=== PATIENT | male | born 1965 | race African-American/Black ===

== ENCOUNTER 2016-10-28 11:44 | Emergency (ER) | payer OTHER ==
[2016-10-28] MEDS ORDERED: IPRATROPIUM-ALBUTEROL 3 ML NEB INHALATION STA (12:18)
--- NOTE | 2016-10-28 12:18 | ED ---
General Adult HPI - General Chief complaint: Upper Respiratory Infection Stated complaint: Dizzy/sweats Time Seen by Provider: 10/28/16 11:50 Source: patient, RN notes reviewed Mode of arrival: ambulatory Limitations: no limitations - History of Present Illness Initial comments: This is a 51-year-old male with past medical history significant for diabetes hypertension and a previous heart attack. Patient comes in today because he has been having cold and hot sweats and been coughing a lot. Patient states the cough is a dry cough he's had no sputum production. Patient states he doesn 't know she's had a temperature as he doesn't own a thermometer. Patient denies any chest pain or palpitations. Patient denies being short of breath. Patient does admit that he is much more fatigued than normal. Patient denies any abdominal pain. Patient denies any nausea vomiting or diarrhea. Patient denies any back pain. Patient denies any dysuria hematuria urinary frequency. Patient denies being lightheaded dizzy or having any near syncopal episodes. - Related Data Home Medications Medication Instructions Recorded Confirmed Aspirin 81 mg PO DAILY 09/11/15 10/28/16 Atenolol 25 mg PO BID 09/11/15 10/28/16 Insulin Glargine [Lantus] 50 unit SQ DAILY 09/11/15 10/28/16 Insulin Glulisine [Apidra] 5 unit SQ AC-TID 09/11/15 10/28/16 Latanoprost Ophth [Xalatan 0.005%] 1 drops RIGHT EYE HS 09/11/15 10/28/16 Lisinopril [Zestril] 20 mg PO DAILY 09/11/15 10/28/16 amLODIPine [Norvasc] 10 mg PO DAILY 09/11/15 10/28/16 metFORMIN HCL [Glucophage] 500 mg PO BID 09/11/15 10/28/16 Brimonidine Tartrate [Alphagan P 1 drops RIGHT EYE TID 10/28/16 10/28/16 0.2% Ophth Soln] Glimepiride [Amaryl] 1 mg PO AC-BRKFST 10/28/16 10/28/16 Insulin Glulisine [Apidra] See Protocol SQ AC-TID 02/07/17 02/07/17 Previous Rx's Medication Instructions Recorded Albuterol Inhaler [Ventolin Hfa 1 - 2 puff INHALATION Q6HR PRN #2 10/28/16 Inhaler] puff Azithromycin [Zithromax Tri-Roderick] 500 mg PO DAILY #3 tab 10/28/16 Allergies Allergy/AdvReac Type Severity Reaction Status Date / Time ibuprofen Allergy Swelling Verified 10/28/16 12:19 pregabalin [From Lyrica] Allergy Swelling Verified 10/28/16 12:19 Review of Systems ROS Statement: Those systems with pertinent positive or pertinent negative responses have been documented in the HPI. ROS Other: All systems not noted in ROS Statement are negative. Past Medical History Past Medical History: Diabetes Mellitus, Hypertension Additional Past Medical History / Comment(s): uvitis glaucoma History of Any Multi-Drug Resistant Organisms: None Reported Past Surgical History: Hernia Repair Additional Past Surgical History / Comment(s): eye surg implant Past Psychological History: No Psychological Hx Reported Smoking Status: Former smoker Past Alcohol Use History: Rare Past Drug Use History: Marijuana General Exam - General Exam Comments Initial Comments: GENERAL: Patient is well-developed and well-nourished. Patient is nontoxic and well- hydrated and is in mild distress. ENT: Neck is soft and supple. No significant lymphadenopathy is noted. Oropharynx is clear. Moist mucous membranes. Neck has full range of motion without eliciting any pain. EYES: The sclera were anicteric and conjunctiva were pink and moist. Extraocular movements were intact and pupils were equal round and reactive to light. Eyelids were unremarkable. PULMONARY: Patient has a history wheezing CARDIOVASCULAR: There is a regular rate and rhythm without any murmurs gallops or rubs. ABDOMEN: Soft and nontender with normal bowel sounds. No palpable organomegaly was noted. There is no palpable pulsatile mass. SKIN: Skin is clear with no lesions or rashes and otherwise unremarkable. NEUROLOGIC: Patient is alert and oriented x3. Cranial nerves II through XII are grossly intact. Motor and sensory are also intact. Normal speech, volume and content. Symmetrical smile. MUSCULOSKELETAL: Normal extremities with adequate strength and full range of motion. LYMPHATICS: No significant lymphadenopathy is noted PSYCHIATRIC: Normal psychiatric evaluation. Limitations: no limitations Course Vital Signs 10/28/16 10/28/16 10/28/16 11:48 12:56 13:01 Temperature 97.4 F L Pulse Rate 63 64 68 Respiratory 17 Rate Blood Pressure 165/85 O2 Sat by Pulse 97 Oximetry 10/28/16 13:35 Temperature 98.3 F Pulse Rate 63 Respiratory 20 Rate Blood Pressure 147/83 O2 Sat by Pulse 96 Oximetry Medical Decision Making - Medical Decision Making EKG shows sinus bradycardia 57 bpm UT interval is 154 QRS is 82 QT interval 418 QTC is 406. Patient has T-wave inversions in leads II, III, and F aVF and leads V4 V5 and V6. After the patient received an albuterol treatment the wheezing was completely resolved. She stated he felt back to his baseline - Lab Data Result diagrams: 10/28/16 12:41 10/28/16 12:41 Lab Results 10/28/16 10/28/16 10/28/16 Range/Units 12:41 12:41 12:41 WBC 5.8 (3.8-10.6) k/uL RBC 4.66 (4.30-5.90) m/uL Hgb 14.2 (13.0-17.5) gm/dL Hct 42.1 (39.0-53.0) % MCV 90.3 (80.0-100.0) fL MCH 30.5 (25.0-35.0) pg MCHC 33.8 (31.0-37.0) g/dL RDW 12.4 (11.5-15.5) % Plt Count 256 (150-450) k/uL Neutrophils % 51 % Lymphocytes % 36 % Monocytes % 7 % Eosinophils % 3 % Basophils % 1 % Neutrophils # 3.0 (1.3-7.7) k/uL Lymphocytes # 2.1 (1.0-4.8) k/uL Monocytes # 0.4 (0-1.0) k/uL Eosinophils # 0.2 (0-0.7) k/uL Basophils # 0.0 (0-0.2) k/uL Sodium 137 (137-145) mmol/L Potassium 4.4 (3.5-5.1) mmol/L Chloride 100 (98-107) mmol/L Carbon Dioxide 26 (22-30) mmol/L Anion Gap 11 mmol/L BUN 14 (9-20) mg/dL Creatinine 0.97 (0.66-1.25) mg/dL Est GFR (MDRD) Af Amer >60 (>60 ml/min/1.73 sqM) Est GFR (MDRD) Non-Af >60 (>60 ml/min/1.73 sqM) Glucose 276 H (74-99) mg/dL Calcium 9.4 (8.4-10.2) mg/dL Magnesium 1.8 (1.6-2.3) mg/dL Total Bilirubin 0.9 (0.2-1.3) mg/dL AST 26 (17-59) U/L ALT 43 (21-72) U/L Alkaline Phosphatase 74 (38-126) U/L Total Creatine Kinase 266 H (55-170) U/L CK-MB (CK-2) 1.9 (0.0-2.4) ng/mL CK-MB (CK-2) Rel Index 0.7 Troponin I <0.012 (0.000-0.034) ng/mL NT-Pro-B Natriuret Pep pg/mL Total Protein 7.3 (6.3-8.2) g/dL Albumin 4.2 (3.5-5.0) g/dL 10/28/16 Range/Units 12:41 WBC (3.8-10.6) k/uL RBC (4.30-5.90) m/uL Hgb (13.0-17.5) gm/dL Hct (39.0-53.0) % MCV (80.0-100.0) fL MCH (25.0-35.0) pg MCHC (31.0-37.0) g/dL RDW (11.5-15.5) % Plt Count (150-450) k/uL Neutrophils % % Lymphocytes % % Monocytes % % Eosinophils % % Basophils % % Neutrophils # (1.3-7.7) k/uL Lymphocytes # (1.0-4.8) k/uL Monocytes # (0-1.0) k/uL Eosinophils # (0-0.7) k/uL Basophils # (0-0.2) k/uL Sodium (137-145) mmol/L Potassium (3.5-5.1) mmol/L Chloride (98-107) mmol/L Carbon Dioxide (22-30) mmol/L Anion Gap mmol/L BUN (9-20) mg/dL Creatinine (0.66-1.25) mg/dL Est GFR (MDRD) Af Amer (>60 ml/min/1.73 sqM) Est GFR (MDRD) Non-Af (>60 ml/min/1.73 sqM) Glucose (74-99) mg/dL Calcium (8.4-10.2) mg/dL Magnesium (1.6-2.3) mg/dL Total Bilirubin (0.2-1.3) mg/dL AST (17-59) U/L ALT (21-72) U/L Alkaline Phosphatase (38-126) U/L Total Creatine Kinase (55-170) U/L CK-MB (CK-2) (0.0-2.4) ng/mL CK-MB (CK-2) Rel Index Troponin I (0.000-0.034) ng/mL NT-Pro-B Natriuret Pep 61 pg/mL Total Protein (6.3-8.2) g/dL Albumin (3.5-5.0) g/dL Disposition Clinical Impression: Bronchitis Disposition: HOME SELF-CARE Prescriptions: Albuterol Inhaler [Ventolin Hfa Inhaler] 1 - 2 puff INHALATION Q6HR PRN #2 puff PRN Reason: Difficulty breathing Azithromycin [Zithromax Tri-Roderick] 500 mg PO DAILY #3 tab Referrals: Betito Romo MD [Primary Care Provider] - 1-2 days Time of Disposition: 14:26
[2016-10-28 12:51] LABS: Basophils % (A) 1 %; CH 31.3; CHCM 34.8; Eosinophils # (A) 0.2 k/uL (0-0.7); Eosinophils % (A) 3 %; HCT 42.1 % (39.0-53.0); HDW 2.57; HGB 14.2 gm/dL (13.0-17.5); Luc # (Auto) 0.18; Luc % (Auto) 3; Lymphocytes # (A) 2.1 k/uL (1.0-4.8); Lymphocytes % (A) 36 %; MCH 30.5 pg (25.0-35.0); MCHC 33.8 g/dL (31.0-37.0); MCV 90.3 fL (80.0-100.0); Monocytes # (A) 0.4 k/uL (0-1.0); Monocytes % (A) 7 %; Neutrophils % (A) 51 %; RBC 4.66 m/uL (4.30-5.90); RDW 12.4 % (11.5-15.5); WBC 5.8 k/uL (3.8-10.6); WBC (Perox) 6.05
[2016-10-28 13:06] LABS: ALT 43 U/L (21-72); AST 26 U/L (17-59); Alkaline Phosphatase 74 U/L (38-126); Anion Gap 11 mmol/L; Blood Urea Nitrogen 14 mg/dL (9-20); Calcium 9.4 mg/dL (8.4-10.2); Carbon Dioxide 26 mmol/L (22-30); Chloride 100 mmol/L (98-107); Glucose 276 mg/dL (74-99); Magnesium 1.8 mg/dL (1.6-2.3); Non-African American GFR(MDRD) >60 (>60 ml/min/1.73 sqM); Potassium 4.4 mmol/L (3.5-5.1); Sodium 137 mmol/L (137-145); Total Bilirubin 0.9 mg/dL (0.2-1.3); Total Protein 7.3 g/dL (6.3-8.2)
[2016-10-28 13:15] LABS: Creatine Kinase 266 U/L (55-170)
[2016-10-28 13:28] LABS: Creatine Kinase MB 1.9 ng/mL (0.0-2.4); Troponin I <0.012 ng/mL (0.000-0.034)
--- NOTE | 2016-10-28 13:39 | XR ---
EXAMINATION TYPE: XR chest 2V DATE OF EXAM: 10/28/2016 1:32 PM COMPARISON: 06/13/2015 HISTORY: Chest pain and cough FINDINGS: The lungs are clear and there is no pneumothorax, pleural effusion, or focal pneumonia. IMPRESSION: 1. No acute process.
[2016-10-28 14:50] VITALS: BP 134/84; RESP 18; TEMP 98
[2016-10-28 14:51] VITALS: PULSE 70
[2016-10-29 18:18] LABS: Hemoglobin A1C 10.2 % (4.2-6.1)
== END 2016-10-28 14:55 | disposition home or self-care (01) ==
LOC: EC 11:44
DX: J40 Bronchitis, not specified as acute or chronic (principal); R00.1 Bradycardia, unspecified; E11.9 Type 2 diabetes mellitus without complications; I10 Essential (primary) hypertension; Z87.891 Personal history of nicotine dependence; Z79.4 Long term (current) use of insulin; Z79.899 Other long term (current) drug therapy; Z88.6 Allergy status to analgesic agent; Z88.8 Allergy status to other drugs, medicaments and biological substances; Z79.82 Long term (current) use of aspirin
CPT/HCPCS: 36415; 71020; 80053; 82550; 82553; 83036; 83735; 83880; 84484; 85025; 87040; 93005; 94640; 99284

== ENCOUNTER 2017-04-13 13:32 | Emergency (ER) | payer OTHER ==
[2017-04-13 13:43] VITALS: RESP 18
[2017-04-13] MEDS ORDERED: ORPHENADRINE 30 MG/ML 2 ML VIAL IM STA (13:50)
--- NOTE | 2017-04-13 14:16 | ED ---
Back Pain HPI - General Chief Complaint: Back Pain/Injury Stated Complaint: back & knee pain Time Seen by Provider: 04/13/17 13:45 Source: patient, RN notes reviewed, old records reviewed Limitations: no limitations - History of Present Illness Initial Comments: This is a 51-year-old male presents emergency Department chief complaint of lower back pain and left knee pain after a fall last week. Patient reports that he tripped and twisted and fell on his left knee and back. Patient reports that he has a history of patella repair 10 years ago. He reports that he may have caused an injury to his knee. He reports there is been some swelling over the lateral aspect of the knee. He states that he was in the pharmacy picking up his medications when he could not take the pain anymore and felt that he needed basis seen. Patient reports that he has no saddle anesthesias, urinary or bowel incontinence, or blood in his urinary abdominal pain. Reports normal bowel movements. He states that he has no chest pain, shortness of breath, nausea or vomiting or any other symptoms. - Related Data Home Medications Medication Instructions Recorded Confirmed Aspirin 81 mg PO DAILY 09/11/15 10/28/16 Atenolol 25 mg PO BID 09/11/15 10/28/16 Insulin Glargine [Lantus] 50 unit SQ DAILY 09/11/15 10/28/16 Insulin Glulisine [Apidra] 5 unit SQ AC-TID 09/11/15 10/28/16 Latanoprost Ophth [Xalatan 0.005%] 1 drops RIGHT EYE HS 09/11/15 10/28/16 Lisinopril [Zestril] 20 mg PO DAILY 09/11/15 10/28/16 amLODIPine [Norvasc] 10 mg PO DAILY 09/11/15 10/28/16 metFORMIN HCL [Glucophage] 500 mg PO BID 09/11/15 10/28/16 Brimonidine Tartrate [Alphagan P 1 drops RIGHT EYE TID 10/28/16 10/28/16 0.2% Ophth Soln] Glimepiride [Amaryl] 1 mg PO AC-BRKFST 10/28/16 10/28/16 Insulin Glulisine [Apidra] See Protocol SQ AC-TID 10/28/16 10/28/16 Previous Rx's Medication Instructions Recorded Albuterol Inhaler [Ventolin Hfa 1 - 2 puff INHALATION Q6HR PRN #2 10/28/16 Inhaler] puff Azithromycin [Zithromax Tri-Roderick] 500 mg PO DAILY #3 tab 10/28/16 Cyclobenzaprine [Flexeril] 10 mg PO TID #20 tab 04/13/17 HYDROcodone/APAP 5-325MG [[place] 1 tab PO Q6HR PRN #15 tab 04/13/17 5-325] Naproxen 500 mg PO BID #20 tablet 04/13/17 Allergies Allergy/AdvReac Type Severity Reaction Status Date / Time ibuprofen Allergy Swelling Verified 04/13/17 13:43 pregabalin [From Lyrica] Allergy Swelling Verified 04/13/17 13:43 Review of Systems ROS Statement: Those systems with pertinent positive or pertinent negative responses have been documented in the HPI. ROS Other: All systems not noted in ROS Statement are negative. Past Medical History Past Medical History: Diabetes Mellitus, Hyperlipidemia, Hypertension Additional Past Medical History / Comment(s): uvitis glaucoma History of Any Multi-Drug Resistant Organisms: None Reported Past Surgical History: Hernia Repair Additional Past Surgical History / Comment(s): eye surg implant Past Psychological History: No Psychological Hx Reported Smoking Status: Former smoker Past Alcohol Use History: Rare Past Drug Use History: Marijuana General Exam - General Exam Comments Initial Comments: Well-appearing 51-year-old male. No acute distress. Limitations: no limitations General appearance: alert, in no apparent distress Head exam: Present: atraumatic, normocephalic, normal inspection Eye exam: Present: normal appearance, PERRL, EOMI. Absent: scleral icterus, conjunctival injection, periorbital swelling ENT exam: Present: normal exam, mucous membranes moist Neck exam: Present: normal inspection. Absent: tenderness, meningismus, lymphadenopathy Respiratory exam: Present: normal lung sounds bilaterally. Absent: respiratory distress, wheezes, rales, rhonchi, stridor Cardiovascular Exam: Present: regular rate, normal rhythm, normal heart sounds. Absent: systolic murmur, diastolic murmur, rubs, gallop, clicks GI/Abdominal exam: Present: soft, normal bowel sounds. Absent: distended, tenderness, guarding, rebound, rigid Extremities exam: Present: normal inspection, full ROM, normal capillary refill , other (Evidence of well-healed scars from bilateral knees. Patient has some swelling over the lateral aspect of the left knee. Patient is able to bear weight.). Absent: tenderness, pedal edema, joint swelling, calf tenderness Back exam: Present: normal inspection, tenderness, paraspinal tenderness, vertebral tenderness (Lumbar vertebral tenderness and paraspinal muscle spasm.) Neurological exam: Present: alert, oriented X3, CN II-XII intact Psychiatric exam: Present: normal affect, normal mood Skin exam: Present: warm, dry, intact, normal color. Absent: rash Course Vital Signs 04/13/17 13:40 Temperature 99 F Pulse Rate 53 L Respiratory 18 Rate Blood Pressure 186/82 O2 Sat by Pulse 100 Oximetry Medical Decision Making - Medical Decision Making This is a 51-year-old male presents emergency Department chief complaint of lower back pain and left knee pain after a fall last week. Patient reports that he tripped and twisted and fell on his left knee and back. Patient reports that he has a history of patella repair 10 years ago. He reports that he may have caused an injury to his knee. He reports there is been some swelling over the lateral aspect of the knee. He states that he was in the pharmacy picking up his medications when he could not take the pain anymore and felt that he needed basis seen. Patient has full range of motion of the knee and lumbar spine. There is some evidence of paraspinal muscle spasm. Patient was given IM Norflex. Patient will be discharged with a prescription for pain medication and anti-inflammatory medicine as well as muscle relaxers. Patient agrees to treatment plan will comply. Return parameters were discussed. Discussed also following up with orthopedic physician. - Radiology Data Radiology results: report reviewed Degenerative disc disease and additional findings show no acute fracture or subluxation. Vascular calcification within the aorta and iliac region. Slight spinal curvature. The x-ray was reviewed and shows negative for any acute processes has osteoarthritis. Disposition Clinical Impression: Osteoarthritis of left knee, Lower back pain Disposition: HOME SELF-CARE Condition: Good Instructions: Acute Low Back Pain (ED), Osteoarthritis (ED) Additional Instructions: Patient advised to rest, ice, and elevate extremity. Also apply a warm heating pad over her back. Take some pain medication and muscle relaxers as prescribed. Return to the emergency department if any alarming signs or symptoms occur. Also recommending following up with orthopedic physician. Prescriptions: Cyclobenzaprine [Flexeril] 10 mg PO TID #20 tab HYDROcodone/APAP 5-325MG [[place] 5-325] 1 tab PO Q6HR PRN #15 tab PRN Reason: Pain Naproxen 500 mg PO BID #20 tablet Referrals: Betito Romo MD [Primary Care Provider] - 1-2 days Hansel Treadwell MD [STAFF PHYSICIAN] - 1-2 days Time of Disposition: 14:38
--- NOTE | 2017-04-13 14:32 | XR ---
EXAMINATION TYPE: XR knee complete LT , 3 VIEWS DATE OF EXAM ORDERED: 04/13/2017 HISTORY: Pain. COMPARISON: None. FINDINGS: There is peaking of intercondylar spines. There is mild medial joint space loss. There is no chondrocalcinosis. There is no joint effusion. Note is made of vascular calcification. IMPRESSION: OSTEOARTHRITIS.
--- NOTE | 2017-04-13 14:34 | XR ---
Lumbar spine HISTORY: Trauma and pain 3 views of the lumbar spine No comparisons There is spondylosis present. Lumbar vertebral bodies show preserved height and alignment. Mild loss of disc height and intervertebral levels. There is vascular calcification within the aortoiliac regio ns. There may be a slight spinal curvature. The patient may be rotated. IMPRESSION: Degenerative disc disease and additional findings above. No acute fracture or subluxation is evident. Consider bone scan or MRI for increased sensitivity as indicated.
[2017-04-13] MEDS ORDERED: ACET/COD 300 MG/30 MG STARTER PACK 6 TAB BTL PO STA (14:41)
[2017-04-13 14:49] VITALS: BP 177/84; PULSE 51; TEMP 98.1
== END 2017-04-13 14:50 | disposition home or self-care (01) ==
LOC: EC 13:32
DX: M17.12 Unilateral primary osteoarthritis, left knee (principal); M54.5 Low back pain; E11.9 Type 2 diabetes mellitus without complications; I10 Essential (primary) hypertension; Z87.891 Personal history of nicotine dependence; Z88.6 Allergy status to analgesic agent; Z88.8 Allergy status to other drugs, medicaments and biological substances; Z79.82 Long term (current) use of aspirin; Z79.4 Long term (current) use of insulin; Z79.84 Long term (current) use of oral hypoglycemic drugs; Z79.899 Other long term (current) drug therapy
CPT/HCPCS: 72100; 73562; 99284; 96372; J2360

== ENCOUNTER 2017-11-20 14:44 | Emergency (ER) | payer MEDICARE, OTHER ==
[2017-11-20] MEDS ORDERED: DICYCLOMINE 10 MG/ML 2 ML AMP IM STA (17:01)
[2017-11-20] MEDS ORDERED: ONDANSETRON 4 MG/2 ML VIAL IVP STA (17:01)
[2017-11-20] MEDS ORDERED: RX INFO: IV CONTRAST WAS GIVEN 1 EACH MISC MISCELLANE PRN (17:01)
[2017-11-20] MEDS ORDERED: SODIUM CHLORIDE 0.9% 500 ML IV STA (17:01)
[2017-11-20] MEDS ORDERED: FAMOTIDINE 20 MG/2 ML VIAL IV STA (17:02)
--- NOTE | 2017-11-20 17:04 | ED ---
General Adult HPI - General Chief complaint: Abdominal Pain Stated complaint: Abd pain Time Seen by Provider: 11/20/17 16:56 Source: patient, RN notes reviewed Mode of arrival: ambulatory Limitations: no limitations - History of Present Illness Initial comments: Patient is a pleasant 52-year-old diabetic male presenting to the emergency Department with abdominal discomfort. Patient has had some symptoms for the past few weeks, usually at nighttime. Symptoms have been worse today and more steady. This morning patient did have 3 cups of coffee all over by a Barbara cheese steak, and fried potatoes and bread. Burning has been more diffuse today. Previously discomfort was more in the upper left abdomen. No history of similar symptoms prior to the past few weeks. No fevers. Patient has nausea without vomiting. No constipation or diarrhea. - Related Data Home Medications Medication Instructions Recorded Confirmed Aspirin 81 mg PO DAILY 09/11/15 11/20/17 Atenolol 25 mg PO BID 09/11/15 11/20/17 Insulin Glargine [Lantus] 50 unit SQ HS 09/11/15 11/20/17 Insulin Glulisine [Apidra] 5 unit SQ AC-TID 09/11/15 11/20/17 Latanoprost Ophth [Xalatan 0.005%] 1 drops RIGHT EYE HS 09/11/15 11/20/17 Lisinopril [Zestril] 20 mg PO DAILY 09/11/15 11/20/17 amLODIPine [Norvasc] 10 mg PO DAILY 09/11/15 11/20/17 metFORMIN HCL [Glucophage] 500 mg PO BID 09/11/15 11/20/17 Brimonidine Tartrate [Alphagan P 1 drops RIGHT EYE TID 10/28/16 11/20/17 0.2% Ophth Soln] Glimepiride [Amaryl] 1 mg PO AC-BRKFST 10/28/16 11/20/17 Insulin Glulisine [Apidra] See Protocol SQ AC-TID 10/28/16 11/20/17 Naproxen 500 mg PO BID PRN 11/20/17 11/20/17 Previous Rx's Medication Instructions Recorded Albuterol Inhaler [Ventolin Hfa 1 - 2 puff INHALATION Q6HR PRN #2 10/28/16 Inhaler] puff Cyclobenzaprine [Flexeril] 10 mg PO TID #20 tab 04/13/17 HYDROcodone/APAP 5-325MG [Martin 1 tab PO Q6HR PRN #15 tab 04/13/17 5-325] Famotidine [Pepcid] 20 mg PO BID #30 tablet 11/20/17 Metoclopramide HCl [Reglan] 10 mg PO Q6HR PRN #15 tablet 11/20/17 Allergies Allergy/AdvReac Type Severity Reaction Status Date / Time atorvastatin [From Lipitor] Allergy Swelling Verified 11/20/17 17:04 ibuprofen Allergy Swelling Verified 11/20/17 17:04 pregabalin [From Lyrica] Allergy Swelling Verified 11/20/17 17:04 Review of Systems ROS Statement: Those systems with pertinent positive or pertinent negative responses have been documented in the HPI. ROS Other: All systems not noted in ROS Statement are negative. Constitutional: Denies: fever Eyes: Denies: eye pain ENT: Denies: ear pain Respiratory: Denies: cough Cardiovascular: Denies: chest pain Endocrine: Denies: fatigue Gastrointestinal: Reports: abdominal pain, nausea. Denies: vomiting, diarrhea, constipation Genitourinary: Denies: dysuria Musculoskeletal: Denies: back pain Skin: Denies: rash Neurological: Denies: weakness Past Medical History Past Medical History: Diabetes Mellitus, Hyperlipidemia, Hypertension Additional Past Medical History / Comment(s): uvitis glaucoma History of Any Multi-Drug Resistant Organisms: None Reported Past Surgical History: Hernia Repair, Orthopedic Surgery Additional Past Surgical History / Comment(s): eye surg implant , bilateral knee Past Psychological History: No Psychological Hx Reported Smoking Status: Former smoker Past Alcohol Use History: Rare Past Drug Use History: Marijuana General Exam Limitations: no limitations General appearance: alert, in no apparent distress Head exam: Present: atraumatic Eye exam: Present: normal appearance, PERRL ENT exam: Present: normal oropharynx Neck exam: Present: normal inspection Respiratory exam: Present: normal lung sounds bilaterally Cardiovascular Exam: Present: regular rate, normal rhythm Expanded Peripheral pulses: 2+: Posterior Tibialis (R), Posterior Tibialis (L) GI/Abdominal exam: Present: soft, tenderness (Mild diffuse tenderness, more moderate towards the epigastrium.), normal bowel sounds. Absent: distended, guarding, rebound, rigid, pulsatile mass Extremities exam: Present: normal inspection. Absent: pedal edema, calf tenderness Neurological exam: Present: alert Psychiatric exam: Present: normal affect, normal mood Skin exam: Present: normal color Course Vital Signs 11/20/17 11/20/17 11/20/17 14:59 17:21 18:29 Temperature 98 F Pulse Rate 60 54 L 54 L Respiratory 16 18 18 Rate Blood Pressure 151/69 170/75 186/86 O2 Sat by Pulse 100 98 98 Oximetry 11/20/17 19:06 Temperature Pulse Rate 51 L Respiratory 18 Rate Blood Pressure 177/81 O2 Sat by Pulse 97 Oximetry Medical Decision Making - Medical Decision Making Patient reevaluated and resting comfortably in bed. Abdomen soft and nontender. Patient states symptoms have improved however not resolved with medication. Patient does request something to coat her stomach prior to discharge. Patient is updated on results and need for follow-up. Patient adds he will follow-up with his doctor on Thursday. - Lab Data Result diagrams: 11/20/17 17:19 11/20/17 17:19 Lab Results 11/20/17 11/20/17 11/20/17 Range/Units 17:19 17:19 17:19 WBC 7.0 (3.8-10.6) k/uL RBC 4.20 L (4.30-5.90) m/uL Hgb 12.5 L (13.0-17.5) gm/dL Hct 37.7 L (39.0-53.0) % MCV 89.7 (80.0-100.0) fL MCH 29.8 (25.0-35.0) pg MCHC 33.2 (31.0-37.0) g/dL RDW 12.6 (11.5-15.5) % Plt Count 259 (150-450) k/uL Neutrophils % 40 % Lymphocytes % 45 % Monocytes % 6 % Eosinophils % 5 % Basophils % 1 % Neutrophils # 2.8 (1.3-7.7) k/uL Lymphocytes # 3.2 (1.0-4.8) k/uL Monocytes # 0.4 (0-1.0) k/uL Eosinophils # 0.3 (0-0.7) k/uL Basophils # 0.1 (0-0.2) k/uL PT 9.9 (9.0-12.0) sec INR 1.0 (<1.2) APTT 22.2 (22.0-30.0) sec Sodium 139 (137-145) mmol/L Potassium 4.7 (3.5-5.1) mmol/L Chloride 103 (98-107) mmol/L Carbon Dioxide 28 (22-30) mmol/L Anion Gap 8 mmol/L BUN 16 (9-20) mg/dL Creatinine 1.10 (0.66-1.25) mg/dL Est GFR (MDRD) Af Amer >60 (>60 ml/min/1.73 sqM) Est GFR (MDRD) Non-Af >60 (>60 ml/min/1.73 sqM) Glucose 157 H (74-99) mg/dL Calcium 10.3 H (8.4-10.2) mg/dL Total Bilirubin 0.6 (0.2-1.3) mg/dL AST 27 (17-59) U/L ALT 40 (21-72) U/L Alkaline Phosphatase 64 (38-126) U/L Total Protein 7.1 (6.3-8.2) g/dL Albumin 4.2 (3.5-5.0) g/dL Amylase 122 H (30-110) U/L Lipase 152 (23-300) U/L Urine Color Urine Appearance (Clear) Urine pH (5.0-8.0) Ur Specific [place] (1.001-1.035) Urine Protein (Negative) Urine Glucose (UA) (Negative) Urine Ketones (Negative) Urine Blood (Negative) Urine Nitrite (Negative) Urine Bilirubin (Negative) Urine Urobilinogen (<2.0) mg/dL Ur Leukocyte Esterase (Negative) Urine RBC (0-5) /hpf Urine WBC (0-5) /hpf Ur Squamous Epith Cells (0-4) /hpf Urine Bacteria (None) /hpf Hyaline Casts (0-2) /lpf Urine Mucus (None) /hpf 11/20/17 Range/Units 17:19 WBC (3.8-10.6) k/uL RBC (4.30-5.90) m/uL Hgb (13.0-17.5) gm/dL Hct (39.0-53.0) % MCV (80.0-100.0) fL MCH (25.0-35.0) pg MCHC (31.0-37.0) g/dL RDW (11.5-15.5) % Plt Count (150-450) k/uL Neutrophils % % Lymphocytes % % Monocytes % % Eosinophils % % Basophils % % Neutrophils # (1.3-7.7) k/uL Lymphocytes # (1.0-4.8) k/uL Monocytes # (0-1.0) k/uL Eosinophils # (0-0.7) k/uL Basophils # (0-0.2) k/uL PT (9.0-12.0) sec INR (<1.2) APTT (22.0-30.0) sec Sodium (137-145) mmol/L Potassium (3.5-5.1) mmol/L Chloride (98-107) mmol/L Carbon Dioxide (22-30) mmol/L Anion Gap mmol/L BUN (9-20) mg/dL Creatinine (0.66-1.25) mg/dL Est GFR (MDRD) Af Amer (>60 ml/min/1.73 sqM) Est GFR (MDRD) Non-Af (>60 ml/min/1.73 sqM) Glucose (74-99) mg/dL Calcium (8.4-10.2) mg/dL Total Bilirubin (0.2-1.3) mg/dL AST (17-59) U/L ALT (21-72) U/L Alkaline Phosphatase (38-126) U/L Total Protein (6.3-8.2) g/dL Albumin (3.5-5.0) g/dL Amylase (30-110) U/L Lipase (23-300) U/L Urine Color Yellow Urine Appearance Clear (Clear) Urine pH 6.0 (5.0-8.0) Ur Specific [place] 1.025 (1.001-1.035) Urine Protein 1+ H (Negative) Urine Glucose (UA) 3+ H (Negative) Urine Ketones Trace H (Negative) Urine Blood Negative (Negative) Urine Nitrite Negative (Negative) Urine Bilirubin Negative (Negative) Urine Urobilinogen 3.0 (<2.0) mg/dL Ur Leukocyte Esterase Moderate H (Negative) Urine RBC 4 (0-5) /hpf Urine WBC 16 H (0-5) /hpf Ur Squamous Epith Cells 2 (0-4) /hpf Urine Bacteria Rare H (None) /hpf Hyaline Casts 5 H (0-2) /lpf Urine Mucus Moderate H (None) /hpf - Radiology Data Radiology results: report reviewed (Computed tomography scan of the abdomen pelvis shows no acute process) Disposition Clinical Impression: Abdominal pain Disposition: HOME SELF-CARE Condition: Stable Instructions: Abdominal Pain (ED) Additional Instructions: Please follow-up with your primary care physician in the next day or 2 for recheck. Return for increased pain, fevers, worsening or changing symptoms or other concerns. Prescriptions: Famotidine [Pepcid] 20 mg PO BID #30 tablet Metoclopramide HCl [Reglan] 10 mg PO Q6HR PRN #15 tablet PRN Reason: Nausea Referrals: Betito Romo MD [Primary Care Provider] - 1-2 days Time of Disposition: 19:33
[2017-11-20 17:22] VITALS: RESP 18
[2017-11-20 17:36] LABS: Basophils # (A) 0.1 k/uL (0-0.2); Basophils % (A) 1 %; Eosinophils # (A) 0.3 k/uL (0-0.7); Eosinophils % (A) 5 %; HCT 37.7 % (39.0-53.0); HGB 12.5 gm/dL (13.0-17.5); Lymphocytes # (A) 3.2 k/uL (1.0-4.8); Lymphocytes % (A) 45 %; MCH 29.8 pg (25.0-35.0); MCHC 33.2 g/dL (31.0-37.0); MCV 89.7 fL (80.0-100.0); Mean Platelet Volume 7.5; Monocytes # (A) 0.4 k/uL (0-1.0); Monocytes % (A) 6 %; Neutrophils # (A) 2.8 k/uL (1.3-7.7); Neutrophils % (A) 40 %; Platelet Count 259 k/uL (150-450); RDW 12.6 % (11.5-15.5)
[2017-11-20 17:38] LABS: Appearance,Urine Clear (Clear); Bacteria,Urine Rare /hpf; Bilirubin,Urine Negative (Negative); Blood,Urine Negative (Negative); Color,Urine Yellow; Glucose,Urine (UA) 3+ (Negative); Hyaline Casts,Urine 5 /lpf (0-2); Ketones,Urine Trace (Negative); Leukocyte Esterase,Urine Moderate (Negative); Mucus,Urine Moderate /hpf; Protein,Urine 1+ (Negative); RBC,Urine 4 /hpf (0-5); Specific Gravity,Urine 1.025 (1.001-1.035); Squamous Epithelial Cell,Urine 2 /hpf (0-4); WBC,Urine 16 /hpf (0-5)
[2017-11-20 17:53] LABS: ALT 40 U/L (21-72); AST 27 U/L (17-59); Albumin 4.2 g/dL (3.5-5.0); Alkaline Phosphatase 64 U/L (38-126); Amylase 122 U/L (30-110); Anion Gap 8 mmol/L; Blood Urea Nitrogen 16 mg/dL (9-20); Calcium 10.3 mg/dL (8.4-10.2); Carbon Dioxide 28 mmol/L (22-30); Chloride 103 mmol/L (98-107); Glucose 157 mg/dL (74-99); Lipase 152 U/L (23-300); Partial Thromboplastin Time 22.2 sec (22.0-30.0); Potassium 4.7 mmol/L (3.5-5.1); Prothrombin Time 9.9 sec (9.0-12.0); Sodium 139 mmol/L (137-145); Total Bilirubin 0.6 mg/dL (0.2-1.3); Total Protein 7.1 g/dL (6.3-8.2)
[2017-11-20] MEDS ORDERED: MORPHINE SULFATE 4 MG/ML SYRINGE IVP STA (18:28)
--- NOTE | 2017-11-20 18:47 | CT ---
EXAMINATION TYPE: CT abdomen pelvis w con DATE OF EXAM: 11/20/2017 COMPARISON: NONE HISTORY: Generalized abdominal burning x 1 month. Nausea and dark urine and dark stools. CT DLP: 1575 mGycm Automated exposure control for dose reduction was used. TECHNIQUE: Helical acquisition of images was performed from the lung bases through the pelvis. CONTRAST: Performed without Oral Contrast and with IV Contrast, patient injected with 100 mL of Omnipaque 300. FINDINGS: Lung bases are clear of infiltrate. There is no pleural effusion. Liver spleen pancreas gallbladder appear normal. Bile ducts are not dilated. There is no adrenal mass. Kidneys show satisfactory contrast opacification. There is no hydronephrosi s. There is no retroperitoneal adenopathy. There is no ascites. Appendix appears normal. Bladder dist ends smoothly. There is no evidence of a pelvic mass. There is no free fluid in the pelvis. I see no intestinal wall thickening. There are no dilated loops. The bony structures appear intact. There is n o sign of free air. There is no sign of a hernia. IMPRESSION: NORMAL APPENDIX. NO SIGN OF ACUTE ABDOMEN AND PELVIS. I DO NOT SEE A CAUSE FOR THE PATIENT'S SYMPTOMS .
[2017-11-20] MEDS ORDERED: MAG HYDROX/AL HYDROX/SIMETH 30 ML, HYOSCYAMINE ELIXIR 10 ML, CIMETIDINE HCL 300 MG, LID... PO STA ×4 (19:31)
[2017-11-20] MEDS ORDERED: ATENOLOL 25 MG TAB PO STA (20:01)
[2017-11-20] MEDS ORDERED: LISINOPRIL 10 MG TAB PO STA (20:01)
[2017-11-20 20:15] VITALS: BP 185/96; PULSE 54; TEMP 98.1
== END 2017-11-20 20:14 | disposition home or self-care (01) ==
LOC: EC 14:44
DX: R10.12 Left upper quadrant pain (principal); R11.0 Nausea; E11.9 Type 2 diabetes mellitus without complications; I10 Essential (primary) hypertension; Z87.891 Personal history of nicotine dependence; Z86.69 Personal history of other diseases of the nervous system and sense organs; Z79.82 Long term (current) use of aspirin; Z79.4 Long term (current) use of insulin; Z79.899 Other long term (current) drug therapy; Z88.8 Allergy status to other drugs, medicaments and biological substances; Z88.6 Allergy status to analgesic agent
CPT/HCPCS: 36415; 80053; 82150; 83690; 85025; 85610; 85730; 81001; 74177; 99284; 96374; 96375 ×2; 96361; 96372; J2270; J0500; J2405; Q9967

== ENCOUNTER 2017-12-08 11:33 | Day surgery (SDC) | payer MEDICARE, OTHER ==
[2017-12-08 13:23] VITALS: TEMP 97.5
[2017-12-08] MEDS ORDERED: INSULIN ASPART 100 UNIT/ML 1 ML 10 ML VIAL SQ ONE (13:28)
[2017-12-08 13:29] LABS: Glucose,Whole Blood 339 mg/dL (75-99)
[2017-12-08] MEDS ORDERED: LACTATED RINGERS 1,000 ML IV ONE (13:31)
[2017-12-08] MEDS ORDERED: GLYCOPYRROLATE 0.2 MG/ML 2 ML VIAL ONE (13:50)
[2017-12-08] MEDS ORDERED: LIDOCAINE 1% INJ 10MG/ML (20 ML MDV) ONE (13:50)
[2017-12-08] MEDS ORDERED: PROPOFOL 10 MG/ML 20 ML VIAL IV ONE (13:50)
[2017-12-08] MEDS ORDERED: fentaNYL (PF) 50 MCG/ML 2 ML AMP ONE (13:50)
[2017-12-08 14:29] LABS: Glucose,Whole Blood 275 mg/dL (75-99)
--- NOTE | 2017-12-08 14:31 | P.PCN ---
Date of Procedure: 12/08/17 Procedure(s) Performed: Procedures: 1. Esophagogastroduodenoscopy and biopsy. 2. Colonoscopy. Preoperative diagnosis: Burning abdominal pain and drop in hemoglobin. Postoperative diagnosis: 1. Small sliding hiatal hernia with no obvious esophagitis or complicated reflux disease. 2. Mild antral gastritis and duodenitis. 3. Normal colonoscopy. 4. Biopsies obtained from the duodenum, antrum and esophagus. Preparation: HalfLytely prep. Sedation: Was provided by anesthesia. Brief clinical history: The patient is a 52-year-old male who is scheduled for this evaluation because of burning abdominal pain and 2 g drop in his hemoglobin. The patient was in the emergency room earlier this month. CT of the abdomen did not show any obvious abnormalities. He was reported to have dark urine and stools at that time but the patient is saying that this was not a problem. No alarm symptoms Procedure: With the patient on his left lateral decubitus position and after informed consent and adequate sedation, I passed the Olympus-GIF 160 video upper endoscope through the cricopharyngeus down the esophagus GE junction was around 41 cm from the incisors and there was a small sliding hiatal hernia but no obvious esophagitis or complicated reflux disease. The endoscope was then passed into the stomach which was insufflated with air and inspected in detail including the retroflex view in the cardia. There was some mottling and erythema in the antrum but no ulcers or erosions. No pyloric channel ulcers. Duodenal bulb, post bulbar area and descending duodenum showed mottling, erythema and friability but no ulcers, erosions or bleeding. I obtained multiple biopsies from the duodenum, antrum and esophagus then the endoscope was withdrawn and I proceeded with the colonoscopy. Perianal area did not show any fissures or fistulas. There were no masses felt on digital rectal examination. The Olympus CFQ 160L video colonoscope was then inserted in the rectum in the usual fashion and advanced to the cecum. The colon showed healthy mucosa with no edema, erythema, friability, ulceration, exudation or spontaneous bleeding. No polyps or tumors were seen. No obvious diverticular disease or other pathology. I retroflexed the endoscope in the rectum before the endoscope was withdrawn. The patient tolerated the procedure well. Plan: The patient was reassured. Will await pathology results. Further plans can be made based on his course and biopsy results. He will follow-up with you as planned and I will keep you updated on his progress.
[2017-12-08 14:42] VITALS: BP 154/86; PULSE 94; RESP 16
== END 2017-12-08 14:53 | disposition home or self-care (01) ==
LOC: ORWHC2ENDO 11:33
DX: K29.50 Unspecified chronic gastritis without bleeding (principal); K21.0 Gastro-esophageal reflux disease with esophagitis; K44.9 Diaphragmatic hernia without obstruction or gangrene; K29.80 Duodenitis without bleeding; I10 Essential (primary) hypertension; I25.10 Atherosclerotic heart disease of native coronary artery without angina pectoris; Z95.5 Presence of coronary angioplasty implant and graft; G47.33 Obstructive sleep apnea (adult) (pediatric); E11.9 Type 2 diabetes mellitus without complications; I25.2 Old myocardial infarction; Z88.6 Allergy status to analgesic agent; Z88.8 Allergy status to other drugs, medicaments and biological substances; Z79.84 Long term (current) use of oral hypoglycemic drugs; Z79.1 Long term (current) use of non-steroidal anti-inflammatories (NSAID); Z79.82 Long term (current) use of aspirin; Z79.4 Long term (current) use of insulin; Z79.899 Other long term (current) drug therapy
CPT/HCPCS: 88305; 45378; 43239; J2001; J3010; J2704

== ENCOUNTER 2018-09-18 10:54 | Emergency (ER) | payer MEDICARE, OTHER ==
[2018-09-18 11:01] VITALS: BP 144/81; PULSE 54; RESP 20; TEMP 98.1
--- NOTE | 2018-09-18 11:40 | XR ---
EXAMINATION TYPE: XR foot complete LT DATE OF EXAM: 09/18/2018 COMPARISON: None HISTORY: Pain, diabetic neuropathy TECHNIQUE: Three-view left foot FINDINGS: Mild hallux valgus deformity is present. Joint spaces appear preserved. No acute fractures are evident. There may be some mild flattening of the plantar arch. No suspicious soft tissue abnormality or cortical erosion is evident. IMPRESSION: 1. No suspicious acute osseous abnormality.
--- NOTE | 2018-09-18 12:59 | ED ---
General Adult HPI - General Chief complaint: Extremity Problem,Nontraumatic Stated complaint: Foot pain Source: patient, RN notes reviewed, old records reviewed Mode of arrival: ambulatory Limitations: no limitations - History of Present Illness Initial comments: 52-year-old male patient with past medical history of diabetes presents to ED with 2 weeks of left foot pain. Patient reports that the pain is worse in his left great toe but he does have pain in all his toes. Patient denies any recent trauma to his foot or any recent lacerations or puncture wounds. Patient is ambulatory but does have pain in his left foot with ambulation. Patient denies any other symptoms. Patient denies fever chills, nausea vomiting diarrhea, chest pain, shortness of breath, abdominal pain. Systemic: Pt denies fatigue, myalgia, fever/chills, rash. Pt denies weakness, night sweats, weight loss. Neuro: Pt denies headache, visual disturbances, syncope or pre-syncope. HEENT: Pt denies ocular discharge or irritation, otalgia, rhinorrhea, pharyngitis or notable lymphadenopathy. Cardiopulmonary: Pt denies chest pain, SOB, heart palpitations, dyspnea on exertion. Abdominal/GI: Pt denies abdominal pain, n/v/d. : Pt denies dysuria, burning w/ urination, frequency/urgency. Denies new onset urinary or bowel incontinence. MSK: Pt denies loss of strength or function in extremities. Neuro: Pt denies new onset weakness, paresthesias. - Related Data Home Medications Medication Instructions Recorded Confirmed Atenolol 25 mg PO BID 09/11/15 09/18/18 Insulin Glargine [Lantus] 50 unit SQ HS 09/11/15 09/18/18 Latanoprost Ophth [Xalatan 0.005%] 1 drops RIGHT EYE HS 09/11/15 09/18/18 Lisinopril [Zestril] 20 mg PO DAILY 09/11/15 09/18/18 amLODIPine [Norvasc] 10 mg PO DAILY 09/11/15 09/18/18 metFORMIN HCL [Glucophage] 500 mg PO BID 09/11/15 09/18/18 Brimonidine Tartrate [Alphagan P 1 drops RIGHT EYE TID 10/28/16 09/18/18 0.2% Ophth Soln] Glimepiride [Amaryl] 1 mg PO AC-BRKFST 10/28/16 09/18/18 Cholecalciferol [Vitamin D3] 1,000 unit PO DAILY 09/18/18 09/18/18 Dorzolamide HCl/Pf [Dorzolamide 2% 1 drop BOTH EYES BID 09/18/18 09/18/18 Eye Drop] Insulin Aspart [NovoLOG 5 unit SQ TID-W/MEALS 09/18/18 09/18/18 (formulary)] [place]-3 Fatty Acids/Fish Oil [Fish 1 tab PO DAILY 09/18/18 09/18/18 Oil 1,000 mg Softgel] Prednisolone Acetate/Pf 1 drop LEFT EYE BID 09/18/18 09/18/18 [Prednisolone Acet 1% Eye Drop] Previous Rx's Medication Instructions Recorded Acetaminophen [Tylenol] 500 mg PO Q6HR PRN 5 Days #20 tab 09/18/18 Allergies Allergy/AdvReac Type Severity Reaction Status Date / Time atorvastatin [From Lipitor] Allergy Swelling Verified 09/18/18 12:33 ibuprofen Allergy Swelling Verified 09/18/18 12:33 pregabalin [From Lyrica] Allergy Swelling Verified 09/18/18 12:33 Review of Systems ROS Statement: Those systems with pertinent positive or pertinent negative responses have been documented in the HPI. ROS Other: All systems not noted in ROS Statement are negative. Past Medical History Past Medical History: Diabetes Mellitus, Hyperlipidemia, Hypertension Additional Past Medical History / Comment(s): uvitis glaucoma History of Any Multi-Drug Resistant Organisms: None Reported Past Surgical History: Hernia Repair, Orthopedic Surgery Additional Past Surgical History / Comment(s): eye surg implant , bilateral knee Past Psychological History: No Psychological Hx Reported Smoking Status: Former smoker Past Alcohol Use History: Rare Past Drug Use History: Marijuana General Exam - General Exam Comments Initial Comments: Constitutional: NAD, AOX3, Pt has pleasant affect. HEENT: NC/AT, trachea midline, neck supple, no lymphadenopathy. Posterior pharynx non erythematous, without exudates. External ears appear normal, without discharge. Mucous membranes moist. Eyes PERRLA, EOM intact. There is no scleral icterus. No pallor noted. Cardiopulmonary: RRR, no murmurs, rubs or gallops, no JVD noted. Lungs CTAB in anterior and posterior zapien. No peripheral edema. Abdominal exam: Abdomen soft and non-distended. Abdomen non-tender to palpation in all 4 quadrants. Bowel sounds active in LLQ. No hepatosplenomegaly. No ecchymosis Neuro: CN II-XII grossly intact. No nuchal rigidity. MSK: L great toe mildly erythematous, non cellulitic. toes 1-5 mildly tender to palpation. Sensation intact. Pt able to wiggle toes. plantar flexion and dorsiflexion of foot intact. Dorsalis pedis and posterior tibialis pulse +2 bilaterally. No posterior calf tenderness bilaterally, homans sign negative bilaterally. radial pulse +2 bilaterally. Sensation intact in upper and lower extremities. Full active ROM in upper and lower extremities, 5/5 stregnth. Limitations: no limitations Course Vital Signs 09/18/18 10:58 Temperature 98.1 F Pulse Rate 54 L Respiratory 20 Rate Blood Pressure 144/81 O2 Sat by Pulse 100 Oximetry Medical Decision Making - Medical Decision Making 52-year-old male patient with past medical history of diabetes presents to ED with 2 weeks of left foot pain. Patient reports that the pain is worse in his left great toe but he does have pain in all his toes. Patient denies any recent trauma to his foot or any recent lacerations or puncture wounds. Patient is ambulatory but does have pain in his left foot with ambulation. Patient denies any other symptoms. Patient denies fever chills, nausea vomiting diarrhea, chest pain, shortness of breath, abdominal pain. Physical exam displayed L great toe mildly erythematous, toes 1-5 mildly tender to palpation. Sensation intact. Pt able to wiggle toes. plantar flexion and dorsiflexion of foot intact. Dorsalis pedis and posterior tibialis pulse +2 bilaterally. Plain film of foot did not display any acute process. Patient diagnosed with gout. Patient to be prescribed tylenol because of ibuprofen allergy. Patient to follow-up with his primary care provider in 1-2 days. Patient to return to ED if new signs symptoms develop or symptoms worsen in anyway. Pt discussed and seen by Dr. Amador. Disposition Clinical Impression: Gout Disposition: HOME SELF-CARE Condition: Good Instructions: Gout (ED), Low Purine Diet (ED) Additional Instructions: Patient to adhere to previously discussed treatment plan and will take medication(s) as directed. Patient to follow up with PCP in 1-2 days. Patient to return to ED if symptoms do not improve. Prescriptions: Acetaminophen [Tylenol] 500 mg PO Q6HR PRN 5 Days #20 tab PRN Reason: Pain Is patient prescribed a controlled substance at d/c from ED?: No Referrals: Betito Romo MD [Primary Care Provider] - 1-2 days Time of Disposition: 13:19
== END 2018-09-18 13:30 | disposition home or self-care (01) ==
LOC: EC 10:54
DX: M10.9 Gout, unspecified (principal); I10 Essential (primary) hypertension; E11.9 Type 2 diabetes mellitus without complications; H40.40X0 Glaucoma secondary to eye inflammation, unspecified eye, stage unspecified; Z87.891 Personal history of nicotine dependence; Z88.6 Allergy status to analgesic agent; Z88.8 Allergy status to other drugs, medicaments and biological substances; Z79.4 Long term (current) use of insulin; Z79.52 Long term (current) use of systemic steroids; Z79.899 Other long term (current) drug therapy
CPT/HCPCS: 99284

== ENCOUNTER 2018-09-19 14:21 | Emergency (ER) | payer MEDICARE, OTHER ==
[2018-09-19 14:48] VITALS: TEMP 98.1
[2018-09-19] MEDS ORDERED: SODIUM CHLORIDE 0.9% 1,000 ML IV ONE (15:57)
[2018-09-19] MEDS ORDERED: HEPARIN SODIUM,PORCINE 10,000 UNIT/ML 1 ML VIAL IV ONE (15:58)
[2018-09-19] MEDS ORDERED: HEPARIN SODIUM,PORCINE 5,000 UNIT/ML 1 ML VIAL IV PRN (15:58)
[2018-09-19] MEDS ORDERED: SODIUM CHLORIDE 0.9% 1,000 ML IV SCH (16:00)
[2018-09-19] MEDS ORDERED: HEPARIN SOD,PORK IN 0.45% NACL 25,000 UNIT in 0.45% NACL 1 250ML.BAG IV SCH (16:00)
--- NOTE | 2018-09-19 16:47 | ED ---
Lower Extremity Injury HPI - General Source: patient, RN notes reviewed, old records reviewed Mode of arrival: ambulatory Limitations: no limitations <Lilian Queen - Last Filed: 09/19/18 16:42> <Sandeep Dempsey - Last Filed: 09/19/18 19:18> - General Chief Complaint: Extremity Injury, Lower Stated Complaint: Foot pain Time Seen by Provider: 09/19/18 15:08 - History of Present Illness Initial Comments: Patient is a 52-year-old male, with history of diabetes, hypertension and hyperlipidemia. He presents emergency Department chief complaint of left foot pain. He reports these been having severe pain for the past 2 days. He states that yesterday he was diagnosed with gout. He states that he has pain in each of his toes. Pain seems worse over the fourth and fifth digit. He also reports she's noticed bluish discoloration over the fourth fifth and first toe. Patient reports that he has had no fevers or chills. He reports that he has some pain with ambulation. Patient states that he is a nonsmoker. (Lilian Queen) - Related Data Home Medications Medication Instructions Recorded Confirmed Atenolol 25 mg PO BID 09/11/15 09/19/18 Insulin Glargine [Lantus] 50 unit SQ HS 09/11/15 09/19/18 Latanoprost Ophth [Xalatan 0.005%] 1 drops RIGHT EYE HS 09/11/15 09/19/18 Lisinopril [Zestril] 20 mg PO DAILY 09/11/15 09/19/18 amLODIPine [Norvasc] 10 mg PO DAILY 09/11/15 09/19/18 metFORMIN HCL [Glucophage] 500 mg PO BID 09/11/15 09/19/18 Brimonidine Tartrate [Alphagan P 1 drops RIGHT EYE TID 10/28/16 09/19/18 0.2% Ophth Soln] Glimepiride [Amaryl] 1 mg PO AC-BRKFST 10/28/16 09/19/18 Cholecalciferol [Vitamin D3] 1,000 unit PO DAILY 09/18/18 09/19/18 Dorzolamide HCl/Pf [Dorzolamide 2% 1 drop BOTH EYES BID 09/18/18 09/19/18 Eye Drop] Insulin Aspart [NovoLOG 5 unit SQ TID-W/MEALS 09/18/18 09/19/18 (formulary)] [place]-3 Fatty Acids/Fish Oil [Fish 1 tab PO DAILY 09/18/18 09/19/18 Oil 1,000 mg Softgel] Prednisolone Acetate/Pf 1 drop LEFT EYE BID 09/18/18 09/19/18 [Prednisolone Acet 1% Eye Drop] Previous Rx's Medication Instructions Recorded Acetaminophen [Tylenol] 500 mg PO Q6HR PRN 5 Days #20 tab 09/18/18 Allergies Allergy/AdvReac Type Severity Reaction Status Date / Time atorvastatin [From Lipitor] Allergy Swelling Verified 09/19/18 15:11 ibuprofen Allergy Swelling Verified 09/19/18 15:11 pregabalin [From Lyrica] Allergy Swelling Verified 09/19/18 15:11 Review of Systems ROS Other: All systems not noted in ROS Statement are negative. <Lilian Queen - Last Filed: 09/19/18 16:42> ROS Other: All systems not noted in ROS Statement are negative. <Sandeep Dempsey - Last Filed: 09/19/18 19:18> ROS Statement: Those systems with pertinent positive or pertinent negative responses have been documented in the HPI. Past Medical History Past Medical History: Diabetes Mellitus, Hyperlipidemia, Hypertension Additional Past Medical History / Comment(s): uvitis glaucoma History of Any Multi-Drug Resistant Organisms: None Reported Past Surgical History: Hernia Repair, Orthopedic Surgery Additional Past Surgical History / Comment(s): eye surg implant , bilateral knee Past Psychological History: No Psychological Hx Reported Smoking Status: Former smoker Past Alcohol Use History: Rare Past Drug Use History: Marijuana <Lilian Queen - Last Filed: 09/19/18 16:42> General Exam Limitations: no limitations General appearance: alert Head exam: Present: atraumatic, normocephalic, normal inspection Eye exam: Present: normal appearance, PERRL, EOMI. Absent: scleral icterus, conjunctival injection, periorbital swelling ENT exam: Present: normal exam, normal oropharynx, mucous membranes moist Neck exam: Present: normal inspection. Absent: tenderness, meningismus, lymphadenopathy Respiratory exam: Present: normal lung sounds bilaterally. Absent: respiratory distress, wheezes, rales, rhonchi, stridor Cardiovascular Exam: Present: regular rate, normal rhythm, normal heart sounds. Absent: systolic murmur, diastolic murmur, rubs, gallop, clicks GI/Abdominal exam: Present: soft, normal bowel sounds. Absent: distended, tenderness, guarding, rebound, rigid Extremities exam: Present: full ROM, normal capillary refill, other (Patient has heard Doppler pulse over the left foot. Patient has bluish discoloration over the fourth fifth and first toe. This includes discoloration over the first metatarsal area as well. Patient has severe pain with palpation over any of these toes.). Absent: normal inspection, tenderness, pedal edema, joint swelling, calf tenderness Back exam: Present: normal inspection Neurological exam: Present: alert, oriented X3, CN II-XII intact Psychiatric exam: Present: normal affect, normal mood Skin exam: Present: warm, dry, intact, normal color. Absent: rash <Lilian Queen - Last Filed: 09/19/18 16:42> <Sandeep Dempsey - Last Filed: 09/19/18 19:18> - General Exam Comments Initial Comments: 52-year-old male. Alert and oriented. Patient appears in no significant distress. (Lilian Queen) Course <Lilian Queen - Last Filed: 09/19/18 16:42> <Sandeep Dempsey - Last Filed: 09/19/18 19:18> Vital Signs 09/19/18 09/19/18 14:45 18:00 Temperature 98.1 F Pulse Rate 54 L Respiratory 16 18 Rate Blood Pressure 192/69 170/81 O2 Sat by Pulse 100 98 Oximetry - Reevaluation(s) Reevaluation #1: 09/19/18 19:17 spoke w Cat Lee re transfer and they are agreeable (Sandeep Dempsey) Medical Decision Making - Radiology Data Radiology results: report reviewed <Lilian Queen - Last Filed: 09/19/18 16:42> - Lab Data Result diagrams: 09/19/18 16:54 09/19/18 16:54 <Sandeep Dempsey - Last Filed: 09/19/18 19:18> - Medical Decision Making 32-year-old male presents today with concerns for ischemic foot disease, Patient has bluish discoloration and severe pain to palpation over the first fourth and fifth toe. Patient has a heard a Doppler pulse. Patient started on IV fluids labwork obtained. Patient is a known diabetic, hypertensive and hyperlipidemia. Patient has range of motion of the toe. We did start the Patient on heparin (Lilian Queen) 82 male the ER for evaluation of lower extremity pain. Patient does have femoral artery occlusion of lower extremity. He does have collateral flow, patient started on heparin and will be transferred to [facility] for evaluation and treatment (Sandeep Dempsey) - Lab Data Lab Results 09/19/18 09/19/18 09/19/18 Range/Units 16:54 16:54 16:54 WBC 8.2 (3.8-10.6) k/uL RBC 4.91 (4.30-5.90) m/uL Hgb 14.4 (13.0-17.5) gm/dL Hct 43.4 (39.0-53.0) % MCV 88.5 (80.0-100.0) fL MCH 29.4 (25.0-35.0) pg MCHC 33.2 (31.0-37.0) g/dL RDW 12.7 (11.5-15.5) % Plt Count 237 (150-450) k/uL Neutrophils % 42 % Lymphocytes % 43 % Monocytes % 4 % Eosinophils % 8 % Basophils % 1 % Neutrophils # 3.5 (1.3-7.7) k/uL Lymphocytes # 3.5 (1.0-4.8) k/uL Monocytes # 0.3 (0-1.0) k/uL Eosinophils # 0.7 (0-0.7) k/uL Basophils # 0.1 (0-0.2) k/uL PT 9.8 (9.0-12.0) sec INR 0.9 (<1.2) APTT 22.2 (22.0-30.0) sec Sodium 140 (137-145) mmol/L Potassium 4.5 (3.5-5.1) mmol/L Chloride 106 (98-107) mmol/L Carbon Dioxide 26 (22-30) mmol/L Anion Gap 8 mmol/L BUN 12 (9-20) mg/dL Creatinine 1.02 (0.66-1.25) mg/dL Est GFR (CKD-EPI)AfAm >90 (>60 ml/min/1.73 sqM) Est GFR (CKD-EPI)NonAf 83 (>60 ml/min/1.73 sqM) Glucose 126 H (74-99) mg/dL Plasma Lactic Acid Todd (0.7-2.0) mmol/L Calcium 10.0 (8.4-10.2) mg/dL Total Bilirubin 0.6 (0.2-1.3) mg/dL AST 25 (17-59) U/L ALT 32 (21-72) U/L Alkaline Phosphatase 65 (38-126) U/L C-Reactive Protein <5.0 (<10.0) mg/L Total Protein 8.1 (6.3-8.2) g/dL Albumin 4.6 (3.5-5.0) g/dL 09/19/18 Range/Units 16:54 WBC (3.8-10.6) k/uL RBC (4.30-5.90) m/uL Hgb (13.0-17.5) gm/dL Hct (39.0-53.0) % MCV (80.0-100.0) fL MCH (25.0-35.0) pg MCHC (31.0-37.0) g/dL RDW (11.5-15.5) % Plt Count (150-450) k/uL Neutrophils % % Lymphocytes % % Monocytes % % Eosinophils % % Basophils % % Neutrophils # (1.3-7.7) k/uL Lymphocytes # (1.0-4.8) k/uL Monocytes # (0-1.0) k/uL Eosinophils # (0-0.7) k/uL Basophils # (0-0.2) k/uL PT (9.0-12.0) sec INR (<1.2) APTT (22.0-30.0) sec Sodium (137-145) mmol/L Potassium (3.5-5.1) mmol/L Chloride (98-107) mmol/L Carbon Dioxide (22-30) mmol/L Anion Gap mmol/L BUN (9-20) mg/dL Creatinine (0.66-1.25) mg/dL Est GFR (CKD-EPI)AfAm (>60 ml/min/1.73 sqM) Est GFR (CKD-EPI)NonAf (>60 ml/min/1.73 sqM) Glucose (74-99) mg/dL Plasma Lactic Acid Todd 1.5 (0.7-2.0) mmol/L Calcium (8.4-10.2) mg/dL Total Bilirubin (0.2-1.3) mg/dL AST (17-59) U/L ALT (21-72) U/L Alkaline Phosphatase (38-126) U/L C-Reactive Protein (<10.0) mg/L Total Protein (6.3-8.2) g/dL Albumin (3.5-5.0) g/dL Disposition <Lilian Queen - Last Filed: 09/19/18 16:42> Is patient prescribed a controlled substance at d/c from ED?: No - Out of Hospital Transfer - Req. Specs Out of Hospital Transfer - Requested Specifics: Other Emergency Center ([facility]) <Sandeep Dempsey - Last Filed: 09/19/18 19:18> Clinical Impression: Acute occlusion of artery of lower extremity Narrative: Left Femoral Artery Occlusion (Sandeep Dempsey) Disposition: OTHER INSTITUTION NOT DEFINED Condition: Serious Referrals: Betito Romo MD [Primary Care Provider] - 1-2 days
[2018-09-19 17:20] LABS: ALT 32 U/L (21-72); AST 25 U/L (17-59); Albumin 4.6 g/dL (3.5-5.0); Alkaline Phosphatase 65 U/L (38-126); Anion Gap 8 mmol/L; Basophils # (A) 0.1 k/uL (0-0.2); Basophils % (A) 1 %; Blood Urea Nitrogen 12 mg/dL (9-20); C Reactive Protein <5.0 mg/L (<10.0); Carbon Dioxide 26 mmol/L (22-30); Chloride 106 mmol/L (98-107); Eosinophils # (A) 0.7 k/uL (0-0.7); Eosinophils % (A) 8 %; Glucose 126 mg/dL (74-99); HCT 43.4 % (39.0-53.0); HGB 14.4 gm/dL (13.0-17.5); Lymphocytes # (A) 3.5 k/uL (1.0-4.8); Lymphocytes % (A) 43 %; MCH 29.4 pg (25.0-35.0); MCHC 33.2 g/dL (31.0-37.0); MCV 88.5 fL (80.0-100.0); Mean Platelet Volume 7.1; Monocytes # (A) 0.3 k/uL (0-1.0); Monocytes % (A) 4 %; Neutrophils # (A) 3.5 k/uL (1.3-7.7); Neutrophils % (A) 42 %; Platelet Count 237 k/uL (150-450); Potassium 4.5 mmol/L (3.5-5.1); RBC 4.91 m/uL (4.30-5.90); RDW 12.7 % (11.5-15.5); Sodium 140 mmol/L (137-145); Total Bilirubin 0.6 mg/dL (0.2-1.3); Total Protein 8.1 g/dL (6.3-8.2); WBC 8.2 k/uL (3.8-10.6)
[2018-09-19 17:26] LABS: INR 0.9 (<1.2); Partial Thromboplastin Time 22.2 sec (22.0-30.0); Prothrombin Time 9.8 sec (9.0-12.0)
[2018-09-19 18:30] VITALS: RESP 18
--- NOTE | 2018-09-19 18:55 | CT ---
EXAMINATION TYPE: CT angio abd aorta w/Runoff DATE OF EXAM: 09/19/2018 COMPARISON: None HISTORY: LT foot ischemia, pain, swelling CT DLP: 1355 mGycm, Automated Exposure Control for Dose Reduction was Utilized. CONTRAST: CT scan of the abdomen and pelvis is performed with oral and with IV Contrast, patient injected with 125 mL of Isovue 370. FINDINGS: There are 3-D post processed images. There is some minimal subsegmental atelectasis at the lung bases. There is no pleural effusion. Heart appears enlarged. Abdominal aorta has normal size and contour. There is arterial flow in the celiac artery and superior mesenteric artery. There is bilateral arterial flow in the renal arteries. There is bilateral arteri al flow in the common internal and external iliac arteries. There is bilateral arterial flow in the f emoral arteries. There is some diffuse calcified plaque in the distal right femoral artery. There is subtotal occlusion of the right popliteal artery. There is complete occlusion of the proximal left fe moral artery. There are collateral vessels and reconstitution of the left popliteal artery. There is arterial flow in the anterior and posterior tibial arteries and peroneal artery on the left side in t he proximal calf. There is diminished size of the vessels and contrast is seen in the dorsalis pedis and posterior tibial artery at the left ankle. There is similar contrast appearance of the dorsalis p rasta and posterior tibial artery at the right ankle. Liver spleen pancreas adrenal glands and kidneys appear normal. Gallbladder appears normal. There is no mesenteric edema. Appendix appears normal. Bladder distends smoothly. There is no inguinal hernia. There is no free fluid in the abdomen. IMPRESSION: There is complete occlusion of the left femoral artery in the proximal thigh with some collateral francisco w and reconstitution of the tibial artery. There is atherosclerotic plaque and significant stenosis in the distal right femoral artery and popli teal artery.
[2018-09-19 19:23] VITALS: PULSE 85
[2018-09-19] MEDS ORDERED: LABETALOL SYRINGE 5 MG/ML IVP STA (20:52)
[2018-09-19 21:01] VITALS: BP 164/97
== END 2018-09-19 21:10 | disposition other institution (70) ==
LOC: EC 14:21
DX: I70.203 Unspecified atherosclerosis of native arteries of extremities, bilateral legs (principal); E11.9 Type 2 diabetes mellitus without complications; E78.5 Hyperlipidemia, unspecified; I10 Essential (primary) hypertension; H40.9 Unspecified glaucoma; Z87.891 Personal history of nicotine dependence; Z79.4 Long term (current) use of insulin; Z79.899 Other long term (current) drug therapy; Z88.6 Allergy status to analgesic agent; Z88.8 Allergy status to other drugs, medicaments and biological substances
CPT/HCPCS: 36415; 80053; 83605; 85025; 85610; 85730; 86140; 75635; 99285; 96365; 96366 ×3; 96375; 96376; J1644 ×2; Q9967

== ENCOUNTER 2018-09-28 15:23 | Emergency (ER) | payer MEDICARE, OTHER ==
[2018-09-28 15:31] VITALS: TEMP 98.2
--- NOTE | 2018-09-28 17:01 | US ---
EXAMINATION TYPE: US venous doppler duplex LE LT DATE OF EXAM: 09/28/2018 4:35 PM COMPARISON: NONE CLINICAL HISTORY: swelling/recent surgery. Left knee replacement x 2005. Left foot swelling since . Vein reroute from thigh to foot x 2 weeks due to arterial disease. No hx of blood clots. P atient states being on blood thinners since the surgery. SIDE PERFORMED: Left TECHNIQUE: The lower extremity deep venous system is examined utilizing real time linear array sonog dago with graded compression, doppler sonography and color-flow sonography. VESSELS IMAGED: External Iliac Vein (EIV) Common Femoral Vein Deep Femoral Vein Greater Saphenous Vein * Femoral Vein Popliteal Vein Small Saphenous Vein * Proximal Calf Veins (* superficial vessels) FINDINGS: Grayscale, color doppler, spectral doppler imaging performed of the deep veins of the lower extremities. There is normal flow, compressibility, vascular waveforms. Limited visualization due to inflammation IMPRESSION: 1) Negative for DVT, left lower extremity. 2) Graft visualized; related to the graft in the distal thigh is a prominent anechoic fluid collecti on, with posterior wall enhancement and through sound transmission. This measures 4.9 x 2.4 x 1.9 cm, and has sonographic characteristics of seroma.
[2018-09-28 17:16] LABS: Basophils # (A) 0.1 k/uL (0-0.2); Basophils % (A) 1 %; Eosinophils # (A) 0.4 k/uL (0-0.7); Eosinophils % (A) 5 %; HCT 32.1 % (39.0-53.0); Lymphocytes # (A) 2.4 k/uL (1.0-4.8); Lymphocytes % (A) 29 %; MCH 29.7 pg (25.0-35.0); MCHC 33.3 g/dL (31.0-37.0); MCV 89.1 fL (80.0-100.0); Mean Platelet Volume 7.2; Monocytes # (A) 0.5 k/uL (0-1.0); Monocytes % (A) 6 %; Neutrophils # (A) 4.9 k/uL (1.3-7.7); Neutrophils % (A) 57 %; Platelet Count 379 k/uL (150-450); RBC 3.61 m/uL (4.30-5.90); RDW 12.7 % (11.5-15.5); WBC 8.5 k/uL (3.8-10.6)
--- NOTE | 2018-09-28 17:17 | ED ---
Extremity Problem HPI - General Chief complaint: Extremity Problem,Nontraumatic Stated complaint: Lt foot is swollen Time Seen by Provider: 09/28/18 15:55 Source: patient Mode of arrival: wheelchair Limitations: no limitations - History of Present Illness Initial comments: 53-year-old male with past nuchal history of previous stent placement in 2005, recent vascular bypass performed at [facility] 9 days ago per patient. Pt states he is unsure if he is on anticoagulant therapy. (Upon further review of RX hx pt on plavix) Patient states that he had a bypass performed 9 days ago at [facility], he is unsure of the surgeon's name. Records will be obtained. Patient states that yesterday he began noticing mild left foot swelling yesterday. He states he didn't think much of it however today the swelling increased and he began experiencing left foot pain. Patient denies any pallor or coolness of the extremity. Patient denies any calf pain. Patient does admit to pain in the foot that increased with bending of the toe- he feels this is due to the swelling. Upon review of system patient does state he had occasional dyspnea with exertion denies noticing pattern that have occurred randomly last few weeks, he denies any chest pain, dyspnea rest, orthopnea, epigastric pain, jaw pain, upper extremity paresthesias, hemoptysis, palpatations, increased HR, cold intolerance, dizzines, syncope or pre-syncope. Remainder of ROS (-). Upon arrival pt is well appearing. No signs of distress. VS within acceptable limits. Pt HR upon chart review is baseline around 58bpm. - Related Data Home Medications Medication Instructions Recorded Confirmed Atenolol 25 mg PO BID 09/11/15 09/28/18 Insulin Glargine [Lantus] 50 unit SQ HS 09/11/15 09/28/18 Latanoprost Ophth [Xalatan 0.005%] 1 drops RIGHT EYE HS 09/11/15 09/28/18 Lisinopril [Zestril] 20 mg PO DAILY 09/11/15 09/28/18 amLODIPine [Norvasc] 10 mg PO DAILY 09/11/15 09/28/18 metFORMIN HCL [Glucophage] 500 mg PO BID 09/11/15 09/28/18 Brimonidine Tartrate [Alphagan P 1 drops RIGHT EYE TID 10/28/16 09/28/18 0.2% Ophth Soln] Glimepiride [Amaryl] 1 mg PO AC-BRKFST 10/28/16 09/28/18 Cholecalciferol [Vitamin D3] 1,000 unit PO DAILY 09/18/18 09/28/18 Dorzolamide HCl/Pf [Dorzolamide 2% 1 drop BOTH EYES BID 09/18/18 09/28/18 Eye Drop] Insulin Aspart [NovoLOG 5 unit SQ TID-W/MEALS 09/18/18 09/28/18 (formulary)] [place]-3 Fatty Acids/Fish Oil [Fish 1 tab PO DAILY 09/18/18 09/28/18 Oil 1,000 mg Softgel] Prednisolone Acetate/Pf 1 drop LEFT EYE BID 09/18/18 09/28/18 [Prednisolone Acet 1% Eye Drop] Clopidogrel [Plavix] 75 mg PO DAILY 09/28/18 09/28/18 Previous Rx's Medication Instructions Recorded Acetaminophen [Tylenol] 500 mg PO Q6HR PRN 5 Days #20 tab 09/18/18 Allergies Allergy/AdvReac Type Severity Reaction Status Date / Time atorvastatin [From Lipitor] Allergy Swelling Verified 09/28/18 15:31 ibuprofen Allergy Swelling Verified 09/28/18 15:31 pregabalin [From Lyrica] Allergy Swelling Verified 09/28/18 15:31 Review of Systems ROS Statement: Those systems with pertinent positive or pertinent negative responses have been documented in the HPI. ROS Other: All systems not noted in ROS Statement are negative. Past Medical History Past Medical History: Diabetes Mellitus, Hyperlipidemia, Hypertension Additional Past Medical History / Comment(s): uvitis glaucoma History of Any Multi-Drug Resistant Organisms: None Reported Past Surgical History: Hernia Repair, Orthopedic Surgery Additional Past Surgical History / Comment(s): eye surg implant , bilateral knee Past Psychological History: No Psychological Hx Reported Smoking Status: Former smoker Past Alcohol Use History: Rare Past Drug Use History: Marijuana General Exam - General Exam Comments Initial Comments: General: The patient is awake and alert, in no distress, and does not appear acutely ill. Eye: +3 mm pupils are equal, round and reactive to light, extra-ocular movements are intact. No nystagmus. There is normal conjunctiva bilaterally. No signs of icterus. Ears, nose, mouth and throat: There are moist mucous membranes and no oral lesions. No pallor noted of the internal aspect of lower eye lids. Neck: The neck is supple, there is no tenderness or JVD. Cardiovascular: There is a regular rate and rhythm. No murmur, rub or gallop is appreciated. Respiratory: Lungs are clear to auscultation, respirations are non-labored, breath sounds are equal. No wheezes, stridor, rales, or rhonchi. Gastrointestinal: Soft, non-distended, non-tender abdomen without masses or organomegaly noted. There is no rebound or guarding present. No CVA tenderness. Bowel sounds are unremarkable. Musculoskeletal: Normal ROM at the knees, ankles b/l. Strength 5/5. Sensation intact of the LE equal b/l including feet. DP pulses equal bilaterally 2+. (-) Homans. Left foot discomfort to palpation. pt able to ambulate without difficulty. Neurological: A&O x 3. CN II-XII intact, There are no obvious motor or sensory deficits. Coordination appears grossly intact. Speech is normal. Skin: Skin is warm and dry and no rashes or lesions are noted. Lower extremity edema of the left foot in comparison with left. Warm to palpation with < 2 sec capillary refill. No noted pallor or coolness/color change, Psychiatric: Cooperative, appropriate mood & affect, normal judgment. Limitations: no limitations Course Vital Signs 09/28/18 09/28/18 09/28/18 15:28 17:00 18:00 Temperature 98.2 F Pulse Rate 56 L Respiratory 18 18 20 Rate Blood Pressure 132/74 O2 Sat by Pulse 100 Oximetry 09/28/18 19:00 Temperature 98.2 F Pulse Rate 59 L Respiratory 18 Rate Blood Pressure 127/58 O2 Sat by Pulse 98 Oximetry Medical Decision Making - Medical Decision Making 53yo with recent surgical procedure and left foot swelling concerning for DVT. US revealed seroma, no evidence of DVT. D-dimer elevated, most likely due to recent vascular bypass, however CTA obtained once Cr cleared. HgB did have drop from previous value. Pt states that he was told he lost blood during surgery, most liekly post operative finding. I recommended primary care f/u in next 1-2 days for repeat CBC to trend HgB. CTA revealed no evidence of PE. Panchamber enlargement noted. Findings discussed with patient. Given hx of occasional SOB Trop obtained (-). EKG no acute findings. Pt appears well. Exam of foot revealed +2 DP pulses, warm no pallor. No concern for occlusion. I feel swelling is due to recent surgery as well as the seroma. Pt is requesting discharge. At this time I do feel pt is stable for discharge with f/u with surgeon in next 2-3 days for further evaluation and treatment of seroma. Pt is aware of findings, states he will call surgeon. Appears compliant. Discussed case in detail with Dr. Singh who reviewed previous documentation, we discussed HPI and PE findings as well as laboratory studies prior to pt discharge who agreed with impression and plan. Return parameters were discussed at length with patient who verbalized understanding. - Lab Data Result diagrams: 09/28/18 17:00 09/28/18 17:00 Lab Results 09/28/18 09/28/18 09/28/18 Range/Units 17:00 17:00 17:00 WBC 8.5 (3.8-10.6) k/uL RBC 3.61 L (4.30-5.90) m/uL Hgb 10.7 L D (13.0-17.5) gm/dL Hct 32.1 L (39.0-53.0) % MCV 89.1 (80.0-100.0) fL MCH 29.7 (25.0-35.0) pg MCHC 33.3 (31.0-37.0) g/dL RDW 12.7 (11.5-15.5) % Plt Count 379 (150-450) k/uL Neutrophils % 57 % Lymphocytes % 29 % Monocytes % 6 % Eosinophils % 5 % Basophils % 1 % Neutrophils # 4.9 (1.3-7.7) k/uL Lymphocytes # 2.4 (1.0-4.8) k/uL Monocytes # 0.5 (0-1.0) k/uL Eosinophils # 0.4 (0-0.7) k/uL Basophils # 0.1 (0-0.2) k/uL PT 9.6 (9.0-12.0) sec INR 0.9 (<1.2) APTT 23.9 (22.0-30.0) sec D-Dimer 10.35 H (<0.60) mg/L FEU Sodium 140 (137-145) mmol/L Potassium 4.9 (3.5-5.1) mmol/L Chloride 104 (98-107) mmol/L Carbon Dioxide 29 (22-30) mmol/L Anion Gap 7 mmol/L BUN 19 (9-20) mg/dL Creatinine 1.09 (0.66-1.25) mg/dL Est GFR (CKD-EPI)AfAm 88 (>60 ml/min/1.73 sqM) Est GFR (CKD-EPI)NonAf 76 (>60 ml/min/1.73 sqM) Glucose 152 H (74-99) mg/dL Calcium 9.7 (8.4-10.2) mg/dL Total Bilirubin 0.4 (0.2-1.3) mg/dL AST 24 (17-59) U/L ALT 35 (21-72) U/L Alkaline Phosphatase 62 (38-126) U/L Total Creatine Kinase (55-170) U/L CK-MB (CK-2) (0.0-2.4) ng/mL CK-MB (CK-2) Rel Index Troponin I (0.000-0.034) ng/mL Total Protein 7.0 (6.3-8.2) g/dL Albumin 3.9 (3.5-5.0) g/dL 09/28/18 Range/Units 17:00 WBC (3.8-10.6) k/uL RBC (4.30-5.90) m/uL Hgb (13.0-17.5) gm/dL Hct (39.0-53.0) % MCV (80.0-100.0) fL MCH (25.0-35.0) pg MCHC (31.0-37.0) g/dL RDW (11.5-15.5) % Plt Count (150-450) k/uL Neutrophils % % Lymphocytes % % Monocytes % % Eosinophils % % Basophils % % Neutrophils # (1.3-7.7) k/uL Lymphocytes # (1.0-4.8) k/uL Monocytes # (0-1.0) k/uL Eosinophils # (0-0.7) k/uL Basophils # (0-0.2) k/uL PT (9.0-12.0) sec INR (<1.2) APTT (22.0-30.0) sec D-Dimer (<0.60) mg/L FEU Sodium (137-145) mmol/L Potassium (3.5-5.1) mmol/L Chloride (98-107) mmol/L Carbon Dioxide (22-30) mmol/L Anion Gap mmol/L BUN (9-20) mg/dL Creatinine (0.66-1.25) mg/dL Est GFR (CKD-EPI)AfAm (>60 ml/min/1.73 sqM) Est GFR (CKD-EPI)NonAf (>60 ml/min/1.73 sqM) Glucose (74-99) mg/dL Calcium (8.4-10.2) mg/dL Total Bilirubin (0.2-1.3) mg/dL AST (17-59) U/L ALT (21-72) U/L Alkaline Phosphatase (38-126) U/L Total Creatine Kinase 184 H (55-170) U/L CK-MB (CK-2) 1.0 (0.0-2.4) ng/mL CK-MB (CK-2) Rel Index 0.5 Troponin I <0.012 (0.000-0.034) ng/mL Total Protein (6.3-8.2) g/dL Albumin (3.5-5.0) g/dL - EKG Data EKG Comments: Ventricular rate 58/m, PA interval 182 ms, QRS duration 86 ms, QT/QTC 44/396 ms. This is sinus bradycardia there is noted left axis deviation. There are nonspecific T-wave abnormalities. There is no ST elevation or depression noted. This compared to most recent EKG, no acute findings. Vry similar in characteristic. Disposition Clinical Impression: Seroma after procedure, Left leg swelling, Hemoglobin decreased Disposition: HOME SELF-CARE Condition: Good Instructions: Seroma (DC) Additional Instructions: Please use previously prescribed medications as discussed. Please follow-up with family doctor in the next 2 days. Please follow up with surgeon in the next 1-2 days. Please return to emergency room if the symptoms increase or worsen or for any other concerns. Is patient prescribed a controlled substance at d/c from ED?: No Referrals: Betito Romo MD [Primary Care Provider] - 1-2 days Time of Disposition: 18:57
[2018-09-28 17:27] LABS: Albumin 3.9 g/dL (3.5-5.0); Calcium 9.7 mg/dL (8.4-10.2); Potassium 4.9 mmol/L (3.5-5.1); Total Bilirubin 0.4 mg/dL (0.2-1.3)
[2018-09-28 17:30] LABS: HGB 10.7 gm/dL (13.0-17.5)
[2018-09-28 17:35] LABS: Creatine Kinase 184 U/L (55-170)
[2018-09-28 17:38] LABS: INR 0.9 (<1.2); Partial Thromboplastin Time 23.9 sec (22.0-30.0); Prothrombin Time 9.6 sec (9.0-12.0)
[2018-09-28 17:42] LABS: D-Dimer 10.35 mg/L FEU (<0.60)
[2018-09-28 17:48] LABS: Troponin I <0.012 ng/mL (0.000-0.034)
--- NOTE | 2018-09-28 18:43 | CT ---
EXAMINATION TYPE: CT angio chest with contrast and with 3-D reconstruction renderings. DATE OF EXAM: 09/28/2018 6:16 PM COMPARISON: None. HISTORY: Left leg swelling. CT DLP: 437.3 mGycm Automated exposure control for dose reduction was used. CONTRAST: CTA scan of the thorax is performed with IV Contrast, patient injected with 100 mL of Isovue 370, pul monary embolism protocol. 3-D reconstructions. FINDINGS: AIRWAYS: Unremarkable. LUNGS: The lungs are clear and well-expanded bilaterally. PLEURAL SPACES: Negative. MEDIASTINUM: There is satisfactory enhancement of the pulmonary artery and its branches, and there is no CT evidence for pulmonary embolism. The aorta is unremarkable. There is moderate cardiomegaly wit h panchamber enlargement and coronary calcifications are noted. No pericardial effusion. There is no mediastinal or hilar adenopathy. SKELETAL STRUCTURES: Unremarkable. OTHER: No additional significant abnormality is seen. IMPRESSION: 1. NO DEFINITE ACUTE PROCESS. 2. MODERATE CARDIOMEGALY WITH PANCHAMBER ENLARGEMENT, AND CORONARY CALCIFICATIONS.
[2018-09-28 19:06] VITALS: BP 127/58; PULSE 59; RESP 18
== END 2018-09-28 19:00 | disposition home or self-care (01) ==
LOC: EC 15:23
DX: I97.648 Postprocedural seroma of a circulatory system organ or structure following other circulatory system procedure (principal); R71.0 Precipitous drop in hematocrit; E11.9 Type 2 diabetes mellitus without complications; I10 Essential (primary) hypertension; Z79.02 Long term (current) use of antithrombotics/antiplatelets; Z79.4 Long term (current) use of insulin; Z79.899 Other long term (current) drug therapy; Z88.8 Allergy status to other drugs, medicaments and biological substances; Z88.6 Allergy status to analgesic agent; Z87.891 Personal history of nicotine dependence; Z95.820 Peripheral vascular angioplasty status with implants and grafts; Z95.5 Presence of coronary angioplasty implant and graft
CPT/HCPCS: 36415; 93005; 85379; 80053; 82550; 82553; 84484; 85025; 85610; 85730; 93971; 71275; 99284; Q9967

== ENCOUNTER → 2018-11-19 | Outpatient (CLI) | payer MEDICARE, OTHER ==
[2018-11-19 14:33] LABS: Basophils # (A) 0.1 k/uL (0-0.2); Basophils % (A) 1 %; Eosinophils # (A) 0.2 k/uL (0-0.7); Eosinophils % (A) 3 %; HCT 38.1 % (39.0-53.0); Lymphocytes # (A) 1.8 k/uL (1.0-4.8); Lymphocytes % (A) 20 %; MCHC 31.5 g/dL (31.0-37.0); MCV 91.8 fL (80.0-100.0); Mean Platelet Volume 7.5; Monocytes # (A) 0.4 k/uL (0-1.0); Monocytes % (A) 5 %; Neutrophils # (A) 6.3 k/uL (1.3-7.7); Neutrophils % (A) 71 %; Platelet Count 283 k/uL (150-450); RBC 4.15 m/uL (4.30-5.90); RDW 13.4 % (11.5-15.5)
[2018-11-19 14:50] LABS: Anion Gap 7 mmol/L; Blood Urea Nitrogen 15 mg/dL (9-20); Carbon Dioxide 29 mmol/L (22-30); Chloride 102 mmol/L (98-107); Sodium 138 mmol/L (137-145)
== END | disposition home or self-care (01) ==
LOC: LABPAT 14:11
PROVIDERS: ATTEND Surgery
DX: Z01.812 Encounter for preprocedural laboratory examination (principal); I74.3 Embolism and thrombosis of arteries of the lower extremities
CPT/HCPCS: 36415; 80051; 82565; 84520; 85025

== ENCOUNTER → 2018-12-01 | Day surgery (SDC) | payer MEDICARE, OTHER ==
[2018-11-25 12:08] VITALS: BMI 35.5
[~2018-12-01] MED LIST: ALPRAZolam 0.25 MG TAB PO PRN; ASPIRIN 325 MG TAB PO STA; HYDROcodone/APAP 5-325MG 1 EACH TAB PO PRN; IOPAMIDOL-250 100ML BTL INTRAARTER ONE; LIDOCAINE 2% INJ 20 MG/ML SQ ONE; MAG HYDROX/AL HYDROX/SIMETH 30 ML CUP PO PRN; MIDAZOLAM 2 MG/2 ML VIAL IVP ONE; SODIUM CHLORIDE 0.9% 1,000 ML in EMPTY BAG 1 BAG IV ONE; fentaNYL (PF) 50 MCG/ML 2 ML AMP IVP ONE
[2018-12-01 07:06] LABS: Glucose,Whole Blood 105 mg/dL (75-99)
[2018-12-01 07:07] VITALS: RESP 18
--- NOTE | 2018-12-01 09:22 | P.OP ---
Date of Procedure: 12/01/18 Preoperative Diagnosis: Right superficial femoral artery occlusion with secondary severe lifestyle limiting right calf claudication Postoperative Diagnosis: Same. Procedure(s) Performed: #1 ultrasound-guided cannulation right femoral artery. #2 right femoral angiogram. #3 inability to cross right superficial femoral artery occlusion. Implants: None. Anesthesia: local Surgeon: Stephen Dennison Estimated Blood Loss (ml): 10 IV fluids (ml): 150 Pathology: none sent Condition: stable Disposition: same day Indications for Procedure: Right calf claudication Operative Findings: Patient is a 53-year-old male who presented to the approximately 3 months ago with an ischemic left foot. Angiogram at that time it demonstrated bilateral SFA occlusions. Attempt at crossing the left SFA occlusion was unsuccessful and the patient underwent a left femoral-popliteal bypass graft with good clinical result. He is now complaining of right calf claudication which severely interferes with his ability to perform activities daily living. Based on an angiogram results was felt that an attempt at percutaneous revascularization would be reasonable and patient is thus offered attempt at atherectomy. Patient understands that should this fail surgical bypass would eventually be recommended. Description of Procedure: Patient was brought to the special procedure suite. The right femoral area was sterilely prepped and draped in usual manner. Patient did receive 50 g of fentanyl and 2 mg of Versed intravenously for moderate conscious sedation purposes. Utilizing ultrasound the right femoral artery was identified. 1% Xylocaine was utilized for local anesthesia tissues overlying the femoral artery. Through this anesthetized area and with the aid of ultrasound a multipurpose needle was utilized to cannulate the artery. Once cannulated soft-tip guidewire was advanced into the superficial femoral artery and its position was confirmed with fluoroscopy. A 6-Maori sheath was then exchanged for the needle. Right femoral angiogram was performed. This demonstrated a SFA occlusion at the distal thigh/adductor canal level. The plaque was heavily calcified in morphology. Utilizing multiple catheter and guidewire combinations attempt at crossing the lesion was unsuccessful. Because of the inability to cross lesion attempted atherectomy was not possible and the procedure was then abandoned. The guidewire and catheter were removed as was the sheath and pressure was held at the puncture site until all evidence of bleeding ceased. Patient tolerated the procedure well and was returned to the outpatient recovery area in satisfactory and stable condition. Patient understands the seizure was unsuccessful and will require formal surgical revascularization and this is to be planned to be performed in the near future. Patient will follow-up in the office in approximately one week.
[2018-12-01 10:34] VITALS: TEMP 97.6
[2018-12-01 11:13] VITALS: PULSE 60
[2018-12-01 13:55] VITALS: BP 158/73
--- NOTE | 2018-12-01 15:31 | IR ---
EXAMINATION TYPE: IR angio lower extremity RT DATE OF EXAM: 12/01/2018 CLINICAL HISTORY: Peripheral vascular disease. TECHNIQUE: Fluoroscopy. COMPARISON: None. FINDINGS: Fluoroscopic guidance was provided during right lower extremity angiogram procedure perfor [facility] by Dr. Weber. A total of 10.4 minutes of fluoroscopic time was utilized during the procedure and 0 spot images are saved to PACS. IMPRESSION: As Above.
== END ==
LOC: CATHCVL 06:09
PROVIDERS: ATTEND Surgery
DX: E11.51 Type 2 diabetes mellitus with diabetic peripheral angiopathy without gangrene (principal); Z79.4 Long term (current) use of insulin; Z98.890 Other specified postprocedural states; I10 Essential (primary) hypertension; Z87.891 Personal history of nicotine dependence; I25.2 Old myocardial infarction; Z82.49 Family history of ischemic heart disease and other diseases of the circulatory system; Z87.01 Personal history of pneumonia (recurrent); Z79.02 Long term (current) use of antithrombotics/antiplatelets; Z79.891 Long term (current) use of opiate analgesic; Z79.899 Other long term (current) drug therapy; Z88.6 Allergy status to analgesic agent
CPT/HCPCS: 36200; 75710; 76937; C1894; C1769 ×5; C1887; J2001; J2250; J3010; Q9966

== ENCOUNTER → 2018-12-17 | Outpatient (CLI) | payer MEDICARE, OTHER ==
[2018-12-17 11:22] LABS: Basophils % (A) 1 %; Eosinophils # (A) 0.4 k/uL (0-0.7); Eosinophils % (A) 7 %; HCT 41.6 % (39.0-53.0); HGB 13.4 gm/dL (13.0-17.5); Lymphocytes # (A) 2.7 k/uL (1.0-4.8); Lymphocytes % (A) 48 %; MCH 28.1 pg (25.0-35.0); MCHC 32.1 g/dL (31.0-37.0); MCV 87.6 fL (80.0-100.0); Mean Platelet Volume 6.8; Monocytes # (A) 0.4 k/uL (0-1.0); Monocytes % (A) 7 %; Neutrophils # (A) 1.9 k/uL (1.3-7.7); Neutrophils % (A) 35 %; Platelet Count 351 k/uL (150-450); RBC 4.75 m/uL (4.30-5.90); RDW 12.8 % (11.5-15.5); WBC 5.6 k/uL (3.8-10.6)
[2018-12-17 11:43] LABS: Potassium 4.9 mmol/L (3.5-5.1)
== END ==
LOC: LABPAT 10:13
PROVIDERS: ATTEND Surgery
DX: Z01.812 Encounter for preprocedural laboratory examination (principal); I74.3 Embolism and thrombosis of arteries of the lower extremities
CPT/HCPCS: 36415; 80051; 82565; 84520; 85025

== ENCOUNTER → 2018-12-21 | Outpatient (CLI) | payer MEDICARE, OTHER ==
[2018-12-21 11:54] LABS: INR 0.9 (<1.2); Partial Thromboplastin Time 22.5 sec (22.0-30.0); Prothrombin Time 10.2 sec (9.0-12.0)
== END ==
LOC: LABPAT 10:00
PROVIDERS: ATTEND Surgery
DX: Z01.812 Encounter for preprocedural laboratory examination (principal); I70.8 Atherosclerosis of other arteries; Z79.4 Long term (current) use of insulin; Z79.899 Other long term (current) drug therapy; Z79.01 Long term (current) use of anticoagulants
CPT/HCPCS: 36415; 85610; 85730; 86850; 86900; 86901

== ENCOUNTER → 2019-01-21 | Outpatient (CLI) | payer MEDICARE, OTHER ==
[2019-01-21 09:20] LABS: Anion Gap 7 mmol/L; Basophils % (A) 1 %; Blood Urea Nitrogen 14 mg/dL (9-20); Carbon Dioxide 27 mmol/L (22-30); Chloride 105 mmol/L (98-107); Eosinophils # (A) 0.2 k/uL (0-0.7); Eosinophils % (A) 3 %; HCT 43.1 % (39.0-53.0); HGB 13.7 gm/dL (13.0-17.5); Lymphocytes # (A) 2.6 k/uL (1.0-4.8); Lymphocytes % (A) 36 %; MCH 28.2 pg (25.0-35.0); MCHC 31.9 g/dL (31.0-37.0); MCV 88.5 fL (80.0-100.0); Mean Platelet Volume 7.4; Monocytes # (A) 0.4 k/uL (0-1.0); Monocytes % (A) 6 %; Neutrophils # (A) 3.7 k/uL (1.3-7.7); Neutrophils % (A) 52 %; Platelet Count 329 k/uL (150-450); Potassium 4.6 mmol/L (3.5-5.1); RBC 4.87 m/uL (4.30-5.90); RDW 13.9 % (11.5-15.5); Sodium 139 mmol/L (137-145); WBC 7.2 k/uL (3.8-10.6)
== END | disposition home or self-care (01) ==
LOC: LABPAT 08:23
PROVIDERS: ATTEND Surgery
DX: Z01.812 Encounter for preprocedural laboratory examination (principal); I70.201 Unspecified atherosclerosis of native arteries of extremities, right leg
CPT/HCPCS: 36415; 80051; 82565; 84520; 85025

== ENCOUNTER 2019-01-26 10:01 | Inpatient (IN) | payer MEDICARE, OTHER ==
[2019-01-21 14:46] VITALS: BMI 33.1
[~2019-01-26 10:01] MED LIST changes: -ALPRAZolam 0.25 MG TAB PO PRN; -ASPIRIN 325 MG TAB PO STA; -HYDROcodone/APAP 5-325MG 1 EACH TAB PO PRN; +HYDROmorphone 0.5 MG/0.5 ML SYRINGE IVP PRN; -IOPAMIDOL-250 100ML BTL INTRAARTER ONE; +LIDOCAINE 1% 20 ML VIAL (10MG/ML) FOR IV START INTRADERMA PRN; -LIDOCAINE 2% INJ 20 MG/ML SQ ONE; -MAG HYDROX/AL HYDROX/SIMETH 30 ML CUP PO PRN; -MIDAZOLAM 2 MG/2 ML VIAL IVP ONE; +ONDANSETRON 4 MG/2 ML VIAL IVP PRN; -SODIUM CHLORIDE 0.9% 1,000 ML in EMPTY BAG 1 BAG IV ONE; +ceFAZolin IN SWFI 2 GM/20 ML SYRINGE IVP ONE; -fentaNYL (PF) 50 MCG/ML 2 ML AMP IVP ONE
[2019-01-26] MEDS: LACTATED RINGERS 1,000 ML IV SCH ×2 (10:45→22:08)
[2019-01-26 10:48] LABS: Glucose,Whole Blood 62 mg/dL (75-99)
[2019-01-26] MEDS ORDERED: DEXTROSE 50% SYRINGE 50 ML IVP ONE (10:53)
[2019-01-26] MEDS ORDERED: MIDAZOLAM (PF) 2 MG/2 ML VIAL IVP ONE (11:01)
[2019-01-26] MEDS ORDERED: fentaNYL (PF) 50 MCG/ML 2 ML AMP IVP ONE (11:01)
[2019-01-26 11:05] LABS: Glucose,Whole Blood 118 mg/dL (75-99)
[2019-01-26 12:06] LABS: Glucose,Whole Blood 100 mg/dL (75-99)
[2019-01-26] MEDS ORDERED: PROPOFOL 10 MG/ML 20 ML VIAL IV ONE (13:14)
[2019-01-26] MEDS ORDERED: LIDOCAINE 1% INJ 10MG/ML (20 ML MDV) ONE (13:14)
[2019-01-26] MEDS ORDERED: NEOSTIGMINE 1 MG/ML 10 ML VIAL ONE (13:14)
[2019-01-26] MEDS ORDERED: HEPARIN SODIUM,PORCINE 10,000 UNIT/ML 1 ML VIAL ONE (13:14)
[2019-01-26] MEDS ORDERED: ROCURONIUM BROMIDE 10 MG/ML 10 ML VIAL IV ONE (13:14)
[2019-01-26] MEDS ORDERED: ePHEDrine SULFATE/0.9% NACL/PF 50 MG/5 ML SYRINGE IV ONE (13:14)
[2019-01-26] MEDS ORDERED: MIDAZOLAM 2 MG/2 ML VIAL ONE (13:14)
[2019-01-26] MEDS ORDERED: fentaNYL (PF) 50 MCG/ML 2 ML AMP ONE (13:14)
[2019-01-26] MEDS ORDERED: LABETALOL 5 MG/ML VIAL MDV ONE (13:14)
[2019-01-26] MEDS ORDERED: GLYCOPYRROLATE 0.2 MG/ML 2 ML VIAL ONE (13:14)
[2019-01-26] MEDS ORDERED: SUCCINYLCHOLINE CHLORIDE 100 MG/5 ML SYR IV ONE (13:14)
[2019-01-26] MEDS ORDERED: PROTAMINE SULFATE 10 MG/ML 5 ML VIAL IV ONE (13:14)
[2019-01-26 13:16] LABS: Glucose,Whole Blood 70 mg/dL (75-99)
[2019-01-26] MEDS ORDERED: GELATIN SPONGE,ABSORB (LARGE) 1 EACH SPONGE TOPICAL ONE (13:30)
[2019-01-26] MEDS ORDERED: THROMBIN (BOVINE) 5,000 UNIT VIAL TOPICAL ONE (13:30)
[2019-01-26] MEDS ORDERED: HEPARIN SODIUM,PORCINE 10,000 UNIT in SODIUM CHLORIDE 0.9% 1,000 ML IRRIGATION ONE (14:02)
[2019-01-26] MEDS ORDERED: ceFAZolin 4 GM, BACITRACIN 200,000 UNIT in SODIUM CHLORIDE 0.9% 1,000 ML IRRIGATION ONE (14:03)
[2019-01-26 14:18] LABS: Glucose,Whole Blood 60 mg/dL (75-99)
[2019-01-26 15:02] LABS: Glucose,Whole Blood 108 mg/dL (75-99)
[2019-01-26] MEDS ORDERED: LACTATED RINGERS 1,000 ML IV ONE ×2 (15:22→15:59)
[2019-01-26 16:19] LABS: Glucose,Whole Blood 81 mg/dL (75-99)
[2019-01-26] MEDS ORDERED: HYDROcodone/APAP 5-325MG 1 EACH TAB PO PRN (16:21)
[2019-01-26] MEDS ORDERED: MORPHINE SULFATE 2 MG/ML SYRINGE IVP PRN (16:21)
--- NOTE | 2019-01-26 16:45 | P.OP ---
Date of Procedure: 01/26/19 Preoperative Diagnosis: Right femoral occlusion. Postoperative Diagnosis: Same. Procedure(s) Performed: Right femoral popliteal bypass graft utilizing 8 mm PTFE. Anesthesia: MERLEA Surgeon: Stephen Dennison Estimated Blood Loss (ml): 100 IV fluids (ml): 750 Urine output (ml): 180 Pathology: none sent Condition: stable Disposition: floor Indications for Procedure: David is a 53-year-old male who presented earlier this year with limb threatening ischemia of the left lower extremity requiring surgical revascularization. The patient went a revascularization procedure was left leg which resulted in marked improvement in his ability to ambulate with the left leg however now his right leg is lifestyle limiting secondary to claudication type symptoms. Previous attempt at endovascular repair of met with failure and patient is now offered surgical bypass. Operative Findings: Right SFA occlusion Description of Procedure: Patient was brought the upper and placed in the supine position and administered general endotracheal anesthesia delivered by the department anesthesiology. The patient did receive intravenously administered antibiotics in the perioperative phase for prophylactic purposes. The patient's right lower extremity pelvic and abdominal wall area were sterilely prepped and draped in usual manner. Skin incision overlying the right femoral artery was made carried down through the subcutaneous tissues. Hemostasis was achieved using electrocautery. The lymphatic layer was divided laterally swept medially exposing the femoral sheath. This was incised. The common femoral artery was identified and dissected free of investing tissues. The origin of the SFA and profundus femoris vessels were identified and encircled Vesseloops. The SFA was heavily involved with aphthous chronic disease while the common femoral artery was soft and pliable. The origin of the common femoral artery was encircled Vesseloops. Antibiotic soaked gauze was then placed in the wound. Attention was turned to the medial knee area. A skin incision was made along the medial aspect of the leg just proximal to the knee carried down through the subcutaneous tissues. Hemostasis was achieved using electrocautery. The long saphenous vein was identified and left undisturbed. Incision was deepened through the subcutaneous tissues and entrance was gained into the popliteal space. The popliteal vein was identified as was the popliteal artery. The artery was dissected free of investing tissues. Crossing vessels were controlled. The popliteal artery was then encircled Vesseloops both proximally and distally. The artery was relatively soft and felt adequate for outflow purposes. An 8 mm PTFE graft was selected and tunneled between the 2 incisions. The patient was then administered 7500 units of heparin. ACT was drawn and this was found to be 313. The Vesseloops surrounding the profundus and superficial femoral arteries as well as the common femoral artery were drawn closed and arteriotomy was made with an 11 blade and extended with Pott Garcia scissors in the common femoral artery. Excellent inflow was identified. The graft was spatulated match arteriotomy and an end-to-side anastomosis between the artery and the graft was completed with 6-0 Prolene suture. Just prior to completion of the anastomotic line backbleeding was allowed to occur through the profundus and the common femoral artery was flushed and no thrombus was retrieved in either situation. The anastomotic line was then completed and flow restored into the common and profundus femoris arteries with an excellent pulse within the graft being identified. The wound was then repacked with antibiotic-soaked gauze. The Vesseloops surrounding the popliteal artery were drawn closed and arteriotomy in the popliteal artery was made and extended with Pott Garcia scissors. Good backbleeding through the distal popliteal artery was identified and the artery was then flushed with heparinized saline solution. The graft was cut the appropriate length and spatulated to match arteriotomy and an end-to-side anastomosis between the graft and the artery was completed with 5-0 Prolene suture. Just prior to completion of the anastomotic line the graft was flushed and the artery backbled and no thrombus was retrieved in either situation. The anastomotic line was completed and flow restored through the graft into the artery. Excellent pulse in the optical artery distal to the anastomotic line was identified. The patient received 25 units of protamine to reverse the effect of heparin. Both wounds were irrigated with antibiotic taking solution. Hemostasis was achieved. Deep tissues were closed with 203 0 Vicryl suture in both wounds and dermis was reapproximated with 4-0 Vicryl placing in a running fashion. Skin glue and appropriate dressings were applied. Patient tolerated the procedure well. Palpable dorsalis pedis pulse is noted at the completion of the case.
[2019-01-26] MEDS: hydrALAZINE HCL 20 MG/ML 1 ML VIAL IV ONE ×3 (16:53→17:16)
[2019-01-26 17:03] LABS: Glucose,Whole Blood 73 mg/dL (75-99)
[2019-01-26 17:51] LABS: Glucose,Whole Blood 150 mg/dL (75-99)
[2019-01-26] MEDS: SODIUM CHLORIDE 0.9% 1,000 ML IV SCH ×2 (19:14→21:19)
[2019-01-26] MEDS: metFORMIN 500 MG TAB PO SCH (19:15)
--- NOTE | 2019-01-26 20:04 | CONS ---
CONSULTATION DATE OF SERVICE: 01/26/2019 REASON FOR CONSULTATION: Advice regarding diabetes, multiple medical issues requested by Dr. Garnett. HISTORY OF PRESENT ILLNESS: This 53-year-old gentleman with a past medical history of diabetes, hypertension, hyperlipidemia, myocardial infarction, vascular disorder, glaucoma, peripheral vascular disease, being followed by Dr. Romo in the outpatient setting, underwent right femoral-popliteal bypass graft for right femoral occlusion by Dr. Garnett. The patient is sedated after surgery. Patient closely monitored. There is no history of fever, rigors. No history of headache, chest pains or palpitation at this time. PAST MEDICAL HISTORY: Diabetes, hypertension, hyperlipidemia, myocardial infarction, history of peripheral vascular disease. MEDICATIONS ARE: 1. Metformin 500 mg p.o. b.i.d. 2. Norvasc 10 mg q.a.m. 3. Prednisone eyedrops 1 drop b.i.d. 4. Fish oil 1 g daily. 5. Zestril 20 mg q.a.m. 6. Xalatan 0.05% 1 drop right eye q.h.s. 7. Lantus 55 units subcu q.h.s. 8. NovoLog 5 units b.i.d. 9. Amaryl 1 mg before breakfast. 10.Dorzolamide 1 drop both eyes b.i.d. 11.Vitamin D3 1000 daily. 12.Alphagan 0.2% 1 drop right eye t.i.d. 14.Aspirin 81 mg p.o. daily. ALLERGIES: LIPITOR, IBUPROFEN, LYRICA. FAMILY HISTORY: No history of heart disease or strokes in the family. SOCIAL HISTORY: Previous history of smoking, no history of alcohol intake. History of THC. REVIEW OF SYSTEMS: Review of systems could not be taken, the patient is slightly drowsy after surgery. PHYSICAL EXAMINATION: Alert and oriented x3, pulse 81, blood pressure 151/74, respiration 18, temperature normal, pulse ox 94% on 6 L. HEENT: Conjunctivae normal. Oral mucosa moist. NECK is no jugular venous distention. No carotid bruit. No lymph node enlargement. CARDIOVASCULAR SYSTEM: S1, S2. RESPIRATORY: Breath sounds diminished in the bases. Bilateral scattered rhonchi and crackles. ABDOMEN: Soft, nontender. No mass palpable. LEGS: No edema. No swelling. NERVOUS SYSTEM: Higher functions as mentioned earlier. Moves all 4 limbs. No focal motor or sensory deficits. SKIN: No ulcer. No rash. No bleeding. JOINTS: No active arthropathy. LEGS: Status post surgery. LAB INVESTIGATIONS: Lab investigations at this time shows glucose 73 and 150. ASSESSMENT: 1. Status post right femoral-popliteal bypass graft for right femoral occlusion. 2. Diabetes type 2 with some hypoglycemia. 3. Hyperlipidemia. 4. Hypertension. 5. History of myocardial infarction. 6. History of and glaucoma. 7. History of peripheral vascular disease. 8. Remote history of nicotine dependence. RECOMMENDATION: This 53-year-old gentleman who presented with multiple complex medical issues, at this time, we will monitor the patient closely. Continue the current medications, management and symptomatic treatment. Otherwise at this time I recommend to monitor the blood sugars closely and the home medication may be restarted. Accu-Cheks AC and q.h.s. scale also may be recommended. Otherwise, the patient's hypoglycemic 50% dextrose and the p.o. may be used and insulin also may be held. We will follow the patient closely. Thank you, Dr. Alanis for letting us participate in the care of this patient. MMODL / IJN: [id number] / MTDShira
[2019-01-26] MEDS ORDERED: LATANOPROST 0.005% OPHTH DROPS 2.5 ML BTL RIGHT EYE SCH (21:00)
[2019-01-26] MEDS ORDERED: INSULIN DETEMIR (LEVEMIR) 100 UNIT/ML SYR SQ SCH (21:00)
[2019-01-26 21:08] LABS: Glucose,Whole Blood 145 mg/dL (75-99)
[2019-01-26] MEDS: INSULIN ASPART (NovoLOG) 100 UNIT/ML VIAL SQ SCH ×2 (21:08)
[2019-01-26] MEDS: ATENOLOL 25 MG TAB PO SCH (21:08)
[2019-01-26 21:37] VITALS: RESP 18
[2019-01-26] MEDS: BRIMONIDINE TARTRATE 0.2% DROPS 5 ML BTL RIGHT EYE SCH (22:07)
[2019-01-26] MEDS: prednisoLONE ACETATE 1% OPHTH DROPS 5 ML BTL LEFT EYE SCH (22:07)
[2019-01-26] MEDS: DORZOLAMIDE HCL 2% DROPS 10 ML BTL BOTH EYES SCH (22:07)
[2019-01-27 02:21] LABS: Glucose,Whole Blood 137 mg/dL (75-99)
[2019-01-27] MEDS: INSULIN ASPART (NovoLOG) 100 UNIT/ML VIAL SQ SCH ×3 (05:34→13:01)
[2019-01-27] MEDS: metFORMIN 500 MG TAB PO SCH (05:34)
[2019-01-27 05:51] LABS: Anion Gap 5 mmol/L; Blood Urea Nitrogen 9 mg/dL (9-20); Calcium 9.3 mg/dL (8.4-10.2); Carbon Dioxide 27 mmol/L (22-30); Chloride 104 mmol/L (98-107); Glucose 95 mg/dL (74-99); Potassium 4.2 mmol/L (3.5-5.1); Sodium 136 mmol/L (137-145)
[2019-01-27 05:52] LABS: Glucose,Whole Blood 97 mg/dL (75-99)
[2019-01-27 05:52] LABS: Basophils % (A) 1 %; Eosinophils # (A) 0.2 k/uL (0-0.7); Eosinophils % (A) 2 %; HCT 38.5 % (39.0-53.0); HGB 12.8 gm/dL (13.0-17.5); Lymphocytes # (A) 1.7 k/uL (1.0-4.8); Lymphocytes % (A) 18 %; MCH 29.3 pg (25.0-35.0); MCHC 33.2 g/dL (31.0-37.0); MCV 88.1 fL (80.0-100.0); Mean Platelet Volume 7.4; Monocytes # (A) 0.6 k/uL (0-1.0); Monocytes % (A) 7 %; Neutrophils # (A) 6.3 k/uL (1.3-7.7); Neutrophils % (A) 71 %; Platelet Count 226 k/uL (150-450); RBC 4.37 m/uL (4.30-5.90); RDW 13.5 % (11.5-15.5)
[2019-01-27] MEDS ORDERED: GLIMEPIRIDE 1 MG TAB PO SCH (07:30)
[2019-01-27] MEDS: ATENOLOL 25 MG TAB PO SCH (08:05)
[2019-01-27] MEDS: BRIMONIDINE TARTRATE 0.2% DROPS 5 ML BTL RIGHT EYE SCH (08:18)
[2019-01-27] MEDS: DORZOLAMIDE HCL 2% DROPS 10 ML BTL BOTH EYES SCH (08:19)
[2019-01-27] MEDS: prednisoLONE ACETATE 1% OPHTH DROPS 5 ML BTL LEFT EYE SCH (08:19)
[2019-01-27] MEDS ORDERED: CLOPIDOGREL 75 MG TAB PO SCH (09:00)
[2019-01-27] MEDS ORDERED: amLODIPine 10 MG TAB PO SCH (09:00)
[2019-01-27] MEDS ORDERED: NON-FORMULARY DRUG (Omega-3 Fatty Acids/Fish Oil [Fish Oil 1,000 Mg Softgel] 1 CAP) PO SCH (09:00)
[2019-01-27] MEDS ORDERED: CHOLECALCIFEROL 1,000 UNIT TAB PO SCH (09:00)
[2019-01-27] MEDS ORDERED: DOCUSATE 100 MG CAP PO SCH (09:00)
[2019-01-27] MEDS ORDERED: LISINOPRIL 20 MG TAB PO SCH (09:00)
[2019-01-27] MEDS ORDERED: ASPIRIN 81 MG PO SCH (09:00)
[2019-01-27 11:59] LABS: Glucose,Whole Blood 176 mg/dL (75-99)
[2019-01-27] MEDS: SODIUM CHLORIDE 0.9% 1,000 ML IV SCH (13:02)
--- NOTE | 2019-01-27 13:28 | P.PN ---
Subjective 53-year-old gentleman with a history of PVD underwent right fem-pop bypass yesterday. Status post procedure is doing fine he has no issues he says that he is walking. He does not have any chest pain, racing heart, no cough, shortness of breath, he doesn't complain of any abdominal pain. Objective - Vital Signs Vital signs: Vital Signs Temp 98.2 F 01/27/19 03:00 Pulse 85 01/27/19 03:00 Resp 18 01/27/19 03:00 BP 132/77 01/27/19 03:00 Pulse Ox 96 01/27/19 03:00 Intake & Output 01/26/19 01/27/19 01/27/19 18:59 06:59 18:59 Intake Total 2402 480 120 Output Total 650 6200 Balance 1752 -5720 120 Weight 88.9 kg Intake: IV 2402 Oral 480 120 Output: Urine 550 6200 Uretheral (Hess) 1900 Estimated Blood Loss 100 - Exam On exam, alert and oriented x3. HEENT: Conjunctivae normal. eyes normal. NECK: No JVD. No thyroid enlargement. No LNs CARDIOVASCULAR: S1, S2 muffled. No murmur RESPIRATION: Breath sounds diminished in the bases. No rhonchi or crackles. No bronchial breathing. ABDOMEN: Soft, nontender . No guarding. no masses palpable. No ascites, No hepatosplenomegaly.Bowel sounds heard. LEGS: No edema. no swelling . He has dressing applied his right thigh medially status post procedure. NERVOUS SYSTEM: Cranial N 2-12 grossly normal. Moves all 4 limbs. No focal deficits. No sensory deficit. No signs of cerebellar dysfucntion. Skin: no ulcer no rash Joints: No active swelling. No inflammation. Lymphatic system. No LN neck axilla or groin. - Labs CBC & Chem 7: 01/27/19 04:58 01/27/19 04:58 Labs: Abnormal Lab Results - Last 24 Hours (Table) 01/26/19 01/26/19 01/26/19 Range/Units 14:08 14:50 16:48 Hgb (13.0-17.5) gm/dL Hct (39.0-53.0) % Sodium (137-145) mmol/L POC Glucose (mg/dL) 60 L 108 H 73 L (75-99) mg/dL 05/08/19 05/08/19 05/09/19 Range/Units 17:15 21:07 02:01 Hgb (13.0-17.5) gm/dL Hct (39.0-53.0) % Sodium (137-145) mmol/L POC Glucose (mg/dL) 150 H 145 H 137 H (75-99) mg/dL 01/27/19 01/27/19 01/27/19 Range/Units 04:58 04:58 11:55 Hgb 12.8 L (13.0-17.5) gm/dL Hct 38.5 L (39.0-53.0) % Sodium 136 L (137-145) mmol/L POC Glucose (mg/dL) 176 H (75-99) mg/dL Assessment and Plan Assessment: - Status post fem-pop bypass surgery in the right lower extremity - History of PVD - History of diabetes - History of hypertension - History of hyperlipidemia - History of tobacco use Plan - Continue current medications - Patient is doing oked by cardiology patient is okay to be discharged medically - Follow up with vascular surgery as and when needed Time with Patient: Less than 30
[2019-01-27 13:43] LABS: Hemoglobin A1C 7.3 % (4.0-6.0)
[2019-01-27 16:43] VITALS: TEMP 97.1
[2019-01-27 16:45] VITALS: BP 162/79; PULSE 73
== END 2019-01-27 14:00 | disposition home or self-care (01) | DRG 254 ==
LOC: 2ORMAIN 10:01 → 3SCARD 16:43
PROVIDERS: ADMIT Surgery; ATTEND Surgery
PROC: 041K0JL Bypass Right Femoral Artery to Popliteal Artery with Synthetic Substitute, Open Approach (ICD-10-PCS; principal; 2019-01-26 12:30)
DX: E11.51 Type 2 diabetes mellitus with diabetic peripheral angiopathy without gangrene (principal); E11.649 Type 2 diabetes mellitus with hypoglycemia without coma; I70.201 Unspecified atherosclerosis of native arteries of extremities, right leg; I10 Essential (primary) hypertension; H40.9 Unspecified glaucoma; E78.5 Hyperlipidemia, unspecified; I25.2 Old myocardial infarction; Z79.84 Long term (current) use of oral hypoglycemic drugs; Z79.4 Long term (current) use of insulin; Z79.82 Long term (current) use of aspirin; Z87.891 Personal history of nicotine dependence; Z79.899 Other long term (current) drug therapy
CPT/HCPCS: 80048; 83036; 85025

== ENCOUNTER → 2019-02-02 | Outpatient (CLI) | payer MEDICARE ==
--- NOTE | 2019-02-02 12:24 | US ---
EXAMINATION TYPE: US venous doppler duplex LE RT DATE OF EXAM: 02/02/2019 11:57 AM COMPARISON: NONE CLINICAL HISTORY: M79.661 pain rt leg, R22.41 swelling rt leg. Pain and swelling in right leg x 8 day s. Pt had right femoral popliteal bypass graft for right femoral occlusion 01-26-19. No hx of DVT per p atient. SIDE PERFORMED: Right TECHNIQUE: The lower extremity deep venous system is examined utilizing real time linear array sonog dago with graded compression, doppler sonography and color-flow sonography. VESSELS IMAGED: External Iliac Vein (EIV) Common Femoral Vein Deep Femoral Vein Greater Saphenous Vein * Femoral Vein Popliteal Vein Small Saphenous Vein * Proximal Calf Veins (* superficial vessels) Grayscale, color doppler, spectral doppler imaging performed of the deep veins of the right lower ext remity. There is normal flow, compressibility, vascular waveforms. Right Leg: No evidence of DVT in the right lower extremity. IMPRESSION: No sonographic evidence of deep venous thrombosis within the right lower extremity.
== END | disposition home or self-care (01) ==
LOC: RADUSWWP 11:08
PROVIDERS: ATTEND Internal Medicine
DX: M79.661 Pain in right lower leg (principal); R22.41 Localized swelling, mass and lump, right lower limb; Z88.6 Allergy status to analgesic agent; Z88.8 Allergy status to other drugs, medicaments and biological substances

== ENCOUNTER 2019-11-17 12:34 | Emergency (ER) | payer MEDICARE, OTHER ==
[2019-11-17 12:49] VITALS: BP 161/83; PULSE 65; RESP 16; TEMP 98
[2019-11-17] MEDS ORDERED: ACET/COD 300 MG/30 MG STARTER PACK 6 TAB BTL PO STA (13:13)
[2019-11-17] MEDS ORDERED: LIDOCAINE 1%-EPI 1:100,000 20 ML VIAL SQ STA (13:13)
[2019-11-17] MEDS ORDERED: AMOXIC-POT CLAV 875-125MG 1 EACH TAB PO STA (13:13)
--- NOTE | 2019-11-17 13:13 | ED ---
ENT HPI - General Chief complaint: Dental/Oral Stated complaint: facial pain Time Seen by Provider: 11/17/19 12:51 Source: patient Mode of arrival: ambulatory Limitations: no limitations - History of Present Illness Initial comments: Patient is a 54-year-old male presenting to emergency with a chief complaint abdominal pain. Patient does have history of poor dentition. Does not see a dentist. He states the pain is located on tooth #6. States the pain started about 2 days ago and the pain is increasing severity. Does report mild right facial tenderness in the region. Denies any night sweats fevers or chills. Denies any discharge from the mouth. Denies any other oral lesions. Denies trauma to the region. - Related Data Home Medications Medication Instructions Recorded Confirmed Atenolol 25 mg PO BID 09/11/15 01/26/19 Insulin Glargine [Lantus] 55 unit SQ HS 09/11/15 01/26/19 Latanoprost Ophth [Xalatan 0.005%] 1 drops RIGHT EYE HS 09/11/15 01/26/19 Lisinopril [Zestril] 20 mg PO QAM 09/11/15 01/26/19 amLODIPine [Norvasc] 10 mg PO QAM 09/11/15 01/26/19 metFORMIN HCL [Glucophage] 500 mg PO BID 09/11/15 01/26/19 Brimonidine Tartrate [Alphagan P 1 drops RIGHT EYE TID 10/28/16 01/26/19 0.2% Ophth Soln] Glimepiride [Amaryl] 1 mg PO [id number] 10/28/16 01/26/19 Cholecalciferol [Vitamin D3] 1,000 unit PO DAILY 09/18/18 01/26/19 Dorzolamide HCl/Pf [Dorzolamide 2% 1 drop BOTH EYES BID 09/18/18 01/26/19 Eye Drop] Chapman-3 Fatty Acids/Fish Oil [Fish 1 cap PO DAILY 09/18/18 01/26/19 Oil 1,000 mg Softgel] Prednisolone Acetate/Pf 1 drop LEFT EYE BID 09/18/18 01/26/19 [Prednisolone Acet 1% Eye Drop] Insulin Aspart [Novolog] 5 unit SQ BID 11/25/18 01/26/19 Aspirin [Adult Low Dose Aspirin EC] 81 mg PO DAILY 01/21/19 01/26/19 Previous Rx's Medication Instructions Recorded Clopidogrel [Plavix] 75 mg PO DAILY #30 tablet 01/27/19 Amoxicillin/Potassium Clav 1 tab PO Q12HR #20 tab 11/17/19 [Augmentin 875-125 Tablet] Allergies Allergy/AdvReac Type Severity Reaction Status Date / Time atorvastatin [From Lipitor] Allergy Swelling Verified 11/17/19 12:49 ibuprofen Allergy Swelling Verified 11/17/19 12:49 pregabalin [From Lyrica] Allergy Swelling Verified 11/17/19 12:49 Review of Systems ROS Statement: Those systems with pertinent positive or pertinent negative responses have been documented in the HPI. ROS Other: All systems not noted in ROS Statement are negative. Past Medical History Past Medical History: Diabetes Mellitus, Hyperlipidemia, Hypertension, Vascular Disorder Additional Past Medical History / Comment(s): uvitis glaucoma,PVD Last Myocardial Infarction Date:: 2005 History of Any Multi-Drug Resistant Organisms: None Reported Past Surgical History: Hernia Repair, Orthopedic Surgery Additional Past Surgical History / Comment(s): aortgram w/ runnoff,eye surg implant , bilateral knee Past Anesthesia/Blood Transfusion Reactions: No Reported Reaction Additional Past Anesthesia/Blood Transfusion Reaction / Comment(s): no hx blood transfusion Past Psychological History: No Psychological Hx Reported Smoking Status: Former smoker Past Alcohol Use History: Rare Past Drug Use History: None Reported - Past Family History Mother History Unknown: Yes General Exam Limitations: no limitations General appearance: alert, in no apparent distress Head exam: Present: atraumatic, normocephalic, normal inspection Eye exam: Present: normal appearance Pupils: Present: normal accommodation ENT exam: Present: normal exam, normal oropharynx (Tenderness at tooth #6. No signs of periapical abscess. No other oral lesions noted. Poor dentition.), mucous membranes moist, TM's normal bilaterally, normal external ear exam, other (Mild right-sided facial swelling noted.) Neck exam: Present: normal inspection, full ROM Respiratory exam: Present: normal lung sounds bilaterally Cardiovascular Exam: Present: regular rate, normal rhythm, normal heart sounds Extremities exam: Present: normal inspection, full ROM Back exam: Present: normal inspection, full ROM Neurological exam: Present: alert, oriented X3 Psychiatric exam: Present: normal affect, normal mood Skin exam: Present: warm, dry, intact, normal color Course Vital Signs 11/17/19 12:46 Temperature 98 F Pulse Rate 65 Respiratory 16 Rate Blood Pressure 161/83 O2 Sat by Pulse 100 Oximetry Procedures - Nerve Block Consent Obtained: verbal consent Local Anesthetic Used: LIDOCAINE 1% with EPI Amount of anesthesia used: 1 Side: right Intraoral Nerve Block: infraorbital Procedure Successful: Yes Complications: none Patient Tolerated Procedure: well, no complications Medical Decision Making - Medical Decision Making Patient is a 54-year-old male presenting to emergency Department with chief complaint of dental pain. Patient has history of poor dentition and has pain is started about 2 days ago. Patient is scheduled see his dentist tomorrow. No periapical abscesses noted. Patient does have some mild right-sided facial swelling. No signs of other oral lesions. Right inferior orbital block applied. Patient reports immediate improvement symptoms. Patient was given a Tylenol 3 starter pack and Augmentin starter pack. Patient will be discharged with a 10 day course of Augmentin. Patient advised about possible side effects of medication. Return parameters were thoroughly discussed with patient was understanding and agreeable. Case discussed with physician. Disposition Clinical Impression: Pain, dental Disposition: HOME SELF-CARE Condition: Stable Instructions (If sedation given, give patient instructions): Toothache (ED) Additional Instructions: Take prescribed medication as directed. Follow-up with primary care. Return to emergency department if symptoms worsen. Prescriptions: Amoxicillin/Potassium Clav [Augmentin 875-125 Tablet] 1 tab PO Q12HR #20 tab Is patient prescribed a controlled substance at d/c from ED?: No Referrals: Betito Romo MD [Primary Care Provider] - 1-2 days Time of Disposition: 13:51
== END 2019-11-17 13:56 | disposition home or self-care (01) ==
LOC: EC 12:34
DX: K08.89 Other specified disorders of teeth and supporting structures (principal); R22.0 Localized swelling, mass and lump, head; E11.51 Type 2 diabetes mellitus with diabetic peripheral angiopathy without gangrene; I10 Essential (primary) hypertension; H40.89 Other specified glaucoma; Z87.891 Personal history of nicotine dependence; Z88.6 Allergy status to analgesic agent; Z88.8 Allergy status to other drugs, medicaments and biological substances; Z79.4 Long term (current) use of insulin; Z79.52 Long term (current) use of systemic steroids; Z79.82 Long term (current) use of aspirin; Z79.899 Other long term (current) drug therapy
CPT/HCPCS: 64400; 99283

== ENCOUNTER 2019-12-05 11:42 | Emergency (ER) | payer MEDICARE, OTHER ==
[2019-12-05] MEDS ORDERED: ACET/COD 300 MG/30 MG STARTER PACK 6 TAB BTL PO STA (12:26)
--- NOTE | 2019-12-05 12:27 | ED ---
ENT HPI - General Chief complaint: Dental/Oral Stated complaint: tooth ache Time Seen by Provider: 12/05/19 11:57 Source: patient, RN notes reviewed Mode of arrival: ambulatory Limitations: no limitations - History of Present Illness Initial comments: This a 54-year-old male presents emergency emergency Department chief complaint of right-sided dental pain. Patient has been doing was last couple weeks. Patient did not follow-up with dentist as directed. Patient states that swelling has not worsened but she has not gone away. Patient states that he is on some sort of antibiotic week or so ago. Patient denies any fevers or chills no headache no dizziness no ocular pain or pressure. - Related Data Home Medications Medication Instructions Recorded Confirmed Atenolol 25 mg PO BID 09/11/15 01/26/19 Insulin Glargine [Lantus] 55 unit SQ HS 09/11/15 01/26/19 Latanoprost Ophth [Xalatan 0.005%] 1 drops RIGHT EYE HS 09/11/15 01/26/19 Lisinopril [Zestril] 20 mg PO QAM 09/11/15 01/26/19 amLODIPine [Norvasc] 10 mg PO QAM 09/11/15 01/26/19 metFORMIN HCL [Glucophage] 500 mg PO BID 09/11/15 01/26/19 Brimonidine Tartrate [Alphagan P 1 drops RIGHT EYE TID 10/28/16 01/26/19 0.2% Ophth Soln] Glimepiride [Amaryl] 1 mg PO AC-BRKFST 10/28/16 01/26/19 Cholecalciferol [Vitamin D3] 1,000 unit PO DAILY 09/18/18 01/26/19 Dorzolamide HCl/Pf [Dorzolamide 2% 1 drop BOTH EYES BID 09/18/18 01/26/19 Eye Drop] [place]-3 Fatty Acids/Fish Oil [Fish 1 cap PO DAILY 09/18/18 01/26/19 Oil 1,000 mg Softgel] Prednisolone Acetate/Pf 1 drop LEFT EYE BID 09/18/18 01/26/19 [Prednisolone Acet 1% Eye Drop] Insulin Aspart [Novolog] 5 unit SQ BID 11/25/18 01/26/19 Aspirin [Adult Low Dose Aspirin EC] 81 mg PO DAILY 01/21/19 01/26/19 Previous Rx's Medication Instructions Recorded Clopidogrel [Plavix] 75 mg PO DAILY #30 tablet 01/27/19 Amoxicillin/Potassium Clav 1 tab PO Q12HR #20 tab 11/17/19 [Augmentin 875-125 Tablet] Clindamycin HCl 300 mg PO Q6HR #40 cap 12/05/19 Allergies Allergy/AdvReac Type Severity Reaction Status Date / Time atorvastatin [From Lipitor] Allergy Swelling Verified 12/05/19 11:47 ibuprofen Allergy Swelling Verified 12/05/19 11:47 pregabalin [From Lyrica] Allergy Swelling Verified 12/05/19 11:47 Review of Systems ROS Statement: Those systems with pertinent positive or pertinent negative responses have been documented in the HPI. ROS Other: All systems not noted in ROS Statement are negative. Past Medical History Past Medical History: Diabetes Mellitus, Hyperlipidemia, Hypertension, Vascular Disorder Additional Past Medical History / Comment(s): uvitis glaucoma,PVD Last Myocardial Infarction Date:: 2005 History of Any Multi-Drug Resistant Organisms: None Reported Past Surgical History: Hernia Repair, Orthopedic Surgery Additional Past Surgical History / Comment(s): aortgram w/ runnoff,eye surg implant , bilateral knee Past Anesthesia/Blood Transfusion Reactions: No Reported Reaction Additional Past Anesthesia/Blood Transfusion Reaction / Comment(s): no hx blood transfusion Past Psychological History: No Psychological Hx Reported Smoking Status: Former smoker Past Alcohol Use History: Rare Past Drug Use History: None Reported - Past Family History Mother History Unknown: Yes General Exam Limitations: no limitations General appearance: alert, in no apparent distress Head exam: Present: atraumatic, normocephalic, normal inspection Eye exam: Present: normal appearance, PERRL, EOMI. Absent: scleral icterus, con junctival injection, periorbital swelling ENT exam: Present: mucous membranes moist. Absent: normal exam, normal oropharynx (Right upper dental tenderness, to tenderness noted, right-sided facial swelling no abscess noted) Neck exam: Present: normal inspection, full ROM. Absent: tenderness, meningismus, lymphadenopathy Respiratory exam: Present: normal lung sounds bilaterally. Absent: respiratory distress, wheezes, rales, rhonchi, stridor Cardiovascular Exam: Present: regular rate, normal rhythm, normal heart sounds. Absent: systolic murmur, diastolic murmur, rubs, gallop, clicks Course Vital Signs 12/05/19 11:47 Temperature 98.3 F Pulse Rate 63 Respiratory 18 Rate Blood Pressure 157/80 O2 Sat by Pulse 99 Oximetry Medical Decision Making - Medical Decision Making Patient was sent clindamycin he is advised that he needs a follow-up with dentist within the next 40 hours for further evaluation. Return parameters discussed. Disposition Clinical Impression: Dental abscess, Pain, dental Disposition: HOME SELF-CARE Condition: Stable Instructions (If sedation given, give patient instructions): Dental Abscess (ED) Additional Instructions: Please return to the Emergency Department if symptoms worsen or any other concerns. Follow-up with your dentist or Please follow up with the [facility] dental clinic. [facility] [place] [address]. Phone number for new patients or [phone] for existing patients. Prescriptions: Clindamycin HCl 300 mg PO Q6HR #40 cap Is patient prescribed a controlled substance at d/c from ED?: No Referrals: Betito Romo MD [Primary Care Provider] - 1-2 days Time of Disposition: 12:26
[2019-12-05 12:52] VITALS: BP 155/78; PULSE 64; RESP 20; TEMP 97.8
== END 2019-12-05 12:45 | disposition home or self-care (01) ==
LOC: EC 11:42
DX: K04.7 Periapical abscess without sinus (principal); E11.51 Type 2 diabetes mellitus with diabetic peripheral angiopathy without gangrene; I10 Essential (primary) hypertension; H40.89 Other specified glaucoma; H20.9 Unspecified iridocyclitis; Z87.891 Personal history of nicotine dependence; Z88.6 Allergy status to analgesic agent; Z88.8 Allergy status to other drugs, medicaments and biological substances; Z79.4 Long term (current) use of insulin; Z79.52 Long term (current) use of systemic steroids; Z79.82 Long term (current) use of aspirin; Z79.899 Other long term (current) drug therapy
CPT/HCPCS: 99282

== ENCOUNTER 2020-01-10 14:46 | Emergency (ER) | payer MEDICARE, OTHER ==
[2020-01-10 14:54] VITALS: PULSE 78; TEMP 98.5
--- NOTE | 2020-01-10 16:01 | US ---
EXAMINATION TYPE: US venous doppler duplex LE LT DATE OF EXAM: 01/10/2020 3:55 PM COMPARISON: US 09/28/2018 CLINICAL HISTORY: cramp/swelling some calf pain. Left leg pain SIDE PERFORMED: Left TECHNIQUE: The lower extremity deep venous system is examined utilizing real time linear array sonog dago with graded compression, doppler sonography and color-flow sonography. VESSELS IMAGED: External Iliac Vein (EIV) Common Femoral Vein Deep Femoral Vein Greater Saphenous Vein * Femoral Vein Popliteal Vein Small Saphenous Vein * Proximal Calf Veins (* superficial vessels) Left Leg: Positive for DVT left popliteal vein as there are is an echogenic thrombus and noncompress ibility with lack of flow. Echogenic material extends into the left calf veins with no vascular flow. IMPRESSION: Exam is positive for deep venous thrombosis within the left popliteal vein extending into the left calf veins.
--- NOTE | 2020-01-10 16:08 | ED ---
Lower Extremity Injury HPI - General Chief Complaint: Extremity Injury, Lower Stated Complaint: Cramp in L leg Time Seen by Provider: 01/10/20 15:07 Source: patient Mode of arrival: ambulatory Limitations: no limitations - History of Present Illness Initial Comments: 54yo male presents today for chief complaint of cramping sensation along the left lateral aspect of his left ankle he states extends up towards the left calf. Patient states has been ongoing for the past few days. Patient states he now notices some mild swelling. Patient states he is prescribed Plavix as well as aspirin. Patient seems hesitant when he answers that he has been taking his medications appropriately. Patient denies chest pain, denies SOB. Denies history of DVT/PE. Patient denies hemoptysis. Patient has no addition complaints. Upon arrival he appears well there is no signs of acute distress. 100% RA, no tachycardia - Related Data Home Medications Medication Instructions Recorded Confirmed Atenolol 25 mg PO BID 09/11/15 01/26/19 Insulin Glargine [Lantus] 55 unit SQ HS 09/11/15 01/26/19 Latanoprost Ophth [Xalatan 0.005%] 1 drops RIGHT EYE HS 09/11/15 01/26/19 Lisinopril [Zestril] 20 mg PO QAM 09/11/15 01/26/19 amLODIPine [Norvasc] 10 mg PO QAM 09/11/15 01/26/19 metFORMIN HCL [Glucophage] 500 mg PO BID 09/11/15 01/26/19 Brimonidine Tartrate [Alphagan P 1 drops RIGHT EYE TID 10/28/16 01/26/19 0.2% Ophth Soln] Glimepiride [Amaryl] 1 mg PO AC-BRKFST 10/28/16 01/26/19 Cholecalciferol [Vitamin D3] 1,000 unit PO DAILY 09/18/18 01/26/19 Dorzolamide HCl/Pf [Dorzolamide 2% 1 drop BOTH EYES BID 09/18/18 01/26/19 Eye Drop] [place]-3 Fatty Acids/Fish Oil [Fish 1 cap PO DAILY 09/18/18 01/26/19 Oil 1,000 mg Softgel] Prednisolone Acetate/Pf 1 drop LEFT EYE BID 09/18/18 01/26/19 [Prednisolone Acet 1% Eye Drop] Insulin Aspart [Novolog] 5 unit SQ BID 11/25/18 01/26/19 Aspirin [Adult Low Dose Aspirin EC] 81 mg PO DAILY 01/21/19 01/26/19 Previous Rx's Medication Instructions Recorded Clopidogrel [Plavix] 75 mg PO DAILY #30 tablet 01/27/19 Amoxicillin/Potassium Clav 1 tab PO Q12HR #20 tab 11/17/19 [Augmentin 875-125 Tablet] Clindamycin HCl 300 mg PO Q6HR #40 cap 12/05/19 Apixaban [Eliquis Starter Pack 0 mg PO DIRECTED 30 Days #1 pack 01/10/20 (for VTE)] Allergies Allergy/AdvReac Type Severity Reaction Status Date / Time atorvastatin [From Lipitor] Allergy Swelling Verified 01/10/20 14:54 ibuprofen Allergy Swelling Verified 01/10/20 14:54 pregabalin [From Lyrica] Allergy Swelling Verified 01/10/20 14:54 Review of Systems ROS Statement: Those systems with pertinent positive or pertinent negative responses have been documented in the HPI. ROS Other: All systems not noted in ROS Statement are negative. Past Medical History Past Medical History: Diabetes Mellitus, Hyperlipidemia, Hypertension, Vascular Disorder Additional Past Medical History / Comment(s): uvitis glaucoma,PVD Last Myocardial Infarction Date:: 2005 History of Any Multi-Drug Resistant Organisms: None Reported Past Surgical History: Hernia Repair, Orthopedic Surgery Additional Past Surgical History / Comment(s): aortgram w/ runnoff,eye surg implant , bilateral knee Past Anesthesia/Blood Transfusion Reactions: No Reported Reaction Additional Past Anesthesia/Blood Transfusion Reaction / Comment(s): no hx blood transfusion Past Psychological History: No Psychological Hx Reported Smoking Status: Former smoker Past Alcohol Use History: Rare Past Drug Use History: None Reported - Past Family History Mother History Unknown: Yes General Exam - General Exam Comments Initial Comments: General: The patient is awake and alert, in no distress Eye: +3 mm pupils are equal, round and reactive to light, extra-ocular movements are intact. No nystagmus. There is normal conjunctiva bilaterally. No signs of icterus. Ears, nose, mouth and throat: There are moist mucous membranes and no oral lesions. Neck: The neck is supple, there is no tenderness or JVD. Cardiovascular: There is a regular rate and rhythm. No murmur, rub or gallop is appreciated. Respiratory: Lungs are clear to auscultation, respirations are non-labored, breath sounds are equal. No wheezes, stridor, rales, or rhonchi. Gastrointestinal: Soft, non-distended, non-tender abdomen without masses or organomegaly noted. There is no rebound or guarding present. Musculoskeletal: Normal ROM, no tenderness. Strength 5/5. Sensation intact. Radial and DP pulses equal bilaterally 2+. Neurological: A&O x 3. CN II-XII intact grossly, There are no obvious motor or sensory deficits. Coordination appears grossly intact. Speech is normal. Skin: Skin is warm and dry and no rashes. There is some mild ankle swelling (L)--some mild left calf tenderness. Psychiatric: Cooperative, appropriate mood & affect, normal judgment. Limitations: no limitations Course Vital Signs 01/10/20 01/10/20 01/10/20 14:51 14:54 15:54 Temperature 98.5 F Pulse Rate 78 Respiratory 20 18 Rate Blood Pressure 174/82 O2 Sat by Pulse 100 99 Oximetry 01/10/20 01/10/20 01/10/20 16:13 16:30 16:54 Temperature Pulse Rate Respiratory 18 Rate Blood Pressure 161/90 164/91 O2 Sat by Pulse 99 98 99 Oximetry 01/10/20 01/10/20 01/10/20 17:00 17:30 17:47 Temperature Pulse Rate 78 Respiratory 18 Rate Blood Pressure 160/91 164/91 164/91 O2 Sat by Pulse 96 99 99 Oximetry Medical Decision Making - Medical Decision Making 54yo male presenting today for chief complaint of left ankle cramping and left calf pain. Positive for DVT on ultrasound this does not appear extensive. Patient will be started on eliquis he denies any complaints of chest pain shortness of breath he is not tachycardic or hypoxic. Patient does not appear in distress patient has good color and warmth and DP pulses. Patient case discussed including patient current medications, Dr. Singh is agreeable to discharge with eliquis. Patient instructed to discontinue plavix while on the eliquis until further recommendation from prescriber of the plavix. - Lab Data Result diagrams: 01/10/20 16:14 01/10/20 16:14 Lab Results 04/21/20 04/21/20 04/21/20 Range/Units 16:14 16:14 16:14 WBC 9.5 (3.8-10.6) k/uL RBC 5.13 (4.30-5.90) m/uL Hgb 15.0 (13.0-17.5) gm/dL Hct 44.9 (39.0-53.0) % MCV 87.4 (80.0-100.0) fL MCH 29.2 (25.0-35.0) pg MCHC 33.4 (31.0-37.0) g/dL RDW 12.4 (11.5-15.5) % Plt Count 277 (150-450) k/uL Neutrophils % 71 % Lymphocytes % 21 % Monocytes % 4 % Eosinophils % 2 % Basophils % 0 % Neutrophils # 6.7 (1.3-7.7) k/uL Lymphocytes # 2.0 (1.0-4.8) k/uL Monocytes # 0.4 (0-1.0) k/uL Eosinophils # 0.2 (0-0.7) k/uL Basophils # 0.0 (0-0.2) k/uL PT 9.5 (9.0-12.0) sec INR 0.9 (<1.2) APTT 19.5 L (22.0-30.0) sec Sodium 129 L (137-145) mmol/L Potassium 5.0 (3.5-5.1) mmol/L Chloride 93 L (98-107) mmol/L Carbon Dioxide 26 (22-30) mmol/L Anion Gap 10 mmol/L BUN 22 H (9-20) mg/dL Creatinine 1.08 (0.66-1.25) mg/dL Est GFR (CKD-EPI)AfAm 88 (>60 ml/min/1.73 sqM) Est GFR (CKD-EPI)NonAf 76 (>60 ml/min/1.73 sqM) Glucose 412 H (74-99) mg/dL Calcium 9.8 (8.4-10.2) mg/dL Total Bilirubin 0.7 (0.2-1.3) mg/dL AST 28 (17-59) U/L ALT 37 (4-49) U/L Alkaline Phosphatase 121 (38-126) U/L Total Protein 7.5 (6.3-8.2) g/dL Albumin 4.4 (3.5-5.0) g/dL Disposition Clinical Impression: DVT (deep venous thrombosis), Calf cramp, Low sodium levels, Elevated glucose Disposition: HOME SELF-CARE Condition: Good Instructions (If sedation given, give patient instructions): Deep Vein Thrombosis (ED) Additional Instructions: Please use medication as discussed. Please follow-up with family doctor in the next 2 days. IMMEDIATE RETURN FOR CHEST PAIN, SHORTNESS OF BREATH, INCREASING LEG SWELLING. Please return to emergency room if the symptoms increase or worsen or for any other concerns. Prescriptions: Apixaban [Eliquis Starter Pack (for VTE)] 0 mg PO DIRECTED 30 Days #1 pack Is patient prescribed a controlled substance at d/c from ED?: No Referrals: Betito Romo MD [Primary Care Provider] - 1-2 days Time of Disposition: 16:12
[2020-01-10 16:41] LABS: Basophils % (A) 0 %; Eosinophils # (A) 0.2 k/uL (0-0.7); Eosinophils % (A) 2 %; HCT 44.9 % (39.0-53.0); Lymphocytes % (A) 21 %; MCH 29.2 pg (25.0-35.0); MCHC 33.4 g/dL (31.0-37.0); MCV 87.4 fL (80.0-100.0); Mean Platelet Volume 8.2; Monocytes # (A) 0.4 k/uL (0-1.0); Monocytes % (A) 4 %; Neutrophils # (A) 6.7 k/uL (1.3-7.7); Neutrophils % (A) 71 %; Platelet Count 277 k/uL (150-450); RBC 5.13 m/uL (4.30-5.90); RDW 12.4 % (11.5-15.5); WBC 9.5 k/uL (3.8-10.6)
[2020-01-10 16:52] LABS: Albumin 4.4 g/dL (3.5-5.0); Calcium 9.8 mg/dL (8.4-10.2); Total Bilirubin 0.7 mg/dL (0.2-1.3); Total Protein 7.5 g/dL (6.3-8.2)
[2020-01-10] MEDS ORDERED: SODIUM CHLORIDE 0.9% 500 ML 500 ML IV ONE (16:52)
[2020-01-10 17:04] LABS: INR 0.9 (<1.2); Prothrombin Time 9.5 sec (9.0-12.0)
[2020-01-10] MEDS ORDERED: INSULIN REGULAR 100 UNIT/ML VIAL SQ ONE (17:22)
[2020-01-10 17:24] LABS: Partial Thromboplastin Time 19.5 sec (22.0-30.0)
[2020-01-10] MEDS ORDERED: APIXABAN 5 MG TAB PO STA (17:25)
[2020-01-10 17:35] VITALS: RESP 18
[2020-01-10 17:37] VITALS: BP 164/91
== END 2020-01-10 17:48 | disposition home or self-care (01) ==
LOC: EC 14:46
DX: I82.432 Acute embolism and thrombosis of left popliteal vein (principal); E11.9 Type 2 diabetes mellitus without complications; E87.1 Hypo-osmolality and hyponatremia; E78.5 Hyperlipidemia, unspecified; I10 Essential (primary) hypertension; H40.89 Other specified glaucoma; Z79.4 Long term (current) use of insulin; Z79.82 Long term (current) use of aspirin; Z79.899 Other long term (current) drug therapy; Z87.891 Personal history of nicotine dependence; Z88.8 Allergy status to other drugs, medicaments and biological substances; Z88.6 Allergy status to analgesic agent; Z96.1 Presence of intraocular lens
CPT/HCPCS: 36415; 80053; 85025; 85610; 85730; 99284

== ENCOUNTER 2020-01-11 08:55 | Emergency (ER) | payer MEDICARE, OTHER ==
[2020-01-11 09:01] VITALS: BP 157/90; PULSE 93; RESP 18; TEMP 98.3
[2020-01-11] MEDS ORDERED: ACET/COD 300 MG/30 MG STARTER PACK 6 TAB BTL PO STA (09:07)
[2020-01-11] MEDS ORDERED: HYDROcodone/APAP 5-325MG 1 EACH TAB PO STA (09:07)
[2020-01-11] MEDS ORDERED: APIXABAN 5 MG TAB PO STA (09:07)
--- NOTE | 2020-01-11 09:08 | ED ---
Extremity Problem HPI - General Chief complaint: Extremity Problem,Nontraumatic Stated complaint: LT leg swollen Time Seen by Provider: 01/11/20 09:04 Source: patient, RN notes reviewed Mode of arrival: wheelchair Limitations: physical limitation - History of Present Illness Initial comments: 54-year-old male present emergency from chief complaint left leg pain. Patient was seen in emergency from yesterday was diagnosed with a left leg DVT. Patient was given a dose of Eliquis in the emergency department. Patient states that his prescription is not ready to be picked up yet he does not have his next dose. Patient states he also felt that there was slightly more swollen than yesterday. He can denies any chest pain, shortness breath, dizziness, headache, abdominal pain. He states he just has some mild left calf pain. He has no paresthesias no difficulty ambulating. - Related Data Home Medications Medication Instructions Recorded Confirmed Atenolol 25 mg PO BID 09/11/15 01/26/19 Insulin Glargine [Lantus] 55 unit SQ HS 09/11/15 01/26/19 Latanoprost Ophth [Xalatan 0.005%] 1 drops RIGHT EYE HS 09/11/15 01/26/19 Lisinopril [Zestril] 20 mg PO QAM 09/11/15 01/26/19 amLODIPine [Norvasc] 10 mg PO QAM 09/11/15 01/26/19 metFORMIN HCL [Glucophage] 500 mg PO BID 09/11/15 01/26/19 Brimonidine Tartrate [Alphagan P 1 drops RIGHT EYE TID 10/28/16 01/26/19 0.2% Ophth Soln] Glimepiride [Amaryl] 1 mg PO AC-BRKFST 10/28/16 01/26/19 Cholecalciferol [Vitamin D3] 1,000 unit PO DAILY 09/18/18 01/26/19 Dorzolamide HCl/Pf [Dorzolamide 2% 1 drop BOTH EYES BID 09/18/18 01/26/19 Eye Drop] [place]-3 Fatty Acids/Fish Oil [Fish 1 cap PO DAILY 09/18/18 01/26/19 Oil 1,000 mg Softgel] Prednisolone Acetate/Pf 1 drop LEFT EYE BID 09/18/18 01/26/19 [Prednisolone Acet 1% Eye Drop] Insulin Aspart [Novolog] 5 unit SQ BID 11/25/18 01/26/19 Aspirin [Adult Low Dose Aspirin EC] 81 mg PO DAILY 01/21/19 01/26/19 Previous Rx's Medication Instructions Recorded Clopidogrel [Plavix] 75 mg PO DAILY #30 tablet 01/27/19 Amoxicillin/Potassium Clav 1 tab PO Q12HR #20 tab 11/17/19 [Augmentin 875-125 Tablet] Clindamycin HCl 300 mg PO Q6HR #40 cap 12/05/19 Apixaban [Eliquis Starter Pack 0 mg PO DIRECTED 30 Days #1 pack 01/10/20 (for VTE)] Allergies Allergy/AdvReac Type Severity Reaction Status Date / Time atorvastatin [From Lipitor] Allergy Swelling Verified 01/11/20 09:01 ibuprofen Allergy Swelling Verified 01/11/20 09:01 pregabalin [From Lyrica] Allergy Swelling Verified 01/11/20 09:01 Review of Systems ROS Statement: Those systems with pertinent positive or pertinent negative responses have been documented in the HPI. ROS Other: All systems not noted in ROS Statement are negative. Past Medical History Past Medical History: Diabetes Mellitus, Hyperlipidemia, Hypertension, Vascular Disorder Additional Past Medical History / Comment(s): uvitis glaucoma,PVD, dvt to lower left leg Last Myocardial Infarction Date:: 2005 History of Any Multi-Drug Resistant Organisms: None Reported Past Surgical History: Hernia Repair, Orthopedic Surgery Additional Past Surgical History / Comment(s): aortgram w/ runnoff,eye surg implant , bilateral knee Past Anesthesia/Blood Transfusion Reactions: No Reported Reaction Additional Past Anesthesia/Blood Transfusion Reaction / Comment(s): no hx blood transfusion Past Psychological History: No Psychological Hx Reported Smoking Status: Former smoker Past Alcohol Use History: Rare Past Drug Use History: Marijuana - Past Family History Mother History Unknown: Yes General Exam Limitations: no limitations General appearance: alert, in no apparent distress Head exam: Present: atraumatic, normocephalic, normal inspection Eye exam: Present: normal appearance, PERRL, EOMI. Absent: scleral icterus, conjunctival injection, periorbital swelling ENT exam: Present: normal exam, mucous membranes moist Neck exam: Present: normal inspection, full ROM. Absent: tenderness, meningismus, lymphadenopathy Respiratory exam: Present: normal lung sounds bilaterally. Absent: respiratory distress, wheezes, rales, rhonchi, stridor Cardiovascular Exam: Present: regular rate, normal rhythm, normal heart sounds. Absent: systolic murmur, diastolic murmur, rubs, gallop, clicks Extremities exam: Present: other (There is very minimal left lower leg swelling there is minimal calf tenderness, pedal pulses are equal bilaterally, neurovascular intact full range of motion bilateral lower extremities.) Neurological exam: Present: alert, oriented X3, reflexes normal. Absent: motor sensory deficit Skin exam: Present: warm, dry, intact, normal color. Absent: rash Course Vital Signs 01/11/20 08:58 Temperature 98.3 F Pulse Rate 93 Respiratory 18 Rate Blood Pressure 157/90 O2 Sat by Pulse 98 Oximetry Medical Decision Making - Medical Decision Making Patient was evaluated yesterday and records were reviewed patient was given his dose of Eliquis now patient provided pain control. Patient we discharge patient has no complaints of chest pain or shortness of breath. We did give very strict return parameters patient agrees to plan. Patient agrees to follow-up with PCP. Disposition Clinical Impression: Left leg DVT Disposition: HOME SELF-CARE Condition: Stable Instructions (If sedation given, give patient instructions): Deep Vein Thrombosis (ED) Additional Instructions: Please pickling solution maker your prescription today as directed. Please return to the Emergency Department if symptoms worsen or any other concerns. Is patient prescribed a controlled substance at d/c from ED?: No Referrals: Betito Romo MD [Primary Care Provider] - 1-2 days Time of Disposition: 09:08
== END 2020-01-11 09:17 | disposition home or self-care (01) ==
LOC: EC 08:55
DX: I82.4Z2 Acute embolism and thrombosis of unspecified deep veins of left distal lower extremity (principal); E78.5 Hyperlipidemia, unspecified; I10 Essential (primary) hypertension; E11.39 Type 2 diabetes mellitus with other diabetic ophthalmic complication; E11.51 Type 2 diabetes mellitus with diabetic peripheral angiopathy without gangrene; H42 Glaucoma in diseases classified elsewhere; I25.2 Old myocardial infarction; Z79.4 Long term (current) use of insulin; Z79.899 Other long term (current) drug therapy; Z79.82 Long term (current) use of aspirin; Z88.6 Allergy status to analgesic agent; Z88.8 Allergy status to other drugs, medicaments and biological substances; Z87.891 Personal history of nicotine dependence; Z86.718 Personal history of other venous thrombosis and embolism
CPT/HCPCS: 99283

== ENCOUNTER 2020-02-01 15:24 | Inpatient (IN) | payer MEDICARE, OTHER ==
[2020-02-01] MEDS ORDERED: HEPARIN SODIUM,PORCINE 5,000 UNIT/ML 1 ML VIAL IV PRN (16:19)
[2020-02-01] MEDS ORDERED: HEPARIN SODIUM,PORCINE 5,000 UNIT/ML 1 ML VIAL IV ONE (16:19)
[2020-02-01 16:28] LABS: Basophils % (A) 1 %; Eosinophils # (A) 0.2 k/uL (0-0.7); Eosinophils % (A) 3 %; HCT 44.4 % (39.0-53.0); HGB 14.4 gm/dL (13.0-17.5); Lymphocytes # (A) 1.8 k/uL (1.0-4.8); Lymphocytes % (A) 28 %; MCH 29.3 pg (25.0-35.0); MCHC 32.4 g/dL (31.0-37.0); MCV 90.6 fL (80.0-100.0); Monocytes # (A) 0.5 k/uL (0-1.0); Monocytes % (A) 7 %; Neutrophils # (A) 3.7 k/uL (1.3-7.7); Neutrophils % (A) 58 %; Platelet Count 250 k/uL (150-450); WBC 6.3 k/uL (3.8-10.6)
[2020-02-01] MEDS ORDERED: HEPARIN SOD,PORK IN 0.45% NACL 25,000 UNIT in 0.45% NACL 1 250ML.BAG IV SCH (16:30)
[2020-02-01 16:37] LABS: Albumin 4.4 g/dL (3.5-5.0); Calcium 9.6 mg/dL (8.4-10.2); Potassium 4.7 mmol/L (3.5-5.1); Total Protein 7.9 g/dL (6.3-8.2)
[2020-02-01] MEDS ORDERED: MORPHINE SULFATE 4 MG/ML SYRINGE IM STA (16:44)
[2020-02-01] MEDS ORDERED: MORPHINE SULFATE 4 MG/ML SYRINGE IVP STA (16:49)
[2020-02-01 17:09] LABS: INR 0.9 (<1.2); Prothrombin Time 9.7 sec (9.0-12.0)
[2020-02-01 17:10] LABS: Partial Thromboplastin Time 19.1 sec (22.0-30.0)
[2020-02-01] MEDS ORDERED: SODIUM CHLORIDE 0.9% 500 ML 500 ML IV ONE (18:00)
--- NOTE | 2020-02-01 18:04 | ED ---
General Adult HPI - General Chief complaint: Extremity Problem,Nontraumatic Stated complaint: toe pain Time Seen by Provider: 02/01/20 15:33 Source: patient, RN notes reviewed, old records reviewed Mode of arrival: wheelchair Limitations: no limitations - History of Present Illness Initial comments: 54-year-old male patient past medical history significant for bilateral more artery stent performed in 2019 presents to ED for evaluation of left great toe p ain for the last 4 days. He does report that he has been having cramps in his left leg for approximately last 2 weeks. The chest pain shortness of breath. Denies any other complaints at this time. Systemic: Pt denies fatigue, fever/chills, rash. Pt denies weakness, night sweats, weight loss. Neuro: Pt denies headache, visual disturbances, syncope or pre-syncope. HEENT: Pt denies ocular discharge or irritation, otalgia, rhinorrhea, pharyngitis or notable lymphadenopathy. Cardiopulmonary: Pt denies chest pain, SOB, heart palpitations, dyspnea on exertion. Abdominal/GI: Pt denies abdominal pain, n/v/d. : Pt denies dysuria, burning w/ urination, frequency/urgency. Denies new onset urinary or bowel incontinence. MSK: Pt denies myalgia, loss of strength or function in extremities. Neuro: Pt denies new onset weakness, paresthesias. - Related Data Home Medications Medication Instructions Recorded Confirmed Lisinopril [Zestril] 20 mg PO DAILY 09/11/15 02/01/20 RX: Atenolol 25 mg PO BID 09/11/15 02/01/20 amLODIPine [Norvasc] 10 mg PO DAILY 09/11/15 02/01/20 metFORMIN HCL [Glucophage] 500 mg PO BID 09/11/15 02/01/20 Insulin Aspart [Novolog] 5 unit SQ TID-W/MEALS 11/25/18 02/01/20 Aspirin [Adult Low Dose Aspirin EC] 81 mg PO DAILY 01/21/19 02/01/20 Glimepiride [Amaryl] 2 mg PO DAILY 02/01/20 02/01/20 Simvastatin [Zocor] 20 mg PO HS 02/01/20 02/01/20 Previous Rx's Medication Instructions Recorded Clopidogrel [Plavix] 75 mg PO DAILY #30 tablet 01/27/19 Apixaban [Eliquis Starter Pack 0 mg PO DIRECTED 30 Days #1 pack 01/10/20 (for VTE)] Allergies Allergy/AdvReac Type Severity Reaction Status Date / Time atorvastatin [From Lipitor] Allergy Swelling Verified 02/01/20 18:31 ibuprofen Allergy Swelling Verified 02/01/20 18:31 pregabalin [From Lyrica] Allergy Swelling Verified 02/01/20 18:31 Review of Systems ROS Statement: Those systems with pertinent positive or pertinent negative responses have been documented in the HPI. ROS Other: All systems not noted in ROS Statement are negative. Past Medical History Past Medical History: Diabetes Mellitus, Hyperlipidemia, Hypertension, Vascular Disorder Additional Past Medical History / Comment(s): uvitis glaucoma,PVD, dvt to lower left leg Last Myocardial Infarction Date:: 2005 History of Any Multi-Drug Resistant Organisms: None Reported Past Surgical History: Hernia Repair, Orthopedic Surgery Additional Past Surgical History / Comment(s): aortgram w/ runnoff,eye surg implant , bilateral knee Past Anesthesia/Blood Transfusion Reactions: No Reported Reaction Additional Past Anesthesia/Blood Transfusion Reaction / Comment(s): no hx blood transfusion Past Psychological History: No Psychological Hx Reported Smoking Status: Former smoker Past Alcohol Use History: Rare Past Drug Use History: Marijuana - Past Family History Mother History Unknown: Yes General Exam - General Exam Comments Initial Comments: Constitutional: NAD, AOX3, Pt has pleasant affect. HEENT: NC/AT, trachea midline, neck supple, no lymphadenopathy. Posterior pharynx non erythematous, without exudates. External ears appear normal, without discharge. Mucous membranes moist. Eyes PERRLA, EOM intact. There is no scleral icterus. No pallor noted. Cardiopulmonary: RRR, no murmurs, rubs or gallops, no JVD noted. Lungs CTAB in anterior and posterior zapien. No peripheral edema. Abdominal exam: Abdomen soft and non-distended. Abdomen non-tender to palpation in all 4 quadrants. Bowel sounds active in LLQ. No hepatosplenomegaly. No ecchymosis Neuro: CN II-XII grossly intact. No nuchal rigidity. No raccon eyes, no matias sign, no hemotympanum. No cervical spinal tenderness. MSK: No posterior calf tenderness bilaterally, homans sign negative bilaterally. Left great toe is dusky appearing. Rest the foot is warm with normal color. Left great toe is cold. Unable to palpate pulses and left lower extremity. +1 pulses right lower extremity. Rest of left lower extremity is warm. Left great toe is mildly tender. Range of motion is intact. Limitations: no limitations Course Vital Signs 02/01/20 02/01/20 02/01/20 15:26 16:20 16:30 Temperature 97.9 F Pulse Rate 71 62 65 Respiratory 18 20 18 Rate Blood Pressure 124/84 148/83 148/83 O2 Sat by Pulse 100 100 99 Oximetry 02/01/20 02/01/20 02/01/20 17:00 17:30 18:00 Temperature Pulse Rate 61 66 70 Respiratory 18 18 18 Rate Blood Pressure 152/88 161/90 169/88 O2 Sat by Pulse 99 100 Oximetry 02/01/20 18:30 Temperature 98.2 F Pulse Rate 60 Respiratory 18 Rate Blood Pressure 164/89 O2 Sat by Pulse 100 Oximetry Medical Decision Making - Medical Decision Making 54-year-old male patient past medical history significant for bilateral more artery stent performed in 2019 presents to ED for evaluation of left great toe pain for the last 4 days. He does report that he has been having cramps in his left leg for approximately last 2 weeks. The chest pain shortness of breath. Denies any other complaints at this time. Patient will signs are stable, afebrile. Physical exam displayed: No posterior calf tenderness bilaterally, homans sign negative bilaterally. Left great toe is dusky appearing. Rest the foot is warm with normal color. Left great toe is cold. Unable to palpate pulses and left lower extremity. +1 pulses right lower extremity. Rest of left lower extremity is warm. Left great toe is mildly tender. Vascular surgery was consulted immediately, Dr. Hess reccomended initiating heparin. Patient is anticoagulated on eliquis, she is aware of that. Labs investigations revealed mild increased creatinine, hyperglycemia. Patient was evaluated by Dr. Hess and reccomended admission and continuation of heparin. Patient denies contraindications to anticoagulation. Case discussed with Dr. Amador. - Lab Data Result diagrams: 02/01/20 16:00 02/01/20 16:00 Lab Results 02/01/20 02/01/20 02/01/20 Range/Units 16:00 16:00 16:00 WBC 6.3 (3.8-10.6) k/uL RBC 4.90 (4.30-5.90) m/uL Hgb 14.4 (13.0-17.5) gm/dL Hct 44.4 (39.0-53.0) % MCV 90.6 (80.0-100.0) fL MCH 29.3 (25.0-35.0) pg MCHC 32.4 (31.0-37.0) g/dL RDW 13.0 (11.5-15.5) % Plt Count 250 (150-450) k/uL Neutrophils % 58 % Lymphocytes % 28 % Monocytes % 7 % Eosinophils % 3 % Basophils % 1 % Neutrophils # 3.7 (1.3-7.7) k/uL Lymphocytes # 1.8 (1.0-4.8) k/uL Monocytes # 0.5 (0-1.0) k/uL Eosinophils # 0.2 (0-0.7) k/uL Basophils # 0.0 (0-0.2) k/uL PT 9.7 (9.0-12.0) sec INR 0.9 (<1.2) APTT 19.1 L (22.0-30.0) sec Sodium 131 L (137-145) mmol/L Potassium 4.7 (3.5-5.1) mmol/L Chloride 95 L (98-107) mmol/L Carbon Dioxide 27 (22-30) mmol/L Anion Gap 9 mmol/L BUN 16 (9-20) mg/dL Creatinine 1.53 H (0.66-1.25) mg/dL Est GFR (CKD-EPI)AfAm 58 (>60 ml/min/1.73 sqM) Est GFR (CKD-EPI)NonAf 50 (>60 ml/min/1.73 sqM) Glucose 386 H (74-99) mg/dL Plasma Lactic Acid Todd (0.7-2.0) mmol/L Calcium 9.6 (8.4-10.2) mg/dL Total Bilirubin 1.0 (0.2-1.3) mg/dL AST 49 (17-59) U/L ALT 39 (4-49) U/L Alkaline Phosphatase 82 (38-126) U/L Total Protein 7.9 (6.3-8.2) g/dL Albumin 4.4 (3.5-5.0) g/dL 02/01/20 Range/Units 16:00 WBC (3.8-10.6) k/uL RBC (4.30-5.90) m/uL Hgb (13.0-17.5) gm/dL Hct (39.0-53.0) % MCV (80.0-100.0) fL MCH (25.0-35.0) pg MCHC (31.0-37.0) g/dL RDW (11.5-15.5) % Plt Count (150-450) k/uL Neutrophils % % Lymphocytes % % Monocytes % % Eosinophils % % Basophils % % Neutrophils # (1.3-7.7) k/uL Lymphocytes # (1.0-4.8) k/uL Monocytes # (0-1.0) k/uL Eosinophils # (0-0.7) k/uL Basophils # (0-0.2) k/uL PT (9.0-12.0) sec INR (<1.2) APTT (22.0-30.0) sec Sodium (137-145) mmol/L Potassium (3.5-5.1) mmol/L Chloride (98-107) mmol/L Carbon Dioxide (22-30) mmol/L Anion Gap mmol/L BUN (9-20) mg/dL Creatinine (0.66-1.25) mg/dL Est GFR (CKD-EPI)AfAm (>60 ml/min/1.73 sqM) Est GFR (CKD-EPI)NonAf (>60 ml/min/1.73 sqM) Glucose (74-99) mg/dL Plasma Lactic Acid Todd 1.9 (0.7-2.0) mmol/L Calcium (8.4-10.2) mg/dL Total Bilirubin (0.2-1.3) mg/dL AST (17-59) U/L ALT (4-49) U/L Alkaline Phosphatase (38-126) U/L Total Protein (6.3-8.2) g/dL Albumin (3.5-5.0) g/dL - EKG Data -: EKG Interpreted by Me (and Dr. Amador ) EKG Comments: Ventricular rate 65,. Vital 154, QRS 80, QT/QTc 424/440. Sinus rhythm with occasional premaature ventricular complexes, left axis deviation, voltage criteria for LVH, possible inferior/lateral infarct age interment. No concern for acute ischemia at this time. Disposition Clinical Impression: Ischemic toe Disposition: ADMITTED IP TO THIS HOSP Condition: Serious Is patient prescribed a controlled substance at d/c from ED?: No
--- NOTE | 2020-02-01 18:12 | P.GSCN ---
History of Present Illness Consult date: 02/01/20 History of present illness: Patient is 54-year-old male with past surgical history including bilateral femoral to popliteal bypasses. The left was done in August 2018, the right was done in January 2019. He presents to the ER today with pain in his left great toe. He states is going on for the past 3-4 days. He states approximately 3-4 weeks ago he was having pain in his left leg and down into his calf, it did not occur at any certain times. He thinks that approximately a few months ago he was having no significant noticeable issues with ambulation. He has not seen Dr. Dennison in follow-up since missing his last appointment. He was diagnosed about a month ago with a DVT in his left popliteal vein and was initiated on Eliquis. He has been taking this as prescribed. He denies any fevers, chills, nausea or vomiting. He denies any pain up into his foot or calf. He denies any chest pains or problems breathing. He denies any irregular heart rate Past Medical History Past Medical History: Diabetes Mellitus, Hyperlipidemia, Hypertension, Vascular Disorder Additional Past Medical History / Comment(s): uvitis glaucoma,PVD, dvt to lower left leg Last Myocardial Infarction Date:: 2005 History of Any Multi-Drug Resistant Organisms: None Reported Past Surgical History: Hernia Repair, Orthopedic Surgery Additional Past Surgical History / Comment(s): aortgram w/ runnoff,eye surg implant , bilateral knee Past Anesthesia/Blood Transfusion Reactions: No Reported Reaction Additional Past Anesthesia/Blood Transfusion Reaction / Comm: no hx blood transfusion Past Psychological History: No Psychological Hx Reported Smoking Status: Former smoker Past Alcohol Use History: Rare Past Drug Use History: Marijuana - Past Family History Mother History Unknown: Yes Medications and Allergies Home Medications Medication Instructions Recorded Confirmed Type Atenolol 25 mg PO BID 09/11/15 01/26/19 History Insulin Glargine [Lantus] 55 unit SQ HS 09/11/15 01/26/19 History Latanoprost Ophth [Xalatan 0.005%] 1 drops RIGHT EYE HS 09/11/15 01/26/19 History Lisinopril [Zestril] 20 mg PO QAM 09/11/15 01/26/19 History amLODIPine [Norvasc] 10 mg PO QAM 09/11/15 01/26/19 History metFORMIN HCL [Glucophage] 500 mg PO BID 09/11/15 01/26/19 History Brimonidine Tartrate [Alphagan P 1 drops RIGHT EYE TID 10/28/16 01/26/19 History 0.2% Ophth Soln] Glimepiride [Amaryl] 1 mg PO [id number] 10/28/16 01/26/19 History Cholecalciferol [Vitamin D3] 1,000 unit PO DAILY 09/18/18 01/26/19 History Dorzolamide HCl/Pf [Dorzolamide 2% 1 drop BOTH EYES BID 09/18/18 01/26/19 History Eye Drop] Pocola-3 Fatty Acids/Fish Oil [Fish 1 cap PO DAILY 09/18/18 01/26/19 History Oil 1,000 mg Softgel] Prednisolone Acetate/Pf 1 drop LEFT EYE BID 09/18/18 01/26/19 History [Prednisolone Acet 1% Eye Drop] Insulin Aspart [Novolog] 5 unit SQ BID 11/25/18 01/26/19 History Aspirin [Adult Low Dose Aspirin EC] 81 mg PO DAILY 01/21/19 01/26/19 History Clopidogrel [Plavix] 75 mg PO DAILY #30 tablet 01/27/19 Rx Amoxicillin/Potassium Clav 1 tab PO Q12HR #20 tab 11/17/19 Rx [Augmentin 875-125 Tablet] Clindamycin HCl 300 mg PO Q6HR #40 cap 12/05/19 Rx Apixaban [Eliquis Starter Pack 0 mg PO DIRECTED 30 Days #1 pack 01/10/20 Rx (for VTE)] Allergies Allergy/AdvReac Type Severity Reaction Status Date / Time atorvastatin [From Lipitor] Allergy Swelling Verified 02/01/20 15:28 ibuprofen Allergy Swelling Verified 02/01/20 15:28 pregabalin [From Lyrica] Allergy Swelling Verified 02/01/20 15:28 Surgical - Exam Vital Signs Temp Pulse Resp BP Pulse Ox 97.9 F 71 18 124/84 100 02/01/20 15:26 02/01/20 15:26 02/01/20 15:26 02/01/20 15:26 02/01/20 15:26 Genitals a pleasant cooperative -[place] Citizen male in no acute distress. HEENT is normocephalic, atraumatic, excellent motion intact. Heart is regular in rate and rhythm at this time. Lungs are clear bilaterally. Abdomen is soft, nontender nondistended. Bilateral groins show well-healed surgical scars. Palpable femoral pulses bilaterally. On the right leg there is a palpable pulse in the graft. Right lower extremity is warm and dry. Motor sensory intact. On the left, there is a weakly palpable popliteal pulse. There is a weak mult iphasic signal. The left foot is motor sensory intact with decreased motion of the great toe due to pain. Delayed capillary refill of left great toe. Able to move toes 2 through 5. Able to move ankle. No calf pain. Normal mood and affect. Cranial nerves II through XII grossly intact. Results - Labs 02/01/20 16:00 02/01/20 16:00 Abnormal Lab Results - Last 24 Hours (Table) 02/01/20 02/01/20 Range/Units 16:00 16:00 APTT 19.1 L (22.0-30.0) sec Sodium 131 L (137-145) mmol/L Chloride 95 L (98-107) mmol/L Creatinine 1.53 H (0.66-1.25) mg/dL Glucose 386 H (74-99) mg/dL Diabetes panel 02/01/20 Range/Units 16:00 Sodium 131 L (137-145) mmol/L Potassium 4.7 (3.5-5.1) mmol/L Chloride 95 L (98-107) mmol/L Carbon Dioxide 27 (22-30) mmol/L BUN 16 (9-20) mg/dL Creatinine 1.53 H (0.66-1.25) mg/dL Glucose 386 H (74-99) mg/dL Calcium 9.6 (8.4-10.2) mg/dL AST 49 (17-59) U/L ALT 39 (4-49) U/L Alkaline Phosphatase 82 (38-126) U/L Total Protein 7.9 (6.3-8.2) g/dL Albumin 4.4 (3.5-5.0) g/dL Calcium panel 02/01/20 Range/Units 16:00 Calcium 9.6 (8.4-10.2) mg/dL Albumin 4.4 (3.5-5.0) g/dL Pituitary panel 02/01/20 Range/Units 16:00 Sodium 131 L (137-145) mmol/L Potassium 4.7 (3.5-5.1) mmol/L Chloride 95 L (98-107) mmol/L Carbon Dioxide 27 (22-30) mmol/L BUN 16 (9-20) mg/dL Creatinine 1.53 H (0.66-1.25) mg/dL Glucose 386 H (74-99) mg/dL Calcium 9.6 (8.4-10.2) mg/dL Adrenal panel 02/01/20 Range/Units 16:00 Sodium 131 L (137-145) mmol/L Potassium 4.7 (3.5-5.1) mmol/L Chloride 95 L (98-107) mmol/L Carbon Dioxide 27 (22-30) mmol/L BUN 16 (9-20) mg/dL Creatinine 1.53 H (0.66-1.25) mg/dL Glucose 386 H (74-99) mg/dL Calcium 9.6 (8.4-10.2) mg/dL Total Bilirubin 1.0 (0.2-1.3) mg/dL AST 49 (17-59) U/L ALT 39 (4-49) U/L Alkaline Phosphatase 82 (38-126) U/L Total Protein 7.9 (6.3-8.2) g/dL Albumin 4.4 (3.5-5.0) g/dL Assessment and Plan Assessment: Ischemic changes to left great toe, question acute on chronic Peripheral arterial disease with bilateral superficial femoral artery occlusions status post bilateral femoral to popliteal artery bypass with PTFE Recent DVT, now on oral anticoagulation Plan: At this time the patient remains motor sensory intact although slightly decreased in the left great toe. There is some cyanotic nature to it. At this point we will heparinize the patient fully and obtain imaging the ultrasound with graft surveillance. There is a likelihood the patient will need to go to the [facility] for angiogram with possible intervention possible thrombolytics. Risks and benefits were discussed with him. He seemingly understands and is willing to proceed as such.
[2020-02-01] MEDS ORDERED: HYDROmorphone 0.5 MG/0.5 ML SYRINGE IVP STA (18:30)
[2020-02-01] MEDS ORDERED: NALOXONE 0.4 MG/ML 1 ML VIAL IV PRN (18:41)
[2020-02-01 21:02] LABS: Glucose,Whole Blood 453 mg/dL (75-99)
[2020-02-01] MEDS: INSULIN ASPART (NovoLOG) 100 UNIT/ML VIAL SQ SCH (21:05)
[2020-02-01] MEDS: MORPHINE SULFATE 4 MG/ML SYRINGE IV PRN (21:08)
[2020-02-02] MEDS: MORPHINE SULFATE 4 MG/ML SYRINGE IV PRN ×2 (03:05→11:46)
[2020-02-02] MEDS ORDERED: HYDROmorphone 0.5 MG/0.5 ML SYRINGE IVP STA ×2 (03:51→06:11)
[2020-02-02 06:29] LABS: Glucose,Whole Blood 283 mg/dL (75-99)
[2020-02-02 06:31] LABS: Basophils % (A) 1 %; Eosinophils # (A) 0.2 k/uL (0-0.7); Eosinophils % (A) 3 %; HCT 40.1 % (39.0-53.0); HGB 13.2 gm/dL (13.0-17.5); Lymphocytes # (A) 3.5 k/uL (1.0-4.8); Lymphocytes % (A) 55 %; MCH 29.8 pg (25.0-35.0); MCHC 32.8 g/dL (31.0-37.0); MCV 90.8 fL (80.0-100.0); Mean Platelet Volume 7.8; Monocytes # (A) 0.4 k/uL (0-1.0); Monocytes % (A) 5 %; Neutrophils # (A) 2.2 k/uL (1.3-7.7); Neutrophils % (A) 34 %; Platelet Count 204 k/uL (150-450); RBC 4.42 m/uL (4.30-5.90); RDW 12.9 % (11.5-15.5); WBC 6.5 k/uL (3.8-10.6)
[2020-02-02] MEDS: INSULIN ASPART (NovoLOG) 100 UNIT/ML VIAL SQ SCH ×7 (06:38→21:36)
[2020-02-02 07:36] LABS: African American GFR (CKD) >90 (>60 ml/min/1.73 sqM); Anion Gap 6 mmol/L; Blood Urea Nitrogen 10 mg/dL (9-20); Calcium 8.9 mg/dL (8.4-10.2); Carbon Dioxide 26 mmol/L (22-30); Chloride 101 mmol/L (98-107); Glucose 262 mg/dL (74-99); Non-African American GFR(CKD) 89 (>60 ml/min/1.73 sqM); Potassium 4.4 mmol/L (3.5-5.1); Sodium 133 mmol/L (137-145)
[2020-02-02] MEDS: GLIMEPIRIDE 2 MG TAB PO SCH (08:28)
[2020-02-02] MEDS: amLODIPine 10 MG TAB PO SCH (08:30)
[2020-02-02] MEDS: ATENOLOL 25 MG TAB PO SCH ×2 (08:30→21:36)
[2020-02-02] MEDS: LISINOPRIL 20 MG TAB PO SCH (08:30)
[2020-02-02] MEDS ORDERED: CLOPIDOGREL 75 MG TAB PO SCH (09:00)
[2020-02-02] MEDS ORDERED: ASPIRIN 81 MG PO SCH (09:00)
[2020-02-02] MEDS ORDERED: LIDOCAINE 1% INJ 10MG/ML (20 ML MDV) SQ ONE (10:03)
[2020-02-02] MEDS ORDERED: MIDAZOLAM 2 MG/2 ML VIAL IV ONE (10:07)
[2020-02-02] MEDS: fentaNYL (PF) 50 MCG/ML 2 ML AMP IV ONE ×2 (10:08→10:29)
[2020-02-02] MEDS ORDERED: IV FLUID CONTINUATION 500 ML IV ONE (10:09)
[2020-02-02] MEDS ORDERED: ALTEPLASE 10 MG in SODIUM CHLORIDE 0.9% 100 ML IA ONE ×2 (10:22→10:59)
[2020-02-02] MEDS ORDERED: ALTEPLASE 2 MG VIAL (CATHFLO) IA STA (10:22)
[2020-02-02] MEDS ORDERED: HYDROmorphone 1 MG/ML 1 ML SYRINGE IVP ONE (10:55)
[2020-02-02] MEDS ORDERED: HEPARIN SOD,PORK IN 0.45% NACL 25,000 UNIT in 0.45% NACL 1 250ML.BAG IV ONE (11:00)
[2020-02-02] MEDS ORDERED: IOPAMIDOL-250 100ML BTL IV ONE (11:05)
[2020-02-02 11:17] LABS: Glucose,Whole Blood 239 mg/dL (75-99)
--- NOTE | 2020-02-02 11:36 | P.OP ---
Date of Procedure: 02/02/20 Preoperative Diagnosis: Thrombosed left femoral-popliteal bypass graft with secondary ischemic rest pain of the left foot. Postoperative Diagnosis: Same. Procedure(s) Performed: #1: Ultrasound-guided cannulation of the right femoral artery. #2: Selective catheterization of the left femoral artery from the contralateral approach. #3: Left femoral angiogram. #4: Initiation of TPA thrombo-lysis of the thrombosed left femoral-popliteal bypass graft. Implants: None. Anesthesia: local (With conscious IV sedation.(Fentanyl and Versed)) Surgeon: Stephen Dennison Estimated Blood Loss (ml): 5 Urine output (ml): 0 Pathology: none sent Condition: stable Disposition: ICU Indications for Procedure: Patient is a 54-year-old male who is status post left femoropopliteal bypass graft who presented complaining of discoloration of the left great toe as well as ischemic rest pain left foot. Physical examination revealed femoral pulses to be intact or popliteal and pedal pulses are absent which represents a significant change from his most recent examination or pedal pulses were present. Patient is now offered angiography with hopeful initiation of thrombolytic/possible percutaneous/endovascular repair. Operative Findings: Thrombosed left femoral-popliteal bypass graft. Description of Procedure: Patient was brought to the special procedure suite. Both groins were sterilely prepped and draped in usual manner. Initially the patient received 50 g of fentanyl and 2 mg of Versed intravenously for moderate conscious sedation. Utilizing ultrasound the right femoral artery was identified. 1% Xylocaine was utilized for local anesthesia tissues overlying the femoral artery. Through this anesthetized area a multipurpose needle was utilized candidate the artery. Once cannulated Softip guidewire is advanced into the artery. The needle was withdrawn and a 5-[place] sheath was advanced over the guidewire. Dilator and guidewire withdrawn. After and guidewire combinations were utilized to cross the aortic bifurcation. The catheter and guidewire combination were advanced down the level common femoral artery where angiogram was performed. This demonstrated the bergman of the graft. Utilizing fluoroscopy guidewire and catheter combination were utilized to cross the proximal portion of the thrombosed graft. The guidewire was advanced into the bypass graft as well as the catheter. The guidewire was withdrawn and a angiogram was performed which demonstrated the catheter to be within the bypass graft. The a stiff Glidewire was advanced through the catheter. The catheter was withdrawn. The 5-[place] sheath was exchanged for 6-[place] up and over catheter. A [id number] infusion catheter was selected and advanced over the guidewire and utilizing the infusion catheter and guidewire combinations the guidewire was advanced into the [place] popliteal artery. Its position was confirmed with angiogram. The most proximal portion of the catheter was placed in the common femoral artery with the remaining portion of the catheter, approximately 28 mm in length was advanced into the graft. It was then flushed with a bolus of 2 mg of TPA followed by an infusion of 1 mg of TPA per hour. Heparin to be infused at 500 units an hour was initiated through the side port. The catheter was secured to the skin with nylon suture. A palpable dorsalis pedis pulse is noted on the right at the completion of the procedure which was the same finding prior to initiation of angiography. Patient tolerated procedure well. Plan is to administer TPA the constant infu leandro as well as heparin over the next 18 or so hours with reimaging scheduled for tomorrow February 02. Total fluoroscopy time was 12.3 minutes. Total contrast volume was Isovue 33645 mL's Total conscious sedation time is 40 minutes.
[2020-02-02] MEDS: HEPARIN SOD,PORK IN 0.45% NACL 25,000 UNIT in 0.45% NACL 1 250ML.BAG IV SCH ×2 (11:50→18:48)
[2020-02-02] MEDS ORDERED: SODIUM CHLORIDE 0.9% 1,000 ML IV SCH (12:00)
[2020-02-02 12:03] LABS: Glucose,Whole Blood 202 mg/dL (75-99)
--- NOTE | 2020-02-02 12:07 | IR ---
EXAMINATION TYPE: IR angio abdominal w runoff DATE OF EXAM: 02/02/2020 CLINICAL HISTORY: Left foot discoloration. TECHNIQUE: Fluoroscopy. COMPARISON: None. FINDINGS: Fluoroscopic guidance was provided during procedure performed by Dr. Garnett. A total of 12.4 minutes of fluoroscopic time was utilized during the procedure and [address] ease refer to procedure note for further details. IMPRESSION: As Above.
--- NOTE | 2020-02-02 12:20 | P.NPCON ---
History of Present Illness - Reason for Consult acute renal failure - History of Present Illness Reason for visitation: Acute kidney injury History of present illness: Patient is a 54-year-old male seen in renal consultation for acute kidney injury. Patient's creatinine on admission was 1.53 and is down to 0.96 today. Patient presented to the hospital with pain in his left great toe going on for about 4 days. Patient states his lower extremity has been cramping for the last 2 weeks or so. He denies chest pain or shortness of breath. No vomiting or diarrhea. Denies use of nonsteroidals. He does have history of diabetes as well as hypertension. Patient states his mother has chronic kidney disease but is not on renal replacement therapy at this time. Patient is unsure of the etiology of the kidney disease. He has been voiding. He denies any hematuria or dysuria. he underwent left femoral angiogram and was given TPA for the thrombosed left femoral-popliteal bypass graft. He is currently in the intensive care unit. He complains of pain in the left lower extremity. Hemodynamically stable. Vital signs are stable. General: The patient appeared well nourished and normally developed. HEENT: Head exam is unremarkable. Neck is without jugular venous distension. LUNGS: Lungs are clear to auscultation and percussion. Breath sounds decreased. HEART: Rate and Rhythm are regular. ABDOMEN: Abdominal exam reveals normal bowel sounds. Non-tender and non- distended. EXTREMITITES: No clubbing, cyanosis, or edema. Past Medical History Past Medical History: Diabetes Mellitus, Hyperlipidemia, Hypertension, Vascular Disorder Additional Past Medical History / Comment(s): uvitis glaucoma,PVD, dvt to lower left leg Last Myocardial Infarction Date:: 2005 History of Any Multi-Drug Resistant Organisms: None Reported Past Surgical History: Hernia Repair, Orthopedic Surgery Additional Past Surgical History / Comment(s): aortgram w/ runnoff,eye surg implant , bilateral knee Past Anesthesia/Blood Transfusion Reactions: No Reported Reaction Additional Past Anesthesia/Blood Transfusion Reaction / Comment(s): no hx blood transfusion Past Psychological History: No Psychological Hx Reported Smoking Status: Former smoker Past Alcohol Use History: Rare Additional Past Alcohol Use History / Comment(s): quit smoking at 26,started at age 17,<1ppd Past Drug Use History: Marijuana Additional Drug Use History / Comment(s): uses marijuana daily - Past Family History Mother History Unknown: Yes Medications and Allergies Home Medications Medication Instructions Recorded Confirmed Type Atenolol 25 mg PO BID 09/11/15 02/01/20 History Lisinopril [Zestril] 20 mg PO DAILY 09/11/15 02/01/20 History amLODIPine [Norvasc] 10 mg PO DAILY 09/11/15 02/01/20 History metFORMIN HCL [Glucophage] 500 mg PO BID 09/11/15 02/01/20 History Insulin Aspart [Novolog] 5 unit SQ TID-W/MEALS 11/25/18 02/01/20 History Aspirin [Adult Low Dose Aspirin EC] 81 mg PO DAILY 01/21/19 02/01/20 History Clopidogrel [Plavix] 75 mg PO DAILY #30 tablet 01/27/19 02/01/20 Rx Apixaban [Eliquis Starter Pack 0 mg PO DIRECTED 30 Days #1 pack 01/10/20 Rx (for VTE)] Glimepiride [Amaryl] 2 mg PO DAILY 02/01/20 02/01/20 History Simvastatin [Zocor] 20 mg PO HS 02/01/20 02/01/20 History Allergies Allergy/AdvReac Type Severity Reaction Status Date / Time atorvastatin [From Lipitor] Allergy Swelling Verified 02/01/20 18:31 ibuprofen Allergy Swelling Verified 02/01/20 18:31 pregabalin [From Lyrica] Allergy Swelling Verified 02/01/20 18:31 Physical Exam Vitals: Vital Signs Temp Pulse Pulse Resp BP BP Pulse Ox 02/02/20 12:00 59 L 19 162/86 97 02/02/20 11:30 51 L 14 151/86 97 02/02/20 11:20 98.4 F 53 L 13 162/86 98 02/02/20 08:00 98.2 F 70 16 148/68 99 02/02/20 03:30 97.8 F 74 18 149/72 99 02/01/20 23:50 61 18 148/81 99 02/01/20 19:22 97.8 F 53 L 18 177/89 98 02/01/20 18:30 98.2 F 60 18 164/89 100 02/01/20 18:00 98.2 F 70 70 14 169/88 148/68 99 02/01/20 17:30 66 18 161/90 100 02/01/20 17:00 61 18 152/88 99 02/01/20 16:30 65 18 148/83 99 02/01/20 16:20 62 20 148/83 100 02/01/20 15:26 97.9 F 71 18 124/84 100 Intake and Output 02/01/20 02/02/20 02/02/20 22:59 06:59 14:59 Intake Total 63.35 103 Balance 63.35 103 Intake: IV 103 Intake, IV Titration 63.35 Amount Heparin Sod,Pork in 0.45% 63.35 NaCl 25,000 unit In 0.45 % NaCl 1 250ml.bag @ 12 UNITS/KG/HR 9.362 mls/hr IV .Q24H [facility] Rx#: [id number] Other: Voiding Method Toilet Toilet # Voids 2 Weight 78.018 kg 76.7 kg Results - Lab Results Most recent lab results Calcium 8.9 mg/dL (8.4-10.2) 02/02/20 05:58 02/02/20 05:58 02/02/20 05:58 Assessment and Plan Plan: Assessment: 1. Acute kidney injury mostly prerenal improved with IV hydration.creatinine 0.96 today. 2. Hypertonic hyponatremia due to hyperglycemia. 3. Diabetes mellitus. 4. Benign hypertension. Partially due to pain. 5. PAD with thrombosed left lower extremity femoral-popliteal graft status post angiogram and TPA this morning. Plan: Start normal saline at 75 mL an hour. Check urinalysis. Continue to monitor renal function and urine output. Monitor for contrast- induced acute kidney injury. Thank you for the consultation. I will continue to follow the patient with you during his hospital stay.
[2020-02-02] MEDS ORDERED: HYDROmorphone 0.5 MG/0.5 ML SYRINGE IM PRN (12:49)
[2020-02-02] MEDS ORDERED: HYDROmorphone 0.5 MG/0.5 ML SYRINGE IVP PRN (12:56)
[2020-02-02] MEDS ORDERED: HYDROmorphone PCA 10 MG/50 ML BAG IV PRN (13:43)
[2020-02-02] MEDS ORDERED: NALOXONE 0.4 MG/ML 1 ML VIAL IV PRN (13:43)
--- NOTE | 2020-02-02 16:04 | P.HPIM ---
History of Present Illness H&P Date: 02/02/20 Chief Complaint: Left foot pain Patient is a 54-year-old male with a known history of hypertension, diabetes type 2 uncontrolled insulin-dependent, peripheral vascular disease with history of fem-pop bypass graft and stent in 2019 came to ER with the complaints of left great toe pain worsening for the past 4 days. Patient also having cramps in his left leg for approximately last 2 weeks. Otherwise denied any complaints of chest pain or shortness of breath. No fever no chills. No cough or sputum production. No nausea vomiting or abdominal pain or diarrhea. Denied any recent illnesses. patient was seen by vascular surgery and was taken to operating room today due to thrombosed left femoral-popliteal bypass graft. Patient underwent catheterization of the left femoral artery from the contralateral approach and TPA lysis of thrombosed left femoral-popliteal bypass graft. Patient is currently being monitored in the MICU. Continued on TPA and heparin drip. Patient is still complaining of left foot pain and requesting pain medications. No skin changes otherwise noted. Review of Systems Constitutional: Patient denies any fever or chills . No generalized weakness or weight loss. Abdomen: Patient denied nausea vomiting and diarrhea and abdominal pain. Cardiovascular: Patient denies any chest pain or short of breath no palpitations. Respiratory: patient denied any cough is from production. No shortness of breath Neurologic: Patient denied any numbness or tingling headache. Musculoskeletal: Patient denies any complaints of joint swelling or deformity. Left leg cramping and great toe pain Skin: Negative Psychiatric: Negative Endocrine: No heat or cold intolerance. No recent weight gain. Genitourinary: No dysuria or hematuria. All other 14 point ROS negative except the above Past Medical History Past Medical History: Diabetes Mellitus, Hyperlipidemia, Hypertension, Vascular Disorder Additional Past Medical History / Comment(s): uvitis glaucoma,PVD, dvt to lower left leg Last Myocardial Infarction Date:: 2005 History of Any Multi-Drug Resistant Organisms: None Reported Past Surgical History: Hernia Repair, Orthopedic Surgery Additional Past Surgical History / Comment(s): aortgram w/ runnoff,eye surg implant , bilateral knee Past Anesthesia/Blood Transfusion Reactions: No Reported Reaction Additional Past Anesthesia/Blood Transfusion Reaction / Comment(s): no hx blood transfusion Past Psychological History: No Psychological Hx Reported Smoking Status: Former smoker Past Alcohol Use History: Rare Additional Past Alcohol Use History / Comment(s): quit smoking at 26,started at age 17,<1ppd Past Drug Use History: Marijuana Additional Drug Use History / Comment(s): uses marijuana daily - Past Family History Mother History Unknown: Yes Medications and Allergies Home Medications Medication Instructions Recorded Confirmed Type Atenolol 25 mg PO BID 09/11/15 02/01/20 History Lisinopril [Zestril] 20 mg PO DAILY 09/11/15 02/01/20 History amLODIPine [Norvasc] 10 mg PO DAILY 09/11/15 02/01/20 History metFORMIN HCL [Glucophage] 500 mg PO BID 09/11/15 02/01/20 History Insulin Aspart [Novolog] 5 unit SQ TID-W/MEALS 11/25/18 02/01/20 History Aspirin [Adult Low Dose Aspirin EC] 81 mg PO DAILY 01/21/19 02/01/20 History Clopidogrel [Plavix] 75 mg PO DAILY #30 tablet 01/27/19 02/01/20 Rx Apixaban [Eliquis Starter Pack 0 mg PO DIRECTED 30 Days #1 pack 01/10/20 Rx (for VTE)] Glimepiride [Amaryl] 2 mg PO DAILY 02/01/20 02/01/20 History Simvastatin [Zocor] 20 mg PO HS 02/01/20 02/01/20 History Allergies Allergy/AdvReac Type Severity Reaction Status Date / Time atorvastatin [From Lipitor] Allergy Swelling Verified 02/01/20 18:31 ibuprofen Allergy Swelling Verified 02/01/20 18:31 pregabalin [From Lyrica] Allergy Swelling Verified 02/01/20 18:31 Physical Exam Vitals: Vital Signs Temp Pulse Pulse Resp BP BP Pulse Ox 02/02/20 03:30 97.8 F 74 18 149/72 99 02/01/20 23:50 61 18 148/81 99 02/01/20 19:22 97.8 F 53 L 18 177/89 98 02/01/20 18:30 98.2 F 60 18 164/89 100 02/01/20 18:00 98.2 F 70 70 14 169/88 148/68 99 02/01/20 17:30 66 18 161/90 100 02/01/20 17:00 61 18 152/88 99 05/13/20 16:30 65 18 148/83 99 02/01/20 16:20 62 20 148/83 100 02/01/20 15:26 97.9 F 71 18 124/84 100 Intake and Output 02/01/20 02/02/20 02/02/20 22:59 06:59 14:59 Intake Total 63.35 Balance 63.35 Intake: Intake, IV Titration 63.35 Amount Heparin Sod,Pork in 0.45% 63.35 NaCl 25,000 unit In 0.45 % NaCl 1 250ml.bag @ 12 UNITS/KG/HR 9.362 mls/hr IV .Q24H [facility] Rx#: [id number] Other: Voiding Method Toilet # Voids 2 Weight 78.018 kg 76.7 kg PHYSICAL EXAMINATION: Patient is lying in the bed comfortably, mild distress due to pain, awake alert and oriented.. HEENT: Normocephalic. Neck is supple. Pupils reactive. Nostrils clear. Oral cavity is moist. Ears reveal no drainage. Neck reveals no JVD, carotid bruits, or thyromegaly. CHEST EXAMINATION: Trachea is central. Symmetrical expansion. Bibasilar diminished air entry. Lung zapien clear to auscultation and percussion. CARDIAC: Normal S1, S2 with no gallops. No murmurs ABDOMEN: Soft. Bowel sounds normal. No organomegaly. No abdominal bruits. Extremities: reveal no edema. No clubbing or cyanosis Neurologically awake, alert, oriented x3 with well-coordinated movements. No focal deficits noted Skin: No rash or skin lesions. Psychiatric: Coperative. Nonsuicidal Musculoskeletal: No joint swelling or deformity. Normal range of motion. Results CBC & Chem 7: 02/02/20 05:58 02/02/20 05:58 Labs: Abnormal Lab Results - Last 24 Hours (Table) 02/01/20 02/01/20 02/01/20 Range/Units 16:00 16:00 21:00 APTT 19.1 L (22.0-30.0) sec Sodium 131 L (137-145) mmol/L Chloride 95 L (98-107) mmol/L Creatinine 1.53 H (0.66-1.25) mg/dL Glucose 386 H (74-99) mg/dL POC Glucose (mg/dL) 453 H (75-99) mg/dL 02/02/20 02/02/20 02/02/20 Range/Units 05:58 06:03 06:28 APTT 46.8 H (22.0-30.0) sec Sodium 133 L (137-145) mmol/L Chloride (98-107) mmol/L Creatinine (0.66-1.25) mg/dL Glucose 262 H (74-99) mg/dL POC Glucose (mg/dL) 283 H (75-99) mg/dL Thrombosis Risk Factor Assmnt - DVT/VTE Prophylaxis DVT/VTE Prophylaxis: Pharmacologic Prophylaxis ordered - Choose All That Apply Any of the Below Risk Factors Present?: Yes Each Factor Represents 1 point: Age 41-60 years, Obesity (BMI >25) Other Risk Factors: Yes Each Risk Factor Represents 3 Points: History of DVT/PE Thrombosis Risk Factor Assessment Total Risk Factor Score: 5 Thrombosis Risk Factor Assessment Level: High Risk Assessment and Plan Assessment: Left foot pain secondary to ischemia due to thrombosed left femoral-popliteal bypass graft. Status post catheterization from contralateral approach and TPA thrombolysis of thrombosis fem-pop bypass graft. Peripheral vascular disease Acute kidney injury most likely prerenal improved now. Hypertension Hyperglycemia with uncontrolled diabetes type 2 insulin-dependent Hyperlipidemia History of DVT of the left lower extremity History of uvitis and glaucoma Previous history of smoking History of marijuana use Plan: Patient is status post TPA thrombolysis today by vascular surgery. Continued with pain management. Patient is being continued on alteplase and heparin drip. Continue with insulin dose and sliding scale. Titrate dose as needed. Continue with home blood pressure medications and follow up closely. Vascular surgery and nephrology is on board. Further recommendations based on the clinical course. Time with Patient: Greater than 30
[2020-02-02 16:51] LABS: Glucose,Whole Blood 262 mg/dL (75-99)
[2020-02-02] MEDS: ALTEPLASE 10 MG in SODIUM CHLORIDE 0.9% 100 ML IV SCH (19:19)
[2020-02-02 19:39] LABS: Basophils % (A) 0 %; Eosinophils # (A) 0.1 k/uL (0-0.7); Eosinophils % (A) 2 %; HGB 15.4 gm/dL (13.0-17.5); Lymphocytes # (A) 1.5 k/uL (1.0-4.8); Lymphocytes % (A) 16 %; MCHC 32.8 g/dL (31.0-37.0); MCV 91.4 fL (80.0-100.0); Mean Platelet Volume 7.6; Monocytes # (A) 0.4 k/uL (0-1.0); Monocytes % (A) 4 %; Neutrophils # (A) 7.2 k/uL (1.3-7.7); Neutrophils % (A) 77 %; Platelet Count 171 k/uL (150-450); RBC 5.14 m/uL (4.30-5.90); RDW 13.3 % (11.5-15.5); WBC 9.3 k/uL (3.8-10.6)
[2020-02-02 21:05] LABS: Glucose,Whole Blood 287 mg/dL (75-99)
[2020-02-02 21:30] LABS: Appearance,Urine Clear (Clear); Bilirubin,Urine Negative (Negative); Blood,Urine Small (Negative); Color,Urine Yellow; Glucose,Urine (UA) 4+ (Negative); Ketones,Urine 1+ (Negative); Leukocyte Esterase,Urine Negative (Negative); Mucus,Urine Rare /hpf; Nitrite,Urine Negative (Negative); Protein,Urine 2+ (Negative); RBC,Urine <1 /hpf (0-5); Specific Gravity,Urine 1.029 (1.001-1.035); Squamous Epithelial Cell,Urine 1 /hpf (0-4); Urobilinogen,Urine <2.0 mg/dL (<2.0); WBC,Urine 1 /hpf (0-5)
[2020-02-02] MEDS: INSULIN DETEMIR (LEVEMIR) 100 UNIT/ML SYR SQ SCH (21:37)
[2020-02-03 00:54] LABS: Basophils % (A) 0 %; Eosinophils # (A) 0.1 k/uL (0-0.7); Eosinophils % (A) 1 %; HCT 44.8 % (39.0-53.0); HGB 14.5 gm/dL (13.0-17.5); Lymphocytes # (A) 2.9 k/uL (1.0-4.8); Lymphocytes % (A) 33 %; MCH 29.1 pg (25.0-35.0); MCHC 32.2 g/dL (31.0-37.0); MCV 90.3 fL (80.0-100.0); Mean Platelet Volume 7.9; Monocytes # (A) 0.5 k/uL (0-1.0); Monocytes % (A) 5 %; Neutrophils # (A) 5.3 k/uL (1.3-7.7); Neutrophils % (A) 59 %; Platelet Count 136 k/uL (150-450); RBC 4.96 m/uL (4.30-5.90); RDW 13.4 % (11.5-15.5); WBC 8.9 k/uL (3.8-10.6)
[2020-02-03] MEDS: ALTEPLASE 10 MG in SODIUM CHLORIDE 0.9% 100 ML IV SCH ×2 (04:36→16:49)
[2020-02-03 04:50] LABS: Basophils % (A) 1 %; Eosinophils # (A) 0.1 k/uL (0-0.7); Eosinophils % (A) 2 %; HCT 43.4 % (39.0-53.0); HGB 14.7 gm/dL (13.0-17.5); Lymphocytes # (A) 2.6 k/uL (1.0-4.8); Lymphocytes % (A) 32 %; MCH 30.1 pg (25.0-35.0); MCV 88.7 fL (80.0-100.0); Mean Platelet Volume 8.1; Monocytes # (A) 0.5 k/uL (0-1.0); Monocytes % (A) 6 %; Neutrophils # (A) 4.6 k/uL (1.3-7.7); Neutrophils % (A) 57 %; Platelet Count 118 k/uL (150-450); RDW 12.7 % (11.5-15.5); WBC 7.9 k/uL (3.8-10.6)
[2020-02-03 05:04] LABS: African American GFR (CKD) >90 (>60 ml/min/1.73 sqM); Anion Gap 5 mmol/L; Blood Urea Nitrogen 9 mg/dL (9-20); Calcium 9.1 mg/dL (8.4-10.2); Carbon Dioxide 26 mmol/L (22-30); Chloride 101 mmol/L (98-107); Glucose 160 mg/dL (74-99); Non-African American GFR(CKD) >90 (>60 ml/min/1.73 sqM); Potassium 3.7 mmol/L (3.5-5.1); Sodium 132 mmol/L (137-145)
[2020-02-03] MEDS ORDERED: Potassium Replacement Protocol 1 EACH MISC MISCELLANE PRN (05:34)
[2020-02-03 05:54] LABS: Glucose,Whole Blood 171 mg/dL (75-99)
[2020-02-03] MEDS: INSULIN ASPART (NovoLOG) 100 UNIT/ML VIAL SQ SCH ×7 (05:57→20:09)
[2020-02-03] MEDS ORDERED: POTASSIUM CHLORIDE ER 20 MEQ TAB.ER PO SCH (06:00)
[2020-02-03] MEDS: LISINOPRIL 20 MG TAB PO SCH (06:02)
[2020-02-03 08:28] LABS: Basophils % (A) 1 %; Eosinophils # (A) 0.2 k/uL (0-0.7); Eosinophils % (A) 3 %; HCT 46.3 % (39.0-53.0); HGB 14.7 gm/dL (13.0-17.5); Lymphocytes # (A) 2.3 k/uL (1.0-4.8); Lymphocytes % (A) 35 %; MCH 28.7 pg (25.0-35.0); MCHC 31.8 g/dL (31.0-37.0); MCV 90.3 fL (80.0-100.0); Mean Platelet Volume 7.9; Monocytes # (A) 0.3 k/uL (0-1.0); Monocytes % (A) 4 %; Neutrophils # (A) 3.5 k/uL (1.3-7.7); Neutrophils % (A) 55 %; Platelet Count 143 k/uL (150-450); RBC 5.13 m/uL (4.30-5.90); RDW 12.9 % (11.5-15.5); WBC 6.5 k/uL (3.8-10.6)
[2020-02-03] MEDS: ATENOLOL 25 MG TAB PO SCH ×2 (09:03→20:09)
[2020-02-03] MEDS: amLODIPine 10 MG TAB PO SCH (09:27)
[2020-02-03] MEDS ORDERED: IV FLUID CONTINUATION 1,000 ML IV ONE (10:30)
[2020-02-03] MEDS: MIDAZOLAM 2 MG/2 ML VIAL IV ONE ×2 (10:45→11:37)
[2020-02-03] MEDS ORDERED: LIDOCAINE 1% INJ 10MG/ML (20 ML MDV) SQ ONE (10:47)
[2020-02-03] MEDS: NITROGLYCERIN 1000MCG/10ML SYRINGE INTRAARTER ONE ×2 (11:37→12:25)
[2020-02-03] MEDS ORDERED: HYDROmorphone 1 MG/ML 1 ML SYRINGE IVP ONE (11:43)
[2020-02-03] MEDS: HEPARIN SODIUM 1,000 UN/ML (10ML VL) IV ONE ×2 (12:00→13:29)
[2020-02-03] MEDS ORDERED: ALTEPLASE BOLUS 1 MG/1 ML SYRINGE IVP ONE (12:16)
[2020-02-03] MEDS ORDERED: ONDANSETRON 4 MG/2 ML VIAL IVP ONE (12:41)
[2020-02-03] MEDS ORDERED: IOPAMIDOL-250 100ML BTL INTRAARTER ONE (13:06)
[2020-02-03] MEDS ORDERED: SODIUM CHLORIDE 0.9% 1,000 ML IV ONE (13:10)
[2020-02-03] MEDS ORDERED: IOPAMIDOL-250 50ML BTL INTRAARTER ONE (13:59)
--- NOTE | 2020-02-03 14:34 | P.OP ---
Date of Procedure: 02/03/20 Description of Procedure: Preoperative diagnosis: Previously initiated thrombolysis, left lower extremity acute limb ischemia, thrombosed left femoral to popliteal bypass graft Postoperative diagnosis: Same Procedure: [Left lower extremity angiogram, third order Pharmacal mechanical thrombectomy with penumbra CAT 6 Percutaneous transluminal balloon angioplasty peroneal artery Percutaneous transluminal balloon angioplasty anterior tibial artery Replacement of thrombolysis catheter Moderate conscious sedation 177 minutes] Surgeon: Estela Hess D.O. EBL: [500 mL] IV fluids: [See records] Urine output: [Not measured] Drains: [None] Complications: [None] Condition: [Stable] Operative indication and findings: [The patient is a 54 old male with a previous left femoral to popliteal bypass that was occluded, thrombolysis was initiated yesterday. He presents today for repeat imaging. Initial picture revealed patency of the femoral popliteal graft but no patent profunda noted as previous initial picture prior to placement of the thrombolysis catheter. The left posterior tibial artery was widely patent to the ankle. There was occlusion of the peroneal and anterior tibial with reconstitution at the level of the ankle. Conclusion of the procedure there was a patent profunda, the majority of thrombus was removed from the bypass graft. There was noted thrombus at the distal anastomosis and proximal anastomosis which was unable to be removed via suction thrombectomy therefore replacement TPA catheter was placed and further attempts for the revascularization will be performed tomorrow. He remains motor sensory intact with a cold toe but otherwise able to move his toes and ankle. Calf compartments are soft..] Procedure in detail: [The patient was taken to the special suite and placed in supine position. The right groin was prepped and draped in usual sterile fashion. A procedure timeout was performed, all parties are in agreement. A guidewire was placed and the previously placed catheter. The catheter was removed. An 80 g was performed revealing flow through the graft itself with evidence of thrombus at the profunda. The posterior tibial artery is patent to the ankle. There was thrombus in the peroneal and anterior tibial arteries. Guidewire and catheters were placed down into the tibials. A 6 CAT penumbra device was utilized in the peroneal which improved flow. The proximal portion had a narrowing which was ballooned with a 2.5 x 60 balloon. Nitro and TPA were placed. Repeat imaging revealed good flow through the posterior tibial and peroneal. Attention was then turned towards the anterior tibial artery. It was occluded at its takeoff, but was able to be recannulated and multiple attempts were made to pass the thrombectomy device which were unsuccessful to the level of the ankle, a 1.5 and 2.5 balloon were utilized. Final imaging revealed improvement of infrapopliteal flow with 3 vessels and some evidence of spasm. Attention was then brought back up to the level of the proximal anastomosis and profunda. A guidewire was placed into the profunda, suction thrombectomy was utilized and the resultant picture revealed the thrombus into the bypass graft to the proximal portion. There was a episode of hypotension and nausea which was corrected with Zofran and a fluid bolus. An angiogram of the aorta and bilateral iliacs performed revealing no evidence of perforation. After appropriate resuscitation and blood pressures, Multiple attempts were made to suction out thrombus at the anastomosis which were unsuccessful. There was still three-vessel runoff with catheter directed angiogram from the popliteal artery At that point, a guidewire was placed and a thrombolytics catheter was placed across the levels of the anastomoses. The sheath was sutured in place. Since the patient was motor sensory intact, the decision was made to repeat thrombolytics at this time. It was discussed with him that if I am unable to remove the clot he may require an open surgery for open thrombectomy and possible repeat bypass or revision of the anastomoses.]
[2020-02-03 14:56] LABS: HCT 40.8 % (39.0-53.0); HGB 12.9 gm/dL (13.0-17.5); MCH 29.2 pg (25.0-35.0); MCHC 31.5 g/dL (31.0-37.0); MCV 92.7 fL (80.0-100.0); Mean Platelet Volume 7.6; Platelet Count 132 k/uL (150-450); RBC 4.41 m/uL (4.30-5.90); RDW 13.1 % (11.5-15.5); WBC 9.7 k/uL (3.8-10.6)
--- NOTE | 2020-02-03 16:15 | P.PN ---
Subjective Progress Note Date: 02/03/20 54-year-old male with a known history of hypertension, diabetes type 2 uncontrolled insulin-dependent, peripheral vascular disease with history of fem- pop bypass graft and stent in 2019 came to ER with the complaints of left great toe pain worsening for the past 4 days. Patient also having cramps in his left leg for approximately last 2 weeks. Otherwise denied any complaints of chest pain or shortness of breath. No fever no chills. No cough or sputum production. No nausea vomiting or abdominal pain or diarrhea. Denied any recent illnesses. patient was seen by vascular surgery and was taken to operating room today due to thrombosed left femoral-popliteal bypass graft. Patient underwent catheterization of the left femoral artery from the contralateral approach and TPA lysis of thrombosed left femoral-popliteal bypass graft. Patient is currently being monitored in the MICU. Continued on TPA and heparin drip. Patient is still complaining of left foot pain and requesting pain medications. Objective - Vital Signs Vital signs: Vital Signs Temp 98.5 F 02/03/20 08:00 Pulse 69 02/03/20 10:00 Resp 9 L 02/03/20 10:00 BP 141/74 02/03/20 10:00 Pulse Ox 97 02/03/20 10:00 Intake & Output 02/02/20 02/03/20 02/03/20 18:59 06:59 18:59 Intake Total 711.833 809.833 160 Output Total 700 590 340 Balance 11.833 219.833 -180 Weight 79.6 kg Intake: IV 677 717 160 .9 175 100 Alteplase 10 mg In Sodium 100 40 Chloride 0.9% 100 ml @ 1 MG/HR 10 mls/hr IA .Q10H [facility] Rx#:[id number] Heparin Sod,Pork in 0.45% 35 65 20 NaCl 25,000 unit In 0.45 % NaCl 1 250ml.bag @ 5 mls/hr IV .Q24H [facility] Rx#: [id number] Sodium Chloride 0.9% 1, 525 375 000 ml @ 75 mls/hr IV . [id number] [facility] Rx#:[id number] tPA 14 2 Intake, IV Titration 34.833 92.833 Amount Alteplase 10 mg In Sodium 92.833 Chloride 0.9% 100 ml @ 1 MG/HR 10 mls/hr IV .Q10H [facility] Rx#:[id number] Heparin Sod,Pork in 0.45% 34.833 NaCl 25,000 unit In 0.45 % NaCl 1 250ml.bag @ 5 mls/hr IV .Q24H [facility] Rx#: [id number] Output: Urine 700 590 340 Other: Voiding Method Toilet Urinal Urinal - Exam PHYSICAL EXAMINATION: GENERAL: The patient is alert and oriented x3, not in any acute distress. Well developed, well nourished. HEENT: Pupils are round and equally reacting to light. EOMI. No scleral icterus. No conjunctival pallor. Normocephalic, atraumatic. No pharyngeal erythema. No thyromegaly. CARDIOVASCULAR: S1 and S2 present. No murmurs, rubs, or gallops. PULMONARY: Chest is clear to auscultation, no wheezing or crackles. ABDOMEN: Soft, nontender, nondistended, normoactive bowel sounds. No palpable organomegaly. MUSCULOSKELETAL: No joint swelling or deformity. EXTREMITIES: No cyanosis, clubbing, or pedal edema. NEUROLOGICAL: Gross neurological examination did not reveal any focal deficits. SKIN: No rashes. - Labs CBC & Chem 7: 02/03/20 14:47 02/03/20 04:15 Labs: Abnormal Lab Results - Last 24 Hours (Table) 02/02/20 02/02/20 02/02/20 Range/Units 16:49 21:03 Unknown Plt Count (150-450) k/uL Sodium (137-145) mmol/L Glucose (74-99) mg/dL POC Glucose (mg/dL) 262 H 287 H (75-99) mg/dL Urine Protein 2+ H (Negative) Urine Glucose (UA) 4+ H (Negative) Urine Ketones 1+ H (Negative) Urine Blood Small H (Negative) Urine Mucus Rare H (None) /hpf 02/03/20 02/03/20 02/03/20 Range/Units 00:33 04:15 04:28 Plt Count 136 L 118 L (150-450) k/uL Sodium 132 L (137-145) mmol/L Glucose 160 H (74-99) mg/dL POC Glucose (mg/dL) (75-99) mg/dL Urine Protein (Negative) Urine Glucose (UA) (Negative) Urine Ketones (Negative) Urine Blood (Negative) Urine Mucus (None) /hpf 02/03/20 02/03/20 Range/Units 05:52 08:06 Plt Count 143 L (150-450) k/uL Sodium (137-145) mmol/L Glucose (74-99) mg/dL POC Glucose (mg/dL) 171 H (75-99) mg/dL Urine Protein (Negative) Urine Glucose (UA) (Negative) Urine Ketones (Negative) Urine Blood (Negative) Urine Mucus (None) /hpf Assessment and Plan Assessment: Left foot pain secondary to ischemia due to thrombosed left femoral-popliteal bypass graft. Status post catheterization from contralateral approach and TPA thrombolysis of thrombosis fem-pop bypass graft. Peripheral vascular disease Acute kidney injury most likely prerenal improved now. Hypertension Hyperglycemia with uncontrolled diabetes type 2 insulin-dependent Hyperlipidemia History of DVT of the left lower extremity History of uvitis and glaucoma Previous history of smoking History of marijuana use Plan: Patient is status post TPA thrombolysis today by vascular surgery. Continued with pain management. Patient is being continued on alteplase and heparin drip. Continue with insulin dose and sliding scale. Titrate dose as needed. Continue with home blood pressure medications and follow up closely. Vascular surgery and nephrology is on board. Further recommendations based on the clinical course.
[2020-02-03] MEDS: GLIMEPIRIDE 2 MG TAB PO SCH (16:23)
[2020-02-03 17:05] LABS: Glucose,Whole Blood 295 mg/dL (75-99)
[2020-02-03 20:09] LABS: Glucose,Whole Blood 260 mg/dL (75-99)
[2020-02-03] MEDS: INSULIN DETEMIR (LEVEMIR) 100 UNIT/ML SYR SQ SCH (20:09)
[2020-02-03] MEDS: MORPHINE SULFATE 4 MG/ML SYRINGE IV PRN (20:17)
[2020-02-03] MEDS ORDERED: diphenhydrAMINE 25 MG CAP PO STA (22:56)
[2020-02-03] MEDS: HYDROmorphone 1 MG/ML 1 ML SYRINGE IVP PRN (23:28)
[2020-02-04 01:12] LABS: Basophils % (A) 0 %; Eosinophils # (A) 0.1 k/uL (0-0.7); Eosinophils % (A) 1 %; HCT 31.8 % (39.0-53.0); HGB 10.5 gm/dL (13.0-17.5); Lymphocytes # (A) 2.1 k/uL (1.0-4.8); Lymphocytes % (A) 23 %; MCH 29.7 pg (25.0-35.0); MCHC 32.9 g/dL (31.0-37.0); MCV 90.2 fL (80.0-100.0); Mean Platelet Volume 8.5; Monocytes # (A) 0.5 k/uL (0-1.0); Monocytes % (A) 6 %; Neutrophils # (A) 6.2 k/uL (1.3-7.7); Neutrophils % (A) 69 %; Platelet Count 124 k/uL (150-450); RBC 3.52 m/uL (4.30-5.90); RDW 13.4 % (11.5-15.5)
[2020-02-04] MEDS: ALTEPLASE 10 MG in SODIUM CHLORIDE 0.9% 100 ML IV SCH (04:08)
[2020-02-04] MEDS: HYDROmorphone 1 MG/ML 1 ML SYRINGE IVP PRN ×6 (04:09→22:31)
[2020-02-04 06:27] LABS: Glucose,Whole Blood 155 mg/dL (75-99)
[2020-02-04] MEDS: INSULIN ASPART (NovoLOG) 100 UNIT/ML VIAL SQ SCH ×7 (06:29→20:27)
[2020-02-04 07:54] LABS: Basophils % (A) 0 %; Eosinophils # (A) 0.1 k/uL (0-0.7); Eosinophils % (A) 1 %; HCT 27.1 % (39.0-53.0); HGB 9.2 gm/dL (13.0-17.5); Lymphocytes # (A) 3.1 k/uL (1.0-4.8); Lymphocytes % (A) 35 %; MCHC 33.7 g/dL (31.0-37.0); Mean Platelet Volume 8.8; Monocytes # (A) 0.6 k/uL (0-1.0); Monocytes % (A) 6 %; Neutrophils # (A) 4.9 k/uL (1.3-7.7); Neutrophils % (A) 56 %; Platelet Count 102 k/uL (150-450); RBC 3.05 m/uL (4.30-5.90); WBC 8.8 k/uL (3.8-10.6)
--- NOTE | 2020-02-04 07:58 | P.PN ---
Progress Note - Text Progress Note Date: 02/04/20 Patient seen and examined this morning. Foot feels a little warmer but decreased movement to the toes. Some tenderness to the calf. Compartments remain soft. Some continued oozing from the right groin sheath site. No obvious hematoma. Labs reviewed. Plan to go to the [facility] today for TPA rechecked and possible balloon versus stent. It was discussed with the patient that if I'm unable to revascularize this way he would need surgical intervention with open thrombectomy and that going forward he may need a possible fasciotomy. He seemingly understands these things and is willing to proceed with necessary interventions.
[2020-02-04 08:03] LABS: Calcium 8.3 mg/dL (8.4-10.2); Potassium 4.6 mmol/L (3.5-5.1)
[2020-02-04] MEDS ORDERED: HYDROmorphone 1 MG/ML 1 ML SYRINGE IVP ONE (08:07)
[2020-02-04] MEDS ORDERED: MIDAZOLAM 2 MG/2 ML VIAL IV ONE (08:08)
[2020-02-04] MEDS ORDERED: LIDOCAINE 1% INJ 10MG/ML (20 ML MDV) SQ ONE (08:09)
[2020-02-04] MEDS ORDERED: IV FLUID CONTINUATION 1,000 ML IV ONE ×3 (08:14→16:02)
[2020-02-04] MEDS ORDERED: IOPAMIDOL-300 100ML BTL INJ ONE (08:47)
--- NOTE | 2020-02-04 09:07 | P.OP ---
Date of Procedure: 02/04/20 Description of Procedure: Preoperative diagnosis: [Acute limb ischemia left lower extremity, thrombosed femoral to popliteal bypass graft, previous initiation of thrombolytic therapy] Postoperative diagnosis: Same Procedure: [#1 left extremity angiogram, second order #2 per continue transluminal balloon angioplasty the popliteal anastomosis 6 x 80 balloon 3 6x100 Viabahn stent placement 4. Right iliofemoral angiogram 5. moderate conscious sedation 30 minutes] Surgeon: Estela Hess D.O. EBL: [Less than 20 mL] IV fluids: [See operative record] Urine output: [Not measured] Drains: [None] Complications: [None immediately apparent] Condition: [Stable return to room] Operative indication and findings: [The patient is a 54 old male with a previous left femoral to popliteal bypass graft that was thrombosed. He was initiated on thrombolytics, yesterday attempts were made at revascularization which were partially successful in revascularizing the profundus, a repeat thrombolytics catheter was placed. He is brought back today for further imaging and evaluation. Risks and benefits were discussed. He seemingly understood and was willing to proceed.] Procedure in detail: [The patient was taken to the special suite and placed in supine position. The right groin and catheters were prepped and draped in usual sterile fashion. A preprocedure timeout was performed, all parties were in agreement. The sheath site was anesthetized with lidocaine plain. A guidewire was placed in the existing catheter and catheter was removed and an angiogram was performed. There was a widely patent proximal anastomosis. The profunda remained widely patent. There was sluggish flow through the graft. There was flow through the popliteal anastomosis with some evidence of thrombus. There was three-vessel runoff below the knee with a posterior tibial artery to the ankle and reconstituted anterior tibial artery at the ankle. Given the amount of thrombus and suspected narrowing at the distal anastomosis, a 6 x 100 Viabahn was placed and balloon angioplastied with a 6 x 80 balloon. Repeat angiogram from the catheter revealed brisk flow through the graft with the same runoff as previous. Wires and catheters were removed. The sheath was pulled back to the right iliac system. An iliofemoral angiogram was performed revealing access into the common femoral artery and a patent profunda as well as bypass graft. An Angio-Seal closure device was utilized and a pressure dressing was placed. T he patient transferred back to his room in stable condition and tolerated the procedure well. He'll be monitored closely]
[2020-02-04] MEDS: amLODIPine 10 MG TAB PO SCH (09:16)
[2020-02-04] MEDS: LISINOPRIL 20 MG TAB PO SCH (09:16)
[2020-02-04] MEDS: ATENOLOL 25 MG TAB PO SCH ×2 (09:17→20:27)
[2020-02-04] MEDS: GLIMEPIRIDE 2 MG TAB PO SCH (09:21)
[2020-02-04] MEDS ORDERED: HEPARIN SODIUM,PORCINE 5,000 UNIT/ML 1 ML VIAL IV PRN (11:09)
[2020-02-04] MEDS: HEPARIN SOD,PORK IN 0.45% NACL 25,000 UNIT in 0.45% NACL 1 250ML.BAG IV SCH (11:38)
[2020-02-04] MEDS: SODIUM CHLORIDE 0.9% 1,000 ML IV SCH ×2 (11:39→20:27)
[2020-02-04 13:10] LABS: Glucose,Whole Blood 188 mg/dL (75-99)
--- NOTE | 2020-02-04 14:05 | P.PN ---
Progress Note - Text Progress Note Date: 02/04/20 Pt s/e, re evaluated in ICU. Swelling the the LLE, TTP although soft compartments. Increased pain with passive ROM, decreased ROM but still motorsensory intact. At this time, will go to OR for fasciotomy given worsened findings. Still with DP/PT signals as previous. Risks and benefits discussed with patient who seemingly understands and is willing to proceed.
[2020-02-04] MEDS ORDERED: NEOSTIGMINE 1 MG/ML 10 ML VIAL ONE (14:36)
[2020-02-04] MEDS ORDERED: SUCCINYLCHOLINE CHLORIDE 100 MG/5 ML SYR IV ONE (14:36)
[2020-02-04] MEDS ORDERED: ePHEDrine SULFATE/0.9% NACL/PF 50 MG/5 ML SYRINGE IV ONE (14:36)
[2020-02-04] MEDS ORDERED: PHENYLEPHRINE-0.9% NACL SYG 1 MG/10 ML SYRINGE ONE (14:36)
[2020-02-04] MEDS ORDERED: GLYCOPYRROLATE 0.2 MG/ML 2 ML VIAL ONE (14:36)
[2020-02-04] MEDS ORDERED: MIDAZOLAM 2 MG/2 ML VIAL ONE (14:36)
[2020-02-04] MEDS ORDERED: LIDOCAINE 1% INJ 10MG/ML (20 ML MDV) ONE (14:36)
[2020-02-04] MEDS ORDERED: PROPOFOL 10 MG/ML 20 ML VIAL IV ONE (14:36)
[2020-02-04] MEDS ORDERED: ROCURONIUM BROMIDE 10 MG/ML 5 ML VIAL IV ONE (14:36)
[2020-02-04] MEDS ORDERED: fentaNYL (PF) 50 MCG/ML 2 ML AMP ONE (14:36)
[2020-02-04] MEDS ORDERED: SODIUM CHLORIDE 0.9% 1,000 ML IV ONE (14:36)
[2020-02-04] MEDS ORDERED: LACTATED RINGERS 1,000 ML IV ONE (15:01)
--- NOTE | 2020-02-04 15:45 | P.OP ---
Date of Procedure: 02/04/20 Description of Procedure: Preoperative diagnosis: Left lower extremity critical limb ischemia, previous revascularization, presumed compartment syndrome Postoperative diagnosis: Same Procedure: [Left lower extremity 4 compartment fasciotomy] Surgeon: Estela Hess D.O. EBL: [10 mL] IV fluids: [See anesthesia records] Urine output: [None] Drains: [None] Complications: [None immediately apparent] Condition: [Stable to ICU] Operative indication and findings: [The patient is a 54-year-old male who previ ously presented with acute lower extremity ischemia to the left leg. He underwent endovascular revascularization. In the few hours following the procedure he was beginning to have increasing pain with passive movements and tender to palpation of his compartments although they remained soft. At that point it was decided he would benefit from a fasciotomy therefore he was taken to the operative suite after discussing risks and benefits of surgical versus no surgical interventions. He seemingly understood and was willing to proceed] Procedure in detail: [The patient was taken operative suite and placed in supine position. The left lower extremity is prepped and draped in usual sterile fashion. A preprocedure timeout was performed, all parties in agreement. The anterior lateral compartment was started first, an incision was made in the intraosseous space a few centimeters lateral to the tibial ridge. The subcutaneous tissues were divided to the level of the fascia. A transverse in cision was made over the intramuscular septum. The intramuscular septum was probed. Vertical incisions were made in the caudad and cephalad directions in both the anterior and lateral compartments. Attention was then turned towards the superficial and deep posterior compartments. An incision was made this medially to the posterior wall of the tibia and carried down through the subcutaneous tissues to the level of the fascia. The fascia was incised exposing superficial compartment. The psoas muscle was then bluntly dissected free off of the tibia allowing for release of the deep compartment. Hemostasis was easily controlled with electrocautery. At that point a wound VAC was placed and found to be in good suction without any evidence of leak. The patient was extubated and transferred to PACU in stable condition having tolerated the procedure well.]
[2020-02-04 16:37] LABS: Basophils % (A) 0 %; Eosinophils # (A) 0.1 k/uL (0-0.7); Eosinophils % (A) 2 %; HCT 24.7 % (39.0-53.0); HGB 8.2 gm/dL (13.0-17.5); Lymphocytes # (A) 2.4 k/uL (1.0-4.8); Lymphocytes % (A) 41 %; MCH 30.1 pg (25.0-35.0); MCHC 33.1 g/dL (31.0-37.0); MCV 90.8 fL (80.0-100.0); Mean Platelet Volume 8.2; Monocytes # (A) 0.4 k/uL (0-1.0); Monocytes % (A) 6 %; Neutrophils # (A) 2.8 k/uL (1.3-7.7); Neutrophils % (A) 48 %; RBC 2.71 m/uL (4.30-5.90); RDW 12.9 % (11.5-15.5); WBC 5.9 k/uL (3.8-10.6)
[2020-02-04 16:39] LABS: Platelet Count 99 k/uL (150-450)
[2020-02-04 16:45] LABS: Potassium 4.4 mmol/L (3.5-5.1)
[2020-02-04 16:46] LABS: Albumin 2.4 g/dL (3.5-5.0); Calcium 8.1 mg/dL (8.4-10.2); Total Bilirubin 0.7 mg/dL (0.2-1.3); Total Protein 4.7 g/dL (6.3-8.2)
--- NOTE | 2020-02-04 16:52 | PN ---
PROGRESS NOTE Patient is seen for followup for acute kidney injury which was initially prerenal with improvement in serum creatinine down to 0.8 from 1.53 on 02/01/2020. The patient has left lower extremity ischemia and is status post left lower extremity angiogram x2. He had another procedure done this morning. He is currently comfortable. He is maintained on IV fluids. Creatinine this morning was 1.37. The patient has been voiding well, 24 hour urine output of about 1.2 L. EXAMINATION: Today patient is comfortable. Blood pressure was 120/76, heart rate 68 per minute. He is afebrile. Examination of the heart S1, S2. Examination of the lungs, decreased breath sounds at bases. Abdomen is soft, nontender. Examination of lower extremities shows pain and mild swelling in the left lower extremity. No edema noted in the right lower extremity. [employer] exam grossly intact. LAB: Show sodium of 132, potassium 4.6, chloride 103, BUN 18, serum creatinine 1.37. ASSESSMENT: 1. Acute kidney injury, initially prerenal, improved with IV hydration. Serum creatinine is again elevated today, possibly related to contrast nephropathy. Patient had CT angiogram on 02/02/2020 followed by another procedure this morning. I will continue to maintain him on IV fluids. Hopefully renal function will improve over the next few days. The patient is maintained on BETITO inhibitors which I will continue for now. His blood pressure is on the higher side. However, if his renal function is worse tomorrow, I will hold off on the Zestril. 2. Acute left lower extremity ischemia, being followed by vascular surgery, status post left lower extremity angiogram and transluminal balloon angioplasty and stent placement. 3. Hypertension, currently controlled. PLAN: Continue with IV fluids, repeat labs in a.m., avoid any nephrotoxic agents. If the serum creatinine is higher tomorrow, hold off on BETITO inhibitors. MMODL / IJN: [id number] /
[2020-02-04 16:58] LABS: Glucose,Whole Blood 185 mg/dL (75-99)
--- NOTE | 2020-02-04 17:38 | P.PN ---
Subjective Progress Note Date: 02/04/20 Principal diagnosis: Critical limb ischemia left lower extremity Status post previous revascularization Presumed compartment syndrome 54-year-old male with a known history of hypertension, diabetes type 2 uncontrolled insulin-dependent, peripheral vascular disease with history of fem- pop bypass graft and stent in 2018 came to ER with the complaints of left great toe pain worsening for the past 4 days. Patient also having cramps in his left leg for approximately last 2 weeks. Otherwise denied any complaints of chest pain or shortness of breath. No fever no chills. No cough or sputum production. No nausea vomiting or abdominal pain or diarrhea. Denied any recent illnesses. patient was seen by vascular surgery and was taken to operating room today due to thrombosed left femoral-popliteal bypass graft. Patient underwent catheterization of the left femoral artery from the contralateral approach and TPA lysis of thrombosed left femoral-popliteal bypass graft. Patient is currently being monitored in the MICU. Continued on TPA and heparin drip. Patient is still complaining of left foot pain and requesting pain medications. 02/04/2020 Patient is seen and evaluated in ICU; patient is status post left lower extremity 4 compartment fasciotomy for presumed compartment syndrome; patient underwent endovascular revascularization for acute lower extremity ischemia to left leg which was followed by increasing pain with passive movements and patient was decided to do benefit from fasciotomy Patient's vital signs are stable postoperatively; lab review shows slight drop in hemoglobin from 8.2 down from 9.2 yesterday Objective - Vital Signs Vital signs: Vital Signs Temp 98.4 F 02/04/20 09:00 Pulse 69 02/04/20 12:00 Resp 12 02/04/20 12:00 BP 141/92 02/04/20 12:00 Pulse Ox 98 02/04/20 12:00 Intake & Output 02/03/20 02/04/20 02/04/20 18:59 06:59 18:59 Intake Total 1110 1205 418.999 Output Total 340 705 0 Balance 770 500 418.999 Weight 78.2 kg Intake: IV 1110 805 275 .9 475 790 175 Alteplase 10 mg In Sodium 90 10 Chloride 0.9% 100 ml @ 1 MG/HR 10 mls/hr IA .Q10H ONE Rx#:[id number] Heparin Sod,Pork in 0.45% 45 5 NaCl 25,000 unit In 0.45 % NaCl 1 250ml.bag @ 5 mls/hr IV .Q24H DENNISE Rx#: [id number] Intake, IV Titration 100 143.999 Amount Alteplase 10 mg In Sodium 100 48.667 Chloride 0.9% 100 ml @ 1 MG/HR 10 mls/hr IV .Q10H DENNISE Rx#:[id number] Heparin Sod,Pork in 0.45% 20.332 NaCl 25,000 unit In 0.45 % NaCl 1 250ml.bag @ 12 UNITS/KG/HR 9.384 mls/hr IV .Q24H DENNISE Rx#: [id number] Sodium Chloride 0.9% 1, 75 000 ml @ 75 mls/hr IV . [id number] DENNISE Rx#:[id number] Oral 300 Output: Urine 340 705 0 Other: Voiding Method Urinal Urinal Urinal - Exam PHYSICAL EXAMINATION: GENERAL: The patient is alert and oriented x3, not in any acute distress. Well developed, well nourished. HEENT: Pupils are round and equally reacting to light. EOMI. No scleral icterus. No conjunctival pallor. Normocephalic, atraumatic. No pharyngeal erythema. No thyromegaly. CARDIOVASCULAR: S1 and S2 present. No murmurs, rubs, or gallops. PULMONARY: Chest is clear to auscultation, no wheezing or crackles. ABDOMEN: Soft, nontender, nondistended, normoactive bowel sounds. No palpable organomegaly. MUSCULOSKELETAL: No joint swelling or deformity. EXTREMITIES: No cyanosis, clubbing, or pedal edema. NEUROLOGICAL: Gross neurological examination did not reveal any focal deficits. SKIN: No rashes. - Labs CBC & Chem 7: 02/04/20 15:40 02/04/20 15:40 Labs: Abnormal Lab Results - Last 24 Hours (Table) 02/03/20 02/03/20 02/03/20 Range/Units 14:47 17:04 20:01 RBC (4.30-5.90) m/uL Hgb 12.9 L (13.0-17.5) gm/dL Hct (39.0-53.0) % Plt Count 132 L (150-450) k/uL Sodium (137-145) mmol/L Creatinine (0.66-1.25) mg/dL Glucose (74-99) mg/dL POC Glucose (mg/dL) 295 H 260 H (75-99) mg/dL Calcium (8.4-10.2) mg/dL 02/04/20 02/04/20 02/04/20 Range/Units 00:08 06:26 06:54 RBC 3.52 L 3.05 L (4.30-5.90) m/uL Hgb 10.5 L 9.2 L (13.0-17.5) gm/dL Hct 31.8 L 27.1 L (39.0-53.0) % Plt Count 124 L 102 L (150-450) k/uL Sodium (137-145) mmol/L Creatinine (0.66-1.25) mg/dL Glucose (74-99) mg/dL POC Glucose (mg/dL) 155 H (75-99) mg/dL Calcium (8.4-10.2) mg/dL 02/04/20 02/04/20 Range/Units 06:54 13:08 RBC (4.30-5.90) m/uL Hgb (13.0-17.5) gm/dL Hct (39.0-53.0) % Plt Count (150-450) k/uL Sodium 132 L (137-145) mmol/L Creatinine 1.37 H (0.66-1.25) mg/dL Glucose 150 H (74-99) mg/dL POC Glucose (mg/dL) 188 H (75-99) mg/dL Calcium 8.3 L (8.4-10.2) mg/dL Assessment and Plan Assessment: Left foot pain secondary to ischemia due to thrombosed left femoral-popliteal bypass graft. Status post catheterization from contralateral approach and TPA thrombolysis of thrombosis fem-pop bypass graft. Peripheral vascular disease Acute kidney injury most likely prerenal improved now. Hypertension Hyperglycemia with uncontrolled diabetes type 2 insulin-dependent Hyperlipidemia History of DVT of the left lower extremity History of uvitis and glaucoma Previous history of smoking History of marijuana use Plan: Patient is status post TPA thrombolysis today by vascular surgery. Continued with pain management. Patient is being continued on alteplase and heparin drip. Continue with insulin dose and sliding scale. Titrate dose as needed. Continue with home blood pressure medications and follow up closely. Vascular surgery and nephrology is on board. Further recommendations based on the clinical course.
[2020-02-04 20:20] LABS: Glucose,Whole Blood 278 mg/dL (75-99)
[2020-02-04] MEDS: INSULIN DETEMIR (LEVEMIR) 100 UNIT/ML SYR SQ SCH (20:27)
[2020-02-05] MEDS: HYDROmorphone 1 MG/ML 1 ML SYRINGE IVP PRN ×8 (00:54→22:53)
[2020-02-05 06:24] LABS: Glucose,Whole Blood 281 mg/dL (75-99)
[2020-02-05 06:47] LABS: Basophils % (A) 1 %; Eosinophils # (A) 0.2 k/uL (0-0.7); Eosinophils % (A) 2 %; HCT 25.9 % (39.0-53.0); HGB 8.6 gm/dL (13.0-17.5); Lymphocytes # (A) 2.1 k/uL (1.0-4.8); Lymphocytes % (A) 24 %; MCH 30.3 pg (25.0-35.0); MCHC 33.3 g/dL (31.0-37.0); Mean Platelet Volume 9.1; Monocytes # (A) 0.6 k/uL (0-1.0); Monocytes % (A) 6 %; Neutrophils # (A) 5.7 k/uL (1.3-7.7); Neutrophils % (A) 65 %; Platelet Count 85 k/uL (150-450); RBC 2.85 m/uL (4.30-5.90); RDW 13.3 % (11.5-15.5); WBC 8.7 k/uL (3.8-10.6)
[2020-02-05] MEDS: INSULIN ASPART (NovoLOG) 100 UNIT/ML VIAL SQ SCH ×7 (06:50→20:16)
[2020-02-05 06:58] LABS: Potassium 4.3 mmol/L (3.5-5.1)
[2020-02-05 07:00] LABS: ALT 20 U/L (4-49); AST 40 U/L (17-59); African American GFR (CKD) >90 (>60 ml/min/1.73 sqM); Albumin 2.5 g/dL (3.5-5.0); Alkaline Phosphatase 45 U/L (38-126); Anion Gap 5 mmol/L; Blood Urea Nitrogen 11 mg/dL (9-20); Calcium 8.5 mg/dL (8.4-10.2); Carbon Dioxide 25 mmol/L (22-30); Chloride 103 mmol/L (98-107); Glucose 240 mg/dL (74-99); Non-African American GFR(CKD) >90 (>60 ml/min/1.73 sqM); Sodium 133 mmol/L (137-145); Total Bilirubin 0.9 mg/dL (0.2-1.3); Total Protein 4.8 g/dL (6.3-8.2)
[2020-02-05] MEDS: ATENOLOL 25 MG TAB PO SCH ×2 (08:13→20:16)
[2020-02-05] MEDS: GLIMEPIRIDE 2 MG TAB PO SCH (08:13)
[2020-02-05] MEDS: LISINOPRIL 20 MG TAB PO SCH (08:13)
[2020-02-05] MEDS: amLODIPine 10 MG TAB PO SCH (08:13)
--- NOTE | 2020-02-05 10:59 | P.PN ---
Subjective Progress Note Date: 02/05/20 Patient seen and examined. Overall improved. Still with pain left lower extremity. No chest pains or shortness of breath. Did receive 1 unit of blood yesterday for him alone 8.2. A 0.6 this morning. Hemodynamically stable overnight. No acute distress. HEENT is normocephalic. Abdomen soft. Bilateral groins are clean, dry and intact. No evidence of hematoma. There is a dressing in place in the right groin still. Right lower extremity warm and dry. Palpable pedal pulse. Left lower extremity wound VAC at fasciotomy sites clean and dry. Decreased tenderness to palpation of the compartments. Decreased pain with passive motion. Biphasic PT,And AT,monophasic DP. Improved motor function. Objective - Vital Signs Vital signs: Vital Signs Temp 97.4 F L 02/05/20 08:00 Pulse 75 02/05/20 10:00 Resp 10 L 02/05/20 10:00 BP 136/69 02/05/20 10:00 Pulse Ox 95 02/05/20 09:00 Intake & Output 02/04/20 02/05/20 02/05/20 18:59 06:59 18:59 Intake Total 2388.999 1589.442 615.176 Output Total 452 1301 950 Balance 1936.999 288.442 -334.824 Weight 80 kg Intake: IV 1450 900 300 .9 550 900 300 Intake, IV Titration 218.999 69.442 75.176 Amount Alteplase 10 mg In Sodium 48.667 Chloride 0.9% 100 ml @ 1 MG/HR 10 mls/hr IV .Q10H DENNISE Rx#:[id number] Heparin Sod,Pork in 0.45% 20.332 69.442 75.176 NaCl 25,000 unit In 0.45 % NaCl 1 250ml.bag @ 12 UNITS/KG/HR 9.384 mls/hr IV .Q24H DENNISE Rx#: [id number] Sodium Chloride 0.9% 1, 150 000 ml @ 75 mls/hr IV . [id number] DENNISE Rx#:[id number] Oral 720 240 Blood Product 620 Rc Pheresis As-3 Unit 310 [id number] Output: Drainage 100 Left Calf 100 Urine 450 1201 950 Estimated Blood Loss 2 Other: Voiding Method Urinal Urinal Urinal - Labs CBC & Chem 7: 02/05/20 05:58 02/05/20 05:58 Labs: Abnormal Lab Results - Last 24 Hours (Table) 02/02/20 02/04/20 02/04/20 Range/Units 08:53 13:08 15:40 RBC (4.30-5.90) m/uL Hgb (13.0-17.5) gm/dL Hct (39.0-53.0) % Plt Count (150-450) k/uL APTT (22.0-30.0) sec Sodium 132 L (137-145) mmol/L Glucose 152 H (74-99) mg/dL POC Glucose (mg/dL) 188 H (75-99) mg/dL Calcium 8.1 L (8.4-10.2) mg/dL Total Protein 4.7 L (6.3-8.2) g/dL Albumin 2.4 L (3.5-5.0) g/dL Crossmatch See Detail 02/04/20 02/04/20 02/04/20 Range/Units 15:40 16:57 20:19 RBC 2.71 L (4.30-5.90) m/uL Hgb 8.2 L (13.0-17.5) gm/dL Hct 24.7 L (39.0-53.0) % Plt Count 99 L (150-450) k/uL APTT (22.0-30.0) sec Sodium (137-145) mmol/L Glucose (74-99) mg/dL POC Glucose (mg/dL) 185 H 278 H (75-99) mg/dL Calcium (8.4-10.2) mg/dL Total Protein (6.3-8.2) g/dL Albumin (3.5-5.0) g/dL Crossmatch 02/04/20 02/05/20 02/05/20 Range/Units 23:14 05:58 05:58 RBC 2.85 L (4.30-5.90) m/uL Hgb 8.6 L (13.0-17.5) gm/dL Hct 25.9 L (39.0-53.0) % Plt Count 85 L (150-450) k/uL APTT 42.1 H 84.2 H (22.0-30.0) sec Sodium (137-145) mmol/L Glucose (74-99) mg/dL POC Glucose (mg/dL) (75-99) mg/dL Calcium (8.4-10.2) mg/dL Total Protein (6.3-8.2) g/dL Albumin (3.5-5.0) g/dL Crossmatch 02/05/20 02/05/20 Range/Units 05:58 06:23 RBC (4.30-5.90) m/uL Hgb (13.0-17.5) gm/dL Hct (39.0-53.0) % Plt Count (150-450) k/uL APTT (22.0-30.0) sec Sodium 133 L (137-145) mmol/L Glucose 240 H (74-99) mg/dL POC Glucose (mg/dL) 281 H (75-99) mg/dL Calcium (8.4-10.2) mg/dL Total Protein 4.8 L (6.3-8.2) g/dL Albumin 2.5 L (3.5-5.0) g/dL Crossmatch Assessment and Plan Assessment: Acute limb ischemia left lower extremity, Status post revascularization Left lower extremity compartment syndrome, status post 4 compartment fasciotomy Anemia, acute blood loss anemia, Expected and secondary toThrombectomy procedure. No evidence of bleeding at this point. Peripheral arterial disease with bilateral superficial femoral artery occlusions status post bilateral femoral to popliteal artery bypass with PTFE Recent DVT Plan: Doing well overall. No further evidence of ischemia, compartment syndrome resolved. Transfuse blood at this point, he does have a remote history of a heart attack therefore will be more liberal with blood transfusion. He does remain hemodynamically stable at this point. Would like him above 9 at least. Increase activity as tolerated. Physical therapy. Hopeful for return to OR for wound closure in the next 3-4 days after decreased edema
[2020-02-05 11:43] LABS: Glucose,Whole Blood 329 mg/dL (75-99)
[2020-02-05] MEDS: HEPARIN SOD,PORK IN 0.45% NACL 25,000 UNIT in 0.45% NACL 1 250ML.BAG IV SCH (11:48)
[2020-02-05] MEDS: GABAPENTIN 300 MG CAP PO SCH ×2 (11:49→20:16)
--- NOTE | 2020-02-05 15:35 | PN ---
PROGRESS NOTE Patient is seen for followup for acute kidney injury. Renal function has improved. Serum creatinine is down to 0.8 mg/dL. Patient has good urine output. He has had multiple IV contrast for lower extremity angiograms. This morning he states his left leg is feeling better. He is able to move his foot. EXAMINATION: Blood pressure was 149/72, heart rate 69 per minute, patient is afebrile. Examination shows patient is euvolemic. No significant edema noted in his right lower extremity. LABS: Show sodium 133, potassium 4.3, chloride 103, BUN 11, serum creatinine 0.8. ASSESSMENT: 1. Acute kidney injury, acute tubular necrosis, currently improved, mainly associated with hypotension. Continue to monitor urine output and renal function and avoid other nephrotoxic agents. May continue with IV fluids. Repeat labs in a.m. 2. Left lower extremity ischemia, status post left lower extremity angiograms and angioplasty and stent placement. 3. Hypertension, currently controlled. PLAN: Continue IV fluids. Repeat labs in a.m. MMODL / IJN: [id number] /
[2020-02-05] MEDS: SODIUM CHLORIDE 0.9% 1,000 ML IV SCH (16:55)
[2020-02-05 17:00] LABS: Glucose,Whole Blood 185 mg/dL (75-99)
--- NOTE | 2020-02-05 17:07 | P.PN ---
Subjective Progress Note Date: 02/05/20 Principal diagnosis: Critical limb ischemia left lower extremity Status post previous revascularization Presumed compartment syndrome 54-year-old male with a known history of hypertension, diabetes type 2 uncontrolled insulin-dependent, peripheral vascular disease with history of fem- pop bypass graft and stent in 2019 came to ER with the complaints of left great toe pain worsening for the past 4 days. Patient also having cramps in his left leg for approximately last 2 weeks. Otherwise denied any complaints of chest pain or shortness of breath. No fever no chills. No cough or sputum production. No nausea vomiting or abdominal pain or diarrhea. Denied any recent illnesses. patient was seen by vascular surgery and was taken to operating room today due to thrombosed left femoral-popliteal bypass graft. Patient underwent catheterization of the left femoral artery from the contralateral approach and TPA lysis of thrombosed left femoral-popliteal bypass graft. Patient is currently being monitored in the MICU. Continued on TPA and heparin drip. Patient is still complaining of left foot pain and requesting pain medications. 02/04/2020 Patient is seen and evaluated in ICU; patient is status post left lower extremity 4 compartment fasciotomy for presumed compartment syndrome; patient underwent endovascular revascularization for acute lower extremity ischemia to left leg which was followed by increasing pain with passive movements and patient was decided to do benefit from fasciotomy Patient's vital signs are stable postoperatively; lab review shows slight drop in hemoglobin from 8.2 down from 9.2 yesterday 02/05/2020 Patient remains in ICU; reports some improvement in pain in left lower extremity; vital signs remained stable with a temp of 97.4, pulse 75, respiration 18 and blood pressure 136/69 with SpO2 of 95% Patient continues to have wound VAC at fasciotomy site Hemoglobin is 8.2 this morning after transfusion of 1 unit of packed RBCs yesterday; recommendations are to keep hemoglobin above 9 due to remote history of coronary artery disease Patient is status post fasciotomy for left lower extremity compartment syndrome; PT is on board to increase activity; tentative plan for OR for wound closure in next 3-4 days Objective - Vital Signs Vital signs: Vital Signs Temp 97.8 F 02/05/20 12:00 Pulse 70 02/05/20 13:00 Resp 11 L 02/05/20 13:00 BP 152/68 02/05/20 13:00 Pulse Ox 95 02/05/20 12:00 Intake & Output 02/04/20 02/05/20 02/05/20 18:59 06:59 18:59 Intake Total 2388.999 0536.842 6465.717 Output Total 452 1301 1050 Balance 1936.999 288.442 192.717 Weight 80 kg Intake: IV 1450 900 525 .9 550 900 525 Intake, IV Titration 218.999 69.442 117.717 Amount Alteplase 10 mg In Sodium 48.667 Chloride 0.9% 100 ml @ 1 MG/HR 10 mls/hr IV .Q10H [facility] Rx#:[id number] Heparin Sod,Pork in 0.45% 20.332 69.442 117.717 NaCl 25,000 unit In 0.45 % NaCl 1 250ml.bag @ 12 UNITS/KG/HR 9.384 mls/hr IV .Q24H [facility] Rx#: [id number] Sodium Chloride 0.9% 1, 150 000 ml @ 75 mls/hr IV . [id number] [facility] Rx#:[id number] Oral 720 600 Blood Product 620 Rc Pheresis As-3 Unit 310 [id number] Output: Drainage 100 100 Left Calf 100 100 Urine 450 1201 950 Estimated Blood Loss 2 Other: Voiding Method Urinal Urinal Urinal - Exam PHYSICAL EXAMINATION: GENERAL: The patient is alert and oriented x3, not in any acute distress. Well developed, well nourished. HEENT: Pupils are round and equally reacting to light. EOMI. No scleral icterus. No conjunctival pallor. Normocephalic, atraumatic. No pharyngeal erythema. No thyromegaly. CARDIOVASCULAR: S1 and S2 present. No murmurs, rubs, or gallops. PULMONARY: Chest is clear to auscultation, no wheezing or crackles. ABDOMEN: Soft, nontender, nondistended, normoactive bowel sounds. No palpable organomegaly. MUSCULOSKELETAL: No joint swelling or deformity. EXTREMITIES: No cyanosis, clubbing, or pedal edema. NEUROLOGICAL: Gross neurological examination did not reveal any focal deficits. SKIN: No rashes. - Labs CBC & Chem 7: 02/05/20 05:58 02/05/20 05:58 Labs: Abnormal Lab Results - Last 24 Hours (Table) 02/02/20 02/04/2020 Range/Units 08:53 15:40 15:40 RBC 2.71 L (4.30-5.90) m/uL Hgb 8.2 L (13.0-17.5) gm/dL Hct 24.7 L (39.0-53.0) % Plt Count 99 L (150-450) k/uL APTT (22.0-30.0) sec Sodium 132 L (137-145) mmol/L Glucose 152 H (74-99) mg/dL POC Glucose (mg/dL) (75-99) mg/dL Calcium 8.1 L (8.4-10.2) mg/dL Total Protein 4.7 L (6.3-8.2) g/dL Albumin 2.4 L (3.5-5.0) g/dL Crossmatch See Detail 02/04/20 02/04/20 02/04/20 Range/Units 16:57 20:19 23:14 RBC (4.30-5.90) m/uL Hgb (13.0-17.5) gm/dL Hct (39.0-53.0) % Plt Count (150-450) k/uL APTT 42.1 H (22.0-30.0) sec Sodium (137-145) mmol/L Glucose (74-99) mg/dL POC Glucose (mg/dL) 185 H 278 H (75-99) mg/dL Calcium (8.4-10.2) mg/dL Total Protein (6.3-8.2) g/dL Albumin (3.5-5.0) g/dL Crossmatch 02/05/20 02/05/20 02/05/20 Range/Units 05:58 05:58 05:58 RBC 2.85 L (4.30-5.90) m/uL Hgb 8.6 L (13.0-17.5) gm/dL Hct 25.9 L (39.0-53.0) % Plt Count 85 L (150-450) k/uL APTT 84.2 H (22.0-30.0) sec Sodium 133 L (137-145) mmol/L Glucose 240 H (74-99) mg/dL POC Glucose (mg/dL) (75-99) mg/dL Calcium (8.4-10.2) mg/dL Total Protein 4.8 L (6.3-8.2) g/dL Albumin 2.5 L (3.5-5.0) g/dL Crossmatch 02/05/20 02/05/20 02/05/20 Range/Units 06:23 11:42 13:04 RBC (4.30-5.90) m/uL Hgb (13.0-17.5) gm/dL Hct (39.0-53.0) % Plt Count (150-450) k/uL APTT 37.5 H (22.0-30.0) sec Sodium (137-145) mmol/L Glucose (74-99) mg/dL POC Glucose (mg/dL) 281 H 329 H (75-99) mg/dL Calcium (8.4-10.2) mg/dL Total Protein (6.3-8.2) g/dL Albumin (3.5-5.0) g/dL Crossmatch Assessment and Plan Assessment: Left foot pain secondary to ischemia due to thrombosed left femoral-popliteal bypass graft. Status post catheterization from contralateral approach and TPA thrombolysis of thrombosis fem-pop bypass graft. Peripheral vascular disease Acute kidney injury most likely prerenal improved now. Hypertension Hyperglycemia with uncontrolled diabetes type 2 insulin-dependent Hyperlipidemia History of DVT of the left lower extremity History of uvitis and glaucoma Previous history of smoking History of marijuana use Plan: Patient is status post TPA thrombolysis today by vascular surgery. Continued with pain management. Patient is being continued on alteplase and heparin drip. Continue with insulin dose and sliding scale. Titrate dose as needed. Continue with home blood pressure medications and follow up closely. Vascular surgery and nephrology is on board. Further recommendations based on the clinical course.
[2020-02-05 20:09] LABS: Glucose,Whole Blood 140 mg/dL (75-99)
[2020-02-05] MEDS: HYDROcodone/APAP 5-325MG 1 EACH TAB PO PRN (20:15)
[2020-02-05] MEDS: INSULIN DETEMIR (LEVEMIR) 100 UNIT/ML SYR SQ SCH (20:16)
[2020-02-05 21:14] LABS: Basophils % (A) 0 %; Eosinophils # (A) 0.2 k/uL (0-0.7); Eosinophils % (A) 2 %; HCT 31.8 % (39.0-53.0); HGB 10.4 gm/dL (13.0-17.5); Lymphocytes # (A) 2.2 k/uL (1.0-4.8); Lymphocytes % (A) 25 %; MCH 29.7 pg (25.0-35.0); MCHC 32.6 g/dL (31.0-37.0); Mean Platelet Volume 8.4; Monocytes # (A) 0.6 k/uL (0-1.0); Monocytes % (A) 7 %; Neutrophils # (A) 5.4 k/uL (1.3-7.7); Neutrophils % (A) 64 %; Platelet Count 107 k/uL (150-450); RBC 3.49 m/uL (4.30-5.90); RDW 13.6 % (11.5-15.5); WBC 8.5 k/uL (3.8-10.6)
[2020-02-06] MEDS: HYDROcodone/APAP 5-325MG 1 EACH TAB PO PRN ×5 (01:16→16:28)
[2020-02-06] MEDS: SODIUM CHLORIDE 0.9% 1,000 ML IV SCH ×2 (01:18→16:54)
[2020-02-06 04:54] LABS: Basophils % (A) 1 %; Eosinophils # (A) 0.2 k/uL (0-0.7); Eosinophils % (A) 3 %; HCT 29.7 % (39.0-53.0); HGB 10.1 gm/dL (13.0-17.5); Lymphocytes # (A) 2.6 k/uL (1.0-4.8); Lymphocytes % (A) 31 %; MCH 31.3 pg (25.0-35.0); MCV 91.9 fL (80.0-100.0); Mean Platelet Volume 8.4; Monocytes # (A) 0.6 k/uL (0-1.0); Monocytes % (A) 8 %; Neutrophils # (A) 4.6 k/uL (1.3-7.7); Neutrophils % (A) 55 %; Platelet Count 119 k/uL (150-450); RBC 3.23 m/uL (4.30-5.90); RDW 13.1 % (11.5-15.5); WBC 8.3 k/uL (3.8-10.6)
[2020-02-06 05:59] LABS: ALT 46 U/L (4-49); AST 55 U/L (17-59); African American GFR (CKD) >90 (>60 ml/min/1.73 sqM); Albumin 2.9 g/dL (3.5-5.0); Alkaline Phosphatase 54 U/L (38-126); Anion Gap 3 mmol/L; Blood Urea Nitrogen 5 mg/dL (9-20); Calcium 8.5 mg/dL (8.4-10.2); Carbon Dioxide 29 mmol/L (22-30); Chloride 102 mmol/L (98-107); Glucose 159 mg/dL (74-99); Non-African American GFR(CKD) >90 (>60 ml/min/1.73 sqM); Sodium 134 mmol/L (137-145); Total Bilirubin 1.1 mg/dL (0.2-1.3); Total Protein 5.3 g/dL (6.3-8.2)
[2020-02-06 06:43] LABS: Glucose,Whole Blood 246 mg/dL (75-99)
[2020-02-06] MEDS: INSULIN ASPART (NovoLOG) 100 UNIT/ML VIAL SQ SCH ×7 (06:49→21:18)
--- NOTE | 2020-02-06 08:19 | IR ---
EXAMINATION TYPE: IR angio lower extremity LT DATE OF EXAM: 02/03/2020 CLINICAL HISTORY: Left foot pain. TECHNIQUE: Fluoroscopy. COMPARISON: None. FINDINGS: Fluoroscopic guidance was provided during angiogram with intravenous TPA procedure perform ed by Dr. Hess. A total of 48.7 minutes of fluoroscopic time was utilized during the procedure and multiple cine runs are acquired. Images acquired show access via left groin. Please refer to procedur e note for further details as I was not present nor performed procedure. IMPRESSION: As Above.
[2020-02-06] MEDS: ATENOLOL 25 MG TAB PO SCH ×2 (08:46→20:07)
[2020-02-06] MEDS: amLODIPine 10 MG TAB PO SCH (08:47)
[2020-02-06] MEDS: LISINOPRIL 20 MG TAB PO SCH (08:47)
[2020-02-06] MEDS: GABAPENTIN 300 MG CAP PO SCH ×3 (08:47→22:22)
[2020-02-06] MEDS: GLIMEPIRIDE 2 MG TAB PO SCH (08:47)
--- NOTE | 2020-02-06 11:28 | P.PN ---
Subjective Patient seen and examined laying down in bed in no acute distress. He has his left leg elevated on a pillow with wound VAC in place at the fasciotomy sites. He is comfortable currently however states when he sits up in a chair and his leg is dependent he has significant pain and notices an increase in drainage in the wound VAC. Blood pressure 153/80 476 afebrile maintaining oxygen saturation on room air. Laboratory data reviewed, WBC 8.3, hemoglobin 10.1, platelets 119, sodium 134, potassium 4, creatinine 0.73 and albumin 2.9. Currently maintained on heparin infusion. Drainage from wound vac 200 ml in the previous 24 hours. GENERAL: Well-appearing, well-nourished and in no acute distress. EXTREMITIES: No edema, motor function to left lower extremity improving. Full range of motion on the right. Positive pedal pulses. Dressing in place left anterior tibial region with wound vac at fasciotomy sites. Dressing is clean and dry. No erythema noted at the sites. Right groin access site with dressing in place, no swelling, bleeding or pain at the site. ASSESSMENT Acute limb ischemia, left lower extremity status post revascularization Left lower extremity compartment syndrome status post 4 compartment fasciotomy Acute blood loss anemia secondary to thrombectomy procedure Peripheral arterial disease with bilateral superficial femoral artery occlusions status post bilateral thumb pop bypass History of DVT PLAN Increase activity and out of bed as tolerated. Consult to physical therapy. Hemodynamically stable. Transfer to med-surg unit. Continue to monitor CBC daily. Plan to return to OR for wound closure with Dr. Hess in the next 2-3 days. Nurse Practitioner note has been reviewed, I agree with a documented findings and plan of care. Patient was seen and examined. Objective - Vital Signs Vital signs: Vital Signs Temp 98.4 F 02/06/20 08:00 Pulse 67 02/06/20 11:00 Resp 11 L 02/06/20 11:00 BP 164/88 02/06/20 11:00 Pulse Ox 98 02/06/20 11:00 Intake & Output 02/05/20 02/06/20 02/06/20 18:59 06:59 18:59 Intake Total 2269.623 1488.673 375 Output Total 1925 3325 700 Balance 344.623 -1836.327 -325 Weight 78.4 kg Intake: IV 900 845 375 .9 900 845 375 Intake, IV Titration 149.623 163.673 Amount Heparin Sod,Pork in 0.45% 149.623 163.673 NaCl 25,000 unit In 0.45 % NaCl 1 250ml.bag @ 12 UNITS/KG/HR 9.384 mls/hr IV .Q24H [facility] Rx#: [id number] Oral 600 480 Blood Product 620 Rc As-1 Unit 310 [id number] Output: Drainage 200 Left Calf 200 Urine 1725 3325 700 Other: Voiding Method Urinal Urinal Urinal - Labs CBC & Chem 7: 02/06/20 04:15 02/06/20 04:15 Labs: Abnormal Lab Results - Last 24 Hours (Table) 02/02/20 02/05/20 02/05/20 Range/Units 08:53 11:42 13:04 RBC (4.30-5.90) m/uL Hgb (13.0-17.5) gm/dL Hct (39.0-53.0) % Plt Count (150-450) k/uL APTT 37.5 H (22.0-30.0) sec Sodium (137-145) mmol/L BUN (9-20) mg/dL Glucose (74-99) mg/dL POC Glucose (mg/dL) 329 H (75-99) mg/dL Total Protein (6.3-8.2) g/dL Albumin (3.5-5.0) g/dL Crossmatch See Detail 02/05/20 02/05/20 02/05/20 Range/Units 13:04 16:58 20:08 RBC (4.30-5.90) m/uL Hgb (13.0-17.5) gm/dL Hct (39.0-53.0) % Plt Count (150-450) k/uL APTT (22.0-30.0) sec Sodium (137-145) mmol/L BUN (9-20) mg/dL Glucose (74-99) mg/dL POC Glucose (mg/dL) 185 H 140 H (75-99) mg/dL Total Protein (6.3-8.2) g/dL Albumin (3.5-5.0) g/dL Crossmatch See Detail 02/05/20 02/05/20 02/06/20 Range/Units 20:50 20:50 04:15 RBC 3.49 L 3.23 L (4.30-5.90) m/uL Hgb 10.4 L 10.1 L (13.0-17.5) gm/dL Hct 31.8 L 29.7 L (39.0-53.0) % Plt Count 107 L 119 L (150-450) k/uL APTT 38.6 H (22.0-30.0) sec Sodium (137-145) mmol/L BUN (9-20) mg/dL Glucose (74-99) mg/dL POC Glucose (mg/dL) (75-99) mg/dL Total Protein (6.3-8.2) g/dL Albumin (3.5-5.0) g/dL Crossmatch 02/06/20 02/06/20 02/06/20 Range/Units 04:15 04:15 06:42 RBC (4.30-5.90) m/uL Hgb (13.0-17.5) gm/dL Hct (39.0-53.0) % Plt Count (150-450) k/uL APTT 67.2 H (22.0-30.0) sec Sodium 134 L (137-145) mmol/L BUN 5 L (9-20) mg/dL Glucose 159 H (74-99) mg/dL POC Glucose (mg/dL) 246 H (75-99) mg/dL Total Protein 5.3 L (6.3-8.2) g/dL Albumin 2.9 L (3.5-5.0) g/dL Crossmatch
[2020-02-06 12:14] LABS: Glucose,Whole Blood 207 mg/dL (75-99)
[2020-02-06] MEDS: HEPARIN SOD,PORK IN 0.45% NACL 25,000 UNIT in 0.45% NACL 1 250ML.BAG IV SCH (12:48)
--- NOTE | 2020-02-06 15:47 | IR ---
Fluoroscopy HISTORY: Peripheral vascular occlusive disease, TPA infusion 5.1 minutes fluoroscopy time supplied to the referring clinician. 280 intraoperative C-arm images do cument the procedure. See dictated report from vascular surgery.
[2020-02-06 17:33] LABS: Glucose,Whole Blood 279 mg/dL (75-99)
[2020-02-06 19:24] LABS: Glucose,Whole Blood 453 mg/dL (75-99)
[2020-02-06] MEDS: INSULIN DETEMIR (LEVEMIR) 100 UNIT/ML SYR SQ SCH (20:07)
[2020-02-06 21:01] LABS: Glucose,Whole Blood 387 mg/dL (75-99)
--- NOTE | 2020-02-06 23:58 | P.PN ---
Subjective Progress Note Date: 02/06/20 Principal diagnosis: Critical limb ischemia left lower extremity Status post previous revascularization Presumed compartment syndrome 54-year-old male with a known history of hypertension, diabetes type 2 uncontrolled insulin-dependent, peripheral vascular disease with history of fem- pop bypass graft and stent in 2019 came to ER with the complaints of left great toe pain worsening for the past 4 days. Patient also having cramps in his left leg for approximately last 2 weeks. Otherwise denied any complaints of chest pain or shortness of breath. No fever no chills. No cough or sputum production. No nausea vomiting or abdominal pain or diarrhea. Denied any recent illnesses. patient was seen by vascular surgery and was taken to operating room today due to thrombosed left femoral-popliteal bypass graft. Patient underwent catheterization of the left femoral artery from the contralateral approach and TPA lysis of thrombosed left femoral-popliteal bypass graft. Patient is currently being monitored in the MICU. Continued on TPA and heparin drip. Patient is still complaining of left foot pain and requesting pain medications. 02/04/2020 Patient is seen and evaluated in ICU; patient is status post left lower extremity 4 compartment fasciotomy for presumed compartment syndrome; patient underwent endovascular revascularization for acute lower extremity ischemia to left leg which was followed by increasing pain with passive movements and patient was decided to do benefit from fasciotomy Patient's vital signs are stable postoperatively; lab review shows slight drop in hemoglobin from 8.2 down from 9.2 yesterday 02/05/2020 Patient remains in ICU; reports some improvement in pain in left lower extremity; vital signs remained stable with a temp of 97.4, pulse 75, respiration 18 and blood pressure 136/69 with SpO2 of 95% Patient continues to have wound VAC at fasciotomy site Hemoglobin is 8.2 this morning after transfusion of 1 unit of packed RBCs yesterday; recommendations are to keep hemoglobin above 9 due to remote history of coronary artery disease Patient is status post fasciotomy for left lower extremity compartment syndrome; PT is on board to increase activity; tentative plan for OR for wound closure in next 3-4 days 02/06/2020 Patient is currently lying in the bed comfortably. Wound VAC is in place at the fasciotomy site, due to compartment syndrome. Otherwise patient is able to sit in the chair. Currently on oxygen on room air. Continued heparin drip. Laboratory data showed hemoglobin 10.1, sodium 134, BUN 5, creatinine 0.73, WBC 8.3 Blood sugar is elevated to 46 Cardiology is following. Vascular surgery is planning for OR for wound closure in the next 2-3 days. Active Medications Hydrocodone Bitart/Acetaminophen ([place] 5-325) 1 each PO Q4HR PRN PRN Reason: Pain Last Admin: 02/06/20 16:28 Dose: 1 each Documented by: Amlodipine Besylate (Norvasc) 10 mg PO DAILY [facility] Last Admin: 02/06/20 08:47 Dose: 10 mg Documented by: Atenolol (Tenormin) 25 mg PO BID [facility] Last Admin: 02/06/20 20:07 Dose: 25 mg Documented by: Gabapentin (Neurontin) 300 mg PO TID [facility] Last Admin: 02/06/20 22:22 Dose: 300 mg Documented by: Glimepiride (Amaryl) 2 mg PO DAILY [facility] Last Admin: 02/06/20 08:47 Dose: 2 mg Documented by: Heparin Sodium (Porcine) (Heparin) 0 unit IV PER PROTOCOL PRN; Protocol PRN Reason: Low PTT Last Admin: 02/05/20 00:23 Dose: 1,950 unit Documented by: Hydromorphone HCl (Dilaudid) 1 mg IVP Q2H PRN PRN Reason: Pain Last Admin: 02/05/20 22:53 Dose: 1 mg Documented by: Heparin Sodium/Sodium Chloride (25,000 unit/ Sodium Chloride) 250 mls @ 9.384 mls/hr IV .Q24H [facility]; Protocol Last Admin: 02/06/20 12:48 Dose: 14 units/kg/hr, 10.948 mls/hr Documented by: Sodium Chloride (Saline 0.9%) 1,000 mls @ 75 mls/hr IV .[id number] [facility] Last Admin: 02/06/20 16:54 Dose: 75 mls/hr Documented by: Insulin Aspart (Novolog) 0 unit SQ ACHS [facility]; Protocol Last Admin: 02/06/20 21:18 Dose: 7 unit Documented by: Insulin Aspart (Novolog) 5 unit SQ TID-W/MEALS [facility] Last Admin: 02/06/20 17:42 Dose: 5 unit Documented by: Insulin Detemir (Levemir) 15 unit SQ HS [facility] Last Admin: 02/06/20 20:07 Dose: 15 unit Documented by: Lisinopril (Zestril) 20 mg PO DAILY [facility] Last Admin: 02/06/20 08:47 Dose: 20 mg Documented by: Miscellaneous Information (Potassium Per Protocol) 1 each MISCELLANE DAILY PRN; Protocol PRN Reason: Per Protocol Naloxone HCl (Narcan) 0.2 mg IV Q2M PRN PRN Reason: Opioid Reversal Objective - Vital Signs Vital signs: Vital Signs Temp 97.3 F L 02/06/20 14:57 Pulse 69 02/06/20 14:57 Resp 16 02/06/20 14:57 BP 134/68 02/06/20 14:57 Pulse Ox 99 02/06/20 14:57 Intake & Output 02/06/20 02/06/20 02/07/20 06:59 18:59 06:59 Intake Total 5706.016 9801.421 Output Total 3325 1700 Balance -1836.327 -480.579 Weight 78.4 kg Intake: IV 845 525 .9 845 525 Intake, IV Titration 163.673 54.421 Amount Heparin Sod,Pork in 0.45% 163.673 54.421 NaCl 25,000 unit In 0.45 % NaCl 1 250ml.bag @ 12 UNITS/KG/HR 9.384 mls/hr IV .Q24H [facility] Rx#: [id number] Oral 480 640 Output: Urine 3325 1700 Other: Voiding Method Urinal Urinal # Voids 1 - Exam PHYSICAL EXAMINATION: GENERAL: The patient is alert and oriented x3, not in any acute distress. Well developed, well nourished. HEENT: Pupils are round and equally reacting to light. EOMI. No scleral icterus. No conjunctival pallor. Normocephalic, atraumatic. No pharyngeal erythema. No thyromegaly. CARDIOVASCULAR: S1 and S2 present. No murmurs, rubs, or gallops. PULMONARY: Chest is clear to auscultation, no wheezing or crackles. ABDOMEN: Soft, nontender, nondistended, normoactive bowel sounds. No palpable organomegaly. MUSCULOSKELETAL: No joint swelling or deformity. EXTREMITIES: Dressing in place left anterior tibial region with wound vac at fas ciotomy sites. Dressing is clean and dry. No erythema noted at the sites. Right groin access site with dressing in place, no swelling, bleeding or pain at the site.a. NEUROLOGICAL: Gross neurological examination did not reveal any focal deficits. SKIN: No rashes. - Labs CBC & Chem 7: 02/06/20 04:15 02/06/20 04:15 Labs: Abnormal Lab Results - Last 24 Hours (Table) 02/05/20 02/05/20 02/05/20 Range/Units 20:08 20:50 20:50 RBC 3.49 L (4.30-5.90) m/uL Hgb 10.4 L (13.0-17.5) gm/dL Hct 31.8 L (39.0-53.0) % Plt Count 107 L (150-450) k/uL APTT 38.6 H (22.0-30.0) sec Sodium (137-145) mmol/L BUN (9-20) mg/dL Glucose (74-99) mg/dL POC Glucose (mg/dL) 140 H (75-99) mg/dL Total Protein (6.3-8.2) g/dL Albumin (3.5-5.0) g/dL 02/06/20 02/06/20 02/06/20 Range/Units 04:15 04:15 04:15 RBC 3.23 L (4.30-5.90) m/uL Hgb 10.1 L (13.0-17.5) gm/dL Hct 29.7 L (39.0-53.0) % Plt Count 119 L (150-450) k/uL APTT 67.2 H (22.0-30.0) sec Sodium 134 L (137-145) mmol/L BUN 5 L (9-20) mg/dL Glucose 159 H (74-99) mg/dL POC Glucose (mg/dL) (75-99) mg/dL Total Protein 5.3 L (6.3-8.2) g/dL Albumin 2.9 L (3.5-5.0) g/dL 02/06/20 02/06/20 02/06/20 Range/Units 06:42 10:54 12:01 RBC (4.30-5.90) m/uL Hgb (13.0-17.5) gm/dL Hct (39.0-53.0) % Plt Count (150-450) k/uL APTT 49.2 H (22.0-30.0) sec Sodium (137-145) mmol/L BUN (9-20) mg/dL Glucose (74-99) mg/dL POC Glucose (mg/dL) 246 H 207 H (75-99) mg/dL Total Protein (6.3-8.2) g/dL Albumin (3.5-5.0) g/dL 02/06/20 02/06/20 Range/Units 17:30 19:22 RBC (4.30-5.90) m/uL Hgb (13.0-17.5) gm/dL Hct (39.0-53.0) % Plt Count (150-450) k/uL APTT (22.0-30.0) sec Sodium (137-145) mmol/L BUN (9-20) mg/dL Glucose (74-99) mg/dL POC Glucose (mg/dL) 279 H 453 H (75-99) mg/dL Total Protein (6.3-8.2) g/dL Albumin (3.5-5.0) g/dL Assessment and Plan Assessment: Left foot pain secondary to ischemia due to thrombosed left femoral-popliteal bypass graft. Status post catheterization from contralateral approach and TPA thrombolysis of thrombosis fem-pop bypass graft. Left lower extremity compartment syndrome status post 4 compartment fasciotomy Acute blood loss anemia secondary to thrombectomy procedure Peripheral vascular disease Acute kidney injury most likely prerenal improved now. Hypertension Hyperglycemia with uncontrolled diabetes type 2 insulin-dependent Hyperlipidemia History of DVT of the left lower extremity History of uvitis and glaucoma Previous history of smoking History of marijuana use Plan: Patient is status post TPA thrombolysis by vascular surgery. Continued with pain management. Patient is being continued on heparin drip. Continue with insulin dose and sliding scale. Titrate dose as needed. Continue with home blood pressure medications and follow up closely. Vascular surgery and nephrology is on board. Further recommendations based on the clinical course. PT/OT Time with Patient: Greater than 30
[2020-02-07] MEDS: HYDROcodone/APAP 5-325MG 1 EACH TAB PO PRN ×2 (01:19→19:40)
[2020-02-07] MEDS: HYDROmorphone 1 MG/ML 1 ML SYRINGE IVP PRN ×5 (03:51→23:56)
[2020-02-07] MEDS: SODIUM CHLORIDE 0.9% 1,000 ML IV SCH (06:57)
[2020-02-07 06:58] LABS: Glucose,Whole Blood 215 mg/dL (75-99)
[2020-02-07 07:23] LABS: Basophils % (A) 0 %; Eosinophils # (A) 0.2 k/uL (0-0.7); Eosinophils % (A) 3 %; HGB 9.7 gm/dL (13.0-17.5); Lymphocytes # (A) 2.7 k/uL (1.0-4.8); Lymphocytes % (A) 31 %; MCHC 33.6 g/dL (31.0-37.0); MCV 92.3 fL (80.0-100.0); Mean Platelet Volume 8.5; Monocytes # (A) 0.6 k/uL (0-1.0); Monocytes % (A) 7 %; Neutrophils # (A) 4.9 k/uL (1.3-7.7); Neutrophils % (A) 56 %; RBC 3.14 m/uL (4.30-5.90); RDW 13.5 % (11.5-15.5); WBC 8.7 k/uL (3.8-10.6)
[2020-02-07 07:26] LABS: African American GFR (CKD) >90 (>60 ml/min/1.73 sqM); Anion Gap 6 mmol/L; Blood Urea Nitrogen 8 mg/dL (9-20); Calcium 8.5 mg/dL (8.4-10.2); Carbon Dioxide 24 mmol/L (22-30); Chloride 102 mmol/L (98-107); Glucose 193 mg/dL (74-99); Non-African American GFR(CKD) >90 (>60 ml/min/1.73 sqM); Potassium 4.4 mmol/L (3.5-5.1); Sodium 132 mmol/L (137-145)
[2020-02-07 07:30] LABS: Platelet Count 184 k/uL (150-450)
[2020-02-07] MEDS: LISINOPRIL 20 MG TAB PO SCH ×2 (08:15→21:11)
[2020-02-07] MEDS: amLODIPine 10 MG TAB PO SCH (08:15)
[2020-02-07] MEDS: INSULIN ASPART (NovoLOG) 100 UNIT/ML VIAL SQ SCH ×7 (08:16→21:10)
[2020-02-07] MEDS: ATENOLOL 25 MG TAB PO SCH ×2 (08:16→21:11)
[2020-02-07] MEDS: GABAPENTIN 300 MG CAP PO SCH ×3 (08:16→21:11)
[2020-02-07] MEDS: GLIMEPIRIDE 2 MG TAB PO SCH (08:17)
--- NOTE | 2020-02-07 09:44 | P.PN ---
Subjective Progress Note Date: 02/07/20 Principal diagnosis: Left lower extremity critical limb ischemia Patient seen and examined in bed eating breakfast in no acute distress. He has his left leg elevated on a pillow with wound VAC in place at the fasciotomy sites. He is comfortable currently but states having numbness, weakness and pain in his foot and calf which he states hasn't really changed a whole lot since the surgery. He states having this discomfort and weakness prior to the original bypass surgery. GENERAL: Well-appearing, well-nourished and in no acute distress. EXTREMITIES: No edema, motor function to left lower extremity diminished but improving. He has decreased range of motion and pain with active and passive range of motion. Palpable DP pulse on left is diminished compared to right. Full range of motion on the right. Positive pedal pulses. Dressing in place left anterior tibial region with wound vac at fasciotomy sites. Dressing is clean and dry. No erythema noted at the sites. Right groin access site with dressing in place, no swelling, bleeding or pain at the site. ASSESSMENT Acute limb ischemia, left lower extremity status post revascularization Left lower extremity compartment syndrome status post 4 compartment fasciotomy Acute blood loss anemia secondary to thrombectomy procedure Peripheral arterial disease with bilateral superficial femoral artery occlusions status post bilateral thumb pop bypass History of DVT PLAN Increase activity and out of bed as tolerated. Consult to physical therapy. Return to OR for closure of fasciotomy tomorrow with Dr. Hess. Objective - Vital Signs Vital signs: Vital Signs Temp 98.1 F 02/07/20 04:52 Pulse 61 02/07/20 04:52 Resp 18 02/07/20 04:52 BP 151/73 02/07/20 04:52 Pulse Ox 99 02/07/20 04:52 Intake & Output 02/06/20 02/07/20 02/07/20 18:59 06:59 18:59 Intake Total 1219.421 150 203.45 Output Total 1700 800 500 Balance -480.579 -650 -296.55 Intake: IV 525 150 .9 525 150 Intake, IV Titration 54.421 203.45 Amount Heparin Sod,Pork in 0.45% 54.421 203.45 NaCl 25,000 unit In 0.45 % NaCl 1 250ml.bag @ 12 UNITS/KG/HR 9.384 mls/hr IV .Q24H [facility] Rx#: [id number] Oral 640 Output: Urine 1700 800 500 Other: Voiding Method Urinal Urinal Urinal # Voids 1 1 - Labs CBC & Chem 7: 02/07/20 06:14 02/07/20 06:14 Labs: Abnormal Lab Results - Last 24 Hours (Table) 02/06/20 02/06/20 02/06/20 Range/Units 10:54 12:01 17:30 RBC (4.30-5.90) m/uL Hgb (13.0-17.5) gm/dL Hct (39.0-53.0) % APTT 49.2 H (22.0-30.0) sec Sodium (137-145) mmol/L BUN (9-20) mg/dL Glucose (74-99) mg/dL POC Glucose (mg/dL) 207 H 279 H (75-99) mg/dL 02/06/20 02/06/20 02/07/20 Range/Units 19:22 20:59 06:14 RBC 3.14 L (4.30-5.90) m/uL Hgb 9.7 L (13.0-17.5) gm/dL Hct 29.0 L (39.0-53.0) % APTT (22.0-30.0) sec Sodium (137-145) mmol/L BUN (9-20) mg/dL Glucose (74-99) mg/dL POC Glucose (mg/dL) 453 H 387 H (75-99) mg/dL 02/07/20 02/07/20 02/07/20 Range/Units 06:14 06:14 06:55 RBC (4.30-5.90) m/uL Hgb (13.0-17.5) gm/dL Hct (39.0-53.0) % APTT 45.6 H (22.0-30.0) sec Sodium 132 L (137-145) mmol/L BUN 8 L (9-20) mg/dL Glucose 193 H (74-99) mg/dL POC Glucose (mg/dL) 215 H (75-99) mg/dL
[2020-02-07] MEDS: HEPARIN SOD,PORK IN 0.45% NACL 25,000 UNIT in 0.45% NACL 1 250ML.BAG IV SCH (10:34)
[2020-02-07 11:24] LABS: Glucose,Whole Blood 251 mg/dL (75-99)
[2020-02-07 13:14] VITALS: BMI 30.6
--- NOTE | 2020-02-07 15:48 | PN ---
PROGRESS NOTE Patient is seen for followup for acute kidney injury associated with hypotension, hypoperfusion as well as multiple IV contrast administrations. Serum creatinine is improved. It is currently at 0.82 mg/dL. Patient is status post fasciotomy and left lower extremity angioplasty and stent placement, currently improving. He has a wound V.A.C. Patient is complaining of pain in his left big toe. PHYSICAL EXAMINATION: On examination today, blood pressure was 170/82, heart rate 71 per minute. He is afebrile. Exam shows patient is euvolemic, with no evidence of edema in his right lower extremity. Abdomen is soft, nontender. 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 Patient's left leg is weak currently; to undergo physical therapy. LABS: Labs show sodium 132, potassium 4.4, chloride 102, CO2 is 24, BUN 8, serum creatinine 0.82, hemoglobin 9.7 g/dL. ASSESSMENT: 1. Acute kidney injury associated with hypotension, currently resolved. 2. Hypertension. Blood pressure is uncontrolled, maintained on lisinopril, Norvasc and Tenormin. I will increase the lisinopril to twice a day. 3. Pain in the left big toe. Rule out gout. Uric acid will be ordered. PLAN: Increase lisinopril. Check uric acid levels. Continue to monitor labs. I will also discontinue the IV fluids. MMODL / IJN: [id number] /
[2020-02-07 17:19] LABS: Glucose,Whole Blood 299 mg/dL (75-99)
[2020-02-07 20:11] LABS: Glucose,Whole Blood 274 mg/dL (75-99)
[2020-02-07] MEDS: INSULIN DETEMIR (LEVEMIR) 100 UNIT/ML SYR SQ SCH (21:10)
[2020-02-07] MEDS: LACTATED RINGERS 1,000 ML IV SCH (23:57)
[2020-02-08] MEDS ORDERED: HYDROmorphone 0.5 MG/0.5 ML SYRINGE IVP PRN (05:00)
[2020-02-08 06:18] LABS: Basophils % (A) 1 %; Eosinophils # (A) 0.3 k/uL (0-0.7); Eosinophils % (A) 3 %; HCT 30.8 % (39.0-53.0); HGB 10.1 gm/dL (13.0-17.5); Lymphocytes # (A) 2.8 k/uL (1.0-4.8); Lymphocytes % (A) 31 %; MCH 30.7 pg (25.0-35.0); MCHC 32.9 g/dL (31.0-37.0); MCV 93.3 fL (80.0-100.0); Mean Platelet Volume 8.4; Monocytes # (A) 0.6 k/uL (0-1.0); Monocytes % (A) 6 %; Neutrophils # (A) 5.1 k/uL (1.3-7.7); Neutrophils % (A) 57 %; Platelet Count 247 k/uL (150-450); RDW 13.9 % (11.5-15.5)
[2020-02-08 06:56] LABS: African American GFR (CKD) >90 (>60 ml/min/1.73 sqM); Anion Gap 7 mmol/L; Blood Urea Nitrogen 7 mg/dL (9-20); Carbon Dioxide 24 mmol/L (22-30); Chloride 101 mmol/L (98-107); Glucose 269 mg/dL (74-99); Non-African American GFR(CKD) >90 (>60 ml/min/1.73 sqM); Potassium 4.6 mmol/L (3.5-5.1); Sodium 132 mmol/L (137-145)
[2020-02-08 07:12] LABS: Glucose,Whole Blood 301 mg/dL (75-99)
[2020-02-08] MEDS: HYDROmorphone 1 MG/ML 1 ML SYRINGE IVP PRN ×2 (08:09→21:12)
[2020-02-08] MEDS: LISINOPRIL 20 MG TAB PO SCH ×2 (08:11→21:12)
[2020-02-08] MEDS: INSULIN ASPART (NovoLOG) 100 UNIT/ML VIAL SQ SCH ×7 (08:11→21:12)
[2020-02-08] MEDS: ATENOLOL 25 MG TAB PO SCH ×2 (08:11→21:11)
[2020-02-08] MEDS: GABAPENTIN 300 MG CAP PO SCH ×3 (08:11→21:12)
[2020-02-08] MEDS: GLIMEPIRIDE 2 MG TAB PO SCH (08:11)
[2020-02-08] MEDS: amLODIPine 10 MG TAB PO SCH (08:11)
[2020-02-08] MEDS: HEPARIN SOD,PORK IN 0.45% NACL 25,000 UNIT in 0.45% NACL 1 250ML.BAG IV SCH ×2 (08:50→11:43)
[2020-02-08 10:58] LABS: Glucose,Whole Blood 276 mg/dL (75-99)
[2020-02-08] MEDS ORDERED: IV FLUID CONTINUATION 1,000 ML IV ONE (11:17)
[2020-02-08] MEDS ORDERED: ONDANSETRON 4 MG/2 ML VIAL IVP ONE (11:25)
[2020-02-08] MEDS ORDERED: SUCCINYLCHOLINE CHLORIDE 100 MG/5 ML SYR IV ONE (12:10)
[2020-02-08] MEDS ORDERED: fentaNYL (PF) 50 MCG/ML 2 ML AMP ONE (12:10)
[2020-02-08] MEDS ORDERED: ePHEDrine SULFATE/0.9% NACL/PF 50 MG/5 ML SYRINGE IV ONE (12:10)
[2020-02-08] MEDS ORDERED: WATER FOR INJECTION, STERILE 10 ML VIAL IV ONE (12:10)
[2020-02-08] MEDS ORDERED: PROPOFOL 10 MG/ML 20 ML VIAL IV ONE (12:10)
[2020-02-08] MEDS ORDERED: LIDOCAINE 1% INJ 10MG/ML (20 ML MDV) ONE (12:10)
[2020-02-08] MEDS ORDERED: MIDAZOLAM 2 MG/2 ML VIAL ONE (12:10)
[2020-02-08] MEDS ORDERED: PHENYLEPHRINE-0.9% NACL SYG 1 MG/10 ML SYRINGE ONE (12:10)
--- NOTE | 2020-02-08 13:00 | P.OP ---
Date of Procedure: 02/08/20 Description of Procedure: Preoperative diagnosis: [Left lower extremity fasciotomy, acute limb ischemia status post revascularization] Postoperative diagnosis: Same Procedure: [Closure of left lower cavity fasciotomy wound] Surgeon: Estela Hess D.O. EBL: [Less than 10 mL] IV fluids: [See anesthesia records] Urine output: [None] Drains: [None] Complications: [None immediately apparent] Condition: [Stable to PACU] Operative indication and findings: [The patient is a 54-year-old male with previous femoral-popliteal bypasses bilaterally, he came in with thrombosis of his left lower cavity graft and underwent thrombolytic interventions with a stent placement. After which time he was having increasing pain and swelling in the left lower extremity therefore fasciotomy was performed. He has been utilizing a wound VAC and the edema has decreased. This time he presents for closure of the wound] Procedure in detail: [The patient was taken to the operative suite and placed in supine position. The left lower extremity was prepped, and draped in usual sterile fashion. A preprocedure timeout was performed, all parties were in agreement. After anesthesia was adequate, 3-0 nylon were utilized and interrupted mattress sutures were placed starting with the lateral wound. The skin edges came together easily without any evidence of undue tension. This is then performed on the medial incision and similarly a came together without any undue tension the area was then cleansed and a dressing was placed. Patient was allowed awaken from anesthesia and transferred to PACU in stable condition having tolerated the procedure well. He continued to have a posterior tibial signal as previously. At this time he does have some patchy areas of ischemic tissues to the great toe, we will allow this to delineate and demarcate further prior to any intervention. He is to continue his anticoagulation.]
[2020-02-08 13:04] LABS: Glucose,Whole Blood 241 mg/dL (75-99)
--- NOTE | 2020-02-08 13:21 | P.ARTDOP ---
Arterial Doppler LOWER EXTREMITY ARTERIAL DOPPLER: DATE OF SERVICE: 02/02/2020 Reason for study: Left great toe pain. Doppler waveforms: Multiphasic throughout on the right. Multiphasic at the left femoral but atypical at the popliteal.. Pulse volume recording: []. Pressure gradients: Unable to do pressures on the left. Gradient only at the foot on the right. Ankle-brachial indices: Greater than 1 on the right. Not recorded normal left. Toe brachial indices: 0.45 on the right, [] on the left Impression: Suspect mild distal disease on the right. Could be vasospastic phenomenon. Suspect moderate to severe left femoral popliteal disease. Clinical correlation per vascular surgery..
[2020-02-08] MEDS: SENNOSIDES-DOCUSATE SODIUM 1 EACH TAB PO PRN (16:04)
[2020-02-08 17:13] LABS: Glucose,Whole Blood 445 mg/dL (75-99)
[2020-02-08 20:04] LABS: Glucose,Whole Blood 385 mg/dL (75-99)
[2020-02-08] MEDS: APIXABAN 5 MG TAB PO SCH ×2 (21:11→21:30)
[2020-02-08] MEDS: INSULIN DETEMIR (LEVEMIR) 100 UNIT/ML SYR SQ SCH (21:12)
[2020-02-08] MEDS: POLYETHYLENE GLYCOL 3350 17 GM POWD.PACK PO PRN (21:12)
--- NOTE | 2020-02-09 01:04 | P.PN ---
Subjective Progress Note Date: 02/07/20 Principal diagnosis: Critical limb ischemia left lower extremity Status post previous revascularization Presumed compartment syndrome 54-year-old male with a known history of hypertension, diabetes type 2 uncontrolled insulin-dependent, peripheral vascular disease with history of fem- pop bypass graft and stent in 2019 came to ER with the complaints of left great toe pain worsening for the past 4 days. Patient also having cramps in his left leg for approximately last 2 weeks. Otherwise denied any complaints of chest pain or shortness of breath. No fever no chills. No cough or sputum production. No nausea vomiting or abdominal pain or diarrhea. Denied any recent illnesses. patient was seen by vascular surgery and was taken to operating room today due to thrombosed left femoral-popliteal bypass graft. Patient underwent catheterization of the left femoral artery from the contralateral approach and TPA lysis of thrombosed left femoral-popliteal bypass graft. Patient is currently being monitored in the MICU. Continued on TPA and heparin drip. Patient is still complaining of left foot pain and requesting pain medications. 02/04/2020 Patient is seen and evaluated in ICU; patient is status post left lower extremity 4 compartment fasciotomy for presumed compartment syndrome; patient underwent endovascular revascularization for acute lower extremity ischemia to left leg which was followed by increasing pain with passive movements and patient was decided to do benefit from fasciotomy Patient's vital signs are stable postoperatively; lab review shows slight drop in hemoglobin from 8.2 down from 9.2 yesterday 02/05/2020 Patient remains in ICU; reports some improvement in pain in left lower extremity; vital signs remained stable with a temp of 97.4, pulse 75, respiration 18 and blood pressure 136/69 with SpO2 of 95% Patient continues to have wound VAC at fasciotomy site Hemoglobin is 8.2 this morning after transfusion of 1 unit of packed RBCs yesterday; recommendations are to keep hemoglobin above 9 due to remote history of coronary artery disease Patient is status post fasciotomy for left lower extremity compartment syndrome; PT is on board to increase activity; tentative plan for OR for wound closure in next 3-4 days 02/06/2020 Patient is currently lying in the bed comfortably. Wound VAC is in place at the fasciotomy site, due to compartment syndrome. Otherwise patient is able to sit in the chair. Currently on oxygen on room air. Continued heparin drip. Laboratory data showed hemoglobin 10.1, sodium 134, BUN 5, creatinine 0.73, WBC 8.3 Blood sugar is elevated to 46 Cardiology is following. Vascular surgery is planning for OR for wound closure in the next 2-3 days. 02/07/2020 Patient is currently lying in the bed comfortably. No acute distress. Wound VAC in place at the fasciotomy sites. Left foot pain and calf pain is controlled with medications. Patient has been afebrile. No leukocytosis. Vascular surgery is planning for wound closure in the next 1 to 2 days. No chest pain or shortness of breath. No nausea vomiting or abdominal pain or diarrhea. Active Medications Hydrocodone Bitart/Acetaminophen ([place] 5-325) 1 each PO Q4HR PRN PRN Reason: Pain Last Admin: 02/06/20 16:28 Dose: 1 each Documented by: Amlodipine Besylate (Norvasc) 10 mg PO DAILY [facility] Last Admin: 02/06/20 08:47 Dose: 10 mg Documented by: Atenolol (Tenormin) 25 mg PO BID [facility] Last Admin: 02/06/20 20:07 Dose: 25 mg Documented by: Gabapentin (Neurontin) 300 mg PO TID [facility] Last Admin: 02/06/20 22:22 Dose: 300 mg Documented by: Glimepiride (Amaryl) 2 mg PO DAILY [facility] Last Admin: 02/06/20 08:47 Dose: 2 mg Documented by: Heparin Sodium (Porcine) (Heparin) 0 unit IV PER PROTOCOL PRN; Protocol PRN Reason: Low PTT Last Admin: 02/05/20 00:23 Dose: 1,950 unit Documented by: Hydromorphone HCl (Dilaudid) 1 mg IVP Q2H PRN PRN Reason: Pain Last Admin: 02/05/20 22:53 Dose: 1 mg Documented by: Heparin Sodium/Sodium Chloride (25,000 unit/ Sodium Chloride) 250 mls @ 9.384 mls/hr IV .Q24H [facility]; Protocol Last Admin: 02/06/20 12:48 Dose: 14 units/kg/hr, 10.948 mls/hr Documented by: Sodium Chloride (Saline 0.9%) 1,000 mls @ 75 mls/hr IV .[id number] [facility] Last Admin: 02/06/20 16:54 Dose: 75 mls/hr Documented by: Insulin Aspart (Novolog) 0 unit SQ ACHS [facility]; Protocol Last Admin: 02/06/20 21:18 Dose: 7 unit Documented by: Insulin Aspart (Novolog) 5 unit SQ TID-W/MEALS [facility] Last Admin: 02/06/20 17:42 Dose: 5 unit Documented by: Insulin Detemir (Levemir) 15 unit SQ HS [facility] Last Admin: 02/06/20 20:07 Dose: 15 unit Documented by: Lisinopril (Zestril) 20 mg PO DAILY [facility] Last Admin: 02/06/20 08:47 Dose: 20 mg Documented by: Miscellaneous Information (Potassium Per Protocol) 1 each MISCELLANE DAILY PRN; Protocol PRN Reason: Per Protocol Naloxone HCl (Narcan) 0.2 mg IV Q2M PRN PRN Reason: Opioid Reversal Objective - Vital Signs Vital signs: Vital Signs Temp 96.4 F L 02/07/20 20:56 Pulse 64 02/07/20 20:56 Resp 16 02/07/20 20:56 BP 137/70 02/07/20 20:56 Pulse Ox 100 02/07/20 20:56 Intake & Output 02/07/20 02/07/20 02/08/20 06:59 18:59 06:59 Intake Total 150 238.301 8 Output Total 800 2400 450 Balance -650 -2161.699 -442 Weight 78.4 kg Intake: IV 150 .9 150 Intake, IV Titration 238.301 Amount Heparin Sod,Pork in 0.45% 238.301 NaCl 25,000 unit In 0.45 % NaCl 1 250ml.bag @ 12 UNITS/KG/HR 9.384 mls/hr IV .Q24H [facility] Rx#: [id number] Oral 8 Output: Urine 800 2400 450 Other: Voiding Method Urinal Urinal # Voids 1 - Exam PHYSICAL EXAMINATION: GENERAL: The patient is alert and oriented x3, not in any acute distress. Well developed, well nourished. HEENT: Pupils are round and equally reacting to light. EOMI. No scleral icterus. No conjunctival pallor. Normocephalic, atraumatic. No pharyngeal erythema. No thyromegaly. CARDIOVASCULAR: S1 and S2 present. No murmurs, rubs, or gallops. PULMONARY: Chest is clear to auscultation, no wheezing or crackles. ABDOMEN: Soft, nontender, nondistended, normoactive bowel sounds. No palpable organomegaly. MUSCULOSKELETAL: No joint swelling or deformity. EXTREMITIES: Dressing in place left anterior tibial region with wound vac at fasciotomy sites. Dressing is clean and dry. No erythema noted at the sites. Right groin access site with dressing in place, no swelling, bleeding or pain at the site.a. NEUROLOGICAL: Gross neurological examination did not reveal any focal deficits. SKIN: No rashes. - Labs CBC & Chem 7: 02/08/20 05:36 02/08/20 05:36 Labs: Abnormal Lab Results - Last 24 Hours (Table) 02/07/20 02/07/20 02/07/20 Range/Units 06:14 06:14 06:14 RBC 3.14 L (4.30-5.90) m/uL Hgb 9.7 L (13.0-17.5) gm/dL Hct 29.0 L (39.0-53.0) % APTT 45.6 H (22.0-30.0) sec Sodium 132 L (137-145) mmol/L BUN 8 L (9-20) mg/dL Glucose 193 H (74-99) mg/dL POC Glucose (mg/dL) (75-99) mg/dL Uric Acid (3.5-8.5) mg/dL 02/07/20 02/07/20 02/07/20 Range/Units 06:14 06:55 11:06 RBC (4.30-5.90) m/uL Hgb (13.0-17.5) gm/dL Hct (39.0-53.0) % APTT (22.0-30.0) sec Sodium (137-145) mmol/L BUN (9-20) mg/dL Glucose (74-99) mg/dL POC Glucose (mg/dL) 215 H 251 H (75-99) mg/dL Uric Acid 3.1 L (3.5-8.5) mg/dL 02/07/20 02/07/20 Range/Units 17:17 20:10 RBC (4.30-5.90) m/uL Hgb (13.0-17.5) gm/dL Hct (39.0-53.0) % APTT (22.0-30.0) sec Sodium (137-145) mmol/L BUN (9-20) mg/dL Glucose (74-99) mg/dL POC Glucose (mg/dL) 299 H 274 H (75-99) mg/dL Uric Acid (3.5-8.5) mg/dL Assessment and Plan Assessment: Left foot pain secondary to ischemia due to thrombosed left femoral-popliteal bypass graft. Status post catheterization from contralateral approach and TPA thrombolysis of thrombosis fem-pop bypass graft. Left lower extremity compartment syndrome status post 4 compartment fasciotomy Acute blood loss anemia secondary to thrombectomy procedure Peripheral vascular disease Acute kidney injury most likely prerenal improved now. Hypertension Hyperglycemia with uncontrolled diabetes type 2 insulin-dependent Hyperlipidemia History of DVT of the left lower extremity History of uvitis and glaucoma Previous history of smoking History of marijuana use Plan: Patient is status post TPA thrombolysis by vascular surgery. Continued with pain management. Patient is being continued on heparin drip. Continue with insulin dose and sliding scale. Titrate dose as needed. Continue with home blood pressure medications and follow up closely. Vascular surgery and nephrology is on board. Further recommendations based on the clinical course. PT/OT Time with Patient: Greater than 30
--- NOTE | 2020-02-09 01:10 | P.PN ---
Subjective Progress Note Date: 02/08/20 Principal diagnosis: Critical limb ischemia left lower extremity Status post previous revascularization Presumed compartment syndrome 54-year-old male with a known history of hypertension, diabetes type 2 uncontrolled insulin-dependent, peripheral vascular disease with history of fem- pop bypass graft and stent in 2019 came to ER with the complaints of left great toe pain worsening for the past 4 days. Patient also having cramps in his left leg for approximately last 2 weeks. Otherwise denied any complaints of chest pain or shortness of breath. No fever no chills. No cough or sputum production. No nausea vomiting or abdominal pain or diarrhea. Denied any recent illnesses. patient was seen by vascular surgery and was taken to operating room today due to thrombosed left femoral-popliteal bypass graft. Patient underwent catheterization of the left femoral artery from the contralateral approach and TPA lysis of thrombosed left femoral-popliteal bypass graft. Patient is currently being monitored in the MICU. Continued on TPA and heparin drip. Patient is still complaining of left foot pain and requesting pain medications. 02/04/2020 Patient is seen and evaluated in ICU; patient is status post left lower extremity 4 compartment fasciotomy for presumed compartment syndrome; patient underwent endovascular revascularization for acute lower extremity ischemia to left leg which was followed by increasing pain with passive movements and patient was decided to do benefit from fasciotomy Patient's vital signs are stable postoperatively; lab review shows slight drop in hemoglobin from 8.2 down from 9.2 yesterday 02/05/2020 Patient remains in ICU; reports some improvement in pain in left lower extremity; vital signs remained stable with a temp of 97.4, pulse 75, respiration 18 and blood pressure 136/69 with SpO2 of 95% Patient continues to have wound VAC at fasciotomy site Hemoglobin is 8.2 this morning after transfusion of 1 unit of packed RBCs yesterday; recommendations are to keep hemoglobin above 9 due to remote history of coronary artery disease Patient is status post fasciotomy for left lower extremity compartment syndrome; PT is on board to increase activity; tentative plan for OR for wound closure in next 3-4 days 02/06/2020 Patient is currently lying in the bed comfortably. Wound VAC is in place at the fasciotomy site, due to compartment syndrome. Otherwise patient is able to sit in the chair. Currently on oxygen on room air. Continued heparin drip. Laboratory data showed hemoglobin 10.1, sodium 134, BUN 5, creatinine 0.73, WBC 8.3 Blood sugar is elevated to 46 Cardiology is following. Vascular surgery is planning for OR for wound closure in the next 2-3 days. 02/07/2020 Patient is currently lying in the bed comfortably. No acute distress. Wound VAC in place at the fasciotomy sites. Left foot pain and calf pain is controlled with medications. Patient has been afebrile. No leukocytosis. Vascular surgery is planning for wound closure in the next 1 to 2 days. No chest pain or shortness of breath. No nausea vomiting or abdominal pain or diarrhea. 02/08/2020 Patient is currently lying in the bed comfortably. Left lower extremity fasciotomy wound is closed today. Left calf pain and foot pain is better. Patient denies any complaints of chest pain or shortness of breath. Vascular surgery is following. Arterial duplex showed. Impression: Suspect mild distal disease on the right. Could be vasospastic phenomenon. Suspect moderate to severe left femoral popliteal disease. Clinical correlation per vascular surgery.. Active Medications Hydrocodone Bitart/Acetaminophen ([place] 5-325) 1 each PO Q4HR PRN PRN Reason: Pain Last Admin: 02/06/20 16:28 Dose: 1 each Documented by: Amlodipine Besylate (Norvasc) 10 mg PO DAILY [facility] Last Admin: 02/06/20 08:47 Dose: 10 mg Documented by: Atenolol (Tenormin) 25 mg PO BID [facility] Last Admin: 02/06/20 20:07 Dose: 25 mg Documented by: Gabapentin (Neurontin) 300 mg PO TID [facility] Last Admin: 02/06/20 22:22 Dose: 300 mg Documented by: Glimepiride (Amaryl) 2 mg PO DAILY [facility] Last Admin: 02/06/20 08:47 Dose: 2 mg Documented by: Heparin Sodium (Porcine) (Heparin) 0 unit IV PER PROTOCOL PRN; Protocol PRN Reason: Low PTT Last Admin: 02/05/20 00:23 Dose: 1,950 unit Documented by: Hydromorphone HCl (Dilaudid) 1 mg IVP Q2H PRN PRN Reason: Pain Last Admin: 02/05/20 22:53 Dose: 1 mg Documented by: Heparin Sodium/Sodium Chloride (25,000 unit/ Sodium Chloride) 250 mls @ 9.384 mls/hr IV .Q24H [facility]; Protocol Last Admin: 02/06/20 12:48 Dose: 14 units/kg/hr, 10.948 mls/hr Documented by: Sodium Chloride (Saline 0.9%) 1,000 mls @ 75 mls/hr IV .[id number] [facility] Last Admin: 02/06/20 16:54 Dose: 75 mls/hr Documented by: Insulin Aspart (Novolog) 0 unit SQ ACHS [facility]; Protocol Last Admin: 02/06/20 21:18 Dose: 7 unit Documented by: Insulin Aspart (Novolog) 5 unit SQ TID-W/MEALS [facility] Last Admin: 02/06/20 17:42 Dose: 5 unit Documented by: Insulin Detemir (Levemir) 15 unit SQ HS [facility] Last Admin: 02/06/20 20:07 Dose: 15 unit Documented by: Lisinopril (Zestril) 20 mg PO DAILY [facility] Last Admin: 02/06/20 08:47 Dose: 20 mg Documented by: Miscellaneous Information (Potassium Per Protocol) 1 each MISCELLANE DAILY PRN; Protocol PRN Reason: Per Protocol Naloxone HCl (Narcan) 0.2 mg IV Q2M PRN PRN Reason: Opioid Reversal Objective - Vital Signs Vital signs: Vital Signs Temp 99.3 F 02/08/20 21:00 Pulse 66 02/08/20 21:00 Resp 16 02/08/20 21:00 BP 133/69 02/08/20 21:00 Pulse Ox 99 02/08/20 21:00 Intake & Output 02/08/20 02/08/20 02/09/20 06:59 18:59 06:59 Intake Total 718 440 Output Total 1450 255 Balance -732 185 Weight 78.4 kg Intake: IV 420 Intake, IV Titration 120 20 Amount Lactated Ringers 1,000 ml 120 20 @ 20 mls/hr IV .Q24H [facility] Rx#:[id number] Oral 598 Output: Urine 1450 250 Estimated Blood Loss 5 Other: Voiding Method Urinal Urinal - Exam PHYSICAL EXAMINATION: GENERAL: The patient is alert and oriented x3, not in any acute distress. Well developed, well nourished. HEENT: Pupils are round and equally reacting to light. EOMI. No scleral icterus. No conjunctival pallor. Normocephalic, atraumatic. No pharyngeal erythema. No thyromegaly. CARDIOVASCULAR: S1 and S2 present. No murmurs, rubs, or gallops. PULMONARY: Chest is clear to auscultation, no wheezing or crackles. ABDOMEN: Soft, nontender, nondistended, normoactive bowel sounds. No palpable organomegaly. MUSCULOSKELETAL: No joint swelling or deformity. EXTREMITIES: Dressing in place left anterior tibial Fasciotomy incisions sutured. Intact. . Right groin access site with dressing in place, no swelling, bleeding or pain at the site.a. NEUROLOGICAL: Gross neurological examination did not reveal any focal deficits. SKIN: No rashes. - Labs CBC & Chem 7: 02/08/20 05:36 02/08/20 05:36 Labs: Abnormal Lab Results - Last 24 Hours (Table) 02/08/20 02/08/20 02/08/20 Range/Units 05:36 05:36 05:36 RBC 3.30 L (4.30-5.90) m/uL Hgb 10.1 L (13.0-17.5) gm/dL Hct 30.8 L (39.0-53.0) % APTT 36.1 H (22.0-30.0) sec Sodium 132 L (137-145) mmol/L BUN 7 L (9-20) mg/dL Glucose 269 H (74-99) mg/dL POC Glucose (mg/dL) (75-99) mg/dL 02/08/20 02/08/20 02/08/20 Range/Units 07:05 10:57 13:02 RBC (4.30-5.90) m/uL Hgb (13.0-17.5) gm/dL Hct (39.0-53.0) % APTT (22.0-30.0) sec Sodium (137-145) mmol/L BUN (9-20) mg/dL Glucose (74-99) mg/dL POC Glucose (mg/dL) 301 H 276 H 241 H (75-99) mg/dL 02/08/20 02/08/20 Range/Units 17:11 20:03 RBC (4.30-5.90) m/uL Hgb (13.0-17.5) gm/dL Hct (39.0-53.0) % APTT (22.0-30.0) sec Sodium (137-145) mmol/L BUN (9-20) mg/dL Glucose (74-99) mg/dL POC Glucose (mg/dL) 445 H 385 H (75-99) mg/dL Assessment and Plan Assessment: Left foot pain secondary to ischemia due to thrombosed left femoral-popliteal bypass graft. Status post catheterization from contralateral approach and TPA thrombolysis of thrombosis fem-pop bypass graft. Left lower extremity compartment syndrome status post 4 compartment fasciotomy. Wound closure on 02/08/2020 Acute blood loss anemia secondary to thrombectomy procedure Peripheral vascular disease Acute kidney injury most likely prerenal improved now. Hypertension Hyperglycemia with uncontrolled diabetes type 2 insulin-dependent Hyperlipidemia History of DVT of the left lower extremity History of uvitis and glaucoma Previous history of smoking History of marijuana use Plan: Patient is status post TPA thrombolysis by vascular surgery. Fasciotomy wound is closed today. Continued with pain management. Patient was continued on heparin drip. started on Eliquis 5mg BID Continue with insulin dose and sliding scale. Titrate dose as needed. Continue with home blood pressure medications and follow up closely. Vascular surgery and nephrology is on board. Further recommendations based on the clinical course. PT/OT Time with Patient: Greater than 30
[2020-02-09] MEDS: HYDROmorphone 1 MG/ML 1 ML SYRINGE IVP PRN ×4 (06:22→23:19)
[2020-02-09 06:31] LABS: Basophils % (A) 0 %; Eosinophils # (A) 0.2 k/uL (0-0.7); Eosinophils % (A) 3 %; HCT 28.8 % (39.0-53.0); HGB 9.7 gm/dL (13.0-17.5); Lymphocytes # (A) 1.7 k/uL (1.0-4.8); Lymphocytes % (A) 20 %; MCH 31.1 pg (25.0-35.0); MCHC 33.8 g/dL (31.0-37.0); MCV 91.9 fL (80.0-100.0); Mean Platelet Volume 9.3; Monocytes # (A) 0.6 k/uL (0-1.0); Monocytes % (A) 8 %; Neutrophils # (A) 5.5 k/uL (1.3-7.7); Neutrophils % (A) 67 %; Platelet Count 240 k/uL (150-450); RBC 3.13 m/uL (4.30-5.90); RDW 13.9 % (11.5-15.5); WBC 8.3 k/uL (3.8-10.6)
[2020-02-09 06:44] LABS: African American GFR (CKD) >90 (>60 ml/min/1.73 sqM); Anion Gap 6 mmol/L; Blood Urea Nitrogen 10 mg/dL (9-20); Carbon Dioxide 26 mmol/L (22-30); Chloride 101 mmol/L (98-107); Glucose 241 mg/dL (74-99); Non-African American GFR(CKD) 88 (>60 ml/min/1.73 sqM); Sodium 133 mmol/L (137-145)
[2020-02-09 06:52] LABS: Glucose,Whole Blood 285 mg/dL (75-99)
[2020-02-09] MEDS: INSULIN ASPART (NovoLOG) 100 UNIT/ML VIAL SQ SCH ×7 (07:40→20:56)
[2020-02-09] MEDS: amLODIPine 10 MG TAB PO SCH (07:41)
[2020-02-09] MEDS: GLIMEPIRIDE 2 MG TAB PO SCH (07:41)
[2020-02-09] MEDS: ATENOLOL 25 MG TAB PO SCH ×2 (07:41→20:56)
[2020-02-09] MEDS: APIXABAN 5 MG TAB PO SCH ×2 (07:41→20:56)
[2020-02-09] MEDS: LISINOPRIL 20 MG TAB PO SCH ×2 (07:41→20:57)
[2020-02-09] MEDS: GABAPENTIN 300 MG CAP PO SCH ×3 (07:41→20:57)
[2020-02-09] MEDS: POLYETHYLENE GLYCOL 3350 17 GM POWD.PACK PO PRN (09:02)
[2020-02-09] MEDS: SENNOSIDES-DOCUSATE SODIUM 1 EACH TAB PO PRN (09:02)
[2020-02-09 11:10] LABS: Glucose,Whole Blood 259 mg/dL (75-99)
--- NOTE | 2020-02-09 13:09 | P.PN ---
Subjective Progress Note Date: 02/09/20 Patient is evaluated today status post closure of left lower extremity fasciotomy wounds. Patient's only complaint is that of foot pain on the left. He was evaluated by physical therapy to a limited degree earlier today. He will be further evaluated by physical therapy later this afternoon. Physical examination revealed toes of the left foot to be movable with slight mottling of the toes identified. There is no open wound of the left foot. The foot itself is otherwise normal in temperature to touch. His mid foot and heel areas are normal in sensation and it appears the patient would be able to weight-bear on the left heel. I discussed with the patient that his foot pain is due to a combination of diabetic and ischemic neuropathy and that his current medical regimen is appropriate. We will try to control his pain a bit better and I will increase his Neurontin dose. I also discussed with the patient the need for final physical therapy recommendations. Once issues of outpatient needs are met discharge arrangements will be made. Objective - Vital Signs Vital signs: Vital Signs Temp 99.4 F 02/09/20 11:52 Pulse 62 02/09/20 11:52 Resp 17 02/09/20 11:52 BP 136/78 02/09/20 11:52 Pulse Ox 99 02/09/20 11:52 Intake & Output 02/08/20 02/09/20 02/09/20 18:59 06:59 18:59 Intake Total 440 240 Output Total 255 2000 Balance 185 -1760 Weight 78.4 kg Intake: IV 420 Intake, IV Titration 20 240 Amount Lactated Ringers 1,000 ml 20 240 @ 20 mls/hr IV .Q24H [facility] Rx#:[id number] Output: Urine 250 2000 Estimated Blood Loss 5 Other: Voiding Method Urinal Urinal Urinal - Labs CBC & Chem 7: 02/09/20 06:15 02/09/20 06:15 Labs: Abnormal Lab Results - Last 24 Hours (Table) 02/08/20 02/08/20 02/09/20 Range/Units 17:11 20:03 06:15 RBC 3.13 L (4.30-5.90) m/uL Hgb 9.7 L (13.0-17.5) gm/dL Hct 28.8 L (39.0-53.0) % Sodium (137-145) mmol/L Glucose (74-99) mg/dL POC Glucose (mg/dL) 445 H 385 H (75-99) mg/dL 02/09/20 02/09/20 02/09/20 Range/Units 06:15 06:51 11:09 RBC (4.30-5.90) m/uL Hgb (13.0-17.5) gm/dL Hct (39.0-53.0) % Sodium 133 L (137-145) mmol/L Glucose 241 H (74-99) mg/dL POC Glucose (mg/dL) 285 H 259 H (75-99) mg/dL
[2020-02-09 16:56] LABS: Glucose,Whole Blood 279 mg/dL (75-99)
[2020-02-09] MEDS: HYDROcodone/APAP 5-325MG 1 EACH TAB PO PRN (19:38)
[2020-02-09 19:56] LABS: Glucose,Whole Blood 188 mg/dL (75-99)
[2020-02-09] MEDS ORDERED: INSULIN DETEMIR (LEVEMIR) 100 UNIT/ML SYR SQ SCH (21:00)
[2020-02-09] MEDS: LACTATED RINGERS 1,000 ML IV SCH ×2 (21:46)
--- NOTE | 2020-02-10 01:12 | P.PN ---
Subjective Progress Note Date: 02/09/20 Principal diagnosis: Critical limb ischemia left lower extremity Status post previous revascularization Presumed compartment syndrome 54-year-old male with a known history of hypertension, diabetes type 2 uncontrolled insulin-dependent, peripheral vascular disease with history of fem- pop bypass graft and stent in 2019 came to ER with the complaints of left great toe pain worsening for the past 4 days. Patient also having cramps in his left leg for approximately last 2 weeks. Otherwise denied any complaints of chest pain or shortness of breath. No fever no chills. No cough or sputum production. No nausea vomiting or abdominal pain or diarrhea. Denied any recent illnesses. patient was seen by vascular surgery and was taken to operating room today due to thrombosed left femoral-popliteal bypass graft. Patient underwent catheterization of the left femoral artery from the contralateral approach and TPA lysis of thrombosed left femoral-popliteal bypass graft. Patient is currently being monitored in the MICU. Continued on TPA and heparin drip. Patient is still complaining of left foot pain and requesting pain medications. 02/04/2020 Patient is seen and evaluated in ICU; patient is status post left lower extremity 4 compartment fasciotomy for presumed compartment syndrome; patient underwent endovascular revascularization for acute lower extremity ischemia to left leg which was followed by increasing pain with passive movements and patient was decided to do benefit from fasciotomy Patient's vital signs are stable postoperatively; lab review shows slight drop in hemoglobin from 8.2 down from 9.2 yesterday 02/05/2020 Patient remains in ICU; reports some improvement in pain in left lower extremity; vital signs remained stable with a temp of 97.4, pulse 75, respiration 18 and blood pressure 136/69 with SpO2 of 95% Patient continues to have wound VAC at fasciotomy site Hemoglobin is 8.2 this morning after transfusion of 1 unit of packed RBCs yesterday; recommendations are to keep hemoglobin above 9 due to remote history of coronary artery disease Patient is status post fasciotomy for left lower extremity compartment syndrome; PT is on board to increase activity; tentative plan for OR for wound closure in next 3-4 days 02/06/2020 Patient is currently lying in the bed comfortably. Wound VAC is in place at the fasciotomy site, due to compartment syndrome. Otherwise patient is able to sit in the chair. Currently on oxygen on room air. Continued heparin drip. Laboratory data showed hemoglobin 10.1, sodium 134, BUN 5, creatinine 0.73, WBC 8.3 Blood sugar is elevated to 46 Cardiology is following. Vascular surgery is planning for OR for wound closure in the next 2-3 days. 02/07/2020 Patient is currently lying in the bed comfortably. No acute distress. Wound VAC in place at the fasciotomy sites. Left foot pain and calf pain is controlled with medications. Patient has been afebrile. No leukocytosis. Vascular surgery is planning for wound closure in the next 1 to 2 days. No chest pain or shortness of breath. No nausea vomiting or abdominal pain or diarrhea. 02/08/2020 Patient is currently lying in the bed comfortably. Left lower extremity fasciotomy wound is closed today. Left calf pain and foot pain is better. Patient denies any complaints of chest pain or shortness of breath. Vascular surgery is following. Arterial duplex showed. Impression: Suspect mild distal disease on the right. Could be vasospastic phenomenon. Suspect moderate to severe left femoral popliteal disease. Clinical correlation per vascular surgery.. 02/09/2020 Patient is currently ambulate in the room with minimal weightbearing on the left leg. Fasciotomy wound is intact and healing well. Denied any complaints of paresthesias. Still complains of pain but is controlled with medications. Encourage with ambulation and PT OT was consulted. Vascular surgery is on board. Anticipate discharge once cleared by surgery. Patient has been afebrile. No leukocytosis. Hemoglobin 9.7. Blood sugar is still elevated. will increase the dose of Lantus to 24 units and aspart 8 units 3 times daily AC. Continue with insulin sliding scale. Active Medications Hydrocodone Bitart/Acetaminophen ([place] 5-325) 1 each PO Q4HR PRN PRN Reason: Pain Last Admin: 02/06/20 16:28 Dose: 1 each Documented by: Amlodipine Besylate (Norvasc) 10 mg PO DAILY [facility] Last Admin: 02/06/20 08:47 Dose: 10 mg Documented by: Atenolol (Tenormin) 25 mg PO BID [facility] Last Admin: 02/06/20 20:07 Dose: 25 mg Documented by: Gabapentin (Neurontin) 300 mg PO TID [facility] Last Admin: 02/06/20 22:22 Dose: 300 mg Documented by: Glimepiride (Amaryl) 2 mg PO DAILY [facility] Last Admin: 02/06/20 08:47 Dose: 2 mg Documented by: Heparin Sodium (Porcine) (Heparin) 0 unit IV PER PROTOCOL PRN; Protocol PRN Reason: Low PTT Last Admin: 02/05/20 00:23 Dose: 1,950 unit Documented by: Hydromorphone HCl (Dilaudid) 1 mg IVP Q2H PRN PRN Reason: Pain Last Admin: 02/05/20 22:53 Dose: 1 mg Documented by: Heparin Sodium/Sodium Chloride (25,000 unit/ Sodium Chloride) 250 mls @ 9.384 mls/hr IV .Q24H [facility]; Protocol Last Admin: 02/06/20 12:48 Dose: 14 units/kg/hr, 10.948 mls/hr Documented by: Sodium Chloride (Saline 0.9%) 1,000 mls @ 75 mls/hr IV .[id number] [facility] Last Admin: 02/06/20 16:54 Dose: 75 mls/hr Documented by: Insulin Aspart (Novolog) 0 unit SQ ACHS [facility]; Protocol Last Admin: 02/06/20 21:18 Dose: 7 unit Documented by: Insulin Aspart (Novolog) 5 unit SQ TID-W/MEALS [facility] Last Admin: 02/06/20 17:42 Dose: 5 unit Documented by: Insulin Detemir (Levemir) 15 unit SQ HS [facility] Last Admin: 02/06/20 20:07 Dose: 15 unit Documented by: Lisinopril (Zestril) 20 mg PO DAILY [facility] Last Admin: 02/06/20 08:47 Dose: 20 mg Documented by: Miscellaneous Information (Potassium Per Protocol) 1 each MISCELLANE DAILY PRN; Protocol PRN Reason: Per Protocol Naloxone HCl (Narcan) 0.2 mg IV Q2M PRN PRN Reason: Opioid Reversal Objective - Vital Signs Vital signs: Vital Signs Temp 98.3 F 02/09/20 21:00 Pulse 69 02/09/20 21:00 Resp 18 02/09/20 21:00 BP 146/78 02/09/20 21:00 Pulse Ox 99 02/09/20 21:00 Intake & Output 02/09/20 02/09/20 02/10/20 06:59 18:59 06:59 Intake Total 240 120 Output Total 2000 Balance -1760 120 Intake: Intake, IV Titration 240 120 Amount Lactated Ringers 1,000 ml 240 120 @ 20 mls/hr IV .Q24H [facility] Rx#:[id number] Output: Urine 2000 Other: Voiding Method Urinal Urinal - Exam PHYSICAL EXAMINATION: GENERAL: The patient is alert and oriented x3, not in any acute distress. Well developed, well nourished. HEENT: Pupils are round and equally reacting to light. EOMI. No scleral icterus. No conjunctival pallor. Normocephalic, atraumatic. No pharyngeal erythema. No thyromegaly. CARDIOVASCULAR: S1 and S2 present. No murmurs, rubs, or gallops. PULMONARY: Chest is clear to auscultation, no wheezing or crackles. ABDOMEN: Soft, nontender, nondistended, normoactive bowel sounds. No palpable organomegaly. MUSCULOSKELETAL: No joint swelling or deformity. EXTREMITIES: Dressing in place left anterior tibial Fasciotomy incisions sutured. Intact. . Right groin access site with dressing in place, no swelling, bleeding or pain at the site.a. NEUROLOGICAL: Gross neurological examination did not reveal any focal deficits. SKIN: No rashes. - Labs CBC & Chem 7: 02/09/20 06:15 02/09/20 06:15 Labs: Abnormal Lab Results - Last 24 Hours (Table) 02/09/20 02/09/20 02/09/20 Range/Units 06:15 06:15 06:51 RBC 3.13 L (4.30-5.90) m/uL Hgb 9.7 L (13.0-17.5) gm/dL Hct 28.8 L (39.0-53.0) % Sodium 133 L (137-145) mmol/L Glucose 241 H (74-99) mg/dL POC Glucose (mg/dL) 285 H (75-99) mg/dL 02/09/20 02/09/20 02/09/20 Range/Units 11:09 16:55 19:37 RBC (4.30-5.90) m/uL Hgb (13.0-17.5) gm/dL Hct (39.0-53.0) % Sodium (137-145) mmol/L Glucose (74-99) mg/dL POC Glucose (mg/dL) 259 H 279 H 188 H (75-99) mg/dL Assessment and Plan Assessment: Left foot pain secondary to ischemia due to thrombosed left femoral-popliteal bypass graft. Status post catheterization from contralateral approach and TPA thrombolysis of thrombosis fem-pop bypass graft. Left lower extremity compartment syndrome status post 4 compartment fasciotomy. Wound closure on 02/08/2020 Acute blood loss anemia secondary to thrombectomy procedure Peripheral vascular disease Acute kidney injury most likely prerenal improved now. Hypertension Hyperglycemia with uncontrolled diabetes type 2 insulin-dependent Hyperlipidemia History of DVT of the left lower extremity History of uvitis and glaucoma Previous history of smoking History of marijuana use Plan: Patient is status post TPA thrombolysis by vascular surgery. Fasciotomy wound is closed ... Continued with pain management. Patient was continued on heparin drip. started on Eliquis 5mg BID Continue with insulin dose and sliding scale. Titrate dose as needed. Continue with home blood pressure medications and follow up closely. Vascular surgery and nephrology is on board. Further recommendations based on the clinical course. PT/OT Time with Patient: Greater than 30
[2020-02-10 07:02] LABS: Glucose,Whole Blood 300 mg/dL (75-99)
[2020-02-10] MEDS: GABAPENTIN 300 MG CAP PO SCH (08:05)
[2020-02-10] MEDS: LISINOPRIL 20 MG TAB PO SCH (08:05)
[2020-02-10] MEDS: APIXABAN 5 MG TAB PO SCH (08:05)
[2020-02-10] MEDS: GLIMEPIRIDE 2 MG TAB PO SCH (08:05)
[2020-02-10] MEDS: amLODIPine 10 MG TAB PO SCH (08:05)
[2020-02-10] MEDS: ATENOLOL 25 MG TAB PO SCH (08:05)
[2020-02-10] MEDS: INSULIN ASPART (NovoLOG) 100 UNIT/ML VIAL SQ SCH ×3 (08:06→12:25)
[2020-02-10 11:46] LABS: Glucose,Whole Blood 266 mg/dL (75-99)
[2020-02-10 11:51] VITALS: BP 119/70; PULSE 67; RESP 17; TEMP 98.5
[2020-02-10] MEDS: HYDROcodone/APAP 5-325MG 1 EACH TAB PO PRN (12:23)
[2020-02-10] MEDS ORDERED: INSULIN ASPART (NovoLOG) 100 UNIT/ML VIAL SQ SCH (12:30)
[2020-02-10] MEDS ORDERED: NA PHOS,M-B/NA PHOS,DI-BA 133 ML ENEMA RECTAL ONE (12:31)
[2020-02-10] MEDS ORDERED: INSULIN DETEMIR (LEVEMIR) 100 UNIT/ML SYR SQ SCH (21:00)
--- NOTE | 2020-02-14 09:25 | CDI ---
Documentation Clarification Form Date: 02/14/20 From: Tanna Gutierrez CCS Phone: If you have a question about this query, please contact Melinda Nicholas, Unit Coordinator at [phone] between 8am and 5pm. Admit Date: 02/01/20 Discharge Date:02/10/20 Patient Name: Benny Ladd Visit Number: [id number] ATTENTION: The Clinical Documentation Specialists (CDI) and [facility] Coding Staff appreciate your assistance in clarifying documentation. Please respond to the clarification below the line at the bottom and electronically sign. The CDI & [facility] Coding staff will review the response and follow-up if needed. Please note: Queries are made part of the Legal Health Record. If you have any questions, please contact the author of this message via ITS. Dear Dr. Hess, Hypotension is documented in the Procedure notes and PNs. 02/03 Procedure documents: There was a episode of hypotension and nausea which was corrected with Zofran and a fluid bolus. PNs 02/04 and 02/06 document: Acute kidney injury, acute tubular necrosis, currently improved, mainly associated with hypotension. History/Risk Factors: DM w/ hyperglycemia, PAD, HTN, ALBERT, TPA administration Clinical Indicators: Acute kidney injury, acute tubular necrosis, currently improved, mainly associated with hypotension. Treatment: Zofran and a fluid bolus. In your professional opinion, can you please specify the etiology of the hypotension if known? Iatrogenic Hypotension Idiopathic Hypotension Drug Induced Hypotension Postoperative Hypotension expected outcome Postoperative Hypotension unexpected outcome Other Condition, please specify Unable to determine vasovagal reaction during procedure MTDD
== END 2020-02-10 16:06 | disposition home health service (06) | DRG 270 ==
LOC: EC 15:24 → 3SCARD 18:04 → 2SICU 02-02 10:45 → 5NMEDONC 02-06 14:37
PROVIDERS: ADMIT Hospitalist; ATTEND Hospitalist
PROC: 3E05317 Introduction of Other Thrombolytic into Peripheral Artery, Percutaneous Approach (ICD-10-PCS; 2020-02-01)
PROC: B41G1ZZ Fluoroscopy of Left Lower Extremity Arteries using Low Osmolar Contrast (ICD-10-PCS; 2020-02-01)
PROC: 04CN3ZZ Extirpation of Matter from Left Popliteal Artery, Percutaneous Approach (ICD-10-PCS; 2020-02-03 10:30)
PROC: 3E05317 Introduction of Other Thrombolytic into Peripheral Artery, Percutaneous Approach (ICD-10-PCS; 2020-02-03 10:30)
PROC: 04CQ3ZZ Extirpation of Matter from Left Anterior Tibial Artery, Percutaneous Approach (ICD-10-PCS; 2020-02-03 10:30)
PROC: 0KNT0ZZ Release Left Lower Leg Muscle, Open Approach (ICD-10-PCS; 2020-02-04)
PROC: B41G1ZZ Fluoroscopy of Left Lower Extremity Arteries using Low Osmolar Contrast (ICD-10-PCS; 2020-02-04)
PROC: 30233N1 Transfusion of Nonautologous Red Blood Cells into Peripheral Vein, Percutaneous Approach (ICD-10-PCS; 2020-02-04)
PROC: B41F1ZZ Fluoroscopy of Right Lower Extremity Arteries using Low Osmolar Contrast (ICD-10-PCS; 2020-02-04)
PROC: 047N3DZ Dilation of Left Popliteal Artery with Intraluminal Device, Percutaneous Approach (ICD-10-PCS; principal; 2020-02-04 08:00)
PROC: 0JQP3ZZ Repair Left Lower Leg Subcutaneous Tissue and Fascia, Percutaneous Approach (ICD-10-PCS; 2020-02-08)
DX: T82.868A Thrombosis due to vascular prosthetic devices, implants and grafts, initial encounter (principal); N17.0 Acute kidney failure with tubular necrosis; M79.A22 Nontraumatic compartment syndrome of left lower extremity; E87.1 Hypo-osmolality and hyponatremia; D62 Acute posthemorrhagic anemia; Z11.59 Encounter for screening for other viral diseases; I95.89 Other hypotension; E11.51 Type 2 diabetes mellitus with diabetic peripheral angiopathy without gangrene; E11.42 Type 2 diabetes mellitus with diabetic polyneuropathy; E11.40 Type 2 diabetes mellitus with diabetic neuropathy, unspecified; I70.202 Unspecified atherosclerosis of native arteries of extremities, left leg; Z79.4 Long term (current) use of insulin; E11.65 Type 2 diabetes mellitus with hyperglycemia; I10 Essential (primary) hypertension; E78.5 Hyperlipidemia, unspecified; H40.9 Unspecified glaucoma; I25.10 Atherosclerotic heart disease of native coronary artery without angina pectoris; Y83.2 Surgical operation with anastomosis, bypass or graft as the cause of abnormal reaction of the patient, or of later complication, without mention of misadventure at the time of the procedure; I25.2 Old myocardial infarction; Z71.3 Dietary counseling and surveillance; Z79.899 Other long term (current) drug therapy; Z79.82 Long term (current) use of aspirin; Z79.01 Long term (current) use of anticoagulants; Z79.02 Long term (current) use of antithrombotics/antiplatelets; Z86.718 Personal history of other venous thrombosis and embolism; Z98.890 Other specified postprocedural states; Z87.891 Personal history of nicotine dependence; Z95.820 Peripheral vascular angioplasty status with implants and grafts; Z88.6 Allergy status to analgesic agent; Z88.8 Allergy status to other drugs, medicaments and biological substances; Z84.1 Family history of disorders of kidney and ureter
CPT/HCPCS: 36247; 36415; 37184; 37211; 37213; 37214; 37226; 37228; 75710; 76937; 80048; 80053; 81001; 83605; 84550; 85025; 85027; 85384; 85610; 85730; 86850; 86900; 86901; 86920; 87635; 93005; 93922; 93923; 96365; 96375; 96376; 99285

== ENCOUNTER 2020-02-19 19:03 | Inpatient (IN) | payer MEDICARE, OTHER ==
[2020-02-19] MEDS ORDERED: SODIUM CHLORIDE 0.9% 1,000 ML IV ONE (19:47)
[2020-02-19] MEDS ORDERED: SODIUM CHLORIDE 0.9% 500 ML 500 ML IV ONE ×2 (19:47→21:28)
[2020-02-19] MEDS ORDERED: HYDROmorphone 1 MG/ML 1 ML SYRINGE IVP STA (19:54)
[2020-02-19] MEDS ORDERED: ACETAMINOPHEN TAB 325 MG TAB PO PRN (20:00)
[2020-02-19] MEDS ORDERED: NALOXONE 0.4 MG/ML 1 ML VIAL IV PRN (20:00)
[2020-02-19] MEDS ORDERED: VANCOMYCIN IV PER PHARMACY 1 EACH MISC MISCELLANE PRN (20:01)
[2020-02-19] MEDS ORDERED: PIPERACILLIN-TAZOBACTAM 3.375 GM in SODIUM CHLORIDE 0.9% 100 ML IVPB STA (20:01)
--- NOTE | 2020-02-19 20:02 | ED ---
Extremity Problem HPI - General Source: patient Mode of arrival: wheelchair Limitations: physical limitation <Whitley Boggs - Last Filed: 02/19/20 21:28> <SamyElif Martín - Last Filed: 02/21/20 23:50> - General Chief complaint: Extremity Problem,Nontraumatic Stated complaint: L Leg Pain Revisit Time Seen by Provider: 02/19/20 19:15 - History of Present Illness Initial comments: 54-year-old male presenting today for chief complaint of left leg pain. Patient states he has had left leg redness and swelling for the past 2 days he states he had a surgery to "clean out the arteries" last thursday, document fem-pop revascularization with stent and post operative complication of suspected compartment syndrome with subseqent fasciotomy. Patient states that his pain improved after the fasciotomy however for the past two days noticed increasing pain, redness and drainage from the medial lower leg sutures. Patietn states area is warm, Denies noticing fevers. Patient denies additional complaints. Doppler obtained revealing strong posterior tibial and dorsalis pedis pulses. (Whitley Boggs) - Related Data Home Medications Medication Instructions Recorded Confirmed Atenolol 25 mg PO BID 09/11/15 02/19/20 Lisinopril [Zestril] 20 mg PO DAILY 09/11/15 02/19/20 amLODIPine [Norvasc] 10 mg PO DAILY 09/11/15 02/19/20 Aspirin [Adult Low Dose Aspirin [facility]] 81 mg PO DAILY 01/21/19 02/19/20 Glimepiride [Amaryl] 2 mg PO DAILY 02/01/20 02/19/20 Simvastatin [Zocor] 20 mg PO HS 02/01/20 02/19/20 HYDROcodone/APAP 5-325MG [[place] 1 tab PO Q6HR PRN 02/19/20 02/19/20 5-325] Sennosides-Docusate Sodium 1 tab PO BID PRN 02/19/20 02/19/20 [Senokot-S] Previous Rx's Medication Instructions Recorded Apixaban [Eliquis] 5 mg PO BID #60 tab 02/10/20 Gabapentin [Neurontin] 300 mg PO TID #90 cap 02/10/20 INSULIN ASPART (NovoLOG) [NovoLOG 8 unit SQ TID-W/MEALS #1 vial 02/10/20 (formulary)] Insulin Detemir (Levemir) [Levemir] 24 unit SQ HS #1 syr 02/10/20 Allergies Allergy/AdvReac Type Severity Reaction Status Date / Time atorvastatin [From Lipitor] Allergy Swelling Verified 02/19/20 21:22 ibuprofen Allergy Swelling Verified 02/19/20 21:22 pregabalin [From Lyrica] Allergy Swelling Verified 02/19/20 21:22 Review of Systems ROS Other: All systems not noted in ROS Statement are negative. <Whitley Boggs - Last Filed: 02/19/20 21:28> ROS Other: All systems not noted in ROS Statement are negative. <Elif Pablo - Last Filed: 02/21/20 23:50> ROS Statement: Those systems with pertinent positive or pertinent negative responses have been documented in the HPI. Past Medical History Past Medical History: Diabetes Mellitus, Hyperlipidemia, Hypertension, Vascular Disorder Additional Past Medical History / Comment(s): uvitis glaucoma,PVD, dvt to lower left leg Last Myocardial Infarction Date:: 2005 History of Any Multi-Drug Resistant Organisms: None Reported Past Surgical History: Hernia Repair, Orthopedic Surgery Additional Past Surgical History / Comment(s): aortgram w/ runnoff,eye surg implant , bilateral knee, vein Past Anesthesia/Blood Transfusion Reactions: No Reported Reaction Additional Past Anesthesia/Blood Transfusion Reaction / Comment(s): no hx blood transfusion Past Psychological History: No Psychological Hx Reported Smoking Status: Former smoker Past Alcohol Use History: Rare Past Drug Use History: Marijuana - Past Family History Mother History Unknown: Yes <Whitley Boggs - Last Filed: 02/19/20 21:28> General Exam Limitations: physical limitation <Whitley Boggs - Last Filed: 02/19/20 21:28> - General Exam Comments Initial Comments: General: The patient is awake and alert, in no distress Eye: +3mm pupils are equal, round and reactive to light, extra-ocular movements are intact. No nystagmus. There is normal conjunctiva bilaterally. No signs of icterus. Ears, nose, mouth and throat: There are moist mucous membranes and no oral lesions. Neck: The neck is supple, there is no tenderness or JVD. Cardiovascular: There is a regular rate and rhythm. No murmur, rub or gallop is appreciated. Respiratory: Lungs are clear to auscultation, respirations are non-labored, breath sounds are equal. No wheezes, stridor, rales, or rhonchi. Musculoskeletal: Normal ROM, no tenderness. Strength 5/5. Sensation intact. DP/PT pulses obtained by doppler secondary to swelling/pain strong pulses audible Neurological: A&O x 3. CN II-XII intact grossly, There are no obvious motor or sensory deficits. Coordination appears grossly intact. Speech is normal. Skin: Skin is warm and dry and no rashes. Two large linear incision with sutures 10 inches in length distal 2 sutures appear to have broken there is serosanguineous fluid draining there is diffuse circumferential erythema of the left lower extremity no drainage from the lateral incision. Compartments are soft and compressible. Psychiatric: Cooperative, appropriate mood & affect, normal judgment. (Whitley Boggs) Course Vital Signs 02/19/20 02/19/20 02/19/20 19:07 20:10 21:07 Temperature 99.3 F 99.1 F 98.6 F Pulse Rate 86 74 Respiratory 18 18 Rate Blood Pressure 154/81 156/78 O2 Sat by Pulse 100 100 Oximetry Medical Decision Making - Lab Data Result diagrams: 02/19/20 21:00 02/19/20 21:00 <Whitley Boggs - Last Filed: 02/19/20 21:28> - Lab Data Result diagrams: 02/19/20 21:00 02/21/20 07:10 <Elif Pablo - Last Filed: 02/21/20 23:50> - Medical Decision Making Emergency room PRESENTED for chief complaint of left leg pain and redness drainage. Patient had a recent femoral popliteal revascularization procedure with a competition of suspect a compartment syndrome with subsequent fasciotomy. Patient has to 10 inch linear incisions on the medial and lateral aspect of the left lower leg. The medial incision is draining serosanguineous fluid there is diffuse from central swelling consistent with a cellulitis. The parents are soft and compressible there is no crepitus appreciated the skin there is no bullae or vesicular lesions noted. Dr. Garnett is aware of the complication. Patient will be admitted for IV antibiotics given extend of cellulitis. Agreeable to admission. (Whitley Boggs) I was available for consultation in the emergency department. The history and physical exam were done by the midlevel provider. I was consulted for this patients care. I reviewed the case with the midlevel provider and based on their presentation of the patient, I agree with the assessment, medical decision making and plan of care as documented. Case was discussed with Dr. Myers who accepted admission. Chart was dictated using [employer] dictation software. Attempts were made to correct any dictation errors however some typographical errors may persist. Patient was seen during a national state of emergency due to the Covid-19 pandemic. (Elif Pablo) Disposition Is patient prescribed a controlled substance at d/c from ED?: No Time of Disposition: 20:02 Decision to Admit Reason: Admit from EC Decision Date: 02/19/20 Decision Time: 20:02 <Whitley Boggs - Last Filed: 02/19/20 21:28> <Elif Pablo - Last Filed: 02/21/20 23:50> Clinical Impression: Post-operative infection, Cellulitis Disposition: ADMITTED IP TO THIS HOSP Condition: Stable
[2020-02-19] MEDS ORDERED: VANCOMYCIN 1,500 MG in SODIUM CHLORIDE 0.9% 250 ML IVPB STA (20:05)
--- NOTE | 2020-02-19 20:44 | XR ---
EXAMINATION TYPE: XR tibia fibula LT DATE OF EXAM: 02/19/2020 COMPARISON: NONE HISTORY: Postop pain redness and swelling TECHNIQUE: 2 views FINDINGS: There is some spurring at the tibial tubercle. I see no fracture nor dislocation. There is no evidence of focal bone destruction. Ankle joint and knee joint appear intact. IMPRESSION: No acute abnormality of the left tibia and fibula.
[2020-02-19] MEDS: SODIUM CHLORIDE 0.9% 1,000 ML IV SCH ×2 (21:06→21:36)
[2020-02-19 21:12] LABS: Basophils % (A) 1 %; Eosinophils # (A) 0.2 k/uL (0-0.7); Eosinophils % (A) 3 %; HCT 32.6 % (39.0-53.0); HGB 10.6 gm/dL (13.0-17.5); Hypochromasia Slight; Lymphocytes # (A) 2.2 k/uL (1.0-4.8); Lymphocytes % (A) 25 %; MCH 30.1 pg (25.0-35.0); MCHC 32.4 g/dL (31.0-37.0); MCV 93.1 fL (80.0-100.0); Mean Platelet Volume 7.3; Monocytes # (A) 0.5 k/uL (0-1.0); Monocytes % (A) 5 %; Neutrophils # (A) 5.7 k/uL (1.3-7.7); Neutrophils % (A) 65 %; Platelet Count 444 k/uL (150-450); RBC 3.51 m/uL (4.30-5.90); RDW 12.9 % (11.5-15.5); WBC 8.7 k/uL (3.8-10.6)
[2020-02-19 21:21] LABS: Albumin 3.9 g/dL (3.5-5.0); Calcium 9.8 mg/dL (8.4-10.2); Potassium 4.8 mmol/L (3.5-5.1); Total Bilirubin 0.4 mg/dL (0.2-1.3); Total Protein 7.1 g/dL (6.3-8.2)
[2020-02-19] MEDS ORDERED: INSULIN REGULAR 100 UNIT/ML VIAL SQ ONE (21:28)
[2020-02-19 21:29] LABS: INR 0.9 (<1.2); Prothrombin Time 9.5 sec (9.0-12.0)
[2020-02-19 21:34] LABS: Partial Thromboplastin Time 21.1 sec (22.0-30.0)
[2020-02-19] MEDS: HYDROmorphone 1 MG/ML 1 ML SYRINGE IVP PRN (23:21)
[2020-02-20] MEDS: ATENOLOL 25 MG TAB PO SCH ×3 (01:22→21:03)
[2020-02-20] MEDS: INSULIN DETEMIR (LEVEMIR) 100 UNIT/ML SYR SQ SCH ×2 (01:22→21:04)
[2020-02-20] MEDS: GABAPENTIN 300 MG CAP PO SCH ×4 (01:22→21:03)
[2020-02-20] MEDS: SIMVASTATIN 20 MG PO SCH ×2 (01:30→21:07)
[2020-02-20] MEDS: HYDROmorphone 1 MG/ML 1 ML SYRINGE IVP PRN ×3 (02:03→14:06)
[2020-02-20] MEDS: SODIUM CHLORIDE 0.9% 1,000 ML IV SCH ×3 (04:10→23:13)
[2020-02-20 07:16] LABS: Glucose,Whole Blood 416 mg/dL (75-99)
[2020-02-20] MEDS: INSULIN ASPART (NovoLOG) 100 UNIT/ML VIAL SQ SCH ×6 (07:22→21:04)
[2020-02-20] MEDS: VANCOMYCIN 1,250 MG in SODIUM CHLORIDE 0.9% 250 ML IVPB SCH ×2 (08:57→22:48)
[2020-02-20] MEDS ORDERED: SENNOSIDES-DOCUSATE SODIUM 1 EACH TAB PO PRN (11:11)
[2020-02-20] MEDS ORDERED: PIPERACILLIN-TAZOBACTAM 3.375 GM in SODIUM CHLORIDE 0.9% 100 ML IVPB SCH (11:15)
--- NOTE | 2020-02-20 11:23 | US ---
EXAMINATION TYPE: US venous doppler duplex LE LT DATE OF EXAM: 02/20/2020 11:06 AM COMPARISON: NONE CLINICAL HISTORY: 54-year-old male LLE pain and edema. Left leg pain, history of DVT SIDE PERFORMED: left TECHNIQUE: The lower extremity deep venous system is examined utilizing real time linear array sonog dago with graded compression, doppler sonography and color-flow sonography. FINDINGS: VESSELS IMAGED: External Iliac Vein (EIV) Common Femoral Vein Deep Femoral Vein Greater Saphenous Vein * Femoral Vein Popliteal Vein Small Saphenous Vein * Proximal Calf Veins (* superficial vessels) Left Leg: *Positive for DVT, thready flow with incomplete compression left upper and mid popliteal v ein IMPRESSION: Exam positive for some nonocclusive DVT involving the upper and mid popliteal vein.
--- NOTE | 2020-02-20 12:29 | P.HPIM ---
History of Present Illness This is a 54-year-old male came in with comments of severe leg pain swelling no fever, patient had a recent femoral-popliteal bypass which was complicated by compartment syndrome subsequently Underwent fasciotomy was subsequently sent home and patient started having increased pain for last 2-3 days along with the redness of the left leg lung the suture line. Patient had a carotid Doppler of the left lower extremities which showed DVT in the popliteal veins appears to be chronic and has been present in the previous Dopplers as well patient is on Eliquis for that which is being temporally held until patient is evaluated by vascular surgery. Patient was given Zosyn and was started and continued on vancomycin ration is hyponatremic with highly elevated blood sugars uncontrolled blood sugars. Patient was comparing of severe pain in the left foot area and whole left leg. Which is sharp in nature throbbing sensation Review of Systems REVIEW OF SYSTEMS: CONSTITUTIONAL: No fever, no malaise, no fatigue. HEENT: No recent visual problems or hearing problems. Denied any sore throat. CARDIOVASCULAR: No chest pain, orthopnea, PND, no palpitations, no syncope. PULMONARY: No shortness of breath, no cough, no hemoptysis. GASTROINTESTINAL: No diarrhea, no nausea, no vomiting, no abdominal pain. NEUROLOGICAL: No headaches, no weakness, no numbness. HEMATOLOGICAL: Denies any bleeding or petechiae. GENITOURINARY: Denies any burning micturition, frequency, or urgency. MUSCULOSKELETAL/RHEUMATOLOGICAL: As mentioned in HPI ENDOCRINE: Denies any polyuria or polydipsia. The rest of the 14-point review of systems is negative. Past Medical History Past Medical History: Diabetes Mellitus, Hyperlipidemia, Hypertension, Vascular Disorder Additional Past Medical History / Comment(s): uvitis glaucoma, PVD, dvt to lower left leg Last Myocardial Infarction Date:: 2005 History of Any Multi-Drug Resistant Organisms: None Reported Past Surgical History: Hernia Repair, Orthopedic Surgery Additional Past Surgical History / Comment(s): aortgram w/ runnoff, eye surg implant, bilateral knee SX, vein stripping Past Anesthesia/Blood Transfusion Reactions: No Reported Reaction Additional Past Anesthesia/Blood Transfusion Reaction / Comment(s): no hx blood transfusion Past Psychological History: No Psychological Hx Reported Smoking Status: Former smoker Past Alcohol Use History: Rare Additional Past Alcohol Use History / Comment(s): quit smoking at 26,started at age 17,<1ppd Past Drug Use History: Marijuana Additional Drug Use History / Comment(s): uses marijuana daily - Past Family History Mother History Unknown: Yes Medications and Allergies Home Medications Medication Instructions Recorded Confirmed Type Atenolol 25 mg PO BID 09/11/15 02/19/20 History Lisinopril [Zestril] 20 mg PO DAILY 09/11/15 02/19/20 History amLODIPine [Norvasc] 10 mg PO DAILY 09/11/15 02/19/20 History Aspirin [Adult Low Dose Aspirin EC] 81 mg PO DAILY 01/21/19 02/19/20 History Glimepiride [Amaryl] 2 mg PO DAILY 02/01/20 02/19/20 History Simvastatin [Zocor] 20 mg PO HS 02/01/20 02/19/20 History Apixaban [Eliquis] 5 mg PO BID #60 tab 02/10/20 02/19/20 Rx Gabapentin [Neurontin] 300 mg PO TID #90 cap 02/10/20 02/19/20 Rx INSULIN ASPART (NovoLOG) [NovoLOG 8 unit SQ TID-W/MEALS #1 vial 02/10/20 02/19/20 Rx (formulary)] Insulin Detemir (Levemir) [Levemir] 24 unit SQ HS #1 syr 02/10/20 02/19/20 Rx HYDROcodone/APAP 5-325MG [[place] 1 tab PO Q6HR PRN 02/19/20 02/19/20 History 5-325] Sennosides-Docusate Sodium 1 tab PO BID PRN 02/19/20 02/19/20 History [Senokot-S] Allergies Allergy/AdvReac Type Severity Reaction Status Date / Time atorvastatin [From Lipitor] Allergy Swelling Verified 02/19/20 21:22 ibuprofen Allergy Swelling Verified 02/19/20 21:22 pregabalin [From Lyrica] Allergy Swelling Verified 02/19/20 21:22 Physical Exam Vitals: Vital Signs Temp Pulse Pulse Pulse Resp BP BP 02/20/20 07:31 18 02/20/20 07:00 98.4 F 77 16 154/68 02/20/20 02:50 97.4 F L 71 18 160/71 02/19/20 23:30 80 18 02/19/20 23:06 98.3 F 81 18 171/82 02/19/20 21:07 98.6 F 74 18 156/78 02/19/20 20:10 99.1 F 02/19/20 19:07 99.3 F 86 18 154/81 Pulse Ox 02/20/20 07:31 02/20/20 07:00 02/20/20 02:50 99 02/19/20 23:30 02/19/20 23:06 97 02/19/20 21:07 100 02/19/20 20:10 02/19/20 19:07 100 Intake and Output 02/19/20 02/20/20 02/20/20 22:59 06:59 14:59 Output Total 1175 600 Balance -1175 -600 Output: Urine 1175 600 Other: Voiding Method Toilet Toilet Weight 74.843 kg 69 kg PHYSICAL EXAMINATION: GENERAL: The patient is alert and oriented x3, not in any acute distress. Well developed, well nourished. HEENT: Pupils are round and equally reacting to light. EOMI. No scleral icterus. No conjunctival pallor. Normocephalic, atraumatic. No pharyngeal erythema. No thyromegaly. CARDIOVASCULAR: S1 and S2 present. No murmurs, rubs, or gallops. PULMONARY: Chest is clear to auscultation, no wheezing or crackles. ABDOMEN: Soft, nontender, nondistended, normoactive bowel sounds. No palpable organomegaly. MUSCULOSKELETAL: No joint swelling or deformity. EXTREMITIES: No cyanosis, clubbing, or pedal edema. NEUROLOGICAL: Gross neurological examination did not reveal any focal deficits. SKIN: Patient left leg is swollen and does have some local is of temperature and didn't see any obvious increasing redness there is some redness along the suture line which appears to be normal inflammation post surgery there is mild serosanguineous drainage which is being cultured at this time. Patient left leg is definitely more swollen than the right leg and the temperature in the left leg is higher than the right leg Results CBC & Chem 7: 02/19/20 21:00 02/19/20 21:00 Labs: Abnormal Lab Results - Last 24 Hours (Table) 02/19/20 02/19/20 02/19/20 Range/Units 21:00 21:00 21:00 RBC 3.51 L (4.30-5.90) m/uL Hgb 10.6 L (13.0-17.5) gm/dL Hct 32.6 L (39.0-53.0) % APTT 21.1 L (22.0-30.0) sec Sodium 132 L (137-145) mmol/L Chloride 95 L (98-107) mmol/L Glucose 435 H (74-99) mg/dL POC Glucose (mg/dL) (75-99) mg/dL 02/20/20 Range/Units 07:09 RBC (4.30-5.90) m/uL Hgb (13.0-17.5) gm/dL Hct (39.0-53.0) % APTT (22.0-30.0) sec Sodium (137-145) mmol/L Chloride (98-107) mmol/L Glucose (74-99) mg/dL POC Glucose (mg/dL) 416 H (75-99) mg/dL Assessment and Plan Plan: -Possible infection of the left leg encephalitis of the left leg: Wound cultures will be obtain blood cultures were sent in here, patient had a recent surgery and vascular surgery will evaluate for possible surgical site area infection patient doesn't have any leukocytosis or fever. Patient will be a valid by infectious disease continue with vancomycin. -Possible severe peripheral neuropathy: Will add Cymbalta for his pain -Hyponatremia possibly pseudohyponatremia from highly elevated blood sugars. Patient was started on IV fluids will start him on his home regimen along with sliding scale depending on his sliding scale requirements will titrate the insulin -Type 2 diabetes mellitus uncontrolled blood sugars management as mentioned above -Hypertension -Peripheral neuropathy diabetic peripheral neuropathy -Professor disease status post renal popliteal bypass and patient is on antiplatelet therapy -History of DVT in the past for which patient is on Eliquis which will be resumed after evaluation by vascular surgery -Hyperlipidemia - mild acute renal failure secondary to diuresis from hyperglycemia For above-mentioned chronic medical problems patient will resumed on appropriate home medications
[2020-02-20 12:36] LABS: Glucose,Whole Blood 292 mg/dL (75-99)
[2020-02-20] MEDS: HYDROcodone/APAP 5-325MG 1 EACH TAB PO PRN ×2 (12:46→17:56)
[2020-02-20] MEDS: DULoxetine HCL 20 MG CAPSULE.DR PO SCH (15:37)
--- NOTE | 2020-02-20 16:05 | P.GSCN ---
History of Present Illness Consult date: 02/20/20 Reason for Consult: Lower extremity pain and swelling Patient known to service History of present illness: Patient is a 54-year-old -[place] male who presented to the emergency room after having increased pain to the left lower extremity for the past 2-3 days. He recently underwent a left femoral-popliteal revascularization followed up by a left lower extremity fasciotomy on 02/08/2020 for compartment syndrome. The patient states after the fasciotomy he had improvement in the pain to the lower extremity, however the past 2-3 days he experienced increased pain and swelling to left lower extremity with some redness. The patient has a history of poorly controlled diabetes with diabetic neuropathy, acute limb ischemia status post revascularization and fasciotomy, history of left lower extremity deep vein thrombosis. The patient denies any fever or chills, any drainage or redness surrounding the fasciotomy site. Patient's sutures remain intact. The patient is currently on Neurontin for his pain however states that is not helping. The patient states he has not been very mobile, has been sitting with his legs dependent. He denies any shortness of breath, chest pain, or difficulty breathing. Review of Systems View of systems completed and all pertinent positives and negatives as stated in the HPI. Past Medical History Past Medical History: Diabetes Mellitus, Hyperlipidemia, Hypertension, Vascular Disorder Additional Past Medical History / Comment(s): uvitis glaucoma, PVD, dvt to lower left leg Last Myocardial Infarction Date:: 2005 History of Any Multi-Drug Resistant Organisms: None Reported Past Surgical History: Hernia Repair, Orthopedic Surgery Additional Past Surgical History / Comment(s): aortgram w/ runnoff, eye surg implant, bilateral knee SX, vein stripping Past Anesthesia/Blood Transfusion Reactions: No Reported Reaction Additional Past Anesthesia/Blood Transfusion Reaction / Comm: no hx blood transfusion Past Psychological History: No Psychological Hx Reported Smoking Status: Former smoker Past Alcohol Use History: Rare Additional Past Alcohol Use History / Comment(s): quit smoking at 26,started at age 17,<1ppd Past Drug Use History: Marijuana Additional Drug Use History / Comment(s): uses marijuana daily - Past Family History Mother History Unknown: Yes Medications and Allergies Home Medications Medication Instructions Recorded Confirmed Type Atenolol 25 mg PO BID 09/11/15 02/19/20 History Lisinopril [Zestril] 20 mg PO DAILY 09/11/15 02/19/20 History amLODIPine [Norvasc] 10 mg PO DAILY 09/11/15 02/19/20 History Aspirin [Adult Low Dose Aspirin EC] 81 mg PO DAILY 01/21/19 02/19/20 History Glimepiride [Amaryl] 2 mg PO DAILY 02/01/20 02/19/20 History Simvastatin [Zocor] 20 mg PO HS 02/01/20 02/19/20 History Apixaban [Eliquis] 5 mg PO BID #60 tab 02/10/20 02/19/20 Rx Gabapentin [Neurontin] 300 mg PO TID #90 cap 02/10/20 02/19/20 Rx INSULIN ASPART (NovoLOG) [NovoLOG 8 unit SQ TID-W/MEALS #1 vial 02/10/20 02/19/20 Rx (formulary)] Insulin Detemir (Levemir) [Levemir] 24 unit SQ HS #1 syr 02/10/20 02/19/20 Rx HYDROcodone/APAP 5-325MG [[place] 1 tab PO Q6HR PRN 02/19/20 02/19/20 History 5-325] Sennosides-Docusate Sodium 1 tab PO BID PRN 02/19/20 02/19/20 History [Senokot-S] Allergies Allergy/AdvReac Type Severity Reaction Status Date / Time atorvastatin [From Lipitor] Allergy Swelling Verified 02/19/20 21:22 ibuprofen Allergy Swelling Verified 02/19/20 21:22 pregabalin [From Lyrica] Allergy Swelling Verified 02/19/20 21:22 Surgical - Exam Vital Signs Temp Pulse Resp BP Pulse Ox 99.3 F 86 18 154/81 100 02/19/20 19:07 02/19/20 19:07 02/19/20 19:07 02/19/20 19:07 02/19/20 19:07 General appearance: The patient is alert, oriented, in no acute distress. HET: Head is normocephalic and atraumatic. Pupils are equal and reactive. Oropharynx is clear without lesions. Neck: Supple without lymphadenopathy. Trachea midline. Heart: S1 S2. Regular rate and rhythm. Lungs: No crackles or wheezes are heard. Abdomen: Soft, nontender, nondistended with bowel sounds. No peritoneal signs. No palpable organomegaly or masses. Extremities: Normal skin color and turgor. Left lower extremity with medial and lateral incisions clean and dry with intact sutures. +2 pitting edema to left lower extremity and foot. Palpable bilateral femoral and popliteal pulses, audible left dorsalis and posterior tibialis Doppler signals. Warm to the touch, painful to stimuli. Patient is able to freely move left foot and toes. Neurological: No focal deficits. Strength and sensation are grossly intact. Results Ultrasound venous Doppler duplex of left lower extremity showed ready flow with incomplete compression the left upper and mid popliteal vein, exam positive for nonocclusive DVT involving the upper and mid popliteal vein. - Labs 02/19/20 21:00 02/19/20 21:00 Abnormal Lab Results - Last 24 Hours (Table) 02/19/20 02/19/20 02/19/20 Range/Units 21:00 21:00 21:00 RBC 3.51 L (4.30-5.90) m/uL Hgb 10.6 L (13.0-17.5) gm/dL Hct 32.6 L (39.0-53.0) % APTT 21.1 L (22.0-30.0) sec Sodium 132 L (137-145) mmol/L Chloride 95 L (98-107) mmol/L Glucose 435 H (74-99) mg/dL POC Glucose (mg/dL) (75-99) mg/dL 02/20/20 Range/Units 07:09 RBC (4.30-5.90) m/uL Hgb (13.0-17.5) gm/dL Hct (39.0-53.0) % APTT (22.0-30.0) sec Sodium (137-145) mmol/L Chloride (98-107) mmol/L Glucose (74-99) mg/dL POC Glucose (mg/dL) 416 H (75-99) mg/dL Diabetes panel 02/19/20 Range/Units 21:00 Sodium 132 L (137-145) mmol/L Potassium 4.8 (3.5-5.1) mmol/L Chloride 95 L (98-107) mmol/L Carbon Dioxide 29 (22-30) mmol/L BUN 18 (9-20) mg/dL Creatinine 1.14 (0.66-1.25) mg/dL Glucose 435 H (74-99) mg/dL Calcium 9.8 (8.4-10.2) mg/dL AST 17 (17-59) U/L ALT 19 (4-49) U/L Alkaline Phosphatase 113 (38-126) U/L Total Protein 7.1 (6.3-8.2) g/dL Albumin 3.9 (3.5-5.0) g/dL Calcium panel 02/19/20 Range/Units 21:00 Calcium 9.8 (8.4-10.2) mg/dL Albumin 3.9 (3.5-5.0) g/dL Pituitary panel 02/19/20 Range/Units 21:00 Sodium 132 L (137-145) mmol/L Potassium 4.8 (3.5-5.1) mmol/L Chloride 95 L (98-107) mmol/L Carbon Dioxide 29 (22-30) mmol/L BUN 18 (9-20) mg/dL Creatinine 1.14 (0.66-1.25) mg/dL Glucose 435 H (74-99) mg/dL Calcium 9.8 (8.4-10.2) mg/dL Adrenal panel 02/19/20 Range/Units 21:00 Sodium 132 L (137-145) mmol/L Potassium 4.8 (3.5-5.1) mmol/L Chloride 95 L (98-107) mmol/L Carbon Dioxide 29 (22-30) mmol/L BUN 18 (9-20) mg/dL Creatinine 1.14 (0.66-1.25) mg/dL Glucose 435 H (74-99) mg/dL Calcium 9.8 (8.4-10.2) mg/dL Total Bilirubin 0.4 (0.2-1.3) mg/dL AST 17 (17-59) U/L ALT 19 (4-49) U/L Alkaline Phosphatase 113 (38-126) U/L Total Protein 7.1 (6.3-8.2) g/dL Albumin 3.9 (3.5-5.0) g/dL Assessment and Plan Assessment: 1. Left lower extremity pain and edema 2. Left lower extremity nonocclusive DVT, likely acute on chronic 3. Status post fasciotomy for compartment syndrome 4. Acute limb ischemia status post revascularization 5. Diabetes mellitus with diabetic peripheral neuropathy 6. Tobacco abuse 7. Hyperlipidemia Plan: Patient to continue on Eliquis 5 mg twice a day as previously ordered for peripheral arterial disease and left lower extremity DVT. We'll remove every other suture, patient to follow-up with Dr. Garnett next week for removal of remaining sutures. Elevate left lower extremity and apply compression stocking. Patient may be discharged home from a vascular surgery standpoint. Discussed with patient importance of smoking cessation and well-controlled diabetes. Will increase Neurontin from 300 mg to 600 mg TID. Patient to follow-up with Dr. Garnett next week as scheduled. Thank you for this consultation and allowing us to take part in the plan of care of this patient during his hospitalization. The above dictated assessment and findings were discussed with Dr. Dennison. The impression and plan of care have been directed as dictated.
[2020-02-20 16:29] LABS: Glucose,Whole Blood 224 mg/dL (75-99)
[2020-02-20 20:39] LABS: Glucose,Whole Blood 303 mg/dL (75-99)
[2020-02-20] MEDS: APIXABAN 5 MG TAB PO SCH (21:03)
[2020-02-20] MEDS: CEFEPIME 2 GM in SODIUM CHLORIDE 0.9% 100 ML IVPB SCH (22:44)
--- NOTE | 2020-02-20 23:28 | P.CONS ---
History of Present Illness - Reason for Consult Consult date: 02/20/20 left leg cellulitis Requesting physician: Evelina Myers - Chief Complaint left leg pain x 3 days - History of Present Illness Patient is a 54-year-old -[place] male in this patient who is status post left femoral-popliteal revascularization complicated by compartment syndrome and did have left leg fasciotomy on 02/08/2020 patient subsequently has been discharged home and the patient was doing well however the last 2 to 3 days the patient started having more pain to the left leg patient describes the pain to be more of a sharp and throbbing in nature and almost 10 out of 10 in severity with no significant radiation of this pain patient did have slight ser ous drainage from 1 of the incision site with the stitches are still intact and still having more swelling and redness to the leg with the symptom had the patient presented to the hospital patient has been evaluated by the ER physician on arrival to the ER patient did have low-grade fever of 99.3 F patient did have a normal white count with no left shift creatinine has been normal as well as liver enzymes whitt PCR was negative blood culture previously were pending patient was started on vancomycin pharmacy to dose infectious disease was consulted for further management of labile therapy x-rays of the left leg did shows no acute abnormality of the tibia and fibula patient did have a Doppler study suggestive of DVT left upper and mid popliteal vein vascular surgery is already on the case Review of Systems positive point has been mentioned in HPI rest of the systems are negative. Past Medical History Past Medical History: Diabetes Mellitus, Hyperlipidemia, Hypertension, Vascular Disorder Additional Past Medical History / Comment(s): uvitis glaucoma, PVD, dvt to lower left leg Last Myocardial Infarction Date:: 2005 History of Any Multi-Drug Resistant Organisms: None Reported Past Surgical History: Hernia Repair, Orthopedic Surgery Additional Past Surgical History / Comment(s): aortgram w/ runnoff, eye surg implant, bilateral knee SX, vein stripping Past Anesthesia/Blood Transfusion Reactions: No Reported Reaction Additional Past Anesthesia/Blood Transfusion Reaction / Comm: no hx blood transfusion Past Psychological History: No Psychological Hx Reported Smoking Status: Former smoker Past Alcohol Use History: Rare Additional Past Alcohol Use History / Comment(s): quit smoking at 26,started at age 17,<1ppd Past Drug Use History: Marijuana Additional Drug Use History / Comment(s): uses marijuana daily - Past Family History Mother History Unknown: Yes Medications and Allergies Home Medications Medication Instructions Recorded Confirmed Type Atenolol 25 mg PO BID 09/11/15 02/19/20 History Lisinopril [Zestril] 20 mg PO DAILY 09/11/15 02/19/20 History amLODIPine [Norvasc] 10 mg PO DAILY 09/11/15 02/19/20 History Aspirin [Adult Low Dose Aspirin EC] 81 mg PO DAILY 01/21/19 02/19/20 History Glimepiride [Amaryl] 2 mg PO DAILY 02/01/20 02/19/20 History Simvastatin [Zocor] 20 mg PO HS 02/01/20 02/19/20 History Apixaban [Eliquis] 5 mg PO BID #60 tab 02/10/20 02/19/20 Rx Gabapentin [Neurontin] 300 mg PO TID #90 cap 02/10/20 02/19/20 Rx INSULIN ASPART (NovoLOG) [NovoLOG 8 unit SQ TID-W/MEALS #1 vial 02/10/20 02/19/20 Rx (formulary)] Insulin Detemir (Levemir) [Levemir] 24 unit SQ HS #1 syr 02/10/20 02/19/20 Rx HYDROcodone/APAP 5-325MG [[place] 1 tab PO Q6HR PRN 02/19/20 02/19/20 History 5-325] Sennosides-Docusate Sodium 1 tab PO BID PRN 02/19/20 02/19/20 History [Senokot-S] Allergies Allergy/AdvReac Type Severity Reaction Status Date / Time atorvastatin [From Lipitor] Allergy Swelling Verified 02/19/20 21:22 ibuprofen Allergy Swelling Verified 02/19/20 21:22 pregabalin [From Lyrica] Allergy Swelling Verified 02/19/20 21:22 Physical Exam Vitals: Vital Signs Temp Pulse Pulse Pulse Resp BP BP 02/20/20 07:31 18 02/20/20 07:00 98.4 F 77 16 154/68 02/20/20 02:50 97.4 F L 71 18 160/71 02/19/20 23:30 80 18 02/19/20 23:06 98.3 F 81 18 171/82 02/19/20 21:07 98.6 F 74 18 156/78 02/19/20 20:10 99.1 F 02/19/20 19:07 99.3 F 86 18 154/81 Pulse Ox 02/20/20 07:31 02/20/20 07:00 02/20/20 02:50 99 02/19/20 23:30 02/19/20 23:06 97 02/19/20 21:07 100 02/19/20 20:10 02/19/20 19:07 100 Intake and Output 02/19/20 02/20/20 02/20/20 22:59 06:59 14:59 Output Total 1175 600 Balance -1175 -600 Output: Urine 1175 600 Other: Voiding Method Toilet Toilet Weight 74.843 kg 69 kg GENERAL DESCRIPTION: Middle-aged male lying in bed, no distress. No tachypnea or accessory muscle of respiration use. HEENT: Shows Pallor , no scleral icterus. Oral mucous membrane is dry. NECK: Trachea central, no thyromegaly. LUNGS: Unlabored breathing. Clear to auscultation anteriorly. No wheeze or crackle. HEART: S1, S2, regular rate and rhythm. ABDOMEN: Soft, no tenderness , guarding or rigidity EXTREMITIES: Left leg patient did have a medial and lateral incision on the medial side there is more swelling and redness and warmth and tender to touch some serous drainage sKIN: No rash, no masses palpable. NEUROLOGICAL: The patient is awake, alert, oriented x3, mood and affect normal. Results CBC & Chem 7: 02/19/20 21:00 02/19/20 21:00 Labs: Abnormal Lab Results - Last 24 Hours (Table) 02/19/20 02/19/20 02/19/20 Range/Units 21:00 21:00 21:00 RBC 3.51 L (4.30-5.90) m/uL Hgb 10.6 L (13.0-17.5) gm/dL Hct 32.6 L (39.0-53.0) % APTT 21.1 L (22.0-30.0) sec Sodium 132 L (137-145) mmol/L Chloride 95 L (98-107) mmol/L Glucose 435 H (74-99) mg/dL POC Glucose (mg/dL) (75-99) mg/dL 02/20/20 02/20/20 Range/Units 07:09 11:15 RBC (4.30-5.90) m/uL Hgb (13.0-17.5) gm/dL Hct (39.0-53.0) % APTT (22.0-30.0) sec Sodium (137-145) mmol/L Chloride (98-107) mmol/L Glucose (74-99) mg/dL POC Glucose (mg/dL) 416 H 292 H (75-99) mg/dL Assessment and Plan Assessment: 1-patient presented hospital with acute left leg pain in this patient with recent fasciotomy for compartment syndrome after vascular surgery and recent hospitalization will need to call for resistant gram-positive as well as gram- negative pathogen to the likely bacteria responsible for this infection 2-left popliteal vein DVT being managed by vascular surgery (1) Left leg cellulitis Current Visit: Yes Status: Acute Code(s): L03.116 - CELLULITIS OF LEFT LOWER LIMB SNOMED Code(s): 965033312 Plan: 1-vancomycin pharmacy to dose her with a target trough of 15 while watching her kidney function and Vanco trough closely. 2-we will add cefepime 2 g every 12hr while waiting for the culture to finalize We will follow on clinical condition and cultures to further adjust medication if needed Thank you for this consultation we will follow the patient along with you Time with Patient: Greater than 30
[2020-02-21 07:28] LABS: Glucose,Whole Blood 153 mg/dL (75-99)
[2020-02-21] MEDS: INSULIN ASPART (NovoLOG) 100 UNIT/ML VIAL SQ SCH ×7 (07:53→21:22)
[2020-02-21] MEDS: amLODIPine 10 MG TAB PO SCH (07:57)
[2020-02-21] MEDS: ATENOLOL 25 MG TAB PO SCH ×2 (07:58→21:23)
[2020-02-21] MEDS: GABAPENTIN 300 MG CAP PO SCH ×3 (07:58→21:24)
[2020-02-21] MEDS: CEFEPIME 2 GM in SODIUM CHLORIDE 0.9% 100 ML IVPB SCH (07:58)
[2020-02-21] MEDS: LISINOPRIL 20 MG TAB PO SCH (07:58)
[2020-02-21] MEDS: APIXABAN 5 MG TAB PO SCH ×2 (07:58→21:23)
[2020-02-21] MEDS: DULoxetine HCL 20 MG CAPSULE.DR PO SCH (08:00)
[2020-02-21 08:19] LABS: African American GFR (CKD) >90 (>60 ml/min/1.73 sqM); Non-African American GFR(CKD) >90 (>60 ml/min/1.73 sqM)
[2020-02-21] MEDS: VANCOMYCIN 1,250 MG in SODIUM CHLORIDE 0.9% 250 ML IVPB SCH (09:24)
[2020-02-21] MEDS: SODIUM CHLORIDE 0.9% 1,000 ML IV SCH ×2 (09:24→21:31)
[2020-02-21] MEDS: HYDROcodone/APAP 5-325MG 1 EACH TAB PO PRN ×2 (09:36→16:41)
[2020-02-21] MEDS: GLIMEPIRIDE 2 MG TAB PO SCH (10:34)
[2020-02-21 11:35] LABS: Glucose,Whole Blood 319 mg/dL (75-99)
[2020-02-21] MEDS ORDERED: KETOROLAC 30 MG/ML 1 ML VIAL IVP PRN (12:43)
--- NOTE | 2020-02-21 14:20 | PN ---
PROGRESS NOTE DATE OF SERVICE: 02/21/2020 REASON FOR FOLLOWUP: Left leg cellulitis. INTERVAL HISTORY: The patient is currently afebrile. The patient is breathing comfortably. Pain to the left leg is currently controlled, no worsening compared to yesterday. No chest pain. No shortness of breath or cough. No abdominal pain, no diarrhea. PHYSICAL EXAMINATION: Blood pressure 164/82 with a pulse of 55, temperature 99.2. He is 98% on room air. General description is a middle-aged male, lying in bed in no distress. RESPIRATORY SYSTEM: Unlabored breathing, clear to auscultation anteriorly. HEART: S1, S2. Regular rate and rhythm. ABDOMEN: Soft, no tenderness. LABS: Culture showing presumptive MRSA. Creatinine 0.84. DIAGNOSTIC IMPRESSION AND PLAN: Patient with left leg cellulitis. Culture with presumptive MRSA. Vancomycin pharmacy to dose target of 15. Discontinue cefepime. Monitor clinical course closely. MMODL / IJN: [id number] /
--- NOTE | 2020-02-21 16:26 | P.PN ---
Subjective Patient with recent. If a short of my of the left leg is admitted for possible cellulitis patient has MRSA from the cultures that was done from the purulent drainage of the left leg. Infectious disease evaluated the patient patient on vancomycin and patient is also being continued on cefepime at this time. Patient blood sugars are still elevated I'm increasing the dose of long-acting insulin continue with female insulin patient is on IV fluids was hyponatremic and do not have any symptoms sodium from today. She is still having pain in the left leg but much better compared to yesterday. Constitutional: Denied any fatigue denied any fever. Cardio vascular: denied any chest pain, palpitations Gastrointestinal denied any nausea vomiting Pulmonary: Denied any shortness of breath cough Neurologic denied any new focal deficits All inpatient medications were reviewed and appropriate changes in these medications as dictated in the interval history and assessment and plan. Objective - Vital Signs Vital signs: Vital Signs Temp 98.9 F 02/21/20 15:00 Pulse 59 L 02/21/20 15:00 Resp 16 02/21/20 15:00 BP 145/75 02/21/20 15:00 Pulse Ox 100 02/21/20 15:00 Intake & Output 02/20/20 02/21/20 02/21/20 18:59 06:59 18:59 Intake Total 1240 600 Output Total 800 2075 Balance 440 600 -2075 Intake: Intake, IV Titration 700 600 Amount Sodium Chloride 0.9% 1, 450 600 000 ml @ 75 mls/hr IV . [id number] DENNISE Rx#:[id number] Vancomycin 1,250 mg In 250 Sodium Chloride 0.9% 250 ml @ 125 mls/hr IVPB Q12HR DENNISE Rx#:[id number] Oral 540 Output: Urine 800 2075 Other: Voiding Method Toilet Toilet Toilet Urinal Urinal # Voids 1 1 2 - Exam PHYSICAL EXAMINATION: GENERAL: The patient is alert and oriented x3, not in any acute distress. Well developed, well nourished. HEENT: Pupils are round and equally reacting to light. EOMI. No scleral icterus. No conjunctival pallor. Normocephalic, atraumatic. No pharyngeal erythema. No thyromegaly. CARDIOVASCULAR: S1 and S2 present. No murmurs, rubs, or gallops. PULMONARY: Chest is clear to auscultation, no wheezing or crackles. ABDOMEN: Soft, nontender, nondistended, normoactive bowel sounds. No palpable organomegaly. MUSCULOSKELETAL: No joint swelling or deformity. EXTREMITIES: No cyanosis, clubbing, or pedal edema. NEUROLOGICAL: Gross neurological examination did not reveal any focal deficits. SKIN: Patient left leg is swollen and does have some local is of temperature , swelling and redness is a improved and patient has the compression socks on this leg - Labs CBC & Chem 7: 02/19/20 21:00 02/21/20 07:10 Labs: Abnormal Lab Results - Last 24 Hours (Table) 02/20/20 02/20/20 02/21/20 Range/Units 16:28 20:36 07:26 POC Glucose (mg/dL) 224 H 303 H 153 H (75-99) mg/dL 02/21/20 Range/Units 11:34 POC Glucose (mg/dL) 319 H (75-99) mg/dL Microbiology - Last 24 Hours (Table) 02/20/20 12:40 Gram Stain - Preliminary Incision Wound Culture - Preliminary Presumptive MRSA 02/19/20 21:00 Blood Culture - Preliminary Blood No Growth after 24 hours 02/20/20 12:40 Anaerobic Culture - Preliminary Leg - Left Assessment and Plan Plan: -Possible cellulitis of left leg: Wound cultures showing MRSA and patient is on vancomycin and cefepime was started by infectious disease, patient infection is in the surgical site area -Possible severe peripheral neuropathy: Patient on Cymbalta and Neurontin -Hyponatremia possibly pseudohyponatremia from highly elevated blood sugars. 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
[2020-02-21 16:58] LABS: Glucose,Whole Blood 254 mg/dL (75-99)
[2020-02-21] MEDS: HYDROmorphone 1 MG/ML 1 ML SYRINGE IVP PRN ×3 (18:34→23:54)
[2020-02-21] MEDS ORDERED: VANCOMYCIN TROUGH DUE 1 EACH MISC MISCELLANE ONE (20:00)
[2020-02-21] MEDS ORDERED: INSULIN DETEMIR (LEVEMIR) 100 UNIT/ML SYR SQ SCH (21:00)
[2020-02-21 21:09] LABS: Glucose,Whole Blood 167 mg/dL (75-99)
[2020-02-21] MEDS: VANCOMYCIN 1,500 MG in SODIUM CHLORIDE 0.9% 250 ML IVPB SCH (21:22)
[2020-02-21] MEDS: FAMOTIDINE 20 MG TAB PO SCH (21:23)
[2020-02-21] MEDS: SIMVASTATIN 20 MG PO SCH (21:32)
[2020-02-22] MEDS: amLODIPine 10 MG TAB PO SCH (07:31)
[2020-02-22] MEDS: GLIMEPIRIDE 2 MG TAB PO SCH (07:31)
[2020-02-22] MEDS: LISINOPRIL 20 MG TAB PO SCH (07:32)
[2020-02-22] MEDS: ATENOLOL 25 MG TAB PO SCH ×2 (07:32→21:54)
[2020-02-22] MEDS: DULoxetine HCL 20 MG CAPSULE.DR PO SCH (07:32)
[2020-02-22] MEDS: APIXABAN 5 MG TAB PO SCH ×2 (07:32→21:54)
[2020-02-22] MEDS: GABAPENTIN 300 MG CAP PO SCH ×3 (07:32→22:43)
[2020-02-22] MEDS: FAMOTIDINE 20 MG TAB PO SCH ×2 (07:32→21:54)
[2020-02-22] MEDS: VANCOMYCIN 1,500 MG in SODIUM CHLORIDE 0.9% 250 ML IVPB SCH ×2 (07:33→21:57)
[2020-02-22] MEDS: INSULIN ASPART (NovoLOG) 100 UNIT/ML VIAL SQ SCH ×7 (07:36→21:54)
[2020-02-22 07:37] LABS: Glucose,Whole Blood 211 mg/dL (75-99)
[2020-02-22] MEDS: HYDROmorphone 1 MG/ML 1 ML SYRINGE IVP PRN ×4 (08:31→19:07)
[2020-02-22 08:52] LABS: HCT 31.7 % (39.0-53.0); HGB 10.4 gm/dL (13.0-17.5); Hypochromasia Slight; MCH 30.8 pg (25.0-35.0); MCHC 32.9 g/dL (31.0-37.0); MCV 93.6 fL (80.0-100.0); Mean Platelet Volume 7.4; Platelet Count 396 k/uL (150-450); Poikilocytosis Slight; RBC 3.38 m/uL (4.30-5.90); RDW 13.4 % (11.5-15.5); WBC 9.3 k/uL (3.8-10.6)
[2020-02-22 09:01] LABS: African American GFR (CKD) >90 (>60 ml/min/1.73 sqM); Anion Gap 9 mmol/L; Blood Urea Nitrogen 9 mg/dL (9-20); Calcium 8.9 mg/dL (8.4-10.2); Carbon Dioxide 26 mmol/L (22-30); Chloride 97 mmol/L (98-107); Glucose 273 mg/dL (74-99); Non-African American GFR(CKD) >90 (>60 ml/min/1.73 sqM); Potassium 4.6 mmol/L (3.5-5.1); Sodium 132 mmol/L (137-145)
[2020-02-22 11:39] LABS: Glucose,Whole Blood 245 mg/dL (75-99)
--- NOTE | 2020-02-22 13:41 | P.PN ---
<JaspalRadha - Last Filed: 02/22/20 13:26> Subjective Progress Note Date: 02/22/20 Patient was seen and examined at bedside. Patient is sitting up in bed, alert and oriented. Patient has compression stocking on left lower extremity. Patient states he still has pain in his left great and second toe, rates 10 out of 10. Patient denies any fever or chills. His left lower extremity swelling has improved. He denies any shortness of breath, chest pain, or difficulty breathing. Objective - Vital Signs Vital signs: Vital Signs Temp 98.1 F 02/22/20 07:00 Pulse 54 L 02/22/20 07:00 Resp 16 02/22/20 07:00 BP 160/78 02/22/20 07:00 Pulse Ox 95 02/22/20 07:00 Intake & Output 02/21/20 02/22/20 02/22/20 18:59 06:59 18:59 Output Total 2074 1099 Balance -2074 Weight 72.5 kg Output: Urine 2074 1099 Other: Voiding Method Toilet Toilet Urinal Urinal # Voids 2 - Exam General appearance: The patient is alert, oriented, in no acute distress. HET: Head is normocephalic and atraumatic. Neck: Supple without lymphadenopathy. Heart: S1 S2. Regular rate and rhythm. Lungs: No crackles or wheezes are heard. Extremities: Left lower extremity warm to touch, however painful to stimuli. Patient is able to freely left foot and toes. Edema is improved. Medial incision with dressing, which was removed which showed purulent drainage from the lower segment of incision, sutures were removed and wound was cleaned and packed with wet to dry dressing. Neurological: No focal deficits. Strength and sensation are grossly intact. - Labs CBC & Chem 7: 02/22/20 08:08 02/22/20 08:08 Labs: Abnormal Lab Results - Last 24 Hours (Table) 02/21/20 02/21/20 02/22/20 Range/Units 16:57 21:08 07:33 RBC (4.30-5.90) m/uL Hgb (13.0-17.5) gm/dL Hct (39.0-53.0) % Sodium (137-145) mmol/L Chloride (98-107) mmol/L Glucose (74-99) mg/dL POC Glucose (mg/dL) 254 H 167 H 211 H (75-99) mg/dL 02/22/20 02/22/20 02/22/20 Range/Units 08:08 08:08 11:33 RBC 3.38 L (4.30-5.90) m/uL Hgb 10.4 L (13.0-17.5) gm/dL Hct 31.7 L (39.0-53.0) % Sodium 132 L (137-145) mmol/L Chloride 97 L (98-107) mmol/L Glucose 273 H (74-99) mg/dL POC Glucose (mg/dL) 245 H (75-99) mg/dL Microbiology - Last 24 Hours (Table) 02/20/20 12:40 Gram Stain - Final Incision Wound Culture - Final Methicillin resist S. aureus Strep agalactiae - (group b) 02/19/20 21:00 Blood Culture - Preliminary Blood No Growth after 48 hours Assessment and Plan Assessment: 1. Left lower extremity pain and edema 2. Left lower extremity nonocclusive DVT, likely acute on chronic 3. Status post fasciotomy for compartment syndrome 4. Acute limb ischemia status post revascularization 5. Diabetes mellitus with diabetic peripheral neuropathy 6. Tobacco abuse 7. Hyperlipidemia Plan: Continue IV antibiotics per infectious disease. Incision was cleaned and packed with wet to dry dressing. Daily dressing changes. Keep left lower extremity elevated. Continue gabapentin for neuropathic pain. Patient is to follow up next week with Dr. Dennison, appointment is already scheduled. The above dictated assessment and findings were discussed with her Jimena. The impression and plan of care have been directed as dictated. <Estela Hess - Last Filed: 02/22/20 17:44> Objective - Vital Signs Vital signs: Vital Signs Temp 97.7 F 02/22/20 15:00 Pulse 61 02/22/20 15:00 Resp 18 02/22/20 15:00 BP 160/74 02/22/20 15:00 Pulse Ox 98 02/22/20 15:00 Intake & Output 02/21/20 02/22/20 02/22/20 18:59 06:59 18:59 Output Total 2074 1099 Balance -2074 Weight 72.5 kg Output: Urine 2074 1099 Other: Voiding Method Toilet Toilet Urinal Urinal # Voids 2 2 - Exam dressing removed adn slough tissue apparent. no ranjit purulent drainge. No expressible drainage. No fluctuance. - Labs CBC & Chem 7: 02/22/20 08:08 02/22/20 08:08 Labs: Abnormal Lab Results - Last 24 Hours (Table) 02/21/20 02/22/20 02/22/20 Range/Units 21:08 07:33 08:08 RBC (4.30-5.90) m/uL Hgb (13.0-17.5) gm/dL Hct (39.0-53.0) % Sodium 132 L (137-145) mmol/L Chloride 97 L (98-107) mmol/L Glucose 273 H (74-99) mg/dL POC Glucose (mg/dL) 167 H 211 H (75-99) mg/dL 02/22/20 02/22/20 02/22/20 Range/Units 08:08 11:33 17:01 RBC 3.38 L (4.30-5.90) m/uL Hgb 10.4 L (13.0-17.5) gm/dL Hct 31.7 L (39.0-53.0) % Sodium (137-145) mmol/L Chloride (98-107) mmol/L Glucose (74-99) mg/dL POC Glucose (mg/dL) 245 H 282 H (75-99) mg/dL Microbiology - Last 24 Hours (Table) 02/20/20 12:40 Anaerobic Culture - Preliminary Leg - Left 02/20/20 12:40 Gram Stain - Final Incision Wound Culture - Final Methicillin resist S. aureus Strep agalactiae - (group b) 02/19/20 21:00 Blood Culture - Preliminary Blood No Growth after 48 hours
--- NOTE | 2020-02-22 14:10 | P.PN ---
Subjective Progress Note Date: 02/22/20 Principal diagnosis: Patient admitted with recent left leg possible cellulitis. patient has MRSA from the cultures that was done from the purulent drainage of the left leg. Infectious disease evaluated the patient patient on vancomycin and patient is also being continued on cefepime at this time. Patient blood sugars are still elevated I'm increasing the dose of long-acting insulin continue with insulin. patient is on IV fluids was hyponatremic.. Patient is still having pain in the left leg but much better compared to yesterday. Constitutional: Denied any fatigue denied any fever. Cardio vascular: denied any chest pain, palpitations Gastrointestinal denied any nausea vomiting Pulmonary: Denied any shortness of breath cough Neurologic denied any new focal deficits All inpatient medications were reviewed and appropriate changes in these medications as dictated in the interval history and assessment and plan. 02/22/2020 Patient is seen and evaluated and follow-up and was evaluated by vascular surgery with removal of a few stitches from the surgical site. Patient continues to have lower left extremity pain along with the first 2 digits of his left foot experiencing pain which may be related to neuropathy or recent fem- pop. Patient is continued on Neurontin along with Cymbalta and does have IV pain medications as needed. No reports of chest pain, shortness of breath, or palpitations. Patient is afebrile. No reports of nausea or vomiting and patie nt is tolerating diet. Infectious disease following. Patient remains on vancomycin. Wound culture showing MRSA and group B strep agalactiae. Case management following and arranging for possible IV antibiotic therapy in the outpatient setting. Objective - Vital Signs Vital signs: Vital Signs Temp 98.1 F 02/22/20 07:00 Pulse 54 L 02/22/20 07:00 Resp 16 02/22/20 07:00 BP 160/78 02/22/20 07:00 Pulse Ox 95 02/22/20 07:00 Intake & Output 02/21/20 02/22/20 02/22/20 18:59 06:59 18:59 Output Total 2074 1099 Balance -2074 Weight 72.5 kg Output: Urine 2074 1099 Other: Voiding Method Toilet Toilet Urinal Urinal # Voids 2 - Exam GENERAL: The patient is alert and oriented x3, not in any acute distress. Well developed, well nourished. HEENT: Pupils are round and equally reacting to light. EOMI. No scleral icterus. No conjunctival pallor. Normocephalic, atraumatic. No pharyngeal erythema. No thyromegaly. CARDIOVASCULAR: S1 and S2 present. No murmurs, rubs, or gallops. PULMONARY: Chest is clear to auscultation, no wheezing or crackles. ABDOMEN: Soft, nontender, nondistended, normoactive bowel sounds. No palpable o rganomegaly. MUSCULOSKELETAL: No joint swelling or deformity. EXTREMITIES: No cyanosis, clubbing, or pedal edema. NEUROLOGICAL: Gross neurological examination did not reveal any focal deficits. SKIN: Patient left leg is swollen and does have some localization of temperature , swelling and redness is a improved. A few more stitches from surgical site removed by vascular surgery with the bedside irrigation performed today. Dressing is dry and intact. - Labs CBC & Chem 7: 02/22/20 08:08 02/22/20 08:08 Labs: Abnormal Lab Results - Last 24 Hours (Table) 02/21/20 02/21/20 02/22/20 Range/Units 16:57 21:08 07:33 RBC (4.30-5.90) m/uL Hgb (13.0-17.5) gm/dL Hct (39.0-53.0) % Sodium (137-145) mmol/L Chloride (98-107) mmol/L Glucose (74-99) mg/dL POC Glucose (mg/dL) 254 H 167 H 211 H (75-99) mg/dL 02/22/20 02/22/20 02/22/20 Range/Units 08:08 08:08 11:33 RBC 3.38 L (4.30-5.90) m/uL Hgb 10.4 L (13.0-17.5) gm/dL Hct 31.7 L (39.0-53.0) % Sodium 132 L (137-145) mmol/L Chloride 97 L (98-107) mmol/L Glucose 273 H (74-99) mg/dL POC Glucose (mg/dL) 245 H (75-99) mg/dL Microbiology - Last 24 Hours (Table) 02/20/20 12:40 Gram Stain - Final Incision Wound Culture - Final Methicillin resist S. aureus Strep agalactiae - (group b) 02/19/20 21:00 Blood Culture - Preliminary Blood No Growth after 48 hours Assessment and Plan Assessment: -Possible cellulitis of left leg: Wound cultures showing MRSA along with strep agalactiae group b and patient is on vancomycin. Factious disease following. patient infection is in the surgical site area of recent fem-pop of the left lower extremity -Possible severe peripheral neuropathy: Patient on Cymbalta and Neurontin -Hyponatremia possibly pseudohyponatremia from highly elevated blood sugars. Patient blood sugars are still not controlled. Lantus increased to 35 units at bed along with 10 units 3 times a day with meals and sliding scale, will continue to monitor closely. -Type 2 diabetes mellitus uncontrolled blood sugars management as mentioned above -Hypertension -Peripheral neuropathy diabetic peripheral neuropathy -Peripheral vascular disease status post fem-popliteal bypass and patient is on antiplatelet therapy -History of DVT in the past for which patient is on Eliquis -Hyperlipidemia - mild acute renal failure secondary to diuresis from hyperglycemia
[2020-02-22] MEDS: SODIUM CHLORIDE 0.9% 1,000 ML IV SCH (14:25)
--- NOTE | 2020-02-22 16:40 | PN ---
PROGRESS NOTE DATE OF SERVICE: 02/22/2020 REASON FOR FOLLOWUP: Left lower extremity cellulitis, MRSA. INTERVAL HISTORY: The patient is currently afebrile. The patient is breathing comfortably. The patient denies having any chest pain. No shortness of breath. No cough. No abdominal pain or worsening pain in the left leg area. PHYSICAL EXAMINATION: Blood pressure 160/78 with a pulse of 74, temperature of 98.1, he is 95% on room air. General description is a middle-aged male, lying in bed in no distress. RESPIRATORY SYSTEM: Unlabored breathing, clear to auscultation anteriorly. HEART: S1, S2. Regular rate and rhythm. ABDOMEN: Soft, no tenderness. Left leg swelling and redness has slightly decreased. LABS: Hemoglobin is 10.4, white count 10.3, creatinine 0.87. Wound culture with MRSA, B strep blood culture negative. DIAGNOSTIC IMPRESSION AND PLAN: Patient with acute right lower extremity cellulitis with recent surgical intervention including fasciotomy. Will keep the patient on vancomycin. However, in view of extensive infection he will benefit from outpatient IV antibiotics. Will discuss further with the home health care case manager. Continue supportive care. MMODL / IJN: [id number] /
[2020-02-22 17:03] LABS: Glucose,Whole Blood 282 mg/dL (75-99)
[2020-02-22] MEDS: HYDROcodone/APAP 5-325MG 1 EACH TAB PO PRN (18:06)
[2020-02-22 21:02] LABS: Glucose,Whole Blood 288 mg/dL (75-99)
[2020-02-22] MEDS: INSULIN DETEMIR (LEVEMIR) 100 UNIT/ML SYR SQ SCH (21:56)
[2020-02-22] MEDS: SIMVASTATIN 20 MG PO SCH (22:41)
[2020-02-23] MEDS: HYDROmorphone 1 MG/ML 1 ML SYRINGE IVP PRN ×5 (00:54→21:36)
[2020-02-23] MEDS: SODIUM CHLORIDE 0.9% 1,000 ML IV SCH ×2 (00:58→15:34)
[2020-02-23 06:52] LABS: Glucose,Whole Blood 165 mg/dL (75-99)
[2020-02-23] MEDS: INSULIN ASPART (NovoLOG) 100 UNIT/ML VIAL SQ SCH ×7 (07:41→21:35)
[2020-02-23] MEDS: GABAPENTIN 300 MG CAP PO SCH ×3 (07:41→21:37)
[2020-02-23] MEDS: LISINOPRIL 20 MG TAB PO SCH (07:42)
[2020-02-23] MEDS: FAMOTIDINE 20 MG TAB PO SCH ×2 (07:42→21:37)
[2020-02-23] MEDS: DULoxetine HCL 20 MG CAPSULE.DR PO SCH (07:42)
[2020-02-23] MEDS: ATENOLOL 25 MG TAB PO SCH ×2 (07:42→21:37)
[2020-02-23] MEDS: amLODIPine 10 MG TAB PO SCH (07:42)
[2020-02-23] MEDS: APIXABAN 5 MG TAB PO SCH ×2 (07:42→21:37)
[2020-02-23] MEDS: GLIMEPIRIDE 2 MG TAB PO SCH (07:42)
[2020-02-23] MEDS ORDERED: VANCOMYCIN TROUGH DUE 1 EACH MISC MISCELLANE ONE (08:00)
[2020-02-23] MEDS: VANCOMYCIN 1,500 MG in SODIUM CHLORIDE 0.9% 250 ML IVPB SCH (09:09)
[2020-02-23 09:12] LABS: African American GFR (CKD) >90 (>60 ml/min/1.73 sqM); Non-African American GFR(CKD) >90 (>60 ml/min/1.73 sqM)
[2020-02-23 11:53] LABS: Glucose,Whole Blood 92 mg/dL (75-99)
--- NOTE | 2020-02-23 12:30 | P.PN ---
Subjective Progress Note Date: 02/23/20 Patient seen and examined lying in bed. No acute changes through the night. Patient's gabapentin had been increased, patient still complaints of neuropathic pain. Patient denies any fever or chills, shortness of breath or chest pain. Objective - Vital Signs Vital signs: Vital Signs Temp 98.1 F 02/23/20 07:00 Pulse 55 L 02/23/20 07:00 Resp 17 02/23/20 07:00 BP 147/81 02/23/20 07:00 Pulse Ox 100 02/23/20 07:00 Intake & Output 02/22/20 02/23/20 02/23/20 18:59 06:59 18:59 Output Total 925 2450 700 Balance -925 -2450 -700 Output: Urine 925 2450 700 Other: Voiding Method Toilet Urinal # Voids 2 1 - Exam General appearance: The patient is alert, oriented, in no acute distress. HET: Head is normocephalic and atraumatic. Neck: Supple without lymphadenopathy. Heart: S1 S2. Regular rate and rhythm. Lungs: No crackles or wheezes are heard. Extremities: Left lower extremity warm to touch, however painful to stimuli. Patient is able to freely move left foot and toes. Edema is improved. Medial incision with dressing, which was removed and showed improvement in surrounding skin tissue with minimal drainage. No fluctuance. Neurological: No focal deficits. Strength and sensation are grossly intact. - Labs CBC & Chem 7: 02/22/20 08:08 02/23/20 08:24 Labs: Abnormal Lab Results - Last 24 Hours (Table) 02/22/20 02/22/20 02/23/20 Range/Units 17:01 21:00 06:50 POC Glucose (mg/dL) 282 H 288 H 165 H (75-99) mg/dL Microbiology - Last 24 Hours (Table) 02/19/20 21:00 Blood Culture - Preliminary Blood No Growth after 72 hours 02/20/20 12:40 Anaerobic Culture - Preliminary Leg - Left 02/20/20 12:40 Gram Stain - Final Incision Wound Culture - Final Methicillin resist S. aureus Strep agalactiae - (group b) Assessment and Plan Assessment: 1. Left lower extremity pain and edema 2. Left lower extremity nonocclusive DVT, likely acute on chronic 3. Status post fasciotomy for compartment syndrome 4. Acute limb ischemia status post revascularization 5. Diabetes mellitus with diabetic peripheral neuropathy 6. Tobacco abuse 7. Hyperlipidemia Plan: Continue IV antibiotic therapy per infectious disease. Continue gabapentin. Patient to follow-up with Dr. Garnett next week. Continue daily dressing changes as ordered. The above dictated assessment and findings were discussed with Dr. Hess. The impression and plan of care have been directed as dictated.
--- NOTE | 2020-02-23 13:46 | P.PN ---
Subjective Progress Note Date: 02/23/20 Principal diagnosis: Patient admitted with recent left leg possible cellulitis. patient has MRSA from the cultures that was done from the purulent drainage of the left leg. Infectious disease evaluated the patient patient on vancomycin and patient is also being continued on cefepime at this time. Patient blood sugars are still elevated I'm increasing the dose of long-acting insulin continue with insulin. patient is on IV fluids was hyponatremic.. Patient is still having pain in the left leg but much better compared to yesterday. Constitutional: Denied any fatigue denied any fever. Cardio vascular: denied any chest pain, palpitations Gastrointestinal denied any nausea vomiting Pulmonary: Denied any shortness of breath cough Neurologic denied any new focal deficits All inpatient medications were reviewed and appropriate changes in these medications as dictated in the interval history and assessment and plan. 02/22/2020 Patient is seen and evaluated and follow-up and was evaluated by vascular surgery with removal of a few stitches from the surgical site. Patient continues to have lower left extremity pain along with the first 2 digits of his left foot experiencing pain which may be related to neuropathy or recent fem- pop. Patient is continued on Neurontin along with Cymbalta and does have IV pain medications as needed. No reports of chest pain, shortness of breath, or palpitations. Patient is afebrile. No reports of nausea or vomiting and patie nt is tolerating diet. Infectious disease following. Patient remains on vancomycin. Wound culture showing MRSA and group B strep agalactiae. Case management following and arranging for possible IV antibiotic therapy in the outpatient setting. 02/23/2020 Patient is seen and evaluated in follow-up today states his pain of the left lower extremity has slightly improved although continues to have discomfort in the toes. Patient being seen and followed by vascular surgery along with infectious disease and currently remains on IV vancomycin and will continue at this time. Case management and social work following for IV antibiotic therapy in the outpatient setting. Patient is being scheduled for a PICC line. Currently no reports of chest pain, shortness of breath, or palpitations. Chelle ent is afebrile. No reports of nausea or vomiting and patient is tolerating diet. Objective - Vital Signs Vital signs: Vital Signs Temp 98.1 F 02/23/20 07:00 Pulse 55 L 02/23/20 07:00 Resp 17 02/23/20 07:00 BP 147/81 02/23/20 07:00 Pulse Ox 100 02/23/20 07:00 Intake & Output 02/22/20 02/23/20 02/23/20 18:59 06:59 18:59 Output Total 925 2450 1500 Balance -925 -2450 -1500 Output: Urine 925 2450 1500 Other: Voiding Method Toilet Urinal # Voids 2 1 - Exam GENERAL: The patient is alert and oriented x3, not in any acute distress. Well developed, well nourished. HEENT: Pupils are round and equally reacting to light. EOMI. No scleral icterus. No conjunctival pallor. Normocephalic, atraumatic. No pharyngeal erythema. No thyromegaly. CARDIOVASCULAR: S1 and S2 present. No murmurs, rubs, or gallops. PULMONARY: Chest is clear to auscultation, no wheezing or crackles. ABDOMEN: Soft, nontender, nondistended, normoactive bowel sounds. No palpable organomegaly. MUSCULOSKELETAL: No joint swelling or deformity. EXTREMITIES: No cyanosis, clubbing, or pedal edema. NEUROLOGICAL: Gross neurological examination did not reveal any focal deficits. SKIN: Patient left leg swelling and redness is a improved. Dressing was removed and incision site is dry and intact with previous crusting from yesterday noted on old dressing. No drainage or swelling noted today - Labs CBC & Chem 7: 02/22/20 08:08 02/23/20 08:24 Labs: Abnormal Lab Results - Last 24 Hours (Table) 02/22/20 02/22/20 02/23/20 Range/Units 17:01 21:00 06:50 POC Glucose (mg/dL) 282 H 288 H 165 H (75-99) mg/dL Microbiology - Last 24 Hours (Table) 02/19/20 21:00 Blood Culture - Preliminary Blood No Growth after 72 hours 02/20/20 12:40 Anaerobic Culture - Preliminary Leg - Left 02/20/20 12:40 Gram Stain - Final Incision Wound Culture - Final Methicillin resist S. aureus Strep agalactiae - (group b) Assessment and Plan Assessment: -Possible cellulitis of left leg: Wound cultures showing MRSA along with strep agalactiae group b and patient is on vancomycin. Infectious disease following. patient infection is in the surgical site area of recent fem-pop of the left lower extremity. Infectious disease planning for PICC line placement and arranging outpatient IV antibiotic therapy -Possible severe peripheral neuropathy: Patient on Cymbalta and Neurontin -Hyponatremia possibly pseudohyponatremia from highly elevated blood sugars. Patient blood sugars slightly improved. -Type 2 diabetes mellitus uncontrolled blood sugars -Hypertension -Peripheral neuropathy diabetic peripheral neuropathy -Peripheral vascular disease status post fem-popliteal bypass and patient is on antiplatelet therapy -History of DVT in the past for which patient is on Eliquis -Hyperlipidemia -mild acute renal failure secondary to diuresis from hyperglycemia, improved. Current creatinine is 0.82.
[2020-02-23] MEDS: HYDROcodone/APAP 5-325MG 1 EACH TAB PO PRN ×2 (15:36→21:55)
[2020-02-23 16:46] LABS: Glucose,Whole Blood 255 mg/dL (75-99)
[2020-02-23] MEDS: VANCOMYCIN 1,250 MG in SODIUM CHLORIDE 0.9% 250 ML IVPB SCH (17:43)
[2020-02-23 21:22] LABS: Glucose,Whole Blood 182 mg/dL (75-99)
[2020-02-23] MEDS: INSULIN DETEMIR (LEVEMIR) 100 UNIT/ML SYR SQ SCH (21:37)
[2020-02-23] MEDS: SIMVASTATIN 20 MG PO SCH (21:45)
--- NOTE | 2020-02-23 23:30 | PN ---
PROGRESS NOTE DATE OF SERVICE: 02/23/2020 REASON FOR FOLLOWUP: Left lateral leg wound and cellulitis. INTERVAL HISTORY: The patient is currently afebrile, has been breathing comfortably. Pain and discomfort to the leg area has improved. Mostly complaining of pain to the big toe. Denies having any chest pain. No shortness of breath or cough. No abdominal pain or diarrhea. PHYSICAL EXAMINATION: Blood pressure is 154/81 with a pulse of 63, temperature of 98.3. He is 99% on room air. General description is a middle-aged male lying in bed in no distress. RESPIRATORY SYSTEM: Unlabored breathing, clear to auscultation anteriorly. HEART: S1, S2. Regular rate and rhythm. ABDOMEN: Soft, no tenderness. Left lateral leg incision with wound, surrounding redness has improved. No drainage. DIAGNOSTIC IMPRESSION AND PLAN: Patient with a left lateral leg wound in this patient who did have recent fasciotomy. Culture positive for strep and methicillin-resistant Staphylococcus aureus. The patient is covered with vancomycin dose needs to be adjusted to keep the trough around 15. In view of extensive infection, we will get a PICC line for outpatient IV vancomycin for 2 weeks. Continue with supportive care. MMODL / IJN: [id number] /
[2020-02-24] MEDS: VANCOMYCIN 1,250 MG in SODIUM CHLORIDE 0.9% 250 ML IVPB SCH ×4 (01:06→23:28)
[2020-02-24] MEDS: HYDROmorphone 1 MG/ML 1 ML SYRINGE IVP PRN ×3 (01:07→23:27)
[2020-02-24] MEDS: SODIUM CHLORIDE 0.9% 1,000 ML IV SCH ×2 (03:55→16:44)
[2020-02-24] MEDS: HYDROcodone/APAP 5-325MG 1 EACH TAB PO PRN ×2 (05:25→20:07)
[2020-02-24 07:36] LABS: Glucose,Whole Blood 83 mg/dL (75-99)
[2020-02-24] MEDS: INSULIN ASPART (NovoLOG) 100 UNIT/ML VIAL SQ SCH ×7 (07:36→20:08)
[2020-02-24] MEDS: GLIMEPIRIDE 2 MG TAB PO SCH (07:42)
[2020-02-24] MEDS: APIXABAN 5 MG TAB PO SCH (07:42)
[2020-02-24] MEDS: FAMOTIDINE 20 MG TAB PO SCH ×2 (07:42→20:07)
[2020-02-24] MEDS: ATENOLOL 25 MG TAB PO SCH ×2 (07:42→20:07)
[2020-02-24] MEDS: GABAPENTIN 300 MG CAP PO SCH ×3 (07:42→20:07)
[2020-02-24] MEDS: LISINOPRIL 20 MG TAB PO SCH (07:43)
[2020-02-24] MEDS: DULoxetine HCL 20 MG CAPSULE.DR PO SCH (07:43)
[2020-02-24] MEDS: amLODIPine 10 MG TAB PO SCH (07:43)
[2020-02-24 09:25] LABS: Prothrombin Time 10.3 sec (9.0-12.0)
[2020-02-24 11:37] LABS: Glucose,Whole Blood 225 mg/dL (75-99)
--- NOTE | 2020-02-24 11:58 | P.PN ---
Subjective Progress Note Date: 02/24/20 Patient seen and examined lying in bed. No acute changes through the night. Patient's gabapentin had been increased, patient still complaints of neuropathic pain greatest in left foot and first two toes. Patient denies any fever or chills, shortness of breath or chest pain. Objective - Vital Signs Vital signs: Vital Signs Temp 98.0 F 02/24/20 07:00 Pulse 59 L 02/24/20 07:00 Resp 16 02/24/20 07:00 BP 154/74 02/24/20 07:00 Pulse Ox 99 02/24/20 07:00 Intake & Output 02/23/20 02/24/20 02/24/20 18:59 06:59 18:59 Intake Total 910 Output Total 1500 700 Balance -1500 210 Weight 74.2 kg Intake: Oral 910 Output: Urine 1500 700 Other: Voiding Method Toilet Toilet Urinal Urinal # Voids 2 1 - Exam General appearance: The patient is alert, oriented, in no acute distress. HET: Head is normocephalic and atraumatic. Neck: Supple without lymphadenopathy. Heart: S1 S2. Regular rate and rhythm. Lungs: No crackles or wheezes are heard. Extremities: Left lower extremity warm to touch, however painful to stimuli. Patient is able to freely move left foot and toes. Edema is improved. Medial incision with dressing, Clean dry and intact. Neurological: No focal deficits. Strength and sensation are grossly intact. - Labs CBC & Chem 7: 02/22/20 08:08 02/23/20 08:24 Labs: Abnormal Lab Results - Last 24 Hours (Table) 02/23/20 02/23/20 02/24/20 Range/Units 16:43 21:19 11:34 POC Glucose (mg/dL) 255 H 182 H 225 H (75-99) mg/dL Microbiology - Last 24 Hours (Table) 02/20/20 12:40 Anaerobic Culture - Final Leg - Left 02/19/20 21:00 Blood Culture - Preliminary Blood No Growth after 96 hours Assessment and Plan Assessment: 1. Left lower extremity pain and edema 2. Left lower extremity nonocclusive DVT, likely acute on chronic 3. Status post fasciotomy for compartment syndrome 4. Acute limb ischemia status post revascularization 5. Diabetes mellitus with diabetic peripheral neuropathy 6. Tobacco abuse 7. Hyperlipidemia Plan: Continue IV antibiotic therapy per infectious disease. Continue gabapentin. Patient to follow-up with Dr. Garnett next week. Continue daily dressing changes as ordered. The above dictated assessment and findings were discussed with Dr. Hess. The impression and plan of care have been directed as dictated.
[2020-02-24 12:01] VITALS: BMI 29.0
[2020-02-24] MEDS ORDERED: VANCOMYCIN TROUGH DUE 1 EACH MISC MISCELLANE ONE (16:00)
--- NOTE | 2020-02-24 16:34 | PN ---
PROGRESS NOTE DATE OF SERVICE: 02/24/2020 REASON FOR FOLLOWUP: Left leg wound and cellulitis, MRSA. INTERVAL HISTORY: The patient is currently afebrile, has been breathing comfortably. The patient denies having any chest pain or shortness of breath or cough. No abdominal pain. Pain to the left leg is currently controlled. PHYSICAL EXAMINATION: Blood pressure 137/60 with a pulse of 54, temperature 98.1, he is 99% on room air. General description is a middle-aged male, lying in bed in no distress. RESPIRATORY SYSTEM: Unlabored breathing, clear to auscultation anteriorly. HEART: S1, S2. Regular rate and rhythm. ABDOMEN: Soft, nontender. LABS: No new labs have been obtained today. DIAGNOSTIC IMPRESSION AND PLAN: Patient with left leg wound with secondary cellulitis, culture with MRSA and group B strep. Patient is covered with vancomycin to continue waiting for outpatient antibiotic treatment on discharge. Duration about 2 weeks. Local care with Aquacel packing of the wound. Continue supportive care. MMODL / IJN: [id number] /
[2020-02-24 17:13] LABS: African American GFR (CKD) >90 (>60 ml/min/1.73 sqM); Non-African American GFR(CKD) >90 (>60 ml/min/1.73 sqM)
[2020-02-24 17:22] LABS: Glucose,Whole Blood 216 mg/dL (75-99)
--- NOTE | 2020-02-24 18:10 | P.PN ---
Subjective Progress Note Date: 02/24/20 Principal diagnosis: Patient admitted with recent left leg possible cellulitis. patient has MRSA from the cultures that was done from the purulent drainage of the left leg. Infectious disease evaluated the patient patient on vancomycin and patient is also being continued on cefepime at this time. Patient blood sugars are still elevated I'm increasing the dose of long-acting insulin continue with insulin. patient is on IV fluids was hyponatremic.. Patient is still having pain in the left leg but much better compared to yesterday. Constitutional: Denied any fatigue denied any fever. Cardio vascular: denied any chest pain, palpitations Gastrointestinal denied any nausea vomiting Pulmonary: Denied any shortness of breath cough Neurologic denied any new focal deficits All inpatient medications were reviewed and appropriate changes in these medications as dictated in the interval history and assessment and plan. 02/22/2020 Patient is seen and evaluated and follow-up and was evaluated by vascular surgery with removal of a few stitches from the surgical site. Patient continues to have lower left extremity pain along with the first 2 digits of his left foot experiencing pain which may be related to neuropathy or recent fem- pop. Patient is continued on Neurontin along with Cymbalta and does have IV pain medications as needed. No reports of chest pain, shortness of breath, or palpitations. Patient is afebrile. No reports of nausea or vomiting and patie nt is tolerating diet. Infectious disease following. Patient remains on vancomycin. Wound culture showing MRSA and group B strep agalactiae. Case management following and arranging for possible IV antibiotic therapy in the outpatient setting. 02/23/2020 Patient is seen and evaluated in follow-up today states his pain of the left lower extremity has slightly improved although continues to have discomfort in the toes. Patient being seen and followed by vascular surgery along with infectious disease and currently remains on IV vancomycin and will continue at this time. Case management and social work following for IV antibiotic therapy in the outpatient setting. Patient is being scheduled for a PICC line. Currently no reports of chest pain, shortness of breath, or palpitations. Chelle ent is afebrile. No reports of nausea or vomiting and patient is tolerating diet. 02/24/2020 Patient is seen in follow up today and is scheduled to receive a PICC line for outpatient IV antibiotic therapy. Patient received his dose of Eliquis this morning and anticoagulation needs to be held for the PICC line placement. Patient has no reports of chest pain, shortness of breath, or palpitations. Patient is afebrile. Patient denies any nausea or vomiting. Patient continues to have left foot pain but states it has slightly improved. Objective - Vital Signs Vital signs: Vital Signs Temp 98.1 F 02/24/20 14:38 Pulse 54 L 02/24/20 14:38 Resp 18 02/24/20 14:38 BP 137/60 02/24/20 14:38 Pulse Ox 99 02/24/20 14:38 Intake & Output 02/23/20 02/24/20 02/24/20 18:59 06:59 18:59 Intake Total 910 Output Total 9172 609 4108 Balance -1500 210 -1300 Weight 74.2 kg 74.2 kg Intake: Oral 910 Output: Urine 1793 291 8254 Other: Voiding Method Toilet Toilet Urinal Urinal # Voids 2 1 - Exam GENERAL: The patient is alert and oriented x3, not in any acute distress. Well developed, well nourished. HEENT: Pupils are round and equally reacting to light. EOMI. No scleral icterus. No conjunctival pallor. Normocephalic, atraumatic. No pharyngeal erythema. No thyromegaly. CARDIOVASCULAR: S1 and S2 present. No murmurs, rubs, or gallops. PULMONARY: Chest is clear to auscultation, no wheezing or crackles. ABDOMEN: Soft, nontender, nondistended, normoactive bowel sounds. No palpable organomegaly. MUSCULOSKELETAL: No joint swelling or deformity. EXTREMITIES: No cyanosis, clubbing, or pedal edema. NEUROLOGICAL: Gross neurological examination did not reveal any focal deficits. SKIN: Patient left leg swelling and redness has improved. Dressing of the left recent fem pop is dry and intact. No drainage or swelling noted today - Labs CBC & Chem 7: 02/22/20 08:08 02/24/20 16:10 Labs: Abnormal Lab Results - Last 24 Hours (Table) 02/23/20 02/24/20 02/24/20 Range/Units 21:19 11:34 17:20 POC Glucose (mg/dL) 182 H 225 H 216 H (75-99) mg/dL Microbiology - Last 24 Hours (Table) 02/20/20 12:40 Anaerobic Culture - Final Leg - Left 02/19/20 21:00 Blood Culture - Preliminary Blood No Growth after 96 hours Assessment and Plan Assessment: -Possible cellulitis of left leg: Wound cultures showing MRSA along with strep agalactiae group b and patient is on vancomycin. Infectious disease following. patient infection is in the surgical site area of recent fem-pop of the left lower extremity. Infectious disease planning for PICC line placement and arr anging outpatient IV antibiotic therapy. Eliquis being held now for PICC placement -Possible severe peripheral neuropathy: Patient on Cymbalta and Neurontin -Hyponatremia possibly pseudohyponatremia from highly elevated blood sugars. Patient blood sugars slightly improved. -Type 2 diabetes mellitus uncontrolled blood sugars -Hypertension -Peripheral neuropathy diabetic peripheral neuropathy -Peripheral vascular disease status post fem-popliteal bypass and patient is on antiplatelet therapy -History of DVT in the past for which patient is on Eliquis, holding for PICC placement -Hyperlipidemia -mild acute renal failure secondary to diuresis from hyperglycemia, improved.
[2020-02-24] MEDS: INSULIN DETEMIR (LEVEMIR) 100 UNIT/ML SYR SQ SCH ×2 (20:07→20:37)
[2020-02-24 20:13] LABS: Glucose,Whole Blood 251 mg/dL (75-99)
[2020-02-24] MEDS: SIMVASTATIN 20 MG PO SCH (20:15)
[2020-02-25] MEDS: HYDROcodone/APAP 5-325MG 1 EACH TAB PO PRN ×2 (03:04→19:48)
[2020-02-25] MEDS: VANCOMYCIN 1,250 MG in SODIUM CHLORIDE 0.9% 250 ML IVPB SCH ×3 (03:13→19:48)
[2020-02-25] MEDS: SODIUM CHLORIDE 0.9% 1,000 ML IV SCH ×2 (06:25→21:33)
[2020-02-25 07:37] LABS: Glucose,Whole Blood 159 mg/dL (75-99)
[2020-02-25] MEDS: HYDROmorphone 1 MG/ML 1 ML SYRINGE IVP PRN ×2 (07:41→17:59)
[2020-02-25] MEDS: INSULIN ASPART (NovoLOG) 100 UNIT/ML VIAL SQ SCH ×7 (07:49→21:27)
[2020-02-25] MEDS: ATENOLOL 25 MG TAB PO SCH ×2 (07:50→21:38)
[2020-02-25] MEDS: amLODIPine 10 MG TAB PO SCH (07:50)
[2020-02-25] MEDS: GABAPENTIN 300 MG CAP PO SCH ×3 (07:50→21:38)
[2020-02-25] MEDS: LISINOPRIL 20 MG TAB PO SCH (07:50)
[2020-02-25] MEDS: FAMOTIDINE 20 MG TAB PO SCH ×2 (07:50→21:38)
[2020-02-25] MEDS: DULoxetine HCL 20 MG CAPSULE.DR PO SCH (07:50)
[2020-02-25] MEDS: GLIMEPIRIDE 2 MG TAB PO SCH (07:53)
[2020-02-25 09:15] LABS: Basophils # (A) 0.1 k/uL (0-0.2); Basophils % (A) 1 %; Eosinophils # (A) 0.3 k/uL (0-0.7); Eosinophils % (A) 4 %; HCT 31.4 % (39.0-53.0); HGB 9.9 gm/dL (13.0-17.5); Hypochromasia Slight; Lymphocytes % (A) 26 %; MCH 28.7 pg (25.0-35.0); MCHC 31.5 g/dL (31.0-37.0); Mean Platelet Volume 7.4; Monocytes # (A) 0.6 k/uL (0-1.0); Monocytes % (A) 7 %; Neutrophils # (A) 4.7 k/uL (1.3-7.7); Neutrophils % (A) 61 %; Platelet Count 363 k/uL (150-450); RBC 3.45 m/uL (4.30-5.90); RDW 13.2 % (11.5-15.5); WBC 7.7 k/uL (3.8-10.6)
[2020-02-25 09:43] LABS: African American GFR (CKD) >90 (>60 ml/min/1.73 sqM); Anion Gap 7 mmol/L; Blood Urea Nitrogen 9 mg/dL (9-20); Calcium 9.3 mg/dL (8.4-10.2); Carbon Dioxide 27 mmol/L (22-30); Chloride 103 mmol/L (98-107); Glucose 115 mg/dL (74-99); Non-African American GFR(CKD) >90 (>60 ml/min/1.73 sqM); Potassium 4.3 mmol/L (3.5-5.1); Sodium 137 mmol/L (137-145)
[2020-02-25 11:36] LABS: Glucose,Whole Blood 232 mg/dL (75-99)
[2020-02-25 16:31] LABS: Glucose,Whole Blood 170 mg/dL (75-99)
--- NOTE | 2020-02-25 16:32 | P.PN ---
Subjective Patient with recent. If a short of my of the left leg is admitted for possible cellulitis patient has MRSA from the cultures that was done from the purulent drainage of the left leg. Infectious disease evaluated the patient patient on vancomycin and patient is also being continued on cefepime at this time. Patient blood sugars are still elevated I'm increasing the dose of long-acting insulin continue with female insulin patient is on IV fluids was hyponatremic and do not have any symptoms sodium from today. She is still having pain in the left leg but much better compared to yesterday. 02/22/2020 Patient is seen and evaluated and follow-up and was evaluated by vascular surgery with removal of a few stitches from the surgical site. Patient continues to have lower left extremity pain along with the first 2 digits of his left foot experiencing pain which may be related to neuropathy or recent fem- pop. Patient is continued on Neurontin along with Cymbalta and does have IV pain medications as needed. No reports of chest pain, shortness of breath, or palpitations. Patient is afebrile. No reports of nausea or vomiting and venkatesh t is tolerating diet. Infectious disease following. Patient remains on vancomycin. Wound culture showing MRSA and group B strep agalactiae. Case management following and arranging for possible IV antibiotic therapy in the outpatient setting. 02/23/2020 Patient is seen and evaluated in follow-up today states his pain of the left lower extremity has slightly improved although continues to have discomfort in the toes. Patient being seen and followed by vascular surgery along with infectious disease and currently remains on IV vancomycin and will continue at this time. Case management and social work following for IV antibiotic therapy in the outpatient setting. Patient is being scheduled for a PICC line. Currently no reports of chest pain, shortness of breath, or palpitations. Patie nt is afebrile. No reports of nausea or vomiting and patient is tolerating diet. 02/24/2020 Patient is seen in follow up today and is scheduled to receive a PICC line for outpatient IV antibiotic therapy. Patient received his dose of Eliquis this morning and anticoagulation needs to be held for the PICC line placement. Patient has no reports of chest pain, shortness of breath, or palpitations. P atient is afebrile. Patient denies any nausea or vomiting. Patient continues to have left foot pain but states it has slightly improved. Constitutional: Denied any fatigue denied any fever. Cardio vascular: denied any chest pain, palpitations Gastrointestinal denied any nausea vomiting Pulmonary: Denied any shortness of breath cough Neurologic denied any new focal deficits All inpatient medications were reviewed and appropriate changes in these medications as dictated in the interval history and assessment and plan. Objective - Vital Signs Vital signs: Vital Signs Temp 98.5 F 02/25/20 14:34 Pulse 58 L 02/25/20 14:34 Resp 18 02/25/20 14:34 BP 136/49 02/25/20 14:34 Pulse Ox 99 02/25/20 14:34 Intake & Output 02/24/20 02/25/20 02/25/20 18:59 06:59 18:59 Output Total 1300 1425 800 Balance -1300 -1425 -800 Weight 74.2 kg Output: Urine 1300 1425 800 Other: Voiding Method Toilet Toilet Urinal Urinal Urinal # Voids 1 # Bowel Movements 1 - Exam GENERAL: The patient is alert and oriented x3, not in any acute distress. Well developed, well nourished. HEENT: Pupils are round and equally reacting to light. EOMI. No scleral icterus. No conjunctival pallor. Normocephalic, atraumatic. No pharyngeal erythema. No thyromegaly. CARDIOVASCULAR: S1 and S2 present. No murmurs, rubs, or gallops. PULMONARY: Chest is clear to auscultation, no wheezing or crackles. ABDOMEN: Soft, nontender, nondistended, normoactive bowel sounds. No palpable organomegaly. MUSCULOSKELETAL: No joint swelling or deformity. EXTREMITIES: No cyanosis, clubbing, or pedal edema. NEUROLOGICAL: Gross neurological examination did not reveal any focal deficits. SKIN: Patient left leg swelling and redness has improved. Dressing of the left recent fem pop is dry and intact. No drainage or swelling noted today patient that I and D site looks good patient has an incision and drainage chest next to the surgical site area - Labs CBC & Chem 7: 02/25/20 08:22 02/25/20 08:22 Labs: Abnormal Lab Results - Last 24 Hours (Table) 02/24/20 02/24/20 02/25/20 Range/Units 17:20 20:02 07:22 RBC (4.30-5.90) m/uL Hgb (13.0-17.5) gm/dL Hct (39.0-53.0) % Glucose (74-99) mg/dL POC Glucose (mg/dL) 216 H 251 H 159 H (75-99) mg/dL 02/25/20 02/25/20 02/25/20 Range/Units 08:22 08:22 11:34 RBC 3.45 L (4.30-5.90) m/uL Hgb 9.9 L (13.0-17.5) gm/dL Hct 31.4 L (39.0-53.0) % Glucose 115 H (74-99) mg/dL POC Glucose (mg/dL) 232 H (75-99) mg/dL Microbiology - Last 24 Hours (Table) 02/19/20 21:00 Blood Culture - Preliminary Blood No Growth after 120 hours Assessment and Plan Plan: Abscess and cellulitis of the surgical site area.: Wound cultures showing MRSA along with strep agalactiae group b and patient is on vancomycin. Infectious disease following. patient infection is in the surgical site area of recent fem-pop of the left lower extremity. Infectious disease planning for PICC line placement and arranging outpatient IV antibiotic therapy. Eliquis being held now for PICC placement -Possible severe peripheral neuropathy: Patient on Cymbalta and Neurontin -Hyponatremia possibly pseudohyponatremia from highly elevated blood sugars. Her sugars significant improved hyponatremia resolved -Type 2 diabetes mellitus uncontrolled blood sugars -Hypertension -Peripheral neuropathy diabetic peripheral neuropathy -Peripheral vascular disease status post fem-popliteal bypass and patient is on antiplatelet therapy -History of DVT in the past for which patient is on Eliquis, holding for PICC placement -Hyperlipidemia -mild acute renal failure secondary to diuresis from hyperglycemia, improved.
[2020-02-25 21:14] LABS: Glucose,Whole Blood 170 mg/dL (75-99)
[2020-02-25] MEDS: SIMVASTATIN 20 MG PO SCH (21:37)
[2020-02-25] MEDS: INSULIN DETEMIR (LEVEMIR) 100 UNIT/ML SYR SQ SCH (21:38)
--- NOTE | 2020-02-26 00:20 | PN ---
PROGRESS NOTE DATE OF SERVICE: 02/25/2020 REASON FOR FOLLOWUP: Left lateral leg wound and cellulitis, MRSA. INTERVAL HISTORY: The patient is currently afebrile, has been breathing comfortably. Pain to the left leg is currently controlled. No chest pain, shortness of breath or cough. No nausea, vomiting, abdominal pain or diarrhea. PHYSICAL EXAMINATION: Blood pressure 136/49, pulse of 58, temperature 98.5. He is 99% on room air. General description: The patient is a middle-aged male lying in bed in no distress. Respiratory system: Unlabored breathing, clear to auscultation anteriorly. Heart S1, S2. Regular rate and rhythm. Abdomen soft, no tenderness. The left lateral leg wound is currently dressed. No obvious drainage on the dressing. LABS: Hemoglobin 9.8, white count 9.7. creatinine 0.80. DIAGNOSTIC IMPRESSION AND PLAN: Patient with MRSA and group B strep left leg wound infection with cellulitis. The patient is covered with vancomycin to continue. Did get a PICC line. Waiting for outpatient IV antibiotic arrangement and continue supportive care. MMODL / IJN: [id number] /
[2020-02-26] MEDS: VANCOMYCIN 1,250 MG in SODIUM CHLORIDE 0.9% 250 ML IVPB SCH ×3 (02:07→20:54)
[2020-02-26] MEDS: SODIUM CHLORIDE 0.9% 1,000 ML IV SCH ×2 (02:07→20:56)
[2020-02-26] MEDS: HYDROmorphone 1 MG/ML 1 ML SYRINGE IVP PRN ×4 (02:10→20:53)
[2020-02-26 07:07] LABS: Glucose,Whole Blood 136 mg/dL (75-99)
[2020-02-26] MEDS: INSULIN ASPART (NovoLOG) 100 UNIT/ML VIAL SQ SCH ×7 (07:33→20:56)
[2020-02-26] MEDS: GABAPENTIN 300 MG CAP PO SCH ×3 (07:34→20:56)
[2020-02-26] MEDS: ATENOLOL 25 MG TAB PO SCH ×2 (07:34→20:56)
[2020-02-26] MEDS: DULoxetine HCL 20 MG CAPSULE.DR PO SCH (07:34)
[2020-02-26] MEDS: amLODIPine 10 MG TAB PO SCH (07:35)
[2020-02-26] MEDS: GLIMEPIRIDE 2 MG TAB PO SCH (07:35)
[2020-02-26] MEDS: LISINOPRIL 20 MG TAB PO SCH (07:35)
[2020-02-26] MEDS: FAMOTIDINE 20 MG TAB PO SCH ×2 (07:35→20:56)
[2020-02-26] MEDS ORDERED: VANCOMYCIN TROUGH DUE 1 EACH MISC MISCELLANE ONE (10:00)
[2020-02-26 11:02] LABS: African American GFR (CKD) >90 (>60 ml/min/1.73 sqM); Non-African American GFR(CKD) >90 (>60 ml/min/1.73 sqM)
[2020-02-26 11:39] LABS: Glucose,Whole Blood 100 mg/dL (75-99)
--- NOTE | 2020-02-26 13:14 | P.PN ---
Subjective Patient with recent. If a short of my of the left leg is admitted for possible cellulitis patient has MRSA from the cultures that was done from the purulent drainage of the left leg. Infectious disease evaluated the patient patient on vancomycin and patient is also being continued on cefepime at this time. Patient blood sugars are still elevated I'm increasing the dose of long-acting insulin continue with female insulin patient is on IV fluids was hyponatremic and do not have any symptoms sodium from today. She is still having pain in the left leg but much better compared to yesterday. 02/22/2020 Patient is seen and evaluated and follow-up and was evaluated by vascular surgery with removal of a few stitches from the surgical site. Patient continues to have lower left extremity pain along with the first 2 digits of his left foot experiencing pain which may be related to neuropathy or recent fem- pop. Patient is continued on Neurontin along with Cymbalta and does have IV pain medications as needed. No reports of chest pain, shortness of breath, or palpitations. Patient is afebrile. No reports of nausea or vomiting and venkatesh t is tolerating diet. Infectious disease following. Patient remains on vancomycin. Wound culture showing MRSA and group B strep agalactiae. Case management following and arranging for possible IV antibiotic therapy in the outpatient setting. 02/23/2020 Patient is seen and evaluated in follow-up today states his pain of the left lower extremity has slightly improved although continues to have discomfort in the toes. Patient being seen and followed by vascular surgery along with infectious disease and currently remains on IV vancomycin and will continue at this time. Case management and social work following for IV antibiotic therapy in the outpatient setting. Patient is being scheduled for a PICC line. Currently no reports of chest pain, shortness of breath, or palpitations. Patie nt is afebrile. No reports of nausea or vomiting and patient is tolerating diet. 02/24/2020 Patient is seen in follow up today and is scheduled to receive a PICC line for outpatient IV antibiotic therapy. Patient received his dose of Eliquis this morning and anticoagulation needs to be held for the PICC line placement. Patient has no reports of chest pain, shortness of breath, or palpitations. P atient is afebrile. Patient denies any nausea or vomiting. Patient continues to have left foot pain but states it has slightly improved. 02/25/2020 . Patient is awaiting PICC line placement will be discharged Thursday02/26/2020 Patient is still has some pain in the left foot. Surgical site area appears to be clean. Possibly of discharge tomorrow after PICC line placement on IV antibiotics Constitutional: Denied any fatigue denied any fever. Cardio vascular: denied any chest pain, palpitations Gastrointestinal denied any nausea vomiting Pulmonary: Denied any shortness of breath cough Neurologic denied any new focal deficits All inpatient medications were reviewed and appropriate changes in these medications as dictated in the interval history and assessment and plan. Objective - Vital Signs Vital signs: Vital Signs Temp 98.2 F 02/26/20 07:00 Pulse 65 02/26/20 07:00 Resp 16 02/26/20 07:00 BP 176/74 02/26/20 07:00 Pulse Ox 100 02/26/20 07:00 Intake & Output 02/25/20 02/26/20 02/26/20 18:59 06:59 18:59 Intake Total 225 Output Total 800 Balance -800 225 Intake: Intake, IV Titration 225 Amount Sodium Chloride 0.9% 1, 225 000 ml @ 75 mls/hr IV . [id number] [facility] Rx#:[id number] Output: Urine 800 Other: Voiding Method Urinal Urinal Urinal # Voids 5 - Exam GENERAL: The patient is alert and oriented x3, not in any acute distress. Well developed, well nourished. HEENT: Pupils are round and equally reacting to light. EOMI. No scleral icterus. No conjunctival pallor. Normocephalic, atraumatic. No pharyngeal erythema. No thyromegaly. CARDIOVASCULAR: S1 and S2 present. No murmurs, rubs, or gallops. PULMONARY: Chest is clear to auscultation, no wheezing or crackles. ABDOMEN: Soft, nontender, nondistended, normoactive bowel sounds. No palpable organomegaly. MUSCULOSKELETAL: No joint swelling or deformity. EXTREMITIES: No cyanosis, clubbing, or pedal edema. NEUROLOGICAL: Gross neurological examination did not reveal any focal deficits. SKIN: Patient left leg swelling and redness has improved. Dressing of the left recent fem pop is dry and intact. No drainage or swelling noted today patient that I and D site looks good patient has an incision and drainage chest next to the surgical site area - Labs CBC & Chem 7: 02/25/20 08:22 02/26/20 10:50 Labs: Abnormal Lab Results - Last 24 Hours (Table) 02/25/20 02/25/20 02/26/20 Range/Units 16:28 21:12 07:04 POC Glucose (mg/dL) 170 H 170 H 136 H (75-99) mg/dL 02/26/20 Range/Units 11:36 POC Glucose (mg/dL) 100 H (75-99) mg/dL Microbiology - Last 24 Hours (Table) 02/19/20 21:00 Blood Culture - Final Blood No Growth after 144 hours Assessment and Plan Plan: Abscess and cellulitis of the surgical site area.: Wound cultures showing MRSA along with strep agalactiae group b and patient is on vancomycin. Infectious disease following. patient infection is in the surgical site area of recent fem- pop of the left lower extremity. Infectious disease planning for PICC line placement and arranging outpatient IV antibiotic therapy. Eliquis being held now for PICC placement -Possible severe peripheral neuropathy: Patient on Cymbalta and Neurontin -Hyponatremia possibly pseudohyponatremia from highly elevated blood sugars. Her sugars significant improved hyponatremia resolved -Type 2 diabetes mellitus uncontrolled blood sugars -Hypertension -Peripheral neuropathy diabetic peripheral neuropathy -Peripheral vascular disease status post fem-popliteal bypass and patient is on antiplatelet therapy -History of DVT in the past for which patient is on Eliquis, holding for PICC placement -Hyperlipidemia -mild acute renal failure secondary to diuresis from hyperglycemia, improved.
[2020-02-26 16:45] LABS: Glucose,Whole Blood 236 mg/dL (75-99)
[2020-02-26 20:29] LABS: Glucose,Whole Blood 209 mg/dL (75-99)
[2020-02-26] MEDS: SIMVASTATIN 20 MG PO SCH (20:49)
[2020-02-26] MEDS: INSULIN DETEMIR (LEVEMIR) 100 UNIT/ML SYR SQ SCH (20:55)
[2020-02-27] MEDS: HYDROmorphone 1 MG/ML 1 ML SYRINGE IVP PRN ×3 (00:12→08:14)
[2020-02-27] MEDS: VANCOMYCIN 1,250 MG in SODIUM CHLORIDE 0.9% 250 ML IVPB SCH ×2 (03:32→12:05)
--- NOTE | 2020-02-27 04:35 | PN ---
PROGRESS NOTE DATE OF SERVICE: 02/26/2020. REASON FOR FOLLOWUP: Left lateral wound and cellulitis MRSA. INTERVAL HISTORY: The patient is currently afebrile, has been breathing comfortably. Pain to the left leg is currently controlled. No chest pain, shortness of breath or cough. No abdominal pain or diarrhea. PHYSICAL EXAMINATION: Blood pressure 147/82 with a pulse of 65, temperature is 98.6. He is 100% on room air. General description is a middle-aged male lying in bed in no distress. RESPIRATORY SYSTEM: Unlabored breathing, clear to auscultation anteriorly. HEART: S1, S2. Regular rate and rhythm. ABDOMEN: Soft, no tenderness. Left leg swelling and redness improved. No drainage on the dressing. LABS: Creatinine 0.83. DIAGNOSTIC IMPRESSION AND PLAN: Patient with left lateral leg wound with cellulitis, culture positive for strep and MRSA. The patient is covered with vancomycin to continue. Waiting for a PICC line placement for outpatient antibiotics. Continue with supportive care. MMODL / IJN: [id number] /
[2020-02-27 07:12] LABS: Glucose,Whole Blood 218 mg/dL (75-99)
[2020-02-27 07:51] LABS: Basophils % (A) 1 %; Eosinophils # (A) 0.3 k/uL (0-0.7); Eosinophils % (A) 4 %; HCT 34.5 % (39.0-53.0); HGB 10.6 gm/dL (13.0-17.5); Hypochromasia Moderate; Lymphocytes # (A) 1.7 k/uL (1.0-4.8); Lymphocytes % (A) 27 %; MCH 28.3 pg (25.0-35.0); MCHC 30.7 g/dL (31.0-37.0); MCV 92.3 fL (80.0-100.0); Mean Platelet Volume 7.5; Monocytes # (A) 0.5 k/uL (0-1.0); Monocytes % (A) 8 %; Neutrophils # (A) 3.7 k/uL (1.3-7.7); Neutrophils % (A) 58 %; Platelet Count 308 k/uL (150-450); RBC 3.73 m/uL (4.30-5.90); RDW 13.2 % (11.5-15.5); WBC 6.4 k/uL (3.8-10.6)
[2020-02-27 07:56] LABS: Prothrombin Time 10.2 sec (9.0-12.0)
[2020-02-27 08:03] LABS: African American GFR (CKD) >90 (>60 ml/min/1.73 sqM); Anion Gap 6 mmol/L; Blood Urea Nitrogen 13 mg/dL (9-20); Carbon Dioxide 28 mmol/L (22-30); Chloride 101 mmol/L (98-107); Glucose 213 mg/dL (74-99); Non-African American GFR(CKD) >90 (>60 ml/min/1.73 sqM); Potassium 4.7 mmol/L (3.5-5.1); Sodium 135 mmol/L (137-145)
[2020-02-27 08:05] VITALS: RESP 16
[2020-02-27] MEDS: GABAPENTIN 300 MG CAP PO SCH (08:13)
[2020-02-27] MEDS: GLIMEPIRIDE 2 MG TAB PO SCH (08:13)
[2020-02-27] MEDS: amLODIPine 10 MG TAB PO SCH (08:14)
[2020-02-27] MEDS: ATENOLOL 25 MG TAB PO SCH (08:14)
[2020-02-27] MEDS: DULoxetine HCL 20 MG CAPSULE.DR PO SCH (08:14)
[2020-02-27] MEDS: LISINOPRIL 20 MG TAB PO SCH (08:14)
[2020-02-27] MEDS: FAMOTIDINE 20 MG TAB PO SCH (08:14)
[2020-02-27] MEDS: INSULIN ASPART (NovoLOG) 100 UNIT/ML VIAL SQ SCH ×4 (08:16→11:25)
[2020-02-27] MEDS ORDERED: LIDOCAINE 1% INJ 10MG/ML (20 ML MDV) SQ ONE ×2 (09:52→09:54)
--- NOTE | 2020-02-27 10:20 | IR ---
PICC LINE PLACEMENT: HISTORY: Infection requiring long-term antibiotic therapy PROCEDURE: Ultrasound and fluoroscopic guidance of PICC line placement. COMPLICATIONS: None ANESTHESIA: 1. 1% Lidocaine locally. FINDINGS/TECHNIQUE: The procedure was explained to the patient. The risks, complications, benefits and alternatives were discussed and any questions were answered. Informed consent was obtained. The patient was placed supine on the fluoroscopic table and prepped and draped in the usual sterile fash ion. Utilizing a 21 gauge needle and sonographic and fluoroscopic guidance, access in the left basi lic vein was achieved and there is placement of a 0.018 guidewire. The vein is patent. A 4-F sheath was placed over the guidewire. The guidewire and dilator were removed and a 4-F. PICC line was plac ed through the sheath with the tip at the level of the SVC. The sheath was removed, the catheter was flushed and sutured into position. The patient was stable throughout the procedure and remained sta ble upon discharge from the Department of Radiology. The vein puncture was patent under ultrasound. A bob scale image was obtained to document patency of the vein punctured. All elements of the maximal barrier technique were utilized. FLUOROSCOPY TIME: 0.2 minutes and one image submitted IMPRESSION: Successful PICC line placement under ultrasound and fluoroscopic guidance.
[2020-02-27] MEDS: HYDROcodone/APAP 5-325MG 1 EACH TAB PO PRN (10:36)
[2020-02-27 11:22] LABS: Glucose,Whole Blood 71 mg/dL (75-99)
[2020-02-27 12:10] LABS: Hemoglobin A1C 10.3 % (4.0-6.0)
[2020-02-27] MEDS: SODIUM CHLORIDE 0.9% 1,000 ML IV SCH (12:55)
[2020-02-27 14:37] VITALS: BP 156/77; PULSE 68; TEMP 97.5
--- NOTE | 2020-02-27 15:06 | P.DS ---
Providers Date of admission: 02/19/20 20:32 Expected date of discharge: 02/27/20 Attending physician: Ruben Rios Consults: 02/20/20 10:49 Consult Physician Urgent Consulting Provider: Blas Alanis Consult Reason/Comments: recent fem pop/revasc Left leg Do you want consulting provider notified?: Yes 02/20/20 11:14 Consult Physician Routine Consulting Provider: Tee Batista Consult Reason/Comments: Wound infection Do you want consulting provider notified?: Yes Primary care physician: Demetrius Cisse [facility] Course: Final diagnosis -Abscess and cellulitis of the left lower extremity status post fem-pop surgical site area -Possible severe peripheral neuropathy -Hyponatremia possibly pseudohyponatremia from highly elevated blood sugars -Type 2 diabetes mellitus uncontrolled blood sugars -Hypertension -Peripheral neuropathy diabetic peripheral neuropathy -Peripheral vascular disease status post fem-popliteal bypass -History of DVT in the past -Hyperlipidemia -mild acute renal failure secondary to diuresis from hyperglycemia, improved. Discharge disposition Patient is being discharged in a stable condition with guarded prognosis to home. Patient will continue with home care and also with IV antibiotics in the form of vancomycin per infectious disease recommendations. Will also follow-up with Dr. Dennison in the outpatient setting in 1 week. Total time taken is 35 minutes. History of present illness This is a 54-year-old male who was recently admitted with left leg possible cellulitis and also MRSA and was being closely monitored. Patient was also evaluated by vascular surgery as he had a recent fem-pop of the left lower extremity. Patient was initiated on vancomycin and received a PICC line during hospitalization and will continue with IV antibiotic therapy for at least another 2 weeks. Will follow-up with Dr. Garnett vascular surgery in the outpatient setting in 1 week along with infectious disease. Patient continue to have uncontrolled elevated blood sugars and adjustments have been made to his long-acting along with sliding scale and will continue at this time in the outpatient setting. Patient is to resume his anticoagulant upon discharge. Currently no reports of nausea, vomiting, or diarrhea. Patient is tolerating diet. No reports of chest pain, shortness of breath, or palpitations. Patient is afebrile. Patient will be discharged home today with continued Homecare. On exam vital signs are stable. Temp is 97.5F, pulse is 68, respirations are 16, blood pressure is 156/77, oxygen saturation is 99% on room air. Cardio S1, S2 are present. Respiratory shows diminished breath sounds with no wheezing or rhonchi noted. Abdomen is soft and nontender. Nervous system shows no focal deficits. Please refer to medication reconciliation sheet for a list of medications. Patient Condition at Discharge: Stable Plan - Discharge Summary Discharge Rx Participant: Yes New Discharge Prescriptions: New DULoxetine HCL [Cymbalta] 20 mg PO DAILY 30 Days #30 capsule. Insulin Detemir (Levemir) [Levemir] 35 unit SQ HS 30 Days #2 syr Gabapentin [Neurontin] 600 mg PO TID #18 cap INSULIN ASPART (NovoLOG) [NovoLOG (formulary)] 10 unit SQ TID-W/MEALS 30 Days #2 vial Famotidine [Pepcid] 20 mg PO BID 30 Days #60 tab Continue amLODIPine [Norvasc] 10 mg PO DAILY Lisinopril [Zestril] 20 mg PO DAILY Atenolol 25 mg PO BID Glimepiride [Amaryl] 2 mg PO DAILY Simvastatin [Zocor] 20 mg PO HS Apixaban [Eliquis] 5 mg PO BID #60 tab Sennosides-Docusate Sodium [Senokot-S] 1 tab PO BID PRN PRN Reason: Constipation HYDROcodone/APAP 5-325MG [Arnold 5-325] 1 tab PO Q6HR PRN #12 tab PRN Reason: Pain Discontinued Aspirin [Adult Low Dose Aspirin EC] 81 mg PO DAILY Gabapentin [Neurontin] 300 mg PO TID #90 cap Insulin Detemir (Levemir) [Levemir] 24 unit SQ HS #1 syr INSULIN ASPART (NovoLOG) [NovoLOG (formulary)] 8 unit SQ TID-W/MEALS #1 vial Discharge Medication List Atenolol 25 mg PO BID 09/11/15 [History] Lisinopril [Zestril] 20 mg PO DAILY 09/11/15 [History] amLODIPine [Norvasc] 10 mg PO DAILY 09/11/15 [History] Glimepiride [Amaryl] 2 mg PO DAILY 02/01/20 [History] Simvastatin [Zocor] 20 mg PO HS 02/01/20 [History] Apixaban [Eliquis] 5 mg PO BID #60 tab 02/10/20 [Rx] Sennosides-Docusate Sodium [Senokot-S] 1 tab PO BID PRN 02/19/20 [History] DULoxetine HCL [Cymbalta] 20 mg PO DAILY 30 Days #30 capsule. 02/27/20 [Rx] Famotidine [Pepcid] 20 mg PO BID 30 Days #60 tab 02/27/20 [Rx] Gabapentin [Neurontin] 600 mg PO TID #18 cap 02/27/20 [Rx] HYDROcodone/APAP 5-325MG [Arnold 5-325] 1 tab PO Q6HR PRN #12 tab 02/27/20 [Rx] INSULIN ASPART (NovoLOG) [NovoLOG (formulary)] 10 unit SQ TID-W/MEALS 30 Days #2 vial 02/27/20 [Rx] Insulin Detemir (Levemir) [Levemir] 35 unit SQ HS 30 Days #2 syr 02/27/20 [Rx] Follow up Appointment(s)/Referral(s): Betito Romo MD [Primary Care Provider] - 03/01/20 2:10 pm Estela Hess DO [STAFF PHYSICIAN] - 1 Week (03/01/20 has appointment) [facility], [NON-STAFF] - As Needed (In order to have home care, you will need to follow up with first.) Tee Batista MD [STAFF PHYSICIAN] - 1 Week (Office will be in contact upon discharge to set up a follow up appointment) Patient Instructions/Handouts: Peripherally Inserted Central Catheters and Midline Catheters (DC) Activity/Diet/Wound Care/Special Instructions: IV antibiotics through [facility]: #[phone] They will deliver meds today and [facility] will start service tonight for your IV antibiotics. Activity Limited until follow-up Continue current diet Continue monitoring blood sugars before meals and at bedtime and keep a diary for primary care follow-up Follow-up with vascular surgery Dr. Dennison in one week Follow-up with Dr. Batista in 1-2 weeks Continue with IV antibiotic therapy Resume anticoagulant Continue with Homecare Follow-up with primary care provider upon discharge Discharge Disposition: HOME WITH HOME HEALTH SERVICES
[2020-02-28] MEDS ORDERED: VANCOMYCIN TROUGH DUE 1 EACH MISC MISCELLANE ONE (10:00)
== END 2020-02-27 15:15 | disposition home health service (06) | DRG 863 ==
LOC: EC 19:03 → 4SSUR 20:32
PROVIDERS: ADMIT Hospitalist; ATTEND Hospitalist
PROC: 02HV33Z Insertion of Infusion Device into Superior Vena Cava, Percutaneous Approach (ICD-10-PCS; principal; 2020-02-27 12:00)
DX: T81.41XA Infection following a procedure, superficial incisional surgical site, initial encounter (principal); I82.432 Acute embolism and thrombosis of left popliteal vein; N17.9 Acute kidney failure, unspecified; E87.1 Hypo-osmolality and hyponatremia; I82.532 Chronic embolism and thrombosis of left popliteal vein; L03.116 Cellulitis of left lower limb; E11.51 Type 2 diabetes mellitus with diabetic peripheral angiopathy without gangrene; E11.42 Type 2 diabetes mellitus with diabetic polyneuropathy; E11.39 Type 2 diabetes mellitus with other diabetic ophthalmic complication; B95.1 Streptococcus, group B, as the cause of diseases classified elsewhere; E11.65 Type 2 diabetes mellitus with hyperglycemia; Z79.4 Long term (current) use of insulin; Z11.59 Encounter for screening for other viral diseases; B95.62 Methicillin resistant Staphylococcus aureus infection as the cause of diseases classified elsewhere; E78.5 Hyperlipidemia, unspecified; I10 Essential (primary) hypertension; H40.9 Unspecified glaucoma; H42 Glaucoma in diseases classified elsewhere; I25.2 Old myocardial infarction; Z79.01 Long term (current) use of anticoagulants; Z79.82 Long term (current) use of aspirin; Z79.899 Other long term (current) drug therapy; Z95.828 Presence of other vascular implants and grafts; Z87.891 Personal history of nicotine dependence; Z98.890 Other specified postprocedural states; Z88.6 Allergy status to analgesic agent; Z88.8 Allergy status to other drugs, medicaments and biological substances
CPT/HCPCS: 36415; 36573; 80048; 80053; 80202; 82565; 83036; 83605; 85025; 85027; 85610; 85730; 87040; 87070; 87075; 87077; 87186; 87205; 96361; 96365; 96367; 96375; 99284

== ENCOUNTER 2020-03-30 14:47 | Inpatient (IN) | payer MEDICARE, OTHER ==
--- NOTE | 2020-03-30 16:11 | ED ---
Extremity Problem HPI - General Chief complaint: Extremity Problem,Nontraumatic Stated complaint: left foot Time Seen by Provider: 03/30/20 15:25 Source: patient, RN notes reviewed, old records reviewed Mode of arrival: ambulatory Limitations: no limitations - History of Present Illness Initial comments: This is a 54-year-old male DF, patient presents today for evaluation regards to patient Dese for evaluation of continued and persistent pain pain in his left foot left great toe toes turning black patient is multiple evaluations lately for both postop complications as well as vascular stenting and cleaning of vessels in his left leg. Patient denying any fevers but states his leg always feels cold and painful MD Complaint: extremity pain, other (Left great toe black and painful) -: week(s) Location: left, toe Radiation: none Quality: stabbing, aching Consistency: constant Improves with: nothing Worsens with: nothing Associated Symptoms: denies other symptoms - Related Data Home Medications Medication Instructions Recorded Confirmed Atenolol 25 mg PO BID 09/11/15 02/19/20 Lisinopril [Zestril] 20 mg PO DAILY 09/11/15 02/19/20 amLODIPine [Norvasc] 10 mg PO DAILY 09/11/15 02/19/20 Glimepiride [Amaryl] 2 mg PO DAILY 02/01/20 02/19/20 Simvastatin [Zocor] 20 mg PO HS 02/01/20 02/19/20 Sennosides-Docusate Sodium 1 tab PO BID PRN 02/19/20 02/19/20 [Senokot-S] Previous Rx's Medication Instructions Recorded Apixaban [Eliquis] 5 mg PO BID #60 tab 02/10/20 DULoxetine HCL [Cymbalta] 20 mg PO DAILY 30 Days #30 02/27/20 capsule. Famotidine [Pepcid] 20 mg PO BID 30 Days #60 tab 02/27/20 Gabapentin [Neurontin] 600 mg PO TID #18 cap 02/27/20 HYDROcodone/APAP 5-325MG [[place] 1 tab PO Q6HR PRN #12 tab 02/27/20 5-325] INSULIN ASPART (NovoLOG) [NovoLOG 10 unit SQ TID-W/MEALS 30 Days #2 02/27/20 (formulary)] vial Insulin Detemir (Levemir) [Levemir] 35 unit SQ HS 30 Days #2 syr 02/27/20 Allergies Allergy/AdvReac Type Severity Reaction Status Date / Time atorvastatin [From Lipitor] Allergy Swelling Verified 03/30/20 14:59 ibuprofen Allergy Swelling Verified 03/30/20 14:59 pregabalin [From Lyrica] Allergy Swelling Verified 03/30/20 14:59 Review of Systems ROS Statement: Those systems with pertinent positive or pertinent negative responses have been documented in the HPI. ROS Other: All systems not noted in ROS Statement are negative. Past Medical History Past Medical History: Diabetes Mellitus, Hyperlipidemia, Hypertension, Vascular Disorder Additional Past Medical History / Comment(s): uvitis glaucoma, PVD, dvt to lower left leg Last Myocardial Infarction Date:: 2005 History of Any Multi-Drug Resistant Organisms: MRSA Date of last positivie culture/infection: 02/20/20 MDRO Source:: MRSA INCISION Past Surgical History: Hernia Repair, Orthopedic Surgery Additional Past Surgical History / Comment(s): aortgram w/ runnoff, eye surg implant, bilateral knee SX, vein stripping Past Anesthesia/Blood Transfusion Reactions: No Reported Reaction Additional Past Anesthesia/Blood Transfusion Reaction / Comment(s): no hx blood transfusion Past Psychological History: No Psychological Hx Reported Smoking Status: Former smoker Past Alcohol Use History: Rare Past Drug Use History: Marijuana - Past Family History Mother History Unknown: Yes General Exam Limitations: no limitations General appearance: alert, in no apparent distress Head exam: Present: atraumatic, normocephalic, normal inspection Eye exam: Present: normal appearance, PERRL, EOMI. Absent: scleral icterus, conjunctival injection, periorbital swelling ENT exam: Present: normal exam, mucous membranes moist Neck exam: Present: normal inspection. Absent: tenderness, meningismus, lymphadenopathy Respiratory exam: Present: normal lung sounds bilaterally. Absent: respiratory distress, wheezes, rales, rhonchi, stridor Cardiovascular Exam: Present: regular rate, normal rhythm, normal heart sounds. Absent: systolic murmur, diastolic murmur, rubs, gallop, clicks GI/Abdominal exam: Present: soft, normal bowel sounds. Absent: distended, tenderness, guarding, rebound, rigid Extremities exam: Present: normal inspection, full ROM, normal capillary refill, other (Left great toe is black). Absent: tenderness, pedal edema, joint swelling, calf tenderness Back exam: Present: normal inspection Neurological exam: Present: alert, oriented X3, CN II-XII intact Psychiatric exam: Present: normal affect, normal mood Skin exam: Present: warm, dry, intact, normal color. Absent: rash Course Vital Signs 03/30/20 14:56 Temperature 98.3 F Pulse Rate 63 Respiratory 18 Rate Blood Pressure 180/93 O2 Sat by Pulse 98 Oximetry - Reevaluation(s) Reevaluation #1: 03/30/20 16:49 Medical record is reviewed Reevaluation #2: 03/30/20 16:49 Patient without significant symptoms of that is concerned of increasing blackness and discoloration of his left great toe - Consultations Consultation #1: Daisy Rios was okay to admit Medical Decision Making - Medical Decision Making 54 male to the ER for evaluation of left great toe pain. Patient states that he is unsure why he still continues to feel worse as far as discoloration. Patient be admitted for likely ganglion ischemic left elbow - Lab Data Result diagrams: 03/30/20 16:40 Lab Results 03/30/20 03/30/20 Range/Units 16:40 16:40 WBC 7.3 (3.8-10.6) k/uL RBC 4.55 (4.30-5.90) m/uL Hgb 12.6 L (13.0-17.5) gm/dL Hct 40.3 (39.0-53.0) % MCV 88.5 (80.0-100.0) fL MCH 27.7 (25.0-35.0) pg MCHC 31.2 (31.0-37.0) g/dL RDW 13.7 (11.5-15.5) % Plt Count 236 (150-450) k/uL Neutrophils % 62 % Lymphocytes % 25 % Monocytes % 5 % Eosinophils % 5 % Basophils % 1 % Neutrophils # 4.5 (1.3-7.7) k/uL Lymphocytes # 1.9 (1.0-4.8) k/uL Monocytes # 0.4 (0-1.0) k/uL Eosinophils # 0.4 (0-0.7) k/uL Basophils # 0.1 (0-0.2) k/uL Plasma Lactic Acid Todd 1.3 (0.7-2.0) mmol/L - EKG Data -: EKG Interpreted by Me (EKG sinus bradycardia 56 RI 152 QRS 78 QTc 405) - Radiology Data Radiology results: report reviewed ((X-rays positive for likely cellulitis), image reviewed Disposition Clinical Impression: Gangrene of toe of left foot, Cellulitis of left foot, Ischemic toe, Cellulitis, Claudication of right lower extremity Disposition: ADMITTED IP TO THIS [facility] Condition: Fair Is patient prescribed a controlled substance at d/c from ED?: No Referrals: Betito Romo MD [Primary Care Provider] - 1-2 days
[2020-03-30] MEDS ORDERED: SODIUM CHLORIDE 0.9% 1,000 ML IV STA (16:32)
[2020-03-30 16:56] LABS: Basophils # (A) 0.1 k/uL (0-0.2); Basophils % (A) 1 %; Eosinophils # (A) 0.4 k/uL (0-0.7); Eosinophils % (A) 5 %; HCT 40.3 % (39.0-53.0); HGB 12.6 gm/dL (13.0-17.5); Lymphocytes # (A) 1.9 k/uL (1.0-4.8); Lymphocytes % (A) 25 %; MCH 27.7 pg (25.0-35.0); MCHC 31.2 g/dL (31.0-37.0); MCV 88.5 fL (80.0-100.0); Mean Platelet Volume 7.9; Monocytes # (A) 0.4 k/uL (0-1.0); Monocytes % (A) 5 %; Neutrophils # (A) 4.5 k/uL (1.3-7.7); Neutrophils % (A) 62 %; Platelet Count 236 k/uL (150-450); RBC 4.55 m/uL (4.30-5.90); RDW 13.7 % (11.5-15.5); WBC 7.3 k/uL (3.8-10.6)
--- NOTE | 2020-03-30 17:11 | XR ---
Left foot HISTORY: Pain, necrotic great toe for 2 weeks 3 views of the left foot There is a soft tissue defect noted at the first digit left foot. Degenerative change is present meta tarsophalangeal joint of the first digit. Bone mineralization is normal. There is no fracture or disl ocation. No periostitis to suggest osteomyelitis. Soft tissue swelling is present. Spurring is presen t at the intertarsal joints, tarsometatarsal joints, tibiotalar joint, there are vascular calcificati ons. IMPRESSION: Correlate for cellulitis. Osteoarthritis. Peripheral vascular occlusive disease.
[2020-03-30] MEDS ORDERED: VANCOMYCIN IV PER PHARMACY 1 EACH MISC MISCELLANE PRN (17:49)
[2020-03-30 17:56] LABS: Partial Thromboplastin Time 21.4 sec (22.0-30.0)
[2020-03-30] MEDS ORDERED: VANCOMYCIN 1,250 MG in SODIUM CHLORIDE 0.9% 250 ML IVPB STA (17:57)
[2020-03-30 18:05] LABS: Albumin 3.8 g/dL (3.5-5.0); Calcium 9.5 mg/dL (8.4-10.2); Magnesium 1.8 mg/dL (1.6-2.3); Phosphorus 4.4 mg/dL (2.5-4.5); Potassium 4.5 mmol/L (3.5-5.1); Total Bilirubin 0.9 mg/dL (0.2-1.3); Total Protein 6.7 g/dL (6.3-8.2)
[2020-03-30 20:44] LABS: Glucose,Whole Blood 360 mg/dL (75-99)
--- NOTE | 2020-03-30 21:29 | P.GSCN ---
History of Present Illness Consult date: 03/30/20 Reason for Consult: Ischemic changes of the left foot/cellulitis. History of present illness: Patient is a 54-year-old male well known to me who presented today to the emergency room with the complaint of black discoloration of the distal aspect of his left great toe as well as some foot discomfort. Patient has a history of a left femoral-popliteal bypass graft performed approximately 1-1/2 years prior. Approximately 6 weeks ago the patient presented to the hospital with a thrombosed graft with advanced arterial insufficiency/ischemia of the left lower extremity and foot. He did undergo thrombolyze this of the bypass graft and required 4 compartment fasciotomy of the left calf. Since the surgery the patient has been ambulatory. He denies any ischemic rest pain type symptoms although appears to be bothered by peripheral neuropathy. He was dismissed from the hospital on Eliquis as well as Neurontin. The patient has not been taking either these medications as he indicates he consumed his medication and never requested a refill from any physician/medical facility. He continues to use tobacco and marijuana products although to a much lesser extent then prior. He denies any new wounds of his foot and in fact indicates that recently some scabbing came off his great toe which revealed normal-appearing/healthy tissue. The fasciotomy wounds are well-healed. Impression: #1: History of bilateral lower extremity atherosclerotic/diabetic vascular disease, more pronounced on the left on the right. #2: Medical noncompliance as he has not continuing to take his anticoagulants as well as gabapentin. #3: Diabetes mellitus with elevated random glucose, suspicious for medical noncompliance in reference to his diabetic medications. #4: Hypertension #5: Tobacco abuse #6: Dry gangrenous changes of the distal tip of the left great toe, residual from his previous ischemic event. Wounds appear to be healing. #7: Diabetic neuropathy. Recommendation: #1: Restart his Eliquis and Neurontin. #2: I would anticipate the left great toe to slowly continue healing without further vascular intervention. There is no evidence of infectious complications of the toe at this time. #3: Office follow-up as previously scheduled. Past Medical History Past Medical History: Diabetes Mellitus, Hyperlipidemia, Hypertension, Vascular Disorder Additional Past Medical History / Comment(s): uvitis glaucoma, PVD, dvt to lower left leg Last Myocardial Infarction Date:: 2005 History of Any Multi-Drug Resistant Organisms: MRSA Year Discovered:: 02/20/20 MDRO Source:: MRSA INCISION Past Surgical History: Hernia Repair, Orthopedic Surgery Additional Past Surgical History / Comment(s): aortgram w/ runnoff, eye surg implant, bilateral knee SX, vein stripping in 02/2020 Past Anesthesia/Blood Transfusion Reactions: No Reported Reaction Additional Past Anesthesia/Blood Transfusion Reaction / Comm: no hx blood transfusion Past Psychological History: No Psychological Hx Reported Smoking Status: Former smoker Past Alcohol Use History: Rare Additional Past Alcohol Use History / Comment(s): quit smoking at 26,started at age 17,<1ppd Past Drug Use History: Marijuana Additional Drug Use History / Comment(s): uses marijuana daily - Past Family History Mother History Unknown: Yes Medications and Allergies Home Medications Medication Instructions Recorded Confirmed Type Atenolol 25 mg PO BID 09/11/15 03/30/20 History Lisinopril [Zestril] 20 mg PO DAILY 09/11/15 03/30/20 History amLODIPine [Norvasc] 10 mg PO DAILY 09/11/15 03/30/20 History Glimepiride [Amaryl] 2 mg PO DAILY 02/01/20 03/30/20 History Simvastatin [Zocor] 20 mg PO HS 02/01/20 03/30/20 History Apixaban [Eliquis] 5 mg PO BID #60 tab 02/10/20 03/30/20 Rx DULoxetine HCL [Cymbalta] 20 mg PO DAILY 30 Days #30 02/27/20 03/30/20 Rx capsule. INSULIN ASPART (NovoLOG) [NovoLOG 10 unit SQ TID-W/MEALS 30 Days #2 02/27/20 03/30/20 Rx (formulary)] vial Gabapentin [Neurontin] 300 mg PO TID 03/30/20 03/30/20 History Allergies Allergy/AdvReac Type Severity Reaction Status Date / Time atorvastatin [From Lipitor] Allergy Swelling Verified 03/30/20 18:12 ibuprofen Allergy Swelling Verified 03/30/20 18:12 pregabalin [From Lyrica] Allergy Swelling Verified 03/30/20 18:12 Surgical - Exam Osteopathic Statement: *. No significant issues noted on an osteopathic structural exam other than those noted in the History and Physical/Consult. Vital Signs Temp Pulse Resp BP Pulse Ox 98.3 F 63 18 180/93 98 03/30/20 14:56 03/30/20 14:56 03/30/20 14:56 03/30/20 14:56 03/30/20 14:56 - General well developed, no distress, no pain - Eyes PERRL, normal ocular movement - Neck no masses, no bruits, trachea midline, no lymphadectomy, no venous distension - Respiratory normal expansion, normal respiratory effort, clear to auscultation - Cardiovascular Rhythm: regular - Abdomen Abdomen: soft, non tender, bowel sounds Femoral, popliteal and dorsalis pedis pulses are intact on the right wall femoral and popliteal pulses are intact on the left. DP and PT pulses are absent on the left. Toes are freely movable bilaterally. Normal capillary refill is noted on the right and only slightly diminished on the left. The patient has an Abhijeet are covering the distal tip of his left great toe. Edges are well demarcated and there is no evidence of wet gangrenous changes. Webspaces of the pedal digits are clean and without lesion bilaterally. Results - Labs 03/30/20 16:40 03/30/20 17:44 Abnormal Lab Results - Last 24 Hours (Table) 03/30/20 03/30/20 03/30/20 Range/Units 16:40 17:13 17:44 Hgb 12.6 L (13.0-17.5) gm/dL APTT 21.4 L (22.0-30.0) sec Sodium 135 L (137-145) mmol/L Glucose 332 H (74-99) mg/dL POC Glucose (mg/dL) (75-99) mg/dL 03/30/20 Range/Units 20:42 Hgb (13.0-17.5) gm/dL APTT (22.0-30.0) sec Sodium (137-145) mmol/L Glucose (74-99) mg/dL POC Glucose (mg/dL) 360 H (75-99) mg/dL Diabetes panel 03/30/20 Range/Units 17:44 Sodium 135 L (137-145) mmol/L Potassium 4.5 (3.5-5.1) mmol/L Chloride 101 (98-107) mmol/L Carbon Dioxide 26 (22-30) mmol/L BUN 18 (9-20) mg/dL Creatinine 1.25 (0.66-1.25) mg/dL Glucose 332 H (74-99) mg/dL Calcium 9.5 (8.4-10.2) mg/dL AST 19 (17-59) U/L ALT 15 (4-49) U/L Alkaline Phosphatase 77 (38-126) U/L Total Protein 6.7 (6.3-8.2) g/dL Albumin 3.8 (3.5-5.0) g/dL Calcium panel 03/30/20 Range/Units 17:44 Calcium 9.5 (8.4-10.2) mg/dL Phosphorus 4.4 (2.5-4.5) mg/dL Albumin 3.8 (3.5-5.0) g/dL Pituitary panel 03/30/20 Range/Units 17:44 Sodium 135 L (137-145) mmol/L Potassium 4.5 (3.5-5.1) mmol/L Chloride 101 (98-107) mmol/L Carbon Dioxide 26 (22-30) mmol/L BUN 18 (9-20) mg/dL Creatinine 1.25 (0.66-1.25) mg/dL Glucose 332 H (74-99) mg/dL Calcium 9.5 (8.4-10.2) mg/dL Adrenal panel 03/30/20 Range/Units 17:44 Sodium 135 L (137-145) mmol/L Potassium 4.5 (3.5-5.1) mmol/L Chloride 101 (98-107) mmol/L Carbon Dioxide 26 (22-30) mmol/L BUN 18 (9-20) mg/dL Creatinine 1.25 (0.66-1.25) mg/dL Glucose 332 H (74-99) mg/dL Calcium 9.5 (8.4-10.2) mg/dL Total Bilirubin 0.9 (0.2-1.3) mg/dL AST 19 (17-59) U/L ALT 15 (4-49) U/L Alkaline Phosphatase 77 (38-126) U/L Total Protein 6.7 (6.3-8.2) g/dL Albumin 3.8 (3.5-5.0) g/dL
[2020-03-30] MEDS: HYDROcodone/APAP 5-325MG 1 EACH TAB PO PRN (22:23)
[2020-03-30] MEDS: APIXABAN 5 MG TAB PO SCH (22:23)
[2020-03-30] MEDS: GABAPENTIN 300 MG CAP PO SCH (22:23)
[2020-03-30] MEDS: atenoloL 25 MG TAB PO SCH (22:23)
[2020-03-30] MEDS ORDERED: INSULIN DETEMIR (LEVEMIR) 100 UNIT/ML SYR SQ SCH (22:30)
[2020-03-31 04:46] LABS: Hemoglobin A1C 12.6 % (4.0-6.0)
[2020-03-31 07:25] LABS: Glucose,Whole Blood 163 mg/dL (75-99)
[2020-03-31] MEDS: lisinopriL 20 MG TAB PO SCH (08:17)
[2020-03-31] MEDS: GABAPENTIN 300 MG CAP PO SCH ×3 (08:17→21:11)
[2020-03-31] MEDS: HYDROcodone/APAP 5-325MG 1 EACH TAB PO PRN ×2 (08:17→18:44)
[2020-03-31] MEDS: amLODIPine 10 MG TAB PO SCH (08:17)
[2020-03-31] MEDS: INSULIN ASPART (NovoLOG) 100 UNIT/ML VIAL SQ SCH ×4 (08:17→21:17)
[2020-03-31] MEDS: atenoloL 25 MG TAB PO SCH ×2 (08:17→21:11)
[2020-03-31] MEDS: APIXABAN 5 MG TAB PO SCH ×2 (08:17→21:11)
[2020-03-31] MEDS ORDERED: ENOXAPARIN 40 MG/0.4 ML SYRINGE SQ SCH (09:00)
[2020-03-31 12:49] LABS: Glucose,Whole Blood 243 mg/dL (75-99)
[2020-03-31 13:08] VITALS: RESP 16
[2020-03-31] MEDS: DULoxetine HCL 20 MG CAPSULE.DR PO SCH (13:17)
[2020-03-31] MEDS: GLIMEPIRIDE 2 MG TAB PO SCH (13:17)
[2020-03-31] MEDS: VANCOMYCIN 1,250 MG in SODIUM CHLORIDE 0.9% 250 ML IVPB SCH (13:18)
[2020-03-31 14:19] VITALS: BMI 29.0
[2020-03-31 17:12] LABS: Glucose,Whole Blood 202 mg/dL (75-99)
[2020-03-31 20:27] LABS: Glucose,Whole Blood 231 mg/dL (75-99)
[2020-03-31] MEDS: SIMVASTATIN 20 MG PO SCH (21:11)
[2020-03-31] MEDS: INSULIN DETEMIR (LEVEMIR) 100 UNIT/ML SYR SQ SCH (21:12)
--- NOTE | 2020-03-31 23:31 | P.HPIM ---
History of Present Illness H&P Date: 03/31/20 Chief Complaint: Left Foot pain Patient is a 54-year-old male with a known history of hypertension, diabetes type 2, peripheral vascular disease and DVT in the left lower extremity as well as previous history of smoking and marijuana use daily came to ER due to complaints of left foot pain and great toe turning black for the past 1 week. Otherwise denied any complaints of fever or chills. Patient states that his leg always feels cold and painful. Patient had left femoral-popliteal bypass graft performed about 1 and half year ago. About 6 weeks ago patient presented to the hospital with a thrombosed graft with advanced arterial insufficiency/ischemia of the left lower extremity and foot. He did undergo thrombolysis of his bypass graft and required 4 compartment fasciotomy of the left calf. Since then patient has been ambulatory but complaining of ischemic rest pain and also has history of peripheral neuropathy. Patient was on Eliquis and Neurontin at home but has not been taking these medications. Patient is somewhat poor historian. Xray of Left foot showed correlate for cellulitis. Osteoarthritis. Peripheral vascular disease. EKG showed sinus bradycardia with left axis deviation. Laboratory data showed WBC 7.3, hemoglobin 12.6 and platelets 236 Sodium 135, potassium 4.5, chloride 101, BUN 18 and creatinine 1.25 blood sugar is 332 on admission A1c 12.6 Review of Systems Constitutional: Patient denies any fever or chills . No generalized weakness or weight loss. Abdomen: Patient denied nausea vomiting and diarrhea and abdominal pain. Cardiovascular: Patient denies any chest pain or short of breath no palpitations. Respiratory: patient denied any cough is from production. No shortness of breath Neurologic: Patient denied any numbness or tingling headache. Musculoskeletal: Patient denies any complaints of joint swelling or deformity. Left foot pain and discoloration of the great toe. Skin: Negative Psychiatric: Negative Endocrine: No heat or cold intolerance. No recent weight gain. Genitourinary: No dysuria or hematuria. All other 14 point ROS negative except the above Past Medical History Past Medical History: Diabetes Mellitus, Hyperlipidemia, Hypertension, Vascular Disorder Additional Past Medical History / Comment(s): uvitis glaucoma, PVD, dvt to lower left leg Last Myocardial Infarction Date:: 2005 History of Any Multi-Drug Resistant Organisms: MRSA Date of last positivie culture/infection: 02/20/20 MDRO Source:: MRSA INCISION Past Surgical History: Hernia Repair, Orthopedic Surgery Additional Past Surgical History / Comment(s): aortgram w/ runnoff, eye surg implant, bilateral knee SX, left vein stripping in 02/2020 x2 Past Anesthesia/Blood Transfusion Reactions: No Reported Reaction Additional Past Anesthesia/Blood Transfusion Reaction / Comment(s): no hx blood transfusion Past Psychological History: No Psychological Hx Reported Smoking Status: Former smoker Past Alcohol Use History: Rare Additional Past Alcohol Use History / Comment(s): quit smoking at 26,started at age 17,<1ppd Past Drug Use History: Marijuana Additional Drug Use History / Comment(s): uses marijuana daily - Past Family History Mother History Unknown: Yes Medications and Allergies Home Medications Medication Instructions Recorded Confirmed Type Atenolol 25 mg PO BID 09/11/15 03/30/20 History Lisinopril [Zestril] 20 mg PO DAILY 09/11/15 03/30/20 History amLODIPine [Norvasc] 10 mg PO DAILY 09/11/15 03/30/20 History Glimepiride [Amaryl] 2 mg PO DAILY 02/01/20 03/30/20 History Simvastatin [Zocor] 20 mg PO HS 02/01/20 03/30/20 History Apixaban [Eliquis] 5 mg PO BID #60 tab 02/10/20 03/30/20 Rx DULoxetine HCL [Cymbalta] 20 mg PO DAILY 30 Days #30 02/27/20 03/30/20 Rx capsule. INSULIN ASPART (NovoLOG) [NovoLOG 10 unit SQ TID-W/MEALS 30 Days #2 02/27/20 03/30/20 Rx (formulary)] vial Gabapentin [Neurontin] 300 mg PO TID 03/30/20 03/30/20 History Insulin Glargine [Lantus] 55 unit SQ HS 03/30/20 03/30/20 History Allergies Allergy/AdvReac Type Severity Reaction Status Date / Time atorvastatin [From Lipitor] Allergy Swelling Verified 03/30/20 18:12 ibuprofen Allergy Swelling Verified 03/30/20 18:12 pregabalin [From Lyrica] Allergy Swelling Verified 03/30/20 18:12 Physical Exam Vitals: Vital Signs Temp Pulse Pulse Pulse Resp BP BP 03/31/20 04:40 98.4 F 58 L 20 189/95 07/10/20 22:28 70 184/96 03/30/20 20:55 99.4 F 79 16 192/90 03/30/20 18:45 98.8 F 56 L 18 160/78 03/30/20 16:58 55 L 20 168/85 03/30/20 14:56 98.3 F 63 18 180/93 Pulse Ox 03/31/20 04:40 99 03/30/20 22:28 03/30/20 20:55 99 03/30/20 18:45 99 03/30/20 16:58 97 03/30/20 14:56 98 Intake and Output 03/30/20 03/31/20 03/31/20 22:59 06:59 14:59 Intake Total 860 1040 Balance 860 1040 Intake: Intake, IV Titration 380 1040 Amount Sodium Chloride 0.9% 1, 130 1040 000 ml @ 130 mls/hr IV . Q7H42M [facility] Rx#:[id number] Vancomycin 1,250 mg In 250 Sodium Chloride 0.9% 250 ml @ 125 mls/hr IVPB ONCE [facility] Rx#:[id number] Oral 480 Other: Voiding Method Toilet # Voids 1 Weight 74.389 kg PHYSICAL EXAMINATION: Patient is lying in the bed comfortably, no acute distress, awake alert and oriented.. HEENT: Normocephalic. Neck is supple. Pupils reactive. Nostrils clear. Oral cavity is moist. Ears reveal no drainage. Neck reveals no JVD, carotid bruits, or thyromegaly. CHEST EXAMINATION: Trachea is central. Symmetrical expansion. Lung zapien clear to auscultation and percussion. CARDIAC: Normal S1, S2 with no gallops. No murmurs ABDOMEN: Soft. Bowel sounds normal. No organomegaly. No abdominal bruits. Extremities: reveal no edema. Left great toe dry gangrene. Left foot slightly cool to touch compared to right. Left calf surgical wound is healing well. No discharge noted. No warmth of the leg. Neurologically awake, alert, oriented x3 with well-coordinated movements. No focal deficits noted Skin: No rash or skin lesions. Psychiatric: Coperative. Nonsuicidal Musculoskeletal: No joint swelling or deformity. Normal range of motion. Results CBC & Chem 7: 03/30/20 16:40 03/30/20 17:44 Labs: Abnormal Lab Results - Last 24 Hours (Table) 03/30/20 03/30/20 03/30/20 Range/Units 16:40 16:40 17:13 Hgb 12.6 L (13.0-17.5) gm/dL APTT 21.4 L (22.0-30.0) sec Sodium (137-145) mmol/L Glucose (74-99) mg/dL POC Glucose (mg/dL) (75-99) mg/dL Hemoglobin A1c 12.6 H (4.0-6.0) % 03/30/20 03/30/20 03/31/20 Range/Units 17:44 20:42 07:19 Hgb (13.0-17.5) gm/dL APTT (22.0-30.0) sec Sodium 135 L (137-145) mmol/L Glucose 332 H (74-99) mg/dL POC Glucose (mg/dL) 360 H 163 H (75-99) mg/dL Hemoglobin A1c (4.0-6.0) % Thrombosis Risk Factor Assmnt - DVT/VTE Prophylaxis DVT/VTE Prophylaxis: Pharmacologic Prophylaxis ordered - Choose All That Apply Each Factor Represents 1 point: Age 41-60 years, Obesity (BMI >25) Other Risk Factors: Yes Each Risk Factor Represents 3 Points: History of DVT/PE Other congenital or acquired thrombophilia - If yes, enter type in comment: No Thrombosis Risk Factor Assessment Total Risk Factor Score: 5 Thrombosis Risk Factor Assessment Level: High Risk Assessment and Plan Assessment: Left great toe discoloration/dry gangrene due to diabetic peripheral vascular di sease. Peripheral vascular disease bilateral lower extremity left greater than right. Hyperglycemia with uncontrolled diabetes type 2 Diabetic peripheral neuropathy Uveitis and glaucoma Hyperlipidemia Hypertension Ongoing nicotine addiction and marijuana use Medication noncompliance Plan: Patient was started on empiric antibiotics of vancomycin and ceftriaxone. Continue with vancomycin for now. Restarted on Eliquis and Neurontin. Patient's left great toe and foot is cold compared to right and no warmth or discharge noted. No swelling. No evidence of infectious process. Arterial duplex was ordered. Appreciate vascular surgery recommendations. Anticipate discharge in the next 24 hours. Time with Patient: Greater than 30
[2020-04-01] MEDS: HYDROcodone/APAP 5-325MG 1 EACH TAB PO PRN ×3 (00:56→18:02)
[2020-04-01] MEDS: VANCOMYCIN 1,250 MG in SODIUM CHLORIDE 0.9% 250 ML IVPB SCH ×2 (03:58→21:24)
[2020-04-01 07:08] LABS: African American GFR (CKD) >90 (>60 ml/min/1.73 sqM); Anion Gap 4 mmol/L; Blood Urea Nitrogen 10 mg/dL (9-20); Calcium 9.1 mg/dL (8.4-10.2); Carbon Dioxide 28 mmol/L (22-30); Chloride 106 mmol/L (98-107); Glucose 75 mg/dL (74-99); Non-African American GFR(CKD) 79 (>60 ml/min/1.73 sqM); Potassium 3.5 mmol/L (3.5-5.1); Sodium 138 mmol/L (137-145)
[2020-04-01 07:21] LABS: Glucose,Whole Blood 100 mg/dL (75-99)
[2020-04-01] MEDS: INSULIN ASPART (NovoLOG) 100 UNIT/ML VIAL SQ SCH ×4 (07:27→20:55)
[2020-04-01] MEDS: GABAPENTIN 300 MG CAP PO SCH ×3 (09:18→20:58)
[2020-04-01] MEDS: lisinopriL 20 MG TAB PO SCH (09:18)
[2020-04-01] MEDS: APIXABAN 5 MG TAB PO SCH ×2 (09:19→20:55)
[2020-04-01] MEDS: GLIMEPIRIDE 2 MG TAB PO SCH (09:19)
[2020-04-01] MEDS: amLODIPine 10 MG TAB PO SCH (09:19)
[2020-04-01] MEDS: atenoloL 25 MG TAB PO SCH ×2 (09:19→20:55)
[2020-04-01] MEDS: DULoxetine HCL 20 MG CAPSULE.DR PO SCH (09:19)
--- NOTE | 2020-04-01 09:58 | P.PN ---
Subjective Progress Note Date: 04/01/20 Patient is evaluated today in reference to dry gangrenous changes of the left great toe. Patient remains clinically stable and voices no complaints. Examination revealed no changes to the gangrenous tip of the left great toe. Foot edema is absent. Toes are freely movable and nontender. Impression: Surgically stable. No surgical intervention is warranted or indicated this time. We'll continue to observe. There is a good chance of into new data healing underneath the eschar. Recommendation: I would like to see the patient in the outpatient setting in 10- 14 days. Objective - Vital Signs Vital signs: Vital Signs Temp 97.0 F L 04/01/20 04:06 Pulse 81 04/01/20 04:06 Resp 16 04/01/20 04:06 BP 152/70 04/01/20 04:06 Pulse Ox 99 04/01/20 04:06 Intake & Output 03/31/20 04/01/20 04/01/20 18:59 06:59 18:59 Intake Total 1140 Balance 1140 Weight 74.389 kg Intake: Intake, IV Titration 1140 Amount Sodium Chloride 0.9% 1, 1040 000 ml @ 130 mls/hr IV . Q7H42M [facility] Rx#:[id number] cefTRIAXone 1 gm In 100 Sodium Chloride 0.9% 50 ml @ 100 mls/hr IVPB Q24HR [facility] Rx#:[id number] Other: Voiding Method Toilet Toilet # Voids 1 1 - Labs CBC & Chem 7: 03/30/20 16:40 04/01/20 06:08 Labs: Abnormal Lab Results - Last 24 Hours (Table) 03/31/20 03/31/20 03/31/20 Range/Units 12:45 17:10 20:24 POC Glucose (mg/dL) 243 H 202 H 231 H (75-99) mg/dL 04/01/20 Range/Units 07:19 POC Glucose (mg/dL) 100 H (75-99) mg/dL Microbiology - Last 24 Hours (Table) 03/30/20 16:40 Blood Culture - Preliminary Blood No Growth after 24 hours
[2020-04-01 11:39] LABS: Glucose,Whole Blood 269 mg/dL (75-99)
[2020-04-01 17:15] LABS: Glucose,Whole Blood 243 mg/dL (75-99)
[2020-04-01 20:42] LABS: Glucose,Whole Blood 270 mg/dL (75-99)
[2020-04-01] MEDS: SIMVASTATIN 20 MG PO SCH (20:54)
[2020-04-01] MEDS: INSULIN DETEMIR (LEVEMIR) 100 UNIT/ML SYR SQ SCH (20:56)
--- NOTE | 2020-04-01 23:13 | P.PN ---
Subjective Progress Note Date: 04/01/20 Principal diagnosis: eft great toe discoloration/dry gangrene due to diabetic peripheral vascular disease. Patient is a 54-year-old male with a known history of hypertension, diabetes type 2, peripheral vascular disease and DVT in the left lower extremity as well as previous history of smoking and marijuana use daily came to ER due to complaints of left foot pain and great toe turning black for the past 1 week. Otherwise denied any complaints of fever or chills. Patient states that his leg always feels cold and painful. Patient had left femoral-popliteal bypass graft performed about 1 and half year ago. About 6 weeks ago patient presented to the hospital with a thrombosed graft with advanced arterial insufficiency/ischemia of the left lower extremity and foot. He did undergo thrombolysis of his bypass graft and required 4 compartment fasciotomy of the left calf. Since then patient has been ambulatory but complaining of ischemic rest pain and also has history of peripheral neuropathy. Patient was on Eliquis and Neurontin at home but has not been taking these medications. Patient is somewhat poor historian. Xray of Left foot showed correlate for cellulitis. Osteoarthritis. Peripheral vascular disease. EKG showed sinus bradycardia with left axis deviation. Laboratory data showed WBC 7.3, hemoglobin 12.6 and platelets 236 Sodium 135, potassium 4.5, chloride 101, BUN 18 and creatinine 1.25 blood sugar is 332 on admission 04/01/2020 Patient is currently lying in bed comfortably. No complaints of fever or chills. Patient states that there is some drainage noted from the left calf wound. Patient is currently antibiotics in the form of vancomycin. Pain is fairly controlled with Neurontin and [place] 5. Vascular surgery is following and recommends outpatient follow-up. Lower extremity arterial duplex was done. Report is pending. Blood sugar is better controlled. Titrate insulin dose. Anticipate discharge in the next 24 to 48 hours with more clinical improvement. Current medications reviewed. Objective - Vital Signs Vital signs: Vital Signs Temp 97.4 F L 04/01/20 11:56 Pulse 56 L 04/01/20 15:27 Resp 16 04/01/20 15:27 BP 179/86 04/01/20 11:56 Pulse Ox 98 04/01/20 11:56 Intake & Output 04/01/20 04/01/20 04/02/20 06:59 18:59 06:59 Intake Total 250 Balance 250 Intake: Intake, IV Titration 250 Amount Vancomycin 1,250 mg In 250 Sodium Chloride 0.9% 250 ml @ 125 mls/hr IVPB Q16H [facility] Rx#:[id number] Other: Voiding Method Toilet Toilet # Voids 1 1 - Exam PHYSICAL EXAMINATION: Patient is lying in the bed comfortably, no acute distress, awake alert and oriented.. HEENT: Normocephalic. Neck is supple. Pupils reactive. Nostrils clear. Oral cavity is moist. Ears reveal no drainage. Neck reveals no JVD, carotid bruits, or thyromegaly. CHEST EXAMINATION: Trachea is central. Symmetrical expansion. Lung zapien clear to auscultation and percussion. CARDIAC: Normal S1, S2 with no gallops. No murmurs ABDOMEN: Soft. Bowel sounds normal. No organomegaly. No abdominal bruits. Extremities: reveal no edema. Left great toe dry gangrene. Left foot slightly cool to touch compared to right. Left calf surgical wound is healing well. Minimal serosanguineous drainage.. No warmth of the leg. Neurologically awake, alert, oriented x3 with well-coordinated movements. No focal deficits noted Skin: No rash or skin lesions. Psychiatric: Coperative. Nonsuicidal Musculoskeletal: No joint swelling or deformity. Normal range of motion. - Labs CBC & Chem 7: 03/30/20 16:40 04/01/20 06:08 Labs: Abnormal Lab Results - Last 24 Hours (Table) 03/31/20 04/01/20 04/01/20 Range/Units 20:24 07:19 11:35 POC Glucose (mg/dL) 231 H 100 H 269 H (75-99) mg/dL 04/01/20 Range/Units 17:14 POC Glucose (mg/dL) 243 H (75-99) mg/dL Microbiology - Last 24 Hours (Table) 03/30/20 16:40 Blood Culture - Preliminary Blood No Growth after 48 hours Assessment and Plan Assessment: Left great toe discoloration/dry gangrene due to diabetic peripheral vascular disease. Left calf surgical site wound healing well. Peripheral vascular disease bilateral lower extremity left greater than right. Hyperglycemia with uncontrolled diabetes type 2 Diabetic peripheral neuropathy Uveitis and glaucoma Hyperlipidemia Hypertension Ongoing nicotine addiction and marijuana use Medication noncompliance Plan: Patient was started on empiric antibiotics of vancomycin and ceftriaxone. Continue with vancomycin for now. Restarted on Eliquis and Neurontin. Patient's left great toe and foot is cold compared to right and no warmth or discharge noted. No swelling. No evidence of infectious process. Arterial duplex was ordered. Appreciate vascular surgery recommendations. Anticipate discharge in the next 24 hours. Time with Patient: Greater than 30
[2020-04-02 05:05] VITALS: BP 151/71; PULSE 54; TEMP 98.1
[2020-04-02 07:22] LABS: Glucose,Whole Blood 87 mg/dL (75-99)
[2020-04-02] MEDS: amLODIPine 10 MG TAB PO SCH ×2 (07:46→07:47)
[2020-04-02] MEDS: HYDROcodone/APAP 5-325MG 1 EACH TAB PO PRN (07:46)
[2020-04-02] MEDS: lisinopriL 20 MG TAB PO SCH (07:47)
[2020-04-02] MEDS: APIXABAN 5 MG TAB PO SCH (07:47)
[2020-04-02] MEDS: atenoloL 25 MG TAB PO SCH (07:47)
[2020-04-02] MEDS: INSULIN ASPART (NovoLOG) 100 UNIT/ML VIAL SQ SCH ×2 (07:54→12:37)
[2020-04-02] MEDS: GABAPENTIN 300 MG CAP PO SCH (07:57)
[2020-04-02] MEDS: DULoxetine HCL 20 MG CAPSULE.DR PO SCH (07:57)
[2020-04-02] MEDS: GLIMEPIRIDE 2 MG TAB PO SCH (07:57)
[2020-04-02] MEDS ORDERED: VANCOMYCIN TROUGH DUE 1 EACH MISC MISCELLANE ONE (11:00)
[2020-04-02 12:11] LABS: Glucose,Whole Blood 240 mg/dL (75-99)
[2020-04-02] MEDS: VANCOMYCIN 1,250 MG in SODIUM CHLORIDE 0.9% 250 ML IVPB SCH (12:38)
--- NOTE | 2020-04-02 13:48 | P.DS ---
Providers Date of admission: 03/30/20 17:40 Expected date of discharge: 04/02/20 Attending physician: Ruben Rios Consults: 03/30/20 17:49 Consult Physician Routine Consulting Provider: Stephen Dennison Consult Reason/Comments: known Do you want consulting provider notified?: Yes Primary care physician: Demetrius Burnham [facility] Course: Final diagnosis Left great toe discoloration/dry gangrene due to diabetic peripheral vascular disease. Left calf surgical site wound healing well. Peripheral vascular disease bilateral lower extremity left greater than right. Hyperglycemia with uncontrolled diabetes type 2 Diabetic peripheral neuropathy Uveitis and glaucoma Hyperlipidemia Hypertension Ongoing nicotine addiction and marijuana use Medication noncompliance Discharge disposition Patient is being discharged in a stable condition with guarded prognosis to home. Patient will follow-up with Dr. Romo as well as cardiovascular surgery Dr. Dennison in the outpatient setting upon discharge as discussed and scheduled. Patient is to continue with oral Keflex 500 mg 3 times daily for the next 10 days. Total time taken is 35 minutes. History of present illness This is a 54-year-old male who was recently admitted with left foot pain and left great toe blackened discoloration and was being closely monitored. Patient recently underwent left femoral-popliteal bypass graft with Dr. Dennison and was reevaluated during hospitalization recommending outpatient follow-up in 10- 14 days. Approximately 6 weeks ago patient had a thrombosed graft with advanced arterial insufficiency/ischemia of the left lower extremity and underwent thrombolyze this of the bypass graft and also underwent compartment fasciotomy of the left calf. Patient was sent home on anticoagulant as well as IV antibiotic therapy in the outpatient setting. Patient states he has been noncompliant with medications. Patient was initiated on vancomycin and will continue with oral Keflex 500 mg 3 times daily for the next 10 days. Discussed with the patient at length about medication compliance and continuing to monitor blood sugars before meals at bedtime and keep a diary for primary care follow- up. Currently no reports of chest pain, shortness of breath, or palpitations. Patient is afebrile. No reports of nausea or vomiting and patient is tolerating diet. Patient will be discharged home today. On exam vital signs are stable. Temp is 98.1F, pulse is 54, respirations are 16, blood pressure is 151/71, oxygen saturation is 100 % on room air. Cardio S1, S2 are muffled. Respiratory system shows diminished breath sounds at the bases with no wheezing or rhonchi noted. Abdomen is soft and non-tender. Nervous system shows no focal deficits. Please refer to medication reconciliation sheet for a list of medications. Patient Condition at Discharge: Fair Plan - Discharge Summary Discharge Rx Participant: No New Discharge Prescriptions: New Cephalexin [Keflex] 500 mg PO Q8HR 10 Days #30 cap Continue amLODIPine [Norvasc] 10 mg PO DAILY Lisinopril [Zestril] 20 mg PO DAILY Atenolol 25 mg PO BID Glimepiride [Amaryl] 2 mg PO DAILY Simvastatin [Zocor] 20 mg PO HS Apixaban [Eliquis] 5 mg PO BID #60 tab DULoxetine HCL [Cymbalta] 20 mg PO DAILY 30 Days #30 capsule. INSULIN ASPART (NovoLOG) [NovoLOG (formulary)] 10 unit SQ TID-W/MEALS 30 Days #2 vial Gabapentin [Neurontin] 300 mg PO TID Insulin Glargine [Lantus] 55 unit SQ HS 30 Days #1 vial Discharge Medication List Atenolol 25 mg PO BID 09/11/15 [History] Lisinopril [Zestril] 20 mg PO DAILY 09/11/15 [History] amLODIPine [Norvasc] 10 mg PO DAILY 09/11/15 [History] Glimepiride [Amaryl] 2 mg PO DAILY 02/01/20 [History] Simvastatin [Zocor] 20 mg PO HS 02/01/20 [History] Apixaban [Eliquis] 5 mg PO BID #60 tab 02/10/20 [Rx] DULoxetine HCL [Cymbalta] 20 mg PO DAILY 30 Days #30 capsule. 02/27/20 [Rx] INSULIN ASPART (NovoLOG) [NovoLOG (formulary)] 10 unit SQ TID-W/MEALS 30 Days #2 vial 02/27/20 [Rx] Gabapentin [Neurontin] 300 mg PO TID 03/30/20 [History] Cephalexin [Keflex] 500 mg PO Q8HR 10 Days #30 cap 04/02/20 [Rx] Insulin Glargine [Lantus] 55 unit SQ HS 30 Days #1 vial 04/02/20 [Rx] Follow up Appointment(s)/Referral(s): Betito Romo MD [Primary Care Provider] - 04/09/20 2:00 pm Stephen Dennison DO [Doctor of Osteopathic Medicine] - 04/19/20 1:45 pm (10-14 days ) Patient Instructions/Handouts: Cephalexin (By mouth), Cellulitis (DC), Foot Care for People with Diabetes (DC), Type 2 Diabetes in Adults: New Diagnosis (DC), Peripheral Vascular Disease (DC), Gangrene (DC), Chronic Wounds (DC), Diabetes and Nutrition (DC) Activity/Diet/Wound Care/Special Instructions: Activity Limited until follow-up Continue current diet Continue to monitor blood sugars before meals at bedtime and treat accordingly Keep a diary of blood sugar readings for primary care follow-up Follow-up with primary care provider upon discharge Continue with antibiotics until finished Follow-up with vascular surgery in 10-14 days as discussed Discharge Disposition: HOME SELF-CARE
--- NOTE | 2020-04-04 12:18 | P.ARTDOP ---
Arterial Doppler LOWER EXTREMITY ARTERIAL DOPPLER: DATE OF SERVICE: 03/31/2020 Reason for study: Gangrene left great toe. Doppler waveforms: The right side his multiphasic throughout. The left side is blunted but multiphasic at the femoral and atypical below.. Pulse volume recording: To waveforms are normal on the right but is blunted on the left. Pressure gradients: None on the right. Gradients above the knee on the left.. Ankle-brachial indices: Greater than 1 on the right, 0.48 on the left.. Toe brachial indices: 0.74 on the right, not registered on the left Impression: The right side is normal. The left side shows at least moderate fem-pop disease. Clinical correlation recommended with vascular surgery consultation..
== END 2020-04-02 16:41 | disposition home or self-care (01) | DRG 300 ==
LOC: EC 14:47 → 5NMEDONC 17:40
PROVIDERS: ADMIT Hospitalist; ATTEND Hospitalist
DX: E11.52 Type 2 diabetes mellitus with diabetic peripheral angiopathy with gangrene (principal); L03.116 Cellulitis of left lower limb; I70.262 Atherosclerosis of native arteries of extremities with gangrene, left leg; H20.9 Unspecified iridocyclitis; E11.42 Type 2 diabetes mellitus with diabetic polyneuropathy; Z11.59 Encounter for screening for other viral diseases; E11.65 Type 2 diabetes mellitus with hyperglycemia; Z79.4 Long term (current) use of insulin; I10 Essential (primary) hypertension; E78.5 Hyperlipidemia, unspecified; H40.9 Unspecified glaucoma; M19.90 Unspecified osteoarthritis, unspecified site; R00.1 Bradycardia, unspecified; F17.200 Nicotine dependence, unspecified, uncomplicated; T42.6X6A Underdosing of other antiepileptic and sedative-hypnotic drugs, initial encounter; T45.516A Underdosing of anticoagulants, initial encounter; I25.2 Old myocardial infarction; Z79.899 Other long term (current) drug therapy; Z79.01 Long term (current) use of anticoagulants; Z91.128 Patient's intentional underdosing of medication regimen for other reason; Z86.14 Personal history of Methicillin resistant Staphylococcus aureus infection; Z98.890 Other specified postprocedural states; Z96.89 Presence of other specified functional implants; Z86.718 Personal history of other venous thrombosis and embolism; Z88.6 Allergy status to analgesic agent; Z88.8 Allergy status to other drugs, medicaments and biological substances
CPT/HCPCS: 36415; 80048; 80053; 80202; 83036; 83605; 83735; 84100; 85025; 85610; 85730; 87040; 93005; 93923; 96361; 96365; 99285

== ENCOUNTER 2020-04-25 12:57 | Inpatient (IN) | payer MEDICARE, OTHER ==
[2020-04-25] MEDS ORDERED: SODIUM CHLORIDE 0.9% 1,000 ML IV ONE (13:23)
[2020-04-25] MEDS ORDERED: PIPERACILLIN-TAZOBACTAM 3.375 GM in SODIUM CHLORIDE 0.9% 100 ML IVPB STA (13:23)
[2020-04-25] MEDS ORDERED: VANCOMYCIN IV PER PHARMACY 1 EACH MISC MISCELLANE PRN (13:23)
[2020-04-25] MEDS ORDERED: HYDROcodone/APAP 5-325MG 1 EACH TAB PO STA (13:24)
[2020-04-25] MEDS ORDERED: VANCOMYCIN 1,250 MG in SODIUM CHLORIDE 0.9% 250 ML IVPB STA (13:27)
--- NOTE | 2020-04-25 13:38 | ED ---
General Adult HPI - General Source: patient, RN notes reviewed, old records reviewed Mode of arrival: ambulatory Limitations: no limitations <Lilian Norman - Last Filed: 04/25/20 14:30> <Sunil Laboy - Last Filed: 04/25/20 15:51> - General Chief complaint: Wound/Laceration Stated complaint: lt foot diabetic would Time Seen by Provider: 04/25/20 13:17 - History of Present Illness Initial comments: Patient is a 54-year-old male who presents emergency department today with chief complaint of the diabetic wound over his left great toe that has been present for 3 months. He reports he's had increased pain swelling and irritation to the left great toe. He reports he's had black appearance to the great toe for the past few months as well. He is not on any antibiotics currently. He reports some pain with range of motion of the toe. Patient states he's been seen by Dr. Garnett did vascular grafting on the lower left extremity a few months ago. Patient states that he's had no fevers or chills. (Lilian Norman) - Related Data Home Medications Medication Instructions Recorded Confirmed amLODIPine [Norvasc] 10 mg PO DAILY 09/11/15 04/25/20 atenoloL [Atenolol] 25 mg PO BID 09/11/15 04/25/20 lisinopriL [Zestril] 20 mg PO DAILY 09/11/15 04/25/20 Glimepiride [Amaryl] 2 mg PO DAILY 02/01/20 04/25/20 Simvastatin [Zocor] 20 mg PO HS 02/01/20 04/25/20 Famotidine 40 mg PO DAILY 04/25/20 04/25/20 Gabapentin 600 mg PO TID 04/25/20 04/25/20 HYDROcodone/APAP 5-325MG [[place] 1 tab PO BID PRN 04/25/20 04/25/20 5-325] Previous Rx's Medication Instructions Recorded Apixaban [Eliquis] 5 mg PO BID #60 tab 02/10/20 DULoxetine HCL [Cymbalta] 20 mg PO DAILY 30 Days #30 02/27/20 capsule. INSULIN ASPART (NovoLOG) [NovoLOG 10 unit SQ TID-W/MEALS 30 Days #2 02/27/20 (formulary)] vial Insulin Glargine [Lantus] 55 unit SQ HS 30 Days #1 vial 04/02/20 Allergies Allergy/AdvReac Type Severity Reaction Status Date / Time atorvastatin [From Lipitor] Allergy Swelling Verified 04/25/20 13:02 ibuprofen Allergy Swelling Verified 04/25/20 13:02 pregabalin [From Lyrica] Allergy Swelling Verified 04/25/20 13:02 Review of Systems ROS Other: All systems not noted in ROS Statement are negative. <Lilian Norman - Last Filed: 04/25/20 14:30> ROS Other: All systems not noted in ROS Statement are negative. <Sunil Laboy - Last Filed: 04/25/20 15:51> ROS Statement: Those systems with pertinent positive or pertinent negative responses have been documented in the HPI. Past Medical History Past Medical History: Diabetes Mellitus, Hyperlipidemia, Hypertension, Vascular Disorder Additional Past Medical History / Comment(s): uvitis glaucoma, PVD, dvt to lower left leg Last Myocardial Infarction Date:: 2005 History of Any Multi-Drug Resistant Organisms: MRSA Date of last positivie culture/infection: 02/20/20 MDRO Source:: left leg Past Surgical History: Hernia Repair, Orthopedic Surgery Additional Past Surgical History / Comment(s): aortgram w/ runnoff, eye surg implant, bilateral knee SX, left vein stripping in 02/2020 x2 Past Anesthesia/Blood Transfusion Reactions: No Reported Reaction Additional Past Anesthesia/Blood Transfusion Reaction / Comment(s): no hx blood transfusion Past Psychological History: No Psychological Hx Reported Smoking Status: Never smoker Past Alcohol Use History: Rare Past Drug Use History: Marijuana - Past Family History Mother History Unknown: Yes <Lilian Norman - Last Filed: 04/25/20 14:30> General Exam Limitations: no limitations General appearance: alert, in no apparent distress Head exam: Present: atraumatic, normocephalic, normal inspection Eye exam: Present: normal appearance, PERRL, EOMI. Absent: scleral icterus, conjunctival injection, periorbital swelling ENT exam: Present: normal exam, mucous membranes moist Neck exam: Present: normal inspection. Absent: tenderness, meningismus, lymphadenopathy Respiratory exam: Present: normal lung sounds bilaterally. Absent: respiratory distress, wheezes, rales, rhonchi, stridor Cardiovascular Exam: Present: regular rate, normal rhythm, normal heart sounds. Absent: systolic murmur, diastolic murmur, rubs, gallop, clicks GI/Abdominal exam: Present: soft, normal bowel sounds. Absent: distended, tenderness, guarding, rebound, rigid Extremities exam: Present: normal inspection, full ROM, normal capillary refill. Absent: tenderness, pedal edema, joint swelling, calf tenderness Left Lower Leg exam: Present: normal inspection, full ROM Ankle exam: Present: normal inspection, full ROM Foot/Toe exam: Present: full ROM. Absent: normal inspection (Patient has evidence of black necrotic-appearing great toe. Edges are well demarcated and there is no evidence of wet gangrenous changes. ) Neurovascular tendon exam: Present: no vascular compromise (Patient has diminutive but palpable dorsalis pedis pulse) Gait: observed and normal Back exam: Present: normal inspection Neurological exam: Present: alert, oriented X3, CN II-XII intact Psychiatric exam: Present: normal affect, normal mood Skin exam: Present: warm, dry, intact, normal color. Absent: rash <Lilian Norman - Last Filed: 04/25/20 14:30> - General Exam Comments Initial Comments: 54-year-old male. Patient is alert and oriented. No significant distress. (Lilian Norman) Course <Lilian Norman - Last Filed: 04/25/20 14:30> Vital Signs 04/25/20 12:59 Temperature 98.1 F Pulse Rate 68 Respiratory 18 Rate Blood Pressure 135/85 O2 Sat by Pulse 100 Oximetry - Reevaluation(s) Reevaluation #1: 04/25/20 14:31 Pt case transferred to Dr. Laboy (Lilian Norman) Disposition <Lilian Norman - Last Filed: 04/25/20 14:30> Is patient prescribed a controlled substance at d/c from ED?: No Decision to Admit Reason: Admit from EC Decision Date: 04/25/20 Decision Time: 15:51 <Sunil Laboy - Last Filed: 04/25/20 15:51> Clinical Impression: Gangrene of toe of left foot, Cellulitis of left foot Disposition: ADMITTED IP TO THIS HOSP Condition: Stable Referrals: Betito Romo MD [Primary Care Provider] - 1-2 days
--- NOTE | 2020-04-25 14:39 | XR ---
EXAMINATION TYPE: XR foot complete LT DATE OF EXAM: 04/25/2020 CLINICAL HISTORY: Open wound first toe with pain and swelling. Gangrene per order. TECHNIQUE: Frontal, lateral, and oblique images of the left foot are obtained. COMPARISON: Left foot x-ray March 30, 2020. FINDINGS: There is no acute fracture/dislocation evident in the left foot. No suspicious new cortica l destruction or abnormal periosteal reaction. Mild to moderate narrowing and mild spurring base of f irst metatarsal. Hallux valgus positioning first metatarsophalangeal joint with mild to moderate narr owing. Mild diffuse subcutaneous edema. IMPRESSION: As above. No significant change from prior study. No convincing radiographic evidence for new acute osteomyelitis.
[2020-04-25] MEDS ORDERED: NALOXONE 0.4 MG/ML 1 ML VIAL IV PRN (15:49)
[2020-04-25] MEDS ORDERED: LORazepam 0.5 MG TAB PO PRN (16:24)
[2020-04-25 16:50] LABS: Basophils % (A) 1 %; Eosinophils # (A) 0.2 k/uL (0-0.7); Eosinophils % (A) 3 %; HCT 37.5 % (39.0-53.0); Lymphocytes # (A) 2.6 k/uL (1.0-4.8); Lymphocytes % (A) 36 %; MCH 28.2 pg (25.0-35.0); MCV 88.2 fL (80.0-100.0); Mean Platelet Volume 7.4; Monocytes # (A) 0.5 k/uL (0-1.0); Monocytes % (A) 7 %; Neutrophils # (A) 3.7 k/uL (1.3-7.7); Neutrophils % (A) 51 %; Platelet Count 252 k/uL (150-450); RBC 4.25 m/uL (4.30-5.90); RDW 13.3 % (11.5-15.5); WBC 7.3 k/uL (3.8-10.6)
[2020-04-25 17:08] LABS: ALT 20 U/L (4-49); AST 25 U/L (17-59); African American GFR (CKD) >90 (>60 ml/min/1.73 sqM); Albumin 3.9 g/dL (3.5-5.0); Alkaline Phosphatase 59 U/L (38-126); Anion Gap 7 mmol/L; Blood Urea Nitrogen 14 mg/dL (9-20); Calcium 9.5 mg/dL (8.4-10.2); Carbon Dioxide 27 mmol/L (22-30); Chloride 103 mmol/L (98-107); Glucose 85 mg/dL (74-99); Non-African American GFR(CKD) 85 (>60 ml/min/1.73 sqM); Potassium 4.1 mmol/L (3.5-5.1); Sodium 137 mmol/L (137-145); Total Bilirubin 0.6 mg/dL (0.2-1.3); Total Protein 6.7 g/dL (6.3-8.2)
[2020-04-25 17:15] LABS: INR 0.9 (<1.2); Partial Thromboplastin Time 22.7 sec (22.0-30.0); Prothrombin Time 9.9 sec (9.0-12.0)
[2020-04-25 17:45] LABS: Glucose,Whole Blood 123 mg/dL (75-99)
[2020-04-25] MEDS: INSULIN ASPART (NovoLOG) 100 UNIT/ML VIAL SQ SCH ×3 (17:47→20:21)
[2020-04-25] MEDS: HYDROmorphone 0.5 MG/0.5 ML SYRINGE IVP PRN ×2 (17:50→22:25)
[2020-04-25 18:14] LABS: Appearance,Urine Clear (Clear); Bilirubin,Urine Negative (Negative); Blood,Urine Negative (Negative); Color,Urine Light Yellow; Glucose,Urine (UA) 3+ (Negative); Ketones,Urine Negative (Negative); Leukocyte Esterase,Urine Negative (Negative); Nitrite,Urine Negative (Negative); PH, Urine 6.5 (5.0-8.0); Protein,Urine Negative (Negative); Specific Gravity,Urine 1.006 (1.001-1.035); Urobilinogen,Urine <2.0 mg/dL (<2.0)
--- NOTE | 2020-04-25 19:45 | HP ---
HISTORY AND PHYSICAL DATE OF SERVICE: 04/25/2020 CHIEF COMPLAINT: Left great toe ischemic toe and ulcer and pain. HISTORY OF PRESENT ILLNESS: This 54-year-old gentleman with a past medical history of multiple medical problems, including diabetes mellitus, hypertension, hyperlipidemia, history of vascular disorder, history of peripheral vascular disease, glaucoma, being followed by Dr. Romo in the outpatient setting, was having gangrene of the left great toe for the last 3 months. The patient apparently was noncompliant with medications and currently the patient is complaining of severe pain, some swelling, some irritation and black appearance, and the patient is concerned. The patient came to [facility] and was admitted for further evaluation and treatment. The patient has seen Dr. Garnett previously. The patient underwent revascularization procedure a few months ago. There is no history of any fever, rigor or chills. No history of headache, loss of consciousness, seizures at this time. PAST MEDICAL HISTORY: History of diabetes mellitus, hypertension, hyperlipidemia, history of glaucoma, history of hernia repair. HOME MEDICATIONS: Home medications prior to admission include: 1. Zestril 20 mg p.o. daily. 2. Zocor 20 mg at bedtime. 3. Lantus 50 units subcutaneously at bedtime. 4. [place] 5 mg b.i.d. p.r.n. 5. Pepcid 40 mg daily. 6. Atenolol 25 mg b.i.d. 7. Norvasc 10 mg daily. 8. NovoLog 10 units t.i.d. with meals. 9. Amaryl 2 mg p.o. daily. 10.Gabapentin 600 mg t.i.d. 11.Cymbalta 20 mg daily. 12.Eliquis 5 mg p.o. b.i.d. ALLERGIES: LIPITOR, IBUPROFEN, LYRICA. FAMILY HISTORY: No history of heart disease or strokes in the family. SOCIAL HISTORY: History of smoking. History of THC. REVIEW OF SYSTEMS: ENT: No diminished hearing. No diminished vision. CARDIOVASCULAR SYSTEM: No angina, palpitations. RESPIRATORY SYSTEM: No cough, hemoptysis. GI: As mentioned earlier. : No dysuria or retention. NERVOUS SYSTEM: No numbness, weakness. ALLERGY/IMMUNOLOGY: No asthma, hayfever. MUSCULOSKELETAL: As mentioned earlier. HEMATOLOGY/ONCOLOGY: No history of anemia. ENDOCRINE: Diabetes mellitus. CONSTITUTIONAL: As mentioned earlier. DERMATOLOGY: Negative. RHEUMATOLOGY: Negative. PSYCHIATRY: As mentioned earlier. PHYSICAL EXAMINATION: Patient alert and oriented x3. Pulse is 68, blood pressure 135/85, respiration 18, temperature 98.1, pulse ox 100% on room air. HEENT: Conjunctivae normal. Oral mucosa moist. NECK: No jugular venous distention. No carotid bruit. No lymph node enlargement. CARDIOVASCULAR SYSTEM: S1, S2 muffled. RESPIRATORY SYSTEM: Breath sounds diminished at the bases. No rhonchi. No crackles. ABDOMEN: Soft, non-tender. LEGS: Significant diminished pulses on the left foot. Also gangrene seen in the left toe with some demarcation and some tenderness. Not much erythema noted. NERVOUS SYSTEM: Higher functions as mentioned earlier. Moves all 4 limbs. Some minimal sensory changes. LYMPHATICS: No lymph node palpable in neck, axillae or groin. JOINTS: No active deforming arthropathy. LABS: Labs are not available. ASSESSMENT: 1. Diabetic ulcer and gangrene of the left big toe with failure of outpatient treatment with severe pain. 2. Peripheral vascular disease and diabetes mellitus, type 2. 3. History of noncompliance. 4. Hypertension. 5. Hyperlipidemia. 7. Glaucoma. 8. History of methicillin-resistant Staphylococcus aeruginosa. 9. History of hernia repair. 10.History of degenerative joint disease. 11.History of tetrahydrocannabinol. 12.FULL CODE. RECOMMENDATIONS AND DISCUSSION: In this 54-year-old gentleman who presented with multiple complex medical issues, we will monitor the patient closely, continue the current medications, continue with symptomatic treatment. Otherwise at this time broad-spectrum IV antibiotics. Pain medications. Vascular surgery consultation. Infectious disease consultation. Guarded prognosis because of multiple complex medical issues. Further recommendations to follow. A copy of this dictation is being forwarded to Dr. Romo, who is the primary physician. MMODL / IJN: [id number] / MTDShira
[2020-04-25 20:13] LABS: Glucose,Whole Blood 339 mg/dL (75-99)
[2020-04-25] MEDS: INSULIN DETEMIR (LEVEMIR) 100 UNIT/ML SYR SQ SCH (20:21)
[2020-04-25] MEDS: APIXABAN 5 MG TAB PO SCH (20:22)
[2020-04-25] MEDS: atenoloL 25 MG TAB PO SCH (20:22)
[2020-04-25] MEDS: SIMVASTATIN 20 MG PO SCH (20:22)
[2020-04-25] MEDS: HYDROcodone/APAP 5-325MG 1 EACH TAB PO PRN (20:26)
[2020-04-25] MEDS: GABAPENTIN 300 MG CAP PO SCH (21:11)
[2020-04-26] MEDS: PIPERACILLIN-TAZOBACTAM 3.375 GM in SODIUM CHLORIDE 0.9% 100 ML IVPB SCH ×4 (00:05→23:19)
[2020-04-26] MEDS: TEMAZEPAM 15 MG CAP PO PRN (00:08)
[2020-04-26] MEDS: VANCOMYCIN 1,250 MG in SODIUM CHLORIDE 0.9% 250 ML IVPB SCH ×2 (04:52→17:12)
[2020-04-26 07:37] LABS: Glucose,Whole Blood 77 mg/dL (75-99)
[2020-04-26 08:04] LABS: Basophils % (A) 1 %; Eosinophils # (A) 0.2 k/uL (0-0.7); Eosinophils % (A) 4 %; HCT 42.5 % (39.0-53.0); HGB 13.5 gm/dL (13.0-17.5); Lymphocytes # (A) 2.4 k/uL (1.0-4.8); Lymphocytes % (A) 43 %; MCH 28.1 pg (25.0-35.0); MCHC 31.7 g/dL (31.0-37.0); MCV 88.6 fL (80.0-100.0); Mean Platelet Volume 7.4; Monocytes # (A) 0.3 k/uL (0-1.0); Monocytes % (A) 6 %; Neutrophils # (A) 2.4 k/uL (1.3-7.7); Neutrophils % (A) 44 %; Platelet Count 253 k/uL (150-450); RDW 13.7 % (11.5-15.5); WBC 5.5 k/uL (3.8-10.6)
[2020-04-26] MEDS: INSULIN ASPART (NovoLOG) 100 UNIT/ML VIAL SQ SCH ×7 (08:08→20:03)
[2020-04-26 08:17] LABS: African American GFR (CKD) >90 (>60 ml/min/1.73 sqM); Anion Gap 7 mmol/L; Blood Urea Nitrogen 10 mg/dL (9-20); Calcium 9.6 mg/dL (8.4-10.2); Carbon Dioxide 28 mmol/L (22-30); Chloride 105 mmol/L (98-107); Glucose 68 mg/dL (74-99); Non-African American GFR(CKD) 90 (>60 ml/min/1.73 sqM); Potassium 4.4 mmol/L (3.5-5.1); Sodium 140 mmol/L (137-145)
[2020-04-26] MEDS: PANTOPRAZOLE 40 MG TABLET PO SCH (08:36)
[2020-04-26] MEDS: FAMOTIDINE 20 MG TAB PO SCH (10:31)
[2020-04-26] MEDS: atenoloL 25 MG TAB PO SCH ×2 (10:32→21:31)
[2020-04-26] MEDS: lisinopriL 20 MG TAB PO SCH (10:32)
[2020-04-26] MEDS: GABAPENTIN 300 MG CAP PO SCH ×4 (10:32→21:36)
[2020-04-26] MEDS: APIXABAN 5 MG TAB PO SCH ×2 (10:32→21:35)
[2020-04-26] MEDS: DULoxetine HCL 20 MG CAPSULE.DR PO SCH (10:33)
[2020-04-26] MEDS: amLODIPine 10 MG TAB PO SCH (10:33)
[2020-04-26] MEDS: GLIMEPIRIDE 2 MG TAB PO SCH (10:37)
[2020-04-26 11:36] LABS: Glucose,Whole Blood 109 mg/dL (75-99)
--- NOTE | 2020-04-26 12:53 | P.GSCN ---
History of Present Illness Consult date: 04/26/20 Reason for Consult: Peripheral arterial disease, Dry gangrene of left great toe History of present illness: This is a 54-year-old -[place] male well-known to Dr. Garnett. The patient has a history of peripheral arterial disease with a prior left femoral popliteal bypass graft that was performed 1-2 years ago. Approximately 8 weeks ago he presented to the hospital with a thrombosed graft with advanced arterial insufficiency and ischemia of the left lower extremity and foot. He did undergo thrombolyze of the bypass graft and required a 4 compartment fasciotomy of the left calf. Those incisions have since healed and patient has been ambulatory, however states that the pain to the left great toe has worsened. He is unable to wear shoe. He denies any drainage, odor, fevers or chills. Patient was scheduled to have an appointment with Dr. Garnett last week, however there was miscommunication and he had missed that appointment. He is scheduled next week May [address] Garnett for follow-up. His last admission was approximately 2 weeks ago for continued pain in the left great toe, a lower extremity arterial Doppler was completed showing right lower extremity with normal flow. Left side shows at least moderate femoral-popliteal disease. He states his current medication is not helping with the left great toe pain. An x-ray of the left foot was completed that shows no acute fracture or dislocation evident in the left foot. No suspicious new cortical destruction or abnormal periosteal reaction. Mild to moderate narrowing and mild spurring base of first metatarsal. Hallux valgus positioning first medical pharyngeal joint with mild to moderate narrowing. Mild diffuse subcutaneous edema. There is no convincing evidence for new acute osteomyelitis. Review of Systems A 14 point review of systems was completed and all pertinent positives and negatives as stated in the HPI Past Medical History Past Medical History: Diabetes Mellitus, Hyperlipidemia, Hypertension, Vascular Disorder Additional Past Medical History / Comment(s): uvitis glaucoma, PVD, dvt to lower left leg Last Myocardial Infarction Date:: 2005 History of Any Multi-Drug Resistant Organisms: MRSA Year Discovered:: 02/20/20 MDRO Source:: left leg Past Surgical History: Hernia Repair, Orthopedic Surgery Additional Past Surgical History / Comment(s): aortgram w/ runnoff, eye surg implant, bilateral knee SX, left vein stripping in 02/2020 x2 Past Anesthesia/Blood Transfusion Reactions: No Reported Reaction Additional Past Anesthesia/Blood Transfusion Reaction / Comm: no hx blood transfusion Past Psychological History: No Psychological Hx Reported Smoking Status: Never smoker Past Alcohol Use History: Rare Additional Past Alcohol Use History / Comment(s): quit smoking at 26,started at age 17,<1ppd Past Drug Use History: Marijuana Additional Drug Use History / Comment(s): uses marijuana daily - Past Family History Mother History Unknown: Yes Medications and Allergies Home Medications Medication Instructions Recorded Confirmed Type amLODIPine [Norvasc] 10 mg PO DAILY 09/11/15 04/25/20 History atenoloL [Atenolol] 25 mg PO BID 09/11/15 04/25/20 History lisinopriL [Zestril] 20 mg PO DAILY 09/11/15 04/25/20 History Glimepiride [Amaryl] 2 mg PO DAILY 02/01/20 04/25/20 History Simvastatin [Zocor] 20 mg PO HS 02/01/20 04/25/20 History DULoxetine HCL [Cymbalta] 20 mg PO DAILY 30 Days #30 02/27/20 04/25/20 Rx capsule. INSULIN ASPART (NovoLOG) [NovoLOG 10 unit SQ TID-W/MEALS 30 Days #2 02/27/20 04/25/20 Rx (formulary)] vial Insulin Glargine [Lantus] 55 unit SQ HS 30 Days #1 vial 04/02/20 04/25/20 Rx Famotidine 40 mg PO DAILY 04/25/20 04/25/20 History HYDROcodone/APAP 5-325MG [[place] 1 tab PO BID PRN 04/25/20 04/25/20 History 5-325] Apixaban [Eliquis] 5 mg PO BID #60 tab 04/26/20 Rx Gabapentin [Neurontin] 900 mg PO TID 30 Days #90 cap 04/26/20 Rx Allergies Allergy/AdvReac Type Severity Reaction Status Date / Time atorvastatin [From Lipitor] Allergy Swelling Verified 04/25/20 13:02 ibuprofen Allergy Swelling Verified 04/25/20 13:02 pregabalin [From Lyrica] Allergy Swelling Verified 04/25/20 13:02 Surgical - Exam Vital Signs Temp Pulse Resp BP Pulse Ox 98.1 F 68 18 135/85 100 04/25/20 12:59 04/25/20 12:59 04/25/20 12:59 04/25/20 12:59 04/25/20 12:59 General appearance: The patient is alert, oriented, in no acute distress. HET: Head is normocephalic and atraumatic. Neck: Supple Heart: S1 S2. Regular rate and rhythm. Lungs: No crackles or wheezes are heard. Abdomen: Soft, nontender. Extremities: Bilateral lower extremities without edema. Palpable bilateral femoral pulses. Right palpable DP and PT pulses. Left DP and PT pulses nonpalpable. Left PT monophasic Doppler signal. Unable to obatin left DP signal. Left great toe with dry gangrene to the tip of toe with mild swelling. There is no drainage or foul odor. He can freely move feet and toes bilaterally. Neurological: No focal deficits. Strength and sensation are grossly intact. Results X-ray of left foot shows no evidence of osteomyelitis - Labs 04/26/20 07:30 04/26/20 07:30 Abnormal Lab Results - Last 24 Hours (Table) 04/25/20 04/25/20 04/25/20 Range/Units 16:26 16:26 17:43 RBC 4.25 L (4.30-5.90) m/uL Hgb 12.0 L (13.0-17.5) gm/dL Hct 37.5 L (39.0-53.0) % Glucose (74-99) mg/dL POC Glucose (mg/dL) 123 H (75-99) mg/dL Urine Glucose (UA) 3+ H (Negative) 04/25/20 04/26/20 04/26/20 Range/Units 20:11 07:30 11:34 RBC (4.30-5.90) m/uL Hgb (13.0-17.5) gm/dL Hct (39.0-53.0) % Glucose 68 L (74-99) mg/dL POC Glucose (mg/dL) 339 H 109 H (75-99) mg/dL Urine Glucose (UA) (Negative) Diabetes panel 04/25/20 04/26/20 Range/Units 16:26 07:30 Sodium 137 140 (137-145) mmol/L Potassium 4.1 4.4 (3.5-5.1) mmol/L Chloride 103 105 (98-107) mmol/L Carbon Dioxide 27 28 (22-30) mmol/L BUN 14 10 (9-20) mg/dL Creatinine 0.99 0.95 (0.66-1.25) mg/dL Glucose 85 68 L (74-99) mg/dL Calcium 9.5 9.6 (8.4-10.2) mg/dL AST 25 (17-59) U/L ALT 20 (4-49) U/L Alkaline Phosphatase 59 (38-126) U/L Total Protein 6.7 (6.3-8.2) g/dL Albumin 3.9 (3.5-5.0) g/dL Calcium panel 04/25/20 04/26/20 Range/Units 16:26 07:30 Calcium 9.5 9.6 (8.4-10.2) mg/dL Albumin 3.9 (3.5-5.0) g/dL Pituitary panel 04/25/20 04/26/20 Range/Units 16:26 07:30 Sodium 137 140 (137-145) mmol/L Potassium 4.1 4.4 (3.5-5.1) mmol/L Chloride 103 105 (98-107) mmol/L Carbon Dioxide 27 28 (22-30) mmol/L BUN 14 10 (9-20) mg/dL Creatinine 0.99 0.95 (0.66-1.25) mg/dL Glucose 85 68 L (74-99) mg/dL Calcium 9.5 9.6 (8.4-10.2) mg/dL Adrenal panel 04/25/20 04/26/20 Range/Units 16:26 07:30 Sodium 137 140 (137-145) mmol/L Potassium 4.1 4.4 (3.5-5.1) mmol/L Chloride 103 105 (98-107) mmol/L Carbon Dioxide 27 28 (22-30) mmol/L BUN 14 10 (9-20) mg/dL Creatinine 0.99 0.95 (0.66-1.25) mg/dL Glucose 85 68 L (74-99) mg/dL Calcium 9.5 9.6 (8.4-10.2) mg/dL Total Bilirubin 0.6 (0.2-1.3) mg/dL AST 25 (17-59) U/L ALT 20 (4-49) U/L Alkaline Phosphatase 59 (38-126) U/L Total Protein 6.7 (6.3-8.2) g/dL Albumin 3.9 (3.5-5.0) g/dL Assessment and Plan Assessment: 1. History of bilateral lower extremity arthrosclerotic/diabetic vascular disease, more pronounced left than on the right 2. Dry gangrenous changes of the distal tip of the left great toe, no evidence of wet gangrene 3. Diabetes mellitus 4. Hypertension 5. Tobacco abuse 6. Diabetic neuropathy Plan: Patient is instructed to restart his Eliquis, prescription will be sent in. Will increase gabapentin to 900 mg 3 times a day with new prescription given to patient. There is no indication for any vascular surgical intervention at this time. Patient may be discharged home. There is no evidence of osteomyelitis or wet gangrene. Patient is to follow-up with Dr. Garnett next week in the office. Further recommendations to follow. The above dictated assessment and findings were discussed with Dr. Hess. The impression and plan of care have been directed as dictated.
[2020-04-26 15:31] VITALS: RESP 16
[2020-04-26 16:51] LABS: Glucose,Whole Blood 283 mg/dL (75-99)
--- NOTE | 2020-04-26 17:28 | PN ---
PROGRESS NOTE DATE OF SERVICE: 04/26/2020 This is a 54-year-old gentleman with left great toe, ischemic toe, possible dry gangrene as well. Severe pain is being closely monitored. No chest pain. No palpitations. No fever. The patient was seen by Dr. Hess, who recommended outpatient followup. No chest pain. No palpitations. No fever. PHYSICAL EXAMINATION: Alert and oriented x3, the pulse is 59, blood pressure 142/80, respirations 16, temperature is 98.2, pulse ox 98% on room air. HEENT: Conjunctivae normal. NECK: No jugular venous distension. CARDIOVASCULAR SYSTEM: S1, S2, muffled. RESPIRATORY: Breath sounds diminished at the bases, a few scattered rhonchi, no crackles. ABDOMEN: Soft, nontender. LEGS: Significant dry gangrene. Pulses diminished left side. NERVOUS SYSTEM: No focal deficits. LABS: CBC within normal limits and glucose 109 and 68. ASSESSMENT: 1. Diabetic ulcer and dry gangrene of the left big toe with failure of outpatient treatment with severe pain. 2. Peripheral vascular disease secondary to diabetes mellitus type 2. 3. Diabetes mellitus type 2, uncontrolled with hyperglycemia. 4. History of noncompliance. 5. Hypertension. 6. Hyperlipidemia. 7. Glaucoma. 8. History of MRSA. 9. History of hernia repair. 10.History of degenerative joint disease. 11.History of THC. 12.FULL CODE. RECOMMENDATION: Recommend to continue current management and symptomatic treatment with antibiotics. Closely follow with Infectious Disease and Vascular Surgery. Pain management. Symptomatic treatment. Guarded prognosis because of multiple complex medical issues. Further recommendations to follow. MMODL / IJN: [id number] /
[2020-04-26 20:04] LABS: Glucose,Whole Blood 81 mg/dL (75-99)
[2020-04-26] MEDS: INSULIN DETEMIR (LEVEMIR) 100 UNIT/ML SYR SQ SCH (20:05)
[2020-04-26] MEDS: SIMVASTATIN 20 MG PO SCH (21:29)
--- NOTE | 2020-04-27 00:18 | P.CONS ---
History of Present Illness - Reason for Consult Consult date: 04/26/20 Left big toe gangrene and cellulitis Requesting physician: Ruben Rios - Chief Complaint Left big toe pain x weeks - History of Present Illness Patient is a 54-year-old -[place] mean with significant peripheral arterial disease in this patient who did have a history of left femoral popliteal bypass graft was in about a year ago about 2 months ago the patient presented to [facility] with a thrombosed graft with advanced continued insufficiency skin of the left lower extremity patient underwent thrombolysis of the bypass graft and required 4 compartment fasciotomy of the left PATIENT subsequently was admitted at this facility in beginning of February 2020 with left lower extremity wound infection and significant cellulitis culture were positive for MRSA and group a strep patient did get a PICC line and was advised a two-week course of IV vancomycin unfortunately the patient was lost to follow-up in July follow-up in the office because subsequent has been discontinued and the patient currently off antibiotic therapy. Patient presenting to the [facility] ER yesterday with the chief complaints of worsening pain to his left big toe and blackish discoloration of the tip of the big toe which has been there for a few months now patient describing his pain to be throbbing almost unable to obtain an worse if he touches with anything no associated swelling or redness patient left leg wound is currently healed patient denies having any fever or chills and no fevers recorded on presentation to the hospital his white count has been normal patient did have x-rays of the left foot which did not show any features suggestive of osteomyelitis patient was started on vancomycin and Zosyn and infectious disease was consulted for further management of antibiotic therapy Review of Systems Positive point has been mentioned in the HPI rest of the systems are negative Past Medical History Past Medical History: Diabetes Mellitus, Hyperlipidemia, Hypertension, Vascular Disorder Additional Past Medical History / Comment(s): uvitis glaucoma, PVD, dvt to lower left leg Last Myocardial Infarction Date:: 2005 History of Any Multi-Drug Resistant Organisms: MRSA Year Discovered:: 02/20/20 MDRO Source:: left leg Past Surgical History: Hernia Repair, Orthopedic Surgery Additional Past Surgical History / Comment(s): aortgram w/ runnoff, eye surg implant, bilateral knee SX, left vein stripping in 02/2020 x2 Past Anesthesia/Blood Transfusion Reactions: No Reported Reaction Additional Past Anesthesia/Blood Transfusion Reaction / Comm: no hx blood t ransfusion Past Psychological History: No Psychological Hx Reported Smoking Status: Never smoker Past Alcohol Use History: Rare Additional Past Alcohol Use History / Comment(s): quit smoking at 26,started at age 17,<1ppd Past Drug Use History: Marijuana Additional Drug Use History / Comment(s): uses marijuana daily - Past Family History Mother History Unknown: Yes Medications and Allergies Home Medications Medication Instructions Recorded Confirmed Type amLODIPine [Norvasc] 10 mg PO DAILY 09/11/15 04/25/20 History atenoloL [Atenolol] 25 mg PO BID 09/11/15 04/25/20 History lisinopriL [Zestril] 20 mg PO DAILY 09/11/15 04/25/20 History Glimepiride [Amaryl] 2 mg PO DAILY 02/01/20 04/25/20 History Simvastatin [Zocor] 20 mg PO HS 02/01/20 04/25/20 History DULoxetine HCL [Cymbalta] 20 mg PO DAILY 30 Days #30 02/27/20 04/25/20 Rx capsule. INSULIN ASPART (NovoLOG) [NovoLOG 10 unit SQ TID-W/MEALS 30 Days #2 02/27/20 04/25/20 Rx (formulary)] vial Insulin Glargine [Lantus] 55 unit SQ HS 30 Days #1 vial 04/02/20 04/25/20 Rx Famotidine 40 mg PO DAILY 04/25/20 04/25/20 History HYDROcodone/APAP 5-325MG [[place] 1 tab PO BID PRN 04/25/20 04/25/20 History 5-325] Apixaban [Eliquis] 5 mg PO BID #60 tab 04/26/20 Rx Gabapentin [Neurontin] 900 mg PO TID 30 Days #90 cap 04/26/20 Rx Allergies Allergy/AdvReac Type Severity Reaction Status Date / Time atorvastatin [From Lipitor] Allergy Swelling Verified 04/25/20 13:02 ibuprofen Allergy Swelling Verified 04/25/20 13:02 pregabalin [From Lyrica] Allergy Swelling Verified 04/25/20 13:02 Physical Exam Vitals: Vital Signs Temp Pulse Pulse Resp BP BP Pulse Ox 04/26/20 07:46 97.9 F 55 L 18 178/99 04/26/20 07:15 55 L 18 04/26/20 03:20 18 04/26/20 00:57 97.9 F 55 L 160/88 99 04/26/20 00:08 18 04/25/20 20:20 70 18 151/81 04/25/20 18:55 98.1 F 67 15 173/89 100 04/25/20 18:14 16 04/25/20 16:36 98 F 58 L 16 148/71 99 Intake and Output 04/25/20 04/26/20 04/26/20 22:59 06:59 14:59 Intake Total 800 Output Total 1540 290 Balance -1540 510 Intake: Intake, IV Titration 350 Amount Piperacillin-Tazobactam 3 100 .375 gm In Sodium Chloride 0.9% 100 ml @ 25 mls/hr IVPB Q8HR DENNISE Rx# :[id number] Vancomycin 1,250 mg In 250 Sodium Chloride 0.9% 250 ml @ 125 mls/hr IVPB Q12H DENNISE Rx#:[id number] Oral 450 Output: Urine 1540 290 Other: Voiding Method Urinal Urinal # Voids 1 3 Weight 69.853 kg GENERAL DESCRIPTION: Middle-aged male lying in bed, no distress. No tachypnea or accessory muscle of respiration use. HEENT: Shows Pallor , no scleral icterus. Oral mucous membrane is dry. No pharyngeal erythema or thrush NECK: Trachea central, no thyromegaly. LUNGS: Unlabored breathing. Clear to auscultation anteriorly. No wheeze or crackle. HEART: S1, S2, regular rate and rhythm. No loud murmur ABDOMEN: Soft, no tenderness , guarding or rigidity, no organomegaly EXTREMITIES: No edema of feet. Left medial leg wound is currently healed left big toe tip is black escher with no surrounding swelling redness or any drainage SKIN: No rash, no masses palpable. NEUROLOGICAL: The patient is awake, alert, oriented x3, mood and affect normal. Results CBC & Chem 7: 04/26/20 07:30 04/26/20 07:30 Labs: Abnormal Lab Results - Last 24 Hours (Table) 04/25/20 04/25/20 04/25/20 Range/Units 16:26 16:26 17:43 RBC 4.25 L (4.30-5.90) m/uL Hgb 12.0 L (13.0-17.5) gm/dL Hct 37.5 L (39.0-53.0) % Glucose (74-99) mg/dL POC Glucose (mg/dL) 123 H (75-99) mg/dL Urine Glucose (UA) 3+ H (Negative) 04/25/20 04/26/20 04/26/20 Range/Units 20:11 07:30 11:34 RBC (4.30-5.90) m/uL Hgb (13.0-17.5) gm/dL Hct (39.0-53.0) % Glucose 68 L (74-99) mg/dL POC Glucose (mg/dL) 339 H 109 H (75-99) mg/dL Urine Glucose (UA) (Negative) Assessment and Plan Assessment: 1- patient is a 54-year-old male with significant peripheral arterial disease and recently left leg wound infection after thrombolysis and fasciotomy unfortunately the patient was very noncompliant with his outpatient follow-up on taking his IV antibiotics his left leg wound is currently healed and has been complaining of more pain into his left big toe that it is currently covered with a black escher No significant surrounding cellulitis patient is afebrile and his white count is normal (1) Gangrene of toe of left foot Current Visit: Yes Status: Acute Code(s): I96 - GANGRENE, NOT ELSEWHERE CLASSIFIED SNOMED Code(s): 61845035519981061 Plan: 1- patient to have features more of arterial insufficiency rather than cellulitis in this patient with no fever or elevated white count or any inflammatory changes in the left big toe 2- we will discontinue the Zosyn to decrease risk of nephrotoxicity 3- vancomycin be discontinued if the cultures remains to be negative We will follow on clinical condition and cultures to further adjust medication if needed Thank you for this consultation will follow this patient with you Time with Patient: Greater than 30
[2020-04-27] MEDS: TEMAZEPAM 15 MG CAP PO PRN (01:25)
[2020-04-27] MEDS ORDERED: VANCOMYCIN TROUGH DUE 1 EACH MISC MISCELLANE ONE (04:00)
[2020-04-27 04:43] LABS: Basophils # (A) 0.1 k/uL (0-0.2); Basophils % (A) 1 %; Eosinophils # (A) 0.3 k/uL (0-0.7); Eosinophils % (A) 5 %; HCT 39.1 % (39.0-53.0); HGB 12.1 gm/dL (13.0-17.5); Lymphocytes # (A) 2.4 k/uL (1.0-4.8); Lymphocytes % (A) 39 %; MCH 27.4 pg (25.0-35.0); MCHC 30.8 g/dL (31.0-37.0); MCV 88.8 fL (80.0-100.0); Mean Platelet Volume 7.4; Monocytes # (A) 0.3 k/uL (0-1.0); Monocytes % (A) 5 %; Neutrophils # (A) 2.9 k/uL (1.3-7.7); Neutrophils % (A) 47 %; Platelet Count 227 k/uL (150-450); RDW 13.7 % (11.5-15.5); WBC 6.2 k/uL (3.8-10.6)
[2020-04-27 05:07] LABS: Calcium 9.1 mg/dL (8.4-10.2)
[2020-04-27] MEDS: VANCOMYCIN 1,250 MG in SODIUM CHLORIDE 0.9% 250 ML IVPB SCH (05:37)
[2020-04-27 07:07] LABS: Glucose,Whole Blood 348 mg/dL (75-99)
[2020-04-27 07:23] VITALS: BP 165/94; PULSE 51; TEMP 98
[2020-04-27] MEDS: INSULIN ASPART (NovoLOG) 100 UNIT/ML VIAL SQ SCH ×2 (08:03→08:04)
[2020-04-27] MEDS: PANTOPRAZOLE 40 MG TABLET PO SCH (08:05)
[2020-04-27] MEDS: GABAPENTIN 300 MG CAP PO SCH (08:29)
[2020-04-27] MEDS: FAMOTIDINE 20 MG TAB PO SCH (09:33)
[2020-04-27] MEDS: amLODIPine 10 MG TAB PO SCH (09:34)
[2020-04-27] MEDS: lisinopriL 20 MG TAB PO SCH (09:34)
[2020-04-27] MEDS: atenoloL 25 MG TAB PO SCH (09:34)
[2020-04-27] MEDS: APIXABAN 5 MG TAB PO SCH (09:34)
[2020-04-27] MEDS: GLIMEPIRIDE 2 MG TAB PO SCH (09:34)
[2020-04-27] MEDS: DULoxetine HCL 20 MG CAPSULE.DR PO SCH (09:35)
[2020-04-27] MEDS: HYDROcodone/APAP 5-325MG 1 EACH TAB PO PRN (10:12)
[2020-04-27 11:47] LABS: Glucose,Whole Blood 99 mg/dL (75-99)
--- NOTE | 2020-04-27 13:24 | P.PN ---
Subjective Progress Note Date: 04/27/20 Patient was seen and examined lying in bed. He denies any fevers or chills. Orders have been put in for discharge for today. He states pain has improved somewhat with the increase in his gabapentin to 900 mg. Denies any acute changes through the night. Objective - Vital Signs Vital signs: Vital Signs Temp 98.0 F 04/27/20 07:21 Pulse 51 L 04/27/20 07:21 Resp 16 04/27/20 07:21 BP 165/94 04/27/20 07:21 Pulse Ox 100 04/27/20 00:50 Intake & Output 04/26/20 04/27/20 04/27/20 18:59 06:59 18:59 Intake Total 800 480 Output Total 290 850 415 Balance 510 -850 65 Intake: Intake, IV Titration 350 Amount Piperacillin-Tazobactam 3 100 .375 gm In Sodium Chloride 0.9% 100 ml @ 25 mls/hr IVPB Q8HR DENNISE Rx# :[id number] Vancomycin 1,250 mg In 250 Sodium Chloride 0.9% 250 ml @ 125 mls/hr IVPB Q12H DENNISE Rx#:[id number] Oral 450 480 Output: Urine 290 850 415 Other: Voiding Method Urinal Urinal Urinal # Voids 3 1 - Exam General appearance: The patient is alert, oriented, in no acute distress. HET: Head is normocephalic and atraumatic. Neck: Supple Heart: S1 S2. Regular rate and rhythm. Lungs: No crackles or wheezes are heard. Extremities: Normal skin color and turgor. Bilateral lower extremities without edema. Palpable bilateral femoral pulses. Right palpable DP and PT pulses. Left DP and PT pulses nonpalpable. Left PT monophasic Doppler signal. Unable to obatin left DP signal. Left great toe with dry gangrene to the tip of toe with mild swelling. There is no drainage or foul odor. He can freely move feet and toes bilaterally. Neurological: No focal deficits. Strength and sensation are grossly intact. - Labs CBC & Chem 7: 04/27/20 04:25 04/27/20 04:25 Labs: Abnormal Lab Results - Last 24 Hours (Table) 04/26/20 04/26/20 04/27/20 Range/Units 11:34 16:49 04:25 Hgb 12.1 L (13.0-17.5) gm/dL MCHC 30.8 L (31.0-37.0) g/dL Sodium (137-145) mmol/L Glucose (74-99) mg/dL POC Glucose (mg/dL) 109 H 283 H (75-99) mg/dL 04/27/20 04/27/20 Range/Units 04:25 07:04 Hgb (13.0-17.5) gm/dL MCHC (31.0-37.0) g/dL Sodium 132 L (137-145) mmol/L Glucose 314 H (74-99) mg/dL POC Glucose (mg/dL) 348 H (75-99) mg/dL Microbiology - Last 24 Hours (Table) 04/25/20 16:26 Blood Culture - Preliminary Blood No Growth after 24 hours Assessment and Plan Assessment: 1. History of bilateral lower extremity arthrosclerotic/diabetic vascular disease, more pronounced left than on the right 2. Dry gangrenous changes of the distal tip of the left great toe, no evidence of wet gangrene 3. Diabetes mellitus 4. Hypertension 5. Tobacco abuse 6. Diabetic neuropathy Plan: Patient is instructed to restart his Eliquis prescription will be sent to [facility]. Will increase gabapentin to 900 mg 3 times a day with new prescription given to patient. There is no indication for any vascular surgical intervention at this time. Patient may be discharged home. There is no evidence of osteomyelitis or wet gangrene. Patient is to follow-up with Dr. Garnett next week in the office. Further recommendations to follow. The above dictated assessment and findings were discussed with Dr. Hess. The impression and plan of care have been directed as dictated.
--- NOTE | 2020-04-27 14:00 | PN ---
PROGRESS NOTE DATE OF SERVICE: 04/27/2020 REASON FOR FOLLOWUP: Left big toe tip gangrene, question of cellulitis. INTERVAL HISTORY: Patient is currently afebrile, has been breathing comfortably. Overall pain to the left big toe, controlled with pain medication. Denies having any chest pain or shortness of breath. No abdominal pain. No new drainage from the left big toe. PHYSICAL EXAMINATION: Blood pressure 135/94 with a pulse of 51, temperature 98, he is 100% on room air. General description is a middle-aged male lying in bed in no distress. RESPIRATORY SYSTEM: Unlabored breathing, clear to auscultation anteriorly. HEART: S1, S2. Regular rate and rhythm. ABDOMEN: Soft, no tenderness. Left big toe with necrotic area with no significant swelling. or drainage. LABS: Hemoglobin is 12.1, white count 6.2, BUN of 16, creatinine 1.14. DIAGNOSTIC IMPRESSION AND PLAN: Patient with left big toe tip necrotic area, likely underlying . Clinically doubt cellulitis and abscess. He is on vancomycin can be discontinued or will give a short course of oral doxycycline on discharge. MMODL / IJN: [id number] /
--- NOTE | 2020-04-28 14:30 | P.DS ---
Providers Date of admission: 04/25/20 15:49 Expected date of discharge: 04/27/20 Attending physician: Ruben Rios Consults: 04/25/20 16:22 Consult Physician Routine Consulting Provider: Tee Batista Consult Reason/Comments: pad Do you want consulting provider notified?: Yes 04/25/20 16:23 Consult Physician Routine Consulting Provider: Blas Alanis Consult Reason/Comments: pad Do you want consulting provider notified?: Yes Primary care physician: Demetrius Cisse [facility] Course: Final diagnosis Diabetic ulcer and dry gangrene of the left big toe with failure of outpatient treatment with severe pain peripheral vascular disease secondary to diabetes mellitus type 2 DM type 2, uncontrolled with hyperglycemia History of noncompliance hypertension glaucoma History of MRSA History of hernia repair History of DJD History of THC use Full code Discharge disposition Patient is being discharged in a stable condition with guarded prognosis to home. Patient will continue with home care in the outpatient setting as well. Patient will follow-up with Dr. Romo upon discharge. Patient also instructed to follow up with vascular surgery Dr. Dennison in the outpatient setting at his scheduled appointment. Total time taken is greater than 35 minutes. History of present illness This is a 54-year-old male who was recently admitted with left great toe, ischem ic, dry gangrene and severe pain and was being closely monitored. Patient has a history of noncompliance with medications and treatment plans missing follow up appointments. Patient was initiated on IV antibiotics upon admission and seen by infectious disease recommending no antibiotics upon discharge. Patient also evaluated by vascular surgery and will follow up with Dr. Dennison in the outpatient setting. Patient will continue on anticoagulant along with Gabapentin in the outpatient setting and prescriptions were provided as patient states he had none. Currently no reports of chest pain, palpitations, or shortness. Patient is afebrile. No reports of nausea or vomiting and patient is tolerating diet. Guarded prognosis. On exam vital signs are stable. Temp is 98.0F, pulse is 51, respirations are 16, blood pressure 165/94, oxygen saturation is 100 % on room air. Cardio S1, S2 are present. Respiratory shows diminished breath sounds bilaterally with no wheezing or rhonchi noted. Abdomen is soft and nontender. Nervous system shows no focal deficits. Please refer to medication reconciliation sheet for a list of medications. Patient Condition at Discharge: Stable Plan - Discharge Summary Discharge Rx Participant: No New Discharge Prescriptions: New Gabapentin [Neurontin] 900 mg PO TID 30 Days #90 cap Continue amLODIPine [Norvasc] 10 mg PO DAILY lisinopriL [Zestril] 20 mg PO DAILY atenoloL [Atenolol] 25 mg PO BID Glimepiride [Amaryl] 2 mg PO DAILY Simvastatin [Zocor] 20 mg PO HS DULoxetine HCL [Cymbalta] 20 mg PO DAILY 30 Days #30 capsule. INSULIN ASPART (NovoLOG) [NovoLOG (formulary)] 10 unit SQ TID-W/MEALS 30 Days #2 vial Insulin Glargine [Lantus] 55 unit SQ HS 30 Days #1 vial Famotidine 40 mg PO DAILY HYDROcodone/APAP 5-325MG [[place] 5-325] 1 tab PO BID PRN PRN Reason: Pain Apixaban [Eliquis] 5 mg PO BID #60 tab Discontinued Gabapentin 600 mg PO TID Discharge Medication List amLODIPine [Norvasc] 10 mg PO DAILY 09/11/15 [History] atenoloL [Atenolol] 25 mg PO BID 09/11/15 [History] lisinopriL [Zestril] 20 mg PO DAILY 09/11/15 [History] Glimepiride [Amaryl] 2 mg PO DAILY 02/01/20 [History] Simvastatin [Zocor] 20 mg PO HS 02/01/20 [History] DULoxetine HCL [Cymbalta] 20 mg PO DAILY 30 Days #30 capsule. 02/27/20 [Rx] INSULIN ASPART (NovoLOG) [NovoLOG (formulary)] 10 unit SQ TID-W/MEALS 30 Days #2 vial 02/27/20 [Rx] Insulin Glargine [Lantus] 55 unit SQ HS 30 Days #1 vial 04/02/20 [Rx] Famotidine 40 mg PO DAILY 04/25/20 [History] HYDROcodone/APAP 5-325MG [[place] 5-325] 1 tab PO BID PRN 04/25/20 [History] Apixaban [Eliquis] 5 mg PO BID #60 tab 04/26/20 [Rx] Gabapentin [Neurontin] 900 mg PO TID 30 Days #90 cap 04/26/20 [Rx] Follow up Appointment(s)/Referral(s): Betito Romo MD [Primary Care Provider] - 05/02/20 1:10 pm (If you can not make this appointment. Please call to cancel) Stephen Dennison DO [Doctor of Osteopathic Medicine] - 1 Week (office closed please call for appointment) [facility], [NON-STAFF] - Activity/Diet/Wound Care/Special Instructions: Activity Limited until follow-up Follow-up with primary care provider upon discharge Follow-up with vascular surgery in the outpatient setting Continue with anticoagulant Continue current diet Discharge Disposition: HOME WITH HOME HEALTH SERVICES
== END 2020-04-27 13:30 | disposition home health service (06) | DRG 300 ==
LOC: EC 12:57 → 4SSUR 15:49
PROVIDERS: ADMIT Hospitalist; ATTEND Hospitalist
DX: E11.52 Type 2 diabetes mellitus with diabetic peripheral angiopathy with gangrene (principal); I96 Gangrene, not elsewhere classified; E11.621 Type 2 diabetes mellitus with foot ulcer; E11.65 Type 2 diabetes mellitus with hyperglycemia; E78.5 Hyperlipidemia, unspecified; I10 Essential (primary) hypertension; M19.90 Unspecified osteoarthritis, unspecified site; E11.40 Type 2 diabetes mellitus with diabetic neuropathy, unspecified; H40.9 Unspecified glaucoma; M20.10 Hallux valgus (acquired), unspecified foot; Z79.01 Long term (current) use of anticoagulants; Z79.4 Long term (current) use of insulin; Z79.899 Other long term (current) drug therapy; Z88.6 Allergy status to analgesic agent; Z88.8 Allergy status to other drugs, medicaments and biological substances; Z98.890 Other specified postprocedural states; Z86.14 Personal history of Methicillin resistant Staphylococcus aureus infection; Z91.19 Patient's noncompliance with other medical treatment and regimen; Z91.14 Patient's other noncompliance with medication regimen; I25.2 Old myocardial infarction
CPT/HCPCS: 36556; 80048; 80053; 80202; 81003; 83605; 85025; 85610; 85730; 87040; 96365; 99285

== ENCOUNTER 2020-05-11 09:48 | Observation (INO) | payer MEDICARE, OTHER ==
[2020-05-11] MEDS ORDERED: SODIUM CHLORIDE 0.9% 500 ML 500 ML IV STA (10:40)
[2020-05-11] MEDS ORDERED: MORPHINE SULFATE 4 MG/ML SYRINGE IVP STA (10:40)
--- NOTE | 2020-05-11 11:00 | ED ---
Skin/Abscess/FB HPI <Mesfin Le - Last Filed: 05/11/20 12:32> - General Source: patient Mode of arrival: ambulatory Limitations: no limitations <Virgen Sutton - Last Filed: 05/11/20 13:23> - General Chief complaint: Skin/Abscess/Foreign Body Stated complaint: toe infection Time Seen by Provider: 05/11/20 10:14 - History of Present Illness Initial comments: Patient is a 54-year-old male, with history of diabetes, hypertension, presenting to the emergency Department with complaints of increasing pain in his left big toe. Patient has a history of a gangrene left big toe for the past few months. He has been seeing Dr. Garnett and was supposed to have a follow-up last week however he was unable to make the appointment secondary to being out of town. Patient states the pain has been increasing over the past few weeks and he can no longer control it. He eats the area that is black seems to be increasing and spreading as well. He denies any fever, chills, nausea, vomiting. He states his whole left foot is starting to become more painful. He does not take anything for pain at home, he ran out of pain medicine. He denies being on recent antibiotics. He denies chest pain or shortness of breath. He has no further complaints at this time. Upon arrival to the ER, patient was sli ghtly hypertensive at 180/76, rest of vitals normal. (Virgen Sutton) - Related Data Home Medications Medication Instructions Recorded Confirmed amLODIPine [Norvasc] 10 mg PO DAILY 09/11/15 05/11/20 atenoloL [Atenolol] 25 mg PO BID 09/11/15 05/11/20 lisinopriL [Zestril] 20 mg PO DAILY 09/11/15 05/11/20 Glimepiride [Amaryl] 2 mg PO DAILY 02/01/20 05/11/20 Simvastatin [Zocor] 20 mg PO HS 02/01/20 05/11/20 Famotidine 40 mg PO DAILY 04/25/20 05/11/20 HYDROcodone/APAP 5-325MG [[place] 1 tab PO BID PRN 04/25/20 05/11/20 5-325] Clopidogrel Bisulfate [Plavix] 75 mg PO DAILY 05/11/20 05/11/20 Gabapentin 600 mg PO TID 05/11/20 05/11/20 Gabapentin [Neurontin] 300 mg PO TID 05/11/20 05/11/20 INSULIN ASPART (NovoLOG) [NovoLOG 10 unit SQ AC-TID 05/11/20 05/11/20 (formulary)] metFORMIN HCL [Glucophage] 500 mg PO BID 05/11/20 05/11/20 Previous Rx's Medication Instructions Recorded DULoxetine HCL [Cymbalta] 20 mg PO DAILY 30 Days #30 02/27/20 capsule. Insulin Glargine [Lantus] 55 unit SQ HS 30 Days #1 vial 04/02/20 Apixaban [Eliquis] 5 mg PO BID #60 tab 04/26/20 Allergies Allergy/AdvReac Type Severity Reaction Status Date / Time atorvastatin [From Lipitor] Allergy Swelling Verified 05/11/20 12:04 ibuprofen Allergy Swelling Verified 05/11/20 12:04 pregabalin [From Lyrica] Allergy Swelling Verified 05/11/20 12:04 Review of Systems ROS Other: All systems not noted in ROS Statement are negative. <Mesfin Le - Last Filed: 05/11/20 12:32> ROS Other: All systems not noted in ROS Statement are negative. <Virgen Sutton - Last Filed: 05/11/20 13:23> ROS Statement: Those systems with pertinent positive or pertinent negative responses have been documented in the HPI. Past Medical History Past Medical History: Diabetes Mellitus, Hyperlipidemia, Hypertension, Vascular Disorder Additional Past Medical History / Comment(s): uvitis glaucoma, PVD, dvt to lower left leg Last Myocardial Infarction Date:: 2005 History of Any Multi-Drug Resistant Organisms: MRSA Date of last positivie culture/infection: 02/20/20 MDRO Source:: left leg Past Surgical History: Hernia Repair, Orthopedic Surgery Additional Past Surgical History / Comment(s): aortgram w/ runnoff, eye surg implant, bilateral knee SX, left vein stripping in 02/2020 x2 Past Anesthesia/Blood Transfusion Reactions: No Reported Reaction Additional Past Anesthesia/Blood Transfusion Reaction / Comment(s): no hx blood transfusion Past Psychological History: No Psychological Hx Reported Smoking Status: Never smoker Past Alcohol Use History: Rare Past Drug Use History: Marijuana - Past Family History Mother History Unknown: Yes <LesleyVirgen Betsy - Last Filed: 05/11/20 13:23> General Exam Limitations: no limitations <Virgen Sutton Betsy - Last Filed: 05/11/20 13:23> - General Exam Comments Initial Comments: GENERAL: Patient is well-developed and well-nourished. Patient is nontoxic and in no acute distress. HEAD: Atraumatic, normocephalic. EYES: Pupils equal round and reactive to light, extraocular movements intact, sclera anicteric, conjunctiva are normal. Eyelids were unremarkable. ENT: TMs normal, nares patent, oropharynx clear without exudates. Moist mucous membranes. NECK: Normal range of motion, supple without lymphadenopathy or JVD. LUNGS: Unlabored respirations. Breath sounds clear to auscultation bilaterally and equal. No wheezes rales or rhonchi. HEART: Regular rate and rhythm without murmurs, rubs or gallops. ABDOMEN: Soft, nontender, normoactive bowel sounds. No guarding, no rebound. No masses appreciated. : Deferred MUSCULOSKELETAL: Patient has a blackened first toe on the left foot with partial nail missing as well. He does have normal dorsal pedis pulse bilaterally. Sensation is diminished in the distal portion of his left foot, compared to right. NEUROLOGICAL: Patient is alert and oriented x 3. Motor and sensory are also intact. Cranial nerves II through XII grossly intact. Symmetrical smile. Normal speech, normal gait. PSYCH: Normal mood, normal affect. SKIN: Warm, Dry, normal turgor. (As described above.) (Virgen Sutton) Course Vital Signs 05/11/20 05/11/20 10:05 12:36 Temperature 98.7 F 97.9 F Pulse Rate 65 79 Respiratory 18 17 Rate Blood Pressure 180/76 150/70 O2 Sat by Pulse 100 99 Oximetry Medical Decision Making - Lab Data Result diagrams: 05/11/20 11:04 05/11/20 11:04 <Mesfin Le - Last Filed: 05/11/20 12:32> - Lab Data Result diagrams: 05/11/20 11:04 05/11/20 11:04 <Virgen Sutton - Last Filed: 05/11/20 13:23> - Medical Decision Making Patient was reevaluated by myself, Dr. Le. Patient reexamined and reevaluated. I do agree with PA findings. This includes diagnostic interpretation and treatment plan. Patient does have necrotic distal great toe. Patient complains of significant discomfort. Case was discussed with Dr. Myers who is familiar patient and will admit covering for Dr. kirk. Dr. Garnett will be placed on consult. (Mesfin Le) Patient is a 54-year-old male here with a cane greenness, black and left great toe that is been chronic in nature but getting worse over the past few weeks. He has been seeing Dr. Garnett. His vital signs are stable, afebrile. Patient's lab work shows a normal white count, ESR is 30, CRP is normal. X-ray is relatively unchanged. Patient will be admitted to continue with IV antibiotics and to consult with Dr. Garnett. Dr. Myers is accepting. Case discussed with Dr. Le. (Virgen Sutton) - Lab Data Lab Results 05/11/20 05/11/20 05/11/20 Range/Units 11:04 11:04 11:04 WBC 6.7 (3.8-10.6) k/uL RBC 4.74 (4.30-5.90) m/uL Hgb 13.3 (13.0-17.5) gm/dL Hct 41.8 (39.0-53.0) % MCV 88.3 (80.0-100.0) fL MCH 28.0 (25.0-35.0) pg MCHC 31.8 (31.0-37.0) g/dL RDW 13.6 (11.5-15.5) % Plt Count 252 (150-450) k/uL Neutrophils % 60 % Lymphocytes % 29 % Monocytes % 6 % Eosinophils % 3 % Basophils % 1 % Neutrophils # 4.1 (1.3-7.7) k/uL Lymphocytes # 1.9 (1.0-4.8) k/uL Monocytes # 0.4 (0-1.0) k/uL Eosinophils # 0.2 (0-0.7) k/uL Basophils # 0.0 (0-0.2) k/uL ESR 30 H (0-15) mm/hr Sodium 139 (137-145) mmol/L Potassium 4.5 (3.5-5.1) mmol/L Chloride 104 (98-107) mmol/L Carbon Dioxide 27 (22-30) mmol/L Anion Gap 8 mmol/L BUN 16 (9-20) mg/dL Creatinine 1.01 (0.66-1.25) mg/dL Est GFR (CKD-EPI)AfAm >90 (>60 ml/min/1.73 sqM) Est GFR (CKD-EPI)NonAf 83 (>60 ml/min/1.73 sqM) Glucose 103 H (74-99) mg/dL Plasma Lactic Acid Todd 1.2 (0.7-2.0) mmol/L Calcium 10.5 H (8.4-10.2) mg/dL Total Bilirubin 0.6 (0.2-1.3) mg/dL AST 31 (17-59) U/L ALT 25 (4-49) U/L Alkaline Phosphatase 68 (38-126) U/L C-Reactive Protein <5.0 (<10.0) mg/L Total Protein 7.6 (6.3-8.2) g/dL Albumin 4.4 (3.5-5.0) g/dL Disposition <Mesfin Le - Last Filed: 05/11/20 12:32> Decision Date: 05/11/20 Decision Time: 12:41 <Virgen Sutton - Last Filed: 05/11/20 13:23> Clinical Impression: Gangrene of toe of left foot, Cellulitis of left foot, Left foot pain Disposition: ADMITTED IP TO THIS [facility] Condition: Stable
--- NOTE | 2020-05-11 11:27 | XR ---
EXAMINATION TYPE: XR toes LT DATE OF EXAM: 05/11/2020 COMPARISON: NONE HISTORY: Swelling TECHNIQUE: Three views are submitted. FINDINGS: The osseous structures are intact. There is no acute fracture or dislocation. Extensive soft tissu e swelling distal margin first digit. Arthropathy of the MTP joint. No cortical erosion or destructiv e changes. IMPRESSION: 1. No acute osseous abnormality. There is soft tissue swelling involving the first digit, correlate f or cellulitis.
[2020-05-11 11:33] LABS: Basophils % (A) 1 %; Eosinophils # (A) 0.2 k/uL (0-0.7); Eosinophils % (A) 3 %; HCT 41.8 % (39.0-53.0); HGB 13.3 gm/dL (13.0-17.5); Lymphocytes # (A) 1.9 k/uL (1.0-4.8); Lymphocytes % (A) 29 %; MCHC 31.8 g/dL (31.0-37.0); MCV 88.3 fL (80.0-100.0); Mean Platelet Volume 7.6; Monocytes # (A) 0.4 k/uL (0-1.0); Monocytes % (A) 6 %; Neutrophils # (A) 4.1 k/uL (1.3-7.7); Neutrophils % (A) 60 %; Platelet Count 252 k/uL (150-450); RBC 4.74 m/uL (4.30-5.90); RDW 13.6 % (11.5-15.5); WBC 6.7 k/uL (3.8-10.6)
[2020-05-11 11:49] LABS: ALT 25 U/L (4-49); AST 31 U/L (17-59); African American GFR (CKD) >90 (>60 ml/min/1.73 sqM); Albumin 4.4 g/dL (3.5-5.0); Alkaline Phosphatase 68 U/L (38-126); Anion Gap 8 mmol/L; Blood Urea Nitrogen 16 mg/dL (9-20); C Reactive Protein <5.0 mg/L (<10.0); Calcium 10.5 mg/dL (8.4-10.2); Carbon Dioxide 27 mmol/L (22-30); Chloride 104 mmol/L (98-107); Glucose 103 mg/dL (74-99); Non-African American GFR(CKD) 83 (>60 ml/min/1.73 sqM); Potassium 4.5 mmol/L (3.5-5.1); Sodium 139 mmol/L (137-145); Total Bilirubin 0.6 mg/dL (0.2-1.3); Total Protein 7.6 g/dL (6.3-8.2)
[2020-05-11] MEDS ORDERED: ONDANSETRON 4 MG/2 ML VIAL IVP PRN (12:37)
[2020-05-11] MEDS ORDERED: ACETAMINOPHEN TAB 325 MG TAB PO PRN (12:37)
[2020-05-11] MEDS ORDERED: HYDROcodone/APAP 5-325MG 1 EACH TAB PO PRN ×2 (12:37→14:39)
[2020-05-11] MEDS ORDERED: NALOXONE 0.4 MG/ML 1 ML VIAL IV PRN (12:37)
[2020-05-11] MEDS ORDERED: cefTRIAXone IN SWFI 1,000 MG/10 ML SYRINGE IVP STA (12:39)
[2020-05-11] MEDS ORDERED: VANCOMYCIN IV PER PHARMACY 1 EACH MISC MISCELLANE PRN (12:40)
[2020-05-11 12:44] LABS: Erythrocyte Sedimentation Rate 30 mm/hr (0-15)
[2020-05-11] MEDS ORDERED: VANCOMYCIN 1,500 MG in SODIUM CHLORIDE 0.9% 250 ML IVPB STA (12:45)
[2020-05-11] MEDS ORDERED: SODIUM CHLORIDE 0.9% 1,000 ML IV SCH (12:45)
[2020-05-11] MEDS: MORPHINE SULFATE 4 MG/ML SYRINGE IV PRN ×3 (13:59→21:00)
--- NOTE | 2020-05-11 15:49 | P.HPIM ---
History of Present Illness 54-year-old maleurine compensative increasing pain in the left big toe. Patient had a gangrene the left big toe was recently hospital is was subsequently did discharged to follow up with [facility] surgery which she never did and he came in with the complaints of increasing pain in the toe. Patient does have the type 2 diabetes mellitus never smoked apparently had the vasculopathy related to diabetes.patient was not discharged with any antibiotics and I do not believe patient will require any antibiotics at this time either. Patient will be a valid to the vascular surgery. Once his pain is better controlled probably be discharged.she appears to have undergone extensive a lesion during his last hospitalization. Patient apparently had a severe peripheral arterial disease with prior left femoropopliteal bypass graft which was thrombosed later causing advanced arterial insufficient ischemia of the left lower foot which required fasciotomy of the left calf. Left foot x-rays during his last hospitalization did not show any osteomyelitis. Review of Systems REVIEW OF SYSTEMS: CONSTITUTIONAL: No fever, no malaise, no fatigue. HEENT: No recent visual problems or hearing problems. Denied any sore throat. CARDIOVASCULAR: No chest pain, orthopnea, PND, no palpitations, no syncope. PULMONARY: No shortness of breath, no cough, no hemoptysis. GASTROINTESTINAL: No diarrhea, no nausea, no vomiting, no abdominal pain. NEUROLOGICAL: No headaches, no weakness, no numbness. HEMATOLOGICAL: Denies any bleeding or petechiae. GENITOURINARY: Denies any burning micturition, frequency, or urgency. MUSCULOSKELETAL/RHEUMATOLOGICAL: Denies any joint pain, swelling, or any muscle pain. ENDOCRINE: Denies any polyuria or polydipsia. The rest of the 14-point review of systems is negative. Past Medical History Past Medical History: Diabetes Mellitus, Hyperlipidemia, Hypertension, Vascular Disorder Additional Past Medical History / Comment(s): uvitis glaucoma, PVD, dvt to lower left leg Last Myocardial Infarction Date:: 2005 History of Any Multi-Drug Resistant Organisms: MRSA Date of last positivie culture/infection: 02/20/20 MDRO Source:: left leg Past Surgical History: Hernia Repair, Orthopedic Surgery Additional Past Surgical History / Comment(s): aortgram w/ runnoff, eye surg implant, bilateral knee SX, left vein stripping in 02/2020 x2 Past Anesthesia/Blood Transfusion Reactions: No Reported Reaction Additional Past Anesthesia/Blood Transfusion Reaction / Comment(s): no hx blood transfusion Past Psychological History: No Psychological Hx Reported Smoking Status: Never smoker Past Alcohol Use History: Rare Past Drug Use History: Marijuana - Past Family History Mother History Unknown: Yes Medications and Allergies Home Medications Medication Instructions Recorded Confirmed Type amLODIPine [Norvasc] 10 mg PO DAILY 09/11/15 05/11/20 History atenoloL [Atenolol] 25 mg PO BID 09/11/15 05/11/20 History lisinopriL [Zestril] 20 mg PO DAILY 09/11/15 05/11/20 History Glimepiride [Amaryl] 2 mg PO DAILY 02/01/20 05/11/20 History Simvastatin [Zocor] 20 mg PO HS 02/01/20 05/11/20 History DULoxetine HCL [Cymbalta] 20 mg PO DAILY 30 Days #30 02/27/20 05/11/20 Rx capsule. Insulin Glargine [Lantus] 55 unit SQ HS 30 Days #1 vial 04/02/20 05/11/20 Rx Famotidine 40 mg PO DAILY 04/25/20 05/11/20 History HYDROcodone/APAP 5-325MG [[place] 1 tab PO BID PRN 04/25/20 05/11/20 History 5-325] Apixaban [Eliquis] 5 mg PO BID #60 tab 04/26/20 05/11/20 Rx Clopidogrel Bisulfate [Plavix] 75 mg PO DAILY 05/11/20 05/11/20 History Gabapentin 600 mg PO TID 05/11/20 05/11/20 History Gabapentin [Neurontin] 300 mg PO TID 05/11/20 05/11/20 History INSULIN ASPART (NovoLOG) [NovoLOG 10 unit SQ AC-TID 05/11/20 05/11/20 History (formulary)] metFORMIN HCL [Glucophage] 500 mg PO BID 05/11/20 05/11/20 History Allergies Allergy/AdvReac Type Severity Reaction Status Date / Time atorvastatin [From Lipitor] Allergy Swelling Verified 05/11/20 13:51 ibuprofen Allergy Swelling Verified 05/11/20 13:51 pregabalin [From Lyrica] Allergy Swelling Verified 05/11/20 13:51 Physical Exam Vitals: Vital Signs Temp Pulse Pulse Resp BP BP Pulse Ox 05/11/20 13:44 98.5 F 85 154/92 98 05/11/20 12:36 97.9 F 79 17 150/70 99 05/11/20 10:05 98.7 F 65 18 180/76 100 Intake and Output 05/11/20 05/11/20 05/11/20 06:59 14:59 22:59 Other: Weight 69.853 kg PHYSICAL EXAMINATION: GENERAL: The patient is alert and oriented x3, not in any acute distress. Well developed, well nourished. HEENT: Pupils are round and equally reacting to light. EOMI. No scleral icterus. No conjunctival pallor. Normocephalic, atraumatic. No pharyngeal erythema. No thyromegaly. CARDIOVASCULAR: S1 and S2 present. No murmurs, rubs, or gallops. PULMONARY: Chest is clear to auscultation, no wheezing or crackles. ABDOMEN: Soft, nontender, nondistended, normoactive bowel sounds. No palpable organomegaly. MUSCULOSKELETAL: No joint swelling or deformity. EXTREMITIES: No cyanosis, clubbing, or pedal edema. patient has dry gangrene of the left great toe dry gangrene extends passively though area close to tarsometatarsal joint. There is no significant raise of the local is of temperature redness although his left leg is little bit cold and clammy secondar y to severe peripheral vascular disease decreased pulses in the left lower extremity NEUROLOGICAL: Gross neurological examination did not reveal any focal deficits. SKIN: No rashes. Results CBC & Chem 7: 05/11/20 11:04 05/11/20 11:04 Labs: Abnormal Lab Results - Last 24 Hours (Table) 05/11/20 05/11/20 Range/Units 11:04 11:04 ESR 30 H (0-15) mm/hr Glucose 103 H (74-99) mg/dL Calcium 10.5 H (8.4-10.2) mg/dL Thrombosis Risk Factor Assmnt - Choose All That Apply Any of the Below Risk Factors Present?: Yes Each Factor Represents 1 point: Age 41-60 years Other Risk Factors: Yes Each Risk Factor Represents 3 Points: History of DVT/PE Other congenital or acquired thrombophilia - If yes, enter type in comment: No Thrombosis Risk Factor Assessment Total Risk Factor Score: 4 Thrombosis Risk Factor Assessment Level: Moderate Risk Assessment and Plan Plan: -dry gangrene of the left foot: As per surgery will evaluate the patient I do not believe patient will require antibiotics patient was started on IV vancomycin which I'll continue with aggressive surgery evaluates the patient. Patient will be continued on his regimen fordiabetic neuropathy including 900 mg of gabapentin along with [place].after evaluation by vascular surgery patient probably can be discharged tomorrow -Severe peripheral vascular disease patient will be continued on Eliquis -Diabetic peripheral neuropathy -Type 2 diabetes mellitus patient will be resumed on his home regimen titrate H check the blood sugars 3 times a day and titrate depending on blood sugars and insulin requirements -Depression continue with the Cymbalta -Hypertension: Patient will be resumed on his home medications blood pressure will be monitored -gastroesophageal reflux disease
--- NOTE | 2020-05-11 15:52 | P.GSCN ---
History of Present Illness Consult date: 05/11/20 Reason for Consult: Dry gangrene left great toe History of present illness: This is a 54-year-old -[place] male well-known to Dr. Garnett. The patient has a history of peripheral arterial disease with a prior left femoral popliteal bypass graft that was performed 1-2 years ago. Approximately 10 weeks ago he presented to the hospital with a thrombosed graft with advanced arterial insufficiency and ischemia of the left lower extremity and foot. He did undergo thrombolyzation of the bypass graft and required a 4 compartment fasciotomy of the left calf. Those incisions have since healed and patient has been ambulatory, however states that the pain to the left great toe has worsened. He is unable to wear shoe. He denies any drainage, odor, fevers or chills. Patient was scheduled to have an appointment with Dr. Garnett last week, however he went out of town and missed the appointment. He has now missed his last two followup appointments with Dr. Dennison. His last admission was approximately a month ago for continued pain in the left great toe, a lower extremity arterial Doppler was completed showing right lower extremity with normal flow. Left side shows at least moderate femoral-popliteal disease. He was supposed to follow up with Dr. Garnett in the office, his gabapentin was increased to 900 mg 3 times a day on his last admission. An x-ray of the left toes shows no acute osseous abnormality. There is soft tissue swelling involving the first digit, correlate for cellulitis. The patient denies any shortness of breath, chest pain, fevers, or chills. He states he pain in the left great toe seems to be worsening, denies any drainage or foul odor from the left great toe. He states he gabapentin did not improve his pain. Review of Systems A 14 point review of systems was completed and all pertinent positives and negatives as stated in the HPI Past Medical History Past Medical History: Diabetes Mellitus, Hyperlipidemia, Hypertension, Vascular Disorder Additional Past Medical History / Comment(s): uvitis glaucoma, PVD, dvt to lower left leg Last Myocardial Infarction Date:: 2005 History of Any Multi-Drug Resistant Organisms: MRSA Year Discovered:: 02/20/20 MDRO Source:: left leg Past Surgical History: Hernia Repair, Orthopedic Surgery Additional Past Surgical History / Comment(s): aortgram w/ runnoff, eye surg implant, bilateral knee SX, left vein stripping in 02/2020 x2 Past Anesthesia/Blood Transfusion Reactions: No Reported Reaction Additional Past Anesthesia/Blood Transfusion Reaction / Comm: no hx blood transfusion Past Psychological History: No Psychological Hx Reported Smoking Status: Never smoker Past Alcohol Use History: Rare Past Drug Use History: Marijuana - Past Family History Mother History Unknown: Yes Medications and Allergies Home Medications Medication Instructions Recorded Confirmed Type amLODIPine [Norvasc] 10 mg PO DAILY 09/11/15 05/11/20 History atenoloL [Atenolol] 25 mg PO BID 09/11/15 05/11/20 History lisinopriL [Zestril] 20 mg PO DAILY 09/11/15 05/11/20 History Glimepiride [Amaryl] 2 mg PO DAILY 02/01/20 05/11/20 History Simvastatin [Zocor] 20 mg PO HS 02/01/20 05/11/20 History DULoxetine HCL [Cymbalta] 20 mg PO DAILY 30 Days #30 02/27/20 05/11/20 Rx capsule. Insulin Glargine [Lantus] 55 unit SQ HS 30 Days #1 vial 04/02/20 05/11/20 Rx Famotidine 40 mg PO DAILY 04/25/20 05/11/20 History HYDROcodone/APAP 5-325MG [[place] 1 tab PO BID PRN 04/25/20 05/11/20 History 5-325] Apixaban [Eliquis] 5 mg PO BID #60 tab 04/26/20 05/11/20 Rx Clopidogrel Bisulfate [Plavix] 75 mg PO DAILY 05/11/20 05/11/20 History Gabapentin 600 mg PO TID 05/11/20 05/11/20 History Gabapentin [Neurontin] 300 mg PO TID 05/11/20 05/11/20 History INSULIN ASPART (NovoLOG) [NovoLOG 10 unit SQ AC-TID 05/11/20 05/11/20 History (formulary)] metFORMIN HCL [Glucophage] 500 mg PO BID 05/11/20 05/11/20 History Allergies Allergy/AdvReac Type Severity Reaction Status Date / Time atorvastatin [From Lipitor] Allergy Swelling Verified 05/11/20 13:51 ibuprofen Allergy Swelling Verified 05/11/20 13:51 pregabalin [From Lyrica] Allergy Swelling Verified 05/11/20 13:51 Surgical - Exam Vital Signs Temp Pulse Resp BP Pulse Ox 98.7 F 65 18 180/76 100 05/11/20 10:05 05/11/20 10:05 05/11/20 10:05 05/11/20 10:05 05/11/20 10:05 General appearance: The patient is alert, oriented, in no acute distress. HET: Head is normocephalic and atraumatic. Heart: S1 S2. Regular rate and rhythm. Lungs: No crackles or wheezes are heard. Extremities: Bilateral lower extremities without edema. Palpable bilateral femoral pulses. I palpable DP and PT pulses. Left DP and PT pulses nonpalpable. Left PT monophasic Doppler signal, unable to obtain a left DP signal. Of great toe with dry gangrene to the tip of the toe with mild inflammation. There is no drainage or foul odor. He is able to freely move his toes. Does have some discomfort with palpation to the surrounding tissue on the left great toe. Neurological: No focal deficits. Strength and sensation are grossly intact. Results X-ray of left toes no acute osseous abnormality. There is soft tissue swelling involving the first digit, correlate for cellulitis - Labs 05/11/20 11:04 05/11/20 11:04 Abnormal Lab Results - Last 24 Hours (Table) 05/11/20 05/11/20 Range/Units 11:04 11:04 ESR 30 H (0-15) mm/hr Glucose 103 H (74-99) mg/dL Calcium 10.5 H (8.4-10.2) mg/dL Diabetes panel 05/11/20 Range/Units 11:04 Sodium 139 (137-145) mmol/L Potassium 4.5 (3.5-5.1) mmol/L Chloride 104 (98-107) mmol/L Carbon Dioxide 27 (22-30) mmol/L BUN 16 (9-20) mg/dL Creatinine 1.01 (0.66-1.25) mg/dL Glucose 103 H (74-99) mg/dL Calcium 10.5 H (8.4-10.2) mg/dL AST 31 (17-59) U/L ALT 25 (4-49) U/L Alkaline Phosphatase 68 (38-126) U/L Total Protein 7.6 (6.3-8.2) g/dL Albumin 4.4 (3.5-5.0) g/dL Calcium panel 05/11/20 Range/Units 11:04 Calcium 10.5 H (8.4-10.2) mg/dL Albumin 4.4 (3.5-5.0) g/dL Pituitary panel 05/11/20 Range/Units 11:04 Sodium 139 (137-145) mmol/L Potassium 4.5 (3.5-5.1) mmol/L Chloride 104 (98-107) mmol/L Carbon Dioxide 27 (22-30) mmol/L BUN 16 (9-20) mg/dL Creatinine 1.01 (0.66-1.25) mg/dL Glucose 103 H (74-99) mg/dL Calcium 10.5 H (8.4-10.2) mg/dL Adrenal panel 05/11/20 Range/Units 11:04 Sodium 139 (137-145) mmol/L Potassium 4.5 (3.5-5.1) mmol/L Chloride 104 (98-107) mmol/L Carbon Dioxide 27 (22-30) mmol/L BUN 16 (9-20) mg/dL Creatinine 1.01 (0.66-1.25) mg/dL Glucose 103 H (74-99) mg/dL Calcium 10.5 H (8.4-10.2) mg/dL Total Bilirubin 0.6 (0.2-1.3) mg/dL AST 31 (17-59) U/L ALT 25 (4-49) U/L Alkaline Phosphatase 68 (38-126) U/L Total Protein 7.6 (6.3-8.2) g/dL Albumin 4.4 (3.5-5.0) g/dL Assessment and Plan Assessment: 1. Dry gangrene changes of the distal tip of the left great toe, no evidence of wet gangrene 2. History of bilateral lower extremity arthrosclerotic/diabetic vascular disease, more pronounced left than on right 3. Diabetes mellitus 4. Hypertension 5. Tobacco abuse 6. Diabetic neuropathy Plan: The patient was discussed with Dr. Hess. There are no acute indications for vascular surgical intervention at this time. There are no signs of wet gangrene. Patient to follow-up and schedule outpatient surgical amputation of the left great toe. Continue with pain management. Further recommendations to follow. Thank you for this consultation allowing us take part in the plan of care of your patient during his hospital stay. The above dictated assessment and findings were discussed with Dr. Hses. The impression and plan of care have been directed as dictated.
[2020-05-11] MEDS ORDERED: GABAPENTIN 300 MG CAP PO SCH (16:00)
[2020-05-11 16:30] LABS: Glucose,Whole Blood 235 mg/dL (75-99)
[2020-05-11] MEDS: GABAPENTIN 300 MG CAP PO SCH ×2 (17:13→20:59)
[2020-05-11] MEDS: INSULIN ASPART (NovoLOG) 100 UNIT/ML VIAL SQ SCH ×3 (17:14→20:37)
[2020-05-11] MEDS ORDERED: metFORMIN 500 MG TAB PO SCH (17:30)
[2020-05-11 20:27] LABS: Glucose,Whole Blood 90 mg/dL (75-99)
[2020-05-11] MEDS ORDERED: INSULIN DETEMIR (LEVEMIR) 100 UNIT/ML SYR SQ SCH (21:00)
[2020-05-11] MEDS: atenoloL 25 MG TAB PO SCH (21:00)
[2020-05-11] MEDS ORDERED: SIMVASTATIN PO SCH (21:00)
[2020-05-11] MEDS: APIXABAN 5 MG TAB PO SCH (21:00)
[2020-05-12 01:53] VITALS: RESP 18
[2020-05-12] MEDS ORDERED: VANCOMYCIN 1,250 MG in SODIUM CHLORIDE 0.9% 250 ML IVPB SCH (02:00)
[2020-05-12 07:01] LABS: Glucose,Whole Blood 134 mg/dL (75-99)
[2020-05-12] MEDS: MORPHINE SULFATE 4 MG/ML SYRINGE IV PRN (07:30)
[2020-05-12] MEDS: APIXABAN 5 MG TAB PO SCH (07:32)
[2020-05-12] MEDS: atenoloL 25 MG TAB PO SCH (07:33)
[2020-05-12] MEDS: INSULIN ASPART (NovoLOG) 100 UNIT/ML VIAL SQ SCH ×4 (07:33→12:12)
[2020-05-12] MEDS: GABAPENTIN 300 MG CAP PO SCH (07:33)
[2020-05-12 08:46] VITALS: BP 149/84; PULSE 62; TEMP 98.3
[2020-05-12] MEDS ORDERED: GLIMEPIRIDE 2 MG TAB PO SCH (09:00)
[2020-05-12] MEDS ORDERED: CLOPIDOGREL 75 MG TAB PO SCH (09:00)
[2020-05-12] MEDS ORDERED: FAMOTIDINE 20 MG TAB PO SCH (09:00)
[2020-05-12] MEDS ORDERED: DULoxetine HCL 20 MG CAPSULE.DR PO SCH (09:00)
[2020-05-12] MEDS ORDERED: lisinopriL 20 MG TAB PO SCH (09:00)
[2020-05-12] MEDS ORDERED: amLODIPine 10 MG TAB PO SCH (09:00)
[2020-05-12 11:26] LABS: Glucose,Whole Blood 69 mg/dL (75-99)
[2020-05-12 11:40] LABS: Glucose,Whole Blood 77 mg/dL (75-99)
--- NOTE | 2020-05-12 14:42 | P.DS ---
Providers Date of admission: 05/11/20 12:37 Attending physician: Evelina Myers Consults: 05/11/20 12:37 Consult Physician Stat Consulting Provider: Stephen Dennison Consult Reason/Comments: Left great toe gangrene Do you want consulting provider notified?: Yes Primary care physician: Demetrius Burnham [facility] Course: 54-year-old maleurine compensative increasing pain in the left big toe. Patient had a gangrene the left big toe was recently hospital is was subsequently did discharged to follow up with [facility] surgery which she never did and he came in with the complaints of increasing pain in the toe. Patient does have the type 2 diabetes mellitus never smoked apparently had the vasculopathy related to diabetes.patient was not discharged with any antibiotics and I do not believe patient will require any antibiotics at this time either. Patient will be a valid to the vascular surgery. Once his pain is better controlled probably be discharged.she appears to have undergone extensive a lesion during his last hospitalization. Patient apparently had a severe peripheral arterial disease with prior left femoropopliteal bypass graft which was thrombosed later causing advanced arterial insufficient ischemia of the left lower foot which required fasciotomy of the left calf. Left foot x-rays during his last hospitalization did not show any osteomyelitis. Patient seen on follow-up today, evaluated by Dr. Hess who has cleared patient for discharge home, recommends no further antimicrobial therapy. Patient was taking Plavix, along with eliquis we will discontinue Plavix and he will continue on only anticoagulation. Plan of care was discussed with patient who is agreeable. PHYSICAL EXAMINATION: GENERAL: The patient is alert and oriented x3, not in any acute distress. Well d eveloped, well nourished. HEENT: Pupils are round and equally reacting to light. EOMI. No scleral icterus. No conjunctival pallor. Normocephalic, atraumatic. No pharyngeal erythema. No thyromegaly. CARDIOVASCULAR: S1 and S2 present. No murmurs, rubs, or gallops. PULMONARY: Chest is clear to auscultation, no wheezing or crackles. ABDOMEN: Soft, nontender, nondistended, normoactive bowel sounds. No palpable organomegaly. MUSCULOSKELETAL: No joint swelling or deformity. EXTREMITIES: No cyanosis, clubbing, or pedal edema. patient has dry gangrene of the left great toe dry gangrene extends passively though area close to tarsometatarsal joint. There is no significant raise of the local is of temperature redness although his left leg is little bit cold and clammy secondary to severe peripheral vascular disease decreased pulses in the left lower extremity NEUROLOGICAL: Gross neurological examination did not reveal any focal deficits. SKIN: No rashes. Assessment and Plan Plan: -dry gangrene of the left foot: patient will be continued on regimen for diabetic neuropathy including Neurontin and [place], as per vascular surgery patient will not require any further antimicrobial therapy and can be discharged -Severe peripheral vascular disease patient will be continued on Eliquis -Diabetic peripheral neuropathy -Type 2 diabetes mellitus patient will be continued on prior home diabetic regimen -Depression continue with the Cymbalta -Hypertension: Patient will be resumed on his home medications blood pressure will be monitored -gastroesophageal reflux disease Patient Condition at Discharge: Stable Plan - Discharge Summary New Discharge Prescriptions: Continue amLODIPine [Norvasc] 10 mg PO DAILY lisinopriL [Zestril] 20 mg PO DAILY atenoloL [Atenolol] 25 mg PO BID Glimepiride [Amaryl] 2 mg PO DAILY Simvastatin [Zocor] 20 mg PO HS DULoxetine HCL [Cymbalta] 20 mg PO DAILY 30 Days #30 capsule. Insulin Glargine [Lantus] 55 unit SQ HS 30 Days #1 vial Famotidine 40 mg PO DAILY HYDROcodone/APAP 5-325MG [[place] 5-325] 1 tab PO BID PRN PRN Reason: Pain Apixaban [Eliquis] 5 mg PO BID #60 tab Gabapentin 600 mg PO TID metFORMIN HCL [Glucophage] 500 mg PO BID Gabapentin [Neurontin] 300 mg PO TID INSULIN ASPART (NovoLOG) [NovoLOG (formulary)] 10 unit SQ AC-TID Discontinued Clopidogrel Bisulfate [Plavix] 75 mg PO DAILY Discharge Medication List amLODIPine [Norvasc] 10 mg PO DAILY 09/11/15 [History] atenoloL [Atenolol] 25 mg PO BID 09/11/15 [History] lisinopriL [Zestril] 20 mg PO DAILY 09/11/15 [History] Glimepiride [Amaryl] 2 mg PO DAILY 02/01/20 [History] Simvastatin [Zocor] 20 mg PO HS 02/01/20 [History] DULoxetine HCL [Cymbalta] 20 mg PO DAILY 30 Days #30 capsule. 02/27/20 [Rx] Insulin Glargine [Lantus] 55 unit SQ HS 30 Days #1 vial 04/02/20 [Rx] Famotidine 40 mg PO DAILY 04/25/20 [History] HYDROcodone/APAP 5-325MG [[place] 5-325] 1 tab PO BID PRN 04/25/20 [History] Apixaban [Eliquis] 5 mg PO BID #60 tab 04/26/20 [Rx] Gabapentin 600 mg PO TID 05/11/20 [History] Gabapentin [Neurontin] 300 mg PO TID 05/11/20 [History] INSULIN ASPART (NovoLOG) [NovoLOG (formulary)] 10 unit SQ AC-TID 05/11/20 [History] metFORMIN HCL [Glucophage] 500 mg PO BID 05/11/20 [History] Follow up Appointment(s)/Referral(s): Betito Romo MD [Primary Care Provider] - 3 Days Discharge Disposition: HOME SELF-CARE
== END 2020-05-12 15:58 | disposition home or self-care (01) ==
LOC: EC 09:48 → 4SSUR 12:37 → INTOOBSV 12:37
PROVIDERS: ADMIT Internal Medicine; ATTEND Internal Medicine
DX: E11.52 Type 2 diabetes mellitus with diabetic peripheral angiopathy with gangrene (principal); I96 Gangrene, not elsewhere classified; L03.116 Cellulitis of left lower limb; E11.42 Type 2 diabetes mellitus with diabetic polyneuropathy; I10 Essential (primary) hypertension; Z91.19 Patient's noncompliance with other medical treatment and regimen; H20.9 Unspecified iridocyclitis; H40.9 Unspecified glaucoma; I25.2 Old myocardial infarction; Z86.14 Personal history of Methicillin resistant Staphylococcus aureus infection; Z98.890 Other specified postprocedural states; E78.5 Hyperlipidemia, unspecified; F32.9 Major depressive disorder, single episode, unspecified; K21.9 Gastro-esophageal reflux disease without esophagitis; Z95.828 Presence of other vascular implants and grafts; Z79.01 Long term (current) use of anticoagulants; Z79.02 Long term (current) use of antithrombotics/antiplatelets; Z79.899 Other long term (current) drug therapy; Z79.4 Long term (current) use of insulin; Z88.6 Allergy status to analgesic agent; Z88.8 Allergy status to other drugs, medicaments and biological substances
CPT/HCPCS: 96376 ×2; 96366; 96361; 96365; 96375; 99284; 36415; 80053; 85652; 83605; 85025; 86140; 73660; G0378; J3370; J2270 ×2; J0696

== ENCOUNTER → 2020-05-21 | Outpatient (CLI) | payer MEDICARE, OTHER ==
[2020-05-21 13:07] LABS: Basophils # (A) 0.1 k/uL (0-0.2); Basophils % (A) 1 %; Eosinophils # (A) 0.1 k/uL (0-0.7); Eosinophils % (A) 2 %; HCT 43.6 % (39.0-53.0); HGB 13.5 gm/dL (13.0-17.5); Lymphocytes # (A) 2.4 k/uL (1.0-4.8); Lymphocytes % (A) 32 %; MCH 27.3 pg (25.0-35.0); MCHC 31.1 g/dL (31.0-37.0); MCV 87.8 fL (80.0-100.0); Mean Platelet Volume 7.5; Monocytes # (A) 0.3 k/uL (0-1.0); Monocytes % (A) 4 %; Neutrophils # (A) 4.2 k/uL (1.3-7.7); Neutrophils % (A) 58 %; Platelet Count 283 k/uL (150-450); RBC 4.96 m/uL (4.30-5.90); WBC 7.3 k/uL (3.8-10.6)
[2020-05-21 13:18] LABS: African American GFR (CKD) >90 (>60 ml/min/1.73 sqM); Anion Gap 9 mmol/L; Blood Urea Nitrogen 19 mg/dL (9-20); Carbon Dioxide 24 mmol/L (22-30); Chloride 102 mmol/L (98-107); Non-African American GFR(CKD) >90 (>60 ml/min/1.73 sqM); Sodium 135 mmol/L (137-145)
== END | disposition home or self-care (01) ==
LOC: LABPAT 11:39
PROVIDERS: ATTEND Surgery
DX: Z01.818 Encounter for other preprocedural examination (principal); I82.419 Acute embolism and thrombosis of unspecified femoral vein
CPT/HCPCS: 36415; 80051; 82565; 84520; 85025

== ENCOUNTER 2020-05-27 20:45 | Inpatient (IN) | payer MEDICARE, OTHER ==
[2020-05-27] MEDS ORDERED: SODIUM CHLORIDE 0.9% 1,000 ML IV STA (22:14)
[2020-05-27] MEDS ORDERED: MORPHINE SULFATE 4 MG/ML SYRINGE IVP STA (22:14)
--- NOTE | 2020-05-27 22:18 | ED ---
Extremity Problem HPI - General Source: patient Mode of arrival: wheelchair <Ari Rapp - Last Filed: 05/28/20 00:07> <Elif Pablo - Last Filed: 06/01/20 01:02> - General Chief complaint: Extremity Problem,Nontraumatic Stated complaint: Gangrene on foot Time Seen by Provider: 05/27/20 21:54 - History of Present Illness Initial comments: She did 54-year-old male with history of diabetes presenting to the emergency department with chief complaint of toe pain. Patient reports she's been having a necrotic left big toe since the beginning of the year. Patient states he sees who is scheduled to perform a procedure due to artery stenosis and the left lower extremity. Patient reports over the last 2 weeks is noticed progression of the necrosis into the nailbed and closer to the cuticle. Patient reports especially over last 2 days his developed significant pain in his [place] aren't when touching it. Patient denies night sweats fevers or chills. Denies foul odor from a necrotic region. (Ari Rapp) - Related Data Home Medications Medication Instructions Recorded Confirmed amLODIPine [Norvasc] 10 mg PO DAILY 09/11/15 05/28/20 atenoloL [Atenolol] 25 mg PO BID 09/11/15 05/28/20 lisinopriL [Zestril] 20 mg PO DAILY 09/11/15 05/28/20 Glimepiride [Amaryl] 2 mg PO DAILY 02/01/20 05/28/20 Simvastatin [Zocor] 20 mg PO HS 02/01/20 05/28/20 Famotidine 40 mg PO DAILY 04/25/20 05/28/20 Gabapentin 600 mg PO TID 05/11/20 05/28/20 Gabapentin [Neurontin] 300 mg PO TID 05/11/20 05/28/20 INSULIN ASPART (NovoLOG) [NovoLOG 10 unit SQ AC-TID 05/11/20 05/28/20 (formulary)] metFORMIN HCL [Glucophage] 500 mg PO BID 05/11/20 05/28/20 HYDROcodone/APAP 10-325MG [[place] 0.5 tab PO BID PRN 05/28/20 05/28/20 10-325] Previous Rx's Medication Instructions Recorded DULoxetine HCL [Cymbalta] 20 mg PO DAILY 30 Days #30 02/27/20 capsule. Insulin Glargine [Lantus] 55 unit SQ HS 30 Days #1 vial 04/02/20 Apixaban [Eliquis] 5 mg PO BID #60 tab 04/26/20 Allergies Allergy/AdvReac Type Severity Reaction Status Date / Time atorvastatin [From Lipitor] Allergy Swelling Verified 05/31/20 10:41 ibuprofen Allergy Swelling Verified 05/31/20 10:41 pregabalin [From Lyrica] Allergy Swelling Verified 05/31/20 10:41 Review of Systems ROS Other: All systems not noted in ROS Statement are negative. <Ari Rapp - Last Filed: 05/28/20 00:07> ROS Other: All systems not noted in ROS Statement are negative. <Elif Pablo - Last Filed: 06/01/20 01:02> ROS Statement: Those systems with pertinent positive or pertinent negative responses have been documented in the HPI. Past Medical History Past Medical History: Diabetes Mellitus, Hyperlipidemia, Hypertension, Vascular Disorder Additional Past Medical History / Comment(s): uvitis glaucoma, PVD, dvt to lower left leg Last Myocardial Infarction Date:: 2005 History of Any Multi-Drug Resistant Organisms: MRSA Date of last positivie culture/infection: 02/20/20 MDRO Source:: left leg Past Surgical History: Hernia Repair, Orthopedic Surgery Additional Past Surgical History / Comment(s): aortgram w/ runnoff, eye surg implant, bilateral knee SX, left vein stripping in 02/2020 x2 Past Anesthesia/Blood Transfusion Reactions: No Reported Reaction Additional Past Anesthesia/Blood Transfusion Reaction / Comment(s): no hx blood transfusion Past Psychological History: No Psychological Hx Reported Smoking Status: Never smoker Past Alcohol Use History: Rare Past Drug Use History: Marijuana - Past Family History Mother History Unknown: Yes <Ari Rapp - Last Filed: 05/28/20 00:07> General Exam Limitations: no limitations General appearance: alert, in no apparent distress Head exam: Present: atraumatic, normocephalic, normal inspection Eye exam: Present: normal appearance, PERRL, EOMI Pupils: Present: normal accommodation ENT exam: Present: normal exam, normal oropharynx, mucous membranes moist, TM's normal bilaterally, normal external ear exam Neck exam: Present: normal inspection, full ROM. Absent: tenderness Respiratory exam: Present: normal lung sounds bilaterally. Absent: respiratory distress, wheezes, rales Cardiovascular Exam: Present: regular rate, normal rhythm, normal heart sounds Extremities exam: Present: full ROM, tenderness (Tenderness at the necrotic toe), normal capillary refill ( yesterday and), other (+1 dorsalis pedis unable to palpate posterior tibialis.). Absent: normal inspection (Necrosis noted on the left big toe. Necrotic region is senior care through the nailbed. No immediate signs of infection or discharge.) Back exam: Present: normal inspection, full ROM. Absent: tenderness Neurological exam: Present: alert, oriented X3 Psychiatric exam: Present: normal affect, normal mood Skin exam: Present: warm, dry, intact, normal color <Ari Rapp - Last Filed: 05/28/20 00:07> Course Vital Signs 05/27/20 05/28/20 05/28/20 20:54 00:44 01:41 Temperature 97.9 F 98.5 F 97.7 F Pulse Rate 76 59 L Respiratory 18 16 Rate Blood Pressure 188/69 152/83 Blood Pressure 175/77 [Left Arm Supine] O2 Sat by Pulse 100 100 99 Oximetry 05/28/20 05/28/20 02:10 03:07 Temperature 98.6 F 98.2 F Pulse Rate 72 59 L Respiratory 16 16 Rate Blood Pressure 158/96 175/98 Blood Pressure [Left Arm Supine] O2 Sat by Pulse 100 100 Oximetry Procedures - Central Line Placement Right IJ Consent Obtained: verbal consent Patient Placed on Monitor/Pulse Ox: Yes MD Prep: mask, gown, gloves Central Line Prep: Chlorhexidine scrub Local Anesthesia Used: Lidocaine 1% Amount of Anesthesia Used (mls): 6 Ultrasound Used for Placement: Yes Bloods Obtained for Lab: No Central Line Position: good blood return, all ports aspirated, flushed, capped, sutured in place with nylon Dressing Applied: Tegaderm Post Procedure X-Ray: tip of catheter in good position Patient Tolerated Procedure: well, no complications <Elif Pablo - Last Filed: 06/01/20 01:02> - Central Line Placement Right IJ Additional Comments: time out performed at 2:20 am (Elif Pablo) Medical Decision Making - Lab Data Result diagrams: 05/27/20 22:31 <Ari Rapp - Last Filed: 05/28/20 00:07> - Lab Data Result diagrams: 05/31/20 10:21 05/31/20 06:00 <Elif Pablo - Last Filed: 06/01/20 01:02> - Medical Decision Making Patient is 54-year-old male presenting to the emergency department with a chief complaint of toe pain. On physical exam, patient has a gangrenous left great toe. To gangrene is moving proximally over the past 2 weeks and is now midway through the nailbed. X-ray showed no signs of osteomyelitis. Unable to obtain IV access. Laboratory results still pending. I spoke with pharmacy who suggested patient be started on Rocephin and vancomycin. Patient will be admitted for further medical management. Case discussed with . Admitting is Dr Dyan Hess on consult Dr Batista on consult. (Ari Rapp) I was available for consultation in the emergency department. The history and physical exam were done by the midlevel provider. I was consulted for this patients care. I reviewed the case with the midlevel provider and based on their presentation of the patient, I agree with the assessment, medical decision making and plan of care as documented. The patient was evaluated by myself. I attempted multiple ultrasound guided peripheral lines which failed due to poor vasculature. As the patient requires IV antiiotics, I discussed the need for central line for which the patient agreed and stated he had multiple placed previously due to inability to obtain access. Line placed without difficulty. Chart was dictated using [employer] dictation software. Attempts were made to correct any dictation errors however some typographical errors may persist. Patient was seen during a national state of emergency due to the Covid-19 pandemic. (Elif Pablo) - Lab Data Lab Results 05/27/20 Range/Units 22:31 Sodium 139 (137-145) mmol/L Potassium 4.6 (3.5-5.1) mmol/L Chloride 106 (98-107) mmol/L Carbon Dioxide 22 (22-30) mmol/L Anion Gap 11 mmol/L BUN 29 H (9-20) mg/dL Creatinine 1.58 H (0.66-1.25) mg/dL Est GFR (CKD-EPI)AfAm 56 (>60 ml/min/1.73 sqM) Est GFR (CKD-EPI)NonAf 48 (>60 ml/min/1.73 sqM) Glucose 52 L (74-99) mg/dL Calcium 9.5 (8.4-10.2) mg/dL Total Bilirubin 0.6 (0.2-1.3) mg/dL AST 40 (17-59) U/L ALT 25 (4-49) U/L Alkaline Phosphatase 68 (38-126) U/L Total Protein 7.6 (6.3-8.2) g/dL Albumin 4.3 (3.5-5.0) g/dL Disposition Is patient prescribed a controlled substance at d/c from ED?: No Time of Disposition: 00:07 <Ari Rapp - Last Filed: 05/28/20 00:07> <Elif Pablo - Last Filed: 06/01/20 01:02> Clinical Impression: Gangrene of toe of left foot Disposition: ADMITTED IP TO THIS HOSP Condition: Stable
--- NOTE | 2020-05-27 23:10 | XR ---
EXAMINATION TYPE: XR toes LT DATE OF EXAM: 05/27/2020 COMPARISON: 05/11/2020 HISTORY: Big toe necrosis TECHNIQUE: 3 views FINDINGS: I see no fracture nor dislocation. There is no focal bone destruction. There is minor spurr ing at the first MP joint. There is soft tissue ulceration at the tip of the big toe. IMPRESSION: Soft tissue deformity unchanged compared to old exam. No specific sign of osteomyelitis.
[2020-05-27 23:44] LABS: Albumin 4.3 g/dL (3.5-5.0); Calcium 9.5 mg/dL (8.4-10.2); Total Bilirubin 0.6 mg/dL (0.2-1.3); Total Protein 7.6 g/dL (6.3-8.2)
[2020-05-27 23:46] LABS: Potassium 4.6 mmol/L (3.5-5.1)
[2020-05-27] MEDS ORDERED: VANCOMYCIN IV PER PHARMACY 1 EACH MISC MISCELLANE PRN (23:56)
[2020-05-27] MEDS ORDERED: HYDROcodone/APAP 10-325MG 1 EACH TAB PO ONE (23:58)
[2020-05-28] MEDS ORDERED: NALOXONE 0.4 MG/ML 1 ML VIAL IV PRN (00:02)
[2020-05-28] MEDS ORDERED: HYDROmorphone 0.5 MG/0.5 ML SYRINGE IVP PRN (00:02)
[2020-05-28 00:51] LABS: Glucose,Whole Blood 87 mg/dL (75-99)
[2020-05-28] MEDS ORDERED: VANCOMYCIN 1,500 MG in SODIUM CHLORIDE 0.9% 250 ML IVPB ONE (01:00)
[2020-05-28] MEDS ORDERED: MORPHINE SULFATE 4 MG/ML SYRINGE IM STA (01:35)
[2020-05-28 01:51] LABS: Basophils % (A) 0 %; Eosinophils # (A) 0.1 k/uL (0-0.7); Eosinophils % (A) 1 %; HCT 36.5 % (39.0-53.0); HGB 11.8 gm/dL (13.0-17.5); Lymphocytes # (A) 2.5 k/uL (1.0-4.8); Lymphocytes % (A) 26 %; MCH 27.8 pg (25.0-35.0); MCHC 32.4 g/dL (31.0-37.0); MCV 85.9 fL (80.0-100.0); Mean Platelet Volume 7.6; Monocytes # (A) 0.4 k/uL (0-1.0); Monocytes % (A) 4 %; Neutrophils # (A) 6.3 k/uL (1.3-7.7); Neutrophils % (A) 67 %; Platelet Count 259 k/uL (150-450); RBC 4.24 m/uL (4.30-5.90); WBC 9.5 k/uL (3.8-10.6)
[2020-05-28] MEDS ORDERED: cefTRIAXone IN SWFI 1,000 MG/10 ML SYRINGE IVP ONE ×2 (03:00)
[2020-05-28] MEDS: HYDROmorphone 1 MG/ML 1 ML SYRINGE IVP PRN ×6 (03:22→21:47)
--- NOTE | 2020-05-28 03:30 | XR ---
EXAMINATION TYPE: XR chest 1V DATE OF EXAM: 05/28/2020 COMPARISON: 10/28/2016 HISTORY: Check line placement TECHNIQUE: FINDINGS: Heart is normal. Lungs are clear of infiltrate. Costophrenic angles are clear. There are no hilar masses. There is right jugular catheter with tip in the superior vena cava. There is no pneumo thorax. IMPRESSION: Jugular catheter in good position. Normal chest. No change.
[2020-05-28] MEDS: SODIUM CHLORIDE 0.9% 1,000 ML IV SCH ×2 (04:36→06:06)
[2020-05-28 07:15] LABS: Glucose,Whole Blood 85 mg/dL (75-99)
[2020-05-28 11:34] LABS: Glucose,Whole Blood 71 mg/dL (75-99)
[2020-05-28] MEDS: GABAPENTIN 300 MG CAP PO SCH ×2 (15:32→21:43)
[2020-05-28] MEDS ORDERED: GABAPENTIN 300 MG CAP PO SCH (16:00)
[2020-05-28 16:45] LABS: Glucose,Whole Blood 262 mg/dL (75-99)
[2020-05-28] MEDS: VANCOMYCIN 1,500 MG in SODIUM CHLORIDE 0.9% 250 ML IVPB SCH (16:56)
[2020-05-28] MEDS: INSULIN ASPART (NovoLOG) 100 UNIT/ML VIAL SQ SCH ×3 (16:59→20:18)
[2020-05-28 20:13] LABS: Glucose,Whole Blood 188 mg/dL (75-99)
[2020-05-28] MEDS ORDERED: INSULIN DETEMIR (LEVEMIR) 100 UNIT/ML SYR SQ SCH (21:00)
[2020-05-28] MEDS: metFORMIN 500 MG TAB PO SCH (21:43)
[2020-05-28] MEDS: atenoloL 25 MG TAB PO SCH (21:43)
[2020-05-28] MEDS: SIMVASTATIN 20 MG PO SCH (22:41)
--- NOTE | 2020-05-28 23:10 | P.CONS ---
History of Present Illness - Reason for Consult Consult date: 05/28/20 Left big toe infection Requesting physician: Ruben Rios - Chief Complaint Left big toe pain and gangrene worse x 2 weeks - History of Present Illness Patient is a 54-year-old -[place] male with a past medical history significant for left big toe tip gangrene in this patient with underlying PAD with previous history of left leg wound infection with MRSA patient presenting to [facility] ER yesterday for evaluation of worsening pain to the left big toe that has been progressively getting worse for the last 2 weeks patient is amlodipine to be throbbing almost 10 out of 10 in severity and the [place] that he has at home was not touching it patient also mentioned a progressive worsening of the gangrene to the left big toe tip area however currently is no open wound or any drainage and the patient denies having any fever patient was evaluated by the ER physician on arrival to the patient was afebrile he did normal white count did have x-rays of the left foot which did not show any bony changes suspicious for osteomyelitis patient was started on vancomycin has been admitted to the hospital infectious disease was consulted for further management of antibiotic therapy Review of Systems Positive point has been mentioned in the HPI rest of the systems are negative Past Medical History Past Medical History: Atrial Fibrillation, Diabetes Mellitus, Deep Vein Thrombosis (DVT), Hyperlipidemia, Hypertension, Myocardial Infarction (PA), Pneumonia, Vascular Disorder Additional Past Medical History / Comment(s): uvitis glaucoma, PVD, dvt to lower left leg Last Myocardial Infarction Date:: unknown History of Any Multi-Drug Resistant Organisms: MRSA Year Discovered:: 02/20/20 MDRO Source:: left leg Past Surgical History: Hernia Repair, Orthopedic Surgery Additional Past Surgical History / Comment(s): aortgram w/ runnoff, eye surg implant, bilateral knee SX, left vein stripping in 02/2020 x2 Past Anesthesia/Blood Transfusion Reactions: No Reported Reaction Additional Past Anesthesia/Blood Transfusion Reaction / Comm: no hx blood transfusion Past Psychological History: No Psychological Hx Reported Smoking Status: Former smoker Past Alcohol Use History: Rare Additional Past Alcohol Use History / Comment(s): quit smoking at 26,started at age 17,<1ppd Past Drug Use History: Marijuana Additional Drug Use History / Comment(s): uses marijuana daily - Past Family History Mother History Unknown: Yes Brother(s) Family Medical History: COPD Additional Family Medical History / Comment(s): passed from COPD Father Family Medical History: Myocardial Infarction ([place]) Additional Family Medical History / Comment(s): passed from [place] Medications and Allergies Home Medications Medication Instructions Recorded Confirmed Type amLODIPine [Norvasc] 10 mg PO DAILY 09/11/15 05/28/20 History atenoloL [Atenolol] 25 mg PO BID 09/11/15 05/28/20 History lisinopriL [Zestril] 20 mg PO DAILY 09/11/15 05/28/20 History Glimepiride [Amaryl] 2 mg PO DAILY 02/01/20 05/28/20 History Simvastatin [Zocor] 20 mg PO HS 02/01/20 05/28/20 History DULoxetine HCL [Cymbalta] 20 mg PO DAILY 30 Days #30 02/27/20 05/28/20 Rx capsule. Insulin Glargine [Lantus] 55 unit SQ HS 30 Days #1 vial 04/02/20 05/28/20 Rx Famotidine 40 mg PO DAILY 04/25/20 05/28/20 History Apixaban [Eliquis] 5 mg PO BID #60 tab 04/26/20 05/28/20 Rx Gabapentin 600 mg PO TID 05/11/20 05/28/20 History Gabapentin [Neurontin] 300 mg PO TID 05/11/20 05/28/20 History INSULIN ASPART (NovoLOG) [NovoLOG 10 unit SQ AC-TID 05/11/20 05/28/20 History (formulary)] metFORMIN HCL [Glucophage] 500 mg PO BID 05/11/20 05/28/20 History HYDROcodone/APAP 10-325MG [[place] 0.5 tab PO BID PRN 05/28/20 05/28/20 History 10-325] Allergies Allergy/AdvReac Type Severity Reaction Status Date / Time atorvastatin [From Lipitor] Allergy Swelling Verified 05/28/20 13:47 ibuprofen Allergy Swelling Verified 05/28/20 13:47 pregabalin [From Lyrica] Allergy Swelling Verified 05/28/20 13:47 Physical Exam Vitals: Vital Signs Temp Pulse Pulse Resp BP BP Pulse Ox 05/28/20 18:38 98.0 F 67 184/87 99 05/28/20 14:58 98.1 F 70 18 166/83 99 05/28/20 07:15 17 05/28/20 07:00 98.1 F 52 L 17 138/60 100 05/28/20 04:03 18 05/28/20 03:51 97.9 F 77 18 190/83 100 05/28/20 03:07 98.2 F 59 L 16 175/98 100 05/28/20 02:10 98.6 F 72 16 158/96 100 05/28/20 00:44 98.5 F 59 L 16 152/83 100 Intake and Output 05/28/20 05/28/20 05/28/20 06:59 14:59 22:59 Output Total 350 800 Balance -350 -800 Output: Urine 350 800 Other: Voiding Method Toilet Toilet Urinal Urinal # Voids 1 Weight 74.843 kg GENERAL DESCRIPTION: Middle-aged male lying in bed, no distress. No tachypnea or accessory muscle of respiration use. HEENT: Shows Pallor , no scleral icterus. Oral mucous membrane is dry. No pharyngeal erythema or thrush NECK: Trachea central, no thyromegaly. LUNGS: Unlabored breathing. Clear to auscultation anteriorly. No wheeze or crackle. HEART: S1, S2, regular rate and rhythm. No loud murmur ABDOMEN: Soft, no tenderness , guarding or rigidity, no organomegaly EXTREMITIES: No edema of feet. Left big toe tip with gangrenous changes there is no significant surrounding swelling redness and warmth or any drainage SKIN: No rash, no masses palpable. NEUROLOGICAL: The patient is awake, alert, oriented x3, mood and affect normal. Results CBC & Chem 7: 05/28/20 01:25 05/27/20 22:31 Labs: Abnormal Lab Results - Last 24 Hours (Table) 05/27/20 05/28/20 05/28/20 Range/Units 22:31 01:25 11:33 RBC 4.24 L (4.30-5.90) m/uL Hgb 11.8 L (13.0-17.5) gm/dL Hct 36.5 L (39.0-53.0) % BUN 29 H (9-20) mg/dL Creatinine 1.58 H (0.66-1.25) mg/dL Glucose 52 L (74-99) mg/dL POC Glucose (mg/dL) 71 L (75-99) mg/dL 05/28/20 05/28/20 Range/Units 16:43 20:11 RBC (4.30-5.90) m/uL Hgb (13.0-17.5) gm/dL Hct (39.0-53.0) % BUN (9-20) mg/dL Creatinine (0.66-1.25) mg/dL Glucose (74-99) mg/dL POC Glucose (mg/dL) 262 H 188 H (75-99) mg/dL Assessment and Plan Assessment: 1- patient with her left big toe tip gangrene in this patient with underlying PAD, also with history of left leg wound infection with MRSA now presented to hospital with worsening pain more likely secondary to worsening ischemic changes to leg cellulitis less likely but not entirely excluded (1) Gangrene of toe of left foot Current Visit: Yes Status: Acute Code(s): I96 - GANGRENE, NOT ELSEWHERE CLASSIFIED SNOMED Code(s): 35875982401705115 (2) Cellulitis of left foot Current Visit: No Status: Acute Code(s): L03.116 - CELLULITIS OF LEFT LOWER LIMB SNOMED Code(s): 600179795 Plan: 1- Vancomycin pharmacy to dose target trough of 15 while watching his kidney function and Vanco trough closely 2- await vascular surgical evaluation and possible intervention We will follow on clinical condition and cultures to further adjust medication if needed Thank you for this consultation will follow this patient with you Time with Patient: Greater than 30
--- NOTE | 2020-05-29 00:01 | HP ---
HISTORY AND PHYSICAL DATE OF SERVICE: 05/28/2020 CHIEF COMPLAINTS: Left big toe gangrene as well as severe pain and failure of outpatient treatment. HISTORY OF PRESENT ILLNESS: This 54-year-old gentleman with a past medical history of significant peripheral artery disease, atrial fibrillation, diabetes mellitus, history of DVT, hypertension, hyperlipidemia being followed by Dr. Romo in the outpatient setting, was recently admitted with dry gangrene of the left big toe. Initial infection was suspected but during the recent admission, the patient was cleared for discharge and now the patient returned to the ER because complaining of severe pain which is not relieved with [place]. Dr. Dennison of vascular surgery team is planning outpatient procedure. There is no history of any fever or rigors. No history of headache, loss of consciousness, or seizures. PAST MEDICAL HISTORY: History atrial fibrillation, history of DVT, hypertension, hyperlipidemia, myocardial infarction, history of pneumonia. MEDICATIONS: Home medications are: 1. Metformin. 2. Zestril. 3. Atenolol. 4. Norvasc. 5. Zocor. 6. Lantus. 7. NovoLog scale. 8. [place]. 9. Amaryl. 10.Neurontin. 11.Gabapentin. 12.Famotidine. 13.Cymbalta. 14.Eliquis. Doses are reviewed. ALLERGIES: Allergies are LIPITOR, IBUPROFEN, LYRICA. FAMILY HISTORY: History of COPD in the family. SOCIAL HISTORY: Previous history of smoking. History of THC. REVIEW OF SYSTEMS: ENT: No diminished hearing or diminished vision. CARDIOVASCULAR SYSTEM: No angina. RESPIRATORY SYSTEM: No cough. GI: No nausea. : No dysuria. NERVOUS SYSTEM: No numbness or weakness. ALLERGY/IMMUNOLOGY: No asthma or hayfever. MUSCULOSKELETAL: As mentioned earlier. HEMATOLOGY: No history of anemia. ENDOCRINE: As mentioned earlier. CONSTITUTIONAL: As mentioned earlier. DERMATOLOGY: Negative. RHEUMATOLOGY: Negative. PSYCHIATRY: As mentioned earlier. PHYSICAL EXAMINATION: The patient is alert and oriented x3. Pulse is 70, blood pressure 166/83, respiration 18, temperature 98.1, pulse ox 99% on room air. HEENT: Conjunctivae normal. Oral mucosa moist. NECK: No jugular venous distention. No carotid bruit. No lymph node enlargement. CARDIOVASCULAR: S1, S2 muffled. No S3, no S4. RESPIRATORY: Breath sounds diminished at the bases. No rhonchi. No crackles. ABDOMEN: Soft, nontender. No mass palpable. LEGS: Pulses diminished on the left side. Otherwise, left big toe dry gangrene present significant tenderness around it. NERVOUS SYSTEM: Higher function as mentioned earlier. Some peripheral neuropathy. LYMPHATICS: No lymphadenopathy of the neck, axillae or groin. JOINTS: No active deforming arthropathy. LAB INVESTIGATIONS: At this time, WBC 9.5, hemoglobin 11.8, creatinine 1.58. ASSESSMENT: 1. Dry gangrene of the left big toe with severe excruciating pain with failure of outpatient treatment. 2. Acute renal failure possibly prerenal acute tubular necrosis. 3. Anemia, normocytic anemia of chronic disease. 4. History of atrial fibrillation chronic. 5. Diabetes mellitus type 2. 6. History of deep venous thrombosis. 7. Hypertension. 8. Hyperlipidemia. 9. Myocardial infarction. 10.History of pneumonia. 11.History of uveitis, glaucoma. 12.History of peripheral artery disease. 13.History of MRSA. 14.Remote history of nicotine dependence. 15.FULL CODE. RECOMMENDATIONS AND DISCUSSION: This 54-year-old gentleman who presented with multiple complex medical issues, we will monitor the patient closely. Continue the current medications and continue symptomatic treatment and pain medications. Otherwise Vascular Surgery consultation. Resume the home medications. Guarded prognosis because of multiple complex medical issues. Further recommendations to follow. A copy of dictation forwarded to Dr. Romo who is the primary physician. Will continue with insulin scale. MMODL / IJN: [id number] /
[2020-05-29] MEDS: VANCOMYCIN 1,500 MG in SODIUM CHLORIDE 0.9% 250 ML IVPB SCH ×2 (05:03→16:52)
[2020-05-29] MEDS: SODIUM CHLORIDE 0.9% 1,000 ML IV SCH ×2 (05:03→16:53)
[2020-05-29 07:05] LABS: Glucose,Whole Blood 141 mg/dL (75-99)
[2020-05-29] MEDS: atenoloL 25 MG TAB PO SCH ×2 (08:02→22:11)
[2020-05-29] MEDS: FAMOTIDINE 20 MG TAB PO SCH (08:02)
[2020-05-29] MEDS: GLIMEPIRIDE 2 MG TAB PO SCH (08:02)
[2020-05-29] MEDS: amLODIPine 10 MG TAB PO SCH (08:02)
[2020-05-29] MEDS: GABAPENTIN 300 MG CAP PO SCH ×3 (08:03→22:10)
[2020-05-29] MEDS: metFORMIN 500 MG TAB PO SCH (08:03)
[2020-05-29] MEDS: INSULIN ASPART (NovoLOG) 100 UNIT/ML VIAL SQ SCH ×7 (08:03→22:12)
[2020-05-29] MEDS: DULoxetine HCL 20 MG CAPSULE.DR PO SCH (08:06)
[2020-05-29] MEDS ORDERED: lisinopriL 20 MG TAB PO SCH (09:00)
[2020-05-29] MEDS: HYDROmorphone 1 MG/ML 1 ML SYRINGE IVP PRN ×3 (09:10→19:24)
[2020-05-29] MEDS: HYDROcodone/APAP 10-325MG 1 EACH TAB PO PRN ×2 (10:36→21:17)
[2020-05-29 12:02] LABS: Glucose,Whole Blood 51 mg/dL (75-99)
[2020-05-29 12:09] LABS: Glucose,Whole Blood 50 mg/dL (75-99)
[2020-05-29 12:24] LABS: Glucose,Whole Blood 43 mg/dL (75-99)
[2020-05-29 12:26] LABS: Glucose,Whole Blood 57 mg/dL (75-99)
[2020-05-29 12:43] LABS: Glucose,Whole Blood 93 mg/dL (75-99)
--- NOTE | 2020-05-29 12:57 | P.PN ---
Subjective His is admitted for a dry gangrene of the left big toe and patient will undergo bypass procedure for that as per surgery evaluated the patient. Patient was also valid by infectious disease and patient is on antibiotics. Because of his previous history of MRSA in the toe patient is also being treated for acute renal failure mostly prerenal azotemia from intravascular depletion, I'll hold off on BETITO inhibitor patient will be started on hydralazine instead for blood pressure for now. Cardiology will be consulted [facility]. Constitutional: Denied any fatigue denied any fever. Cardio vascular: denied any chest pain, palpitations Gastrointestinal denied any nausea vomiting Pulmonary: Denied any shortness of breath cough Neurologic denied any new focal deficits All inpatient medications were reviewed and appropriate changes in these medications as dictated in the interval history and assessment and plan. Objective - Vital Signs Vital signs: Vital Signs Temp 98.1 F 05/29/20 07:01 Pulse 49 L 05/29/20 07:01 Resp 16 05/29/20 07:01 BP 178/84 05/29/20 07:01 Pulse Ox 99 05/29/20 07:01 Intake & Output 05/28/20 05/29/20 05/29/20 18:59 06:59 18:59 Output Total 800 1500 Balance -800 -1500 Output: Urine 800 1500 Other: Voiding Method Toilet Urinal - Exam PHYSICAL EXAMINATION: GENERAL: The patient is alert and oriented x3, not in any acute distress. Well developed, well nourished. HEENT: Pupils are round and equally reacting to light. EOMI. No scleral icterus. No conjunctival pallor. Normocephalic, atraumatic. No pharyngeal erythema. No thyromegaly. CARDIOVASCULAR: S1 and S2 present. No murmurs, rubs, or gallops. PULMONARY: Coarse bilateral rhonchi, no wheezing was appreciated ABDOMEN: Soft, nontender, nondistended, normoactive bowel sounds. No palpable organomegaly. MUSCULOSKELETAL: No joint swelling or deformity. EXTREMITIES: No cyanosis, clubbing, or pedal edema. NEUROLOGICAL: Gross neurological examination did not reveal any focal deficits. SKIN: No rashes. - Labs CBC & Chem 7: 05/28/20 01:25 05/27/20 22:31 Labs: Abnormal Lab Results - Last 24 Hours (Table) 05/28/20 05/28/20 05/29/20 Range/Units 16:43 20:11 07:01 POC Glucose (mg/dL) 262 H 188 H 141 H (75-99) mg/dL 05/29/20 05/29/20 05/29/20 Range/Units 11:46 12:04 12:21 POC Glucose (mg/dL) 51 L 50 L 43 L (75-99) mg/dL 05/29/20 Range/Units 12:24 POC Glucose (mg/dL) 57 L (75-99) mg/dL Microbiology - Last 24 Hours (Table) 05/28/20 01:25 Blood Culture - Preliminary Blood No Growth after 24 hours Assessment and Plan Plan: -Dry gangrene of the left big toe with the severe pain: Had history of MRSA to infection in the past continue vancomycin as per surgery valid the patient and patient will undergo peripheral vascular bypass procedure. -Acute renal failure. We'll azotemia due to intravascular volume depletion, hold off on BETITO inhibitor, continue with the IV fluids will recheck the creatinine tomorrow. Nephrotoxic agents and metformin were discontinued -Type 2 diabetes mellitus blood Sugars are low uncontrolled cutting down the dose of nighttime insulin, discontinuing metformin -Hypertension uncontrolled elevated blood pressure: Hold off on lisinopril because of her acute renal failure Will use hydralazine temporally in instrumental the kidney function improves. Continue with rest of the antidepressant medications. -Severe diabetic Peripheral neuropathy -Depression -Gastroesophageal reflux disease -Severe peripheral vascular disease for which patient is on Eliquis which will be continued
[2020-05-29] MEDS: hydrALAZINE HCL 50 MG TAB PO SCH ×2 (16:08→22:10)
[2020-05-29 17:12] LABS: Glucose,Whole Blood 272 mg/dL (75-99)
--- NOTE | 2020-05-29 18:10 | P.GSCN ---
History of Present Illness Consult date: 05/29/20 History of present illness: Benny is a patient well-known to us for left lower extremity peripheral arterial disease with multiple graft occlusions, interventions, thrombectomies and stents. He continues to have dry gangrene of his great toe and pain in his foot. He has been seen as an outpatient to workup and evaluate for left femoral to below-knee bypass. Past Medical History Past Medical History: Atrial Fibrillation, Diabetes Mellitus, Deep Vein Thrombosis (DVT), Hyperlipidemia, Hypertension, Myocardial Infarction (CO), Pneumonia, Vascular Disorder Additional Past Medical History / Comment(s): uvitis glaucoma, PVD, dvt to lower left leg Last Myocardial Infarction Date:: unknown History of Any Multi-Drug Resistant Organisms: MRSA Year Discovered:: 02/20/20 MDRO Source:: left leg Past Surgical History: Hernia Repair, Orthopedic Surgery Additional Past Surgical History / Comment(s): aortgram w/ runnoff, eye surg implant, bilateral knee SX, left vein stripping in 02/2020 x2 Past Anesthesia/Blood Transfusion Reactions: No Reported Reaction Additional Past Anesthesia/Blood Transfusion Reaction / Comm: no hx blood transfusion Past Psychological History: No Psychological Hx Reported Smoking Status: Former smoker Past Alcohol Use History: Rare Additional Past Alcohol Use History / Comment(s): quit smoking at 26,started at age 17,<1ppd Past Drug Use History: Marijuana Additional Drug Use History / Comment(s): uses marijuana daily - Past Family History Mother History Unknown: Yes Brother(s) Family Medical History: COPD Additional Family Medical History / Comment(s): passed from COPD Father Family Medical History: Myocardial Infarction (CO) Additional Family Medical History / Comment(s): passed from CO Medications and Allergies Home Medications Medication Instructions Recorded Confirmed Type amLODIPine [Norvasc] 10 mg PO DAILY 09/11/15 05/28/20 History atenoloL [Atenolol] 25 mg PO BID 09/11/15 05/28/20 History lisinopriL [Zestril] 20 mg PO DAILY 09/11/15 05/28/20 History Glimepiride [Amaryl] 2 mg PO DAILY 02/01/20 05/28/20 History Simvastatin [Zocor] 20 mg PO HS 02/01/20 05/28/20 History DULoxetine HCL [Cymbalta] 20 mg PO DAILY 30 Days #30 06/08/20 09/07/20 Rx capsule. Insulin Glargine [Lantus] 55 unit SQ HS 30 Days #1 vial 04/02/20 05/28/20 Rx Famotidine 40 mg PO DAILY 04/25/20 05/28/20 History Apixaban [Eliquis] 5 mg PO BID #60 tab 04/26/20 05/28/20 Rx Gabapentin 600 mg PO TID 05/11/20 05/28/20 History Gabapentin [Neurontin] 300 mg PO TID 05/11/20 05/28/20 History INSULIN ASPART (NovoLOG) [NovoLOG 10 unit SQ AC-TID 05/11/20 05/28/20 History (formulary)] metFORMIN HCL [Glucophage] 500 mg PO BID 05/11/20 05/28/20 History HYDROcodone/APAP 10-325MG [[place] 0.5 tab PO BID PRN 05/28/20 05/28/20 History 10-325] Allergies Allergy/AdvReac Type Severity Reaction Status Date / Time atorvastatin [From Lipitor] Allergy Swelling Verified 05/28/20 13:47 ibuprofen Allergy Swelling Verified 05/28/20 13:47 pregabalin [From Lyrica] Allergy Swelling Verified 05/28/20 13:47 Surgical - Exam Vital Signs Temp Pulse Resp BP Pulse Ox 97.9 F 76 18 188/69 100 05/27/20 20:54 05/27/20 20:54 05/27/20 20:54 05/27/20 20:54 05/27/20 20:54 Genitals a pleasant cooperative male in no acute distress. HEENT is normocephalic, atraumatic, extraocular motion intact. Heart regular at this time. Lungs are clear bilaterally. Abdomen is soft, nontender nondistended. E xtremity show no clubbing, cyanosis or edema. There is left great toe dry gangrene with periwound ischemia. No evidence of infection. Normal mood and affect. Cranial nerves II through XII grossly intact Results - Labs 05/28/20 01:25 05/27/20 22:31 Abnormal Lab Results - Last 24 Hours (Table) 05/28/20 05/29/20 05/29/20 Range/Units 20:11 07:01 11:46 POC Glucose (mg/dL) 188 H 141 H 51 L (75-99) mg/dL 05/29/20 05/29/20 05/29/20 Range/Units 12:04 12:21 12:24 POC Glucose (mg/dL) 50 L 43 L 57 L (75-99) mg/dL 05/29/20 Range/Units 17:10 POC Glucose (mg/dL) 272 H (75-99) mg/dL Microbiology - Last 24 Hours (Table) 05/28/20 01:25 Blood Culture - Preliminary Blood No Growth after 24 hours Assessment and Plan Assessment: #1 peripheral arterial disease #2 medical noncompliance #3 tobacco abuse Plan: Given the patient's repeat hospitalizations for the same issue and further outpatient workup having been performed, we will plan to go forth with his bypass this admission. We will obtain medical and cardiac clearances. We'll discontinue any oral anticoagulation at this time because those were even to maintain the previous bypass and is now occluded
[2020-05-29 20:58] LABS: Glucose,Whole Blood 183 mg/dL (75-99)
[2020-05-29] MEDS ORDERED: INSULIN DETEMIR (LEVEMIR) 100 UNIT/ML SYR SQ SCH (21:00)
[2020-05-29] MEDS: SIMVASTATIN 20 MG PO SCH (22:14)
--- NOTE | 2020-05-29 23:08 | PN ---
PROGRESS NOTE DATE OF SERVICE: 05/29/2020 REASON FOR FOLLOWUP: Left big toe wound and a question of cellulitis. INTERVAL HISTORY: The patient is currently afebrile, has been breathing comfortably. Denies having any chest pain or any cough. No nausea. No vomiting. No abdominal pain. Overall pain and discomfort to the left big toe is currently slightly improved after pain medication. PHYSICAL EXAMINATION: Blood pressure 162/74 with a pulse of 65, temperature 97.9. He is 100% on room air. General description is a middle-aged male lying in bed in no distress. RESPIRATORY SYSTEM: Unlabored breathing. Clear to auscultation anteriorly. HEART: S1, S2. Regular rate and rhythm. ABDOMEN: Soft. No tenderness. Left big toe with necrotic area. No or drainage. LABS: No new labs have been obtained today. DIAGNOSTIC IMPRESSION AND PLAN: 1. Patient with a left big toe tip necrotic wound with underlying PAD. The patient is currently covered with vancomycin. 2. History of methicillin-resistant Staphylococcus aeruginosa infection. Possible surgical intervention during this admission, as per discussion with the vascular surgeon. Continue with supportive care. MMODL / IJN: [id number] /
[2020-05-30] MEDS: HYDROmorphone 1 MG/ML 1 ML SYRINGE IVP PRN ×3 (02:34→08:28)
[2020-05-30] MEDS ORDERED: VANCOMYCIN TROUGH DUE 1 EACH MISC MISCELLANE ONE (04:00)
[2020-05-30 04:24] LABS: African American GFR (CKD) >90 (>60 ml/min/1.73 sqM); Anion Gap 4 mmol/L; Blood Urea Nitrogen 12 mg/dL (9-20); Calcium 8.9 mg/dL (8.4-10.2); Carbon Dioxide 30 mmol/L (22-30); Chloride 100 mmol/L (98-107); Glucose 230 mg/dL (74-99); Non-African American GFR(CKD) 88 (>60 ml/min/1.73 sqM); Potassium 4.8 mmol/L (3.5-5.1); Sodium 134 mmol/L (137-145)
[2020-05-30 05:05] LABS: Basophils % (A) 0 %; Eosinophils # (A) 0.2 k/uL (0-0.7); Eosinophils % (A) 4 %; HCT 27.3 % (39.0-53.0); Lymphocytes # (A) 1.9 k/uL (1.0-4.8); Lymphocytes % (A) 38 %; MCH 27.6 pg (25.0-35.0); MCHC 31.7 g/dL (31.0-37.0); MCV 87.1 fL (80.0-100.0); Mean Platelet Volume 8.2; Monocytes # (A) 0.4 k/uL (0-1.0); Monocytes % (A) 8 %; Neutrophils # (A) 2.5 k/uL (1.3-7.7); Neutrophils % (A) 49 %; RBC 3.13 m/uL (4.30-5.90); RDW 13.9 % (11.5-15.5); WBC 5.1 k/uL (3.8-10.6)
[2020-05-30 05:10] LABS: HGB 8.7 gm/dL (13.0-17.5)
[2020-05-30] MEDS: VANCOMYCIN 1,500 MG in SODIUM CHLORIDE 0.9% 250 ML IVPB SCH ×2 (05:39→16:44)
[2020-05-30] MEDS: SODIUM CHLORIDE 0.9% 1,000 ML IV SCH ×2 (06:12→19:30)
[2020-05-30 06:45] LABS: Platelet Count 88 k/uL (150-450)
[2020-05-30 06:50] LABS: Glucose,Whole Blood 240 mg/dL (75-99)
[2020-05-30] MEDS: INSULIN ASPART (NovoLOG) 100 UNIT/ML VIAL SQ SCH ×7 (08:10→21:53)
[2020-05-30] MEDS: FAMOTIDINE 20 MG TAB PO SCH (08:28)
[2020-05-30] MEDS: GLIMEPIRIDE 2 MG TAB PO SCH (08:28)
[2020-05-30] MEDS: hydrALAZINE HCL 50 MG TAB PO SCH ×3 (08:29→21:54)
[2020-05-30] MEDS: atenoloL 25 MG TAB PO SCH ×2 (08:29→21:54)
[2020-05-30] MEDS: GABAPENTIN 300 MG CAP PO SCH ×3 (08:29→21:54)
[2020-05-30] MEDS: DULoxetine HCL 20 MG CAPSULE.DR PO SCH (08:29)
[2020-05-30] MEDS: amLODIPine 10 MG TAB PO SCH (08:29)
[2020-05-30 11:54] LABS: Glucose,Whole Blood 112 mg/dL (75-99)
--- NOTE | 2020-05-30 12:42 | P.PN ---
Subjective Progress Note Date: 05/30/20 Principal diagnosis: dry gangrene left great toe, peripheral arterial disease The patient was seen and examined at the bedside. He states he still having pain to the left great toe. He has seen Dr. Garnett in the outpatient setting, and has had vein mapping done. He denies any shortness of breath, chest pain, fever, or chills. Objective - Vital Signs Vital signs: Vital Signs Temp 97.8 F 05/30/20 07:00 Pulse 54 L 05/30/20 07:00 Resp 18 05/30/20 07:00 BP 169/82 05/30/20 07:00 Pulse Ox 99 05/30/20 07:00 Intake & Output 05/29/20 05/30/20 05/30/20 18:59 06:59 18:59 Intake Total 720 1500 300 Balance 720 1500 300 Weight 74.843 kg Intake: Intake, IV Titration 900 Amount Sodium Chloride 0.9% 1, 900 000 ml @ 75 mls/hr IV . [id number] [facility] Rx#:[id number] Oral 720 600 300 Other: # Voids 2 1 - Exam General appearance: The patient is alert, oriented, in no acute distress. HET: Head is normocephalic and atraumatic. Neck: Supple without lymphadenopathy. Trachea midline. Heart: S1 S2. Regular rate and rhythm. Lungs: Lungs are clear bilaterally Abdomen: Soft, nontender, nondistended with bowel sounds. No peritoneal signs. No palpable organomegaly or masses. Extremities: no clubbing, cyanosis, or edema. There is left great toe dry gangrene with wound ischemia. There is no drainage or malodor noted. Neurological: No focal deficits. Strength and sensation are grossly intact. - Labs CBC & Chem 7: 05/30/20 04:46 05/30/20 03:55 Labs: Abnormal Lab Results - Last 24 Hours (Table) 05/29/20 05/29/20 05/30/20 Range/Units 17:10 20:58 03:55 RBC (4.30-5.90) m/uL Hgb (13.0-17.5) gm/dL Hct (39.0-53.0) % Plt Count (150-450) k/uL Sodium 134 L (137-145) mmol/L Glucose 230 H (74-99) mg/dL POC Glucose (mg/dL) 272 H 183 H (75-99) mg/dL 05/30/20 05/30/20 05/30/20 Range/Units 04:46 06:48 11:53 RBC 3.13 L (4.30-5.90) m/uL Hgb 8.7 L D (13.0-17.5) gm/dL Hct 27.3 L (39.0-53.0) % Plt Count 88 L D (150-450) k/uL Sodium (137-145) mmol/L Glucose (74-99) mg/dL POC Glucose (mg/dL) 240 H 112 H (75-99) mg/dL Microbiology - Last 24 Hours (Table) 05/28/20 01:25 Blood Culture - Preliminary Blood No Growth after 48 hours Assessment and Plan Assessment: #1 peripheral arterial disease #2 medical noncompliance #3 tobacco abuse Plan: Given the patient's repeat hospitalizations for the same issue and further outpatient workup having been performed, we will plan to go forth with his left femoral-tibial bypass with vein tomorrow with Dr. Garnett. Cardiac clearance has been obtained. Patient to be nothing by mouth after midnight. The above dictated assessment and findings were discussed with Dr. Hess. The impression and plan of care have been directed as dictated.
--- NOTE | 2020-05-30 12:48 | P.PN ---
Subjective HISTORY OF PRESENTING ILLNESS This is a pleasant 54-year-old male past medical history significant for myocardial infarction 2005, peripheral vascular disease, hypertension, dyslipidemia, chronic nicotine dependence, frequent lower extremity revascularizations and diabetes mellitus. He follows in the office with Dr. Negron. He saw him in the office 05/24/2020 for pre-operative evaluation and was cleared for surgery. He is scheduled to undergo left femoral to [id number] bypass with Dr. Hess tomorrow. Chest x-ray on admission is negative for an acute cardiopulmonary process. Laboratory data reviewed, WBC 5.1, hemoglobin 8.7, platelets 88, sodium 134, potassium 4.8, creatinine 0.97. Currently maintained on Eliquis 5 mg twice a day, simvastatin 20 mg daily, amlodipine 10 mg daily, atenolol 25 mg twice a day and lisinopril 20 mg daily. Most recent stress test performed in the office was December 2018 revealing a fixed inferior wall defect with no evidence of reversibility. Most recent echocardiogram obtained in the office 2018 revealed preserved LV systolic function with ejection fraction 55%. He is seen and examined resting comfortably lying flat in bed in no acute distress. He has no symptoms of chest pain, shortness of breath, dizziness or palpitations. PHYSICAL EXAMINATION Blood pressure 169/82 heart rate 54 afebrile and maintaining oxygen saturation on room air. CONSTITUTIONAL: No apparent distress. HEENT: Head is normocephalic. Pupils are equal, round. Sclerae anicteric. Mucous membranes of the mouth are moist. No JVD. No carotid bruit. CHEST EXAMINATION: Lungs are clear to auscultation. No chest wall tenderness is noted on palpation or with deep breathing. HEART EXAMINATION: Regular rate and rhythm. S1, S2 heard. No murmurs, gallops or rub. EXTREMITIES: Left great toe gangrene, no lower extremity swelling. ASSESSMENT Peripheral arterial disease Hypertension Dyslipidemia Diabetes mellitus Chronic nicotine dependence Noncompliance PLAN Stable from a cardiac perspective to undergo above stated procedure. Resume lisinopril as previously ordered. Office records reviewed and there is no documented history of afib in the past. Nurse Practitioner note has been reviewed, I agree with a documented findings and plan of care. Patient was seen and examined. Objective - Vital Signs Vital signs: Vital Signs Temp 97.8 F 05/30/20 07:00 Pulse 54 L 05/30/20 07:00 Resp 18 05/30/20 07:00 BP 169/82 05/30/20 07:00 Pulse Ox 99 05/30/20 07:00 Intake & Output 05/29/20 05/30/20 05/30/20 18:59 06:59 18:59 Intake Total 720 1500 300 Balance 720 1500 300 Weight 74.843 kg Intake: Intake, IV Titration 900 Amount Sodium Chloride 0.9% 1, 900 000 ml @ 75 mls/hr IV . [id number] [facility] Rx#:[id number] Oral 720 600 300 Other: # Voids 2 1 - Labs CBC & Chem 7: 05/30/20 04:46 05/30/20 03:55 Labs: Abnormal Lab Results - Last 24 Hours (Table) 05/29/20 05/29/20 05/30/20 Range/Units 17:10 20:58 03:55 RBC (4.30-5.90) m/uL Hgb (13.0-17.5) gm/dL Hct (39.0-53.0) % Plt Count (150-450) k/uL Sodium 134 L (137-145) mmol/L Glucose 230 H (74-99) mg/dL POC Glucose (mg/dL) 272 H 183 H (75-99) mg/dL 05/30/20 05/30/20 05/30/20 Range/Units 04:46 06:48 11:53 RBC 3.13 L (4.30-5.90) m/uL Hgb 8.7 L D (13.0-17.5) gm/dL Hct 27.3 L (39.0-53.0) % Plt Count 88 L D (150-450) k/uL Sodium (137-145) mmol/L Glucose (74-99) mg/dL POC Glucose (mg/dL) 240 H 112 H (75-99) mg/dL Microbiology - Last 24 Hours (Table) 05/28/20 01:25 Blood Culture - Preliminary Blood No Growth after 48 hours
[2020-05-30] MEDS: lisinopriL 20 MG TAB PO SCH (12:58)
--- NOTE | 2020-05-30 13:26 | P.PN ---
Subjective Progress Note Date: 05/30/20 Principal diagnosis: This is a 54-year-old male who was recently admitted for a dry gangrene of the left big toe and patient will undergo bypass procedure for that as per surgery e valuated the patient. Patient was also valid by infectious disease and patient is on antibiotics. Because of his previous history of MRSA in the toe patient is also being treated for acute renal failure mostly prerenal azotemia from intravascular depletion, I'll hold off on BETITO inhibitor patient will be started on hydralazine instead for blood pressure for now. Cardiology will be consulted for medical clearance as per vascular surgery request. Constitutional: Denied any fatigue denied any fever. Cardio vascular: denied any chest pain, palpitations Gastrointestinal denied any nausea vomiting Pulmonary: Denied any shortness of breath cough Neurologic denied any new focal deficits All inpatient medications were reviewed and appropriate changes in these medications as dictated in the interval history and assessment and plan. 05/30/2020 A she is seen and evaluated and follow-up with no acute overnight issues. Patient was having some difficulty with sleeping and requesting a sleep aid. One has been ordered. Patient continues to have some left foot discomfort although states is manageable at this time. Patient is maintained on IV hydration and current sodium is 134 with a potassium of 4.8, BUN is 12, creatinine is 0.97. Blood sugars being closely monitored as they're slightly elevated and will continue sliding scale and long-acting at this time. Patient is scheduled to undergo left femoral to below the knee bypass in the morning with vascular surgery. Patient is maintained on IV vancomycin and will continue at this time. Infectious disease is following. Cardiology consulted for medical clearance and currently pending at this time. Review of systems: Constitutional: No reports of fatigue, fever, or chills Cardiovascular: No reports of chest pain or palpitations Respiratory: No reports of shortness of breath or cough GI: No reports of nausea, vomiting, or diarrhea : No reports of dysuria or retention Neurovascular: No reports of weakness or numbness All medications have been reviewed Objective - Vital Signs Vital signs: Vital Signs Temp 97.8 F 05/30/20 07:00 Pulse 54 L 05/30/20 07:00 Resp 18 05/30/20 07:00 BP 169/82 05/30/20 07:00 Pulse Ox 99 05/30/20 07:00 Intake & Output 09/05/1005/30/20 05/30/20 18:59 06:59 18:59 Intake Total 720 1500 300 Balance 720 1500 300 Weight 74.843 kg Intake: Intake, IV Titration 900 Amount Sodium Chloride 0.9% 1, 900 000 ml @ 75 mls/hr IV . [id number] DENNISE Rx#:[id number] Oral 720 600 300 Other: # Voids 2 1 - Exam GENERAL: The patient is alert and oriented x3, not in any acute distress. Well developed, well nourished. HEENT: Pupils are round and equally reacting to light. EOMI. No scleral icterus. No conjunctival pallor. Normocephalic, atraumatic. No pharyngeal erythema. No thyromegaly. CARDIOVASCULAR: S1 and S2 present. No murmurs, rubs, or gallops. PULMONARY: Coarse bilateral rhonchi, no wheezing was appreciated ABDOMEN: Soft, nontender, nondistended, normoactive bowel sounds. No palpable organomegaly. MUSCULOSKELETAL: No joint swelling or deformity. EXTREMITIES: No cyanosis, clubbing, or pedal edema. Left great toe gangrene noted NEUROLOGICAL: Gross neurological examination did not reveal any focal deficits. SKIN: No rashes. - Labs CBC & Chem 7: 05/30/20 04:46 05/30/20 03:55 Labs: Abnormal Lab Results - Last 24 Hours (Table) 05/29/20 05/29/20 05/29/20 Range/Units 12:04 12:21 12:24 RBC (4.30-5.90) m/uL Hgb (13.0-17.5) gm/dL Hct (39.0-53.0) % Plt Count (150-450) k/uL Sodium (137-145) mmol/L Glucose (74-99) mg/dL POC Glucose (mg/dL) 50 L 43 L 57 L (75-99) mg/dL 05/29/20 05/29/20 05/30/20 Range/Units 17:10 20:58 03:55 RBC (4.30-5.90) m/uL Hgb (13.0-17.5) gm/dL Hct (39.0-53.0) % Plt Count (150-450) k/uL Sodium 134 L (137-145) mmol/L Glucose 230 H (74-99) mg/dL POC Glucose (mg/dL) 272 H 183 H (75-99) mg/dL 05/30/20 05/30/20 05/30/20 Range/Units 04:46 06:48 11:53 RBC 3.13 L (4.30-5.90) m/uL Hgb 8.7 L D (13.0-17.5) gm/dL Hct 27.3 L (39.0-53.0) % Plt Count 88 L D (150-450) k/uL Sodium (137-145) mmol/L Glucose (74-99) mg/dL POC Glucose (mg/dL) 240 H 112 H (75-99) mg/dL Microbiology - Last 24 Hours (Table) 05/28/20 01:25 Blood Culture - Preliminary Blood No Growth after 48 hours Assessment and Plan Assessment: -Dry gangrene of the left big toe with severe pain: Had history of MRSA to infection in the past continue vancomycin. Vascular surgery following and mani ent will undergo peripheral vascular bypass procedure in the morning. -Acute renal failure. Prerenal azotemia due to intravascular volume depletion, hold off on BETITO inhibitor, continue with the IV fluids will recheck the creatinine tomorrow. Creatinine improved and is currently 0.97 -Type 2 diabetes mellitus blood Sugars are low uncontrolled, and also hyperglycemia. We'll continue with long-acting and sliding scale and monitor closely. Patient will be nothing by mouth at midnight for procedure in the morning -Hypertension uncontrolled elevated blood pressure: Hold off on lisinopril because of her acute renal failure. Will continue with hydralazine and other home medications and monitor closely. -Severe diabetic Peripheral neuropathy -Depression -Gastroesophageal reflux disease -Severe peripheral vascular disease, anticoagulant on hold for procedure in the morning and will discuss with vascular surgery and resuming Eliquis Plan: Continue current medications, management, and symptomatic treatment. Patient is currently maintained on IV antibiotics in the form of vancomycin and will continue. Infectious disease is following. Patient is scheduled to undergo bypass of the left lower extremity with vascular surgery in the morning. Will continue to monitor vital signs and labs closely and continue with current medications along with sliding scale and long-acting as patient will be nothing by mouth at midnight. Anticoagulation continues to be on hold and will discuss with vascular surgery about when to resume. Will repeat a.m. labs. Further recommendations to follow.
--- NOTE | 2020-05-30 16:44 | PN ---
PROGRESS NOTE DATE OF SERVICE: 05/30/2020 REASON FOR FOLLOWUP: Left big toe necrotic tip and a question of cellulitis. INTERVAL HISTORY: The patient is currently afebrile. The patient's pain to the left big toe is slightly controlled. The patient denies having any chest pain or shortness of breath or cough. No nausea, vomiting, abdominal pain or diarrhea. PHYSICAL EXAMINATION: Blood pressure 169/82 with a pulse of 54, temperature 97.8. He is 99% on room air. General description is a middle-aged male lying in bed in no distress. RESPIRATORY SYSTEM: Unlabored breathing. Clear to auscultation anteriorly. HEART: S1, S2. Regular rate and rhythm. ABDOMEN: Soft. No tenderness. Left big toe tip with a necrotic wound. No surrounding redness or drainage. LABS: Hemoglobin 8.7, white count 5.1. BUN of 12, creatinine 0.97. Blood culture negative. DIAGNOSTIC IMPRESSION AND PLAN: Patient with left big toe tip necrotic area with underlying peripheral arterial disease with concern for possible cellulitis. Patient is covered with vancomycin. Possible surgical intervention tomorrow. Continue with supportive care. MMODL / IJN: [id number] /
[2020-05-30 16:46] LABS: Glucose,Whole Blood 185 mg/dL (75-99)
[2020-05-30 21:08] LABS: Glucose,Whole Blood 371 mg/dL (75-99)
[2020-05-30] MEDS: INSULIN DETEMIR (LEVEMIR) 100 UNIT/ML SYR SQ SCH (21:54)
[2020-05-30] MEDS: SIMVASTATIN 20 MG PO SCH (22:22)
[2020-05-30] MEDS: TEMAZEPAM 15 MG CAP PO PRN (22:41)
[2020-05-31] MEDS: VANCOMYCIN 1,500 MG in SODIUM CHLORIDE 0.9% 250 ML IVPB SCH ×2 (06:08→18:28)
[2020-05-31 06:43] LABS: Potassium 4.2 mmol/L (3.5-5.1)
[2020-05-31 06:46] LABS: Glucose,Whole Blood 127 mg/dL (75-99)
[2020-05-31] MEDS: INSULIN ASPART (NovoLOG) 100 UNIT/ML VIAL SQ SCH ×7 (06:52→21:03)
[2020-05-31] MEDS: GABAPENTIN 300 MG CAP PO SCH ×3 (06:53→21:02)
[2020-05-31] MEDS: amLODIPine 10 MG TAB PO SCH (06:53)
[2020-05-31] MEDS: hydrALAZINE HCL 50 MG TAB PO SCH ×3 (06:53→21:02)
[2020-05-31] MEDS: GLIMEPIRIDE 2 MG TAB PO SCH (06:53)
[2020-05-31] MEDS: FAMOTIDINE 20 MG TAB PO SCH (06:53)
[2020-05-31] MEDS: DULoxetine HCL 20 MG CAPSULE.DR PO SCH (06:53)
[2020-05-31] MEDS: atenoloL 25 MG TAB PO SCH ×3 (06:53→21:02)
[2020-05-31] MEDS: lisinopriL 20 MG TAB PO SCH (06:53)
[2020-05-31 10:28] LABS: Basophils # (A) 0.1 k/uL (0-0.2); Basophils % (A) 1 %; Eosinophils # (A) 0.3 k/uL (0-0.7); Eosinophils % (A) 4 %; HCT 36.9 % (39.0-53.0); Lymphocytes # (A) 2.4 k/uL (1.0-4.8); Lymphocytes % (A) 33 %; MCH 27.7 pg (25.0-35.0); MCV 86.6 fL (80.0-100.0); Mean Platelet Volume 8.2; Monocytes # (A) 0.6 k/uL (0-1.0); Monocytes % (A) 8 %; Neutrophils # (A) 3.9 k/uL (1.3-7.7); Neutrophils % (A) 53 %; RBC 4.26 m/uL (4.30-5.90); RDW 13.9 % (11.5-15.5); WBC 7.3 k/uL (3.8-10.6)
[2020-05-31 10:33] LABS: Platelet Count 93 k/uL (150-450)
[2020-05-31 10:34] LABS: HGB 11.8 gm/dL (13.0-17.5)
[2020-05-31 11:02] LABS: Glucose,Whole Blood 92 mg/dL (75-99)
[2020-05-31] MEDS ORDERED: IV FLUID CONTINUATION 1,000 ML IV ONE (11:02)
[2020-05-31] MEDS ORDERED: ONDANSETRON 4 MG/2 ML VIAL ONE (11:04)
[2020-05-31] MEDS ORDERED: MIDAZOLAM 2 MG/2 ML VIAL IV ONE (11:11)
[2020-05-31] MEDS ORDERED: DEXAMETHASONE SOD PHOSPHATE 10 MG/ML 1 ML VIAL IV ONE (11:12)
[2020-05-31] MEDS ORDERED: ONDANSETRON 4 MG/2 ML VIAL IVP ONE (11:12)
[2020-05-31] MEDS ORDERED: ROCURONIUM BROMIDE 10 MG/ML 5 ML VIAL IV ONE (12:59)
[2020-05-31] MEDS ORDERED: NEOSTIGMINE 1 MG/ML 10 ML VIAL ONE (12:59)
[2020-05-31] MEDS ORDERED: fentaNYL (PF) 50 MCG/ML 2 ML AMP ONE (12:59)
[2020-05-31] MEDS ORDERED: GLYCOPYRROLATE 0.2 MG/ML 2 ML VIAL ONE (12:59)
[2020-05-31] MEDS ORDERED: HYDROmorphone (PF) 1 MG/ML ONE (12:59)
[2020-05-31] MEDS ORDERED: MIDAZOLAM 2 MG/2 ML VIAL ONE (12:59)
[2020-05-31] MEDS ORDERED: LABETALOL 5 MG/ML VIAL MDV ONE (12:59)
[2020-05-31] MEDS ORDERED: WATER FOR INJECTION, STERILE 10 ML VIAL IV ONE (12:59)
[2020-05-31] MEDS ORDERED: LIDOCAINE 1% INJ 10MG/ML (20 ML MDV) ONE (12:59)
[2020-05-31] MEDS ORDERED: ePHEDrine SULFATE/0.9% NACL/PF 50 MG/5 ML SYRINGE IV ONE (12:59)
[2020-05-31] MEDS ORDERED: PROPOFOL 10 MG/ML 20 ML VIAL IV ONE (12:59)
[2020-05-31 13:02] LABS: Glucose,Whole Blood 98 mg/dL (75-99)
[2020-05-31] MEDS ORDERED: ceFAZolin 1,000 MG VIAL IVPB ONE (13:43)
[2020-05-31] MEDS ORDERED: HEPARIN SODIUM 1,000 UN/ML (10ML VL) IRRIGATION ONE (13:53)
[2020-05-31 14:06] LABS: Glucose,Whole Blood 118 mg/dL (75-99)
[2020-05-31] MEDS ORDERED: ceFAZolin 1,000 MG in SODIUM CHLORIDE 0.9% 1,000 ML IRRIGATION ONE (14:13)
[2020-05-31] MEDS ORDERED: SODIUM CHLORIDE 0.9% 1,000 ML IV ONE (14:43)
--- NOTE | 2020-05-31 14:54 | P.PN ---
Subjective Progress Note Date: 05/31/20 Principal diagnosis: This is a 54-year-old male who was recently admitted for a dry gangrene of the left big toe and patient will undergo bypass procedure for that as per surgery e valuated the patient. Patient was also valid by infectious disease and patient is on antibiotics. Because of his previous history of MRSA in the toe patient is also being treated for acute renal failure mostly prerenal azotemia from intravascular depletion, I'll hold off on BETITO inhibitor patient will be started on hydralazine instead for blood pressure for now. Cardiology will be consulted for medical clearance as per vascular surgery request. Constitutional: Denied any fatigue denied any fever. Cardio vascular: denied any chest pain, palpitations Gastrointestinal denied any nausea vomiting Pulmonary: Denied any shortness of breath cough Neurologic denied any new focal deficits All inpatient medications were reviewed and appropriate changes in these medications as dictated in the interval history and assessment and plan. 05/30/2020 Patient is seen and evaluated and follow-up with no acute overnight issues. Patient was having some difficulty with sleeping and requesting a sleep aid. One has been ordered. Patient continues to have some left foot discomfort although states is manageable at this time. Patient is maintained on IV hydration and current sodium is 134 with a potassium of 4.8, BUN is 12, creatinine is 0.97. Blood sugars being closely monitored as they're slightly elevated and will continue sliding scale and long-acting at this time. Patient is scheduled to undergo left femoral to below the knee bypass in the morning with vascular surgery. Patient is maintained on IV vancomycin and will continue at this time. Infectious disease is following. Cardiology consulted for medical clearance and currently pending at this time. Review of systems: Constitutional: No reports of fatigue, fever, or chills Cardiovascular: No reports of chest pain or palpitations Respiratory: No reports of shortness of breath or cough GI: No reports of nausea, vomiting, or diarrhea : No reports of dysuria or retention Neurovascular: No reports of weakness or numbness All medications have been reviewed Patient is seen in follow-up with no acute overnight issues. Patient currently nothing by mouth and awaiting to have left lower extremity bypass with vascular surgery today. Hemoglobin is stable at 11.8, white blood count is 7.3, blood sugars are being closely monitored and long-acting dose was decreased and will monitor after procedure and resume normal dose once patient is eating. Currently denies any chest pain, shortness of breath, or palpitations. Patient is afebrile. No reports of nausea or vomiting and patient has been nothing by mouth since midnight for the procedure. Will repeat a.m. labs and discuss with vascular surgery about resuming anticoagulation status post procedure. Objective - Vital Signs Vital signs: Vital Signs Temp 98.5 F 05/31/20 10:42 Pulse 51 L 05/31/20 11:30 Resp 16 05/31/20 11:30 BP 156/69 05/31/20 11:30 Pulse Ox 100 05/31/20 11:30 Intake & Output 05/30/20 05/31/20 05/31/20 18:59 06:59 18:59 Intake Total 600 Balance 600 Weight 74.843 kg Intake: Oral 600 Other: Voiding Method Toilet Toilet Urinal Urinal # Voids 3 2 - Exam GENERAL: The patient is alert and oriented x3, not in any acute distress. Well developed, well nourished. HEENT: Pupils are round and equally reacting to light. EOMI. No scleral icterus. No conjunctival pallor. Normocephalic, atraumatic. No pharyngeal erythema. No thyromegaly. CARDIOVASCULAR: S1 and S2 present. No murmurs, rubs, or gallops. PULMONARY: Diminished breath sounds bilaterally with a few scattered rhonchi n oted. ABDOMEN: Soft, nontender, nondistended, normoactive bowel sounds. No palpable organomegaly. MUSCULOSKELETAL: No joint swelling or deformity. EXTREMITIES: No cyanosis, clubbing, or pedal edema. Left great toe gangrene noted NEUROLOGICAL: Gross neurological examination did not reveal any focal deficits. SKIN: No rashes. - Labs CBC & Chem 7: 05/31/20 10:21 05/31/20 06:00 Labs: Abnormal Lab Results - Last 24 Hours (Table) 05/30/20 05/30/20 05/31/20 Range/Units 16:45 21:07 06:00 RBC (4.30-5.90) m/uL Hgb (13.0-17.5) gm/dL Hct (39.0-53.0) % Plt Count (150-450) k/uL Glucose 129 H (74-99) mg/dL POC Glucose (mg/dL) 185 H 371 H (75-99) mg/dL 05/31/20 05/31/20 Range/Units 06:44 10:21 RBC 4.26 L (4.30-5.90) m/uL Hgb 11.8 L D (13.0-17.5) gm/dL Hct 36.9 L (39.0-53.0) % Plt Count 93 L (150-450) k/uL Glucose (74-99) mg/dL POC Glucose (mg/dL) 127 H (75-99) mg/dL Microbiology - Last 24 Hours (Table) 05/28/20 01:25 Blood Culture - Preliminary Blood No Growth after 72 hours Assessment and Plan Assessment: -Dry gangrene of the left big toe with severe pain: Had history of MRSA to infection in the past continue vancomycin. Vascular surgery following patient scheduled to undergo left lower extremity peripheral vascular bypass procedure today. -Acute renal failure. Prerenal azotemia due to intravascular volume depletion, hold off on BETITO inhibitor, continue with the IV fluids, improving. Will repeat a.m. labs -Type 2 diabetes mellitus blood Sugars are low uncontrolled, and also hyperglycemia. We'll continue with long-acting and sliding scale and monitor closely. Patient will be nothing by mouth at midnight for procedure in the morning and long-acting dose was decreased and once diet is resumed will likely resume home medication dose. -Hypertension uncontrolled elevated blood pressure: Hold off on lisinopril because of her acute renal failure. Will continue with hydralazine and other home medications and monitor closely. -Severe diabetic Peripheral neuropathy -Depression -Gastroesophageal reflux disease -Severe peripheral vascular disease, anticoagulant on hold for procedure in the morning and will discuss with vascular surgery and resuming Eliquis Plan: Continue current medications, management, and symptomatic treatment. Patient is currently maintained on IV antibiotics in the form of vancomycin and will continue. Infectious disease is following. Patient is scheduled to undergo bypass of the left lower extremity with vascular surgery this morning. Will continue to monitor vital signs and labs closely and continue with current medications along with sliding scale and long-acting as patient will be nothing by mouth at midnight. Anticoagulation continues to be on hold and will discuss with vascular surgery about when to resume. Will repeat a.m. labs. Further recommendations to follow.
--- NOTE | 2020-05-31 16:16 | P.OP ---
Date of Procedure: 05/31/20 Preoperative Diagnosis: #1: Left superficial femoral artery occlusion. #2: Diabetic vascular disease with ischemic/dry gangrenous changes left great toe. Postoperative Diagnosis: Same. Procedure(s) Performed: Left femoral to popliteal bypass graft utilizing CryoVein. Anesthesia: MERLEA Surgeon: Stephen Dennison Estimated Blood Loss (ml): 50 Pathology: none sent Condition: stable Disposition: floor Indications for Procedure: Patient is a 54-year-old male with history of diabetes and peripheral vascular disease who had presented originally with ischemic rest pain of the foot. He did undergo surgical bypass at that time as attempted endovascular repair proved unsuccessful. Subsequently he did develop thrombosis of this bypass graft for which he underwent thrombolyzes and at that time stenosis at the distal and the bypass graft was treated with a percutaneously placed stent. Eventually the bypass graft did fail and the patient developed ischemic/dry gangrenous changes of the left great toe along with ischemic rest pain. Physical examination revealed femoral pulses be intact all the popliteal and pedal pulses are absent. Arterial Doppler study demonstrated significant ischemia of the left lower extremity. Because of the patient's symptoms and occlusive disease patient is now offered surgical bypass. Vein mapping proved to demonstrate the left great saphenous vein to be of suboptimal quality and thus a CryoVein was selected for bypass purposes. Operative Findings: Patient brought the upper and placed in supine position Mr. general tracheal anesthesia delivered by the department anesthesiology. Hess catheter was placed to gravity drainage. Patient received intravenously administered prophylactic antibiotics in the perioperative phase. Patient's left lower extremity and left lower quadrant were sterilely prepped and draped in usual manner. Skin incision was made through the previous the inguinal incision carried down through subcu change tissues. Hemostasis was achieved using electrocautery. The incision was deepened. Significant scar tissue was encountered. Eventually the bypass graft was identified. The graft was thrombosed. This was utilized to help identify the common femoral artery. The common femoral artery distal to the origin of the bypass graft was dissected free of investing tissues. Pulsatile flow was identified at this level. The common femoral as well as the origin of the superficial femoral and profundus femoris arteries were dissected free of investing tissues and encircled Vesseloops. Antibiotic soaked gauze was placed within the wound. Attention was turned to the distal popliteal artery level. A skin incision along the medial aspect leg was made carried down through subcu change tissues. Hemostasis was achieved using electrocautery. Gastrocnemius and soleus muscles were mobilized and entrance was gained to the distal popliteal space. Popliteal vein was identified as was the popliteal artery. The distal portion of the popliteal artery was soft and pliable and felt adequate for outflow purposes. The artery was then encircled Vesseloops. CryoVein was tunneled between the 2 incisions assuring proper valve orientation. The patient was systemically heparinized and after adequate circulation time vessel loops surrounding the common, profundus and superficial femoral arteries were drawn closed. Arteriotomy was made in the common femoral artery extended with Pott Garcia scissors. Good inflow was identified. The vein was spatulated match arteriotomy and end-to-side anastomosis between the vein and the artery was completed with 5-0 Prolene suture. Just prior to completion of the anastomotic line the artery was flushed and backbled and no thrombus was retrieved. The anastomotic line was completed. The graft was occluded anastomotic line was tested and found to be hemostatic. Attention was turned to the incision in the calf area. The Vesseloops surrounding the distal popliteal artery were drawn closed. Arteriotomy was made and extended with Pott Garcia scissors longitudinally. Good backbleeding was identified. The vein graft was flushed and assured to be in proper orientation and excellent pulsatile flow was identified at the distal and the vein graft when occluding clamp was released. The vein was cut the appropriate length spatulated match arteriotomy and an end-to-side anastomosis with 5-0 Prolene suture was completed. Just prior to completion of the anastomotic line the vein graft was flushed and no thrombus was retrieved. Backbleeding was allowed to occur through the [place] vasculature and again no thrombus was retrieved. The anastomotic line was completed and flow restored through the bypass graft. Excellent pulsatile flow in the popliteal artery distal to the anastomotic line was identified. Both wounds were inspected for hemostasis. This was judged be adequate. Both wounds were then irrigated with antibiotic containing solution. Deep tissues were closed in multiple layers with 3-0 Vicryl at both incisions. Skin edges were reapproximated with 4-0 Monocryl at both incisions. Proper dressings were applied. Patient tolerated procedure well and a palpable dorsalis pedis pulse was identified at the completion of the case. He was taken the recovery room in satisfactory and stable condition.
[2020-05-31 16:42] LABS: Glucose,Whole Blood 186 mg/dL (75-99)
[2020-05-31] MEDS: HYDROmorphone 1 MG/ML 1 ML SYRINGE IVP ONE ×4 (16:45→17:21)
[2020-05-31] MEDS: ASPIRIN 81 MG PO SCH (18:27)
[2020-05-31] MEDS: SODIUM CHLORIDE 0.9% 1,000 ML IV SCH ×2 (18:28→22:26)
[2020-05-31 20:11] LABS: Glucose,Whole Blood 254 mg/dL (75-99)
[2020-05-31] MEDS: HYDROmorphone 1 MG/ML 1 ML SYRINGE IVP PRN (21:03)
[2020-05-31] MEDS: SIMVASTATIN 20 MG PO SCH (21:12)
[2020-05-31] MEDS: INSULIN DETEMIR (LEVEMIR) 100 UNIT/ML SYR SQ SCH (21:21)
[2020-05-31] MEDS: TEMAZEPAM 15 MG CAP PO PRN (22:31)
[2020-06-01] MEDS: HYDROmorphone 1 MG/ML 1 ML SYRINGE IVP PRN ×5 (05:24→20:41)
[2020-06-01] MEDS: VANCOMYCIN 1,500 MG in SODIUM CHLORIDE 0.9% 250 ML IVPB SCH ×2 (05:24→17:33)
[2020-06-01 06:06] LABS: Glucose,Whole Blood 355 mg/dL (75-99)
[2020-06-01] MEDS: SODIUM CHLORIDE 0.9% 1,000 ML IV SCH (06:34)
[2020-06-01 07:01] LABS: Basophils % (A) 0 %; Eosinophils % (A) 0 %; HCT 33.5 % (39.0-53.0); HGB 10.5 gm/dL (13.0-17.5); Hypochromasia Slight; Lymphocytes # (A) 1.6 k/uL (1.0-4.8); Lymphocytes % (A) 16 %; MCH 27.8 pg (25.0-35.0); MCHC 31.2 g/dL (31.0-37.0); MCV 88.9 fL (80.0-100.0); Mean Platelet Volume 7.8; Monocytes # (A) 0.7 k/uL (0-1.0); Monocytes % (A) 7 %; Neutrophils # (A) 7.6 k/uL (1.3-7.7); Neutrophils % (A) 75 %; RBC 3.77 m/uL (4.30-5.90); RDW 13.9 % (11.5-15.5); WBC 10.1 k/uL (3.8-10.6)
[2020-06-01 07:16] LABS: African American GFR (CKD) >90 (>60 ml/min/1.73 sqM); Anion Gap 8 mmol/L; Blood Urea Nitrogen 17 mg/dL (9-20); Calcium 8.4 mg/dL (8.4-10.2); Carbon Dioxide 25 mmol/L (22-30); Chloride 100 mmol/L (98-107); Glucose 328 mg/dL (74-99); Non-African American GFR(CKD) 78 (>60 ml/min/1.73 sqM); Potassium 4.7 mmol/L (3.5-5.1); Sodium 133 mmol/L (137-145)
[2020-06-01 07:20] LABS: Platelet Count 205 k/uL (150-450)
[2020-06-01] MEDS: INSULIN ASPART (NovoLOG) 100 UNIT/ML VIAL SQ SCH ×7 (07:34→21:54)
[2020-06-01] MEDS: amLODIPine 10 MG TAB PO SCH (08:18)
[2020-06-01] MEDS: HYDROcodone/APAP 10-325MG 1 EACH TAB PO PRN ×2 (08:18→22:08)
[2020-06-01] MEDS: atenoloL 25 MG TAB PO SCH ×2 (08:18→20:39)
[2020-06-01] MEDS: lisinopriL 20 MG TAB PO SCH ×2 (08:18→20:41)
[2020-06-01] MEDS: DULoxetine HCL 20 MG CAPSULE.DR PO SCH (08:18)
[2020-06-01] MEDS: ASPIRIN 81 MG PO SCH (08:18)
[2020-06-01] MEDS: FAMOTIDINE 20 MG TAB PO SCH (08:18)
[2020-06-01] MEDS: hydrALAZINE HCL 50 MG TAB PO SCH ×3 (08:18→21:54)
[2020-06-01] MEDS: GLIMEPIRIDE 2 MG TAB PO SCH (08:19)
[2020-06-01] MEDS: GABAPENTIN 300 MG CAP PO SCH ×3 (08:19→21:54)
--- NOTE | 2020-06-01 10:40 | P.PN ---
Subjective Progress Note Date: 06/01/20 Principal diagnosis: dry gangrene left great toe, peripheral arterial disease Patient was seen and examined at the bedside. Hess catheter still intact. He is status postop day #1 for left lower extremity femoral topopliteal bypass with CryoVein. He states his pain is well controlled, however still has pain in the left great toe. He tolerated breakfast this morning. Physical therapy has been ordered. He denies any shortness of breath or chest pain. Objective - Vital Signs Vital signs: Vital Signs Temp 98.1 F 05/31/20 20:00 Pulse 65 06/01/20 04:00 Resp 16 06/01/20 04:00 BP 125/60 06/01/20 04:00 Pulse Ox 100 06/01/20 04:00 Intake & Output 05/31/20 06/01/20 06/01/20 18:59 06:59 18:59 Intake Total 1821 Output Total 405 2400 Balance 1416 -2400 Weight 74.843 kg 79 kg Intake: IV 1701 Oral 120 Output: Urine 365 2400 Estimated Blood Loss 40 Other: Voiding Method Toilet Toilet Urinal Urinal - Exam General appearance: The patient is alert, oriented, in no acute distress. HET: Head is normocephalic and atraumatic. Neck: Supple without lymphadenopathy. Trachea midline. Heart: S1 S2. Regular rate and rhythm. Lungs: Lungs are clear bilaterally Abdomen: Soft, nontender, nondistended with bowel sounds. No peritoneal signs. No palpable organomegaly or masses. Extremities: +1 edema to the left lower extremity. Left inguinal and lower extremity dressings clean dry and intact. DP and PT Doppler with positive doppler signal. The left great toe has dry gangrene with wound ischemia. There is no drainage or malodor noted. Neurological: No focal deficits. Strength and sensation are grossly intact. - Labs CBC & Chem 7: 06/01/20 06:20 06/01/20 06:20 Labs: Abnormal Lab Results - Last 24 Hours (Table) 05/31/20 05/31/20 05/31/20 Range/Units 10:21 14:03 16:36 RBC 4.26 L (4.30-5.90) m/uL Hgb 11.8 L D (13.0-17.5) gm/dL Hct 36.9 L (39.0-53.0) % Plt Count 93 L (150-450) k/uL Sodium (137-145) mmol/L Glucose (74-99) mg/dL POC Glucose (mg/dL) 118 H 186 H (75-99) mg/dL 05/31/20 06/01/20 06/01/20 Range/Units 20:08 06:04 06:20 RBC 3.77 L (4.30-5.90) m/uL Hgb 10.5 L (13.0-17.5) gm/dL Hct 33.5 L (39.0-53.0) % Plt Count (150-450) k/uL Sodium (137-145) mmol/L Glucose (74-99) mg/dL POC Glucose (mg/dL) 254 H 355 H (75-99) mg/dL 06/01/20 Range/Units 06:20 RBC (4.30-5.90) m/uL Hgb (13.0-17.5) gm/dL Hct (39.0-53.0) % Plt Count (150-450) k/uL Sodium 133 L (137-145) mmol/L Glucose 328 H (74-99) mg/dL POC Glucose (mg/dL) (75-99) mg/dL Microbiology - Last 24 Hours (Table) 05/28/20 01:25 Blood Culture - Preliminary Blood No Growth after 96 hours Assessment and Plan Assessment: #1 postop day #1 for left femoral-politeal bypass with CryoVein #2 dry gangrene of the left great toe #3 peripheral arterial disease #4 medical noncompliance #5 tobacco abuse Plan: He is status postop day #1 for left femoral-tibial bypass with cryo-vein. We will discontinue his Eliquis, start Plavix , continue ASA and Lipitor Discontinue Hess catheter Physical therapy ordered patient to get up and ambulate Vascular surgery is okay with discontinuation of IV antibiotics, however will be deferred to infectious disease. Continue to recommend and encourage tobacco cessation The above dictated assessment and findings were discussed with Dr. Dennison. The impression and plan of care have been directed as dictated.
[2020-06-01 11:55] LABS: Glucose,Whole Blood 312 mg/dL (75-99)
[2020-06-01] MEDS: ATORVASTATIN 40 MG TAB PO SCH (12:13)
--- NOTE | 2020-06-01 12:13 | P.PN ---
Subjective This is Isela Toney PA-C dictating a progress note on this patient The patient was interviewed and examined by me as well as by Dr. Euceda Case discussed with Dr. Euceda and he agrees with the plan of care HPI/interval history This is a pleasant 54-year-old male past medical history significant for myocardial infarction 2006, peripheral vascular disease, hypertension, dyslipidemia, chronic nicotine dependence, frequent lower extremity revascularizations and diabetes mellitus who underwent a left femoral to below the knee bypass with Dr. Hess. Patient seen and examined resting in bed. Denies any chest pain, shortness of breath, dizziness or palpitations. His only complaint is being tired. EXAMINATION Patient is afebrile, pulse in the 70s, respirations 16, blood pressure 176/77, oxygen saturation 100% on room air Patient seen and examined resting in bed, in no acute distress Lungs are clear to auscultation bilaterally, no wheezing rhonchi or crackles Heart is slightly irregular, soft systolic murmur Left leg dressing in place No lower extremity edema No JVD REVIEW OF LABS, ECG WBC 10.1, hemoglobin 10.5, platelets 205, potassium 4.7, sodium 133, BUN 17, creatinine 1.07 Echocardiogram showed EF 55% IMPRESSION / ASSESSMENT: Peripheral arterial disease status post recent left femoral to below the knee bypass using Hypertension, not well controlled Dyslipidemia Diabetes mellitus Chronic nicotine dependence Noncompliance PLAN: Increase lisinopril to 20 mg twice a day Switched to atorvastatin 40 mg daily as Objective - Vital Signs Vital signs: Vital Signs Temp 98.0 F 06/01/20 08:00 Pulse 70 06/01/20 08:00 Resp 16 06/01/20 08:00 BP 176/77 06/01/20 08:00 Pulse Ox 100 06/01/20 08:00 Intake & Output 05/31/20 06/01/20 06/01/20 18:59 06:59 18:59 Intake Total 1821 120 Output Total 405 2400 Balance 1416 -2400 120 Weight 74.843 kg 79 kg Intake: IV 1701 Oral 120 120 Output: Urine 365 2400 Estimated Blood Loss 40 Other: Voiding Method Toilet Toilet Indwelling Catheter Urinal Urinal - Labs CBC & Chem 7: 06/01/20 06:20 06/01/20 06:20 Labs: Abnormal Lab Results - Last 24 Hours (Table) 05/31/20 05/31/20 05/31/20 Range/Units 14:03 16:36 20:08 RBC (4.30-5.90) m/uL Hgb (13.0-17.5) gm/dL Hct (39.0-53.0) % Sodium (137-145) mmol/L Glucose (74-99) mg/dL POC Glucose (mg/dL) 118 H 186 H 254 H (75-99) mg/dL 06/01/20 06/01/20 06/01/20 Range/Units 06:04 06:20 06:20 RBC 3.77 L (4.30-5.90) m/uL Hgb 10.5 L (13.0-17.5) gm/dL Hct 33.5 L (39.0-53.0) % Sodium 133 L (137-145) mmol/L Glucose 328 H (74-99) mg/dL POC Glucose (mg/dL) 355 H (75-99) mg/dL 06/01/20 Range/Units 11:54 RBC (4.30-5.90) m/uL Hgb (13.0-17.5) gm/dL Hct (39.0-53.0) % Sodium (137-145) mmol/L Glucose (74-99) mg/dL POC Glucose (mg/dL) 312 H (75-99) mg/dL Microbiology - Last 24 Hours (Table) 05/28/20 01:25 Blood Culture - Preliminary Blood No Growth after 96 hours
--- NOTE | 2020-06-01 14:28 | P.PN ---
Subjective Progress Note Date: 06/01/20 Principal diagnosis: This is a 54-year-old male who was recently admitted for a dry gangrene of the left big toe and patient will undergo bypass procedure for that as per surgery e valuated the patient. Patient was also valid by infectious disease and patient is on antibiotics. Because of his previous history of MRSA in the toe patient is also being treated for acute renal failure mostly prerenal azotemia from intravascular depletion, I'll hold off on BETITO inhibitor patient will be started on hydralazine instead for blood pressure for now. Cardiology will be consulted for medical clearance as per vascular surgery request. Constitutional: Denied any fatigue denied any fever. Cardio vascular: denied any chest pain, palpitations Gastrointestinal denied any nausea vomiting Pulmonary: Denied any shortness of breath cough Neurologic denied any new focal deficits All inpatient medications were reviewed and appropriate changes in these medications as dictated in the interval history and assessment and plan. 05/30/2020 Patient is seen and evaluated and follow-up with no acute overnight issues. Patient was having some difficulty with sleeping and requesting a sleep aid. One has been ordered. Patient continues to have some left foot discomfort although states is manageable at this time. Patient is maintained on IV hydration and current sodium is 134 with a potassium of 4.8, BUN is 12, creatinine is 0.97. Blood sugars being closely monitored as they're slightly elevated and will continue sliding scale and long-acting at this time. Patient is scheduled to undergo left femoral to below the knee bypass in the morning with vascular surgery. Patient is maintained on IV vancomycin and will continue at this time. Infectious disease is following. Cardiology consulted for medical clearance and currently pending at this time. Review of systems: Constitutional: No reports of fatigue, fever, or chills Cardiovascular: No reports of chest pain or palpitations Respiratory: No reports of shortness of breath or cough GI: No reports of nausea, vomiting, or diarrhea : No reports of dysuria or retention Neurovascular: No reports of weakness or numbness All medications have been reviewed 05/31/2020 Patient is seen in follow-up with no acute overnight issues. Patient currently nothing by mouth and awaiting to have left lower extremity bypass with vascular surgery today. Hemoglobin is stable at 11.8, white blood count is 7.3, blood sugars are being closely monitored and long-acting dose was decreased and will monitor after procedure and resume normal dose once patient is eating. Currently denies any chest pain, shortness of breath, or palpitations. Patient is afebrile. No reports of nausea or vomiting and patient has been nothing by mouth since midnight for the procedure. Will repeat a.m. labs and discuss with vascular surgery about resuming anticoagulation status post procedure. 06/01/2020 Patient is seen and evaluated in follow-up currently on the selective floor status post left lower extremity fem-pop bypass with vascular surgery. Patient tolerated the procedure well but continues to have left great toe discomfort and discoloration. Patient was on Eliquis although is being transitioned to Plavix along with aspirin. Patient is maintained on IV vancomycin and infectious disease following blood cultures remain negative and there are no wound cultures available. Patient's blood sugars are being closely monitored and are elevating now that diet has been resumed and will increase long-acting back to 40 units at night along with pre-meal insulins and sliding scale. White blood count is normal at 10.1, hemoglobin is stable at 10.5, sodium is 133, potassium is 4.7, creatinine is 1.07. Repeat a.m. labs and monitor closely. Patient was seen and evaluated by physical therapy and was up and walking with a walker. Plan is for patient to discharge home with home care. Objective - Vital Signs Vital signs: Vital Signs Temp 98.0 F 06/01/20 08:00 Pulse 70 06/01/20 08:00 Resp 16 06/01/20 08:00 BP 176/77 06/01/20 08:00 Pulse Ox 100 06/01/20 08:00 Intake & Output 05/31/20 06/01/20 06/01/20 18:59 06:59 18:59 Intake Total 1821 120 Output Total 405 2400 Balance 1416 -2400 120 Weight 74.843 kg 79 kg Intake: IV 1701 Oral 120 120 Output: Urine 365 2400 Estimated Blood Loss 40 Other: Voiding Method Toilet Toilet Indwelling Catheter Urinal Urinal - Exam GENERAL: The patient is alert and oriented x3, not in any acute distress. Well developed, well nourished. HEENT: Pupils are round and equally reacting to light. EOMI. No scleral icterus. No conjunctival pallor. Normocephalic, atraumatic. No pharyngeal erythema. No thyromegaly. CARDIOVASCULAR: S1 and S2 present. No murmurs, rubs, or gallops. PULMONARY: Diminished breath sounds bilaterally with a few scattered rhonchi noted. ABDOMEN: Soft, nontender, nondistended, normoactive bowel sounds. No palpable organomegaly. MUSCULOSKELETAL: No joint swelling or deformity. EXTREMITIES: No cyanosis, clubbing, or pedal edema. Surgical dressings are dry and intact of the left lower extremity. Left great toe gangrene noted NEUROLOGICAL: Gross neurological examination did not reveal any focal deficits. SKIN: No rashes. - Labs CBC & Chem 7: 06/01/20 06:20 06/01/20 06:20 Labs: Abnormal Lab Results - Last 24 Hours (Table) 05/31/20 05/31/20 05/31/20 Range/Units 14:03 16:36 20:08 RBC (4.30-5.90) m/uL Hgb (13.0-17.5) gm/dL Hct (39.0-53.0) % Sodium (137-145) mmol/L Glucose (74-99) mg/dL POC Glucose (mg/dL) 118 H 186 H 254 H (75-99) mg/dL 06/01/20 06/01/20 06/01/20 Range/Units 06:04 06:20 06:20 RBC 3.77 L (4.30-5.90) m/uL Hgb 10.5 L (13.0-17.5) gm/dL Hct 33.5 L (39.0-53.0) % Sodium 133 L (137-145) mmol/L Glucose 328 H (74-99) mg/dL POC Glucose (mg/dL) 355 H (75-99) mg/dL 06/01/20 Range/Units 11:54 RBC (4.30-5.90) m/uL Hgb (13.0-17.5) gm/dL Hct (39.0-53.0) % Sodium (137-145) mmol/L Glucose (74-99) mg/dL POC Glucose (mg/dL) 312 H (75-99) mg/dL Microbiology - Last 24 Hours (Table) 05/28/20 01:25 Blood Culture - Preliminary Blood No Growth after 96 hours Assessment and Plan Assessment: -Dry gangrene of the left big toe with severe pain: Had history of MRSA to infection in the past continue vancomycin. Vascular surgery following patient underwent left lower extremity peripheral vascular bypass procedure yesterday. -Acute renal failure. Prerenal azotemia due to intravascular volume depletion, continue with the IV fluids, improving. Will repeat a.m. labs -Type 2 diabetes mellitus blood Sugars are low uncontrolled, and also hyperglycemia. We'll continue with long-acting and sliding scale and monitor closely. Resuming long-acting to 40 units at night and will continue with pre- meal and sliding scale as blood sugars are elevating his patient has been resumed on diet -Hypertension uncontrolled elevated blood pressure: Resuming home medications -Severe diabetic Peripheral neuropathy -Depression -Gastroesophageal reflux disease -Severe peripheral vascular disease, patient will initiate Plavix along with aspirin per vascular surgery recommendations Plan: Continue current medications, management, and symptomatic treatment. Patient is currently maintained on IV antibiotics in the form of vancomycin and will continue. Infectious disease is following. Patient underwent bypass of the left lower extremity with vascular surgery and starting Plavix and aspirin and will hold Eliquis for now. Will continue to monitor vital signs and labs closely. Resuming home blood pressure medications and increasing long-acting insulin to 40 units at night and will continue sliding scale along with pre-meal insulin. Will repeat a.m. labs. Further recommendations to follow. Possible discharge in 24-48 hours
[2020-06-01 16:48] LABS: Glucose,Whole Blood 161 mg/dL (75-99)
[2020-06-01] MEDS: CLOPIDOGREL 75 MG TAB PO SCH (17:33)
--- NOTE | 2020-06-01 18:18 | PN ---
PROGRESS NOTE DATE OF SERVICE: 06/01/2020 REASON FOR FOLLOWUP: Left big toe necrotic wound and question of cellulitis. INTERVAL HISTORY: The patient is currently afebrile, has been breathing comfortably. Still complaining of pain to the left big toe tip. No chest pain or cough. No nausea or vomiting. No abdominal pain or diarrhea. PHYSICAL EXAMINATION: Blood pressure 162/77 with a pulse of 70, temperature 98. He is 99% on room air. General description is a middle-aged male lying in bed in no distress. RESPIRATORY SYSTEM: Unlabored breathing. Clear to auscultation anteriorly. HEART: S1, S2. Regular rate and rhythm. ABDOMEN: Soft. No tenderness. Left foot is currently dressed. No obvious drainage on the dressing. LABS: Hemoglobin is 10.5, white count 10.1, BUN of 17, creatinine 1.07. Blood culture has been negative. DIAGNOSTIC IMPRESSION AND PLAN: Patient with a left big toe tip necrotic wound, likely from an underlying peripheral arterial disease, status post bypass surgery. The patient is currently covered with vancomycin, had previous history of MRSA infection. To continue while monitoring clinical course closely. Continue with supportive care. MMODL / IJN: [id number] /
[2020-06-01 20:02] LABS: Glucose,Whole Blood 217 mg/dL (75-99)
[2020-06-01] MEDS: INSULIN DETEMIR (LEVEMIR) 100 UNIT/ML SYR SQ SCH (21:54)
[2020-06-01] MEDS: TEMAZEPAM 15 MG CAP PO PRN (22:09)
[2020-06-02] MEDS: HYDROmorphone 1 MG/ML 1 ML SYRINGE IVP PRN ×4 (00:19→12:20)
[2020-06-02] MEDS: SODIUM CHLORIDE 0.9% 1,000 ML IV SCH ×2 (00:20→15:20)
[2020-06-02] MEDS: VANCOMYCIN 1,500 MG in SODIUM CHLORIDE 0.9% 250 ML IVPB SCH ×2 (04:15→16:36)
[2020-06-02 06:14] LABS: Glucose,Whole Blood 159 mg/dL (75-99)
[2020-06-02 07:04] LABS: African American GFR (CKD) >90 (>60 ml/min/1.73 sqM); Anion Gap 4 mmol/L; Blood Urea Nitrogen 15 mg/dL (9-20); Calcium 8.5 mg/dL (8.4-10.2); Carbon Dioxide 26 mmol/L (22-30); Chloride 106 mmol/L (98-107); Glucose 145 mg/dL (74-99); Non-African American GFR(CKD) >90 (>60 ml/min/1.73 sqM); Potassium 4.6 mmol/L (3.5-5.1); Sodium 136 mmol/L (137-145)
[2020-06-02 07:09] LABS: Basophils # (A) 0.1 k/uL (0-0.2); Basophils % (A) 1 %; Eosinophils # (A) 0.3 k/uL (0-0.7); Eosinophils % (A) 3 %; HCT 32.8 % (39.0-53.0); HGB 10.7 gm/dL (13.0-17.5); Lymphocytes # (A) 2.7 k/uL (1.0-4.8); Lymphocytes % (A) 27 %; MCH 27.8 pg (25.0-35.0); MCHC 32.5 g/dL (31.0-37.0); MCV 85.4 fL (80.0-100.0); Mean Platelet Volume 8.3; Monocytes # (A) 0.9 k/uL (0-1.0); Monocytes % (A) 9 %; Neutrophils # (A) 5.7 k/uL (1.3-7.7); Neutrophils % (A) 58 %; Platelet Count 199 k/uL (150-450); RBC 3.84 m/uL (4.30-5.90); RDW 14.4 % (11.5-15.5); WBC 9.8 k/uL (3.8-10.6)
--- NOTE | 2020-06-02 08:41 | P.PN ---
Subjective Progress Note Date: 06/02/20 Principal diagnosis: Left toe ischemia, s/p fem-below knee bypass Patient seen and examined at bedside. Complaining of pain at incision sites and left great toe. States pain is so bad that he can't put pressure on his foot and wants the toe cut off. He denies any fevers, chills, nausea, vomiting, chest pain or shortness of breath. Objective - Vital Signs Vital signs: Vital Signs Temp 97.3 F L 06/01/20 20:58 Pulse 65 06/02/20 04:00 Resp 18 06/02/20 04:00 BP 140/67 06/02/20 04:00 Pulse Ox 100 06/02/20 04:00 Intake & Output 06/01/20 06/02/20 06/02/20 18:59 06:59 18:59 Intake Total 1140 Output Total 1850 1600 Balance -710 -1600 Weight 79.8 kg Intake: Oral 1140 Output: Urine 1850 1600 Other: Voiding Method Indwelling Catheter Urinal # Voids 2 - Exam Left : Multiphasic PT signal. Foot is warm. Good capillary refill. Mild edema 1+. Incision sites are clean, dry and intact. Exquisite tenderness at the great to on the left. - Constitutional General appearance: Present: average body habitus, mild distress - EENT Eyes: Present: PERRLA - Respiratory Respiratory: bilateral: CTA - Cardiovascular Rhythm: regular - Neurologic Neurologic: Present: CNII-XII intact. Absent: focal deficits - Psychiatric Psychiatric: Present: A&O x's 3, appropriate affect, intact judgment & insight - Labs CBC & Chem 7: 06/02/20 06:22 06/02/20 06:22 Labs: Abnormal Lab Results - Last 24 Hours (Table) 06/01/20 06/01/20 06/01/20 Range/Units 11:54 16:47 20:00 RBC (4.30-5.90) m/uL Hgb (13.0-17.5) gm/dL Hct (39.0-53.0) % Sodium (137-145) mmol/L Glucose (74-99) mg/dL POC Glucose (mg/dL) 312 H 161 H 217 H (75-99) mg/dL 09/12/20 09/12/20 09/12/20 Range/Units 06:13 06:22 06:22 RBC 3.84 L (4.30-5.90) m/uL Hgb 10.7 L (13.0-17.5) gm/dL Hct 32.8 L (39.0-53.0) % Sodium 136 L (137-145) mmol/L Glucose 145 H (74-99) mg/dL POC Glucose (mg/dL) 159 H (75-99) mg/dL Microbiology - Last 24 Hours (Table) 05/28/20 01:25 Blood Culture - Preliminary Blood No Growth after 120 hours Assessment and Plan Assessment: POD 2 Left femoral-popliteal artery bypass with cryovein Critical limb ischemia Dry gangrene left great toe Tobacco abuse Plan: Long discussion with patient. He wants his toe amputated prior to discharge if possible. He states he can't deal with this any longer. Continue current medication plavix, statin. Will discuss with Dr. Dennison to see if he wants to amputate toe early next week.
[2020-06-02] MEDS: INSULIN ASPART (NovoLOG) 100 UNIT/ML VIAL SQ SCH ×7 (09:01→20:34)
[2020-06-02] MEDS: GABAPENTIN 300 MG CAP PO SCH ×3 (09:02→21:10)
[2020-06-02] MEDS: atenoloL 25 MG TAB PO SCH ×2 (09:02→21:09)
[2020-06-02] MEDS: FAMOTIDINE 20 MG TAB PO SCH (09:02)
[2020-06-02] MEDS: HYDROcodone/APAP 7.5-325MG 1 EACH TAB PO PRN ×2 (09:02→17:01)
[2020-06-02] MEDS: CLOPIDOGREL 75 MG TAB PO SCH (09:02)
[2020-06-02] MEDS: ATORVASTATIN 40 MG TAB PO SCH (09:02)
[2020-06-02] MEDS: DULoxetine HCL 20 MG CAPSULE.DR PO SCH (09:02)
[2020-06-02] MEDS: ASPIRIN 81 MG PO SCH (09:02)
[2020-06-02] MEDS: GLIMEPIRIDE 2 MG TAB PO SCH (09:02)
[2020-06-02] MEDS: lisinopriL 20 MG TAB PO SCH ×2 (09:02→21:09)
[2020-06-02] MEDS: amLODIPine 10 MG TAB PO SCH (09:02)
[2020-06-02] MEDS: hydrALAZINE HCL 50 MG TAB PO SCH ×3 (09:02→21:10)
--- NOTE | 2020-06-02 09:46 | P.PN ---
Subjective This is a 54-year-old male who was recently admitted for a dry gangrene of the left big toe and patient will undergo bypass procedure for that as per surgery evaluated the patient. Patient was also valid by infectious disease and patient is on antibiotics. Because of his previous history of MRSA in the toe patient is also being treated for acute renal failure mostly prerenal azotemia from intravascular depletion, I'll hold off on BETITO inhibitor patient will be started on hydralazine instead for blood pressure for now. Cardiology will be consulted for medical clearance as per vascular surgery request. 05/30/2020 Patient is seen and evaluated and follow-up with no acute overnight issues. Patient was having some difficulty with sleeping and requesting a sleep aid. One has been ordered. Patient continues to have some left foot discomfort although states is manageable at this time. Patient is maintained on IV hydration and current sodium is 134 with a potassium of 4.8, BUN is 12, creatinine is 0.97. Blood sugars being closely monitored as they're slightly elevated and will continue sliding scale and long-acting at this time. Patient is scheduled to undergo left femoral to below the knee bypass in the morning with vascular surgery. Patient is maintained on IV vancomycin and will continue at this time. Infectious disease is following. Cardiology consulted for medical clearance and currently pending at this time. 05/31/2020 Patient is seen in follow-up with no acute overnight issues. Patient currently nothing by mouth and awaiting to have left lower extremity bypass with vascular surgery today. Hemoglobin is stable at 11.8, white blood count is 7.3, blood sugars are being closely monitored and long-acting dose was decreased and will monitor after procedure and resume normal dose once patient is eating. Cu rrently denies any chest pain, shortness of breath, or palpitations. Patient is afebrile. No reports of nausea or vomiting and patient has been nothing by mouth since midnight for the procedure. Will repeat a.m. labs and discuss with vascular surgery about resuming anticoagulation status post procedure. 06/01/2020 Patient is seen and evaluated in follow-up currently [facility] post left lower extremity fem-pop bypass with vascular surgery. Patient tolerated the procedure well but continues to have left great toe discomfort and discoloration. Patient was on Eliquis although is being transitioned to Plavix along with aspirin. Patient is maintained on IV vancomycin and infectious disease following blood cultures remain negative and there are no wound cultures available. Patient's blood sugars are being closely monitored and are elevating now that diet has been resumed and will increase long-acting back to 40 units at night along with pre-meal insulins and sliding scale. White blood count is normal at 10.1, hemoglobin is stable at 10.5, sodium is 133, potassium is 4.7, creatinine is 1.07. Repeat a.m. labs and monitor closely. Patient was seen and evaluated by physical therapy and was up and walking with a walker. Plan is for patient to discharge home with home care. 06/02/2020 Patient is still complaining of a lot of pain in the left eye great toe. Patient is requesting amputation as per surgery valid the patient and further management as per them. I'll add [place] for his pain. Review of systems: Constitutional: No reports of fatigue, fever, or chills Cardiovascular: No reports of chest pain or palpitations Respiratory: No reports of shortness of breath or cough GI: No reports of nausea, vomiting, or diarrhea : No reports of dysuria or retention Neurovascular: No reports of weakness or numbness All medications have been reviewed Objective - Vital Signs Vital signs: Vital Signs Temp 97.3 F L 06/01/20 20:58 Pulse 65 06/02/20 04:00 Resp 18 06/02/20 04:00 BP 140/67 06/02/20 04:00 Pulse Ox 100 06/02/20 04:00 Intake & Output 06/01/20 06/02/20 06/02/20 18:59 06:59 18:59 Intake Total 1140 240 Output Total 1850 1600 Balance -710 -1600 240 Weight 79.8 kg Intake: Oral 1140 240 Output: Urine 1850 1600 Other: Voiding Method Indwelling Catheter Urinal # Voids 2 - Exam GENERAL: The patient is alert and oriented x3, not in any acute distress. Well developed, well nourished. HEENT: Pupils are round and equally reacting to light. EOMI. No scleral icterus. No conjunctival pallor. Normocephalic, atraumatic. No pharyngeal erythema. No thyromegaly. CARDIOVASCULAR: S1 and S2 present. No murmurs, rubs, or gallops. PULMONARY: Diminished breath sounds bilaterally with a few scattered rhonchi noted. ABDOMEN: Soft, nontender, nondistended, normoactive bowel sounds. No palpable organomegaly. MUSCULOSKELETAL: No joint swelling or deformity. EXTREMITIES: No cyanosis, clubbing, or pedal edema. Surgical dressings are dry and intact of the left lower extremity. Left great toe gangrene noted patient has a peripheral bypass surgery in the surgical site areas. Cultures NEUROLOGICAL: Gross neurological examination did not reveal any focal deficits. SKIN: No rashes. - Labs CBC & Chem 7: 06/02/20 06:22 06/02/20 06:22 Labs: Abnormal Lab Results - Last 24 Hours (Table) 06/01/20 06/01/20 06/01/20 Range/Units 11:54 16:47 20:00 RBC (4.30-5.90) m/uL Hgb (13.0-17.5) gm/dL Hct (39.0-53.0) % Sodium (137-145) mmol/L Glucose (74-99) mg/dL POC Glucose (mg/dL) 312 H 161 H 217 H (75-99) mg/dL 06/02/20 06/02/20 06/02/20 Range/Units 06:13 06:22 06:22 RBC 3.84 L (4.30-5.90) m/uL Hgb 10.7 L (13.0-17.5) gm/dL Hct 32.8 L (39.0-53.0) % Sodium 136 L (137-145) mmol/L Glucose 145 H (74-99) mg/dL POC Glucose (mg/dL) 159 H (75-99) mg/dL Microbiology - Last 24 Hours (Table) 05/28/20 01:25 Blood Culture - Preliminary Blood No Growth after 120 hours Assessment and Plan Plan: Assessment and Plan Assessment: -Dry gangrene of the left big toe with severe pain: Had history of MRSA to infection in the past continue vancomycin. Vascular surgery following patient underwent left lower extremity peripheral vascular bypass procedure . And [place] for pain control will continue with aspirin and Plavix as per vascular surgery. Eliquis on hold and patient is essentially negative. PVD -Acute renal failure. Prerenal azotemia due to intravascular volume depletion, continue with the IV fluids, improving. Improved now -Type 2 diabetes mellitus blood Sugars are low uncontrolled, and also hyperglycemia. We'll continue with long-acting and sliding scale and monitor closely. Resuming long-acting to 40 units at night and will continue with pre- meal and sliding scale as blood sugars are elevating his patient has been resumed on diet . Blood sugars are well controlled -Hypertension uncontrolled elevated blood pressure: Resuming home medications -Severe diabetic Peripheral neuropathy -Depression -Gastroesophageal reflux disease -Severe peripheral vascular disease, patient will initiate Plavix along with aspirin per vascular surgery recommendations
[2020-06-02 11:45] LABS: Glucose,Whole Blood 141 mg/dL (75-99)
--- NOTE | 2020-06-02 12:07 | P.PN ---
Subjective This is Isela Toney PA-C dictating a progress note on this patient The patient was interviewed and examined by me as well as by Dr. Euceda Case discussed with Dr. Euceda and he agrees with the plan of care HPI/interval history This is a pleasant 54-year-old male past medical history significant for myocardial infarction 2005, peripheral vascular disease, hypertension, dyslipidemia, chronic nicotine dependence, frequent lower extremity revascularizations and diabetes mellitus who underwent a left femoral to below the knee bypass with Dr. Hess. Yesterday I increased his lisinopril and his blood pressure has been better controlled today. Patient seen and examined resting in bed. Continues to complain he is tired. And is having some pain in his left groin. Denies any dizziness. No chest pain or shortness of breath. He may have his toe amputated next week EXAMINATION Patient is afebrile, pulse in the 80s, respirations 18, blood pressure in the 140s over 60s, oxygen saturation 100% on room air Patient seen and examined resting in bed, in no acute distress Heart is slightly irregular, no audible murmurs Lungs are clear to auscultation bilaterally Left leg dressing in place, left foot wrapped REVIEW OF LABS, ECG WBC 9.8, hemoglobin 10.7, platelets 199, potassium 4.6, BUN 15, creatinine 0.9 IMPRESSION / ASSESSMENT: Peripheral arterial disease status post recent left femoral to below the knee b ypass using Hypertension, improved Dyslipidemia Diabetes mellitus Chronic nicotine dependence Noncompliance Dry gangrene of the great left toe, may possibly undergo amputation PLAN: Continue the current antihypertensive regimen Continue atorvastatin 40 mg daily Objective - Vital Signs Vital signs: Vital Signs Temp 98.5 F 06/02/20 08:00 Pulse 81 06/02/20 08:00 Resp 18 06/02/20 04:00 BP 168/77 06/02/20 08:00 Pulse Ox 98 06/02/20 08:00 Intake & Output 06/01/20 06/02/20 06/02/20 18:59 06:59 18:59 Intake Total 1140 240 Output Total 1850 1600 700 Balance -029 -1600 -452 Weight 79.8 kg Intake: Oral 1140 240 Output: Urine 1850 1600 700 Other: Voiding Method Indwelling Catheter Urinal # Voids 2 - Labs CBC & Chem 7: 06/02/20 06:22 06/02/20 06:22 Labs: Abnormal Lab Results - Last 24 Hours (Table) 06/01/20 06/01/20 06/02/20 Range/Units 16:47 20:00 06:13 RBC (4.30-5.90) m/uL Hgb (13.0-17.5) gm/dL Hct (39.0-53.0) % Sodium (137-145) mmol/L Glucose (74-99) mg/dL POC Glucose (mg/dL) 161 H 217 H 159 H (75-99) mg/dL 06/02/20 06/02/20 06/02/20 Range/Units 06:22 06:22 11:44 RBC 3.84 L (4.30-5.90) m/uL Hgb 10.7 L (13.0-17.5) gm/dL Hct 32.8 L (39.0-53.0) % Sodium 136 L (137-145) mmol/L Glucose 145 H (74-99) mg/dL POC Glucose (mg/dL) 141 H (75-99) mg/dL Microbiology - Last 24 Hours (Table) 05/28/20 01:25 Blood Culture - Preliminary Blood No Growth after 120 hours
[2020-06-02] MEDS ORDERED: VANCOMYCIN TROUGH DUE 1 EACH MISC MISCELLANE ONE (16:00)
[2020-06-02 16:44] LABS: Glucose,Whole Blood 134 mg/dL (75-99)
--- NOTE | 2020-06-02 17:55 | PN ---
PROGRESS NOTE DATE OF SERVICE: 06/02/2020 REASON FOR FOLLOWUP: Left big toe gangrene with question of cellulitis. INTERVAL HISTORY: Patient is currently afebrile. Patient is breathing comfortably. Denies having any chest pain. No shortness of breath or cough. Still have pain to the left big toe, but no worsening. No nausea, vomiting or diarrhea. PHYSICAL EXAMINATION: Blood pressure 120/71 with a pulse of 63, temperature 98.1. He is 100% on room air. General description is a middle-aged male lying in bed in no distress. Respiratory system: Unlabored breathing, clear to auscultation anteriorly. Heart S1, S2. Regular rate and rhythm. Abdomen soft, no tenderness. LABS: Hemoglobin is 10.3, white count 9.8. BUN of 15, creatinine 0.90. Vancomycin trough slightly 27.3. Blood culture has been negative. DIAGNOSTIC IMPRESSION AND PLAN: Patient with left big toe gangrene with question of cellulitis. Previous culture positive for MRSA and the patient is covered with vancomycin, dose to be cut back to keep the trough around 15 and we will monitor clinical course closely. MMODL / IJN: [id number] /
[2020-06-02 20:30] LABS: Glucose,Whole Blood 95 mg/dL (75-99)
[2020-06-02] MEDS: INSULIN DETEMIR (LEVEMIR) 100 UNIT/ML SYR SQ SCH (21:09)
[2020-06-02] MEDS: TEMAZEPAM 15 MG CAP PO PRN (22:22)
[2020-06-03] MEDS: HYDROmorphone 1 MG/ML 1 ML SYRINGE IVP PRN ×3 (00:42→22:54)
[2020-06-03] MEDS: SODIUM CHLORIDE 0.9% 1,000 ML IV SCH ×2 (03:30→17:08)
[2020-06-03] MEDS: VANCOMYCIN 1,500 MG in SODIUM CHLORIDE 0.9% 250 ML IVPB SCH (05:44)
[2020-06-03 06:57] LABS: Glucose,Whole Blood 68 mg/dL (75-99)
[2020-06-03] MEDS: INSULIN ASPART (NovoLOG) 100 UNIT/ML VIAL SQ SCH ×7 (07:06→20:37)
[2020-06-03 07:23] LABS: Glucose,Whole Blood 69 mg/dL (75-99)
[2020-06-03 07:28] LABS: Glucose,Whole Blood 96 mg/dL (75-99)
[2020-06-03] MEDS: GLIMEPIRIDE 2 MG TAB PO SCH ×2 (07:38→07:40)
[2020-06-03] MEDS: atenoloL 25 MG TAB PO SCH ×2 (07:40→20:34)
[2020-06-03] MEDS: HYDROcodone/APAP 7.5-325MG 1 EACH TAB PO PRN ×2 (07:40→17:07)
[2020-06-03] MEDS: ATORVASTATIN 40 MG TAB PO SCH (07:40)
[2020-06-03] MEDS: ASPIRIN 81 MG PO SCH (07:40)
[2020-06-03] MEDS: amLODIPine 10 MG TAB PO SCH (07:40)
[2020-06-03] MEDS: FAMOTIDINE 20 MG TAB PO SCH (07:40)
[2020-06-03] MEDS: GABAPENTIN 300 MG CAP PO SCH ×3 (07:40→20:35)
[2020-06-03] MEDS: DULoxetine HCL 20 MG CAPSULE.DR PO SCH (07:40)
[2020-06-03] MEDS: hydrALAZINE HCL 50 MG TAB PO SCH ×3 (07:40→20:34)
[2020-06-03] MEDS: lisinopriL 20 MG TAB PO SCH ×2 (07:41→20:34)
[2020-06-03] MEDS: CLOPIDOGREL 75 MG TAB PO SCH (07:41)
--- NOTE | 2020-06-03 09:39 | P.PN ---
Subjective This is a 54-year-old male who was recently admitted for a dry gangrene of the left big toe and patient will undergo bypass procedure for that as per surgery evaluated the patient. Patient was also valid by infectious disease and patient is on antibiotics. Because of his previous history of MRSA in the toe patient is also being treated for acute renal failure mostly prerenal azotemia from intravascular depletion, I'll hold off on BETITO inhibitor patient will be started on hydralazine instead for blood pressure for now. Cardiology will be consulted for medical clearance as per vascular surgery request. 05/30/2020 Patient is seen and evaluated and follow-up with no acute overnight issues. Patient was having some difficulty with sleeping and requesting a sleep aid. One has been ordered. Patient continues to have some left foot discomfort although states is manageable at this time. Patient is maintained on IV hydration and current sodium is 134 with a potassium of 4.8, BUN is 12, creatinine is 0.97. Blood sugars being closely monitored as they're slightly elevated and will continue sliding scale and long-acting at this time. Patient is scheduled to undergo left femoral to below the knee bypass in the morning with vascular surgery. Patient is maintained on IV vancomycin and will continue at this time. Infectious disease is following. Cardiology consulted for medical clearance and currently pending at this time. 05/31/2020 Patient is seen in follow-up with no acute overnight issues. Patient currently nothing by mouth and awaiting to have left lower extremity bypass with vascular surgery today. Hemoglobin is stable at 11.8, white blood count is 7.3, blood sugars are being closely monitored and long-acting dose was decreased and will monitor after procedure and resume normal dose once patient is eating. Cu rrently denies any chest pain, shortness of breath, or palpitations. Patient is afebrile. No reports of nausea or vomiting and patient has been nothing by mouth since midnight for the procedure. Will repeat a.m. labs and discuss with vascular surgery about resuming anticoagulation status post procedure. 06/01/2020 Patient is seen and evaluated in follow-up currently on the [facility] floor [facility] post left lower extremity fem-pop bypass with vascular surgery. Patient tolerated the procedure well but continues to have left great toe discomfort and discoloration. Patient was on Eliquis although is being transitioned to Plavix along with aspirin. Patient is maintained on IV vancomycin and infectious disease following blood cultures remain negative and there are no wound cultures available. Patient's blood sugars are being closely monitored and are elevating now that diet has been resumed and will increase long-acting back to 40 units at night along with pre-meal insulins and sliding scale. White blood count is normal at 10.1, hemoglobin is stable at 10.5, sodium is 133, potassium is 4.7, creatinine is 1.07. Repeat a.m. labs and monitor closely. Patient was seen and evaluated by physical therapy and was up and walking with a walker. Plan is for patient to discharge home with home care. 06/02/2020 Patient is still complaining of a lot of pain in the left eye great toe. Patient is requesting amputation as per surgery valid the patient and further management as per them. I'll add [place] for his pain. 06/03/2020 Patient's pain is well-controlled and patient will undergo amputation of the toe on Thursday Review of systems: Constitutional: No reports of fatigue, fever, or chills Cardiovascular: No reports of chest pain or palpitations Respiratory: No reports of shortness of breath or cough GI: No reports of nausea, vomiting, or diarrhea : No reports of dysuria or retention Neurovascular: No reports of weakness or numbness All medications have been reviewed Objective - Vital Signs Vital signs: Vital Signs Temp 97.6 F 06/03/20 08:00 Pulse 77 06/03/20 08:00 Resp 18 06/03/20 08:00 BP 142/74 06/03/20 08:00 Pulse Ox 98 06/03/20 08:00 Intake & Output 06/02/20 06/03/20 06/03/20 18:59 06:59 18:59 Intake Total 780 600 Output Total 1400 2200 Balance -620 -1600 Weight 80 kg Intake: Intake, IV Titration 600 Amount Sodium Chloride 0.9% 1, 600 000 ml @ 75 mls/hr IV . [id number] [facility] Rx#:[id number] Oral 780 Output: Urine 1400 2200 Other: Voiding Method Urinal Urinal # Voids 3 - Exam GENERAL: The patient is alert and oriented x3, not in any acute distress. Well developed, well nourished. HEENT: Pupils are round and equally reacting to light. EOMI. No scleral icterus. No conjunctival pallor. Normocephalic, atraumatic. No pharyngeal erythema. No thyromegaly. CARDIOVASCULAR: S1 and S2 present. No murmurs, rubs, or gallops. PULMONARY: Diminished breath sounds bilaterally with a few scattered rhonchi noted. ABDOMEN: Soft, nontender, nondistended, normoactive bowel sounds. No palpable organomegaly. MUSCULOSKELETAL: No joint swelling or deformity. EXTREMITIES: No cyanosis, clubbing, or pedal edema. Surgical dressings are dry and intact of the left lower extremity. Left great toe gangrene noted patient has a peripheral bypass surgery in the surgical site areas. Cultures NEUROLOGICAL: Gross neurological examination did not reveal any focal deficits. SKIN: No rashes. - Labs CBC & Chem 7: 06/02/20 06:22 06/02/20 06:22 Labs: Abnormal Lab Results - Last 24 Hours (Table) 06/02/20 06/02/20 06/03/20 Range/Units 11:44 16:43 06:56 POC Glucose (mg/dL) 141 H 134 H 68 L (75-99) mg/dL 06/03/20 Range/Units 07:12 POC Glucose (mg/dL) 69 L (75-99) mg/dL Microbiology - Last 24 Hours (Table) 05/28/20 01:25 Blood Culture - Final Blood No Growth after 144 hours Assessment and Plan Plan: Assessment and Plan Assessment: -Dry gangrene of the left big toe with severe pain: Had history of MRSA to infection in the past continue vancomycin. Vascular surgery following patient underwent left lower extremity peripheral vascular bypass procedure . And [place] for pain control will continue with aspirin and Plavix as per vascular surgery. Eliquis on hold and patient is essentially negative. PVD -Acute renal failure. Prerenal azotemia due to intravascular volume depletion, continue with the IV fluids, improving. Improved now -Type 2 diabetes mellitus blood Sugars are low uncontrolled, and also hyperglycemia. We'll continue with long-acting and sliding scale and monitor closely. Resuming long-acting to 40 units at night and will continue with pre- meal and sliding scale as blood sugars are elevating his patient has been resumed on diet . Blood sugars are well controlled -Hypertension uncontrolled elevated blood pressure: Resuming home medications -Severe diabetic Peripheral neuropathy -Depression -Gastroesophageal reflux disease -Severe peripheral vascular disease, patient will initiate Plavix along with as pirin per vascular surgery recommendations
[2020-06-03 11:33] LABS: Glucose,Whole Blood 252 mg/dL (75-99)
[2020-06-03 16:52] LABS: Glucose,Whole Blood 285 mg/dL (75-99)
[2020-06-03 20:27] LABS: Glucose,Whole Blood 135 mg/dL (75-99)
[2020-06-03] MEDS: INSULIN DETEMIR (LEVEMIR) 100 UNIT/ML SYR SQ SCH (20:34)
[2020-06-03] MEDS: TEMAZEPAM 15 MG CAP PO PRN (22:02)
[2020-06-04 01:48] LABS: Glucose,Whole Blood 278 mg/dL (75-99)
[2020-06-04] MEDS: HYDROmorphone 1 MG/ML 1 ML SYRINGE IVP PRN ×5 (02:43→20:39)
[2020-06-04] MEDS: VANCOMYCIN 1,500 MG in SODIUM CHLORIDE 0.9% 250 ML IVPB SCH (05:11)
[2020-06-04] MEDS: SODIUM CHLORIDE 0.9% 1,000 ML IV SCH ×2 (05:15→17:53)
[2020-06-04 06:54] LABS: Glucose,Whole Blood 138 mg/dL (75-99)
[2020-06-04] MEDS: INSULIN ASPART (NovoLOG) 100 UNIT/ML VIAL SQ SCH ×7 (06:56→20:50)
[2020-06-04] MEDS: GABAPENTIN 300 MG CAP PO SCH ×3 (07:10→20:39)
[2020-06-04] MEDS: atenoloL 25 MG TAB PO SCH ×2 (07:10→20:39)
[2020-06-04] MEDS: FAMOTIDINE 20 MG TAB PO SCH (07:11)
[2020-06-04] MEDS: GLIMEPIRIDE 2 MG TAB PO SCH (07:11)
[2020-06-04] MEDS: lisinopriL 20 MG TAB PO SCH ×2 (07:11→20:38)
[2020-06-04] MEDS: ATORVASTATIN 40 MG TAB PO SCH (07:11)
[2020-06-04] MEDS: ASPIRIN 81 MG PO SCH (07:11)
[2020-06-04] MEDS: hydrALAZINE HCL 50 MG TAB PO SCH ×3 (07:11→20:38)
[2020-06-04] MEDS: amLODIPine 10 MG TAB PO SCH (07:11)
[2020-06-04] MEDS: CLOPIDOGREL 75 MG TAB PO SCH (07:11)
[2020-06-04] MEDS: DULoxetine HCL 20 MG CAPSULE.DR PO SCH (07:12)
[2020-06-04 08:28] LABS: African American GFR (CKD) >90 (>60 ml/min/1.73 sqM); Non-African American GFR(CKD) >90 (>60 ml/min/1.73 sqM)
[2020-06-04 11:36] LABS: Glucose,Whole Blood 173 mg/dL (75-99)
--- NOTE | 2020-06-04 11:47 | PN ---
PROGRESS NOTE DATE OF SERVICE: 06/03/2020 REASON FOR FOLLOWUP: Left big toe gangrene with concern for cellulitis. INTERVAL HISTORY: The patient is currently afebrile, has been breathing comfortably. The patient denies having any chest pain or shortness of breath. No nausea, no vomiting. No worsening pain to the left big toe. PHYSICAL EXAMINATION: Blood pressure 142/74 with a pulse of 77. Temperature 97.6. He is 98% on room air. General description: The patient is a middle-aged male lying in bed in no distress. Respiratory system: Unlabored breathing, clear to auscultation anteriorly. Heart S1, S2. Regular rate and rhythm. Abdomen soft, no tenderness. Left big toe currently dressed up, no obvious drainage on the dressing. LABS: No new labs have been obtained today. DIAGNOSTIC IMPRESSION AND PLAN: Patient with left big toe gangrene with concern of cellulitis in this patient who did have underlying PAD status post bypass surgery with a possible amputation on Thursday. Continue with empiric vancomycin, monitor kidney function closely. Continue supportive care. MMODL / IJN: [id number] /
--- NOTE | 2020-06-04 13:07 | P.PN ---
Subjective This is a 54-year-old male who was recently admitted for a dry gangrene of the left big toe and patient will undergo bypass procedure for that as per surgery evaluated the patient. Patient was also valid by infectious disease and patient is on antibiotics. Because of his previous history of MRSA in the toe patient is also being treated for acute renal failure mostly prerenal azotemia from intravascular depletion, I'll hold off on BETITO inhibitor patient will be started on hydralazine instead for blood pressure for now. Cardiology will be consulted for medical clearance as per vascular surgery request. 05/30/2020 Patient is seen and evaluated and follow-up with no acute overnight issues. Patient was having some difficulty with sleeping and requesting a sleep aid. One has been ordered. Patient continues to have some left foot discomfort although states is manageable at this time. Patient is maintained on IV hydration and current sodium is 134 with a potassium of 4.8, BUN is 12, creatinine is 0.97. Blood sugars being closely monitored as they're slightly elevated and will continue sliding scale and long-acting at this time. Patient is scheduled to undergo left femoral to below the knee bypass in the morning with vascular surgery. Patient is maintained on IV vancomycin and will continue at this time. Infectious disease is following. Cardiology consulted for medical clearance and currently pending at this time. 05/31/2020 Patient is seen in follow-up with no acute overnight issues. Patient currently nothing by mouth and awaiting to have left lower extremity bypass with vascular surgery today. Hemoglobin is stable at 11.8, white blood count is 7.3, blood sugars are being closely monitored and long-acting dose was decreased and will monitor after procedure and resume normal dose once patient is eating. Cu rrently denies any chest pain, shortness of breath, or palpitations. Patient is afebrile. No reports of nausea or vomiting and patient has been nothing by mouth since midnight for the procedure. Will repeat a.m. labs and discuss with vascular surgery about resuming anticoagulation status post procedure. 06/01/2020 Patient is seen and evaluated in follow-up currently on the [facility] floor [facility] post left lower extremity fem-pop bypass with vascular surgery. Patient tolerated the procedure well but continues to have left great toe discomfort and discoloration. Patient was on Eliquis although is being transitioned to Plavix along with aspirin. Patient is maintained on IV vancomycin and infectious disease following blood cultures remain negative and there are no wound cultures available. Patient's blood sugars are being closely monitored and are elevating now that diet has been resumed and will increase long-acting back to 40 units at night along with pre-meal insulins and sliding scale. White blood count is normal at 10.1, hemoglobin is stable at 10.5, sodium is 133, potassium is 4.7, creatinine is 1.07. Repeat a.m. labs and monitor closely. Patient was seen and evaluated by physical therapy and was up and walking with a walker. Plan is for patient to discharge home with home care. 06/02/2020 Patient is still complaining of a lot of pain in the left eye great toe. Patient is requesting amputation as per surgery valid the patient and further management as per them. I'll add [place] for his pain. 06/03/2020 Patient's pain is well-controlled and patient will undergo amputation of the toe on Thursday06/04/2020 Patient will undergo by amputation tomorrow Review of systems: Constitutional: No reports of fatigue, fever, or chills Cardiovascular: No reports of chest pain or palpitations Respiratory: No reports of shortness of breath or cough GI: No reports of nausea, vomiting, or diarrhea : No reports of dysuria or retention Neurovascular: No reports of weakness or numbness All medications have been reviewed Objective - Vital Signs Vital signs: Vital Signs Temp 98.1 F 06/04/20 07:55 Pulse 53 L 06/04/20 07:55 Resp 18 06/04/20 07:55 BP 150/88 06/04/20 07:55 Pulse Ox 99 06/04/20 07:55 Intake & Output 06/03/20 06/04/20 06/04/20 18:59 06:59 18:59 Intake Total 300 Output Total 1700 Balance -1700 300 Weight 77.5 kg Intake: Intake, IV Titration 300 Amount Sodium Chloride 0.9% 1, 300 000 ml @ 75 mls/hr IV . [id number] [facility] Rx#:[id number] Output: Urine 1700 Other: Voiding Method Urinal # Voids 3 # Bowel Movements 1 - Exam GENERAL: The patient is alert and oriented x3, not in any acute distress. Well developed, well nourished. HEENT: Pupils are round and equally reacting to light. EOMI. No scleral icterus. No conjunctival pallor. Normocephalic, atraumatic. No pharyngeal erythema. No thyromegaly. CARDIOVASCULAR: S1 and S2 present. No murmurs, rubs, or gallops. PULMONARY: Diminished breath sounds bilaterally with a few scattered rhonchi noted. ABDOMEN: Soft, nontender, nondistended, normoactive bowel sounds. No palpable organomegaly. MUSCULOSKELETAL: No joint swelling or deformity. EXTREMITIES: No cyanosis, clubbing, or pedal edema. Surgical dressings are dry and intact of the left lower extremity. Left great toe gangrene noted patient has a peripheral bypass surgery in the surgical site areas. Cultures NEUROLOGICAL: Gross neurological examination did not reveal any focal deficits. SKIN: No rashes. - Labs CBC & Chem 7: 06/02/20 06:22 06/04/20 07:12 Labs: Abnormal Lab Results - Last 24 Hours (Table) 06/03/20 06/03/20 06/04/20 Range/Units 16:50 20:25 01:47 POC Glucose (mg/dL) 285 H 135 H 278 H (75-99) mg/dL 06/04/20 06/04/20 Range/Units 06:52 11:34 POC Glucose (mg/dL) 138 H 173 H (75-99) mg/dL Assessment and Plan Plan: Assessment and Plan Assessment: -Dry gangrene of the left big toe with severe pain: Had history of MRSA to infection in the past continue vancomycin. Vascular surgery following patient underwent left lower extremity peripheral vascular bypass procedure . And [place] for pain control will continue with aspirin and Plavix as per vascular surgery. Eliquis on hold and patient is essentially negative. PVD -Acute renal failure. Prerenal azotemia due to intravascular volume depletion, continue with the IV fluids, improving. Improved now -Type 2 diabetes mellitus blood Sugars are low uncontrolled, and also hyperglycemia. We'll continue with long-acting and sliding scale and monitor closely. Resuming long-acting to 40 units at night and will continue with pre- meal and sliding scale as blood sugars are elevating his patient has been resumed on diet . Blood sugars are well controlled -Hypertension uncontrolled elevated blood pressure: Resuming home medications -Severe diabetic Peripheral neuropathy -Depression -Gastroesophageal reflux disease -Severe peripheral vascular disease, patient will initiate Plavix along with aspirin per vascular surgery recommendations
--- NOTE | 2020-06-04 13:08 | P.PN ---
Subjective Progress Note Date: 06/05/20 Principal diagnosis: dry gangrene left great toe, peripheral arterial disease Patient was seen and examined at the bedside. Patient states pain is tolerable, still having significant pain to the left great toe. Still states he has some discomfort at the left groin incision site. He denies any fevers or chills. He denies any shortness of breath or chest pain. Objective - Vital Signs Vital signs: Vital Signs Temp 98.1 F 06/04/20 07:55 Pulse 53 L 06/04/20 07:55 Resp 18 06/04/20 07:55 BP 150/88 06/04/20 07:55 Pulse Ox 99 06/04/20 07:55 Intake & Output 06/03/20 06/04/20 06/04/20 18:59 06:59 18:59 Intake Total 300 Output Total 1700 Balance -1700 300 Weight 77.5 kg Intake: Intake, IV Titration 300 Amount Sodium Chloride 0.9% 1, 300 000 ml @ 75 mls/hr IV . [id number] [facility] Rx#:[id number] Output: Urine 1700 Other: Voiding Method Urinal # Voids 3 # Bowel Movements 1 - Exam General appearance: The patient is alert, oriented, in no acute distress. HET: Head is normocephalic and atraumatic. Neck: Supple without lymphadenopathy. Trachea midline. Heart: S1 S2. Regular rate and rhythm. Lungs: Lungs are clear bilaterally Abdomen: Soft, nontender, nondistended with bowel sounds. No peritoneal signs. No palpable organomegaly or masses. Extremities: +1 edema to the left lower extremity. Left inguinal and lower extremity dressings clean dry and intact. DP and PT Doppler with positive doppler signal. The left great toe has dry gangrene with wound ischemia. Sever TTP of left great toe. There is no drainage or malodor noted. Left inguinal incision with pea-sized hematoma. No active bleeding. Neurological: No focal deficits. Strength and sensation are grossly intact. - Labs CBC & Chem 7: 06/02/20 06:22 06/04/20 07:12 Labs: Abnormal Lab Results - Last 24 Hours (Table) 06/03/20 06/03/20 06/04/20 Range/Units 16:50 20:25 01:47 POC Glucose (mg/dL) 285 H 135 H 278 H (75-99) mg/dL 06/04/20 06/04/20 Range/Units 06:52 11:34 POC Glucose (mg/dL) 138 H 173 H (75-99) mg/dL Assessment and Plan Assessment: #1 postop day #4 for left femoral-politeal bypass with CryoVein #2 dry gangrene of the left great toe #3 peripheral arterial disease #4 medical noncompliance #5 tobacco abuse Plan: He is status postop day #4 for left femoral-tibial bypass with cryo-vein. We will discontinue his Eliquis, start Plavix , continue ASA and Lipitor Physical therapy ordered patient to get up and ambulate Vascular surgery is okay with discontinuation of IV antibiotics, however will be deferred to infectious disease. Continue to recommend and encourage tobacco cessation Nothing by mouth after midnight Patient is scheduled for left great toe amputation tomorrow The above dictated assessment and findings were discussed with Dr. Hess. The impression and plan of care have been directed as dictated.
[2020-06-04 16:53] LABS: Glucose,Whole Blood 289 mg/dL (75-99)
--- NOTE | 2020-06-04 17:29 | PN ---
PROGRESS NOTE DATE OF SERVICE: 06/04/2020 REASON FOR FOLLOWUP: Left big toe necrotic wound and question of cellulitis. INTERVAL HISTORY: Patient is currently afebrile, has been breathing comfortably. Still complaining of pain to the left big toe but no worsening. No chest pain. No shortness of breath or cough. No abdominal pain or diarrhea. PHYSICAL EXAMINATION: His blood pressure is 136/69, pulse of 53, temperature 98.2. He is 100% on room air. General description is a middle-aged male lying in bed in no distress. Respiratory system: Unlabored breathing and is clear to auscultation anteriorly. Heart S1, S2. Regular rate and rhythm. ABDOMEN: Soft, no tenderness. LABS: Creatinine 0.94. DIAGNOSTIC IMPRESSION AND PLAN: Patient left big toe gangrene, likely from underlying PAD in this patient status post bypass and scheduled for amputation of the left is empirically covered with vancomycin to continue. Kidney function is normal. Continue supportive care. MMODL / IJN: [id number] /
[2020-06-04] MEDS: INSULIN DETEMIR (LEVEMIR) 100 UNIT/ML SYR SQ SCH (20:39)
[2020-06-04 20:45] LABS: Glucose,Whole Blood 270 mg/dL (75-99)
[2020-06-04] MEDS: TEMAZEPAM 15 MG CAP PO PRN (22:16)
[2020-06-05 02:05] LABS: Glucose,Whole Blood 339 mg/dL (75-99)
[2020-06-05 02:22] LABS: Hemoglobin A1C 11.4 % (4.0-6.0)
[2020-06-05] MEDS ORDERED: VANCOMYCIN TROUGH DUE 1 EACH MISC MISCELLANE ONE (05:00)
[2020-06-05] MEDS: VANCOMYCIN 1,500 MG in SODIUM CHLORIDE 0.9% 250 ML IVPB SCH ×2 (05:19→21:16)
[2020-06-05 05:55] LABS: HCT 31.8 % (39.0-53.0); HGB 10.1 gm/dL (13.0-17.5); Hypochromasia Slight; MCH 27.8 pg (25.0-35.0); MCHC 31.8 g/dL (31.0-37.0); MCV 87.3 fL (80.0-100.0); Mean Platelet Volume 7.7; Platelet Count 248 k/uL (150-450); RBC 3.64 m/uL (4.30-5.90); RDW 13.7 % (11.5-15.5); WBC 7.3 k/uL (3.8-10.6)
[2020-06-05] MEDS: HYDROmorphone 1 MG/ML 1 ML SYRINGE IVP PRN ×5 (06:08→23:00)
[2020-06-05 06:44] LABS: Glucose,Whole Blood 235 mg/dL (75-99)
[2020-06-05] MEDS: INSULIN ASPART (NovoLOG) 100 UNIT/ML VIAL SQ SCH ×7 (07:23→20:46)
[2020-06-05] MEDS: SODIUM CHLORIDE 0.9% 1,000 ML IV SCH ×2 (08:48→20:46)
[2020-06-05] MEDS: DULoxetine HCL 20 MG CAPSULE.DR PO SCH (08:48)
[2020-06-05] MEDS: CLOPIDOGREL 75 MG TAB PO SCH (08:48)
[2020-06-05] MEDS: ASPIRIN 81 MG PO SCH (08:48)
[2020-06-05] MEDS: FAMOTIDINE 20 MG TAB PO SCH (08:48)
[2020-06-05] MEDS: GLIMEPIRIDE 2 MG TAB PO SCH (08:48)
[2020-06-05] MEDS: GABAPENTIN 300 MG CAP PO SCH ×3 (08:48→21:16)
[2020-06-05] MEDS ORDERED: IV FLUID CONTINUATION 450 ML IV ONE (08:52)
[2020-06-05 09:15] LABS: Glucose,Whole Blood 68 mg/dL (75-99)
[2020-06-05] MEDS ORDERED: MIDAZOLAM 2 MG/2 ML VIAL ONE (09:21)
[2020-06-05] MEDS ORDERED: PROPOFOL 10 MG/ML 20 ML VIAL IV ONE (09:21)
[2020-06-05] MEDS ORDERED: fentaNYL (PF) 50 MCG/ML 2 ML AMP ONE (09:21)
[2020-06-05] MEDS ORDERED: DEXTROSE 50% SYRINGE 50 ML IVP ONE (09:21)
[2020-06-05] MEDS ORDERED: KETAMINE 10 MG/ML 20 ML VIAL ONE (09:21)
[2020-06-05] MEDS ORDERED: LIDOCAINE 1% INJ 10MG/ML (20 ML MDV) SQ ONE ×2 (09:36)
[2020-06-05 10:04] LABS: African American GFR (CKD) 77.9 (60.0-200.0); Anion Gap 5.3 mmol/L (4.00-12.00); BUN/Creat Ratio 11.67 Ratio (12.00-20.00); Calcium 8.9 mg/dL (8.7-10.3); Carbon Dioxide 29.7 mmol/L (21.6-31.8); Non-African American GFR(CKD) 67.2 (60.0-200.0); Potassium 4.4 mmol/L (3.5-5.5)
[2020-06-05 10:22] LABS: Glucose,Whole Blood 47 mg/dL (75-99)
--- NOTE | 2020-06-05 10:30 | P.OP ---
Date of Procedure: 06/05/20 Preoperative Diagnosis: left great toe gangrene with chronic pain, critical limb ischemia fredis 5 Postoperative Diagnosis: same Procedure(s) Performed: left great toe transmetarsal amputation Anesthesia: regional, local Surgeon: Blas Alanis Estimated Blood Loss (ml): 15 Pathology: other (left great toe) Condition: stable Disposition: PACU Indications for Procedure: 54 year old male with history of left great toe gangrene with recent femoral- popliteal artery bypass presents to the OR for left great toe amputation. Patient states the pain is excruciating and can't walk or stand on foot and wants his toe removed. He states the pain extends to the metatarsal joint on examination. Operative Findings: ischemic changes extending to the joint of the metatarsal. Description of Procedure: After written and informed consent was obtained and all risks, benefits and complications were discussed the patient was brought to the operative suite and laid in a supine position. The area of the left foot was prepped and draped in usual sterile fashion after appropriate anesthetic was performed. Timeout was performed and patient was on antibiotics prior to the incision. Local anesthetic was administered to the great toe prior to incision. A racquet incision was created at the base of the great toe with a 15 blade scalpel and dissection was carried around and down to the bone with electrocautery. There was some extension of ischemic changes to the joint. The bone was then excised with bone scissors. The debris was removed with a ronger. Toe was then handed off for pathology. Hemostasis was assured and area was irrigated copiously. The incision was then closed in a two layer fashion with 2-0 nylon for the skin in a vertical mattress fashion. The area was cleansed and dressings were placed. The patient tolerated well and was sent to PACU for recovery.
[2020-06-05] MEDS ORDERED: HYDROmorphone 1 MG/ML 1 ML SYRINGE IVP ONE ×2 (10:35→10:40)
[2020-06-05 10:55] LABS: Glucose,Whole Blood 83 mg/dL (75-99)
[2020-06-05] MEDS: amLODIPine 10 MG TAB PO SCH (11:26)
[2020-06-05] MEDS: hydrALAZINE HCL 50 MG TAB PO SCH ×2 (11:26→16:45)
[2020-06-05] MEDS: atenoloL 25 MG TAB PO SCH ×2 (11:26→20:46)
[2020-06-05] MEDS: ATORVASTATIN 40 MG TAB PO SCH (11:26)
[2020-06-05] MEDS: lisinopriL 20 MG TAB PO SCH ×2 (11:26→20:46)
[2020-06-05 11:45] LABS: Glucose,Whole Blood 85 mg/dL (75-99)
--- NOTE | 2020-06-05 13:58 | P.PN ---
Subjective This is a 54-year-old male who was recently admitted for a dry gangrene of the left big toe and patient will undergo bypass procedure for that as per surgery evaluated the patient. Patient was also valid by infectious disease and patient is on antibiotics. Because of his previous history of MRSA in the toe patient is also being treated for acute renal failure mostly prerenal azotemia from intravascular depletion, I'll hold off on BETITO inhibitor patient will be started on hydralazine instead for blood pressure for now. Cardiology will be consulted for medical clearance as per vascular surgery request. 05/30/2020 Patient is seen and evaluated and follow-up with no acute overnight issues. Patient was having some difficulty with sleeping and requesting a sleep aid. One has been ordered. Patient continues to have some left foot discomfort although states is manageable at this time. Patient is maintained on IV hydration and current sodium is 134 with a potassium of 4.8, BUN is 12, creatinine is 0.97. Blood sugars being closely monitored as they're slightly elevated and will continue sliding scale and long-acting at this time. Patient is scheduled to undergo left femoral to below the knee bypass in the morning with vascular surgery. Patient is maintained on IV vancomycin and will continue at this time. Infectious disease is following. Cardiology consulted for medical clearance and currently pending at this time. 05/31/2020 Patient is seen in follow-up with no acute overnight issues. Patient currently nothing by mouth and awaiting to have left lower extremity bypass with vascular surgery today. Hemoglobin is stable at 11.8, white blood count is 7.3, blood sugars are being closely monitored and long-acting dose was decreased and will monitor after procedure and resume normal dose once patient is eating. Cu rrently denies any chest pain, shortness of breath, or palpitations. Patient is afebrile. No reports of nausea or vomiting and patient has been nothing by mouth since midnight for the procedure. Will repeat a.m. labs and discuss with vascular surgery about resuming anticoagulation status post procedure. 06/01/2020 Patient is seen and evaluated in follow-up currently on the [facility] floor [facility] post left lower extremity fem-pop bypass with vascular surgery. Patient tolerated the procedure well but continues to have left great toe discomfort and discoloration. Patient was on Eliquis although is being transitioned to Plavix along with aspirin. Patient is maintained on IV vancomycin and infectious disease following blood cultures remain negative and there are no wound cultures available. Patient's blood sugars are being closely monitored and are elevating now that diet has been resumed and will increase long-acting back to 40 units at night along with pre-meal insulins and sliding scale. White blood count is normal at 10.1, hemoglobin is stable at 10.5, sodium is 133, potassium is 4.7, creatinine is 1.07. Repeat a.m. labs and monitor closely. Patient was seen and evaluated by physical therapy and was up and walking with a walker. Plan is for patient to discharge home with home care. 06/02/2020 Patient is still complaining of a lot of pain in the left eye great toe. Patient is requesting amputation as per surgery valid the patient and further management as per them. I'll add [place] for his pain. 06/03/2020 Patient's pain is well-controlled and patient will undergo amputation of the toe on Thursday06/04/2020 Patient will undergo by amputation tomorrow 06/05/2020 Patient had left great toe transmetatarsal amputation. Post surgically patient is doing well Review of systems: Constitutional: No reports of fatigue, fever, or chills Cardiovascular: No reports of chest pain or palpitations Respiratory: No reports of shortness of breath or cough GI: No reports of nausea, vomiting, or diarrhea : No reports of dysuria or retention Neurovascular: No reports of weakness or numbness All medications have been reviewed Objective - Vital Signs Vital signs: Vital Signs Temp 97.5 F L 06/05/20 10:13 Pulse 61 06/05/20 10:53 Resp 16 06/05/20 10:53 BP 160/70 06/05/20 10:53 Pulse Ox 100 06/05/20 10:53 Intake & Output 06/04/20 06/05/20 06/05/20 18:59 06:59 18:59 Intake Total 300 Output Total 450 1075 Balance -450 -775 Weight 77.5 kg 77.8 kg Intake: IV 300 Output: Urine 450 1050 Estimated Blood Loss 25 Other: # Voids 3 3 - Exam GENERAL: The patient is alert and oriented x3, not in any acute distress. Well developed, well nourished. HEENT: Pupils are round and equally reacting to light. EOMI. No scleral icterus. No conjunctival pallor. Normocephalic, atraumatic. No pharyngeal erythema. No thyromegaly. CARDIOVASCULAR: S1 and S2 present. No murmurs, rubs, or gallops. PULMONARY: Diminished breath sounds bilaterally with a few scattered rhonchi noted. ABDOMEN: Soft, nontender, nondistended, normoactive bowel sounds. No palpable organomegaly. MUSCULOSKELETAL: No joint swelling or deformity. EXTREMITIES: No cyanosis, clubbing, or pedal edema. Patient left foot was post surgically NEUROLOGICAL: Gross neurological examination did not reveal any focal deficits. SKIN: No rashes. - Labs CBC & Chem 7: 06/05/20 05:15 06/05/20 05:15 Labs: Abnormal Lab Results - Last 24 Hours (Table) 06/04/20 06/04/20 06/04/20 Range/Units 07:12 16:50 20:43 RBC (4.30-5.90) m/uL Hgb (13.0-17.5) gm/dL Hct (39.0-53.0) % BUN/Creatinine Ratio (12.00-20.00) Ratio Glucose (70-110) mg/dL POC Glucose (mg/dL) 289 H 270 H (75-99) mg/dL Hemoglobin A1c 11.4 H (4.0-6.0) % 06/05/20 06/05/20 06/05/20 Range/Units 02:01 05:15 05:15 RBC 3.64 L (4.30-5.90) m/uL Hgb 10.1 L (13.0-17.5) gm/dL Hct 31.8 L (39.0-53.0) % BUN/Creatinine Ratio 11.67 L (12.00-20.00) Ratio Glucose 255 H (70-110) mg/dL POC Glucose (mg/dL) 339 H (75-99) mg/dL Hemoglobin A1c (4.0-6.0) % 06/05/20 06/05/20 06/05/20 Range/Units 06:42 09:10 10:16 RBC (4.30-5.90) m/uL Hgb (13.0-17.5) gm/dL Hct (39.0-53.0) % BUN/Creatinine Ratio (12.00-20.00) Ratio Glucose (70-110) mg/dL POC Glucose (mg/dL) 235 H 68 L 47 L (75-99) mg/dL Hemoglobin A1c (4.0-6.0) % Assessment and Plan Plan: Assessment and Plan Assessment: -Dry gangrene of the left big toe with severe pain: Had history of MRSA to infection in the past continue vancomycin. Vascular surgery following patient underwent left lower extremity peripheral vascular bypass procedure and transmetatarsal amputation. . Patient is on antiplatelet therapy, pain is well- controlled -Acute renal failure. Prerenal azotemia due to intravascular volume depletion, continue with the IV fluids, improving. Improved now -Type 2 diabetes mellitus blood Sugars are low uncontrolled, and also hyperglycemia. We'll continue with long-acting and sliding scale and monitor closely. We will cut down the long-acting insulin to 25 units patient was nothing by mouth last night -Hypertension uncontrolled elevated blood pressure: Resuming home medications -Severe diabetic Peripheral neuropathy -Depression -Gastroesophageal reflux disease -Severe peripheral vascular disease, patient is on Plavix along with aspirin per vascular surgery recommendations
[2020-06-05] MEDS: HYDROcodone/APAP 7.5-325MG 1 EACH TAB PO PRN ×2 (14:28→20:47)
--- NOTE | 2020-06-05 15:40 | PN ---
PROGRESS NOTE DATE OF SERVICE: 06/05/2020 REASON FOR FOLLOWUP: Left big toe gangrene and possible cellulitis noted. The patient is currently afebrile, has been breathing comfortably. The patient is status post amputation of left big toe this morning. The patient tolerated the procedure. Denies having any chest pain or shortness of breath. No cough, no abdominal pain, no diarrhea. PHYSICAL EXAMINATION: Blood pressure 160/70 with a pulse of 61, temperature 97.5, he is 100% on room air. General description is a middle-aged male, lying in bed in no distress. RESPIRATORY SYSTEM: Unlabored breathing, clear to auscultation anteriorly. HEART: S1, S2. Regular rate and rhythm. ABDOMEN: Soft, no tenderness. Left foot has congestive obvious drainage on the dressing. LABS: No new labs have been obtained today. DIAGNOSTIC IMPRESSION AND PLAN: Patient big toe gangrene with concern for possible cellulitis. Previous culture positive for MRSA. Patient is covered with vancomycin with removal of the toe. Will not need to be on long-term antibiotic therapy. Keep the patient on vanco for a day or two. can be discontinued. Continue supportive care. MMODL / IJN: [id number] /
[2020-06-05] MEDS ORDERED: HYDROmorphone 1 MG/ML 1 ML SYRINGE IVP STA (16:38)
[2020-06-05 16:42] LABS: Glucose,Whole Blood 350 mg/dL (75-99)
[2020-06-05 20:29] LABS: Glucose,Whole Blood 154 mg/dL (75-99)
[2020-06-05] MEDS ORDERED: INSULIN DETEMIR (LEVEMIR) 100 UNIT/ML SYR SQ SCH (21:00)
[2020-06-05] MEDS: TEMAZEPAM 15 MG CAP PO PRN (22:48)
[2020-06-06 01:16] LABS: Glucose,Whole Blood 286 mg/dL (75-99)
[2020-06-06] MEDS: hydrALAZINE HCL 50 MG TAB PO SCH ×4 (01:17→22:15)
[2020-06-06] MEDS: HYDROcodone/APAP 7.5-325MG 1 EACH TAB PO PRN (01:47)
[2020-06-06] MEDS: HYDROmorphone 1 MG/ML 1 ML SYRINGE IVP PRN ×2 (03:09→07:53)
[2020-06-06 06:49] LABS: Glucose,Whole Blood 240 mg/dL (75-99)
[2020-06-06] MEDS: INSULIN ASPART (NovoLOG) 100 UNIT/ML VIAL SQ SCH ×9 (07:42→22:16)
[2020-06-06] MEDS: ASPIRIN 81 MG PO SCH (09:40)
[2020-06-06] MEDS: FAMOTIDINE 20 MG TAB PO SCH (09:40)
[2020-06-06] MEDS: amLODIPine 10 MG TAB PO SCH (09:40)
[2020-06-06] MEDS: DULoxetine HCL 20 MG CAPSULE.DR PO SCH (09:40)
[2020-06-06] MEDS: GLIMEPIRIDE 2 MG TAB PO SCH (09:40)
[2020-06-06] MEDS: GABAPENTIN 300 MG CAP PO SCH ×3 (09:41→22:13)
[2020-06-06] MEDS: lisinopriL 20 MG TAB PO SCH ×2 (09:41→22:14)
[2020-06-06] MEDS: atenoloL 25 MG TAB PO SCH ×2 (09:41→22:14)
[2020-06-06] MEDS: ATORVASTATIN 40 MG TAB PO SCH (09:41)
[2020-06-06] MEDS: CLOPIDOGREL 75 MG TAB PO SCH (09:41)
[2020-06-06 09:52] LABS: African American GFR (CKD) 86.5 (60.0-200.0); Non-African American GFR(CKD) 74.6 (60.0-200.0)
[2020-06-06] MEDS: SODIUM CHLORIDE 0.9% 1,000 ML IV SCH (09:57)
[2020-06-06 11:34] LABS: Glucose,Whole Blood 253 mg/dL (75-99)
--- NOTE | 2020-06-06 11:41 | P.PN ---
Subjective This is a 54-year-old male who was recently admitted for a dry gangrene of the left big toe and patient will undergo bypass procedure for that as per surgery evaluated the patient. Patient was also valid by infectious disease and patient is on antibiotics. Because of his previous history of MRSA in the toe patient is also being treated for acute renal failure mostly prerenal azotemia from intravascular depletion, I'll hold off on BETITO inhibitor patient will be started on hydralazine instead for blood pressure for now. Cardiology will be consulted for medical clearance as per vascular surgery request. 05/30/2020 Patient is seen and evaluated and follow-up with no acute overnight issues. Patient was having some difficulty with sleeping and requesting a sleep aid. One has been ordered. Patient continues to have some left foot discomfort although states is manageable at this time. Patient is maintained on IV hydration and current sodium is 134 with a potassium of 4.8, BUN is 12, creatinine is 0.97. Blood sugars being closely monitored as they're slightly elevated and will continue sliding scale and long-acting at this time. Patient is scheduled to undergo left femoral to below the knee bypass in the morning with vascular surgery. Patient is maintained on IV vancomycin and will continue at this time. Infectious disease is following. Cardiology consulted for medical clearance and currently pending at this time. 05/31/2020 Patient is seen in follow-up with no acute overnight issues. Patient currently nothing by mouth and awaiting to have left lower extremity bypass with vascular surgery today. Hemoglobin is stable at 11.8, white blood count is 7.3, blood sugars are being closely monitored and long-acting dose was decreased and will monitor after procedure and resume normal dose once patient is eating. Cu rrently denies any chest pain, shortness of breath, or palpitations. Patient is afebrile. No reports of nausea or vomiting and patient has been nothing by mouth since midnight for the procedure. Will repeat a.m. labs and discuss with vascular surgery about resuming anticoagulation status post procedure. 06/01/2020 Patient is seen and evaluated in follow-up [facility] post left lower extremity fem-pop bypass with vascular surgery. Patient tolerated the procedure well but continues to have left great toe discomfort and discoloration. Patient was on Eliquis although is being transitioned to Plavix along with aspirin. Patient is maintained on IV vancomycin and infectious disease following blood cultures remain negative and there are no wound cultures available. Patient's blood sugars are being closely monitored and are elevating now that diet has been resumed and will increase long-acting back to 40 units at night along with pre-meal insulins and sliding scale. White blood count is normal at 10.1, hemoglobin is stable at 10.5, sodium is 133, potassium is 4.7, creatinine is 1.07. Repeat a.m. labs and monitor closely. Patient was seen and evaluated by physical therapy and was up and walking with a walker. Plan is for patient to discharge home with home care. 06/02/2020 Patient is still complaining of a lot of pain in the left eye great toe. Patient is requesting amputation as per surgery valid the patient and further management as per them. I'll add [facility] for his pain. 06/03/2020 Patient's pain is well-controlled and patient will undergo amputation of the toe on Thursday06/04/2020 Patient will undergo by amputation tomorrow 06/05/2020 Patient had left great toe transmetatarsal amputation. Post surgically patient is doing well 06/06/2020 Patient is feeling better, blood sugars are high up titrated the long-acting insulin as well as pre-meal insulin patient probably will be discharged tomorrow Review of systems: Constitutional: No reports of fatigue, fever, or chills Cardiovascular: No reports of chest pain or palpitations Respiratory: No reports of shortness of breath or cough GI: No reports of nausea, vomiting, or diarrhea : No reports of dysuria or retention Neurovascular: No reports of weakness or numbness All medications have been reviewed Objective - Vital Signs Vital signs: Vital Signs Temp 98.1 F 06/06/20 08:24 Pulse 84 06/06/20 08:24 Resp 18 06/06/20 08:24 BP 178/89 06/06/20 08:24 Pulse Ox 99 06/06/20 01:20 Intake & Output 06/05/20 06/06/20 06/06/20 18:59 06:59 18:59 Intake Total 300 Output Total 1475 1510 Balance -1175 -1510 Weight 77.5 kg Intake: IV 300 Output: Urine 1450 1510 Estimated Blood Loss 25 Other: Voiding Method Urinal # Voids 1 2 - Exam GENERAL: The patient is alert and oriented x3, not in any acute distress. Well developed, well nourished. HEENT: Pupils are round and equally reacting to light. EOMI. No scleral icterus. No conjunctival pallor. Normocephalic, atraumatic. No pharyngeal erythema. No thyromegaly. CARDIOVASCULAR: S1 and S2 present. No murmurs, rubs, or gallops. PULMONARY: Diminished breath sounds bilaterally with a few scattered rhonchi noted. ABDOMEN: Soft, nontender, nondistended, normoactive bowel sounds. No palpable organomegaly. MUSCULOSKELETAL: No joint swelling or deformity. EXTREMITIES: No cyanosis, clubbing, or pedal edema. Patient left foot was post surgically NEUROLOGICAL: Gross neurological examination did not reveal any focal deficits. SKIN: No rashes. - Labs CBC & Chem 7: 06/05/20 05:15 06/06/20 05:55 Labs: Abnormal Lab Results - Last 24 Hours (Table) 06/05/20 06/05/20 06/06/20 Range/Units 16:40 20:28 01:12 POC Glucose (mg/dL) 350 H 154 H 286 H (75-99) mg/dL 06/06/20 06/06/20 Range/Units 06:47 11:29 POC Glucose (mg/dL) 240 H 253 H (75-99) mg/dL Assessment and Plan Plan: Assessment and Plan Assessment: -Dry gangrene of the left big toe with severe pain: Had history of MRSA to infection in the past continue vancomycin. Vascular surgery following patient underwent left lower extremity peripheral vascular bypass procedure and transmetatarsal amputation. . Patient is on antiplatelet therapy, pain is well- controlled -Acute renal failure. Prerenal azotemia due to intravascular volume depletion, continue with the IV fluids, improving. Improved now -Type 2 diabetes mellitus blood Sugars are low uncontrolled, and also hyperglycemia. His blood sugars started going up the patient will be resumed on his usual doses of insulin. Except for long-acting. -Hypertension uncontrolled elevated blood pressure: Resuming home medications -Severe diabetic Peripheral neuropathy -Depression -Gastroesophageal reflux disease -Severe peripheral vascular disease, patient is on Plavix along with aspirin per vascular surgery recommendations
--- NOTE | 2020-06-06 12:05 | PN ---
PROGRESS NOTE DATE OF SERVICE: 06/06/2020 REASON FOR FOLLOWUP: Left big toe gangrene and cellulitis. INTERVAL HISTORY: Patient is currently afebrile. The patient is feeling better. Breathing comfortably. Denies having any chest pain or cough. No nausea. No pain with left big toe. PHYSICAL EXAMINATION: Blood pressure 132/89 with a pulse of 84, temperature 98.1, he is 99% on room air. General description is a middle-aged male, lying in bed in no distress. RESPIRATORY SYSTEM: Unlabored breathing, clear to auscultation anteriorly. HEART: S1, S2. Regular rate and rhythm. ABDOMEN: Soft, no tenderness. Left leg is currently dressed. No obvious drainage on the dressing. DIAGNOSTIC IMPRESSION AND PLAN: Patient with left big toe gangrene with concern for cellulitis in this patient who did have previous culture positive for MRSA. Covered with vancomycin to continue. Patient will be discontinued on discharge, continue supportive care. MMODL / IJN: [id number] /
--- NOTE | 2020-06-06 12:44 | P.PN ---
Subjective Progress Note Date: 06/06/20 Principal diagnosis: dry gangrene left great toe, peripheral arterial disease The patient seen and examined at the bedside. The patient is postop day #1 status post left great toe amputation. He states he has intermittent sharp pain in the top of his foot. States his overall pain has improved some. Denies any fevers or chills through the night or any acute changes. Objective - Vital Signs Vital signs: Vital Signs Temp 98.1 F 06/06/20 08:24 Pulse 84 06/06/20 08:24 Resp 18 06/06/20 08:24 BP 178/89 06/06/20 08:24 Pulse Ox 99 06/06/20 01:20 Intake & Output 06/05/20 06/06/20 06/06/20 18:59 06:59 18:59 Intake Total 300 Output Total 1475 1510 Balance -1175 -1510 Weight 77.5 kg Intake: IV 300 Output: Urine 1450 1510 Estimated Blood Loss 25 Other: Voiding Method Urinal # Voids 1 2 2 - Exam General appearance: The patient is alert, oriented, in no acute distress. HET: Head is normocephalic and atraumatic. Neck: Supple without lymphadenopathy. Trachea midline. Heart: S1 S2. Regular rate and rhythm. Lungs: Lungs are clear bilaterally Abdomen: Soft, nontender, nondistended with bowel sounds. No peritoneal signs. No palpable organomegaly or masses. Extremities: Left lower extremity dressing changed. Amputation site with sutures with Serosanguineous drainage. Positive PT and DP Doppler signal. Incision along the medial aspect healing well with scant amount of drainage. Inguinal incision site clean dry and intact. Neurological: No focal deficits. Strength and sensation are grossly intact. - Labs CBC & Chem 7: 06/05/20 05:15 06/06/20 05:55 Labs: Abnormal Lab Results - Last 24 Hours (Table) 06/05/20 06/05/20 06/06/20 Range/Units 16:40 20:28 01:12 POC Glucose (mg/dL) 350 H 154 H 286 H (75-99) mg/dL 06/06/20 06/06/20 Range/Units 06:47 11:29 POC Glucose (mg/dL) 240 H 253 H (75-99) mg/dL Assessment and Plan Assessment: #1 postop day #1 left great toe amputation #2 status post left femoral-politeal bypass with CryoVein #3 dry gangrene of the left great toe #4 peripheral arterial disease #5 medical noncompliance #6 tobacco abuse Plan: He is status post left femoral-tibial bypass with cryo-vein and left great toe amputation We will discontinue his Eliquis, start Plavix , continue ASA and Lipitor Physical therapy ordered patient to get up and ambulate Vascular surgery is okay with discontinuation of IV antibiotics, however will be deferred to infectious disease. Continue to recommend and encourage tobacco cessation Consistent carbohydrate diet Discontinue IV Dilaudid will change [place] to 10 mg 1 tablet every 4 hours Will consider changing gabapentin to 800 mg 1 tablet TID if available Dressing change with Adaptic, 4 x 4 and Kerlix. The above dictated assessment and findings were discussed with Dr. Hess. The impression and plan of care have been directed as dictated.
[2020-06-06] MEDS: HYDROcodone/APAP 10-325MG 1 EACH TAB PO PRN ×2 (12:45→21:23)
[2020-06-06] MEDS: VANCOMYCIN 1,500 MG in SODIUM CHLORIDE 0.9% 250 ML IVPB SCH (13:06)
[2020-06-06 16:55] LABS: Glucose,Whole Blood 153 mg/dL (75-99)
[2020-06-06] MEDS ORDERED: INSULIN DETEMIR (LEVEMIR) 100 UNIT/ML SYR SQ SCH (21:00)
[2020-06-06 21:28] LABS: Glucose,Whole Blood 211 mg/dL (75-99)
[2020-06-06] MEDS: TEMAZEPAM 15 MG CAP PO PRN (22:32)
[2020-06-07] MEDS: SODIUM CHLORIDE 0.9% 1,000 ML IV SCH (03:42)
[2020-06-07 04:41] VITALS: PULSE 63
[2020-06-07] MEDS: VANCOMYCIN 1,500 MG in SODIUM CHLORIDE 0.9% 250 ML IVPB SCH (05:03)
[2020-06-07] MEDS: HYDROcodone/APAP 10-325MG 1 EACH TAB PO PRN ×3 (05:03→14:45)
[2020-06-07 06:58] LABS: Glucose,Whole Blood 239 mg/dL (75-99)
[2020-06-07] MEDS: INSULIN ASPART (NovoLOG) 100 UNIT/ML VIAL SQ SCH ×4 (07:23→12:30)
[2020-06-07 08:27] VITALS: BP 131/63; RESP 16; TEMP 98.6
[2020-06-07 09:16] LABS: African American GFR (CKD) 86.5 (60.0-200.0); Non-African American GFR(CKD) 74.6 (60.0-200.0)
[2020-06-07] MEDS: FAMOTIDINE 20 MG TAB PO SCH (09:49)
[2020-06-07] MEDS: hydrALAZINE HCL 50 MG TAB PO SCH (09:50)
[2020-06-07] MEDS: GABAPENTIN 300 MG CAP PO SCH (09:50)
[2020-06-07] MEDS: GLIMEPIRIDE 2 MG TAB PO SCH (09:50)
[2020-06-07] MEDS: atenoloL 25 MG TAB PO SCH (09:50)
[2020-06-07] MEDS: ASPIRIN 81 MG PO SCH (09:50)
[2020-06-07] MEDS: amLODIPine 10 MG TAB PO SCH (09:50)
[2020-06-07] MEDS: ATORVASTATIN 40 MG TAB PO SCH (09:50)
[2020-06-07] MEDS: DULoxetine HCL 20 MG CAPSULE.DR PO SCH (09:50)
[2020-06-07] MEDS: CLOPIDOGREL 75 MG TAB PO SCH (09:50)
[2020-06-07] MEDS: lisinopriL 20 MG TAB PO SCH (09:54)
[2020-06-07 11:46] LABS: Glucose,Whole Blood 177 mg/dL (75-99)
--- NOTE | 2020-06-07 12:17 | P.PN ---
Subjective Progress Note Date: 06/07/20 Principal diagnosis: dry gangrene left great toe, peripheral arterial disease The patient seen and examined at the bedside. The patient is postop day #2 status post left great toe amputation. States his overall pain has improved. Denies any fevers or chills through the night or any acute changes. He is up and ambulating with cane. Objective - Vital Signs Vital signs: Vital Signs Temp 98.6 F 06/07/20 08:26 Pulse 63 06/07/20 08:26 Resp 16 06/07/20 08:26 BP 131/63 06/07/20 08:26 Pulse Ox 99 06/07/20 08:26 Intake & Output 06/06/20 06/07/20 06/07/20 18:59 06:59 18:59 Intake Total 1000 Output Total 1200 2150 Balance -1200 -1150 Weight 79 kg Intake: Intake, IV Titration 1000 Amount Sodium Chloride 0.9% 1, 1000 000 ml @ 0 mls/hr IV .[facility] -[facility] Rx#:[id number] Output: Urine 1200 2150 Other: # Voids 2 - Labs CBC & Chem 7: 06/05/20 05:15 06/07/20 05:42 Labs: Abnormal Lab Results - Last 24 Hours (Table) 06/06/20 06/06/20 06/06/20 Range/Units 11:29 16:52 21:22 POC Glucose (mg/dL) 253 H 153 H 211 H (75-99) mg/dL 06/07/20 Range/Units 06:55 POC Glucose (mg/dL) 239 H (75-99) mg/dL Assessment and Plan Assessment: #1 postop day #2 left great toe amputation #2 status post left femoral-politeal bypass with CryoVein #3 dry gangrene of the left great toe #4 peripheral arterial disease #5 medical noncompliance #6 tobacco abuse Plan: He is status post left femoral-tibial bypass with cryo-vein and left great toe amputation We will discontinue his Eliquis, start Plavix , continue ASA and Lipitor Physical therapy ordered patient to get up and ambulate Vascular surgery is okay with discontinuation of IV antibiotics, however will be deferred to infectious disease. Continue to recommend and encourage tobacco cessation Consistent carbohydrate diet Discontinue IV Dilaudid will change [place] to 10 mg 1 tablet every 4 hours Dressing change with Adaptic, 4 x 4 and Kerlix. Patient is cleared for discharge from vascular surgical standpoint. Will increase his Gabapentin to 800mg po TID The above dictated assessment and findings were discussed with Dr. Dennison. The impression and plan of care have been directed as dictated.
[2020-06-07 12:43] VITALS: BMI 30.8
--- NOTE | 2020-06-07 13:15 | P.DS ---
Providers Date of admission: 05/28/20 00:08 Attending physician: Preston Zaidi MD Consults: 05/28/20 00:02 Consult Physician Stat Consulting Provider: Estela Hess Consult Reason/Comments: Toe gangrene, necrosis Do you want consulting provider notified?: Yes 05/28/20 00:10 Consult Physician Stat Consulting Provider: Tee Batista Consult Reason/Comments: Toe gangrene Do you want consulting provider notified?: Yes 05/30/20 09:08 Consult Physician Urgent Consulting Provider: Donato Negron Consult Reason/Comments: CARDIAC CLEARANCE FOR LEFT FEMORAL-TIBIAL BYPASS WITH VEIN Do you want consulting provider notified?: Yes Primary care physician: Demetrius [facility] Course: 54-year-old male who was recently admitted for a dry gangrene of the left big toe and patient will undergo bypass procedure for that as per surgery evaluated the patient. Patient was also valid by infectious disease and patient is on antibiotics. Because of his previous history of MRSA in the toe patient is also being treated for acute renal failure mostly prerenal azotemia from intravascular depletion, I'll hold off on BETITO inhibitor patient will be started on hydralazine instead for blood pressure for now. Cardiology will be consulted for medical clearance as per vascular surgery request. 05/30/2020 Patient is seen and evaluated and follow-up with no acute overnight issues. Patient was having some difficulty with sleeping and requesting a sleep aid. One has been ordered. Patient continues to have some left foot discomfort although states is manageable at this time. Patient is maintained on IV hydration and current sodium is 134 with a potassium of 4.8, BUN is 12, creatinine is 0.97. Blood sugars being closely monitored as they're slightly elevated and will continue sliding scale and long-acting at this time. Patient is scheduled to undergo left femoral to below the knee bypass in the morning with vascular surgery. Patient is maintained on IV vancomycin and will continue at this time. Infectious disease is following. Cardiology consulted for medical clearance and currently pending at this time. 05/31/2020 Patient is seen in follow-up with no acute overnight issues. Patient currently nothing by mouth and awaiting to have left lower extremity bypass with vascular surgery today. Hemoglobin is stable at 11.8, white blood count is 7.3, blood sugars are being closely monitored and long-acting dose was decreased and will monitor after procedure and resume normal dose once patient is eating. Currently denies any chest pain, shortness of breath, or palpitations. Patient is afebrile. No reports of nausea or vomiting and patient has been nothing by mouth since midnight for the procedure. Will repeat a.m. labs and discuss with vascular surgery about resuming anticoagulation status post procedure. 06/01/2020 Patient is seen and evaluated in follow-up currently on the selective floor status post left lower extremity fem-pop bypass with vascular surgery. Patient tolerated the procedure well but continues to have left great toe discomfort and discoloration. Patient was on Eliquis although is being transitioned to Plavix along with aspirin. Patient is maintained on IV vancomycin and infectious disease following blood cultures remain negative and there are no wound cultures available. Patient's blood sugars are being closely monitored and are elevating now that diet has been resumed and will increase long-acting back to 40 units at night along with pre-meal insulins and sliding scale. White blood count is normal at 10.1, hemoglobin is stable at 10.5, sodium is 133, potassium is 4.7, creatinine is 1.07. Repeat a.m. labs and monitor closely. Patient was seen and evaluated by physical therapy and was up and walking with a walker. Plan is for patient to discharge home with home care. 06/02/2020 Patient is still complaining of a lot of pain in the left eye great toe. Patient is requesting amputation as per surgery valid the patient and further management as per them. I'll add [place] for his pain. 06/03/2020 Patient's pain is well-controlled and patient will undergo amputation of the toe on Thursday06/04/2020 Patient will undergo by amputation tomorrow 06/05/2020 Patient had left great toe transmetatarsal amputation. Post surgically patient is doing well 06/06/2020 Patient is feeling better, blood sugars are high up titrated the long-acting insulin as well as pre-meal insulin patient probably will be discharged tomorrow 06/07/2020 Patient will be discharged today is clinically doing well patient has elevated hemoglobin A1c probably due to noncompliance with medications. I'm increasing the long-acting insulin dose as his blood sugars started going up patient is afebrile will not require any antibiotics or oral antibiotics. GENERAL: The patient is alert and oriented x3, not in any acute distress. Well developed, well nourished. HEENT: Pupils are round and equally reacting to light. EOMI. No scleral icterus. No conjunctival pallor. Normocephalic, atraumatic. No pharyngeal erythema. No thyromegaly. CARDIOVASCULAR: S1 and S2 present. No murmurs, rubs, or gallops. PULMONARY: Diminished breath sounds bilaterally with a few scattered rhonchi noted. ABDOMEN: Soft, nontender, nondistended, normoactive bowel sounds. No palpable organomegaly. MUSCULOSKELETAL: No joint swelling or deformity. EXTREMITIES: No cyanosis, clubbing, or pedal edema. Patient left foot was post surgically NEUROLOGICAL: Gross neurological examination did not reveal any focal deficits. SKIN: No rashes. Assessment and Plan Assessment: -Dry gangrene of the left big toe with severe pain: Had history of MRSA to infection in the past continue vancomycin. Vascular surgery following patient underwent left lower extremity peripheral vascular bypass procedure and transmetatarsal amputation. . Patient is on antiplatelet therapy, pain is well- controlled -Acute renal failure. Prerenal azotemia due to intravascular volume depletion, continue with the IV fluids, improving. Improved now -Type 2 diabetes mellitus blood Sugars are low uncontrolled, and also hyperglycemia. Uncontrolled elevated blood sugars up titrated with insulin today patient was discharged on prednisone -Hypertension uncontrolled elevated blood pressure: Resuming home medications -Severe diabetic Peripheral neuropathy -Depression -Gastroesophageal reflux disease -Severe peripheral vascular disease, patient is on Plavix along with aspirin per vascular surgery recommendations Patient Condition at Discharge: Stable Plan - Discharge Summary Discharge Rx Participant: No New Discharge Prescriptions: New hydrALAZINE HCL [Apresoline] 100 mg PO TID #90 tab Aspirin 81 mg PO DAILY #30 chew Gabapentin 800 mg PO TID 10 Days #30 tab Atorvastatin [Lipitor] 40 mg PO DAILY #30 tab Clopidogrel [Plavix] 75 mg PO DAILY #30 tab lisinopriL [Zestril] 20 mg PO BID #60 tab Continue amLODIPine [Norvasc] 10 mg PO DAILY atenoloL [Atenolol] 25 mg PO BID Glimepiride [Amaryl] 2 mg PO DAILY DULoxetine HCL [Cymbalta] 20 mg PO DAILY 30 Days #30 capsule. Famotidine 40 mg PO DAILY metFORMIN HCL [Glucophage] 500 mg PO BID INSULIN ASPART (NovoLOG) [NovoLOG (formulary)] 10 unit SQ AC-TID HYDROcodone/APAP 10-325MG [[place] 10-325] 0.5 tab PO BID PRN #20 tab PRN Reason: Pain Changed Insulin Glargine [Lantus] 42 unit SQ HS 30 Days #1 vial Discontinued lisinopriL [Zestril] 20 mg PO DAILY Simvastatin [Zocor] 20 mg PO HS Apixaban [Eliquis] 5 mg PO BID #60 tab Gabapentin 600 mg PO TID Gabapentin [Neurontin] 300 mg PO TID Discharge Medication List amLODIPine [Norvasc] 10 mg PO DAILY 09/11/15 [History] atenoloL [Atenolol] 25 mg PO BID 09/11/15 [History] Glimepiride [Amaryl] 2 mg PO DAILY 02/01/20 [History] DULoxetine HCL [Cymbalta] 20 mg PO DAILY 30 Days #30 capsule. 02/27/20 [Rx] Famotidine 40 mg PO DAILY 04/25/20 [History] INSULIN ASPART (NovoLOG) [NovoLOG (formulary)] 10 unit SQ AC-TID 05/11/20 [History] metFORMIN HCL [Glucophage] 500 mg PO BID 05/11/20 [History] Aspirin 81 mg PO DAILY #30 chew 06/07/20 [Rx] Atorvastatin [Lipitor] 40 mg PO DAILY #30 tab 06/07/20 [Rx] Clopidogrel [Plavix] 75 mg PO DAILY #30 tab 06/07/20 [Rx] Gabapentin 800 mg PO TID 10 Days #30 tab 06/07/20 [Rx] HYDROcodone/APAP 10-325MG [[place] 10-325] 0.5 tab PO BID PRN #20 tab 06/07/20 [ Rx] Insulin Glargine [Lantus] 42 unit SQ HS 30 Days #1 vial 06/07/20 [Rx] hydrALAZINE HCL [Apresoline] 100 mg PO TID #90 tab 06/07/20 [Rx] lisinopriL [Zestril] 20 mg PO BID #60 tab 06/07/20 [Rx] Follow up Appointment(s)/Referral(s): Betito Romo MD [Primary Care Provider] - 1-2 days [facility] [NON-STAFF] - As Needed (glucometer) [facility], [NON-STAFF] - As Needed Donato Negron MD [STAFF PHYSICIAN] - 2 Weeks Discharge Disposition: HOME WITH HOME HEALTH SERVICES
--- NOTE | 2020-06-07 15:43 | PN ---
PROGRESS NOTE DATE OF SERVICE: 06/07/2020 REASON FOR FOLLOWUP: Left big toe necrotic wound and question of cellulitis. INTERVAL COURSE: The patient is currently afebrile. Patient is feeling better. Breathing comfortably. Denies having any chest pain, no cough, no nausea, no vomiting, no abdominal pain. No pain to the left big toe amputated site. PHYSICAL EXAMINATION: Blood pressure 130/63 with a pulse of 63, temperature 98.6, 99% on room air. General description is a middle-aged male, lying in bed in no distress. Left foot is currently dressed. The patient mentioned some itching in the amputation site. The amputation site looks clean with no redness or any drainage. LABS: Creatinine is 1.1. DIAGNOSTIC IMPRESSION AND PLAN: Patient with left big toe necrotic wound and concern for cellulitis. Previous culture positive for MRSA. The patient has received adequate antibiotic therapy since admission. No need for antibiotic on discharge. Continue supportive care. MMODL / IJN: [id number] /
[2020-06-08] MEDS ORDERED: VANCOMYCIN TROUGH DUE 1 EACH MISC MISCELLANE ONE (12:00)
== END 2020-06-07 15:13 | disposition home health service (06) | DRG 240 ==
LOC: EC 20:45 → 4SSUR 05-28 00:08 → 3SCARD 05-31 17:29 → 4SSUR 06-02 10:45
PROVIDERS: ADMIT Internal Medicine; ATTEND Internal Medicine
PROC: 02HV33Z Insertion of Infusion Device into Superior Vena Cava, Percutaneous Approach (ICD-10-PCS; 2020-05-28)
PROC: 0Y6N0Z9 Detachment at Left Foot, Partial 1st Ray, Open Approach (ICD-10-PCS; principal; 2020-06-05 09:30)
PROC: 041L0KL Bypass Left Femoral Artery to Popliteal Artery with Nonautologous Tissue Substitute, Open Approach (ICD-10-PCS; 2020-06-07)
DX: E11.52 Type 2 diabetes mellitus with diabetic peripheral angiopathy with gangrene (principal); I48.20 Chronic atrial fibrillation, unspecified; N17.9 Acute kidney failure, unspecified; L03.116 Cellulitis of left lower limb; I70.362 Atherosclerosis of unspecified type of bypass graft(s) of the extremities with gangrene, left leg; E11.649 Type 2 diabetes mellitus with hypoglycemia without coma; D63.8 Anemia in other chronic diseases classified elsewhere; E11.628 Type 2 diabetes mellitus with other skin complications; E11.42 Type 2 diabetes mellitus with diabetic polyneuropathy; E11.65 Type 2 diabetes mellitus with hyperglycemia; Z79.4 Long term (current) use of insulin; I10 Essential (primary) hypertension; E78.5 Hyperlipidemia, unspecified; H40.9 Unspecified glaucoma; G89.29 Other chronic pain; F32.9 Major depressive disorder, single episode, unspecified; K21.9 Gastro-esophageal reflux disease without esophagitis; E86.9 Volume depletion, unspecified; Z91.14 Patient's other noncompliance with medication regimen; I25.2 Old myocardial infarction; Z71.3 Dietary counseling and surveillance; Z79.899 Other long term (current) drug therapy; Z79.01 Long term (current) use of anticoagulants; Z95.828 Presence of other vascular implants and grafts; Z91.19 Patient's noncompliance with other medical treatment and regimen; Z86.718 Personal history of other venous thrombosis and embolism; Z86.14 Personal history of Methicillin resistant Staphylococcus aureus infection; Z98.890 Other specified postprocedural states; Z87.01 Personal history of pneumonia (recurrent); Z87.891 Personal history of nicotine dependence; Z88.6 Allergy status to analgesic agent; Z88.8 Allergy status to other drugs, medicaments and biological substances; Z82.49 Family history of ischemic heart disease and other diseases of the circulatory system; Z82.5 Family history of asthma and other chronic lower respiratory diseases
CPT/HCPCS: 36415; 36556; 71045; 80048; 80053; 80202; 82565; 83036; 83605; 85025; 85027; 86850; 86900; 86901; 87040; 88305; 96372; 96374; 96375; 99284

== ENCOUNTER 2020-06-30 09:04 | Emergency (ER) | payer MEDICARE, OTHER ==
[2020-06-30 09:10] VITALS: BP 140/76; PULSE 59; RESP 18; TEMP 98.6
--- NOTE | 2020-06-30 09:36 | ED ---
General Adult HPI - General Chief complaint: Skin/Abscess/Foreign Body Stated complaint: ABCESS LEFT LEG Time Seen by Provider: 06/30/20 09:12 Source: patient, RN notes reviewed Mode of arrival: ambulatory Limitations: no limitations - History of Present Illness Initial comments: Patient is a pleasant 54-year-old male presenting to the emergency department with concern for left leg wound. Patient states 3 weeks ago he did have vein grafting from a cadaver with Dr. Garnett. Patient states couple of days ago he did notice a skin started open. It appeared a little bit red to him and he did notice some mild pus coming out when he pushed on it. No pain. Patient did also have his toe recently amputated. Patient states his toes doing fine. No f raimundo. No other complaints. - Related Data Home Medications Medication Instructions Recorded Confirmed amLODIPine [Norvasc] 10 mg PO DAILY 09/11/15 05/28/20 atenoloL [Atenolol] 25 mg PO BID 09/11/15 05/28/20 Glimepiride [Amaryl] 2 mg PO DAILY 02/01/20 05/28/20 Famotidine 40 mg PO DAILY 04/25/20 05/28/20 INSULIN ASPART (NovoLOG) [NovoLOG 10 unit SQ AC-TID 05/11/20 05/28/20 (formulary)] metFORMIN HCL [Glucophage] 500 mg PO BID 05/11/20 05/28/20 Previous Rx's Medication Instructions Recorded DULoxetine HCL [Cymbalta] 20 mg PO DAILY 30 Days #30 02/27/20 capsule. Aspirin 81 mg PO DAILY #30 chew 06/07/20 Atorvastatin [Lipitor] 40 mg PO DAILY #30 tab 06/07/20 Clopidogrel [Plavix] 75 mg PO DAILY #30 tab 06/07/20 Gabapentin 800 mg PO TID 10 Days #30 tab 06/07/20 HYDROcodone/APAP 10-325MG [[place] 0.5 tab PO BID PRN #20 tab 06/07/20 10-325] Insulin Glargine [Lantus] 42 unit SQ HS 30 Days #1 vial 06/07/20 hydrALAZINE HCL [Apresoline] 100 mg PO TID #90 tab 06/07/20 lisinopriL [Zestril] 20 mg PO BID #60 tab 06/07/20 Cephalexin [Keflex] 500 mg PO QID #40 cap 06/30/20 Allergies Allergy/AdvReac Type Severity Reaction Status Date / Time atorvastatin [From Lipitor] Allergy Swelling Verified 06/30/20 09:10 ibuprofen Allergy Swelling Verified 06/30/20 09:10 pregabalin [From Lyrica] Allergy Swelling Verified 06/30/20 09:10 Review of Systems ROS Statement: Those systems with pertinent positive or pertinent negative responses have been documented in the HPI. ROS Other: All systems not noted in ROS Statement are negative. Constitutional: Denies: fever Eyes: Denies: eye pain ENT: Denies: ear pain Respiratory: Denies: cough Cardiovascular: Denies: chest pain Endocrine: Denies: fatigue Gastrointestinal: Denies: abdominal pain Genitourinary: Denies: dysuria Musculoskeletal: Denies: back pain Skin: Reports: as per HPI Neurological: Denies: weakness Past Medical History Past Medical History: Atrial Fibrillation, Diabetes Mellitus, Deep Vein Thrombosis (DVT), Hyperlipidemia, Hypertension, Myocardial Infarction ([place]), Pneumonia, Vascular Disorder Additional Past Medical History / Comment(s): uvitis glaucoma, PVD, dvt to lower left leg Last Myocardial Infarction Date:: unknown History of Any Multi-Drug Resistant Organisms: MRSA Date of last positivie culture/infection: 02/20/20 MDRO Source:: left leg Past Surgical History: Hernia Repair, Orthopedic Surgery Additional Past Surgical History / Comment(s): aortgram w/ runnoff, eye surg implant, bilateral knee SX, left vein stripping in 02/2020 x2, vein graft and toe amputation Past Anesthesia/Blood Transfusion Reactions: No Reported Reaction Additional Past Anesthesia/Blood Transfusion Reaction / Comment(s): no hx blood transfusion Past Psychological History: No Psychological Hx Reported Smoking Status: Former smoker Past Alcohol Use History: Rare Past Drug Use History: Marijuana - Past Family History Mother History Unknown: Yes Brother(s) Family Medical History: COPD Additional Family Medical History / Comment(s): passed from COPD Father Family Medical History: Myocardial Infarction ([place]) Additional Family Medical History / Comment(s): passed from [place] General Exam Limitations: no limitations General appearance: alert, in no apparent distress Head exam: Present: normocephalic Eye exam: Present: normal appearance Respiratory exam: Present: normal lung sounds bilaterally Cardiovascular Exam: Present: regular rate, normal rhythm Expanded Peripheral pulses: 2+: Posterior Tibialis (R), Posterior Tibialis (L), Dorsalis Pedis (R), Dorsalis Pedis (L) GI/Abdominal exam: Present: soft. Absent: tenderness Extremities exam: Present: other (Left lower leg incision below the knee with approximately 1 cm of dehiscence. No erythema or tenderness. No swelling. T race amount of purulence with pressure) Neurological exam: Present: alert Psychiatric exam: Present: normal affect, normal mood Skin exam: Present: other (Left leg incision with less than 1 cm of dehiscence) Course Vital Signs 06/30/20 09:07 Temperature 98.6 F Pulse Rate 59 L Respiratory 18 Rate Blood Pressure 140/76 O2 Sat by Pulse 99 Oximetry Medical Decision Making - Medical Decision Making Case was discussed with Dr. Hess who is familiar with this patient. She is agreeable with plan of cost flex and follow-up as scheduled Disposition Clinical Impression: Wound dehiscence Disposition: HOME SELF-CARE Condition: Stable Instructions (If sedation given, give patient instructions): Wound Infection (ED) Additional Instructions: Please follow-up with Dr. Dennison as scheduled. Return for fever, redness, swelling, increased pain or discharge, worsening symptoms or any other concerns. Please also follow-up to primary care physician in the next day or 2. Prescription was sent to [facility] on [address] Prescriptions: Cephalexin [Keflex] 500 mg PO QID #40 cap Is patient prescribed a controlled substance at d/c from ED?: No Referrals: Betito Romo MD [Primary Care Provider] - 1-2 days Stephen Dennison DO [Doctor of Osteopathic Medicine] - 1-2 days Time of Disposition: 09:35
== END 2020-06-30 10:15 | disposition home or self-care (01) ==
LOC: EC 09:04
DX: T81.30XA Disruption of wound, unspecified, initial encounter (principal); E11.9 Type 2 diabetes mellitus without complications; E78.5 Hyperlipidemia, unspecified; I10 Essential (primary) hypertension; I25.2 Old myocardial infarction; Z79.4 Long term (current) use of insulin; Z79.899 Other long term (current) drug therapy; Z88.6 Allergy status to analgesic agent; Z88.8 Allergy status to other drugs, medicaments and biological substances; Z87.891 Personal history of nicotine dependence; Z86.14 Personal history of Methicillin resistant Staphylococcus aureus infection; Z86.718 Personal history of other venous thrombosis and embolism; Z89.429 Acquired absence of other toe(s), unspecified side
CPT/HCPCS: 87070; 87205; 99283

== ENCOUNTER 2021-02-15 23:25 | Inpatient (IN) | payer MEDICARE, OTHER ==
[2021-02-15] MEDS ORDERED: SODIUM CHLORIDE 0.9% 1,000 ML IV ONE (23:55)
[2021-02-15 23:57] LABS: Glucose,Whole Blood >600 mg/dL (75-99)
[2021-02-16] MEDS ORDERED: SODIUM CHLORIDE 0.9% 1,000 ML IV ONE ×2 (00:02→05:31)
[2021-02-16] MEDS ORDERED: INSULIN REGULAR 100 UNIT/ML VIAL IV STA (00:02)
[2021-02-16] MEDS ORDERED: LORazepam 2 MG/ML INJ IV STA (00:03)
--- NOTE | 2021-02-16 00:08 | ED ---
General Adult HPI - General Chief complaint: Headache Stated complaint: Neuro Deficits Time Seen by Provider: 02/15/21 23:30 Source: patient Mode of arrival: ambulatory - History of Present Illness Initial comments: This patient is a 55-year-old man who presents to be evaluated for what he was concerned may be a stroke. He states that about 4 days ago he started having spasms of his right arm that were coming on multiple times a day. He states that his right hand and arm would flex and tighten up, lasting minutes at a time. The patient states that around that time he also had run out of his diabetic medications. Onset/Timin -: days(s) Location: right, upper extremity Radiation: non-radiation Quality: other Consistency: intermittent Improves with: none Worsens with: none Treatments Prior to Arrival: none - Related Data Previous Rx's Medication Instructions Recorded Acetaminophen Tab [Tylenol] 650 mg PO Q6HR PRN tab 02/20/21 Aspirin 81 mg PO DAILY #30 chew 02/20/21 Clopidogrel [Plavix] 75 mg PO DAILY #30 tab 02/20/21 DULoxetine HCL [Cymbalta] 20 mg PO DAILY 30 Days #30 02/20/21 capsule. Doxazosin [Cardura] 4 mg PO DAILY #30 tab 02/20/21 Glimepiride [Amaryl] 2 mg PO DAILY #30 tab 02/20/21 INSULIN ASPART (NovoLOG) [NovoLOG 10 unit SQ AC-TID #1 vial 02/20/21 (formulary)] Insulin Glargine [Lantus] 55 unit SQ HS #1 vial 02/20/21 Simvastatin [Zocor] 20 mg PO HS #30 tab 02/20/21 amLODIPine [Norvasc] 10 mg PO DAILY #30 tab 02/20/21 carvediloL [Coreg] 3.125 mg PO BID-W/MEALS #60 tab 02/20/21 hydroCHLOROthiazide [Hydrodiuril] 25 mg PO DAILY #30 tab 02/20/21 levETIRAcetam [Keppra] 500 mg PO Q12HR #60 tab 02/20/21 lisinopriL [Prinivil] 20 mg PO BID #60 tablet 02/20/21 metFORMIN HCL [Glucophage] 500 mg PO BID #60 tab 02/20/21 Allergies Allergy/AdvReac Type Severity Reaction Status Date / Time atorvastatin [From Lipitor] Allergy Swelling Verified 02/16/21 10:07 ibuprofen Allergy Swelling Verified 02/16/21 10:07 pregabalin [From Lyrica] Allergy Swelling Verified 02/16/21 10:07 Review of Systems ROS Statement: Those systems with pertinent positive or pertinent negative responses have been documented in the HPI. ROS Other: All systems not noted in ROS Statement are negative. Constitutional: Denies: fever, chills, weakness Eyes: Denies: vision change ENT: Reports: hearing loss (Chronic) Respiratory: Denies: cough, dyspnea Cardiovascular: Denies: chest pain, palpitations, edema, syncope Gastrointestinal: Denies: abdominal pain, vomiting, diarrhea Genitourinary: Denies: dysuria, hematuria Musculoskeletal: Denies: back pain Skin: Denies: rash Neurological: Reports: as per HPI, headache. Denies: weakness, numbness, paresthesias, confusion Past Medical History Past Medical History: Atrial Fibrillation, Diabetes Mellitus, Deep Vein Throm bosis (DVT), Hyperlipidemia, Hypertension, Myocardial Infarction ([place]), Pneumonia, Vascular Disorder Additional Past Medical History / Comment(s): uvitis glaucoma, PVD, dvt to lower left leg Last Myocardial Infarction Date:: unknown History of Any Multi-Drug Resistant Organisms: MRSA Date of last positivie culture/infection: 06/30/20 MDRO Source:: Left Leg Past Surgical History: Hernia Repair, Orthopedic Surgery Additional Past Surgical History / Comment(s): aortgram w/ runnoff, eye surg implant, bilateral knee SX, left vein stripping in 02/2020 x2, vein graft and toe amputation Past Anesthesia/Blood Transfusion Reactions: No Reported Reaction Additional Past Anesthesia/Blood Transfusion Reaction / Comment(s): no hx blood transfusion Past Psychological History: No Psychological Hx Reported Smoking Status: Former smoker Past Alcohol Use History: Rare Past Drug Use History: Marijuana - Past Family History Mother History Unknown: Yes Brother(s) Family Medical History: COPD Additional Family Medical History / Comment(s): passed from COPD Father Family Medical History: Myocardial Infarction ([place]) Additional Family Medical History / Comment(s): passed from [place] General Exam General appearance: alert, in no apparent distress Head exam: Present: atraumatic, normocephalic Eye exam: Present: normal appearance, PERRL, EOMI. Absent: scleral icterus, conjunctival injection, nystagmus ENT exam: Present: mucous membranes dry Neck exam: Present: normal inspection, full ROM. Absent: tenderness, meningismus Respiratory exam: Present: normal lung sounds bilaterally. Absent: respiratory distress, wheezes, rales, rhonchi, stridor Cardiovascular Exam: Present: regular rate, normal rhythm, normal heart sounds. Absent: systolic murmur, diastolic murmur, rubs, gallop GI/Abdominal exam: Present: soft. Absent: distended, tenderness, guarding, rebound, rigid, mass Extremities exam: Present: normal inspection, normal capillary refill. Absent: pedal edema, calf tenderness Back exam: Present: normal inspection. Absent: CVA tenderness (R), CVA tenderness (L) Neurological exam: Present: alert, oriented X3, CN II-XII intact. Absent: motor sensory deficit Skin exam: Present: warm, dry, intact, normal color. Absent: rash Course Vital Signs 02/15/21 02/16/21 02/16/21 23:35 05:37 08:00 Temperature 98.2 F Pulse Rate 95 70 77 Pulse Rate [ Pulse Oximetery ] Respiratory 18 116 H 18 Rate Blood Pressure 207/98 179/90 188/114 Blood Pressure [Right Arm] O2 Sat by Pulse 97 98 100 Oximetry 02/16/21 02/16/21 02/16/21 09:31 10:44 12:00 Temperature Pulse Rate 86 74 65 Pulse Rate [ Pulse Oximetery ] Respiratory 19 17 17 Rate Blood Pressure 151/70 153/81 154/69 Blood Pressure [Right Arm] O2 Sat by Pulse 100 97 100 Oximetry 02/16/21 02/16/21 14:40 17:15 Temperature 98.2 F Pulse Rate 80 Pulse Rate [ 80 Pulse Oximetery ] Respiratory 18 Rate Blood Pressure 189/104 Blood Pressure 173/94 [Right Arm] O2 Sat by Pulse 98 100 Oximetry EKG Findings - EKG Comments: EKG Findings:: Possible old anterolateral infarct. - EKG Results: EKG: interpreted by KAVEH, sinus rhythm (Rate 78 bpm) - Blocks, [place], Hypertrophy, ST Abn: QRS axis and voltage: left axis deviation (-30 to -90) Chamber hypertrophy or enlargement: left ventricular hypertrophy or enlargement (LVE) - [place], Pacemaker, Normal: Myocardial infarction: inferior [place] (old age indeterminate) Medical Decision Making - Lab Data Result diagrams: 02/17/21 07:51 02/20/21 09:34 Lab Results 02/15/21 02/16/21 02/16/21 Range/Units 23:53 00:24 00:24 WBC 7.1 (3.8-10.6) k/uL RBC 4.54 (4.30-5.90) m/uL Hgb 13.5 (13.0-17.5) gm/dL Hct 41.4 (39.0-53.0) % MCV 91.0 (80.0-100.0) fL MCH 29.7 (25.0-35.0) pg MCHC 32.6 (31.0-37.0) g/dL RDW 12.4 (11.5-15.5) % Plt Count 344 (150-450) k/uL MPV 8.1 Neutrophils % 67 % Lymphocytes % 24 % Monocytes % 5 % Eosinophils % 2 % Basophils % 0 % Neutrophils # 4.8 (1.3-7.7) k/uL Lymphocytes # 1.7 (1.0-4.8) k/uL Monocytes # 0.3 (0-1.0) k/uL Eosinophils # 0.1 (0-0.7) k/uL Basophils # 0.0 (0-0.2) k/uL Sodium (137-145) mmol/L Potassium (3.5-5.1) mmol/L Chloride (98-107) mmol/L Carbon Dioxide (22-30) mmol/L Anion Gap mmol/L BUN (9-20) mg/dL Creatinine (0.66-1.25) mg/dL Est GFR (CKD-EPI)AfAm (>60 ml/min/1.73 sqM) Est GFR (CKD-EPI)NonAf (>60 ml/min/1.73 sqM) Glucose (74-99) mg/dL POC Glucose (mg/dL) >600 H (75-99) mg/dL POC Glu Electrostatic Painter ID Krishna Maximiliano [address] Glu mg/dL Hemoglobin A1c (4.0-6.0) % Calcium (8.4-10.2) mg/dL Total Bilirubin (0.2-1.3) mg/dL AST (17-59) U/L ALT (4-49) U/L Alkaline Phosphatase (38-126) U/L Troponin I (0.000-0.034) ng/mL Total Protein (6.3-8.2) g/dL Albumin (3.5-5.0) g/dL Urine Color Colorless Urine Appearance Clear (Clear) Urine pH 5.0 (5.0-8.0) Ur Specific [place] 1.034 (1.001-1.035) Urine Protein Trace H (Negative) Urine Glucose (UA) 4+ H (Negative) Urine Ketones 1+ H (Negative) Urine Blood Negative (Negative) Urine Nitrite Negative (Negative) Urine Bilirubin Negative (Negative) Urine Urobilinogen <2.0 (<2.0) mg/dL Ur Leukocyte Esterase Negative (Negative) Urine Opiates Screen (NotDetected) Ur Oxycodone Screen (NotDetected) Urine Methadone Screen (NotDetected) Ur Propoxyphene Screen (NotDetected) Ur Barbiturates Screen (NotDetected) U Tricyclic Antidepress (NotDetected) Ur Phencyclidine Scrn (NotDetected) Ur Amphetamines Screen (NotDetected) U Methamphetamines Scrn (NotDetected) U Benzodiazepines Scrn (NotDetected) Urine Cocaine Screen (NotDetected) U Marijuana (THC) Screen (NotDetected) Serum Alcohol mg/dL Acetone, Qual (Negative) 02/16/21 02/16/21 02/16/21 Range/Units 00:24 00:24 00:24 WBC (3.8-10.6) k/uL RBC (4.30-5.90) m/uL Hgb (13.0-17.5) gm/dL Hct (39.0-53.0) % MCV (80.0-100.0) fL MCH (25.0-35.0) pg MCHC (31.0-37.0) g/dL RDW (11.5-15.5) % Plt Count (150-450) k/uL MPV Neutrophils % % Lymphocytes % % Monocytes % % Eosinophils % % Basophils % % Neutrophils # (1.3-7.7) k/uL Lymphocytes # (1.0-4.8) k/uL Monocytes # (0-1.0) k/uL Eosinophils # (0-0.7) k/uL Basophils # (0-0.2) k/uL Sodium 126 L (137-145) mmol/L Potassium 4.6 (3.5-5.1) mmol/L Chloride 90 L (98-107) mmol/L Carbon Dioxide 24 (22-30) mmol/L Anion Gap 12 mmol/L BUN 14 (9-20) mg/dL Creatinine 1.03 (0.66-1.25) mg/dL Est GFR (CKD-EPI)AfAm >90 (>60 ml/min/1.73 sqM) Est GFR (CKD-EPI)NonAf 81 (>60 ml/min/1.73 sqM) Glucose 651 H* (74-99) mg/dL POC Glucose (mg/dL) (75-99) mg/dL POC Glu Electrostatic Painter ID Estimated Ave Glu mg/dL Hemoglobin A1c (4.0-6.0) % Calcium 9.6 (8.4-10.2) mg/dL Total Bilirubin 0.5 (0.2-1.3) mg/dL AST 20 (17-59) U/L ALT 15 (4-49) U/L Alkaline Phosphatase 95 (38-126) U/L Troponin I 0.050 H* (0.000-0.034) ng/mL Total Protein 6.6 (6.3-8.2) g/dL Albumin 4.0 (3.5-5.0) g/dL Urine Color Urine Appearance (Clear) Urine pH (5.0-8.0) Ur Specific [place] (1.001-1.035) Urine Protein (Negative) Urine Glucose (UA) (Negative) Urine Ketones (Negative) Urine Blood (Negative) Urine Nitrite (Negative) Urine Bilirubin (Negative) Urine Urobilinogen (<2.0) mg/dL Ur Leukocyte Esterase (Negative) Urine Opiates Screen Not Detected (NotDetected) Ur Oxycodone Screen Not Detected (NotDetected) Urine Methadone Screen Not Detected (NotDetected) Ur Propoxyphene Screen Not Detected (NotDetected) Ur Barbiturates Screen Not Detected (NotDetected) U Tricyclic Antidepress Not Detected (NotDetected) Ur Phencyclidine Scrn Not Detected (NotDetected) Ur Amphetamines Screen Not Detected (NotDetected) U Methamphetamines Scrn Not Detected (NotDetected) U Benzodiazepines Scrn Not Detected (NotDetected) Urine Cocaine Screen Detected H (NotDetected) U Marijuana (THC) Screen Detected H (NotDetected) Serum Alcohol <10 mg/dL Acetone, Qual Positive (Negative) 02/16/21 Range/Units 00:24 WBC (3.8-10.6) k/uL RBC (4.30-5.90) m/uL Hgb (13.0-17.5) gm/dL Hct (39.0-53.0) % MCV (80.0-100.0) fL MCH (25.0-35.0) pg MCHC (31.0-37.0) g/dL RDW (11.5-15.5) % Plt Count (150-450) k/uL MPV Neutrophils % % Lymphocytes % % Monocytes % % Eosinophils % % Basophils % % Neutrophils # (1.3-7.7) k/uL Lymphocytes # (1.0-4.8) k/uL Monocytes # (0-1.0) k/uL Eosinophils # (0-0.7) k/uL Basophils # (0-0.2) k/uL Sodium (137-145) mmol/L Potassium (3.5-5.1) mmol/L Chloride (98-107) mmol/L Carbon Dioxide (22-30) mmol/L Anion Gap mmol/L BUN (9-20) mg/dL Creatinine (0.66-1.25) mg/dL Est GFR (CKD-EPI)AfAm (>60 ml/min/1.73 sqM) Est GFR (CKD-EPI)NonAf (>60 ml/min/1.73 sqM) Glucose (74-99) mg/dL POC Glucose (mg/dL) (75-99) mg/dL POC Glu Electrostatic Painter ID Estimated Ave Glu mg/dL 329 Hemoglobin A1c 13.1 H (4.0-6.0) % Calcium (8.4-10.2) mg/dL Total Bilirubin (0.2-1.3) mg/dL AST (17-59) U/L ALT (4-49) U/L Alkaline Phosphatase (38-126) U/L Troponin I (0.000-0.034) ng/mL Total Protein (6.3-8.2) g/dL Albumin (3.5-5.0) g/dL Urine Color Urine Appearance (Clear) Urine pH (5.0-8.0) Ur Specific [place] (1.001-1.035) Urine Protein (Negative) Urine Glucose (UA) (Negative) Urine Ketones (Negative) Urine Blood (Negative) Urine Nitrite (Negative) Urine Bilirubin (Negative) Urine Urobilinogen (<2.0) mg/dL Ur Leukocyte Esterase (Negative) Urine Opiates Screen (NotDetected) Ur Oxycodone Screen (NotDetected) Urine Methadone Screen (NotDetected) Ur Propoxyphene Screen (NotDetected) Ur Barbiturates Screen (NotDetected) U Tricyclic Antidepress (NotDetected) Ur Phencyclidine Scrn (NotDetected) Ur Amphetamines Screen (NotDetected) U Methamphetamines Scrn (NotDetected) U Benzodiazepines Scrn (NotDetected) Urine Cocaine Screen (NotDetected) U Marijuana (THC) Screen (NotDetected) Serum Alcohol mg/dL Acetone, Qual (Negative) Disposition Clinical Impression: Seizure, Elevated troponin I level, Hyperglycemia Disposition: ADMITTED IP TO THIS HOSP Condition: Fair
[2021-02-16 00:47] LABS: Basophils % (A) 0 %; Eosinophils # (A) 0.1 k/uL (0-0.7); Eosinophils % (A) 2 %; HCT 41.4 % (39.0-53.0); HGB 13.5 gm/dL (13.0-17.5); Lymphocytes # (A) 1.7 k/uL (1.0-4.8); Lymphocytes % (A) 24 %; MCH 29.7 pg (25.0-35.0); MCHC 32.6 g/dL (31.0-37.0); Mean Platelet Volume 8.1; Monocytes # (A) 0.3 k/uL (0-1.0); Monocytes % (A) 5 %; Neutrophils # (A) 4.8 k/uL (1.3-7.7); Neutrophils % (A) 67 %; Platelet Count 344 k/uL (150-450); RBC 4.54 m/uL (4.30-5.90); RDW 12.4 % (11.5-15.5); WBC 7.1 k/uL (3.8-10.6)
[2021-02-16 01:04] LABS: ALT 15 U/L (4-49); AST 20 U/L (17-59); African American GFR (CKD) >90 (>60 ml/min/1.73 sqM); Alcohol <10 mg/dL; Alkaline Phosphatase 95 U/L (38-126); Amphetamine Screen,Urine Not Detected (NotDetected); Anion Gap 12 mmol/L; Barbiturate Screen,Urine Not Detected (NotDetected); Benzodiazepines Screen,Urine Not Detected (NotDetected); Blood Urea Nitrogen 14 mg/dL (9-20); Calcium 9.6 mg/dL (8.4-10.2); Carbon Dioxide 24 mmol/L (22-30); Chloride 90 mmol/L (98-107); Cocaine Screen,Urine Detected (NotDetected); Methadone Screen, Urine Not Detected (NotDetected); Non-African American GFR(CKD) 81 (>60 ml/min/1.73 sqM); Opiate Screen,Urine Not Detected (NotDetected); Oxycodone Screen, Urine Not Detected (NotDetected); Phencyclidine Screen,Urine Not Detected (NotDetected); Potassium 4.6 mmol/L (3.5-5.1); Sodium 126 mmol/L (137-145); Total Bilirubin 0.5 mg/dL (0.2-1.3); Total Protein 6.6 g/dL (6.3-8.2); Tricyclic Antidepressant,Urine Not Detected (NotDetected); Urn Cannabinoid Scrn Detected (NotDetected)
--- NOTE | 2021-02-16 01:05 | XR ---
EXAM: XR Chest, 2 Views CLINICAL HISTORY: altered mental status TECHNIQUE: Frontal and lateral views of the chest. COMPARISON: 05/28/2020 FINDINGS: Lungs: No significant abnormality. No consolidation. Pleural space: No significant abnormality. No pneumothorax. Heart: No significant abnormality. No cardiomegaly. Mediastinum: No significant abnormality. Bones/joints: No acute osseous abnormality. IMPRESSION: No acute cardiopulmonary process.
[2021-02-16 01:14] LABS: Glucose 651 mg/dL (74-99)
--- NOTE | 2021-02-16 01:29 | CT ---
EXAM: CT Head Without Intravenous Contrast CLINICAL HISTORY: headache TECHNIQUE: Axial computed tomography images of the head/brain without intravenous contrast. CTDI is 49.27 mGy and DLP is 1096.4 mGy-cm. This CT exam was performed using one or more of the following dose reduction techniques: automated exposure control, adjustment of the mA and/or kV according to patient size, and/or use of iterative reconstruction technique. COMPARISON: 09/11/2015 FINDINGS: Brain: No acute intracranial hemorrhage or significant mass effect. No acute territorial infarct. Encephalomalacia in the left frontal lobe. Nonspecific areas of hypoattenuation in the periventricular white matter likely represent the sequela of chronic small vessel ischemic disease. Ventricles: No hydrocephalus. Extra-axial dilatation of the anterior horn of the left lateral ventricle. Bones/joints: No acute abnormality. Soft tissues: No significant abnormality. Sinuses: No significant abnormality. Mastoid air cells: No significant abnormality. IMPRESSION: No acute intracranial abnormality.
[2021-02-16 01:35] LABS: Appearance,Urine Clear (Clear); Bilirubin,Urine Negative (Negative); Blood,Urine Negative (Negative); Color,Urine Colorless; Glucose,Urine (UA) 4+ (Negative); Ketones,Urine 1+ (Negative); Leukocyte Esterase,Urine Negative (Negative); Nitrite,Urine Negative (Negative); Protein,Urine Trace (Negative); Specific Gravity,Urine 1.034 (1.001-1.035); Urobilinogen,Urine <2.0 mg/dL (<2.0)
[2021-02-16] MEDS ORDERED: NALOXONE 0.4 MG/ML 1 ML VIAL IV PRN (02:12)
[2021-02-16] MEDS ORDERED: LORazepam 2 MG/ML INJ IV PRN (02:12)
[2021-02-16] MEDS ORDERED: ACETAMINOPHEN TAB 325 MG TAB PO PRN (02:12)
[2021-02-16] MEDS: SODIUM CHLORIDE 0.9% 1,000 ML IV SCH ×4 (03:15→20:29)
[2021-02-16 04:10] LABS: Glucose,Whole Blood 361 mg/dL (75-99)
[2021-02-16] MEDS ORDERED: INSULIN REGULAR 100 UNIT/ML VIAL SQ STA (05:30)
[2021-02-16] MEDS ORDERED: amLODIPine 5 MG TAB PO SCH (07:12)
[2021-02-16 07:22] LABS: Glucose,Whole Blood 288 mg/dL (75-99)
[2021-02-16] MEDS ORDERED: levETIRAcetam IV 1,000 MG in SALINE 1 100ML.BAG IVPB STA (09:06)
--- NOTE | 2021-02-16 09:16 | P.CNNES ---
History of Present Illness Consult date: 02/16/21 Requesting physician: Blas Meadows Reason for Consult: possible focal seizure activity History of Present Illness: This is a 55-year-old gentleman with medical history of diabetes mellitus, peripheral arterial disease status post vein stripping with graft and toe amputation (02/2020), hyperlipidemia, hypertension, myocardial infarction, atrial fibrillation, DVT of lower extremity who presented emergency department o n 02/15/2021 because uncontrolled movement of the right arm. Patient stated that for the last 4 days and right facial droop I droop and then he would have the jerking of the right upper extremity that is uncontrolled lasting the seconds to a minutes or 2. He denies any loss of consciousness we'll she with this. Denies of any urinary or bowel incontinence. He said that the these episodes can happen multiple times in a day. He felt like it's progressively increasing induration. He denies any history of seizure in the past or any family history of seizures. He denies any jerk in the to the lower extremity. Patient has run out of his diabetic medication and that same duration 4 days. He does submit smoke cocaine and uses marijuana. He denies of any heroin use. He socially drinks alcohol and he said the last drink was about 3 month ago. Regarding his history he said that the there is no complications other as a result of his history but does not know the other details of his whether it was term, vaginal delivery or . There is no family history of seizures. Some of the workup in the hospital consisted of: Initial vital signs is blood pressure of 207/98, heart rate of 95, respiratory of 18, temperature of 98.2 Fahrenheit oral and pulse ox of 98% room air. CT of the head is reported as no acute intracranial abnormality. I personally reviewed the CT head and I felt there is suspicious of growth over the left lateral horn ventricle and felt compressing on it. EKG is reported as poor data quality, dictation the may be adversely affected the. Normal sinus rhythm. Left axis deviation. Moderate voltage criteria for left ventricle hypertrophy may be normal variant. Inferior infarct, age undetermined. Possible anterolateral infarct, age undetermined. White blood cell percentage is 7.1 and the the CBC looks unremarkable. Initial POC glucose is more than 600 and the serum glucose is 651. But the last POC glucose reading is 288. Initial troponin is 0.05 and the repeat his 0.0455. The sodium is 126. Urine tox screen is positive for cocaine as well as marijuana. Serum alcohol was less than 10 and acetone the level is positive Review of Systems Review of system: The 12 point system was reviewed and apparent positive and negative per HPI. Past Medical History Past Medical History: Atrial Fibrillation, Diabetes Mellitus, Deep Vein Thrombosis (DVT), Hyperlipidemia, Hypertension, Myocardial Infarction ([place]), Pneumonia, Vascular Disorder Additional Past Medical History / Comment(s): uvitis glaucoma, PVD, dvt to lower left leg Last Myocardial Infarction Date:: unknown History of Any Multi-Drug Resistant Organisms: MRSA Date of last positivie culture/infection: 06/30/20 MDRO Source:: Left Leg Past Surgical History: Hernia Repair, Orthopedic Surgery Additional Past Surgical History / Comment(s): aortgram w/ runnoff, eye surg implant, bilateral knee SX, left vein stripping in 02/2020 x2, vein graft and toe amputation Past Anesthesia/Blood Transfusion Reactions: No Reported Reaction Additional Past Anesthesia/Blood Transfusion Reaction / Comment(s): no hx blood transfusion Past Psychological History: No Psychological Hx Reported Smoking Status: Former smoker Past Alcohol Use History: Rare Past Drug Use History: Marijuana - Past Family History Mother History Unknown: Yes Brother(s) Family Medical History: COPD Additional Family Medical History / Comment(s): passed from COPD Father Family Medical History: Myocardial Infarction ([place]) Additional Family Medical History / Comment(s): passed from [place] Medications and Allergies Home Medications Medication Instructions Recorded Confirmed Type amLODIPine [Norvasc] 10 mg PO DAILY 09/11/15 05/28/20 History atenoloL [Atenolol] 25 mg PO BID 09/11/15 05/28/20 History Glimepiride [Amaryl] 2 mg PO DAILY 02/01/20 05/28/20 History DULoxetine HCL [Cymbalta] 20 mg PO DAILY 30 Days #30 02/27/20 05/28/20 Rx capsule. Famotidine 40 mg PO DAILY 04/25/20 05/28/20 History INSULIN ASPART (NovoLOG) [NovoLOG 10 unit SQ AC-TID 05/11/20 05/28/20 History (formulary)] metFORMIN HCL [Glucophage] 500 mg PO BID 05/11/20 05/28/20 History Aspirin 81 mg PO DAILY #30 chew 06/07/20 Rx Atorvastatin [Lipitor] 40 mg PO DAILY #30 tab 06/07/20 Rx Clopidogrel [Plavix] 75 mg PO DAILY #30 tab 06/07/20 Rx Gabapentin 800 mg PO TID 10 Days #30 tab 06/07/20 Rx HYDROcodone/APAP 10-325MG [[place] 0.5 tab PO BID PRN #20 tab 06/07/20 Rx 10-325] Insulin Glargine [Lantus] 42 unit SQ HS 30 Days #1 vial 06/07/20 05/28/20 Rx hydrALAZINE HCL [Apresoline] 100 mg PO TID #90 tab 06/07/20 Rx lisinopriL [Zestril] 20 mg PO BID #60 tab 06/07/20 Rx Cephalexin [Keflex] 500 mg PO QID #40 cap 06/30/20 Rx Sulfamethox-Tmp 800-160Mg [Bactrim 1 each PO Q12HR #20 tab 06/30/20 Rx DS 800-160 mg] Allergies Allergy/AdvReac Type Severity Reaction Status Date / Time atorvastatin [From Lipitor] Allergy Swelling Verified 02/15/21 23:37 ibuprofen Allergy Swelling Verified 02/15/21 23:37 pregabalin [From Lyrica] Allergy Swelling Verified 02/15/21 23:37 Physical Examination - Vital Signs Vital Signs: Vital Signs Temp Pulse Resp BP Pulse Ox 02/16/21 05:37 70 116 H 179/90 98 02/15/21 23:35 98.2 F 95 18 207/98 97 Intake and Output 02/15/21 02/16/21 02/16/21 22:59 06:59 14:59 Other: Weight 79.832 kg GENERAL: The patient is lying in bed and is not in acute distress. CHEST: The heart rate is regular rate rhythm. No murmurs to auscultation. No carotid bruit bilaterally. LUNG: Clear to auscultation bilaterally no wheezing noted throughout. Not labored breathing. ABDOMEN/GI: Bowel sounds present in all 4 quadrants. No tenderness to palpation throughout. INTEGUMENTARY: Has old scar from surgery over the left lower extremity/calf region. NEUROLOGICAL: Higher mental function: The patient is awake, alert, oriented to self, place and time. Patient is following commands. No aphasia and no neglect. Cranial nerves: The pupils are round, equal and reactive to light and accommodation. Visual zapien are full to confrontation throughout. Extraocular movement is intact no nystagmus is noted. Facial sensation is normal to touch throughout. The facial strength is normal throughout. Hearing is normal bilaterally to hand rub. Tongue is midline and moved [id number] without any difficulty. No dysarthria is noted. Shoulder shrug is normal bilaterally. Motor: Gait is deferred. The strength is 5 over 5 throughout. Normal tone and bulk. Cerebellum: Normal finger to nose heel to chin bilaterally. Sensation: Sensation is normal to touch throughout. Reflexes (right/left): 2+ throughout. Plantars is mute over the right while left he has left toe amputation. Results Urinalysis is negative for urinary tract infection. [place] virus PCR was not detected - Laboratory Findings CBC and BMP: 02/16/21 00:24 02/16/21 00:24 Abnormal Lab Findings: Abnormal Labs 02/15/21 02/16/21 02/16/21 23:53 00:24 00:24 Sodium 126 L Chloride 90 L Glucose 651 H* POC Glucose (mg/dL) >600 H Troponin I Urine Protein Trace H Urine Glucose (UA) 4+ H Urine Ketones 1+ H Urine Cocaine Screen U Marijuana (THC) Screen 02/16/21 02/16/21 02/16/21 00:24 00:24 04:08 Sodium Chloride Glucose POC Glucose (mg/dL) 361 H Troponin I 0.050 H* Urine Protein Urine Glucose (UA) Urine Ketones Urine Cocaine Screen Detected H U Marijuana (THC) Screen Detected H 02/16/21 02/16/21 04:20 07:21 Sodium Chloride Glucose POC Glucose (mg/dL) 288 H Troponin I 0.045 H* Urine Protein Urine Glucose (UA) Urine Ketones Urine Cocaine Screen U Marijuana (THC) Screen Assessment and Plan Assessment: * New onset seizure (focal motor seizure without loss of consciousness. Presenting with right facial/eye droop with jerking of the right upper extremity). Upon reviewing the CT of the head I felt there is possibly Mass over the left anterior horn of lateral ventricle. * Diabetic ketoacidosis * Polysubstance use (Positive for cocaine and marijuana use) * Uncontrolled hypertension * Elevated troponin * Peripheral artery disease status post vein stripping with graft and toe amputation (02/2020) * Hyperlipidemia * History of Myocardial infarction * Atrial fibrillation * History DVT of lower extremity Plan: * CT of the head is reported as no acute intracranial abnormality. I personally reviewed the CT head and I felt there is suspicious of growth over the left lateral horn ventricle and felt compressing on it. * I ordered MRI of the brain with and without to rule out mass. * Routine EEG is ordered by the ED team. * I loaded the patient on Keppra 1gm once now and started the patient on Keppra 500mg 1 tab bid (denies of any behavioural issues). * Placed on seizure precaution and fall precaution * Patient was counseled on avoiding on any further illicit drug use. * Cardiology is consulted for elevated troponin. * We'll defer the rest of medical management to the primary team. * The plan is discussed with the patient and his nurse. Thank you for the consultation. Grover Martines M.D. Neuro-hospitalist Time with Patient: Greater than 30
[2021-02-16 11:58] LABS: Glucose,Whole Blood 570 mg/dL (75-99)
[2021-02-16] MEDS: INSULIN ASPART (NovoLOG) 100 UNIT/ML VIAL SQ SCH ×5 (13:58→20:22)
[2021-02-16 15:25] LABS: Glucose,Whole Blood 393 mg/dL (75-99)
[2021-02-16 16:43] LABS: Glucose,Whole Blood 205 mg/dL (75-99)
--- NOTE | 2021-02-16 18:21 | P.HPIM ---
History of Present Illness H&P Date: 02/16/21 Chief Complaint: Headache 55-year-old man who presents to be evaluated for what he was concerned may be a stroke. He states that about 4 days ago he started having spasms of his right arm that were coming on multiple times a day. He states that his right hand and arm would flex and tighten up, lasting minutes at a time. The patient states that around that time he also had run out of his diabetic medications. CT of the head is reported as no acute intracranial abnormality. White blood cell percentage is 7.1 and the the CBC looks unremarkable. Initial POC glucose is more than 600 and the serum glucose is 651. But the last POC glucose reading is 288. Initial troponin is 0.05 and the repeat his 0.0455; sodium is 126. Urine drug screen is positive for cocaine as well as marijuana. Serum alcohol was less than 10 and acetone the level is positive Review of Systems REVIEW OF SYSTEMS: CONSTITUTIONAL: No fever, no malaise, no fatigue. HEENT: No recent visual problems or hearing problems. Denied any sore throat. CARDIOVASCULAR: No chest pain, orthopnea, PND, no palpitations, no syncope. PULMONARY: No shortness of breath, no cough, no hemoptysis. GASTROINTESTINAL: No diarrhea, no nausea, no vomiting, no abdominal pain. NEUROLOGICAL: No headaches, no weakness, no numbness. HEMATOLOGICAL: Denies any bleeding or petechiae. GENITOURINARY: Denies any burning micturition, frequency, or urgency. MUSCULOSKELETAL/RHEUMATOLOGICAL: Denies any joint pain, swelling, or any muscle pain. ENDOCRINE: Denies any polyuria or polydipsia. The rest of the 14-point review of systems is negative. Past Medical History Past Medical History: Atrial Fibrillation, Diabetes Mellitus, Deep Vein Thrombosis (DVT), Hyperlipidemia, Hypertension, Myocardial Infarction ([place]), Pneumonia, Vascular Disorder Additional Past Medical History / Comment(s): uvitis glaucoma, PVD, dvt to lower left leg Last Myocardial Infarction Date:: unknown History of Any Multi-Drug Resistant Organisms: MRSA Date of last positivie culture/infection: 06/30/20 MDRO Source:: Left Leg Past Surgical History: Hernia Repair, Orthopedic Surgery Additional Past Surgical History / Comment(s): aortgram w/ runnoff, eye surg i mplant, bilateral knee SX, left vein stripping in 02/2020 x2, vein graft and toe amputation Past Anesthesia/Blood Transfusion Reactions: No Reported Reaction Additional Past Anesthesia/Blood Transfusion Reaction / Comment(s): no hx blood transfusion Past Psychological History: No Psychological Hx Reported Smoking Status: Former smoker Past Alcohol Use History: Rare Past Drug Use History: Marijuana - Past Family History Mother History Unknown: Yes Brother(s) Family Medical History: COPD Additional Family Medical History / Comment(s): passed from COPD Father Family Medical History: Myocardial Infarction ([place]) Additional Family Medical History / Comment(s): passed from [place] Medications and Allergies Home Medications Medication Instructions Recorded Confirmed Type amLODIPine [Norvasc] 10 mg PO DAILY 09/11/15 02/16/21 History atenoloL [Atenolol] 25 mg PO BID 09/11/15 02/16/21 History Glimepiride [Amaryl] 2 mg PO DAILY 02/01/20 02/16/21 History DULoxetine HCL [Cymbalta] 20 mg PO DAILY 30 Days #30 02/27/20 02/16/21 Rx capsule. INSULIN ASPART (NovoLOG) [NovoLOG 10 unit SQ AC-TID 05/11/20 02/16/21 History (formulary)] metFORMIN HCL [Glucophage] 500 mg PO BID 05/11/20 02/16/21 History Aspirin 81 mg PO DAILY #30 chew 06/07/20 02/16/21 Rx Clopidogrel [Plavix] 75 mg PO DAILY #30 tab 06/07/20 02/16/21 Rx Insulin Glargine [Lantus] 55 unit SQ HS 02/16/21 02/16/21 History Simvastatin [Zocor] 20 mg PO HS 02/16/21 02/16/21 History lisinopriL [Zestril] 20 mg PO DAILY 02/16/21 02/16/21 History Allergies Allergy/AdvReac Type Severity Reaction Status Date / Time atorvastatin [From Lipitor] Allergy Swelling Verified 02/16/21 10:07 ibuprofen Allergy Swelling Verified 02/16/21 10:07 pregabalin [From Lyrica] Allergy Swelling Verified 02/16/21 10:07 Physical Exam Vitals: Vital Signs Temp Pulse Resp BP Pulse Ox 02/16/21 12:00 65 17 154/69 100 02/16/21 10:44 74 17 153/81 97 02/16/21 09:31 86 19 151/70 100 02/16/21 08:00 77 18 188/114 100 02/16/21 05:37 70 116 H 179/90 98 02/15/21 23:35 98.2 F 95 18 207/98 97 Intake and Output 02/15/21 02/16/21 02/16/21 22:59 06:59 14:59 Output Total 880 Balance -880 Output: Urine 880 Other: Weight 79.832 kg - Constitutional General appearance: Present: average body habitus, cooperative, no acute distress - EENT Eyes: Present: anicteric sclerae, EOMI, PERRLA, normal appearance ENT: Present: hearing grossly normal, normal oropharynx Ears: bilateral: normal - Neck Neck: Present: normal ROM. Absent: lymphadenopathy, rigidity, thyromegaly Carotids: negative: bruit present Thyroid: bilateral: normal size, negative: enlarged, nodule - Respiratory Respiratory: bilateral: CTA, negative: rales, rhonchi, wheezing - Cardiovascular Rhythm: regular Heart sounds: normal: S1, S2 Abnormal Heart Sounds: Absent: systolic murmur, diastolic murmur - Gastrointestinal General gastrointestinal: Present: normal bowel sounds, soft. Absent: distended, organomegaly, tenderness - Genitourinary Genitourinary Comment(s): deferred - Integumentary Integumentary: Present: normal turgor. Absent: jaundiced, rash, ulcer - Neurologic Neurologic: Present: CNII-XII intact. Absent: focal deficits - Musculoskeletal Musculoskeletal: Present: gait normal, strength equal bilaterally - Psychiatric Psychiatric: Present: A&O x's 3, appropriate affect, intact judgment & insight Results CBC & Chem 7: 02/16/21 00:24 02/16/21 00:24 Labs: Abnormal Lab Results - Last 24 Hours (Table) 02/15/21 02/16/21 02/16/21 Range/Units 23:53 00:24 00:24 Sodium 126 L (137-145) mmol/L Chloride 90 L (98-107) mmol/L Glucose 651 H* (74-99) mg/dL POC Glucose (mg/dL) >600 H (75-99) mg/dL Troponin I (0.000-0.034) ng/mL Urine Protein Trace H (Negative) Urine Glucose (UA) 4+ H (Negative) Urine Ketones 1+ H (Negative) Urine Cocaine Screen (NotDetected) U Marijuana (THC) Screen (NotDetected) 02/16/21 02/16/21 02/16/21 Range/Units 00:24 00:24 04:08 Sodium (137-145) mmol/L Chloride (98-107) mmol/L Glucose (74-99) mg/dL POC Glucose (mg/dL) 361 H (75-99) mg/dL Troponin I 0.050 H* (0.000-0.034) ng/mL Urine Protein (Negative) Urine Glucose (UA) (Negative) Urine Ketones (Negative) Urine Cocaine Screen Detected H (NotDetected) U Marijuana (THC) Screen Detected H (NotDetected) 02/16/21 02/16/21 02/16/21 Range/Units 04:20 07:21 08:03 Sodium (137-145) mmol/L Chloride (98-107) mmol/L Glucose (74-99) mg/dL POC Glucose (mg/dL) 288 H (75-99) mg/dL Troponin I 0.045 H* 0.058 H* (0.000-0.034) ng/mL Urine Protein (Negative) Urine Glucose (UA) (Negative) Urine Ketones (Negative) Urine Cocaine Screen (NotDetected) U Marijuana (THC) Screen (NotDetected) 02/16/21 Range/Units 11:55 Sodium (137-145) mmol/L Chloride (98-107) mmol/L Glucose (74-99) mg/dL POC Glucose (mg/dL) 570 H (75-99) mg/dL Troponin I (0.000-0.034) ng/mL Urine Protein (Negative) Urine Glucose (UA) (Negative) Urine Ketones (Negative) Urine Cocaine Screen (NotDetected) U Marijuana (THC) Screen (NotDetected) Assessment and Plan Assessment: 1. New onset seizures - Neurology on board and concerned about possibility of mass over left anterior horn of lateral ventricle; MRI of the brain is ordered to rule out mass - EEG is ordered but pending - Patient has been started on loading dose of Keppra at 1 g followed by Keppra 500 mg twice a day - Fall and seizure precautions in place - Patient can have when necessary Ativan for breakthrough seizures 2. Hyperglycemia without acidosis; noncompliance with medication - Patient does have history of diabetes mellitus 2, with long-term insulin use; patient reports he's been out of diabetic medication for past 4 days - We will resume home oral hypoglycemic therapy and monitor Accu-Cheks every before meals and at bedtime with insulin sliding scale - Continue with home dose of Lantus at 42 units subcu daily at bedtime 3. Accelerated hypertension - Blood pressure was 207/98 upon presenting to ED; patient is currently taking amlodipine, atenolol, hydralazine and lisinopril - We will restart home antihypertensive therapy with parameters; monitor blood pressure closely and adjust meds as needed 4. Polysubstance abuse; urine drug screen is positive for cocaine and marijuana; counseling done to patient to abstain from in the urine drug use; consult PSYCHOLOGICAL ASSISTANT 5. Elevated troponin; rule out acute coronary syndrome; monitor EKG and trend troponin; order 2-D echo; consult cardiology for further recommendations 6. Peripheral vascular occlusive disease; patient is status post vein stripping with graft and toe amputation in 2020; continue with current dose of aspirin and Plavix 7. Hyperlipidemia; currently not on any statin therapy 8. Atrial fibrillation; remains rate controlled on atenolol; currently not on anticoagulation therapy DVT prophylaxis; SCDs/early ambulation CODE STATUS; full code
[2021-02-16 20:17] LABS: Glucose,Whole Blood 168 mg/dL (75-99)
[2021-02-16] MEDS: atenoloL 25 MG TAB PO SCH (20:22)
[2021-02-16] MEDS: amLODIPine 5 MG TAB PO SCH (20:22)
[2021-02-16] MEDS: metFORMIN 500 MG TAB PO SCH (20:23)
[2021-02-16] MEDS: levETIRAcetam 500 MG TAB PO SCH (20:23)
[2021-02-16] MEDS: INSULIN DETEMIR (LEVEMIR) 100 UNIT/ML SYR SQ SCH (20:23)
[2021-02-16] MEDS: SIMVASTATIN 20 MG PO SCH (20:44)
[2021-02-16 23:26] LABS: Hemoglobin A1C 13.1 % (4.0-6.0)
[2021-02-17] MEDS: SODIUM CHLORIDE 0.9% 1,000 ML IV SCH ×2 (05:25→12:48)
[2021-02-17 06:10] LABS: Glucose,Whole Blood 286 mg/dL (75-99)
[2021-02-17] MEDS: INSULIN ASPART (NovoLOG) 100 UNIT/ML VIAL SQ SCH ×7 (08:09→20:53)
[2021-02-17] MEDS: ASPIRIN 81 MG PO SCH (08:11)
[2021-02-17] MEDS: amLODIPine 5 MG TAB PO SCH ×2 (08:12→20:53)
[2021-02-17] MEDS: DULoxetine HCL 20 MG CAPSULE.DR PO SCH (08:12)
[2021-02-17] MEDS: levETIRAcetam 500 MG TAB PO SCH ×2 (08:12→20:52)
[2021-02-17] MEDS: CLOPIDOGREL 75 MG TAB PO SCH (08:12)
[2021-02-17] MEDS: metFORMIN 500 MG TAB PO SCH ×2 (08:12→20:52)
[2021-02-17] MEDS: atenoloL 25 MG TAB PO SCH (08:12)
[2021-02-17 08:20] LABS: Basophils # (A) 0.1 k/uL (0-0.2); Basophils % (A) 1 %; Eosinophils # (A) 0.2 k/uL (0-0.7); Eosinophils % (A) 2 %; HCT 40.7 % (39.0-53.0); HGB 13.9 gm/dL (13.0-17.5); Lymphocytes # (A) 3.4 k/uL (1.0-4.8); Lymphocytes % (A) 45 %; MCH 30.6 pg (25.0-35.0); MCHC 34.2 g/dL (31.0-37.0); MCV 89.2 fL (80.0-100.0); Mean Platelet Volume 8.4; Monocytes # (A) 0.3 k/uL (0-1.0); Monocytes % (A) 4 %; Neutrophils # (A) 3.4 k/uL (1.3-7.7); Neutrophils % (A) 46 %; Platelet Count 293 k/uL (150-450); RBC 4.56 m/uL (4.30-5.90); WBC 7.5 k/uL (3.8-10.6)
[2021-02-17 08:32] LABS: ALT 39 U/L (4-49); AST 62 U/L (17-59); African American GFR (CKD) >90 (>60 ml/min/1.73 sqM); Albumin 3.4 g/dL (3.5-5.0); Alkaline Phosphatase 61 U/L (38-126); Anion Gap 5 mmol/L; Blood Urea Nitrogen 7 mg/dL (9-20); Calcium 9.1 mg/dL (8.4-10.2); Carbon Dioxide 26 mmol/L (22-30); Chloride 104 mmol/L (98-107); Glucose 260 mg/dL (74-99); Non-African American GFR(CKD) >90 (>60 ml/min/1.73 sqM); Potassium 4.3 mmol/L (3.5-5.1); Sodium 135 mmol/L (137-145); Total Bilirubin 0.4 mg/dL (0.2-1.3)
[2021-02-17] MEDS ORDERED: lisinopriL 20 MG TAB PO SCH (09:00)
[2021-02-17 11:43] LABS: Glucose,Whole Blood 71 mg/dL (75-99)
--- NOTE | 2021-02-17 12:59 | P.CRDCN ---
History of Present Illness History of present illness: This is Dr. Euceda dictating an H/P on this patient The patient was interviewed and examined on January, IMPRESSION / ASSESSMENT: Uncontrolled hypertension Type 2 diabetes, uncontrolled Borderline abnormal troponins with normal renal function but without any chest discomfort Twelve-lead EKG suggests misplaced leads and will be repeated Seen by neurology, new onset focal motor seizure, right facial droop with jerking movements in the right upper extremity Neurology feels that they may be a possible mass over the left anterior on of the lateral ventricle Uncontrolled diabetes with ketosis Polysubstance abuse for cocaine and marijuana Peripheral artery disease status post toe amputation in February 2020 Dyslipidemia The note states the patient has had a history of atrial fibrillation and DVT in the lower extremity PLAN: Hypertension control Amlodipine 5 mg twice daily Increase lisinopril to 20 mg twice daily Consider switching from atenolol to carvedilol Continue statins currently on simvastatin, intolerance or reaction to atorvastatin the past 2-D echo and Doppler study to assess [place] structure and function HPI Patient presented with spasms in his right arm repetitively any tarry is having a stroke He has not of all his medications including his diabetes medications No slurred speech he does have a headache No chest discomfort no undue shortness of breath ROS: No fever chills or rigors, no cough, phlegm or expectoration, no nausea, vomiting or diarrhea, no hematuria, dysuria, no musculoskeletal complaints, no strokes or seizures, no skin lesions. EXAMINATION: Blood pressure 173/94 mmHg, pulse in the 80s Normal S1 normal S2 no murmurs or gallops or rub Breath sounds are clear no rhonchi no crackles Abdomen soft nontender Extremities warm, no edema REVIEW OF LABS, ECG & MEDICAL DATA Labs reviewed White count 7.5, hemoglobin 13.9, platelet count 293 On admission sodium 136, potassium 4.6 BUN 14 creatinine 1.03 Glucose greater than 600 Troponins 0.05, 0.045 Positive glucose and ketones in urine Past history of diabetes and hypertension On clonidine ALLERGY to atorvastatin Past Medical History Past Medical History: Atrial Fibrillation, Diabetes Mellitus, Deep Vein Thrombosis (DVT), Hyperlipidemia, Hypertension, Myocardial Infarction ([place]), Pneumonia, Vascular Disorder Additional Past Medical History / Comment(s): uvitis glaucoma, PVD, dvt to lower left leg Last Myocardial Infarction Date:: unknown History of Any Multi-Drug Resistant Organisms: MRSA Date of last positivie culture/infection: 06/30/20 MDRO Source:: Left Leg Past Surgical History: Hernia Repair, Orthopedic Surgery Additional Past Surgical History / Comment(s): aortgram w/ runnoff, eye surg implant, bilateral knee SX, left vein stripping in 02/2020 x2, vein graft and toe amputation Past Anesthesia/Blood Transfusion Reactions: No Reported Reaction Additional Past Anesthesia/Blood Transfusion Reaction / Comment(s): no hx blood transfusion Past Psychological History: No Psychological Hx Reported Smoking Status: Former smoker Past Alcohol Use History: Rare Past Drug Use History: Marijuana - Past Family History Mother History Unknown: Yes Brother(s) Family Medical History: COPD Additional Family Medical History / Comment(s): passed from COPD Father Family Medical History: Myocardial Infarction ([place]) Additional Family Medical History / Comment(s): passed from [place] Medications and Allergies Home Medications Medication Instructions Recorded Confirmed Type amLODIPine [Norvasc] 10 mg PO DAILY 09/11/15 02/16/21 History atenoloL [Atenolol] 25 mg PO BID 09/11/15 02/16/21 History Glimepiride [Amaryl] 2 mg PO DAILY 02/01/20 02/16/21 History DULoxetine HCL [Cymbalta] 20 mg PO DAILY 30 Days #30 02/27/20 02/16/21 Rx capsule. INSULIN ASPART (NovoLOG) [NovoLOG 10 unit SQ AC-TID 05/11/20 02/16/21 History (formulary)] metFORMIN HCL [Glucophage] 500 mg PO BID 05/11/20 02/16/21 History Aspirin 81 mg PO DAILY #30 chew 06/07/20 02/16/21 Rx Clopidogrel [Plavix] 75 mg PO DAILY #30 tab 06/07/20 02/16/21 Rx Insulin Glargine [Lantus] 55 unit SQ HS 02/16/21 02/16/21 History Simvastatin [Zocor] 20 mg PO HS 02/16/21 02/16/21 History lisinopriL [Zestril] 20 mg PO DAILY 02/16/21 02/16/21 History Allergies Allergy/AdvReac Type Severity Reaction Status Date / Time atorvastatin [From Lipitor] Allergy Swelling Verified 02/16/21 10:07 ibuprofen Allergy Swelling Verified 02/16/21 10:07 pregabalin [From Lyrica] Allergy Swelling Verified 02/16/21 10:07 Physical Exam Vitals: Vital Signs Temp Pulse Pulse Resp BP BP Pulse Ox 02/17/21 12:00 58 L 16 171/80 99 02/17/21 08:00 98.2 F 61 16 165/86 99 02/17/21 04:15 98.2 F 57 L 17 146/79 98 02/16/21 23:30 66 18 179/90 99 02/16/21 20:20 98.2 F 85 18 179/89 99 02/16/21 17:15 98.2 F 80 173/94 100 02/16/21 14:40 80 18 189/104 98 Intake and Output 02/16/21 02/17/21 02/17/21 22:59 06:59 14:59 Intake Total 600 780 Output Total 325 350 Balance 275 430 Intake: Oral 600 780 Output: Urine 325 350 Other: Voiding Method Toilet Toilet Urinal Urinal # Voids 1 # Bowel Movements 1 Weight 70 kg 72.6 kg Results 02/17/21 07:51 02/17/21 07:51 Cardiac Enzymes 02/17/21 Range/Units 07:51 AST 62 H (17-59) U/L CBC 02/17/21 Range/Units 07:51 WBC 7.5 (3.8-10.6) k/uL RBC 4.56 (4.30-5.90) m/uL Hgb 13.9 (13.0-17.5) gm/dL Hct 40.7 (39.0-53.0) % Plt Count 293 (150-450) k/uL Comprehensive Metabolic Panel 02/17/21 Range/Units 07:51 Sodium 135 L (137-145) mmol/L Potassium 4.3 (3.5-5.1) mmol/L Chloride 104 (98-107) mmol/L Carbon Dioxide 26 (22-30) mmol/L BUN 7 L (9-20) mg/dL Creatinine 0.72 (0.66-1.25) mg/dL Glucose 260 H (74-99) mg/dL Calcium 9.1 (8.4-10.2) mg/dL AST 62 H (17-59) U/L ALT 39 (4-49) U/L Alkaline Phosphatase 61 (38-126) U/L Total Protein 6.0 L (6.3-8.2) g/dL Albumin 3.4 L (3.5-5.0) g/dL Current Medications Generic Name Dose Route Start Last Admin Trade Name Freq PRN Reason Stop Dose Admin Acetaminophen 650 mg 02/16/21 02:12 02/16/21 23:39 Acetaminophen Tab 325 Mg Tab PO 650 mg Q6HR PRN Administration Mild Pain or Fever > 100.5 Amlodipine Besylate 5 mg 02/16/21 21:00 02/17/21 08:12 Amlodipine 5 Mg Tab PO 5 mg BID DENNISE Administration Aspirin 81 mg 02/17/21 09:00 02/17/21 08:11 Aspirin 81 Mg PO 81 mg DAILY DENNISE Administration Clopidogrel Bisulfate 75 mg 02/17/21 09:00 02/17/21 08:12 Clopidogrel 75 Mg Tab PO 75 mg DAILY DENNISE Administration Duloxetine HCl 20 mg 02/17/21 09:00 02/17/21 08:12 Duloxetine Hcl 20 Mg Capsule.Dr PO 20 mg DAILY DENNISE Administration Insulin Aspart 10 unit 02/16/21 14:00 02/17/21 12:48 Insulin Aspart (Novolog) 100 Unit/Ml Vial SQ 10 unit AC-TID DENNISE Administration Insulin Aspart 0 unit 02/16/21 14:00 02/17/21 12:06 Insulin Aspart (Novolog) 100 Unit/Ml Vial SQ 02/23/21 14:01 Not Given [facility] Protocol Insulin Detemir 55 unit 02/16/21 21:00 02/16/21 20:23 Insulin Detemir (Levemir) 100 Unit/Ml Syr SQ 55 unit HS DENNISE Administration Levetiracetam 500 mg 02/16/21 21:00 02/17/21 08:12 Levetiracetam 500 Mg Tab PO 500 mg Q12HR DENNISE Administration Lisinopril 20 mg 02/17/21 21:00 Lisinopril 20 Mg Tab PO BID DENNISE Lorazepam 1 mg 02/16/21 02:12 Lorazepam 2 Mg/Ml Inj IV Q6HR PRN Anxiety Metformin HCl 500 mg 02/16/21 21:00 02/17/21 08:12 Metformin 500 Mg Tab PO 500 mg BID DENNISE Administration Naloxone HCl 0.2 mg 02/16/21 02:12 Naloxone 0.4 Mg/Ml 1 Ml Vial IV Q2M PRN Opioid Reversal Patient's Own ( 20 mg 02/16/21 21:00 02/16/21 20:44 Simvastatin 20 Mg PO Not Given Tab) HS DENNISE Intake and Output 02/16/21 02/17/21 02/17/21 22:59 06:59 14:59 Intake Total 600 780 Output Total 325 350 Balance 275 430 Intake: Oral 600 780 Output: Urine 325 350 Other: Voiding Method Toilet Toilet Urinal Urinal # Voids 1 # Bowel Movements 1 Weight 70 kg 72.6 kg 02/17/21 07:51 02/17/21 07:51
[2021-02-17 13:06] VITALS: BMI 28.3
--- NOTE | 2021-02-17 15:04 | P.PN ---
Subjective Progress Note Date: 02/17/21 Patient seen at bedside and he feels he is doing much better today compared to yesterday. No further seizure-like episode. Denies of any new neurological problems. Objective - Vital Signs Vital signs: Vital Signs Temp 98.2 F 02/17/21 08:00 Pulse 58 L 02/17/21 12:00 Resp 16 02/17/21 12:00 BP 171/80 02/17/21 12:00 Pulse Ox 99 02/17/21 12:00 Intake & Output 02/16/21 02/17/21 02/17/21 18:59 06:59 18:59 Intake Total 600 780 Output Total 1205 350 Balance -605 430 Weight 70 kg 72.6 kg 72.6 kg Intake: Oral 600 780 Output: Urine 1205 350 Other: Voiding Method Toilet Urinal # Voids 1 # Bowel Movements 1 - Exam GENERAL: The patient is lying in bed and is not in acute distress. INTEGUMENTARY: Has old scar from surgery over the left lower extremity/calf region. NEUROLOGICAL: Higher mental function: The patient is awake, alert, oriented to self, place and time. Patient is following commands. No aphasia and no neglect. Cranial nerves: The pupils are round, equal and reactive to light and accommodation. Visual zapien are full to confrontation throughout. Extraocular movement is intact no nystagmus is noted. Facial sensation is normal to touch throughout. The facial strength is normal throughout. Hearing is normal bilaterally to hand rub. Tongue is midline and moved [id number] without any difficulty. No dysarthria is noted. Shoulder shrug is normal bilaterally. Motor: Gait is deferred. The strength is 5 over 5 throughout. Normal tone and bulk. Cerebellum: Normal finger to nose heel to chin bilaterally. Sensation: Sensation is normal to touch throughout. Reflexes (right/left): 2+ throughout. Plantars is mute over the right while left he has left toe amputation. - Labs CBC & Chem 7: 02/17/21 07:51 02/17/21 07:51 Labs: Abnormal Lab Results - Last 24 Hours (Table) 02/16/21 02/16/21 02/16/21 Range/Units 00:24 15:23 16:39 Sodium (137-145) mmol/L BUN (9-20) mg/dL Glucose (74-99) mg/dL POC Glucose (mg/dL) 393 H 205 H (75-99) mg/dL Hemoglobin A1c 13.1 H (4.0-6.0) % AST (17-59) U/L Total Protein (6.3-8.2) g/dL Albumin (3.5-5.0) g/dL 02/16/21 02/17/21 02/17/21 Range/Units 20:16 06:09 07:51 Sodium 135 L (137-145) mmol/L BUN 7 L (9-20) mg/dL Glucose 260 H (74-99) mg/dL POC Glucose (mg/dL) 168 H 286 H (75-99) mg/dL Hemoglobin A1c (4.0-6.0) % AST 62 H (17-59) U/L Total Protein 6.0 L (6.3-8.2) g/dL Albumin 3.4 L (3.5-5.0) g/dL 02/17/21 Range/Units 11:38 Sodium (137-145) mmol/L BUN (9-20) mg/dL Glucose (74-99) mg/dL POC Glucose (mg/dL) 71 L (75-99) mg/dL Hemoglobin A1c (4.0-6.0) % AST (17-59) U/L Total Protein (6.3-8.2) g/dL Albumin (3.5-5.0) g/dL Assessment and Plan Assessment: * New onset seizure (focal motor seizure without loss of consciousness. Presenting with right facial/eye droop with jerking of the right upper extremity). Upon reviewing the CT of the head I felt there is possibly Mass over the left anterior horn of lateral ventricle. * Diabetic ketoacidosis * Polysubstance use (Positive for cocaine and marijuana use) * Uncontrolled hypertension * Elevated troponin * Peripheral artery disease status post vein stripping with graft and toe amputation (02/2020) * Hyperlipidemia * History of Myocardial infarction * Atrial fibrillation * History DVT of lower extremity Plan: * CT of the head is reported as no acute intracranial abnormality. I personally reviewed the CT head and I felt there is suspicious of growth over the left lateral horn ventricle and felt compressing on it. * MRI of the brain with and without to rule out mass is pending * Routine EEG is ordered by the ED team and is pending. * Continue Keppra 500mg 1 tab bid (denies of any behavioral issues as baseline and was notified that the medication can affect mood/behavioral issues). * Continue seizure precaution and fall precaution * Patient was counseled on avoiding on any further illicit drug use. * Cardiology is consulted for elevated troponin. * We'll defer the rest of medical management to the primary team. Dr. Dumas will take over Neurology coverage tomorrow AM. Grover Martines M.D. Neuro-hospitalist Time with Patient: Less than 30
[2021-02-17 16:26] LABS: Glucose,Whole Blood 130 mg/dL (75-99)
[2021-02-17] MEDS: carvediloL 3.125 MG TAB PO SCH (17:19)
[2021-02-17 18:26] VITALS: RESP 18
--- NOTE | 2021-02-17 18:42 | P.PN ---
Subjective Progress Note Date: 02/17/21 Principal diagnosis: New-onset seizures Hyperglycemia without acidosis Accelerated hypertension Polysubstance abuse 55-year-old man who presents to be evaluated for what he was concerned may be a stroke. He states that about 4 days ago he started having spasms of his right arm that were coming on multiple times a day. He states that his right hand and arm would flex and tighten up, lasting minutes at a time. The patient states that around that time he also had run out of his diabetic medications. CT of the head is reported as no acute intracranial abnormality. 02/17/2021 Patient is seen and evaluated in room at bedside; reports feeling much improved since yesterday; reports noncompliance with medications due to financial reasons Vital signs are stable with a temperature of 98.2, pulse 58, respiration 18 and blood pressure 171/80 Lab review shows sodium 135, potassium 4.3, BUN of 7 creatinine 0.7 and glucose of 260 Patient remains on Keppra 500 mg twice a day; neurology on board and MRI of the brain and EEG is ordered and pending Patient currently takes amlodipine, atenolol and lisinopril for hypertension; patient has been evaluated by cardiology and is recommended to decrease lisinopril up to 20 mg twice a day; atenolol is to be switched to Coreg; we will continue to monitor blood pressure closely. Further recommendations accordingly Objective - Vital Signs Vital signs: Vital Signs Temp 98.2 F 02/17/21 08:00 Pulse 58 L 02/17/21 12:00 Resp 16 02/17/21 12:00 BP 171/80 02/17/21 12:00 Pulse Ox 99 02/17/21 12:00 Intake & Output 02/16/21 02/17/21 02/17/21 18:59 06:59 18:59 Intake Total 600 780 Output Total 1205 350 Balance -605 430 Weight 70 kg 72.6 kg 72.6 kg Intake: Oral 600 780 Output: Urine 1205 350 Other: Voiding Method Toilet Urinal # Voids 1 # Bowel Movements 1 - Exam Head exam: Present: atraumatic, normocephalic Eye exam: Present: normal appearance, PERRL, EOMI. Absent: scleral icterus, conjunctival injection, nystagmus ENT exam: Present: mucous membranes dry Neck exam: Present: normal inspection, full ROM. Absent: tenderness, meningismus Respiratory exam: Present: normal lung sounds bilaterally. Absent: respiratory distress, wheezes, rales, rhonchi, stridor Cardiovascular Exam: Present: regular rate, normal rhythm, normal heart sounds. Absent: systolic murmur, diastolic murmur, rubs, gallop GI/Abdominal exam: Present: soft. Absent: distended, tenderness, guarding, rebound, rigid, mass Extremities exam: Present: normal inspection, normal capillary refill. Absent: pedal edema, calf tenderness Back exam: Present: normal inspection. Absent: CVA tenderness (R), CVA tenderness (L) Neurological exam: Present: alert, oriented X3, CN II-XII intact. Absent: motor sensory deficit Skin exam: Present: warm, dry, intact, normal color. Absent: rash - Labs CBC & Chem 7: 02/17/21 07:51 02/17/21 07:51 Labs: Abnormal Lab Results - Last 24 Hours (Table) 02/16/21 02/16/21 02/16/21 Range/Units 00:24 15:23 16:39 Sodium (137-145) mmol/L BUN (9-20) mg/dL Glucose (74-99) mg/dL POC Glucose (mg/dL) 393 H 205 H (75-99) mg/dL Hemoglobin A1c 13.1 H (4.0-6.0) % AST (17-59) U/L Total Protein (6.3-8.2) g/dL Albumin (3.5-5.0) g/dL 02/16/21 02/17/21 02/17/21 Range/Units 20:16 06:09 07:51 Sodium 135 L (137-145) mmol/L BUN 7 L (9-20) mg/dL Glucose 260 H (74-99) mg/dL POC Glucose (mg/dL) 168 H 286 H (75-99) mg/dL Hemoglobin A1c (4.0-6.0) % AST 62 H (17-59) U/L Total Protein 6.0 L (6.3-8.2) g/dL Albumin 3.4 L (3.5-5.0) g/dL 02/17/21 Range/Units 11:38 Sodium (137-145) mmol/L BUN (9-20) mg/dL Glucose (74-99) mg/dL POC Glucose (mg/dL) 71 L (75-99) mg/dL Hemoglobin A1c (4.0-6.0) % AST (17-59) U/L Total Protein (6.3-8.2) g/dL Albumin (3.5-5.0) g/dL Assessment and Plan Assessment: 1. New onset seizures - Neurology on board and concerned about possibility of mass over left anterior horn of lateral ventricle; MRI of the brain is ordered to rule out mass - EEG is ordered but pending - Patient has been started on loading dose of Keppra at 1 g followed by Keppra 500 mg twice a day - Fall and seizure precautions in place - Patient can have when necessary Ativan for breakthrough seizures 2. Hyperglycemia without acidosis; noncompliance with medication - Patient does have history of diabetes mellitus 2, with long-term insulin use; patient reports he's been out of diabetic medication for past 4 days - We will resume home oral hypoglycemic therapy and monitor Accu-Cheks every before meals and at bedtime with insulin sliding scale - Continue with home dose of Lantus at 42 units subcu daily at bedtime 3. Accelerated hypertension - Blood pressure was 207/98 upon presenting to ED; patient is currently taking amlodipine, atenolol, hydralazine and lisinopril - We will restart home antihypertensive therapy with parameters; monitor blood pressure closely and adjust meds as needed 4. 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 Elevated troponin; rule out acute coronary syndrome; monitor EKG and trend troponin; order 2-D echo; consult cardiology for further recommendations 6. Peripheral vascular occlusive disease; patient is status post vein stripping with graft and toe amputation in 2020; continue with current dose of aspirin and Plavix 7. Hyperlipidemia; currently not on any statin therapy 8. Atrial fibrillation; remains rate controlled on atenolol; currently not on anticoagulation therapy DVT prophylaxis; SCDs/early ambulation CODE STATUS; full code
[2021-02-17 20:25] LABS: Glucose,Whole Blood 203 mg/dL (75-99)
[2021-02-17] MEDS: SIMVASTATIN 20 MG PO SCH (20:46)
[2021-02-17] MEDS: lisinopriL 20 MG TAB PO SCH (20:52)
[2021-02-17] MEDS: INSULIN DETEMIR (LEVEMIR) 100 UNIT/ML SYR SQ SCH (20:53)
[2021-02-18 06:58] LABS: Glucose,Whole Blood 86 mg/dL (75-99)
[2021-02-18] MEDS: INSULIN ASPART (NovoLOG) 100 UNIT/ML VIAL SQ SCH ×7 (07:07→20:22)
[2021-02-18] MEDS: carvediloL 3.125 MG TAB PO SCH ×2 (07:22→17:20)
[2021-02-18] MEDS: amLODIPine 5 MG TAB PO SCH ×2 (08:45→20:22)
[2021-02-18] MEDS: CLOPIDOGREL 75 MG TAB PO SCH (08:45)
[2021-02-18] MEDS: levETIRAcetam 500 MG TAB PO SCH ×2 (08:45→20:22)
[2021-02-18] MEDS: ASPIRIN 81 MG PO SCH (08:45)
[2021-02-18] MEDS: DULoxetine HCL 20 MG CAPSULE.DR PO SCH (08:45)
[2021-02-18] MEDS: lisinopriL 20 MG TAB PO SCH ×2 (08:46→20:22)
[2021-02-18] MEDS: metFORMIN 500 MG TAB PO SCH ×2 (08:46→20:22)
[2021-02-18 09:32] LABS: African American GFR (CKD) >90 (>60 ml/min/1.73 sqM); Anion Gap 4 mmol/L; Blood Urea Nitrogen 7 mg/dL (9-20); Calcium 9.4 mg/dL (8.4-10.2); Carbon Dioxide 34 mmol/L (22-30); Chloride 98 mmol/L (98-107); Glucose 194 mg/dL (74-99); Non-African American GFR(CKD) >90 (>60 ml/min/1.73 sqM); Potassium 4.3 mmol/L (3.5-5.1); Sodium 136 mmol/L (137-145)
[2021-02-18 11:42] LABS: Glucose,Whole Blood 280 mg/dL (75-99)
--- NOTE | 2021-02-18 11:47 | P.PN ---
Subjective Principal diagnosis: Patient is resting comfortably in bed. He has no more headache no chest discomfort no dizziness lightheadedness or palpitations Blood pressure still elevated 173/79, 127-1706-92 mmHg afebrile Pulse rate in the 60s Breath sounds are reduced bilaterally Heart sounds S1 and S2 normal soft Impression Uncontrolled diabetes Uncontrolled hypertension Cocaine and drug use Patient ran out of his medications Peripheral vascular disease with a toe amputation Labs are reviewed Sodium 136, potassium 4.3, BUN 7 and creatinine 0.77 Suggest Continue amlodipine 5 mg twice daily Continue aspirin and Plavix Continue carvedilol 3.125 mg twice daily Continue lisinopril 20 mg twice daily Continue simvastatin 20 mg by mouth daily If his blood pressure is still not controlled in the future then consideration for valsartan instead of lisinopril and addition of diuretics Objective - Vital Signs Vital signs: Vital Signs Temp 98.4 F 02/18/21 08:00 Pulse 68 02/18/21 08:00 Resp 18 02/18/21 08:00 BP 162/92 02/18/21 08:00 Pulse Ox 99 02/18/21 08:00 Intake & Output 02/17/21 02/18/21 02/18/21 18:59 06:59 18:59 Intake Total 1140 540 Output Total 650 400 Balance 490 140 Weight 72.6 kg 71.2 kg Intake: Oral 1140 540 Output: Urine 650 400 Other: Voiding Method Toilet Urinal # Voids 2 # Bowel Movements 2 1 - Labs CBC & Chem 7: 02/17/21 07:51 02/18/21 08:00 Labs: Abnormal Lab Results - Last 24 Hours (Table) 02/17/21 02/17/21 02/18/21 Range/Units 16:25 20:10 08:00 Sodium 136 L (137-145) mmol/L Carbon Dioxide 34 H (22-30) mmol/L BUN 7 L (9-20) mg/dL Glucose 194 H (74-99) mg/dL POC Glucose (mg/dL) 130 H 203 H (75-99) mg/dL 02/18/21 Range/Units 11:41 Sodium (137-145) mmol/L Carbon Dioxide (22-30) mmol/L BUN (9-20) mg/dL Glucose (74-99) mg/dL POC Glucose (mg/dL) 280 H (75-99) mg/dL
--- NOTE | 2021-02-18 11:59 | P.PN ---
Subjective Principal diagnosis: New-onset seizures Hyperglycemia without acidosis Accelerated hypertension Polysubstance abuse 55-year-old man who presents to be evaluated for what he was concerned may be a stroke. He states that about 4 days ago he started having spasms of his right arm that were coming on multiple times a day. He states that his right hand and arm would flex and tighten up, lasting minutes at a time. The patient states that around that time he also had run out of his diabetic medications. CT of the head is reported as no acute intracranial abnormality. 02/17/2021 Patient is seen and evaluated in room at bedside; reports feeling much improved since yesterday; reports noncompliance with medications due to financial reasons Vital signs are stable with a temperature of 98.2, pulse 58, respiration 18 and blood pressure 171/80 Lab review shows sodium 135, potassium 4.3, BUN of 7 creatinine 0.7 and glucose of 260 Patient remains on Keppra 500 mg twice a day; neurology on board and MRI of the brain and EEG is ordered and pending Patient currently takes amlodipine, atenolol and lisinopril for hypertension; patient has been evaluated by cardiology and is recommended to decrease lisinopril up to 20 mg twice a day; atenolol is to be switched to Coreg; we will continue to monitor blood pressure closely. Further recommendations accordingly Subjective: 02/18/2021 This is a pleasant 55 -[place] male with past medical history of diabetes mellitus on insulin presents because of hypertensive urgency of with 4 day history of right arm twitching and tightening up thought secondary to seizure and started on Keppra by neurologist with EEG still pending. Kitchen Lead evaluated the patient and start him on Coreg as well as lisinopril 20 mg twice daily and Norvasc 5 mg twice daily, currently his blood pressure is better controlled. Patient also was noncompliant with his medication as he was not taken as his insulin because he ran out of it. His sugar was significantly elevated upon admission at 651, his glucose this morning is ranging between 86-to 280. His currently on metformin 500 mg, Levemir 55 units at bedtime and 10 units with meals Kitchen Lead also evaluated the patient for elevated troponin and they recommended to continue with conservative management and control blood pressure is blood pressure this morning is 162/92, and heart rate is 68 We'll keep monitoring and adjust medication accordingly. Objective - Vital Signs Vital signs: Vital Signs Temp 98.4 F 02/18/21 08:00 Pulse 68 02/18/21 08:00 Resp 18 02/18/21 08:00 BP 162/92 02/18/21 08:00 Pulse Ox 99 02/18/21 08:00 Intake & Output 02/17/21 02/18/21 02/18/21 18:59 06:59 18:59 Intake Total 1140 540 Output Total 650 400 Balance 490 140 Weight 72.6 kg 71.2 kg Intake: Oral 1140 540 Output: Urine 650 400 Other: Voiding Method Toilet Urinal # Voids 2 # Bowel Movements 2 1 - Exam GENERAL: The patient is alert and oriented x3, not in any acute distress. Well developed, well nourished. HEENT: Pupils are round and equally reacting to light. EOMI. No scleral icterus. No conjunctival pallor. Normocephalic, atraumatic. No pharyngeal erythema. No thyromegaly. CARDIOVASCULAR: S1 and S2 present. No murmurs, rubs, or gallops. PULMONARY: Chest is clear to auscultation, no wheezing or crackles. ABDOMEN: Soft, nontender, nondistended, normoactive bowel sounds. No palpable organomegaly. MUSCULOSKELETAL: No joint swelling or deformity. EXTREMITIES: No cyanosis, clubbing, or pedal edema. NEUROLOGICAL: Gross neurological examination did not reveal any focal deficits. SKIN: No rashes. no petechiae. - Labs CBC & Chem 7: 02/17/21 07:51 02/18/21 08:00 Labs: Abnormal Lab Results - Last 24 Hours (Table) 02/17/21 02/17/21 02/18/21 Range/Units 16:25 20:10 08:00 Sodium 136 L (137-145) mmol/L Carbon Dioxide 34 H (22-30) mmol/L BUN 7 L (9-20) mg/dL Glucose 194 H (74-99) mg/dL POC Glucose (mg/dL) 130 H 203 H (75-99) mg/dL 02/18/21 Range/Units 11:41 Sodium (137-145) mmol/L Carbon Dioxide (22-30) mmol/L BUN (9-20) mg/dL Glucose (74-99) mg/dL POC Glucose (mg/dL) 280 H (75-99) mg/dL Assessment and Plan Assessment: 1. New onset seizures - Neurology on board and they recommended MRI of the brain which is ordered but pending on hold for possible stent. - EEG is ordered but pending - Patient has been started on Keppra 500 mg twice a day 2. Hyperglycemia without acidosis; noncompliance with medication - Patient does have history of diabetes mellitus 2, with long-term insulin use; patient reports he's been out of diabetic medication for past 4 days - We will resume home oral hypoglycemic therapy and monitor Accu-Cheks every before meals and at bedtime with insulin sliding scale - Continue with Levemir 55 units at bedtime and NovoLog 10 units with meals as well as metformin 500 mg -electronic equipment trades worker consult 3. Accelerated hypertension - Blood pressure was 207/98 upon presenting to ED; patient is currently taking amlodipine, atenolol, hydralazine and lisinopril - We will restart home antihypertensive therapy with parameters; monitor blood pressure closely and adjust meds as needed 4. Polysubstance abuse; urine drug screen is positive for cocaine and marijuana; counseling done to patient to abstain from in the urine drug use; consult CAT SWAMPER 5. Elevated troponin; rule out acute coronary syndrome; monitor EKG and trend troponin; order 2-D echo; consult cardiology for further recommendations 6. history of Peripheral vascular occlusive disease; patient is status post vein stripping with graft and toe amputation in 2020; continue with current dose of aspirin and Plavix 7. Hyperlipidemia; currently not on any statin therapy 8. Atrial fibrillation; remains rate controlled on atenolol; currently not on anticoagulation therapyper cardiology on the case DVT prophylaxis; SCDs/early ambulation CODE STATUS; full code
[2021-02-18 16:55] LABS: Glucose,Whole Blood 218 mg/dL (75-99)
[2021-02-18] MEDS: SIMVASTATIN 20 MG PO SCH (20:20)
[2021-02-18] MEDS: INSULIN DETEMIR (LEVEMIR) 100 UNIT/ML SYR SQ SCH (20:23)
[2021-02-18 20:24] LABS: Glucose,Whole Blood 270 mg/dL (75-99)
[2021-02-19] MEDS: DOXAZOSIN 4 MG TAB PO SCH ×2 (07:00→08:57)
[2021-02-19] MEDS: carvediloL 3.125 MG TAB PO SCH ×2 (07:00→17:15)
[2021-02-19] MEDS: GLIMEPIRIDE 2 MG TAB PO SCH (07:01)
[2021-02-19 07:10] LABS: Glucose,Whole Blood 186 mg/dL (75-99)
[2021-02-19] MEDS: INSULIN ASPART (NovoLOG) 100 UNIT/ML VIAL SQ SCH ×7 (07:10→20:21)
[2021-02-19] MEDS: ASPIRIN 81 MG PO SCH (08:55)
[2021-02-19] MEDS: hydroCHLOROthiazide 25 MG TAB PO SCH (08:55)
[2021-02-19] MEDS: levETIRAcetam 500 MG TAB PO SCH ×2 (08:55→20:20)
[2021-02-19] MEDS: lisinopriL 20 MG TAB PO SCH ×2 (08:55→20:20)
[2021-02-19] MEDS: DULoxetine HCL 20 MG CAPSULE.DR PO SCH (08:55)
[2021-02-19] MEDS: metFORMIN 500 MG TAB PO SCH ×2 (08:55→20:20)
[2021-02-19] MEDS: CLOPIDOGREL 75 MG TAB PO SCH (08:55)
[2021-02-19] MEDS: amLODIPine 5 MG TAB PO SCH ×2 (08:56→20:20)
--- NOTE | 2021-02-19 09:34 | CDI ---
Documentation Clarification Form Date: 02/19/2021 09:21:35 AM From: Estela GonzalezSHILPI bernard, CCDS Admit Date: 02/16/2021 02:12:00 AM Patient Name: Benny Ladd Visit Number: [id number] Discharge Date: ATTENTION: The Clinical Documentation Specialists (CDI) and [facility] Coding Staff appreciate your assistance in clarifying documentation. Please respond to the clarification below the line at the bottom and electronically sign. The CDI & [facility] Coding staff will review the response and follow-up if needed. Please note: Queries are made part of the Legal Health Record. If you have any questions, please contact the author of this message via ITS. Dr. Jamel Euceda: Atrial Fibrillation is documented in the 02/16 History & Physical: "Atrial fibrillation; remains rate controlled on atenolol; currently not on anticoagulation therapy." Also documented in the 02/17 Cardiology Consult: "The note states the patient has had a history of atrial fibrillation and DVT in the lower extremity. Additional clarification regarding the type of atrial fibrillation is requested. History/Risk Factors per the 02/16 History & Physical: Atrial Fibrillation, DM, DVT Left Lower Extremity, Hypertension, Hyperlipidemia, CO, Former smoker. Clinical Indicators: Presented to the ED on 02/16 complaining of a Headache & spasms in his right arm, also ran out of his Diabetes medication. ED Clinical Impression: Hyperglycemia and Hyponatremia 02/15 VS: T 98.2, P 95 - 77, R 18, BP 207/98 - 188/114; PO 97 - 100 RA 02/16 LAB: Na 126, Cl 90, Glucose 651, Troponin 0.050, (02/16): 0.045, 0.058. 02/16 Drug Screen: Positive Cocaine & Marijuana 02/16 EKG: R 78 nsr, Old infarct. Treatment 02/15: IV fluid 1,000 mls @ 999 mls/hr q1H. 02/16: IV Insulin 8 units x1, IV fluid 1,000 mls @ 999 mls/hr q1H, IV Ativan 2 mg x1, IV Ativan 1 mg q6Hr/prn, IV fluid 1,000 mls @ 150 mls/hr q6H, Insulin 8 units sq x1, IV fluid 1,000 mls @ 999 mls/hr q1H, IV Keppra x1, po Norvasc, po Tenormin. 02/17: po Aspirin, po Plavix. Home meds: Insulin sq, Norvasc, Plavix, Glucophage, Zocor, Zestril, Amaryl, Atenolol, Cymbalta, Aspirin 81 mg. Please clarify the type of atrial fibrillation, if known: [ ] Chronic [ ] Permanent [ ] Paroxysmal [ ] Persistent [ ] Other, please specify [ ] Unable to determine (Template Last Revised: January 2021) MTDD
[2021-02-19 11:46] LABS: Glucose,Whole Blood 85 mg/dL (75-99)
--- NOTE | 2021-02-19 13:53 | P.PN ---
Subjective This is a 55- year-old male with past medical history of hypertension, type 2 diabetes, dyslipidemia, peripheral artery disease, status post vein stripping with graft and toe amputation (02/2020), former nicotine dependence, marijuana use and cocaine use. He follows in the office with Dr. Negron. We are being consulted for elevated troponin. Patient presents to the emergency department for uncontrolled movement of the right arm, right facial droop, jerking of the right upper extremity that is uncontrolled. Patient found to have blood sugars in the 600s. He states he ran out of his medications at home and could not refill them due to financial reasons. Neurology was consulted- CT of the head is reported as no acute intracranial abnormality, suspicious of growth over the left lateral horn ventricle and felt compressing on it. Troponin 0.05, 0.04, 0.05 EKG sinus rhythm HR 78, No significant ST-T wave abnormalities, prior EKG are similar. 12/2018- Lexiscan stress test revealed fixed inferior wall defect with normal LV function and without any ischemia 12/2018 Echo- EF 50%, hypokinesis of the inferior wall at the base, mild concentric hypertrophy, mild mitral regurgitation, mild tricuspid regurgitation. 02/19/2021: Patient seen and examined at bedside, alert and oriented x 3. No complaints at this time. BP 121/65, heart rate 79, afebrile, maintaining oxygen saturations 98% on room air telemetry reviewed patient in sinus mechanism HR 60-80s. Currently being maintained on amlodipine 5 mg twice a day, aspirin 81 mg daily, carvedilol 3.125 mg twice a, Plavix 75 mg daily, lisinopril 20 mg twice a, and simvastatin 20 mg daily GENERAL: Well-appearing, well-nourished and in no acute distress. NECK: Supple without JVD or thyromegaly. LUNGS: Breath sounds clear to auscultation bilaterally. Respiration equal and unlabored. No wheezes, rales or rhonchi. HEART: Regular rate and rhythm without murmurs, rubs or gallops. S1 and S2 heard. EXTREMITIES: Normal range of motion, no edema. No clubbing or cyanosis. Peripheral pulses intact. ASSESSMENT: Right facial/eye droop with jerking of the right upper extremity Type 2 Diabetes, uncontrolled Hypertension, uncontrolled Polysubstance abuse- urine drug screen positive for cocaine and marijuana Elevated troponin- trend not indicative of acute coronary syndrome. No ischemic changes on EKG, patient without chest discomfort PLAN: Neurology following, plan for MRI Brain and EEG Will obtain 2D echocardiogram Start hydrochlorothiazide 25 mg daily Increase simvastatin to 40mg daily Continue carvedilol, plavix, aspirin, amlodipine and lisinopril Continue to monitor renal function and electrolytes Further recommendations based on clinical course Objective - Vital Signs Vital signs: Vital Signs Temp 98.1 F 02/19/21 08:00 Pulse 79 02/19/21 08:00 Resp 18 02/19/21 04:00 BP 124/65 02/19/21 08:00 Pulse Ox 98 02/19/21 08:00 Intake & Output 02/18/21 02/19/21 02/19/21 18:59 06:59 18:59 Intake Total 1320 10 240 Output Total 400 Balance 920 10 240 Weight 70.8 kg Intake: IV 10 Invasive Line 2 10 Oral 1320 240 Output: Urine 400 Other: Voiding Method Toilet Urinal # Voids 2 1 1 # Bowel Movements 1 - Labs CBC & Chem 7: 02/17/21 07:51 02/18/21 08:00 Labs: Abnormal Lab Results - Last 24 Hours (Table) 02/18/21 02/18/21 02/19/21 Range/Units 16:53 20:03 07:08 POC Glucose (mg/dL) 218 H 270 H 186 H (75-99) mg/dL
--- NOTE | 2021-02-19 15:27 | EEG ---
ELECTROENCEPHALOGRAM REPORT DATE OF SERVICE: 02/19/2021 PREAMBLE: This is a 55-year-old male with history of hypoglycemia, hyponatremia, has some seizure- like activity with tonic clonic activity involving right upper extremity. This study is performed to evaluate for any epileptiform activity. No previous history of seizures. EEG FINDINGS: This is a 21 channel routine EEG recording in a patient utilizing 10/20 international system with referential and bipolar montages. Background consists of well-developed, well regulated moderate voltage activity in the 8-9 hertz alpha. Background is posterior dominant and seems to be reactive to eye opening and closing. Photic driving response was not seen. The patient was drowsy during most of the study with some theta frequency rhythm. Stage 2 sleep was attained with presence of some sleep spindles and K complexes. No focal or generalized epileptiform activity was seen. EKG channel showed no arrhythmia. IMPRESSION: This is a normal EEG during wakefulness, drowsiness and stage 2 sleep. No epileptiform activity was seen. MMODL / IJN: [id number] /
--- NOTE | 2021-02-19 15:56 | P.PN ---
Subjective Progress Note Date: 02/19/21 Patient was seen for a follow-up. Patient initially seen by Dr. Grover Martines. Please refer to his note for details. Patient is a 55-year-old male, who presented with focal motor seizure involving right upper extremity. It lasted for 1-1/2 minute. He states his right eye was open at that time. He did not lose consciousness completely. Patient was started on Keppra. Since arrival to the hospital he has not had any seizures. He is doing well. Objective - Vital Signs Vital signs: Vital Signs Temp 98.1 F 02/19/21 08:00 Pulse 84 02/19/21 12:00 Resp 18 02/19/21 04:00 BP 107/74 02/19/21 12:00 Pulse Ox 100 02/19/21 12:00 Intake & Output 02/18/21 02/19/21 02/19/21 18:59 06:59 18:59 Intake Total 1320 10 720 Output Total 400 Balance 920 10 720 Weight 70.8 kg Intake: IV 10 Invasive Line 2 10 Oral 1320 720 Output: Urine 400 Other: Voiding Method Toilet Urinal # Voids 2 1 1 # Bowel Movements 1 - Exam Patient is a middle aged Afro-Iraqi male, in no distress. Patient is alert awake oriented to time place and person. Speech and language functions are normal. Attention, concentration and fund of knowledge is adequate. On cranial examination, pupils are round and reacting to light, visual zapien are full on confrontation, extraocular muscles are intact with no nystagmus. Face is symmetric, tongue protrudes to the midline. Palatal elevation and sensation normal, hearing and shoulder shrug normal, facial sensation normal. Shoulder shrug normal. On muscle strength testing, there is no pronator drift and the strength is normal in arms and legs distally and proximally. Deep tendon reflexes are 1+ and plantars downgoing. Sensory to touch is equal with no neglect. Cerebellar function showed no ataxia for [id number] testing. No dysdiadochokinesia. Tone and bulk of muscles normal. Gait normal. On general examination, there is no carotid bruit or murmur, S1-S2 audible. Abdomen is soft nontender. Chest is clear. Peripheral pulses are present. No edema. - Labs CBC & Chem 7: 02/17/21 07:51 02/18/21 08:00 Labs: Abnormal Lab Results - Last 24 Hours (Table) 02/18/21 02/18/21 02/19/21 Range/Units 16:53 20:03 07:08 POC Glucose (mg/dL) 218 H 270 H 186 H (75-99) mg/dL Assessment and Plan Assessment: * New onset seizure (focal motor seizure without loss of consciousness. Presenting with right facial/eye droop with jerking of the right upper extremity). Upon reviewing the CT of the head I felt there is possibly Mass over the left anterior horn of lateral ventricle (per Dr. Martines). In fact there is focal dilation of the frontal horn of left lateral ventricle, as compared to computed tomography scan of head from 09/11/2015. The ventricles has in general become slightly more prominent, but predominantly the left frontal horn. * Diabetic ketoacidosis * Polysubstance use (Positive for cocaine and marijuana use) * Uncontrolled hypertension * Elevated troponin * Peripheral artery disease status post vein stripping with graft and toe a mputation (02/2020) * Hyperlipidemia * History of Myocardial infarction * Atrial fibrillation Plan: * CT of the head is reported as no acute intracranial abnormality. I personally reviewed the CT head and I felt there is suspicious of growth over the left lateral horn ventricle and felt compressing on it. * Agree to check an MRI of the brain with and without to rule out mass. Patient has a cardiac stent, unfortunately cannot get clearance for MRI. I would suggest patient follow-up with the neurologist as an outpatient to organize an MRI of the brain with and without contrast as outpatient. * EEG performed today was normal. No epileptiform activity was seen. * Continue Keppra 500mg 1 tab bid (denies of any behavioral issues as baseline and was notified that the medication can affect mood/behavioral issues). * Patient was counseled on avoiding on any further illicit drug use. * Patient was informed to avoid driving car for 6 months as per [place] state law, due to new onset focal seizure disorder. No climbing ladders, operating dangerous machinery or unsupervised swimming. Patient to follow up with neurologist as an outpatient. * Patient has atrial fibrillation, but currently not on anticoagulation. He is on aspirin, Plavix and Zocor. I would completely defer need for anticoagulation to internal medicine and cardiology.
[2021-02-19 17:00] LABS: Glucose,Whole Blood 106 mg/dL (75-99)
--- NOTE | 2021-02-19 17:57 | ECHOF ---
Referral Reason:elevated troponin MEASUREMENTS -------- HEIGHT: 160.0 cm WEIGHT: 70.8 kg BP: 183/95 IVSd: 1.5 cm (0.6 - 1.1) LVIDd: 2.4 cm (3.9 - 5.3) LVPWd: 1.6 cm (0.6 - 1.1) IVSs: 2.1 cm LVIDs: 1.4 cm LVPWs: 2.0 cm Ao Diam: 2.8 cm (2.0 - 3.7) AV Cusp: 1.8 cm (1.5 - 2.6) LA Diam: 2.9 cm (2.7 - 3.8) MV EXCURSION: 18.395 mm (> 18.000) MV EF SLOPE: 133 mm/s (70 - 150) EPSS: 0.7 cm MV E Edgar: 0.45 m/s MV DecT: 218 ms MV A Edgar: 0.77 m/s MV E/A Ratio: 0.58 RAP: 5.00 mmHg RVSP: 9.71 mmHg FINDINGS -------- This was a technically difficult study with suboptimal views. The left ventricular size is normal. There is moderate concentric left ventricular hypertrophy. O verall left ventricular systolic function is mildly impaired with, an EF between 45 - 50 %. Mid inf erior LV wall motion is hypokinetic. Mid Septal Hypokinesis The RV was not well visualized. The left atrial size is normal. The right atrial size is normal. xx ml of Lumason was utilized for enhancement of images. The aortic valve was not well visualized. The mitral valve is normal. There is trace mitral regurgitation. The tricuspid valve appears structurally normal. Trace tricuspid regurgitation present. Right natalie tricular systolic pressure is normal at < 35 mmHg. There is no pulmonic regurgitation present. The aortic root size is normal. Normal inferior vena cava with normal inspiratory collapse consistent with estimated right atrial pre ssure of 5 mmHg. There is no pericardial effusion. CONCLUSIONS -------- 1. The left ventricular size is normal. 2. There is moderate concentric left ventricular hypertrophy. 3. Overall left ventricular systolic function is mildly impaired with, an EF between 45 - 50 %. 4. Mid inferior LV wall motion is hypokinetic. 5. Mid Septal Hypokinesis 6. There is trace mitral regurgitation. 7. Trace tricuspid regurgitation present. 8. There is no pericardial effusion. HEALTH CENTER MANAGER: Sherley Cat RDCS
[2021-02-19 19:44] LABS: Glucose,Whole Blood 216 mg/dL (75-99)
[2021-02-19] MEDS ORDERED: INSULIN DETEMIR (LEVEMIR) 100 UNIT/ML SYR SQ SCH (21:00)
[2021-02-19] MEDS ORDERED: NON FORMULARY DRUG (Simvastatin 40 MG) PO SCH (21:00)
[2021-02-20 06:53] LABS: Glucose,Whole Blood 286 mg/dL (75-99)
[2021-02-20] MEDS: carvediloL 3.125 MG TAB PO SCH ×2 (07:05→17:33)
[2021-02-20] MEDS: GLIMEPIRIDE 2 MG TAB PO SCH (07:05)
[2021-02-20] MEDS: INSULIN ASPART (NovoLOG) 100 UNIT/ML VIAL SQ SCH ×6 (07:05→17:33)
[2021-02-20] MEDS: DOXAZOSIN 4 MG TAB PO SCH (08:48)
[2021-02-20] MEDS: ASPIRIN 81 MG PO SCH (08:48)
[2021-02-20] MEDS: amLODIPine 5 MG TAB PO SCH (08:48)
[2021-02-20] MEDS: metFORMIN 500 MG TAB PO SCH (08:48)
[2021-02-20] MEDS: lisinopriL 20 MG TAB PO SCH (08:48)
[2021-02-20] MEDS: CLOPIDOGREL 75 MG TAB PO SCH (08:48)
[2021-02-20] MEDS: hydroCHLOROthiazide 25 MG TAB PO SCH (08:48)
[2021-02-20] MEDS: levETIRAcetam 500 MG TAB PO SCH (08:50)
[2021-02-20] MEDS: DULoxetine HCL 20 MG CAPSULE.DR PO SCH (08:51)
[2021-02-20 10:40] LABS: African American GFR (CKD) >90 (>60 ml/min/1.73 sqM); Anion Gap 5 mmol/L; Blood Urea Nitrogen 15 mg/dL (9-20); Calcium 9.7 mg/dL (8.4-10.2); Carbon Dioxide 27 mmol/L (22-30); Chloride 102 mmol/L (98-107); Glucose 130 mg/dL (74-99); Non-African American GFR(CKD) 86 (>60 ml/min/1.73 sqM); Potassium 4.8 mmol/L (3.5-5.1); Sodium 134 mmol/L (137-145)
[2021-02-20 11:43] LABS: Glucose,Whole Blood 73 mg/dL (75-99)
--- NOTE | 2021-02-20 13:12 | P.PN ---
Subjective This is a 55- year-old male with past medical history of hypertension, type 2 diabetes, dyslipidemia, peripheral artery disease, status post vein stripping with graft and toe amputation (02/2020), former nicotine dependence, marijuana use and cocaine use. He follows in the office with Dr. Negron. We are being consulted for elevated troponin. Patient presents to the emergency department for uncontrolled movement of the right arm, right facial droop, jerking of the right upper extremity that is uncontrolled. Patient found to have blood sugars in the 600s. He states he ran out of his medications at home and could not refill them due to financial reasons. Neurology was consulted- CT of the head is reported as no acute intracranial abnormality, suspicious of growth over the left lateral horn ventricle and felt compressing on it. Troponin 0.05, 0.04, 0.05 EKG sinus rhythm HR 78, No significant ST-T wave abnormalities, prior EKG are similar. 12/2018- Lexiscan stress test revealed fixed inferior wall defect with normal LV function and without any ischemia 12/2018 Echo- EF 50%, hypokinesis of the inferior wall at the base, mild concentric hypertrophy, mild mitral regurgitation, mild tricuspid regurgitation. 02/19/2021: Echocardiogram- 45-50%, mid inferior LV wall motion is hypokinetic, mid septal hypokinesis, trace mitral regurgitation, trace tricuspid regurgitation 02/20/2021: Patient seen and examined at bedside, alert and oriented x 3. No complaints at this time. BP 133/74, heart rate 79, afebrile, maintaining oxygen saturations 100% on room air telemetry reviewed patient in sinus mechanism HR 60-80s. Currently being maintained on amlodipine 5 mg twice a day, aspirin 81 mg daily, carvedilol 3.125 mg twice a, Plavix 75 mg daily, lisinopril 20 mg twice a, and simvastatin 40 mg daily, hydrochlorothiazide 25 mg daily GENERAL: Well-appearing, well-nourished and in no acute distress. NECK: Supple without JVD or thyromegaly. LUNGS: Breath sounds clear to auscultation bilaterally. Respiration equal and unlabored. No wheezes, rales or rhonchi. HEART: Regular rate and rhythm without murmurs, rubs or gallops. S1 and S2 heard . EXTREMITIES: Normal range of motion, no edema. No clubbing or cyanosis. Peripheral pulses intact. ASSESSMENT: Right facial/eye droop with jerking of the right upper extremity Type 2 Diabetes, uncontrolled Hypertension, uncontrolled Polysubstance abuse- urine drug screen positive for cocaine and marijuana Elevated troponin- trend not indicative of acute coronary syndrome. No ischemic changes on EKG, patient without chest discomfort PLAN: Continue current medical therapy No further cardiac recommendations at this time. From cardiology perspective, patient is stable to be discharged home Patient to follow up with Dr. Negron at next scheduled appointment on 02/22/2021 Objective - Vital Signs Vital signs: Vital Signs Temp 98 F 02/20/21 08:05 Pulse 79 02/20/21 08:05 Resp 18 02/20/21 08:05 BP 133/74 02/20/21 08:05 Pulse Ox 100 02/20/21 08:05 Intake & Output 02/19/21 02/20/21 02/20/21 18:59 06:59 18:59 Intake Total 960 350 240 Balance 960 350 240 Weight 73.2 kg Intake: Oral 960 350 240 Other: Voiding Method Toilet Urinal # Voids 1 1 1 - Labs CBC & Chem 7: 02/17/21 07:51 02/20/21 09:34 Labs: Abnormal Lab Results - Last 24 Hours (Table) 02/19/21 02/19/21 02/20/21 Range/Units 16:58 19:42 06:50 Sodium (137-145) mmol/L Glucose (74-99) mg/dL POC Glucose (mg/dL) 106 H 216 H 286 H (75-99) mg/dL 02/20/21 02/20/21 Range/Units 09:34 11:41 Sodium 134 L (137-145) mmol/L Glucose 130 H (74-99) mg/dL POC Glucose (mg/dL) 73 L (75-99) mg/dL
[2021-02-20 14:10] VITALS: BP 134/72; PULSE 78; TEMP 98.2
[2021-02-20 17:30] LABS: Glucose,Whole Blood 116 mg/dL (75-99)
--- NOTE | 2021-02-20 20:50 | MR ---
EXAMINATION TYPE: MR brain wo/w con DATE OF EXAM: 02/20/2021 COMPARISON: HISTORY: Seizure CONTRAST: Standard multiplanar, multisequence MRI departmental protocol utilizing 7 mL intravenous Gadavist ruy olinium contrast. There is mild cerebral atrophy. There is no mass effect nor midline shift. There is no sign of intrac ranial hemorrhage. There is some enlargement of the frontal horn left lateral ventricle with old left internal capsule lacunar infarct. Lacunar infarct measures 13 x 10 mm. There is some patchy areas of abnormal increased signal on the T2 and FLAIR images at the bob-white matter junction of both cereb ral hemispheres. Total number is approximately 50 and these measure up to 9 mm. Cerebellum is intact. Diffusion images show no definite acute infarct. Corpus callosum appears intact . Sella turcica is intact. Contrast images show no pathologic enhancement. There is normal enhancement of the venous sinuses. Op tic chiasm appears normal. 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 Cerebral atrophy. Extensive chronic small vessel ischemia. No acute infarct seen.
--- NOTE | 2021-02-20 22:16 | P.PN ---
Subjective 55-year-old man who presents to be evaluated for what he was concerned may be a stroke. He states that about 4 days ago he started having spasms of his right arm that were coming on multiple times a day. He states that his right hand and arm would flex and tighten up, lasting minutes at a time. The patient states that around that time he also had run out of his diabetic medications. CT of the head is reported as no acute intracranial abnormality. 02/17/2021 Patient is seen and evaluated in room at bedside; reports feeling much improved since yesterday; reports noncompliance with medications due to financial reasons Vital signs are stable with a temperature of 98.2, pulse 58, respiration 18 and blood pressure 171/80 Lab review shows sodium 135, potassium 4.3, BUN of 7 creatinine 0.7 and glucose of 260 Patient remains on Keppra 500 mg twice a day; neurology on board and MRI of the brain and EEG is ordered and pending Patient currently takes amlodipine, atenolol and lisinopril for hypertension; patient has been evaluated by cardiology and is recommended to decrease lisinopril up to 20 mg twice a day; atenolol is to be switched to Coreg; we will continue to monitor blood pressure closely. Further recommendations accordingly Subjective: 02/18/2021 This is a pleasant 55 -[place] male with past medical history of diabetes mellitus on insulin presents because of hypertensive urgency of with 4 day history of right arm twitching and tightening up thought secondary to seizure and started on Keppra by neurologist with EEG still pending. Product Finisher evaluated the patient and start him on Coreg as well as lisinopril 20 mg twice daily and Norvasc 5 mg twice daily, currently his blood pressure is better controlled. Patient also was noncompliant with his medication as he was not taken as his insulin because he ran out of it. His sugar was significantly elevated upon admission at 651, his glucose this morning is ranging between 86-to 280. His currently on metformin 500 mg, Levemir 55 units at bedtime and 10 units with meals Product Finisher also evaluated the patient for elevated troponin and they recommended to continue with conservative management and control blood pressure is blood pressure this morning is 162/92, and heart rate is 68 We'll keep monitoring and adjust medication accordingly. 02/19/2021 Patient is a weak with no more episodes of spasm in his right upper extremity. He is hemodynamically stable. Patient is going for EEG today Continue with insulin, metformin and monitor glucose closely Objective - Vital Signs Vital signs: Vital Signs Temp 98.1 F 02/19/21 08:00 Pulse 79 02/19/21 08:00 Resp 18 02/19/21 04:00 BP 124/65 02/19/21 08:00 Pulse Ox 98 02/19/21 08:00 Intake & Output 02/18/21 02/19/21 02/19/21 18:59 06:59 18:59 Intake Total 1320 10 240 Output Total 400 Balance 920 10 240 Weight 70.8 kg Intake: IV 10 Invasive Line 2 10 Oral 1320 240 Output: Urine 400 Other: Voiding Method Toilet Urinal # Voids 2 1 1 # Bowel Movements 1 - Exam GENERAL: The patient is alert and oriented x3, not in any acute distress. Well developed, well nourished. HEENT: Pupils are round and equally reacting to light. EOMI. No scleral icterus. No conjunctival pallor. Normocephalic, atraumatic. No pharyngeal erythema. No thyromegaly. CARDIOVASCULAR: S1 and S2 present. No murmurs, rubs, or gallops. PULMONARY: Chest is clear to auscultation, no wheezing or crackles. ABDOMEN: Soft, nontender, nondistended, normoactive bowel sounds. No palpable organomegaly. MUSCULOSKELETAL: No joint swelling or deformity. EXTREMITIES: No cyanosis, clubbing, or pedal edema. NEUROLOGICAL: Gross neurological examination did not reveal any focal deficits. SKIN: No rashes. no petechiae. - Labs CBC & Chem 7: 02/17/21 07:51 02/20/21 09:34 Labs: Abnormal Lab Results - Last 24 Hours (Table) 02/18/21 02/18/21 02/18/21 Range/Units 11:41 16:53 20:03 POC Glucose (mg/dL) 280 H 218 H 270 H (75-99) mg/dL 02/19/21 Range/Units 07:08 POC Glucose (mg/dL) 186 H (75-99) mg/dL Assessment and Plan Assessment: 1. New onset seizures - Neurology on board and they recommended MRI of the brain which is ordered but pending on hold for possible stent. - EEG is ordered but pending - Patient has been started on Keppra 500 mg twice a day 2. Hyperglycemia without acidosis; noncompliance with medication - Patient does have history of diabetes mellitus 2, with long-term insulin use; patient reports he's been out of diabetic medication for past 4 days - We will resume home oral hypoglycemic therapy and monitor Accu-Cheks every before meals and at bedtime with insulin sliding scale - Continue with Levemir 55 units at bedtime and NovoLog 10 units with meals as well as metformin 500 mg -life skills worker consult 3. Accelerated hypertension - Blood pressure was 207/98 upon presenting to ED; patient is currently taking amlodipine, atenolol, hydralazine and lisinopril - We will restart home antihypertensive therapy with parameters; monitor blood pressure closely and adjust meds as needed 4. Polysubstance abuse; urine drug screen is positive for cocaine and marijuana; counseling done to patient to abstain from in the urine drug use; consult PENS AND PENCILS REPAIRER 5. Elevated troponin; rule out acute coronary syndrome; monitor EKG and trend troponin; order 2-D echo; consult cardiology for further recommendations 6. history of Peripheral vascular occlusive disease; patient is status post vein stripping with graft and toe amputation in 2020; continue with current dose of aspirin and Plavix 7. Hyperlipidemia; currently not on any statin therapy 8. Atrial fibrillation; remains rate controlled on atenolol; currently not on anticoagulation therapyper cardiology on the case DVT prophylaxis; SCDs/early ambulation CODE STATUS; full code
--- NOTE | 2021-02-20 22:24 | P.DS ---
Providers Date of admission: 02/16/21 02:12 Attending physician: Preston Zaidi MD Consults: 02/16/21 02:13 Consult Physician Routine Consulting Provider: Grover Martines Consult Reason/Comments: Possible focal seizure activity Do you want consulting provider notified?: Yes 02/16/21 02:31 Consult Physician Routine Consulting Provider: Abdulaziz Weber Consult Reason/Comments: elevated troponin Do you want consulting provider notified?: Yes Primary care physician: Demetrius Cisse Hospital Course: Diagnoses: 1. New onset seizures, focal with spasm of the right upper extremity and shakiness, with no loss of consciousness. Started on Keppra and cleared by neurologist for discharge 2. Hyperglycemia without acidosis; noncompliance with medication 3. Accelerated hypertension 4. Polysubstance abuse; urine drug screen is positive for cocaine and marijuana; counseling done to patient to abstain from in the urine drug use; consult AT RISK SPECIALIST 5. Elevated troponin; evaluated by titrator and cleared for discharge 6. history of Peripheral vascular occlusive disease; patient is status post vein stripping with graft and toe amputation in 2019 7. Hyperlipidemia 8. Atrial fibrillation. No anticoagulation. [facility] [employer] [facility] on the case Hospital course: 55-year-old man who presents to be evaluated for what he was concerned may be a stroke. He states that about 4 days ago he started having spasms of his right arm that were coming on multiple times a day. He states that his right hand and arm would flex and tighten up, lasting minutes at a time. Neurologist evaluated the patient and he was started on Keppra; (focal motor seizure without loss of consciousnes). Echocardiogram showed ejection fraction of 45-50% with mid inferior left ventricular wall hypokinesia. MRI of the plate could not be done because patient has a stent and then formation for the stent could not be obtained whether it is compatible are not with MRI. Because of these neurologist. The patient for discharge with recommendation for outpatient follow-up, patient informed and he agrees with this recommendation. Patient also on his medication for about 60, came with hyperglycemia, uncontrolled diabetes with hemoglobin A1c up to 13%. Patient told me he got money now and he is going to refill his medication and will not lift this happen to him again. Risk of uncontrolled diabetes are explained to him extensively. The top of that patient was using cocaine and he was advised extensively irrigated using cocaine with risks including but not limited to stroke, heart attack, and/or are explained to him and he verbalized understanding and acceptance. [facility] [employer] evaluated the patient for high troponin and atrial fibrillation and recommended to continue with aspirin and Plavix. Patient was cleared for discharge by neurologist and titrator Problems and management plan were discussed with the patient and he verbalized understanding and acceptance Patient was found stable and can be discharged home however he needs follow-up as an outpatient. Patient was instructed to follow up with PCP Dr. Sharma within one week and patient agrees Patient agrees with the appointments made for him with Dr. Negron on the day after tomorrow on 02/22 and he agrees to follow-up. Dictated to follow-up with the neurologist in 1-2 weeks and units are suggested for him lactic Dr. Rollins, Dr. Carrion and Dr. Lucas. Patient verbalized understanding and he states he will call and make appointments Physical exam Gen: patient is a AAOx3, no distress CVS: S1-S2, RRR, no murmur Lungs: B/L CTA, no wheezing Abdomen: soft, no distention, no tenderness, positive bowel sounds Extremity: no leg edema or induration Time spent more than 35 minutes Plan - Discharge Summary New Discharge Prescriptions: New Doxazosin [Cardura] 4 mg PO DAILY #30 tab carvediloL [Coreg] 3.125 mg PO BID-W/MEALS #60 tab Acetaminophen Tab [Tylenol] 650 mg PO Q6HR PRN tab PRN Reason: Mild Pain Or Fever > 100.5 hydroCHLOROthiazide [Hydrodiuril] 25 mg PO DAILY #30 tab levETIRAcetam [Keppra] 500 mg PO Q12HR #60 tab lisinopriL [Prinivil] 20 mg PO BID #60 tablet Continue Glimepiride [Amaryl] 2 mg PO DAILY #30 tab Aspirin 81 mg PO DAILY #30 chew DULoxetine HCL [Cymbalta] 20 mg PO DAILY 30 Days #30 capsule. metFORMIN HCL [Glucophage] 500 mg PO BID #60 tab amLODIPine [Norvasc] 10 mg PO DAILY #30 tab INSULIN ASPART (NovoLOG) [NovoLOG (formulary)] 10 unit SQ AC-TID #1 vial Clopidogrel [Plavix] 75 mg PO DAILY #30 tab Simvastatin [Zocor] 20 mg PO HS #30 tab Changed Insulin Glargine [Lantus] 55 unit SQ HS #1 vial Discontinued atenoloL [Atenolol] 25 mg PO BID lisinopriL [Zestril] 20 mg PO DAILY Discharge Medication List Acetaminophen Tab [Tylenol] 650 mg PO Q6HR PRN tab 02/20/21 [Rx] Aspirin 81 mg PO DAILY #30 chew 02/20/21 [Rx] Clopidogrel [Plavix] 75 mg PO DAILY #30 tab 02/20/21 [Rx] DULoxetine HCL [Cymbalta] 20 mg PO DAILY 30 Days #30 capsule. 02/20/21 [Rx] Doxazosin [Cardura] 4 mg PO DAILY #30 tab 02/20/21 [Rx] Glimepiride [Amaryl] 2 mg PO DAILY #30 tab 02/20/21 [Rx] INSULIN ASPART (NovoLOG) [NovoLOG (formulary)] 10 unit SQ AC-TID #1 vial 02/20/21 [Rx] Insulin Glargine [Lantus] 55 unit SQ HS #1 vial 02/20/21 [Rx] Simvastatin [Zocor] 20 mg PO HS #30 tab 02/20/21 [Rx] amLODIPine [Norvasc] 10 mg PO DAILY #30 tab 02/20/21 [Rx] carvediloL [Coreg] 3.125 mg PO BID-W/MEALS #60 tab 02/20/21 [Rx] hydroCHLOROthiazide [Hydrodiuril] 25 mg PO DAILY #30 tab 02/20/21 [Rx] levETIRAcetam [Keppra] 500 mg PO Q12HR #60 tab 02/20/21 [Rx] lisinopriL [Prinivil] 20 mg PO BID #60 tablet 02/20/21 [Rx] metFORMIN HCL [Glucophage] 500 mg PO BID #60 tab 02/20/21 [Rx] Follow up Appointment(s)/Referral(s): Betito Romo MD [Primary Care Provider] - 1-2 days Sara Lucas MD [REFERRING] - 1 Week (Neurologist ) Peter Rollins MD [Medical Doctor] - 2 Weeks (neurologist ) Brent Carrion DO [STAFF PHYSICIAN] - 2 Weeks (neurologist ) Donato Negron MD [STAFF PHYSICIAN] - 02/22/21 8:15 am (cardiology) Patient Instructions/Handouts: Seizure/Epilepsy Discharge Instructions & Follow-Up, A-fib (Atrial Fibrillation) (DC), Hyponatremia (ED), Managing Diabetes During Sick Days (ED), Diabetic Hyperglycemia (DC), Hemoglobin A1c (GEN), Diabetes and Nutrition (DC), Diabetes and Exercise (ED) Activity/Diet/Wound Care/Special Instructions: Heart healthy diet/ consistent carb diet Activity is restricted to you see your doctor Discharge Disposition: HOME SELF-CARE
--- NOTE | 2021-02-21 11:15 | P.PN ---
Subjective Progress Note Date: 02/20/21 02/20/2021: Patient is walking around, with no issues. Denies headache, denies any focal symptoms. No further seizures reported. 02/19/2021: Patient was seen for a follow-up. Patient initially seen by Dr. Grover Martines. Please refer to his note for details. Patient is a 55-year-old male, who presented with focal motor seizure involving right upper extremity. It lasted for 1-1/2 minute. He states his right eye was open at that time. He did not lose consciousness completely. Patient was started on Keppra. Since arrival to the hospital he has not had any seizures. He is doing well. Objective - Vital Signs Vital signs: Vital Signs Temp 98.2 F 02/20/21 12:00 Pulse 78 02/20/21 12:00 Resp 18 02/20/21 12:00 BP 134/72 02/20/21 12:00 Pulse Ox 100 02/20/21 12:00 Intake & Output 02/20/21 02/21/21 02/21/21 18:59 06:59 18:59 Intake Total 690 Balance 690 Intake: IV 10 Invasive Line 3 10 Oral 680 Other: # Voids 1 - Exam Patient is a middle aged Afro-Sammarinese male, in no distress. Patient is alert awake oriented to time place and person. Speech and language functions are normal. Attention, concentration and fund of knowledge is adequate. On cranial examination, pupils are round and reacting to light, visual zapien are full on confrontation, extraocular muscles are intact with no nystagmus. Face is symmetric, tongue protrudes to the midline. Palatal elevation and sensation normal, hearing and shoulder shrug normal, facial sensation normal. Shoulder shrug normal. On muscle strength testing, there is no pronator drift and the strength is normal in arms and legs distally and proximally. Deep tendon reflexes are 1+ and plantars downgoing. Sensory to touch is equal with no neglect. Cerebellar function showed no ataxia for [id number] testing. No dysdiadochokinesia. Tone and bulk of muscles normal. Gait normal. On general examination, there is no carotid bruit or murmur, S1-S2 audible. Abdomen is soft nontender. Chest is clear. Peripheral pulses are present. No edema. - Labs CBC & Chem 7: 02/17/21 07:51 02/20/21 09:34 Labs: Abnormal Lab Results - Last 24 Hours (Table) 02/20/21 02/20/21 Range/Units 11:41 17:29 POC Glucose (mg/dL) 73 L 116 H (75-99) mg/dL Assessment and Plan Assessment: * New onset seizure (focal motor seizure without loss of consciousness. Presenting with right facial/eye droop with jerking of the right upper extremity). Upon reviewing the CT of the head I felt there is possibly Mass over the left anterior horn of lateral ventricle (per Dr. Grover Martines). In fact there is focal dilation of the frontal horn of left lateral ventricle, as compared to computed tomography scan of head from 09/11/2015. The ventricles has in general become slightly more prominent, but predominantly the left frontal horn. * Diabetic ketoacidosis * Polysubstance use (Positive for cocaine and marijuana use) * Uncontrolled hypertension * Elevated troponin * Peripheral artery disease status post vein stripping with graft and toe amputation (02/2020) * Hyperlipidemia * History of Myocardial infarction * Atrial fibrillation Plan: * CT of the head is reported as no acute intracranial abnormality. I personally reviewed the CT head and I felt there is suspicious of growth over the left lateral horn ventricle and felt compressing on it. * Radiological clearance has been obtained. Await MRI of the brain. * EEG performed 02/19/2021 was normal. No epileptiform activity was seen. * Continue Keppra 500mg 1 tab bid (denies of any behavioral issues as baseline and was notified that the medication can affect mood/behavioral issues). * Patient was counseled on avoiding on any further illicit drug use. * Patient was informed to avoid driving car for 6 months as per [place] state law, due to new onset focal seizure disorder. No climbing ladders, operating dangerous machinery or unsupervised swimming. Patient to follow up with pina rologist as an outpatient. * Patient has atrial fibrillation, but currently not on anticoagulation. He is on aspirin, Plavix and Zocor. I would completely defer need for anticoagulation to internal medicine and cardiology.
== END 2021-02-20 18:34 | disposition home or self-care (01) | DRG 101 ==
LOC: EC 23:25 → 3SCARD 02-16 02:12
PROVIDERS: ADMIT Internal Medicine; ATTEND Internal Medicine
DX: G40.109 Localization-related (focal) (partial) symptomatic epilepsy and epileptic syndromes with simple partial seizures, not intractable, without status epilepticus (principal); I25.2 Old myocardial infarction; I48.91 Unspecified atrial fibrillation; Z86.14 Personal history of Methicillin resistant Staphylococcus aureus infection; Z20.828 Contact with and (suspected) exposure to other viral communicable diseases; F12.10 Cannabis abuse, uncomplicated; F14.10 Cocaine abuse, uncomplicated; E78.5 Hyperlipidemia, unspecified; Z91.14 Patient's other noncompliance with medication regimen; I10 Essential (primary) hypertension; Z71.51 Drug abuse counseling and surveillance of drug abuser; E11.51 Type 2 diabetes mellitus with diabetic peripheral angiopathy without gangrene; E11.65 Type 2 diabetes mellitus with hyperglycemia; Z79.02 Long term (current) use of antithrombotics/antiplatelets; Z79.4 Long term (current) use of insulin; Z89.429 Acquired absence of other toe(s), unspecified side; Z87.891 Personal history of nicotine dependence; Z86.73 Personal history of transient ischemic attack (TIA), and cerebral infarction without residual deficits; Z86.718 Personal history of other venous thrombosis and embolism
CPT/HCPCS: 36415; 70450; 70553; 71046; 80048; 80053; 80306; 80320; 81003; 82009; 83036; 84484; 85025; 87635; 93005; 93306; 95819; 96374; 96375; 99285

== ENCOUNTER 2021-05-03 18:14 | Inpatient (IN) | payer MEDICARE, OTHER ==
[2021-05-03] MEDS ORDERED: SODIUM CHLORIDE 0.9% 1,000 ML IV STA ×2 (18:17→19:10)
[2021-05-03 18:27] LABS: Glucose,Whole Blood >600 mg/dL (75-99)
--- NOTE | 2021-05-03 18:34 | ED ---
Neuro HPI - General Stated Complaint: poss stroke Time Seen by Provider: 05/03/21 18:14 Source: EMS, RN notes reviewed, old records reviewed Mode of arrival: EMS - History of Present Illness Is the patient presenting with stroke symptoms?: Yes Initial Comments: This is a 55-year-old male with a history of multiple medical issues including diabetes SD in the past who was out doing yardwork when apparently he was witnessed by family have convulsive-like activity with confusion and left-sided weakness. He was transferred reported here by EMS he seems be able move all his extremities but was not able to follow commands. No seizure activity was witnessed by paramedics. He was noted have an elevated glucose level of over 500 on glucose check. No reports of any trauma no reports of any fevers chills nausea vomiting sweats. The patient himself cannot answer any questions. In addition to the above. Did state that the patient seemed to have a sided weakness and right lateral gaze initially. - Related Data Home Medications: Previous Rx's Medication Instructions Recorded Acetaminophen Tab [Tylenol] 650 mg PO Q6HR PRN tab 02/20/21 Aspirin 81 mg PO DAILY #30 chew 02/20/21 Clopidogrel [Plavix] 75 mg PO DAILY #30 tab 02/20/21 DULoxetine HCL [Cymbalta] 20 mg PO DAILY 30 Days #30 02/20/21 capsule. Doxazosin [Cardura] 4 mg PO DAILY #30 tab 02/20/21 Glimepiride [Amaryl] 2 mg PO DAILY #30 tab 02/20/21 INSULIN ASPART (NovoLOG) [NovoLOG 10 unit SQ AC-TID #1 vial 02/20/21 (formulary)] Insulin Glargine [Lantus] 55 unit SQ HS #1 vial 02/20/21 Simvastatin [Zocor] 20 mg PO HS #30 tab 02/20/21 amLODIPine [Norvasc] 10 mg PO DAILY #30 tab 02/20/21 carvediloL [Coreg] 3.125 mg PO BID-W/MEALS #60 tab 02/20/21 hydroCHLOROthiazide [Hydrodiuril] 25 mg PO DAILY #30 tab 02/20/21 levETIRAcetam [Keppra] 500 mg PO Q12HR #60 tab 02/20/21 lisinopriL [Prinivil] 20 mg PO BID #60 tablet 06/02/21 metFORMIN HCL [Glucophage] 500 mg PO BID #60 tab 02/20/21 Allergies/Adverse Reactions: Allergies Allergy/AdvReac Type Severity Reaction Status Date / Time atorvastatin [From Lipitor] Allergy Swelling Verified 05/03/21 18:31 ibuprofen Allergy Swelling Verified 05/03/21 18:31 pregabalin [From Lyrica] Allergy Swelling Verified 05/03/21 18:31 Review of Systems ROS Statement: Those systems with pertinent positive or pertinent negative responses have been documented in the HPI. ROS Other: All systems not noted in ROS Statement are negative. Limitations: ROS unobtainable due to patients medical condition General Exam - General Exam Comments Initial Comments: Is a well-developed well-nourished awake male unresponsive to commands General appearance: lethargic Head exam: Present: atraumatic, normocephalic, normal inspection Eye exam: Present: normal appearance, PERRL, EOMI. Absent: scleral icterus, conjunctival injection, periorbital swelling ENT exam: Present: normal exam, mucous membranes moist Neck exam: Present: normal inspection, full ROM, other (W(). Absent: te nderness, meningismus, lymphadenopathy Respiratory exam: Present: normal lung sounds bilaterally. Absent: respiratory distress, wheezes, rales, rhonchi, stridor Cardiovascular Exam: Present: regular rate, normal rhythm, normal heart sounds. Absent: systolic murmur, diastolic murmur, rubs, gallop, clicks GI/Abdominal exam: Present: soft, normal bowel sounds. Absent: distended, tenderness, guarding, rebound, rigid Rectal exam: Present: deferred Extremities exam: Present: normal inspection, full ROM, normal capillary refill. Absent: tenderness, pedal edema, joint swelling, calf tenderness Back exam: Present: normal inspection Neurological exam: Present: alert, CN II-XII intact Psychiatric exam: Present: other (Unable to evaluate) Skin exam: Present: warm, dry, intact, normal color. Absent: rash Stroke MDM - Lab Data Result diagrams: 05/03/21 18:27 05/03/21 18:27 Lab Results 05/03/21 05/03/21 05/03/21 Range/Units 18:26 18:27 18:27 WBC 7.1 (3.8-10.6) k/uL RBC 4.88 (4.30-5.90) m/uL Hgb 14.4 (13.0-17.5) gm/dL Hct 45.5 (39.0-53.0) % MCV 93.3 (80.0-100.0) fL MCH 29.5 (25.0-35.0) pg MCHC 31.6 (31.0-37.0) g/dL RDW 12.5 (11.5-15.5) % Plt Count 244 (150-450) k/uL MPV 8.3 Neutrophils % 68 % Lymphocytes % 23 % Monocytes % 5 % Eosinophils % 1 % Basophils % 1 % Neutrophils # 4.8 (1.3-7.7) k/uL Lymphocytes # 1.7 (1.0-4.8) k/uL Monocytes # 0.3 (0-1.0) k/uL Eosinophils # 0.1 (0-0.7) k/uL Basophils # 0.0 (0-0.2) k/uL PT 9.5 (9.0-12.0) sec INR 0.9 (<1.2) APTT 18.0 L (22.0-30.0) sec Sodium (137-145) mmol/L Potassium (3.5-5.1) mmol/L Chloride (98-107) mmol/L Carbon Dioxide (22-30) mmol/L Anion Gap mmol/L BUN (9-20) mg/dL Creatinine (0.66-1.25) mg/dL Est GFR (CKD-EPI)AfAm (>60 ml/min/1.73 sqM) Est GFR (CKD-EPI)NonAf (>60 ml/min/1.73 sqM) Glucose (74-99) mg/dL POC Glucose (mg/dL) >600 H (75-99) mg/dL POC Glu [employer] Manufacture Supervisor ID Peggy Cooper Calcium (8.4-10.2) mg/dL Total Bilirubin (0.2-1.3) mg/dL AST (17-59) U/L ALT (4-49) U/L Alkaline Phosphatase (38-126) U/L Creatine Kinase (55-170) U/L Troponin I (0.000-0.034) ng/mL Total Protein (6.3-8.2) g/dL Albumin (3.5-5.0) g/dL Urine Color Urine Appearance (Clear) Urine pH (5.0-8.0) Ur Specific [place] (1.001-1.035) Urine Protein (Negative) Urine Glucose (UA) (Negative) Urine Ketones (Negative) Urine Blood (Negative) Urine Nitrite (Negative) Urine Bilirubin (Negative) Urine Urobilinogen (<2.0) mg/dL Ur Leukocyte Esterase (Negative) Urine WBC (0-5) /hpf Urine Opiates Screen (NotDetected) Ur Oxycodone Screen (NotDetected) Urine Methadone Screen (NotDetected) Ur Propoxyphene Screen (NotDetected) Ur Barbiturates Screen (NotDetected) U Tricyclic Antidepress (NotDetected) Ur Phencyclidine Scrn (NotDetected) Ur Amphetamines Screen (NotDetected) U Methamphetamines Scrn (NotDetected) U Benzodiazepines Scrn (NotDetected) Urine Cocaine Screen (NotDetected) U Marijuana (THC) Screen (NotDetected) 05/03/21 05/03/21 05/03/21 Range/Units 18:27 18:27 18:27 WBC (3.8-10.6) k/uL RBC (4.30-5.90) m/uL Hgb (13.0-17.5) gm/dL Hct (39.0-53.0) % MCV (80.0-100.0) fL MCH (25.0-35.0) pg MCHC (31.0-37.0) g/dL RDW (11.5-15.5) % Plt Count (150-450) k/uL MPV Neutrophils % % Lymphocytes % % Monocytes % % Eosinophils % % Basophils % % Neutrophils # (1.3-7.7) k/uL Lymphocytes # (1.0-4.8) k/uL Monocytes # (0-1.0) k/uL Eosinophils # (0-0.7) k/uL Basophils # (0-0.2) k/uL PT (9.0-12.0) sec INR (<1.2) APTT (22.0-30.0) sec Sodium 124 L (137-145) mmol/L Potassium 5.6 H (3.5-5.1) mmol/L Chloride 90 L (98-107) mmol/L Carbon Dioxide 20 L (22-30) mmol/L Anion Gap 14 mmol/L BUN 16 (9-20) mg/dL Creatinine 1.10 (0.66-1.25) mg/dL Est GFR (CKD-EPI)AfAm 86 (>60 ml/min/1.73 sqM) Est GFR (CKD-EPI)NonAf 74 (>60 ml/min/1.73 sqM) Glucose 735 H* (74-99) mg/dL POC Glucose (mg/dL) (75-99) mg/dL POC Glu [employer]ence Manufacture Supervisor ID Calcium 10.1 (8.4-10.2) mg/dL Total Bilirubin 0.6 (0.2-1.3) mg/dL AST 25 (17-59) U/L ALT 23 (4-49) U/L Alkaline Phosphatase 124 (38-126) U/L Creatine Kinase 117 (55-170) U/L Troponin I 0.067 H* (0.000-0.034) ng/mL Total Protein 6.8 (6.3-8.2) g/dL Albumin 4.1 (3.5-5.0) g/dL Urine Color Light Yellow Urine Appearance Clear (Clear) Urine pH 5.0 (5.0-8.0) Ur Specific [place] 1.035 (1.001-1.035) Urine Protein 1+ H (Negative) Urine Glucose (UA) 4+ H (Negative) Urine Ketones 1+ H (Negative) Urine Blood Negative (Negative) Urine Nitrite Negative (Negative) Urine Bilirubin Negative (Negative) Urine Urobilinogen <2.0 (<2.0) mg/dL Ur Leukocyte Esterase Negative (Negative) Urine WBC 1 (0-5) /hpf Urine Opiates Screen Not Detected (NotDetected) Ur Oxycodone Screen Not Detected (NotDetected) Urine Methadone Screen Not Detected (NotDetected) Ur Propoxyphene Screen Not Detected (NotDetected) Ur Barbiturates Screen Not Detected (NotDetected) U Tricyclic Antidepress Not Detected (NotDetected) Ur Phencyclidine Scrn Not Detected (NotDetected) Ur Amphetamines Screen Not Detected (NotDetected) U Methamphetamines Scrn Not Detected (NotDetected) U Benzodiazepines Scrn Not Detected (NotDetected) Urine Cocaine Screen Detected H (NotDetected) U Marijuana (THC) Screen Detected H (NotDetected) 05/03/21 Range/Units 19:13 WBC (3.8-10.6) k/uL RBC (4.30-5.90) m/uL Hgb (13.0-17.5) gm/dL Hct (39.0-53.0) % MCV (80.0-100.0) fL MCH (25.0-35.0) pg MCHC (31.0-37.0) g/dL RDW (11.5-15.5) % Plt Count (150-450) k/uL MPV Neutrophils % % Lymphocytes % % Monocytes % % Eosinophils % % Basophils % % Neutrophils # (1.3-7.7) k/uL Lymphocytes # (1.0-4.8) k/uL Monocytes # (0-1.0) k/uL Eosinophils # (0-0.7) k/uL Basophils # (0-0.2) k/uL PT (9.0-12.0) sec INR (<1.2) APTT (22.0-30.0) sec Sodium (137-145) mmol/L Potassium (3.5-5.1) mmol/L Chloride (98-107) mmol/L Carbon Dioxide (22-30) mmol/L Anion Gap mmol/L BUN (9-20) mg/dL Creatinine (0.66-1.25) mg/dL Est GFR (CKD-EPI)AfAm (>60 ml/min/1.73 sqM) Est GFR (CKD-EPI)NonAf (>60 ml/min/1.73 sqM) Glucose (74-99) mg/dL POC Glucose (mg/dL) >600 H (75-99) mg/dL POC Glu [employer] Manufacture Supervisor ID Peggy Bruce Calcium (8.4-10.2) mg/dL Total Bilirubin (0.2-1.3) mg/dL AST (17-59) U/L ALT (4-49) U/L Alkaline Phosphatase (38-126) U/L Creatine Kinase (55-170) U/L Troponin I (0.000-0.034) ng/mL Total Protein (6.3-8.2) g/dL Albumin (3.5-5.0) g/dL Urine Color Urine Appearance (Clear) Urine pH (5.0-8.0) Ur Specific [place] (1.001-1.035) Urine Protein (Negative) Urine Glucose (UA) (Negative) Urine Ketones (Negative) Urine Blood (Negative) Urine Nitrite (Negative) Urine Bilirubin (Negative) Urine Urobilinogen (<2.0) mg/dL Ur Leukocyte Esterase (Negative) Urine WBC (0-5) /hpf Urine Opiates Screen (NotDetected) Ur Oxycodone Screen (NotDetected) Urine Methadone Screen (NotDetected) Ur Propoxyphene Screen (NotDetected) Ur Barbiturates Screen (NotDetected) U Tricyclic Antidepress (NotDetected) Ur Phencyclidine Scrn (NotDetected) Ur Amphetamines Screen (NotDetected) U Methamphetamines Scrn (NotDetected) U Benzodiazepines Scrn (NotDetected) Urine Cocaine Screen (NotDetected) U Marijuana (THC) Screen (NotDetected) - EKG Data -: EKG Interpreted by Me EKG shows normal: sinus rhythm (Sinus rhythm a 95. Interval 140 QRS duration 74 daily since QTC 302/440 to left exodeviation pulses criteria for LVH nonspecific inferior and anterolateral changes) Past Medical History Past Medical History: Atrial Fibrillation, Diabetes Mellitus, Deep Vein Thrombosis (DVT), Hyperlipidemia, Hypertension, Myocardial Infarction (SD), Pneumonia, Vascular Disorder Additional Past Medical History / Comment(s): uvitis glaucoma, PVD, dvt to lower left leg Last Myocardial Infarction Date:: unknown History of Any Multi-Drug Resistant Organisms: MRSA Date of last positivie culture/infection: 06/30/20 MDRO Source:: Left Leg Past Surgical History: Hernia Repair, Orthopedic Surgery Additional Past Surgical History / Comment(s): aortgram w/ runnoff, eye surg implant, bilateral knee SX, left vein stripping in 02/2020 x2, vein graft and toe amputation Past Anesthesia/Blood Transfusion Reactions: No Reported Reaction Additional Past Anesthesia/Blood Transfusion Reaction / Comment(s): no hx blood transfusion Past Psychological History: No Psychological Hx Reported Smoking Status: Former smoker Past Alcohol Use History: Rare Past Drug Use History: Marijuana - Past Family History Mother History Unknown: Yes Brother(s) Family Medical History: COPD Additional Family Medical History / Comment(s): passed from COPD Father Family Medical History: Myocardial Infarction (SD) Additional Family Medical History / Comment(s): passed from SD Course Vital Signs 05/03/21 05/03/21 05/03/21 18:19 18:34 18:50 Temperature 98.0 F Pulse Rate 92 86 91 Respiratory 18 16 18 Rate Blood Pressure 141/93 179/94 165/96 O2 Sat by Pulse 98 96 98 Oximetry 05/03/21 19:30 Temperature Pulse Rate 85 Respiratory 18 Rate Blood Pressure 165/95 O2 Sat by Pulse 100 Oximetry - Reevaluation(s) Reevaluation #1: 05/03/21 20:23 I did reevaluate patient several occasions he became more alert and awake with his NIH score becoming 0. Is awake alert oriented 4. Reevaluation #2: 05/03/21 20:24 Did discuss case with Dr. Valiente of the stroke that worked patient is not a candidate for TPA. He is also not a candidate for intervention at this time Critical Care Time Critical Care Time: Yes Total Critical Care Time: 39 Critical Care Time: Critical care time included initial presentation with history physical labs x- rays multiple reevaluation the patient discussed with the patient regarding findings discussed with the admitting physician admission orders review of old charting was available documentation of the above Disposition Clinical Impression: Transient cerebral ischemia, Uncontrolled diabetes mellitus, Dehydration, Hyponatremia Disposition: ADMITTED IP TO THIS [facility] Condition: Fair Referrals: None,Stated [Primary Care Provider] - 1-2 days
[2021-05-03 18:53] LABS: Basophils % (A) 1 %; Eosinophils # (A) 0.1 k/uL (0-0.7); Eosinophils % (A) 1 %; HCT 45.5 % (39.0-53.0); HGB 14.4 gm/dL (13.0-17.5); Lymphocytes # (A) 1.7 k/uL (1.0-4.8); Lymphocytes % (A) 23 %; MCH 29.5 pg (25.0-35.0); MCHC 31.6 g/dL (31.0-37.0); MCV 93.3 fL (80.0-100.0); Mean Platelet Volume 8.3; Monocytes # (A) 0.3 k/uL (0-1.0); Monocytes % (A) 5 %; Neutrophils # (A) 4.8 k/uL (1.3-7.7); Neutrophils % (A) 68 %; Platelet Count 244 k/uL (150-450); RBC 4.88 m/uL (4.30-5.90); RDW 12.5 % (11.5-15.5); WBC 7.1 k/uL (3.8-10.6)
--- NOTE | 2021-05-03 18:55 | CT ---
EXAM: CT brain wo con for TPA CLINICAL HISTORY: Neuro deficit, suspected stroke. COMPARISON: None TECHNIQUE: Contiguous axial noncontrast images of the brain were obtained. Coronal and sagittal refor mats were generated and reviewed. Automated dose control was used for this exam. FINDINGS: There is no evidence for intracranial hemorrhage, mass effect or midline shift. The white matter is p reserved. Ventricular size and configuration is within normal limits for degree of parenchymal volume. The paranasal sinuses are clear. The mastoid air cells are clear. No evidence for calvarial fracture. IMPRESSION: No acute intracranial abnormality.
[2021-05-03 18:56] LABS: Appearance,Urine Clear (Clear); Bilirubin,Urine Negative (Negative); Blood,Urine Negative (Negative); Color,Urine Light Yellow; Glucose,Urine (UA) 4+ (Negative); Ketones,Urine 1+ (Negative); Leukocyte Esterase,Urine Negative (Negative); Nitrite,Urine Negative (Negative); Protein,Urine 1+ (Negative); Specific Gravity,Urine 1.035 (1.001-1.035); Urobilinogen,Urine <2.0 mg/dL (<2.0); WBC,Urine 1 /hpf (0-5)
[2021-05-03 19:03] LABS: Albumin 4.1 g/dL (3.5-5.0); Calcium 10.1 mg/dL (8.4-10.2); Potassium 5.6 mmol/L (3.5-5.1); Total Bilirubin 0.6 mg/dL (0.2-1.3); Total Protein 6.8 g/dL (6.3-8.2)
[2021-05-03] MEDS ORDERED: INSULIN REGULAR 100 UNIT/ML VIAL (IV) IV ONE ×3 (19:10→23:21)
[2021-05-03 19:16] LABS: Glucose,Whole Blood >600 mg/dL (75-99)
[2021-05-03 19:22] LABS: INR 0.9 (<1.2); Prothrombin Time 9.5 sec (9.0-12.0)
--- NOTE | 2021-05-03 19:27 | CT ---
EXAMINATION TYPE: CT angio head neck DATE OF EXAM: 05/03/2021 HISTORY: Acute stroke suspected. COMPARISON: None available. CT DLP: 697.3 mGycm. Automated Exposure Control for Dose Reduction was Utilized. TECHNIQUE: CTA scan of the head/neck is performed with IV Contrast, patient injected with 65 mL of I sovue 370, axial images are obtained, coronal and sagittal reformatted images are reviewed. Three-D r econstructed images are created on an independent workstation and reviewed. FINDINGS: FINDINGS: There is normal three-vessel branching of the aorta. There is no evidence of high-grade stenosis, dis section or aneurysm seen in the bilateral common carotid, cervical internal carotid and vertebral art eries. There is a diminutive left vertebral artery with dysplastic V4 segment, consistent with normal varian t. There is no evidence of high-grade stenosis, dissection or aneurysm in the intracranial internal c arotid arteries, anterior, middle and posterior cerebral arteries as well as in the imaged vertebral and basilar arteries. The communicating arteries are unremarkable. IMPRESSION: No significant abnormality of the CTA head/neck. NASCET criteria was used in interpretation of this exam?
[2021-05-03 19:33] LABS: Amphetamine Screen,Urine Not Detected (NotDetected); Barbiturate Screen,Urine Not Detected (NotDetected); Benzodiazepines Screen,Urine Not Detected (NotDetected); Cocaine Screen,Urine Detected (NotDetected); Methadone Screen, Urine Not Detected (NotDetected); Opiate Screen,Urine Not Detected (NotDetected); Oxycodone Screen, Urine Not Detected (NotDetected); Phencyclidine Screen,Urine Not Detected (NotDetected); Tricyclic Antidepressant,Urine Not Detected (NotDetected); Urn Cannabinoid Scrn Detected (NotDetected)
--- NOTE | 2021-05-03 19:43 | XR ---
EXAMINATION TYPE: XR chest 2V DATE OF EXAM: 05/03/2021 COMPARISON: 02/16/2021. HISTORY: Altered mental status. TECHNIQUE: Frontal and lateral views of the chest are obtained. FINDINGS: There is no focal air space opacity, pleural effusion, or pneumothorax seen. The cardiac silhouette size is enlarged. The osseous structures are intact. IMPRESSION: No acute cardiopulmonary process.
[2021-05-03] MEDS ORDERED: levETIRAcetam IV 1,000 MG in SALINE 1 100ML.BAG IVPB STA (20:27)
[2021-05-03] MEDS ORDERED: ACETAMINOPHEN TAB 325 MG TAB PO PRN (20:32)
[2021-05-03] MEDS ORDERED: Magnesium Replacement Protocol 1 EACH MISC MISCELLANE PRN ×2 (20:33→23:36)
[2021-05-03] MEDS ORDERED: Potassium Replacement Protocol 1 EACH MISC MISCELLANE PRN ×2 (20:33→23:36)
[2021-05-03] MEDS ORDERED: INSULIN REGULAR BOLUS (FROM DRIP BAG) IV ONE (20:33)
--- NOTE | 2021-05-03 20:36 | ED ---
Medical Decision Making - Lab Data Result diagrams: 05/03/21 18:27 05/03/21 18:27 Lab Results 05/03/21 05/03/21 05/03/21 Range/Units 18:26 18:27 18:27 WBC 7.1 (3.8-10.6) k/uL RBC 4.88 (4.30-5.90) m/uL Hgb 14.4 (13.0-17.5) gm/dL Hct 45.5 (39.0-53.0) % MCV 93.3 (80.0-100.0) fL MCH 29.5 (25.0-35.0) pg MCHC 31.6 (31.0-37.0) g/dL RDW 12.5 (11.5-15.5) % Plt Count 244 (150-450) k/uL MPV 8.3 Neutrophils % 68 % Lymphocytes % 23 % Monocytes % 5 % Eosinophils % 1 % Basophils % 1 % Neutrophils # 4.8 (1.3-7.7) k/uL Lymphocytes # 1.7 (1.0-4.8) k/uL Monocytes # 0.3 (0-1.0) k/uL Eosinophils # 0.1 (0-0.7) k/uL Basophils # 0.0 (0-0.2) k/uL PT 9.5 (9.0-12.0) sec INR 0.9 (<1.2) APTT 18.0 L (22.0-30.0) sec Sodium (137-145) mmol/L Potassium (3.5-5.1) mmol/L Chloride (98-107) mmol/L Carbon Dioxide (22-30) mmol/L Anion Gap mmol/L BUN (9-20) mg/dL Creatinine (0.66-1.25) mg/dL Est GFR (CKD-EPI)AfAm (>60 ml/min/1.73 sqM) Est GFR (CKD-EPI)NonAf (>60 ml/min/1.73 sqM) Glucose (74-99) mg/dL POC Glucose (mg/dL) >600 H (75-99) mg/dL POC Glu Contract Agent ID Peggy Cooper Calcium (8.4-10.2) mg/dL Total Bilirubin (0.2-1.3) mg/dL AST (17-59) U/L ALT (4-49) U/L Alkaline Phosphatase (38-126) U/L Creatine Kinase (55-170) U/L Troponin I (0.000-0.034) ng/mL Total Protein (6.3-8.2) g/dL Albumin (3.5-5.0) g/dL Urine Color Urine Appearance (Clear) Urine pH (5.0-8.0) Ur Specific [place] (1.001-1.035) Urine Protein (Negative) Urine Glucose (UA) (Negative) Urine Ketones (Negative) Urine Blood (Negative) Urine Nitrite (Negative) Urine Bilirubin (Negative) Urine Urobilinogen (<2.0) mg/dL Ur Leukocyte Esterase (Negative) Urine WBC (0-5) /hpf Urine Opiates Screen (NotDetected) Ur Oxycodone Screen (NotDetected) Urine Methadone Screen (NotDetected) Ur Propoxyphene Screen (NotDetected) Ur Barbiturates Screen (NotDetected) U Tricyclic Antidepress (NotDetected) Ur Phencyclidine Scrn (NotDetected) Ur Amphetamines Screen (NotDetected) U Methamphetamines Scrn (NotDetected) U Benzodiazepines Scrn (NotDetected) Urine Cocaine Screen (NotDetected) U Marijuana (THC) Screen (NotDetected) 05/03/21 05/03/21 05/03/21 Range/Units 18:27 18:27 18:27 WBC (3.8-10.6) k/uL RBC (4.30-5.90) m/uL Hgb (13.0-17.5) gm/dL Hct (39.0-53.0) % MCV (80.0-100.0) fL MCH (25.0-35.0) pg MCHC (31.0-37.0) g/dL RDW (11.5-15.5) % Plt Count (150-450) k/uL MPV Neutrophils % % Lymphocytes % % Monocytes % % Eosinophils % % Basophils % % Neutrophils # (1.3-7.7) k/uL Lymphocytes # (1.0-4.8) k/uL Monocytes # (0-1.0) k/uL Eosinophils # (0-0.7) k/uL Basophils # (0-0.2) k/uL PT (9.0-12.0) sec INR (<1.2) APTT (22.0-30.0) sec Sodium 124 L (137-145) mmol/L Potassium 5.6 H (3.5-5.1) mmol/L Chloride 90 L (98-107) mmol/L Carbon Dioxide 20 L (22-30) mmol/L Anion Gap 14 mmol/L BUN 16 (9-20) mg/dL Creatinine 1.10 (0.66-1.25) mg/dL Est GFR (CKD-EPI)AfAm 86 (>60 ml/min/1.73 sqM) Est GFR (CKD-EPI)NonAf 74 (>60 ml/min/1.73 sqM) Glucose 735 H* (74-99) mg/dL POC Glucose (mg/dL) (75-99) mg/dL POC Glu Contract Agent ID Calcium 10.1 (8.4-10.2) mg/dL Total Bilirubin 0.6 (0.2-1.3) mg/dL AST 25 (17-59) U/L ALT 23 (4-49) U/L Alkaline Phosphatase 124 (38-126) U/L Creatine Kinase 117 (55-170) U/L Troponin I 0.067 H* (0.000-0.034) ng/mL Total Protein 6.8 (6.3-8.2) g/dL Albumin 4.1 (3.5-5.0) g/dL Urine Color Light Yellow Urine Appearance Clear (Clear) Urine pH 5.0 (5.0-8.0) Ur Specific [place] 1.035 (1.001-1.035) Urine Protein 1+ H (Negative) Urine Glucose (UA) 4+ H (Negative) Urine Ketones 1+ H (Negative) Urine Blood Negative (Negative) Urine Nitrite Negative (Negative) Urine Bilirubin Negative (Negative) Urine Urobilinogen <2.0 (<2.0) mg/dL Ur Leukocyte Esterase Negative (Negative) Urine WBC 1 (0-5) /hpf Urine Opiates Screen Not Detected (NotDetected) Ur Oxycodone Screen Not Detected (NotDetected) Urine Methadone Screen Not Detected (NotDetected) Ur Propoxyphene Screen Not Detected (NotDetected) Ur Barbiturates Screen Not Detected (NotDetected) U Tricyclic Antidepress Not Detected (NotDetected) Ur Phencyclidine Scrn Not Detected (NotDetected) Ur Amphetamines Screen Not Detected (NotDetected) U Methamphetamines Scrn Not Detected (NotDetected) U Benzodiazepines Scrn Not Detected (NotDetected) Urine Cocaine Screen Detected H (NotDetected) U Marijuana (THC) Screen Detected H (NotDetected) 05/03/21 Range/Units 19:13 WBC (3.8-10.6) k/uL RBC (4.30-5.90) m/uL Hgb (13.0-17.5) gm/dL Hct (39.0-53.0) % MCV (80.0-100.0) fL MCH (25.0-35.0) pg MCHC (31.0-37.0) g/dL RDW (11.5-15.5) % Plt Count (150-450) k/uL MPV Neutrophils % % Lymphocytes % % Monocytes % % Eosinophils % % Basophils % % Neutrophils # (1.3-7.7) k/uL Lymphocytes # (1.0-4.8) k/uL Monocytes # (0-1.0) k/uL Eosinophils # (0-0.7) k/uL Basophils # (0-0.2) k/uL PT (9.0-12.0) sec INR (<1.2) APTT (22.0-30.0) sec Sodium (137-145) mmol/L Potassium (3.5-5.1) mmol/L Chloride (98-107) mmol/L Carbon Dioxide (22-30) mmol/L Anion Gap mmol/L BUN (9-20) mg/dL Creatinine (0.66-1.25) mg/dL Est GFR (CKD-EPI)AfAm (>60 ml/min/1.73 sqM) Est GFR (CKD-EPI)NonAf (>60 ml/min/1.73 sqM) Glucose (74-99) mg/dL POC Glucose (mg/dL) >600 H (75-99) mg/dL POC Glu Contract Agent ID Peggy Bruce Calcium (8.4-10.2) mg/dL Total Bilirubin (0.2-1.3) mg/dL AST (17-59) U/L ALT (4-49) U/L Alkaline Phosphatase (38-126) U/L Creatine Kinase (55-170) U/L Troponin I (0.000-0.034) ng/mL Total Protein (6.3-8.2) g/dL Albumin (3.5-5.0) g/dL Urine Color Urine Appearance (Clear) Urine pH (5.0-8.0) Ur Specific [place] (1.001-1.035) Urine Protein (Negative) Urine Glucose (UA) (Negative) Urine Ketones (Negative) Urine Blood (Negative) Urine Nitrite (Negative) Urine Bilirubin (Negative) Urine Urobilinogen (<2.0) mg/dL Ur Leukocyte Esterase (Negative) Urine WBC (0-5) /hpf Urine Opiates Screen (NotDetected) Ur Oxycodone Screen (NotDetected) Urine Methadone Screen (NotDetected) Ur Propoxyphene Screen (NotDetected) Ur Barbiturates Screen (NotDetected) U Tricyclic Antidepress (NotDetected) Ur Phencyclidine Scrn (NotDetected) Ur Amphetamines Screen (NotDetected) U Methamphetamines Scrn (NotDetected) U Benzodiazepines Scrn (NotDetected) Urine Cocaine Screen (NotDetected) U Marijuana (THC) Screen (NotDetected) Disposition Clinical Impression: Transient cerebral ischemia, Uncontrolled diabetes mellitus, Dehydration, Hyponatremia, Elevated troponin Disposition: ADMITTED IP TO THIS [facility] Condition: Fair Referrals: None,Stated [Primary Care Provider] - 1-2 days
[2021-05-03] MEDS ORDERED: SODIUM CHLORIDE 0.9% 1,000 ML IV SCH (20:45)
[2021-05-03] MEDS ORDERED: INSULIN REGULAR 100 UNIT in SODIUM CHLORIDE 0.9% 100 ML IV SCH ×2 (20:45→23:45)
[2021-05-03] MEDS ORDERED: Simvastatin 20 MG Tab PO SCH (21:00)
[2021-05-03 21:05] LABS: Glucose,Whole Blood 495 mg/dL (75-99)
[2021-05-03] MEDS ORDERED: MELATONIN 5 MG TABLET PO PRN (22:48)
[2021-05-03] MEDS: lisinopriL 20 MG TAB PO SCH (22:53)
[2021-05-04 00:24] LABS: Glucose,Whole Blood 552 mg/dL (75-99)
[2021-05-04 00:50] LABS: Phosphorus 4.6 mg/dL (2.5-4.5); Potassium 4.7 mmol/L (3.5-5.1)
[2021-05-04 01:01] LABS: Glucose,Whole Blood 483 mg/dL (75-99)
[2021-05-04] MEDS: SODIUM CHLORIDE 0.9% 1,000 ML IV SCH ×3 (01:33→09:10)
[2021-05-04 02:01] LABS: Glucose,Whole Blood 523 mg/dL (75-99)
[2021-05-04 03:09] LABS: Glucose,Whole Blood 370 mg/dL (75-99)
[2021-05-04 04:03] LABS: Glucose,Whole Blood 261 mg/dL (75-99)
[2021-05-04] MEDS ORDERED: D5-0.45% NACL WITH KCL 20MEQ/L 1,000 ML IV SCH (04:30)
[2021-05-04 05:02] LABS: Glucose,Whole Blood 85 mg/dL (75-99)
[2021-05-04 05:26] LABS: Basophils # (A) 0.1 k/uL (0-0.2); Basophils % (A) 1 %; Eosinophils # (A) 0.1 k/uL (0-0.7); Eosinophils % (A) 1 %; HCT 38.3 % (39.0-53.0); HGB 13.2 gm/dL (13.0-17.5); Lymphocytes # (A) 3.2 k/uL (1.0-4.8); Lymphocytes % (A) 36 %; MCH 30.7 pg (25.0-35.0); MCHC 34.6 g/dL (31.0-37.0); MCV 88.6 fL (80.0-100.0); Mean Platelet Volume 7.2; Monocytes # (A) 0.4 k/uL (0-1.0); Monocytes % (A) 4 %; Neutrophils % (A) 56 %; Platelet Count 240 k/uL (150-450); RBC 4.32 m/uL (4.30-5.90); RDW 13.1 % (11.5-15.5); WBC 8.9 k/uL (3.8-10.6)
[2021-05-04 05:42] LABS: Phosphorus 3.4 mg/dL (2.5-4.5); Potassium 3.4 mmol/L (3.5-5.1)
[2021-05-04 05:42] LABS: Glucose,Whole Blood 68 mg/dL (75-99)
[2021-05-04 06:01] LABS: Glucose,Whole Blood 137 mg/dL (75-99)
[2021-05-04 06:48] LABS: Glucose,Whole Blood 151 mg/dL (75-99)
[2021-05-04] MEDS: INSULIN ASPART (NovoLOG) 100 UNIT/ML VIAL SQ SCH ×2 (06:51→11:38)
[2021-05-04] MEDS ORDERED: metFORMIN 500 MG TAB PO SCH (07:30)
[2021-05-04] MEDS ORDERED: carvediloL 3.125 MG TAB PO SCH (07:30)
[2021-05-04] MEDS ORDERED: Potassium Replacement Protocol 1 EACH MISC MISCELLANE PRN (07:54)
[2021-05-04 08:30] VITALS: RESP 16
[2021-05-04] MEDS: POTASSIUM CHLORIDE ER 20 MEQ TAB.ER PO SCH ×2 (08:30→09:09)
[2021-05-04] MEDS: lisinopriL 20 MG TAB PO SCH (08:31)
[2021-05-04] MEDS ORDERED: DULoxetine HCL 20 MG CAPSULE.DR PO SCH (09:00)
[2021-05-04] MEDS ORDERED: amLODIPine 10 MG TAB PO SCH (09:00)
[2021-05-04] MEDS ORDERED: DOXAZOSIN 4 MG TAB PO SCH (09:00)
[2021-05-04] MEDS ORDERED: CLOPIDOGREL 75 MG TAB PO SCH (09:00)
[2021-05-04] MEDS ORDERED: levETIRAcetam 500 MG TAB PO SCH (09:00)
[2021-05-04] MEDS ORDERED: ASPIRIN 81 MG PO SCH (09:00)
[2021-05-04] MEDS ORDERED: GLIMEPIRIDE 2 MG TAB PO SCH (09:00)
[2021-05-04] MEDS ORDERED: hydroCHLOROthiazide 25 MG TAB PO SCH (09:00)
[2021-05-04 09:49] LABS: Chol/HDL Ratio 6.35; LDL Cholesterol,Calculated 210.6 mg/dL (0.0-131.0); VLDL Calculation 35.4 mg/dL (5.00-40.00)
--- NOTE | 2021-05-04 09:56 | P.HPIM ---
History of Present Illness The patient is a 55-year-old the male came in with compensative for an episode of seizures where he lost consciousness patient was at his friend's place who witnessed the seizure patient denied any loss of bowel or bladder incontinence or tongue biting. Patient denied any weakness to me abdomen as per ER documentation patient apparently had left-sided weakness. Patient also found to have highly elevated blood sugars of around 750 with anion gap of 14 and only 1+ ketones in the urine patient was acidotic mostly because of lactic acidosis rather than ketosis. Patient didn't take any of his medications for some time and as per the patient here in June medications. Patient I urine drug screen is positive for marijuana and cocaine and patient admits using both of these yesterday. Patient has significant improvement. Patient hyponatremia improved blood sugars improved, patient was started back on Keppra 500 twice a day patient is still one dose history one dose today hypokalemia improved. Patient can use to smoke extensive counseling was provided regarding medication compliance and drug abuse and smoking. Patient will be valid by neurology if cleared by neurology patient will be discharged. Patient had a CT of the head and CT angios the head and neck which did not show any significant abnormality. REVIEW OF SYSTEMS: CONSTITUTIONAL: No fever, no malaise, no fatigue. HEENT: No recent visual problems or hearing problems. Denied any sore throat. CARDIOVASCULAR: No chest pain, orthopnea, PND, no palpitations, no syncope. PULMONARY: No shortness of breath, no cough, no hemoptysis. GASTROINTESTINAL: No diarrhea, no nausea, no vomiting, no abdominal pain. NEUROLOGICAL: As mentioned in HPI HEMATOLOGICAL: Denies any bleeding or petechiae. GENITOURINARY: Denies any burning micturition, frequency, or urgency. MUSCULOSKELETAL/RHEUMATOLOGICAL: Denies any joint pain, swelling, or any muscle pain. ENDOCRINE: Denies any polyuria or polydipsia. The rest of the 14-point review of systems is negative. PHYSICAL EXAMINATION: GENERAL: The patient is alert and oriented x3, not in any acute distress. Well developed, well nourished. HEENT: Pupils are round and equally reacting to light. EOMI. No scleral icterus. No conjunctival pallor. Normocephalic, atraumatic. No pharyngeal erythema. No thyromegaly. CARDIOVASCULAR: S1 and S2 present. No murmurs, rubs, or gallops. PULMONARY: Chest is clear to auscultation, no wheezing or crackles. ABDOMEN: Soft, nontender, nondistended, normoactive bowel sounds. No palpable organomegaly. MUSCULOSKELETAL: No joint swelling or deformity. EXTREMITIES: No cyanosis, clubbing, or pedal edema. NEUROLOGICAL: Gross neurological examination did not reveal any focal deficits. SKIN: No rashes. Assessment and plan -Hypoglycemia without any diabetic ketoacidosis, may have had hyperosmolar state improved now patient was on IV insulin will be transitioned to his home dose of insulin. I do not have an of information to titrate his medications. Patient's hyperglycemia is secondary to noncompliance with medications. -Breakthrough seizure: Secondary to noncompensatory medications patient was resumed on Keppra will be evaluated with neurology. Low possibility of a stroke - mildly elevated troponins secondary to mild acute renal failure and seizure, patient doesn't have any chest pain does have some EKG changes that were old. -Mild anion gap metabolic acidosis mostly secondary to lactic acidosis rather than ketosis -Diabetes mellitus uncontrolled elevated blood sugars -Hypertension next and hyperkeratotic disease -Possible Paroxysmal A. 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 -Hypertension -depression -Marijuana, smoking and cocaine use: Counseling was provided : Past Medical History Past Medical History: Atrial Fibrillation, Diabetes Mellitus, Deep Vein Thrombosis (DVT), Hyperlipidemia, Hypertension, Myocardial Infarction ([place]), Pneumonia, Vascular Disorder Additional Past Medical History / Comment(s): uvitis glaucoma, PVD, dvt to lower left leg Last Myocardial Infarction Date:: unknown History of Any Multi-Drug Resistant Organisms: MRSA Date of last positivie culture/infection: 06/30/20 MDRO Source:: Left Leg Past Surgical History: Hernia Repair, Orthopedic Surgery Additional Past Surgical History / Comment(s): aortgram w/ runnoff, eye surg implant, bilateral knee SX, left vein stripping in 02/2020 x2, vein graft and toe amputation Past Anesthesia/Blood Transfusion Reactions: No Reported Reaction Additional Past Anesthesia/Blood Transfusion Reaction / Comment(s): no hx blood transfusion Past Psychological History: No Psychological Hx Reported Smoking Status: Former smoker Past Alcohol Use History: Rare Additional Past Alcohol Use History / Comment(s): quit smoking at 26,started at age 17,<1ppd Past Drug Use History: Marijuana Additional Drug Use History / Comment(s): uses marijuana daily - Past Family History Mother History Unknown: Yes Brother(s) Family Medical History: COPD Additional Family Medical History / Comment(s): passed from COPD Father Family Medical History: Myocardial Infarction ([place]) Additional Family Medical History / Comment(s): passed from [place] Medications and Allergies Home Medications Medication Instructions Recorded Confirmed Type Acetaminophen Tab [Tylenol] 650 mg PO Q6HR PRN tab 02/20/21 05/03/21 Rx Aspirin 81 mg PO DAILY #30 chew 05/04/21 Rx Clopidogrel [Plavix] 75 mg PO DAILY #30 tab 05/04/21 Rx DULoxetine HCL [Cymbalta] 20 mg PO DAILY 30 Days #30 05/04/21 Rx capsule. Doxazosin [Cardura] 4 mg PO DAILY #30 tab 05/04/21 Rx Glimepiride [Amaryl] 2 mg PO DAILY #30 tab 05/04/21 Rx INSULIN ASPART (NovoLOG) [NovoLOG 10 unit SQ AC-TID #1 vial 05/04/21 Rx (formulary)] Insulin Glargine [Lantus] 55 unit SQ HS #1 vial 05/04/21 Rx Simvastatin [Zocor] 20 mg PO HS #30 tab 05/04/21 Rx amLODIPine [Norvasc] 10 mg PO DAILY #30 tab 05/04/21 Rx carvediloL [Coreg] 3.125 mg PO BID-W/MEALS #60 tab 05/04/21 Rx hydroCHLOROthiazide [Hydrodiuril] 25 mg PO DAILY #30 tab 05/04/21 Rx levETIRAcetam [Keppra] 500 mg PO Q12HR #60 tab 05/04/21 Rx lisinopriL [Prinivil] 20 mg PO BID #60 tablet 05/04/21 Rx metFORMIN HCL [Glucophage] 500 mg PO BID #60 tab 05/04/21 Rx Allergies Allergy/AdvReac Type Severity Reaction Status Date / Time atorvastatin [From Lipitor] Allergy Swelling Verified 05/03/21 18:31 ibuprofen Allergy Swelling Verified 05/03/21 18:31 pregabalin [From Lyrica] Allergy Swelling Verified 05/03/21 18:31 Physical Exam Vitals: Vital Signs Temp Pulse Pulse Resp BP BP Pulse Ox 05/04/21 08:28 98.6 F 83 16 167/82 99 05/04/21 08:00 83 16 05/04/21 04:00 98.3 F 71 14 135/82 05/03/21 23:47 96.5 F L 16 169/75 98 05/03/21 20:30 73 18 162/78 100 05/03/21 19:30 85 18 165/95 100 05/03/21 18:50 91 18 165/96 98 05/03/21 18:34 86 16 179/94 96 05/03/21 18:19 98.0 F 92 18 141/93 98 Intake and Output 05/03/21 05/04/21 05/04/21 22:59 06:59 14:59 Intake Total 200 29.273 180 Output Total 975 225 Balance 200 -945.727 -45 Intake: Intake, IV Titration 200 29.273 Amount Insulin Regular 100 unit 29.273 In Sodium Chloride 0.9% 100 ml @ 0.1 UNITS/KG/HR 8.246 mls/hr IV .[id number] [facility] Rx#:[id number] Sodium Chloride 0.9% 1, 200 000 ml @ 200 mls/hr IV . Q5H [facility] Rx#:[id number] Oral 180 Output: Urine 975 225 Other: Voiding Method Toilet Toilet Urinal Urinal # Voids 1 Weight 81.647 kg 73.1 kg Results CBC & Chem 7: 05/04/21 04:56 05/04/21 04:56 Labs: Abnormal Lab Results - Last 24 Hours (Table) 05/03/21 05/03/21 05/03/21 Range/Units 18:26 18:27 18:27 Hct (39.0-53.0) % APTT 18.0 L (22.0-30.0) sec Sodium (137-145) mmol/L Potassium (3.5-5.1) mmol/L Chloride (98-107) mmol/L Carbon Dioxide (22-30) mmol/L Glucose (74-99) mg/dL POC Glucose (mg/dL) >600 H (75-99) mg/dL Phosphorus (2.5-4.5) mg/dL Troponin I (0.000-0.034) ng/mL Triglycerides (0.0-149.0) mg/dL Cholesterol (0-200) mg/dL LDL Cholesterol, Calc (0.0-131.0) mg/dL Urine Protein 1+ H (Negative) Urine Glucose (UA) 4+ H (Negative) Urine Ketones 1+ H (Negative) Urine Cocaine Screen Detected H (NotDetected) U Marijuana (THC) Screen Detected H (NotDetected) 05/03/21 05/03/21 05/03/21 Range/Units 18:27 18:27 19:13 Hct (39.0-53.0) % APTT (22.0-30.0) sec Sodium 124 L (137-145) mmol/L Potassium 5.6 H (3.5-5.1) mmol/L Chloride 90 L (98-107) mmol/L Carbon Dioxide 20 L (22-30) mmol/L Glucose 735 H* (74-99) mg/dL POC Glucose (mg/dL) >600 H (75-99) mg/dL Phosphorus (2.5-4.5) mg/dL Troponin I 0.067 H* (0.000-0.034) ng/mL Triglycerides (0.0-149.0) mg/dL Cholesterol (0-200) mg/dL LDL Cholesterol, Calc (0.0-131.0) mg/dL Urine Protein (Negative) Urine Glucose (UA) (Negative) Urine Ketones (Negative) Urine Cocaine Screen (NotDetected) U Marijuana (THC) Screen (NotDetected) 05/03/21 05/03/21 05/04/21 Range/Units 21:03 22:05 00:14 Hct (39.0-53.0) % APTT (22.0-30.0) sec Sodium (137-145) mmol/L Potassium (3.5-5.1) mmol/L Chloride (98-107) mmol/L Carbon Dioxide (22-30) mmol/L Glucose (74-99) mg/dL POC Glucose (mg/dL) 495 H 552 H (75-99) mg/dL Phosphorus (2.5-4.5) mg/dL Troponin I 0.077 H* (0.000-0.034) ng/mL Triglycerides (0.0-149.0) mg/dL Cholesterol (0-200) mg/dL LDL Cholesterol, Calc (0.0-131.0) mg/dL Urine Protein (Negative) Urine Glucose (UA) (Negative) Urine Ketones (Negative) Urine Cocaine Screen (NotDetected) U Marijuana (THC) Screen (NotDetected) 05/04/21 05/04/21 05/04/21 Range/Units 00:22 00:22 00:59 Hct (39.0-53.0) % APTT (22.0-30.0) sec Sodium 130 L (137-145) mmol/L Potassium (3.5-5.1) mmol/L Chloride 95 L (98-107) mmol/L Carbon Dioxide (22-30) mmol/L Glucose 479 H (74-99) mg/dL POC Glucose (mg/dL) 483 H (75-99) mg/dL Phosphorus 4.6 H (2.5-4.5) mg/dL Troponin I 0.095 H* (0.000-0.034) ng/mL Triglycerides (0.0-149.0) mg/dL Cholesterol (0-200) mg/dL LDL Cholesterol, Calc (0.0-131.0) mg/dL Urine Protein (Negative) Urine Glucose (UA) (Negative) Urine Ketones (Negative) Urine Cocaine Screen (NotDetected) U Marijuana (THC) Screen (NotDetected) 05/04/21 05/04/21 05/04/21 Range/Units 02:00 03:06 04:01 Hct (39.0-53.0) % APTT (22.0-30.0) sec Sodium (137-145) mmol/L Potassium (3.5-5.1) mmol/L Chloride (98-107) mmol/L Carbon Dioxide (22-30) mmol/L Glucose (74-99) mg/dL POC Glucose (mg/dL) 523 H 370 H 261 H (75-99) mg/dL Phosphorus (2.5-4.5) mg/dL Troponin I (0.000-0.034) ng/mL Triglycerides (0.0-149.0) mg/dL Cholesterol (0-200) mg/dL LDL Cholesterol, Calc (0.0-131.0) mg/dL Urine Protein (Negative) Urine Glucose (UA) (Negative) Urine Ketones (Negative) Urine Cocaine Screen (NotDetected) U Marijuana (THC) Screen (NotDetected) 05/04/21 05/04/21 05/04/21 Range/Units 04:56 04:56 05:40 Hct 38.3 L (39.0-53.0) % APTT (22.0-30.0) sec Sodium 136 L (137-145) mmol/L Potassium 3.4 L (3.5-5.1) mmol/L Chloride (98-107) mmol/L Carbon Dioxide (22-30) mmol/L Glucose (74-99) mg/dL POC Glucose (mg/dL) 68 L (75-99) mg/dL Phosphorus (2.5-4.5) mg/dL Troponin I (0.000-0.034) ng/mL Triglycerides 177.0 H (0.0-149.0) mg/dL Cholesterol 292 H (0-200) mg/dL LDL Cholesterol, Calc 210.6 H (0.0-131.0) mg/dL Urine Protein (Negative) Urine Glucose (UA) (Negative) Urine Ketones (Negative) Urine Cocaine Screen (NotDetected) U Marijuana (THC) Screen (NotDetected) 05/04/21 05/04/21 Range/Units 06:00 06:47 Hct (39.0-53.0) % APTT (22.0-30.0) sec Sodium (137-145) mmol/L Potassium (3.5-5.1) mmol/L Chloride (98-107) mmol/L Carbon Dioxide (22-30) mmol/L Glucose (74-99) mg/dL POC Glucose (mg/dL) 137 H 151 H (75-99) mg/dL Phosphorus (2.5-4.5) mg/dL Troponin I (0.000-0.034) ng/mL Triglycerides (0.0-149.0) mg/dL Cholesterol (0-200) mg/dL LDL Cholesterol, Calc (0.0-131.0) mg/dL Urine Protein (Negative) Urine Glucose (UA) (Negative) Urine Ketones (Negative) Urine Cocaine Screen (NotDetected) U Marijuana (THC) Screen (NotDetected) Thrombosis Risk Factor Assmnt - Choose All That Apply Any of the Below Risk Factors Present?: Yes Each Factor Represents 1 point: Age 41-60 years, Obesity (BMI >25) Thrombosis Risk Factor Assessment Total Risk Factor Score: 2 Thrombosis Risk Factor Assessment Level: Low Risk
--- NOTE | 2021-05-04 09:56 | P.DS ---
Providers Date of admission: 05/03/21 20:28 Attending physician: Evelina Myers Consults: 05/03/21 20:29 Consult Physician Routine Consulting Provider: Nayeli Dumas Consult Reason/Comments: TIA, seizure Do you want consulting provider notified?: Yes 05/03/21 20:30 Consult Physician Routine Consulting Provider: Nishant Manrique Consult Reason/Comments: Elevated troponin Do you want consulting provider notified?: Yes Primary care physician: Stated None Hospital Course: Please refer to my history of present illness for further details Patient Condition at Discharge: Fair Plan - Discharge Summary Discharge Rx Participant: Yes New Discharge Prescriptions: Continue Acetaminophen Tab [Tylenol] 650 mg PO Q6HR PRN tab PRN Reason: Mild Pain Or Fever > 100.5 Aspirin 81 mg PO DAILY #30 chew carvediloL [Coreg] 3.125 mg PO BID-W/MEALS #60 tab levETIRAcetam [Keppra] 500 mg PO Q12HR #60 tab Insulin Glargine [Lantus] 55 unit SQ HS #1 vial amLODIPine [Norvasc] 10 mg PO DAILY #30 tab Clopidogrel [Plavix] 75 mg PO DAILY #30 tab Simvastatin [Zocor] 20 mg PO HS #30 tab Glimepiride [Amaryl] 2 mg PO DAILY #30 tab Doxazosin [Cardura] 4 mg PO DAILY #30 tab DULoxetine HCL [Cymbalta] 20 mg PO DAILY 30 Days #30 capsule. metFORMIN HCL [Glucophage] 500 mg PO BID #60 tab hydroCHLOROthiazide [Hydrodiuril] 25 mg PO DAILY #30 tab INSULIN ASPART (NovoLOG) [NovoLOG (formulary)] 10 unit SQ AC-TID #1 vial lisinopriL [Prinivil] 20 mg PO BID #60 tablet Discharge Medication List Acetaminophen Tab [Tylenol] 650 mg PO Q6HR PRN tab 02/20/21 [Rx] Aspirin 81 mg PO DAILY #30 chew 05/04/21 [Rx] Clopidogrel [Plavix] 75 mg PO DAILY #30 tab 05/04/21 [Rx] DULoxetine HCL [Cymbalta] 20 mg PO DAILY 30 Days #30 capsule. 05/04/21 [Rx] Doxazosin [Cardura] 4 mg PO DAILY #30 tab 05/04/21 [Rx] Glimepiride [Amaryl] 2 mg PO DAILY #30 tab 05/04/21 [Rx] INSULIN ASPART (NovoLOG) [NovoLOG (formulary)] 10 unit SQ AC-TID #1 vial 05/04/21 [Rx] Insulin Glargine [Lantus] 55 unit SQ HS #1 vial 05/04/21 [Rx] Simvastatin [Zocor] 20 mg PO HS #30 tab 05/04/21 [Rx] amLODIPine [Norvasc] 10 mg PO DAILY #30 tab 05/04/21 [Rx] carvediloL [Coreg] 3.125 mg PO BID-W/MEALS #60 tab 05/04/21 [Rx] hydroCHLOROthiazide [Hydrodiuril] 25 mg PO DAILY #30 tab 05/04/21 [Rx] levETIRAcetam [Keppra] 500 mg PO Q12HR #60 tab 05/04/21 [Rx] lisinopriL [Prinivil] 20 mg PO BID #60 tablet 05/04/21 [Rx] metFORMIN HCL [Glucophage] 500 mg PO BID #60 tab 05/04/21 [Rx] Follow up Appointment(s)/Referral(s): Betito Romo MD [REFERRING] - 3 Days Discharge Disposition: HOME SELF-CARE
[2021-05-04 11:34] LABS: Glucose,Whole Blood 358 mg/dL (75-99)
[2021-05-04 11:41] VITALS: BP 149/72; PULSE 76; TEMP 98.2
[2021-05-04] MEDS ORDERED: INSULIN ASPART (NovoLOG) 100 UNIT/ML VIAL SQ SCH (12:30)
--- NOTE | 2021-05-04 14:03 | P.CRDCN ---
History of Present Illness History of present illness: HISTORY OF PRESENTING ILLNESS Patient is a 55-year-old male with history of hypertension, hyperlipidemia, diabetes mellitus insulin-dependent, coronary artery disease status post prior PCI, medical noncompliance, cocaine abuse. Patient states he had been doing okay however did use cocaine and then went to play cards with his friends. He states he had been feeling fairly well and then does not recall how he got to the hospital. Apparently he had a seizure and was brought into the ER was found to have elevated glucose in the 700s. He does have a history of prior seizures. He states he had run out of insulin and therefore not been taking it. We discussed not taking beta omar if he is using cocaine and is adamant that he will stop that now. Last echocardiogram from February 2021 showed low normal ejection fraction 45-50% with inferior hypokinesis. Blood work shows white blood cell count 7.1, hemoglobin 14.4, sodium 124, potassium 5.6, BUN 16, creatinine 1.1, glucose 735, troponin 0.067, 0.077, 0.095. Total cholesterol was 292, LDL 210, HDL 46. He states he was on Lipitor in the past however "it did not work ". It appears he did not have any significant myalgias however states is just did not work. Chest x-ray showed no acute process. EKG shows normal sinus rhythm, left axis deviation, LVH, nonspecific ST depression in lead 3 REVIEW OF SYSTEMS At the time of my exam: CONSTITUTIONAL: Denies fever or chills. CARDIOVASCULAR: Denies chest pain, shortness of breath, orthopnea, PND or palpitations. RESPIRATORY: Denies cough. GASTROINTESTINAL: Denies abdominal pain, diarrhea, constipation, nausea or vomiting. MUSCULOSKELETAL: Denies myalgias. NEUROLOGIC: Denies numbness, tingling or weakness. ENDOCRINE: Denies fatigue, weight change, polydipsia or polyurina. GENITOURINARY: Denies burning, hematuria or urgency with micturation. HEMATOLOGIC: Denies history of anemia or bleeding. PHYSICAL EXAMINATION Vital signs reviewed. CONSTITUTIONAL: No apparent distress. HEENT: Head is normocephalic. Pupils are equal, round. Sclerae anicteric. Mucous membranes of the mouth are moist. No JVD. No carotid bruit. CHEST EXAMINATION: Lungs are clear to auscultation. No chest wall tenderness is noted on palpation or with deep breathing. HEART EXAMINATION: Regular rate and rhythm. S1, S2 heard. No murmurs, gallops or rub. ABDOMEN: Soft, nontender. Positive bowel sounds. EXTREMITIES: 2+ peripheral pulses, no lower extremity edema and no calf tenderness. NEUROLOGIC EXAMINATION: Patient is awake, alert and oriented x3. ASSESSMENT 1. Mildly elevated troponins, similar to the past. No specific angina-type symptoms and do not suspect acute coronary syndrome. Suspect type II mechanism related to seizure 2. Type 2 diabetes mellitus 3. Hyperglycemia related to medical noncompliance 4. Essential hypertension 5. Mild cardiomyopathy with ejection fraction 45-50% 6. History of coronary artery disease status post PCI 7. Polysubstance abuse with cocaine and marijuana 8. Peripheral arterial disease status post toe amputation 9. Hyperlipidemia uncontrolled 10. Seizure 11. History of stroke PLAN Patient's main presentation was of altered mental status and seizure-like activity likely related to his uncontrolled hyperglycemia. He denies any angina-type symptoms and his troponins are elevated, similar to presentation in February with echocardiogram ejection fraction 45-50% at that time. Unclear if patient is a good interventional candidate given medical noncompliance, cocaine abuse. We discussed stopping his beta omar given continued cocaine abuse however he would prefer to stay on and states he will not use cocaine anymore. Patient anxious to go home and is cleared from a cardiology standpoint. Discussed importance of follow-up and management of his uncontrolled hyperlipidemia. Discussed possibly going back on Lipitor and PCSK9 inhibitor however patient like to continue with current regimen. Past Medical History Past Medical History: Atrial Fibrillation, Diabetes Mellitus, Deep Vein Thro mbosis (DVT), Hyperlipidemia, Hypertension, Myocardial Infarction (VT), Pneumonia, Vascular Disorder Additional Past Medical History / Comment(s): uvitis glaucoma, PVD, dvt to lower left leg Last Myocardial Infarction Date:: unknown History of Any Multi-Drug Resistant Organisms: MRSA Date of last positivie culture/infection: 06/30/20 MDRO Source:: Left Leg Past Surgical History: Hernia Repair, Orthopedic Surgery Additional Past Surgical History / Comment(s): aortgram w/ runnoff, eye surg implant, bilateral knee SX, left vein stripping in 02/2020 x2, vein graft and toe amputation Past Anesthesia/Blood Transfusion Reactions: No Reported Reaction Additional Past Anesthesia/Blood Transfusion Reaction / Comment(s): no hx blood transfusion Past Psychological History: No Psychological Hx Reported Smoking Status: Former smoker Past Alcohol Use History: Rare Additional Past Alcohol Use History / Comment(s): quit smoking at 26,started at age 17,<1ppd Past Drug Use History: Marijuana Additional Drug Use History / Comment(s): uses marijuana daily - Past Family History Mother History Unknown: Yes Brother(s) Family Medical History: COPD Additional Family Medical History / Comment(s): passed from COPD Father Family Medical History: Myocardial Infarction (VT) Additional Family Medical History / Comment(s): passed from [place] Medications and Allergies Home Medications Medication Instructions Recorded Confirmed Type Acetaminophen Tab [Tylenol] 650 mg PO Q6HR PRN tab 02/20/21 05/03/21 Rx Aspirin 81 mg PO DAILY #30 chew 05/04/21 Rx Clopidogrel [Plavix] 75 mg PO DAILY #30 tab 05/04/21 Rx DULoxetine HCL [Cymbalta] 20 mg PO DAILY 30 Days #30 05/04/21 Rx capsule. Doxazosin [Cardura] 4 mg PO DAILY #30 tab 05/04/21 Rx Glimepiride [Amaryl] 2 mg PO DAILY #30 tab 05/04/21 Rx INSULIN ASPART (NovoLOG) [NovoLOG 10 unit SQ AC-TID #1 vial 05/04/21 Rx (formulary)] Insulin Glargine [Lantus] 55 unit SQ HS #1 vial 05/04/21 Rx Simvastatin [Zocor] 20 mg PO HS #30 tab 05/04/21 Rx amLODIPine [Norvasc] 10 mg PO DAILY #30 tab 05/04/21 Rx carvediloL [Coreg] 3.125 mg PO BID-W/MEALS #60 tab 05/04/21 Rx hydroCHLOROthiazide [Hydrodiuril] 25 mg PO DAILY #30 tab 05/04/21 Rx levETIRAcetam [Keppra] 500 mg PO Q12HR #60 tab 05/04/21 Rx lisinopriL [Prinivil] 20 mg PO BID #60 tablet 05/04/21 Rx metFORMIN HCL [Glucophage] 500 mg PO BID #60 tab 05/04/21 Rx Allergies Allergy/AdvReac Type Severity Reaction Status Date / Time atorvastatin [From Lipitor] Allergy Swelling Verified 05/03/21 18:31 ibuprofen Allergy Swelling Verified 05/03/21 18:31 pregabalin [From Lyrica] Allergy Swelling Verified 05/03/21 18:31 Physical Exam Vitals: Vital Signs Temp Pulse Pulse Pulse Resp BP BP 05/04/21 11:39 98.2 F 76 16 149/72 05/04/21 08:28 98.6 F 83 16 167/82 05/04/21 08:00 83 16 05/04/21 04:00 98.3 F 71 14 135/82 05/03/21 23:47 96.5 F L 16 169/75 05/03/21 20:30 73 18 162/78 05/03/21 19:30 85 18 165/95 05/03/21 18:50 91 18 165/96 05/03/21 18:34 86 16 179/94 05/03/21 18:19 98.0 F 92 18 141/93 Pulse Ox 05/04/21 11:39 97 05/04/21 08:28 99 05/04/21 08:00 05/04/21 04:00 05/03/21 23:47 98 05/03/21 20:30 100 05/03/21 19:30 100 05/03/21 18:50 98 05/03/21 18:34 96 05/03/21 18:19 98 Intake and Output 05/03/21 05/04/21 05/04/21 22:59 06:59 14:59 Intake Total 200 29.273 420 Output Total 975 725 Balance 200 -945.727 -305 Intake: Intake, IV Titration 200 29.273 Amount Insulin Regular 100 unit 29.273 In Sodium Chloride 0.9% 100 ml @ 0.1 UNITS/KG/HR 8.246 mls/hr IV .[id number] [facility] Rx#:[id number] Sodium Chloride 0.9% 1, 200 000 ml @ 200 mls/hr IV . Q5H [facility] Rx#:[id number] Oral 420 Output: Urine 975 725 Other: Voiding Method Toilet Toilet Urinal Urinal # Voids 1 Weight 81.647 kg 73.1 kg Results 05/04/21 04:56 05/04/21 04:56 Cardiac Enzymes 05/03/21 05/03/21 05/03/21 Range/Units 18:27 18:27 22:05 AST 25 (17-59) U/L Troponin I 0.067 H* 0.077 H* (0.000-0.034) ng/mL 05/04/21 Range/Units 00:22 AST (17-59) U/L Troponin I 0.095 H* (0.000-0.034) ng/mL Coagulation 05/03/21 Range/Units 18:27 PT 9.5 (9.0-12.0) sec APTT 18.0 L (22.0-30.0) sec Lipids 05/04/21 Range/Units 04:56 Triglycerides 177.0 H (0.0-149.0) mg/dL Cholesterol 292 H (0-200) mg/dL HDL Cholesterol 46.0 (40.0-60.0) mg/dL Cholesterol/HDL Ratio 6.35 CBC 05/03/21 05/04/21 Range/Units 18:27 04:56 WBC 7.1 8.9 (3.8-10.6) k/uL RBC 4.88 4.32 (4.30-5.90) m/uL Hgb 14.4 13.2 (13.0-17.5) gm/dL Hct 45.5 38.3 L (39.0-53.0) % Plt Count 244 240 (150-450) k/uL Comprehensive Metabolic Panel 05/03/21 05/04/21 05/04/21 Range/Units 18:27 00:22 04:56 Sodium 124 L 130 L 136 L (137-145) mmol/L Potassium 5.6 H 4.7 3.4 L (3.5-5.1) mmol/L Chloride 90 L 95 L 104 (98-107) mmol/L Carbon Dioxide 20 L 25 24 (22-30) mmol/L BUN 16 (9-20) mg/dL Creatinine 1.10 (0.66-1.25) mg/dL Glucose 735 H* 479 H 88 (74-99) mg/dL Calcium 10.1 (8.4-10.2) mg/dL AST 25 (17-59) U/L ALT 23 (4-49) U/L Alkaline Phosphatase 124 (38-126) U/L Total Protein 6.8 (6.3-8.2) g/dL Albumin 4.1 (3.5-5.0) g/dL Current Medications Generic Name Dose Route Start Last Admin Trade Name Freq PRN Reason Stop Dose Admin Acetaminophen 650 mg 05/03/21 20:32 Acetaminophen Tab 325 Mg Tab PO Q6HR PRN Mild Pain or Fever > 100.5 Amlodipine Besylate 10 mg 05/04/21 09:00 05/04/21 08:30 Amlodipine 10 Mg Tab PO 10 mg DAILY DENNISE Administration Aspirin 81 mg 05/04/21 09:00 05/04/21 08:30 Aspirin 81 Mg PO 81 mg DAILY [facility] Administration Carvedilol 3.125 mg 05/04/21 07:30 05/04/21 06:51 Carvedilol 3.125 Mg Tab PO 3.125 mg BID-W/MEALS [facility] Administration Clopidogrel Bisulfate 75 mg 05/04/21 09:00 05/04/21 08:31 Clopidogrel 75 Mg Tab PO 75 mg DAILY DENNSIE Administration Doxazosin Mesylate 4 mg 05/04/21 09:00 05/04/21 08:31 Doxazosin 4 Mg Tab PO 4 mg DAILY DENNISE Administration Duloxetine HCl 20 mg 05/04/21 09:00 05/04/21 08:30 Duloxetine Hcl 20 Mg Capsule.Dr PO 20 mg DAILY [facility]NISE Administration Glimepiride 2 mg 05/04/21 09:00 05/04/21 08:31 Glimepiride 2 Mg Tab PO 2 mg DAILY DENNISE Administration Insulin Human Regular 100 unit 101 mls @ 8.246 mls/hr 05/03/21 23:45 05/04/21 05:06 / Sodium Chloride IV 0 units/kg/hr .[id number] [facility] 0 mls/hr Titration Protocol 0.1 UNITS/KG/HR Sodium Chloride 1,000 mls @ 100 mls/hr 05/03/21 23:45 05/04/21 09:10 Saline 0.9% IV 100 mls/hr .Q10H [facility] Administration Insulin Aspart 0 unit 05/04/21 07:30 05/04/21 11:38 Insulin Aspart (Novolog) 100 Unit/Ml Vial SQ 6 unit ACHS [facility] Administration Protocol Insulin Aspart 7 unit 05/04/21 12:30 05/04/21 11:38 Insulin Aspart (Novolog) 100 Unit/Ml Vial 0.1 unit/kg (7 unit) 7 unit SQ Administration AC-TID [facility] Insulin Detemir 50 unit 05/04/21 21:00 Insulin Detemir (Levemir) 100 Unit/Ml Syr SQ HS [facility] Levetiracetam 500 mg 05/04/21 09:00 05/04/21 08:30 Levetiracetam 500 Mg Tab PO 500 mg Q12HR [facility] Administration Lisinopril 20 mg 05/03/21 21:00 05/04/21 08:31 Lisinopril 20 Mg Tab PO 20 mg BID [facility] Administration Melatonin 5 mg 05/03/21 22:48 05/03/21 22:53 Melatonin 5 Mg Tablet PO 5 mg HS PRN Administration Insomnia Metformin HCl 500 mg 05/04/21 07:30 05/04/21 06:51 Metformin 500 Mg Tab PO 500 mg BID-W/MEALS [facility]NISE Administration Miscellaneous Information 1 each 05/03/21 23:36 Magnesium Replacement Protocol 1 Each Misc MISCELLANE DAILY PRN Per Protocol Protocol Miscellaneous Information 1 each 05/04/21 07:54 Potassium Replacement Protocol 1 Each Misc MISCELLANE DAILY PRN Per Protocol Protocol Simvastatin 20 Mg 20 mg 05/03/21 21:00 05/04/21 01:13 Tab PO Not Given HS DENNISE Intake and Output 05/03/21 05/04/21 05/04/21 22:59 06:59 14:59 Intake Total 200 29.273 420 Output Total 975 725 Balance 200 -945.727 -305 Intake: Intake, IV Titration 200 29.273 Amount Insulin Regular 100 unit 29.273 In Sodium Chloride 0.9% 100 ml @ 0.1 UNITS/KG/HR 8.246 mls/hr IV .[id number] [facility] Rx#:[id number] Sodium Chloride 0.9% 1, 200 000 ml @ 200 mls/hr IV . Q5H [facility] Rx#:[id number] Oral 420 Output: Urine 975 725 Other: Voiding Method Toilet Toilet Urinal Urinal # Voids 1 Weight 81.647 kg 73.1 kg 05/04/21 04:56 05/04/21 04:56
[2021-05-04 14:26] VITALS: BMI 25.2
--- NOTE | 2021-05-04 15:02 | P.CNNES ---
History of Present Illness Consult date: 05/04/21 Requesting physician: Sunil Gonzalez Reason for Consult: TIA, seizure History of Present Illness: This is a Tele-neurology consultation performed on 05/04/2021. 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 Patient states that yesterday he was hanging out with friends at their home, playing cards. He has no warning and next thing he remembers is waking up in the hospital. He admitted that he smoked some cocaine "little bit". As per EMS flow sheet when they arrived, patient was in care of bystanders and they described possible convulsions prior to arrival [employer] that lasted minutes. Patient has history of CVA and possible seizure. Patient has signs and symptoms of Nabeel's paresis, patient has abnormal gaze to the right, when asked to squeeze his hands, the left hand was completely flaccid. When patient was asked to raise his legs on the stretcher, his right leg raise normal by the left leg was only raised an inch or 2. Patient also appeared post ictal due to confusion. Patient's vitals at the scene was blood pressure 161/109, pulse rate 106, respiration 18 saturation 97% GCS 14, blood glucose 528. Computed tomography scan of head showed no acute intracranial abnormality. CTA showed no significant abnormality of the CTA head and neck. Chest x-ray was normal. EKG shows normal sinus rhythm with left axis deviation. Voltage criteria for LVH. Patient's blood tests shows normal CBC, sodium 136 potassium 3.4, cholesterol 292, LDL 210, HDL 46 and triglycerides 177. Troponin is 0.095. Urine drug screen positive for cocaine and marijuana. Acetone positive. Stroke code was activated. ED staff discuss case with Dr. Valiente, patient not a candidate for TPA or intervention. Patient was post ictal on arrival, but became more alert in the ER. His NIH stroke scale was 0. In the ER patient was given a loading dose of Keppra 1000 mg IV. Patient has been resumed on Keppra 500 mg twice a day orally. Patient's home medications include doxazosin 4 mg, Coreg, HCTZ, Keppra 500 mg every 12 hours, lisinopril given Nipride, aspirin 81 mg Cymbalta 20 mg metformin, amlodipine, Plavix 75 mg, insulin and simvastatin 20 mg. Patient had a prior EEG on 02/19/2021, which was normal. No epileptiform activity was seen. Patient has been seen by myself on 02/20/2021. At that time patient's urine was also positive for cocaine. He had an MRI of the brain, which revealed old lacunar infarct anterior left internal capsule. Cerebral atrophy. Extensive chronic small vessel ischemic change. Patient at this time stated that he ran out of all his medications including aspirin, Plavix, Keppra. He has been off medication since last week of March 2021. He denies any tongue bite although he admits to losing control of urine with this spell. Review of Systems Completely unremarkable at this time. Past Medical History Past Medical History: Atrial Fibrillation, Diabetes Mellitus, Deep Vein Thrombosis (DVT), Hyperlipidemia, Hypertension, Myocardial Infarction (OK), Pneumonia, Vascular Disorder Additional Past Medical History / Comment(s): uvitis glaucoma, PVD, dvt to lower left leg Last Myocardial Infarction Date:: unknown History of Any Multi-Drug Resistant Organisms: MRSA Date of last positivie culture/infection: 06/30/20 MDRO Source:: Left Leg Past Surgical History: Hernia Repair, Orthopedic Surgery Additional Past Surgical History / Comment(s): aortgram w/ runnoff, eye surg implant, bilateral knee SX, left vein stripping in 02/2020 x2, vein graft and toe amputation Past Anesthesia/Blood Transfusion Reactions: No Reported Reaction Additional Past Anesthesia/Blood Transfusion Reaction / Comment(s): no hx blood transfusion Past Psychological History: No Psychological Hx Reported Smoking Status: Former smoker Past Alcohol Use History: Rare Additional Past Alcohol Use History / Comment(s): quit smoking at 26,started at age 17,<1ppd Past Drug Use History: Marijuana Additional Drug Use History / Comment(s): uses marijuana daily - Past Family History Mother History Unknown: Yes Brother(s) Family Medical History: COPD Additional Family Medical History / Comment(s): passed from COPD Father Family Medical History: Myocardial Infarction (OK) Additional Family Medical History / Comment(s): passed from [place] Medications and Allergies Home Medications Medication Instructions Recorded Confirmed Type Acetaminophen Tab [Tylenol] 650 mg PO Q6HR PRN tab 02/20/21 05/03/21 Rx Aspirin 81 mg PO DAILY #30 chew 08/14/21 Rx Clopidogrel [Plavix] 75 mg PO DAILY #30 tab 05/04/21 Rx DULoxetine HCL [Cymbalta] 20 mg PO DAILY 30 Days #30 05/04/21 Rx capsule. Doxazosin [Cardura] 4 mg PO DAILY #30 tab 05/04/21 Rx Glimepiride [Amaryl] 2 mg PO DAILY #30 tab 05/04/21 Rx INSULIN ASPART (NovoLOG) [NovoLOG 10 unit SQ AC-TID #1 vial 05/04/21 Rx (formulary)] Insulin Glargine [Lantus] 55 unit SQ HS #1 vial 05/04/21 Rx Simvastatin [Zocor] 20 mg PO HS #30 tab 05/04/21 Rx amLODIPine [Norvasc] 10 mg PO DAILY #30 tab 05/04/21 Rx carvediloL [Coreg] 3.125 mg PO BID-W/MEALS #60 tab 05/04/21 Rx hydroCHLOROthiazide [Hydrodiuril] 25 mg PO DAILY #30 tab 05/04/21 Rx levETIRAcetam [Keppra] 500 mg PO Q12HR #60 tab 05/04/21 Rx lisinopriL [Prinivil] 20 mg PO BID #60 tablet 05/04/21 Rx metFORMIN HCL [Glucophage] 500 mg PO BID #60 tab 05/04/21 Rx Allergies Allergy/AdvReac Type Severity Reaction Status Date / Time atorvastatin [From Lipitor] Allergy Swelling Verified 05/03/21 18:31 ibuprofen Allergy Swelling Verified 05/03/21 18:31 pregabalin [From Lyrica] Allergy Swelling Verified 05/03/21 18:31 Physical Examination - Vital Signs Vital Signs: Vital Signs Temp Pulse Pulse Resp BP BP Pulse Ox 05/04/21 08:28 98.6 F 83 16 167/82 99 05/04/21 08:00 83 16 05/04/21 04:00 98.3 F 71 14 135/82 05/03/21 23:47 96.5 F L 16 169/75 98 05/03/21 20:30 73 18 162/78 100 05/03/21 19:30 85 18 165/95 100 05/03/21 18:50 91 18 165/96 98 05/03/21 18:34 86 16 179/94 96 05/03/21 18:19 98.0 F 92 18 141/93 98 Intake and Output 05/03/21 05/04/21 05/04/21 22:59 06:59 14:59 Intake Total 200 29.273 180 Output Total 975 225 Balance 200 -945.727 -45 Intake: Intake, IV Titration 200 29.273 Amount Insulin Regular 100 unit 29.273 In Sodium Chloride 0.9% 100 ml @ 0.1 UNITS/KG/HR 8.246 mls/hr IV .[id number] [facility] Rx#:[id number] Sodium Chloride 0.9% 1, 200 000 ml @ 200 mls/hr IV . Q5H [facility] Rx#:[id number] Oral 180 Output: Urine 975 225 Other: Voiding Method Toilet Toilet Urinal Urinal # Voids 1 Weight 81.647 kg 73.1 kg Patient is a middle aged Afro[place] male, in no acute distress. Patient is alert awake oriented to time place and person. Patient knows it is April 2021 and that he is in [facility]. Speech and language functions are normal. Attention, concentration and fund of knowledge is adequate. On cranial examination, pupils are round and reacting to light, visual zapien are full on confrontation, extraocular muscles are intact with no nystagmus. Face is symmetric, tongue protrudes to the midline. Palatal elevation and sensation normal, hearing and shoulder shrug normal, facial sensation normal. Shoulder shrug normal. On muscle strength testing, there is no pronator drift and the strength is normal in arms and legs distally and proximally. Deep tendon reflexes are 1+ and right toe is flexor. Patient has amputated left big toe. Sensory to touch is equal with no neglect. Cerebellar function showed no ataxia for [id number]-[id number] testing. No dysdiadochokinesia. Tone and bulk of muscles normal. Gait normal. On general examination, there is no carotid bruit or murmur, S1-S2 audible. Abdomen is soft nontender. Chest is clear. Peripheral pulses are present. No edema. Results - Laboratory Findings CBC and BMP: 05/04/21 04:56 05/04/21 04:56 Abnormal Lab Findings: Abnormal Labs 05/03/21 05/03/21 05/03/21 18:26 18:27 18:27 Hct APTT 18.0 L Sodium Potassium Chloride Carbon Dioxide Glucose POC Glucose (mg/dL) >600 H Phosphorus Troponin I Triglycerides Cholesterol LDL Cholesterol, Calc Urine Protein 1+ H Urine Glucose (UA) 4+ H Urine Ketones 1+ H Urine Cocaine Screen Detected H U Marijuana (THC) Screen Detected H 05/03/21 05/03/21 05/03/21 18:27 18:27 19:13 Hct APTT Sodium 124 L Potassium 5.6 H Chloride 90 L Carbon Dioxide 20 L Glucose 735 H* POC Glucose (mg/dL) >600 H Phosphorus Troponin I 0.067 H* Triglycerides Cholesterol LDL Cholesterol, Calc Urine Protein Urine Glucose (UA) Urine Ketones Urine Cocaine Screen U Marijuana (THC) Screen 05/03/21 05/03/21 05/04/21 21:03 22:05 00:14 Hct APTT Sodium Potassium Chloride Carbon Dioxide Glucose POC Glucose (mg/dL) 495 H 552 H Phosphorus Troponin I 0.077 H* Triglycerides Cholesterol LDL Cholesterol, Calc Urine Protein Urine Glucose (UA) Urine Ketones Urine Cocaine Screen U Marijuana (THC) Screen 05/04/21 05/04/21 05/04/21 00:22 00:22 00:59 Hct APTT Sodium 130 L Potassium Chloride 95 L Carbon Dioxide Glucose 479 H POC Glucose (mg/dL) 483 H Phosphorus 4.6 H Troponin I 0.095 H* Triglycerides Cholesterol LDL Cholesterol, Calc Urine Protein Urine Glucose (UA) Urine Ketones Urine Cocaine Screen U Marijuana (THC) Screen 05/04/21 05/04/21 05/04/21 02:00 03:06 04:01 Hct APTT Sodium Potassium Chloride Carbon Dioxide Glucose POC Glucose (mg/dL) 523 H 370 H 261 H Phosphorus Troponin I Triglycerides Cholesterol LDL Cholesterol, Calc Urine Protein Urine Glucose (UA) Urine Ketones Urine Cocaine Screen U Marijuana (THC) Screen 05/04/21 05/04/21 05/04/21 04:56 04:56 05:40 Hct 38.3 L APTT Sodium 136 L Potassium 3.4 L Chloride Carbon Dioxide Glucose POC Glucose (mg/dL) 68 L Phosphorus Troponin I Triglycerides 177.0 H Cholesterol 292 H LDL Cholesterol, Calc 210.6 H Urine Protein Urine Glucose (UA) Urine Ketones Urine Cocaine Screen U Marijuana (THC) Screen 05/04/21 05/04/21 06:00 06:47 Hct APTT Sodium Potassium Chloride Carbon Dioxide Glucose POC Glucose (mg/dL) 137 H 151 H Phosphorus Troponin I Triglycerides Cholesterol LDL Cholesterol, Calc Urine Protein Urine Glucose (UA) Urine Ketones Urine Cocaine Screen U Marijuana (THC) Screen Assessment and Plan Assessment: * Witnessed seizure with post ictal Nabeel's paralysis. * History of seizure disorder * Noncompliance with medication. * Uncontrolled diabetes with positive acetone. * Hypertension * Polysubstance abuse with urine positive for cocaine. * Peripheral arterial disease * Hyperlipidemia * History of [place]. * History of atrial fibrillation. Currently not on any anticoagulation. Patient follows up with cardiology Dr Negron. Plan: * Patient's seizure occurred due to noncompliance with medication. He has been off Keppra since last week of March 2021. Resume Keppra 500 mg twice a day. No need to increase the dose. * Strongly recommended to abstain from substance abuse particularly cocaine. Marijuana use. * Treatment of hypertension, and uncontrolled diabetes as per IM. * Cardiology also on the case regarding borderline elevated troponins. * Resume dual antiplatelet medications and statins. Cholesterol 292, LDL 210, HDL 46 and triglycerides 177. Patient has been off his statins for last 1 month. * Patient informed of [place] state law of not driving unless seizure free for 6 months, climbing ladders, operating dangerous machinery or unsupervised swimming. * Patient recommended to follow-up with his mechanical specialist and also follow up with a neurologist as outpatient. * Neurologically clear for discharge.
[2021-05-04 17:08] LABS: Hemoglobin A1C 15.4 % (4.0-6.0)
[2021-05-04] MEDS ORDERED: INSULIN DETEMIR (LEVEMIR) 100 UNIT/ML SYR SQ SCH (21:00)
== END 2021-05-04 16:35 | disposition home or self-care (01) | DRG 92 ==
LOC: EC 18:14 → 3SCARD 20:28
PROVIDERS: ADMIT Internal Medicine; ATTEND Internal Medicine
DX: G83.84 Todd's paralysis (postepileptic) (principal); E87.1 Hypo-osmolality and hyponatremia; E87.2 Acidosis; I42.9 Cardiomyopathy, unspecified; E86.0 Dehydration; E11.65 Type 2 diabetes mellitus with hyperglycemia; Z91.14 Patient's other noncompliance with medication regimen; G40.909 Epilepsy, unspecified, not intractable, without status epilepticus; I10 Essential (primary) hypertension; F14.10 Cocaine abuse, uncomplicated; I48.91 Unspecified atrial fibrillation; Z86.718 Personal history of other venous thrombosis and embolism; Z86.14 Personal history of Methicillin resistant Staphylococcus aureus infection; Z82.49 Family history of ischemic heart disease and other diseases of the circulatory system; Z82.5 Family history of asthma and other chronic lower respiratory diseases; Z79.82 Long term (current) use of aspirin; Z79.4 Long term (current) use of insulin; Z79.02 Long term (current) use of antithrombotics/antiplatelets; Z88.6 Allergy status to analgesic agent; Z88.8 Allergy status to other drugs, medicaments and biological substances; Z86.73 Personal history of transient ischemic attack (TIA), and cerebral infarction without residual deficits; R29.700 NIHSS score 0; I25.2 Old myocardial infarction; H40.9 Unspecified glaucoma; Z87.891 Personal history of nicotine dependence; I73.9 Peripheral vascular disease, unspecified; E78.5 Hyperlipidemia, unspecified; E87.6 Hypokalemia; F12.10 Cannabis abuse, uncomplicated; F32.9 Major depressive disorder, single episode, unspecified; E11.51 Type 2 diabetes mellitus with diabetic peripheral angiopathy without gangrene; I25.10 Atherosclerotic heart disease of native coronary artery without angina pectoris; Z89.429 Acquired absence of other toe(s), unspecified side; Z91.19 Patient's noncompliance with other medical treatment and regimen; Z98.61 Coronary angioplasty status; Z79.899 Other long term (current) drug therapy; R77.8 Other specified abnormalities of plasma proteins
CPT/HCPCS: 36415; 70450; 70496; 70498; 71046; 80051; 80053; 80061; 80306; 81001; 82009; 82550; 82947; 83036; 84100; 84484; 85025; 85610; 85730; 93005; 96361; 96365; 99291

== ENCOUNTER 2021-07-18 12:50 | Emergency (ER) | payer MEDICARE, OTHER ==
[2021-07-18 12:58] VITALS: BP 134/78; PULSE 83; RESP 20; TEMP 97.9
--- NOTE | 2021-07-18 13:16 | ED ---
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 Patient had noticed a rash and pain in his foot which has been present for at least one year. He has not followed up with his surgeon. He has not applied any cream. He denies fever. He denies swelling or erythema. He states the pain is been constant. He was a former smoker and current diabetic. - Related Data Previous Rx's Medication Instructions Recorded Acetaminophen Tab [Tylenol] 650 mg PO Q6HR PRN tab 02/20/21 Aspirin 81 mg PO DAILY #30 chew 05/04/21 Clopidogrel [Plavix] 75 mg PO DAILY #30 tab 05/04/21 DULoxetine HCL [Cymbalta] 20 mg PO DAILY 30 Days #30 05/04/21 capsule. Doxazosin [Cardura] 4 mg PO DAILY #30 tab 05/04/21 Glimepiride [Amaryl] 2 mg PO DAILY #30 tab 05/04/21 INSULIN ASPART (NovoLOG) [NovoLOG 10 unit SQ AC-TID #1 vial 05/04/21 (formulary)] Insulin Glargine [Lantus Vial] 55 unit SQ HS #1 vial 05/04/21 Simvastatin [Zocor] 20 mg PO HS #30 tab 05/04/21 amLODIPine [Norvasc] 10 mg PO DAILY #30 tab 05/04/21 carvediloL [Coreg] 3.125 mg PO BID-W/MEALS #60 tab 05/04/21 hydroCHLOROthiazide [Hydrodiuril] 25 mg PO DAILY #30 tab 05/04/21 levETIRAcetam [Keppra] 500 mg PO Q12HR #60 tab 05/04/21 lisinopriL [Prinivil] 20 mg PO BID #60 tablet 05/04/21 metFORMIN HCL [Glucophage] 500 mg PO BID #60 tab 05/04/21 Clotrimazole Cream [Lotrimin Cream] 1 applic TOPICAL BID #15 gm 07/18/21 HYDROcodone/APAP 5-325MG [[place] 1 tab PO BID PRN #6 tab 07/18/21 5-325] Allergies Allergy/AdvReac Type Severity Reaction Status Date / Time atorvastatin [From Lipitor] Allergy Swelling Verified 07/18/21 12:58 ibuprofen Allergy Swelling Verified 07/18/21 12:58 pregabalin [From Lyrica] Allergy Swelling Verified 07/18/21 12:58 Review of Systems ROS Statement: Those systems with pertinent positive or pertinent negative responses have been documented in the HPI. ROS Other: All systems not noted in ROS Statement are negative. Past Medical History Past Medical History: Atrial Fibrillation, Diabetes Mellitus, Deep Vein Thrombosis (DVT), Hyperlipidemia, Hypertension, Myocardial Infarction ([place]), Pneumonia, Vascular Disorder Additional Past Medical History / Comment(s): uvitis glaucoma, PVD, dvt to lower left leg Last Myocardial Infarction Date:: unknown History of Any Multi-Drug Resistant Organisms: MRSA Date of last positivie culture/infection: 06/30/20 MDRO Source:: Left Leg Past Surgical History: Hernia Repair, Orthopedic Surgery Additional Past Surgical History / Comment(s): aortgram w/ runnoff, eye surg implant, bilateral knee SX, left vein stripping in 02/2020 x2, vein graft and toe amputation Past Anesthesia/Blood Transfusion Reactions: No Reported Reaction Additional Past Anesthesia/Blood Transfusion Reaction / Comment(s): no hx blood transfusion Past Psychological History: No Psychological Hx Reported Smoking Status: Former smoker Past Alcohol Use History: Rare Past Drug Use History: Marijuana - Past Family History Mother History Unknown: Yes Brother(s) Family Medical History: COPD Additional Family Medical History / Comment(s): passed from COPD Father Family Medical History: Myocardial Infarction ([place]) Additional Family Medical History / Comment(s): passed from [place] General Exam Limitations: no limitations General appearance: alert, in no apparent distress Head exam: Present: atraumatic, normocephalic Eye exam: Present: normal appearance, PERRL ENT exam: Present: normal exam Neck exam: Present: normal inspection. Absent: tenderness Respiratory exam: Present: normal lung sounds bilaterally. Absent: respiratory distress, wheezes Cardiovascular Exam: Present: regular rate, normal rhythm Extremities exam: Present: other (Superficial fungal infection of the left foot at the base of the digits. Presentation of the great toe on the left, dorsalis pedal pulses 2+. No signs of infection) Course Vital Signs 07/18/21 12:53 Temperature 97.9 F Pulse Rate 83 Respiratory 20 Rate Blood Pressure 134/78 O2 Sat by Pulse 95 Oximetry Medical Decision Making - Medical Decision Making 55-year-old male with topical fungal infection of the left foot. There is no other infectious signs or symptoms. There's been no injury. Patient states he's had pain in his foot for 1 year after his great toe amputation. I do recommend he follows up with his surgeon regarding this pain or specifically his primary care physician. He is prescribed clotrimazole. Disposition Clinical Impression: Left foot pain, Fungal dermatitis Disposition: HOME SELF-CARE Condition: Good Instructions (If sedation given, give patient instructions): Arthralgia (ED) Prescriptions: Clotrimazole Cream [Lotrimin Cream] 1 applic TOPICAL BID #15 gm HYDROcodone/APAP 5-325MG [[place] 5-325] 1 tab PO BID PRN #6 tab PRN Reason: Pain Is patient prescribed a controlled substance at d/c from ED?: No Referrals: Betito Romo MD [Primary Care Provider] - 1-2 days Stephen Dennison DO [Doctor of Osteopathic Medicine] - 1-2 days Time of Disposition: 13:13
== END 2021-07-18 13:27 | disposition home or self-care (01) ==
LOC: EC 12:50
DX: M79.672 Pain in left foot (principal); B36.9 Superficial mycosis, unspecified; I48.91 Unspecified atrial fibrillation; E11.51 Type 2 diabetes mellitus with diabetic peripheral angiopathy without gangrene; E78.5 Hyperlipidemia, unspecified; I10 Essential (primary) hypertension; I25.2 Old myocardial infarction; F12.90 Cannabis use, unspecified, uncomplicated; Z87.891 Personal history of nicotine dependence; Z79.82 Long term (current) use of aspirin; Z79.02 Long term (current) use of antithrombotics/antiplatelets; Z79.4 Long term (current) use of insulin; Z88.1 Allergy status to other antibiotic agents; Z88.6 Allergy status to analgesic agent; Z86.718 Personal history of other venous thrombosis and embolism
CPT/HCPCS: 99283

== ENCOUNTER → 2021-07-18 | Outpatient (CLI) | payer MEDICARE, OTHER ==
[2021-07-18 22:59] LABS: African American GFR (CKD) 73.6 (60.0-200.0); Albumin 4.2 g/dL (3.8-4.9); Albumin/Globulin Ratio 1.65 (1.60-3.17); Anion Gap 12.9 mmol/L (4.00-12.00); BUN/Creat Ratio 11.84 Ratio (12.00-20.00); Blood Urea Nitrogen 14.8 mg/dL (9.0-27.0); Calcium 9.8 mg/dL (8.7-10.3); Carbon Dioxide 22.4 mmol/L (21.6-31.8); Globulin 2.5 g/dL (1.6-3.3); Non-African American GFR(CKD) 63.5 (60.0-200.0); Potassium 4.6 mmol/L (3.5-5.5); Total Bilirubin 0.5 mg/dL (0.30-1.20); Total Protein 6.7 g/dL (6.2-8.2)
== END | disposition home or self-care (01) ==
LOC: LABWHC1 12:28
PROVIDERS: ATTEND Internal Medicine
DX: E78.5 Hyperlipidemia, unspecified (principal); E66.9 Obesity, unspecified
CPT/HCPCS: 36415; 80053; 83036

== ENCOUNTER 2021-08-15 01:11 | Inpatient (IN) | payer MEDICARE, OTHER ==
[2021-08-15 01:30] LABS: Glucose,Whole Blood 519 mg/dL (75-99)
[2021-08-15] MEDS ORDERED: SODIUM CHLORIDE 0.9% 500 ML 500 ML IV STA (02:28)
[2021-08-15] MEDS ORDERED: SODIUM CHLORIDE 0.9% 1,000 ML IV STA ×2 (02:28)
[2021-08-15] MEDS ORDERED: PANTOPRAZOLE 40 MG/10 ML VIAL IVP STA (02:29)
[2021-08-15] MEDS ORDERED: ONDANSETRON 4 MG/2 ML VIAL IVP STA (02:29)
--- NOTE | 2021-08-15 02:30 | ED ---
Recheck HPI - General Chief Complaint: Recheck/Abnormal Lab/Rx Stated Complaint: Diabetic Issue Time Seen by Provider: 08/15/21 02:26 Source: patient, RN notes reviewed, old records reviewed Mode of arrival: wheelchair Limitations: no limitations - History of Present Illness Initial Comments: This is a 55-year-old male to the ER today for multiple complaints. Patient's main complaint is elevated blood sugar weakness not feeling well. Generalized body aches and pains. A she also has significant nausea vomiting which is unable control at home. No travel history no sick contacts denies not taking his medications no drugs or alcohol. MD Complaint: abnormal lab (Elevated blood sugar) -: days(s) Returns Today for: Called Because of Abnormal Lab/Test, persistent/worsening pain related to initial visit Symptoms Since Prior Visit: worsening pain Context: called for abnormal lab result Associated Symptoms: nausea, abdominal pain Treatments Prior to Arrival: Given Pain Meds on - Related Data Home Medications Medication Instructions Recorded Confirmed Insulin Glargine [Lantus Vial] 65 unit SQ HS 08/15/21 08/15/21 lisinopriL [Prinivil] 20 mg PO DAILY 08/15/21 08/15/21 Previous Rx's Medication Instructions Recorded Aspirin 81 mg PO DAILY #30 chew 05/04/21 Clopidogrel [Plavix] 75 mg PO DAILY #30 tab 05/04/21 DULoxetine HCL [Cymbalta] 20 mg PO DAILY 30 Days #30 05/04/21 capsule. Glimepiride [Amaryl] 2 mg PO DAILY #30 tab 05/04/21 INSULIN ASPART (NovoLOG) [NovoLOG 10 unit SQ AC-TID #1 vial 05/04/21 (formulary)] amLODIPine [Norvasc] 10 mg PO DAILY #30 tab 05/04/21 carvediloL [Coreg] 3.125 mg PO BID-W/MEALS #60 tab 05/04/21 hydroCHLOROthiazide [Hydrodiuril] 25 mg PO DAILY #30 tab 05/04/21 Allergies Allergy/AdvReac Type Severity Reaction Status Date / Time atorvastatin [From Lipitor] Allergy Swelling Verified 08/15/21 07:42 ibuprofen Allergy Swelling Verified 08/15/21 07:42 pregabalin [From Lyrica] Allergy Swelling Verified 08/15/21 07:42 Review of Systems ROS Statement: Those systems with pertinent positive or pertinent negative responses have been documented in the HPI. ROS Other: All systems not noted in ROS Statement are negative. Past Medical History Past Medical History: Atrial Fibrillation, Diabetes Mellitus, Deep Vein Thrombosis (DVT), Hyperlipidemia, Hypertension, Myocardial Infarction ([place]), Pneumonia, Vascular Disorder Additional Past Medical History / Comment(s): uvitis glaucoma, PVD, dvt to lower left leg Last Myocardial Infarction Date:: unknown History of Any Multi-Drug Resistant Organisms: MRSA Date of last positivie culture/infection: 06/30/20 MDRO Source:: Left Leg Past Surgical History: Hernia Repair, Orthopedic Surgery Additional Past Surgical History / Comment(s): aortgram w/ runnoff, eye surg implant, bilateral knee SX, left vein stripping in 02/2020 x2, vein graft and toe amputation Past Anesthesia/Blood Transfusion Reactions: No Reported Reaction Additional Past Anesthesia/Blood Transfusion Reaction / Comment(s): no hx blood transfusion Past Psychological History: No Psychological Hx Reported Smoking Status: Former smoker Past Alcohol Use History: Rare Past Drug Use History: Marijuana - Past Family History Mother History Unknown: Yes Brother(s) Family Medical History: COPD Additional Family Medical History / Comment(s): passed from COPD Father Family Medical History: Myocardial Infarction ([place]) Additional Family Medical History / Comment(s): passed from [place] General Exam Limitations: no limitations General appearance: alert, in no apparent distress Head exam: Present: atraumatic, normocephalic, normal inspection Eye exam: Present: normal appearance, PERRL, EOMI. Absent: scleral icterus, conjunctival injection, periorbital swelling ENT exam: Present: normal exam, mucous membranes moist Neck exam: Present: normal inspection. Absent: tenderness, meningismus, lymphadenopathy Respiratory exam: Present: normal lung sounds bilaterally. Absent: respiratory distress, wheezes, rales, rhonchi, stridor Cardiovascular Exam: Present: normal rhythm, tachycardia, normal heart sounds. Absent: systolic murmur, diastolic murmur, rubs, gallop, clicks GI/Abdominal exam: Present: soft, normal bowel sounds. Absent: distended, tenderness, guarding, rebound, rigid Extremities exam: Present: normal inspection, full ROM, normal capillary refill. Absent: tenderness, pedal edema, joint swelling, calf tenderness Back exam: Present: normal inspection Neurological exam: Present: alert, oriented X3, CN II-XII intact Psychiatric exam: Present: normal affect, normal mood Skin exam: Present: warm, dry, intact, normal color. Absent: rash Course Vital Signs 08/15/21 08/15/21 08/15/21 01:20 03:25 04:16 Temperature 97.9 F Pulse Rate 113 H 107 H 106 H Pulse Rate [ Pulse Oximetery ] Respiratory 26 H 24 22 Rate Blood Pressure 125/78 145/91 153/95 Blood Pressure [Left Arm] O2 Sat by Pulse 100 95 Oximetry 08/15/21 08/15/21 08/15/21 05:34 06:41 10:00 Temperature 98.3 F Pulse Rate 102 H Pulse Rate [ 85 Pulse Oximetery ] Respiratory 16 18 Rate Blood Pressure 132/81 130/70 Blood Pressure 144/72 [Left Arm] O2 Sat by Pulse 100 Oximetry 08/15/21 08/15/21 08/15/21 13:10 16:52 18:39 Temperature 98.6 F 98.2 F 98.0 F Pulse Rate 86 78 Pulse Rate [ 92 Pulse Oximetery ] Respiratory 18 20 18 Rate Blood Pressure 138/74 128/76 Blood Pressure [Left Arm] O2 Sat by Pulse 97 98 98 Oximetry 08/15/21 20:00 Temperature 98.3 F Pulse Rate Pulse Rate [ 84 Pulse Oximetery ] Respiratory 16 Rate Blood Pressure Blood Pressure 145/71 [Left Arm] O2 Sat by Pulse 100 Oximetry - Reevaluation(s) Reevaluation #1: 08/15/21 00:04 Medical record is reviewed Reevaluation #2: Patient's symptoms remain persistent here in the ER Persistent nausea vomiting Medical Decision Making - Medical Decision Making 55 male to the emergency for today. Patient presents today for evaluation coming in for evaluation of nausea vomiting and elevated blood sugar. Patient will be admitted for blood sugar control IV fluid resuscitation - Lab Data Result diagrams: 08/15/21 02:59 08/15/21 13:19 Lab Results 08/15/21 08/15/21 08/15/21 Range/Units 01:26 02:59 02:59 WBC 18.9 H (3.8-10.6) k/uL RBC 5.28 (4.30-5.90) m/uL Hgb 15.8 (13.0-17.5) gm/dL Hct 46.9 (39.0-53.0) % MCV 88.8 (80.0-100.0) fL MCH 29.8 (25.0-35.0) pg MCHC 33.6 (31.0-37.0) g/dL RDW 12.8 (11.5-15.5) % Plt Count 330 (150-450) k/uL MPV 7.7 Neutrophils % 87 % Lymphocytes % 6 % Monocytes % 6 % Eosinophils % 1 % Basophils % 0 % Neutrophils # 16.4 H (1.3-7.7) k/uL Lymphocytes # 1.1 (1.0-4.8) k/uL Monocytes # 1.1 H (0-1.0) k/uL Eosinophils # 0.1 (0-0.7) k/uL Basophils # 0.0 (0-0.2) k/uL Sodium (137-145) mmol/L Potassium (3.5-5.1) mmol/L Chloride (98-107) mmol/L Carbon Dioxide (22-30) mmol/L Anion Gap mmol/L BUN (9-20) mg/dL Creatinine (0.66-1.25) mg/dL Est GFR (CKD-EPI)AfAm (>60 ml/min/1.73 sqM) Est GFR (CKD-EPI)NonAf (>60 ml/min/1.73 sqM) Glucose (74-99) mg/dL POC Glucose (mg/dL) 519 H (75-99) mg/dL POC Glu Nursing Attendant ID Calcium (8.4-10.2) mg/dL Phosphorus (2.5-4.5) mg/dL Magnesium (1.6-2.3) mg/dL Total Bilirubin (0.2-1.3) mg/dL AST (17-59) U/L ALT (4-49) U/L Alkaline Phosphatase (38-126) U/L Total Protein (6.3-8.2) g/dL Albumin (3.5-5.0) g/dL Urine Color Light Yellow Urine Appearance Clear (Clear) Urine pH 5.0 (5.0-8.0) Ur Specific [place] 1.022 (1.001-1.035) Urine Protein 1+ H (Negative) Urine Glucose (UA) 4+ H (Negative) Urine Ketones 2+ H (Negative) Urine Blood Negative (Negative) Urine Nitrite Negative (Negative) Urine Bilirubin Negative (Negative) Urine Urobilinogen <2.0 (<2.0) mg/dL Ur Leukocyte Esterase Negative (Negative) Urine RBC <1 (0-5) /hpf Urine WBC 1 (0-5) /hpf Ur Squamous Epith Cells 1 (0-4) /hpf Urine Bacteria Rare H (None) /hpf Hyaline Casts 1 (0-2) /lpf Urine Mucus Rare H (None) /hpf Acetone, Qual (Negative) 08/15/21 Range/Units 02:59 WBC (3.8-10.6) k/uL RBC (4.30-5.90) m/uL Hgb (13.0-17.5) gm/dL Hct (39.0-53.0) % MCV (80.0-100.0) fL MCH (25.0-35.0) pg MCHC (31.0-37.0) g/dL RDW (11.5-15.5) % Plt Count (150-450) k/uL MPV Neutrophils % % Lymphocytes % % Monocytes % % Eosinophils % % Basophils % % Neutrophils # (1.3-7.7) k/uL Lymphocytes # (1.0-4.8) k/uL Monocytes # (0-1.0) k/uL Eosinophils # (0-0.7) k/uL Basophils # (0-0.2) k/uL Sodium 123 L (137-145) mmol/L Potassium 4.8 (3.5-5.1) mmol/L Chloride 83 L (98-107) mmol/L Carbon Dioxide 14 L (22-30) mmol/L Anion Gap 26 mmol/L BUN 53 H (9-20) mg/dL Creatinine 1.83 H (0.66-1.25) mg/dL Est GFR (CKD-EPI)AfAm 46 (>60 ml/min/1.73 sqM) Est GFR (CKD-EPI)NonAf 40 (>60 ml/min/1.73 sqM) Glucose 527 H* (74-99) mg/dL POC Glucose (mg/dL) (75-99) mg/dL POC Glu Nursing Attendant ID Calcium 9.5 (8.4-10.2) mg/dL Phosphorus 6.4 H (2.5-4.5) mg/dL Magnesium 2.4 H (1.6-2.3) mg/dL Total Bilirubin 1.3 (0.2-1.3) mg/dL AST 26 (17-59) U/L ALT 21 (4-49) U/L Alkaline Phosphatase 97 (38-126) U/L Total Protein 7.4 (6.3-8.2) g/dL Albumin 4.5 (3.5-5.0) g/dL Urine Color Urine Appearance (Clear) Urine pH (5.0-8.0) Ur Specific [place] (1.001-1.035) Urine Protein (Negative) Urine Glucose (UA) (Negative) Urine Ketones (Negative) Urine Blood (Negative) Urine Nitrite (Negative) Urine Bilirubin (Negative) Urine Urobilinogen (<2.0) mg/dL Ur Leukocyte Esterase (Negative) Urine RBC (0-5) /hpf Urine WBC (0-5) /hpf Ur Squamous Epith Cells (0-4) /hpf Urine Bacteria (None) /hpf Hyaline Casts (0-2) /lpf Urine Mucus (None) /hpf Acetone, Qual Positive (Negative) - EKG Data -: EKG Interpreted by Me (EKG is sinus tachycardia 107. 132 QRS 74 QTc 424) Disposition Clinical Impression: Hyperglycemia, Dehydration, Uncontrolled diabetes mellitus Disposition: ADMITTED IP TO THIS HOSP Condition: Fair Is patient prescribed a controlled substance at d/c from ED?: No
[2021-08-15 03:30] LABS: Basophils % (A) 0 %; Eosinophils # (A) 0.1 k/uL (0-0.7); Eosinophils % (A) 1 %; HCT 46.9 % (39.0-53.0); HGB 15.8 gm/dL (13.0-17.5); Lymphocytes # (A) 1.1 k/uL (1.0-4.8); Lymphocytes % (A) 6 %; MCH 29.8 pg (25.0-35.0); MCHC 33.6 g/dL (31.0-37.0); MCV 88.8 fL (80.0-100.0); Mean Platelet Volume 7.7; Monocytes # (A) 1.1 k/uL (0-1.0); Monocytes % (A) 6 %; Neutrophils # (A) 16.4 k/uL (1.3-7.7); Neutrophils % (A) 87 %; Platelet Count 330 k/uL (150-450); RBC 5.28 m/uL (4.30-5.90); RDW 12.8 % (11.5-15.5); WBC 18.9 k/uL (3.8-10.6)
[2021-08-15 03:32] LABS: Appearance,Urine Clear (Clear); Bacteria,Urine Rare /hpf; Bilirubin,Urine Negative (Negative); Blood,Urine Negative (Negative); Color,Urine Light Yellow; Glucose,Urine (UA) 4+ (Negative); Hyaline Casts,Urine 1 /lpf (0-2); Leukocyte Esterase,Urine Negative (Negative); Mucus,Urine Rare /hpf; Nitrite,Urine Negative (Negative); Protein,Urine 1+ (Negative); RBC,Urine <1 /hpf (0-5); Specific Gravity,Urine 1.022 (1.001-1.035); Squamous Epithelial Cell,Urine 1 /hpf (0-4); Urobilinogen,Urine <2.0 mg/dL (<2.0); WBC,Urine 1 /hpf (0-5)
[2021-08-15 03:39] LABS: Ketones,Urine 2+ (Negative)
[2021-08-15 03:42] LABS: ALT 21 U/L (4-49); AST 26 U/L (17-59); African American GFR (CKD) 46 (>60 ml/min/1.73 sqM); Albumin 4.5 g/dL (3.5-5.0); Alkaline Phosphatase 97 U/L (38-126); Anion Gap 26 mmol/L; Blood Urea Nitrogen 53 mg/dL (9-20); Calcium 9.5 mg/dL (8.4-10.2); Carbon Dioxide 14 mmol/L (22-30); Chloride 83 mmol/L (98-107); Magnesium 2.4 mg/dL (1.6-2.3); Non-African American GFR(CKD) 40 (>60 ml/min/1.73 sqM); Phosphorus 6.4 mg/dL (2.5-4.5); Potassium 4.8 mmol/L (3.5-5.1); Sodium 123 mmol/L (137-145); Total Bilirubin 1.3 mg/dL (0.2-1.3); Total Protein 7.4 g/dL (6.3-8.2)
[2021-08-15] MEDS ORDERED: SODIUM CHLORIDE 0.9% 1,000 ML IV SCH (05:00)
[2021-08-15] MEDS: INSULIN REGULAR 100 UNIT in SODIUM CHLORIDE 0.9% 100 ML IV SCH ×2 (05:08→15:24)
[2021-08-15 05:15] LABS: Glucose,Whole Blood 457 mg/dL (75-99)
[2021-08-15 05:34] LABS: Glucose 527 mg/dL (74-99)
[2021-08-15 06:11] LABS: Glucose,Whole Blood 475 mg/dL (75-99)
[2021-08-15 07:20] LABS: Glucose,Whole Blood 372 mg/dL (75-99)
[2021-08-15] MEDS: MAG HYDROX/AL HYDROX/SIMETH 30 ML, HYOSCYAMINE ELIXIR 10 ML, LIDOCAINE VISCOUS 2% 10 ML PO ONE ×6 (09:12→11:19)
[2021-08-15] MEDS: PANTOPRAZOLE 40 MG/10 ML VIAL IVP SCH (09:13)
[2021-08-15 09:20] LABS: Glucose,Whole Blood 263 mg/dL (75-99)
[2021-08-15] MEDS: CLOPIDOGREL 75 MG TAB PO SCH (10:36)
[2021-08-15] MEDS: carvediloL 3.125 MG TAB PO SCH ×2 (10:36→17:49)
[2021-08-15] MEDS: amLODIPine 10 MG TAB PO SCH (10:36)
[2021-08-15] MEDS: ASPIRIN 81 MG PO SCH (10:36)
[2021-08-15 10:37] LABS: Glucose,Whole Blood 155 mg/dL (75-99)
[2021-08-15] MEDS ORDERED: MAG HYDROX/AL HYDROX/SIMETH 30 ML CUP PO ONE (11:18)
[2021-08-15 11:50] LABS: Glucose,Whole Blood 215 mg/dL (75-99)
[2021-08-15 12:40] LABS: Glucose,Whole Blood 221 mg/dL (75-99)
[2021-08-15] MEDS: DEXTROSE 5%-0.45% NACL 1,000 ML IV SCH (13:07)
[2021-08-15] MEDS ORDERED: Magnesium Replacement Protocol 1 EACH MISC MISCELLANE PRN (13:26)
[2021-08-15] MEDS ORDERED: Potassium Replacement Protocol 1 EACH MISC MISCELLANE PRN (13:26)
--- NOTE | 2021-08-15 13:31 | P.HPIM ---
History of Present Illness H&P Date: 08/15/21 This is a 55-year-old male who presented to the after a 3 day history of feeling fatigued, abdominal pain, nausea. He denies any vomiting or diarrhea. Patient states that his blood sugar has been in 300s at home for the last couple days. Patient follows with Dr. Romo in the office. He denies fever or chills, denies chest pain, chest pressure, palpitations. He denies any cough or shortness of breath. Denies any tobacco use, quit smoking 30 years ago, daily marijuana use, denies alcohol use. Patient also has a recent history of cocaine abuse, most recently detected in urine was April 2021. At that time he required admission to the hospital for seizure-like activity. Past medical his tory includes type 2 diabetes mellitus, diagnosed 27 years ago, atrial fibrillation, not on anticoagulation, DVT, hyperlipidemia, hypertension, AL, pneumonia, uvitis glaucoma, peripheral vascular disease, MRSA left leg in 2019, total amputation. Echocardiogram completed in February 2021 shows low normal ejection fraction of 45-50% with inferior hypokinesis. Current medications included lisinopril, hydrochlorothiazide, carvedilol, amlodipine, Loxitane, Plavix, aspirin, patient takes Lantus 65 units at bedtime and NovoLog 10 units 3 times a day with meals. He also takes Amaryl which we will hold for now. Patient was admitted to the hospital for diabetic ketoacidosis, labs on admission show a blood sugar of 527, acetone positive, urinalysis also was positive for protein and glucose and ketones. Code PCR is not detected. Initial labs show white count of 18.9, sodium 123, chloride 83, CO2 14, BUN 53, creatinine 1.835, magnesium, 2.4, liver enzymes are within normal limits. Patient's anion gap is currently 26. Temperature is 98.6, heart rate 86, blood pressure 130/74 and he is 97% on room air. Patient is admitted to the hospital and started on insulin drip. REVIEW OF SYSTEMS: CONSTITUTIONAL: No fever, no malaise, Reports fatigue. HEENT: No recent visual problems or hearing problems. Denied any sore throat. CARDIOVASCULAR: No chest pain, orthopnea, PND, no palpitations, no syncope. PULMONARY: No shortness of breath, no cough, no hemoptysis. GASTROINTESTINAL: No diarrhea, no vomiting, reports nausea, reports abdominal pain NEUROLOGICAL: No headaches, no weakness, no numbness. HEMATOLOGICAL: Denies any bleeding or petechiae. GENITOURINARY: Denies any burning micturition, frequency, or urgency. MUSCULOSKELETAL/RHEUMATOLOGICAL: Denies any joint pain, swelling, or any muscle pain. ENDOCRINE: Denies any polyuria or polydipsia. The rest of the 14-point review of systems is negative. PHYSICAL EXAMINATION: GENERAL: The patient is alert and oriented x3, not in any acute distress. Well developed, well nourished. Pt is lethargic and keeps falling asleep during e xamination. HEENT: Pupils are round and equally reacting to light. EOMI. No scleral icterus. No conjunctival pallor. Normocephalic, atraumatic. No pharyngeal erythema. No thyromegaly. CARDIOVASCULAR: S1 and S2 present. No murmurs, rubs, or gallops. PULMONARY: Chest is clear to auscultation, no wheezing or crackles. ABDOMEN: Soft, nontender, nondistended, normoactive bowel sounds. No palpable or ganomegaly. MUSCULOSKELETAL: No joint swelling or deformity. EXTREMITIES: No cyanosis, clubbing, or pedal edema. NEUROLOGICAL: Gross neurological examination did not reveal any focal deficits. SKIN: No rashes. Assessment and Plan Assessment Diabetic Ketoacidosis secondary to decreased oral intake and volume depletion due to nausea, abdominal pain. 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% Hypertension Hyperlipidemia History of AL Peripheral vascular disorder s/p toe amputation History of DVT History of seizure, non compliant with medications, last seizure in Apr requiring hospitalization Daily THC use History of polysubstance abuse History of stroke Remote history of nicotine dependence GI prophylaxis: Protonix Plan Continue with Insulin infusion Transition to home insulin dose when anion gap <10 Resume home medications Hold lisinopril Check urine drug toxicology Repeat labs tomorrow Past Medical History Past Medical History: Atrial Fibrillation, Diabetes Mellitus, Deep Vein Thrombosis (DVT), Hyperlipidemia, Hypertension, Myocardial Infarction (AL), Pneumonia, Vascular Disorder Additional Past Medical History / Comment(s): uvitis glaucoma, PVD, dvt to lower left leg Last Myocardial Infarction Date:: unknown History of Any Multi-Drug Resistant Organisms: MRSA Date of last positivie culture/infection: 06/30/20 MDRO Source:: Left Leg Past Surgical History: Hernia Repair, Orthopedic Surgery Additional Past Surgical History / Comment(s): aortgram w/ runnoff, eye surg implant, bilateral knee SX, left vein stripping in 02/2020 x2, vein graft and toe amputation Past Anesthesia/Blood Transfusion Reactions: No Reported Reaction Additional Past Anesthesia/Blood Transfusion Reaction / Comment(s): no hx blood transfusion Past Psychological History: No Psychological Hx Reported Smoking Status: Former smoker Past Alcohol Use History: Rare Past Drug Use History: Marijuana - Past Family History Mother History Unknown: Yes Brother(s) Family Medical History: COPD Additional Family Medical History / Comment(s): passed from COPD Father Family Medical History: Myocardial Infarction (AL) Additional Family Medical History / Comment(s): passed from AL Medications and Allergies Home Medications Medication Instructions Recorded Confirmed Type Aspirin 81 mg PO DAILY #30 chew 05/04/21 08/15/21 Rx Clopidogrel [Plavix] 75 mg PO DAILY #30 tab 05/04/21 08/15/21 Rx DULoxetine HCL [Cymbalta] 20 mg PO DAILY 30 Days #30 05/04/21 08/15/21 Rx capsule. Glimepiride [Amaryl] 2 mg PO DAILY #30 tab 05/04/21 08/15/21 Rx INSULIN ASPART (NovoLOG) [NovoLOG 10 unit SQ AC-TID #1 vial 05/04/21 08/15/21 Rx (formulary)] amLODIPine [Norvasc] 10 mg PO DAILY #30 tab 05/04/21 08/15/21 Rx carvediloL [Coreg] 3.125 mg PO BID-W/MEALS #60 tab 05/04/21 08/15/21 Rx hydroCHLOROthiazide [Hydrodiuril] 25 mg PO DAILY #30 tab 05/04/21 08/15/21 Rx Insulin Glargine [Lantus Vial] 65 unit SQ HS 08/15/21 08/15/21 History lisinopriL [Prinivil] 20 mg PO DAILY 08/15/21 08/15/21 History Allergies Allergy/AdvReac Type Severity Reaction Status Date / Time atorvastatin [From Lipitor] Allergy Swelling Verified 08/15/21 07:42 ibuprofen Allergy Swelling Verified 08/15/21 07:42 pregabalin [From Lyrica] Allergy Swelling Verified 08/15/21 07:42 Physical Exam Vitals: Vital Signs Temp Pulse Resp BP Pulse Ox 08/15/21 10:00 130/70 08/15/21 06:41 102 H 18 132/81 08/15/21 04:16 106 H 22 153/95 08/15/21 03:25 107 H 24 145/91 95 08/15/21 01:20 97.9 F 113 H 26 H 125/78 100 Intake and Output 08/14/21 08/15/21 08/15/21 22:59 06:59 14:59 Intake Total 9.004 Balance 9.004 Intake: Intake, IV Titration 9.004 Amount Insulin Regular 100 unit 9.004 In Sodium Chloride 0.9% 100 ml @ 0.1 UNITS/KG/HR 8.063 mls/hr IV .[id number] [facility] Rx#:[id number] Other: Weight 79.832 kg Results CBC & Chem 7: 08/15/21 02:59 08/15/21 02:59 Labs: Abnormal Lab Results - Last 24 Hours (Table) 08/15/21 08/15/21 08/15/21 Range/Units 01:26 02:59 02:59 WBC 18.9 H (3.8-10.6) k/uL Neutrophils # 16.4 H (1.3-7.7) k/uL Monocytes # 1.1 H (0-1.0) k/uL Sodium (137-145) mmol/L Chloride (98-107) mmol/L Carbon Dioxide (22-30) mmol/L BUN (9-20) mg/dL Creatinine (0.66-1.25) mg/dL Glucose (74-99) mg/dL POC Glucose (mg/dL) 519 H (75-99) mg/dL Phosphorus (2.5-4.5) mg/dL Magnesium (1.6-2.3) mg/dL Urine Protein 1+ H (Negative) Urine Glucose (UA) 4+ H (Negative) Urine Ketones 2+ H (Negative) Urine Bacteria Rare H (None) /hpf Urine Mucus Rare H (None) /hpf 08/15/21 08/15/21 08/15/21 Range/Units 02:59 05:06 06:10 WBC (3.8-10.6) k/uL Neutrophils # (1.3-7.7) k/uL Monocytes # (0-1.0) k/uL Sodium 123 L (137-145) mmol/L Chloride 83 L (98-107) mmol/L Carbon Dioxide 14 L (22-30) mmol/L BUN 53 H (9-20) mg/dL Creatinine 1.83 H (0.66-1.25) mg/dL Glucose 527 H* (74-99) mg/dL POC Glucose (mg/dL) 457 H 475 H (75-99) mg/dL Phosphorus 6.4 H (2.5-4.5) mg/dL Magnesium 2.4 H (1.6-2.3) mg/dL Urine Protein (Negative) Urine Glucose (UA) (Negative) Urine Ketones (Negative) Urine Bacteria (None) /hpf Urine Mucus (None) /hpf 08/15/21 08/15/21 08/15/21 Range/Units 07:18 09:18 10:34 WBC (3.8-10.6) k/uL Neutrophils # (1.3-7.7) k/uL Monocytes # (0-1.0) k/uL Sodium (137-145) mmol/L Chloride (98-107) mmol/L Carbon Dioxide (22-30) mmol/L BUN (9-20) mg/dL Creatinine (0.66-1.25) mg/dL Glucose (74-99) mg/dL POC Glucose (mg/dL) 372 H 263 H 155 H (75-99) mg/dL Phosphorus (2.5-4.5) mg/dL Magnesium (1.6-2.3) mg/dL Urine Protein (Negative) Urine Glucose (UA) (Negative) Urine Ketones (Negative) Urine Bacteria (None) /hpf Urine Mucus (None) /hpf 08/15/21 08/15/21 Range/Units 11:49 12:28 WBC (3.8-10.6) k/uL Neutrophils # (1.3-7.7) k/uL Monocytes # (0-1.0) k/uL Sodium (137-145) mmol/L Chloride (98-107) mmol/L Carbon Dioxide (22-30) mmol/L BUN (9-20) mg/dL Creatinine (0.66-1.25) mg/dL Glucose (74-99) mg/dL POC Glucose (mg/dL) 215 H 221 H (75-99) mg/dL Phosphorus (2.5-4.5) mg/dL Magnesium (1.6-2.3) mg/dL Urine Protein (Negative) Urine Glucose (UA) (Negative) Urine Ketones (Negative) Urine Bacteria (None) /hpf Urine Mucus (None) /hpf Assessment and Plan Time with Patient: Greater than 30
[2021-08-15] MEDS: DULoxetine HCL 20 MG CAPSULE.DR PO SCH (13:52)
[2021-08-15 14:20] LABS: Phosphorus 3.5 mg/dL (2.5-4.5); Potassium 4.4 mmol/L (3.5-5.1)
[2021-08-15 14:28] LABS: Glucose,Whole Blood 198 mg/dL (75-99)
[2021-08-15 15:24] LABS: Glucose,Whole Blood 148 mg/dL (75-99)
[2021-08-15 16:42] LABS: Glucose,Whole Blood 134 mg/dL (75-99)
[2021-08-15 17:32] LABS: Glucose,Whole Blood 115 mg/dL (75-99)
[2021-08-15 18:45] LABS: Glucose,Whole Blood 129 mg/dL (75-99)
[2021-08-15 20:31] LABS: Glucose,Whole Blood 154 mg/dL (75-99)
[2021-08-15 21:13] LABS: Glucose,Whole Blood 163 mg/dL (75-99)
[2021-08-15 22:16] LABS: Glucose,Whole Blood 198 mg/dL (75-99)
[2021-08-15 23:30] LABS: Glucose,Whole Blood 184 mg/dL (75-99)
[2021-08-16 00:08] LABS: Glucose,Whole Blood 196 mg/dL (75-99)
[2021-08-16 00:33] LABS: African American GFR (CKD) >90 (>60 ml/min/1.73 sqM); Anion Gap 11 mmol/L; Blood Urea Nitrogen 31 mg/dL (9-20); Carbon Dioxide 19 mmol/L (22-30); Chloride 97 mmol/L (98-107); Glucose 194 mg/dL (74-99); Non-African American GFR(CKD) 80 (>60 ml/min/1.73 sqM); Phosphorus 2.4 mg/dL (2.5-4.5); Sodium 127 mmol/L (137-145)
[2021-08-16 01:07] LABS: Glucose,Whole Blood 219 mg/dL (75-99)
[2021-08-16 02:53] LABS: Glucose,Whole Blood 218 mg/dL (75-99)
[2021-08-16 03:40] LABS: Glucose,Whole Blood 228 mg/dL (75-99)
[2021-08-16 04:52] LABS: Glucose,Whole Blood 239 mg/dL (75-99)
[2021-08-16 05:17] LABS: Glucose,Whole Blood 271 mg/dL (75-99)
[2021-08-16 06:23] LABS: Glucose,Whole Blood 237 mg/dL (75-99)
[2021-08-16] MEDS: carvediloL 3.125 MG TAB PO SCH ×2 (06:55→16:06)
[2021-08-16 07:10] LABS: Glucose,Whole Blood 219 mg/dL (75-99)
[2021-08-16 08:12] LABS: Glucose,Whole Blood 229 mg/dL (75-99)
[2021-08-16 08:34] LABS: African American GFR (CKD) >90 (>60 ml/min/1.73 sqM); Anion Gap 12 mmol/L; Blood Urea Nitrogen 25 mg/dL (9-20); Calcium 8.4 mg/dL (8.4-10.2); Carbon Dioxide 19 mmol/L (22-30); Chloride 95 mmol/L (98-107); Glucose 217 mg/dL (74-99); Non-African American GFR(CKD) >90 (>60 ml/min/1.73 sqM); Potassium 3.8 mmol/L (3.5-5.1); Sodium 126 mmol/L (137-145)
[2021-08-16 08:45] LABS: Basophils % (A) 0 %; Eosinophils % (A) 0 %; HCT 41.4 % (39.0-53.0); HGB 14.6 gm/dL (13.0-17.5); Lymphocytes # (A) 1.8 k/uL (1.0-4.8); Lymphocytes % (A) 13 %; MCH 30.5 pg (25.0-35.0); MCHC 35.3 g/dL (31.0-37.0); MCV 86.4 fL (80.0-100.0); Mean Platelet Volume 7.9; Monocytes # (A) 1.1 k/uL (0-1.0); Monocytes % (A) 8 %; Neutrophils # (A) 10.6 k/uL (1.3-7.7); Neutrophils % (A) 78 %; Platelet Count 271 k/uL (150-450); RBC 4.79 m/uL (4.30-5.90); RDW 12.7 % (11.5-15.5); WBC 13.7 k/uL (3.8-10.6)
[2021-08-16 09:08] LABS: Glucose,Whole Blood 214 mg/dL (75-99)
[2021-08-16] MEDS: amLODIPine 10 MG TAB PO SCH (09:20)
[2021-08-16] MEDS: PANTOPRAZOLE 40 MG/10 ML VIAL IVP SCH (09:20)
[2021-08-16] MEDS: ASPIRIN 81 MG PO SCH (09:20)
[2021-08-16] MEDS: CLOPIDOGREL 75 MG TAB PO SCH (09:20)
[2021-08-16] MEDS: INSULIN REGULAR 100 UNIT in SODIUM CHLORIDE 0.9% 100 ML IV SCH (09:25)
[2021-08-16 10:13] LABS: Glucose,Whole Blood 212 mg/dL (75-99)
[2021-08-16 11:15] LABS: Glucose,Whole Blood 193 mg/dL (75-99)
[2021-08-16] MEDS: DULoxetine HCL 20 MG CAPSULE.DR PO SCH (11:34)
[2021-08-16 12:16] LABS: Glucose,Whole Blood 194 mg/dL (75-99)
[2021-08-16 13:03] LABS: Glucose,Whole Blood 191 mg/dL (75-99)
[2021-08-16 13:16] VITALS: BMI 27.6
[2021-08-16] MEDS: DEXTROSE 5%-0.45% NACL 1,000 ML IV SCH (13:32)
[2021-08-16 13:48] LABS: African American GFR (CKD) >90 (>60 ml/min/1.73 sqM); Anion Gap 8 mmol/L; Blood Urea Nitrogen 20 mg/dL (9-20); Calcium 8.4 mg/dL (8.4-10.2); Carbon Dioxide 24 mmol/L (22-30); Chloride 95 mmol/L (98-107); Glucose 197 mg/dL (74-99); Non-African American GFR(CKD) >90 (>60 ml/min/1.73 sqM); Potassium 3.7 mmol/L (3.5-5.1); Sodium 127 mmol/L (137-145)
[2021-08-16 14:02] LABS: Glucose,Whole Blood 178 mg/dL (75-99)
--- NOTE | 2021-08-16 15:10 | P.PN ---
Subjective Progress Note Date: 08/16/21 Principal diagnosis: Acute diabetic ketoacidosis Acute renal injury Hyponatremia 55-year-old male who presented to the after a 3 day history of feeling fatigued, abdominal pain, nausea. He denies any vomiting or diarrhea. Patient states that his blood sugar has been in 300s at home for the last couple days. Patient follows with Dr. Romo in the office. He denies fever or chills, denies chest pain, chest pressure, palpitations. He denies any cough or shortness of breath. Denies any tobacco use, quit smoking 30 years ago, daily marijuana use, denies alcohol use. Patient also has a recent history of cocaine abuse, most recently detected in urine was April 2021. At that time he required admission to the hospital for seizure-like activity. Past medical history includes type 2 diabetes mellitus, diagnosed 27 years ago, atrial fibrillation, not on anticoagulation, DVT, hyperlipidemia, hypertension, [place], pneumonia, uvitis glaucoma, peripheral vascular disease, MRSA left leg in 2019, total amputation. Echocardiogram completed in February 2021 shows low normal ejection fraction of 45- 50% with inferior hypokinesis. Current medications included lisinopril, hydrochlorothiazide, carvedilol, amlodipine, Loxitane, Plavix, aspirin, patient takes Lantus 65 units at bedtime and NovoLog 10 units 3 times a day with meals. He also takes Amaryl which we will hold for now. Patient was admitted to the hospital for diabetic ketoacidosis, labs on admission show a blood sugar of 527, acetone positive, urinalysis also was positive for protein and glucose and ketones. Code PCR is not detected. Initial labs show white count of 18.9, sodium 123, chloride 83, CO2 14, BUN 53, creatinine 1.835, magnesium, 2.4, liver enzymes are within normal limits. Patient's anion gap is currently 26. Temperature is 98.6, heart rate 86, blood pressure 130/74 and he is 97% on room air. Patient is admitted to the hospital and started on insulin drip. blood sugars are more stable this morning; anion gap has closed with bicarb of 24; we will discontinue IV insulin infusion and start patient on home regimen of insulin Objective - Vital Signs Vital signs: Vital Signs Temp 98.4 F 08/16/21 08:00 Pulse 92 08/16/21 08:00 Resp 16 08/16/21 08:00 BP 146/90 08/16/21 08:00 Pulse Ox 100 08/16/21 08:00 Intake & Output 08/15/21 08/16/21 08/16/21 18:59 06:59 18:59 Intake Total 101.299 206.805 6.772 Output Total 400 Balance 101.299 -193.195 6.772 Weight 70.8 kg Intake: Intake, IV Titration 101.299 206.805 6.772 Amount Dextrose 5%-0.45% NaCl 1, 200 000 ml @ 20 mls/hr IV . Q24H [facility] Rx#:[id number] Insulin Regular 100 unit 101.299 6.805 6.772 In Sodium Chloride 0.9% 100 ml @ 0.1 UNITS/KG/HR 8.063 mls/hr IV .[id number] [facility] Rx#:[id number] Output: Urine 400 Other: Voiding Method Urinal Urinal # Voids 1 - Exam GENERAL: The patient is alert and oriented x3, not in any acute distress. Well developed, well nourished. Pt is lethargic and keeps falling asleep during examination. HEENT: Pupils are round and equally reacting to light. EOMI. No scleral icterus. No conjunctival pallor. Normocephalic, atraumatic. No pharyngeal erythema. No thyromegaly. CARDIOVASCULAR: S1 and S2 present. No murmurs, rubs, or gallops. PULMONARY: Chest is clear to auscultation, no wheezing or crackles. ABDOMEN: Soft, nontender, nondistended, normoactive bowel sounds. No palpable organomegaly. MUSCULOSKELETAL: No joint swelling or deformity. EXTREMITIES: No cyanosis, clubbing, or pedal edema. NEUROLOGICAL: Gross neurological examination did not reveal any focal deficits. SKIN: No rashes. - Labs CBC & Chem 7: 08/16/21 07:24 08/16/21 13:23 Labs: Abnormal Lab Results - Last 24 Hours (Table) 08/15/21 08/15/21 08/15/21 Range/Units 11:49 12:28 13:19 WBC (3.8-10.6) k/uL Neutrophils # (1.3-7.7) k/uL Monocytes # (0-1.0) k/uL Sodium 128 L (137-145) mmol/L Chloride 97 L (98-107) mmol/L Carbon Dioxide 17 L (22-30) mmol/L BUN 44 H (9-20) mg/dL Creatinine 1.34 H (0.66-1.25) mg/dL Glucose 214 H (74-99) mg/dL POC Glucose (mg/dL) 215 H 221 H (75-99) mg/dL Phosphorus (2.5-4.5) mg/dL 08/15/21 08/15/21 08/15/21 Range/Units 14:25 15:22 16:41 WBC (3.8-10.6) k/uL Neutrophils # (1.3-7.7) k/uL Monocytes # (0-1.0) k/uL Sodium (137-145) mmol/L Chloride (98-107) mmol/L Carbon Dioxide (22-30) mmol/L BUN (9-20) mg/dL Creatinine (0.66-1.25) mg/dL Glucose (74-99) mg/dL POC Glucose (mg/dL) 198 H 148 H 134 H (75-99) mg/dL Phosphorus (2.5-4.5) mg/dL 08/15/21 08/15/21 08/15/21 Range/Units 17:30 18:43 19:59 WBC (3.8-10.6) k/uL Neutrophils # (1.3-7.7) k/uL Monocytes # (0-1.0) k/uL Sodium (137-145) mmol/L Chloride (98-107) mmol/L Carbon Dioxide (22-30) mmol/L BUN (9-20) mg/dL Creatinine (0.66-1.25) mg/dL Glucose (74-99) mg/dL POC Glucose (mg/dL) 115 H 129 H 154 H (75-99) mg/dL Phosphorus (2.5-4.5) mg/dL 08/15/21 08/15/21 08/15/21 Range/Units 21:11 22:15 23:02 WBC (3.8-10.6) k/uL Neutrophils # (1.3-7.7) k/uL Monocytes # (0-1.0) k/uL Sodium (137-145) mmol/L Chloride (98-107) mmol/L Carbon Dioxide (22-30) mmol/L BUN (9-20) mg/dL Creatinine (0.66-1.25) mg/dL Glucose (74-99) mg/dL POC Glucose (mg/dL) 163 H 198 H 184 H (75-99) mg/dL Phosphorus (2.5-4.5) mg/dL 08/15/21 08/16/21 08/16/21 Range/Units 23:38 00:05 01:03 WBC (3.8-10.6) k/uL Neutrophils # (1.3-7.7) k/uL Monocytes # (0-1.0) k/uL Sodium 127 L (137-145) mmol/L Chloride 97 L (98-107) mmol/L Carbon Dioxide 19 L (22-30) mmol/L BUN 31 H (9-20) mg/dL Creatinine (0.66-1.25) mg/dL Glucose 194 H (74-99) mg/dL POC Glucose (mg/dL) 196 H 219 H (75-99) mg/dL Phosphorus 2.4 L (2.5-4.5) mg/dL 08/16/21 08/16/21 08/16/21 Range/Units 02:50 03:20 04:31 WBC (3.8-10.6) k/uL Neutrophils # (1.3-7.7) k/uL Monocytes # (0-1.0) k/uL Sodium (137-145) mmol/L Chloride (98-107) mmol/L Carbon Dioxide (22-30) mmol/L BUN (9-20) mg/dL Creatinine (0.66-1.25) mg/dL Glucose (74-99) mg/dL POC Glucose (mg/dL) 218 H 228 H 239 H (75-99) mg/dL Phosphorus (2.5-4.5) mg/dL 08/16/21 08/16/21 08/16/21 Range/Units 05:05 06:08 07:08 WBC (3.8-10.6) k/uL Neutrophils # (1.3-7.7) k/uL Monocytes # (0-1.0) k/uL Sodium (137-145) mmol/L Chloride (98-107) mmol/L Carbon Dioxide (22-30) mmol/L BUN (9-20) mg/dL Creatinine (0.66-1.25) mg/dL Glucose (74-99) mg/dL POC Glucose (mg/dL) 271 H 237 H 219 H (75-99) mg/dL Phosphorus (2.5-4.5) mg/dL 08/16/21 08/16/21 08/16/21 Range/Units 07:24 07:24 07:24 WBC 13.7 H (3.8-10.6) k/uL Neutrophils # 10.6 H (1.3-7.7) k/uL Monocytes # 1.1 H (0-1.0) k/uL Sodium 126 L (137-145) mmol/L Chloride 95 L (98-107) mmol/L Carbon Dioxide 19 L (22-30) mmol/L BUN 25 H (9-20) mg/dL Creatinine (0.66-1.25) mg/dL Glucose 217 H (74-99) mg/dL POC Glucose (mg/dL) (75-99) mg/dL Phosphorus 2.0 L (2.5-4.5) mg/dL 08/16/21 08/16/21 08/16/21 Range/Units 08:09 09:06 10:10 WBC (3.8-10.6) k/uL Neutrophils # (1.3-7.7) k/uL Monocytes # (0-1.0) k/uL Sodium (137-145) mmol/L Chloride (98-107) mmol/L Carbon Dioxide (22-30) mmol/L BUN (9-20) mg/dL Creatinine (0.66-1.25) mg/dL Glucose (74-99) mg/dL POC Glucose (mg/dL) 229 H 214 H 212 H (75-99) mg/dL Phosphorus (2.5-4.5) mg/dL Assessment and Plan Assessment: Diabetic Ketoacidosis secondary to decreased oral intake and volume depletion due to nausea, abdominal pain. 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
[2021-08-16 16:45] LABS: Glucose,Whole Blood 232 mg/dL (75-99)
[2021-08-16] MEDS ORDERED: INSULIN NPH 300 UNIT/3 ML VIAL SQ ONE (20:00)
[2021-08-16 20:41] LABS: Glucose,Whole Blood 328 mg/dL (75-99)
[2021-08-16] MEDS ORDERED: INSULIN DETEMIR (LEVEMIR) 100 UNIT/ML SYR SQ SCH (21:00)
[2021-08-16] MEDS ORDERED: ONDANSETRON 4 MG/2 ML VIAL IVP PRN (21:18)
[2021-08-16] MEDS: INSULIN ASPART (NovoLOG) 100 UNIT/ML VIAL SQ SCH (21:30)
[2021-08-17 00:16] LABS: Urine Alcohol Negative (Negative); Urine Barbiturate Negative (Negative); Urine Cocaine Positive (Negative); Urine Methadone Negative (Negative); Urine Opiates Negative (Negative); Urine Phencyclidine Negative (Negative)
[2021-08-17 06:30] LABS: Glucose,Whole Blood 187 mg/dL (75-99)
[2021-08-17] MEDS: carvediloL 3.125 MG TAB PO SCH ×2 (06:41→18:11)
[2021-08-17] MEDS: INSULIN ASPART (NovoLOG) 100 UNIT/ML VIAL SQ SCH ×8 (06:42→21:07)
[2021-08-17 09:14] LABS: Glucose,Whole Blood 141 mg/dL (75-99)
[2021-08-17] MEDS: PANTOPRAZOLE 40 MG/10 ML VIAL IVP SCH (09:29)
[2021-08-17] MEDS: CLOPIDOGREL 75 MG TAB PO SCH (09:29)
[2021-08-17] MEDS: ASPIRIN 81 MG PO SCH (09:29)
[2021-08-17] MEDS: amLODIPine 10 MG TAB PO SCH (09:29)
[2021-08-17] MEDS: DULoxetine HCL 20 MG CAPSULE.DR PO SCH ×2 (11:09→11:34)
[2021-08-17] MEDS: DEXTROSE 5%-0.45% NACL 1,000 ML IV SCH ×3 (11:35→15:18)
[2021-08-17 11:41] LABS: Glucose,Whole Blood 170 mg/dL (75-99)
[2021-08-17 13:39] LABS: African American GFR (CKD) >90 (>60 ml/min/1.73 sqM); Anion Gap 8 mmol/L; Blood Urea Nitrogen 16 mg/dL (9-20); Calcium 8.7 mg/dL (8.4-10.2); Carbon Dioxide 25 mmol/L (22-30); Chloride 92 mmol/L (98-107); Glucose 192 mg/dL (74-99); Non-African American GFR(CKD) >90 (>60 ml/min/1.73 sqM); Potassium 3.7 mmol/L (3.5-5.1); Sodium 125 mmol/L (137-145)
[2021-08-17 16:58] LABS: Glucose,Whole Blood 195 mg/dL (75-99)
[2021-08-17] MEDS: MAG HYDROX/AL HYDROX/SIMETH 30 ML CUP PO SCH ×2 (18:56→21:08)
[2021-08-17 20:37] LABS: Glucose,Whole Blood 305 mg/dL (75-99)
[2021-08-17] MEDS ORDERED: INSULIN DETEMIR (LEVEMIR) 100 UNIT/ML SYR SQ SCH (21:00)
[2021-08-18 05:42] LABS: Glucose,Whole Blood 92 mg/dL (75-99)
[2021-08-18] MEDS: INSULIN ASPART (NovoLOG) 100 UNIT/ML VIAL SQ SCH ×6 (05:54→17:10)
[2021-08-18] MEDS: carvediloL 3.125 MG TAB PO SCH ×2 (06:20→17:10)
[2021-08-18 09:08] LABS: African American GFR (CKD) >90 (>60 ml/min/1.73 sqM); Anion Gap 8 mmol/L; Blood Urea Nitrogen 12 mg/dL (9-20); Calcium 9.1 mg/dL (8.4-10.2); Carbon Dioxide 24 mmol/L (22-30); Chloride 97 mmol/L (98-107); Glucose 72 mg/dL (74-99); Non-African American GFR(CKD) >90 (>60 ml/min/1.73 sqM); Potassium 3.6 mmol/L (3.5-5.1); Sodium 129 mmol/L (137-145)
[2021-08-18] MEDS: ASPIRIN 81 MG PO SCH (09:49)
[2021-08-18] MEDS: CLOPIDOGREL 75 MG TAB PO SCH (09:49)
[2021-08-18] MEDS: amLODIPine 10 MG TAB PO SCH (09:49)
[2021-08-18] MEDS: PANTOPRAZOLE 40 MG/10 ML VIAL IVP SCH (09:50)
[2021-08-18] MEDS: MAG HYDROX/AL HYDROX/SIMETH 30 ML CUP PO SCH ×3 (09:51→17:12)
[2021-08-18] MEDS: DULoxetine HCL 20 MG CAPSULE.DR PO SCH (09:51)
[2021-08-18 10:33] VITALS: RESP 18; TEMP 98.6
[2021-08-18] MEDS ORDERED: POTASSIUM CHLORIDE ER 20 MEQ TAB.ER PO SCH (11:00)
[2021-08-18 12:07] LABS: Glucose,Whole Blood 97 mg/dL (75-99)
[2021-08-18 16:39] VITALS: BP 145/91; PULSE 85
[2021-08-18] MEDS: DEXTROSE 5%-0.45% NACL 1,000 ML IV SCH (16:40)
[2021-08-18 17:03] LABS: Glucose,Whole Blood 177 mg/dL (75-99)
--- NOTE | 2021-08-18 17:56 | P.PN ---
Subjective Progress Note Date: 08/17/21 Principal diagnosis: Acute diabetic ketoacidosis Acute renal injury Hyponatremia 55-year-old male who presented to the after a 3 day history of feeling fatigued, abdominal pain, nausea. He denies any vomiting or diarrhea. Patient states that his blood sugar has been in 300s at home for the last couple days. Patient follows with Dr. Romo in the office. He denies fever or chills, denies chest pain, chest pressure, palpitations. He denies any cough or shortness of breath. Denies any tobacco use, quit smoking 30 years ago, daily marijuana use, denies alcohol use. Patient also has a recent history of cocaine abuse, most recently detected in urine was April 2021. At that time he required admission to the hospital for seizure-like activity. Past medical history includes type 2 diabetes mellitus, diagnosed 27 years ago, atrial fibrillation, not on anticoagulation, DVT, hyperlipidemia, hypertension, NH, pneumonia, uvitis glaucoma, peripheral vascular disease, MRSA left leg in 2019, total amputation. Echocardiogram completed in February 2021 shows low normal ejection fraction of 45- 50% with inferior hypokinesis. Current medications included lisinopril, hydrochlorothiazide, carvedilol, amlodipine, Loxitane, Plavix, aspirin, patient takes Lantus 65 units at bedtime and NovoLog 10 units 3 times a day with meals. He also takes Amaryl which we will hold for now. Patient was admitted to the hospital for diabetic ketoacidosis, labs on admission show a blood sugar of 527, acetone positive, urinalysis also was positive for protein and glucose and ketones. Code PCR is not detected. Initial labs show white count of 18.9, sodium 123, chloride 83, CO2 14, BUN 53, creatinine 1.835, magnesium, 2.4, liver enzymes are within normal limits. Patient's anion gap is currently 26. Temperature is 98.6, heart rate 86, blood pressure 130/74 and he is 97% on room air. Patient is admitted to the hospital and started on insulin drip. blood sugars are more stable this morning; anion gap has closed with bicarb of 24; we will discontinue IV insulin infusion and start patient on home regimen of insulin 08/17/2021 Patient is seen and evaluated in room at bedside; complains of severe abdominal pain in form of burning along with heartburn; patient is currently on IV Protonix which will be increased to twice a day dosing and we will proceed to adding Maalox 3 times a day and monitor closely; lab review reveals anion gap has closed and bicarbonate is within normal limits; blood glucose levels are improved; oral intake is better Lab review shows a sodium of 127 which is a trend down from sodium above 130 in the last 24 hours; we will proceed to discontinuing IV fluids and patient is placed on a 1500 mL per 24-hour fluid restriction; we will monitor sodium levels closely and plan to discharge in next 24 hours once sodium levels stabilized Objective - Vital Signs Vital signs: Vital Signs Temp 98.3 F 08/17/21 11:53 Pulse 88 08/17/21 11:53 Resp 17 08/17/21 11:53 BP 140/88 08/17/21 11:53 Pulse Ox 100 08/17/21 11:53 Intake & Output 08/16/21 08/17/21 08/17/21 18:59 06:59 18:59 Intake Total 406.772 300 Output Total 600 Balance -193.228 300 Weight 70.8 kg 70.4 kg Intake: Intake, IV Titration 6.772 Amount Insulin Regular 100 unit 6.772 In Sodium Chloride 0.9% 100 ml @ 0.1 UNITS/KG/HR 8.063 mls/hr IV .[id number] [facility] Rx#:[id number] Oral 400 300 Output: Urine 600 Other: Voiding Method Urinal Urinal Urinal # Voids 3 - Exam GENERAL: The patient is alert and oriented x3, not in any acute distress. Well developed, well nourished. Pt is lethargic and keeps falling asleep during examination. HEENT: Pupils are round and equally reacting to light. EOMI. No scleral icterus. No conjunctival pallor. Normocephalic, atraumatic. No pharyngeal erythema. No thyromegaly. CARDIOVASCULAR: S1 and S2 present. No murmurs, rubs, or gallops. PULMONARY: Chest is clear to auscultation, no wheezing or crackles. ABDOMEN: Soft, nontender, nondistended, normoactive bowel sounds. No palpable o rganomegaly. MUSCULOSKELETAL: No joint swelling or deformity. EXTREMITIES: No cyanosis, clubbing, or pedal edema. NEUROLOGICAL: Gross neurological examination did not reveal any focal deficits. SKIN: No rashes. - Labs CBC & Chem 7: 08/16/21 07:24 08/18/21 07:59 Labs: Abnormal Lab Results - Last 24 Hours (Table) 08/15/21 08/16/21 08/16/21 Range/Units 14:22 07:24 13:01 Sodium (137-145) mmol/L Chloride (98-107) mmol/L Glucose (74-99) mg/dL POC Glucose (mg/dL) 191 H (75-99) mg/dL Hemoglobin A1c 13.5 H (4.0-6.0) % Phosphorus (2.5-4.5) mg/dL Urine Cocaine Screen Positive A (Negative) U Cannabinoids Screen Positive A (Negative) 08/16/21 08/16/21 08/16/21 Range/Units 13:23 14:00 16:42 Sodium 127 L (137-145) mmol/L Chloride 95 L (98-107) mmol/L Glucose 197 H (74-99) mg/dL POC Glucose (mg/dL) 178 H 232 H (75-99) mg/dL Hemoglobin A1c (4.0-6.0) % Phosphorus 2.0 L (2.5-4.5) mg/dL Urine Cocaine Screen (Negative) U Cannabinoids Screen (Negative) 08/16/21 08/17/21 08/17/21 Range/Units 19:53 05:52 09:12 Sodium (137-145) mmol/L Chloride (98-107) mmol/L Glucose (74-99) mg/dL POC Glucose (mg/dL) 328 H 187 H 141 H (75-99) mg/dL Hemoglobin A1c (4.0-6.0) % Phosphorus (2.5-4.5) mg/dL Urine Cocaine Screen (Negative) U Cannabinoids Screen (Negative) 08/17/21 Range/Units 11:39 Sodium (137-145) mmol/L Chloride (98-107) mmol/L Glucose (74-99) mg/dL POC Glucose (mg/dL) 170 H (75-99) mg/dL Hemoglobin A1c (4.0-6.0) % Phosphorus (2.5-4.5) mg/dL Urine Cocaine Screen (Negative) U Cannabinoids Screen (Negative) Assessment and Plan Assessment: Diabetic Ketoacidosis secondary to decreased oral intake and volume depletion due to nausea, abdominal pain. 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
== END 2021-08-18 18:02 | disposition home or self-care (01) | DRG 638 ==
LOC: EC 01:11 → 3SCARD 04:47
PROVIDERS: ADMIT Hospitalist; ATTEND Hospitalist
DX: E11.10 Type 2 diabetes mellitus with ketoacidosis without coma (principal); E87.1 Hypo-osmolality and hyponatremia; I42.9 Cardiomyopathy, unspecified; N17.9 Acute kidney failure, unspecified; D72.829 Elevated white blood cell count, unspecified; E11.51 Type 2 diabetes mellitus with diabetic peripheral angiopathy without gangrene; E78.5 Hyperlipidemia, unspecified; E86.0 Dehydration; I10 Essential (primary) hypertension; Z20.822 Contact with and (suspected) exposure to COVID-19; I25.2 Old myocardial infarction; I48.91 Unspecified atrial fibrillation; Z79.02 Long term (current) use of antithrombotics/antiplatelets; Z86.718 Personal history of other venous thrombosis and embolism; Z79.4 Long term (current) use of insulin; Z79.82 Long term (current) use of aspirin; Z79.84 Long term (current) use of oral hypoglycemic drugs; Z79.899 Other long term (current) drug therapy; Z82.49 Family history of ischemic heart disease and other diseases of the circulatory system; Z82.5 Family history of asthma and other chronic lower respiratory diseases; Z86.73 Personal history of transient ischemic attack (TIA), and cerebral infarction without residual deficits; Z87.891 Personal history of nicotine dependence; Z89.429 Acquired absence of other toe(s), unspecified side; Z91.14 Patient's other noncompliance with medication regimen
CPT/HCPCS: 36415; 80048; 80051; 80053; 80306; 81001; 82009; 82565; 82947; 83036; 83735; 84100; 84520; 85025; 87635; 93005; 96361; 96374; 96375; 99285

== ENCOUNTER 2021-11-28 04:56 | Inpatient (IN) | payer MEDICARE, OTHER ==
[2021-11-28] MEDS ORDERED: HYDROcodone/APAP 5-325MG 1 EACH TAB PO STA (05:22)
[2021-11-28 06:07] LABS: Basophils % (A) 0 %; Eosinophils # (A) 0.1 k/uL (0-0.7); Eosinophils % (A) 2 %; HCT 46.4 % (39.0-53.0); HGB 15.3 gm/dL (13.0-17.5); Lymphocytes % (A) 27 %; MCH 30.5 pg (25.0-35.0); MCHC 32.9 g/dL (31.0-37.0); MCV 92.5 fL (80.0-100.0); Mean Platelet Volume 7.4; Monocytes # (A) 0.4 k/uL (0-1.0); Monocytes % (A) 6 %; Neutrophils # (A) 4.5 k/uL (1.3-7.7); Neutrophils % (A) 63 %; Platelet Count 284 k/uL (150-450); RBC 5.01 m/uL (4.30-5.90); RDW 12.8 % (11.5-15.5); WBC 7.2 k/uL (3.8-10.6)
[2021-11-28 06:17] LABS: ALT 20 U/L (4-49); AST 20 U/L (17-59); African American GFR (CKD) 73 (>60 ml/min/1.73 sqM); Albumin 4.3 g/dL (3.5-5.0); Alkaline Phosphatase 72 U/L (38-126); Anion Gap 15 mmol/L; Blood Urea Nitrogen 18 mg/dL (9-20); Calcium 9.6 mg/dL (8.4-10.2); Carbon Dioxide 21 mmol/L (22-30); Chloride 93 mmol/L (98-107); Glucose 378 mg/dL (74-99); Non-African American GFR(CKD) 64 (>60 ml/min/1.73 sqM); Potassium 4.8 mmol/L (3.5-5.1); Sodium 129 mmol/L (137-145); Total Bilirubin 1.1 mg/dL (0.2-1.3); Total Protein 7.5 g/dL (6.3-8.2)
[2021-11-28] MEDS ORDERED: INSULIN REGULAR 100 UNIT/ML VIAL (IV) IV STA (07:21)
[2021-11-28] MEDS ORDERED: SODIUM CHLORIDE 0.9% 1,000 ML IV ONE ×2 (07:21→07:22)
--- NOTE | 2021-11-28 07:30 | ED ---
Lower Extremity Injury HPI - General Chief Complaint: Extremity Injury, Lower Stated Complaint: Foot Pain Time Seen by Provider: 11/28/21 05:03 Source: patient Mode of arrival: wheelchair Limitations: no limitations - History of Present Illness Initial Comments: This patient's 56-year-old man who presents with 2 complaints. He states that he has now been out of his insulin and needles going on the fourth day. In addition the patient has been having increasing coldness, discoloration and now pain into his left foot. He has had previous great toe amputation due to ischemia related to his diabetes. Patient believes that it's may have been Dr. Alanis who had performed the surgery here. Patient denies obvious symptoms of infection. No fever or chills. No cough, dyspnea, chest pain. He has not noted any ulcerations to his foot. MD Complaint: foot injury Onset/Timin -: days(s) Injury: Foot: Left Type of Injury: other (No trauma) Severity: moderate Improves With: nothing Worsens With: nothing - Related Data Home Medications Medication Instructions Recorded Confirmed Insulin Glargine [Lantus Vial] 65 unit SQ HS 08/15/21 08/15/21 lisinopriL [Prinivil] 20 mg PO DAILY 08/15/21 08/15/21 Previous Rx's Medication Instructions Recorded Aspirin 81 mg PO DAILY #30 chew 05/04/21 Clopidogrel [Plavix] 75 mg PO DAILY #30 tab 05/04/21 DULoxetine HCL [Cymbalta] 20 mg PO DAILY 30 Days #30 05/04/21 capsule. Glimepiride [Amaryl] 2 mg PO DAILY #30 tab 05/04/21 INSULIN ASPART (NovoLOG) [NovoLOG 10 unit SQ AC-TID #1 vial 05/04/21 (formulary)] amLODIPine [Norvasc] 10 mg PO DAILY #30 tab 05/04/21 carvediloL [Coreg] 3.125 mg PO BID-W/MEALS #60 tab 05/04/21 hydroCHLOROthiazide [Hydrodiuril] 25 mg PO DAILY #30 tab 05/04/21 Pantoprazole [Protonix] 40 mg PO BID 30 Days #60 tab 08/18/21 Allergies Allergy/AdvReac Type Severity Reaction Status Date / Time atorvastatin [From Lipitor] Allergy Swelling Verified 11/28/21 05:01 ibuprofen Allergy Swelling Verified 11/28/21 05:01 pregabalin [From Lyrica] Allergy Swelling Verified 11/28/21 05:01 Review of Systems ROS Statement: Those systems with pertinent positive or pertinent negative responses have been documented in the HPI. ROS Other: All systems not noted in ROS Statement are negative. Constitutional: Denies: fever, chills Respiratory: Denies: cough, dyspnea Cardiovascular: Denies: chest pain, palpitations, edema Gastrointestinal: Denies: abdominal pain, vomiting, diarrhea Genitourinary: Denies: dysuria, hematuria Musculoskeletal: Reports: other (Left foot pain). Denies: back pain Skin: Denies: lesions Neurological: Reports: paresthesias. Denies: headache, weakness, numbness Past Medical History Past Medical History: Atrial Fibrillation, Diabetes Mellitus, Deep Vein Thrombosis (DVT), Hyperlipidemia, Hypertension, Myocardial Infarction ([place]), Pneumonia, Vascular Disorder Additional Past Medical History / Comment(s): uvitis glaucoma, PVD, dvt to lower left leg Last Myocardial Infarction Date:: unknown History of Any Multi-Drug Resistant Organisms: MRSA Date of last positivie culture/infection: 06/30/20 MDRO Source:: Left Leg Past Surgical History: Hernia Repair, Orthopedic Surgery Additional Past Surgical History / Comment(s): aortgram w/ runnoff, eye surg implant, bilateral knee SX, left vein stripping in 02/2020 x2, vein graft and toe amputation Past Anesthesia/Blood Transfusion Reactions: No Reported Reaction Additional Past Anesthesia/Blood Transfusion Reaction / Comment(s): no hx blood transfusion Past Psychological History: No Psychological Hx Reported Smoking Status: Former smoker Past Alcohol Use History: Rare Past Drug Use History: Marijuana - Past Family History Mother History Unknown: Yes Brother(s) Family Medical History: COPD Additional Family Medical History / Comment(s): passed from COPD Father Family Medical History: Myocardial Infarction ([place]) Additional Family Medical History / Comment(s): passed from [place] General Exam Limitations: no limitations General appearance: alert, in no apparent distress Head exam: Present: atraumatic, normocephalic Eye exam: Present: normal appearance. Absent: scleral icterus, conjunctival injection Respiratory exam: Present: normal lung sounds bilaterally. Absent: respiratory distress, wheezes, rales, rhonchi, stridor Cardiovascular Exam: Present: regular rate, normal rhythm, normal heart sounds. Absent: systolic murmur, diastolic murmur, rubs, gallop GI/Abdominal exam: Present: soft. Absent: distended, tenderness, guarding, rebound, rigid, mass Extremities exam: Present: normal inspection, tenderness (Left foot), normal capillary refill, other (The patient's left dorsalis pedis pulse is not palpable. Left foot cool and slightly dusky with delayed capillary refill versus the contralateral side.). Absent: calf tenderness Neurological exam: Present: alert Skin exam: Present: warm, dry, intact, other (Left foot is slightly dusky versus the contralateral.). Absent: rash Course Vital Signs 11/28/21 04:57 Temperature 97.1 F L Pulse Rate 95 Respiratory 18 Rate Blood Pressure 187/107 O2 Sat by Pulse 99 Oximetry Medical Decision Making - Lab Data Result diagrams: 11/28/21 05:46 11/28/21 05:46 Lab Results 11/28/21 11/28/21 11/28/21 Range/Units 05:46 05:46 05:46 WBC 7.2 (3.8-10.6) k/uL RBC 5.01 (4.30-5.90) m/uL Hgb 15.3 (13.0-17.5) gm/dL Hct 46.4 (39.0-53.0) % MCV 92.5 (80.0-100.0) fL MCH 30.5 (25.0-35.0) pg MCHC 32.9 (31.0-37.0) g/dL RDW 12.8 (11.5-15.5) % Plt Count 284 (150-450) k/uL MPV 7.4 Neutrophils % 63 % Lymphocytes % 27 % Monocytes % 6 % Eosinophils % 2 % Basophils % 0 % Neutrophils # 4.5 (1.3-7.7) k/uL Lymphocytes # 2.0 (1.0-4.8) k/uL Monocytes # 0.4 (0-1.0) k/uL Eosinophils # 0.1 (0-0.7) k/uL Basophils # 0.0 (0-0.2) k/uL Sodium 129 L (137-145) mmol/L Potassium 4.8 (3.5-5.1) mmol/L Chloride 93 L (98-107) mmol/L Carbon Dioxide 21 L (22-30) mmol/L Anion Gap 15 mmol/L BUN 18 (9-20) mg/dL Creatinine 1.25 (0.66-1.25) mg/dL Est GFR (CKD-EPI)AfAm 73 (>60 ml/min/1.73 sqM) Est GFR (CKD-EPI)NonAf 64 (>60 ml/min/1.73 sqM) Glucose 378 H (74-99) mg/dL Plasma Lactic Acid Todd 1.2 (0.7-2.0) mmol/L Calcium 9.6 (8.4-10.2) mg/dL Total Bilirubin 1.1 (0.2-1.3) mg/dL AST 20 (17-59) U/L ALT 20 (4-49) U/L Alkaline Phosphatase 72 (38-126) U/L Total Protein 7.5 (6.3-8.2) g/dL Albumin 4.3 (3.5-5.0) g/dL Acetone, Qual Positive (Negative) Disposition Clinical Impression: Diabetic ketoacidosis, Left foot pain Disposition: ADMITTED IP TO THIS [facility] Condition: Fair Referrals: Betito Romo MD [Primary Care Provider] - 1-2 days
[2021-11-28] MEDS ORDERED: INSULIN REGULAR 100 UNIT in SODIUM CHLORIDE 0.9% 100 ML IV SCH (08:00)
[2021-11-28 08:16] LABS: Potassium 4.7 mmol/L (3.5-5.1)
[2021-11-28 09:16] LABS: Glucose,Whole Blood 308 mg/dL (75-99)
[2021-11-28] MEDS: SODIUM CHLORIDE 0.9% 1,000 ML IV SCH ×3 (09:27→16:51)
[2021-11-28 10:18] LABS: Glucose,Whole Blood 196 mg/dL (75-99)
[2021-11-28] MEDS: D5-0.45% NACL WITH KCL 20MEQ/L 1,000 ML IV SCH (10:30)
[2021-11-28 11:18] LABS: Glucose,Whole Blood 121 mg/dL (75-99)
--- NOTE | 2021-11-28 12:23 | P.GSCN ---
History of Present Illness Consult date: 11/28/21 Reason for Consult: Left foot ischemia Requesting physician: Blas Meadows History of present illness: Assessment 56-year-old -[place] male who is well-known to our service. He has a history of peripheral arterial disease, he is noncompliant with his follow-up visits and care. Patient presented to the emergency department stating that he has been out of his insulin and needles going on the fourth day and that he was having increased cold and discoloration in his left foot. He was noted to be intact diabetic ketoacidosis on admission. He has a history of peripheral arterial disease and is undergone a left [id number] bypass graft on 05/31/[address] Garnett as well as left great toe transmetatarsal amputation on 06/05/2024 left great toe gangrene with chronic pain, critical limb ischemia [place] 5. Denies any fevers or chills. No evidence of leukocytosis. Again he has been noncompliant has not followed up with any outpatient care. Increased pain over the last 1-2 weeks duration. Review of Systems A 14 point review of system was completed all pertinent positives and negatives as stated in the HPI Past Medical History Past Medical History: Atrial Fibrillation, Diabetes Mellitus, Deep Vein Thrombosis (DVT), Hyperlipidemia, Hypertension, Myocardial Infarction ([place]), Pneumonia, Vascular Disorder Additional Past Medical History / Comment(s): uvitis glaucoma, PVD, dvt to lower left leg Last Myocardial Infarction Date:: unknown History of Any Multi-Drug Resistant Organisms: MRSA Year Discovered:: 06/30/20 MDRO Source:: Left Leg Past Surgical History: Hernia Repair, Orthopedic Surgery Additional Past Surgical History / Comment(s): aortgram w/ runnoff, eye surg implant, bilateral knee SX, left vein stripping in 02/2020 x2, vein graft and toe amputation Past Anesthesia/Blood Transfusion Reactions: No Reported Reaction Additional Past Anesthesia/Blood Transfusion Reaction / Comm: no hx blood transfusion Past Psychological History: No Psychological Hx Reported Smoking Status: Former smoker Past Alcohol Use History: Rare Past Drug Use History: Marijuana - Past Family History Mother History Unknown: Yes Brother(s) Family Medical History: COPD Additional Family Medical History / Comment(s): passed from COPD Father Family Medical History: Myocardial Infarction ([place]) Additional Family Medical History / Comment(s): passed from [place] Medications and Allergies Home Medications Medication Instructions Recorded Confirmed Type Clopidogrel [Plavix] 75 mg PO DAILY #30 tab 05/04/21 11/28/21 Rx DULoxetine HCL [Cymbalta] 20 mg PO DAILY 30 Days #30 05/04/21 11/28/21 Rx capsule. Glimepiride [Amaryl] 2 mg PO DAILY #30 tab 05/04/21 11/28/21 Rx INSULIN ASPART (NovoLOG) [NovoLOG 10 unit SQ AC-TID #1 vial 05/04/21 11/28/21 Rx (formulary)] amLODIPine [Norvasc] 10 mg PO DAILY #30 tab 05/04/21 11/28/21 Rx carvediloL [Coreg] 3.125 mg PO BID-W/MEALS #60 tab 05/04/21 11/28/21 Rx hydroCHLOROthiazide [Hydrodiuril] 25 mg PO DAILY #30 tab 05/04/21 11/28/21 Rx Insulin Glargine [Lantus Vial] 65 unit SQ HS 08/15/21 11/28/21 History lisinopriL [Prinivil] 20 mg PO DAILY 08/15/21 11/28/21 History Pantoprazole [Protonix] 40 mg PO BID 30 Days #60 tab 08/18/21 11/28/21 Rx Aspirin EC [Ecotrin Low Dose] 81 mg PO DAILY 11/28/21 11/28/21 History Allergies Allergy/AdvReac Type Severity Reaction Status Date / Time atorvastatin [From Lipitor] Allergy Swelling Verified 11/28/21 09:50 ibuprofen Allergy Swelling Verified 11/28/21 09:50 pregabalin [From Lyrica] Allergy Swelling Verified 11/28/21 09:50 Surgical - Exam Vital Signs Temp Pulse Resp BP Pulse Ox 97.1 F L 95 18 187/107 99 11/28/21 04:57 11/28/21 04:57 11/28/21 04:57 11/28/21 04:57 11/28/21 04:57 General appearance: The patient is alert, oriented, appears in no acute distress. HET: Head is normocephalic and atraumatic. Neck: Supple without lymphadenopathy. Trachea midline. Heart: S1 S2. Regular rate and rhythm. Lungs: Clear to auscultation bilaterally. Abdomen: Soft, nontender, nondistended. Extremities: Left great toe amputation, and to the touch. Nonpalpable DP pulse. Good capillary refill. Neurological: No focal deficits. Strength and sensation are grossly intact. Results - Labs 11/28/21 05:46 11/28/21 07:43 Abnormal Lab Results - Last 24 Hours (Table) 11/28/21 11/28/21 11/28/21 Range/Units 05:46 07:43 07:43 Sodium 129 L 129 L (137-145) mmol/L Chloride 93 L 95 L (98-107) mmol/L Carbon Dioxide 21 L 19 L (22-30) mmol/L Glucose 378 H 338 H (74-99) mg/dL Phosphorus 4.6 H (2.5-4.5) mg/dL Diabetes panel 11/28/21 11/28/21 Range/Units 05:46 07:43 Sodium 129 L 129 L (137-145) mmol/L Potassium 4.8 4.7 (3.5-5.1) mmol/L Chloride 93 L 95 L (98-107) mmol/L Carbon Dioxide 21 L 19 L (22-30) mmol/L BUN 18 17 (9-20) mg/dL Creatinine 1.25 1.07 (0.66-1.25) mg/dL Glucose 378 H 338 H (74-99) mg/dL Calcium 9.6 (8.4-10.2) mg/dL AST 20 (17-59) U/L ALT 20 (4-49) U/L Alkaline Phosphatase 72 (38-126) U/L Total Protein 7.5 (6.3-8.2) g/dL Albumin 4.3 (3.5-5.0) g/dL Calcium panel 11/28/21 11/28/21 Range/Units 05:46 07:43 Calcium 9.6 (8.4-10.2) mg/dL Phosphorus 4.6 H (2.5-4.5) mg/dL Albumin 4.3 (3.5-5.0) g/dL Pituitary panel 11/28/21 11/28/21 Range/Units 05:46 07:43 Sodium 129 L 129 L (137-145) mmol/L Potassium 4.8 4.7 (3.5-5.1) mmol/L Chloride 93 L 95 L (98-107) mmol/L Carbon Dioxide 21 L 19 L (22-30) mmol/L BUN 18 17 (9-20) mg/dL Creatinine 1.25 1.07 (0.66-1.25) mg/dL Glucose 378 H 338 H (74-99) mg/dL Calcium 9.6 (8.4-10.2) mg/dL Adrenal panel 11/28/21 11/28/21 Range/Units 05:46 07:43 Sodium 129 L 129 L (137-145) mmol/L Potassium 4.8 4.7 (3.5-5.1) mmol/L Chloride 93 L 95 L (98-107) mmol/L Carbon Dioxide 21 L 19 L (22-30) mmol/L BUN 18 17 (9-20) mg/dL Creatinine 1.25 1.07 (0.66-1.25) mg/dL Glucose 378 H 338 H (74-99) mg/dL Calcium 9.6 (8.4-10.2) mg/dL Total Bilirubin 1.1 (0.2-1.3) mg/dL AST 20 (17-59) U/L ALT 20 (4-49) U/L Alkaline Phosphatase 72 (38-126) U/L Total Protein 7.5 (6.3-8.2) g/dL Albumin 4.3 (3.5-5.0) g/dL Assessment and Plan Assessment: 1. History of peripheral arterial disease status post revascularization and left great toe transmetatarsal amputation 2. Diabetic ketoacidosis 3. History of diabetes mellitus 4. Compliance for medical care Plan: 1. Arterial ultrasound lower extremities ordered 2. Strict glycemic control 3. Continue aspirin and Plavix 4. Further recommendations forthcoming based on arterial ultrasound and clinical course Thank you for this consultation, we will continue to follow The impression and plan of care has been dictated as directed. I performed a history and examination of this patient, discussed the same with the dictator. I agree with the dictator's note ,documented as a scribe. Any additional findings or plans will be noted.
[2021-11-28 12:31] LABS: Glucose,Whole Blood 95 mg/dL (75-99)
[2021-11-28] MEDS: INSULIN ASPART (NovoLOG) 100 UNIT/ML VIAL SQ SCH ×4 (12:41→20:31)
[2021-11-28 12:47] LABS: African American GFR (CKD) >90 (>60 ml/min/1.73 sqM); Anion Gap 6 mmol/L; Blood Urea Nitrogen 14 mg/dL (9-20); Carbon Dioxide 23 mmol/L (22-30); Chloride 105 mmol/L (98-107); Glucose 106 mg/dL (74-99); Non-African American GFR(CKD) >90 (>60 ml/min/1.73 sqM); Potassium 3.9 mmol/L (3.5-5.1); Sodium 134 mmol/L (137-145)
--- NOTE | 2021-11-28 12:52 | P.HPIM ---
History of Present Illness This is a pleasant 76 years old male with past medical history of Atrial Fibrillation not on anticoagulation, Diabetes Mellitus, Deep Vein Thrombosis of the left leg ,, Hyperlipidemia, Hypertension, peripheral vascular disease, stat us post left toe amputation uveitis and, patient presents because of uncontrolled diabetes, he ran out of his insulin over the last 5 days.. He confirmed to me at home he takes slow insulin 65 units at bedtime of Lantus and fast insulin 10 units with meals. Also he is on glimepiride 2 mg at home. Patient also complaining of from chronic left foot and toe especially the lateral 2 toes pain. He is status post left great toe hypertension. He has this pain for about 6 months now He denies any other specific symptoms, he states that he is complaining of from some hesitancy and increased frequency in his urine but no dysuria He denies chest pain or dyspnea or coughing. No abdominal pain or vomiting or diarrhea. No headache or weakness or numbness or abnormal sensation. He denies cigarette smoking, no alcohol. He uses wheat that time. Patient is afebrile, blood pressure elevated 187/107 on admission. Labs show an unremarkable CBC, BMP except for mild hyponatremia of 129 corrected for high glucose of 378 with the 133-136 Acetone is positive for blood. This is that he has history of A. fib but is not on anticoagulation. Also he has chronic history of DVT on the left side more than a year ago and currently he is not on anticoagulation. His vascular surgeon is Dr. White.. Review of Systems CONSTITUTIONAL: No fever, no malaise, no fatigue. HEENT: No recent visual problems or hearing problems. Denied any sore throat. CARDIOVASCULAR: No orthopnea, PND, no palpitations, no syncope. PULMONARY: No shortness of breath, no cough, no hemoptysis. GASTROINTESTINAL: No diarrhea, no nausea, no vomiting, no abdominal pain. Normoactive bowel sounds. NEUROLOGICAL: No headaches, no weakness, no numbness. HEMATOLOGICAL: Denies any bleeding or petechiae. GENITOURINARY: Denies any burning micturition, frequency, or urgency. MUSCULOSKELETAL/RHEUMATOLOGICAL: Denies any joint pain, swelling, or any muscle pain. ENDOCRINE: Denies any polyuria or polydipsia. Past Medical History Past Medical History: Atrial Fibrillation, Diabetes Mellitus, Deep Vein Thrombosis (DVT), Hyperlipidemia, Hypertension, Myocardial Infarction ([place]), Pneumonia, Vascular Disorder Additional Past Medical History / Comment(s): uvitis glaucoma, PVD, dvt to lower left leg Last Myocardial Infarction Date:: unknown History of Any Multi-Drug Resistant Organisms: MRSA Date of last positivie culture/infection: 06/30/20 MDRO Source:: Left Leg Past Surgical History: Hernia Repair, Orthopedic Surgery Additional Past Surgical History / Comment(s): aortgram w/ runnoff, eye surg implant, bilateral knee SX, left vein stripping in 02/2020 x2, vein graft and toe amputation Past Anesthesia/Blood Transfusion Reactions: No Reported Reaction Additional Past Anesthesia/Blood Transfusion Reaction / Comment(s): no hx blood transfusion Past Psychological History: No Psychological Hx Reported Smoking Status: Former smoker Past Alcohol Use History: Rare Past Drug Use History: Marijuana - Past Family History Mother History Unknown: Yes Brother(s) Family Medical History: COPD Additional Family Medical History / Comment(s): passed from COPD Father Family Medical History: Myocardial Infarction ([place]) Additional Family Medical History / Comment(s): passed from [place] Medications and Allergies Home Medications Medication Instructions Recorded Confirmed Type Clopidogrel [Plavix] 75 mg PO DAILY #30 tab 05/04/21 11/28/21 Rx DULoxetine HCL [Cymbalta] 20 mg PO DAILY 30 Days #30 05/04/21 11/28/21 Rx capsule. Glimepiride [Amaryl] 2 mg PO DAILY #30 tab 05/04/21 11/28/21 Rx INSULIN ASPART (NovoLOG) [NovoLOG 10 unit SQ AC-TID #1 vial 05/04/21 11/28/21 Rx (formulary)] amLODIPine [Norvasc] 10 mg PO DAILY #30 tab 05/04/21 11/28/21 Rx carvediloL [Coreg] 3.125 mg PO BID-W/MEALS #60 tab 05/04/21 11/28/21 Rx hydroCHLOROthiazide [Hydrodiuril] 25 mg PO DAILY #30 tab 05/04/21 11/28/21 Rx Insulin Glargine [Lantus Vial] 65 unit SQ HS 08/15/21 11/28/21 History lisinopriL [Prinivil] 20 mg PO DAILY 08/15/21 11/28/21 History Pantoprazole [Protonix] 40 mg PO BID 30 Days #60 tab 08/18/21 11/28/21 Rx Aspirin EC [Ecotrin Low Dose] 81 mg PO DAILY 11/28/21 11/28/21 History Allergies Allergy/AdvReac Type Severity Reaction Status Date / Time atorvastatin [From Lipitor] Allergy Swelling Verified 11/28/21 09:50 ibuprofen Allergy Swelling Verified 11/28/21 09:50 pregabalin [From Lyrica] Allergy Swelling Verified 11/28/21 09:50 Physical Exam Vitals: Vital Signs Temp Pulse Resp BP Pulse Ox 11/28/21 04:57 97.1 F L 95 18 187/107 99 Intake and Output 11/27/21 11/28/21 11/28/21 22:59 06:59 14:59 Other: Weight 74.843 kg GENERAL: The patient is alert and oriented x3, not in any acute distress. Well developed, well nourished. HEENT: Pupils are round and equally reacting to light. EOMI. No scleral icterus. No conjunctival pallor. Normocephalic, atraumatic. No pharyngeal erythema. No thyromegaly. CARDIOVASCULAR: S1 and S2 present. No murmurs, rubs, or gallops. PULMONARY: Chest is clear to auscultation, no wheezing or crackles. ABDOMEN: Soft, nontender, nondistended, normoactive bowel sounds. No palpable organomegaly. MUSCULOSKELETAL: No joint swelling or deformity. -EXTREMITIES: No cyanosis, clubbing, or pedal edema. Status post left big toe amputation. No change in color, swelling or tenderness or deformity of either foot NEUROLOGICAL: Gross neurological examination did not reveal any focal deficits. SKIN: No rashes. No petechiae Results CBC & Chem 7: 11/28/21 05:46 11/28/21 07:43 Labs: Abnormal Lab Results - Last 24 Hours (Table) 11/28/21 Range/Units 05:46 Sodium 129 L (137-145) mmol/L Chloride 93 L (98-107) mmol/L Carbon Dioxide 21 L (22-30) mmol/L Glucose 378 H (74-99) mg/dL Assessment and Plan Assessment: diabetic ketoacidosis Nonadherence to medication. 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 Also resume his Amaryl Resume his antihypertensive medication and check his blood pressure Labs and medication were reviewed.. Continue same treatment. Continue with symptomatic treatment. Resume home medication. Monitor lytes and vitals. DVT and GI prophylaxis. Further recommendations depends on the clinical course of the patient DVT prophylaxis: Subcutaneous heparin GI Prophylaxis: Ppi PT/OT: Pending Prognosis is guarded
[2021-11-28] MEDS ORDERED: INSULIN DETEMIR (LEVEMIR) 100 UNIT/ML SYR SQ SCH (13:15)
[2021-11-28] MEDS: amLODIPine 10 MG TAB PO SCH (13:33)
[2021-11-28] MEDS: lisinopriL 20 MG TAB PO SCH (13:33)
[2021-11-28] MEDS: ASPIRIN 81 MG PO SCH (13:33)
[2021-11-28] MEDS: carvediloL 3.125 MG TAB PO SCH ×2 (13:33→16:56)
[2021-11-28] MEDS: CLOPIDOGREL 75 MG TAB PO SCH (13:33)
[2021-11-28 14:28] LABS: Glucose,Whole Blood 244 mg/dL (75-99)
[2021-11-28 15:41] LABS: Glucose,Whole Blood 273 mg/dL (75-99)
[2021-11-28 16:22] LABS: Glucose,Whole Blood 303 mg/dL (75-99)
[2021-11-28] MEDS: PANTOPRAZOLE 40 MG TABLET PO SCH (16:56)
[2021-11-28] MEDS ORDERED: carvediloL 3.125 MG TAB PO SCH (17:30)
[2021-11-28 20:28] LABS: Glucose,Whole Blood 149 mg/dL (75-99)
[2021-11-28] MEDS: HEPARIN SODIUM,PORCINE/PF 5,000 UNIT/0.5 ML SYRINGE SQ SCH (20:32)
[2021-11-29] MEDS: SODIUM CHLORIDE 0.9% 1,000 ML IV SCH (00:45)
[2021-11-29] MEDS: D5-0.45% NACL WITH KCL 20MEQ/L 1,000 ML IV SCH ×3 (00:45→08:11)
[2021-11-29 06:42] LABS: Glucose,Whole Blood 309 mg/dL (75-99)
[2021-11-29] MEDS: carvediloL 3.125 MG TAB PO SCH (06:51)
[2021-11-29] MEDS: PANTOPRAZOLE 40 MG TABLET PO SCH (06:51)
[2021-11-29] MEDS: INSULIN ASPART (NovoLOG) 100 UNIT/ML VIAL SQ SCH ×4 (06:58→12:04)
[2021-11-29] MEDS ORDERED: INSULIN DETEMIR (LEVEMIR) 100 UNIT/ML SYR SQ SCH (07:00)
[2021-11-29] MEDS: CLOPIDOGREL 75 MG TAB PO SCH (08:10)
[2021-11-29] MEDS: ASPIRIN 81 MG PO SCH (08:10)
[2021-11-29] MEDS: amLODIPine 10 MG TAB PO SCH (08:10)
[2021-11-29] MEDS: lisinopriL 20 MG TAB PO SCH (08:11)
[2021-11-29] MEDS: HEPARIN SODIUM,PORCINE/PF 5,000 UNIT/0.5 ML SYRINGE SQ SCH (08:11)
[2021-11-29 08:15] VITALS: RESP 16; TEMP 99.1
[2021-11-29] MEDS ORDERED: GLIMEPIRIDE 2 MG TAB PO SCH (09:00)
[2021-11-29] MEDS ORDERED: hydroCHLOROthiazide 25 MG TAB PO SCH (09:00)
[2021-11-29] MEDS ORDERED: DULoxetine HCL 20 MG CAPSULE.DR PO SCH (09:00)
[2021-11-29] MEDS ORDERED: lisinopriL 20 MG TAB PO SCH (09:00)
[2021-11-29] MEDS ORDERED: amLODIPine 10 MG TAB PO SCH (09:00)
[2021-11-29] MEDS ORDERED: INSULIN DETEMIR (LEVEMIR) 100 UNIT/ML SYR SQ ONE ×2 (09:30→21:28)
--- NOTE | 2021-11-29 10:49 | P.PN ---
Subjective Progress Note Date: 11/29/21 The patient is seen and examined lying in bed eating chips. He is without any acute changes through the night. Still has some complaints of pain in that left foot. This is chronic. Blood sugars are more stable. Arterial duplex of lower extremity reports TYRA right 1.0, left 0.49 Objective - Vital Signs Vital signs: Vital Signs Temp 99.1 F 11/29/21 08:00 Pulse 100 11/29/21 08:00 Resp 16 11/29/21 08:00 BP 162/78 11/29/21 08:00 Pulse Ox 100 11/29/21 08:00 Intake & Output 11/28/21 11/29/21 11/29/21 18:59 06:59 18:59 Intake Total 227.231 440 180 Output Total 2100 Balance 227.231 -1660 180 Weight 74.843 kg Intake: Intake, IV Titration 15.231 200 Amount D5-0.45% NaCl with KCl 200 20Meq/l 1,000 ml @ 150 mls/hr IV .[id number] DENNISE Rx# :[id number] Insulin Regular 100 unit 15.231 In Sodium Chloride 0.9% 100 ml @ 0.1 UNITS/KG/HR 7.559 mls/hr IV .[id number] DENNISE Rx#:[id number] Oral 212 240 180 Output: Urine 2100 Other: Voiding Method Toilet Toilet Urinal Urinal # Voids 0 # Bowel Movements 0 - Exam General appearance: The patient is alert, oriented, appears in no acute distress. HET: Head is normocephalic and atraumatic. Pupils are equal and reactive. Neck: Supple. Extremities: Normal skin color and turgor. Left great toe amputation site well healed, foot warm to touch, good capillary refill. Tender to the touch. Neurological: No focal deficits. Strength and sensation are grossly intact. - Labs CBC & Chem 7: 11/28/21 05:46 11/28/21 12:00 Labs: Abnormal Lab Results - Last 24 Hours (Table) 11/28/21 11/28/21 11/28/21 Range/Units 11:17 12:00 12:00 Sodium 134 L (137-145) mmol/L Glucose 106 H (74-99) mg/dL POC Glucose (mg/dL) 121 H (75-99) mg/dL Hemoglobin A1c 13.5 H (0.0-6.0) % 11/28/21 11/28/21 11/28/21 Range/Units 14:27 15:40 16:21 Sodium (137-145) mmol/L Glucose (74-99) mg/dL POC Glucose (mg/dL) 244 H 273 H 303 H (75-99) mg/dL Hemoglobin A1c (0.0-6.0) % 11/28/21 11/29/21 Range/Units 20:19 06:21 Sodium (137-145) mmol/L Glucose (74-99) mg/dL POC Glucose (mg/dL) 149 H 309 H (75-99) mg/dL Hemoglobin A1c (0.0-6.0) % Assessment and Plan Assessment: 1. History of peripheral arterial disease status post revascularization and left great toe transmetatarsal amputation 2. Diabetic ketoacidosis 3. History of diabetes mellitus 4. Compliance for medical care Plan: 1. Arterial ultrasound lower extremities reviewed 2. Strict glycemic control 3. Continue aspirin and Plavix 4. No plans and any vascular surgical intervention. Patient findings and symptoms are all chronic. Patient has been noncompliant and needs to follow-up in the office in 1-2 weeks. Thank you for this consultation, the patient is cleared from vascular surgery for discharge. The impression and plan of care has been dictated as directed. I performed a history and examination of this patient, discussed the same with the dictator. I agree with the dictator's note ,documented as a scribe. Any additional findings or plans will be noted.
[2021-11-29 11:34] LABS: Glucose,Whole Blood 338 mg/dL (75-99)
[2021-11-29 12:03] VITALS: BMI 29.2
[2021-11-29 12:07] VITALS: BP 170/90; PULSE 73
[2021-11-29 14:50] LABS: Glucose,Whole Blood 139 mg/dL (75-99)
--- NOTE | 2021-11-29 22:51 | P.DS ---
Providers Date of admission: 11/28/21 07:24 Attending physician: Ric Doty MD Consults: 11/28/21 07:24 Consult Physician Routine Consulting Provider: Stephen Dennison Consult Reason/Comments: Left foot ischemia Do you want consulting provider notified?: Yes Primary care physician: Demetrius Cisse [facility] Course: Diagnoses: diabetic ketoacidosis, present on admission. Completely resolved Nonadherence to medication. Patient could not afford his medication refills over the last few days. Chronic left lower extremity ischemia. 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 He confirmed to me at home he takes slow insulin 65 units at bedtime of Lantus and fast insulin 10 units with meals. Also he is on glimepiride 2 mg at home. He has Medicaid and Medicare at [place] an average about $1 for age prescription, however he is on disability and could not afford that, he ran out of his medication so he came to the hospital for hyperglycemia. He found to have mild DKA which is resolved within 1 day and switch to his on regiment, glucose is controlled, he was hemoglobin A1c is 13.5. This marketing intelligence manager involved, and all prescriptions are provided for the patient with indigenous fund paid by the hospital. Patient told me next month he will get his income and he can't afford the prescription. The importance of adherence to medication is explained for the patient Vascular surgery evaluated the patient for his left foot pain secondary to chronic ischemia. This a chronic problem, therefore patient was cleared for discharge with recommendation for outpatient follow-up. On the day of discharge patient is back to his baseline. He denies chest pain or dyspnea or change in urine or bowel habits. No fever, no other symptoms Problems and management plan were discussed with the patient and he verbalized understanding and acceptance Patient was found stable and can be discharged home however he needs follow-up as an outpatient. Patient was instructed to follow up with PCP Dr. Dr. Zachary Sharma within one week and patient agrees Patient was instructed to follow up with his vascular surgeon Dr. Garnett with 2 weeks and he agrees Physical exam Gen: patient is a AAOx3, no distress CVS: S1-S2, RRR, no murmur Lungs: B/L CTA, no wheezing Abdomen: soft, no distention, no tenderness, positive bowel sounds Extremity: no leg edema or induration Time spent more than 35 minutes Patient Condition at Discharge: Fair Plan - Discharge Summary Discharge Rx Participant: No New Discharge Prescriptions: New lisinopriL [Zestril] 20 mg PO DAILY #30 tab Continue DULoxetine HCL [Cymbalta] 20 mg PO DAILY 30 Days #30 cap Aspirin EC [Ecotrin Low Dose] 81 mg PO DAILY #30 tab Insulin Glargine [Lantus Vial] 65 unit SQ HS #1 each amLODIPine [Norvasc] 10 mg PO DAILY #30 tab Clopidogrel [Plavix] 75 mg PO DAILY 30 Days #30 tab Glimepiride [Amaryl] 2 mg PO DAILY #30 tab carvediloL [Coreg] 3.125 mg PO BID-W/MEALS #60 tab hydroCHLOROthiazide [Hydrodiuril] 25 mg PO DAILY #30 tab INSULIN ASPART (NovoLOG) [NovoLOG (formulary)] 10 unit SQ AC-TID #1 each Pantoprazole [Protonix] 40 mg PO BID 30 Days #60 tab Discontinued lisinopriL [Prinivil] 20 mg PO DAILY Discharge Medication List Aspirin EC [Ecotrin Low Dose] 81 mg PO DAILY #30 tab 11/29/21 [Rx] Clopidogrel [Plavix] 75 mg PO DAILY 30 Days #30 tab 11/29/21 [Rx] DULoxetine HCL [Cymbalta] 20 mg PO DAILY 30 Days #30 cap 11/29/21 [Rx] Glimepiride [Amaryl] 2 mg PO DAILY #30 tab 11/29/21 [Rx] INSULIN ASPART (NovoLOG) [NovoLOG (formulary)] 10 unit SQ AC-TID #1 each 11/29/21 [Rx] Insulin Glargine [Lantus Vial] 65 unit SQ HS #1 each 11/29/21 [Rx] Pantoprazole [Protonix] 40 mg PO BID 30 Days #60 tab 11/29/21 [Rx] amLODIPine [Norvasc] 10 mg PO DAILY #30 tab 11/29/21 [Rx] carvediloL [Coreg] 3.125 mg PO BID-W/MEALS #60 tab 11/29/21 [Rx] hydroCHLOROthiazide [Hydrodiuril] 25 mg PO DAILY #30 tab 11/29/21 [Rx] lisinopriL [Zestril] 20 mg PO DAILY #30 tab 11/29/21 [Rx] Follow up Appointment(s)/Referral(s): Betito Romo MD [Primary Care Provider] - 12/06/21 9:00 am Stephen Dennison DO [Doctor of Osteopathic Medicine] - 2 Weeks Patient Instructions/Handouts: Diabetic Ketoacidosis (DC) Activity/Diet/Wound Care/Special Instructions: heart healthy diet activity is restricted till you see your doctor we recommend to check your glucose 4 times a day before each meal and at bed time , keep the results in a log book and bring it to your doctor upon your appointment date if your glucose is less than 70 or more than 400 then call 911 and come to emergency room Discharge Disposition: HOME SELF-CARE
[2021-11-30] MEDS ORDERED: INSULIN DETEMIR (LEVEMIR) 100 UNIT/ML SYR SQ SCH (07:00)
== END 2021-11-29 15:57 | disposition home or self-care (01) | DRG 638 ==
LOC: EC 04:56 → 3SCARD 07:24
PROVIDERS: ADMIT Internal Medicine; ATTEND Internal Medicine
DX: E11.10 Type 2 diabetes mellitus with ketoacidosis without coma (principal); E87.1 Hypo-osmolality and hyponatremia; I42.9 Cardiomyopathy, unspecified; E11.51 Type 2 diabetes mellitus with diabetic peripheral angiopathy without gangrene; Z89.411 Acquired absence of right great toe; I48.91 Unspecified atrial fibrillation; Z79.4 Long term (current) use of insulin; F19.11 Other psychoactive substance abuse, in remission; T38.3X6A Underdosing of insulin and oral hypoglycemic [antidiabetic] drugs, initial encounter; E78.5 Hyperlipidemia, unspecified; I10 Essential (primary) hypertension; H40.9 Unspecified glaucoma; G89.29 Other chronic pain; M79.672 Pain in left foot; I25.2 Old myocardial infarction; I99.8 Other disorder of circulatory system; Z91.120 Patient's intentional underdosing of medication regimen due to financial hardship; Z91.19 Patient's noncompliance with other medical treatment and regimen; Z79.82 Long term (current) use of aspirin; Z79.02 Long term (current) use of antithrombotics/antiplatelets; Z79.84 Long term (current) use of oral hypoglycemic drugs; Z79.899 Other long term (current) drug therapy; Z86.718 Personal history of other venous thrombosis and embolism; Z86.14 Personal history of Methicillin resistant Staphylococcus aureus infection; Z87.01 Personal history of pneumonia (recurrent); Z87.891 Personal history of nicotine dependence; Z87.19 Personal history of other diseases of the digestive system; Z86.73 Personal history of transient ischemic attack (TIA), and cerebral infarction without residual deficits; Z98.890 Other specified postprocedural states; Z88.6 Allergy status to analgesic agent; Z88.8 Allergy status to other drugs, medicaments and biological substances; Z82.5 Family history of asthma and other chronic lower respiratory diseases; Z82.49 Family history of ischemic heart disease and other diseases of the circulatory system
CPT/HCPCS: 36415; 80051; 80053; 82009; 82565; 82947; 83036; 83605; 84100; 84520; 85025; 93923; 96361; 96374; 96376; 99284

== ENCOUNTER 2022-03-24 09:37 | Emergency (ER) | payer MEDICARE, OTHER ==
[2022-03-24 09:45] VITALS: BP 176/99; PULSE 104; RESP 18
[2022-03-24 09:46] VITALS: TEMP 97
[2022-03-24 09:46] LABS: Glucose,Whole Blood 323 mg/dL (70-110)
[2022-03-24] MEDS ORDERED: INSULIN ASPART (NovoLOG) 100 UNIT/ML VIAL SQ ONE (10:21)
--- NOTE | 2022-03-24 11:21 | ED ---
General Adult HPI <Karlos Valerio - Last Filed: 03/24/22 11:41> - General Source: patient, RN notes reviewed, old records reviewed Mode of arrival: ambulatory Limitations: no limitations <Sandeep Singh - Last Filed: 03/24/22 12:29> - General Chief complaint: Recheck/Abnormal Lab/Rx Stated complaint: Diabetic Time Seen by Provider: 03/24/22 09:45 - History of Present Illness Initial comments: This a 56-year-old male presents emergency department stating that he has been out of his medicines and insulin for the last 2 days and his sugars been over 300. Patient states he just feels a little tired but aside from that he says he is feeling fine. Patient denies any chest pain difficult breathing shortest breath per patient denies any fever chills or cough. Patient denies any palpitations. Patient denies abdominal pain patient denies nausea vomiting diarrhea per patient denies any headache. Patient denies any numbness or weakness. Patient denies any lightheadedness or dizziness. When asked about his medications he states only been about 2 days however the last time he filled those medications was in November and that was for 30 days. Patient states his appointment with his physician this Thursday. (Sandeep Singh) - Related Data Previous Rx's Medication Instructions Recorded DULoxetine HCL [Cymbalta] 20 mg PO DAILY 30 Days #30 cap 11/29/21 Aspirin EC [Ecotrin Low Dose] 81 mg PO DAILY #30 tab 03/24/22 Clopidogrel [Plavix] 75 mg PO DAILY 30 Days #30 tab 03/24/22 Glimepiride [Amaryl] 2 mg PO DAILY #30 tab 03/24/22 INSULIN ASPART (NovoLOG) [NovoLOG 10 unit SQ AC-TID #1 each 03/24/22 (formulary)] Insulin Glargine [Lantus Vial] 65 unit SQ HS #1 each 03/24/22 Pantoprazole [Protonix] 40 mg PO BID 30 Days #60 tab 03/24/22 amLODIPine [Norvasc] 10 mg PO DAILY #30 tab 03/24/22 carvediloL [Coreg] 3.125 mg PO BID-W/MEALS #60 tab 03/24/22 hydroCHLOROthiazide [Hydrodiuril] 25 mg PO DAILY #30 tab 03/24/22 lisinopriL [Zestril] 20 mg PO DAILY #30 tab 03/24/22 Allergies Allergy/AdvReac Type Severity Reaction Status Date / Time atorvastatin [From Lipitor] Allergy Swelling Verified 03/24/22 10:56 ibuprofen Allergy Swelling Verified 03/24/22 10:56 pregabalin [From Lyrica] Allergy Swelling Verified 03/24/22 10:56 Review of Systems ROS Other: All systems not noted in ROS Statement are negative. <Karlos Valerio - Last Filed: 03/24/22 11:41> ROS Other: All systems not noted in ROS Statement are negative. <Sandeep Singh - Last Filed: 03/24/22 12:29> ROS Statement: Those systems with pertinent positive or pertinent negative responses have been documented in the HPI. Past Medical History Past Medical History: Atrial Fibrillation, Diabetes Mellitus, Deep Vein Thrombosis (DVT), Hyperlipidemia, Hypertension, Myocardial Infarction ([place]), Pneumonia, Vascular Disorder Additional Past Medical History / Comment(s): uvitis glaucoma, PVD, dvt to lower left leg Last Myocardial Infarction Date:: unknown History of Any Multi-Drug Resistant Organisms: MRSA Date of last positivie culture/infection: 06/30/20 MDRO Source:: Left Leg Past Surgical History: Hernia Repair, Orthopedic Surgery Additional Past Surgical History / Comment(s): aortgram w/ runnoff, eye surg implant, bilateral knee SX, left vein stripping in 02/2020 x2, vein graft and toe amputation Past Anesthesia/Blood Transfusion Reactions: No Reported Reaction Additional Past Anesthesia/Blood Transfusion Reaction / Comment(s): no hx blood transfusion Past Psychological History: No Psychological Hx Reported Smoking Status: Former smoker Past Alcohol Use History: Rare Past Drug Use History: Marijuana - Past Family History Mother History Unknown: Yes Brother(s) Family Medical History: COPD Additional Family Medical History / Comment(s): passed from COPD Father Family Medical History: Myocardial Infarction ([place]) Additional Family Medical History / Comment(s): passed from [place] <Sandeep Singh - Last Filed: 03/24/22 12:29> General Exam Limitations: no limitations <Sandeep Singh - Last Filed: 03/24/22 12:29> - General Exam Comments Initial Comments: GENERAL: Patient is well-developed and well-nourished. Patient is nontoxic and well- hydrated and is in no acute distress. ENT: Neck is soft and supple. No significant lymphadenopathy is noted. Oropharynx is clear. Moist mucous membranes. Neck has full range of motion without eliciting any pain. EYES: The sclera were anicteric and conjunctiva were pink and moist. Extraocular movements were intact and pupils were equal round and reactive to light. Eyelids were unremarkable. PULMONARY: Unlabored respirations. Good breath sounds bilaterally. No audible rales rhonchi or wheezing was noted. CARDIOVASCULAR: There is a regular rate and rhythm without any murmurs gallops or rubs. ABDOMEN: Soft and nontender with normal bowel sounds. SKIN: Skin is clear with no lesions or rashes and otherwise unremarkable. NEUROLOGIC: Patient is alert and oriented x3. Cranial nerves II through XII are grossly intact. Motor and sensory are also intact. Normal speech, volume and content. Symmetrical smile. MUSCULOSKELETAL: Normal extremities with adequate strength and full range of motion. No lower extremity swelling or edema. No calf tenderness. LYMPHATICS: No significant lymphadenopathy is noted PSYCHIATRIC: Normal psychiatric evaluation. (Sandeep Singh) Course Vital Signs 03/24/22 09:42 Temperature 97 F L Pulse Rate 104 H Respiratory 18 Rate Blood Pressure 176/99 O2 Sat by Pulse 100 Oximetry Medical Decision Making - Lab Data Result diagrams: 03/24/22 10:53 03/24/22 10:53 <Karlos Valerio - Last Filed: 03/24/22 11:41> - Lab Data Result diagrams: 03/24/22 10:53 03/24/22 10:53 <Sandeep Singh - Last Filed: 03/24/22 12:29> - Medical Decision Making Patient received insulin in the emergency department as well as fluids. Patient is been given scripts for all of his insulin at home he was undertaken and follow up this week with his primary medical care doctor. Patient was also given restrictions for high blood pressure medications. Patient was reevaluated by myself and was asymptomatic he stated he would start his insulin at home and keep track of his blood sugar and will take his blood pressure medications (Sandeep Singh) - Lab Data Lab Results 03/24/22 03/24/22 03/24/22 Range/Units 09:44 10:53 10:53 WBC 5.5 (3.8-10.6) k/uL RBC 4.66 (4.30-5.90) m/uL Hgb 14.1 (13.0-17.5) gm/dL Hct 42.0 (39.0-53.0) % MCV 90.3 (80.0-100.0) fL MCH 30.2 (25.0-35.0) pg MCHC 33.5 (31.0-37.0) g/dL RDW 12.2 (11.5-15.5) % Plt Count 266 (150-450) k/uL MPV 7.6 Neutrophils % 63 % Lymphocytes % 27 % Monocytes % 6 % Eosinophils % 2 % Basophils % 1 % Neutrophils # 3.5 (1.3-7.7) k/uL Lymphocytes # 1.5 (1.0-4.8) k/uL Monocytes # 0.3 (0-1.0) k/uL Eosinophils # 0.1 (0-0.7) k/uL Basophils # 0.1 (0-0.2) k/uL Sodium 133 L (137-145) mmol/L Potassium 4.6 (3.5-5.1) mmol/L Chloride 94 L (98-107) mmol/L Carbon Dioxide 28 (22-30) mmol/L Anion Gap 11 mmol/L BUN 16 (9-20) mg/dL Creatinine 1.03 (0.66-1.25) mg/dL Est GFR (CKD-EPI)AfAm >90 (>60 ml/min/1.73 sqM) Est GFR (CKD-EPI)NonAf 80 (>60 ml/min/1.73 sqM) Glucose 309 H (74-99) mg/dL POC Glucose (mg/dL) 323 H (70-110) mg/dL POC Glu Subcontract Manager ID Nick Francis Calcium 9.5 (8.4-10.2) mg/dL Total Bilirubin 1.1 (0.2-1.3) mg/dL AST 24 (17-59) U/L ALT 21 (4-49) U/L Alkaline Phosphatase 80 (38-126) U/L Total Protein 7.2 (6.3-8.2) g/dL Albumin 4.4 (3.5-5.0) g/dL Acetone, Qual Positive (Negative) Disposition <RiskeKarlos - Last Filed: 03/24/22 11:41> Is patient prescribed a controlled substance at d/c from ED?: No Time of Disposition: 12:24 <Sandeep Singh - Last Filed: 03/24/22 12:29> Clinical Impression: Hyperglycemia Disposition: HOME SELF-CARE Prescriptions: Glimepiride [Amaryl] 2 mg PO DAILY #30 tab carvediloL [Coreg] 3.125 mg PO BID-W/MEALS #60 tab Aspirin EC [Ecotrin Low Dose] 81 mg PO DAILY #30 tab hydroCHLOROthiazide [Hydrodiuril] 25 mg PO DAILY #30 tab Insulin Glargine [Lantus Vial] 65 unit SQ HS #1 each amLODIPine [Norvasc] 10 mg PO DAILY #30 tab INSULIN ASPART (NovoLOG) [NovoLOG (formulary)] 10 unit SQ AC-TID #1 each Clopidogrel [Plavix] 75 mg PO DAILY 30 Days #30 tab Pantoprazole [Protonix] 40 mg PO BID 30 Days #60 tab lisinopriL [Zestril] 20 mg PO DAILY #30 tab Referrals: Betito Romo MD [Primary Care Provider] - 1-2 days
[2022-03-24 11:28] LABS: Basophils # (A) 0.1 k/uL (0-0.2); Basophils % (A) 1 %; Eosinophils # (A) 0.1 k/uL (0-0.7); Eosinophils % (A) 2 %; HGB 14.1 gm/dL (13.0-17.5); Lymphocytes # (A) 1.5 k/uL (1.0-4.8); Lymphocytes % (A) 27 %; MCH 30.2 pg (25.0-35.0); MCHC 33.5 g/dL (31.0-37.0); MCV 90.3 fL (80.0-100.0); Mean Platelet Volume 7.6; Monocytes # (A) 0.3 k/uL (0-1.0); Monocytes % (A) 6 %; Neutrophils # (A) 3.5 k/uL (1.3-7.7); Neutrophils % (A) 63 %; Platelet Count 266 k/uL (150-450); RBC 4.66 m/uL (4.30-5.90); RDW 12.2 % (11.5-15.5); WBC 5.5 k/uL (3.8-10.6)
[2022-03-24 11:37] LABS: ALT 21 U/L (4-49); AST 24 U/L (17-59); African American GFR (CKD) >90 (>60 ml/min/1.73 sqM); Albumin 4.4 g/dL (3.5-5.0); Alkaline Phosphatase 80 U/L (38-126); Anion Gap 11 mmol/L; Blood Urea Nitrogen 16 mg/dL (9-20); Calcium 9.5 mg/dL (8.4-10.2); Carbon Dioxide 28 mmol/L (22-30); Chloride 94 mmol/L (98-107); Glucose 309 mg/dL (74-99); Non-African American GFR(CKD) 80 (>60 ml/min/1.73 sqM); Potassium 4.6 mmol/L (3.5-5.1); Sodium 133 mmol/L (137-145); Total Bilirubin 1.1 mg/dL (0.2-1.3); Total Protein 7.2 g/dL (6.3-8.2)
[2022-03-24 12:49] LABS: Glucose,Whole Blood 281 mg/dL (70-110)
== END 2022-03-24 12:48 | disposition home or self-care (01) ==
LOC: EC 09:37
DX: R73.9 Hyperglycemia, unspecified (principal); I10 Essential (primary) hypertension; I25.2 Old myocardial infarction; Z87.891 Personal history of nicotine dependence; Z88.8 Allergy status to other drugs, medicaments and biological substances; Z88.6 Allergy status to analgesic agent
CPT/HCPCS: 36415; 80053; 82009; 85025; 99283

== ENCOUNTER 2022-06-02 19:12 | Observation (INO) | payer MEDICARE, OTHER ==
--- NOTE | 2022-06-02 21:55 | US ---
EXAMINATION TYPE: US venous doppler duplex LE RT DATE OF EXAM: 06/02/2022 9:42 PM COMPARISON: NONE CLINICAL HISTORY: pain swelling. pain and swelling in right leg x 13 hours. Patient has stent in righ t leg. SIDE PERFORMED: Right TECHNIQUE: The lower extremity deep venous system is examined utilizing real time linear array sonog dago with graded compression, doppler sonography and color-flow sonography. VESSELS IMAGED: Common Femoral Vein Deep Femoral Vein Greater Saphenous Vein * Femoral Vein Popliteal Vein Small Saphenous Vein * Proximal Calf Veins (* superficial vessels) Right Leg: Patient could not tolerate any compression. No color flow visualized in femoral or poplit eal vein. Color flow seen in GSV and CFV. IMPRESSION: There is evidence of acute deep vein thrombosis in the right leg femoral and popliteal v ein.
[2022-06-02] MEDS ORDERED: MORPHINE SULFATE 4 MG/ML SYRINGE IV STA (23:09)
[2022-06-02] MEDS ORDERED: HEPARIN SODIUM 1,000 UN/ML (10ML VL) IV PRN (23:10)
[2022-06-02] MEDS ORDERED: HEPARIN SODIUM 1,000 UN/ML (10ML VL) IV ONE (23:10)
[2022-06-02] MEDS ORDERED: HEPARIN SOD,PORK IN 0.45% NACL 25,000 UNIT in 0.45% NACL 1 250ML.BAG IV SCH (23:15)
--- NOTE | 2022-06-02 23:40 | ED ---
Extremity Problem HPI - General Chief complaint: Extremity Problem,Nontraumatic Stated complaint: leg swelling Time Seen by Provider: 06/02/22 23:09 Source: patient, RN notes reviewed Mode of arrival: ambulatory Limitations: no limitations - History of Present Illness Initial comments: This is a pleasant 56-year-old male with a history of multiple medical issues as listed. Patient presents to the ER today complaining of pain in his right leg, mainly the right lower leg. Patient states the pain started in the foot and then progressed proximally. Patient sates pain is exacerbated by palpation and movement. Patient had initial orders for an ultrasound done in triage, ordered by the triage nurse. This does show evidence of a DVT. Patient denying any immobilization. No recent surgeries. No history of blood clots. No family history of blood dyscrasias. No headache, no fever or chills, no changes in vision or hearing, no sore throat or difficulty with speech, no neck pain, no chest pain or shortness of breath, no abdominal pain, no nausea or vomiting, no changes in urination or bowel movements, no numbness or tingling, no skin rashes or lesions. Past medical, surgical, social, and family history reviewed. - Related Data Previous Rx's Medication Instructions Recorded DULoxetine HCL [Cymbalta] 20 mg PO DAILY 30 Days #30 cap 11/29/21 Aspirin EC [Ecotrin Low Dose] 81 mg PO DAILY #30 tab 03/24/22 Clopidogrel [Plavix] 75 mg PO DAILY 30 Days #30 tab 03/24/22 Glimepiride [Amaryl] 2 mg PO DAILY #30 tab 03/24/22 INSULIN ASPART (NovoLOG) [NovoLOG 10 unit SQ AC-TID #1 each 03/24/22 (formulary)] Insulin Glargine [Lantus Vial] 65 unit SQ HS #1 each 03/24/22 Pantoprazole [Protonix] 40 mg PO BID 30 Days #60 tab 03/24/22 amLODIPine [Norvasc] 10 mg PO DAILY #30 tab 03/24/22 carvediloL [Coreg] 3.125 mg PO BID-W/MEALS #60 tab 03/24/22 hydroCHLOROthiazide [Hydrodiuril] 25 mg PO DAILY #30 tab 03/24/22 lisinopriL [Zestril] 20 mg PO DAILY #30 tab 03/24/22 Allergies Allergy/AdvReac Type Severity Reaction Status Date / Time atorvastatin [From Lipitor] Allergy Swelling Verified 06/02/22 20:35 ibuprofen Allergy Swelling Verified 06/02/22 20:35 pregabalin [From Lyrica] Allergy Swelling Verified 06/02/22 20:35 Review of Systems ROS Statement: Those systems with pertinent positive or pertinent negative responses have been documented in the HPI. ROS Other: All systems not noted in ROS Statement are negative. Past Medical History Past Medical History: Atrial Fibrillation, Diabetes Mellitus, Deep Vein Thrombosis (DVT), Hyperlipidemia, Hypertension, Myocardial Infarction ([place]), Pneumonia, Vascular Disorder Additional Past Medical History / Comment(s): uvitis glaucoma, PVD, dvt to lower left leg Last Myocardial Infarction Date:: unknown History of Any Multi-Drug Resistant Organisms: MRSA Date of last positivie culture/infection: 06/30/20 MDRO Source:: Left Leg Past Surgical History: Hernia Repair, Orthopedic Surgery Additional Past Surgical History / Comment(s): aortgram w/ runnoff, eye surg implant, bilateral knee SX, left vein stripping in 02/2020 x2, vein graft and toe amputation Past Anesthesia/Blood Transfusion Reactions: No Reported Reaction Additional Past Anesthesia/Blood Transfusion Reaction / Comment(s): no hx blood transfusion Past Psychological History: No Psychological Hx Reported Smoking Status: Former smoker Past Alcohol Use History: Rare Past Drug Use History: Marijuana - Past Family History Mother History Unknown: Yes Brother(s) Family Medical History: COPD Additional Family Medical History / Comment(s): passed from COPD Father Family Medical History: Myocardial Infarction ([place]) Additional Family Medical History / Comment(s): passed from [place] General Exam - General Exam Comments Initial Comments: Vital signs noted, patient does not appear to be ill or toxic. Limitations: no limitations General appearance: in distress Head exam: Present: atraumatic, normocephalic, normal inspection Eye exam: Present: normal appearance, PERRL, EOMI. Absent: scleral icterus, conjunctival injection, periorbital swelling ENT exam: Present: normal exam, mucous membranes moist Neck exam: Present: normal inspection, full ROM. Absent: tenderness, meningismus, lymphadenopathy Respiratory exam: Present: normal lung sounds bilaterally. Absent: respiratory distress, wheezes, rales, rhonchi, stridor, chest wall tenderness, accessory muscle use, decreased breath sounds, prolonged expiratory Cardiovascular Exam: Present: regular rate, normal rhythm, normal heart sounds. Absent: systolic murmur, diastolic murmur, rubs, gallop, clicks GI/Abdominal exam: Present: soft, normal bowel sounds. Absent: distended, te nderness, guarding, rebound, rigid Extremities exam: Present: normal inspection, full ROM, tenderness (Right lower extremity), normal capillary refill, pedal edema (Edema noted to right lower extremity), calf tenderness (Right lower extremity with positive Homans sign), other (No evidence of infectious process, no erythema, no break in skin integrity). Absent: joint swelling Back exam: Present: normal inspection, full ROM. Absent: rash noted Neurological exam: Present: alert, oriented X3, CN II-XII intact. Absent: motor sensory deficit Psychiatric exam: Present: normal affect, normal mood Skin exam: Present: warm, dry, intact, normal color. Absent: rash, erythema, urticaria, vesicles Course Vital Signs 06/02/22 20:28 Temperature 98 F Pulse Rate 107 H Respiratory 20 Rate Blood Pressure 179/90 O2 Sat by Pulse 99 Oximetry - Reevaluation(s) Reevaluation #1: 06/02/22 23:39 Venous Doppler reveals acute deep venous thrombosis involving the femoral and popliteal vein. Reevaluation #2: 06/03/22 01:10 Blood sugar came back in excess of 400. One dose of NovoLog 10 units subcutaneous ordered. 1 L fluid bolus ordered. Patient has a normal anion gap. - Consultations Consultation #1: The case was discussed in detail with ED attending physician. Presentation, findings, treatment plan discussed in detail. Supervising physician Dr. Laboy Case discussed with Dr. Escoto Medical Decision Making - Medical Decision Making Note that this patient has no history DVT although this is listed in his past medical history in the chart. Patient is not on blood thinners. Also has a history of atrial fibrillation. Patient will require admission, heparin, we'll touch base with the admitting physician. The case was discussed in detail with ED attending physician. Presentation, findings, treatment plan discussed in detail. Ab or Dr. Laboy - Lab Data Result diagrams: 06/03/22 00:12 06/03/22 00:12 Disposition Clinical Impression: Deep venous thrombosis of right femoral vein, Deep venous thrombosis of right popliteal vein, Uncontrolled type 2 diabetes mellitus Disposition: ADMITTED IP TO THIS HOSP Condition: Stable Is patient prescribed a controlled substance at d/c from ED?: No Time of Disposition: 23:40 Decision to Admit Reason: Admit from EC Decision Time: 23:40
[2022-06-02] MEDS ORDERED: ONDANSETRON 4 MG/2 ML VIAL IVP PRN (23:55)
[2022-06-02] MEDS ORDERED: NALOXONE 0.4 MG/ML 1 ML VIAL IV PRN (23:55)
[2022-06-02] MEDS ORDERED: MORPHINE SULFATE 4 MG/ML SYRINGE IV PRN (23:55)
[2022-06-02] MEDS ORDERED: ACETAMINOPHEN TAB 325 MG TAB PO PRN (23:55)
[2022-06-03] MEDS ORDERED: DEXTROSE 50% SYRINGE 50 ML IVP PRN ×4 (00:01)
[2022-06-03 00:25] LABS: Basophils % (A) 1 %; Eosinophils # (A) 0.1 k/uL (0-0.7); Eosinophils % (A) 1 %; HCT 46.7 % (39.0-53.0); HGB 15.7 gm/dL (13.0-17.5); Lymphocytes # (A) 1.7 k/uL (1.0-4.8); Lymphocytes % (A) 22 %; MCH 30.5 pg (25.0-35.0); MCHC 33.6 g/dL (31.0-37.0); MCV 90.7 fL (80.0-100.0); Mean Platelet Volume 8.2; Monocytes # (A) 0.4 k/uL (0-1.0); Monocytes % (A) 5 %; Neutrophils # (A) 5.5 k/uL (1.3-7.7); Neutrophils % (A) 71 %; Platelet Count 236 k/uL (150-450); RBC 5.15 m/uL (4.30-5.90); RDW 13.2 % (11.5-15.5); WBC 7.8 k/uL (3.8-10.6)
[2022-06-03 00:37] LABS: ALT 27 U/L (4-49); AST 28 U/L (17-59); African American GFR (CKD) >90 (>60 ml/min/1.73 sqM); Albumin 5.3 g/dL (3.5-5.0); Alkaline Phosphatase 149 U/L (38-126); Anion Gap 19 mmol/L; Blood Urea Nitrogen 15 mg/dL (9-20); Calcium 10.7 mg/dL (8.4-10.2); Carbon Dioxide 26 mmol/L (22-30); Chloride 90 mmol/L (98-107); Glucose 440 mg/dL (74-99); Magnesium 2.3 mg/dL (1.6-2.3); Non-African American GFR(CKD) >90 (>60 ml/min/1.73 sqM); Potassium 4.1 mmol/L (3.5-5.1); Sodium 135 mmol/L (137-145); Total Protein 8.9 g/dL (6.3-8.2)
[2022-06-03] MEDS ORDERED: MORPHINE SULFATE 2 MG/ML SYRINGE IVP STA (00:57)
[2022-06-03] MEDS ORDERED: SODIUM CHLORIDE 0.9% 1,000 ML IV ONE (01:10)
[2022-06-03] MEDS ORDERED: INSULIN ASPART (NovoLOG) 100 UNIT/ML VIAL SQ ONE (01:10)
[2022-06-03 01:44] LABS: Glucose,Whole Blood 499 mg/dL (70-110)
--- NOTE | 2022-06-03 03:34 | P.HPIM ---
History of Present Illness H&P Date: 06/03/22 The patient is a 56-year-old male with a PMH of type II DM, hypertension, hyperlipidemia, peripheral arterial disease status post left bivessel bypass who presents to the emergency room with complaints of right lower extremity pain and swelling. The patient reports that his symptoms started earlier this morning when he initially noticed right foot swelling upon waking up in the morning. Throughout the day, he gradually developed right calf pain which worsened, prompting him to come to the emergency room. Denied any prior history of DVTs. Denied experiencing chest discomfort, shortness of breath, fever, chills, nausea, vomiting, headaches, visual disturbances, abdominal pain, diarrhea. Lab oratory evaluation emergency room was remarkable for glucose 440, anion gap 19, CO2 26. Review of systems: Pertinent positives and negatives as discussed in HPI, a complete review of systems was performed and all other systems are negative. Physical examination: General: non toxic, no distress, appears at stated age, normal weight Derm: no unusual rashes/lesions, warm Head: atraumatic, normocephalic, symmetric Eyes: EOMI, no lid lag, anicteric sclera, pupils equal round reactive to light ENT: Nose and ears atraumatic Neck: No cervical lymphadenopathy, trachea midline, supple Mouth: no lip lesion, mucus membranes moist Cardiovascular: S1S2 reg, no murmur, right lower extremity 1+ edema Lungs: CTA bilateral, no rhonchi, no rales, no accessory muscle use Abdominal: soft, nontender to palpation, no guarding Ext: muscle strength 5 out of 5 in all 4 extremities grossly, right calf tenderness, left lower extremity bypass scars noted, no gross muscle atrophy, no contractures, Neuro: CN II-XI grossly intact, no gross focal neuro deficits Psych: Alert, oriented, appropriate affect Assessment/plan Acute DVT right lower extremity -Continue with heparin infusion -Vascular consulted due to patient's history of significant peripheral arterial and vascular disease Uncontrolled type II DM with possible DKA -Obtain VBG and serum ketones -30 units Levemir with 10 units NovoLog subcu administered -Continue with home 65 units Levemir daily at bedtime with 10 units NovoLog 3 times a day before meals -Sliding scale blood glucose monitoring -Check A1c levels Chronic conditions: Hypertension, hyperlipidemia -Continue home meds DVT prophylaxis -Heparin infusion The patient is admitted with an anticipated less than 2 midnight stay for evaluation of acute DVT CODE STATUS: Full Code Discussed with: Patient Anticipated discharge date: in am Anticipated discharge place: Home Past Medical History Past Medical History: Atrial Fibrillation, Diabetes Mellitus, Deep Vein Thrombosis (DVT), Hyperlipidemia, Hypertension, Myocardial Infarction ([place]), Pneumonia, Vascular Disorder Additional Past Medical History / Comment(s): uvitis glaucoma, PVD, dvt to lower left leg Last Myocardial Infarction Date:: unknown History of Any Multi-Drug Resistant Organisms: MRSA Date of last positivie culture/infection: 06/30/20 MDRO Source:: Left Leg Past Surgical History: Hernia Repair, Orthopedic Surgery Additional Past Surgical History / Comment(s): aortgram w/ runnoff, eye surg implant, bilateral knee SX, left vein stripping in 02/2020 x2, vein graft and toe amputation Past Anesthesia/Blood Transfusion Reactions: No Reported Reaction Additional Past Anesthesia/Blood Transfusion Reaction / Comment(s): no hx blood transfusion Past Psychological History: No Psychological Hx Reported Smoking Status: Former smoker Past Alcohol Use History: Rare Past Drug Use History: Marijuana - Past Family History Mother History Unknown: Yes Brother(s) Family Medical History: COPD Additional Family Medical History / Comment(s): passed from COPD Father Family Medical History: Myocardial Infarction ([place]) Additional Family Medical History / Comment(s): passed from [place] Medications and Allergies Home Medications Medication Instructions Recorded Confirmed Type DULoxetine HCL [Cymbalta] 20 mg PO DAILY 30 Days #30 cap 11/29/21 03/24/22 Rx Aspirin EC [Ecotrin Low Dose] 81 mg PO DAILY #30 tab 03/24/22 Rx Clopidogrel [Plavix] 75 mg PO DAILY 30 Days #30 tab 03/24/22 Rx Glimepiride [Amaryl] 2 mg PO DAILY #30 tab 03/24/22 Rx INSULIN ASPART (NovoLOG) [NovoLOG 10 unit SQ AC-TID #1 each 03/24/22 Rx (formulary)] Insulin Glargine [Lantus Vial] 65 unit SQ HS #1 each 03/24/22 Rx Pantoprazole [Protonix] 40 mg PO BID 30 Days #60 tab 03/24/22 Rx amLODIPine [Norvasc] 10 mg PO DAILY #30 tab 03/24/22 Rx carvediloL [Coreg] 3.125 mg PO BID-W/MEALS #60 tab 03/24/22 Rx hydroCHLOROthiazide [Hydrodiuril] 25 mg PO DAILY #30 tab 03/24/22 Rx lisinopriL [Zestril] 20 mg PO DAILY #30 tab 03/24/22 Rx Allergies Allergy/AdvReac Type Severity Reaction Status Date / Time atorvastatin [From Lipitor] Allergy Swelling Verified 06/02/22 20:35 ibuprofen Allergy Swelling Verified 06/02/22 20:35 pregabalin [From Lyrica] Allergy Swelling Verified 06/02/22 20:35 Physical Exam Vitals: Vital Signs Temp Pulse Resp BP Pulse Ox 06/02/22 20:28 98 F 107 H 20 179/90 99 Intake and Output 06/02/22 06/02/22 06/03/22 14:59 22:59 06:59 Other: Weight 60.691 kg Results CBC & Chem 7: 06/03/22 00:12 06/03/22 00:12 Labs: Abnormal Lab Results - Last 24 Hours (Table) 06/03/22 06/03/22 Range/Units 00:12 01:42 Sodium 135 L (137-145) mmol/L Chloride 90 L (98-107) mmol/L Glucose 440 H (74-99) mg/dL POC Glucose (mg/dL) 499 H (70-110) mg/dL Calcium 10.7 H (8.4-10.2) mg/dL Alkaline Phosphatase 149 H (38-126) U/L Total Protein 8.9 H (6.3-8.2) g/dL Albumin 5.3 H (3.5-5.0) g/dL
[2022-06-03] MEDS ORDERED: INSULIN DETEMIR (LEVEMIR) 100 UNIT/ML SYR SQ ONE (03:45)
[2022-06-03 04:40] LABS: Glucose,Whole Blood 303 mg/dL (70-110)
[2022-06-03 05:16] LABS: Basophils # (A) 0.1 k/uL (0-0.2); Basophils % (A) 1 %; Eosinophils # (A) 0.1 k/uL (0-0.7); Eosinophils % (A) 1 %; HCT 39.7 % (39.0-53.0); Lymphocytes # (A) 2.2 k/uL (1.0-4.8); Lymphocytes % (A) 23 %; MCH 29.8 pg (25.0-35.0); MCHC 32.8 g/dL (31.0-37.0); MCV 90.9 fL (80.0-100.0); Mean Platelet Volume 8.3; Monocytes # (A) 0.6 k/uL (0-1.0); Monocytes % (A) 6 %; Neutrophils # (A) 6.5 k/uL (1.3-7.7); Neutrophils % (A) 68 %; Platelet Count 197 k/uL (150-450); RBC 4.37 m/uL (4.30-5.90); RDW 13.1 % (11.5-15.5); WBC 9.6 k/uL (3.8-10.6)
[2022-06-03 05:24] LABS: VBG PH 7.36 (7.31-7.41)
[2022-06-03 05:41] LABS: ALT 19 U/L (4-49); AST 20 U/L (17-59); African American GFR (CKD) >90 (>60 ml/min/1.73 sqM); Albumin 3.6 g/dL (3.5-5.0); Alkaline Phosphatase 100 U/L (38-126); Anion Gap 8 mmol/L; Blood Urea Nitrogen 13 mg/dL (9-20); Calcium 8.5 mg/dL (8.4-10.2); Carbon Dioxide 27 mmol/L (22-30); Chloride 98 mmol/L (98-107); Glucose 287 mg/dL (74-99); Non-African American GFR(CKD) >90 (>60 ml/min/1.73 sqM); Potassium 3.5 mmol/L (3.5-5.1); Sodium 133 mmol/L (137-145); Total Bilirubin 0.6 mg/dL (0.2-1.3); Total Protein 5.9 g/dL (6.3-8.2)
[2022-06-03 08:40] LABS: Glucose,Whole Blood 263 mg/dL (70-110)
[2022-06-03] MEDS: INSULIN ASPART (NovoLOG) 100 UNIT/ML VIAL SQ SCH ×4 (08:46→20:57)
[2022-06-03] MEDS: PANTOPRAZOLE 40 MG TABLET PO SCH ×2 (08:46→20:56)
[2022-06-03] MEDS: lisinopriL 20 MG TAB PO SCH (08:46)
[2022-06-03 11:51] LABS: Appearance,Urine Clear (Clear); Bacteria,Urine Rare /hpf; Bilirubin,Urine Negative (Negative); Blood,Urine Negative (Negative); Budding Yeast,Urine Few /hpf; Color,Urine Light Yellow; Glucose,Urine (UA) 4+ (Negative); Hyaline Casts,Urine 1 /lpf (0-2); Ketones,Urine Negative (Negative); Leukocyte Esterase,Urine Negative (Negative); Mucus,Urine Rare /hpf; Nitrite,Urine Negative (Negative); PH, Urine 5.5 (5.0-8.0); Protein,Urine 1+ (Negative); RBC,Urine 3 /hpf (0-5); Squamous Epithelial Cell,Urine 1 /hpf (0-4); Urobilinogen,Urine <2.0 mg/dL (<2.0); WBC,Urine 6 /hpf (0-5)
[2022-06-03 12:06] LABS: Glucose,Whole Blood 154 mg/dL (70-110)
[2022-06-03] MEDS: APIXABAN 5 MG TAB PO SCH ×2 (12:23→20:57)
--- NOTE | 2022-06-03 14:13 | P.GSCN ---
History of Present Illness Consult date: 06/03/22 Reason for Consult: Right lower extremity DVT Requesting physician: Gigi Duffy History of present illness: This is a 56-year-old -[place] male who is well-known to our service. He has a history of peripheral arterial disease, he is noncompliant with his follow-up visits and care. He has a history of peripheral arterial disease and is undergone a left qtrtarg-eg-[id number] bypass graft on 05/31/[address] Garnett as well as left great toe transmetatarsal amputation on 06/05/2021 for gangrene left great toe. He states pain and swelling began in the right lower extremity a few days ago. He denies any injury to his right lower extremity, no recent traveling, and denies any family history of clotting disorders. He does state that he has been more sedentary and not walking as much due to some left lower extremity weakness requiring a cane. He has not followed up with Dr. Garnett as recommended. Patient had a venous duplex done of the right lower extremity that was positive for acute DVT in the right femoral and popliteal vein. Vascular surgery was consulted for this reason. Patient denies any shortness of breath or chest pain. Denies any fever or chills. Still has complaints of right lower extremity pain and difficulty with ambulation due to pain. He was started on a heparin drip. Review of Systems A 14 point review systems was completed all pertinent positives and negatives as stated in the HPI. Past Medical History Past Medical History: Atrial Fibrillation, Diabetes Mellitus, Deep Vein Thrombosis (DVT), Hyperlipidemia, Hypertension, Myocardial Infarction (NM), Pneumonia, Vascular Disorder Additional Past Medical History / Comment(s): uvitis glaucoma, PVD, dvt to lower left leg Last Myocardial Infarction Date:: unknown History of Any Multi-Drug Resistant Organisms: MRSA Year Discovered:: 06/30/20 MDRO Source:: Left Leg Past Surgical History: Hernia Repair, Orthopedic Surgery Additional Past Surgical History / Comment(s): aortgram w/ runnoff, eye surg implant, bilateral knee SX, left vein stripping in 02/2020 x2, vein graft and toe amputation Past Anesthesia/Blood Transfusion Reactions: No Reported Reaction Additional Past Anesthesia/Blood Transfusion Reaction / Comm: no hx blood transfusion Past Psychological History: No Psychological Hx Reported Smoking Status: Former smoker Past Alcohol Use History: Rare Past Drug Use History: Marijuana - Past Family History Mother History Unknown: Yes Brother(s) Family Medical History: COPD Additional Family Medical History / Comment(s): passed from COPD Father Family Medical History: Myocardial Infarction (NM) Additional Family Medical History / Comment(s): passed from NM Medications and Allergies Home Medications Medication Instructions Recorded Confirmed Type DULoxetine HCL [Cymbalta] 20 mg PO DAILY 30 Days #30 cap 11/29/21 06/03/22 Rx Aspirin EC [Ecotrin Low Dose] 81 mg PO DAILY #30 tab 03/24/22 06/03/22 Rx Clopidogrel [Plavix] 75 mg PO DAILY 30 Days #30 tab 03/24/22 06/03/22 Rx Glimepiride [Amaryl] 2 mg PO DAILY #30 tab 03/24/22 06/03/22 Rx INSULIN ASPART (NovoLOG) [NovoLOG 10 unit SQ AC-TID #1 each 03/24/22 06/03/22 Rx (formulary)] Insulin Glargine [Lantus Vial] 65 unit SQ HS #1 each 03/24/22 06/03/22 Rx Pantoprazole [Protonix] 40 mg PO BID 30 Days #60 tab 03/24/22 06/03/22 Rx amLODIPine [Norvasc] 10 mg PO DAILY #30 tab 03/24/22 06/03/22 Rx carvediloL [Coreg] 3.125 mg PO BID-W/MEALS #60 tab 03/24/22 06/03/22 Rx hydroCHLOROthiazide [Hydrodiuril] 25 mg PO DAILY #30 tab 03/24/22 06/03/22 Rx lisinopriL [Zestril] 20 mg PO DAILY #30 tab 03/24/22 06/03/22 Rx Apixaban [Eliquis Starter Pack 5 - 10 mg PO DIRECTED 30 Days 06/03/22 Rx (for VTE)] #1 each Allergies Allergy/AdvReac Type Severity Reaction Status Date / Time atorvastatin [From Lipitor] Allergy Swelling Verified 06/03/22 08:02 ibuprofen Allergy Swelling Verified 06/03/22 08:02 pregabalin [From Lyrica] Allergy Swelling Verified 06/03/22 08:02 Surgical - Exam Vital Signs Temp Pulse Resp BP Pulse Ox 98 F 107 H 20 179/90 99 06/02/22 20:28 06/02/22 20:28 06/02/22 20:28 06/02/22 20:28 06/02/22 20:28 General appearance: The patient is alert, oriented, appears in no acute distress. HET: Head is normocephalic and atraumatic. Pupils are equal and reactive. Neck: Supple without lymphadenopathy. Trachea midline. Heart: S1 S2. Regular rate and rhythm. Lungs: Clear to auscultation bilaterally. Abdomen: Soft, nontender, nondistended. Extremities: Bilateral palpable femoral pulses. Bilateral lower extremities warm to touch. Right lower extremity with swelling to the knee. Tender to palpate. Patient has good sensory motor bilaterally. Left lower extremity bypass graft with Doppler signal, unable to palpate. Left PT signal present, no DP signal. Right DP and PT signal present. Neurological: No focal deficits. Strength and sensation are grossly intact. Results - Labs 06/03/22 04:26 06/03/22 04:26 Abnormal Lab Results - Last 24 Hours (Table) 06/03/22 06/03/22 06/03/22 Range/Units 00:04 00:12 01:42 APTT (22.0-30.0) sec VBG HCO3 (24-28) mmol/L Sodium 135 L (137-145) mmol/L Chloride 90 L (98-107) mmol/L Glucose 440 H (74-99) mg/dL POC Glucose (mg/dL) 499 H (70-110) mg/dL Hemoglobin A1c 16.4 H (0.0-6.0) % Calcium 10.7 H (8.4-10.2) mg/dL Alkaline Phosphatase 149 H (38-126) U/L Total Protein 8.9 H (6.3-8.2) g/dL Albumin 5.3 H (3.5-5.0) g/dL 06/03/22 06/03/22 06/03/22 Range/Units 04:26 04:26 04:26 APTT 55.2 H (22.0-30.0) sec VBG HCO3 29 H (24-28) mmol/L Sodium 133 L (137-145) mmol/L Chloride (98-107) mmol/L Glucose 287 H (74-99) mg/dL POC Glucose (mg/dL) (70-110) mg/dL Hemoglobin A1c (0.0-6.0) % Calcium (8.4-10.2) mg/dL Alkaline Phosphatase (38-126) U/L Total Protein 5.9 L (6.3-8.2) g/dL Albumin (3.5-5.0) g/dL 06/03/22 06/03/22 Range/Units 04:37 08:38 APTT (22.0-30.0) sec VBG HCO3 (24-28) mmol/L Sodium (137-145) mmol/L Chloride (98-107) mmol/L Glucose (74-99) mg/dL POC Glucose (mg/dL) 303 H 263 H (70-110) mg/dL Hemoglobin A1c (0.0-6.0) % Calcium (8.4-10.2) mg/dL Alkaline Phosphatase (38-126) U/L Total Protein (6.3-8.2) g/dL Albumin (3.5-5.0) g/dL Diabetes panel 06/03/22 06/03/22 06/03/22 Range/Units 00:04 00:12 04:26 Sodium 135 L 133 L (137-145) mmol/L Potassium 4.1 3.5 (3.5-5.1) mmol/L Chloride 90 L 98 (98-107) mmol/L Carbon Dioxide 26 27 (22-30) mmol/L BUN 15 13 (9-20) mg/dL Creatinine 0.89 0.81 (0.66-1.25) mg/dL Glucose 440 H 287 H (74-99) mg/dL Hemoglobin A1c 16.4 H (0.0-6.0) % Calcium 10.7 H 8.5 (8.4-10.2) mg/dL AST 28 20 (17-59) U/L ALT 27 19 (4-49) U/L Alkaline Phosphatase 149 H 100 (38-126) U/L Total Protein 8.9 H 5.9 L (6.3-8.2) g/dL Albumin 5.3 H 3.6 (3.5-5.0) g/dL Calcium panel 06/03/22 06/03/22 Range/Units 00:12 04:26 Calcium 10.7 H 8.5 (8.4-10.2) mg/dL Albumin 5.3 H 3.6 (3.5-5.0) g/dL Pituitary panel 06/03/22 06/03/22 Range/Units 00:12 04:26 Sodium 135 L 133 L (137-145) mmol/L Potassium 4.1 3.5 (3.5-5.1) mmol/L Chloride 90 L 98 (98-107) mmol/L Carbon Dioxide 26 27 (22-30) mmol/L BUN 15 13 (9-20) mg/dL Creatinine 0.89 0.81 (0.66-1.25) mg/dL Glucose 440 H 287 H (74-99) mg/dL Calcium 10.7 H 8.5 (8.4-10.2) mg/dL Adrenal panel 06/03/22 06/03/22 Range/Units 00:12 04:26 Sodium 135 L 133 L (137-145) mmol/L Potassium 4.1 3.5 (3.5-5.1) mmol/L Chloride 90 L 98 (98-107) mmol/L Carbon Dioxide 26 27 (22-30) mmol/L BUN 15 13 (9-20) mg/dL Creatinine 0.89 0.81 (0.66-1.25) mg/dL Glucose 440 H 287 H (74-99) mg/dL Calcium 10.7 H 8.5 (8.4-10.2) mg/dL Total Bilirubin 1.0 0.6 (0.2-1.3) mg/dL AST 28 20 (17-59) U/L ALT 27 19 (4-49) U/L Alkaline Phosphatase 149 H 100 (38-126) U/L Total Protein 8.9 H 5.9 L (6.3-8.2) g/dL Albumin 5.3 H 3.6 (3.5-5.0) g/dL Assessment and Plan Assessment: 1. Acute right lower extremity DVT 2. Peripheral arterial disease, status post of left fem-pop bypass graft 3. History of left great toe amputation 4. Medical noncompliance 5. Diabetes mellitus Plan: 1. Transition heparin drip to oral anticoagulation 2. Prescription for Eliquis ordered and sent to pharmacy for coverage 3. Patient is cleared for discharge from vascular surgery 4. Patient instructed to follow-up with Dr. Garnett for left lower extremity peripheral arterial disease Thank you for this consultation, we will sign off at this time. The impression and plan of care has been dictated as directed. Dr. Alanis I performed a history and examination of this patient, discussed the same with the dictator. I agree with the dictator's note ,documented as a scribe. Any additional findings or plans will be noted.
[2022-06-03 17:09] LABS: Glucose,Whole Blood 239 mg/dL (70-110)
--- NOTE | 2022-06-03 17:24 | P.PN ---
Subjective Progress Note Date: 06/03/22 Patient was seen and examined. No acute events overnight. Patient reports right lower extremity pain. States that he is unable to ambulate. Patient appears to be in no acute distress while laying in bed. Assessment/plan Acute DVT right lower extremity -Discontinue heparin and start Eliquis -Vascular consulted due to patient's history of significant peripheral arterial and vascular disease, has clear the patient for discharge -PT and OT consulted to work with the patient. -Fall precautions Uncontrolled type II DM -VBG shows normal pH and no ketones in UA -30 units Levemir with 10 units NovoLog subcu administered -Continue with home 65 units Levemir daily at bedtime -Sliding scale blood glucose monitoring -A1c 16.4 Chronic conditions: Hypertension, hyperlipidemia -Continue home meds DVT prophylaxis -Eliquis The patient is admitted with an anticipated less than 2 midnight stay for quinton luation of acute DVT CODE STATUS: Full Code Discussed with: Patient Anticipated discharge date: in am Attempted to discharge her patient. Patient unable to ambulate. He is pending clinical improvement. Anticipated DC home tomorrow after PT and OT evaluation. Objective - Vital Signs Vital signs: Vital Signs Temp 98 F 06/02/22 20:28 Pulse 78 06/03/22 08:47 Resp 18 06/03/22 08:47 BP 160/88 06/03/22 08:47 Pulse Ox 98 06/03/22 08:47 FiO2 Intake & Output 06/02/22 06/03/22 06/03/22 18:59 06:59 18:59 Weight 60.691 kg - Labs CBC & Chem 7: 06/03/22 04:26 06/03/22 04:26 Labs: Abnormal Lab Results - Last 24 Hours (Table) 06/03/22 06/03/22 06/03/22 Range/Units 00:04 00:12 01:42 APTT (22.0-30.0) sec VBG HCO3 (24-28) mmol/L Sodium 135 L (137-145) mmol/L Chloride 90 L (98-107) mmol/L Glucose 440 H (74-99) mg/dL POC Glucose (mg/dL) 499 H (70-110) mg/dL Hemoglobin A1c 16.4 H (0.0-6.0) % Calcium 10.7 H (8.4-10.2) mg/dL Alkaline Phosphatase 149 H (38-126) U/L Total Protein 8.9 H (6.3-8.2) g/dL Albumin 5.3 H (3.5-5.0) g/dL Urine Protein (Negative) Urine Glucose (UA) (Negative) Urine WBC (0-5) /hpf Urine Bacteria (None) /hpf Urine Mucus (None) /hpf Urine Yeast (Budding) (None) /hpf 06/03/22 06/03/22 06/03/22 Range/Units 04:26 04:26 04:26 APTT 55.2 H (22.0-30.0) sec VBG HCO3 29 H (24-28) mmol/L Sodium 133 L (137-145) mmol/L Chloride (98-107) mmol/L Glucose 287 H (74-99) mg/dL POC Glucose (mg/dL) (70-110) mg/dL Hemoglobin A1c (0.0-6.0) % Calcium (8.4-10.2) mg/dL Alkaline Phosphatase (38-126) U/L Total Protein 5.9 L (6.3-8.2) g/dL Albumin (3.5-5.0) g/dL Urine Protein (Negative) Urine Glucose (UA) (Negative) Urine WBC (0-5) /hpf Urine Bacteria (None) /hpf Urine Mucus (None) /hpf Urine Yeast (Budding) (None) /hpf 06/03/22 06/03/22 06/03/22 Range/Units 04:37 08:38 11:20 APTT (22.0-30.0) sec VBG HCO3 (24-28) mmol/L Sodium (137-145) mmol/L Chloride (98-107) mmol/L Glucose (74-99) mg/dL POC Glucose (mg/dL) 303 H 263 H (70-110) mg/dL Hemoglobin A1c (0.0-6.0) % Calcium (8.4-10.2) mg/dL Alkaline Phosphatase (38-126) U/L Total Protein (6.3-8.2) g/dL Albumin (3.5-5.0) g/dL Urine Protein 1+ H (Negative) Urine Glucose (UA) 4+ H (Negative) Urine WBC 6 H (0-5) /hpf Urine Bacteria Rare H (None) /hpf Urine Mucus Rare H (None) /hpf Urine Yeast (Budding) Few H (None) /hpf 06/03/22 06/03/22 Range/Units 12:04 17:07 APTT (22.0-30.0) sec VBG HCO3 (24-28) mmol/L Sodium (137-145) mmol/L Chloride (98-107) mmol/L Glucose (74-99) mg/dL POC Glucose (mg/dL) 154 H 239 H (70-110) mg/dL Hemoglobin A1c (0.0-6.0) % Calcium (8.4-10.2) mg/dL Alkaline Phosphatase (38-126) U/L Total Protein (6.3-8.2) g/dL Albumin (3.5-5.0) g/dL Urine Protein (Negative) Urine Glucose (UA) (Negative) Urine WBC (0-5) /hpf Urine Bacteria (None) /hpf Urine Mucus (None) /hpf Urine Yeast (Budding) (None) /hpf
[2022-06-03] MEDS: carvediloL 3.125 MG TAB PO SCH (17:53)
[2022-06-03 20:37] LABS: Glucose,Whole Blood 374 mg/dL (70-110)
[2022-06-03] MEDS ORDERED: INSULIN DETEMIR (LEVEMIR) 100 UNIT/ML SYR SQ SCH (21:00)
[2022-06-04 07:09] LABS: Glucose,Whole Blood 86 mg/dL (70-110)
[2022-06-04] MEDS ORDERED: HYDROcodone/APAP 10-325MG 1 EACH TAB PO PRN (07:45)
[2022-06-04] MEDS: INSULIN ASPART (NovoLOG) 100 UNIT/ML VIAL SQ SCH (08:49)
[2022-06-04] MEDS: carvediloL 3.125 MG TAB PO SCH (08:50)
[2022-06-04] MEDS ORDERED: amLODIPine 10 MG TAB PO SCH (09:00)
[2022-06-04] MEDS ORDERED: hydroCHLOROthiazide 25 MG TAB PO SCH (09:00)
[2022-06-04] MEDS ORDERED: ASPIRIN 81 MG PO SCH (09:00)
[2022-06-04] MEDS ORDERED: DULoxetine HCL 20 MG CAPSULE.DR PO SCH (09:00)
--- NOTE | 2022-06-04 09:06 | P.DS ---
Providers Date of admission: 06/02/22 23:53 Expected date of discharge: 06/04/22 Attending physician: Abdi Escoto MD Primary care physician: Demetrius Burnham [facility] Course: The patient is a 56-year-old male with a PMH of type II DM, hypertension, hyperlipidemia, peripheral arterial disease status post left bivessel bypass who presents to the emergency room with complaints of right lower extremity pain and swelling. The patient reports that his symptoms started earlier this morning when he initially noticed right foot swelling upon waking up in the morning. Throughout the day, he gradually developed right calf pain which worsened, prompting him to come to the emergency room. Denied any prior history of DVTs. Denied experiencing chest discomfort, shortness of breath, fever, chills, nausea, vomiting, headaches, visual disturbances, abdominal pain, diarrhea. Laboratory evaluation emergency room was remarkable for glucose 440, anion gap 19, CO2 26. Venous Doppler showed evidence of acute DVT in the right leg femoral and pop liteal vein. Vascular surgery was consulted and recommended medical management. Patient was prescribed Eliquis. He reported inability to ambulate on 06/03/2022 which held his discharge. He was started on [place] and morphine as needed for pain. PT and OT was consulted. Patient was seen and examined on 06/04/2022. He reported no complaints. He appeared comfortable laying in bed. He states that he ambulates with the aid of a cane at home. General: non toxic, no distress, appears at stated age, normal weight Derm: no unusual rashes/lesions, warm Head: atraumatic, normocephalic, symmetric Eyes: EOMI, no lid lag, anicteric sclera ENT: Nose and ears atraumatic Neck: No cervical lymphadenopathy, trachea midline, supple Mouth: no lip lesion, mucus membranes moist Cardiovascular: S1S2 reg, no murmur, right lower extremity 1+ edema Lungs: CTA bilateral, no rhonchi, no rales, no accessory muscle use Ext: muscle strength 5 out of 5 in all 4 extremities grossly, right calf tenderness Neuro: no gross focal neuro deficits Psych: Alert, oriented, appropriate affect Discharge diagnosis: Acute DVT of the right lower extremity Diabetes mellitus with hyperglycemia History of peripheral arterial disease Hypertension Dyslipidemia Pertinent Studies: Venous Doppler Patient Condition at Discharge: Stable Plan - Discharge Summary New Discharge Prescriptions: New Apixaban [Eliquis Starter Pack (for VTE)] 5 - 10 mg PO DIRECTED 30 Days #1 each HYDROcodone/APAP 10-325MG [[place] 10-325] 1 each PO Q4HR PRN #18 tab PRN Reason: Pain Continue DULoxetine HCL [Cymbalta] 20 mg PO DAILY 30 Days #30 cap hydroCHLOROthiazide [Hydrodiuril] 25 mg PO DAILY #30 tab Insulin Glargine [Lantus Vial] 65 unit SQ HS #1 each INSULIN ASPART (NovoLOG) [NovoLOG (formulary)] 10 unit SQ AC-TID #1 each Pantoprazole [Protonix] 40 mg PO BID 30 Days #60 tab lisinopriL [Zestril] 20 mg PO DAILY #30 tab Glimepiride [Amaryl] 2 mg PO DAILY #30 tab carvediloL [Coreg] 3.125 mg PO BID-W/MEALS #60 tab amLODIPine [Norvasc] 10 mg PO DAILY #30 tab Clopidogrel [Plavix] 75 mg PO DAILY 30 Days #30 tab Discontinued Aspirin EC [Ecotrin Low Dose] 81 mg PO DAILY #30 tab Discharge Medication List DULoxetine HCL [Cymbalta] 20 mg PO DAILY 30 Days #30 cap 11/29/21 [Rx] Clopidogrel [Plavix] 75 mg PO DAILY 30 Days #30 tab 03/24/22 [Rx] Glimepiride [Amaryl] 2 mg PO DAILY #30 tab 03/24/22 [Rx] INSULIN ASPART (NovoLOG) [NovoLOG (formulary)] 10 unit SQ AC-TID #1 each 03/24/22 [Rx] Insulin Glargine [Lantus Vial] 65 unit SQ HS #1 each 03/24/22 [Rx] Pantoprazole [Protonix] 40 mg PO BID 30 Days #60 tab 03/24/22 [Rx] amLODIPine [Norvasc] 10 mg PO DAILY #30 tab 03/24/22 [Rx] carvediloL [Coreg] 3.125 mg PO BID-W/MEALS #60 tab 03/24/22 [Rx] hydroCHLOROthiazide [Hydrodiuril] 25 mg PO DAILY #30 tab 03/24/22 [Rx] lisinopriL [Zestril] 20 mg PO DAILY #30 tab 03/24/22 [Rx] Apixaban [Eliquis Starter Pack (for VTE)] 5 - 10 mg PO DIRECTED 30 Days #1 each 06/03/22 [Rx] HYDROcodone/APAP 10-325MG [[place] 10-325] 1 each PO Q4HR PRN #18 tab 06/04/22 [Rx] Follow up Appointment(s)/Referral(s): Betito Romo MD [Primary Care Provider] - 1-2 days Stephen Dennison DO [Doctor of Osteopathic Medicine] - 1 Week Activity/Diet/Wound Care/Special Instructions: Diet: Cardiac FU with your PCP within 1-2 days of DC. FU with Vascular surgery within 1 week of DC. Take all medications as advised. Hold Aspirin while you are on Eliquis. Continue Plavix. Discharge Disposition: HOME SELF-CARE
[2022-06-04] MEDS: lisinopriL 20 MG TAB PO SCH (10:20)
[2022-06-04] MEDS: PANTOPRAZOLE 40 MG TABLET PO SCH (10:21)
[2022-06-04] MEDS: APIXABAN 5 MG TAB PO SCH (10:23)
[2022-06-04 11:57] LABS: Glucose,Whole Blood 351 mg/dL (70-110)
[2022-06-04 12:04] VITALS: BP 169/96; PULSE 80; RESP 17; TEMP 98.3
== END 2022-06-04 12:50 | disposition home or self-care (01) ==
LOC: EC 19:12 → 6NMEDSUR 23:53
PROVIDERS: ADMIT Internal Medicine; ATTEND Internal Medicine
DX: I82.411 Acute embolism and thrombosis of right femoral vein (principal); I82.431 Acute embolism and thrombosis of right popliteal vein; E11.65 Type 2 diabetes mellitus with hyperglycemia; E11.51 Type 2 diabetes mellitus with diabetic peripheral angiopathy without gangrene; I10 Essential (primary) hypertension; E78.5 Hyperlipidemia, unspecified; H40.9 Unspecified glaucoma; Z91.19 Patient's noncompliance with other medical treatment and regimen; Z79.82 Long term (current) use of aspirin; Z79.02 Long term (current) use of antithrombotics/antiplatelets; Z79.84 Long term (current) use of oral hypoglycemic drugs; Z79.4 Long term (current) use of insulin; Z79.899 Other long term (current) drug therapy; Z88.6 Allergy status to analgesic agent; Z88.8 Allergy status to other drugs, medicaments and biological substances; Z87.01 Personal history of pneumonia (recurrent); Z96.89 Presence of other specified functional implants; Z95.828 Presence of other vascular implants and grafts; Z86.718 Personal history of other venous thrombosis and embolism; Z86.14 Personal history of Methicillin resistant Staphylococcus aureus infection; Z86.69 Personal history of other diseases of the nervous system and sense organs; Z87.891 Personal history of nicotine dependence; Z89.412 Acquired absence of left great toe; Z98.890 Other specified postprocedural states; Z82.5 Family history of asthma and other chronic lower respiratory diseases; Z82.49 Family history of ischemic heart disease and other diseases of the circulatory system
CPT/HCPCS: 96376; 96365; 96366; 96375; 99284; 97162; 97166; 80053; 82803; 82009; 83735; 85025; 85730 ×2; 81001; 83036; 93971; G0378 ×2; J2270 ×2; J1644 ×2

== ENCOUNTER 2022-07-07 15:50 | Inpatient (IN) | payer MEDICARE, OTHER ==
[2022-07-07] MEDS ORDERED: SODIUM CHLORIDE 0.9% 500 ML 500 ML IV STA (21:19)
[2022-07-07 21:51] LABS: Glucose,Whole Blood 376 mg/dL (70-110)
--- NOTE | 2022-07-07 22:00 | ED ---
General Adult HPI - General Chief complaint: Recheck/Abnormal Lab/Rx Stated complaint: PCP SENT, High blood sugar Time Seen by Provider: 07/07/22 21:05 Source: patient Mode of arrival: ambulatory Limitations: no limitations - History of Present Illness Initial comments: This patient is a 56-year-old man with history of diabetes who states that he was told to come here by his primary doctor. The patient had been describing a number of problems that have been going on for weeks now. He has had frequent urination and thirst. His home glucose readings were high. Based on the symptoms, he was directed here by his primary physician Dr. Romo. The patient has not had vomiting today. No chest pain. No abdominal pain. He does complain of having over 20 pounds weight loss going back months now. He is not attempting to lose weight. -: days(s) Improves with: none Worsens with: none Associated Symptoms: denies other symptoms, other (Polydipsia and polyuria.) Treatments Prior to Arrival: none - Related Data Home Medications Medication Instructions Recorded Confirmed Apixaban [Eliquis Starter Pack See Taper PO DIRECTED 07/07/22 07/07/22 (for VTE)] Previous Rx's Medication Instructions Recorded DULoxetine HCL [Cymbalta] 20 mg PO DAILY 30 Days #30 cap 11/29/21 Clopidogrel [Plavix] 75 mg PO DAILY 30 Days #30 tab 03/24/22 Glimepiride [Amaryl] 2 mg PO DAILY #30 tab 03/24/22 INSULIN ASPART (NovoLOG) [NovoLOG 10 unit SQ AC-TID #1 each 03/24/22 (formulary)] Insulin Glargine [Lantus Vial] 65 unit SQ HS #1 each 03/24/22 Pantoprazole [Protonix] 40 mg PO BID 30 Days #60 tab 03/24/22 amLODIPine [Norvasc] 10 mg PO DAILY #30 tab 03/24/22 carvediloL [Coreg] 3.125 mg PO BID-W/MEALS #60 tab 03/24/22 hydroCHLOROthiazide [Hydrodiuril] 25 mg PO DAILY #30 tab 03/24/22 lisinopriL [Zestril] 20 mg PO DAILY #30 tab 03/24/22 Allergies Allergy/AdvReac Type Severity Reaction Status Date / Time atorvastatin [From Lipitor] Allergy Swelling Verified 07/07/22 22:43 ibuprofen Allergy Swelling Verified 07/07/22 22:43 pregabalin [From Lyrica] Allergy Swelling Verified 07/07/22 22:43 Review of Systems ROS Statement: Those systems with pertinent positive or pertinent negative responses have been documented in the HPI. ROS Other: All systems not noted in ROS Statement are negative. Constitutional: Reports: weakness. Denies: fever, chills Respiratory: Denies: cough, dyspnea Cardiovascular: Denies: chest pain, palpitations, edema, syncope Endocrine: Reports: fatigue, polydipsia, polyuria Gastrointestinal: Reports: nausea. Denies: abdominal pain, vomiting, diarrhea, constipation Genitourinary: Denies: dysuria, hematuria Musculoskeletal: Denies: back pain Skin: Denies: rash Neurological: Denies: headache, weakness Past Medical History Past Medical History: Atrial Fibrillation, Diabetes Mellitus, Deep Vein Thrombosis (DVT), Hyperlipidemia, Hypertension, Myocardial Infarction ([place]), Pneumonia, Vascular Disorder Additional Past Medical History / Comment(s): uvitis glaucoma, PVD, dvt to lower left leg Last Myocardial Infarction Date:: unknown History of Any Multi-Drug Resistant Organisms: MRSA Date of last positivie culture/infection: 06/30/20 MDRO Source:: Left Leg Past Surgical History: Hernia Repair, Orthopedic Surgery Additional Past Surgical History / Comment(s): aortgram w/ runnoff, eye surg implant, bilateral knee SX, left vein stripping in 02/2020 x2, vein graft and toe amputation Past Anesthesia/Blood Transfusion Reactions: No Reported Reaction Additional Past Anesthesia/Blood Transfusion Reaction / Comment(s): no hx blood transfusion Past Psychological History: No Psychological Hx Reported Smoking Status: Former smoker Past Alcohol Use History: Rare Past Drug Use History: Marijuana - Past Family History Mother History Unknown: Yes Brother(s) Family Medical History: COPD Additional Family Medical History / Comment(s): passed from COPD Father Family Medical History: Myocardial Infarction ([place]) Additional Family Medical History / Comment(s): passed from [place] General Exam Limitations: no limitations General appearance: alert, in no apparent distress Head exam: Present: atraumatic, normocephalic Eye exam: Present: normal appearance. Absent: scleral icterus, conjunctival injection ENT exam: Present: normal oropharynx Neck exam: Present: normal inspection, full ROM. Absent: meningismus Respiratory exam: Present: normal lung sounds bilaterally. Absent: respiratory distress, wheezes, rales, rhonchi, stridor Cardiovascular Exam: Present: regular rate, normal rhythm, normal heart sounds. Absent: systolic murmur, diastolic murmur, rubs, gallop GI/Abdominal exam: Present: soft. Absent: distended, tenderness, guarding, rebound, rigid, mass Extremities exam: Present: normal inspection, normal capillary refill. Absent: pedal edema, calf tenderness Back exam: Present: normal inspection. Absent: CVA tenderness (R), CVA tenderness (L) Neurological exam: Present: alert Skin exam: Present: warm, dry, intact, normal color. Absent: rash Course Vital Signs 07/07/22 07/07/22 07/07/22 16:27 23:45 23:50 Temperature 99.0 F Pulse Rate 55 L 110 H Respiratory 180 H Rate Blood Pressure 190/88 216/111 200/114 O2 Sat by Pulse 100 100 Oximetry 07/08/22 07/08/22 02:15 06:03 Temperature Pulse Rate 77 97 Respiratory 14 Rate Blood Pressure 164/88 178/102 O2 Sat by Pulse 100 100 Oximetry Medical Decision Making - Lab Data Result diagrams: 07/07/22 21:51 07/08/22 05:05 Lab Results 07/07/22 07/07/22 07/07/22 Range/Units 21:50 21:51 21:51 WBC 12.3 H (3.8-10.6) k/uL RBC 5.57 (4.30-5.90) m/uL Hgb 17.0 D (13.0-17.5) gm/dL Hct 50.5 (39.0-53.0) % MCV 90.7 (80.0-100.0) fL MCH 30.5 (25.0-35.0) pg MCHC 33.7 (31.0-37.0) g/dL RDW 12.4 (11.5-15.5) % Plt Count 331 (150-450) k/uL MPV 8.4 Neutrophils % 86 % Lymphocytes % 10 % Monocytes % 3 % Eosinophils % 1 % Basophils % 0 % Neutrophils # 10.5 H (1.3-7.7) k/uL Lymphocytes # 1.2 (1.0-4.8) k/uL Monocytes # 0.4 (0-1.0) k/uL Eosinophils # 0.1 (0-0.7) k/uL Basophils # 0.0 (0-0.2) k/uL Sodium (137-145) mmol/L Potassium (3.5-5.1) mmol/L Chloride (98-107) mmol/L Carbon Dioxide (22-30) mmol/L Anion Gap mmol/L BUN (9-20) mg/dL Creatinine (0.66-1.25) mg/dL Est GFR (CKD-EPI)AfAm (>60 ml/min/1.73 sqM) Est GFR (CKD-EPI)NonAf (>60 ml/min/1.73 sqM) Glucose (74-99) mg/dL POC Glucose (mg/dL) 376 H (70-110) mg/dL POC Glu Auto Radiator Mechanic ID Talya Le Calcium (8.4-10.2) mg/dL Total Bilirubin (0.2-1.3) mg/dL AST (17-59) U/L ALT (4-49) U/L Alkaline Phosphatase (38-126) U/L Total Protein (6.3-8.2) g/dL Albumin (3.5-5.0) g/dL Urine Color Light Yellow Urine Appearance Clear (Clear) Urine pH 5.5 (5.0-8.0) Ur Specific [place] 1.030 (1.001-1.035) Urine Protein 2+ H (Negative) Urine Glucose (UA) 4+ H (Negative) Urine Ketones 4+ H (Negative) Urine Blood Trace H (Negative) Urine Nitrite Negative (Negative) Urine Bilirubin Negative (Negative) Urine Urobilinogen <2.0 (<2.0) mg/dL Ur Leukocyte Esterase Negative (Negative) Urine RBC 3 (0-5) /hpf Urine WBC 1 (0-5) /hpf Hyaline Casts 1 (0-2) /lpf Urine Mucus Rare H (None) /hpf Urine Yeast (Budding) Many H (None) /hpf Acetone, Qual (Negative) 07/07/22 Range/Units 21:51 WBC (3.8-10.6) k/uL RBC (4.30-5.90) m/uL Hgb (13.0-17.5) gm/dL Hct (39.0-53.0) % MCV (80.0-100.0) fL MCH (25.0-35.0) pg MCHC (31.0-37.0) g/dL RDW (11.5-15.5) % Plt Count (150-450) k/uL MPV Neutrophils % % Lymphocytes % % Monocytes % % Eosinophils % % Basophils % % Neutrophils # (1.3-7.7) k/uL Lymphocytes # (1.0-4.8) k/uL Monocytes # (0-1.0) k/uL Eosinophils # (0-0.7) k/uL Basophils # (0-0.2) k/uL Sodium 133 L (137-145) mmol/L Potassium 4.2 (3.5-5.1) mmol/L Chloride 84 L (98-107) mmol/L Carbon Dioxide 15 L (22-30) mmol/L Anion Gap 34 mmol/L BUN 23 H (9-20) mg/dL Creatinine 1.13 (0.66-1.25) mg/dL Est GFR (CKD-EPI)AfAm 83 (>60 ml/min/1.73 sqM) Est GFR (CKD-EPI)NonAf 72 (>60 ml/min/1.73 sqM) Glucose 411 H (74-99) mg/dL POC Glucose (mg/dL) (70-110) mg/dL POC Glu Auto Radiator Mechanic ID Calcium 10.4 H (8.4-10.2) mg/dL Total Bilirubin 1.4 H (0.2-1.3) mg/dL AST 32 (17-59) U/L ALT 40 (4-49) U/L Alkaline Phosphatase 136 H (38-126) U/L Total Protein 9.5 H (6.3-8.2) g/dL Albumin 5.8 H (3.5-5.0) g/dL Urine Color Urine Appearance (Clear) Urine pH (5.0-8.0) Ur Specific [place] (1.001-1.035) Urine Protein (Negative) Urine Glucose (UA) (Negative) Urine Ketones (Negative) Urine Blood (Negative) Urine Nitrite (Negative) Urine Bilirubin (Negative) Urine Urobilinogen (<2.0) mg/dL Ur Leukocyte Esterase (Negative) Urine RBC (0-5) /hpf Urine WBC (0-5) /hpf Hyaline Casts (0-2) /lpf Urine Mucus (None) /hpf Urine Yeast (Budding) (None) /hpf Acetone, Qual Positive (Negative) Critical Care Time Critical Care Time: Yes (35 minutes) Disposition Clinical Impression: Diabetic ketoacidosis Disposition: ADMITTED IP TO THIS [facility] Condition: Serious Is patient prescribed a controlled substance at d/c from ED?: No
[2022-07-07 22:03] LABS: Basophils % (A) 0 %; Eosinophils # (A) 0.1 k/uL (0-0.7); Eosinophils % (A) 1 %; HCT 50.5 % (39.0-53.0); Lymphocytes # (A) 1.2 k/uL (1.0-4.8); Lymphocytes % (A) 10 %; MCH 30.5 pg (25.0-35.0); MCHC 33.7 g/dL (31.0-37.0); MCV 90.7 fL (80.0-100.0); Mean Platelet Volume 8.4; Monocytes # (A) 0.4 k/uL (0-1.0); Monocytes % (A) 3 %; Neutrophils # (A) 10.5 k/uL (1.3-7.7); Neutrophils % (A) 86 %; Platelet Count 331 k/uL (150-450); RBC 5.57 m/uL (4.30-5.90); RDW 12.4 % (11.5-15.5); WBC 12.3 k/uL (3.8-10.6)
[2022-07-07 22:07] LABS: Appearance,Urine Clear (Clear); Bilirubin,Urine Negative (Negative); Blood,Urine Trace (Negative); Budding Yeast,Urine Many /hpf; Color,Urine Light Yellow; Glucose,Urine (UA) 4+ (Negative); Hyaline Casts,Urine 1 /lpf (0-2); Leukocyte Esterase,Urine Negative (Negative); Mucus,Urine Rare /hpf; Nitrite,Urine Negative (Negative); PH, Urine 5.5 (5.0-8.0); Protein,Urine 2+ (Negative); RBC,Urine 3 /hpf (0-5); Urobilinogen,Urine <2.0 mg/dL (<2.0); WBC,Urine 1 /hpf (0-5)
[2022-07-07 22:09] LABS: Ketones,Urine 4+ (Negative)
[2022-07-07 22:16] LABS: ALT 40 U/L (4-49); AST 32 U/L (17-59); African American GFR (CKD) 83 (>60 ml/min/1.73 sqM); Albumin 5.8 g/dL (3.5-5.0); Alkaline Phosphatase 136 U/L (38-126); Anion Gap 34 mmol/L; Blood Urea Nitrogen 23 mg/dL (9-20); Calcium 10.4 mg/dL (8.4-10.2); Carbon Dioxide 15 mmol/L (22-30); Chloride 84 mmol/L (98-107); Glucose 411 mg/dL (74-99); Non-African American GFR(CKD) 72 (>60 ml/min/1.73 sqM); Potassium 4.2 mmol/L (3.5-5.1); Sodium 133 mmol/L (137-145); Total Bilirubin 1.4 mg/dL (0.2-1.3); Total Protein 9.5 g/dL (6.3-8.2)
[2022-07-07] MEDS ORDERED: INSULIN REGULAR BOLUS (FROM DRIP BAG) IV ONE (22:50)
[2022-07-07] MEDS ORDERED: SODIUM CHLORIDE 0.9% 1,000 ML IV ONE (22:50)
[2022-07-07] MEDS ORDERED: INSULIN REGULAR 100 UNIT in SODIUM CHLORIDE 0.9% 100 ML IV SCH (23:00)
[2022-07-08 00:49] LABS: Glucose,Whole Blood 288 mg/dL (70-110)
[2022-07-08] MEDS: D5-0.45% NACL WITH KCL 20MEQ/L 1,000 ML IV SCH ×3 (01:00→15:19)
[2022-07-08 01:51] LABS: African American GFR (CKD) >90 (>60 ml/min/1.73 sqM); Anion Gap 23 mmol/L; Blood Urea Nitrogen 23 mg/dL (9-20); Carbon Dioxide 16 mmol/L (22-30); Chloride 95 mmol/L (98-107); Glucose 293 mg/dL (74-99); Non-African American GFR(CKD) 80 (>60 ml/min/1.73 sqM); Phosphorus 4.6 mg/dL (2.5-4.5); Potassium 3.6 mmol/L (3.5-5.1); Sodium 134 mmol/L (137-145)
[2022-07-08 02:04] LABS: Glucose,Whole Blood 271 mg/dL (70-110)
[2022-07-08 03:04] LABS: Glucose,Whole Blood 260 mg/dL (70-110)
[2022-07-08 04:06] LABS: Glucose,Whole Blood 270 mg/dL (70-110)
[2022-07-08 05:09] LABS: Glucose,Whole Blood 304 mg/dL (70-110)
[2022-07-08 05:55] LABS: African American GFR (CKD) >90 (>60 ml/min/1.73 sqM); Anion Gap 11 mmol/L; Blood Urea Nitrogen 21 mg/dL (9-20); Carbon Dioxide 25 mmol/L (22-30); Chloride 97 mmol/L (98-107); Glucose 199 mg/dL (74-99); Non-African American GFR(CKD) >90 (>60 ml/min/1.73 sqM); Phosphorus 2.8 mg/dL (2.5-4.5); Potassium 3.7 mmol/L (3.5-5.1); Sodium 133 mmol/L (137-145)
[2022-07-08 06:01] LABS: Glucose,Whole Blood 164 mg/dL (70-110)
[2022-07-08 06:59] LABS: Glucose,Whole Blood 88 mg/dL (70-110)
[2022-07-08 07:38] LABS: Glucose,Whole Blood 80 mg/dL (70-110)
[2022-07-08 08:19] LABS: Glucose,Whole Blood 171 mg/dL (70-110)
[2022-07-08 09:30] LABS: Glucose,Whole Blood 146 mg/dL (70-110)
[2022-07-08 10:40] LABS: Glucose,Whole Blood 114 mg/dL (70-110)
[2022-07-08] MEDS: amLODIPine 10 MG TAB PO SCH (10:57)
[2022-07-08] MEDS: hydroCHLOROthiazide 25 MG TAB PO SCH (10:57)
[2022-07-08] MEDS: carvediloL 3.125 MG TAB PO SCH ×2 (10:58→17:24)
[2022-07-08] MEDS: GLIMEPIRIDE 2 MG TAB PO SCH (10:58)
[2022-07-08] MEDS: PANTOPRAZOLE 40 MG TABLET PO SCH ×2 (10:58→17:24)
[2022-07-08] MEDS: lisinopriL 20 MG TAB PO SCH (10:58)
[2022-07-08] MEDS: CLOPIDOGREL 75 MG TAB PO SCH (10:58)
[2022-07-08] MEDS ORDERED: hydrALAZINE HCL 25 MG TAB PO PRN (11:05)
[2022-07-08 11:36] LABS: Glucose,Whole Blood 173 mg/dL (70-110)
[2022-07-08] MEDS: DULoxetine HCL 20 MG CAPSULE.DR PO SCH (11:56)
--- NOTE | 2022-07-08 12:44 | P.HPIM ---
History of Present Illness This is a pleasant 56 years old -[place] male with multiple medical problems as above He was sent by his PCP for high glucose . Patient states that she supposed to take insulin long-acting 65 units at bedtime and 10 units with meals, however he was not taking his insulin for the last 4 months because of insurance issue and affordability. He felt generally weak today and he went to see his PCP Dr. Sharma referred him to the emergency room for possible DKA. Patient actually his sugar and acetone were positive on admission. However patient denies any headache or dizziness or weakness or numbness. No slurred speech or blurred vision. No chest pain or dyspnea or coughing. No abdominal pain or vomiting or diarrhea. No urinary complaints like dysuria urgency. No fever. He denies smoking, alcohol or illicit drugs. Patient is afebrile, heart rate 94, blood pressure 196/104 anion gap was 34, then closed this morning to 11. WBC 12.3, glucose is better controlled 80-171. Rest of the BMP is reviewed. Creatinine 1.0. Liver enzymes not elevated. Imaging done in the emergency room Patient is started on DKA treatment protocol Review of Systems Review of systems CONSTITUTIONAL: No fever, no malaise, no fatigue. HEENT: No recent visual problems or hearing problems. Denied any sore throat. CARDIOVASCULAR: No orthopnea, PND, no palpitations, no syncope. PULMONARY: No shortness of breath, no cough, no hemoptysis. GASTROINTESTINAL: No diarrhea, no nausea, no vomiting, no abdominal pain. Normoactive bowel sounds. NEUROLOGICAL: No headaches, no weakness, no numbness. HEMATOLOGICAL: Denies any bleeding or petechiae. GENITOURINARY: Denies any burning micturition, frequency, or urgency. MUSCULOSKELETAL/RHEUMATOLOGICAL: Denies any joint pain, swelling, or any muscle pain. ENDOCRINE: Denies any polyuria or polydipsia. Past Medical History Past Medical History: Atrial Fibrillation, Diabetes Mellitus, Deep Vein Thrombosis (DVT), Hyperlipidemia, Hypertension, Myocardial Infarction ([place]), Pneumonia, Vascular Disorder Additional Past Medical History / Comment(s): uvitis glaucoma, PVD, dvt to lower left leg Last Myocardial Infarction Date:: unknown History of Any Multi-Drug Resistant Organisms: MRSA Date of last positivie culture/infection: 06/30/20 MDRO Source:: Left Leg Past Surgical History: Hernia Repair, Orthopedic Surgery Additional Past Surgical History / Comment(s): aortgram w/ runnoff, eye surg implant, bilateral knee SX, left vein stripping in 02/2020 x2, vein graft and toe amputation Past Anesthesia/Blood Transfusion Reactions: No Reported Reaction Additional Past Anesthesia/Blood Transfusion Reaction / Comment(s): no hx blood transfusion Past Psychological History: No Psychological Hx Reported Smoking Status: Former smoker Past Alcohol Use History: Rare Past Drug Use History: Marijuana - Past Family History Mother History Unknown: Yes Brother(s) Family Medical History: COPD Additional Family Medical History / Comment(s): passed from COPD Father Family Medical History: Myocardial Infarction ([place]) Additional Family Medical History / Comment(s): passed from [place] Medications and Allergies Home Medications Medication Instructions Recorded Confirmed Type DULoxetine HCL [Cymbalta] 20 mg PO DAILY 30 Days #30 cap 11/29/21 07/07/22 Rx Clopidogrel [Plavix] 75 mg PO DAILY 30 Days #30 tab 03/24/22 07/07/22 Rx Glimepiride [Amaryl] 2 mg PO DAILY #30 tab 03/24/22 07/07/22 Rx INSULIN ASPART (NovoLOG) [NovoLOG 10 unit SQ AC-TID #1 each 03/24/22 07/07/22 Rx (formulary)] Insulin Glargine [Lantus Vial] 65 unit SQ HS #1 each 03/24/22 07/07/22 Rx Pantoprazole [Protonix] 40 mg PO BID 30 Days #60 tab 03/24/22 07/07/22 Rx amLODIPine [Norvasc] 10 mg PO DAILY #30 tab 03/24/22 07/07/22 Rx carvediloL [Coreg] 3.125 mg PO BID-W/MEALS #60 tab 03/24/22 07/07/22 Rx hydroCHLOROthiazide [Hydrodiuril] 25 mg PO DAILY #30 tab 03/24/22 07/07/22 Rx lisinopriL [Zestril] 20 mg PO DAILY #30 tab 03/24/22 07/07/22 Rx Apixaban [Eliquis Starter Pack See Taper PO DIRECTED 07/07/22 07/07/22 History (for VTE)] Allergies Allergy/AdvReac Type Severity Reaction Status Date / Time atorvastatin [From Lipitor] Allergy Swelling Verified 07/07/22 22:43 ibuprofen Allergy Swelling Verified 07/07/22 22:43 pregabalin [From Lyrica] Allergy Swelling Verified 07/07/22 22:43 Physical Exam Vitals: Vital Signs Temp Pulse Resp BP Pulse Ox 07/08/22 10:43 98.1 F 94 18 196/104 100 07/08/22 06:03 97 178/102 100 07/08/22 02:15 77 14 164/88 100 07/07/22 23:50 200/114 07/07/22 23:45 110 H 216/111 100 07/07/22 16:27 99.0 F 55 L 180 H 190/88 100 Intake and Output 07/07/22 07/08/22 07/08/22 22:59 06:59 14:59 Intake Total 40.465 29.534 Balance 40.465 29.534 Intake: Intake, IV Titration 40.465 29.534 Amount Insulin Regular 100 unit 40.465 29.534 In Sodium Chloride 0.9% 100 ml @ 0.1 UNITS/KG/HR 5.635 mls/hr IV .[id number] [facility] Rx#:[id number] Other: Weight 55.792 kg GENERAL: The patient is alert and oriented x3, not in any acute distress. Well developed, well nourished. HEENT: Pupils are round and equally reacting to light. EOMI. No scleral icterus. No conjunctival pallor. Normocephalic, atraumatic. No pharyngeal erythema. No thyromegaly. CARDIOVASCULAR: S1 and S2 present. No murmurs, rubs, or gallops. PULMONARY: Chest is clear to auscultation, no wheezing or crackles. ABDOMEN: Soft, nontender, nondistended, normoactive bowel sounds. No palpable organomegaly. MUSCULOSKELETAL: No joint swelling or deformity. EXTREMITIES: No cyanosis, clubbing, or pedal edema. NEUROLOGICAL: Gross neurological examination did not reveal any focal deficits. SKIN: No rashes. no petechiae. Results CBC & Chem 7: 07/07/22 21:51 07/08/22 05:05 Labs: Abnormal Lab Results - Last 24 Hours (Table) 07/07/22 07/07/22 07/07/22 Range/Units 21:50 21:51 21:51 WBC 12.3 H (3.8-10.6) k/uL Neutrophils # 10.5 H (1.3-7.7) k/uL Sodium (137-145) mmol/L Chloride (98-107) mmol/L Carbon Dioxide (22-30) mmol/L BUN (9-20) mg/dL Glucose (74-99) mg/dL POC Glucose (mg/dL) 376 H (70-110) mg/dL Calcium (8.4-10.2) mg/dL Phosphorus (2.5-4.5) mg/dL Total Bilirubin (0.2-1.3) mg/dL Alkaline Phosphatase (38-126) U/L Total Protein (6.3-8.2) g/dL Albumin (3.5-5.0) g/dL Urine Protein 2+ H (Negative) Urine Glucose (UA) 4+ H (Negative) Urine Ketones 4+ H (Negative) Urine Blood Trace H (Negative) Urine Mucus Rare H (None) /hpf Urine Yeast (Budding) Many H (None) /hpf 07/07/22 07/08/22 07/08/22 Range/Units 21:51 00:45 01:09 WBC (3.8-10.6) k/uL Neutrophils # (1.3-7.7) k/uL Sodium 133 L 134 L (137-145) mmol/L Chloride 84 L 95 L (98-107) mmol/L Carbon Dioxide 15 L 16 L (22-30) mmol/L BUN 23 H 23 H (9-20) mg/dL Glucose 411 H 293 H (74-99) mg/dL POC Glucose (mg/dL) 288 H (70-110) mg/dL Calcium 10.4 H (8.4-10.2) mg/dL Phosphorus 4.6 H (2.5-4.5) mg/dL Total Bilirubin 1.4 H (0.2-1.3) mg/dL Alkaline Phosphatase 136 H (38-126) U/L Total Protein 9.5 H (6.3-8.2) g/dL Albumin 5.8 H (3.5-5.0) g/dL Urine Protein (Negative) Urine Glucose (UA) (Negative) Urine Ketones (Negative) Urine Blood (Negative) Urine Mucus (None) /hpf Urine Yeast (Budding) (None) /hpf 07/08/22 07/08/22 07/08/22 Range/Units 02:02 03:01 04:03 WBC (3.8-10.6) k/uL Neutrophils # (1.3-7.7) k/uL Sodium (137-145) mmol/L Chloride (98-107) mmol/L Carbon Dioxide (22-30) mmol/L BUN (9-20) mg/dL Glucose (74-99) mg/dL POC Glucose (mg/dL) 271 H 260 H 270 H (70-110) mg/dL Calcium (8.4-10.2) mg/dL Phosphorus (2.5-4.5) mg/dL Total Bilirubin (0.2-1.3) mg/dL Alkaline Phosphatase (38-126) U/L Total Protein (6.3-8.2) g/dL Albumin (3.5-5.0) g/dL Urine Protein (Negative) Urine Glucose (UA) (Negative) Urine Ketones (Negative) Urine Blood (Negative) Urine Mucus (None) /hpf Urine Yeast (Budding) (None) /hpf 07/08/22 07/08/22 07/08/22 Range/Units 05:05 05:05 05:59 WBC (3.8-10.6) k/uL Neutrophils # (1.3-7.7) k/uL Sodium 133 L (137-145) mmol/L Chloride 97 L (98-107) mmol/L Carbon Dioxide (22-30) mmol/L BUN 21 H (9-20) mg/dL Glucose 199 H (74-99) mg/dL POC Glucose (mg/dL) 304 H 164 H (70-110) mg/dL Calcium (8.4-10.2) mg/dL Phosphorus (2.5-4.5) mg/dL Total Bilirubin (0.2-1.3) mg/dL Alkaline Phosphatase (38-126) U/L Total Protein (6.3-8.2) g/dL Albumin (3.5-5.0) g/dL Urine Protein (Negative) Urine Glucose (UA) (Negative) Urine Ketones (Negative) Urine Blood (Negative) Urine Mucus (None) /hpf Urine Yeast (Budding) (None) /hpf 07/08/22 07/08/2207/08/22 Range/Units 08:18 09:28 10:38 WBC (3.8-10.6) k/uL Neutrophils # (1.3-7.7) k/uL Sodium (137-145) mmol/L Chloride (98-107) mmol/L Carbon Dioxide (22-30) mmol/L BUN (9-20) mg/dL Glucose (74-99) mg/dL POC Glucose (mg/dL) 171 H 146 H 114 H (70-110) mg/dL Calcium (8.4-10.2) mg/dL Phosphorus (2.5-4.5) mg/dL Total Bilirubin (0.2-1.3) mg/dL Alkaline Phosphatase (38-126) U/L Total Protein (6.3-8.2) g/dL Albumin (3.5-5.0) g/dL Urine Protein (Negative) Urine Glucose (UA) (Negative) Urine Ketones (Negative) Urine Blood (Negative) Urine Mucus (None) /hpf Urine Yeast (Budding) (None) /hpf Assessment and Plan Assessment: Diabetic ketoacidosis, present on admission Hypertension, uncontrolled with urgency on admission History of GERD Insulin-dependent diabetes mellitus Chronic atrial fibrillation on liquids History of deep venous thrombosis Acetone is positive. Plan: This is a pleasant 56 years old male with BKA Continue with insulin per protocol and switch to continue as long and short- acting insulin per protocol Continue with gentle hydration Resume his blood pressure medication (both scheduled and when necessary )and monitor closely Labs and medication were reviewed.. Continue same treatment. Continue with symptomatic treatment. Resume home medication. Monitor lytes and vitals. DVT and GI prophylaxis. Further recommendations as per clinical course of the patient DVT prophylaxis: Eliquis GI Prophylaxis: Ppi Prognosis is guarded
[2022-07-08 12:54] LABS: Glucose,Whole Blood 164 mg/dL (70-110)
--- NOTE | 2022-07-08 13:21 | XR ---
EXAMINATION TYPE: XR chest 2V DATE OF EXAM: 07/08/2022 COMPARISON: 05/03/2021 HISTORY: 56-year-old male with DKA TECHNIQUE: AP and lateral views FINDINGS: The cardiomediastinal silhouette, aorta, and pulmonary vasculature are within normal limits. Lungs an d pleural spaces are clear. IMPRESSION: No acute cardiopulmonary process.
[2022-07-08] MEDS ORDERED: DEXTROSE 50% SYRINGE 50 ML IVP PRN ×2 (15:07)
[2022-07-08] MEDS: SODIUM CHLORIDE 0.9% 1,000 ML IV SCH ×3 (15:18→17:27)
[2022-07-08 16:44] LABS: Glucose,Whole Blood 215 mg/dL (70-110)
[2022-07-08] MEDS: INSULIN ASPART (NovoLOG) 100 UNIT/ML VIAL SQ SCH ×3 (17:25→20:39)
[2022-07-08 20:21] LABS: Glucose,Whole Blood 112 mg/dL (70-110)
[2022-07-08] MEDS: INSULIN DETEMIR (LEVEMIR) 100 UNIT/ML SYR SQ SCH (20:39)
[2022-07-08] MEDS: APIXABAN 5 MG TAB PO SCH (22:09)
[2022-07-09 05:52] LABS: Glucose,Whole Blood 141 mg/dL (70-110)
[2022-07-09] MEDS: INSULIN ASPART (NovoLOG) 100 UNIT/ML VIAL SQ SCH ×7 (06:37→19:59)
[2022-07-09] MEDS: GLIMEPIRIDE 2 MG TAB PO SCH (07:18)
[2022-07-09] MEDS: carvediloL 3.125 MG TAB PO SCH ×2 (07:18→17:34)
[2022-07-09] MEDS: PANTOPRAZOLE 40 MG TABLET PO SCH ×2 (07:18→14:44)
[2022-07-09 08:15] LABS: Basophils % (A) 0 %; Eosinophils % (A) 0 %; HCT 42.4 % (39.0-53.0); HGB 14.2 gm/dL (13.0-17.5); Lymphocytes # (A) 1.9 k/uL (1.0-4.8); Lymphocytes % (A) 17 %; MCH 29.8 pg (25.0-35.0); MCHC 33.5 g/dL (31.0-37.0); MCV 88.8 fL (80.0-100.0); Monocytes # (A) 0.6 k/uL (0-1.0); Monocytes % (A) 5 %; Neutrophils # (A) 8.4 k/uL (1.3-7.7); Neutrophils % (A) 76 %; Platelet Count 269 k/uL (150-450); RBC 4.78 m/uL (4.30-5.90); RDW 12.4 % (11.5-15.5)
[2022-07-09 08:22] LABS: African American GFR (CKD) >90 (>60 ml/min/1.73 sqM); Anion Gap 7 mmol/L; Blood Urea Nitrogen 12 mg/dL (9-20); Carbon Dioxide 29 mmol/L (22-30); Chloride 93 mmol/L (98-107); Glucose 114 mg/dL (74-99); Magnesium 1.7 mg/dL (1.6-2.3); Non-African American GFR(CKD) 89 (>60 ml/min/1.73 sqM); Potassium 4.2 mmol/L (3.5-5.1); Sodium 129 mmol/L (137-145)
[2022-07-09] MEDS: CLOPIDOGREL 75 MG TAB PO SCH (08:51)
[2022-07-09] MEDS: hydroCHLOROthiazide 25 MG TAB PO SCH (08:51)
[2022-07-09] MEDS: amLODIPine 10 MG TAB PO SCH (08:52)
[2022-07-09] MEDS: lisinopriL 20 MG TAB PO SCH (08:52)
[2022-07-09] MEDS: APIXABAN 5 MG TAB PO SCH ×2 (08:52→19:59)
[2022-07-09] MEDS: DULoxetine HCL 20 MG CAPSULE.DR PO SCH (08:52)
[2022-07-09 11:49] LABS: Glucose,Whole Blood 71 mg/dL (70-110)
[2022-07-09 12:06] VITALS: BMI 21.4
[2022-07-09] MEDS: levETIRAcetam 500 MG TAB PO SCH ×2 (14:44→19:59)
[2022-07-09] MEDS ORDERED: CALCIUM CARBONATE 500 MG CHEWABLE PO PRN (14:51)
[2022-07-09 16:45] LABS: Glucose,Whole Blood 298 mg/dL (70-110)
[2022-07-09 19:42] LABS: Glucose,Whole Blood 212 mg/dL (70-110)
--- NOTE | 2022-07-09 19:53 | P.PN ---
Subjective This is a pleasant 56 years old -[place] male with multiple medical problems as above He was sent by his PCP for high glucose . Patient states that she supposed to take insulin long-acting 65 units at bedtime and 10 units with meals, however he was not taking his insulin for the last 4 months because of insurance issue and affordability. He felt generally weak today and he went to see his PCP Dr. Sharma referred him to the emergency room for possible DKA. Patient actually his sugar and acetone were positive on admission. However patient denies any headache or dizziness or weakness or numbness. No slurred speech or blurred vision. No chest pain or dyspnea or coughing. No abdominal pain or vomiting or diarrhea. No urinary complaints like dysuria urgency. No fever. He denies smoking, alcohol or illicit drugs. Patient is afebrile, heart rate 94, blood pressure 196/104 anion gap was 34, then closed this morning to 11. WBC 12.3, glucose is better controlled 80-171. Rest of the BMP is reviewed. Creatinine 1.0. Liver enzymes not elevated. Imaging done in the emergency room Patient is started on DKA treatment protocol 07/09/2022 Patient back to baseline. Complaining only for mild epigastric discomfort and requested something for indigestion, comes is provided, abdomen was soft with no tenderness when examined. Discussed the case with Dr. Justin on the neurologist who saw him last year 04/2022 for witnessed seizure at that time he supposed to be in Keppra, he advised patient should be active on Keppra as he has 2 episodes of seizures on 01/2021 and 04/2021. I discussed the case with the patient in details with risks benefits and alternative explained carefully including taking the Keppra compliance should be kept adherence to taking medication on the time. And the risk of rebound seizure if Keppra as missed doses. Risk of recurrent seizure, status epilepticus and/or are explained for him, Patient verbalized understanding and acceptance to start Keppra and continue taking it. Please also discuss with social media sr strategy manager for providing MEDICATION. Glucose 71-to 98 Objective - Vital Signs Vital signs: Vital Signs Temp 98.1 F 07/09/22 08:00 Pulse 84 07/09/22 08:00 Resp 16 07/09/22 08:00 BP 131/80 07/09/22 08:00 Pulse Ox 99 07/09/22 08:00 FiO2 Intake & Output 07/08/22 07/09/22 07/09/22 18:59 06:59 18:59 Intake Total 179.534 750 Output Total 900 Balance 179.534 -900 750 Weight 55.792 kg Intake: Intake, IV Titration 179.534 Amount D5-0.45% NaCl with KCl 150 20Meq/l 1,000 ml @ 150 mls/hr IV .[id number] [facility] Rx# :[id number] Insulin Regular 100 unit 29.534 In Sodium Chloride 0.9% 100 ml @ 0.1 UNITS/KG/HR 5.635 mls/hr IV .[id number] [facility] Rx#:[id number] Oral 750 Output: Urine 900 Other: # Voids 1 - Exam GENERAL: The patient is alert and oriented x3, not in any acute distress. Well developed, well nourished. HEENT: Pupils are round and equally reacting to light. EOMI. No scleral icterus. No conjunctival pallor. Normocephalic, atraumatic. No pharyngeal erythema. No thyromegaly. CARDIOVASCULAR: S1 and S2 present. No murmurs, rubs, or gallops. PULMONARY: Chest is clear to auscultation, no wheezing or crackles. ABDOMEN: Soft, nontender, nondistended, normoactive bowel sounds. No palpable organomegaly. MUSCULOSKELETAL: No joint swelling or deformity. EXTREMITIES: No cyanosis, clubbing, or pedal edema. NEUROLOGICAL: Gross neurological examination did not reveal any focal deficits. SKIN: No rashes. no petechiae. - Labs CBC & Chem 7: 07/09/22 07:23 07/09/22 07:23 Labs: Abnormal Lab Results - Last 24 Hours (Table) 07/08/22 07/08/22 07/09/22 Range/Units 16:39 20:19 05:51 WBC (3.8-10.6) k/uL Neutrophils # (1.3-7.7) k/uL Sodium (137-145) mmol/L Chloride (98-107) mmol/L Glucose (74-99) mg/dL POC Glucose (mg/dL) 215 H 112 H 141 H (70-110) mg/dL 07/09/22 07/09/22 Range/Units 07:23 07:23 WBC 11.0 H (3.8-10.6) k/uL Neutrophils # 8.4 H (1.3-7.7) k/uL Sodium 129 L (137-145) mmol/L Chloride 93 L (98-107) mmol/L Glucose 114 H (74-99) mg/dL POC Glucose (mg/dL) (70-110) mg/dL Assessment and Plan Assessment: Diabetic ketoacidosis, present on admission. Improved Hypertension, uncontrolled with urgency on admission . Controlled currently History of GERD Insulin-dependent diabetes mellitus Chronic atrial fibrillation on liquids History of deep venous thrombosis Acetone is positive. Plan: This is a pleasant 56 years old male with BKA Continue with insulin per protocol and switch to continue as long and short- acting insulin per protocol Continue with gentle hydration Start Brian Resume his blood pressure medication (both scheduled and when necessary )and mo nitor closely Labs and medication were reviewed.. Continue same treatment. Continue with symptomatic treatment. Resume home medication. Monitor lytes and vitals. DVT and GI prophylaxis. Further recommendations as per clinical course of the patient DVT prophylaxis: Eliquis GI Prophylaxis: Ppi Prognosis is guarded
[2022-07-09] MEDS: INSULIN DETEMIR (LEVEMIR) 100 UNIT/ML SYR SQ SCH (19:59)
[2022-07-09 23:56] LABS: Urine Alcohol Positive (Negative); Urine Barbiturate Negative (Negative); Urine Cocaine Positive (Negative); Urine Methadone Negative (Negative); Urine Opiates Negative (Negative); Urine Phencyclidine Negative (Negative)
[2022-07-10] MEDS: GLIMEPIRIDE 2 MG TAB PO SCH (06:49)
[2022-07-10] MEDS: carvediloL 3.125 MG TAB PO SCH ×2 (06:49→18:31)
[2022-07-10] MEDS: PANTOPRAZOLE 40 MG TABLET PO SCH ×2 (06:49→18:31)
[2022-07-10 07:53] LABS: Basophils % (A) 0 %; Eosinophils % (A) 1 %; HCT 38.1 % (39.0-53.0); HGB 12.9 gm/dL (13.0-17.5); Lymphocytes # (A) 1.6 k/uL (1.0-4.8); Lymphocytes % (A) 26 %; MCH 29.9 pg (25.0-35.0); MCV 88.1 fL (80.0-100.0); Mean Platelet Volume 8.4; Monocytes # (A) 0.4 k/uL (0-1.0); Monocytes % (A) 6 %; Neutrophils # (A) 4.2 k/uL (1.3-7.7); Neutrophils % (A) 66 %; Platelet Count 252 k/uL (150-450); RBC 4.32 m/uL (4.30-5.90); RDW 12.8 % (11.5-15.5); WBC 6.4 k/uL (3.8-10.6)
[2022-07-10 08:16] LABS: African American GFR (CKD) >90 (>60 ml/min/1.73 sqM); Anion Gap 9 mmol/L; Blood Urea Nitrogen 17 mg/dL (9-20); Calcium 8.4 mg/dL (8.4-10.2); Carbon Dioxide 25 mmol/L (22-30); Chloride 92 mmol/L (98-107); Glucose 172 mg/dL (74-99); Non-African American GFR(CKD) >90 (>60 ml/min/1.73 sqM); Potassium 3.5 mmol/L (3.5-5.1); Sodium 126 mmol/L (137-145)
[2022-07-10] MEDS: INSULIN ASPART (NovoLOG) 100 UNIT/ML VIAL SQ SCH ×7 (10:05→20:23)
[2022-07-10] MEDS: hydroCHLOROthiazide 25 MG TAB PO SCH (10:11)
[2022-07-10] MEDS: CLOPIDOGREL 75 MG TAB PO SCH (10:11)
[2022-07-10] MEDS: amLODIPine 10 MG TAB PO SCH (10:11)
[2022-07-10] MEDS: levETIRAcetam 500 MG TAB PO SCH ×2 (10:11→20:23)
[2022-07-10] MEDS: APIXABAN 5 MG TAB PO SCH ×2 (10:11→20:22)
[2022-07-10] MEDS: DULoxetine HCL 20 MG CAPSULE.DR PO SCH (10:11)
[2022-07-10] MEDS: lisinopriL 20 MG TAB PO SCH (10:11)
[2022-07-10 10:24] LABS: Glucose,Whole Blood 175 mg/dL (70-110)
[2022-07-10 12:02] LABS: Glucose,Whole Blood 94 mg/dL (70-110)
--- NOTE | 2022-07-10 16:10 | P.PN ---
Subjective This is a pleasant 56 years old -[place] male with multiple medical problems as above He was sent by his PCP for high glucose . Patient states that she supposed to take insulin long-acting 65 units at bedtime and 10 units with meals, however he was not taking his insulin for the last 4 months because of insurance issue and affordability. He felt generally weak today and he went to see his PCP Dr. Sharma referred him to the emergency room for possible DKA. Patient actually his sugar and acetone were positive on admission. However patient denies any headache or dizziness or weakness or numbness. No slurred speech or blurred vision. No chest pain or dyspnea or coughing. No abdominal pain or vomiting or diarrhea. No urinary complaints like dysuria urgency. No fever. He denies smoking, alcohol or illicit drugs. Patient is afebrile, heart rate 94, blood pressure 196/104 anion gap was 34, then closed this morning to 11. WBC 12.3, glucose is better controlled 80-171. Rest of the BMP is reviewed. Creatinine 1.0. Liver enzymes not elevated. Imaging done in the emergency room Patient is started on DKA treatment protocol 07/09/2022 Patient back to baseline. Complaining only for mild epigastric discomfort and requested something for indigestion, comes is provided, abdomen was soft with no tenderness when examined. Discussed the case with Dr. Justin on the neurologist who saw him last year 04/2022 for witnessed seizure at that time he supposed to be in Keppra, he advised patient should be active on Keppra as he has 2 episodes of seizures on 01/2021 and 04/2021. I discussed the case with the patient in details with risks benefits and alternative explained carefully including taking the Keppra compliance should be kept adherence to taking medication on the time. And the risk of rebound seizure if Keppra as missed doses. Risk of recurrent seizure, status epilepticus and/or are explained for him, Patient verbalized understanding and acceptance to start Keppra and continue taking it. Please also discuss with director social for providing MEDICATION. Glucose 71-to 98 07/10/2022 Patient awake alert, stain intubated most of the time. He states that his epigastric discomfort is better however he does not allow me to examine his abdomen today. His sugar dropped twice today down to 71 and 90, his Levemir lowered yesterday 65 down to 60 units and placed on Amaryl 2 mg daily, therefore we going to back off on Amaryl and to 1 mg daily from tomorrow. This has Amaryl and Levemir 60 units is now on NovoLog 10 units with meals Also his sodium dropped to 126. Discontinue hydrochlorothiazide 10 check sodium level tomorrow. Blood pressure is controlled Objective - Vital Signs Vital signs: Vital Signs Temp 98.2 F 07/10/22 08:00 Pulse 77 07/10/22 08:00 Resp 14 07/10/22 08:00 BP 134/81 07/10/22 08:00 Pulse Ox 100 07/10/22 08:00 FiO2 Intake & Output 07/09/22 07/10/22 07/10/22 18:59 06:59 18:59 Intake Total 2308 540 358 Output Total 500 550 Balance 2308 40 -192 Weight 55.792 kg Intake: Oral 2308 540 358 Output: Urine 500 550 Other: Voiding Method Urinal # Voids 1 - Exam GENERAL: The patient is alert and oriented x3, not in any acute distress. Well developed, well nourished. HEENT: Pupils are round and equally reacting to light. EOMI. No scleral icterus. No conjunctival pallor. Normocephalic, atraumatic. No pharyngeal erythema. No thyromegaly. CARDIOVASCULAR: S1 and S2 present. No murmurs, rubs, or gallops. PULMONARY: Chest is clear to auscultation, no wheezing or crackles. ABDOMEN: Soft, nontender, nondistended, normoactive bowel sounds. No palpable organomegaly. MUSCULOSKELETAL: No joint swelling or deformity. EXTREMITIES: No cyanosis, clubbing, or pedal edema. NEUROLOGICAL: Gross neurological examination did not reveal any focal deficits. SKIN: No rashes. no petechiae. - Labs CBC & Chem 7: 07/10/22 07:19 07/10/22 07:19 Labs: Abnormal Lab Results - Last 24 Hours (Table) 07/09/22 07/09/22 07/09/22 Range/Units 14:09 16:42 19:41 Hgb (13.0-17.5) gm/dL Hct (39.0-53.0) % Sodium (137-145) mmol/L Chloride (98-107) mmol/L Glucose (74-99) mg/dL POC Glucose (mg/dL) 298 H 212 H (70-110) mg/dL Urine Cocaine Screen Positive A (Negative) U Cannabinoids Screen Positive A (Negative) Urine Alcohol Positive A (Negative) 07/10/22 07/10/22 07/10/22 Range/Units 07:19 07:19 10:16 Hgb 12.9 L (13.0-17.5) gm/dL Hct 38.1 L (39.0-53.0) % Sodium 126 L (137-145) mmol/L Chloride 92 L (98-107) mmol/L Glucose 172 H (74-99) mg/dL POC Glucose (mg/dL) 175 H (70-110) mg/dL Urine Cocaine Screen (Negative) U Cannabinoids Screen (Negative) Urine Alcohol (Negative) Assessment and Plan Assessment: Diabetic ketoacidosis, present on admission. Improved Hypertension, uncontrolled with urgency on admission . Controlled currently History of GERD Insulin-dependent diabetes mellitus Chronic atrial fibrillation on liquids History of deep venous thrombosis Acetone is positive. Plan: This is a pleasant 56 years old male with BKA Continue with insulin Levemir 60 units, NovoLog 10 units with meals and Amaryl 1 mg daily. No IV fluid. Stop hydrochlorothiazide Continue with Keppra, patient unaware with risks benefits and the importance of adherence to therapy and risk of rebound seizure and/or . Patient wishes to continue with Keppra Resume his blood pressure medication (both scheduled and when necessary )and monitor closely Labs and medication were reviewed.. Continue same treatment. Continue with symptomatic treatment. Resume home medication. Monitor lytes and vitals. DVT and GI prophylaxis. Further recommendations as per clinical course of the patient DVT prophylaxis: Eliquis GI Prophylaxis: Ppi Prognosis is guarded
[2022-07-10 16:56] LABS: Glucose,Whole Blood 133 mg/dL (70-110)
[2022-07-10 19:44] LABS: Glucose,Whole Blood 183 mg/dL (70-110)
[2022-07-10] MEDS: INSULIN DETEMIR (LEVEMIR) 100 UNIT/ML SYR SQ SCH (20:24)
[2022-07-11] MEDS: GLIMEPIRIDE 1 MG TAB PO SCH (06:42)
[2022-07-11] MEDS: carvediloL 3.125 MG TAB PO SCH ×2 (06:42→17:02)
[2022-07-11] MEDS: PANTOPRAZOLE 40 MG TABLET PO SCH ×2 (06:42→17:03)
[2022-07-11 06:56] LABS: Glucose,Whole Blood 169 mg/dL (70-110)
[2022-07-11] MEDS: INSULIN ASPART (NovoLOG) 100 UNIT/ML VIAL SQ SCH ×7 (07:00→21:48)
[2022-07-11 07:13] LABS: African American GFR (CKD) >90 (>60 ml/min/1.73 sqM); Anion Gap 6 mmol/L; Blood Urea Nitrogen 20 mg/dL (9-20); Calcium 8.4 mg/dL (8.4-10.2); Carbon Dioxide 30 mmol/L (22-30); Chloride 93 mmol/L (98-107); Glucose 141 mg/dL (74-99); Non-African American GFR(CKD) >90 (>60 ml/min/1.73 sqM); Potassium 3.9 mmol/L (3.5-5.1); Sodium 129 mmol/L (137-145)
[2022-07-11] MEDS: levETIRAcetam 500 MG TAB PO SCH ×2 (08:09→21:48)
[2022-07-11] MEDS: amLODIPine 10 MG TAB PO SCH (08:09)
[2022-07-11] MEDS: DULoxetine HCL 20 MG CAPSULE.DR PO SCH (08:09)
[2022-07-11] MEDS: lisinopriL 20 MG TAB PO SCH (08:09)
[2022-07-11] MEDS: APIXABAN 5 MG TAB PO SCH (08:09)
[2022-07-11] MEDS: CLOPIDOGREL 75 MG TAB PO SCH (08:09)
[2022-07-11 08:48] LABS: Albumin 2.8 g/dL (3.5-5.0); Bilirubin, Delta 0.4 mg/dL (0.0-0.2); Bilirubin,Unconjugated 0.1 mg/dL (0.0-1.1); Total Bilirubin 0.5 mg/dL (0.2-1.3); Total Protein 4.9 g/dL (6.3-8.2)
--- NOTE | 2022-07-11 08:53 | XR ---
EXAMINATION TYPE: XR KUB portable DATE OF EXAM: 07/11/2022 CLINICAL DATA: 56-year-old male epigastric tenderness, constipation, PHH COMPARISON: None FINDINGS: Supine imaging limited for assessment of free air. Nonobstructive bowel gas pattern. There is moderate to large stool burden with solid stool seen throughout. The ascending colon distended up to 5.9 cm wide with solid stool. Rectum distended up to 6.6 cm wide with solid stool. Vascular calcif ications in the pelvis. No suspicious calcification seen. Mild degenerative change in both hips. IMPRESSION: Moderate to large stool burden. The rectum is distended up to 6.6 cm wide with solid stool. Correlate for constipation. Nonobstructive bowel gas pattern.
--- NOTE | 2022-07-11 10:12 | P.PN ---
Subjective This is a pleasant 56 years old -[place] male with multiple medical problems as above He was sent by his PCP for high glucose . Patient states that she supposed to take insulin long-acting 65 units at bedtime and 10 units with meals, however he was not taking his insulin for the last 4 months because of insurance issue and affordability. He felt generally weak today and he went to see his PCP Dr. Sharma referred him to the emergency room for possible DKA. Patient actually his sugar and acetone were positive on admission. However patient denies any headache or dizziness or weakness or numbness. No slurred speech or blurred vision. No chest pain or dyspnea or coughing. No abdominal pain or vomiting or diarrhea. No urinary complaints like dysuria urgency. No fever. He denies smoking, alcohol or illicit drugs. Patient is afebrile, heart rate 94, blood pressure 196/104 anion gap was 34, then closed this morning to 11. WBC 12.3, glucose is better controlled 80-171. Rest of the BMP is reviewed. Creatinine 1.0. Liver enzymes not elevated. Imaging done in the emergency room Patient is started on DKA treatment protocol 07/09/2022 Patient back to baseline. Complaining only for mild epigastric discomfort and requested something for indigestion, comes is provided, abdomen was soft with no tenderness when examined. Discussed the case with Dr. Justin on the neurologist who saw him last year 04/2022 for witnessed seizure at that time he supposed to be in Keppra, he advised patient should be active on Keppra as he has 2 episodes of seizures on 01/2021 and 04/2021. I discussed the case with the patient in details with risks benefits and alternative explained carefully including taking the Keppra compliance should be kept adherence to taking medication on the time. And the risk of rebound seizure if Keppra as missed doses. Risk of recurrent seizure, status epilepticus and/or are explained for him, Patient verbalized understanding and acceptance to start Keppra and continue taking it. Please also discuss with web content & social media manager for providing MEDICATION. Glucose 71-to 98 07/10/2022 Patient awake alert, stain intubated most of the time. He states that his epigastric discomfort is better however he does not allow me to examine his abdomen today. His sugar dropped twice today down to 71 and 90, his Levemir lowered yesterday 65 down to 60 units and placed on Amaryl 2 mg daily, therefore we going to back off on Amaryl and to 1 mg daily from tomorrow. This has Amaryl and Levemir 60 units is now on NovoLog 10 units with meals Also his sodium dropped to 126. Discontinue hydrochlorothiazide 10 check sodium level tomorrow. Blood pressure is controlled 07/11/2022 Patient still complaining of from epigastric pain and tenderness, he is not eating well, he eats less than 50% of his diet. He is intubated most of the time. He denies any bowel movement for about a week. KUB was ordered which shown stool impaction and dilate the tract, and intestine about 6 cm. Colace and its and surgical team consult was placed. Follow-up also liver enzymes. Hyponatremia improving gradually but not resolved, it went from 126 up into 129 today. Glucose is controlled currently. Also patient remains on liquids. Patient also was substance abuse with urine drug screen is positive for cocaine, marijuana and alcohol. Patient does not have any signs and symptoms of alcohol withdrawal Extensive counseling was provided for patient regarding risk of substance abuse and he verbalized understanding and acceptance. Also he was counseled about the importance of entrance to therapy with the liquids were his DVT with risks including but not limited to recurrent DVT, PE and/or . Also the importance of Keppra which he is willing to continue taken with risk of rebound seizure and/or are explained for him and he verbalized understanding and acceptance Objective - Vital Signs Vital signs: Vital Signs Temp 98.3 F 07/11/22 00:00 Pulse 76 07/11/22 04:00 Resp 17 07/11/22 04:00 BP 158/75 07/11/22 04:00 Pulse Ox 99 07/11/22 04:00 FiO2 Intake & Output 07/10/22 07/11/22 07/11/22 18:59 06:59 18:59 Intake Total 2398 240 118 Output Total 550 200 Balance 1848 40 118 Intake: Oral 2398 240 118 Output: Urine 550 200 Other: Voiding Method Toilet Urinal # Voids 1 - Exam GENERAL: The patient is alert and oriented x3, not in any acute distress. Well developed, well nourished. HEENT: Pupils are round and equally reacting to light. EOMI. No scleral icterus. No conjunctival pallor. Normocephalic, atraumatic. No pharyngeal erythema. No thyromegaly. CARDIOVASCULAR: S1 and S2 present. No murmurs, rubs, or gallops. PULMONARY: Chest is clear to auscultation, no wheezing or crackles. -ABDOMEN: Soft, epigastric tenderness with no guarding, nondistended, normoactive bowel sounds. No palpable organomegaly. MUSCULOSKELETAL: No joint swelling or deformity. EXTREMITIES: No cyanosis, clubbing, or pedal edema. NEUROLOGICAL: Gross neurological examination did not reveal any focal deficits. SKIN: No rashes. no petechiae. - Labs CBC & Chem 7: 07/10/22 07:19 07/11/22 06:33 Labs: Abnormal Lab Results - Last 24 Hours (Table) 07/10/22 07/10/22 07/10/22 Range/Units 10:16 16:49 19:40 Sodium (137-145) mmol/L Chloride (98-107) mmol/L Glucose (74-99) mg/dL POC Glucose (mg/dL) 175 H 133 H 183 H (70-110) mg/dL Delta Bilirubin (0.0-0.2) mg/dL Total Protein (6.3-8.2) g/dL Albumin (3.5-5.0) g/dL 07/11/22 07/11/22 07/11/22 Range/Units 06:33 06:33 06:55 Sodium 129 L (137-145) mmol/L Chloride 93 L (98-107) mmol/L Glucose 141 H (74-99) mg/dL POC Glucose (mg/dL) 169 H (70-110) mg/dL Delta Bilirubin 0.4 H (0.0-0.2) mg/dL Total Protein 4.9 L (6.3-8.2) g/dL Albumin 2.8 L (3.5-5.0) g/dL Assessment and Plan Assessment: Severe constipation with dilated rectum 6 cm and decreased oral intake Hyponatremia most likely secondary to hydrochlorothiazide Diabetic ketoacidosis, present on admission. Improved Hypertension, uncontrolled with urgency on admission . Controlled currently History of GERD Insulin-dependent diabetes mellitus Chronic atrial fibrillation on liquids History of deep venous thrombosis Acetone is positive. Plan: This is a pleasant 56 years old male with BKA Continue with insulin Levemir 60 units, NovoLog 10 units with meals and Amaryl 1 mg daily. Start Colace and consult surgery team No IV fluid. Stop hydrochlorothiazide Continue with Keppra, patient unaware with risks benefits and the importance of adherence to therapy and risk of rebound seizure and/or . Patient wishes to continue with Keppra Resume his blood pressure medication (both scheduled and when necessary )and monitor closely Labs and medication were reviewed.. Continue same treatment. Continue with symptomatic treatment. Resume home medication. Monitor lytes and vitals. DVT and GI prophylaxis. Further recommendations as per clinical course of the patient DVT prophylaxis: Eliquis GI Prophylaxis: Ppi Prognosis is guarded
[2022-07-11 11:41] LABS: Glucose,Whole Blood 87 mg/dL (70-110)
[2022-07-11] MEDS: DOCUSATE 100 MG CAP PO SCH ×2 (12:54→21:48)
--- NOTE | 2022-07-11 15:38 | P.GSCN ---
History of Present Illness Consult date: 07/11/22 History of present illness: CHIEF COMPLAINT: High blood sugar HISTORY OF PRESENT ILLNESS: This is a 56-year-old male with a known history of diabetes. His last hemoglobin A1c was 16.4. Patient presented with evidence of DKA. Patient has developed abdominal pain and constipation. He reports last bowel movement was a week ago. He is having flatus. Denies any nausea or vomiting. Denies any abdominal distention. He is currently on a regular diet. Patient denies ever having colonoscopy. He is on Eliquis and Plavix. Patient does have a history of A. fib, DVT and PVD. Patient seen and examined with Dr. Montenegro PAST MEDICAL HISTORY: See list. PAST SURGICAL HISTORY: See list. MEDICATIONS: See list. ALLERGIES: See list. SOCIAL HISTORY: No illicit drug use. REVIEW OF SYSTEMS: CONSTITUTIONAL: Denies fever or chills. HEENT: Denies blurred vision, vision changes, or eye pain. Denies hemoptysis CARDIOVASCULAR: Denies chest pain or pressure. RESPIRATORY: No shortness of breath. GASTROINTESTINAL: See HPI for pertinent findings HEMATOLOGIC: Denies bleeding disorders. GENITOURINARY: Denies any blood in urine or increased urinary frequency. SKIN: Denies pruitis. Denies rash. PHYSICAL EXAM: VITAL SIGNS: Reviewed GENERAL: Well-developed in no acute distress. HEENT: No sclera icterus. Extraocular movements grossly intact. Moist buccal mucosa. Head is atraumatic, normocephalic. No nasal drainage. ABDOMEN: Soft. Nondistended. Diffuse tenderness NEUROLOGIC: Alert and oriented. Cranial nerves II through XII grossly intact. LABORATORY DATA: WBC 12.3 down to 6.4 hemoglobin 17 on admission is down to 12.9 platelets 252 Sodium 129 and potassium is 3.9 creatinine 0.89 Total bilirubin 0.5 LFTs normal Urinalysis positive for cocaine and cannabinoids, and alcohol IMAGING: KUB x-ray moderate to large stool blurred). The rectum is distended up to 6.6 cm wide with solid stool. Correlate for constipation nonspecific bowel gas pat tern. ASSESSMENT: 1. Abdominal pain 2. Constipation 3. DKA 4. Daily anticoagulation 5. Hyponatremia PLAN: -Patient scheduled for colonoscopy on 07/14/[address] montenegro -Start full liquid diet tomorrow -GoLYTELY prep start on Thursday -Hold Eliquis and plavix -Hyponatremia management per medicine service Physician Reaming Machine Tender note has been reviewed by physician. Signing provider agrees with the documented findings, assessment, and plan of care. Past Medical History Past Medical History: Atrial Fibrillation, Diabetes Mellitus, Deep Vein Thrombo sis (DVT), Hyperlipidemia, Hypertension, Myocardial Infarction (ND), Pneumonia, Vascular Disorder Additional Past Medical History / Comment(s): uvitis glaucoma, PVD, dvt to lower left leg Last Myocardial Infarction Date:: unknown History of Any Multi-Drug Resistant Organisms: MRSA Year Discovered:: 06/30/20 MDRO Source:: Left Leg Past Surgical History: Hernia Repair, Orthopedic Surgery Additional Past Surgical History / Comment(s): aortgram w/ runnoff, eye surg implant, bilateral knee SX, left vein stripping in 02/2020 x2, vein graft and toe amputation Past Anesthesia/Blood Transfusion Reactions: No Reported Reaction Additional Past Anesthesia/Blood Transfusion Reaction / Comm: no hx blood transfusion Past Psychological History: No Psychological Hx Reported Smoking Status: Former smoker Past Alcohol Use History: Rare Past Drug Use History: Marijuana - Past Family History Mother History Unknown: Yes Brother(s) Family Medical History: COPD Additional Family Medical History / Comment(s): passed from COPD Father Family Medical History: Myocardial Infarction (ND) Additional Family Medical History / Comment(s): passed from [place] Medications and Allergies Home Medications Medication Instructions Recorded Confirmed Type DULoxetine HCL [Cymbalta] 20 mg PO DAILY 30 Days #30 cap 11/29/21 07/07/22 Rx Clopidogrel [Plavix] 75 mg PO DAILY 30 Days #30 tab 03/24/22 07/07/22 Rx Glimepiride [Amaryl] 2 mg PO DAILY #30 tab 03/24/22 07/07/22 Rx INSULIN ASPART (NovoLOG) [NovoLOG 10 unit SQ AC-TID #1 each 03/24/22 07/07/22 Rx (formulary)] Insulin Glargine [Lantus Vial] 65 unit SQ HS #1 each 03/24/22 07/07/22 Rx Pantoprazole [Protonix] 40 mg PO BID 30 Days #60 tab 03/24/22 07/07/22 Rx amLODIPine [Norvasc] 10 mg PO DAILY #30 tab 03/24/22 07/07/22 Rx carvediloL [Coreg] 3.125 mg PO BID-W/MEALS #60 tab 03/24/22 07/07/22 Rx hydroCHLOROthiazide [Hydrodiuril] 25 mg PO DAILY #30 tab 03/24/22 07/07/22 Rx lisinopriL [Zestril] 20 mg PO DAILY #30 tab 03/24/22 07/07/22 Rx Apixaban [Eliquis Starter Pack See Taper PO DIRECTED 07/07/22 07/07/22 History (for VTE)] Apixaban [Eliquis Starter Pack 07/08/22 History (for VTE)] Allergies Allergy/AdvReac Type Severity Reaction Status Date / Time atorvastatin [From Lipitor] Allergy Swelling Verified 07/07/22 22:43 ibuprofen Allergy Swelling Verified 07/07/22 22:43 pregabalin [From Lyrica] Allergy Swelling Verified 07/07/22 22:43 Surgical - Exam Vital Signs Temp Pulse Resp BP Pulse Ox 99.0 F 55 L 180 H 190/88 100 07/07/22 16:27 07/07/22 16:27 07/07/22 16:27 07/07/22 16:27 07/07/22 16:27 Results - Labs 07/10/22 07:19 07/11/22 06:33 Abnormal Lab Results - Last 24 Hours (Table) 07/10/22 07/10/22 07/11/22 Range/Units 16:49 19:40 06:33 Sodium 129 L (137-145) mmol/L Chloride 93 L (98-107) mmol/L Glucose 141 H (74-99) mg/dL POC Glucose (mg/dL) 133 H 183 H (70-110) mg/dL Delta Bilirubin (0.0-0.2) mg/dL Total Protein (6.3-8.2) g/dL Albumin (3.5-5.0) g/dL 07/11/22 07/11/22 Range/Units 06:33 06:55 Sodium (137-145) mmol/L Chloride (98-107) mmol/L Glucose (74-99) mg/dL POC Glucose (mg/dL) 169 H (70-110) mg/dL Delta Bilirubin 0.4 H (0.0-0.2) mg/dL Total Protein 4.9 L (6.3-8.2) g/dL Albumin 2.8 L (3.5-5.0) g/dL Diabetes panel 07/11/22 07/11/22 Range/Units 06:33 06:33 Sodium 129 L (137-145) mmol/L Potassium 3.9 (3.5-5.1) mmol/L Chloride 93 L (98-107) mmol/L Carbon Dioxide 30 (22-30) mmol/L BUN 20 (9-20) mg/dL Creatinine 0.89 (0.66-1.25) mg/dL Glucose 141 H (74-99) mg/dL Calcium 8.4 (8.4-10.2) mg/dL AST 22 (17-59) U/L ALT 21 (4-49) U/L Alkaline Phosphatase 70 (38-126) U/L Total Protein 4.9 L (6.3-8.2) g/dL Albumin 2.8 L (3.5-5.0) g/dL Calcium panel 07/11/22 07/11/22 Range/Units 06:33 06:33 Calcium 8.4 (8.4-10.2) mg/dL Albumin 2.8 L (3.5-5.0) g/dL Pituitary panel 07/11/22 Range/Units 06:33 Sodium 129 L (137-145) mmol/L Potassium 3.9 (3.5-5.1) mmol/L Chloride 93 L (98-107) mmol/L Carbon Dioxide 30 (22-30) mmol/L BUN 20 (9-20) mg/dL Creatinine 0.89 (0.66-1.25) mg/dL Glucose 141 H (74-99) mg/dL Calcium 8.4 (8.4-10.2) mg/dL Adrenal panel 07/11/22 07/11/22 Range/Units 06:33 06:33 Sodium 129 L (137-145) mmol/L Potassium 3.9 (3.5-5.1) mmol/L Chloride 93 L (98-107) mmol/L Carbon Dioxide 30 (22-30) mmol/L BUN 20 (9-20) mg/dL Creatinine 0.89 (0.66-1.25) mg/dL Glucose 141 H (74-99) mg/dL Calcium 8.4 (8.4-10.2) mg/dL Total Bilirubin 0.5 (0.2-1.3) mg/dL AST 22 (17-59) U/L ALT 21 (4-49) U/L Alkaline Phosphatase 70 (38-126) U/L Total Protein 4.9 L (6.3-8.2) g/dL Albumin 2.8 L (3.5-5.0) g/dL
[2022-07-11 16:33] LABS: Glucose,Whole Blood 124 mg/dL (70-110)
[2022-07-11] MEDS ORDERED: LACTATED RINGERS 1,000 ML IV SCH (17:26)
[2022-07-11 20:21] LABS: Glucose,Whole Blood 201 mg/dL (70-110)
[2022-07-11] MEDS: INSULIN DETEMIR (LEVEMIR) 100 UNIT/ML SYR SQ SCH (21:48)
[2022-07-12 06:36] LABS: Glucose,Whole Blood 31 mg/dL (70-110)
[2022-07-12] MEDS: carvediloL 3.125 MG TAB PO SCH ×2 (06:49→17:11)
[2022-07-12] MEDS: PANTOPRAZOLE 40 MG TABLET PO SCH ×2 (06:49→17:11)
[2022-07-12 06:56] LABS: Glucose,Whole Blood 128 mg/dL (70-110)
[2022-07-12] MEDS: INSULIN ASPART (NovoLOG) 100 UNIT/ML VIAL SQ SCH ×7 (08:34→21:13)
[2022-07-12] MEDS: amLODIPine 10 MG TAB PO SCH (08:46)
[2022-07-12] MEDS: lisinopriL 20 MG TAB PO SCH (08:46)
[2022-07-12] MEDS: DOCUSATE 100 MG CAP PO SCH ×2 (08:46→21:29)
[2022-07-12] MEDS: levETIRAcetam 500 MG TAB PO SCH ×2 (08:46→21:29)
[2022-07-12] MEDS: DULoxetine HCL 20 MG CAPSULE.DR PO SCH (08:46)
[2022-07-12] MEDS: GLIMEPIRIDE 1 MG TAB PO SCH (08:50)
[2022-07-12 11:18] LABS: ALT 32 U/L (4-49); AST 39 U/L (17-59); African American GFR (CKD) >90 (>60 ml/min/1.73 sqM); Albumin 2.8 g/dL (3.5-5.0); Alkaline Phosphatase 83 U/L (38-126); Anion Gap 5 mmol/L; Bilirubin, Delta 0.2 mg/dL (0.0-0.2); Bilirubin,Unconjugated 0.1 mg/dL (0.0-1.1); Blood Urea Nitrogen 19 mg/dL (9-20); Calcium 8.5 mg/dL (8.4-10.2); Carbon Dioxide 34 mmol/L (22-30); Chloride 91 mmol/L (98-107); Glucose 214 mg/dL (74-99); Non-African American GFR(CKD) >90 (>60 ml/min/1.73 sqM); Potassium 4.5 mmol/L (3.5-5.1); Sodium 130 mmol/L (137-145); Total Bilirubin 0.3 mg/dL (0.2-1.3); Total Protein 4.9 g/dL (6.3-8.2)
[2022-07-12 12:02] LABS: Glucose,Whole Blood 182 mg/dL (70-110)
--- NOTE | 2022-07-12 16:09 | P.PN ---
Subjective Progress Note Date: 07/12/22 CHIEF COMPLAINT: GI bleed HISTORY OF PRESENT ILLNESS: The patient is a 56-year-old male presents with poorly controlled diabetes and on anticoagulation including antiplatelets presents with rapid decline in hemoglobin from 17.1 down 14.2. He has chronic constipation without prior colonoscopy. Patient admitted for DKA. He is resting comfortably. He is tolerating popsicle. He complains of generalized abdominal pain however no blood in stools today or last night. ROS: No reports of nausea and vomiting. No bowel movements. No fevers or chills. No new chest pain. No productive sputum PHYSICAL EXAM: VITAL SIGNS: Reviewed CONSTITUTIONAL: Well developed and in no acute distress. EYES: Conjuctivae without sclera icterus. Extraocular movements grossly intact. HEAD, EARS, NOSE, THROAT: Moist buccal mucosa. Head is atraumatic, normocephalic. Hears conversational speech. No nasal drainage. RESPIRATORY: Non-labored respirations and equal bilateral excursions. CARDIOVASCULAR: Palpable 2+ radial pulses. ABDOMEN: No peritonitis MUSCULOSKELETAL: No gross deformity of the lower extremities noted. No clubbing. No cyanosis. SKIN: Good skin turgor. Well perfused. NEUROLOGIC: Cranial nerves II through XII grossly intact. No focal or lateralizing signs. PSYCH: Appropriate affect. Alert and oriented to person, place and time. CLINICAL LABS: Reviewed. Decreased 17.0-12.9 hemoglobin ASSESSMENT: 1. Gastrointestinal bleed 2. Uncontrolled hyperglycemia and diabetes with DKA 3. Constipation PLAN: 1. Recommend bowel prep for constipation 2. Recommend recheck hemoglobin due to acute drop in 3 days Objective - Vital Signs Vital signs: Vital Signs Temp 97.5 F L 07/12/22 08:42 Pulse 74 07/12/22 11:26 Resp 18 07/12/22 11:26 BP 117/74 07/12/22 11:26 Pulse Ox 100 07/12/22 11:26 FiO2 Intake & Output 07/11/22 07/12/22 07/12/22 18:59 06:59 18:59 Intake Total 378 20 Output Total 900 350 Balance -522 -330 Weight 55.792 kg Intake: IV 20 20 Invasive Line 1 20 20 Oral 358 Output: Urine 900 350 Other: Voiding Method Toilet Toilet # Voids 1 2 - Labs CBC & Chem 7: 07/10/22 07:19 07/12/22 09:54 Labs: Abnormal Lab Results - Last 24 Hours (Table) 07/11/22 07/11/22 07/12/22 Range/Units 16:32 20:19 06:32 Sodium (137-145) mmol/L Chloride (98-107) mmol/L Carbon Dioxide (22-30) mmol/L Glucose (74-99) mg/dL POC Glucose (mg/dL) 124 H 201 H 31 L (70-110) mg/dL Total Protein (6.3-8.2) g/dL Albumin (3.5-5.0) g/dL 07/12/22 07/12/22 07/12/22 Range/Units 06:54 09:54 12:00 Sodium 130 L (137-145) mmol/L Chloride 91 L (98-107) mmol/L Carbon Dioxide 34 H (22-30) mmol/L Glucose 214 H (74-99) mg/dL POC Glucose (mg/dL) 128 H 182 H (70-110) mg/dL Total Protein 4.9 L (6.3-8.2) g/dL Albumin 2.8 L (3.5-5.0) g/dL
[2022-07-12 17:04] LABS: Glucose,Whole Blood 216 mg/dL (70-110)
[2022-07-12 20:32] LABS: Glucose,Whole Blood 117 mg/dL (70-110)
--- NOTE | 2022-07-12 21:21 | P.PN ---
Subjective This is a pleasant 56 years old -[place] male with multiple medical problems as above He was sent by his PCP for high glucose . Patient states that she supposed to take insulin long-acting 65 units at bedtime and 10 units with meals, however he was not taking his insulin for the last 4 months because of insurance issue and affordability. He felt generally weak today and he went to see his PCP Dr. Sharma referred him to the emergency room for possible DKA. Patient actually his sugar and acetone were positive on admission. However patient denies any headache or dizziness or weakness or numbness. No slurred speech or blurred vision. No chest pain or dyspnea or coughing. No abdominal pain or vomiting or diarrhea. No urinary complaints like dysuria urgency. No fever. He denies smoking, alcohol or illicit drugs. Patient is afebrile, heart rate 94, blood pressure 196/104 anion gap was 34, then closed this morning to 11. WBC 12.3, glucose is better controlled 80-171. Rest of the BMP is reviewed. Creatinine 1.0. Liver enzymes not elevated. Imaging done in the emergency room Patient is started on DKA treatment protocol 07/09/2022 Patient back to baseline. Complaining only for mild epigastric discomfort and requested something for indigestion, comes is provided, abdomen was soft with no tenderness when examined. Discussed the case with Dr. Justin on the neurologist who saw him last year 04/2022 for witnessed seizure at that time he supposed to be in Keppra, he advised patient should be active on Keppra as he has 2 episodes of seizures on 01/2021 and 04/2021. I discussed the case with the patient in details with risks benefits and alternative explained carefully including taking the Keppra compliance should be kept adherence to taking medication on the time. And the risk of rebound seizure if Keppra as missed doses. Risk of recurrent seizure, status epilepticus and/or are explained for him, Patient verbalized understanding and acceptance to start Keppra and continue taking it. Please also discuss with social science manager for providing MEDICATION. Glucose 71-to 98 07/10/2022 Patient awake alert, stain intubated most of the time. He states that his epigastric discomfort is better however he does not allow me to examine his abdomen today. His sugar dropped twice today down to 71 and 90, his Levemir lowered yesterday 65 down to 60 units and placed on Amaryl 2 mg daily, therefore we going to back off on Amaryl and to 1 mg daily from tomorrow. This has Amaryl and Levemir 60 units is now on NovoLog 10 units with meals Also his sodium dropped to 126. Discontinue hydrochlorothiazide 10 check sodium level tomorrow. Blood pressure is controlled 07/11/2022 Patient still complaining of from epigastric pain and tenderness, he is not eating well, he eats less than 50% of his diet. He is intubated most of the time. He denies any bowel movement for about a week. KUB was ordered which shown stool impaction and dilate the tract, and intestine about 6 cm. Colace and its and surgical team consult was placed. Follow-up also liver enzymes. Hyponatremia improving gradually but not resolved, it went from 126 up into 129 today. Glucose is controlled currently. Also patient remains on liquids. Patient also was substance abuse with urine drug screen is positive for cocaine, marijuana and alcohol. Patient does not have any signs and symptoms of alcohol withdrawal Extensive counseling was provided for patient regarding risk of substance abuse and he verbalized understanding and acceptance. Also he was counseled about the importance of entrance to therapy with the liquids were his DVT with risks including but not limited to recurrent DVT, PE and/or . Also the importance of Keppra which he is willing to continue taken with risk of rebound seizure and/or are explained for him and he verbalized understanding and acceptance 07-10-22 Patient looks comfortable, he looks happy that epigastric pain is improving however patient pain did not resolve completely and he still has some tenderness Also he has some evidence of anemia with hemoglobin drop 14 down to 12, anemia workup has been requested Sodium improved to 1:30 with holding hydrochlorothiazide Also patient is on Eliquis blood thinner, we'll keep monitoring hemoglobin. This morning his glucose dropped to 31, therefore we are holding his Levemir 60 units. Continue with NovoLog 10 units with meals and Amaryl 1 mg Objective - Vital Signs Vital signs: Vital Signs Temp 97.8 F 07/12/22 15:28 Pulse 71 07/12/22 15:28 Resp 16 07/12/22 15:28 BP 109/53 07/12/22 15:28 Pulse Ox 99 07/12/22 15:28 FiO2 Intake & Output 07/11/22 07/12/2207/12/22 18:59 06:59 18:59 Intake Total 518 61 4695 Output Total 900 350 600 Balance -522 -330 1250 Weight 55.792 kg Intake: IV 20 20 Invasive Line 1 20 20 Oral 358 1850 Output: Urine 900 350 600 Other: Voiding Method Toilet Toilet # Voids 1 2 - Exam GENERAL: The patient is alert and oriented x3, not in any acute distress. Well developed, well nourished. HEENT: Pupils are round and equally reacting to light. EOMI. No scleral icterus. No conjunctival pallor. Normocephalic, atraumatic. No pharyngeal erythema. No thyromegaly. CARDIOVASCULAR: S1 and S2 present. No murmurs, rubs, or gallops. PULMONARY: Chest is clear to auscultation, no wheezing or crackles. -ABDOMEN: Soft, epigastric tenderness with no guarding, nondistended, normoactive bowel sounds. No palpable organomegaly. MUSCULOSKELETAL: No joint swelling or deformity. EXTREMITIES: No cyanosis, clubbing, or pedal edema. NEUROLOGICAL: Gross neurological examination did not reveal any focal deficits. SKIN: No rashes. no petechiae. - Labs CBC & Chem 7: 07/10/22 07:19 07/12/22 09:54 Labs: Abnormal Lab Results - Last 24 Hours (Table) 07/11/22 07/12/22 07/12/22 Range/Units 20:19 06:32 06:54 Sodium (137-145) mmol/L Chloride (98-107) mmol/L Carbon Dioxide (22-30) mmol/L Glucose (74-99) mg/dL POC Glucose (mg/dL) 201 H 31 L 128 H (70-110) mg/dL Total Protein (6.3-8.2) g/dL Albumin (3.5-5.0) g/dL 07/12/22 07/12/22 07/12/22 Range/Units 09:54 12:00 17:01 Sodium 130 L (137-145) mmol/L Chloride 91 L (98-107) mmol/L Carbon Dioxide 34 H (22-30) mmol/L Glucose 214 H (74-99) mg/dL POC Glucose (mg/dL) 182 H 216 H (70-110) mg/dL Total Protein 4.9 L (6.3-8.2) g/dL Albumin 2.8 L (3.5-5.0) g/dL Assessment and Plan Assessment: Severe constipation with dilated rectum 6 cm and decreased oral intake Hyponatremia most likely secondary to hydrochlorothiazide Diabetic ketoacidosis, present on admission. Improved Hypertension, uncontrolled with urgency on admission . Controlled currently History of GERD Insulin-dependent diabetes mellitus Chronic atrial fibrillation on liquids History of deep venous thrombosis Acetone is positive. Plan: This is a pleasant 56 years old male with BKA Continue with , NovoLog 10 units with meals and Amaryl 1 mg daily. Hold insulin Levemir 60 units Start Colace and consult surgery team Anemia workup No IV fluid. Stop hydrochlorothiazide Continue with Keppra, patient unaware with risks benefits and the importance of adherence to therapy and risk of rebound seizure and/or . Patient wishes to continue with Keppra Resume his blood pressure medication (both scheduled and when necessary )and monitor closely Labs and medication were reviewed.. Continue same treatment. Continue with symptomatic treatment. Resume home medication. Monitor lytes and vitals. DVT and GI prophylaxis. Further recommendations as per clinical course of the patient DVT prophylaxis: Eliquis GI Prophylaxis: Ppi Prognosis is guarded
[2022-07-12] MEDS: INSULIN DETEMIR (LEVEMIR) 100 UNIT/ML SYR SQ SCH (21:35)
[2022-07-13 02:08] LABS: Glucose,Whole Blood 344 mg/dL (70-110)
[2022-07-13 06:18] LABS: Glucose,Whole Blood 316 mg/dL (70-110)
[2022-07-13] MEDS: PANTOPRAZOLE 40 MG TABLET PO SCH ×2 (06:29→16:58)
[2022-07-13] MEDS: GLIMEPIRIDE 1 MG TAB PO SCH (06:30)
[2022-07-13] MEDS: INSULIN ASPART (NovoLOG) 100 UNIT/ML VIAL SQ SCH ×7 (06:30→20:38)
[2022-07-13] MEDS: carvediloL 3.125 MG TAB PO SCH ×2 (06:30→16:58)
[2022-07-13] MEDS: lisinopriL 20 MG TAB PO SCH (08:43)
[2022-07-13] MEDS: levETIRAcetam 500 MG TAB PO SCH ×2 (08:43→20:38)
[2022-07-13] MEDS: amLODIPine 10 MG TAB PO SCH (08:43)
[2022-07-13] MEDS: DOCUSATE 100 MG CAP PO SCH ×2 (08:43→20:38)
[2022-07-13] MEDS: DULoxetine HCL 20 MG CAPSULE.DR PO SCH (08:43)
[2022-07-13] MEDS ORDERED: PEG 3350 (236 GM/BTL) + LYTES 4,000 ML BOTTLE PO ONE (09:00)
[2022-07-13 09:40] LABS: Basophils # (A) 0.1 k/uL (0-0.2); Basophils % (A) 1 %; Eosinophils # (A) 0.2 k/uL (0-0.7); Eosinophils % (A) 2 %; Lymphocytes # (A) 2.2 k/uL (1.0-4.8); Lymphocytes % (A) 29 %; MCH 30.1 pg (25.0-35.0); MCHC 32.4 g/dL (31.0-37.0); MCV 92.8 fL (80.0-100.0); Mean Platelet Volume 8.2; Monocytes # (A) 0.6 k/uL (0-1.0); Monocytes % (A) 8 %; Neutrophils # (A) 4.3 k/uL (1.3-7.7); Neutrophils % (A) 58 %; Platelet Count 251 k/uL (150-450); RBC 3.98 m/uL (4.30-5.90); RDW 12.5 % (11.5-15.5); WBC 7.4 k/uL (3.8-10.6)
[2022-07-13 12:03] LABS: Glucose,Whole Blood 105 mg/dL (70-110)
--- NOTE | 2022-07-13 14:41 | P.PN ---
Subjective Progress Note Date: 07/13/22 CHIEF COMPLAINT: GI bleed HISTORY OF PRESENT ILLNESS: The patient is a 56-year-old male presents with poorly controlled diabetes and on anticoagulation including antiplatelets. He is currently undergoing bowel prep. No bowel movements at this time. ROS: No reports of nausea and vomiting. No bowel movements. No fevers or chills. No new chest pain. No productive sputum PHYSICAL EXAM: VITAL SIGNS: Reviewed CONSTITUTIONAL: Well developed and in no acute distress. EYES: Conjuctivae without sclera icterus. Extraocular movements grossly intact. HEAD, EARS, NOSE, THROAT: Moist buccal mucosa. Head is atraumatic, normocephalic. Hears conversational speech. No nasal drainage. RESPIRATORY: Non-labored respirations and equal bilateral excursions. CARDIOVASCULAR: Palpable 2+ radial pulses. ABDOMEN: No peritonitis MUSCULOSKELETAL: No gross deformity of the lower extremities noted. No clubbing. No cyanosis. SKIN: Good skin turgor. Well perfused. NEUROLOGIC: Cranial nerves II through XII grossly intact. No focal or lateralizing signs. PSYCH: Appropriate affect. Alert and oriented to person, place and time. CLINICAL LABS: Reviewed. Decreased 17.0-12.9 hemoglobin. Today's hemoglobin 12.0. Blood sugar glucose between 105-316 ASSESSMENT: 1. Gastrointestinal bleed 2. Uncontrolled hyperglycemia and diabetes with DKA 3. Constipation 4. Anemia PLAN: 1. Patient encouraged to complete bowel prep for adequate colonoscopy Objective - Vital Signs Vital signs: Vital Signs Temp 97.7 F 07/13/22 08:45 Pulse 73 07/13/22 12:00 Resp 18 07/13/22 12:00 BP 127/75 07/13/22 12:00 Pulse Ox 98 07/13/22 12:00 FiO2 Intake & Output 07/12/22 07/13/22 07/13/22 18:59 06:59 18:59 Intake Total 1850 970 120 Output Total 457 984 7950 Balance 1250 170 -980 Intake: Oral 1850 970 120 Output: Urine 639 853 4173 Other: Voiding Method Toilet Urinal Urinal - Labs CBC & Chem 7: 07/13/22 08:35 07/12/22 09:54 Labs: Abnormal Lab Results - Last 24 Hours (Table) 07/12/22 07/12/22 07/13/22 Range/Units 17:01 20:29 02:07 RBC (4.30-5.90) m/uL Hgb (13.0-17.5) gm/dL Hct (39.0-53.0) % POC Glucose (mg/dL) 216 H 117 H 344 H (70-110) mg/dL 07/13/22 07/13/22 Range/Units 06:15 08:35 RBC 3.98 L (4.30-5.90) m/uL Hgb 12.0 L (13.0-17.5) gm/dL Hct 37.0 L (39.0-53.0) % POC Glucose (mg/dL) 316 H (70-110) mg/dL
--- NOTE | 2022-07-13 15:58 | P.PN ---
Subjective This is a pleasant 56 years old -Citizen Of [place] male with multiple medical problems as above He was sent by his PCP for high glucose . Patient states that she supposed to take insulin long-acting 65 units at bedtime and 10 units with meals, however he was not taking his insulin for the last 4 months because of insurance issue and affordability. He felt generally weak today and he went to see his PCP Dr. Sharma referred him to the emergency room for possible DKA. Patient actually his sugar and acetone were positive on admission. However patient denies any headache or dizziness or weakness or numbness. No slurred speech or blurred vision. No chest pain or dyspnea or coughing. No abdominal pain or vomiting or diarrhea. No urinary complaints like dysuria urgency. No fever. He denies smoking, alcohol or illicit drugs. Patient is afebrile, heart rate 94, blood pressure 196/104 anion gap was 34, then closed this morning to 11. WBC 12.3, glucose is better controlled 80-171. Rest of the BMP is reviewed. Creatinine 1.0. Liver enzymes not elevated. Imaging done in the emergency room Patient is started on DKA treatment protocol 07/09/2022 Patient back to baseline. Complaining only for mild epigastric discomfort and requested something for indigestion, comes is provided, abdomen was soft with no tenderness when examined. Discussed the case with Dr. Justin on the neurologist who saw him last year 04/2022 for witnessed seizure at that time he supposed to be in Keppra, he advised patient should be active on Keppra as he has 2 episodes of seizures on 01/2021 and 04/2021. I discussed the case with the patient in details with risks benefits and alternative explained carefully including taking the Keppra compliance should be kept adherence to taking medication on the time. And the risk of rebound seizure if Keppra as missed doses. Risk of recurrent seizure, status epilepticus and/or are explained for him, Patient verbalized understanding and acceptance to start Keppra and continue taking it. Please also discuss with high school social science teacher for providing MEDICATION. Glucose 71-to 98 07/10/2022 Patient awake alert, stain intubated most of the time. He states that his epigastric discomfort is better however he does not allow me to examine his abdomen today. His sugar dropped twice today down to 71 and 90, his Levemir lowered yesterday 65 down to 60 units and placed on Amaryl 2 mg daily, therefore we going to back off on Amaryl and to 1 mg daily from tomorrow. This has Amaryl and Levemir 60 units is now on NovoLog 10 units with meals Also his sodium dropped to 126. Discontinue hydrochlorothiazide 10 check sodium level tomorrow. Blood pressure is controlled 07/11/2022 Patient still complaining of from epigastric pain and tenderness, he is not eating well, he eats less than 50% of his diet. He is intubated most of the time. He denies any bowel movement for about a week. KUB was ordered which shown stool impaction and dilate the tract, and intestine about 6 cm. Colace and its and surgical team consult was placed. Follow-up also liver enzymes. Hyponatremia improving gradually but not resolved, it went from 126 up into 129 today. Glucose is controlled currently. Also patient remains on liquids. Patient also was substance abuse with urine drug screen is positive for cocaine, marijuana and alcohol. Patient does not have any signs and symptoms of alcohol withdrawal Extensive counseling was provided for patient regarding risk of substance abuse and he verbalized understanding and acceptance. Also he was counseled about the importance of entrance to therapy with the liquids were his DVT with risks including but not limited to recurrent DVT, PE and/or . Also the importance of Keppra which he is willing to continue taken with risk of rebound seizure and/or are explained for him and he verbalized understanding and acceptance 07-12-22 Patient looks comfortable, he looks happy that epigastric pain is improving however patient pain did not resolve completely and he still has some tenderness Also he has some evidence of anemia with hemoglobin drop 14 down to 12, anemia workup has been requested Sodium improved to 1:30 with holding hydrochlorothiazide Also patient is on Eliquis blood thinner, we'll keep monitoring hemoglobin. This morning his glucose dropped to 31, therefore we are holding his Levemir 60 units. Continue with NovoLog 10 units with meals and Amaryl 1 mg 07/13/2022 patient clinically looks the same with mild epigastric pain and tenderness Patient is scheduled for colonoscopy tomorrow by surgery team and he is undergoing a bowel preparation. 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 (After the procedure he would require more Levemir doses, and return to start with 30 units daily) Amaryl 1 mg is on hold. Sugar currently is controlled Labs reviewed Objective - Vital Signs Vital signs: Vital Signs Temp 97.7 F 07/13/22 08:45 Pulse 79 07/13/22 08:45 Resp 16 07/13/22 08:45 BP 122/68 07/13/22 08:45 Pulse Ox 100 07/13/22 08:45 FiO2 Intake & Output 07/12/22 07/13/22 07/13/22 18:59 06:59 18:59 Intake Total 1850 970 Output Total 600 800 Balance 1250 170 Intake: Oral 1850 970 Output: Urine 600 800 Other: Voiding Method Toilet Urinal Urinal - Exam GENERAL: The patient is alert and oriented x3, not in any acute distress. Well developed, well nourished. HEENT: Pupils are round and equally reacting to light. EOMI. No scleral icterus. No conjunctival pallor. Normocephalic, atraumatic. No pharyngeal erythema. No thyromegaly. CARDIOVASCULAR: S1 and S2 present. No murmurs, rubs, or gallops. PULMONARY: Chest is clear to auscultation, no wheezing or crackles. -ABDOMEN: Soft, epigastric tenderness with no guarding, nondistended, normoactive bowel sounds. No palpable organomegaly. MUSCULOSKELETAL: No joint swelling or deformity. EXTREMITIES: No cyanosis, clubbing, or pedal edema. NEUROLOGICAL: Gross neurological examination did not reveal any focal deficits. SKIN: No rashes. no petechiae. - Labs CBC & Chem 7: 07/13/22 08:35 07/12/22 09:54 Labs: Abnormal Lab Results - Last 24 Hours (Table) 07/12/22 07/12/22 07/12/22 Range/Units 09:54 12:00 17:01 RBC (4.30-5.90) m/uL Hgb (13.0-17.5) gm/dL Hct (39.0-53.0) % Sodium 130 L (137-145) mmol/L Chloride 91 L (98-107) mmol/L Carbon Dioxide 34 H (22-30) mmol/L Glucose 214 H (74-99) mg/dL POC Glucose (mg/dL) 182 H 216 H (70-110) mg/dL Total Protein 4.9 L (6.3-8.2) g/dL Albumin 2.8 L (3.5-5.0) g/dL 07/12/22 07/13/22 07/13/22 Range/Units 20:29 02:07 06:15 RBC (4.30-5.90) m/uL Hgb (13.0-17.5) gm/dL Hct (39.0-53.0) % Sodium (137-145) mmol/L Chloride (98-107) mmol/L Carbon Dioxide (22-30) mmol/L Glucose (74-99) mg/dL POC Glucose (mg/dL) 117 H 344 H 316 H (70-110) mg/dL Total Protein (6.3-8.2) g/dL Albumin (3.5-5.0) g/dL 07/13/22 Range/Units 08:35 RBC 3.98 L (4.30-5.90) m/uL Hgb 12.0 L (13.0-17.5) gm/dL Hct 37.0 L (39.0-53.0) % Sodium (137-145) mmol/L Chloride (98-107) mmol/L Carbon Dioxide (22-30) mmol/L Glucose (74-99) mg/dL POC Glucose (mg/dL) (70-110) mg/dL Total Protein (6.3-8.2) g/dL Albumin (3.5-5.0) g/dL Assessment and Plan Assessment: Severe constipation with dilated rectum 6 cm and decreased oral intake Hyponatremia most likely secondary to hydrochlorothiazide Diabetic ketoacidosis, present on admission. Improved Hypertension, uncontrolled with urgency on admission . Controlled currently History of GERD Insulin-dependent diabetes mellitus Chronic atrial fibrillation on liquids History of deep venous thrombosis Acetone is positive. Plan: This is a pleasant 56 years old male with BKA Continue with , NovoLog 10 units with meals and insulin Levemir 10 units Start Colace and consult surgery team Anemia workup No IV fluid. Stop hydrochlorothiazide Continue with Keppra, patient unaware with risks benefits and the importance of adherence to therapy and risk of rebound seizure and/or . Patient wishes to continue with Keppra Resume his blood pressure medication (both scheduled and when necessary )and monitor closely Labs and medication were reviewed.. Continue same treatment. Continue with symptomatic treatment. Resume home medication. Monitor lytes and vitals. DVT and GI prophylaxis. Further recommendations as per clinical course of the patient DVT prophylaxis: Eliquis GI Prophylaxis: Ppi Prognosis is guarded
[2022-07-13 16:49] LABS: Glucose,Whole Blood 264 mg/dL (70-110)
[2022-07-13 19:14] LABS: % Iron Saturation 22.43 (15.00-50.00)
[2022-07-13 19:52] LABS: Glucose,Whole Blood 215 mg/dL (70-110)
[2022-07-14 02:02] LABS: Glucose,Whole Blood 312 mg/dL (70-110)
[2022-07-14 06:10] LABS: Glucose,Whole Blood 307 mg/dL (70-110)
[2022-07-14] MEDS: LACTATED RINGERS 1,000 ML IV SCH ×2 (06:25→19:39)
[2022-07-14] MEDS: INSULIN ASPART (NovoLOG) 100 UNIT/ML VIAL SQ SCH ×7 (06:30→19:38)
[2022-07-14 08:19] LABS: HCT 32.1 % (39.0-53.0); HGB 10.6 gm/dL (13.0-17.5); MCH 30.1 pg (25.0-35.0); Mean Platelet Volume 8.5; Platelet Count 247 k/uL (150-450); RBC 3.53 m/uL (4.30-5.90); RDW 12.7 % (11.5-15.5); WBC 7.2 k/uL (3.8-10.6)
[2022-07-14 08:28] LABS: African American GFR (CKD) >90 (>60 ml/min/1.73 sqM); Anion Gap 5 mmol/L; Blood Urea Nitrogen 11 mg/dL (9-20); Calcium 7.9 mg/dL (8.4-10.2); Carbon Dioxide 29 mmol/L (22-30); Chloride 96 mmol/L (98-107); Glucose 237 mg/dL (74-99); Non-African American GFR(CKD) >90 (>60 ml/min/1.73 sqM); Potassium 4.8 mmol/L (3.5-5.1); Sodium 130 mmol/L (137-145)
[2022-07-14] MEDS: INSULIN DETEMIR (LEVEMIR) 100 UNIT/ML SYR SQ SCH (08:46)
[2022-07-14] MEDS: carvediloL 3.125 MG TAB PO SCH ×2 (10:24→18:14)
[2022-07-14] MEDS: PANTOPRAZOLE 40 MG TABLET PO SCH ×2 (10:24→18:54)
[2022-07-14] MEDS: DOCUSATE 100 MG CAP PO SCH ×2 (10:25→19:38)
[2022-07-14 11:34] LABS: Glucose,Whole Blood 77 mg/dL (70-110)
[2022-07-14] MEDS ORDERED: PROPOFOL 10 MG/ML 20 ML VIAL IV ONE (11:59)
[2022-07-14] MEDS ORDERED: SODIUM CHLORIDE 0.9% 500 ML 500 ML IV ONE ×2 (12:03)
--- NOTE | 2022-07-14 12:12 | P.OP ---
Date of Procedure: 07/14/22 Preoperative Diagnosis: Constipation Postoperative Diagnosis: Mild diverticulosis Poor colon prep Procedure(s) Performed: Colonoscopy Anesthesia: TRE Surgeon: Kain Lyman Pathology: none sent Condition: stable Disposition: PACU Description of Procedure: Patient's placed on the endoscopy table in the lateral position. He received IV sedation. Digital rectal exam performed which revealed a large amount liquid stool in the rectum. The flexible colonoscope was then placed patient anus passed with colon. The scope could not be passed beyond the transverse colon secondary to poor colon prep. The scope was withdrawn. There was a large amount of stool in the colon. There is a limited view of the mucosa of the descending and sigmoid colon. There is a few scattered diverticuli. The scope was then brought back the rectum this appeared normal. Scope withdrawn for patient. The patient will need to be reprepped for complete colonoscopy.
[2022-07-14] MEDS: amLODIPine 10 MG TAB PO SCH (12:34)
[2022-07-14] MEDS: levETIRAcetam 500 MG TAB PO SCH ×2 (12:34→19:38)
[2022-07-14] MEDS: DULoxetine HCL 20 MG CAPSULE.DR PO SCH (12:38)
[2022-07-14] MEDS: lisinopriL 20 MG TAB PO SCH (13:21)
--- NOTE | 2022-07-14 15:10 | P.PN ---
Subjective Patient is admitted for hyponatremia which is believed to be secondary to hydrocodone presently which was discussed uterine patient is constipated, p atient doesn't have any clinical GI bleed since his hemoglobin dropped patient the is undergoing a colonoscopy. Although patient's constipation resolved. Patient apparently had a medicated his recent admission which resolved. Patient will undergo colonoscopy tomorrow, attempted colonoscopy today failed because of poor prep. Incidentally assistance of progress note PHYSICAL EXAMINATION: GENERAL: The patient is alert and oriented x3, not in any acute distress. Well developed, well nourished. HEENT: Pupils are round and equally reacting to light. EOMI. No scleral icterus. No conjunctival pallor. Normocephalic, atraumatic. No pharyngeal erythema. No thyromegaly. CARDIOVASCULAR: S1 and S2 present. No murmurs, rubs, or gallops. PULMONARY: Chest is clear to auscultation, no wheezing or crackles. ABDOMEN: Soft, nontender, nondistended, normoactive bowel sounds. No palpable organomegaly. MUSCULOSKELETAL: No joint swelling or deformity. EXTREMITIES: No cyanosis, clubbing, or pedal edema. NEUROLOGICAL: Gross neurological examination did not reveal any focal deficits. SKIN: No rashes. Assessment and plan Severe constipation with dilated rectum 6 cm and decreased oral intake, c onstipation resolved -Drop in hemoglobin, rule out acute GI bleed colonoscopy tomorrow Hyponatremia most likely secondary to hydrochlorothiazide and chlorothiazide improving at this time Diabetic ketoacidosis, present on admission. Improved Hypertension, uncontrolled with urgency on admission . Controlled currently History of GERD Insulin-dependent diabetes mellitus Chronic atrial fibrillation on eliquis History of deep venous thrombosis DVT prophylaxis: Eliquis GI Prophylaxis: Ppi Objective - Vital Signs Vital signs: Vital Signs Temp 98.5 F 07/14/22 07:51 Pulse 73 07/14/22 12:33 Resp 16 07/14/22 12:33 BP 132/73 07/14/22 12:33 Pulse Ox 100 07/14/22 12:33 FiO2 Intake & Output 07/13/22 07/14/22 07/14/22 18:59 06:59 18:59 Intake Total 120 218 Output Total 1100 800 Balance -980 -800 218 Intake: IV 100 Oral 120 118 Output: Urine 1100 800 Other: Voiding Method Urinal Urinal # Voids 1 # Bowel Movements 1 - Labs CBC & Chem 7: 07/14/22 07:30 07/14/22 07:25 Labs: Abnormal Lab Results - Last 24 Hours (Table) 07/13/22 07/13/22 07/13/22 Range/Units 08:35 16:46 19:49 RBC (4.30-5.90) m/uL Hgb (13.0-17.5) gm/dL Hct (39.0-53.0) % Sodium (137-145) mmol/L Chloride (98-107) mmol/L Glucose (74-99) mg/dL POC Glucose (mg/dL) 264 H 215 H (70-110) mg/dL Calcium (8.4-10.2) mg/dL Iron 58 L (65-175) ug/dL Transferrin 186.0 L (204.0-354.0) mg/dL 07/14/22 07/14/22 07/14/22 Range/Units 01:59 06:08 07:25 RBC (4.30-5.90) m/uL Hgb (13.0-17.5) gm/dL Hct (39.0-53.0) % Sodium 130 L (137-145) mmol/L Chloride 96 L (98-107) mmol/L Glucose 237 H (74-99) mg/dL POC Glucose (mg/dL) 312 H 307 H (70-110) mg/dL Calcium 7.9 L (8.4-10.2) mg/dL Iron (65-175) ug/dL Transferrin (204.0-354.0) mg/dL 07/14/22 Range/Units 07:30 RBC 3.53 L (4.30-5.90) m/uL Hgb 10.6 L (13.0-17.5) gm/dL Hct 32.1 L (39.0-53.0) % Sodium (137-145) mmol/L Chloride (98-107) mmol/L Glucose (74-99) mg/dL POC Glucose (mg/dL) (70-110) mg/dL Calcium (8.4-10.2) mg/dL Iron (65-175) ug/dL Transferrin (204.0-354.0) mg/dL
[2022-07-14 16:39] LABS: Glucose,Whole Blood 109 mg/dL (70-110)
[2022-07-14 19:33] LABS: Glucose,Whole Blood 191 mg/dL (70-110)
[2022-07-14 19:53] VITALS: RESP 18
[2022-07-15 07:34] LABS: Glucose,Whole Blood 533 mg/dL (70-110)
[2022-07-15] MEDS: INSULIN ASPART (NovoLOG) 100 UNIT/ML VIAL SQ SCH ×4 (07:36→12:31)
[2022-07-15] MEDS: carvediloL 3.125 MG TAB PO SCH (07:37)
[2022-07-15] MEDS: PANTOPRAZOLE 40 MG TABLET PO SCH (07:37)
[2022-07-15] MEDS: INSULIN DETEMIR (LEVEMIR) 100 UNIT/ML SYR SQ SCH (07:37)
[2022-07-15] MEDS ORDERED: lisinopriL 10 MG TAB PO SCH (09:00)
[2022-07-15 09:25] LABS: African American GFR (CKD) >90 (>60 ml/min/1.73 sqM); Anion Gap 9 mmol/L; Blood Urea Nitrogen 8 mg/dL (9-20); Carbon Dioxide 24 mmol/L (22-30); Chloride 97 mmol/L (98-107); Glucose 337 mg/dL (74-99); Non-African American GFR(CKD) >90 (>60 ml/min/1.73 sqM); Potassium 4.8 mmol/L (3.5-5.1); Sodium 130 mmol/L (137-145)
[2022-07-15 09:46] VITALS: BP 131/69; TEMP 98.4
[2022-07-15] MEDS: amLODIPine 10 MG TAB PO SCH (10:52)
[2022-07-15] MEDS: levETIRAcetam 500 MG TAB PO SCH (10:52)
[2022-07-15] MEDS: DOCUSATE 100 MG CAP PO SCH (10:52)
[2022-07-15] MEDS: DULoxetine HCL 20 MG CAPSULE.DR PO SCH (10:52)
[2022-07-15 12:06] LABS: Glucose,Whole Blood 108 mg/dL (70-110)
--- NOTE | 2022-07-15 12:19 | P.DS ---
Providers Date of admission: 07/07/22 22:51 Attending physician: Ean Macias Consults: 07/11/22 09:49 Consult Physician Routine Consulting Provider: Kain Lyman Consult Reason/Comments: constipation and epigastric tenderness Do you want consulting provider notified?: Yes Primary care physician: Demetrius Burnham [facility] Course: 07/15/2022 Patient was admitted for DKA which resolved patient was also hyponatremic which is believed to be secondary to hydrochlorothiazide. Patient hemoglobin did drop which I believe is secondary to IV fluids although there was a concern about GI bleed that is no clinical evidence of GI bleed patient doesn't have any blood in the stools or dark stools patient although is in a course patient had attempted colonoscopy which failed because of her poor prep patient is constipated. I do not believe patient has a GI bleed and there is no clinical evidence for that because of which I'm resuming his a course and the Plavix. Patient appears to be highly noncompliant with medications patient blood sugars are well controlled with much lower doses of insulin than his home doses. Extensive counseling was provided as per the patient patient out of the prescriptions. Prescriptions for all his medications were provided patient will be discharged to follow with his previous outpatient. PHYSICAL EXAMINATION: GENERAL: The patient is alert and oriented x3, not in any acute distress. Well developed, well nourished. HEENT: Pupils are round and equally reacting to light. EOMI. No scleral icterus. No conjunctival pallor. Normocephalic, atraumatic. No pharyngeal erythema. No thyromegaly. CARDIOVASCULAR: S1 and S2 present. No murmurs, rubs, or gallops. PULMONARY: Chest is clear to auscultation, no wheezing or crackles. ABDOMEN: Soft, nontender, nondistended, normoactive bowel sounds. No palpable organomegaly. MUSCULOSKELETAL: No joint swelling or deformity. EXTREMITIES: No cyanosis, clubbing, or pedal edema. NEUROLOGICAL: Gross neurological examination did not reveal any focal deficits. SKIN: No rashes. Assessment and plan Severe constipation with dilated rectum 6 cm and decreased oral intake, constipation resolved -Drop in hemoglobin, secondary to evaluate her affect note and severe bleed Hyponatremia most likely secondary to hydrochlorothiazide Diabetic ketoacidosis, present on admission. Improved Hypertension, uncontrolled with urgency on admission . Controlled currently History of GERD Insulin-dependent diabetes mellitus controlled elevated blood sugars on admission secondary to noncompliance Chronic atrial fibrillation on eliquis History of deep venous thrombosis Patient Condition at Discharge: Serious Plan - Discharge Summary Discharge Rx Participant: Yes New Discharge Prescriptions: New levETIRAcetam [Keppra] 500 mg PO Q12HR #60 tab Apixaban [Eliquis] 5 mg PO BID #60 tab polyethylene glycoL 3350 [Miralax] 17 gm PO DAILY PRN #30 packet PRN Reason: Constipation Continue carvediloL [Coreg] 3.125 mg PO BID-W/MEALS #60 tab DULoxetine HCL [Cymbalta] 20 mg PO DAILY 30 Days #30 cap Pantoprazole [Protonix] 40 mg PO BID 30 Days #60 tab lisinopriL [Zestril] 20 mg PO DAILY #30 tab amLODIPine [Norvasc] 10 mg PO DAILY #30 tab Clopidogrel [Plavix] 75 mg PO DAILY 30 Days #30 tab Changed INSULIN ASPART (NovoLOG) [NovoLOG (formulary)] 8 unit SQ AC-TID #30 day Insulin Glargine [Lantus Vial] 20 unit SQ HS #30 day Discontinued hydroCHLOROthiazide [Hydrodiuril] 25 mg PO DAILY #30 tab Apixaban [Eliquis Starter Pack (for VTE)] See Taper PO DIRECTED Glimepiride [Amaryl] 2 mg PO DAILY #30 tab Apixaban [Eliquis Starter Pack (for VTE)] Discharge Medication List Apixaban [Eliquis] 5 mg PO BID #60 tab 07/15/22 [Rx] Clopidogrel [Plavix] 75 mg PO DAILY 30 Days #30 tab 07/15/22 [Rx] DULoxetine HCL [Cymbalta] 20 mg PO DAILY 30 Days #30 cap 07/15/22 [Rx] INSULIN ASPART (NovoLOG) [NovoLOG (formulary)] 8 unit SQ AC-TID #30 day 07/15/22 [Rx] Insulin Glargine [Lantus Vial] 20 unit SQ HS #30 day 07/15/22 [Rx] Pantoprazole [Protonix] 40 mg PO BID 30 Days #60 tab 07/15/22 [Rx] amLODIPine [Norvasc] 10 mg PO DAILY #30 tab 07/15/22 [Rx] carvediloL [Coreg] 3.125 mg PO BID-W/MEALS #60 tab 07/15/22 [Rx] levETIRAcetam [Keppra] 500 mg PO Q12HR #60 tab 07/15/22 [Rx] lisinopriL [Zestril] 20 mg PO DAILY #30 tab 07/15/22 [Rx] polyethylene glycoL 3350 [Miralax] 17 gm PO DAILY PRN #30 packet 07/15/22 [Rx] Follow up Appointment(s)/Referral(s): Betito Romo MD [Primary Care Provider] - 1-2 days Activity/Diet/Wound Care/Special Instructions: Indigent fund form in chart - send to Cat Aguilar at time of discharge Discharge Disposition: HOME SELF-CARE
[2022-07-15 12:38] VITALS: PULSE 79
--- NOTE | 2022-07-15 14:32 | P.PN ---
Subjective Progress Note Date: 07/15/22 CHIEF COMPLAINT: Constipation HISTORY OF PRESENT ILLNESS: Patient is status post colonoscopy revealing mild diverticulosis with a poor colon prep. Patient is tolerating diet. Denies abdominal pain. Patient is scheduled for discharge today. Patient seen and examined with Dr. Lyman PHYSICAL EXAM: VITAL SIGNS: Reviewed. GENERAL: Well-developed in no acute distress. HEENT: No sclera icterus. Extraocular movements grossly intact. Moist buccal mucosa. Head is atraumatic, normocephalic. ABDOMEN: Soft. Nondistended. Nontender. NEUROLOGIC: Alert and oriented. Cranial nerves II through XII grossly intact. ASSESSMENT: 1. Constipation 2. Mild diverticulosis 3. DKA PLAN: -Patient is stable from surgical standpoint for discharge -Patient will eventually need a repeat colonoscopy due to poor bowel prep in the outpatient Physician Chain Maker note has been reviewed by physician. Signing provider agrees with the documented findings, assessment, and plan of care. Objective - Vital Signs Vital signs: Vital Signs Temp 98.4 F 07/15/22 08:00 Pulse 79 07/15/22 12:00 Resp 18 07/15/22 08:00 BP 131/69 07/15/22 08:00 Pulse Ox 99 07/15/22 08:00 FiO2 Intake & Output 07/14/22 07/15/22 07/15/22 18:59 06:59 18:59 Intake Total 698 1740 598 Output Total 900 950 Balance 698 840 -352 Weight 55.792 kg Intake: IV 100 Oral 598 1740 598 Output: Urine 900 950 Other: Voiding Method Urinal Urinal - Labs CBC & Chem 7: 07/14/22 07:30 07/15/22 08:35 Labs: Abnormal Lab Results - Last 24 Hours (Table) 07/14/22 07/15/22 07/15/22 Range/Units 19:31 07:32 08:35 Sodium 130 L (137-145) mmol/L Chloride 97 L (98-107) mmol/L BUN 8 L (9-20) mg/dL Glucose 337 H (74-99) mg/dL POC Glucose (mg/dL) 191 H 533 H (70-110) mg/dL Calcium 8.0 L (8.4-10.2) mg/dL
== END 2022-07-15 16:45 | disposition home or self-care (01) | DRG 638 ==
LOC: EC 15:50 → 3SCARD 22:51
PROVIDERS: ADMIT Internal Medicine; ATTEND Internal Medicine
PROC: 0DJD8ZZ Inspection of Lower Intestinal Tract, Via Natural or Artificial Opening Endoscopic (ICD-10-PCS; principal; 2022-07-14 14:05)
DX: E11.10 Type 2 diabetes mellitus with ketoacidosis without coma (principal); E87.1 Hypo-osmolality and hyponatremia; I48.20 Chronic atrial fibrillation, unspecified; E11.51 Type 2 diabetes mellitus with diabetic peripheral angiopathy without gangrene; E78.5 Hyperlipidemia, unspecified; I10 Essential (primary) hypertension; I16.0 Hypertensive urgency; I25.2 Old myocardial infarction; D64.9 Anemia, unspecified; K56.41 Fecal impaction; K57.90 Diverticulosis of intestine, part unspecified, without perforation or abscess without bleeding; F14.10 Cocaine abuse, uncomplicated; F12.10 Cannabis abuse, uncomplicated; T50.2X5A Adverse effect of carbonic-anhydrase inhibitors, benzothiadiazides and other diuretics, initial encounter; Z79.01 Long term (current) use of anticoagulants; Z79.02 Long term (current) use of antithrombotics/antiplatelets; Z79.4 Long term (current) use of insulin; Z79.84 Long term (current) use of oral hypoglycemic drugs; Z79.899 Other long term (current) drug therapy; Z82.49 Family history of ischemic heart disease and other diseases of the circulatory system; Z86.718 Personal history of other venous thrombosis and embolism; Z87.891 Personal history of nicotine dependence; Z89.519 Acquired absence of unspecified leg below knee; T38.3X6A Underdosing of insulin and oral hypoglycemic [antidiabetic] drugs, initial encounter; Z91.128 Patient's intentional underdosing of medication regimen for other reason; Z87.01 Personal history of pneumonia (recurrent); Z71.89 Other specified counseling; Z91.199 Patient's noncompliance with other medical treatment and regimen due to unspecified reason; Z71.3 Dietary counseling and surveillance; Z28.310 Unvaccinated for COVID-19; Z88.6 Allergy status to analgesic agent; Z88.8 Allergy status to other drugs, medicaments and biological substances; Z53.09 Procedure and treatment not carried out because of other contraindication
CPT/HCPCS: 36415; 45378; 71046; 74018; 80048; 80051; 80053; 80076; 80306; 81001; 82009; 82565; 82607; 82728; 82746; 82947; 83540; 83550; 83735; 84100; 84520; 85025; 85027; 93005

== ENCOUNTER 2024-03-23 19:06 | Emergency (ER) | payer MEDICARE, OTHER ==
[2024-03-23 19:16] VITALS: TEMP 98
--- NOTE | 2024-03-23 20:11 | ED ---
Extremity Problem HPI - General Chief complaint: Extremity Problem,Nontraumatic Stated complaint: R leg pain Time Seen by Provider: 03/23/24 19:30 Source: patient, RN notes reviewed Mode of arrival: wheelchair Limitations: no limitations - History of Present Illness Initial comments: 58-year-old male presenting to the ED with a chief complaint of right leg pain. Patient states when he woke up this morning and got out of bed started to experience intermittent cramping of his right lower extremity. Denies any recent injury or trauma. Denies chest pain or shortness of breath. No other complaints at this time. - Related Data Previous Rx's Medication Instructions Recorded Apixaban [Eliquis] 5 mg PO BID #60 tab 07/15/22 Clopidogrel [Plavix] 75 mg PO DAILY 30 Days #30 tab 07/15/22 DULoxetine HCL [Cymbalta] 20 mg PO DAILY 30 Days #30 cap 07/15/22 INSULIN ASPART (NovoLOG) [NovoLOG 8 unit SQ AC-TID #30 day 07/15/22 (formulary)] Insulin Glargine [Lantus Vial] 20 unit SQ HS #30 day 07/15/22 Pantoprazole [Protonix] 40 mg PO BID 30 Days #60 tab 07/15/22 amLODIPine [Norvasc] 10 mg PO DAILY #30 tab 07/15/22 carvediloL [Coreg] 3.125 mg PO BID-W/MEALS #60 tab 07/15/22 levETIRAcetam [Keppra] 500 mg PO Q12HR #60 tab 07/15/22 lisinopriL [Zestril] 20 mg PO DAILY #30 tab 07/15/22 polyethylene glycoL 3350 [Miralax] 17 gm PO DAILY PRN #30 packet 07/15/22 Allergies Allergy/AdvReac Type Severity Reaction Status Date / Time atorvastatin [From Lipitor] Allergy Swelling Verified 03/23/24 19:16 ibuprofen Allergy Swelling Verified 03/23/24 19:16 pregabalin [From Lyrica] Allergy Swelling Verified 03/23/24 19:16 Review of Systems ROS Statement: Those systems with pertinent positive or pertinent negative responses have been documented in the HPI. ROS Other: All systems not noted in ROS Statement are negative. Past Medical History Past Medical History: Atrial Fibrillation, Diabetes Mellitus, Deep Vein Thrombosis (DVT), Hyperlipidemia, Hypertension, Myocardial Infarction (AR), Pneumonia, Vascular Disorder Additional Past Medical History / Comment(s): uvitis glaucoma, PVD, dvt to lower left leg Last Myocardial Infarction Date:: unknown History of Any Multi-Drug Resistant Organisms: MRSA Date of last positivie culture/infection: 06/30/20 MDRO Source:: Left Leg Past Surgical History: Hernia Repair, Orthopedic Surgery Additional Past Surgical History / Comment(s): aortgram w/ runnoff, eye surg implant, bilateral knee SX, left vein stripping in 02/2020 x2, vein graft and toe amputation Past Anesthesia/Blood Transfusion Reactions: No Reported Reaction Additional Past Anesthesia/Blood Transfusion Reaction / Comment(s): no hx blood transfusion Past Psychological History: No Psychological Hx Reported Smoking Status: Former smoker Past Alcohol Use History: Rare Past Drug Use History: Marijuana - Past Family History Mother History Unknown: Yes Brother(s) Family Medical History: COPD Additional Family Medical History / Comment(s): passed from COPD Father Family Medical History: Myocardial Infarction (AR) Additional Family Medical History / Comment(s): passed from AR General Exam Limitations: no limitations General appearance: alert, in no apparent distress Eye exam: Present: normal appearance Neck exam: Present: normal inspection Respiratory exam: Present: normal lung sounds bilaterally Cardiovascular Exam: Present: regular rate GI/Abdominal exam: Present: soft, normal bowel sounds. Absent: distended, tenderness, guarding, rebound, rigid Extremities exam: Present: other (DP/PT pulses intact of right lower extremity. No pitting edema. No overlying skin changes. Reported tenderness to palpation upon squeezing the calf.) Neurological exam: Present: alert, oriented X3 Skin exam: Present: warm, dry Course Vital Signs 03/23/24 19:10 Temperature 98.0 F Pulse Rate 108 H Respiratory 22 Rate Blood Pressure 170/87 O2 Sat by Pulse 97 Oximetry Medical Decision Making - Medical Decision Making Was pt. sent in by a medical professional or institution ([facility], DEBEAKER, urgent care, hospital, or group home...) When possible be specific @ -No Did you speak to anyone other than the patient for history (EMS, parent, family, police, friend...)? What history was obtained from this source @ -No Did you review nursing and triage notes (agree or disagree)? Why? @ -I reviewed and agree with nursing and triage notes Were old charts reviewed (outside hosp., previous admission, EMS record, old EKG, old radiological studies, urgent care reports/EKG's, group home records)? Report findings @ -No old charts were reviewed Differential Diagnosis (chest pain, altered mental status, abdominal pain women, abdominal pain men, vaginal bleeding, weakness, fever, dyspnea, syncope, headache, dizziness, GI bleed, back pain, seizure, CVA, palpatations, mental health, musculoskeletal)? @ -Differential Musculoskeletal Muscular strain, contusion, ligament sprain, fracture, arthritis, septic arthritis, bursitis, cellulitis, muscle spasm, nerve compression, DVT, arterial occlusion, herpes zoster, electrolyte abnormality, tumor.... This is not meant to be in all inclusive list EKG interpreted by me (3pts min.). @ -None X-rays interpreted by me (1pt min.). @ -X-ray of the tib-fib interpreted revealed no evidence of acute finding. CT interpreted by me (1pt min.). @ -None done U/S interpreted by me (1pt. min.). @ -Ultrasound interpreted by me which revealed no evidence of DVT or other acute finding. What testing was considered but not performed or refused? (CT, X-rays, U/S, labs)? Why? @ -None What meds were considered but not given or refused? Why? @ -None Did you discuss the management of the patient with other professionals (professionals i.e. , PA, DEBEAKER, lab, RT, psych nurse, family welfare social work professor, iron setter, teacher, transportation officer, casey saw operator)? Give summary @ -No Was smoking cessation discussed for >3mins.? @ -No Was critical care preformed (if so, how long)? @ -No Were there social determinants of health that impacted care today? How? (Homelessness, low income, unemployed, alcoholism, drug addiction, transportation, low edu. Level, literacy, decrease access to med. care, nursing home, rehab)? @ -No Was there de-escalation of care discussed even if they declined (Discuss DNR or withdrawal of care, Hospice)? DNR status @ -No What co-morbidities impacted this encounter? (DM, HTN, Smoking, COPD, CAD, Cancer, CVA, ARF, Chemo, Hep., AIDS, mental health diagnosis, sleep apnea, morbid obesity)? @ -None Was patient admitted / discharged? Hospital course, mention meds given and route, prescriptions, significant lab abnormalities, going to OR and other pertinent info. @ -Discharge 58-year-old male presenting to the ED with complaints of cramping of his right leg since he woke up today. No recent injuries or trauma. Imaging studies performed which revealed no evidence of acute finding. Patient discharged home in stable condition. Advise close follow-up with his PCP. Discussed return precautions with patient who verbalized agreement. Undiagnosed new problem with uncertain prognosis? @ -No Drug Therapy requiring intensive monitoring for toxicity (Heparin, Nitro, Insulin, Cardizem)? @ -No Were any procedures done? @ -No Diagnosis/symptom? @ -Right leg pain Acute, or Chronic, or Acute on Chronic? @ -Acute Uncomplicated (without systemic symptoms) or Complicated (systemic symptoms)? @ -Uncomplicated Side effects of treatment? @ -No Exacerbation, Progression, or Severe Exacerbation? @ -No Poses a threat to life or bodily function? How? (Chest pain, USA, AR, pneumonia, PE, COPD, DKA, ARF, appy, cholecystitis, CVA, Diverticulitis, Homicidal, Suicidal, threat to staff... and all critical care pts) @ -No Disposition Clinical Impression: Right leg pain Disposition: HOME SELF-CARE Condition: Good Additional Instructions: Please return to the Emergency Department if symptoms worsen or any other concerns. Please follow-up with your PCP. Take [id number] medications as needed for pain. Is patient prescribed a controlled substance at d/c from ED?: No Referrals: None,Stated [Primary Care Provider] - 1-2 days Time of Disposition: 22:25
[2024-03-23] MEDS: ACETAMINOPHEN TAB 500 MG TAB PO STA (20:34)
[2024-03-23] MEDS: ORPHENADRINE 30 MG/ML 2 ML VIAL IM STA (20:35)
--- NOTE | 2024-03-23 21:05 | XR ---
EXAMINATION TYPE: XR tibia fibula 2 views RT DATE OF EXAM: 03/23/2024 COMPARISON: NONE HISTORY: 58-year-old male right leg pain since this morning, assess for any injury FINDINGS: There is moderate degenerative spurring in the medial compartment and at least moderate degenerative change in the patellofemoral compartment. Vascular calcifications. Knee and ankle articulations other ivey appear grossly intact. No acute fracture. IMPRESSION: No acute osseous abnormality seen. Moderate degenerative change medial and patellofemoral compartment s of the knee.
--- NOTE | 2024-03-23 21:47 | US ---
EXAMINATION TYPE: US venous doppler duplex LE RT DATE OF EXAM: 03/23/2024 8:58 PM COMPARISON: US 2021, US 2018 CLINICAL INDICATION: Male, 58 years old with history of r/o DVT; Patient states right leg pain. Patie nt has hx of DVT, is not on thinners currently. Patient has graft. SIDE PERFORMED: Right TECHNIQUE: The lower extremity deep venous system is examined utilizing real time linear array sonog dago with graded compression, doppler sonography and color-flow sonography. VESSELS IMAGED: Common Femoral Vein Deep Femoral Vein Greater Saphenous Vein * Femoral Vein Popliteal Vein Small Saphenous Vein * Proximal Calf Veins (* superficial vessels) Right Leg: Curriculum Specialist notes: Negative for DVT as best seen today. Distal CFV comp deferred due to pa tient pain IMPRESSION: No evidence for DVT within the right lower extremity imaged from the groin to the upper c ibis.
[2024-03-23 22:41] VITALS: BP 162/85; PULSE 81; RESP 16
== END 2024-03-23 22:41 | disposition home or self-care (01) ==
LOC: EC 19:06
DX: G89.29 Other chronic pain (principal); M79.604 Pain in right leg; Z87.891 Personal history of nicotine dependence; Z88.8 Allergy status to other drugs, medicaments and biological substances
CPT/HCPCS: 73590; 93971; 99284; 96372; J2360

== ENCOUNTER 2024-03-27 11:00 | Emergency (ER) | payer MEDICARE, OTHER ==
[2024-03-27 12:31] LABS: ALT 29 U/L (4-49); AST 24 U/L (17-59); African American GFR (CKD) >90 (>60 ml/min/1.73 sqM); Albumin 3.8 g/dL (3.5-5.0); Alkaline Phosphatase 98 U/L (38-126); Anion Gap 3 mmol/L; Blood Urea Nitrogen 16 mg/dL (9-20); Calcium 9.4 mg/dL (8.4-10.2); Carbon Dioxide 30 mmol/L (22-30); Chloride 97 mmol/L (98-107); Glucose 464 mg/dL (74-99); Magnesium 1.8 mg/dL (1.6-2.3); Non-African American GFR(CKD) >90 (>60 ml/min/1.73 sqM); Potassium 4.7 mmol/L (3.5-5.1); Sodium 130 mmol/L (137-145); Total Bilirubin 1.2 mg/dL (0.2-1.3); Total Protein 6.5 g/dL (6.3-8.2)
--- NOTE | 2024-03-27 12:34 | ED ---
Extremity Problem HPI - General Chief complaint: Extremity Problem,Nontraumatic Stated complaint: R leg pain Time Seen by Provider: 03/27/24 11:21 Source: patient, RN notes reviewed Mode of arrival: wheelchair Limitations: no limitations - History of Present Illness Initial comments: This is a 58-year-old male who presents to the emergency department for right leg pain and cramping. Patient states that this started 4 days ago. Pain and cramping are only present when he ambulates and it resolves at rest. This only occurs in the right calf. When he was in the emergency department 4 days ago he was given medication and his symptoms improved for about an hour and then returned. Denies any chest pain or shortness of breath. He had imaging 4 days ago that was negative. Patient is currently homeless. - Related Data Previous Rx's Medication Instructions Recorded Apixaban [Eliquis] 5 mg PO BID #60 tab 07/15/22 Clopidogrel [Plavix] 75 mg PO DAILY 30 Days #30 tab 07/15/22 DULoxetine HCL [Cymbalta] 20 mg PO DAILY 30 Days #30 cap 07/15/22 INSULIN ASPART (NovoLOG) [NovoLOG 8 unit SQ AC-TID #30 day 07/15/22 (formulary)] Insulin Glargine [Lantus Vial] 20 unit SQ HS #30 day 07/15/22 Pantoprazole [Protonix] 40 mg PO BID 30 Days #60 tab 07/15/22 amLODIPine [Norvasc] 10 mg PO DAILY #30 tab 07/15/22 carvediloL [Coreg] 3.125 mg PO BID-W/MEALS #60 tab 07/15/22 levETIRAcetam [Keppra] 500 mg PO Q12HR #60 tab 07/15/22 lisinopriL [Zestril] 20 mg PO DAILY #30 tab 07/15/22 polyethylene glycoL 3350 [Miralax] 17 gm PO DAILY PRN #30 packet 07/15/22 Cyclobenzaprine [Flexeril] 5 - 10 mg PO TID PRN #30 tablet 03/27/24 Allergies Allergy/AdvReac Type Severity Reaction Status Date / Time atorvastatin [From Lipitor] Allergy Swelling Verified 03/23/24 19:16 ibuprofen Allergy Swelling Verified 03/23/24 19:16 pregabalin [From Lyrica] Allergy Swelling Verified 03/23/24 19:16 Review of Systems ROS Statement: Those systems with pertinent positive or pertinent negative responses have been documented in the HPI. ROS Other: All systems not noted in ROS Statement are negative. Past Medical History Past Medical History: Atrial Fibrillation, Diabetes Mellitus, Deep Vein Thrombosis (DVT), Hyperlipidemia, Hypertension, Myocardial Infarction ([place]), Pneumonia, Vascular Disorder Additional Past Medical History / Comment(s): uvitis glaucoma, PVD, dvt to lower left leg Last Myocardial Infarction Date:: unknown History of Any Multi-Drug Resistant Organisms: MRSA Date of last positivie culture/infection: 06/30/20 MDRO Source:: Left Leg Past Surgical History: Hernia Repair, Orthopedic Surgery Additional Past Surgical History / Comment(s): aortgram w/ runnoff, eye surg implant, bilateral knee SX, left vein stripping in 02/2020 x2, vein graft and toe amputation Past Anesthesia/Blood Transfusion Reactions: No Reported Reaction Additional Past Anesthesia/Blood Transfusion Reaction / Comment(s): no hx blood transfusion Past Psychological History: No Psychological Hx Reported Smoking Status: Former smoker Past Alcohol Use History: Rare Past Drug Use History: Marijuana - Past Family History Mother History Unknown: Yes Brother(s) Family Medical History: COPD Additional Family Medical History / Comment(s): passed from COPD Father Family Medical History: Myocardial Infarction ([place]) Additional Family Medical History / Comment(s): passed from [place] General Exam Limitations: no limitations General appearance: alert, in no apparent distress Head exam: Present: atraumatic, normocephalic, normal inspection Respiratory exam: Present: normal lung sounds bilaterally. Absent: respiratory distress, wheezes, rales, rhonchi, stridor Cardiovascular Exam: Present: regular rate, normal rhythm, normal heart sounds. Absent: systolic murmur, diastolic murmur, rubs, gallop, clicks Extremities exam: Present: other (No tenderness, swelling, erythema, or deformities to the right calf. 2+ DP and PT pulses.) Neurological exam: Present: alert, oriented X3, CN II-XII intact Psychiatric exam: Present: normal affect, normal mood Skin exam: Present: warm, dry, intact, normal color. Absent: rash Course Vital Signs 03/27/24 03/27/24 03/27/24 11:17 15:34 16:37 Temperature 97.9 F 98.1 F 98.0 F Pulse Rate 84 65 62 Respiratory 16 14 16 Rate Blood Pressure 165/83 182/93 171/87 O2 Sat by Pulse 99 100 98 Oximetry Medical Decision Making - Medical Decision Making This is a 58-year-old male who presents to the emergency department for right leg pain/cramping. Was pt. sent in by a medical professional or institution? @ -No Did you speak to anyone other than the patient for history? @ -No Did you review nursing and triage notes? @ -Yes, and I agree, it is accurate with regards to the patient's symptoms. Were old charts reviewed? @ -Duplex ultrasound of the right lower extremity from 03/23/2024 demonstrating no evidence of a DVT. X-ray of the right tib-fib from 03/23/2024 demonstrates no acute process. Differential Diagnosis? @ -Differential Musculoskeletal Muscular strain, contusion, ligament sprain, fracture, arthritis, septic arthritis, bursitis, cellulitis, muscle spasm, nerve compression, DVT, arterial occlusion, herpes zoster, electrolyte abnormality, tumor.... This is not meant to be in all inclusive list EKG interpreted by me (3pts min.)? @ -Not obtained X-rays interpreted by me (1pt min.)? @ -Not obtained CT interpreted by me (1pt min.)? @ -Not obtained U/S interpreted by me (1pt. min.)? @ -Not obtained What testing was considered but not performed? (CT, X-rays, U/S, labs)? Why? @ -None What meds were considered but not given? Why? @ -None Did you discuss the management of the patient with other professionals? @ -No Did you reconcile home meds? @ -No Was smoking cessation discussed for >3mins.? @ -No Was critical care preformed (if so, how long)? @ -No Were there social determinants of health that impacted care today? How? (Homelessness, low income, unemployed, alcoholism, drug addiction, transportation, low edu. Level, literacy, decrease access to med. care, long-term, rehab)? 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 Was there de-escalation of care discussed even if they declined? (Discuss DNR or withdrawal of care, Hospice)? @ -No What co-morbidities impacted this encounter? (DM, HTN, Smoking, COPD, CAD, Cancer, CVA, Hep., AIDS, mental health diagnosis, sleep apnea, morbid obesity)? @ -DM, vascular disorder, hx of DVT Was patient admitted / discharged? @ -Discharged. Lab work demonstrates hyperglycemia and was otherwise unremarkable. Duplex ultrasound and x-ray of the right tib-fib from 4 days ago were reviewed demonstrating no acute process. Patient's physical examination was unremarkable. Patient was treated with a muscle relaxant and Tylenol and he was also given insulin for the hyperglycemia. Given that the symptoms are present with movement and improved with rest, advised that this may be related to claudication. He was given a prescription for Flexeril in case there is any musculoskeletal component, however I advised that if this is a vascular issue such as claudication, he will likely not experience any relief for this. Information for vascular surgery follow-up provided. Patient discharged in stable condition. Undiagnosed new problem with uncertain prognosis? @ -None Drug Therapy requiring intensive monitoring for toxicity (Heparin, Nitro, Insulin, Cardizem)? @ -None Were any procedures done? @ -None Diagnosis/symptom? @ -Right leg pain Acute, or Chronic, or Acute on Chronic? @ -Acute Uncomplicated (without systemic symptoms) or Complicated (systemic symptoms)? @ -Uncomplicated Side effects of treatment? @ -None Exacerbation, Progression, or Severe Exacerbation] @ -Not applicable Poses a threat to life or bodily function? @ -No Return precautions reviewed in depth, the patient is instructed to return to the emergency department with any new, worsening, or concerning symptoms. Patient verbalized understanding. This case was discussed in detail with the attending ED physician, Dr. Dempsey. Presentation, findings, and treatment plan discussed in detail as well. - Lab Data Result diagrams: 03/27/24 12:08 03/27/24 12:08 Lab Results 03/27/24 03/27/24 03/27/24 Range/Units 12:08 12:08 12:08 WBC 8.9 (3.8-10.6) k/uL RBC 4.50 (4.30-5.90) m/uL Hgb 12.9 L (13.0-17.5) gm/dL Hct 40.8 (39.0-53.0) % MCV 90.7 (80.0-100.0) fL MCH 28.7 (25.0-35.0) pg MCHC 31.6 (31.0-37.0) g/dL RDW 12.9 (11.5-15.5) % Plt Count 173 (150-450) k/uL MPV 8.2 Neutrophils % 78 % Lymphocytes % 13 % Monocytes % 6 % Eosinophils % 1 % Basophils % 0 % Neutrophils # 6.9 (1.3-7.7) k/uL Lymphocytes # 1.2 (1.0-4.8) k/uL Monocytes # 0.5 (0-1.0) k/uL Eosinophils # 0.1 (0-0.7) k/uL Basophils # 0.0 (0-0.2) k/uL Sodium 130 L (137-145) mmol/L Potassium 4.7 (3.5-5.1) mmol/L Chloride 97 L (98-107) mmol/L Carbon Dioxide 30 (22-30) mmol/L Anion Gap 3 mmol/L BUN 16 (9-20) mg/dL Creatinine 0.90 (0.66-1.25) mg/dL Est GFR (CKD-EPI)AfAm >90 (>60 ml/min/1.73 sqM) Est GFR (CKD-EPI)NonAf >90 (>60 ml/min/1.73 sqM) Glucose 464 H (74-99) mg/dL POC Glucose (mg/dL) (70-110) mg/dL POC Glu Blood Bank Coordinator ID Plasma Lactic Acid Todd 1.3 (0.7-2.0) mmol/L Calcium 9.4 (8.4-10.2) mg/dL Magnesium 1.8 (1.6-2.3) mg/dL Total Bilirubin 1.2 (0.2-1.3) mg/dL AST 24 (17-59) U/L ALT 29 (4-49) U/L Alkaline Phosphatase 98 (38-126) U/L Total Protein 6.5 (6.3-8.2) g/dL Albumin 3.8 (3.5-5.0) g/dL 03/27/24 Range/Units 14:52 WBC (3.8-10.6) k/uL RBC (4.30-5.90) m/uL Hgb (13.0-17.5) gm/dL Hct (39.0-53.0) % MCV (80.0-100.0) fL MCH (25.0-35.0) pg MCHC (31.0-37.0) g/dL RDW (11.5-15.5) % Plt Count (150-450) k/uL MPV Neutrophils % % Lymphocytes % % Monocytes % % Eosinophils % % Basophils % % Neutrophils # (1.3-7.7) k/uL Lymphocytes # (1.0-4.8) k/uL Monocytes # (0-1.0) k/uL Eosinophils # (0-0.7) k/uL Basophils # (0-0.2) k/uL Sodium (137-145) mmol/L Potassium (3.5-5.1) mmol/L Chloride (98-107) mmol/L Carbon Dioxide (22-30) mmol/L Anion Gap mmol/L BUN (9-20) mg/dL Creatinine (0.66-1.25) mg/dL Est GFR (CKD-EPI)AfAm (>60 ml/min/1.73 sqM) Est GFR (CKD-EPI)NonAf (>60 ml/min/1.73 sqM) Glucose (74-99) mg/dL POC Glucose (mg/dL) 366 H (70-110) mg/dL POC Glu Blood Bank Coordinator ID Angella Puente Plasma Lactic Acid Todd (0.7-2.0) mmol/L Calcium (8.4-10.2) mg/dL Magnesium (1.6-2.3) mg/dL Total Bilirubin (0.2-1.3) mg/dL AST (17-59) U/L ALT (4-49) U/L Alkaline Phosphatase (38-126) U/L Total Protein (6.3-8.2) g/dL Albumin (3.5-5.0) g/dL Disposition Clinical Impression: Right leg pain, Claudication Disposition: HOME SELF-CARE Instructions (If sedation given, give patient instructions): Leg Pain (ED) Additional Instructions: Return to the emergency department with any new, worsening, or concerning symptoms. Try taking the Flexeril as 1 to 2 tablets up to 3 times daily. Be aware that this may make you drowsy. You can also take Tylenol. Contact the vascular specialist listed below for a follow-up appointment and further evaluation of possible claudication. Follow up with your primary care provider in 1-2 days. Prescriptions: Cyclobenzaprine [Flexeril] 5 - 10 mg PO TID PRN #30 tablet PRN Reason: Pain Is patient prescribed a controlled substance at d/c from ED?: No Referrals: None,Stated [Primary Care Provider] - 1-2 days Blas Alanis DO [STAFF PHYSICIAN] - 1-2 days Forms: Area PCPs, [facility] Time of Disposition: 15:06
[2024-03-27] MEDS: SODIUM CHLORIDE 0.9% 1,000 ML IV ONE (12:42)
[2024-03-27] MEDS: ORPHENADRINE 30 MG/ML 2 ML VIAL IVP STA (12:43)
[2024-03-27] MEDS: HYDROcodone/APAP 5-325MG 1 EACH TAB PO STA (12:43)
[2024-03-27 12:47] LABS: Basophils % (A) 0 %; Eosinophils # (A) 0.1 k/uL (0-0.7); Eosinophils % (A) 1 %; HCT 40.8 % (39.0-53.0); HGB 12.9 gm/dL (13.0-17.5); Lymphocytes # (A) 1.2 k/uL (1.0-4.8); Lymphocytes % (A) 13 %; MCH 28.7 pg (25.0-35.0); MCHC 31.6 g/dL (31.0-37.0); MCV 90.7 fL (80.0-100.0); Mean Platelet Volume 8.2; Monocytes # (A) 0.5 k/uL (0-1.0); Monocytes % (A) 6 %; Neutrophils # (A) 6.9 k/uL (1.3-7.7); Neutrophils % (A) 78 %; Platelet Count 173 k/uL (150-450); RDW 12.9 % (11.5-15.5); WBC 8.9 k/uL (3.8-10.6)
[2024-03-27] MEDS: INSULIN REGULAR 100 UNIT/ML VIAL (IV) IV ONE (13:34)
[2024-03-27 14:53] LABS: Glucose,Whole Blood 366 mg/dL (70-110)
[2024-03-27] MEDS: INSULIN REGULAR 100 UNIT/ML VIAL (IM/SQ) SQ ONE (15:23)
[2024-03-27] MEDS: ACET/COD 300 MG/30 MG STARTER PACK 6 TAB BTL PO STA (15:23)
[2024-03-27] MEDS: CYCLOBENZAPRINE 10MG STARTER 3 TAB BTL PO STA (15:33)
[2024-03-27 16:39] VITALS: BP 171/87; PULSE 62; RESP 16; TEMP 98
== END 2024-03-27 16:39 | disposition home or self-care (01) ==
LOC: EC 11:00
DX: E11.51 Type 2 diabetes mellitus with diabetic peripheral angiopathy without gangrene (principal); Z88.6 Allergy status to analgesic agent; Z88.8 Allergy status to other drugs, medicaments and biological substances; Z79.4 Long term (current) use of insulin; Z79.01 Long term (current) use of anticoagulants; Z79.02 Long term (current) use of antithrombotics/antiplatelets; Z86.718 Personal history of other venous thrombosis and embolism; Z87.891 Personal history of nicotine dependence; Z59.00 Homelessness unspecified
CPT/HCPCS: 36415; 80053; 83605; 83735; 85025; 99284; 96374; 96361; J2360

== ENCOUNTER 2024-04-25 15:00 | Inpatient (IN) | payer MEDICARE, OTHER ==
[2024-04-25] MEDS ORDERED: HEPARIN SOD,PORK IN 0.45% NACL 250 ML IV ONE (15:08)
[2024-04-25] MEDS ORDERED: HEPARIN SODIUM 1,000 UN/ML (10ML VL) ONE (15:09)
[2024-04-25] MEDS ORDERED: HYDROmorphone 1 MG/ML 1 ML SYRINGE ONE (15:28)
[2024-04-25] MEDS ORDERED: ceFAZolin 1,000 MG VIAL ONE (16:00)
[2024-04-25] MEDS ORDERED: SODIUM CHLORIDE 0.9% 1,000 ML BAG ONE (16:00)
[2024-04-25] MEDS ORDERED: CALCIUM CHLORIDE 100 MG/ML 10 ML SYRINGE ONE (16:35)
[2024-04-25] MEDS ORDERED: ceFAZolin 1 GM/50 ML BAG (PMX) ONE (16:35)
[2024-04-25] MEDS ORDERED: SUCCINYLCHOLINE CHLORIDE 200 MG/10 ML VIAL IV ONE (16:35)
[2024-04-25] MEDS ORDERED: PHENYLEPHRINE 10 MG/ML VIAL ONE (16:35)
[2024-04-25] MEDS ORDERED: MIDAZOLAM 2 MG/2 ML VIAL ONE (16:35)
[2024-04-25] MEDS ORDERED: PROPOFOL 10 MG/ML 20 ML VIAL IV ONE (16:35)
[2024-04-25] MEDS ORDERED: GLYCOPYRROLATE 0.2 MG/ML 2 ML VIAL ONE (16:35)
[2024-04-25] MEDS ORDERED: ALBUMIN HUMAN 5% (12.5gm) 250 ML BOTTLE IVPB ONE (16:35)
[2024-04-25] MEDS ORDERED: NITROGLYCERIN-D5W PMX 50 MG/250 ML BOTTLE IV ONE (16:35)
[2024-04-25] MEDS ORDERED: NEOSTIGMINE 1 MG/ML 10 ML VIAL ONE (16:35)
[2024-04-25] MEDS ORDERED: ROCURONIUM 10 MG/ML (5 ML VIAL) IV ONE (16:35)
[2024-04-25] MEDS ORDERED: fentaNYL (PF) 50 MCG/ML 2 ML AMP ONE (16:35)
[2024-04-25] MEDS ORDERED: HEPARIN SODIUM,PORCINE 10,000 UNIT/ML 1 ML VIAL ONE (16:35)
[2024-04-25] MEDS: IOPAMIDOL-370 100ML BTL INJ ONE (18:00)
[2024-04-25] MEDS: THROMBIN (BOVINE) 5,000 UNIT VIAL TOPICAL ONE (19:30)
[2024-04-26] MEDS ORDERED: ceFAZolin 1,000 MG VIAL ONE (23:59)
[2024-04-26] MEDS ORDERED: LACTATED RINGERS 1,000 ML BAG ONE (23:59)
[2024-04-26] MEDS ORDERED: SODIUM CHLORIDE 0.9% 100 ML BAG IV ONE (23:59)
[2024-04-26] MEDS ORDERED: INSULIN DETEMIR (LEVEMIR) 100 UNIT/ML SYR SQ ONE (23:59)
[2024-04-26] MEDS ORDERED: HEPARIN SOD,PORK IN 0.45% NACL PMX 25,000 UNIT/250 ML BAG IV ONE (23:59)
[2024-04-27] MEDS ORDERED: INSULIN ASPART (NovoLOG) 100 UNIT/ML VIAL SQ ONE (06:42)
[2024-04-27] MEDS ORDERED: LACTATED RINGERS 1,000 ML BAG ONE ×2 (17:00→23:59)
[2024-04-27] MEDS ORDERED: SUCCINYLCHOLINE CHLORIDE 200 MG/10 ML VIAL IV ONE (18:44)
[2024-04-27] MEDS ORDERED: fentaNYL (PF) 50 MCG/ML 2 ML AMP ONE (18:44)
[2024-04-27] MEDS ORDERED: PROPOFOL 10 MG/ML 20 ML VIAL IV ONE (18:44)
[2024-04-27] MEDS ORDERED: PHENYLEPHRINE 10 MG/ML VIAL ONE (18:44)
[2024-04-27] MEDS ORDERED: carvediloL 3.125 MG TAB ONE (22:27)
[2024-04-27] MEDS ORDERED: MORPHINE SULFATE 4 MG/ML SYRINGE ONE (22:30)
[2024-04-27] MEDS ORDERED: HEPARIN SODIUM 1,000 UN/ML (10ML VL) ONE (23:41)
[2024-04-27] MEDS ORDERED: INSULIN DETEMIR (LEVEMIR) 100 UNIT/ML SYR SQ ONE (23:59)
[2024-04-28] MEDS ORDERED: HEPARIN SOD,PORK IN 0.45% NACL 250 ML IV ONE ×2 (01:56→20:58)
[2024-04-28] MEDS ORDERED: MORPHINE SULFATE 4 MG/ML SYRINGE ONE ×2 (02:00→20:36)
[2024-04-28] MEDS ORDERED: HYDROcodone/APAP 5-325MG 1 EACH TAB ONE ×3 (04:54→18:31)
[2024-04-28] MEDS ORDERED: cloNIDine HCL 0.1 MG TAB ONE (05:07)
[2024-04-28] MEDS ORDERED: INSULIN ASPART (NovoLOG) 100 UNIT/ML VIAL SQ ONE ×4 (06:49→20:46)
[2024-04-28] MEDS ORDERED: PANTOPRAZOLE 40 MG TABLET PO ONE (09:18)
[2024-04-28] MEDS ORDERED: carvediloL 3.125 MG TAB ONE (09:18)
[2024-04-28] MEDS ORDERED: LOSARTAN 50 MG TAB ONE (09:18)
[2024-04-28] MEDS ORDERED: LACTATED RINGERS 1,000 ML BAG ONE (23:59)
[2024-04-28] MEDS ORDERED: INSULIN DETEMIR (LEVEMIR) 100 UNIT/ML SYR SQ ONE (23:59)
[2024-04-29] MEDS ORDERED: MORPHINE SULFATE 4 MG/ML SYRINGE ONE ×5 (04:42→23:52)
[2024-04-29] MEDS ORDERED: cloNIDine HCL 0.1 MG TAB ONE ×2 (06:39→18:27)
[2024-04-29] MEDS ORDERED: PANTOPRAZOLE 40 MG TABLET PO ONE (08:47)
[2024-04-29] MEDS ORDERED: HYDROcodone/APAP 5-325MG 1 EACH TAB ONE ×3 (08:47→19:09)
[2024-04-29] MEDS ORDERED: LOSARTAN 50 MG TAB ONE (08:48)
[2024-04-29] MEDS ORDERED: carvediloL 3.125 MG TAB ONE ×2 (08:48→21:56)
[2024-04-29] MEDS ORDERED: GLYCOPYRROLATE 0.2 MG/ML 2 ML VIAL ONE (11:05)
[2024-04-29] MEDS ORDERED: NEOSTIGMINE 1 MG/ML 10 ML VIAL ONE (11:05)
[2024-04-29] MEDS ORDERED: ceFAZolin 1 GM/50 ML BAG (PMX) ONE (11:05)
[2024-04-29] MEDS ORDERED: DEXTROSE 50% SYRINGE 50 ML IVP ONE (11:05)
[2024-04-29] MEDS ORDERED: SODIUM CHLORIDE 0.9% 250 ML BAG ONE (11:05)
[2024-04-29] MEDS ORDERED: PHENYLEPHRINE-0.9% NACL SYG 1,000 MCG/10 ML SYRINGE ONE (11:05)
[2024-04-29] MEDS ORDERED: SODIUM CHLORIDE 0.9% 1,000 ML BAG ONE (11:05)
[2024-04-29] MEDS ORDERED: ROCURONIUM 10 MG/ML (5 ML VIAL) IV ONE (11:05)
[2024-04-29] MEDS ORDERED: LIDOCAINE 1% INJ 10MG/ML (20 ML MDV) ONE (11:05)
[2024-04-29] MEDS ORDERED: ceFAZolin 1,000 MG VIAL ONE (11:05)
[2024-04-29] MEDS ORDERED: ONDANSETRON 4 MG/2 ML VIAL ONE (11:05)
[2024-04-29] MEDS ORDERED: PROPOFOL 10 MG/ML 20 ML VIAL IV ONE (11:05)
[2024-04-29] MEDS ORDERED: fentaNYL (PF) 50 MCG/ML 2 ML AMP ONE (11:05)
[2024-04-29] MEDS ORDERED: SUCCINYLCHOLINE CHLORIDE 200 MG/10 ML VIAL IV ONE (11:05)
[2024-04-29] MEDS ORDERED: LACTATED RINGERS 1,000 ML BAG ONE (11:05)
[2024-04-29] MEDS ORDERED: HYDROmorphone 0.5 MG/0.5 ML SYRINGE ONE ×4 (13:25→14:14)
[2024-04-29] MEDS ORDERED: HYDROmorphone 1 MG/ML 1 ML SYRINGE ONE ×3 (15:57→21:56)
[2024-04-29] MEDS ORDERED: INSULIN ASPART (NovoLOG) 100 UNIT/ML VIAL SQ ONE ×2 (18:21→21:59)
[2024-04-29] MEDS ORDERED: INSULIN DETEMIR (LEVEMIR) 100 UNIT/ML SYR SQ ONE (23:59)
[2024-04-30] MEDS ORDERED: HYDROmorphone 1 MG/ML 1 ML SYRINGE ONE ×3 (01:25→20:21)
[2024-04-30] MEDS ORDERED: HYDROcodone/APAP 5-325MG 1 EACH TAB ONE ×3 (01:25→12:54)
[2024-04-30] MEDS ORDERED: MORPHINE SULFATE 4 MG/ML SYRINGE ONE ×3 (06:59→17:08)
[2024-04-30] MEDS ORDERED: INSULIN ASPART (NovoLOG) 100 UNIT/ML VIAL SQ ONE ×4 (07:00→21:05)
[2024-04-30] MEDS ORDERED: LOSARTAN 50 MG TAB ONE (08:46)
[2024-04-30] MEDS ORDERED: carvediloL 3.125 MG TAB ONE ×2 (08:46→20:21)
[2024-04-30] MEDS ORDERED: PANTOPRAZOLE 40 MG TABLET PO ONE (08:46)
[2024-04-30] MEDS ORDERED: HEPARIN SODIUM,PORCINE 5,000 UNIT/ML 1 ML VIAL ONE (17:09)
[2024-04-30] MEDS ORDERED: INSULIN DETEMIR (LEVEMIR) 100 UNIT/ML SYR SQ ONE (23:59)
[2024-05-01] MEDS ORDERED: HYDROmorphone 1 MG/ML 1 ML SYRINGE ONE ×3 (00:33→13:37)
[2024-05-01] MEDS ORDERED: HYDROcodone/APAP 5-325MG 1 EACH TAB ONE ×3 (03:00→18:09)
[2024-05-01] MEDS ORDERED: INSULIN ASPART (NovoLOG) 100 UNIT/ML VIAL SQ ONE ×3 (05:46→18:10)
[2024-05-01] MEDS ORDERED: LOSARTAN 50 MG TAB ONE (09:11)
[2024-05-01] MEDS ORDERED: cloNIDine HCL 0.2 MG TAB ONE (09:11)
[2024-05-01] MEDS ORDERED: PANTOPRAZOLE 40 MG TABLET PO ONE (09:12)
[2024-05-01] MEDS ORDERED: HEPARIN SODIUM,PORCINE 5,000 UNIT/ML 1 ML VIAL ONE ×2 (09:12→18:11)
[2024-05-01] MEDS ORDERED: carvediloL 3.125 MG TAB ONE (09:12)
[2024-05-01] MEDS ORDERED: hydrALAZINE HCL 20 MG/ML 1 ML VIAL ONE (13:37)
[2024-05-01] MEDS ORDERED: INSULIN DETEMIR (LEVEMIR) 100 UNIT/ML SYR SQ ONE (23:59)
[2024-05-02] MEDS ORDERED: carvediloL 6.25 MG TAB ONE (09:28)
[2024-05-02] MEDS ORDERED: LOSARTAN 50 MG TAB ONE ×2 (09:28→09:29)
[2024-05-02] MEDS ORDERED: HYDROmorphone 1 MG/ML 1 ML SYRINGE ONE ×3 (09:28→15:31)
[2024-05-02] MEDS ORDERED: PANTOPRAZOLE 40 MG TABLET PO ONE (09:28)
[2024-05-02] MEDS ORDERED: HEPARIN SODIUM,PORCINE 5,000 UNIT/ML 1 ML VIAL ONE ×2 (09:28→16:52)
[2024-05-02] MEDS ORDERED: HYDROcodone/APAP 5-325MG 1 EACH TAB ONE ×2 (11:52→15:31)
[2024-05-02] MEDS ORDERED: ACETAMINOPHEN TAB 325 MG TAB ONE (11:53)
[2024-05-02] MEDS ORDERED: INSULIN ASPART (NovoLOG) 100 UNIT/ML VIAL SQ ONE ×2 (11:53→16:52)
[2024-05-02] MEDS ORDERED: hydrALAZINE HCL 50 MG TAB ONE ×2 (11:53→13:01)
[2024-05-02] MEDS ORDERED: INSULIN DETEMIR (LEVEMIR) 100 UNIT/ML SYR SQ ONE (23:59)
[2024-05-02] MEDS ORDERED: LACTATED RINGERS 1,000 ML BAG ONE (23:59)
[2024-05-03] MEDS ORDERED: HYDROcodone/APAP 5-325MG 1 EACH TAB ONE (09:15)
[2024-05-03] MEDS ORDERED: LOSARTAN 50 MG TAB ONE (09:15)
[2024-05-03] MEDS ORDERED: HEPARIN SODIUM,PORCINE 5,000 UNIT/ML 1 ML VIAL ONE ×2 (09:16→17:16)
[2024-05-03] MEDS ORDERED: hydrALAZINE HCL 50 MG TAB ONE ×3 (09:16→20:11)
[2024-05-03] MEDS ORDERED: PANTOPRAZOLE 40 MG TABLET PO ONE (09:16)
[2024-05-03] MEDS ORDERED: carvediloL 12.5 MG TAB ONE ×2 (09:16→20:11)
[2024-05-03] MEDS ORDERED: cloNIDine HCL 0.2 MG TAB ONE ×2 (12:09→20:11)
[2024-05-03] MEDS ORDERED: INSULIN ASPART (NovoLOG) 100 UNIT/ML VIAL SQ ONE ×3 (12:10→20:21)
[2024-05-03] MEDS ORDERED: HYDROmorphone 1 MG/ML 1 ML SYRINGE ONE ×2 (12:11→17:14)
[2024-05-03] MEDS ORDERED: INSULIN DETEMIR (LEVEMIR) 100 UNIT/ML SYR SQ ONE (23:59)
[2024-05-04] MEDS ORDERED: HYDROmorphone 1 MG/ML 1 ML SYRINGE ONE (00:47)
[2024-05-04] MEDS ORDERED: HEPARIN SODIUM,PORCINE 5,000 UNIT/ML 1 ML VIAL ONE ×2 (00:47→08:50)
[2024-05-04] MEDS ORDERED: LOSARTAN 50 MG TAB ONE ×2 (08:49→08:51)
[2024-05-04] MEDS ORDERED: cloNIDine HCL 0.2 MG TAB ONE ×3 (08:49→20:28)
[2024-05-04] MEDS ORDERED: carvediloL 12.5 MG TAB ONE ×2 (08:50→20:30)
[2024-05-04] MEDS ORDERED: PANTOPRAZOLE 40 MG TABLET PO ONE (08:50)
[2024-05-04] MEDS ORDERED: hydrALAZINE HCL 50 MG TAB ONE ×3 (08:50→20:29)
[2024-05-04] MEDS ORDERED: HYDROcodone/APAP 5-325MG 1 EACH TAB ONE ×2 (08:59→20:29)
[2024-05-04] MEDS ORDERED: INSULIN ASPART (NovoLOG) 100 UNIT/ML VIAL SQ ONE ×3 (12:26→20:30)
[2024-05-04] MEDS ORDERED: INSULIN DETEMIR (LEVEMIR) 100 UNIT/ML SYR SQ ONE (23:59)
[2024-05-05] MEDS ORDERED: HEPARIN SODIUM,PORCINE 5,000 UNIT/ML 1 ML VIAL ONE ×2 (00:24→08:14)
[2024-05-05] MEDS ORDERED: HYDROcodone/APAP 5-325MG 1 EACH TAB ONE ×2 (00:29→08:13)
[2024-05-05] MEDS ORDERED: HYDROmorphone 1 MG/ML 1 ML SYRINGE ONE ×2 (05:43→21:17)
[2024-05-05] MEDS ORDERED: PANTOPRAZOLE 40 MG TABLET PO ONE (08:11)
[2024-05-05] MEDS ORDERED: LACTULOSE 20 GM/30 ML CUP ONE ×3 (08:13→23:59)
[2024-05-05] MEDS ORDERED: LOSARTAN 50 MG TAB ONE (08:13)
[2024-05-05] MEDS ORDERED: cloNIDine HCL 0.2 MG TAB ONE ×3 (08:13→21:01)
[2024-05-05] MEDS ORDERED: hydrALAZINE HCL 50 MG TAB ONE ×3 (08:14→21:01)
[2024-05-05] MEDS ORDERED: carvediloL 12.5 MG TAB ONE ×2 (08:14→21:03)
[2024-05-05] MEDS ORDERED: INSULIN ASPART (NovoLOG) 100 UNIT/ML VIAL SQ ONE ×3 (12:21→21:03)
[2024-05-05] MEDS ORDERED: INSULIN DETEMIR (LEVEMIR) 100 UNIT/ML SYR SQ ONE (23:59)
[2024-05-06] MEDS ORDERED: cloNIDine HCL 0.2 MG TAB ONE ×2 (09:05→14:46)
[2024-05-06] MEDS ORDERED: PANTOPRAZOLE 40 MG TABLET PO ONE (09:06)
[2024-05-06] MEDS ORDERED: LACTULOSE 20 GM/30 ML CUP ONE (09:06)
[2024-05-06] MEDS ORDERED: hydrALAZINE HCL 50 MG TAB ONE ×2 (09:06→14:46)
[2024-05-06] MEDS ORDERED: carvediloL 12.5 MG TAB ONE (09:06)
[2024-05-06] MEDS ORDERED: LOSARTAN 50 MG TAB ONE (09:06)
[2024-05-06] MEDS ORDERED: HYDROmorphone 1 MG/ML 1 ML SYRINGE ONE ×2 (09:07→12:08)
[2024-05-06] MEDS ORDERED: HEPARIN SODIUM,PORCINE 5,000 UNIT/ML 1 ML VIAL ONE ×2 (09:07→14:46)
[2024-05-06] MEDS ORDERED: INSULIN ASPART (NovoLOG) 100 UNIT/ML VIAL SQ ONE ×2 (12:08→17:07)
--- NOTE | 2024-05-16 16:59 | CT ---
EXAMINATION TYPE: CT angio tho/abd W Run Off CT DLP: 1821 mGycm, Automated exposure control for dose reduction was used. DATE OF EXAM: 05/16/2024 4:08 PM COMPARISON: None CLINICAL INDICATION: Male, 58 years old with history of Bilat leg occlusions; [facility], TECHNIQUE: Multiple thin slice sub-millimeter images were obtained after administration of contrast. 3-D reconstructed images and maximum intensity projection images were obtained. CT angio tho/abd W R un Off CT Contrast: Contrast used: 100 cc of Isovue 370 Oral contrast used: None FINDINGS: Chronic appearing left upper lung DVT with thin web like septation. CTA Abdomen and pelvis: The abdominal aorta does not demonstrate aneurysmal dilatation. Atherosclero tic plaquing is identified within the abdominal aorta. The origins of the superior mesenteric artery , renal arteries, inferior mesenteric artery, and celiac axis are patent. The iliac vessels are norm al in morphology CTA Lower extremities: Right: There is occlusion of the superficial femoral artery graft and barrow artery extending from it s origin to the popliteal artery with reconstitution inferior to the popliteal artery. Evaluation of the posterior and anterior tibial arteries is somewhat limited due bolus timing from occlusion. Left: There is occlusion of the superficial femoral artery graft and barrow artery extending from its origin to the popliteal artery with reconstitution inferior to the popliteal artery. Evaluation of t he posterior and anterior tibial arteries is somewhat limited due bolus timing from occlusion. LOWER CHEST: No evidence of focal consolidation, pneumothorax or pleural effusion. LIVER: Unremarkable GALLBLADDER AND BILE DUCTS: Unremarkable. PANCREAS: Unremarkable. SPLEEN: Unremarkable. ADRENAL GLANDS: Unremarkable. KIDNEYS AND URETERS: No evidence of hydronephrosis or renal calculus. The ureters are unremarkable. PELVIS BLADDER: Unremarkable REPRODUCTIVE: Prostate is prominent in size measuring 4.3 cm in transverse dimension. ABDOMEN & PELVIS STOMACH AND BOWEL: No evidence of bowel obstruction. PERITONEUM: No evidence of pneumoperitoneum or free fluid. MUSCULOSKELETAL: No acute osseous abnormalities LYMPH NODES: No gross evidence for lymphadenopathy. SOFT TISSUE/ABDOMINAL WALL: Unremarkable IMPRESSION 1. 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 Patient was subsequently sent to the operating room from the e mergency department after the scan. 2. Chronic appearing left upper lung DVT with thin web like septation. 3. Borderline prostatomegaly. Correlate with PSA.
--- NOTE | 2024-05-25 17:21 | FL ---
EXAMINATION TYPE: FL guidance operating room DATE OF EXAM: 05/25/2024 Comparison: None Clinical History: 58-year-old male right leg runoff IN OR Findings: RIGHT LEG RUN OFF AFTER THROMBECTOMY IN OR FL TIME 3.30 MINS, DAP 8.6249 Gycm2 No images submitted.
--- NOTE | 2024-06-01 19:37 | CDI ---
Documentation Clarification Form Date: 06/01/2024 07:26:51 PM From: Peg Erickson Phone: Admit Date: 04/25/2024 03:00:00 PM Patient Name: Benny Ladd Visit Number: [id number] Discharge Date: 05/06/2024 06:02:00 PM ATTENTION: The Clinical Documentation Specialists (CDI) and [facility] Coding Staff appreciate your assistance in clarifying documentation. Please respond to the clarification below the line at the bottom and electronically sign. The CDI & [facility] Coding staff will review the response and follow-up if needed. Please note: Queries are made part of the Legal Health Record. If you have any questions, please contact the author of this message via ITS. Doctor/Provider: Leti Marino There is documentation of a wound critical limb ischemia with right foot ulcer per Progress Notes and ED Note. Additional specificity regarding the severity of the foot wound is requested. Patient history/risk factors: DMII w hypergly & PAD noncompliant w insulin, Hx fem/pop bypass w LLE amputations, HLD, HTN, homeless, former smoker, cocaine+ Clinical Indicators: Wound assessment: ulcer right foot on the sole Treatment: repeat fem/pop bypass then fasciotomy x4 then BKA Please clarify the severity of the foot wound: [ ] With fat layer exposed [ ] With necrosis of muscle [ x ] With necrosis of bone [ ] Other, Please specify [ ] Unable to determine (Template Last Revised: November 2020) MTDD
--- NOTE | 2024-06-17 15:25 | PN ---
PROGRESS NOTE At the time of my evaluation, Benny was seen in room #377. SUBJECTIVE: This patient has no complaints at this time, is simply trying to go to bed with no complaints of pain, nausea, vomiting, fevers, chills. OBJECTIVE: VITAL SIGNS: The patient is afebrile. 150/76, heart rate 63, 100% on room air. GENERAL: He is in no apparent distress. Noted his BKA is on the right. Otherwise, appears to be doing well. PERTINENT LABS: To review. No new images to review. ASSESSMENT AND PLAN: Status post below-knee amputation: Awaiting intermediate facility placement at this time. No new updates to the care plan. MMODL / IJN: [id number] /
--- NOTE | 2024-06-17 15:25 | PN ---
PROGRESS NOTE The patient was seen in room 377 at the time of my evaluation. SUBJECTIVE: Today, the patient has no new complaints and is awaiting placement after his below-knee amputation on the right. He is postop day #7. He denies fevers, chills, nausea, vomiting. He is tolerating his food well. He is waiting for physical therapy at the time of my evaluation. OBJECTIVE: VITAL SIGNS: Show the patient is afebrile, 151/75, heart rate is 76, 95% on room air. LAB WORK: Shows the patient has hemoglobin of 8.6 today, which is stable. His platelets are 681, which is stable. His white blood cell count is 9.9. His basic metabolic panel shows sodium 129, which is stable. His potassium is 5.2, his creatinine is 1.01. ASSESSMENT: 1. Right-sided below-knee amputation. Postop day 7. Continue pain control with narcotics p.r.n. including Dilaudid IV p.r.n. and [place] p.r.n. as well as gabapentin, Tylenol p.r.n. Continue his bowel regimen with lactulose. Continue working with PT/OT. Case Management is working on disposition, and is awaiting insurance authorization prior to discharge to [facility]. 2. Hypertension. 3. Hyperlipidemia. 4. Diabetes type 2. PLAN: For this is to continue his medications of losartan, hydralazine, and clonidine as well as his Levemir and aspart doses. His sugars are well controlled. MMODL / IJN: [id number] /
== END 2024-05-06 18:02 | disposition home or self-care (01) | DRG 240 ==
LOC: 2SICU 15:00
PROVIDERS: ADMIT Internal Medicine; ATTEND Internal Medicine
PROC: 04CK0ZZ Extirpation of Matter from Right Femoral Artery, Open Approach (ICD-10-PCS; 2024-04-25)
PROC: 04UK07Z Supplement Right Femoral Artery with Autologous Tissue Substitute, Open Approach (ICD-10-PCS; 2024-04-25)
PROC: 047 Lower Arteries, Dilation (ICD-10-PCS; 2024-04-25)
PROC: 0KNS0ZZ Release Right Lower Leg Muscle, Open Approach (ICD-10-PCS; 2024-04-28)
PROC: 0KNS0ZZ Release Right Lower Leg Muscle, Open Approach (ICD-10-PCS; 2024-04-28)
PROC: 0KNS0ZZ Release Right Lower Leg Muscle, Open Approach (ICD-10-PCS; 2024-04-28)
PROC: 0KNS0ZZ Release Right Lower Leg Muscle, Open Approach (ICD-10-PCS; 2024-04-28)
PROC: 30233N1 Transfusion of Nonautologous Red Blood Cells into Peripheral Vein, Percutaneous Approach (ICD-10-PCS; 2024-04-29)
PROC: 0Y6H0Z3 Detachment at Right Lower Leg, Low, Open Approach (ICD-10-PCS; principal; 2024-04-29 10:45)
DX: E11.51 Type 2 diabetes mellitus with diabetic peripheral angiopathy without gangrene (principal); D62 Acute posthemorrhagic anemia; T79.A21A Traumatic compartment syndrome of right lower extremity, initial encounter; Z59.00 Homelessness unspecified; Z59.02 Unsheltered homelessness; L97.414 Non-pressure chronic ulcer of right heel and midfoot with necrosis of bone; E11.649 Type 2 diabetes mellitus with hypoglycemia without coma; E11.621 Type 2 diabetes mellitus with foot ulcer; I10 Essential (primary) hypertension; J45.909 Unspecified asthma, uncomplicated; E11.65 Type 2 diabetes mellitus with hyperglycemia; I70.335 Atherosclerosis of unspecified type of bypass graft(s) of the right leg with ulceration of other part of foot; Z95.820 Peripheral vascular angioplasty status with implants and grafts; Z89.412 Acquired absence of left great toe; Z79.4 Long term (current) use of insulin; T38.3X6A Underdosing of insulin and oral hypoglycemic [antidiabetic] drugs, initial encounter; E78.5 Hyperlipidemia, unspecified; I25.10 Atherosclerotic heart disease of native coronary artery without angina pectoris; E87.5 Hyperkalemia; K59.00 Constipation, unspecified; Z95.5 Presence of coronary angioplasty implant and graft; Z91.198 Patient's noncompliance with other medical treatment and regimen for other reason; Z87.891 Personal history of nicotine dependence; Z88.6 Allergy status to analgesic agent
CPT/HCPCS: 36430; 71275; 75635; 80048; 80053; 83036; 83605; 85025; 85027; 85610; 85730; 86850; 86900; 86901; 94760; 96374; 99285

== ENCOUNTER 2024-05-24 19:07 | Inpatient (IN) | payer MEDICARE, OTHER ==
[2024-05-24] MEDS ORDERED: VANCOMYCIN IV PER PHARMACY 1 EACH MISC MISCELLANE PRN (19:20)
--- NOTE | 2024-05-24 19:29 | ED ---
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 Patient does remember exactly when. Patient states the areas become very malodorous and staff told him it looked infected and they wanted to come in and be admitted and evaluated have the wound debrided. Patient denies any other symptoms at this time - Related Data Previous Rx's Medication Instructions Recorded Apixaban [Eliquis] 5 mg PO BID #60 tab 07/15/22 Clopidogrel [Plavix] 75 mg PO DAILY 30 Days #30 tab 07/15/22 DULoxetine HCL [Cymbalta] 20 mg PO DAILY 30 Days #30 cap 07/15/22 INSULIN ASPART (NovoLOG) [NovoLOG 8 unit SQ AC-TID #30 day 07/15/22 (formulary)] Insulin Glargine [Lantus Vial] 20 unit SQ HS #30 day 07/15/22 Pantoprazole [Protonix] 40 mg PO BID 30 Days #60 tab 07/15/22 amLODIPine [Norvasc] 10 mg PO DAILY #30 tab 07/15/22 carvediloL [Coreg] 3.125 mg PO BID-W/MEALS #60 tab 07/15/22 levETIRAcetam [Keppra] 500 mg PO Q12HR #60 tab 07/15/22 lisinopriL [Zestril] 20 mg PO DAILY #30 tab 07/15/22 polyethylene glycoL 3350 [Miralax] 17 gm PO DAILY PRN #30 packet 07/15/22 Cyclobenzaprine [Flexeril] 5 - 10 mg PO TID PRN #30 tablet 03/27/24 Allergies Allergy/AdvReac Type Severity Reaction Status Date / Time atorvastatin [From Lipitor] Allergy Swelling Verified 03/23/24 19:16 ibuprofen Allergy Swelling Verified 03/23/24 19:16 pregabalin [From Lyrica] Allergy Swelling Verified 03/23/24 19:16 Review of Systems ROS Statement: Those systems with pertinent positive or pertinent negative responses have been documented in the HPI. ROS Other: All systems not noted in ROS Statement are negative. Past Medical History Past Medical History: Atrial Fibrillation, Diabetes Mellitus, Deep Vein Thrombosis (DVT), Hyperlipidemia, Hypertension, Myocardial Infarction ([place]), Pneumonia, Vascular Disorder Additional Past Medical History / Comment(s): uvitis glaucoma, PVD, dvt to lower left leg Last Myocardial Infarction Date:: unknown History of Any Multi-Drug Resistant Organisms: MRSA Date of last positivie culture/infection: 06/30/20 MDRO Source:: Left Leg Past Surgical History: Hernia Repair, Orthopedic Surgery Additional Past Surgical History / Comment(s): aortgram w/ runnoff, eye surg implant, bilateral knee SX, left vein stripping in 02/2020 x2, vein graft and toe amputation rt bka 2023 Past Anesthesia/Blood Transfusion Reactions: No Reported Reaction Additional Past Anesthesia/Blood Transfusion Reaction / Comment(s): no hx blood transfusion Past Psychological History: No Psychological Hx Reported Smoking Status: Former smoker Past Alcohol Use History: Rare Past Drug Use History: Marijuana - Past Family History Mother History Unknown: Yes Brother(s) Family Medical History: COPD Additional Family Medical History / Comment(s): passed from COPD Father Family Medical History: Myocardial Infarction ([place]) Additional Family Medical History / Comment(s): passed from [place] General Exam - General Exam Comments Initial Comments: GENERAL: Patient is well-developed and well-nourished. Patient is nontoxic and well- hydrated and is in mild distress. ENT: Neck is soft and supple. No significant lymphadenopathy is noted. Oropharynx is clear. Moist mucous membranes. Neck has full range of motion without eliciting any pain. EYES: The sclera were anicteric and conjunctiva were pink and moist. Extraocular movements were intact and pupils were equal round and reactive to light. Eyelids were unremarkable. PULMONARY: Unlabored respirations. Good breath sounds bilaterally. No audible rales rhonchi or wheezing was noted. CARDIOVASCULAR: There is a regular rate and rhythm without any murmurs gallops or rubs. ABDOMEN: Soft and nontender with normal bowel sounds. SKIN: Skin is clear with no lesions or rashes and otherwise unremarkable. NEUROLOGIC: Patient is alert and oriented x3. Cranial nerves II through XII are grossly intact. Motor and sensory are also intact. Normal speech, volume and content. Symmetrical smile. MUSCULOSKELETAL: The area of the BKA on the right has necrotic tissue and very malodorous and the does appear to be a little pus in the center of the wound. LYMPHATICS: No significant lymphadenopathy is noted PSYCHIATRIC: Normal psychiatric evaluation. Limitations: no limitations Course Vital Signs 05/24/24 19:14 Temperature 99.4 F Pulse Rate 82 Respiratory 18 Rate Blood Pressure 169/80 O2 Sat by Pulse 96 Oximetry Medical Decision Making - Medical Decision Making EKG is interpreted by myself. EKG shows sinus rhythm at 71 bpm VA interval is 156 QRS is 90 QT interval 382 QTc is 404. Patient's EKG does show Q waves inferiorly Was pt. sent in by a medical professional or institution (JAKY De La Fuente, [employer], urgent care, hospital, or penitentiary...) When possible be specific @ -Patient was sent in by the [facility] Did you speak to anyone other than the patient for history (EMS, parent, family, police, friend...)? What history was obtained from this source @ -No Did you review nursing and triage notes (agree or disagree)? Why? @ -I reviewed and agree with nursing and triage notes Were old charts reviewed (outside hosp., previous admission, EMS record, old EKG, old radiological studies, urgent care reports/EKG's, penitentiary records)? Report findings @ -No old charts were reviewed Differential Diagnosis? @ -Dehiscence of the wound, cellulitis, infected wound, necrotic wound this is not an all-inclusive list EKG interpreted by me (3pts min.). @ -As above X-rays interpreted by me (1pt min.). @ -None done CT interpreted by me (1pt min.). @ -None done U/S interpreted by me (1pt. min.). @ -None done What testing was considered but not performed or refused? (CT, X-rays, U/S, labs)? Why? @ -None What meds were considered but not given or refused? Why? @ -None Did you discuss the management of the patient with other professionals (professionals i.e. JAKY De La Fuente, [employer], lab, RT, psych nurse, social studies department chair, research agricultural engineer, teacher, peace officer, case work aide)? Give summary @ -Patient will be admitted to [facility] I spoke with the customer operations representative. Was smoking cessation discussed for >3mins.? @ -No Was critical care preformed (if so, how long)? @ -No Were there social determinants of health that impacted care today? How? (Homelessness, low income, unemployed, alcoholism, drug addiction, transportation, low edu. Level, literacy, decrease access to med. care, detention, rehab)? @ -No Was there de-escalation of care discussed even if they declined (Discuss DNR or withdrawal of care, Hospice)? DNR status @ -No What co-morbidities impacted this encounter? (DM, HTN, Smoking, COPD, CAD, Cancer, CVA, ARF, Chemo, Hep., AIDS, mental health diagnosis, sleep apnea, morbid obesity)? @ -None Was patient admitted / discharged? Hospital course, mention meds given and route, prescriptions, significant lab abnormalities, going to OR and other pertinent info. @ -Patient was started on Zosyn and vancomycin patient will be admitted to [facility] and consult will be placed to infectious disease as well as vascular Undiagnosed new problem with uncertain prognosis? @ -No Drug Therapy requiring intensive monitoring for toxicity (Heparin, Nitro, Ins ulin, Cardizem)? @ -No Were any procedures done? @ -No Diagnosis/symptom? @ -Infected wound Acute, or Chronic, or Acute on Chronic? @ -Acute Uncomplicated (without systemic symptoms) or Complicated (systemic symptoms)? @ -Complicated Side effects of treatment? @ -No Exacerbation, Progression, or Severe Exacerbation? @ -No Poses a threat to life or bodily function? How? (Chest pain, [place], [place], pneumonia, PE, COPD, DKA, ARF, appy, cholecystitis, CVA, Diverticulitis, Homicidal, Suicidal, threat to staff... and all critical care pts) @ -Yes this could lead to sepsis and endorgan dysfunction Diagnosis/symptom? @ -Renal insufficiency Acute, or Chronic, or Acute on Chronic? @ -Acute Uncomplicated (without systemic symptoms) or Complicated (systemic symptoms)? @ -Complicated Side effects of treatment? @ -None Exacerbation, Progression, or Severe Exacerbation] @ -No Poses a threat to life or bodily function? @ -Yes this could lead to electrolyte abnormalities and arrhythmias. Diagnosis/symptom? @ -Anemia Acute, or Chronic, or Acute on Chronic? @ -Acute Uncomplicated (without systemic symptoms) or Complicated (systemic symptoms)? @ -Complicated Side effects of treatment? @ -None Exacerbation, Progression, or Severe Exacerbation] @ -No Poses a threat to life or bodily function? @ -No Diagnosis/symptom? @ -Hyperkalemia Acute, or Chronic, or Acute on Chronic? @ -Acute Uncomplicated (without systemic symptoms) or Complicated (systemic symptoms)? @ -Complicated Side effects of treatment? @ -None Exacerbation, Progression, or Severe Exacerbation] @ -No Poses a threat to life or bodily function? @ -No Diagnosis/symptom? @ -Hyponatremia Acute, or Chronic, or Acute on Chronic? @ -Acute Uncomplicated (without systemic symptoms) or Complicated (systemic symptoms)? @ -Uncomplicated Side effects of treatment? @ -None Exacerbation, Progression, or Severe Exacerbation] @ -No Poses a threat to life or bodily function? @ -No - Lab Data Result diagrams: 05/24/24 19:29 05/24/24 19:29 Lab Results 05/24/24 05/24/24 05/24/24 Range/Units 19:29 19:29 19:29 WBC 10.7 H (3.8-10.6) k/uL RBC 3.24 L (4.30-5.90) m/uL Hgb 9.1 L D (13.0-17.5) gm/dL Hct 28.1 L (39.0-53.0) % MCV 86.7 (80.0-100.0) fL MCH 27.9 (25.0-35.0) pg MCHC 32.2 (31.0-37.0) g/dL RDW 14.0 (11.5-15.5) % Plt Count 612 H D (150-450) k/uL MPV 7.3 Neutrophils % 82 % Lymphocytes % 10 % Monocytes % 6 % Eosinophils % 2 % Basophils % 0 % Neutrophils # 8.8 H (1.3-7.7) k/uL Lymphocytes # 1.0 (1.0-4.8) k/uL Monocytes # 0.6 (0-1.0) k/uL Eosinophils # 0.2 (0-0.7) k/uL Basophils # 0.0 (0-0.2) k/uL Hypochromasia Moderate PT 11.0 (10.0-12.5) sec INR 1.0 (<1.2) APTT 24.8 (22.0-30.0) sec Sodium 130 L (137-145) mmol/L Potassium 5.6 H (3.5-5.1) mmol/L Chloride 97 L (98-107) mmol/L Carbon Dioxide 23 (22-30) mmol/L Anion Gap 10 mmol/L BUN 36 H (9-20) mg/dL Creatinine 1.83 H (0.66-1.25) mg/dL Est GFR (CKD-EPI)AfAm 45 (>60 ml/min/1.73 sqM) Est GFR (CKD-EPI)NonAf 39 (>60 ml/min/1.73 sqM) Glucose 206 H (74-99) mg/dL Plasma Lactic Acid Todd (0.7-2.0) mmol/L Calcium 8.9 (8.4-10.2) mg/dL Total Bilirubin 0.4 (0.2-1.3) mg/dL AST 52 (17-59) U/L ALT 44 (4-49) U/L Alkaline Phosphatase 137 H (38-126) U/L Total Protein 6.7 (6.3-8.2) g/dL Albumin 3.1 L (3.5-5.0) g/dL 05/24/24 Range/Units 19:29 WBC (3.8-10.6) k/uL RBC (4.30-5.90) m/uL Hgb (13.0-17.5) gm/dL Hct (39.0-53.0) % MCV (80.0-100.0) fL MCH (25.0-35.0) pg MCHC (31.0-37.0) g/dL RDW (11.5-15.5) % Plt Count (150-450) k/uL MPV Neutrophils % % Lymphocytes % % Monocytes % % Eosinophils % % Basophils % % Neutrophils # (1.3-7.7) k/uL Lymphocytes # (1.0-4.8) k/uL Monocytes # (0-1.0) k/uL Eosinophils # (0-0.7) k/uL Basophils # (0-0.2) k/uL Hypochromasia PT (10.0-12.5) sec INR (<1.2) APTT (22.0-30.0) sec Sodium (137-145) mmol/L Potassium (3.5-5.1) mmol/L Chloride (98-107) mmol/L Carbon Dioxide (22-30) mmol/L Anion Gap mmol/L BUN (9-20) mg/dL Creatinine (0.66-1.25) mg/dL Est GFR (CKD-EPI)AfAm (>60 ml/min/1.73 sqM) Est GFR (CKD-EPI)NonAf (>60 ml/min/1.73 sqM) Glucose (74-99) mg/dL Plasma Lactic Acid Todd 1.6 (0.7-2.0) mmol/L Calcium (8.4-10.2) mg/dL Total Bilirubin (0.2-1.3) mg/dL AST (17-59) U/L ALT (4-49) U/L Alkaline Phosphatase (38-126) U/L Total Protein (6.3-8.2) g/dL Albumin (3.5-5.0) g/dL Disposition Clinical Impression: Surgical site infection, Renal insufficiency, Hyponatremia, Hyperkalemia, Anemia Disposition: ADMITTED IP TO THIS HOSP Referrals: Jade Schroeder DO [Primary Care Provider] - 1-2 days Time of Disposition: 20:34
[2024-05-24 19:50] LABS: Basophils % (A) 0 %; Eosinophils # (A) 0.2 k/uL (0-0.7); Eosinophils % (A) 2 %; HCT 28.1 % (39.0-53.0); Hypochromasia Moderate; Lymphocytes % (A) 10 %; MCH 27.9 pg (25.0-35.0); MCHC 32.2 g/dL (31.0-37.0); MCV 86.7 fL (80.0-100.0); Mean Platelet Volume 7.3; Monocytes # (A) 0.6 k/uL (0-1.0); Monocytes % (A) 6 %; Neutrophils # (A) 8.8 k/uL (1.3-7.7); Neutrophils % (A) 82 %; RBC 3.24 m/uL (4.30-5.90); WBC 10.7 k/uL (3.8-10.6)
[2024-05-24] MEDS: SODIUM CHLORIDE 0.9% 500 ML 500 ML IV SCH (19:55)
[2024-05-24] MEDS: PIPERACILLIN-TAZOBACTAM 3.375 GM in SODIUM CHLORIDE 0.9% 100 ML IVPB STA (19:57)
[2024-05-24 20:01] LABS: ALT 44 U/L (4-49); AST 52 U/L (17-59); African American GFR (CKD) 45 (>60 ml/min/1.73 sqM); Albumin 3.1 g/dL (3.5-5.0); Alkaline Phosphatase 137 U/L (38-126); Anion Gap 10 mmol/L; Blood Urea Nitrogen 36 mg/dL (9-20); Calcium 8.9 mg/dL (8.4-10.2); Carbon Dioxide 23 mmol/L (22-30); Chloride 97 mmol/L (98-107); Glucose 206 mg/dL (74-99); Non-African American GFR(CKD) 39 (>60 ml/min/1.73 sqM); Potassium 5.6 mmol/L (3.5-5.1); Sodium 130 mmol/L (137-145); Total Bilirubin 0.4 mg/dL (0.2-1.3); Total Protein 6.7 g/dL (6.3-8.2)
[2024-05-24 20:02] LABS: Partial Thromboplastin Time 24.8 sec (22.0-30.0)
[2024-05-24 20:10] LABS: HGB 9.1 gm/dL (13.0-17.5); Platelet Count 612 k/uL (150-450)
[2024-05-24] MEDS: VANCOMYCIN 1,250 MG in SODIUM CHLORIDE 0.9% 250 ML IVPB STA (20:36)
[2024-05-25] MEDS: PIPERACILLIN-TAZOBACTAM 3.375 GM in SODIUM CHLORIDE 0.9% 100 ML IVPB SCH (00:55)
[2024-05-25] MEDS: SODIUM CHLORIDE 0.9% 1,000 ML IV ONE (00:56)
[2024-05-25] MEDS: HYDROmorphone 0.5 MG/0.5 ML SYRINGE IVP PRN ×2 (01:59→18:38)
[2024-05-25 05:57] LABS: Glucose,Whole Blood 408 mg/dL (70-110)
[2024-05-25] MEDS: INSULIN ASPART (NovoLOG) 100 UNIT/ML VIAL SQ SCH ×3 (06:19→12:20)
[2024-05-25] MEDS: HYDROcodone/APAP 5-325MG 1 EACH TAB PO PRN (06:23)
[2024-05-25] MEDS: INSULIN ASPART (NovoLOG) 100 UNIT/ML VIAL SQ ONE (06:24)
[2024-05-25] MEDS: INSULIN DETEMIR (LEVEMIR) 100 UNIT/ML SYR SQ STA (06:35)
[2024-05-25] MEDS ORDERED: ACETAMINOPHEN TAB 325 MG TAB PO PRN (10:20)
--- NOTE | 2024-05-25 10:27 | P.HPIM ---
History of Present Illness Male is admitted for infected wound. Patient had a recent BKA which got infected on the right side. Patient had this amputation about a month ago patient appears to be on doxycycline and Bactrim at home. Patient also found to be in acute renal failure with creatinine going up to 1.8 and serum potassium about 5.6 yesterday repeat labs are not available at this time. Patient is complaining of pain in the infected site area. REVIEW OF SYSTEMS: All other systems are negative except those mentioned in the HPI PHYSICAL EXAMINATION: GENERAL: The patient is alert and oriented x3, not in any acute distress. Well developed, well nourished. HEENT: Pupils are round and equally reacting to light. EOMI. No scleral icterus. No conjunctival pallor. Normocephalic, atraumatic. No pharyngeal erythema. No thyromegaly. CARDIOVASCULAR: S1 and S2 present. No murmurs, rubs, or gallops. PULMONARY: Chest is clear to auscultation, no wheezing or crackles. ABDOMEN: Soft, nontender, nondistended, normoactive bowel sounds. No palpable organomegaly. MUSCULOSKELETAL: No joint swelling or deformity. EXTREMITIES: No cyanosis, clubbing, or pedal edema. NEUROLOGICAL: Gross neurological examination did not reveal any focal deficits. SKIN: Right BKA stump is red and is infected Assessment and plan -Infected surgical site area status post BKA about a month ago: Patient on vancomycin and Zosyn at this time awaiting deep and superficial cultures. Patient is getting Dilaudid and [place] for pain. -Hyperkalemia: Secondary to losartan and Bactrim patient is receiving IV fluids which is expected to bring his potassium down will await the repeat labs before we treat hyperkalemia -Hypertension patient will be resumed on Coreg and hydralazine hold off on losartan and clonidine for now patient blood pressure is in 150s systolic -Acute renal failure: Probably prerenal azotemia along with the possibility of acute tubular necrosis continue with IV fluids this can be secondary to Bactrim and losartan which are being held -Type 2 diabetes mellitus uncontrolled elevated blood sugars patient will be resumed on home regimen we will cut down the long-acting insulin from 20 units to 15 units if he is n.p.o. tonight as patient will undergo debridement tomorrow. Patient will be continued on 3 times daily AC insulin along with sliding scale -Peripheral neuropathy we will cut down the dose of gabapentin because of acute renal failure DVT prophylaxis: Patient will be started on DVT prophylaxis tomorrow after the debridement Past Medical History Past Medical History: Atrial Fibrillation, Diabetes Mellitus, Deep Vein Thrombosis (DVT), Hyperlipidemia, Hypertension, Myocardial Infarction ([place]), Pneumonia, Vascular Disorder Additional Past Medical History / Comment(s): uvitis glaucoma, PVD, dvt to lower left leg Last Myocardial Infarction Date:: unknown History of Any Multi-Drug Resistant Organisms: MRSA Date of last positivie culture/infection: 06/30/20 MDRO Source:: Left Leg Past Surgical History: Hernia Repair, Orthopedic Surgery Additional Past Surgical History / Comment(s): aortgram w/ runnoff, eye surg implant, bilateral knee SX, left vein stripping in 02/2020 x2, vein graft and toe amputation rt bka 2023 Past Anesthesia/Blood Transfusion Reactions: No Reported Reaction Additional Past Anesthesia/Blood Transfusion Reaction / Comment(s): no hx blood transfusion Past Psychological History: No Psychological Hx Reported Additional Psychological History / Comment(s): Pt resides with an adult. He is independent other than he does not drive, his friends take him to [employer]. Smoking Status: Former smoker Past Alcohol Use History: Rare Additional Past Alcohol Use History / Comment(s): quit smoking at 26,started at age 17,<1ppd Past Drug Use History: None Reported - Past Family History Mother History Unknown: Yes Brother(s) Family Medical History: COPD Additional Family Medical History / Comment(s): passed from COPD Father Family Medical History: Myocardial Infarction ([place]) Additional Family Medical History / Comment(s): passed from [place] Medications and Allergies Home Medications Medication Instructions Recorded Confirmed Type Acetaminophen Tab [Tylenol] 650 mg PO Q4H PRN 05/25/24 05/25/24 History Aspirin EC [Ecotrin Low Dose] 81 mg PO DAILY 05/25/24 05/25/24 History Doxycycline [Vibramycin] 100 mg PO BID 05/25/24 05/25/24 History Gabapentin [Neurontin] 300 mg PO Q8H 05/25/24 05/25/24 History HYDROcodone/APAP 7.5-325MG [[place] 1 tab PO Q4H PRN 05/25/24 05/25/24 History 7.5-325] INSULIN LISPRO (HumaLOG) [humaLOG] See Protocol SQ TID-W/MEALS 05/25/24 05/25/24 History Insulin Glargine,Hum.rec.anlog 20 units SQ HS 05/25/24 05/25/24 History [Lantus Solostar Pen] Insulin Lispro [humaLOG Kwikpen] 5 unit SQ TID-W/MEALS 05/25/24 05/25/24 History Losartan Potassium [Cozaar] 100 mg PO DAILY 05/25/24 05/25/24 History Sennosides-Docusate Sodium 1 tab PO BID 05/25/24 05/25/24 History [Senokot-S] Sulfamethox-Tmp 800-160Mg [Bactrim 1 tab PO Q12HR 05/25/24 05/25/24 History DS 800-160 mg] carvediloL [Coreg] 12.5 mg PO BID 05/25/24 05/25/24 History cloNIDine HCL [Catapres] 0.2 mg PO TID 05/25/24 05/25/24 History hydrALAZINE HCL [Apresoline] 100 mg PO TID 05/25/24 05/25/24 History Allergies Allergy/AdvReac Type Severity Reaction Status Date / Time atorvastatin [From Lipitor] Allergy Swelling Verified 05/25/24 08:19 ibuprofen Allergy Swelling Verified 05/25/24 08:19 pregabalin [From Lyrica] Allergy Swelling Verified 05/25/24 08:19 Physical Exam Vitals: Vital Signs Temp Pulse Pulse Resp BP BP Pulse Ox 05/25/24 07:32 98.3 F 66 16 157/77 99 05/25/24 02:31 98.5 F 66 16 163/79 98 05/24/24 22:20 99.5 F 76 15 162/73 96 05/24/24 22:03 78 18 164/75 95 05/24/24 19:14 99.4 F 82 18 169/80 96 Intake and Output 05/24/24 05/25/24 05/25/24 22:59 06:59 14:59 Intake Total 150 Output Total 625 Balance 150 -625 Intake: Oral 150 Output: Urine 625 Other: # Voids 5 # Bowel Movements 0 Weight 63.503 kg 63.503 kg Results CBC & Chem 7: 05/24/24 19:29 05/24/24 19:29 Labs: Abnormal Lab Results - Last 24 Hours (Table) 05/24/24 05/24/24 05/25/24 Range/Units 19:29 19:29 05:55 WBC 10.7 H (3.8-10.6) k/uL RBC 3.24 L (4.30-5.90) m/uL Hgb 9.1 L D (13.0-17.5) gm/dL Hct 28.1 L (39.0-53.0) % Plt Count 612 H D (150-450) k/uL Neutrophils # 8.8 H (1.3-7.7) k/uL Sodium 130 L (137-145) mmol/L Potassium 5.6 H (3.5-5.1) mmol/L Chloride 97 L (98-107) mmol/L BUN 36 H (9-20) mg/dL Creatinine 1.83 H (0.66-1.25) mg/dL Glucose 206 H (74-99) mg/dL POC Glucose (mg/dL) 408 H (70-110) mg/dL Alkaline Phosphatase 137 H (38-126) U/L Albumin 3.1 L (3.5-5.0) g/dL Thrombosis Risk Factor Assmnt - Choose All That Apply Any of the Below Risk Factors Present?: Yes Each Factor Represents 1 point: Age 41-60 years, Obesity (BMI >25) Other Risk Factors: Yes Each Risk Factor Represents 2 Points: Patient confined to bed Each Risk Factor Represents 3 Points: History of DVT/PE Other congenital or acquired thrombophilia - If yes, enter type in comment: No Thrombosis Risk Factor Assessment Total Risk Factor Score: 7 Thrombosis Risk Factor Assessment Level: High Risk
--- NOTE | 2024-05-25 11:10 | P.GSCN ---
History of Present Illness Consult date: 05/25/24 Reason for Consult: Infected surgical site Requesting physician: Sandeep Singh History of present illness: This is a pleasant 58-year-old -Monegasque male well-known to vascular surgical services with history of peripheral arterial disease and recent right lower extremity fasciotomy and below the knee amputation done last month who presented to the emergency department with complaints of concern for infection. He was seen by Dr. Dennison in the office on 05/19/2024 with recommendations of close monitoring and wound care. Apparently patient's leg became malodorous and home care recommended he come in for further evaluation. Patient denied any fevers, chills or bodyaches. Denies any shortness of breath or chest pain. Does state surgical site is painful. He was started on IV antibiotics in the emergency department. Review of Systems A 14 point review systems was completed all pertinent positives and negatives as stated in the HPI. Past Medical History Past Medical History: Atrial Fibrillation, Diabetes Mellitus, Deep Vein Th rombosis (DVT), Hyperlipidemia, Hypertension, Myocardial Infarction ([place]), Pneumonia, Vascular Disorder Additional Past Medical History / Comment(s): uvitis glaucoma, PVD, dvt to lower left leg Last Myocardial Infarction Date:: unknown History of Any Multi-Drug Resistant Organisms: MRSA Year Discovered:: 06/30/20 MDRO Source:: Left Leg Past Surgical History: Hernia Repair, Orthopedic Surgery Additional Past Surgical History / Comment(s): aortgram w/ runnoff, eye surg implant, bilateral knee SX, left vein stripping in 02/2020 x2, vein graft and toe amputation rt bka 2023 Past Anesthesia/Blood Transfusion Reactions: No Reported Reaction Additional Past Anesthesia/Blood Transfusion Reaction / Comm: no hx blood transfusion Past Psychological History: No Psychological Hx Reported Additional Psychological History / Comment(s): Pt resides with an adult. He is independent other than he does not drive, his friends take him to [employer]. Smoking Status: Former smoker Past Alcohol Use History: Rare Additional Past Alcohol Use History / Comment(s): quit smoking at 26,started at age 17,<1ppd Past Drug Use History: None Reported - Past Family History Mother History Unknown: Yes Brother(s) Family Medical History: COPD Additional Family Medical History / Comment(s): passed from COPD Father Family Medical History: Myocardial Infarction ([place]) Additional Family Medical History / Comment(s): passed from [place] Medications and Allergies Home Medications Medication Instructions Recorded Confirmed Type Acetaminophen Tab [Tylenol] 650 mg PO Q4H PRN 05/25/24 05/25/24 History Aspirin EC [Ecotrin Low Dose] 81 mg PO DAILY 05/25/24 05/25/24 History Doxycycline [Vibramycin] 100 mg PO BID 05/25/24 05/25/24 History Gabapentin [Neurontin] 300 mg PO Q8H 05/25/24 05/25/24 History HYDROcodone/APAP 7.5-325MG [[place] 1 tab PO Q4H PRN 05/25/24 05/25/24 History 7.5-325] INSULIN LISPRO (HumaLOG) [humaLOG] See Protocol SQ TID-W/MEALS 05/25/24 05/25/24 History Insulin Glargine,Hum.rec.anlog 20 units SQ HS 05/25/24 05/25/24 History [Lantus Solostar Pen] Insulin Lispro [humaLOG Kwikpen] 5 unit SQ TID-W/MEALS 05/25/24 05/25/24 History Losartan Potassium [Cozaar] 100 mg PO DAILY 05/25/24 05/25/24 History Sennosides-Docusate Sodium 1 tab PO BID 05/25/24 05/25/24 History [Senokot-S] Sulfamethox-Tmp 800-160Mg [Bactrim 1 tab PO Q12HR 05/25/24 05/25/24 History DS 800-160 mg] carvediloL [Coreg] 12.5 mg PO BID 05/25/24 05/25/24 History cloNIDine HCL [Catapres] 0.2 mg PO TID 05/25/24 05/25/24 History hydrALAZINE HCL [Apresoline] 100 mg PO TID 05/25/24 05/25/24 History Allergies Allergy/AdvReac Type Severity Reaction Status Date / Time atorvastatin [From Lipitor] Allergy Swelling Verified 05/25/24 08:19 ibuprofen Allergy Swelling Verified 05/25/24 08:19 pregabalin [From Lyrica] Allergy Swelling Verified 05/25/24 08:19 Surgical - Exam Vital Signs Temp Pulse Resp BP Pulse Ox 99.4 F 82 18 169/80 96 05/24/24 19:14 05/24/24 19:14 05/24/24 19:14 05/24/24 19:14 05/24/24 19:14 General appearance: The patient is alert, oriented, appears in no acute distress. HET: Head is normocephalic and atraumatic. Pupils are equal and reactive. Neck: Supple. Heart: Regular. Lungs: Equal expansion, normal respiratory effort. Abdomen: Soft, nontender, nondistended. Extremities: Right BKA surgical site dehiscence with visible necrotic muscle. Left medial incision healing. Left foot with great toe previous amputation. Neurological: No focal deficits. Strength and sensation are grossly intact. Results - Labs 05/24/24 19:29 05/24/24 19:29 Abnormal Lab Results - Last 24 Hours (Table) 05/24/24 05/24/24 05/25/24 Range/Units 19:29 19:29 05:55 WBC 10.7 H (3.8-10.6) k/uL RBC 3.24 L (4.30-5.90) m/uL Hgb 9.1 L D (13.0-17.5) gm/dL Hct 28.1 L (39.0-53.0) % Plt Count 612 H D (150-450) k/uL Neutrophils # 8.8 H (1.3-7.7) k/uL Sodium 130 L (137-145) mmol/L Potassium 5.6 H (3.5-5.1) mmol/L Chloride 97 L (98-107) mmol/L BUN 36 H (9-20) mg/dL Creatinine 1.83 H (0.66-1.25) mg/dL Glucose 206 H (74-99) mg/dL POC Glucose (mg/dL) 408 H (70-110) mg/dL Alkaline Phosphatase 137 H (38-126) U/L Albumin 3.1 L (3.5-5.0) g/dL Diabetes panel 05/24/24 Range/Units 19:29 Sodium 130 L (137-145) mmol/L Potassium 5.6 H (3.5-5.1) mmol/L Chloride 97 L (98-107) mmol/L Carbon Dioxide 23 (22-30) mmol/L BUN 36 H (9-20) mg/dL Creatinine 1.83 H (0.66-1.25) mg/dL Glucose 206 H (74-99) mg/dL Calcium 8.9 (8.4-10.2) mg/dL AST 52 (17-59) U/L ALT 44 (4-49) U/L Alkaline Phosphatase 137 H (38-126) U/L Total Protein 6.7 (6.3-8.2) g/dL Albumin 3.1 L (3.5-5.0) g/dL Calcium panel 05/24/24 Range/Units 19:29 Calcium 8.9 (8.4-10.2) mg/dL Albumin 3.1 L (3.5-5.0) g/dL Pituitary panel 05/24/24 Range/Units 19:29 Sodium 130 L (137-145) mmol/L Potassium 5.6 H (3.5-5.1) mmol/L Chloride 97 L (98-107) mmol/L Carbon Dioxide 23 (22-30) mmol/L BUN 36 H (9-20) mg/dL Creatinine 1.83 H (0.66-1.25) mg/dL Glucose 206 H (74-99) mg/dL Calcium 8.9 (8.4-10.2) mg/dL Adrenal panel 05/24/24 Range/Units 19:29 Sodium 130 L (137-145) mmol/L Potassium 5.6 H (3.5-5.1) mmol/L Chloride 97 L (98-107) mmol/L Carbon Dioxide 23 (22-30) mmol/L BUN 36 H (9-20) mg/dL Creatinine 1.83 H (0.66-1.25) mg/dL Glucose 206 H (74-99) mg/dL Calcium 8.9 (8.4-10.2) mg/dL Total Bilirubin 0.4 (0.2-1.3) mg/dL AST 52 (17-59) U/L ALT 44 (4-49) U/L Alkaline Phosphatase 137 H (38-126) U/L Total Protein 6.7 (6.3-8.2) g/dL Albumin 3.1 L (3.5-5.0) g/dL Assessment and Plan Assessment: 1. Right below the knee amputation surgical site dehiscence, with necrotic muscle involvement 2. Recent right lower extremity acute ischemia status post fasciotomy and below the knee amputation 3. History of peripheral arterial disease 4. History of Atrial fibrillation 5. Diabetes mellitus Plan: 1. N.p.o. after midnight 2. Will plan for surgical debridement and washout of right BKA with likelihood patient may need [id number] amputation due to necrotic muscle. This was discussed with patient he is in agreements to proposed plan. 3. Antibiotics per recommendation from ID 4. Rest of medical management per primary medical team Thank you for this consultation, we will continue to follow. The impression and plan of care has been dictated as directed. Dr. Hess I performed a history and examination of this patient, discussed the same with the dictator. I agree with the dictator's note ,documented as a scribe. Any additional findings or plans will be noted.
[2024-05-25 11:51] LABS: Basophils % (A) 0 %; Eosinophils # (A) 0.1 k/uL (0-0.7); Eosinophils % (A) 1 %; HCT 25.1 % (39.0-53.0); HGB 7.9 gm/dL (13.0-17.5); Hypochromasia Marked; Lymphocytes # (A) 1.2 k/uL (1.0-4.8); Lymphocytes % (A) 12 %; MCH 27.9 pg (25.0-35.0); MCHC 31.3 g/dL (31.0-37.0); MCV 89.1 fL (80.0-100.0); Mean Platelet Volume 7.5; Monocytes # (A) 0.6 k/uL (0-1.0); Monocytes % (A) 6 %; Neutrophils % (A) 80 %; Platelet Count 628 k/uL (150-450); RBC 2.82 m/uL (4.30-5.90); RDW 14.1 % (11.5-15.5); WBC 10.1 k/uL (3.8-10.6)
[2024-05-25 11:52] LABS: Glucose,Whole Blood 352 mg/dL (70-110)
[2024-05-25 12:09] LABS: African American GFR (CKD) 54 (>60 ml/min/1.73 sqM); Anion Gap 7 mmol/L; Blood Urea Nitrogen 33 mg/dL (9-20); Calcium 8.3 mg/dL (8.4-10.2); Carbon Dioxide 23 mmol/L (22-30); Chloride 99 mmol/L (98-107); Glucose 272 mg/dL (74-99); Non-African American GFR(CKD) 47 (>60 ml/min/1.73 sqM); Potassium 4.7 mmol/L (3.5-5.1); Sodium 129 mmol/L (137-145)
[2024-05-25] MEDS: GABAPENTIN 100 MG CAP PO SCH (12:20)
[2024-05-25] MEDS: SODIUM CHLORIDE 0.9% 1,000 ML IV SCH (12:21)
[2024-05-25 14:55] VITALS: BMI 25.6
[2024-05-25 16:57] LABS: Glucose,Whole Blood 316 mg/dL (70-110)
[2024-05-25] MEDS: hydrALAZINE HCL 50 MG TAB PO SCH (17:00)
[2024-05-25] MEDS: carvediloL 12.5 MG TAB PO SCH (17:00)
[2024-05-25] MEDS ORDERED: NON FORMULARY DRUG (Insulin Glargine,Hum.Rec.Anlog [Lantus Solostar Pen] 100 UNIT/ML Insul SQ SCH (21:00)
[2024-05-25 21:17] LABS: Glucose,Whole Blood 308 mg/dL (70-110)
[2024-05-25] MEDS: VANCOMYCIN 1,250 MG in SODIUM CHLORIDE 0.9% 250 ML IVPB SCH (22:17)
[2024-05-25] MEDS: CEFEPIME 2 GM in SODIUM CHLORIDE 0.9% 100 ML IVPB SCH (22:17)
[2024-05-25] MEDS: INSULIN DETEMIR (LEVEMIR) 100 UNIT/ML SYR SQ SCH (22:17)
[2024-05-26] MEDS: hydrALAZINE HCL 20 MG/ML 1 ML VIAL IVP PRN (04:27)
[2024-05-26 05:45] LABS: Basophils % (A) 0 %; Eosinophils # (A) 0.2 k/uL (0-0.7); Eosinophils % (A) 2 %; HCT 24.6 % (39.0-53.0); HGB 7.6 gm/dL (13.0-17.5); Hypochromasia Marked; Lymphocytes # (A) 1.3 k/uL (1.0-4.8); Lymphocytes % (A) 11 %; MCH 27.5 pg (25.0-35.0); MCV 88.6 fL (80.0-100.0); Mean Platelet Volume 7.1; Monocytes # (A) 0.9 k/uL (0-1.0); Monocytes % (A) 7 %; Neutrophils # (A) 9.3 k/uL (1.3-7.7); Neutrophils % (A) 78 %; Platelet Count 648 k/uL (150-450); RBC 2.77 m/uL (4.30-5.90); RDW 13.9 % (11.5-15.5); WBC 11.9 k/uL (3.8-10.6)
[2024-05-26 05:49] LABS: African American GFR (CKD) >90 (>60 ml/min/1.73 sqM); Anion Gap 8 mmol/L; Blood Urea Nitrogen 21 mg/dL (9-20); Calcium 8.5 mg/dL (8.4-10.2); Carbon Dioxide 21 mmol/L (22-30); Chloride 100 mmol/L (98-107); Glucose 242 mg/dL (74-99); Non-African American GFR(CKD) 87 (>60 ml/min/1.73 sqM); Potassium 5.6 mmol/L (3.5-5.1); Sodium 129 mmol/L (137-145)
[2024-05-26 06:08] LABS: Glucose,Whole Blood 255 mg/dL (70-110)
[2024-05-26] MEDS: carvediloL 12.5 MG TAB PO SCH (06:20)
[2024-05-26] MEDS: HYDROmorphone 1 MG/ML 1 ML SYRINGE IVP PRN (06:21)
--- NOTE | 2024-05-26 07:16 | P.CONS ---
History of Present Illness - Reason for Consult Consult date: 05/25/24 Infected surgical site Requesting physician: Sandeep Singh - Chief Complaint Right BKA stump wound and drainage x days - History of Present Illness Patient is a 58-year-old -Mosotho male with a past medical history significant for diabetes mellitus hypertension hyperlipidemia atrial fibrillation coronary artery disease/[place] patient recently did have right lower extremity fasciotomy and below the knee potation done about a month ago, patient now presenting to the hospital with right BKA wound dehiscence and foul-smelling drainage presenting symptom has been getting worse for the last few days and has been previously evaluated for the same condition by his surgeon on 05/19/2024 patient denies high-grade fever or any chills has been complaining of pain to th e right BKA stump to be sharp moderate intensity without any radiation did have a nonhealing wound some foul-smelling drainage patient on presentation to the hospital was running low-grade fever of 99.4 degrees for night patient was not tachycardic hypotensive or hypoxic he did have white count of 10.7 with a left shift BUN and creatinine has been mildly elevated liver enzymes are normal local culture obtained to currently pending as well as blood culture patient was started on vancomycin and cefepime infectious disease was consulted for further management of antibiotic therapy Review of Systems Positive point and negatives has been mentioned in the HPI, complete review of systems was performed and all other systems are negative Past Medical History Past Medical History: Atrial Fibrillation, Diabetes Mellitus, Deep Vein Thrombosis (DVT), Hyperlipidemia, Hypertension, Myocardial Infarction ([place]), Pneumonia, Vascular Disorder Additional Past Medical History / Comment(s): uvitis glaucoma, PVD, dvt to lower left leg Last Myocardial Infarction Date:: unknown History of Any Multi-Drug Resistant Organisms: MRSA Year Discovered:: 06/30/20 MDRO Source:: Left Leg Past Surgical History: Hernia Repair, Orthopedic Surgery Additional Past Surgical History / Comment(s): aortgram w/ runnoff, eye surg implant, bilateral knee SX, left vein stripping in 02/2020 x2, vein graft and toe amputation rt bka 2023 Past Anesthesia/Blood Transfusion Reactions: No Reported Reaction Additional Past Anesthesia/Blood Transfusion Reaction / Comm: no hx blood transfusion Past Psychological History: No Psychological Hx Reported Additional Psychological History / Comment(s): Pt resides with an adult. He is independent other than he does not drive, his friends take him to [employer]. Smoking Status: Former smoker Past Alcohol Use History: Rare Additional Past Alcohol Use History / Comment(s): quit smoking at 26,started at age 17,<1ppd Past Drug Use History: None Reported - Past Family History Mother History Unknown: Yes Brother(s) Family Medical History: COPD Additional Family Medical History / Comment(s): passed from COPD Father Family Medical History: Myocardial Infarction ([place]) Additional Family Medical History / Comment(s): passed from [place] Medications and Allergies Home Medications Medication Instructions Recorded Confirmed Type Acetaminophen Tab [Tylenol] 650 mg PO Q4H PRN 05/25/24 05/25/24 History Aspirin EC [Ecotrin Low Dose] 81 mg PO DAILY 05/25/24 05/25/24 History Doxycycline [Vibramycin] 100 mg PO BID 05/25/24 05/25/24 History Gabapentin [Neurontin] 300 mg PO Q8H 05/25/24 05/25/24 History HYDROcodone/APAP 7.5-325MG [[place] 1 tab PO Q4H PRN 05/25/24 05/25/24 History 7.5-325] INSULIN LISPRO (HumaLOG) [humaLOG] See Protocol SQ TID-W/MEALS 05/25/24 05/25/24 History Insulin Glargine,Hum.rec.anlog 20 units SQ HS 05/25/24 05/25/24 History [Lantus Solostar Pen] Insulin Lispro [humaLOG Kwikpen] 5 unit SQ TID-W/MEALS 05/25/24 05/25/24 History Losartan Potassium [Cozaar] 100 mg PO DAILY 05/25/24 05/25/24 History Sennosides-Docusate Sodium 1 tab PO BID 05/25/24 05/25/24 History [Senokot-S] Sulfamethox-Tmp 800-160Mg [Bactrim 1 tab PO Q12HR 05/25/24 05/25/24 History DS 800-160 mg] carvediloL [Coreg] 12.5 mg PO BID 05/25/24 05/25/24 History cloNIDine HCL [Catapres] 0.2 mg PO TID 05/25/24 05/25/24 History hydrALAZINE HCL [Apresoline] 100 mg PO TID 05/25/24 05/25/24 History Allergies Allergy/AdvReac Type Severity Reaction Status Date / Time atorvastatin [From Lipitor] Allergy Swelling Verified 05/25/24 08:19 ibuprofen Allergy Swelling Verified 05/25/24 08:19 pregabalin [From Lyrica] Allergy Swelling Verified 05/25/24 08:19 Physical Exam Vitals: Vital Signs Temp Pulse Pulse Resp BP BP Pulse Ox 05/25/24 07:32 98.3 F 66 16 157/77 99 05/25/24 02:31 98.5 F 66 16 163/79 98 05/24/24 22:20 99.5 F 76 15 162/73 96 05/24/24 22:03 78 18 164/75 95 05/24/24 19:14 99.4 F 82 18 169/80 96 Intake and Output 05/24/24 05/25/24 05/25/24 22:59 06:59 14:59 Intake Total 150 Output Total 625 Balance 150 -625 Intake: Oral 150 Output: Urine 625 Other: # Voids 5 # Bowel Movements 0 Weight 63.503 kg 63.503 kg GENERAL DESCRIPTION: Middle-aged male lying in bed, no distress. No tachypnea or accessory muscle of respiration use. HEENT: Shows Pallor , no scleral icterus. Oral mucous membrane is dry. No pharyngeal erythema or thrush NECK: Trachea central, no thyromegaly. LUNGS: Unlabored breathing. Clear to auscultation anteriorly. No wheeze or crackle. HEART: S1, S2, regular rate and rhythm. No loud murmur ABDOMEN: Soft, no tenderness , guarding or rigidity, no organomegaly EXTREMITIES: Right BKA stump wound has been dressed by the vascular surgeon,Right BKA surgical site dehiscence with visible necrotic muscle. Left medial incision healing. Per surgical note SKIN: No rash, no masses palpable. NEUROLOGICAL: The patient is awake, alert, oriented x3, mood and affect normal. Results CBC & Chem 7: 05/26/24 04:32 05/26/24 04:32 Labs: Abnormal Lab Results - Last 24 Hours (Table) 05/24/24 05/24/24 05/25/24 Range/Units 19:29 19:29 05:55 WBC 10.7 H (3.8-10.6) k/uL RBC 3.24 L (4.30-5.90) m/uL Hgb 9.1 L D (13.0-17.5) gm/dL Hct 28.1 L (39.0-53.0) % Plt Count 612 H D (150-450) k/uL Neutrophils # 8.8 H (1.3-7.7) k/uL Sodium 130 L (137-145) mmol/L Potassium 5.6 H (3.5-5.1) mmol/L Chloride 97 L (98-107) mmol/L BUN 36 H (9-20) mg/dL Creatinine 1.83 H (0.66-1.25) mg/dL Glucose 206 H (74-99) mg/dL POC Glucose (mg/dL) 408 H (70-110) mg/dL Alkaline Phosphatase 137 H (38-126) U/L Albumin 3.1 L (3.5-5.0) g/dL Microbiology - Last 24 Hours (Table) 05/24/24 19:41 Gram Stain - Preliminary Leg - Right Assessment and Plan (1) Surgical site infection Current Visit: Yes Status: Acute Code(s): T81.49XA - INFECTION FOLLOWING A PROCEDURE, OTHER SURGICAL SITE, INIT SNOMED Code(s): 76960343 Plan: 1patient presented to hospital with increasing pain nonhealing wound to the right BKA stump with drainage concerning for surgical site infection will need to cover for the gram-positive skin rose as well as gram-negative pathogen. 2await surgical debridement and deep culture. 3patient did have mild insufficiency and creatinine are monitored closely 4-vancomycin pharmacy to dose target trough of 15 while watching kidney function and Vanco trough closely and cefepime which should provide adequate empiric antibiotic coverage We will follow on clinical condition and cultures to further adjust medication if needed Thank you for this consultation we will follow the patient along with you Dictation was produced using [employer] dictation software. please excuse any grammatical, word or spelling errors. Time with Patient: Greater than 30
[2024-05-26 11:32] LABS: Glucose,Whole Blood 154 mg/dL (70-110)
[2024-05-26] MEDS: IV FLUID CONTINUATION 1,000 ML IV ONE ×2 (12:01)
[2024-05-26] MEDS: IV FLUID CONTINUATION 300 ML IV ONE (12:09)
[2024-05-26] MEDS: ONDANSETRON 4 MG/2 ML VIAL IVP PRN (12:26)
[2024-05-26] MEDS: ALBUTEROL NEBULIZED 2.5 MG/3 ML INHALATION STA (12:39)
[2024-05-26] MEDS ORDERED: PROPOFOL 10 MG/ML 20 ML VIAL IV ONE (12:51)
[2024-05-26] MEDS ORDERED: NEOSTIGMINE 1 MG/ML 10 ML VIAL ONE (12:51)
[2024-05-26] MEDS ORDERED: fentaNYL (PF) 50 MCG/ML 2 ML AMP ONE (12:51)
[2024-05-26] MEDS ORDERED: GLYCOPYRROLATE 0.2 MG/ML 2 ML VIAL ONE (12:51)
[2024-05-26] MEDS ORDERED: ePHEDrine 50 MG/ML 1 ML VIAL ONE (12:51)
[2024-05-26] MEDS ORDERED: ROPIVACAINE 5 MG/ML 30 ML VIAL ONE (12:51)
[2024-05-26] MEDS ORDERED: ROCURONIUM 10 MG/ML (5 ML VIAL) IV ONE (12:51)
--- NOTE | 2024-05-26 12:52 | P.ANPRN ---
Procedure Note - Anesthesia - Nerve Block Performed Right Popliteal Single Time Out Performed: Yes Date of Procedure: 05/26/24 Procedure Start Time: 12:30 Procedure Stop Time: 12:35 Location of Patient: Phase I Indication: Acute Post-Operative Pain, Analgesia, Dx/Pain Location (Right knee pain ), Requested by Surgeon Sedation Type: Awake Preparation: Sterile Prep Position: Supine Catheter: None Needle Types: Pajunk Needle Gauge: 21 Ultrasound used to visualize needle placement: Yes Ultrasound used to observe medication spread: Yes Injectate: 0.5% Ropivacaine (see comment for volume) (20ml) Blood Aspirated: No Pain Paresthesia on Injection Noted: No Resistance on Injection: Normal Image Stored and Saved: Yes Events: Uneventful and Well Tolerated
--- NOTE | 2024-05-26 14:30 | P.OP ---
Date of Procedure: 05/26/24 Preoperative Diagnosis: Irreversible ischemia left below the knee amputation. Postoperative Diagnosis: Same. Procedure(s) Performed: Right [id number] amputation. Implants: None. Anesthesia: GETA Surgeon: Stephen Dennison Estimated Blood Loss (ml): 100 Pathology: none sent Condition: stable Disposition: no change Indications for Procedure: Patient is a 58-year-old male with a longstanding history of diabetes mellitus, tobacco use and some degree of noncompliance. He is status post surgical revascularization of the right lower extremity. He had recently presented with nonhealing wound of the right foot and workup demonstrated the patient not to be a revascularization candidate due to severe atherosclerotic disease at the calf and foot level and the patient underwent a right below the knee amputation with the understanding that there was a possibility that this would not heal and would require [id number] amputation. It was felt however that if the patient's wound would heal he would do much better in the long run with a BKA as opposed to an AKA. Unfortunately while the skin and subcutaneous tissues survived the muscles went on to necrosis. Patient now requires [id number] amputation. Description of Procedure: Patient was brought the op room placed in the supine position administered general endotracheal anesthesia administered by the department of anesthesiology. Patient's right lower extremity was sterilely prepped and draped in the usual manner. His antibiotic regimen was continued. [place] incision was made and the incision was deepened through the subcutaneous tissues. Hemostasis was achieved using electrocautery. The incision was deepened through the muscle. The previously performed bypass graft was transected. This was chronically thrombosed the neurovascular bundle was identified dissected free of investing tissues and clamped and transected. Periosteal elevator was utilized to mobilize the periosteum off the femur and utilizing a power saw the femur was transected. The remaining soft tissues were transected utilizing other cautery and the specimen was sent to the department of pathology. Bleeding points were controlled with electrocautery or suture ligature where appropriate. The sciatic nerve was identified mobilized as far proximally as possible ligated and transected. The vascular structures were ligated with Vicryl suture. The wound was irrigated. Hemostasis was judged to be adequate. The muscular tissues appeared pink and healthy. The wound was irrigated. Fascia was reapproximated with 2-0 Vicryl suture. Skin edges were reapproximated with skin jason and appropriate dressing was applied. Patient tolerated the procedure well and was taken to the recovery area in satisfactory and stable condition.
[2024-05-26 14:54] LABS: Glucose,Whole Blood 254 mg/dL (70-110)
[2024-05-26] MEDS: ONDANSETRON 4 MG/2 ML VIAL IVP ONE (16:06)
[2024-05-26] MEDS: CEFEPIME 2 GM in SODIUM CHLORIDE 0.9% 100 ML IVPB SCH (16:17)
[2024-05-26] MEDS: cloNIDine HCL 0.2 MG TAB PO SCH (16:17)
[2024-05-26] MEDS: VANCOMYCIN 1,250 MG in SODIUM CHLORIDE 0.9% 250 ML IVPB SCH (16:17)
[2024-05-26 16:22] LABS: Glucose,Whole Blood 175 mg/dL (70-110)
[2024-05-26] MEDS: LACTATED RINGERS 1,000 ML IV SCH ×2 (16:44→16:49)
[2024-05-26 18:43] LABS: HCT 31.5 % (39.0-53.0); Hypochromasia Moderate; MCHC 30.9 g/dL (31.0-37.0); MCV 87.3 fL (80.0-100.0); Mean Platelet Volume 7.3; Platelet Count 592 k/uL (150-450); RBC 3.61 m/uL (4.30-5.90); RDW 13.9 % (11.5-15.5); WBC 10.1 k/uL (3.8-10.6)
[2024-05-26 18:44] LABS: HGB 9.7 gm/dL (13.0-17.5)
[2024-05-26] MEDS: hydrALAZINE HCL 20 MG/ML 1 ML VIAL IVP STA (18:51)
[2024-05-26] MEDS: DOXYCYCLINE 100 MG CAP PO SCH (21:01)
[2024-05-26] MEDS: SENNOSIDES-DOCUSATE SODIUM 1 EACH TAB PO SCH (21:01)
[2024-05-26] MEDS: HYDROcodone/APAP 7.5-325MG 1 EACH TAB PO PRN (21:03)
[2024-05-26 21:09] LABS: Glucose,Whole Blood 98 mg/dL (70-110)
[2024-05-27] MEDS: hydrALAZINE HCL 20 MG/ML 1 ML VIAL IVP STA (02:31)
[2024-05-27] MEDS: amLODIPine 10 MG TAB PO STA (02:33)
--- NOTE | 2024-05-27 05:06 | P.PN ---
Subjective Progress Note Date: 05/26/24 This is a 58-year-old male who is admitted for infected wound. Patient had a recent BKA which got infected on the right side. Patient had this amputation about a month ago patient appears to be on doxycycline and Bactrim at home. Patient also found to be in acute renal failure with creatinine going up to 1.8 and serum potassium about 5.6 yesterday repeat labs are not available at this time. Patient is complaining of pain in the infected site area. 05/26/2024 Patient is seen in follow-up this morning scheduled to undergo debridement and possible AKA on the right lower extremity with vascular surgery Dr. Dennison today. Currently n.p.o. and will await surgical report. Patient's blood pressures have been uncontrolled and elevated and home medications being reviewed and resumed. Sodium continues to be low with kidney function slightly improved and potassium mildly elevated. Recommend low potassium diet and will follow-up with repeat labs. Review of systems: Constitutional: No reports of fatigue, fever, or chills Cardiovascular: No reports of chest pain or palpitations Respiratory: No reports of shortness of breath or cough GI: No reports of nausea, vomiting, or diarrhea : No reports of dysuria or retention Neurovascular: reports of generalized weakness continued right lower extremity pain All medications have been reviewed PHYSICAL EXAMINATION: GENERAL: The patient is alert and oriented x3, not in any acute distress. Well developed, well nourished. HEENT: Pupils are round and equally reacting to light. EOMI. No scleral icterus. No conjunctival pallor. Normocephalic, atraumatic. No pharyngeal erythema. No thyromegaly. CARDIOVASCULAR: S1 and S2 present. No murmurs, rubs, or gallops. PULMONARY: Chest is clear to auscultation, no wheezing or crackles. ABDOMEN: Soft, nontender, nondistended, normoactive bowel sounds. No palpable organomegaly. MUSCULOSKELETAL: No joint swelling or deformity. EXTREMITIES: No cyanosis, clubbing, or pedal edema. NEUROLOGICAL: Gross neurological examination did not reveal any focal deficits. SKIN: Right BKA stump is red with significant eschar noted and drainage that appears infected Assessment: -Infected surgical site area status post BKA about a month ago: Patient on vancomycin and Zosyn at this time awaiting deep and superficial cultures. Scheduled to undergo debridement and/or possible AKA today 05/26/2024 -Hyperkalemia: Secondary to losartan and Bactrim, recommend low potassium diet and will follow-up with repeat labs -Hypertension, uncontrolled. Coreg and hydralazine resumed and other blood pressure medications being resumed per vascular surgery -Acute renal failure: Probably prerenal azotemia along with the possibility of acute tubular necrosis continue with IV fluids this can be secondary to Bactrim and losartan -Type 2 diabetes mellitus uncontrolled elevated blood sugars. Patient will be resumed on home regimen and will adjust insulins accordingly. -Peripheral neuropathy, we will cut down the dose of gabapentin because of acute renal failure -GI prophylaxis, Protonix -DVT prophylaxis: Patient will be started on DVT prophylaxis post debridement once cleared by vascular to resume -Full code The impression and plan of care has been dictated by Maty Bedoya, Nurse Practitioner as directed. Dr. Louis MD I have performed a history and examination and MDM of this patient, discussed the same with the dictator, and agree with the dictator's assessment and plan as written ,documented as a scribe. Based on total visit time, I have performed more than 50% of the visit. Objective - Vital Signs Vital signs: Vital Signs Temp 98.5 F 05/26/24 07:12 Pulse 84 05/26/24 07:12 Resp 17 05/26/24 07:12 BP 184/80 05/26/24 07:12 Pulse Ox 97 05/26/24 07:12 FiO2 Intake & Output 05/25/24 05/26/24 05/26/24 18:59 06:59 18:59 Intake Total 1300 Output Total 350 200 700 Balance 950 -200 -700 Weight 63.503 kg Intake: Intake, IV Titration 1300 Amount Cefepime 2 gm In Sodium 100 Chloride 0.9% 100 ml @ 25 mls/hr IVPB Q12HR [facility] Rx #:[id number] Piperacillin-Tazobactam 3 100 .375 gm In Sodium Chloride 0.9% 100 ml @ 25 mls/hr IVPB Q8HR [facility] Rx# :[id number] Sodium Chloride 0.9% 1, 1100 000 ml @ 100 mls/hr IV . Q10H [facility] Rx#:[id number] Output: Urine 350 200 700 Other: Voiding Method Urinal Urinal - Labs CBC & Chem 7: 05/26/24 18:02 05/26/24 04:32 Labs: Abnormal Lab Results - Last 24 Hours (Table) 05/25/24 05/25/24 05/25/24 Range/Units 10:23 10:23 11:51 WBC (3.8-10.6) k/uL RBC 2.82 L (4.30-5.90) m/uL Hgb 7.9 L (13.0-17.5) gm/dL Hct 25.1 L (39.0-53.0) % Plt Count 628 H (150-450) k/uL Neutrophils # 8.0 H (1.3-7.7) k/uL Sodium 129 L (137-145) mmol/L Potassium (3.5-5.1) mmol/L Carbon Dioxide (22-30) mmol/L BUN 33 H (9-20) mg/dL Creatinine 1.58 H (0.66-1.25) mg/dL Glucose 272 H (74-99) mg/dL POC Glucose (mg/dL) 352 H (70-110) mg/dL Calcium 8.3 L (8.4-10.2) mg/dL 05/25/24 05/25/24 05/26/24 Range/Units 16:56 21:16 04:32 WBC 11.9 H (3.8-10.6) k/uL RBC 2.77 L (4.30-5.90) m/uL Hgb 7.6 L (13.0-17.5) gm/dL Hct 24.6 L (39.0-53.0) % Plt Count 648 H (150-450) k/uL Neutrophils # 9.3 H (1.3-7.7) k/uL Sodium (137-145) mmol/L Potassium (3.5-5.1) mmol/L Carbon Dioxide (22-30) mmol/L BUN (9-20) mg/dL Creatinine (0.66-1.25) mg/dL Glucose (74-99) mg/dL POC Glucose (mg/dL) 316 H 308 H (70-110) mg/dL Calcium (8.4-10.2) mg/dL 05/26/24 05/26/24 Range/Units 04:32 06:07 WBC (3.8-10.6) k/uL RBC (4.30-5.90) m/uL Hgb (13.0-17.5) gm/dL Hct (39.0-53.0) % Plt Count (150-450) k/uL Neutrophils # (1.3-7.7) k/uL Sodium 129 L (137-145) mmol/L Potassium 5.6 H (3.5-5.1) mmol/L Carbon Dioxide 21 L (22-30) mmol/L BUN 21 H (9-20) mg/dL Creatinine (0.66-1.25) mg/dL Glucose 242 H (74-99) mg/dL POC Glucose (mg/dL) 255 H (70-110) mg/dL Calcium (8.4-10.2) mg/dL Microbiology - Last 24 Hours (Table) 05/24/24 19:29 Blood Culture - Preliminary Blood 05/24/24 19:29 Blood Culture - Preliminary Blood 05/24/24 19:41 Gram Stain - Preliminary Leg - Right Wound Culture - Preliminary Enterobacter cloacae Complex Klebsiella pneumoniae Proteus mirabilis
[2024-05-27 06:19] LABS: Glucose,Whole Blood 178 mg/dL (70-110)
[2024-05-27] MEDS ORDERED: HYDROmorphone 0.5 MG/0.5 ML SYRINGE IVP PRN (07:00)
[2024-05-27 09:09] LABS: HGB 9.2 g/dL (13.0-17.0); MCH 27.7 pg (27.0-32.0); MCHC 31.7 g/dL (32.0-37.0); MCV 87.3 FL (80.0-97.0); Mean Platelet Volume 9.6 FL (9.5-12.2); NRBC Per 100 WBC 0 X 10*3/uL (0.00-0.01); Platelet Count 602 X 10*3/uL (140-440); RBC 3.32 X 10*6/uL (4.40-5.60); RDW 14.4 % (11.5-14.5); WBC 12.52 X 10*3/uL (4.50-10.00)
[2024-05-27 09:20] LABS: ALT 27 U/L (10-49); AST 19 U/L (14-35); Albumin 2.9 g/dL (3.8-4.9); Albumin/Globulin Ratio 0.85 Ratio (1.60-3.17); Alkaline Phosphatase 117 U/L (41-126); BUN/Creat Ratio 16.22 Ratio (12.00-20.00); Blood Urea Nitrogen 14.6 mg/dL (9.0-27.0); Calcium 8.2 mg/dL (8.7-10.3); Carbon Dioxide 19.7 mmol/L (21.6-31.8); Chloride 99 mmol/L (96-109); Globulin 3.4 g/dL (1.6-3.3); Glucose 169 mg/dL (70-110); Magnesium 1.9 mg/dL (1.5-2.4); Potassium 5.6 mmol/L (3.5-5.5); Sodium 132 mmol/L (135-145); Total Bilirubin 0.4 mg/dL (0.3-1.2); Total Protein 6.3 g/dL (6.2-8.2)
[2024-05-27] MEDS: ASPIRIN 81 MG PO SCH (10:26)
[2024-05-27] MEDS: LOSARTAN 50 MG TAB PO SCH (10:27)
[2024-05-27] MEDS: SODIUM ZIRCONIUM CYCLOSILICATE 10 GM PACKET PO ONE (10:37)
--- NOTE | 2024-05-27 10:58 | P.PN ---
Subjective Progress Note Date: 05/27/24 Principal diagnosis: Irreversible ischemia right BKA Patient is seen and examined today as a follow-up. He is postop day #1 right qjkqr-qzg-mekf amputation. Patient states pain is well-controlled. AKA stump wrapped with dressing and David wrap clean dry and intact. Repeat hemoglobin post surgery yesterday was 9.7, today 9.2. Patient is afebrile. Objective - Vital Signs Vital signs: Vital Signs Temp 98.2 F 05/27/24 02:00 Pulse 80 05/27/24 02:00 Resp 21 05/27/24 02:00 BP 147/62 05/27/24 04:34 Pulse Ox 98 05/27/24 02:00 FiO2 Intake & Output 05/26/24 05/27/24 05/27/24 18:59 06:59 18:59 Intake Total 1960 Output Total 800 Balance 1160 Weight 63.503 kg Intake: IV 800 Intake, IV Titration 850 Amount Cefepime 2 gm In Sodium 200 Chloride 0.9% 100 ml @ 25 mls/hr IVPB Q8HR [facility] Rx# :[id number] Sodium Chloride 0.9% 1, 400 000 ml @ 100 mls/hr IV . Q10H [facility] Rx#:[id number] Vancomycin 1,250 mg In 250 Sodium Chloride 0.9% 250 ml @ 125 mls/hr IVPB Q16H [facility] Rx#:[id number] Blood Product 310 Rc As-1 Unit 310 [id number] Output: Urine 700 Estimated Blood Loss 100 Other: Voiding Method Urinal Urinal - Exam General appearance: The patient is alert, oriented, appears in no acute distress. HET: Head is normocephalic and atraumatic. e. Neck: Supple. Heart: Regular. Lungs: Equal expansion, normal respiratory effort. Abdomen: Soft, nondistended. Extremities: Right eqwnc-qrj-iurb amputation stump with dressing clean dry and intact and David wrap. Left foot with previous great toe amputation. Neurological: No focal deficits. - Labs CBC & Chem 7: 05/27/24 05:42 05/27/24 05:48 Labs: Abnormal Lab Results - Last 24 Hours (Table) 05/25/24 05/26/24 05/26/24 Range/Units 09:23 11:30 14:45 RBC (4.30-5.90) m/uL Hgb (13.0-17.5) gm/dL Hct (39.0-53.0) % MCHC (31.0-37.0) g/dL Plt Count (150-450) k/uL POC Glucose (mg/dL) 154 H 254 H (70-110) mg/dL Crossmatch See Detail 05/26/24 05/26/24 05/27/24 Range/Units 16:19 18:02 06:08 RBC 3.61 L (4.30-5.90) m/uL Hgb 9.7 L D (13.0-17.5) gm/dL Hct 31.5 L (39.0-53.0) % MCHC 30.9 L (31.0-37.0) g/dL Plt Count 592 H (150-450) k/uL POC Glucose (mg/dL) 175 H 178 H (70-110) mg/dL Crossmatch Microbiology - Last 24 Hours (Table) 05/24/24 19:29 Blood Culture - Preliminary Blood 05/24/24 19:29 Blood Culture - Preliminary Blood Assessment and Plan Assessment: 1. Reversible ischemia to right BKA status post right epuao-vdf-nqcz amputation 2. Recent right lower extremity acute ischemia status post fasciotomy and below the knee amputation 3. History of peripheral arterial disease 4. History of Atrial fibrillation 5. Diabetes mellitus Plan: 1. Consult to physical and Occupational Therapy 2. Daily dressing change 3. 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 Rest of medical management per primary medical team 5. Patient should be cleared for discharge from vascular surgery in the next 24 hours Thank you for this consultation, we will continue to follow. The impression and plan of care has been dictated as directed. Dr. Dennison I performed a history and examination of this patient, discussed the same with the dictator. I agree with the dictator's note ,documented as a scribe. Any additional findings or plans will be noted.
[2024-05-27 11:29] LABS: Glucose,Whole Blood 208 mg/dL (70-110)
--- NOTE | 2024-05-27 12:40 | P.PN ---
Subjective Progress Note Date: 05/26/24 Principal diagnosis: Reason for follow-up is right BKA stump infection Patient is a 58-year-old -Citizen Of [place] male with a past medical history significant for diabetes mellitus hypertension hyperlipidemia atrial fibrillation coronary artery disease/[place] patient recently did have right lower extremity fasciotomy and below the knee potation done about a month ago, patient now presenting to the hospital with right BKA wound dehiscence and foul-smelling drainage admitted for right BKA stump infection.Patient was taken to the OR and the patient is status post right sgiqz-vmi-fffw amputation completed on 05/26/2024 On today's evaluation that is 05/26/2024, Patient is afebrile this morning patient denies having any chest pain shortness of breath or cough, the patient is breathing comfortably and currently on room air, patient denies any abdominal pain no diarrhea no nausea no vomiting pain to the right AKA is currently controlled. Patient white count is 11.9, creatinine 0.95, local culture growing Enterobacter Klebsiella and Proteus Objective - Vital Signs Vital signs: Vital Signs Temp 97.9 F 05/26/24 12:39 Pulse 78 05/26/24 15:23 Resp 16 05/26/24 15:23 BP 180/84 05/26/24 15:23 Pulse Ox 98 05/26/24 15:23 FiO2 Intake & Output 05/25/24 05/26/24 05/26/24 18:59 06:59 18:59 Intake Total 1300 1110 Output Total 350 200 800 Balance 950 -200 310 Weight 63.503 kg Intake: IV 800 Intake, IV Titration 1300 Amount Cefepime 2 gm In Sodium 100 Chloride 0.9% 100 ml @ 25 mls/hr IVPB Q12HR [facility] Rx #:[id number] Piperacillin-Tazobactam 3 100 .375 gm In Sodium Chloride 0.9% 100 ml @ 25 mls/hr IVPB Q8HR [facility] Rx# :[id number] Sodium Chloride 0.9% 1, 1100 000 ml @ 100 mls/hr IV . Q10H [facility] Rx#:[id number] Blood Product 310 Rc As-1 Unit 310 [id number] Output: Urine 350 200 700 Estimated Blood Loss 100 Other: Voiding Method Urinal Urinal Urinal - Exam GENERAL DESCRIPTION: Middle-age male lying in bed in no distress RESPIRATORY SYSTEM: Unlabored breathing , decreased breath sounds at bases HEART: S1 S2 regular rate and rhythm , ABDOMEN: Soft , no tenderness EXTREMITIES: Right AKA stump is currently dressed - Labs CBC & Chem 7: 05/26/24 04:32 05/26/24 04:32 Labs: Abnormal Lab Results - Last 24 Hours (Table) 05/25/24 05/25/24 05/25/24 Range/Units 09:23 16:56 21:16 WBC (3.8-10.6) k/uL RBC (4.30-5.90) m/uL Hgb (13.0-17.5) gm/dL Hct (39.0-53.0) % Plt Count (150-450) k/uL Neutrophils # (1.3-7.7) k/uL Sodium (137-145) mmol/L Potassium (3.5-5.1) mmol/L Carbon Dioxide (22-30) mmol/L BUN (9-20) mg/dL Glucose (74-99) mg/dL POC Glucose (mg/dL) 316 H 308 H (70-110) mg/dL Crossmatch See Detail 05/26/24 05/26/24 05/26/24 Range/Units 04:32 04:32 06:07 WBC 11.9 H (3.8-10.6) k/uL RBC 2.77 L (4.30-5.90) m/uL Hgb 7.6 L (13.0-17.5) gm/dL Hct 24.6 L (39.0-53.0) % Plt Count 648 H (150-450) k/uL Neutrophils # 9.3 H (1.3-7.7) k/uL Sodium 129 L (137-145) mmol/L Potassium 5.6 H (3.5-5.1) mmol/L Carbon Dioxide 21 L (22-30) mmol/L BUN 21 H (9-20) mg/dL Glucose 242 H (74-99) mg/dL POC Glucose (mg/dL) 255 H (70-110) mg/dL Crossmatch 05/26/24 05/26/24 Range/Units 11:30 14:45 WBC (3.8-10.6) k/uL RBC (4.30-5.90) m/uL Hgb (13.0-17.5) gm/dL Hct (39.0-53.0) % Plt Count (150-450) k/uL Neutrophils # (1.3-7.7) k/uL Sodium (137-145) mmol/L Potassium (3.5-5.1) mmol/L Carbon Dioxide (22-30) mmol/L BUN (9-20) mg/dL Glucose (74-99) mg/dL POC Glucose (mg/dL) 154 H 254 H (70-110) mg/dL Crossmatch Microbiology - Last 24 Hours (Table) 05/24/24 19:29 Blood Culture - Preliminary Blood 05/24/24 19:29 Blood Culture - Preliminary Blood 05/24/24 19:41 Gram Stain - Preliminary Leg - Right Wound Culture - Preliminary Enterobacter cloacae Complex Klebsiella pneumoniae Proteus mirabilis Assessment and Plan (1) Surgical site infection Current Visit: Yes Status: Acute Code(s): T81.49XA - INFECTION FOLLOWING A PROCEDURE, OTHER SURGICAL SITE, INIT SNOMED Code(s): 23126429 Plan: 1patient presented to hospital with increasing pain nonhealing wound to the right BKA stump with drainage concerning for surgical site infection will need to cover for the gram-positive skin rose as well as gram-negative pathogen. 2patient local culture currently growing mostly gram-negative, patient status post right lwztm-iqk-qeee amputation we will continue with cefepime for another 2 days while inpatient and monitor clinical course closely Dictation was produced using Palm dictation software. please excuse any grammatical, word or spelling errors. Time with Patient: Less than 30
--- NOTE | 2024-05-27 13:23 | P.PN ---
Subjective Progress Note Date: 05/27/24 Principal diagnosis: Reason for follow-up is right BKA stump infection Patient is a 58-year-old -[place] male with a past medical history significant for diabetes mellitus hypertension hyperlipidemia atrial fibrillation coronary artery disease/[place] patient recently did have right lower extremity fasciotomy and below the knee potation done about a month ago, patient now presenting to the hospital with right BKA wound dehiscence and foul-smelling drainage admitted for right BKA stump infection.Patient was taken to the OR and the patient is status post right yyswo-val-jzbz amputation completed on 05/26/2024 On today's evaluation that is 05/27/2024,the patient denies any fever or any chills, patient is breathing comfortably on room air, the patient denies chest pain shortness of breath and no significant cough, patient denies abdominal pain, no nausea vomiting or diarrhea. Still complaining of pain to the right decreased under control with the pain medication. Patient white count is 12.52, creatinine 0.9, culture mostly gram-negative Objective - Vital Signs Vital signs: Vital Signs Temp 97.6 F 05/27/24 07:04 Pulse 80 05/27/24 07:04 Resp 16 05/27/24 07:04 BP 156/71 05/27/24 07:04 Pulse Ox 98 05/27/24 07:04 FiO2 Intake & Output 05/26/24 05/27/24 05/27/24 18:59 06:59 18:59 Intake Total 1960 Output Total 800 Balance 1160 Weight 63.503 kg Intake: IV 800 Intake, IV Titration 850 Amount Cefepime 2 gm In Sodium 200 Chloride 0.9% 100 ml @ 25 mls/hr IVPB Q8HR [facility] Rx# :[id number] Sodium Chloride 0.9% 1, 400 000 ml @ 100 mls/hr IV . Q10H [facility] Rx#:[id number] Vancomycin 1,250 mg In 250 Sodium Chloride 0.9% 250 ml @ 125 mls/hr IVPB Q16H [facility] Rx#:[id number] Blood Product 310 Rc As-1 Unit 310 [id number] Output: Urine 700 Estimated Blood Loss 100 Other: Voiding Method Urinal Urinal - Exam GENERAL DESCRIPTION: Middle-age male lying in bed in no distress RESPIRATORY SYSTEM: Unlabored breathing , decreased breath sounds at bases HEART: S1 S2 regular rate and rhythm , ABDOMEN: Soft , no tenderness EXTREMITIES: Right AKA stump is currently dressed - Labs CBC & Chem 7: 05/27/24 05:42 05/27/24 05:48 Labs: Abnormal Lab Results - Last 24 Hours (Table) 05/25/24 05/26/24 05/26/24 Range/Units 09:23 14:45 16:19 WBC (4.50-10.00) X 10*3/uL RBC (4.30-5.90) m/uL Hgb (13.0-17.5) gm/dL Hct (39.0-53.0) % MCHC (31.0-37.0) g/dL Plt Count (150-450) k/uL Sodium (135-145) mmol/L Potassium (3.5-5.5) mmol/L Carbon Dioxide (21.6-31.8) mmol/L Anion Gap (4.00-12.00) mmol/L Glucose (70-110) mg/dL POC Glucose (mg/dL) 254 H 175 H (70-110) mg/dL Calcium (8.7-10.3) mg/dL Albumin (3.8-4.9) g/dL Globulin (1.6-3.3) g/dL Albumin/Globulin Ratio (1.60-3.17) Ratio Crossmatch See Detail 05/26/24 05/27/24 05/27/24 Range/Units 18:02 05:42 05:48 WBC 12.52 H (4.50-10.00) X 10*3/uL RBC 3.61 L 3.32 L (4.30-5.90) m/uL Hgb 9.7 L D 9.2 L (13.0-17.5) gm/dL Hct 31.5 L 29.0 L (39.0-53.0) % MCHC 30.9 L 31.7 L (31.0-37.0) g/dL Plt Count 592 H 602 H (150-450) k/uL Sodium 132 L (135-145) mmol/L Potassium 5.6 H (3.5-5.5) mmol/L Carbon Dioxide 19.7 L (21.6-31.8) mmol/L Anion Gap 13.30 H (4.00-12.00) mmol/L Glucose 169 H (70-110) mg/dL POC Glucose (mg/dL) (70-110) mg/dL Calcium 8.2 L (8.7-10.3) mg/dL Albumin 2.9 L (3.8-4.9) g/dL Globulin 3.4 H (1.6-3.3) g/dL Albumin/Globulin Ratio 0.85 L (1.60-3.17) Ratio Crossmatch 05/27/24 05/27/24 Range/Units 06:08 11:28 WBC (4.50-10.00) X 10*3/uL RBC (4.30-5.90) m/uL Hgb (13.0-17.5) gm/dL Hct (39.0-53.0) % MCHC (31.0-37.0) g/dL Plt Count (150-450) k/uL Sodium (135-145) mmol/L Potassium (3.5-5.5) mmol/L Carbon Dioxide (21.6-31.8) mmol/L Anion Gap (4.00-12.00) mmol/L Glucose (70-110) mg/dL POC Glucose (mg/dL) 178 H 208 H (70-110) mg/dL Calcium (8.7-10.3) mg/dL Albumin (3.8-4.9) g/dL Globulin (1.6-3.3) g/dL Albumin/Globulin Ratio (1.60-3.17) Ratio Crossmatch Microbiology - Last 24 Hours (Table) 05/24/24 19:29 Blood Culture - Preliminary Blood 05/24/24 19:29 Blood Culture - Preliminary Blood Assessment and Plan (1) Surgical site infection Current Visit: Yes Status: Acute Code(s): T81.49XA - INFECTION FOLLOWING A PROCEDURE, OTHER SURGICAL SITE, INIT SNOMED Code(s): 86049675 Plan: 1patient presented to hospital with increasing pain nonhealing wound to the right BKA stump with drainage concerning for surgical site infection will need to cover for the gram-positive skin rose as well as gram-negative pathogen. 2patient local culture currently growing mostly gram-negative, patient status post right niglb-wqt-ujpw amputation we will continue with cefepime and discontinue vancomycin Dictation was produced using dragon dictation software. please excuse any grammatical, word or spelling errors. Time with Patient: Less than 30
[2024-05-27 16:49] LABS: Glucose,Whole Blood 204 mg/dL (70-110)
[2024-05-27] MEDS ORDERED: VANCOMYCIN TROUGH DUE 1 EACH MISC MISCELLANE ONE (21:00)
[2024-05-27 21:05] LABS: Glucose,Whole Blood 174 mg/dL (70-110)
[2024-05-28 05:40] LABS: Glucose,Whole Blood 225 mg/dL (70-110)
--- NOTE | 2024-05-28 07:38 | P.PN ---
Subjective Progress Note Date: 05/27/24 This is a 58-year-old male who is admitted for infected wound. Patient had a recent BKA which got infected on the right side. Patient had this amputation about a month ago patient appears to be on doxycycline and Bactrim at home. Patient also found to be in acute renal failure with creatinine going up to 1.8 and serum potassium about 5.6 yesterday repeat labs are not available at this time. Patient is complaining of pain in the infected site area. 05/26/2024 Patient is seen in follow-up this morning scheduled to undergo debridement and possible AKA on the right lower extremity with vascular surgery Dr. Dennison today. Currently n.p.o. and will await surgical report. Patient's blood pressures have been uncontrolled and elevated and home medications being reviewed and resumed. Sodium continues to be low with kidney function slightly improved and potassium mildly elevated. Recommend low potassium diet and will follow-up with repeat labs. 05/27/2024 Patient is seen and evaluated in follow-up status post AKA on the right with vascular surgery. Patient's blood pressure continues to be elevated and home medications reviewed and resumed including clonidine and oral hydralazine. Blood pressure appears to be slightly improved today. Patient is continued on antibiotics with infectious disease following and awaiting finalized cultures as well. Continue with local wound care per vascular surgery and will also need to discuss further with case management regarding discharge planning as patient reports he is homeless and does not currently have a primary care provider. Patient may need ECF for continued wound care and possible IV antibiotics. Patient is afebrile with no reports of chest pain or shortness of breath. Patient is tolerating diet with no reported nausea or vomiting. Continue monitoring Accu-Cheks before meals and at bedtime and adjust insulins accordingly. Review of systems: Constitutional: No reports of fatigue, fever, or chills Cardiovascular: No reports of chest pain or palpitations Respiratory: No reports of shortness of breath or cough GI: No reports of nausea, vomiting, or diarrhea : No reports of dysuria or retention Neurovascular: reports of generalized weakness continued right lower extremity pain although improved since surgery All medications have been reviewed PHYSICAL EXAMINATION: GENERAL: The patient is alert and oriented x3, not in any acute distress. Well developed, well nourished. HEENT: Pupils are round and equally reacting to light. EOMI. No scleral icterus. No conjunctival pallor. Normocephalic, atraumatic. No pharyngeal erythema. No thyromegaly. CARDIOVASCULAR: S1 and S2 present. No murmurs, rubs, or gallops. PULMONARY: Chest is clear to auscultation, no wheezing or crackles. ABDOMEN: Soft, nontender, nondistended, normoactive bowel sounds. No palpable organomegaly. MUSCULOSKELETAL: No joint swelling or deformity. EXTREMITIES: No cyanosis, clubbing, or pedal edema. NEUROLOGICAL: Gross neurological examination did not reveal any focal deficits. SKIN: Right AKA surgical site dressing is dry and intact Assessment and plan: -Infected surgical site area status post BKA about a month ago: Patient on van comycin and Zosyn at this time awaiting deep and superficial cultures. Status post right AKA, postop day 1 05/27/2024 -Hyperkalemia: Secondary to losartan and Bactrim, recommend low potassium diet and will follow-up with repeat labs -Hypertension, uncontrolled. Coreg and hydralazine resumed and other blood pressure medications being resumed per vascular surgery -Acute renal failure: Probably prerenal azotemia along with the possibility of acute tubular necrosis continue with IV fluids, this can be secondary to Bactrim and losartan -Type 2 diabetes mellitus uncontrolled elevated blood sugars. Patient will be resumed on home regimen and will adjust insulins accordingly. -Noncompliance outpatient with follow-up, homeless -Peripheral neuropathy, we will cut down the dose of gabapentin because of acute renal failure -GI prophylaxis, Protonix -DVT prophylaxis: Patient will be started on DVT prophylaxis post debridement once cleared by vascular to resume -Full code Plan: Continue antibiotics per ID recommendations and continue with local wound care per vascular surgery as patient is status post AKA Continue to monitor blood pressure and adjust medications accordingly Continue with Accu-Cheks before meals and at bedtime and continue current regimen, low potassium consistent carb diet Case management/social work to follow regarding discharge planning as patient is homeless and currently reports he has no primary care provider Will discuss further with vascular surgery along with infectious disease regarding discharge planning if patient may require IV antibiotic and continued wound care. The impression and plan of care has been dictated by Nurse Wesley Goodwin as directed. Dr. Louis MD I have performed a history and examination and MDM of this patient, discussed the same with the dictator, and agree with the dictator's assessment and plan a s written ,documented as a scribe. Based on total visit time, I have performed more than 50% of the visit. Objective - Vital Signs Vital signs: Vital Signs Temp 98.2 F 05/27/24 02:00 Pulse 80 05/27/24 02:00 Resp 21 05/27/24 02:00 BP 147/62 05/27/24 04:34 Pulse Ox 98 05/27/24 02:00 FiO2 Intake & Output 05/26/24 05/27/24 05/27/24 18:59 06:59 18:59 Intake Total 1960 Output Total 800 Balance 1160 Weight 63.503 kg Intake: IV 800 Intake, IV Titration 850 Amount Cefepime 2 gm In Sodium 200 Chloride 0.9% 100 ml @ 25 mls/hr IVPB Q8HR [facility] Rx# :[id number] Sodium Chloride 0.9% 1, 400 000 ml @ 100 mls/hr IV . Q10H [facility] Rx#:[id number] Vancomycin 1,250 mg In 250 Sodium Chloride 0.9% 250 ml @ 125 mls/hr IVPB Q16H [facility] Rx#:[id number] Blood Product 310 Rc As-1 Unit 310 [id number] Output: Urine 700 Estimated Blood Loss 100 Other: Voiding Method Urinal Urinal - Labs CBC & Chem 7: 05/27/24 05:42 05/27/24 05:48 Labs: Abnormal Lab Results - Last 24 Hours (Table) 05/25/24 05/26/24 05/26/24 Range/Units 09:23 11:30 14:45 WBC (4.50-10.00) X 10*3/uL RBC (4.30-5.90) m/uL Hgb (13.0-17.5) gm/dL Hct (39.0-53.0) % MCHC (31.0-37.0) g/dL Plt Count (150-450) k/uL Sodium (135-145) mmol/L Potassium (3.5-5.5) mmol/L Carbon Dioxide (21.6-31.8) mmol/L Anion Gap (4.00-12.00) mmol/L Glucose (70-110) mg/dL POC Glucose (mg/dL) 154 H 254 H (70-110) mg/dL Calcium (8.7-10.3) mg/dL Albumin (3.8-4.9) g/dL Globulin (1.6-3.3) g/dL Albumin/Globulin Ratio (1.60-3.17) Ratio Crossmatch See Detail 05/26/24 05/26/24 05/27/24 Range/Units 16:19 18:02 05:42 WBC 12.52 H (4.50-10.00) X 10*3/uL RBC 3.61 L 3.32 L (4.30-5.90) m/uL Hgb 9.7 L D 9.2 L (13.0-17.5) gm/dL Hct 31.5 L 29.0 L (39.0-53.0) % MCHC 30.9 L 31.7 L (31.0-37.0) g/dL Plt Count 592 H 602 H (150-450) k/uL Sodium (135-145) mmol/L Potassium (3.5-5.5) mmol/L Carbon Dioxide (21.6-31.8) mmol/L Anion Gap (4.00-12.00) mmol/L Glucose (70-110) mg/dL POC Glucose (mg/dL) 175 H (70-110) mg/dL Calcium (8.7-10.3) mg/dL Albumin (3.8-4.9) g/dL Globulin (1.6-3.3) g/dL Albumin/Globulin Ratio (1.60-3.17) Ratio Crossmatch 05/27/24 05/27/24 Range/Units 05:48 06:08 WBC (4.50-10.00) X 10*3/uL RBC (4.30-5.90) m/uL Hgb (13.0-17.5) gm/dL Hct (39.0-53.0) % MCHC (31.0-37.0) g/dL Plt Count (150-450) k/uL Sodium 132 L (135-145) mmol/L Potassium 5.6 H (3.5-5.5) mmol/L Carbon Dioxide 19.7 L (21.6-31.8) mmol/L Anion Gap 13.30 H (4.00-12.00) mmol/L Glucose 169 H (70-110) mg/dL POC Glucose (mg/dL) 178 H (70-110) mg/dL Calcium 8.2 L (8.7-10.3) mg/dL Albumin 2.9 L (3.8-4.9) g/dL Globulin 3.4 H (1.6-3.3) g/dL Albumin/Globulin Ratio 0.85 L (1.60-3.17) Ratio Crossmatch Microbiology - Last 24 Hours (Table) 05/24/24 19:29 Blood Culture - Preliminary Blood 05/24/24 19:29 Blood Culture - Preliminary Blood
[2024-05-28 09:41] LABS: Basophils # (A) 0.04 X 10*3/uL (0.00-0.10); Basophils % (A) 0.4 %; Eosinophils # (A) 0.23 X 10*3/uL (0.04-0.35); Eosinophils % (A) 2.2 %; HCT 25.5 % (39.6-50.0); HGB 8.1 g/dL (13.0-17.0); Lymphocytes # (A) 2.01 X 10*3/uL (0.90-5.00); Lymphocytes % (A) 19.6 %; MCH 27.8 pg (27.0-32.0); MCHC 31.8 g/dL (32.0-37.0); MCV 87.6 FL (80.0-97.0); Mean Platelet Volume 9.3 FL (9.5-12.2); Monocytes # (A) 1.05 X 10*3/uL (0.20-1.00); Monocytes % (A) 10.3 %; NRBC Per 100 WBC 0 X 10*3/uL (0.00-0.01); Neutrophils # (A) 6.83 X 10*3/uL (1.80-7.70); Neutrophils % (A) 66.7 %; Platelet Count 554 X 10*3/uL (140-440); RBC 2.91 X 10*6/uL (4.40-5.60); RDW 14.1 % (11.5-14.5); WBC 10.24 X 10*3/uL (4.50-10.00)
[2024-05-28 10:08] LABS: BUN/Creat Ratio 17.11 Ratio (12.00-20.00); Blood Urea Nitrogen 15.4 mg/dL (9.0-27.0); Calcium 7.8 mg/dL (8.7-10.3); Carbon Dioxide 22.9 mmol/L (21.6-31.8); Chloride 106 mmol/L (96-109); Glucose 212 mg/dL (70-110); Potassium 4.9 mmol/L (3.5-5.5); Sodium 137 mmol/L (135-145)
[2024-05-28 11:38] LABS: Glucose,Whole Blood 229 mg/dL (70-110)
--- NOTE | 2024-05-28 14:11 | P.PN ---
Subjective Progress Note Date: 05/28/24 Principal diagnosis: Reason for follow-up is right BKA stump infection Patient is a 58-year-old -[place] male with a past medical history significant for diabetes mellitus hypertension hyperlipidemia atrial fibrillation coronary artery disease/TX patient recently did have right lower extremity fasciotomy and below the knee potation done about a month ago, patient now presenting to the hospital with right BKA wound dehiscence and foul-smelling drainage admitted for right BKA stump infection.Patient was taken to the OR and the patient is status post right [id number] amputation completed on 05/26/2024 On today's evaluation that is 05/28/2024,the patient remains to be afebrile, patient is on room air not requiring supplemental oxygen and denies any shortness of breath no chest pain or cough.Patient denies having any nausea or vomiting, no abdominal pain and no diarrhea has been reported, pain to the right AKA stump is currently controlled. Patient white count is down to 10.24, creatinine 0.9 local culture has been mostly gram-negative Objective - Vital Signs Vital signs: Vital Signs Temp 98.4 F 05/28/24 07:15 Pulse 62 05/28/24 07:15 Resp 17 05/28/24 07:15 BP 147/72 05/28/24 07:15 Pulse Ox 98 05/28/24 09:27 FiO2 21 05/28/24 09:27 Intake & Output 05/27/24 05/28/24 05/28/24 18:59 06:59 18:59 Intake Total 100 Output Total 400 300 Balance 100 -400 -300 Intake: Intake, IV Titration 100 Amount Cefepime 2 gm In Sodium 100 Chloride 0.9% 100 ml @ 25 mls/hr IVPB Q8HR [facility] Rx# :[id number] Output: Urine 400 300 Other: Voiding Method Urinal # Voids 1 - Exam GENERAL DESCRIPTION: Middle-age male lying in bed in no distress RESPIRATORY SYSTEM: Unlabored breathing , decreased breath sounds at bases HEART: S1 S2 regular rate and rhythm , ABDOMEN: Soft , no tenderness EXTREMITIES: Right AKA stump is currently dressed - Labs CBC & Chem 7: 05/28/24 05:30 05/28/24 05:30 Labs: Abnormal Lab Results - Last 24 Hours (Table) 05/27/24 05/27/24 05/28/24 Range/Units 16:48 21:02 05:30 WBC 10.24 H (4.50-10.00) X 10*3/uL RBC 2.91 L (4.40-5.60) X 10*6/uL Hgb 8.1 L (13.0-17.0) g/dL Hct 25.5 L (39.6-50.0) % MCHC 31.8 L (32.0-37.0) g/dL Plt Count 554 H (140-440) X 10*3/uL MPV 9.3 L (9.5-12.2) FL Immature Gran # 0.08 H (0.00-0.04) X 10*3/uL Monocytes # 1.05 H (0.20-1.00) X 10*3/uL Glucose (70-110) mg/dL POC Glucose (mg/dL) 204 H 174 H (70-110) mg/dL Calcium (8.7-10.3) mg/dL 05/28/24 05/28/24 05/28/24 Range/Units 05:30 05:38 11:37 WBC (4.50-10.00) X 10*3/uL RBC (4.40-5.60) X 10*6/uL Hgb (13.0-17.0) g/dL Hct (39.6-50.0) % MCHC (32.0-37.0) g/dL Plt Count (140-440) X 10*3/uL MPV (9.5-12.2) FL Immature Gran # (0.00-0.04) X 10*3/uL Monocytes # (0.20-1.00) X 10*3/uL Glucose 212 H (70-110) mg/dL POC Glucose (mg/dL) 225 H 229 H (70-110) mg/dL Calcium 7.8 L (8.7-10.3) mg/dL Microbiology - Last 24 Hours (Table) 05/24/24 19:29 Blood Culture - Preliminary Blood 05/24/24 19:29 Blood Culture - Preliminary Blood 05/24/24 19:41 Gram Stain - Preliminary Leg - Right Wound Culture - Preliminary Enterobacter cloacae Complex Klebsiella pneumoniae Proteus mirabilis Assessment and Plan (1) Surgical site infection Current Visit: Yes Status: Acute Code(s): T81.49XA - INFECTION FOLLOWING A PROCEDURE, OTHER SURGICAL SITE, INIT SNOMED Code(s): 39647750 Plan: 1patient presented to hospital with increasing pain nonhealing wound to the right BKA stump with drainage concerning for surgical site infection will need to cover for the gram-positive skin rose as well as gram-negative pathogen. 2patient local culture currently growing mostly gram-negative, patient status post right [id number] amputation, patient to continue with the cefepime and monitor clinical course closely Dictation was produced using [employer] dictation software. please excuse any grammatical, word or spelling errors. Time with Patient: Less than 30
[2024-05-28] MEDS: HEPARIN SODIUM,PORCINE 5,000 UNIT/ML 1 ML VIAL SQ SCH (15:40)
[2024-05-28 16:42] LABS: Glucose,Whole Blood 213 mg/dL (70-110)
[2024-05-28 20:50] LABS: Glucose,Whole Blood 105 mg/dL (70-110)
[2024-05-29 06:05] LABS: Glucose,Whole Blood 235 mg/dL (70-110)
[2024-05-29 09:57] LABS: BUN/Creat Ratio 18.78 Ratio (12.00-20.00); Blood Urea Nitrogen 16.9 mg/dL (9.0-27.0); Calcium 7.7 mg/dL (8.7-10.3); Carbon Dioxide 20.9 mmol/L (21.6-31.8); Chloride 103 mmol/L (96-109); Glucose 227 mg/dL (70-110); Potassium 4.9 mmol/L (3.5-5.5); Sodium 134 mmol/L (135-145)
[2024-05-29 10:22] LABS: Basophils # (A) 0.04 X 10*3/uL (0.00-0.10); Basophils % (A) 0.4 %; Eosinophils # (A) 0.29 X 10*3/uL (0.04-0.35); Eosinophils % (A) 3.2 %; HCT 24.6 % (39.6-50.0); HGB 7.5 g/dL (13.0-17.0); Lymphocytes # (A) 2.12 X 10*3/uL (0.90-5.00); Lymphocytes % (A) 23.4 %; MCH 27.2 pg (27.0-32.0); MCHC 30.5 g/dL (32.0-37.0); MCV 89.1 FL (80.0-97.0); Mean Platelet Volume 9.6 FL (9.5-12.2); Monocytes # (A) 0.81 X 10*3/uL (0.20-1.00); Monocytes % (A) 8.9 %; NRBC Per 100 WBC 0 X 10*3/uL (0.00-0.01); Neutrophils # (A) 5.71 X 10*3/uL (1.80-7.70); Neutrophils % (A) 63.1 %; Platelet Count 532 X 10*3/uL (140-440); RBC 2.76 X 10*6/uL (4.40-5.60); RDW 14.5 % (11.5-14.5); WBC 9.06 X 10*3/uL (4.50-10.00)
[2024-05-29 12:01] LABS: Glucose,Whole Blood 78 mg/dL (70-110)
--- NOTE | 2024-05-29 14:42 | P.PN ---
Subjective Progress Note Date: 05/29/24 Principal diagnosis: Reason for follow-up is right BKA stump infection Patient is a 58-year-old -[place] male with a past medical history significant for diabetes mellitus hypertension hyperlipidemia atrial fibrillation coronary artery disease/OR patient recently did have right lower extremity fasciotomy and below the knee potation done about a month ago, patient now presenting to the hospital with right BKA wound dehiscence and foul-smelling drainage admitted for right BKA stump infection.Patient was taken to the OR and the patient is status post right [id number] amputation completed on 05/26/2024 On today's evaluation that is 05/29/2024, the patient continues to be afebrile, the patient is on room air and breathing comfortably, the Pt denies having any chest pain or cough, the patient denies having any abdominal pain no vomiting or any diarrhea has been reported by the nursing staff patient white count is 9.06, creatinine 0.9 Pain to the right AKA stump is currently controlled. Objective - Vital Signs Vital signs: Vital Signs Temp 97.7 F 05/29/24 08:17 Pulse 60 05/29/24 08:17 Resp 18 05/29/24 08:17 BP 158/75 05/29/24 08:17 Pulse Ox 100 05/29/24 08:17 FiO2 21 05/28/24 09:27 Intake & Output 05/28/24 05/29/24 05/29/24 18:59 06:59 18:59 Intake Total 240 Output Total 300 Balance -60 Intake: IV 240 Lactated Ringers 1,000 ml 240 @ 20 mls/hr IV .Q24H [facility] Rx#:[id number] Output: Urine 300 Other: Voiding Method Urinal Urinal External Catheter # Voids 1 - Exam GENERAL DESCRIPTION: Middle-age male lying in bed in no distress RESPIRATORY SYSTEM: Unlabored breathing , decreased breath sounds at bases HEART: S1 S2 regular rate and rhythm , ABDOMEN: Soft , no tenderness EXTREMITIES: Right AKA stump is currently dressed - Labs CBC & Chem 7: 05/29/24 06:15 05/29/24 06:15 Labs: Abnormal Lab Results - Last 24 Hours (Table) 05/28/24 05/29/24 05/29/24 Range/Units 16:41 06:03 06:15 RBC 2.76 L (4.40-5.60) X 10*6/uL Hgb 7.5 L (13.0-17.0) g/dL Hct 24.6 L (39.6-50.0) % MCHC 30.5 L (32.0-37.0) g/dL Plt Count 532 H (140-440) X 10*3/uL Immature Gran # 0.09 H (0.00-0.04) X 10*3/uL Sodium (135-145) mmol/L Carbon Dioxide (21.6-31.8) mmol/L Glucose (70-110) mg/dL POC Glucose (mg/dL) 213 H 235 H (70-110) mg/dL Calcium (8.7-10.3) mg/dL 05/29/24 Range/Units 06:15 RBC (4.40-5.60) X 10*6/uL Hgb (13.0-17.0) g/dL Hct (39.6-50.0) % MCHC (32.0-37.0) g/dL Plt Count (140-440) X 10*3/uL Immature Gran # (0.00-0.04) X 10*3/uL Sodium 134 L (135-145) mmol/L Carbon Dioxide 20.9 L (21.6-31.8) mmol/L Glucose 227 H (70-110) mg/dL POC Glucose (mg/dL) (70-110) mg/dL Calcium 7.7 L (8.7-10.3) mg/dL Microbiology - Last 24 Hours (Table) 05/24/24 19:41 Gram Stain - Preliminary Leg - Right Wound Culture - Preliminary Enterobacter cloacae Complex Klebsiella pneumoniae Proteus mirabilis Assessment and Plan (1) Surgical site infection Current Visit: Yes Status: Acute Code(s): T81.49XA - INFECTION FOLLOWING A PROCEDURE, OTHER SURGICAL SITE, INIT SNOMED Code(s): 68101309 Plan: 1patient presented to hospital with increasing pain nonhealing wound to the right BKA stump with drainage concerning for surgical site infection will need to cover for the gram-positive skin rose as well as gram-negative pathogen. 2patient local culture grew Enterobacter Klebsiella and Proteus, patient status post right [id number] amputation, 3- patient to continue with the cefepime while inpatient however no need for IV antibiotics on discharge Dictation was produced using [employer] dictation software. please excuse any grammatical, word or spelling errors. Time with Patient: Less than 30
[2024-05-29 17:04] LABS: Glucose,Whole Blood 234 mg/dL (70-110)
[2024-05-29 20:51] LABS: Glucose,Whole Blood 249 mg/dL (70-110)
--- NOTE | 2024-05-29 21:04 | P.PN ---
Subjective Progress Note Date: 05/28/24 This is a 58-year-old male who is admitted for infected wound. Patient had a recent BKA which got infected on the right side. Patient had this amputation about a month ago patient appears to be on doxycycline and Bactrim at home. Patient also found to be in acute renal failure with creatinine going up to 1.8 and serum potassium about 5.6 yesterday repeat labs are not available at this time. Patient is complaining of pain in the infected site area. 05/26/2024 Patient is seen in follow-up this morning scheduled to undergo debridement and possible AKA on the right lower extremity with vascular surgery Dr. Dennison today. Currently n.p.o. and will await surgical report. Patient's blood pressures have been uncontrolled and elevated and home medications being reviewed and resumed. Sodium continues to be low with kidney function slightly improved and potassium mildly elevated. Recommend low potassium diet and will follow-up with repeat labs. 05/27/2024 Patient is seen and evaluated in follow-up status post AKA on the right with vascular surgery. Patient's blood pressure continues to be elevated and home medications reviewed and resumed including clonidine and oral hydralazine. Blood pressure appears to be slightly improved today. Patient is continued on antibiotics with infectious disease following and awaiting finalized cultures as well. Continue with local wound care per vascular surgery and will also need to discuss further with case management regarding discharge planning as patient reports he is homeless and does not currently have a primary care provider. Patient may need ECF for continued wound care and possible IV antibiotics. Patient is afebrile with no reports of chest pain or shortness of breath. Patient is tolerating diet with no reported nausea or vomiting. Continue monitoring Accu-Cheks before meals and at bedtime and adjust insulins accordingly. 05/28/2024 Patient is sitting in the chair. Awake alert and oriented x 3. Not on oxygen. No complaints of abdominal pain. No nausea vomiting abdominal pain. Diarrhea. Right AKA stump wound dressing. Pain is controlled. Laboratory data showed WBC 10.2 hemoglobin 8.1 and platelets 454 sodium 137 pota ssium 4.9 chloride 106 bicarb is 22.9 BUN 15.4 and creatinine 0.9 and blood sugar is 212 and calcium 7.8. Wound cultures from 05/24/2024 showed Enterobacter, Klebsiella, Proteus and Pseudomonas. Patient is being continued on antibiotics of normal cefepime doxycycline. ID is on board. Review of systems: Constitutional: No reports of fatigue, fever, or chills Cardiovascular: No reports of chest pain or palpitations Respiratory: No reports of shortness of breath or cough GI: No reports of nausea, vomiting, or diarrhea : No reports of dysuria or retention Neurovascular: reports of generalized weakness continued right lower extremity pain although improved since surgery All medications have been reviewed PHYSICAL EXAMINATION: GENERAL: The patient is alert and oriented x3, not in any acute distress. Well developed, well nourished. HEENT: Pupils are round and equally reacting to light. EOMI. No scleral icterus. No conjunctival pallor. Normocephalic, atraumatic. No pharyngeal erythema. No thyromegaly. CARDIOVASCULAR: S1 and S2 present. No murmurs, rubs, or gallops. PULMONARY: Chest is clear to auscultation, no wheezing or crackles. ABDOMEN: Soft, nontender, nondistended, normoactive bowel sounds. No palpable organomegaly. MUSCULOSKELETAL: No joint swelling or deformity. EXTREMITIES: No cyanosis, clubbing, or pedal edema. NEUROLOGICAL: Gross neurological examination did not reveal any focal deficits. SKIN: Right AKA surgical site dressing is dry and intact Assessment and plan: -Infected surgical site area status post BKA about a month ago: Patient on vancomycin and Zosyn at this time awaiting deep and superficial cultures. Status post right AKA on 05/26/2024., postop day 2 -Hyperkalemia: Secondary to losartan and Bactrim, recommend low potassium diet and will follow-up with repeat labs -Hypertension, uncontrolled. Coreg and hydralazine resumed and other blood pressure medications being resumed per vascular surgery -Acute renal failure: Probably prerenal azotemia along with the possibility of acute tubular necrosis continue with IV fluids, this can be secondary to Bactrim and losartan -Type 2 diabetes mellitus uncontrolled elevated blood sugars. Patient will be resumed on home regimen and will adjust insulins accordingly. -Noncompliance outpatient with follow-up, homeless -Peripheral neuropathy, we will cut down the dose of gabapentin because of acute renal failure -GI prophylaxis, Protonix -DVT prophylaxis: Patient will be started on DVT prophylaxis post debridement once cleared by vascular to resume -Full code Plan: Continue antibiotics per ID recommendations and continue with local wound care per vascular surgery as patient is status post AKA Continue to monitor blood pressure and adjust medications accordingly Continue with Accu-Cheks before meals and at bedtime and continue current regimen, low potassium consistent carb diet Case management/social work to follow regarding discharge planning as patient is homeless and currently reports he has no primary care provider Will discuss further with vascular surgery along with infectious disease regarding discharge planning if patient may require IV antibiotic and continued wound care. Objective - Vital Signs Vital signs: Vital Signs Temp 98.4 F 05/28/24 07:15 Pulse 62 05/28/24 07:15 Resp 17 05/28/24 07:15 BP 147/72 05/28/24 07:15 Pulse Ox 98 05/28/24 09:27 FiO2 21 05/28/24 09:27 Intake & Output 05/27/24 05/28/24 05/28/24 18:59 06:59 18:59 Intake Total 100 Output Total 400 300 Balance 100 -400 -300 Intake: Intake, IV Titration 100 Amount Cefepime 2 gm In Sodium 100 Chloride 0.9% 100 ml @ 25 mls/hr IVPB Q8HR [facility] Rx# :[id number] Output: Urine 400 300 Other: Voiding Method Urinal # Voids 1 - Labs CBC & Chem 7: 05/29/24 06:15 05/29/24 06:15 Labs: Abnormal Lab Results - Last 24 Hours (Table) 05/27/24 05/27/24 05/28/24 Range/Units 16:48 21:02 05:30 WBC 10.24 H (4.50-10.00) X 10*3/uL RBC 2.91 L (4.40-5.60) X 10*6/uL Hgb 8.1 L (13.0-17.0) g/dL Hct 25.5 L (39.6-50.0) % MCHC 31.8 L (32.0-37.0) g/dL Plt Count 554 H (140-440) X 10*3/uL MPV 9.3 L (9.5-12.2) FL Immature Gran # 0.08 H (0.00-0.04) X 10*3/uL Monocytes # 1.05 H (0.20-1.00) X 10*3/uL Glucose (70-110) mg/dL POC Glucose (mg/dL) 204 H 174 H (70-110) mg/dL Calcium (8.7-10.3) mg/dL 05/28/24 05/28/24 05/28/24 Range/Units 05:30 05:38 11:37 WBC (4.50-10.00) X 10*3/uL RBC (4.40-5.60) X 10*6/uL Hgb (13.0-17.0) g/dL Hct (39.6-50.0) % MCHC (32.0-37.0) g/dL Plt Count (140-440) X 10*3/uL MPV (9.5-12.2) FL Immature Gran # (0.00-0.04) X 10*3/uL Monocytes # (0.20-1.00) X 10*3/uL Glucose 212 H (70-110) mg/dL POC Glucose (mg/dL) 225 H 229 H (70-110) mg/dL Calcium 7.8 L (8.7-10.3) mg/dL Microbiology - Last 24 Hours (Table) 05/24/24 19:29 Blood Culture - Preliminary Blood 05/24/24 19:29 Blood Culture - Preliminary Blood 05/24/24 19:41 Gram Stain - Preliminary Leg - Right Wound Culture - Preliminary Enterobacter cloacae Complex Klebsiella pneumoniae Proteus mirabilis
[2024-05-30 06:13] LABS: Glucose,Whole Blood 300 mg/dL (70-110)
[2024-05-30 09:07] LABS: Blood Urea Nitrogen 19.7 mg/dL (9.0-27.0); Carbon Dioxide 22.3 mmol/L (21.6-31.8); Chloride 104 mmol/L (96-109); Glucose 301 mg/dL (70-110); Potassium 5.4 mmol/L (3.5-5.5); Sodium 136 mmol/L (135-145)
--- NOTE | 2024-05-30 09:21 | P.PN ---
Subjective Progress Note Date: 05/30/24 Principal diagnosis: Irreversible ischemia right BKA Patient seen and examined today as a follow-up. He has postop day #4 for right goyln-sct-bsbv amputation. He has been afebrile. Pain is well-managed. He has stump literacy consultant and rigid dressing in place. Objective - Vital Signs Vital signs: Vital Signs Temp 97.1 F L 05/30/24 07:23 Pulse 62 05/30/24 07:23 Resp 18 05/30/24 07:23 BP 177/78 05/30/24 07:23 Pulse Ox 98 05/30/24 07:23 FiO2 21 05/28/24 09:27 Intake & Output 05/29/24 05/30/24 05/30/24 18:59 06:59 18:59 Output Total 700 300 Balance -700 -300 Output: Urine 700 300 Other: Voiding Method External Catheter External Catheter # Voids 300 - Exam General appearance: The patient is alert, oriented, appears in no acute distress. HET: Head is normocephalic and atraumatic. e. Neck: Supple. Abdomen: Soft, nondistended. Extremities: Right ywthr-ecj-vtcd amputation surgical incision well-approximated with jason. Surrounding tissue clean warm and dry. Stump literacy consultant and rigid dressing in place. Neurological: No focal deficits. - Labs CBC & Chem 7: 05/29/24 06:15 05/30/24 04:06 Labs: Abnormal Lab Results - Last 24 Hours (Table) 05/29/24 05/29/24 05/29/24 Range/Units 06:15 06:15 17:02 RBC 2.76 L (4.40-5.60) X 10*6/uL Hgb 7.5 L (13.0-17.0) g/dL Hct 24.6 L (39.6-50.0) % MCHC 30.5 L (32.0-37.0) g/dL Plt Count 532 H (140-440) X 10*3/uL Immature Gran # 0.09 H (0.00-0.04) X 10*3/uL Sodium 134 L (135-145) mmol/L Carbon Dioxide 20.9 L (21.6-31.8) mmol/L Glucose 227 H (70-110) mg/dL POC Glucose (mg/dL) 234 H (70-110) mg/dL Calcium 7.7 L (8.7-10.3) mg/dL 05/29/24 05/30/24 05/30/24 Range/Units 20:48 04:06 06:12 RBC (4.40-5.60) X 10*6/uL Hgb (13.0-17.0) g/dL Hct (39.6-50.0) % MCHC (32.0-37.0) g/dL Plt Count (140-440) X 10*3/uL Immature Gran # (0.00-0.04) X 10*3/uL Sodium (135-145) mmol/L Carbon Dioxide (21.6-31.8) mmol/L Glucose 301 H (70-110) mg/dL POC Glucose (mg/dL) 249 H 300 H (70-110) mg/dL Calcium 8.0 L (8.7-10.3) mg/dL Microbiology - Last 24 Hours (Table) 05/24/24 19:29 Blood Culture - Final Blood 05/24/24 19:29 Blood Culture - Final Blood 05/24/24 19:41 Gram Stain - Final Leg - Right Wound Culture - Final Enterobacter cloacae Complex Klebsiella pneumoniae Proteus mirabilis Pseudomonas aeruginosa Assessment and Plan Assessment: 1. Reversible ischemia to right BKA status post right anwem-qal-zgjj amputation 2. Recent right lower extremity acute ischemia status post fasciotomy and below the knee amputation 3. History of peripheral arterial disease 4. History of Atrial fibrillation 5. Diabetes mellitus Plan: 1. Consult to physical and Occupational Therapy 2. Dressing change as needed to right AKA 3. Stump literacy consultant and rigid dressing 4. Rest of medical management per primary medical team 5. Patient is cleared from vascular surgery for discharge. Follow-up with Dr. Dennison in 2 weeks. Thank you for this consultation, we will sign off at this time. The impression and plan of care has been dictated as directed. Dr. Hess I performed a history and examination of this patient, discussed the same with the dictator. I agree with the dictator's note ,documented as a scribe. Any additional findings or plans will be noted.
[2024-05-30 09:45] LABS: Basophils # (A) 0.04 X 10*3/uL (0.00-0.10); Basophils % (A) 0.4 %; Eosinophils # (A) 0.27 X 10*3/uL (0.04-0.35); Eosinophils % (A) 2.8 %; HCT 24.5 % (39.6-50.0); HGB 7.5 g/dL (13.0-17.0); Lymphocytes # (A) 1.54 X 10*3/uL (0.90-5.00); Lymphocytes % (A) 16.2 %; MCH 27.5 pg (27.0-32.0); MCHC 30.6 g/dL (32.0-37.0); MCV 89.7 FL (80.0-97.0); Mean Platelet Volume 9.4 FL (9.5-12.2); Monocytes # (A) 0.76 X 10*3/uL (0.20-1.00); NRBC Per 100 WBC 0 X 10*3/uL (0.00-0.01); Neutrophils # (A) 6.77 X 10*3/uL (1.80-7.70); Neutrophils % (A) 71.4 %; Platelet Count 568 X 10*3/uL (140-440); RBC 2.73 X 10*6/uL (4.40-5.60); RDW 14.4 % (11.5-14.5); WBC 9.49 X 10*3/uL (4.50-10.00)
[2024-05-30 11:47] LABS: Glucose,Whole Blood 295 mg/dL (70-110)
[2024-05-30 16:35] LABS: Glucose,Whole Blood 299 mg/dL (70-110)
[2024-05-30 21:11] LABS: Glucose,Whole Blood 238 mg/dL (70-110)
--- NOTE | 2024-05-30 22:15 | P.PN ---
Subjective Progress Note Date: 05/30/24 This is a 58-year-old male who is admitted for infected wound. Patient had a recent BKA which got infected on the right side. Patient had this amputation about a month ago patient appears to be on doxycycline and Bactrim at home. Patient also found to be in acute renal failure with creatinine going up to 1.8 and serum potassium about 5.6 yesterday repeat labs are not available at this time. Patient is complaining of pain in the infected site area. 05/26/2024 Patient is seen in follow-up this morning scheduled to undergo debridement and possible AKA on the right lower extremity with vascular surgery Dr. Dennison today. Currently n.p.o. and will await surgical report. Patient's blood pressures have been uncontrolled and elevated and home medications being reviewed and resumed. Sodium continues to be low with kidney function slightly improved and potassium mildly elevated. Recommend low potassium diet and will follow-up with repeat labs. 05/27/2024 Patient is seen and evaluated in follow-up status post AKA on the right with vascular surgery. Patient's blood pressure continues to be elevated and home medications reviewed and resumed including clonidine and oral hydralazine. Blood pressure appears to be slightly improved today. Patient is continued on antibiotics with infectious disease following and awaiting finalized cultures as well. Continue with local wound care per vascular surgery and will also need to discuss further with case management regarding discharge planning as patient reports he is homeless and does not currently have a primary care provider. Patient may need ECF for continued wound care and possible IV antibiotics. Patient is afebrile with no reports of chest pain or shortness of breath. Patient is tolerating diet with no reported nausea or vomiting. Continue monitoring Accu-Cheks before meals and at bedtime and adjust insulins accordingly. 05/30/2024 Patient is seen in follow-up today with no acute overnight issues noted. Patient reports his pain is less intense and is status post AKA. Patient has been cleared by vascular surgery currently awaiting insurance Auth at [facility]. Case management following and has been submitted although pending. Patient was awaiting repeat reevaluation from PT/OT therapy. Patient is continued on IV antibiotics with infectious disease following and will not require antibiotics on discharge. Continue local wound care per vascular surgery recommendations. Blood sugars mildly elevated and will continue current regimen and adjust accordingly. Review of systems: Constitutional: No reports of fatigue, fever, or chills Cardiovascular: No reports of chest pain or palpitations Respiratory: No reports of shortness of breath or cough GI: No reports of nausea, vomiting, or diarrhea : No reports of dysuria or retention Neurovascular: reports of generalized weakness continued right lower extremity pain although improved since surgery All medications have been reviewed PHYSICAL EXAMINATION: GENERAL: The patient is alert and oriented x3, not in any acute distress. Well developed, well nourished. Elderly appearing HEENT: Pupils are round and equally reacting to light. EOMI. No scleral icterus. No conjunctival pallor. Normocephalic, atraumatic. No pharyngeal erythema. No th yromegaly. CARDIOVASCULAR: S1 and S2 present. No murmurs, rubs, or gallops. PULMONARY: Chest is clear to auscultation, no wheezing or crackles. ABDOMEN: Soft, nontender, nondistended, normoactive bowel sounds. No palpable organomegaly. MUSCULOSKELETAL: No joint swelling or deformity. EXTREMITIES: No cyanosis, clubbing, or pedal edema. NEUROLOGICAL: Gross neurological examination did not reveal any focal deficits. Diffusely weak SKIN: Right AKA surgical site dressing is dry and intact Assessment and plan: -Infected surgical site area status post BKA about a month ago: Patient on vancomycin and Zosyn at this time awaiting deep and superficial cultures. Status post right AKA, 05/27/2024 -Hyperkalemia: Secondary to losartan and Bactrim, recommend low potassium diet and will follow-up with repeat labs -Hypertension, uncontrolled. Coreg and hydralazine resumed and other blood pressure medications being resumed per vascular surgery -Acute renal failure: Probably prerenal azotemia along with the possibility of acute tubular necrosis continue with IV fluids, this can be secondary to Bactrim and losartan -Type 2 diabetes mellitus uncontrolled elevated blood sugars. Patient will be resumed on home regimen and will adjust insulins accordingly. -Noncompliance outpatient with follow-up, homeless -Peripheral neuropathy, we will cut down the dose of gabapentin because of acute renal failure -GI prophylaxis, Protonix -DVT prophylaxis: Patient will be started on DVT prophylaxis post debridement once cleared by vascular to resume -Full code Plan: Continue antibiotics per ID recommendations and continue with local wound care per vascular surgery as patient is status post AKA. Patient will not require antibiotics on discharge per ID recommendations Continue to monitor blood pressure and adjust medications accordingly. Adding nifedipine and will discontinue losartan as patient's potassium continues to be elevated Continue with Accu-Cheks before meals and at bedtime and continue current regimen, low potassium consistent carb diet, adjust insulins slightly as blood pressures have remained elevated Case management/social work to follow regarding discharge planning as patient is awaiting insurance authorization to [facility]. Possible discharge planning in the next 24 to 48 hours The impression and plan of care has been dictated by Maty Bedoya, Nurse Practitioner as directed. Dr. Louis MD I have performed a history and examination and MDM of this patient, discussed the same with the dictator, and agree with the dictator's assessment and plan as written ,documented as a scribe. Based on total visit time, I have performed more than 50% of the visit. With no acute overnight issues noted. Objective - Vital Signs Vital signs: Vital Signs Temp 97.1 F L 05/30/24 07:23 Pulse 62 05/30/24 07:23 Resp 18 05/30/24 07:23 BP 177/78 05/30/24 07:23 Pulse Ox 98 05/30/24 07:23 FiO2 21 05/28/24 09:27 Intake & Output 05/29/24 05/30/24 05/30/24 18:59 06:59 18:59 Output Total 700 300 Balance -700 -300 Output: Urine 700 300 Other: Voiding Method External Catheter External Catheter # Voids 300 - Labs CBC & Chem 7: 05/30/24 04:06 05/30/24 04:06 Labs: Abnormal Lab Results - Last 24 Hours (Table) 05/29/24 05/29/24 05/29/24 Range/Units 06:15 17:02 20:48 RBC 2.76 L (4.40-5.60) X 10*6/uL Hgb 7.5 L (13.0-17.0) g/dL Hct 24.6 L (39.6-50.0) % MCHC 30.5 L (32.0-37.0) g/dL Plt Count 532 H (140-440) X 10*3/uL MPV (9.5-12.2) FL Immature Gran # 0.09 H (0.00-0.04) X 10*3/uL Glucose (70-110) mg/dL POC Glucose (mg/dL) 234 H 249 H (70-110) mg/dL Calcium (8.7-10.3) mg/dL 05/30/24 05/30/24 05/30/24 Range/Units 04:06 04:06 06:12 RBC 2.73 L (4.40-5.60) X 10*6/uL Hgb 7.5 L (13.0-17.0) g/dL Hct 24.5 L (39.6-50.0) % MCHC 30.6 L (32.0-37.0) g/dL Plt Count 568 H (140-440) X 10*3/uL MPV 9.4 L (9.5-12.2) FL Immature Gran # 0.11 H (0.00-0.04) X 10*3/uL Glucose 301 H (70-110) mg/dL POC Glucose (mg/dL) 300 H (70-110) mg/dL Calcium 8.0 L (8.7-10.3) mg/dL Microbiology - Last 24 Hours (Table) 05/24/24 19:29 Blood Culture - Final Blood 05/24/24 19:29 Blood Culture - Final Blood 05/24/24 19:41 Gram Stain - Final Leg - Right Wound Culture - Final Enterobacter cloacae Complex Klebsiella pneumoniae Proteus mirabilis Pseudomonas aeruginosa
[2024-05-31] MEDS: NIFEdipine 10 MG CAP PO SCH ×2 (00:49→09:42)
[2024-05-31 05:41] LABS: Glucose,Whole Blood 361 mg/dL (70-110)
[2024-05-31 11:35] LABS: Glucose,Whole Blood 366 mg/dL (70-110)
--- NOTE | 2024-05-31 15:52 | P.PN ---
Subjective Progress Note Date: 05/30/24 Principal diagnosis: Reason for follow-up is right BKA stump infection Patient is a 58-year-old -[place] male with a past medical history significant for diabetes mellitus hypertension hyperlipidemia atrial fibrillation coronary artery disease/MO patient recently did have right lower extremity fasciotomy and below the knee potation done about a month ago, patient now presenting to the hospital with right BKA wound dehiscence and foul-smelling drainage admitted for right BKA stump infection.Patient was taken to the OR and the patient is status post right vwhjw-taf-jwso amputation completed on 05/26/2024 On today's evaluation that is 05/30/2024, Patient is afebrile patient is currently on room air and denies having any shortness of breath, the patient denies any chest pain or cough, the patient denies any nausea vomiting did not have any abdominal pain and no diarrhea, pain to the right AKA stump is currently controlled Patient white count is 9.49, creatinine is 1.0 Objective - Vital Signs Vital signs: Vital Signs Temp 98.0 F 05/30/24 14:00 Pulse 66 05/30/24 14:00 Resp 18 05/30/24 14:00 BP 163/90 05/30/24 14:00 Pulse Ox 99 05/30/24 14:00 FiO2 21 05/28/24 09:27 Intake & Output 05/30/24 05/30/24 05/31/24 06:59 18:59 06:59 Output Total 300 800 Balance -300 -800 Weight 63.503 kg Output: Urine 300 800 Other: Voiding Method External Catheter - Exam GENERAL DESCRIPTION: Middle-age male lying in bed in no distress RESPIRATORY SYSTEM: Unlabored breathing , decreased breath sounds at bases HEART: S1 S2 regular rate and rhythm , ABDOMEN: Soft , no tenderness EXTREMITIES: Right AKA stump is currently dressed - Labs CBC & Chem 7: 05/30/24 04:06 05/30/24 04:06 Labs: Abnormal Lab Results - Last 24 Hours (Table) 05/30/24 05/30/24 05/30/24 Range/Units 04:06 04:06 06:12 RBC 2.73 L (4.40-5.60) X 10*6/uL Hgb 7.5 L (13.0-17.0) g/dL Hct 24.5 L (39.6-50.0) % MCHC 30.6 L (32.0-37.0) g/dL Plt Count 568 H (140-440) X 10*3/uL MPV 9.4 L (9.5-12.2) FL Immature Gran # 0.11 H (0.00-0.04) X 10*3/uL Glucose 301 H (70-110) mg/dL POC Glucose (mg/dL) 300 H (70-110) mg/dL Calcium 8.0 L (8.7-10.3) mg/dL 05/30/24 05/30/24 05/30/24 Range/Units 11:45 16:33 21:08 RBC (4.40-5.60) X 10*6/uL Hgb (13.0-17.0) g/dL Hct (39.6-50.0) % MCHC (32.0-37.0) g/dL Plt Count (140-440) X 10*3/uL MPV (9.5-12.2) FL Immature Gran # (0.00-0.04) X 10*3/uL Glucose (70-110) mg/dL POC Glucose (mg/dL) 295 H 299 H 238 H (70-110) mg/dL Calcium (8.7-10.3) mg/dL Microbiology - Last 24 Hours (Table) 05/24/24 19:29 Blood Culture - Final Blood 05/24/24 19:29 Blood Culture - Final Blood 05/24/24 19:41 Gram Stain - Final Leg - Right Wound Culture - Final Enterobacter cloacae Complex Klebsiella pneumoniae Proteus mirabilis Pseudomonas aeruginosa Assessment and Plan (1) Surgical site infection Current Visit: Yes Status: Acute Code(s): T81.49XA - INFECTION FOLLOWING A PROCEDURE, OTHER SURGICAL SITE, INIT SNOMED Code(s): 06284589 Plan: 1patient presented to hospital with increasing pain nonhealing wound to the right BKA stump with drainage concerning for surgical site infection will need to cover for the gram-positive skin rose as well as gram-negative pathogen. 2patient local culture grew Enterobacter Klebsiella and Proteus, patient status post right zcipc-xdf-abie amputation, 3- patient is afebrile white count has been normal, to continue with the cefepi me while inpatient however no need for IV antibiotics on discharge Dictation was produced using [employer] dictation software. please excuse any grammatical, word or spelling errors.
--- NOTE | 2024-05-31 15:53 | P.PN ---
Subjective Progress Note Date: 05/31/24 Principal diagnosis: Reason for follow-up is right BKA stump infection Patient is a 58-year-old -[place] male with a past medical history significant for diabetes mellitus hypertension hyperlipidemia atrial fibrillation coronary artery disease/NC patient recently did have right lower extremity fasciotomy and below the knee potation done about a month ago, patient now presenting to the hospital with right BKA wound dehiscence and foul-smelling drainage admitted for right BKA stump infection.Patient was taken to the OR and the patient is status post right runnb-abi-fynr amputation completed on 05/26/2024 On today's evaluation that is 05/31/2024, patient has been afebrile, patient is breathing comfortably and is currently on room air, patient does not seem to be any distress he was sleepy did not answer any question no vomiting or diarrhea has been reported. No new lab has been obtained today Objective - Vital Signs Vital signs: Vital Signs Temp 97.5 F L 05/31/24 07:25 Pulse 69 05/31/24 08:00 Resp 18 05/31/24 08:00 BP 179/77 05/31/24 07:25 Pulse Ox 99 05/31/24 07:25 FiO2 21 05/28/24 09:27 Intake & Output 05/30/24 05/31/24 05/31/24 18:59 06:59 18:59 Output Total 800 525 Balance -800 -525 Weight 63.503 kg Output: Urine 800 525 Other: Voiding Method External Catheter External Catheter - Exam GENERAL DESCRIPTION: Middle-age male lying in bed in no distress RESPIRATORY SYSTEM: Unlabored breathing , decreased breath sounds at bases HEART: S1 S2 regular rate and rhythm , ABDOMEN: Soft , no tenderness EXTREMITIES: Right AKA stump is currently dressed - Labs CBC & Chem 7: 05/30/24 04:06 05/30/24 04:06 Labs: Abnormal Lab Results - Last 24 Hours (Table) 05/30/24 05/30/24 05/31/24 Range/Units 16:33 21:08 05:40 POC Glucose (mg/dL) 299 H 238 H 361 H (70-110) mg/dL 05/31/24 Range/Units 11:34 POC Glucose (mg/dL) 366 H (70-110) mg/dL Assessment and Plan (1) Surgical site infection Current Visit: Yes Status: Acute Code(s): T81.49XA - INFECTION FOLLOWING A PROCEDURE, OTHER SURGICAL SITE, INIT SNOMED Code(s): 65151831 Plan: 1patient presented to hospital with increasing pain nonhealing wound to the right BKA stump with drainage concerning for surgical site infection will need to cover for the gram-positive skin rose as well as gram-negative pathogen. 2patient local culture grew Enterobacter Klebsiella and Proteus, patient status post right fxruj-ogx-eswj amputation, 3- patient is afebrile white count has been normal, with infected port removed and patient not bacteremic will discontinue cefepime monitor the patient closely off antibiotic Dictation was produced using [employer] dictation software. please excuse any grammatical, word or spelling errors. Time with Patient: Less than 30
[2024-05-31 16:37] LABS: Glucose,Whole Blood 246 mg/dL (70-110)
[2024-05-31 20:59] LABS: Glucose,Whole Blood 177 mg/dL (70-110)
[2024-05-31] MEDS: INSULIN DETEMIR (LEVEMIR) 100 UNIT/ML SYR SQ SCH (22:04)
--- NOTE | 2024-06-01 05:18 | P.PN ---
Subjective Progress Note Date: 05/31/24 This is a 58-year-old male who is admitted for infected wound. Patient had a recent BKA which got infected on the right side. Patient had this amputation about a month ago patient appears to be on doxycycline and Bactrim at home. Patient also found to be in acute renal failure with creatinine going up to 1.8 and serum potassium about 5.6 yesterday repeat labs are not available at this time. Patient is complaining of pain in the infected site area. 05/26/2024 Patient is seen in follow-up this morning scheduled to undergo debridement and possible AKA on the right lower extremity with vascular surgery Dr. Dennison today. Currently n.p.o. and will await surgical report. Patient's blood pressures have been uncontrolled and elevated and home medications being reviewed and resumed. Sodium continues to be low with kidney function slightly improved and potassium mildly elevated. Recommend low potassium diet and will follow-up with repeat labs. 05/27/2024 Patient is seen and evaluated in follow-up status post AKA on the right with vascular surgery. Patient's blood pressure continues to be elevated and home medications reviewed and resumed including clonidine and oral hydralazine. Blood pressure appears to be slightly improved today. Patient is continued on antibiotics with infectious disease following and awaiting finalized cultures as well. Continue with local wound care per vascular surgery and will also need to discuss further with case management regarding discharge planning as patient reports he is homeless and does not currently have a primary care provider. Patient may need ECF for continued wound care and possible IV antibiotics. Patient is afebrile with no reports of chest pain or shortness of breath. Patient is tolerating diet with no reported nausea or vomiting. Continue monitoring Accu-Cheks before meals and at bedtime and adjust insulins accordingly. 05/30/2024 Patient is seen in follow-up today with no acute overnight issues noted. Patient reports his pain is less intense and is status post AKA. Patient has been cleared by vascular surgery currently awaiting insurance Auth at [facility]. Case management following and has been submitted although pending. Patient was awaiting repeat reevaluation from PT/OT therapy. Patient is continued on IV antibiotics with infectious disease following and will not require antibiotics on discharge. Continue local wound care per vascular surgery recommendations. Blood sugars mildly elevated and will continue current regimen and adjust accordingly. 05/31/2024 Patient is seen in follow-up today currently awaiting insurance authorization for [facility] status post BKA. Blood pressure slightly improved and will continue current regimen although will add chlorthalidone. Patient blood sugars also mildly elevated will adjust insulins including long-acting and Premeal insulins. Patient is afebrile with no reports of chest pain or shortness of breath. Patient has been tolerating diet. Review of systems: Constitutional: No reports of fatigue, fever, or chills Cardiovascular: No reports of chest pain or palpitations Respiratory: No reports of shortness of breath or cough GI: No reports of nausea, vomiting, or diarrhea : No reports of dysuria or retention Neurovascular: reports of generalized weakness continued right lower extremity pain although improved since surgery All medications have been reviewed PHYSICAL EXAMINATION: GENERAL: The patient is alert and oriented x3, not in any acute distress. Well developed, well nourished. Elderly appearing HEENT: Pupils are round and equally reacting to light. EOMI. No scleral icterus. No conjunctival pallor. Normocephalic, atraumatic. No pharyngeal erythema. No thyromegaly. CARDIOVASCULAR: S1 and S2 present. No murmurs, rubs, or gallops. PULMONARY: Chest is clear to auscultation, no wheezing or crackles. ABDOMEN: Soft, nontender, nondistended, normoactive bowel sounds. No palpable organomegaly. MUSCULOSKELETAL: No joint swelling or deformity. EXTREMITIES: No cyanosis, clubbing, or pedal edema. NEUROLOGICAL: Gross neurological examination did not reveal any focal deficits. Diffusely weak SKIN: Right AKA surgical site dressing is dry and intact Assessment and plan: -Infected surgical site area status post BKA about a month ago: Patient on vancomycin and Zosyn at this time awaiting deep and superficial cultures. Status post right AKA, 05/27/2024 -Hyperkalemia: Secondary to losartan and Bactrim, recommend low potassium diet and will follow-up with repeat labs -Hypertension, uncontrolled. Coreg and hydralazine resumed and other blood pressure medications being resumed per vascular surgery -Acute renal failure: Probably prerenal azotemia along with the possibility of acute tubular necrosis continue with IV fluids, this can be secondary to Bactrim and losartan -Type 2 diabetes mellitus uncontrolled elevated blood sugars. Patient will be resumed on home regimen and will adjust insulins accordingly. -Noncompliance outpatient with follow-up, homeless -Peripheral neuropathy, we will cut down the dose of gabapentin because of acute renal failure -GI prophylaxis, Protonix -DVT prophylaxis: Patient will be started on DVT prophylaxis post debridement once cleared by vascular to resume -Full code Plan: Continue antibiotics per ID recommendations and continue with local wound care per vascular surgery as patient is status post AKA. Patient will not require antibiotics on discharge per ID recommendations Continue to monitor blood pressure and adjust medications accordingly. nifedipine added and will add chlorthalidone. Losartan as patient's potassium continues to be elevated Continue with Accu-Cheks before meals and at bedtime and continue current regimen, low potassium consistent carb diet, adjust insulins slightly as blood sugars have remained elevated Case management/social work to follow regarding discharge planning as patient is awaiting insurance authorization to [facility]. Possible discharge planning in the next 24 to 48 hours The impression and plan of care has been dictated by Maty Bedoya, Nurse Practitioner as directed. Dr. Louis MD I have performed a history and examination and MDM of this patient, discussed the same with the dictator, and agree with the dictator's assessment and plan as written ,documented as a scribe. Based on total visit time, I have performed more than 50% of the visit. With no acute overnight issues noted. Objective - Vital Signs Vital signs: Vital Signs Temp 98.2 F 06/01/24 00:43 Pulse 57 L 06/01/24 00:43 Resp 17 06/01/24 00:43 BP 158/77 06/01/24 00:43 Pulse Ox 100 06/01/24 00:43 FiO2 21 05/28/24 09:27 Intake & Output 05/31/24 05/31/24 06/01/24 06:59 18:59 06:59 Output Total 525 Balance -525 Output: Urine 525 Other: Voiding Method External Catheter External Catheter External Catheter # Voids 0 1 # Bowel Movements 1 - Labs CBC & Chem 7: 05/30/24 04:06 05/30/24 04:06 Labs: Abnormal Lab Results - Last 24 Hours (Table) 05/31/24 05/31/24 05/31/24 Range/Units 05:40 11:34 16:35 POC Glucose (mg/dL) 361 H 366 H 246 H (70-110) mg/dL 05/31/24 Range/Units 20:57 POC Glucose (mg/dL) 177 H (70-110) mg/dL
[2024-06-01 05:52] LABS: Glucose,Whole Blood 161 mg/dL (70-110)
[2024-06-01] MEDS: INSULIN ASPART (NovoLOG) 100 UNIT/ML VIAL SQ SCH ×2 (06:40)
[2024-06-01] MEDS: CHLORTHALIDONE 25 MG TAB PO SCH (08:02)
[2024-06-01] MEDS: NIFEdipine XL 30 MG TAB.ER.24 PO SCH (08:04)
[2024-06-01 11:15] LABS: Glucose,Whole Blood 171 mg/dL (70-110)
[2024-06-01 16:38] LABS: Glucose,Whole Blood 173 mg/dL (70-110)
[2024-06-01 20:56] LABS: Glucose,Whole Blood 172 mg/dL (70-110)
[2024-06-02 05:58] LABS: Glucose,Whole Blood 162 mg/dL (70-110)
[2024-06-02 07:27] VITALS: RESP 18
--- NOTE | 2024-06-02 09:15 | P.PN ---
Subjective Progress Note Date: 06/01/24 This is a 58-year-old male who is admitted for infected wound. Patient had a recent BKA which got infected on the right side. Patient had this amputation about a month ago patient appears to be on doxycycline and Bactrim at home. Patient also found to be in acute renal failure with creatinine going up to 1.8 and serum potassium about 5.6 yesterday repeat labs are not available at this time. Patient is complaining of pain in the infected site area. 05/26/2024 Patient is seen in follow-up this morning scheduled to undergo debridement and possible AKA on the right lower extremity with vascular surgery Dr. Dennison today. Currently n.p.o. and will await surgical report. Patient's blood pressures have been uncontrolled and elevated and home medications being reviewed and resumed. Sodium continues to be low with kidney function slightly improved and potassium mildly elevated. Recommend low potassium diet and will follow-up with repeat labs. 05/27/2024 Patient is seen and evaluated in follow-up status post AKA on the right with vascular surgery. Patient's blood pressure continues to be elevated and home medications reviewed and resumed including clonidine and oral hydralazine. Blood pressure appears to be slightly improved today. Patient is continued on antibiotics with infectious disease following and awaiting finalized cultures as well. Continue with local wound care per vascular surgery and will also need to discuss further with case management regarding discharge planning as patient reports he is homeless and does not currently have a primary care provider. Patient may need ECF for continued wound care and possible IV antibiotics. Patient is afebrile with no reports of chest pain or shortness of breath. Patient is tolerating diet with no reported nausea or vomiting. Continue monitoring Accu-Cheks before meals and at bedtime and adjust insulins accordingly. 05/30/2024 Patient is seen in follow-up today with no acute overnight issues noted. Patient reports his pain is less intense and is status post AKA. Patient has been cleared by vascular surgery currently awaiting insurance Auth at [facility]. Case management following and has been submitted although pending. Patient was awaiting repeat reevaluation from PT/OT therapy. Patient is continued on IV antibiotics with infectious disease following and will not require antibiotics on discharge. Continue local wound care per vascular surgery recommendations. Blood sugars mildly elevated and will continue current regimen and adjust accordingly. 05/31/2024 Patient is seen in follow-up today [facility]. Blood pressure slightly improved and will continue current regimen although will add chlorthalidone. Patient blood sugars also mildly elevated will adjust insulins including long-acting and Premeal insulins. Patient is afebrile with no reports of chest pain or shortness of breath. Patient has been tolerating diet. 06/01/2024 Patient seen and waited in follow-up today no overnight issues. BP and blood sugars improving with adjustments to medications. [facility] Per CM it remains pending at this time. Review of systems: Constitutional: No reports of fatigue, fever, or chills Cardiovascular: No reports of chest pain or palpitations Respiratory: No reports of shortness of breath or cough GI: No reports of nausea, vomiting, or diarrhea : No reports of dysuria or retention Neurovascular: reports of generalized weakness continued right lower extremity pain although improved since surgery All medications have been reviewed PHYSICAL EXAMINATION: GENERAL: The patient is alert and oriented x3, not in any acute distress. Well developed, well nourished. Elderly appearing HEENT: Pupils are round and equally reacting to light. EOMI. No scleral icterus. No conjunctival pallor. Normocephalic, atraumatic. No pharyngeal erythema. No thyromegaly. CARDIOVASCULAR: S1 and S2 present. No murmurs, rubs, or gallops. PULMONARY: Chest is clear to auscultation, no wheezing or crackles. ABDOMEN: Soft, nontender, nondistended, normoactive bowel sounds. No palpable organomegaly. MUSCULOSKELETAL: No joint swelling or deformity. EXTREMITIES: No cyanosis, clubbing, or pedal edema. NEUROLOGICAL: Gross neurological examination did not reveal any focal deficits. Diffusely weak SKIN: Right AKA surgical site dressing is dry and intact Assessment and plan: -Infected surgical site area status post BKA about a month ago: Patient on vancomycin and Zosyn at this time awaiting deep and superficial cultures. Status post right AKA, 05/27/2024 -Hyperkalemia: Secondary to losartan and Bactrim, recommend low potassium diet and will follow-up with repeat labs -Hypertension, uncontrolled. Coreg and hydralazine resumed and other blood pressure medications being resumed per vascular surgery -Acute renal failure: Probably prerenal azotemia along with the possibility of acute tubular necrosis continue with IV fluids, this can be secondary to Bactrim and losartan -Type 2 diabetes mellitus uncontrolled elevated blood sugars. Patient will be resumed on home regimen and will adjust insulins accordingly. -Noncompliance outpatient with follow-up, homeless -Peripheral neuropathy, we will cut down the dose of gabapentin because of acute renal failure -GI prophylaxis, Protonix -DVT prophylaxis: Patient will be started on DVT prophylaxis post debridement once cleared by vascular to resume -Full code Plan: Continue antibiotics per ID recommendations and continue with local wound care per vascular surgery as patient is status post AKA. Patient will not require antibiotics on discharge per ID recommendations Continue to monitor blood pressure and adjust medications accordingly. nifedipine added and will add chlorthalidone. Losartan as patient's potassium continues to be elevated Continue with Accu-Cheks before meals and at bedtime and continue current regimen, low potassium consistent carb diet, adjust insulins slightly as blood sugars have remained elevated Case management/social work to follow regarding discharge planning as patient is awaiting insurance authorization to [facility]. Possible discharge planning in the next 24 hours once insurance auth is obtained. The impression and plan of care has been dictated by Maty Bedoya, Nurse Practitioner as directed. Dr. Louis MD I have performed a history and examination and MDM of this patient, discussed the same with the dictator, and agree with the dictator's assessment and plan as written ,documented as a scribe. Based on total visit time, I have performed more than 50% of the visit. With no acute overnight issues noted. Objective - Vital Signs Vital signs: Vital Signs Temp 98.2 F 06/01/24 07:49 Pulse 65 06/01/24 07:49 Resp 18 06/01/24 07:49 BP 172/74 06/01/24 07:49 Pulse Ox 97 06/01/24 07:49 FiO2 21 05/28/24 09:27 Intake & Output 05/31/24 06/01/24 06/01/24 18:59 06:59 18:59 Output Total 1300 Balance -1300 Output: Urine 1300 Other: Voiding Method External Catheter External Catheter External Catheter # Voids 0 1 # Bowel Movements 1 - Labs CBC & Chem 7: 05/30/24 04:06 05/30/24 04:06 Labs: Abnormal Lab Results - Last 24 Hours (Table) 05/31/24 05/31/24 06/01/24 Range/Units 16:35 20:57 05:50 POC Glucose (mg/dL) 246 H 177 H 161 H (70-110) mg/dL 06/01/24 Range/Units 11:14 POC Glucose (mg/dL) 171 H (70-110) mg/dL
[2024-06-02 11:34] LABS: Glucose,Whole Blood 105 mg/dL (70-110)
--- NOTE | 2024-06-02 13:21 | P.PN ---
Subjective Progress Note Date: 06/01/24 Principal diagnosis: Reason for follow-up is right BKA stump infection Patient is a 58-year-old -Citizen Of The [place] male with a past medical history significant for diabetes mellitus hypertension hyperlipidemia atrial fibrillation coronary artery disease/AL patient recently did have right lower extremity fasciotomy and below the knee potation done about a month ago, patient now presenting to the hospital with right BKA wound dehiscence and foul-smelling drainage admitted for right BKA stump infection.Patient was taken to the OR and the patient is status post right [id number] amputation completed on 05/26/2024 On today's evaluation that is 06/01/2024, Patient is afebrile this morning patient denies having any chest pain shortness of breath or cough, the patient is breathing comfortably and currently on room air, patient denies any abdominal pain no diarrhea no nausea no vomiting, pain to the right AKA stump is currently controlled. No new labs were drawn today Objective - Vital Signs Vital signs: Vital Signs Temp 98.2 F 06/01/24 07:49 Pulse 65 06/01/24 07:49 Resp 18 06/01/24 07:49 BP 172/74 06/01/24 07:49 Pulse Ox 97 06/01/24 07:49 FiO2 21 05/28/24 09:27 Intake & Output 05/31/24 06/01/24 06/01/24 18:59 06:59 18:59 Output Total 1300 Balance -1300 Output: Urine 1300 Other: Voiding Method External Catheter External Catheter External Catheter # Voids 0 1 # Bowel Movements 1 - Exam GENERAL DESCRIPTION: Middle-age male lying in bed in no distress RESPIRATORY SYSTEM: Unlabored breathing , decreased breath sounds at bases HEART: S1 S2 regular rate and rhythm , ABDOMEN: Soft , no tenderness EXTREMITIES: Right AKA stump is currently dressed - Labs CBC & Chem 7: 05/30/24 04:06 05/30/24 04:06 Labs: Abnormal Lab Results - Last 24 Hours (Table) 05/31/24 05/31/24 06/01/24 Range/Units 16:35 20:57 05:50 POC Glucose (mg/dL) 246 H 177 H 161 H (70-110) mg/dL 06/01/24 Range/Units 11:14 POC Glucose (mg/dL) 171 H (70-110) mg/dL Assessment and Plan (1) Surgical site infection Current Visit: Yes Status: Acute Code(s): T81.49XA - INFECTION FOLLOWING A PROCEDURE, OTHER SURGICAL SITE, INIT SNOMED Code(s): 21366431 Plan: 1patient presented to hospital with increasing pain nonhealing wound to the right BKA stump with drainage concerning for surgical site infection will need to cover for the gram-positive skin rose as well as gram-negative pathogen. 2patient local culture grew Enterobacter Klebsiella and Proteus, patient status post right [id number] amputation, 3- patient is afebrile white count has been normal, with infected port removed and patient not bacteremic patient antibiotic has been discontinued and is currently being monitored closely off antibiotic Dictation was produced using [employer] dictation software. please excuse any grammatical, word or spelling errors. Time with Patient: Less than 30
--- NOTE | 2024-06-02 13:22 | P.PN ---
Subjective Progress Note Date: 06/02/24 Principal diagnosis: Reason for follow-up is right BKA stump infection Patient is a 58-year-old -[place] male with a past medical history significant for diabetes mellitus hypertension hyperlipidemia atrial fibrillation coronary artery disease/[place] patient recently did have right lower extremity fasciotomy and below the knee potation done about a month ago, patient now presenting to the hospital with right BKA wound dehiscence and foul-smelling drainage admitted for right BKA stump infection.Patient was taken to the OR and the patient is status post right [id number] amputation completed on 05/26/2024 On today's evaluation that is 06/02/2024,the patient denies any fever or any chills, patient is breathing comfortably on room air, the patient denies chest pain shortness of breath and no significant cough, patient denies abdominal pain, no nausea vomiting or diarrhea. Patient denies any worsening pain to the right AKA stump. Patient did not have any lab draw today Objective - Vital Signs Vital signs: Vital Signs Temp 97.7 F 06/02/24 07:27 Pulse 62 06/02/24 07:27 Resp 18 06/02/24 07:27 BP 166/77 06/02/24 07:27 Pulse Ox 97 06/02/24 07:27 FiO2 21 05/28/24 09:27 Intake & Output 06/01/24 06/02/24 06/02/24 18:59 06:59 18:59 Intake Total 920 Output Total 700 400 Balance 220 -400 Intake: Oral 920 Output: Urine 700 400 Other: Voiding Method External Catheter Urinal # Voids 1 # Bowel Movements 1 - Exam GENERAL DESCRIPTION: Middle-age male lying in bed in no distress RESPIRATORY SYSTEM: Unlabored breathing , decreased breath sounds at bases HEART: S1 S2 regular rate and rhythm , ABDOMEN: Soft , no tenderness EXTREMITIES: Right AKA stump is currently dressed - Labs CBC & Chem 7: 05/30/24 04:06 05/30/24 04:06 Labs: Abnormal Lab Results - Last 24 Hours (Table) 06/01/24 06/01/24 06/02/24 Range/Units 16:34 20:54 05:56 POC Glucose (mg/dL) 173 H 172 H 162 H (70-110) mg/dL Assessment and Plan (1) Surgical site infection Current Visit: Yes Status: Acute Code(s): T81.49XA - INFECTION FOLLOWING A PROCEDURE, OTHER SURGICAL SITE, INIT SNOMED Code(s): 15466083 Plan: 1patient presented to hospital with increasing pain nonhealing wound to the right BKA stump with drainage concerning for surgical site infection will need to cover for the gram-positive skin rose as well as gram-negative pathogen. 2patient local culture grew Enterobacter Klebsiella and Proteus, patient status post right [id number] amputation, 3- with infected port removed and patient not bacteremic patient antibiotic has been discontinued, the patient remains to be afebrile and white count is normal will monitor closely off antibiotics Dictation was produced using [employer] dictation software. please excuse any grammatical, word or spelling errors. Time with Patient: Less than 30
[2024-06-02 14:11] VITALS: BP 150/72; PULSE 60; TEMP 97.8
--- NOTE | 2024-06-02 15:11 | P.DS ---
Providers Date of admission: 05/24/24 20:37 Expected date of discharge: 06/02/24 Attending physician: Ruben Rios Consults: 05/24/24 20:34 Consult Physician Urgent Consulting Provider: Tee Batista Consult Reason/Comments: Infected surgical site Do you want consulting provider notified?: Yes Primary care physician: Jade Schroeder, DO Hospital Course: Final diagnosis -Infected surgical site area status post BKA about a month ago: Status post right AKA, 05/27/2024 -Hyperkalemia: Secondary to losartan and Bactrim, recommend low potassium diet and losartan and Bactrim have been discontinued -Hypertension, uncontrolled -Acute renal failure: prerenal azotemia along with the possibility of acute tubular necrosis improved -Noncompliance outpatient with follow-up, homeless -Peripheral neuropathy -GI prophylaxis, Protonix -DVT prophylaxis: Patient will be started on DVT prophylaxis post debridement once cleared by vascular to resume -Full code Discharge disposition Patient is being discharged in a stable condition with guarded prognosis to [facility]. Patient will follow-up with Dr. Schroeder in the outpatient setting upon discharge. Patient is to continue with outpatient follow-up with vascular surgery as scheduled. Total time taken is greater than 35 minutes. Hospital course This is a 58-year-old male who was recently admitted with concerns of infected surgical site of a recent right BKA. Patient was evaluated by infectious disease and started on IV antibiotics and also evaluated by vascular surgery underwent right AKA on 05/27/2024. Patient has been cleared by vascular surgery services and has received adequate antibiotic during hospitalization and will be discharged being closely monitored off antibiotic therapy. Patient does have an extensive hypertensive history along with uncontrolled diabetes and medications have been adjusted. Recommend follow-up repeat labs of CBC, CMP, magnesium to monitor kidney functions and electrolytes. Please refer to other consultation notes for further HPI. Patient will be returning to [facility]. Currently no reports of chest pain, shortness of breath, or palpitations. Patient is afebrile. No reports of nausea or vomiting and patient is tolerating diet. Patient will be going to [facility] today. Guarded prognosis and high risk for readmissions given patient's significant comorbidities and noncompliance. Physical exam: Gen: This is a 58-year-old who is awake, alert and oriented x 3, well-developed, well-nourished, elderly appearing HEENT: Head is atraumatic, normocephalic. Pupils equal, round. Sclerae is anicteric. NECK: Supple. No JVD. No lymphadenopathy. No thyromegaly. LUNGS: Clear to auscultation. No wheezes or rhonchi. No intercostal retractions. HEART: Regular rate and rhythm. No murmur. ABDOMEN: Soft. Thin, bowel sounds are present. No masses. No tenderness. EXTREMITIES: No pedal edema. No calf tenderness. Right AKA noted and surgical dressing is dry and intact NEUROLOGICAL: Patient is awake, alert and oriented x3. Cranial nerves 2 through 12 are grossly intact. Diffusely weak Please refer to medication reconciliation sheet for a list of medications. The impression and plan of care has been dictated by Maty Bedoya, Nurse Practitioner as directed. Dr. Louis MD I have performed a history and examination and MDM of this patient, discussed the same with the dictator, and agree with the dictator's assessment and plan as written ,documented as a scribe. Based on total visit time, I have performed more than 50% of the visit. Patient Condition at Discharge: Stable Plan - Discharge Summary Discharge Rx Participant: Yes New Discharge Prescriptions: New Heparin Sodium,Porcine (1 ml) [Heparin Sodium] 5,000 unit SQ Q8HR each Chlorthalidone [Hygroton] 50 mg PO DAILY tab Insulin Detemir (Levemir) [Levemir] 25 unit SQ HS each INSULIN ASPART (NovoLOG) [NovoLOG (formulary)] 10 unit SQ TID-W/MEALS each NIFEdipine XL [Procardia XL] 60 mg PO Q12HR tab carvediloL [Coreg*] 25 mg PO BID-W/MEALS tab HYDROcodone/APAP 5-325MG [Mico 5-325] 1 each PO Q4HR PRN #6 tab PRN Reason: Pain INSULIN ASPART (NovoLOG) [NovoLOG (formulary)] 0 unit SQ ACHS each Continue Sennosides-Docusate Sodium [Senokot-S] 1 tab PO BID Acetaminophen Tab [Tylenol] 650 mg PO Q4H PRN PRN Reason: Pain cloNIDine HCL [Catapres] 0.2 mg PO TID hydrALAZINE HCL [Apresoline] 100 mg PO TID Gabapentin [Neurontin] 300 mg PO Q8H Doxycycline [Vibramycin] 100 mg PO BID Aspirin EC [Ecotrin Low Dose] 81 mg PO DAILY Discontinued Losartan Potassium [Cozaar] 100 mg PO DAILY Insulin Glargine,Hum.rec.anlog [Lantus Solostar Pen] 20 units SQ HS HYDROcodone/APAP 7.5-325MG [Mico 7.5-325] 1 tab PO Q4H PRN PRN Reason: Pain Insulin Lispro [humaLOG Kwikpen] 5 unit SQ TID-W/MEALS INSULIN LISPRO (HumaLOG) [humaLOG] See Protocol SQ TID-W/MEALS carvediloL [Coreg] 12.5 mg PO BID Sulfamethox-Tmp 800-160Mg [Bactrim DS 800-160 mg] 1 tab PO Q12HR Discharge Medication List Acetaminophen Tab [Tylenol] 650 mg PO Q4H PRN 05/25/24 [History] Aspirin EC [Ecotrin Low Dose] 81 mg PO DAILY 05/25/24 [History] Doxycycline [Vibramycin] 100 mg PO BID 05/25/24 [History] Gabapentin [Neurontin] 300 mg PO Q8H 05/25/24 [History] Sennosides-Docusate Sodium [Senokot-S] 1 tab PO BID 05/25/24 [History] cloNIDine HCL [Catapres] 0.2 mg PO TID 05/25/24 [History] hydrALAZINE HCL [Apresoline] 100 mg PO TID 05/25/24 [History] Chlorthalidone [Hygroton] 50 mg PO DAILY tab 06/02/24 [Rx] HYDROcodone/APAP 5-325MG [Mico 5-325] 1 each PO Q4HR PRN #6 tab 06/02/24 [Rx] Heparin Sodium,Porcine (1 ml) [Heparin Sodium] 5,000 unit SQ Q8HR each 06/02/24 [Rx] INSULIN ASPART (NovoLOG) [NovoLOG (formulary)] 0 unit SQ ACHS each 06/02/24 [Rx] INSULIN ASPART (NovoLOG) [NovoLOG (formulary)] 10 unit SQ TID-W/MEALS each 06/02/24 [Rx] Insulin Detemir (Levemir) [Levemir] 25 unit SQ HS each 06/02/24 [Rx] NIFEdipine XL [Procardia XL] 60 mg PO Q12HR tab 06/02/24 [Rx] carvediloL [Coreg*] 25 mg PO BID-W/MEALS tab 06/02/24 [Rx] Follow up Appointment(s)/Referral(s): Jade Schroeder DO [Primary Care Provider] - 1-2 days Melida Green [NON-STAFF] - As Needed (Stump telegraph service clerk and rigid dressing) Estela Hess DO [STAFF PHYSICIAN] - 1 Week Activity/Diet/Wound Care/Special Instructions: Return [place] Activity as tolerated Continue with diabetic diet with Accu-Cheks before meals and at bedtime Continue with sliding scale, Premeal's, and long-acting at night NovoLog sliding scale 0-150 equals 0 units 151-200 equals 2 units 201-250 equals 4 units 251-300 equals 6 units 301-350 equals 8 units 351-400 equals 10 units Please notify provider if blood sugar is 400 or above Follow-up with vascular surgery outpatient Discharge Disposition: TRANSFER TO SNF/ECF
--- NOTE | 2024-06-20 16:02 | CDI ---
Documentation Clarification Form Date: 06/20/24 From: SHELLEY Garcia Admit Date: 05/24/2024 08:37:00 PM Patient Name: Benny Ladd Visit Number: [id number] Discharge Date: 06/02/2024 04:40:00 PM ATTENTION: The Clinical Documentation Specialists (CDI) and [facility] Coding Staff appreciate your assistance in clarifying documentation. Please respond to the clarification below the line at the bottom and electronically sign. The CDI & [facility] Coding staff will review the response and follow-up if needed. Please note: Queries are made part of the Legal Health Record. If you have any questions, please contact the author of this message via ITS. Doctor/Provider: Stephen Dennison There is documentation of a right above knee amputation dated 05/26/24. Additional clarification is requested. History/Risk Factors: Patient is a 58-year-old male with a longstanding history of diabetes mellitus, tobacco use and some degree of noncompliance. He is status post surgical revascularization of the right lower extremity. He had recently presented with nonhealing wound of the right foot and workup demonstrated the patient not to be a revascularization candidate due to severe atherosclerotic disease at the calf and foot level and the patient underwent a right below the knee amputation with the understanding that there was a possibility that this would not heal and would require [id number] amputation. Clinical Indicators: Unfortunately while the skin and subcutaneous tissues survived the muscles went on to necrosis. Patient now requires [id number] amputation. Treatment: Revision of right BKA to AKA Can you please clarify level of upper leg (femur) attachment? [ ] High (proximal) [ ] Mid [ x] Low (distal) [ ] Other, please specify [ ] Unable to determine MTDD
== END 2024-06-02 16:40 | DRG 475 ==
LOC: EC 19:07 → 4SSUR 20:37
PROVIDERS: ADMIT Hospitalist; ATTEND Hospitalist
PROC: 0Y6C0Z3 Detachment at Right Upper Leg, Low, Open Approach (ICD-10-PCS; principal; 2024-05-26 12:30)
DX: T87.54 Necrosis of amputation stump, left lower extremity (principal); I70.92 Chronic total occlusion of artery of the extremities; Z59.00 Homelessness unspecified; N17.9 Acute kidney failure, unspecified; T87.43 Infection of amputation stump, right lower extremity; Y83.5 Amputation of limb(s) as the cause of abnormal reaction of the patient, or of later complication, without mention of misadventure at the time of the procedure; E11.51 Type 2 diabetes mellitus with diabetic peripheral angiopathy without gangrene; E87.5 Hyperkalemia; E11.65 Type 2 diabetes mellitus with hyperglycemia; E11.42 Type 2 diabetes mellitus with diabetic polyneuropathy; E78.5 Hyperlipidemia, unspecified; I25.10 Atherosclerotic heart disease of native coronary artery without angina pectoris; I48.91 Unspecified atrial fibrillation; I10 Essential (primary) hypertension; Z79.01 Long term (current) use of anticoagulants; Z79.02 Long term (current) use of antithrombotics/antiplatelets; Z79.4 Long term (current) use of insulin; Z79.899 Other long term (current) drug therapy; Z87.891 Personal history of nicotine dependence; I25.2 Old myocardial infarction; T87.81 Dehiscence of amputation stump; Z79.82 Long term (current) use of aspirin; Z91.199 Patient's noncompliance with other medical treatment and regimen due to unspecified reason
CPT/HCPCS: 36415; 36430; 64445; 80048; 80053; 83605; 83735; 85025; 85027; 85610; 85730; 86850; 86900; 86901; 86920; 87040; 87070; 87077; 87186; 87205; 93005; 94760; 96365; 96366; 96367; 99285

== ENCOUNTER → 2024-11-07 | Day surgery (SDC) | payer MEDICARE, OTHER ==
[2024-11-03 16:03] VITALS: BMI 29.7
[~2024-11-07] MED LIST changes: +DEXAMETHASONE SOD PHOSPHATE 4 MG/ML 1 ML VIAL IV ONE; +GLYCOPYRROLATE 0.2 MG/ML 2 ML VIAL ONE; +LIDOCAINE 1% (10MG/ML) FOR IV START INTRADERMA PRN; -LIDOCAINE 1% 20 ML VIAL (10MG/ML) FOR IV START INTRADERMA PRN; +LIDOCAINE 1% INJ 10MG/ML (20 ML MDV) ONE; +MIDAZOLAM 2 MG/2 ML VIAL IV PRN; +MIDAZOLAM 2 MG/2 ML VIAL ONE; -ONDANSETRON 4 MG/2 ML VIAL IVP PRN; +PROPOFOL 10 MG/ML 20 ML VIAL IV ONE; +Pre Op ABX Message 1 EACH MISC MISCELLANE ONE; +ceFAZolin 1 GM/50 ML BAG (PMX) ONE; -ceFAZolin IN SWFI 2 GM/20 ML SYRINGE IVP ONE; +ePHEDrine 50 MG/ML 1 ML VIAL ONE; +fentaNYL (PF) 50 MCG/ML 2 ML AMP IVP PRN; +fentaNYL (PF) 50 MCG/ML 2 ML AMP ONE
[2024-11-07 06:56] LABS: Glucose,Whole Blood 354 mg/dL (70-110)
[2024-11-07] MEDS: IV FLUID CONTINUATION 1,000 ML IV ONE ×2 (06:56→11:37)
[2024-11-07] MEDS: LACTATED RINGERS 1,000 ML IV SCH (06:56)
[2024-11-07] MEDS: ONDANSETRON 4 MG/2 ML VIAL IVP ONE (07:30)
[2024-11-07] MEDS: INSULIN ASPART (NovoLOG) 100 UNIT/ML VIAL SQ ONE (07:30)
[2024-11-07] MEDS: SODIUM CHLORIDE 0.9% 50 ML with ceFAZolin 2,000 MG IV ONE (07:40)
[2024-11-07 08:52] VITALS: TEMP 97.4
[2024-11-07 08:59] LABS: Glucose,Whole Blood 275 mg/dL (70-110)
--- NOTE | 2024-11-07 09:11 | P.OP ---
Date of Procedure: 11/07/24 Preoperative Diagnosis: Nonhealing ulceration dorsal surface in the lateral aspect of the left foot Postoperative Diagnosis: Same. Procedure(s) Performed: 1: Sharp excisional debridement wound dorsal surface left foot measuring 7.5 x 6 cm. 2: Sharp excisional debridement wound dorsal surface left foot measuring 6 cm x 2.5 cm 3: Application of skin substitute to both wounds. 4: Application of negative pressure wound VAC system. Anesthesia: TRE Surgeon: Stephen Dennison Estimated Blood Loss (ml): 5 Pathology: none sent Condition: stable Disposition: floor Indications for Procedure: Patient is a 59-year-old male with a long history of peripheral vascular disease as well as diabetic vascular disease who presented with nonhealing ulceration of the dorsum of the foot and lateral aspect of the foot. He is status post amputation of the great toe which has healed. He has also undergone amputation of the second toe with delayed healing noted. Patient is not offered excisional debridement as well as application of skin substitute. The procedure, risk and benefits were discussed. All questions were answered patient's satisfaction. Patient wishes to proceed. Operative Findings: Patient brought the op room placed in the supine position administered general endotracheal anesthesia administered by the department of anesthesiology. Patient received intravenously administered prophylactic antibiotics in the perioperative phase. Patient's left lower extremity was sterilely prepped and draped in usual manner. Utilizing surgical scalpel the wound on the dorsum as well as the lateral aspect of the foot was debrided of eschar type material. There is no evidence of undermining or tunneling. Some evidence of wound healing is noted along the periphery of both wounds however the central portion of both wounds was not is pink and healthy. Utilizing a surgical scrub brush the wound was further debrided on the dorsum down to the tendon level and into the subcutaneous tissues on the lateral wound. Kerecis was cut to the appropriate size and placed on each wound and secured with 4-0 chromic suture. A wound VAC was then placed utilizing a black sponge on both wounds and good negative pressure was achieved. Patient tolerated procedure well was taken to the recovery area in satisfactory and stable condition.
[2024-11-07 10:50] LABS: Glucose,Whole Blood 208 mg/dL (70-110)
[2024-11-07] MEDS: SODIUM CHLORIDE 0.9% 1,000 ML IV ONE (11:41)
[2024-11-07 12:11] VITALS: BP 144/74; PULSE 85; RESP 14
== END ==
LOC: OR 06:18
PROVIDERS: ATTEND Surgery
DX: E11.621 Type 2 diabetes mellitus with foot ulcer (principal); L97.529 Non-pressure chronic ulcer of other part of left foot with unspecified severity; E11.51 Type 2 diabetes mellitus with diabetic peripheral angiopathy without gangrene; Z79.4 Long term (current) use of insulin; Z79.84 Long term (current) use of oral hypoglycemic drugs; I10 Essential (primary) hypertension
CPT/HCPCS: 15004; 15275; J2250; J2405; J0690 ×2; J2003; J3010; J2704; J1596

== ENCOUNTER 2024-11-10 17:18 | Inpatient (IN) | payer MEDICARE, OTHER ==
[2024-11-10] MEDS ORDERED: NALOXONE 0.4 MG/ML 1 ML VIAL IV PRN (17:57)
--- NOTE | 2024-11-10 18:02 | ED ---
General Adult HPI - General Chief complaint: Extremity Injury, Lower Stated complaint: pre admit eval Time Seen by Provider: 11/10/24 17:20 Source: patient, EMS, RN notes reviewed, old records reviewed Mode of arrival: EMS Limitations: no limitations - History of Present Illness Initial comments: 59-year-old male with peripheral vascular disease with planned femoral bypass scheduled for November 14 and a nonhealing wound and wound VAC to the left foot presenting for evaluation and cardiac clearance prior to his operation. Anesthesia requested cardiology evaluation and clearance prior to this planned procedure for Thursday. Patient will require admission for evaluation as outpatient clearance is not possible going into the weekend. Patient himself has no complaints. - Related Data Home Medications Medication Instructions Recorded Confirmed Acetaminophen Tab [Tylenol] 650 mg PO Q4H PRN 05/25/24 11/08/24 Aspirin EC [Ecotrin Low Dose] 81 mg PO DAILY 05/25/24 11/08/24 Gabapentin [Neurontin] 300 mg PO Q8H 05/25/24 11/08/24 Sennosides-Docusate Sodium 1 tab PO BID 05/25/24 11/08/24 [Senokot-S] cloNIDine HCL [Catapres] 0.2 mg PO TID 05/25/24 11/08/24 Amino Acids/Protein Hydrolys 30 ml PO Q8H 11/04/24 11/08/24 [Pro-Stat Awc Liquid] Chlorthalidone [Hygroton] 25 mg PO DAILY 11/04/24 11/08/24 Ezetimibe [Zetia] 10 mg PO HS 11/04/24 11/08/24 HYDROcodone/APAP 7.5-325MG [Musella 1 tab PO Q4H PRN 11/04/24 11/08/24 7.5-325] Insulin Glargine (Lantus) [Lantus 12 unit SQ HS 11/04/24 11/08/24 Vial] Magnesium Oxide [Mag-Ox] 400 mg PO DAILY 11/04/24 11/08/24 NIFEdipine XL [Procardia XL] 60 mg PO Q12HR 11/04/24 11/08/24 hydroCHLOROthiazide [Hydrodiuril] 25 mg PO DAILY 11/04/24 11/08/24 polyethylene glycoL 3350 [Miralax] 17 gm PO DAILY PRN 11/04/24 11/08/24 Insulin Lispro [humaLOG Kwikpen] See Protocol SQ QID 11/08/24 11/08/24 Previous Rx's Medication Instructions Recorded carvediloL [Coreg*] 25 mg PO BID-W/MEALS tab 06/02/24 Allergies Allergy/AdvReac Type Severity Reaction Status Date / Time atorvastatin [From Lipitor] Allergy Swelling Verified 11/10/24 17:35 ibuprofen Allergy Swelling Verified 11/10/24 17:35 pregabalin [From Lyrica] Allergy Swelling Verified 11/10/24 17:35 Review of Systems ROS Statement: Those systems with pertinent positive or pertinent negative responses have been documented in the HPI. ROS Other: All systems not noted in ROS Statement are negative. Past Medical History Past Medical History: Atrial Fibrillation, Asthma, Coronary Artery Disease (CAD) , Heart Failure, Diabetes Mellitus, Deep Vein Thrombosis (DVT), Eye Disorder, Hyperlipidemia, Hypertension, Myocardial Infarction (PR), Pneumonia, Renal Disease, Vascular Disorder Additional Past Medical History / Comment(s): wound left foot-wound care [facility],[place] lt foot-able to stand/pivot transfers,obtaining therapy at [facility] and learning to walk with prosthesis on rt AKA but unable to wt bear currently on left foot w./ wound,hx uvitis glaucoma rt eye, PVD, dvt to lower left leg,anemia,acute kidney failure in past,paroxysmal afib Last Myocardial Infarction Date:: unknown History of Any Multi-Drug Resistant Organisms: MRSA Date of last positivie culture/infection: 06/30/20 MDRO Source:: Left Leg Past Surgical History: Hernia Repair, Orthopedic Surgery Additional Past Surgical History / Comment(s): aortgram w/ runnoff, eye surg, bilateral knee SX, left vein stripping in 02/2020 x2, vein graft and toe amputation rt bka 2023,rt AKA ,amputation 1rst & 2nd digits left foot Past Anesthesia/Blood Transfusion Reactions: No Reported Reaction Additional Past Anesthesia/Blood Transfusion Reaction / Comment(s): no problems with prior blood transfusion Past Psychological History: No Psychological Hx Reported Smoking Status: Former smoker Past Alcohol Use History: Rare Past Drug Use History: None Reported - Past Family History Mother History Unknown: Yes Brother(s) Family Medical History: COPD Additional Family Medical History / Comment(s): passed from COPD Father Family Medical History: Myocardial Infarction (PR) Additional Family Medical History / Comment(s): passed from PR General Exam Limitations: no limitations General appearance: alert, in no apparent distress Head exam: Present: atraumatic, normocephalic Eye exam: Present: normal appearance, PERRL Respiratory exam: Present: normal lung sounds bilaterally. Absent: respiratory distress Cardiovascular Exam: Present: regular rate, normal rhythm GI/Abdominal exam: Present: soft. Absent: distended, tenderness, guarding Neurological exam: Present: alert, oriented X3 Psychiatric exam: Present: normal affect, normal mood Course Vital Signs 11/10/24 17:25 Pulse Rate 54 L Respiratory 16 Rate Blood Pressure 133/69 O2 Sat by Pulse 97 Oximetry Medical Decision Making - Medical Decision Making Was pt. sent in by a medical professional or institution (JAKY De La Fuente, DECORATING SUPERVISOR, urgent care, hospital, or intermediate...) When possible be specific @Sent in by vascular surgery for preoperative clearance Did you speak to anyone other than the patient for history (EMS, parent, family, police, friend...)? What history was obtained from this source @ -No Did you review nursing and triage notes (agree or disagree)? Why? @ -I reviewed and agree with nursing and triage notes Were old charts reviewed (outside hosp., previous admission, EMS record, old EKG, old radiological studies, urgent care reports/EKG's, intermediate records)? Report findings @ -No old charts were reviewed Differential Diagnosis peripheral vascular disease, nonhealing wound, sepsis EKG interpreted by me (3pts min.). @Sinus bradycardia LVH, rate of 54, OR interval 168, QRS duration 94, QTc 425 X-rays interpreted by me (1pt min.). @ -None done CT interpreted by me (1pt min.). @ -None done U/S interpreted by me (1pt. min.). @ -None done What testing was considered but not performed or refused? (CT, X-rays, U/S, labs)? Why? @ -None What meds were considered but not given or refused? Why? @ -None Did you discuss the management of the patient with other professionals ( professionals i.e. JAKY De La Fuente, DECORATING SUPERVISOR, lab, RT, psych nurse, social work professor, gauge and weigh machine operator, teacher, client sales and service officer, corrections caseworker)? Give summary @ -Case discussed with [facility] who will admit, case discussed with vascular surgery Dr. Dennison Was smoking cessation discussed for >3mins.? @ -No Was critical care preformed (if so, how long)? @ -No Were there social determinants of health that impacted care today? How? (Homelessness, low income, unemployed, alcoholism, drug addiction, transportation, low edu. Level, literacy, decrease access to med. care, fpc, rehab)? @ -No Was there de-escalation of care discussed even if they declined (Discuss DNR or withdrawal of care, Hospice)? DNR status @ -No What co-morbidities impacted this encounter? (DM, HTN, Smoking, COPD, CAD, Cancer, CVA, ARF, Chemo, Hep., AIDS, mental health diagnosis, sleep apnea, morbid obesity)? @ -[Peripheral vascular disease. Was patient admitted / discharged? Hospital course, mention meds given and route, prescriptions, significant lab abnormalities, going to OR and other pertinent info. @ -Patient requiring cardiac clearance prior to femoral bypass surgery planned for Thursday. Requested the patient be admitted for this urgent evaluation. Admitted to internal medicine with cardiology and vascular surgery on consult. IV will be established in the emergency department and laboratory status will be obtained these results are pending. Patient himself has no complaints. Undiagnosed new problem with uncertain prognosis? @ -[No Drug Therapy requiring intensive monitoring for toxicity (Heparin, Nitro, Insulin, Cardizem)? @ -No Were any procedures done? @ -No Diagnosis/symptom? @ -Peripheral vascular disease, nonhealing wound left foot Acute, or Chronic, or Acute on Chronic? @ -Acute on chronic Uncomplicated (without systemic symptoms) or Complicated (systemic symptoms)? @ complicated Side effects of treatment? @ -No Exacerbation, Progression, or Severe Exacerbation? @ -No Poses a threat to life or bodily function? How? (Chest pain, [place], PR, pneumonia, PE, COPD, DKA, ARF, appy, cholecystitis, CVA, Diverticulitis, Homicidal, Suicidal, threat to staff... and all critical care pts) @ -Yes, limb ischemia, sepsis Disposition Clinical Impression: PVD (peripheral vascular disease) Disposition: ADMITTED IP TO THIS HOSP Condition: Stable Is patient prescribed a controlled substance at d/c from ED?: No Referrals: Jade Schroeder DO [Primary Care Provider] - 1-2 days Time of Disposition: 18:02
[2024-11-10 18:23] LABS: Basophils % (A) 0 %; Eosinophils # (A) 0.4 k/uL (0-0.7); Eosinophils % (A) 3 %; HCT 31.6 % (39.0-53.0); HGB 10.2 gm/dL (13.0-17.5); Lymphocytes # (A) 1.6 k/uL (1.0-4.8); Lymphocytes % (A) 12 %; MCH 27.5 pg (25.0-35.0); MCHC 32.3 g/dL (31.0-37.0); MCV 85.1 fL (80.0-100.0); Mean Platelet Volume 6.8; Monocytes # (A) 0.6 k/uL (0-1.0); Monocytes % (A) 5 %; Neutrophils # (A) 10.1 k/uL (1.3-7.7); Neutrophils % (A) 79 %; Platelet Count 403 k/uL (150-450); RBC 3.71 m/uL (4.30-5.90); RDW 13.3 % (11.5-15.5); WBC 12.9 k/uL (3.8-10.6)
[2024-11-10 18:38] LABS: Prothrombin Time 11.4 sec (10.0-12.5)
[2024-11-10 18:44] LABS: Partial Thromboplastin Time 19.2 sec (22.0-30.0)
[2024-11-10 19:12] LABS: ALT 17 U/L (4-49); African American GFR (CKD) 77 (>60 ml/min/1.73 sqM); Albumin 3.6 g/dL (3.5-5.0); Albumin/Globulin Ratio 0.9; Anion Gap 11 mmol/L; Blood Urea Nitrogen 53 mg/dL (9-20); Calcium 9.2 mg/dL (8.4-10.2); Carbon Dioxide 23 mmol/L (22-30); Chloride 98 mmol/L (98-107); Globulin 3.8 g/dL; Glucose 128 mg/dL (74-99); Non-African American GFR(CKD) 67 (>60 ml/min/1.73 sqM); Sodium 132 mmol/L (137-145); Total Bilirubin 0.8 mg/dL (0.2-1.3); Total Protein 7.4 g/dL (6.3-8.2)
[2024-11-10 19:17] LABS: AST 27 U/L (17-59); Alkaline Phosphatase 87 U/L (38-126); Potassium 5.4 mmol/L (3.5-5.1)
[2024-11-10 20:51] LABS: Glucose,Whole Blood 245 mg/dL (70-110)
[2024-11-10] MEDS ORDERED: polyethylene glycoL 3350 17 GM POWD.PACK PO PRN (21:44)
[2024-11-10] MEDS: INSULIN LISPRO (HumaLOG) 100 UNIT/ML 10 mL VL SQ SCH (22:51)
[2024-11-10] MEDS: carvediloL 12.5 MG TAB PO SCH (22:52)
[2024-11-10] MEDS: INSULIN GLARGINE (LANTUS) 100 UNIT/ML SYR SQ SCH (22:52)
[2024-11-10] MEDS: GABAPENTIN 300 MG CAP PO SCH (22:52)
[2024-11-10] MEDS: cloNIDine HCL 0.2 MG TAB PO SCH (22:52)
[2024-11-10] MEDS: HYDROcodone/APAP 5-325MG 1 EACH TAB PO PRN (22:52)
[2024-11-10] MEDS: SENNOSIDES-DOCUSATE SODIUM 1 EACH TAB PO SCH (22:53)
[2024-11-11] MEDS: EZETIMIBE 10 MG TAB PO SCH (01:16)
[2024-11-11 06:15] LABS: Glucose,Whole Blood 354 mg/dL (70-110)
[2024-11-11] MEDS ORDERED: INSULIN LISPRO (HumaLOG) 100 UNIT/ML 10 mL VL SQ SCH (07:30)
[2024-11-11] MEDS: hydroCHLOROthiazide 25 MG TAB PO SCH (09:56)
[2024-11-11] MEDS: CHLORTHALIDONE 25 MG TAB PO SCH (09:56)
[2024-11-11] MEDS: MAGNESIUM OXIDE 400 MG TAB PO SCH (09:57)
[2024-11-11] MEDS: LOSARTAN 25 MG TAB PO SCH (10:09)
[2024-11-11] MEDS: HYDROcodone/APAP 7.5-325MG 1 EACH TAB PO PRN (10:46)
--- NOTE | 2024-11-11 10:53 | P.CRDCN ---
History of Present Illness Consult date: 11/11/24 Reason for Consult (text): Cardiac clearance for femoral bypass scheduled on Thursday History of present illness: This is a 59-year-old male patient of Dr. West Negron with past medical history of prior drug abuse, diabetes, hypertension, dyslipidemia, tobacco use, multivessel coronary artery disease on medical therapy. We have been asked to evaluate the patient for cardiac clearance for femoral bypass surgery scheduled for Thursday. Patient recently under went debridement of a nonhealing chronic ulceration to the dorsal surface of the left foot. He was subsequently scheduled femoral back bypass. Patient denies having any chest pain no chest pressure, no shortness of breath. No palpitations. Noted the blood pressure readings are slightly elevated. Blood pressure 188/92, heart rate in the 60s, pulse ox 100% on room air. -EKG: Sinus bradycardia -Laboratory studies: WBC 12.9, hemoglobin 10.2, sodium 132, potassium 5.4, BUN 53 and creatinine 1.17. Liver function test are normal. -Home cardiac medications: Aspirin 81 mg daily, Coreg 25 mg every 12 hours, chlorthalidone 25 mg daily, clonidine 0.2 mg 3 times daily, Zetia 10 mg at be dtime, hydrochlorothiazide 25 mg daily, magnesium oxide 400 mg daily, Procardia XL 60 mg every 12 hours. -Echocardiogram 03/11: EF 45 to 50% with inferior hypokinesis. -Lexiscan Cardiolite stress test performed in the office in 2018 was negative by EKG criteria. Abnormal nuclear scan showing fixed inferior wall defect with normal LV function and without any ischemia. Review Of Systems: At the time of my exam: CONSTITUTIONAL: Denies fever or chills. HEENT: Denies blurred vision, vision changes, or eye pain. Denies hemoptysis CARDIOVASCULAR: Denies chest pain. Denies orthopnea. Denies PND. Denies palpitations RESPIRATORY: Denies shortness of breath. GASTROINTESTINAL: Denies abdominal pain. Denies nausea or vomiting. HEMATOLOGIC: Denies bleeding disorders. GENITOURINARY: Denies any blood in urine. SKIN: Denies puritis. Denies rash. +wounds Physical examination: Gen: This is a 59-year-old black male in no acute distress VS: reviewed HEENT: Head is atraumatic, normocephalic. Pupils equal, round. Sclerae is anicteric. NECK: Supple. No JVD. LUNGS: Clear to auscultation. No wheezes or rhonchi. No intercostal retractions. HEART: Regular rate and rhythm. No murmur. ABDOMEN: Soft No tenderness. EXTREMITIES: Right AKA. Dressing to the left foot. NEUROLOGICAL: Patient is awake, alert and oriented x3. Assessment: PAD with scheduled femoral bypass surgery 11/14 Multivessel coronary artery disease on medical therapy Hypertension Dyslipidemia Diabetes History of tobacco use History of prior drug abuse Plan: Resume patient's home cardiac medications Add losartan 25 mg daily Monitor blood pressure and if needed increase losartan Patient is cleared to proceed with the surgery planned for femoral bypass. He is at intermediate risk for perioperative cardiovascular complications due to his coronary artery disease and limited functional capacity. No absolute contraindications for surgery. Cardiology will sign off this case and follow on an as-needed basis. Please reconsult for any new concerns. Patient may follow-up in the office in one to 2 weeks. Thank you kindly for this consultation. Nurse practitioner note has been reviewed, I agree with documented findings and plan of care. Patient was seen and examined. Past Medical History Past Medical History: Atrial Fibrillation, Asthma, Coronary Artery Disease (CAD), Heart Failure, Diabetes Mellitus, Deep Vein Thrombosis (DVT), Eye Disorder, Hyperlipidemia, Hypertension, Myocardial Infarction ([place]), Pneumonia, Renal Disease, Vascular Disorder Additional Past Medical History / Comment(s): wound left foot-wound care [facility] lt foot-able to stand/pivot transfers,obtaining therapy at [facility] and learning to walk with prosthesis on rt AKA but unable to wt bear currently on left foot w./ wound,hx uvitis glaucoma rt eye, PVD, dvt to lower left leg,anemia,acute kidney failure in past,paroxysmal afib Last Myocardial Infarction Date:: unknown History of Any Multi-Drug Resistant Organisms: MRSA Date of last positivie culture/infection: 06/30/20 MDRO Source:: Left Leg Past Surgical History: Hernia Repair, Orthopedic Surgery Additional Past Surgical History / Comment(s): aortgram w/ runnoff, eye surg, bilateral knee SX, left vein stripping in 02/2020 x2, vein graft and toe amputati on rt bka 2023,rt AKA ,amputation 1rst & 2nd digits left foot Past Anesthesia/Blood Transfusion Reactions: No Reported Reaction Additional Past Anesthesia/Blood Transfusion Reaction / Comment(s): no problems with prior blood transfusion Past Psychological History: No Psychological Hx Reported Additional Psychological History / Comment(s): Pt resides in C home Smoking Status: Former smoker Past Alcohol Use History: Rare Additional Past Alcohol Use History / Comment(s): quit smoking at 26,started at age 17,<1ppd Past Drug Use History: None Reported Additional Drug Use History / Comment(s): [facility] - Past Family History Mother History Unknown: Yes Brother(s) Family Medical History: COPD Additional Family Medical History / Comment(s): passed from COPD Father Family Medical History: Myocardial Infarction ([place]) Additional Family Medical History / Comment(s): passed from [place] Medications and Allergies Home Medications Medication Instructions Recorded Confirmed Type Acetaminophen Tab [Tylenol] 650 mg PO Q4H PRN 05/25/24 11/10/24 History Aspirin EC [Ecotrin Low Dose] 81 mg PO DAILY 05/25/24 11/10/24 History Gabapentin [Neurontin] 300 mg PO TID 05/25/24 11/10/24 History Sennosides-Docusate Sodium 1 tab PO Q12H 05/25/24 11/10/24 History [Senokot-S] cloNIDine HCL [Catapres] 0.2 mg PO TID 05/25/24 11/10/24 History Amino Acids/Protein Hydrolys 30 ml PO BID 11/04/24 11/10/24 History [Pro-Stat Awc Liquid] Chlorthalidone [Hygroton] 25 mg PO DAILY 11/04/24 11/10/24 History Ezetimibe [Zetia] 10 mg PO HS 11/04/24 11/10/24 History HYDROcodone/APAP 7.5-325MG [[place] 1 tab PO Q4H PRN 11/04/24 11/10/24 History 7.5-325] Insulin Glargine (Lantus) [Lantus 14 unit SQ HS 11/04/24 11/10/24 History Vial] Magnesium Oxide [Mag-Ox] 400 mg PO DAILY 11/04/24 11/10/24 History NIFEdipine XL [Procardia XL] 60 mg PO Q12HR 11/04/24 11/10/24 History hydroCHLOROthiazide [Hydrodiuril] 25 mg PO DAILY 11/04/24 11/10/24 History polyethylene glycoL 3350 [Miralax] 17 gm PO DAILY PRN 11/04/24 11/10/24 History Insulin Lispro [humaLOG Kwikpen] See Protocol SQ ACHS 11/08/24 11/10/24 History carvediloL [Coreg*] 25 mg PO Q12H 11/10/24 11/10/24 History Allergies Allergy/AdvReac Type Severity Reaction Status Date / Time atorvastatin [From Lipitor] Allergy Swelling Verified 11/10/24 17:35 ibuprofen Allergy Swelling Verified 11/10/24 17:35 pregabalin [From Lyrica] Allergy Swelling Verified 11/10/24 17:35 Physical Exam Vitals: Vital Signs Temp Pulse Pulse Resp BP BP Pulse Ox 11/11/24 08:10 98.4 F 61 188/92 11/11/24 01:46 98.6 F 66 14 147/82 100 11/10/24 20:00 97.6 F 74 16 143/71 100 11/10/24 19:55 72 17 148/81 97 11/10/24 18:51 59 L 22 139/72 97 11/10/24 17:25 54 L 16 133/69 97 Intake and Output 11/10/24 11/11/24 11/11/24 22:59 06:59 14:59 Output Total 900 200 Balance -900 -200 Output: Urine 900 200 Other: Voiding Method Urinal # Bowel Movements 1 Weight 72.575 kg Results 11/10/24 18:10 11/10/24 18:53 Cardiac Enzymes 11/10/24 Range/Units 18:53 AST 27 (17-59) U/L Coagulation 11/10/24 Range/Units 18:10 PT 11.4 (10.0-12.5) sec APTT 19.2 L (22.0-30.0) sec CBC 11/10/24 Range/Units 18:10 WBC 12.9 H (3.8-10.6) k/uL RBC 3.71 L (4.30-5.90) m/uL Hgb 10.2 L (13.0-17.5) gm/dL Hct 31.6 L (39.0-53.0) % Plt Count 403 (150-450) k/uL Comprehensive Metabolic Panel 11/10/24 Range/Units 18:53 Sodium 132 L (137-145) mmol/L Potassium 5.4 H (3.5-5.1) mmol/L Chloride 98 (98-107) mmol/L Carbon Dioxide 23 (22-30) mmol/L BUN 53 H (9-20) mg/dL Creatinine 1.17 (0.66-1.25) mg/dL Glucose 128 H (74-99) mg/dL Calcium 9.2 (8.4-10.2) mg/dL AST 27 (17-59) U/L ALT 17 (4-49) U/L Alkaline Phosphatase 87 (38-126) U/L Total Protein 7.4 (6.3-8.2) g/dL Albumin 3.6 (3.5-5.0) g/dL Current Medications Generic Name Dose Route Start Last Admin Trade Name Freq PRN Reason Stop Dose Admin Hydrocodone Bitart/Acetaminophen 1 each 11/10/24 17:57 11/10/24 22:52 Hydrocodone/Apap 5-325mg 1 Each Tab PO 1 each Q4HR PRN Administration Moderate Pain (Scale 4 to 6) Carvedilol 25 mg 11/10/24 21:45 11/10/24 22:52 Carvedilol 12.5 Mg Tab PO 25 mg Q12H DENNISE Administration Chlorthalidone 25 mg 11/11/24 09:00 Chlorthalidone 25 Mg Tab PO DAILY DENNISE Clonidine 0.2 mg 11/10/24 22:00 11/10/24 22:52 Clonidine Hcl 0.2 Mg Tab PO 0.2 mg TID DENNISE Administration Ezetimibe 10 mg 11/10/24 22:00 11/11/24 01:16 Ezetimibe 10 Mg Tab PO Not Given HS DENNISE Gabapentin 300 mg 11/10/24 22:00 11/10/24 22:52 Gabapentin 300 Mg Cap PO 300 mg TID DENNISE Administration Hydrochlorothiazide 25 mg 11/11/24 09:00 Hydrochlorothiazide 25 Mg Tab PO DAILY DENNISE Insulin Glargine 14 unit 11/10/24 22:00 11/10/24 22:52 Insulin Glargine (Lantus) 100 Unit/Ml Syr SQ 14 unit HS DENNISE Administration Insulin Human Lispro 0 unit 11/10/24 22:39 11/11/24 07:29 Insulin Lispro (Humalog) 100 Unit/Ml 10 Ml Vl SQ 100 unit ACHS DENNISE Administration Protocol Magnesium Oxide 400 mg 11/11/24 09:00 Magnesium Oxide 400 Mg Tab PO DAILY DENNISE Naloxone HCl 0.2 mg 11/10/24 17:57 Naloxone 0.4 Mg/Ml 1 Ml Vial IV Q2M PRN Opioid Reversal Nifedipine 60 mg 11/11/24 09:00 Nifedipine Xl 60 Mg Tab.Er.24 PO Q12HR DENNISE Ondansetron HCl 4 mg 11/10/24 17:57 Ondansetron 4 Mg/2 Ml Vial IVP Q8HR PRN Nausea And Vomiting Polyethylene Glycol 17 gm 11/10/24 21:44 Polyethylene Glycol 3350 17 Gm Powd.Pack PO DAILY PRN Constipation Senna/Docusate Sodium 1 each 11/10/24 21:45 11/10/24 22:53 Sennosides-Docusate Sodium 1 Each Tab PO 1 each Q12H DENNISE Administration Intake and Output 11/10/24 11/11/24 11/11/24 22:59 06:59 14:59 Output Total 900 200 Balance -900 -200 Output: Urine 900 200 Other: Voiding Method Urinal # Bowel Movements 1 Weight 72.575 kg 11/10/24 18:10 11/10/24 18:53
[2024-11-11 11:24] LABS: Glucose,Whole Blood 202 mg/dL (70-110)
--- NOTE | 2024-11-11 13:07 | CA ---
Transthoracic Echo Report Name: Benny Ladd Age: 59 Gender: M : 1965 Exam Date: 11/11/2024 10:37 Exam Location: [place] Echo Ht (in): 62 Wt (lb): 160 Ordering Physician: Radha Shay Attending/Referring Phys: Breakdown Worker Eboni Camarena RDCS Procedure CPT: Indications: History coronary artery disease, cardiac clearance Cardiac Hx: Technical Quality: Good Contrast 1: Total Dose (mL): Contrast 2: Total Dose (mL): MEASUREMENTS (Male / Female) Normal Values 2D ECHO LV Diastolic Diameter PLAX 5.3 cm 4.2 - 5.9 / 3.9 - 5.3 cm LV Systolic Diameter PLAX 3.5 cm IVS Diastolic Thickness 0.8 cm 0.6 - 1.0 / 0.6 - 0.9 cm LVPW Diastolic Thickness 1.0 cm 0.6 - 1.0 / 0.6 - 0.9 cm LV Relative Wall Thickness 0.3 LVOT Diameter 2.1 cm LV Diastolic Volume MOD BP 147.5 cm??? 67 - 155 / 56 - 104 cm??? LV Systolic Volume MOD BP 62.7 cm??? 22 - 58 / 19 - 49 cm??? LV Ejection Fraction MOD BP 57.5 % >= 55 % LV Cardiac Index MOD BP 2865.1 cm???/min???m??? LV Diastolic Volume MOD 4C 147.1 cm??? LV Systolic Volume MOD 4C 62.8 cm??? LV Ejection Fraction MOD 4C 57.3 % LV Cardiac Index MOD 4C 2846.9 cm???/min???m??? LV Diastolic Length 4C 8.5 cm LV Systolic Length 4C 7.1 cm LV Diastolic Volume MOD 2C 147.3 cm??? LV Systolic Volume MOD 2C 62.7 cm??? LV Ejection Fraction MOD 2C 57.4 % LV Cardiac Index MOD 2C 2855.2 cm???/min???m??? LV Diastolic Length 2C 8.6 cm LV Systolic Length 2C 7.1 cm LA Volume 72.3 cm??? 18 - 58 / 22 - 52 cm??? LA Volume Index 40.1 cm???/m??? 16 - 28 cm???/m??? Ascending Aorta Diameter 3.3 cm DOPPLER AV Peak Velocity 175.8 cm/s AV Peak Gradient 12.4 mmHg AV Mean Velocity 107.7 cm/s AV Mean Gradient 5.5 mmHg AV Velocity Time Integral 33.5 cm LVOT Peak Velocity 120.3 cm/s LVOT Peak Gradient 5.8 mmHg LVOT Velocity Time Integral 22.6 cm LVOT Stroke Volume 80.5 cm??? LVOT Stroke Volume Index 46.3 ml/m??? LVOT Cardiac Index 2718.4 cm???/min???m??? AV Area Cont Eq vti 2.4 cm??? AV Area Cont Eq pk 2.4 cm??? MV Area PHT 4.4 cm??? Mitral E Point Velocity 63.1 cm/s Mitral A Point Velocity 86.9 cm/s Mitral E to A Ratio 0.7 MV Deceleration Time 173.0 ms PV Peak Velocity 96.5 cm/s PV Peak Gradient 3.7 mmHg FINDINGS Left Ventricle Left ventricular ejection fraction is estimated at 50 %. Mildly increased left ventricular systolic volume. Left ventricular wall thickness normal. No obvious regional wall motion abnormalities. Right Ventricle Normal right ventricular size. Mildly reduced right ventricular global systolic function. Unable to estimate the right ventricular systolic pressure. Right Atrium Normal right atrial size. Left Atrium Moderately increased left atrial volume. Mitral Valve Mitral valve thickened. No evidence for mitral valve prolapse. No mitral stenosis. Mild mitral regurgitation. Aortic Valve Trileaflet aortic valve. No aortic valve stenosis or regurgitation. Tricuspid Valve Structurally normal tricuspid valve. No tricuspid stenosis. Trace tricuspid regurgitation. Pulmonic Valve Structurally normal pulmonic valve. No pulmonic stenosis. No pulmonic regurgitation. Pericardium No pericardial effusion. Aorta Normal size aortic root and proximal ascending aorta. CONCLUSIONS Low normal LV systolic function with EF at 50% Mildly thickened mitral valve apparatus No pericardial effusion Previewed by: Dr. Abdulaziz Weber MD (Electronically Signed) Final Date: 11 November 2024 13:06
--- NOTE | 2024-11-11 13:24 | P.GSCN ---
History of Present Illness Consult date: 11/11/24 Reason for Consult: Peripheral arterial disease, scheduled for left femoral to popliteal artery bypass Requesting physician: Sunil Laboy History of present illness: 59-year-old -Macanese male with history of peripheral arterial disease with previous right [id number] amputation, longstanding history of diabetes mellitus, tobacco use, atrial fibrillation, coronary artery disease, chronic renal disease, history of DVT, hyperlipidemia, and hypertension who was scheduled for outpatient left femoropopliteal bypass on 11/14/2024. Patient has been residing long-term care at [facility]. He had recent debridement of his left foot with skin substitute placed and wound VAC this past Thursday. Anesthesia was requiring cardiac clearance prior to procedure and patient was not able to see logging supervisor in outpatient setting. He was admitted for workup and cardiac clearance prior to scheduled surgery on Thursday. Patient was admitted to the medical service team with vascular surgery on consultation. Patient was supposed to have wound VAC in place until he returned for surgery on Thursday however he states that the machine was beeping and he was tired of having the wound VAC on so he asked the staff to remove the wound VAC yesterday. He does have pain in the left lower extremity. He has been afebrile. Review of Systems A 14 point review systems was completed all pertinent positives and negatives as stated in the HPI. Past Medical History Past Medical History: Atrial Fibrillation, Asthma, Coronary Artery Disease (CAD), Heart Failure, Diabetes Mellitus, Deep Vein Thrombosis (DVT), Eye Disorder, Hyperlipidemia, Hypertension, Myocardial Infarction ([place]), Pneumonia, Renal Disease, Vascular Disorder Additional Past Medical History / Comment(s): wound left foot-wound care [facility],N[facility] lt foot-able to stand/pivot transfers,obtaining therapy at [facility] and learning to walk with prosthesis on rt AKA but unable to wt bear currently on left foot w./ wound,hx uvitis glaucoma rt eye, PVD, dvt to lower left leg,anemia,acute kidney failure in past,paroxysmal afib Last Myocardial Infarction Date:: unknown History of Any Multi-Drug Resistant Organisms: MRSA Year Discovered:: 06/30/20 MDRO Source:: Left Leg Past Surgical History: Hernia Repair, Orthopedic Surgery Additional Past Surgical History / Comment(s): aortgram w/ runnoff, eye surg, bilateral knee SX, left vein stripping in 02/2020 x2, vein graft and toe amput ation rt bka 2023,rt AKA ,amputation 1rst & 2nd digits left foot Past Anesthesia/Blood Transfusion Reactions: No Reported Reaction Additional Past Anesthesia/Blood Transfusion Reaction / Comm: no problems with prior blood transfusion Past Psychological History: No Psychological Hx Reported Additional Psychological History / Comment(s): Pt resides in LTC home Smoking Status: Former smoker Past Alcohol Use History: Rare Additional Past Alcohol Use History / Comment(s): quit smoking at 26,started at age 17,<1ppd Past Drug Use History: None Reported Additional Drug Use History / Comment(s): no marijuana while at [place] - Past Family History Mother History Unknown: Yes Brother(s) Family Medical History: COPD Additional Family Medical History / Comment(s): passed from COPD Father Family Medical History: Myocardial Infarction ([place]) Additional Family Medical History / Comment(s): passed from [place] Medications and Allergies Home Medications Medication Instructions Recorded Confirmed Type Acetaminophen Tab [Tylenol] 650 mg PO Q4H PRN 05/25/24 11/10/24 History Aspirin EC [Ecotrin Low Dose] 81 mg PO DAILY 05/25/24 11/10/24 History Gabapentin [Neurontin] 300 mg PO TID 05/25/24 11/10/24 History Sennosides-Docusate Sodium 1 tab PO Q12H 05/25/24 11/10/24 History [Senokot-S] cloNIDine HCL [Catapres] 0.2 mg PO TID 05/25/24 11/10/24 History Amino Acids/Protein Hydrolys 30 ml PO BID 11/04/24 11/10/24 History [Pro-Stat Awc Liquid] Chlorthalidone [Hygroton] 25 mg PO DAILY 11/04/24 11/10/24 History Ezetimibe [Zetia] 10 mg PO HS 11/04/24 11/10/24 History HYDROcodone/APAP 7.5-325MG [[place] 1 tab PO Q4H PRN 11/04/24 11/10/24 History 7.5-325] Insulin Glargine (Lantus) [Lantus 14 unit SQ HS 11/04/24 11/10/24 History Vial] Magnesium Oxide [Mag-Ox] 400 mg PO DAILY 11/04/24 11/10/24 History NIFEdipine XL [Procardia XL] 60 mg PO Q12HR 11/04/24 11/10/24 History hydroCHLOROthiazide [Hydrodiuril] 25 mg PO DAILY 11/04/24 11/10/24 History polyethylene glycoL 3350 [Miralax] 17 gm PO DAILY PRN 11/04/24 11/10/24 History Insulin Lispro [humaLOG Kwikpen] See Protocol SQ ACHS 11/08/24 11/10/24 History carvediloL [Coreg*] 25 mg PO Q12H 11/10/24 11/10/24 History Allergies Allergy/AdvReac Type Severity Reaction Status Date / Time atorvastatin [From Lipitor] Allergy Swelling Verified 11/10/24 17:35 ibuprofen Allergy Swelling Verified 11/10/24 17:35 pregabalin [From Lyrica] Allergy Swelling Verified 11/10/24 17:35 Surgical - Exam Vital Signs Pulse Resp BP Pulse Ox 54 L 16 133/69 97 11/10/24 17:25 11/10/24 17:25 11/10/24 17:25 11/10/24 17:25 General appearance: The patient is alert, oriented, appears in no acute distress. HET: Head is normocephalic and atraumatic. Pupils are equal and reactive. Neck: Supple. Heart: Regular. Lungs: Equal expansion, normal respiratory effort. Abdomen: Soft, nontender, nondistended. Extremities: Right [id number] amputation well-healed. Left foot wound to dorsal aspect appears there may be some skin substitute still in place, tendon exposure with pale tissues. Wound to left lateral part of foot down to the subcutaneous fat exposure. Left lower extremity and gig tender to palpation. Warm to the touch. Neurological: No focal deficits. Strength and sensation are grossly intact. Results - Labs 11/10/24 18:10 11/10/24 18:53 Abnormal Lab Results - Last 24 Hours (Table) 11/10/24 11/10/24 11/10/24 Range/Units 18:10 18:10 18:53 WBC 12.9 H (3.8-10.6) k/uL RBC 3.71 L (4.30-5.90) m/uL Hgb 10.2 L (13.0-17.5) gm/dL Hct 31.6 L (39.0-53.0) % Neutrophils # 10.1 H (1.3-7.7) k/uL APTT 19.2 L (22.0-30.0) sec Sodium 132 L (137-145) mmol/L Potassium 5.4 H (3.5-5.1) mmol/L BUN 53 H (9-20) mg/dL Glucose 128 H (74-99) mg/dL POC Glucose (mg/dL) (70-110) mg/dL 11/10/24 11/11/24 Range/Units 20:50 06:14 WBC (3.8-10.6) k/uL RBC (4.30-5.90) m/uL Hgb (13.0-17.5) gm/dL Hct (39.0-53.0) % Neutrophils # (1.3-7.7) k/uL APTT (22.0-30.0) sec Sodium (137-145) mmol/L Potassium (3.5-5.1) mmol/L BUN (9-20) mg/dL Glucose (74-99) mg/dL POC Glucose (mg/dL) 245 H 354 H (70-110) mg/dL Diabetes panel 11/10/24 Range/Units 18:53 Sodium 132 L (137-145) mmol/L Potassium 5.4 H (3.5-5.1) mmol/L Chloride 98 (98-107) mmol/L Carbon Dioxide 23 (22-30) mmol/L BUN 53 H (9-20) mg/dL Creatinine 1.17 (0.66-1.25) mg/dL Glucose 128 H (74-99) mg/dL Calcium 9.2 (8.4-10.2) mg/dL AST 27 (17-59) U/L ALT 17 (4-49) U/L Alkaline Phosphatase 87 (38-126) U/L Total Protein 7.4 (6.3-8.2) g/dL Albumin 3.6 (3.5-5.0) g/dL Calcium panel 11/10/24 Range/Units 18:53 Calcium 9.2 (8.4-10.2) mg/dL Albumin 3.6 (3.5-5.0) g/dL Pituitary panel 11/10/24 Range/Units 18:53 Sodium 132 L (137-145) mmol/L Potassium 5.4 H (3.5-5.1) mmol/L Chloride 98 (98-107) mmol/L Carbon Dioxide 23 (22-30) mmol/L BUN 53 H (9-20) mg/dL Creatinine 1.17 (0.66-1.25) mg/dL Glucose 128 H (74-99) mg/dL Calcium 9.2 (8.4-10.2) mg/dL Adrenal panel 11/10/24 Range/Units 18:53 Sodium 132 L (137-145) mmol/L Potassium 5.4 H (3.5-5.1) mmol/L Chloride 98 (98-107) mmol/L Carbon Dioxide 23 (22-30) mmol/L BUN 53 H (9-20) mg/dL Creatinine 1.17 (0.66-1.25) mg/dL Glucose 128 H (74-99) mg/dL Calcium 9.2 (8.4-10.2) mg/dL Total Bilirubin 0.8 (0.2-1.3) mg/dL AST 27 (17-59) U/L ALT 17 (4-49) U/L Alkaline Phosphatase 87 (38-126) U/L Total Protein 7.4 (6.3-8.2) g/dL Albumin 3.6 (3.5-5.0) g/dL Assessment and Plan Assessment: 1. Nonhealing ulceration to dorsal and lateral aspect of left foot 2. 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 Previous smoker 5. History of atrial fibrillation 6. History of coronary artery disease 7. Hypertension and hyperlipidemia 8. Previous right [id number] amputation Plan: 1. Daily dressing change with Adaptic 4 x 4 and Kerlix to left foot wounds 2. Echocardiogram ordered 3. Consult to cardiology for cardiac clearance for left femoral to popliteal bypass. Appreciate their recommendations. 4. Rest of medical management per primary medical team 5. Patient is tentatively scheduled for left femoral to popliteal bypass on Thursday11/14/24 6. Type and screen ordered for 11/13/2024 7. N.p.o. after midnight Thursday night for surgery on Thursday 8. No anticoagulation for 24 hours prior to surgery Thank you for this consultation, we will continue to follow. The impression and plan of care has been dictated as directed. I performed a history and examination of this patient, discussed the same with the dictator. I agree with the dictator's note ,documented as a scribe. Any additional findings or plans will be noted.
--- NOTE | 2024-11-11 13:58 | P.HPIM ---
History of Present Illness H&P Date: 11/11/24 Chief Complaint: Pre-op clearance Patient is a 59 year old male with past medical history of CAD, heart failure, diabetes mellitus, peripheral arterial disease with previous right cmqzk-iaz-jqdi amputation presenting to the hospital for preop clearance. The patient has been scheduled for left femoral popliteal bypass on 11/10/2024. Reportedly the patient is residing at a long-term care at [facility]. He had a recent debridement of the left foot with skin substitute and wound VAC. Anesthesia record cardiac arrest prior to procedure and the patient was not able to see a supervisor sandblaster over the weekend in the outpatient setting. He has been admitted for cardiac clearance prior to starting surgery on Thursday. Currently he complains of pain in the left lower extremity at the wound site. Denies fever, chills, shortness of breath, cough, chest pain, palpitations, abdominal pain, nausea, vomiting, hematuria, dysuria, hematochezia, melena, headache, slurred speech, numbness, tingling, dizziness, lightheadedness, blurred vision, double vision. ED documentation reviewed. In the ED was treated with gabapentin, Rice, Humalog, Lantus, Senokot, carvedilol, clonidine. Vitals on admission T 97.6 F, FL 54 bpm, RR 16, BP 133/69, oxygen saturation 9 7% on room air EKG independently interpreted as sinus bradycardia, rate 54 bpm, QTc 425 ms Echocardiogram shows EF 50%, mildly increased left ventricular systolic volume, low normal LV systolic function, mildly thickened mitral valve apparatus Lexiscan Cardiolite stress test performed in the office Thursday was negative by EKG criteria, abnormal nuclear scan showing fixed inferior wall defect with n ormal LV function without any ischemia Labs on admission show WBC 12.9, hemoglobin 10.2, hematocrit 31.6, platelet count 403, APTT 19.2, sodium 132, potassium 5.4, BUN 53, creatinine 1.17, ALP 87, total bilirubin 0.8 Review of systems: Pertinent positives and negatives as discussed in HPI, a complete review of systems was performed and all other systems are negative. Social history: Tobacco: Former smoker Alcohol: Rarely Recreational drugs: Denies use Travel: No recent travel history Sick contacts: None Physical examination: Vital signs reviewed General: nontoxic, no distress, appears at stated age Derm: warm, dry, intact Head: atraumatic, normocephalic, symmetric Eyes: EOMI, anicteric sclera Mouth: no lip lesion, mucus membranes moist Cardiovascular: S1 S2 reg, no murmur Lungs: CTA bilateral, no rhonchi, no rales, no accessory muscle use Abdominal: soft, non-tender to palpation Extremities: No cyanosis, clubbing, or pedal edema. Neuro: Alert, Oriented, Gross neurological examination did not reveal any focal deficits. Psych: well appearing, appropriate affect Assessment/Plan: Patient is a 59 year old male with past medical history of atrial fibrillation, asthma, CAD, heart failure, diabetes mellitus, peripheral arterial disease with previous right hginq-oay-gdak amputation presenting to the hospital for preop clearance. Active: #. PAD with scheduled femoral bypass surgery 11/14 #. Previous right mkpea-naq-zhbo amputation #. Nonhealing ulceration to dorsal and lateral aspect of the left foot Daily dressing changes Adaptic 4 x 4 and Kerlix to left foot wound Obtain type and screen N.p.o. after midnight on Thursday Halve the dose of Lantus to 7 units SQ at bedtime on Thursday Cardiology consulted for cardiac clearance, patient cleared for surgery with intermediate risk Continue telemetry monitoring Vascular surgery is following #. Reactive leukocytosis WBC on admission 12.9 Monitor CBC #. Hyponatremia Sodium on admission 132 Monitor BMP #. Hyperkalemia Potassium on admission 5.4 Monitor BMP #. Nausea and vomiting Continue ondansetron 4 mg IVP every 8 hours as needed Chronic: #. Multivessel coronary artery disease on medical therapy #. Hypertension #. Dyslipidemia #. Diabetes #. History of nicotine dependence/drug abuse #. Neuropathy #. Constipation Continue carvedilol 25 mg p.o. every 12 hours, chlorthalidone 25 mg p.o. daily, clonidine 0.2 mg p.o. 3 times daily, Zetia 10 mg p.o. at bedtime, carbonate 3 mg p.o. 3 times daily, hydrochlorothiazide 25 mg p.o. daily, insulin glargine 40 units SQ at bedtime, insulin sliding scale, nifedipine 60 mg p.o. every 12 hours, MiraLAX 17 g p.o. daily as needed, Senokot p.o. every 12 hours F: None E: Replete as required N: Heart healthy diet DVT prophylaxis: Heparin 5000 units SQ every 8 hours GI prophylaxis: Pantoprazole 40 mg p.o. daily The patient is admitted with an anticipated more than 2 midnight stay for scheduled surgery on 11/14/2024 CODE STATUS: Full code Discussed with: Patient Anticipated discharge place: Home Attestation I have seen and examined this patient with my resident , discussed the same with the resident/ANUSHA, and agree with the dictator's assessment and plan as written GENERAL: The patient is alert and oriented x3, not in any acute distress. Well developed, well nourished. HEENT: Pupils are round and equally reacting to light. EOMI. No scleral icterus. No conjunctival pallor. Normocephalic, atraumatic. No pharyngeal erythema. No thyromegaly. CARDIOVASCULAR: S1 and S2 present. No murmurs, rubs, or gallops. PULMONARY: Chest is clear to auscultation, no wheezing or crackles. ABDOMEN: Soft, nontender, nondistended, normoactive bowel sounds. No palpable organomegaly. MUSCULOSKELETAL: Right AKA EXTREMITIES: No cyanosis, clubbing, or pedal edema. NEUROLOGICAL: Gross neurological examination did not reveal any focal deficits. SKIN: No rashes. Dr. Clarke peacock Past Medical History Past Medical History: Atrial Fibrillation, Asthma, Coronary Artery Disease (CAD), Heart Failure, Diabetes Mellitus, Deep Vein Thrombosis (DVT), Eye Disorder, Hyperlipidemia, Hypertension, Myocardial Infarction ([place]), Pneumonia, Renal Disease, Vascular Disorder Additional Past Medical History / Comment(s): wound left foot-wound care [facility] lt foot-able to stand/pivot transfers,obtaining therapy at [facility] and learning to walk with prosthesis on rt AKA but unable to wt bear currently on left foot w./ wound,hx uvitis glaucoma rt eye, PVD, dvt to lower left leg,anemia,acute kidney failure in past,paroxysmal afib Last Myocardial Infarction Date:: unknown History of Any Multi-Drug Resistant Organisms: MRSA Date of last positivie culture/infection: 06/30/20 MDRO Source:: Left Leg Past Surgical History: Hernia Repair, Orthopedic Surgery Additional Past Surgical History / Comment(s): aortgram w/ runnoff, eye surg, bilateral knee SX, left vein stripping in 02/2020 x2, vein graft and toe amputation rt bka 2023,rt AKA ,amputation 1rst & 2nd digits left foot Past Anesthesia/Blood Transfusion Reactions: No Reported Reaction Additional Past Anesthesia/Blood Transfusion Reaction / Comment(s): no problems with prior blood transfusion Past Psychological History: No Psychological Hx Reported Additional Psychological History / Comment(s): Pt resides in LTC home Smoking Status: Former smoker Past Alcohol Use History: Rare Additional Past Alcohol Use History / Comment(s): quit smoking at 26,started at age 17,<1ppd Past Drug Use History: None Reported Additional Drug Use History / Comment(s): no marijuana while at [facility] - Past Family History Mother History Unknown: Yes Brother(s) Family Medical History: COPD Additional Family Medical History / Comment(s): passed from COPD Father Family Medical History: Myocardial Infarction ([place]) Additional Family Medical History / Comment(s): passed from [place] Medications and Allergies Home Medications Medication Instructions Recorded Confirmed Type Acetaminophen Tab [Tylenol] 650 mg PO Q4H PRN 05/25/24 11/10/24 History Aspirin EC [Ecotrin Low Dose] 81 mg PO DAILY 05/25/24 11/10/24 History Gabapentin [Neurontin] 300 mg PO TID 05/25/24 11/10/24 History Sennosides-Docusate Sodium 1 tab PO Q12H 05/25/24 11/10/24 History [Senokot-S] cloNIDine HCL [Catapres] 0.2 mg PO TID 05/25/24 11/10/24 History Amino Acids/Protein Hydrolys 30 ml PO BID 11/04/24 11/10/24 History [Pro-Stat Awc Liquid] Chlorthalidone [Hygroton] 25 mg PO DAILY 11/04/24 11/10/24 History Ezetimibe [Zetia] 10 mg PO HS 11/04/24 11/10/24 History HYDROcodone/APAP 7.5-325MG [Rice 1 tab PO Q4H PRN 11/04/24 11/10/24 History 7.5-325] Insulin Glargine (Lantus) [Lantus 14 unit SQ HS 11/04/24 11/10/24 History Vial] Magnesium Oxide [Mag-Ox] 400 mg PO DAILY 11/04/24 11/10/24 History NIFEdipine XL [Procardia XL] 60 mg PO Q12HR 11/04/24 11/10/24 History hydroCHLOROthiazide [Hydrodiuril] 25 mg PO DAILY 11/04/24 11/10/24 History polyethylene glycoL 3350 [Miralax] 17 gm PO DAILY PRN 11/04/24 11/10/24 History Insulin Lispro [humaLOG Kwikpen] See Protocol SQ ACHS 11/08/24 11/10/24 History carvediloL [Coreg*] 25 mg PO Q12H 11/10/24 11/10/24 History Allergies Allergy/AdvReac Type Severity Reaction Status Date / Time atorvastatin [From Lipitor] Allergy Swelling Verified 11/10/24 17:35 ibuprofen Allergy Swelling Verified 11/10/24 17:35 pregabalin [From Lyrica] Allergy Swelling Verified 11/10/24 17:35 Physical Exam Vitals: Vital Signs Temp Pulse Pulse Resp BP BP Pulse Ox 11/11/24 10:05 61 14 11/11/24 08:10 98.4 F 61 188/92 11/11/24 01:46 98.6 F 66 14 147/82 100 11/10/24 20:00 97.6 F 74 16 143/71 100 11/10/24 19:55 72 17 148/81 97 11/10/24 18:51 59 L 22 139/72 97 11/10/24 17:25 54 L 16 133/69 97 Intake and Output 11/10/24 11/11/24 11/11/24 22:59 06:59 14:59 Intake Total 200 Output Total 900 200 Balance -900 0 Intake: Oral 200 Output: Urine 900 200 Other: Voiding Method Urinal Urinal # Bowel Movements 1 Weight 72.575 kg Results CBC & Chem 7: 11/10/24 18:10 11/10/24 18:53 Labs: Abnormal Lab Results - Last 24 Hours (Table) 11/10/24 11/10/24 11/10/24 Range/Units 18:10 18:10 18:53 WBC 12.9 H (3.8-10.6) k/uL RBC 3.71 L (4.30-5.90) m/uL Hgb 10.2 L (13.0-17.5) gm/dL Hct 31.6 L (39.0-53.0) % Neutrophils # 10.1 H (1.3-7.7) k/uL APTT 19.2 L (22.0-30.0) sec Sodium 132 L (137-145) mmol/L Potassium 5.4 H (3.5-5.1) mmol/L BUN 53 H (9-20) mg/dL Glucose 128 H (74-99) mg/dL POC Glucose (mg/dL) (70-110) mg/dL 11/10/24 11/11/24 11/11/24 Range/Units 20:50 06:14 11:22 WBC (3.8-10.6) k/uL RBC (4.30-5.90) m/uL Hgb (13.0-17.5) gm/dL Hct (39.0-53.0) % Neutrophils # (1.3-7.7) k/uL APTT (22.0-30.0) sec Sodium (137-145) mmol/L Potassium (3.5-5.1) mmol/L BUN (9-20) mg/dL Glucose (74-99) mg/dL POC Glucose (mg/dL) 245 H 354 H 202 H (70-110) mg/dL Thrombosis Risk Factor Assmnt - Choose All That Apply Any of the Below Risk Factors Present?: No Each Risk Factor Represents 2 Points: Age 61-74 years Other congenital or acquired thrombophilia - If yes, enter type in comment: No Thrombosis Risk Factor Assessment Total Risk Factor Score: 2 Thrombosis Risk Factor Assessment Level: Low Risk
[2024-11-11] MEDS: HEPARIN SODIUM,PORCINE 5,000 UNIT/ML 1 ML VIAL SQ SCH (16:08)
[2024-11-11 16:43] LABS: Glucose,Whole Blood 213 mg/dL (70-110)
[2024-11-11 20:25] LABS: Glucose,Whole Blood 335 mg/dL (70-110)
[2024-11-12 06:07] LABS: Glucose,Whole Blood 297 mg/dL (70-110)
[2024-11-12] MEDS: PANTOPRAZOLE 40 MG TABLET PO SCH (06:48)
--- NOTE | 2024-11-12 11:06 | P.PN ---
Subjective Progress Note Date: 11/12/24 Patient seen and examined. No complaints. Awaiting surgical intervention Thursday. He has since been seen by cardiology and was cleared to proceed with surgery with intermediate risk factors. No complaints at this time Objective - Vital Signs Vital signs: Vital Signs Temp 97.7 F 11/12/24 07:40 Pulse 60 11/12/24 07:40 Resp 15 11/12/24 07:40 BP 133/68 11/12/24 07:40 Pulse Ox 99 11/12/24 07:40 FiO2 Intake & Output 11/11/24 11/12/24 11/12/24 18:59 06:59 18:59 Intake Total 200 120 Output Total 400 402 Balance -200 -282 Intake: Oral 200 120 Output: Urine 400 400 Stool 2 Other: Voiding Method Urinal Urinal # Bowel Movements 1 1 - Exam General appearance: The patient is alert, oriented, appears in no acute distress. HET: Head is normocephalic and atraumatic. Pupils are equal and reactive. . Lungs: normal respiratory effort. Abdomen: Soft, nontender, nondistended. Extremities: Right lnrep-fke-urjk amputation well-healed. Left foot wound to dorsal aspect appears there may be some skin substitute still in place, tendon exposure with pale tissues. Wound to left lateral part of foot down to the subcutaneous fat exposure. Left lower extremity and circulation tender to palpation. Warm to the touch. Neurological: No focal deficits. Strength and sensation are grossly intact. - Labs CBC & Chem 7: 11/10/24 18:10 11/10/24 18:53 Labs: Abnormal Lab Results - Last 24 Hours (Table) 11/11/24 11/11/24 11/11/24 Range/Units 11:22 16:42 20:21 POC Glucose (mg/dL) 202 H 213 H 335 H (70-110) mg/dL 11/12/24 Range/Units 06:03 POC Glucose (mg/dL) 297 H (70-110) mg/dL Assessment and Plan Assessment: 1. Nonhealing ulceration to dorsal and lateral aspect of left foot 2. 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 Previous smoker 5. History of atrial fibrillation 6. History of coronary artery disease 7. Hypertension and hyperlipidemia 8. Previous right oeavz-ztb-huso amputation Plan: Continue local wound care at the foot wound at this time. Reviewed clearance by cardiology and cleared for intervention tentatively planned for Thursday.
[2024-11-12 12:03] LABS: Glucose,Whole Blood 339 mg/dL (70-110)
[2024-11-12 12:14] LABS: BUN/Creat Ratio 24.93 Ratio (12.00-20.00); Blood Urea Nitrogen 34.9 mg/dL (9.0-27.0); Calcium 8.7 mg/dL (8.7-10.3); Carbon Dioxide 25.3 mmol/L (21.6-31.8); Chloride 98 mmol/L (96-109); Glucose 291 mg/dL (70-110); Potassium 4.2 mmol/L (3.5-5.5); Sodium 134 mmol/L (135-145)
--- NOTE | 2024-11-12 12:14 | P.PN ---
Subjective Progress Note Date: 11/12/24 Principal diagnosis: Hospital course: Patient is a 59 year old male with past medical history of CAD, heart failure, diabetes mellitus, peripheral arterial disease with previous right tybtj-vpm-mqfk amputation presenting to the hospital for preop clearance. The patient has been scheduled for left femoral popliteal bypass on 11/10/2024. Reportedly the patient is residing at a long-term care at [facility]. He had a recent debridement of the left foot with skin substitute and wound VAC. Anesthesia record cardiac arrest prior to procedure and the patient was not able to see a terry cloth cutter hand over the weekend in the outpatient setting. He has been admitted for cardiac clearance prior to starting surgery on Thursday. Currently he complains of pain in the left lower extremity at the wound site. Denies fever, chills, shortness of breath, cough, chest pain, palpitations, abdominal pain, nausea, vomiting, hematuria, dysuria, hemato chezia, melena, headache, slurred speech, numbness, tingling, dizziness, lightheadedness, blurred vision, double vision. ED documentation reviewed. In the ED was treated with gabapentin, Warren, Humalog, Lantus, Senokot, carvedilol, clonidine. Vitals on admission T 97.6 F, [place] 54 bpm, RR 16, BP 133/69, oxygen saturation 97% on room air EKG independently interpreted as sinus bradycardia, rate 54 bpm, QTc 425 ms Echocardiogram shows EF 50%, mildly increased left ventricular systolic volume, low normal LV systolic function, mildly thickened mitral valve apparatus Lexiscan Cardiolite stress test performed in the office Thursday was negative by EKG criteria, abnormal nuclear scan showing fixed inferior wall defect with normal LV function without any ischemia Labs on admission show WBC 12.9, hemoglobin 10.2, hematocrit 31.6, platelet count 403, APTT 19.2, sodium 132, potassium 5.4, BUN 53, creatinine 1.17, ALP 87, total bilirubin 0.8 11/12/24: Patient seen and examined at bedside today. BP today 133/68, pulse rate 60 bpm. C. diff negative. Review of systems: Pertinent positives and negatives as discussed in HPI, a complete review of systems was performed and all other systems are negative. Vitals: Signs Reviewed Physical examination: General: nontoxic, no distress, appears at stated age, drowsy Derm: warm, dry, intact Head: atraumatic, normocephalic, symmetric Eyes: EOMI, anicteric sclera Mouth: no lip lesion, mucus membranes moist Cardiovascular: S1 S2 reg, no murmur Lungs: CTA bilateral, no rhonchi, no rales, no accessory muscle use Abdominal: soft, non-tender to palpation Extremities: Left foot is bandaged, right AKA, no cyanosis, clubbing, or pedal edema. Neuro: Alert, Oriented, Gross neurological examination did not reveal any focal deficits. Psych: well appearing, appropriate affect Assessment/Plan: Patient is a 59 year old male with past medical history of atrial fibrillation, asthma, CAD, heart failure, diabetes mellitus, peripheral arterial disease with previous right wobdd-vrc-lljo amputation presenting to the hospital for preop clearance. Active: #. PAD with scheduled femoral bypass surgery 11/14 #. Previous right ycyzv-yne-xxcz amputation #. Nonhealing ulceration to dorsal and lateral aspect of the left foot Daily dressing changes Adaptic 4 x 4 and Kerlix to left foot wound Obtain type and screen N.p.o. after midnight on Thursday night Halve the dose of Lantus to 7 units SQ at bedtime on Thursday night Stop anticoagulation tomorrow Cardiology consulted for cardiac clearance, patient cleared for surgery with intermediate risk Continue telemetry monitoring Vascular surgery is following #. Reactive leukocytosis WBC on admission 12.9 Monitor CBC #. Hyponatremia Sodium on admission 132 Monitor BMP #. Hyperkalemia Potassium on admission 5.4 Monitor BMP #. Nausea and vomiting Continue ondansetron 4 mg IVP every 8 hours as needed Chronic: #. Multivessel coronary artery disease on medical therapy #. Hypertension #. Dyslipidemia #. Diabetes #. History of nicotine dependence/drug abuse #. Neuropathy #. Constipation Continue carvedilol 25 mg p.o. every 12 hours, chlorthalidone 25 mg p.o. daily, clonidine 0.2 mg p.o. 3 times daily, Zetia 10 mg p.o. at bedtime, carbonate 3 mg p.o. 3 times daily, hydrochlorothiazide 25 mg p.o. daily, insulin glargine 40 units SQ at bedtime, insulin sliding scale, nifedipine 60 mg p.o. every 12 hours, MiraLAX 17 g p.o. daily as needed, Senokot p.o. every 12 hours F: None E: Replete as required N: Heart healthy diet DVT prophylaxis: Heparin 5000 units SQ every 8 hours GI prophylaxis: Pantoprazole 40 mg p.o. daily Attestation I have seen and examined this patient with my resident , discussed the same with the resident/ANUSHA, and agree with the dictator's assessment and plan as written GENERAL: The patient is alert and oriented x3, not in any acute distress. Well developed, well nourished. HEENT: Pupils are round and equally reacting to light. EOMI. No scleral icterus. No conjunctival pallor. Normocephalic, atraumatic. No pharyngeal erythema. No thyromegaly. CARDIOVASCULAR: S1 and S2 present. No murmurs, rubs, or gallops. PULMONARY: Chest is clear to auscultation, no wheezing or crackles. ABDOMEN: Soft, nontender, nondistended, normoactive bowel sounds. No palpable organomegaly. MUSCULOSKELETAL: Right AKA EXTREMITIES: No cyanosis, clubbing, or pedal edema. NEUROLOGICAL: Gross neurological examination did not reveal any focal deficits. SKIN: No rashes. Dr. Clarke peacock Objective - Vital Signs Vital signs: Vital Signs Temp 97.7 F 11/12/24 07:40 Pulse 60 11/12/24 07:40 Resp 15 11/12/24 07:40 BP 133/68 11/12/24 07:40 Pulse Ox 99 11/12/24 07:40 FiO2 Intake & Output 11/11/24 11/12/24 11/12/24 18:59 06:59 18:59 Intake Total 200 120 Output Total 400 402 Balance -200 -282 Intake: Oral 200 120 Output: Urine 400 400 Stool 2 Other: Voiding Method Urinal Urinal # Bowel Movements 1 1 - Labs CBC & Chem 7: 11/10/24 18:10 11/12/24 03:45 Labs: Abnormal Lab Results - Last 24 Hours (Table) 11/11/24 11/11/24 11/11/24 Range/Units 11:22 16:42 20:21 POC Glucose (mg/dL) 202 H 213 H 335 H (70-110) mg/dL 11/12/24 Range/Units 06:03 POC Glucose (mg/dL) 297 H (70-110) mg/dL
[2024-11-12] MEDS: LOPERAMIDE 2 MG CAP PO STA (12:18)
[2024-11-12 16:53] LABS: Glucose,Whole Blood 257 mg/dL (70-110)
[2024-11-12 20:41] LABS: Glucose,Whole Blood 236 mg/dL (70-110)
[2024-11-13 06:21] LABS: Glucose,Whole Blood 388 mg/dL (70-110)
[2024-11-13 09:23] LABS: Basophils # (A) 0.03 X 10*3/uL (0.00-0.10); Basophils % (A) 0.3 %; Eosinophils # (A) 0.25 X 10*3/uL (0.04-0.35); Eosinophils % (A) 2.5 %; HCT 30.8 % (39.6-50.0); HGB 9.7 g/dL (13.0-17.0); Lymphocytes % (A) 23.6 %; MCH 27.2 pg (27.0-32.0); MCHC 31.5 g/dL (32.0-37.0); MCV 86.5 FL (80.0-97.0); Mean Platelet Volume 10.1 FL (9.5-12.2); Monocytes # (A) 0.68 X 10*3/uL (0.20-1.00); Monocytes % (A) 6.7 %; NRBC Per 100 WBC 0 X 10*3/uL (0.00-0.01); Neutrophils # (A) 6.76 X 10*3/uL (1.80-7.70); Neutrophils % (A) 66.4 %; Platelet Count 414 X 10*3/uL (140-440); RBC 3.56 X 10*6/uL (4.40-5.60); RDW 12.6 % (11.5-14.5); WBC 10.17 X 10*3/uL (4.50-10.00)
[2024-11-13] MEDS: LOPERAMIDE 2 MG CAP PO PRN (11:24)
[2024-11-13 11:28] LABS: Glucose,Whole Blood 303 mg/dL (70-110)
[2024-11-13 12:05] LABS: BUN/Creat Ratio 22.33 Ratio (12.00-20.00); Blood Urea Nitrogen 26.8 mg/dL (9.0-27.0); Calcium 8.8 mg/dL (8.7-10.3); Carbon Dioxide 26.6 mmol/L (21.6-31.8); Chloride 99 mmol/L (96-109); Glucose 332 mg/dL (70-110); Potassium 4.4 mmol/L (3.5-5.5); Sodium 136 mmol/L (135-145)
--- NOTE | 2024-11-13 13:54 | P.PN ---
Subjective Progress Note Date: 11/13/24 Principal diagnosis: Hospital course: Patient is a 59 year old male with past medical history of CAD, heart failure, diabetes mellitus, peripheral arterial disease with previous right fwblw-pnx-prcy amputation presenting to the hospital for preop clearance. The patient has been scheduled for left femoral popliteal bypass on 11/10/2024. Reportedly the patient is residing at a long-term care at [facility]. He had a recent debridement of the left foot with skin substitute and wound VAC. Anesthesia record cardiac arrest prior to procedure and the patient was not able to see a gear machine operator general over the weekend in the outpatient setting. He has been admitted for cardiac clearance prior to starting surgery on Thursday. Currently he complains of pain in the left lower extremity at the wound site. Denies fever, chills, shortness of breath, cough, chest pain, palpitations, abdominal pain, nausea, vomiting, hematuria, dysuria, hemato chezia, melena, headache, slurred speech, numbness, tingling, dizziness, lightheadedness, blurred vision, double vision. ED documentation reviewed. In the ED was treated with gabapentin, [place], Humalog, Lantus, Senokot, carvedilol, clonidine. Vitals on admission T 97.6 F, [place] 54 bpm, RR 16, BP 133/69, oxygen saturation 97% on room air EKG independently interpreted as sinus bradycardia, rate 54 bpm, QTc 425 ms Echocardiogram shows EF 50%, mildly increased left ventricular systolic volume, low normal LV systolic function, mildly thickened mitral valve apparatus Lexiscan Cardiolite stress test performed in the office Thursday was negative by EKG criteria, abnormal nuclear scan showing fixed inferior wall defect with normal LV function without any ischemia Labs on admission show WBC 12.9, hemoglobin 10.2, hematocrit 31.6, platelet count 403, APTT 19.2, sodium 132, potassium 5.4, BUN 53, creatinine 1.17, ALP 87, total bilirubin 0.8 11/12/24: Patient seen and examined at bedside today. BP today 133/68, pulse rate 60 bpm. C. diff negative. 11/13. Patient seen and examined. States he feels much better. Denies any acute issues overnight. Scheduled for surgery on Thursday Review of systems: Pertinent positives and negatives as discussed in HPI, a complete review of systems was performed and all other systems are negative. Vitals: Signs Reviewed Physical examination: General: nontoxic, no distress, appears at stated age, drowsy Derm: warm, dry, intact Head: atraumatic, normocephalic, symmetric Eyes: EOMI, anicteric sclera Mouth: no lip lesion, mucus membranes moist Cardiovascular: S1 S2 reg, no murmur Lungs: CTA bilateral, no rhonchi, no rales, no accessory muscle use Abdominal: soft, non-tender to palpation Extremities: Left foot is bandaged, right AKA, Neuro: Alert, Oriented, Gross neurological examination did not reveal any focal deficits. Psych: well appearing, appropriate affect Assessment/Plan: Patient is a 59 year old male with past medical history of atrial fibrillation, asthma, CAD, heart failure, diabetes mellitus, peripheral arterial disease with previous right fmiai-pst-bmyv amputation presenting to the hospital for preop clearance. Active: #. PAD with scheduled femoral bypass surgery 11/14 #. Previous right nfrwq-olr-dgjt amputation #. Nonhealing ulceration to dorsal and lateral aspect of the left foot Daily dressing changes Adaptic 4 x 4 and Kerlix to left foot wound Obtain type and screen N.p.o. after midnight on Thursday night Halve the dose of Lantus to 7 units SQ at bedtime on Thursday night Stop anticoagulation tomorrow Cardiology consulted for cardiac clearance, patient cleared for surgery with intermediate risk Continue telemetry monitoring Vascular surgery is following, intervention planned for Thursday #. Reactive leukocytosis WBC on admission 12.9 Monitor CBC #. Hyponatremia Sodium on admission 132 Monitor BMP #. Hyperkalemia Potassium on admission 5.4 Monitor BMP #. Nausea and vomiting Continue ondansetron 4 mg IVP every 8 hours as needed Chronic: #. Multivessel coronary artery disease on medical therapy #. Hypertension #. Dyslipidemia #. Diabetes #. History of nicotine dependence/drug abuse #. Neuropathy #. Constipation Continue carvedilol 25 mg p.o. every 12 hours, chlorthalidone 25 mg p.o. daily, clonidine 0.2 mg p.o. 3 times daily, Zetia 10 mg p.o. at bedtime, carbonate 3 mg p.o. 3 times daily, hydrochlorothiazide 25 mg p.o. daily, insulin glargine 40 units SQ at bedtime, insulin sliding scale, nifedipine 60 mg p.o. every 12 hours, MiraLAX 17 g p.o. daily as needed, Senokot p.o. every 12 hours Objective - Vital Signs Vital signs: Vital Signs Temp 98.3 F 11/13/24 07:09 Pulse 60 11/13/24 07:09 Resp 18 11/13/24 07:09 BP 138/71 11/13/24 07:09 Pulse Ox 98 11/13/24 07:09 FiO2 Intake & Output 11/12/24 11/13/24 11/13/24 18:59 06:59 18:59 Output Total 1150 Balance -1150 Output: Urine 1150 Other: Voiding Method Urinal # Voids 400 - Labs CBC & Chem 7: 11/13/24 03:58 11/13/24 03:58 Labs: Abnormal Lab Results - Last 24 Hours (Table) 11/12/24 11/12/24 11/13/24 Range/Units 16:52 20:40 03:58 WBC 10.17 H (4.50-10.00) X 10*3/uL RBC 3.56 L (4.40-5.60) X 10*6/uL Hgb 9.7 L (13.0-17.0) g/dL Hct 30.8 L (39.6-50.0) % MCHC 31.5 L (32.0-37.0) g/dL Immature Gran # 0.05 H (0.00-0.04) X 10*3/uL BUN/Creatinine Ratio (12.00-20.00) Ratio Glucose (70-110) mg/dL POC Glucose (mg/dL) 257 H 236 H (70-110) mg/dL 11/13/24 11/13/24 11/13/24 Range/Units 03:58 06:20 11:26 WBC (4.50-10.00) X 10*3/uL RBC (4.40-5.60) X 10*6/uL Hgb (13.0-17.0) g/dL Hct (39.6-50.0) % MCHC (32.0-37.0) g/dL Immature Gran # (0.00-0.04) X 10*3/uL BUN/Creatinine Ratio 22.33 H (12.00-20.00) Ratio Glucose 332 H (70-110) mg/dL POC Glucose (mg/dL) 388 H 303 H (70-110) mg/dL Microbiology - Last 24 Hours (Table) 11/11/24 11:08 Blood Culture - Preliminary Blood
[2024-11-13 16:30] LABS: Glucose,Whole Blood 228 mg/dL (70-110)
[2024-11-13 20:41] LABS: Glucose,Whole Blood 393 mg/dL (70-110)
[2024-11-14 04:31] LABS: HCT 32.1 % (39.0-53.0); HGB 10.5 gm/dL (13.0-17.5); MCH 28.2 pg (25.0-35.0); MCHC 32.8 g/dL (31.0-37.0); Mean Platelet Volume 7.6; Platelet Count 375 k/uL (150-450); RBC 3.73 m/uL (4.30-5.90); RDW 13.4 % (11.5-15.5); WBC 9.4 k/uL (3.8-10.6)
[2024-11-14 04:41] LABS: African American GFR (CKD) 75 (>60 ml/min/1.73 sqM); Anion Gap 8 mmol/L; Blood Urea Nitrogen 31 mg/dL (9-20); Calcium 8.5 mg/dL (8.4-10.2); Carbon Dioxide 25 mmol/L (22-30); Chloride 100 mmol/L (98-107); Glucose 271 mg/dL (74-99); Non-African American GFR(CKD) 64 (>60 ml/min/1.73 sqM); Potassium 4.6 mmol/L (3.5-5.1); Sodium 133 mmol/L (137-145)
[2024-11-14 06:13] LABS: Glucose,Whole Blood 343 mg/dL (70-110)
[2024-11-14] MEDS: IV FLUID CONTINUATION 1,000 ML IV ONE (06:25)
[2024-11-14] MEDS: INSULIN LISPRO (HumaLOG) 100 UNIT/ML 10 mL VL SQ ONE (06:30)
[2024-11-14] MEDS: ONDANSETRON 4 MG/2 ML VIAL IVP PRN (06:52)
[2024-11-14] MEDS: FAMOTIDINE 20 MG/2 ML VIAL IV STA (07:00)
[2024-11-14] MEDS ORDERED: MIDAZOLAM 2 MG/2 ML VIAL ONE (07:30)
[2024-11-14] MEDS ORDERED: HEPARIN SODIUM,PORCINE 10,000 UNIT/ML 1 ML VIAL ONE (07:30)
[2024-11-14] MEDS ORDERED: fentaNYL (PF) 50 MCG/ML 2 ML AMP ONE (07:30)
[2024-11-14] MEDS ORDERED: NEOSTIGMINE 1 MG/ML 10 ML VIAL ONE (07:30)
[2024-11-14] MEDS ORDERED: HEPARIN SODIUM,PORCINE 5,000 UNIT/ML 1 ML VIAL ONE (07:30)
[2024-11-14] MEDS ORDERED: ROCURONIUM 10 MG/ML (5 ML VIAL) IV ONE (07:30)
[2024-11-14] MEDS ORDERED: PHENYLEPHRINE 10 MG/ML VIAL ONE (07:30)
[2024-11-14] MEDS ORDERED: PROPOFOL 10 MG/ML 20 ML VIAL IV ONE (07:30)
[2024-11-14] MEDS ORDERED: LIDOCAINE 1% INJ 10MG/ML (20 ML MDV) ONE (07:30)
[2024-11-14] MEDS ORDERED: HYDROmorphone (PF) 1 MG/ML ONE (07:30)
[2024-11-14] MEDS ORDERED: INSULIN REGULAR 100 UNIT/ML VIAL (IV) ONE (07:30)
[2024-11-14] MEDS ORDERED: GLYCOPYRROLATE 0.2 MG/ML 2 ML VIAL ONE (07:30)
[2024-11-14] MEDS ORDERED: SUCCINYLCHOLINE CHLORIDE 200 MG/10 ML VIAL IV ONE (07:30)
[2024-11-14] MEDS ORDERED: ePHEDrine 50 MG/ML 1 ML VIAL ONE (07:30)
[2024-11-14] MEDS: SODIUM CHLORIDE 0.9% 50 ML with ceFAZolin 2,000 MG IV ONE (08:14)
[2024-11-14] MEDS: HEPARIN SODIUM,PORCINE 10,000 UNIT in SODIUM CHLORIDE 0.9% 1,000 ML IRRIGATION ONE (08:36)
[2024-11-14] MEDS: CEFAZOLIN IRRIGATION ONE (08:38)
[2024-11-14] MEDS: SODIUM CHLORIDE 0.9% IRRIGATION ONE (08:38)
[2024-11-14] MEDS: LACTATED RINGERS IRRIGATION ONE (09:03)
[2024-11-14] MEDS: HEPARIN SODIUM PORCINE IRRIGATION ONE (09:03)
[2024-11-14] MEDS: DEXTROSE 5%-LACTATED RINGERS 1,000 ML IV ONE (09:03)
[2024-11-14 09:07] LABS: Glucose,Whole Blood 237 mg/dL (70-110)
[2024-11-14 10:16] LABS: Glucose,Whole Blood 220 mg/dL (70-110)
[2024-11-14] MEDS: THROMBIN (BOVINE) 5,000 UNIT VIAL TOPICAL ONE (10:38)
[2024-11-14] MEDS: LACTATED RINGERS 1,000 ML IV ONE (11:00)
--- NOTE | 2024-11-14 13:14 | P.OP ---
Date of Procedure: 11/14/24 Preoperative Diagnosis: Left Femoal / Tibial Artery occlusion. 2. Non healing ulcer dorsum left foot measuring 6 x 7 cm x 2 to 3 mm in depth as well as nonhealing wound lateral aspect of the left foot measuring 5-1/2 x 2 mm in length and width and approximately 2 mm in depth. Postoperative Diagnosis: Same. Procedure(s) Performed: 1: Left femoral to posterior tibial vein bypass graft utilizing cadaveric vein. 2: Debridement wounds left foot with application of wound VAC. 3: Left common femoral thromboendarterectomy. Anesthesia: GETA Surgeon: Stephen Dennison Estimated Blood Loss (ml): 300 Pathology: none sent Condition: stable Disposition: no change Indications for Procedure: Patient is a 59-year-old male with a longstanding history of diabetes mellitus, atherosclerotic and diabetic vascular disease as well as significant noncompliance. He had presented with ischemic changes of the dorsum of the left foot. This was initially debrided and then at the time of debridement it was felt the patient would require improved arterial perfusion of the left foot to allow for healing. CTA was performed which demonstrated the superficial femoral and popliteal arterial segments to be occluded however the posterior tibial artery was open. Patient had no usable vein and patient was thus offered bypass utilizing cadaver vein. The procedure, risk and benefits were discussed. All questions were answered patient's satisfaction. Consent form was signed. Description of Procedure: Patient was brought the op room placed in the spine position administered general endotracheal anesthesia administered by the department of anesthesiology. Intravenous prophylactic antibiotics were administered in the perioperative phase. Hess catheter was placed to gravity drainage. The left lower extremity sterilely prepped and draped in usual manner. Patient had a previous left femoral-popliteal bypass graft utilizing PTFE which had thrombosed. The previous groin incision was opened sharply and carried down through the subcutaneous tissues. Hemostasis was achieved using electrocautery. Incision was deepened through the scar tissue down to the level of the thrombosed bypass graft. This was dissected free of investing tissues and utilized to dissect out the common femoral artery. Dissection was carried to the inguinal ligament where an excellent pulse and the artery was identified. At this level the artery was encircled with vessel loop. The dissection was then carried along the lateral aspect and the profundus femoris artery was identified and encircled with Vesseloops. The wound was then packed with antibiotic soaked gauze. Attention was turned to the upper calf area where skin incision was made medially through the previous incision carried down through subcutaneous tissues. Hemostasis was achieved using electrocautery. Dense scar tissue was encountered. Venous bleeding was encountered and this was controlled with Prolene suture. The proximal portion of the posterior tibial artery was identified and dissected free of investing tissues and encircled with Vesseloops. The artery itself felt reasonable for outflow purposes. The patient was systemically heparinized and ACT's were drawn and additional doses of heparin were administered based on ACT result. The vein was then tested for leaks and no leak was identified. It was tunneled between the 2 incisions and the patient was systemically heparinized. After ad equate circulation time the Vesseloops surrounding the profundus, common femoral and superficial femoral arteries were drawn close and arteriotomy was made in the common femoral artery lateral to the takeoff of the previously performed bypass graft. The arteriotomy was extended. Thromboendarterectomy was performed and a thrombus was removed from the profundus femoris artery with excellent backbleeding identified. The vein was spatulated to match the arteriotomy and end-to-side anastomosis between the vein and the artery was completed with 5-0 Prolene suture. Bleeding was encountered at the common femoral artery at the clamp site and this required control with 5-0 Prolene suture with the aid of a pledget. Some bleeding from the profundus was also encountered and this was controlled with 6-0 Prolene suture. Excellent pulsatile flow in the distal end of the bypass graft was identified. The vein graft was occluded. The Vesseloops surrounding the posterior tibial artery were drawn closed in a longitudinal arteriotomy in the posterior tibial artery was made and extended with Dickerson Metzenbaums scissors. The artery excepted a 2 mm dilator and good backbleeding was identified. The vein graft was cut to the appropriate length and spatulated match the arteriotomy and end-to-side anastomosis was created between the artery and the vein graft utilizing 6-0 Prolene suture placed in running fashion. Just prior to completion of the anastomotic line the artery was backbled and the graft was flushed and no thrombus was retrieved. The anastomotic line was completed and flow was restored through the vein graft into the tibial artery. Good pulse within the tibial artery was identified. Excellent Doppler signal was obtained utilizing hand-held continuous-wave Doppler. Hemostasis was adequate. Both wounds were then flushed with heparinized saline and finally with antibiotic-containing solution. Hemostasis was judged to be adequate. Both wounds were closed in multiple layers with 3-0 Vicryl suture in the dermis was reapproximated 4-0 Monocryl placed in running intradermal fashion. Attention was turned to the dorsum and lateral aspect of the foot. Utilizing surgical scalpel the wounds were debrided down to the tendinous level on the dorsum and into the fat pad laterally. It was then a scrub brush was utilized to help further debride this tissue and a tissue culture was obtained. Improved bleeding characteristics were identified. Wound VAC sponge was placed in both wounds and a sponge bridge was utilized to connect the 2 separate wounds. Mastisol was applied to the skin and the adhesive dressing was applied. It was then attached to the suction device. A leak was identified however we could not identify the source of the leak however partial suction was obtained. Additional adhesive dressing was applied with no improvement. Both surgical incisions were then dressed appropriately. Patient was taken the recovery area in satisfactory and stable condition.
[2024-11-14 13:49] LABS: Glucose,Whole Blood 168 mg/dL (70-110)
--- NOTE | 2024-11-14 13:51 | P.PN ---
Subjective Progress Note Date: 11/14/24 Principal diagnosis: Hospital course: Patient is a 59 year old male with past medical history of CAD, heart failure, diabetes mellitus, peripheral arterial disease with previous right suzld-awh-merl amputation presenting to the hospital for preop clearance. The patient has been scheduled for left femoral popliteal bypass on 11/10/2024. Reportedly the patient is residing at a long-term care at [facility]. He had a recent debridement of the left foot with skin substitute and wound VAC. Anesthesia record cardiac arrest prior to procedure and the patient was not able to see a cherry picker operator over the weekend in the outpatient setting. He has been admitted for cardiac clearance prior to starting surgery on Thursday. Currently he complains of pain in the left lower extremity at the wound site. Denies fever, chills, shortness of breath, cough, chest pain, palpitations, abdominal pain, nausea, vomiting, hematuria, dysuria, hemato chezia, melena, headache, slurred speech, numbness, tingling, dizziness, lightheadedness, blurred vision, double vision. ED documentation reviewed. In the ED was treated with gabapentin, [place], Humalog, Lantus, Senokot, carvedilol, clonidine. Vitals on admission T 97.6 F, [place] 54 bpm, RR 16, BP 133/69, oxygen saturation 97% on room air EKG independently interpreted as sinus bradycardia, rate 54 bpm, QTc 425 ms Echocardiogram shows EF 50%, mildly increased left ventricular systolic volume, low normal LV systolic function, mildly thickened mitral valve apparatus Lexiscan Cardiolite stress test performed in the office Thursday was negative by EKG criteria, abnormal nuclear scan showing fixed inferior wall defect with normal LV function without any ischemia Labs on admission show WBC 12.9, hemoglobin 10.2, hematocrit 31.6, platelet count 403, APTT 19.2, sodium 132, potassium 5.4, BUN 53, creatinine 1.17, ALP 87, total bilirubin 0.8 11/12/24: Patient seen and examined at bedside today. BP today 133/68, pulse rate 60 bpm. C. diff negative. 11/13. Patient seen and examined. States he feels much better. Denies any acute issues overnight. Scheduled for surgery on Thursday11/14/24: Patient is undergoing left femoral-popliteal bypass surgery today. BP today 153/67. Labs today show hemoglobin 10.5, sodium 133, BUN 31, creatinine 1.21 and glucose 343. Blood culture shows no growth after 48 hours. Review of systems: Pertinent positives and negatives as discussed in HPI, a complete review of systems was performed and all other systems are negative. Vitals: Signs Reviewed Physical examination: General: nontoxic, no distress, appears at stated age, drowsy Derm: warm, dry, intact Head: atraumatic, normocephalic, symmetric Eyes: EOMI, anicteric sclera Mouth: no lip lesion, mucus membranes moist Cardiovascular: S1 S2 reg, no murmur Lungs: CTA bilateral, no rhonchi, no rales, no accessory muscle use Abdominal: soft, non-tender to palpation Extremities: Left foot is bandaged, right AKA, Neuro: Alert, Oriented, Gross neurological examination did not reveal any focal deficits. Psych: well appearing, appropriate affect Assessment/Plan: Patient is a 59 year old male with past medical history of atrial fibrillation, asthma, CAD, heart failure, diabetes mellitus, peripheral arterial disease with previous right jaygt-vwq-xblg amputation presenting to the hospital for preop clearance. Active: #. Left Femoal / Tibial Artery occlusion #. Nonhealing ulceration to dorsal and lateral aspect of the left foot #. S/p Left femoral to posterior tibial vein bypass graft utilizing cadaveric vein; Debridement wounds left foot with application of wound VAC; Left common femoral thromboendarterectomy 11/14/24 #. Previous right xysyz-yfx-vxyr amputation Daily dressing changes Adaptic 4 x 4 and Kerlix to left foot wound Halve the dose of Lantus to 7 units SQ at bedtime on Thursday night Cardiology consulted for cardiac clearance, patient cleared for surgery with intermediate risk Continue telemetry monitoring Vascular surgery is following, DVT prophylaxis and pain management per vascular surgery #. Hyponatremia likely secondary to diuretics Sodium on admission 132 Discontinue Hydrochlorthiazide Monitor BMP #. Nausea and vomiting Continue ondansetron 4 mg IVP every 8 hours as needed #. Hyperkalemia, resolved #. Reactive leukocytosis, resolved Chronic: #. Multivessel coronary artery disease on medical therapy #. Hypertension #. Dyslipidemia #. Diabetes #. History of nicotine dependence/drug abuse #. Neuropathy #. Constipation Continue carvedilol 25 mg p.o. every 12 hours, chlorthalidone 25 mg p.o. daily, clonidine 0.2 mg p.o. 3 times daily, Zetia 10 mg p.o. at bedtime, carbonate 3 mg p.o. 3 times daily, insulin glargine 14 units SQ at bedtime, insulin sliding scale, nifedipine 60 mg p.o. every 12 hours, MiraLAX 17 g p.o. daily as needed, Senokot p.o. every 12 hours F: None E: Replete as required GI prophylaxis: Pantoprazole 40 mg p.o. daily Objective - Vital Signs Vital signs: Vital Signs Temp 97.7 F 11/14/24 00:57 Pulse 66 11/14/24 06:45 Resp 16 11/14/24 06:45 BP 153/67 11/14/24 06:45 Pulse Ox 99 11/14/24 06:45 FiO2 Intake & Output 11/13/24 11/14/24 11/14/24 18:59 06:59 18:59 Intake Total 300 752 Output Total 400 Balance -100 752 Intake: IV 300 752 Output: Urine 400 Other: Voiding Method Urinal # Voids 3 # Bowel Movements 1 - Labs CBC & Chem 7: 11/14/24 03:48 11/14/24 03:48 Labs: Abnormal Lab Results - Last 24 Hours (Table) 11/13/24 11/13/24 11/13/24 Range/Units 03:58 03:58 11:26 WBC 10.17 H (4.50-10.00) X 10*3/uL RBC 3.56 L (4.40-5.60) X 10*6/uL Hgb 9.7 L (13.0-17.0) g/dL Hct 30.8 L (39.6-50.0) % MCHC 31.5 L (32.0-37.0) g/dL Immature Gran # 0.05 H (0.00-0.04) X 10*3/uL Sodium (137-145) mmol/L BUN (9-20) mg/dL BUN/Creatinine Ratio 22.33 H (12.00-20.00) Ratio Glucose 332 H (70-110) mg/dL POC Glucose (mg/dL) 303 H (70-110) mg/dL 11/13/24 11/13/24 11/14/24 Range/Units 16:29 20:41 03:48 WBC (4.50-10.00) X 10*3/uL RBC 3.73 L (4.40-5.60) X 10*6/uL Hgb 10.5 L (13.0-17.0) g/dL Hct 32.1 L (39.6-50.0) % MCHC (32.0-37.0) g/dL Immature Gran # (0.00-0.04) X 10*3/uL Sodium (137-145) mmol/L BUN (9-20) mg/dL BUN/Creatinine Ratio (12.00-20.00) Ratio Glucose (70-110) mg/dL POC Glucose (mg/dL) 228 H 393 H (70-110) mg/dL 11/14/24 11/14/24 Range/Units 03:48 06:12 WBC (4.50-10.00) X 10*3/uL RBC (4.40-5.60) X 10*6/uL Hgb (13.0-17.0) g/dL Hct (39.6-50.0) % MCHC (32.0-37.0) g/dL Immature Gran # (0.00-0.04) X 10*3/uL Sodium 133 L (137-145) mmol/L BUN 31 H (9-20) mg/dL BUN/Creatinine Ratio (12.00-20.00) Ratio Glucose 271 H (70-110) mg/dL POC Glucose (mg/dL) 343 H (70-110) mg/dL Microbiology - Last 24 Hours (Table) 11/11/24 11:08 Blood Culture - Preliminary Blood
[2024-11-14 16:22] LABS: Glucose,Whole Blood 205 mg/dL (70-110)
[2024-11-14] MEDS: AMPICILLIN-SULBACTAM 3 GM in SODIUM CHLORIDE 0.9% 100 ML IVPB SCH (16:41)
[2024-11-14] MEDS: ACETAMINOPHEN TAB 325 MG TAB PO PRN (20:15)
[2024-11-14 20:26] LABS: Glucose,Whole Blood 302 mg/dL (70-110)
[2024-11-14] MEDS ORDERED: NON FORMULARY DRUG (Amino Acids/Protein Hydrolys [Pro-Stat Awc Liquid] 887 ML Liquid) PO SCH (21:00)
[2024-11-15 06:15] LABS: Glucose,Whole Blood 167 mg/dL (70-110)
[2024-11-15 07:27] LABS: HCT 26.5 % (39.0-53.0); MCH 27.1 pg (25.0-35.0); MCHC 30.9 g/dL (31.0-37.0); MCV 87.7 fL (80.0-100.0); Mean Platelet Volume 7.5; Platelet Count 351 k/uL (150-450); RBC 3.02 m/uL (4.30-5.90); RDW 13.7 % (11.5-15.5); WBC 11.8 k/uL (3.8-10.6)
[2024-11-15 07:33] LABS: HGB 8.2 gm/dL (13.0-17.5)
[2024-11-15 07:39] LABS: African American GFR (CKD) 75 (>60 ml/min/1.73 sqM); Anion Gap 5 mmol/L; Blood Urea Nitrogen 19 mg/dL (9-20); Calcium 8.6 mg/dL (8.4-10.2); Carbon Dioxide 30 mmol/L (22-30); Chloride 100 mmol/L (98-107); Glucose 133 mg/dL (74-99); Non-African American GFR(CKD) 65 (>60 ml/min/1.73 sqM); Potassium 4.1 mmol/L (3.5-5.1); Sodium 135 mmol/L (137-145)
[2024-11-15] MEDS: ASPIRIN 81 MG PO SCH (07:57)
[2024-11-15] MEDS: CHLORTHALIDONE 25 MG TAB PO SCH (07:57)
--- NOTE | 2024-11-15 09:11 | P.PN ---
Subjective Progress Note Date: 11/15/24 Principal diagnosis: Peripheral arterial disease status post left femoropopliteal bypass Patient is seen and examined as a follow-up. He is postop day #1 for left femoral-popliteal bypass graft with cadaver vein. Patient states he does have some pain in his left calf foot pain is improved. Leg is warm. He denies any active bleeding through the night from his left groin or Incision. Vital signs have been stable. He has been afebrile. He is voiding without difficulty. No shortness of breath, chest pain, abdominal pain, nausea or vomiting. Today's hemoglobin 8.2. Objective - Vital Signs Vital signs: Vital Signs Temp 99.7 F H 11/15/24 07:49 Pulse 76 11/15/24 07:49 Resp 16 11/15/24 07:49 BP 162/80 11/15/24 07:49 Pulse Ox 99 11/15/24 07:49 FiO2 Intake & Output 11/14/24 11/15/24 11/15/24 18:59 06:59 18:59 Intake Total 1754 20 Output Total 1300 600 Balance 454 -580 Weight 72.575 kg 74 kg Intake: IV 1754 20 Invasive Line 1 20 Output: Gastric Drainage 0 Urine 950 600 Stool 0 Urine/Stool Mix 0 Emesis 0 Oral Regurgitation 0 Estimated Blood Loss 350 Other 0 Other: Voiding Method Urinal # Voids 0 # Bowel Movements 0 - Exam General appearance: The patient is alert, oriented, appears in no acute distress. HET: Head is normocephalic and atraumatic. Neck: Supple. Heart: Regular. Lungs: Equal expansion, normal respiratory effort. Abdomen: Soft, nontender, nondistended. Extremities: Right AKA. Left lower extremity warm to the touch with good capillary refill. Left groin incision with dressing with old blood noted. Left calf tender to palpation, incision with dressing with old blood noted. Wound VAC in place to left foot wounds. Positive Doppler signal at popliteal, PT and bypass graft. Neurological: No focal deficits. Strength and sensation are grossly intact. - Labs CBC & Chem 7: 11/15/24 05:53 11/15/24 05:53 Labs: Abnormal Lab Results - Last 24 Hours (Table) 11/14/24 11/14/24 11/14/24 Range/Units 09:06 10:14 13:45 WBC (3.8-10.6) k/uL RBC (4.30-5.90) m/uL Hgb (13.0-17.5) gm/dL Hct (39.0-53.0) % MCHC (31.0-37.0) g/dL Sodium (137-145) mmol/L Glucose (74-99) mg/dL POC Glucose (mg/dL) 237 H 220 H 168 H (70-110) mg/dL 11/14/24 11/14/24 11/15/24 Range/Units 16:20 20:25 05:53 WBC 11.8 H (3.8-10.6) k/uL RBC 3.02 L (4.30-5.90) m/uL Hgb 8.2 L D (13.0-17.5) gm/dL Hct 26.5 L (39.0-53.0) % MCHC 30.9 L (31.0-37.0) g/dL Sodium (137-145) mmol/L Glucose (74-99) mg/dL POC Glucose (mg/dL) 205 H 302 H (70-110) mg/dL 11/15/24 11/15/24 Range/Units 05:53 06:13 WBC (3.8-10.6) k/uL RBC (4.30-5.90) m/uL Hgb (13.0-17.5) gm/dL Hct (39.0-53.0) % MCHC (31.0-37.0) g/dL Sodium 135 L (137-145) mmol/L Glucose 133 H (74-99) mg/dL POC Glucose (mg/dL) 167 H (70-110) mg/dL Microbiology - Last 24 Hours (Table) 11/11/24 11:08 Blood Culture - Preliminary Blood Assessment and Plan Assessment: 1. Postop day #1 for left femoral to popliteal bypass graft with cadaver vein and debridement of left foot wounds with wound VAC application 2. Nonhealing ulceration to dorsal and lateral aspect of left foot 3. 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 Previous smoker 6. History of atrial fibrillation 7. History of coronary artery disease 8. Hypertension and hyperlipidemia 9. Previous right fdrfs-qki-twcn amputation Plan: 1. Wound VAC to left foot wounds, change on Wednesdays and Fridays 2. Consistent carbohydrate diet 3. Activity as tolerated 4. Continue IV antibiotics as ordered 5. Plan is for discharge back to [facility] 6. Rest of medical management per primary medical team Thank you for this consultation, we will continue to follow. Anticipate discharge tomorrow. The impression and plan of care has been dictated as directed. Dr. Alanis I performed a history and examination of this patient, discussed the same with the dictator. I agree with the dictator's note ,documented as a scribe. Any additional findings or plans will be noted.
--- NOTE | 2024-11-15 10:29 | P.CONS ---
History of Present Illness - Reason for Consult Consult date: 11/15/24 wound vac - History of Present Illness This is a 59-year-old patient with past medical history significant for diabetes coronary artery disease peripheral artery disease type pretension and high cholesterol. Patient underwent a femoral-popliteal bypass with cadaver vein. Also surgical debridement 2 ulcerations to the left dorsal and lateral foot. Patient was having difficulty with his negative pressure wound VAC not able to have suction however the wound VAC is currently working without any difficulties. Review Of Systems: Constitutional: No fever, no chills, no night sweats. No weight change. No weakness, fatigue or lethargy. No daytime sleepiness. Integumentary:reports wounds, no lesions. No rash or pruritus. No unusual bruising. No change in hair or nails. Physical exam: General Appearance: Alert, cooperative, no distress, appears stated age. Skin: See HPI all other Skin color, texture, tugor normal, no rashes or lesions. Neurologic: Alert oriented x3 Assessment: 1. Nonhealing ulceration with fat layer exposure other part of left foot 2. Arthrosclerosis of [place] vessel with ulceration to foot 3. Diabetic foot ulcer Plan: 1. Apply negative pressure wound VAC at 125 mmHg with black foam changing Thursday and Thursday. Patient may benefit from advanced wound care and wound care setting. Would be happy to see him upon discharge. Thank you for the consultation any questions please contact the wound care center DNP note has been reviewed and discussed with Dr. Altamirano and the impression and plan of care has been directed as dictated. Past Medical History Past Medical History: Atrial Fibrillation, Asthma, Coronary Artery Disease (CAD), Heart Failure, Diabetes Mellitus, Deep Vein Thrombosis (DVT), Eye Disorder, Hyperlipidemia, Hypertension, Myocardial Infarction (LA), Pneumonia, Renal Disease, Vascular Disorder Additional Past Medical History / Comment(s): [facility]-able to stand/pivot transfers,obtaining therapy at [facility] and learning to walk with prosthesis on rt AKA but unable to wt bear currently on left foot w./ wound,hx uvitis glaucoma rt eye, PVD, dvt to lower left leg,anemia,acute kidney failure in past,paroxysmal afib Last Myocardial Infarction Date:: unknown History of Any Multi-Drug Resistant Organisms: MRSA Year Discovered:: 06/30/20 MDRO Source:: Left Leg Past Surgical History: Hernia Repair, Orthopedic Surgery Additional Past Surgical History / Comment(s): aortgram w/ runnoff, eye surg, bilateral knee SX, left vein stripping in 02/2020 x2, vein graft and toe amp utation rt bka 2023,rt AKA ,amputation 1rst & 2nd digits left foot Past Anesthesia/Blood Transfusion Reactions: No Reported Reaction Additional Past Anesthesia/Blood Transfusion Reaction / Comm: no problems with prior blood transfusion Past Psychological History: No Psychological Hx Reported Additional Psychological History / Comment(s): Pt resides in LTC home Smoking Status: Former smoker Past Alcohol Use History: Rare Additional Past Alcohol Use History / Comment(s): quit smoking at 26,started at age 17,<1ppd Past Drug Use History: None Reported Additional Drug Use History / Comment(s): no marijuana while at [employer] - Past Family History Mother History Unknown: Yes Brother(s) Family Medical History: COPD Additional Family Medical History / Comment(s): passed from COPD Father Family Medical History: Myocardial Infarction (LA) Additional Family Medical History / Comment(s): passed from LA Medications and Allergies Home Medications Medication Instructions Recorded Confirmed Type Acetaminophen Tab [Tylenol] 650 mg PO Q4H PRN 05/25/24 11/10/24 History Aspirin EC [Ecotrin Low Dose] 81 mg PO DAILY 05/25/24 11/10/24 History Gabapentin [Neurontin] 300 mg PO TID 05/25/24 11/10/24 History Sennosides-Docusate Sodium 1 tab PO Q12H 05/25/24 11/10/24 History [Senokot-S] cloNIDine HCL [Catapres] 0.2 mg PO TID 05/25/24 11/10/24 History Amino Acids/Protein Hydrolys 30 ml PO BID 11/04/24 11/10/24 History [Pro-Stat Awc Liquid] Chlorthalidone [Hygroton] 25 mg PO DAILY 11/04/24 11/10/24 History Ezetimibe [Zetia] 10 mg PO HS 11/04/24 11/10/24 History HYDROcodone/APAP 7.5-325MG [[place] 1 tab PO Q4H PRN 11/04/24 11/10/24 History 7.5-325] Insulin Glargine (Lantus) [Lantus 14 unit SQ HS 11/04/24 11/10/24 History Vial] Magnesium Oxide [Mag-Ox] 400 mg PO DAILY 11/04/24 11/10/24 History NIFEdipine XL [Procardia XL] 60 mg PO Q12HR 11/04/24 11/10/24 History hydroCHLOROthiazide [Hydrodiuril] 25 mg PO DAILY 11/04/24 11/10/24 History polyethylene glycoL 3350 [Miralax] 17 gm PO DAILY PRN 11/04/24 11/10/24 History Insulin Lispro [humaLOG Kwikpen] See Protocol SQ ACHS 11/08/24 11/10/24 History carvediloL [Coreg*] 25 mg PO Q12H 11/10/24 11/10/24 History Allergies Allergy/AdvReac Type Severity Reaction Status Date / Time atorvastatin [From Lipitor] Allergy Swelling Verified 11/10/24 17:35 ibuprofen Allergy Swelling Verified 11/10/24 17:35 pregabalin [From Lyrica] Allergy Swelling Verified 11/10/24 17:35 Physical Exam Vitals: Vital Signs Temp Pulse Pulse Resp BP Pulse Ox 11/15/24 07:49 99.7 F H 76 16 162/80 99 11/15/24 04:16 99.3 F 18 154/74 98 11/14/24 23:30 99.7 F H 19 123/68 99 11/14/24 20:00 100.4 F H 18 146/77 100 11/14/24 15:18 98.5 F 17 130/74 95 11/14/24 14:27 69 18 153/62 100 11/14/24 14:12 70 16 159/63 99 11/14/24 13:57 70 16 150/61 99 11/14/24 13:42 66 16 154/68 100 11/14/24 13:27 68 16 151/73 99 11/14/24 13:12 97 F L 59 L 13 146/65 100 Intake and Output 11/14/24 11/15/24 11/15/24 22:59 06:59 14:59 Intake Total 10 10 10 Output Total 100 500 450 Balance -90 -490 -440 Intake: IV 10 10 10 Invasive Line 1 10 10 10 Output: Gastric Drainage 0 Urine 100 500 450 Stool 0 Urine/Stool Mix 0 Emesis 0 Oral Regurgitation 0 Other 0 Other: Voiding Method Urinal Urinal # Voids 0 2 # Bowel Movements 0 Weight 74 kg Results CBC & Chem 7: 11/15/24 05:53 11/15/24 05:53 Labs: Abnormal Lab Results - Last 24 Hours (Table) 11/14/24 11/14/24 11/14/24 Range/Units 13:45 16:20 20:25 WBC (3.8-10.6) k/uL RBC (4.30-5.90) m/uL Hgb (13.0-17.5) gm/dL Hct (39.0-53.0) % MCHC (31.0-37.0) g/dL Sodium (137-145) mmol/L Glucose (74-99) mg/dL POC Glucose (mg/dL) 168 H 205 H 302 H (70-110) mg/dL 11/15/24 11/15/24 11/15/24 Range/Units 05:53 05:53 06:13 WBC 11.8 H (3.8-10.6) k/uL RBC 3.02 L (4.30-5.90) m/uL Hgb 8.2 L D (13.0-17.5) gm/dL Hct 26.5 L (39.0-53.0) % MCHC 30.9 L (31.0-37.0) g/dL Sodium 135 L (137-145) mmol/L Glucose 133 H (74-99) mg/dL POC Glucose (mg/dL) 167 H (70-110) mg/dL Microbiology - Last 24 Hours (Table) 11/11/24 11:08 Blood Culture - Preliminary Blood Assessment and Plan (1) Non-pressure chronic ulcer of other part of left foot with fat layer exposed Current Visit: Yes Status: Acute Code(s): L97.522 - NON-PRS CHRONIC ULCER OTH PRT LEFT FOOT W FAT LAYER EXPOSED SNOMED Code(s): 59574100889963853 (2) Atherosclerosis of [place] arteries of left leg with ulceration of other part of foot Current Visit: Yes Status: Acute Code(s): I70.245 - ATHSCL [place] ARTERIES OF LEFT LEG W ULCERATION OTH PRT FOOT SNOMED Code(s): 6728559383 (3) Type 2 diabetes mellitus with foot ulcer Current Visit: Yes Status: Acute Code(s): E11.621 - TYPE 2 DIABETES MELLITUS WITH FOOT ULCER; L97.509 - NON-PRESSURE CHRONIC ULCER OTH PRT UNSP FOOT W UNSP SEVERITY SNOMED Code(s): 7070636675311
[2024-11-15 11:42] LABS: Glucose,Whole Blood 166 mg/dL (70-110)
--- NOTE | 2024-11-15 12:12 | P.PN ---
Subjective Progress Note Date: 11/15/24 Principal diagnosis: Hospital course: Patient is a 59 year old male with past medical history of CAD, heart failure, diabetes mellitus, peripheral arterial disease with previous right djskf-fei-kkua amputation presenting to the hospital for preop clearance. The patient has been scheduled for left femoral popliteal bypass on 11/10/2024. Reportedly the patient is residing at a long-term care at [facility]. He had a recent debridement of the left foot with skin substitute and wound VAC. Anesthesia record cardiac arrest prior to procedure and the patient was not able to see a casino supervisor over the weekend in the outpatient setting. He has been admitted for cardiac clearance prior to starting surgery on Thursday. Currently he complains of pain in the left lower extremity at the wound site. Denies fever, chills, shortness of breath, cough, chest pain, palpitations, abdominal pain, nausea, vomiting, hematuria, dysuria, hemato chezia, melena, headache, slurred speech, numbness, tingling, dizziness, lightheadedness, blurred vision, double vision. ED documentation reviewed. In the ED was treated with gabapentin, [place], Humalog, Lantus, Senokot, carvedilol, clonidine. Vitals on admission T 97.6 F, [place] 54 bpm, RR 16, BP 133/69, oxygen saturation 97% on room air EKG independently interpreted as sinus bradycardia, rate 54 bpm, QTc 425 ms Echocardiogram shows EF 50%, mildly increased left ventricular systolic volume, low normal LV systolic function, mildly thickened mitral valve apparatus Lexiscan Cardiolite stress test performed in the office Thursday was negative by EKG criteria, abnormal nuclear scan showing fixed inferior wall defect with normal LV function without any ischemia Labs on admission show WBC 12.9, hemoglobin 10.2, hematocrit 31.6, platelet count 403, APTT 19.2, sodium 132, potassium 5.4, BUN 53, creatinine 1.17, ALP 87, total bilirubin 0.8 11/12/24: Patient seen and examined at bedside today. BP today 133/68, pulse rate 60 bpm. C. diff negative. 11/13. Patient seen and examined. States he feels much better. Denies any acute issues overnight. Scheduled for surgery on Thursday11/14/24: Patient is undergoing left femoral-popliteal bypass surgery today. BP today 153/67. Labs today show hemoglobin 10.5, sodium 133, BUN 31, creatinine 1.21 and glucose 343. Blood culture shows no growth after 48 hours. 11/15/24: Patient evaluated at bedside today. Vital signs are stable. Labs today show WBC 11.8, hemoglobin 8.2. Review of systems: Pertinent positives and negatives as discussed in HPI, a complete review of systems was performed and all other systems are negative. Vitals: Signs Reviewed Physical examination: General: nontoxic, no distress, appears at stated age, drowsy Derm: warm, dry, intact Head: atraumatic, normocephalic, symmetric Eyes: EOMI, anicteric sclera Mouth: no lip lesion, mucus membranes moist Cardiovascular: S1 S2 reg, no murmur Lungs: CTA bilateral, no rhonchi, no rales, no accessory muscle use Abdominal: soft, non-tender to palpation Extremities: incision with dressing with old blood on left calf, right AKA Neuro: Alert, Oriented, Gross neurological examination did not reveal any focal deficits. Psych: well appearing, appropriate affect Assessment/Plan: Patient is a 59 year old male with past medical history of atrial fibrillation, asthma, CAD, heart failure, diabetes mellitus, peripheral arterial disease with previous right ksjgg-bwr-pupf amputation presenting to the hospital for preop clearance. Active: #. Left Femoal / Tibial Artery occlusion #. Nonhealing ulceration to dorsal and lateral aspect of the left foot #. S/p Left femoral to posterior tibial vein bypass graft utilizing cadaveric vein; Debridement wounds left foot with application of wound VAC; Left common femoral thromboendarterectomy 11/14/24 #. Previous right xtefm-lds-dhqd amputation Daily dressing changes Adaptic 4 x 4 and Kerlix to left foot wound Continue Unasyn 3 gm IVPB Q6HR Cardiology consulted for cardiac clearance, patient cleared for surgery with intermediate risk Continue telemetry monitoring Vascular surgery is following, DVT prophylaxis and pain management per vascular surgery #. Hyponatremia likely secondary to diuretics Sodium on admission 132 Discontinue Hydrochlorthiazide Monitor BMP #. Nausea and vomiting Continue ondansetron 4 mg IVP every 8 hours as needed #. Hypertension Continue Losartan 25 mg PO daily #. Hyperkalemia, resolved #. Reactive leukocytosis, resolved Chronic: #. Multivessel coronary artery disease on medical therapy #. Dyslipidemia #. Diabetes #. History of nicotine dependence/drug abuse #. Neuropathy #. Constipation Continue Aspirin 81 mg PO daily, carvedilol 25 mg p.o. every 12 hours, chlorthalidone 25 mg p.o. daily, clonidine 0.2 mg p.o. 3 times daily, Zetia 10 mg p.o. at bedtime, carbonate 3 mg p.o. 3 times daily, insulin glargine 14 units SQ at bedtime, insulin sliding scale, nifedipine 60 mg p.o. every 12 hours, MiraLAX 17 g p.o. daily as needed, Senokot p.o. every 12 hours F: None E: Replete as required GI prophylaxis: Pantoprazole 40 mg p.o. daily Objective - Vital Signs Vital signs: Vital Signs Temp 99.3 F 11/15/24 04:16 Pulse 69 11/14/24 14:27 Resp 18 11/15/24 04:16 BP 154/74 11/15/24 04:16 Pulse Ox 98 11/15/24 04:16 FiO2 Intake & Output 11/14/24 11/15/24 11/15/24 18:59 06:59 18:59 Intake Total 1754 20 Output Total 1300 600 Balance 454 -580 Weight 72.575 kg 74 kg Intake: IV 1754 20 Invasive Line 1 20 Output: Gastric Drainage 0 Urine 950 600 Stool 0 Urine/Stool Mix 0 Emesis 0 Oral Regurgitation 0 Estimated Blood Loss 350 Other 0 Other: Voiding Method Urinal # Voids 0 # Bowel Movements 0 - Labs CBC & Chem 7: 11/15/24 05:53 11/15/24 05:53 Labs: Abnormal Lab Results - Last 24 Hours (Table) 11/14/24 11/14/24 11/14/24 Range/Units 09:06 10:14 13:45 WBC (3.8-10.6) k/uL RBC (4.30-5.90) m/uL Hgb (13.0-17.5) gm/dL Hct (39.0-53.0) % MCHC (31.0-37.0) g/dL POC Glucose (mg/dL) 237 H 220 H 168 H (70-110) mg/dL 11/14/24 11/14/24 11/15/24 Range/Units 16:20 20:25 05:53 WBC 11.8 H (3.8-10.6) k/uL RBC 3.02 L (4.30-5.90) m/uL Hgb 8.2 L D (13.0-17.5) gm/dL Hct 26.5 L (39.0-53.0) % MCHC 30.9 L (31.0-37.0) g/dL POC Glucose (mg/dL) 205 H 302 H (70-110) mg/dL 11/15/24 Range/Units 06:13 WBC (3.8-10.6) k/uL RBC (4.30-5.90) m/uL Hgb (13.0-17.5) gm/dL Hct (39.0-53.0) % MCHC (31.0-37.0) g/dL POC Glucose (mg/dL) 167 H (70-110) mg/dL Microbiology - Last 24 Hours (Table) 11/11/24 11:08 Blood Culture - Preliminary Blood
[2024-11-15 16:42] LABS: Glucose,Whole Blood 343 mg/dL (70-110)
[2024-11-15 19:47] LABS: Glucose,Whole Blood 321 mg/dL (70-110)
[2024-11-16 05:53] LABS: Glucose,Whole Blood 272 mg/dL (70-110)
[2024-11-16 07:05] LABS: HCT 23.4 % (39.0-53.0); MCHC 30.2 g/dL (31.0-37.0); MCV 89.5 fL (80.0-100.0); RBC 2.61 m/uL (4.30-5.90); RDW 13.5 % (11.5-15.5); WBC 10.4 k/uL (3.8-10.6)
[2024-11-16 07:06] LABS: Hypochromasia Moderate; Mean Platelet Volume 7.2; Platelet Count 296 k/uL (150-450)
[2024-11-16 11:19] LABS: Glucose,Whole Blood 369 mg/dL (70-110)
--- NOTE | 2024-11-16 11:32 | P.DS ---
Providers Date of admission: 11/10/24 17:58 Expected date of discharge: 11/16/24 Attending physician: Ruben Rios Consults: 11/10/24 17:57 Consult Physician Routine Consulting Provider: Nishant Manrique Consult Reason/Comments: Cardiac clearance for femoral bypass Do you want consulting provider notified?: Yes Consult Physician Routine Consulting Provider: Stephen Dennison Consult Reason/Comments: Nonhealing ulcer, peripheral vascular disease Do you want consulting provider notified?: Already Contacted Primary care physician: Jade Schroeder DO Hospital Course: Discharge diagnosis: Left Femoal / Tibial Artery occlusion Nonhealing ulceration to dorsal and lateral aspect of the left foot S/p Left femoral to posterior tibial vein bypass graft utilizing cadaveric vein; Debridement wounds left foot with application of wound VAC; Left common femoral thromboendarterectomy 11/14/24 Previous right wuagz-gvj-asyk amputation Post-op Anemia Hyponatremia likely secondary to diuretics Nausea and vomiting Hypertension Hyperkalemia, resolved Reactive leukocytosis, resolved Multivessel coronary artery disease on medical therapy Dyslipidemia Diabetes History of nicotine dependence/drug abuse Neuropathy Constipation Hospital Course: Patient is a 59 year old male with past medical history of CAD, heart failure, diabetes mellitus, peripheral arterial disease with previous right datco-fuy-erwx amputation presenting to the hospital for preop clearance. The patient has been scheduled for left femoral popliteal bypass on 11/10/2024. Reportedly the patient is residing at a long-term care at [facility]. He had a recent debridement of the left foot with skin substitute and wound VAC. Anesthesia record cardiac arrest prior to procedure and the patient was not able to see a washing machine mechanic over the weekend in the outpatient setting. He has been admitted for cardiac clearance prior to starting surgery on Thursday. Currently he complains of pain in the left lower extremity at the wound site. Denies fever, chills, shortness of breath, cough, chest pain, palpitations, abdominal pain, nausea, vomiting, hematuria, dysuria, hematochezia, melena, headache, slurred speech, numbness, tingling, dizziness, lightheadedness, blurred vision, double vision. ED documentation reviewed. In the ED was treated with gabapentin, [place], Humalog, Lantus, Senokot, carvedilol, clonidine. Vitals on admission T 97.6 F, [place] 54 bpm, RR 16, BP 133/69, oxygen saturation 97% on room air. EKG independently interpreted as sinus bradycardia, rate 54 bpm, QTc 425 ms. Echocardiogram shows EF 50%, mildly increased left ventricular systolic volume, low normal LV systolic function, mildly thickened mitral valve apparatus. Lexiscan Cardiolite stress test performed in the office Thursday was negative by EKG criteria, abnormal nuclear scan showing fixed inferior wall defect with normal LV function without any ischemia. Labs on admission show WBC 12.9, hemoglobin 10.2, hematocrit 31.6, platelet count 403, APTT 19.2, sodium 132, potassium 5.4, BUN 53, creatinine 1.17, ALP 87, total bilirubin 0.8. 11/12/24: Patient seen and examined at bedside today. BP today 133/68, pulse rate 60 bpm. C. diff negative. 11/13. Patient seen and examined. States he feels much better. Denies any acute issues overnight. Scheduled for surgery on Thursday11/14/24: Patient is undergoing left femoral-popliteal bypass surgery today. BP today 153/67. Labs today show hemoglobin 10.5, sodium 133, BUN 31, creatinine 1.21 and glucose 343. Blood culture shows no growth after 48 hours. 11/15/24: Patient evaluated at bedside today. Vital signs are stable. Labs today show WBC 11.8, hemoglobin 8.2. 11/16/24: Patient examined today. Vital signs are stable. No acute events overnight. Labs today show hemoglobin 7. 1unit PRBC transfused. Patient seen at bedside today and is feeling good and excited about discharge. Patient will be discharged today. Patient is advised to be compliant with medications. Patient is advised to follow-up with PCP in 1-2 days and vascular surgery in 1 week. Vital signs are reviewed and stable General: nontoxic, no distress, appears at stated age, drowsy Derm: warm, dry, intact Head: atraumatic, normocephalic, symmetric Eyes: EOMI, anicteric sclera Mouth: no lip lesion, mucus membranes moist Cardiovascular: S1 S2 reg, no murmur Lungs: CTA bilateral, no rhonchi, no rales, no accessory muscle use Abdominal: soft, non-tender to palpation Extremities: incision with dressing with old blood on left calf, right AKA Neuro: Alert, Oriented, Gross neurological examination did not reveal any focal deficits. Psych: well appearing, appropriate affect A total of 30 minutes of time were spent preparing this complex discharge summary. Patient was discharged on 11/16/24 at 1200. Patient Condition at Discharge: Stable Plan - Discharge Summary Discharge Rx Participant: No New Discharge Prescriptions: New cloNIDine HCL [Catapres] 0.1 mg PO TID 14 Days #42 tab Losartan [Cozaar] 25 mg PO DAILY 14 Days #14 tab polyethylene glycoL 3350 [Miralax] 17 gm PO DAILY PRN 7 Days #7 packet PRN Reason: Constipation Amoxic-Pot Clav 875-125Mg [Augmentin 875-125] 1 tab PO Q12HR 10 Days #20 tab Sennosides [Senokot] 8.6 mg PO BID PRN 7 Days #14 tablet PRN Reason: Constipation Continue Sennosides-Docusate Sodium [Senokot-S] 1 tab PO Q12H Acetaminophen Tab [Tylenol] 650 mg PO Q4H PRN PRN Reason: Pain NIFEdipine XL [Procardia XL] 60 mg PO Q12HR Chlorthalidone [Hygroton] 25 mg PO DAILY Amino Acids/Protein Hydrolys [Pro-Stat Awc Liquid] 30 ml PO BID Insulin Glargine (Lantus) [Lantus Vial] 14 unit SQ HS Insulin Lispro [humaLOG Kwikpen] See Protocol SQ ACHS carvediloL [Coreg*] 25 mg PO Q12H Gabapentin [Neurontin] 300 mg PO TID Aspirin EC [Ecotrin Low Dose] 81 mg PO DAILY Ezetimibe [Zetia] 10 mg PO HS polyethylene glycoL 3350 [Miralax] 17 gm PO DAILY PRN PRN Reason: Constipation Magnesium Oxide [Mag-Ox] 400 mg PO DAILY HYDROcodone/APAP 7.5-325MG [[place] 7.5-325] 1 tab PO Q4H PRN 3 Days #18 tab PRN Reason: Pain Discontinued cloNIDine HCL [Catapres] 0.2 mg PO TID hydroCHLOROthiazide [Hydrodiuril] 25 mg PO DAILY Discharge Medication List Acetaminophen Tab [Tylenol] 650 mg PO Q4H PRN 05/25/24 [History] Aspirin EC [Ecotrin Low Dose] 81 mg PO DAILY 05/25/24 [History] Gabapentin [Neurontin] 300 mg PO TID 05/25/24 [History] Sennosides-Docusate Sodium [Senokot-S] 1 tab PO Q12H 05/25/24 [History] Amino Acids/Protein Hydrolys [Pro-Stat Awc Liquid] 30 ml PO BID 11/04/24 [History] Chlorthalidone [Hygroton] 25 mg PO DAILY 11/04/24 [History] Ezetimibe [Zetia] 10 mg PO HS 11/04/24 [History] Insulin Glargine (Lantus) [Lantus Vial] 14 unit SQ HS 11/04/24 [History] Magnesium Oxide [Mag-Ox] 400 mg PO DAILY 11/04/24 [History] NIFEdipine XL [Procardia XL] 60 mg PO Q12HR 11/04/24 [History] polyethylene glycoL 3350 [Miralax] 17 gm PO DAILY PRN 11/04/24 [History] Insulin Lispro [humaLOG Kwikpen] See Protocol SQ ACHS 11/08/24 [History] carvediloL [Coreg*] 25 mg PO Q12H 11/10/24 [History] Amoxic-Pot Clav 875-125Mg [Augmentin 875-125] 1 tab PO Q12HR 10 Days #20 tab 11/16/24 [Rx] HYDROcodone/APAP 7.5-325MG [[place] 7.5-325] 1 tab PO Q4H PRN 3 Days #18 tab 11/16/24 [Rx] Losartan [Cozaar] 25 mg PO DAILY 14 Days #14 tab 11/16/24 [Rx] Sennosides [Senokot] 8.6 mg PO BID PRN 7 Days #14 tablet 11/16/24 [Rx] cloNIDine HCL [Catapres] 0.1 mg PO TID 14 Days #42 tab 11/16/24 [Rx] polyethylene glycoL 3350 [Miralax] 17 gm PO DAILY PRN 7 Days #7 packet 11/16/24 [Rx] Follow up Appointment(s)/Referral(s): Jade Schroeder DO [Primary Care Provider] - 1-2 days Stephen Dennison DO [Doctor of Osteopathic Medicine] - 1 Week Donato Negron MD [STAFF PHYSICIAN] - 3 Weeks Activity/Diet/Wound Care/Special Instructions: Wound VAC to left foot wounds. Change Mondays, Wednesdays and Fridays. Activity as tolerated. No heavy lifting greater than 10 pounds. Patient may shower but no tub bathing or soaking until cleared by surgeon. Monitor surgical incisions for signs of infection including redness, drainage and fever with temp greater than 100.4 Start Augmentin 875 mg / 125 mg every 12 hours for 10 days Discharge Disposition: TRANSFER TO SNF/ECF
--- NOTE | 2024-11-16 11:49 | P.PN ---
Subjective Progress Note Date: 11/16/24 Principal diagnosis: Peripheral arterial disease status post left femoropopliteal bypass Patient is seen and examined today as a follow-up. He is postop day #2 for left femoropopliteal bypass graft and debridement of left foot wounds. Wound VAC is in place to foot with good suction. Patient is afebrile. He states he does have some increased pain down his left leg. No bleeding from surgical sites. He denies any shortness of breath or chest pain no abdominal pain nausea or vomiting. No leukocytosis. Hemoglobin did drop to 7.0. Objective - Vital Signs Vital signs: Vital Signs Temp 99.3 F 11/16/24 08:35 Pulse 61 11/16/24 08:35 Resp 17 11/16/24 08:35 BP 100/66 11/16/24 08:35 Pulse Ox 100 11/16/24 08:35 FiO2 Intake & Output 11/15/24 11/16/24 11/16/24 18:59 06:59 18:59 Intake Total 140 20 368 Output Total 450 100 Balance -310 20 268 Weight 72.5 kg Intake: IV 20 20 10 Invasive Line 1 20 20 10 Oral 120 358 Output: Urine 450 100 Other: Voiding Method Urinal Urinal Diaper Diaper # Voids 1 1 - Exam General appearance: The patient is alert, oriented, appears in no acute distress. HET: Head is normocephalic and atraumatic. Neck: Supple. Heart: Regular. Lungs: Equal expansion, normal respiratory effort. Abdomen: Soft, nontender, nondistended. Extremities: Right AKA. Left lower extremity warm to the touch with good capillary refill. Left groin incision well-approximated without any bleeding or drainage. Left calf tender to palpation, incision well-approximated with minimal serosanguineous drainage from proximal end of incision. Wound VAC in place to left foot wounds. Positive Doppler signal at popliteal, PT and bypass graft. Neurological: Alert and oriented. - Labs CBC & Chem 7: 11/16/24 06:04 11/15/24 05:53 Labs: Abnormal Lab Results - Last 24 Hours (Table) 11/15/24 11/15/24 11/15/24 Range/Units 11:41 16:40 19:45 RBC (4.30-5.90) m/uL Hgb (13.0-17.5) gm/dL Hct (39.0-53.0) % MCHC (31.0-37.0) g/dL POC Glucose (mg/dL) 166 H 343 H 321 H (70-110) mg/dL Crossmatch 11/16/24 11/16/24 11/16/24 Range/Units 05:51 06:04 08:27 RBC 2.61 L (4.30-5.90) m/uL Hgb 7.0 L (13.0-17.5) gm/dL Hct 23.4 L (39.0-53.0) % MCHC 30.2 L (31.0-37.0) g/dL POC Glucose (mg/dL) 272 H (70-110) mg/dL Crossmatch See Detail 11/16/24 Range/Units 11:17 RBC (4.30-5.90) m/uL Hgb (13.0-17.5) gm/dL Hct (39.0-53.0) % MCHC (31.0-37.0) g/dL POC Glucose (mg/dL) 369 H (70-110) mg/dL Crossmatch Microbiology - Last 24 Hours (Table) 11/14/24 12:30 Gram Stain - Preliminary Foot - Left Wound Culture - Preliminary Assessment and Plan Assessment: 1. Postop day #2 for left femoral to popliteal bypass graft with cadaver vein and debridement of left foot wounds with wound VAC application 2. Nonhealing ulceration to dorsal and lateral aspect of left foot 3. 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 Previous smoker 6. History of atrial fibrillation 7. History of coronary artery disease 8. Hypertension and hyperlipidemia 9. Previous right [id number] amputation 10. Acute on chronic anemia Plan: 1. Wound VAC to left foot wounds, change on Wednesdays and Fridays 2. Transfuse 1 unit of blood for hemoglobin 7.0 prior to discharge 3. Activity as tolerated 4. Patient is cleared from vascular surgery for discharge 5. Plan is for discharge back to [facility] 6. Patient will be discharged on Augmentin for 10 days as prescribed 7. Discharge instructions reviewed with patient and are written in discharge plan Thank you for this consultation, patient is cleared from vascular surgery for discharge. He is instructed to follow-up in [address] Dennison The impression and plan of care has been dictated as directed. Dr. Bishnu Cortez performed a history and examination of this patient, discussed the same with the dictator. I agree with the dictator's note ,documented as a scribe. Any additional findings or plans will be noted.
[2024-11-16 13:05] VITALS: RESP 16
--- NOTE | 2024-11-16 15:13 | CDI ---
Documentation Clarification Form Date: 11/16/2024 02:56:34 PM From: Helga Pérez RN CCDS Phone: [phone] Admit Date: 11/10/2024 05:58:00 PM Patient Name: Benny Ladd Visit Number: [id number] Discharge Date: ATTENTION: The Clinical Documentation Specialists (CDI) and [facility] Coding Staff appreciate your assistance in clarifying documentation. Please respond to the clarification below the line at the bottom and electronically sign. The CDI & [facility] Coding staff will review the response and follow-up if needed. Please note: Queries are made part of the Legal Health Record. If you have any questions, please contact the author of this message via ITS. Doctor: Stephen Resendiz debridement is documented on XXX. Unfortunately, some required elements have not been documented. Additional clarification regarding the procedure is requested. History/Risk Factors: 59 year old male presents for elective Left femoral to posterior tibial vein bypass graft utilizing cadaveric vein. Debridement wounds left foot. Medical History: Cardiac arrest, PAD, Atrial Fibrillation, Asthma, CAD, CHF, DM and previous right above the knee amputation. Clinical Indicators: Attention was turned to the dorsum and lateral aspect of the foot. Utilizing surgical scalpel the wounds were debrided down to the tendinous level on the dorsum and into the fat pad laterally.It was then a scrub brush was utilized to help further debride this tissue and a tissue culture was obtained. Improved bleeding characteristics were identified. Non healing ulcer dorsum left foot measuring 6 x 7 cm x 2 to 3 mm in depth as well as nonhealing wound lateral aspect of the left foot measuring 5-1/2 x 2 mm in length and width and approximately 2 mm in depth. Treatment: Debridement wound left foot with application of wound VAC Please clarify the procedure performed: [ ] Excisional debridement (the removal of necrotic, devitalized tissue or slough by means of cutting away of tissue) Nature of the tissue removed __nonviable skin Appearance of the wound __improved [ ] Non-excisional debridement (the removal of necrotic, devitalized tissue or slough by means of flushing, brushing, or washing. (Irrigation) Nature of the tissue removed __nonviable skin Appearance of the wound _improved Five elements required for accurate and compliant documentation of a debridement: -Technique used (e.g., excisional, excised, cutting, brushing, jet lavage etc.) -Instrument(s) used (e.g., scalpel, curette, etc.) -Nature of the tissue removed (e.g., necrotic, devitalized tissues, non-viable tissue, etc.) -Appearance and size of the wound (e.g., down to fresh bleeding tissue, 7cm x 10cm, etc.) -Depth of the debridement* (e.g., skin, subcutaneous tissue, fascia, muscle, bone, etc.) (Template Last Revised: May 2024) MTDD
[2024-11-16 16:50] LABS: Glucose,Whole Blood 210 mg/dL (70-110)
[2024-11-16] MEDS: cloNIDine HCL 0.1 MG TAB PO SCH (17:31)
[2024-11-16 17:39] VITALS: BP 128/74; PULSE 67; TEMP 98.3
--- NOTE | 2024-11-23 08:01 | CDI ---
Documentation Clarification Form Date: 11/16/2024 02:56:00 PM From: Helga Pérez RN CCDS Phone: [phone] Admit Date: 11/10/2024 05:58:00 PM Patient Name: Benny Ladd Visit Number: [id number] Discharge Date: 11/16/2024 06:50:00 PM ATTENTION: The Clinical Documentation Specialists (CDI) and [facility] Coding Staff appreciate your assistance in clarifying documentation. Please respond to the clarification below the line at the bottom and electronically sign. The CDI & [facility] Coding staff will review the response and follow-up if needed. Please note: Queries are made part of the Legal Health Record. If you have any questions, please contact the author of this message via ITS. Doctor: Stephen Resendiz debridement is documented on 11/14, procedure note. Unfortunately, some required elements have not been documented. Additional clarification regarding the procedure is requested. History/Risk Factors: 59 year old male presents for elective Left femoral to posterior tibial vein bypass graft utilizing cadaveric vein. Debridement wounds left foot. Medical History: Cardiac arrest, PAD, Atrial Fibrillation, Asthma, CAD, CHF, DM and previous right above the knee amputation. 11/11, Clinical Indicators: Attention was turned to the dorsum and lateral aspect of the foot. Utilizing surgical scalpel the wounds were debrided down to the tendinous level on the dorsum and into the fat pad laterally.It was then a scrub brush was utilized to help further debride this tissue and a tissue culture was obtained. Improved bleeding characteristics were identified. Non healing ulcer dorsum left foot measuring 6 x 7 cm x 2 to 3 mm in depth as well as nonhealing wound lateral aspect of the left foot measuring 5-1/2 x 2 mm in length and width and approximately 2 mm in depth. Treatment: Debridement wound left foot with application of wound VAC Please clarify the procedure performed: [ ] Excisional debridement (the removal of necrotic, devitalized tissue or slough by means of cutting away of tissue) Nature of the tissue removed ___necrotic____ Appearance of the wound ___improved [ ] Non-excisional debridement (the removal of necrotic, devitalized tissue or slough by means of flushing, brushing, or washing. (Irrigation) Nature of the tissue removed __necrotic Appearance of the wound _improved Five elements required for accurate and compliant documentation of a debridement: -Technique used (e.g., excisional, excised, cutting, brushing, jet lavage etc.) -Instrument(s) used (e.g., scalpel, curette, etc.) -Nature of the tissue removed (e.g., necrotic, devitalized tissues, non-viable tissue, etc.) -Appearance and size of the wound (e.g., down to fresh bleeding tissue, 7cm x 10cm, etc.) -Depth of the debridement* (e.g., skin, subcutaneous tissue, fascia, muscle, bone, etc.) (Template Last Revised: May 2024) MTDD
--- NOTE | 2024-11-24 11:21 | CDI ---
Documentation Clarification Form Date: 11/16/2024 02:56:00 PM From: Helga Pérez Phone: [phone] Admit Date: 11/10/2024 05:58:00 PM Patient Name: Benny Ladd Visit Number: [id number] Discharge Date: 11/16/2024 06:50:00 PM ATTENTION: The Clinical Documentation Specialists (CDI) and [facility] Coding Staff appreciate your assistance in clarifying documentation. Please respond to the clarification below the line at the bottom and electronically sign. The CDI & [facility] Coding staff will review the response and follow-up if needed. Please note: Queries are made part of the Legal Health Record. If you have any questions, please contact the author of this message via ITS. Doctor/Provider: Stephen Resendiz debridement is documented on 11/14, procedure note. Unfortunately, some required elements have not been documented. Additional clarification regarding the procedure is requested. History/Risk Factors: 59 year old male presents for elective Left femoral to posterior tibial vein bypass graft utilizing cadaveric vein. Debridement wounds left foot. Medical History: Cardiac arrest, PAD, Atrial Fibrillation, Asthma, CAD, CHF, DM and previous right above the knee amputation. 11/11, Clinical Indicators: Attention was turned to the dorsum and lateral aspect of the foot. Utilizing surgical scalpel the wounds were debrided down to the tendinous level on the dorsum and into the fat pad laterally.It was then a scrub brush was utilized to help further debride this tissue and a tissue culture was obtained. Improved bleeding characteristics were identified. Non healing ulcer dorsum left foot measuring 6 x 7 cm x 2 to 3 mm in depth as well as nonhealing wound lateral aspect of the left foot measuring 5-1/2 x 2 mm in length and width and approximately 2 mm in depth. Treatment: Debridement wound left foot with application of wound VAC Please clarify the procedure performed: [ x] Excisional debridement [ ] Non-excisional debridement [ ] Excisional and non- excisional debridement Five elements required for accurate and compliant documentation of a debridement: -Technique used (e.g., excisional, excised, cutting, brushing, jet lavage etc.) -Instrument(s) used (e.g., scalpel, curette, etc.) -Nature of the tissue removed (e.g., necrotic, devitalized tissues, non-viable tissue, etc.) -Appearance and size of the wound (e.g., down to fresh bleeding tissue, 7cm x 10cm, etc.) -Depth of the debridement* (e.g., skin, subcutaneous tissue, fascia, muscle, bone, etc.) (Template Last Revised: May 2024) MTDD
== END 2024-11-16 18:50 | DRG 253 ==
LOC: EC 17:18 → 4SSUR 17:58 → 3SCARD 11-14 07:03 → 3NCARDOBS 11-15 23:49 → 3SCARD 11-15 23:55
PROVIDERS: ADMIT Hospitalist; ATTEND Hospitalist
PROC: 04CL0ZZ Extirpation of Matter from Left Femoral Artery, Open Approach (ICD-10-PCS; 2024-11-14)
PROC: 0LBW0ZZ Excision of Left Foot Tendon, Open Approach (ICD-10-PCS; 2024-11-14)
PROC: 061 Lower Veins, Bypass (ICD-10-PCS; principal; 2024-11-14 07:30)
PROC: 30233N1 Transfusion of Nonautologous Red Blood Cells into Peripheral Vein, Percutaneous Approach (ICD-10-PCS; 2024-11-16)
DX: T82.868A Thrombosis due to vascular prosthetic devices, implants and grafts, initial encounter (principal); D62 Acute posthemorrhagic anemia; E87.1 Hypo-osmolality and hyponatremia; I13.0 Hypertensive heart and chronic kidney disease with heart failure and stage 1 through stage 4 chronic kidney disease, or unspecified chronic kidney disease; I70.245 Atherosclerosis of native arteries of left leg with ulceration of other part of foot; I50.9 Heart failure, unspecified; E11.40 Type 2 diabetes mellitus with diabetic neuropathy, unspecified; D72.828 Other elevated white blood cell count; Z89.611 Acquired absence of right leg above knee; E11.51 Type 2 diabetes mellitus with diabetic peripheral angiopathy without gangrene; E11.621 Type 2 diabetes mellitus with foot ulcer; L98.492 Non-pressure chronic ulcer of skin of other sites with fat layer exposed; L97.522 Non-pressure chronic ulcer of other part of left foot with fat layer exposed; Z79.4 Long term (current) use of insulin; Z89.511 Acquired absence of right leg below knee; Z86.74 Personal history of sudden cardiac arrest; T50.2X5A Adverse effect of carbonic-anhydrase inhibitors, benzothiadiazides and other diuretics, initial encounter; I25.10 Atherosclerotic heart disease of native coronary artery without angina pectoris; E78.00 Pure hypercholesterolemia, unspecified; E87.5 Hyperkalemia; K59.00 Constipation, unspecified; Y71.2 Prosthetic and other implants, materials and accessory cardiovascular devices associated with adverse incidents; Z91.199 Patient's noncompliance with other medical treatment and regimen due to unspecified reason; Z87.891 Personal history of nicotine dependence; Z86.79 Personal history of other diseases of the circulatory system; I25.2 Old myocardial infarction; Z86.14 Personal history of Methicillin resistant Staphylococcus aureus infection; Z79.82 Long term (current) use of aspirin; Z79.899 Other long term (current) drug therapy; Z86.718 Personal history of other venous thrombosis and embolism
CPT/HCPCS: 36415; 80048; 80053; 85025; 85027; 85610; 85730; 86850; 86900; 86901; 86920; 87040; 87070; 87077; 87186; 87205; 87324; 93005; 93306; 99285

== ENCOUNTER 2024-12-08 11:48 | Inpatient (IN) | payer MEDICARE, OTHER ==
[2024-12-08] MEDS ORDERED: VANCOMYCIN IV PER PHARMACY 1 EACH MISC MISCELLANE PRN (12:02)
--- NOTE | 2024-12-08 12:10 | ED ---
General Adult HPI - General Chief complaint: Skin/Abscess/Foreign Body Stated complaint: L foot sore Time Seen by Provider: 12/08/24 11:51 Source: patient, RN notes reviewed Mode of arrival: ambulatory Limitations: no limitations - History of Present Illness Initial comments: 59-year-old male presents emergency department from wound center for evaluation of left foot infection. Patient states that he is followed by Dr. Garnett was sent over here for admission and surgical intervention. Patient states he has been dealing with this wound for several months he is a known diabetic he has had a prior right above-knee amputation. Patient states - Related Data Home Medications Medication Instructions Recorded Confirmed Acetaminophen Tab [Tylenol] 650 mg PO Q4H PRN 05/25/24 11/10/24 Aspirin EC [Ecotrin Low Dose] 81 mg PO DAILY 05/25/24 11/10/24 Gabapentin [Neurontin] 300 mg PO TID 05/25/24 11/10/24 Sennosides-Docusate Sodium 1 tab PO Q12H 05/25/24 11/10/24 [Senokot-S] Amino Acids/Protein Hydrolys 30 ml PO BID 11/04/24 11/10/24 [Pro-Stat Awc Liquid] Chlorthalidone [Hygroton] 25 mg PO DAILY 11/04/24 11/10/24 Ezetimibe [Zetia] 10 mg PO HS 11/04/24 11/10/24 Insulin Glargine (Lantus) [Lantus 14 unit SQ HS 11/04/24 11/10/24 Vial] Magnesium Oxide [Mag-Ox] 400 mg PO DAILY 11/04/24 11/10/24 NIFEdipine XL [Procardia XL] 60 mg PO Q12HR 11/04/24 11/10/24 polyethylene glycoL 3350 [Miralax] 17 gm PO DAILY PRN 11/04/24 11/10/24 Insulin Lispro [humaLOG Kwikpen] See Protocol SQ ACHS 11/08/24 11/10/24 carvediloL [Coreg*] 25 mg PO Q12H 11/10/24 11/10/24 Previous Rx's Medication Instructions Recorded Amoxic-Pot Clav 875-125Mg 1 tab PO Q12HR 10 Days #20 tab 11/16/24 [Augmentin 875-125] HYDROcodone/APAP 7.5-325MG [Benjamin 1 tab PO Q4H PRN 3 Days #18 tab 11/16/24 7.5-325] Losartan [Cozaar] 25 mg PO DAILY 14 Days #14 tab 11/16/24 Sennosides [Senokot] 8.6 mg PO BID PRN 7 Days #14 tablet 11/16/24 cloNIDine HCL [Catapres] 0.1 mg PO TID 14 Days #42 tab 11/16/24 polyethylene glycoL 3350 [Miralax] 17 gm PO DAILY PRN 7 Days #7 packet 11/16/24 Allergies Allergy/AdvReac Type Severity Reaction Status Date / Time atorvastatin [From Lipitor] Allergy Swelling Verified 12/08/24 14:10 ibuprofen Allergy Swelling Verified 12/08/24 14:10 pregabalin [From Lyrica] Allergy Swelling Verified 12/08/24 14:10 Review of Systems ROS Statement: Those systems with pertinent positive or pertinent negative responses have been documented in the HPI. ROS Other: All systems not noted in ROS Statement are negative. Past Medical History Past Medical History: Atrial Fibrillation, Asthma, Coronary Artery Disease (CAD), Heart Failure, Diabetes Mellitus, Deep Vein Thrombosis (DVT), Eye Disorder, Hyperlipidemia, Hypertension, Myocardial Infarction ([place]), Pneumonia, Renal Disease, Vascular Disorder Additional Past Medical History / Comment(s): wound left foot-wound care [facility],NWB lt foot-able to stand/pivot transfers,obtaining therapy at [facility] and learning to walk with prosthesis on rt AKA but unable to wt bear currently on left foot w./ wound,hx uvitis glaucoma rt eye, PVD, dvt to lower left leg,anemia,acute kidney failure in past,paroxysmal afib Last Myocardial Infarction Date:: unknown History of Any Multi-Drug Resistant Organisms: MRSA Date of last positivie culture/infection: 11/14/24 MDRO Source:: Left leg/foot Past Surgical History: Hernia Repair, Orthopedic Surgery Additional Past Surgical History / Comment(s): aortgram w/ runnoff, eye surg, bilateral knee SX, left vein stripping in 02/2020 x2, vein graft and toe amputation rt bka 2023,rt AKA ,amputation 1rst & 2nd digits left foot Past Anesthesia/Blood Transfusion Reactions: No Reported Reaction Additional Past Anesthesia/Blood Transfusion Reaction / Comment(s): no problems with prior blood transfusion Past Psychological History: No Psychological Hx Reported Smoking Status: Former smoker Past Alcohol Use History: Rare Past Drug Use History: None Reported - Past Family History Mother History Unknown: Yes Brother(s) Family Medical History: COPD Additional Family Medical History / Comment(s): passed from COPD Father Family Medical History: Myocardial Infarction ([place]) Additional Family Medical History / Comment(s): passed from [place] General Exam Limitations: no limitations General appearance: alert, in no apparent distress Head exam: Present: atraumatic, normocephalic, normal inspection Eye exam: Present: normal appearance, PERRL, EOMI. Absent: scleral icterus, conjunctival injection, periorbital swelling Respiratory exam: Present: normal lung sounds bilaterally. Absent: respiratory distress, wheezes, rales, rhonchi, stridor Cardiovascular Exam: Present: regular rate, normal rhythm, normal heart sounds. Absent: systolic murmur, diastolic murmur, rubs, gallop, clicks Extremities exam: Present: other (There is extensive ulceration, foul odor there is extending warmth and purulent drainage noted) Neurological exam: Present: alert Course Vital Signs 12/08/24 12/08/24 11:51 13:49 Temperature 98.6 F Pulse Rate 66 79 Respiratory 18 16 Rate Blood Pressure 148/77 122/74 O2 Sat by Pulse 98 96 Oximetry Medical Decision Making - Medical Decision Making Was pt. sent in by a medical professional or institution (, PA, SENIOR UI DESIGNER, urgent care, hospital, or penitentiary...) When possible be specific @ -Wound center Did you speak to anyone other than the patient for history (EMS, parent, family, police, friend...)? What history was obtained from this source @ -No Did you review nursing and triage notes (agree or disagree)? Why? @ -I reviewed and agree with nursing and triage notes Were old charts reviewed (outside hosp., previous admission, EMS record, old EKG, old radiological studies, urgent care reports/EKG's, penitentiary records)? Report findings @ -No old charts were reviewed Differential Diagnosis (chest pain, altered mental status, abdominal pain women, abdominal pain men, vaginal bleeding, weakness, fever, dyspnea, syncope, headache, dizziness, GI bleed, back pain, seizure, CVA, palpatations, mental health, musculoskeletal)? @ -Cellulitis ulceration osteomyelitis diabetic foot, for vascular disease EKG interpreted by me (3pts min.). @ -[None X-rays interpreted by me (1pt min.). @ -X-ray left foot showing old changes possible early osteo CT interpreted by me (1pt min.). @ -None done U/S interpreted by me (1pt. min.). @ -None done What testing was considered but not performed or refused? (CT, X-rays, U/S, labs)? Why? @ -None What meds were considered but not given or refused? Why? @ -None Did you discuss the management of the patient with other professionals (professionals i.e. , PA, SENIOR UI DESIGNER, lab, RT, psych nurse, social service coordinator, medical assistant per diem, teacher, marketing officer, case finishing machine adjuster)? Give summary @ -Dr. Rios for admission Was smoking cessation discussed for >3mins.? @ -No Was critical care preformed (if so, how long)? @ -No Were there social determinants of health that impacted care today? How? (Homelessness, low income, unemployed, alcoholism, drug addiction, transportation, low edu. Level, literacy, decrease access to med. care, long term, rehab)? @ -No Was there de-escalation of care discussed even if they declined (Discuss DNR or withdrawal of care, Hospice)? DNR status @ -No What co-morbidities impacted this encounter? (DM, HTN, Smoking, COPD, CAD, Cancer, CVA, ARF, Chemo, Hep., AIDS, mental health diagnosis, sleep apnea, morbi d obesity)? @ -Diabetes peripheral vascular disease Was patient admitted / discharged? Hospital course, mention meds given and route, prescriptions, significant lab abnormalities, going to OR and other pertinent info. @ -Admitted patient's found to have significant ulceration, cellulitis diabetic foot ulceration with known peripheral vascular disease patient started on Zosyn will have consult to ID, vascular surgery. Undiagnosed new problem with uncertain prognosis? @ -No Drug Therapy requiring intensive monitoring for toxicity (Heparin, Nitro, Insulin, Cardizem)? @ -No Were any procedures done? @ -No Diagnosis/symptom? @Left foot cellulitis diabetic ulceration probable early osteomyelitis Acute, or Chronic, or Acute on Chronic? @ -Acute Uncomplicated (without systemic symptoms) or Complicated (systemic symptoms)? @ -Complicated Side effects of treatment? @ -No Exacerbation, Progression, or Severe Exacerbation? @ -No Poses a threat to life or bodily function? How? (Chest pain, [place], [place], pneumonia, PE, COPD, DKA, ARF, appy, cholecystitis, CVA, Diverticulitis, Homicidal, Suicidal, threat to staff... and all critical care pts) @ -Yes foot ulceration may lead to sepsis and endorgan failure - Lab Data Result diagrams: 12/08/24 12:17 12/08/24 12:17 Lab Results 12/08/24 12/08/24 12/08/24 Range/Units 12:17 12:17 12:17 WBC 15.5 H (3.8-10.6) k/uL RBC 3.12 L (4.30-5.90) m/uL Hgb 8.3 L (13.0-17.5) gm/dL Hct 25.9 L (39.0-53.0) % MCV 83.0 D (80.0-100.0) fL MCH 26.7 (25.0-35.0) pg MCHC 32.2 (31.0-37.0) g/dL RDW 13.6 (11.5-15.5) % Plt Count 585 H (150-450) k/uL MPV 6.9 Neutrophils % 84 % Lymphocytes % 8 % Monocytes % 6 % Eosinophils % 1 % Basophils % 0 % Neutrophils # 13.0 H (1.3-7.7) k/uL Lymphocytes # 1.3 (1.0-4.8) k/uL Monocytes # 0.9 (0-1.0) k/uL Eosinophils # 0.1 (0-0.7) k/uL Basophils # 0.0 (0-0.2) k/uL Hypochromasia Slight Sodium 130 L (137-145) mmol/L Potassium 4.6 (3.5-5.1) mmol/L Chloride 93 L (98-107) mmol/L Carbon Dioxide 24 (22-30) mmol/L Anion Gap 13 mmol/L BUN 25 H (9-20) mg/dL Creatinine 1.14 (0.66-1.25) mg/dL Est GFR (CKD-EPI)AfAm 80 (>60 ml/min/1.73 sqM) Est GFR (CKD-EPI)NonAf 69 (>60 ml/min/1.73 sqM) Glucose 212 H (74-99) mg/dL Plasma Lactic Acid Todd 1.3 (0.7-2.0) mmol/L Calcium 8.8 (8.4-10.2) mg/dL Total Bilirubin 0.4 (0.2-1.3) mg/dL AST 20 (17-59) U/L ALT 14 (4-49) U/L Alkaline Phosphatase 112 (38-126) U/L C-Reactive Protein 23.4 H (<1.0) mg/dL Total Protein 7.5 (6.3-8.2) g/dL Albumin 3.2 L (3.5-5.0) g/dL Disposition Clinical Impression: Cellulitis of left foot, PVD (peripheral vascular disease), Diabetic ulcer of left foot Disposition: ADMITTED IP TO THIS HOSP Condition: Fair Referrals: Jade Schroeder DO [Primary Care Provider] - 1-2 days Time of Disposition: 14:29
[2024-12-08] MEDS ORDERED: DEXTROSE 50% SYRINGE 50 ML IVP PRN ×4 (12:31→20:26)
[2024-12-08 12:46] LABS: ALT 14 U/L (4-49); AST 20 U/L (17-59); African American GFR (CKD) 80 (>60 ml/min/1.73 sqM); Albumin 3.2 g/dL (3.5-5.0); Alkaline Phosphatase 112 U/L (38-126); Anion Gap 13 mmol/L; Blood Urea Nitrogen 25 mg/dL (9-20); Calcium 8.8 mg/dL (8.4-10.2); Carbon Dioxide 24 mmol/L (22-30); Chloride 93 mmol/L (98-107); Glucose 212 mg/dL (74-99); Non-African American GFR(CKD) 69 (>60 ml/min/1.73 sqM); Potassium 4.6 mmol/L (3.5-5.1); Sodium 130 mmol/L (137-145); Total Bilirubin 0.4 mg/dL (0.2-1.3); Total Protein 7.5 g/dL (6.3-8.2)
[2024-12-08 12:53] LABS: Basophils % (A) 0 %; Eosinophils # (A) 0.1 k/uL (0-0.7); Eosinophils % (A) 1 %; HCT 25.9 % (39.0-53.0); HGB 8.3 gm/dL (13.0-17.5); Hypochromasia Slight; Lymphocytes # (A) 1.3 k/uL (1.0-4.8); Lymphocytes % (A) 8 %; MCH 26.7 pg (25.0-35.0); MCHC 32.2 g/dL (31.0-37.0); Mean Platelet Volume 6.9; Monocytes # (A) 0.9 k/uL (0-1.0); Monocytes % (A) 6 %; Neutrophils % (A) 84 %; Platelet Count 585 k/uL (150-450); RBC 3.12 m/uL (4.30-5.90); RDW 13.6 % (11.5-15.5); WBC 15.5 k/uL (3.8-10.6)
[2024-12-08 12:58] LABS: C Reactive Protein 23.4 mg/dL (<1.0)
--- NOTE | 2024-12-08 13:19 | XR ---
EXAMINATION TYPE: XR foot complete LT DATE OF EXAM: 12/08/2024 1:03 PM COMPARISON: 06/26/2020 CLINICAL INDICATION: Male, 59 years old with history of infection, pain TECHNIQUE: XR foot complete LT examined in the AP, oblique, and lateral projections. FINDINGS: Postsurgical changes of the first and second digits. Mild subtle cortical lucency along the dilatation site of the first digit metatarsal. No evidence of fracture scattered multifocal degenera tion changes of the foot. IMPRESSION: 1. May be mild lucency along the amputation site of the first digit metatarsal. Correlate for signs and symptoms of osteomyelitis 2. No evidence of acute fracture. 3. Multifocal degeneration changes throughout the joints of the foot. [facility], , 12/08/2024 1:17 PM
--- NOTE | 2024-12-08 13:49 | HP ---
HISTORY AND PHYSICAL CHIEF COMPLAINT: Left foot infection. HISTORY OF PRESENT ILLNESS: This is a 59-year-old gentleman with a past medical history of multiple medical problems including atrial fibrillation, CAD, DVT, who is a resident of [facility], is complaining of severe left foot infection. The patient is seen by Vascular Surgery and recommended admission and surgical intervention at this time. There is no history of any fever, rigors, or chills at this time. PAST MEDICAL HISTORY: Reviewed include atrial fibrillation, CAD, CHF. Rest of the history and rest of the chart are also reviewed. HOME MEDICATIONS: Reviewed include MiraLAX. Dose and rest of medications reviewed, but not confirmed yet. ALLERGIES: Reviewed include Lipitor. FAMILY HISTORY: History of COPD. SOCIAL HISTORY: Previous history of smoking. REVIEW OF SYSTEMS: Fourteen-point review of systems is negative except as mentioned earlier. PHYSICAL EXAMINATION: VITAL SIGNS: Pulse 66, blood pressure 140/87, respirations 18. HEENT: Conjunctivae normal. NECK: No JVD. CARDIOVASCULAR: S1, S2. RESPIRATIONS: Breath sounds diminished at the bases. A few scattered rhonchi. ABDOMEN: Soft, obese, nontender. LEGS: Status post right above-knee amputation. Left foot severe infection and discoloration and as well as yellowish pus and ulceration also present. LABORATORY DATA: Pending at this time. ASSESSMENT: 1. Left diabetic foot infection with failure of outpatient treatment, severe with possible sepsis. 2. History of atrial fibrillation. 3. Coronary artery disease. 4. History of congestive heart failure. 5. Diabetes mellitus type 2. 6. History of deep venous thrombosis. 7. Hypertension. 8. Hyperlipidemia. 9. Multiple complex medical issues. RECOMMENDATIONS AND DISCUSSION: This is a 59-year-old gentleman, who presented with multiple complex medical issues, we will monitor the patient closely. I would recommend initiate broad-spectrum IV antibiotics. Infectious Disease evaluation, Vascular Surgery evaluation. The previous culture showed multiple organisms including MRSA, Pseudomonas, and Klebsiella and Enterobacter and as well as Proteus and strep agalactiae. Repeat the wound culture. Symptomatic treatment provided. Otherwise, closely follow. Guarded prognosis. Further recommendations to follow. Home medications will be continued once they are confirmed. See orders for further details. MMODL / IJN: [id number] /
[2024-12-08] MEDS: PIPERACILLIN-TAZOBACTAM 3.375 GM in SODIUM CHLORIDE 0.9% 100 ML IVPB SCH (13:50)
[2024-12-08 14:45] LABS: Glucose,Whole Blood 207 mg/dL (70-110)
--- NOTE | 2024-12-08 14:46 | P.GSCN ---
History of Present Illness Consult date: 12/08/24 Reason for Consult: Left infected foot wound Requesting physician: Quoc Dudley History of present illness: 59-year-old -Gabonese male with history of peripheral arterial disease with previous right xnyqc-ywf-zagn amputation, longstanding history of diabetes mellitus, tobacco use, atrial fibrillation, coronary artery disease, chronic renal disease, history of DVT, chronic anemia, hyperlipidemia, and hypertension. He underwent left femoral to posterior tibial vein bypass graft with left common femoral thromboendarterectomy on 11/14/2024 as well as debridement of foot wounds with wound VAC. Patient had gone to his follow-up vascular surgical appointment today and was noted to have malodorous wound with concerns for infection. He was sent to the emergency department to be admitted with consultation for debridement. Apparently patient has been taking his wound VAC off and not wearing it as ordered. He states that he is having pain in his left foot. He has leukocytosis on admission with a WBC of 15.5 hemoglobin 8.3 platelet count 585,000 sodium 130 potassium 4.6 BUN 25 creatinine 1.1. He woody es any shortness of breath, chest pain, abdominal pain, nausea or vomiting. Review of Systems A 14 point review systems was completed all pertinent positives and negatives as stated in the HPI. Past Medical History Past Medical History: Atrial Fibrillation, Asthma, Coronary Artery Disease (CAD), Heart Failure, Diabetes Mellitus, Deep Vein Thrombosis (DVT), Eye Disorder, Hyperlipidemia, Hypertension, Myocardial Infarction ([place]), Pneumonia, Renal Disease, Vascular Disorder Additional Past Medical History / Comment(s): wound left foot-wound care [facility] lt foot-able to stand/pivot transfers,obtaining therapy at [facility] and learning to walk with prosthesis on rt AKA but unable to wt zuleika r currently on left foot w./ wound,hx uvitis glaucoma rt eye, PVD, dvt to lower left leg,anemia,acute kidney failure in past,paroxysmal afib Last Myocardial Infarction Date:: unknown History of Any Multi-Drug Resistant Organisms: MRSA Year Discovered:: 11/14/24 MDRO Source:: Left leg/foot Past Surgical History: Hernia Repair, Orthopedic Surgery Additional Past Surgical History / Comment(s): aortgram w/ runnoff, eye surg, bilateral knee SX, left vein stripping in 02/2020 x2, vein graft and toe amputation rt bka 2023,rt AKA ,amputation 1rst & 2nd digits left foot Past Anesthesia/Blood Transfusion Reactions: No Reported Reaction Additional Past Anesthesia/Blood Transfusion Reaction / Comm: no problems with prior blood transfusion Past Psychological History: No Psychological Hx Reported Smoking Status: Former smoker Past Alcohol Use History: Rare Past Drug Use History: None Reported - Past Family History Mother History Unknown: Yes Brother(s) Family Medical History: COPD Additional Family Medical History / Comment(s): passed from COPD Father Family Medical History: Myocardial Infarction ([place]) Additional Family Medical History / Comment(s): passed from [place] Medications and Allergies Home Medications Medication Instructions Recorded Confirmed Type Acetaminophen Tab [Tylenol] 650 mg PO Q4H PRN 05/25/24 11/10/24 History Aspirin EC [Ecotrin Low Dose] 81 mg PO DAILY 05/25/24 11/10/24 History Gabapentin [Neurontin] 300 mg PO TID 05/25/24 11/10/24 History Sennosides-Docusate Sodium 1 tab PO Q12H 05/25/24 11/10/24 History [Senokot-S] Amino Acids/Protein Hydrolys 30 ml PO BID 11/04/24 11/10/24 History [Pro-Stat Awc Liquid] Chlorthalidone [Hygroton] 25 mg PO DAILY 11/04/24 11/10/24 History Ezetimibe [Zetia] 10 mg PO HS 11/04/24 11/10/24 History Insulin Glargine (Lantus) [Lantus 14 unit SQ HS 11/04/24 11/10/24 History Vial] Magnesium Oxide [Mag-Ox] 400 mg PO DAILY 11/04/24 11/10/24 History NIFEdipine XL [Procardia XL] 60 mg PO Q12HR 11/04/24 11/10/24 History polyethylene glycoL 3350 [Miralax] 17 gm PO DAILY PRN 11/04/24 11/10/24 History Insulin Lispro [humaLOG Kwikpen] See Protocol SQ ACHS 11/08/24 11/10/24 History carvediloL [Coreg*] 25 mg PO Q12H 11/10/24 11/10/24 History Amoxic-Pot Clav 875-125Mg 1 tab PO Q12HR 10 Days #20 tab 11/16/24 Rx [Augmentin 875-125] HYDROcodone/APAP 7.5-325MG [[place] 1 tab PO Q4H PRN 3 Days #18 tab 11/16/24 Rx 7.5-325] Losartan [Cozaar] 25 mg PO DAILY 14 Days #14 tab 11/16/24 Rx Sennosides [Senokot] 8.6 mg PO BID PRN 7 Days #14 tablet 11/16/24 Rx cloNIDine HCL [Catapres] 0.1 mg PO TID 14 Days #42 tab 11/16/24 Rx polyethylene glycoL 3350 [Miralax] 17 gm PO DAILY PRN 7 Days #7 packet 11/16/24 Rx Allergies Allergy/AdvReac Type Severity Reaction Status Date / Time atorvastatin [From Lipitor] Allergy Swelling Verified 12/08/24 14:10 ibuprofen Allergy Swelling Verified 12/08/24 14:10 pregabalin [From Lyrica] Allergy Swelling Verified 12/08/24 14:10 Surgical - Exam Vital Signs Temp Pulse Resp BP Pulse Ox 98.6 F 66 18 148/77 98 12/08/24 11:51 12/08/24 11:51 12/08/24 11:51 12/08/24 11:51 12/08/24 11:51 General appearance: The patient is alert, oriented, appears in no acute distress. HET: Head is normocephalic and atraumatic. Pupils are equal and reactive. Neck: Supple. Heart: Regular. Lungs: Equal expansion, normal respiratory effort. Abdomen: Soft, nontender, nondistended. Extremities: Right exnnd-vkk-argz amputation healed. Left foot with wound to dorsal aspect of foot with slough tissue, tendon exposure. Wound to lateral aspect of foot with nonviable tissue. First and second toe previous amputation. Neurological: No focal deficits. Alert and oriented. Results - Labs 12/08/24 12:17 12/08/24 12:17 Abnormal Lab Results - Last 24 Hours (Table) 12/08/24 12/08/24 Range/Units 12:17 12:17 WBC 15.5 H (3.8-10.6) k/uL RBC 3.12 L (4.30-5.90) m/uL Hgb 8.3 L (13.0-17.5) gm/dL Hct 25.9 L (39.0-53.0) % Plt Count 585 H (150-450) k/uL Neutrophils # 13.0 H (1.3-7.7) k/uL Sodium 130 L (137-145) mmol/L Chloride 93 L (98-107) mmol/L BUN 25 H (9-20) mg/dL Glucose 212 H (74-99) mg/dL C-Reactive Protein 23.4 H (<1.0) mg/dL Albumin 3.2 L (3.5-5.0) g/dL Diabetes panel 12/08/24 Range/Units 12:17 Sodium 130 L (137-145) mmol/L Potassium 4.6 (3.5-5.1) mmol/L Chloride 93 L (98-107) mmol/L Carbon Dioxide 24 (22-30) mmol/L BUN 25 H (9-20) mg/dL Creatinine 1.14 (0.66-1.25) mg/dL Glucose 212 H (74-99) mg/dL Calcium 8.8 (8.4-10.2) mg/dL AST 20 (17-59) U/L ALT 14 (4-49) U/L Alkaline Phosphatase 112 (38-126) U/L Total Protein 7.5 (6.3-8.2) g/dL Albumin 3.2 L (3.5-5.0) g/dL Calcium panel 12/08/24 Range/Units 12:17 Calcium 8.8 (8.4-10.2) mg/dL Albumin 3.2 L (3.5-5.0) g/dL Pituitary panel 12/08/24 Range/Units 12:17 Sodium 130 L (137-145) mmol/L Potassium 4.6 (3.5-5.1) mmol/L Chloride 93 L (98-107) mmol/L Carbon Dioxide 24 (22-30) mmol/L BUN 25 H (9-20) mg/dL Creatinine 1.14 (0.66-1.25) mg/dL Glucose 212 H (74-99) mg/dL Calcium 8.8 (8.4-10.2) mg/dL Adrenal panel 12/08/24 Range/Units 12:17 Sodium 130 L (137-145) mmol/L Potassium 4.6 (3.5-5.1) mmol/L Chloride 93 L (98-107) mmol/L Carbon Dioxide 24 (22-30) mmol/L BUN 25 H (9-20) mg/dL Creatinine 1.14 (0.66-1.25) mg/dL Glucose 212 H (74-99) mg/dL Calcium 8.8 (8.4-10.2) mg/dL Total Bilirubin 0.4 (0.2-1.3) mg/dL AST 20 (17-59) U/L ALT 14 (4-49) U/L Alkaline Phosphatase 112 (38-126) U/L Total Protein 7.5 (6.3-8.2) g/dL Albumin 3.2 L (3.5-5.0) g/dL - Imaging Comments: Left foot x-ray reports mild lucency along the amputation site of the first d igit metatarsal correlate for signs and symptoms of osteomyelitis. No evidence of acute fracture. Multifocal degeneration changes throughout the joints of the foot. Assessment and Plan Assessment: 1. Diabetic left foot wounds, concern for infection 2. Possible osteomyelitis 3. Recent left femoral to posterior tibial vein bypass graft with left common femoral thromboendarterectomy 11/14/2024 4. Diabetes mellitus 5. History of atrial fibrillation 6. History of DVT 7. Peripheral arterial disease with previous right hzegp-mlz-jehy amputation 8. Coronary artery disease Plan: 1. Consult infectious disease for antibiotic recommendations 2. Local wound cultures collected and pending 3. Will plan for left foot wound debridement on Thursday 4. Rest of medical management per primary medical team Thank you for this consultation, we will continue to follow. The impression and plan of care has been dictated as directed. Dr. Hess I performed a history and examination of this patient, discussed the same with the dictator. I agree with the dictator's note ,documented as a scribe. Any additional findings or plans will be noted.
[2024-12-08 17:07] LABS: Glucose,Whole Blood 194 mg/dL (70-110)
[2024-12-08] MEDS: INSULIN LISPRO (HumaLOG) 100 UNIT/ML 10 mL VL SQ SCH (17:19)
[2024-12-08] MEDS: VANCOMYCIN 1,250 MG in SODIUM CHLORIDE 0.9% 250 ML IVPB STA (17:20)
[2024-12-08] MEDS: HYDROcodone/APAP 5-325MG 1 EACH TAB PO PRN (18:44)
[2024-12-08] MEDS ORDERED: polyethylene glycoL 3350 17 GM POWD.PACK PO PRN (20:24)
[2024-12-08 20:37] LABS: Glucose,Whole Blood 153 mg/dL (70-110)
[2024-12-08] MEDS: HYDROmorphone 0.5 MG/0.5 ML SYRINGE IVP PRN (20:41)
--- NOTE | 2024-12-08 21:16 | P.CONS ---
History of Present Illness - Reason for Consult Consult date: 12/08/24 Foot infection, antibiotic management Requesting physician: Radha Shay - Chief Complaint Nonhealing wound and drainage x days - History of Present Illness Patient is a 59-year-old -Malaysian male with a past medical history significant for Atrial Fibrillation, Asthma, Coronary Artery Disease (CAD), Heart Failure, Diabetes Mellitus, Deep Vein Thrombosis (DVT), Eye Disorder, Hyperlipidemia, Hypertension, Myocardial Infarction ([place]), Pneumonia, Renal Disease, Vascular Disorder did have right nqrmk-hdl-xojx amputation and recently underwent left femoral to posterior tibial vein bypass grafting along with left common femoral thromboendarterectomy along with debridement of his wound and has been treated with a wound VAC patient did have a culture done on 11/14/2024 which did grew Pseudomonas aeruginosa ESBL Klebsiella as well as MRSA however he is not very clear if the patient has received any antibiotic for them or not patient did have a follow-up visit with his vascular surgeon in the office today and noted to have foul-smelling drainage from his wound for the patient was advised to go to the hospital concerning for infection patient was started on vancomycin and Zosyn infectious was consulted for further management of antibiotic repeat patient on presentation to the hospital was afebrile no fever have been called subsequently patient was not tachycardic hypotensive or hypoxic he did have white count of 15.5 with a left shift creatinine is 1.14 liver enzymes are normal x-ray of the foot mild lucency along the amputation of the fourth digit metatarsal no acute fracture most information has been obtained from review the chart as the patient though awake alert was elevated good historian Review of Systems Positive point and negatives has been mentioned in the HPI, complete review of systems was performed and all other systems are negative Past Medical History Past Medical History: Atrial Fibrillation, Asthma, Coronary Artery Disease (CAD), Heart Failure, Diabetes Mellitus, Deep Vein Thrombosis (DVT), Eye Disorder, Hyperlipidemia, Hypertension, Myocardial Infarction ([place]), Pneumonia, Renal Disease, Vascular Disorder Additional Past Medical History / Comment(s): wound left foot-wound care [facility] lt foot-able to stand/pivot transfers,obtaining therapy at [facility] and learning to walk with prosthesis on rt AKA but unable to wt bear currently on left foot w./ wound,hx uvitis glaucoma rt eye, PVD, dvt to lower left leg,anemia,acute kidney failure in past,paroxysmal afib Last Myocardial Infarction Date:: unknown History of Any Multi-Drug Resistant Organisms: MRSA Year Discovered:: 11/14/24 MDRO Source:: Left leg/foot Past Surgical History: Hernia Repair, Orthopedic Surgery Additional Past Surgical History / Comment(s): aortgram w/ runnoff, eye surg, bilateral knee SX, left vein stripping in 02/2020 x2, vein graft and toe amputation rt bka 2023,rt AKA ,amputation 1rst & 2nd digits left foot Past Anesthesia/Blood Transfusion Reactions: No Reported Reaction Additional Past Anesthesia/Blood Transfusion Reaction / Comm: no problems with prior blood transfusion Past Psychological History: No Psychological Hx Reported Smoking Status: Former smoker Past Alcohol Use History: Rare Past Drug Use History: None Reported - Past Family History Mother History Unknown: Yes Brother(s) Family Medical History: COPD Additional Family Medical History / Comment(s): passed from COPD Father Family Medical History: Myocardial Infarction ([place]) Additional Family Medical History / Comment(s): passed from [place] Medications and Allergies Home Medications Medication Instructions Recorded Confirmed Type Acetaminophen Tab [Tylenol] 650 mg PO Q4H PRN 05/25/24 12/08/24 History Aspirin EC [Ecotrin Low Dose] 81 mg PO DAILY@0800 05/25/24 12/08/24 History Gabapentin [Neurontin] 300 mg PO TID@0600,1400,2200 05/25/24 12/08/24 History Sennosides-Docusate Sodium 1 tab PO BID@799,199905/25/24 12/08/24 History [Senokot-S] Amino Acids/Protein Hydrolys 30 ml PO BID@0800,199911/04/24 12/08/24 History [Pro-Stat Awc Liquid] Chlorthalidone [Hygroton] 25 mg PO DAILY@0600 11/04/24 12/08/24 History Ezetimibe [Zetia] 10 mg PO HS@199911/04/24 12/08/24 History Insulin Glargine (Lantus) [Lantus 14 unit SQ HS@199911/04/24 12/08/24 History Vial] Magnesium Oxide [Mag-Ox] 400 mg PO DAILY@0800 11/04/24 12/08/24 History NIFEdipine XL [Procardia XL] 60 mg PO BID@0800,199911/04/24 12/08/24 History Insulin Lispro [humaLOG Kwikpen] See Protocol SQ AC-TID@,,11/08/24 12/08/24 History polyethylene glycoL 3350 [Miralax] 17 gm PO DAILY PRN 7 Days #7 packet 11/16/24 12/08/24 Rx HYDROcodone/APAP 10-325MG [[place] 1 tab PO Q4HR PRN 12/08/24 12/08/24 History 10-325] House Supplement 120 ml PO TID@,,12/08/24 12/08/24 History Losartan [Cozaar] 25 mg PO DAILY@0800 12/08/24 12/08/24 History Sennosides [Senokot] 8.6 mg PO BID@0800,199912/08/24 12/08/24 History carvediloL [Coreg] 25 mg PO BID@0800,199912/08/24 12/08/24 History cloNIDine HCL [Catapres] 0.1 mg PO TID@0600,1400,2200 12/08/24 12/08/24 History Allergies Allergy/AdvReac Type Severity Reaction Status Date / Time atorvastatin [From Lipitor] Allergy Swelling Verified 12/08/24 14:10 ibuprofen Allergy Swelling Verified 12/08/24 14:10 pregabalin [From Lyrica] Allergy Swelling Verified 12/08/24 14:10 Physical Exam Vitals: Vital Signs Temp Pulse Resp BP Pulse Ox 12/08/24 13:49 79 16 122/74 96 12/08/24 11:51 98.6 F 66 18 148/77 98 Intake and Output 12/08/24 12/08/24 12/08/24 06:59 14:59 22:59 Other: Weight 67.132 kg GENERAL DESCRIPTION: Middle-age male lying in bed, no distress. No tachypnea or accessory muscle of respiration use. HEENT: Shows Pallor , no scleral icterus. Oral mucous membrane is dry. NECK: Trachea central, no thyromegaly. LUNGS: Unlabored breathing. Clear to auscultation anteriorly. No wheeze or crackle. HEART: S1, S2, regular rate and rhythm. No loud murmur ABDOMEN: Soft, no tenderness , guarding or rigidity, no organomegaly EXTREMITIES: No edema of feet. SKIN: No rash, no masses palpable. NEUROLOGICAL: The patient is awake, , mood and affect normal. Results CBC & Chem 7: 12/08/24 12:17 12/08/24 12:17 Labs: Abnormal Lab Results - Last 24 Hours (Table) 12/08/24 12/08/24 12/08/24 Range/Units 12:17 12:17 14:44 WBC 15.5 H (3.8-10.6) k/uL RBC 3.12 L (4.30-5.90) m/uL Hgb 8.3 L (13.0-17.5) gm/dL Hct 25.9 L (39.0-53.0) % Plt Count 585 H (150-450) k/uL Neutrophils # 13.0 H (1.3-7.7) k/uL Sodium 130 L (137-145) mmol/L Chloride 93 L (98-107) mmol/L BUN 25 H (9-20) mg/dL Glucose 212 H (74-99) mg/dL POC Glucose (mg/dL) 207 H (70-110) mg/dL C-Reactive Protein 23.4 H (<1.0) mg/dL Albumin 3.2 L (3.5-5.0) g/dL Assessment and Plan (1) Diabetic infection of left foot Current Visit: Yes Status: Acute Code(s): E11.628 - TYPE 2 DIABETES MELLITUS WITH OTHER SKIN COMPLICATIONS; L08.9 - LOCAL INFECTION OF THE SKIN AND SUBCUTANEOUS TISSUE, UNSP SNOMED Code(s): 330926640 (2) Cellulitis of left foot Current Visit: Yes Status: Acute Code(s): L03.116 - CELLULITIS OF LEFT LOWER LIMB SNOMED Code(s): 63929249464143013 (3) Diabetic ulcer of left foot Current Visit: Yes Status: Acute Code(s): E11.621 - TYPE 2 DIABETES MELLITUS WITH FOOT ULCER; L97.529 - NON-PRESSURE CHRONIC ULCER OTH PRT LEFT FOOT W UNSP SEVERITY SNOMED Code(s): 696376764 Plan: 1patient with complicated history with multiple comorbidities with a nonhealing ulcer to the left lower extremity along with a PAD with recent extensive vascular surgery and also have debridement of the wound with a culture done on 11/14/2024 positive for ESBL Klebsiella Pseudomonas and MRSA 2patient will be treated with vancomycin however discontinue Zosyn start the patient on meropenem to cover for both the Pseudomonas as well as ESBL Klebsiella 3check inflammatory markers 4will likely need PICC line and outpatient IV antibiotics We will follow on clinical condition and cultures to further adjust medication if needed Thank you for this consultation we will follow the patient along with you Dictation was produced using [employer] dictation software. please excuse any grammatical, word or spelling errors. Time with Patient: Greater than 30
[2024-12-08] MEDS: cloNIDine HCL 0.1 MG TAB PO SCH (21:17)
[2024-12-08] MEDS: HEPARIN SODIUM,PORCINE 5,000 UNIT/ML 1 ML VIAL SQ SCH (21:17)
[2024-12-08] MEDS: GABAPENTIN 300 MG CAP PO SCH (21:17)
[2024-12-08] MEDS: carvediloL 12.5 MG TAB PO SCH (21:24)
[2024-12-08] MEDS: INSULIN GLARGINE (LANTUS) 100 UNIT/ML SYR SQ SCH (21:30)
[2024-12-08] MEDS: MEROPENEM 1 GM in SODIUM CHLORIDE 0.9% 100 ML IVPB SCH (23:56)
[2024-12-08] MEDS: HYDROcodone/APAP 10-325MG 1 EACH TAB PO PRN (23:56)
[2024-12-09 05:19] LABS: African American GFR (CKD) >90 (>60 ml/min/1.73 sqM); Anion Gap 9 mmol/L; Blood Urea Nitrogen 19 mg/dL (9-20); Calcium 8.6 mg/dL (8.4-10.2); Carbon Dioxide 26 mmol/L (22-30); Chloride 95 mmol/L (98-107); Glucose 144 mg/dL (74-99); Non-African American GFR(CKD) >90 (>60 ml/min/1.73 sqM); Potassium 4.5 mmol/L (3.5-5.1); Sodium 130 mmol/L (137-145)
[2024-12-09 05:37] LABS: C Reactive Protein 22.3 mg/dL (<1.0)
[2024-12-09 06:18] LABS: Glucose,Whole Blood 156 mg/dL (70-110)
[2024-12-09] MEDS: CHLORTHALIDONE 25 MG TAB PO SCH (06:45)
[2024-12-09] MEDS ORDERED: NON FORMULARY DRUG (Amino Acids/Protein Hydrolys [Pro-Stat Awc Liquid] 887 ML Liquid) PO SCH (08:00)
[2024-12-09 08:29] LABS: Basophils # (A) 0.05 X 10*3/uL (0.00-0.10); Basophils % (A) 0.4 %; Eosinophils # (A) 0.22 X 10*3/uL (0.04-0.35); Eosinophils % (A) 1.7 %; HGB 7.9 g/dL (13.0-17.0); Lymphocytes # (A) 1.79 X 10*3/uL (0.90-5.00); Lymphocytes % (A) 13.5 %; MCH 27.1 pg (27.0-32.0); MCHC 31.6 g/dL (32.0-37.0); MCV 85.6 FL (80.0-97.0); Mean Platelet Volume 9.3 FL (9.5-12.2); Monocytes # (A) 1.01 X 10*3/uL (0.20-1.00); Monocytes % (A) 7.6 %; NRBC Per 100 WBC 0 X 10*3/uL (0.00-0.01); Neutrophils # (A) 10.09 X 10*3/uL (1.80-7.70); Neutrophils % (A) 76.3 %; Platelet Count 535 X 10*3/uL (140-440); RBC 2.92 X 10*6/uL (4.40-5.60); RDW 13.5 % (11.5-14.5); WBC 13.23 X 10*3/uL (4.50-10.00)
--- NOTE | 2024-12-09 08:44 | P.PN ---
Subjective Progress Note Date: 12/09/24 Principal diagnosis: Infected foot wound Patient is seen and examined today as a follow-up. He seems to be resting comfortably. No acute changes through the night. He has been afebrile. Infectious diseases following currently on IV antibiotics. Recommending likely need for PICC line prior to discharge. Patient scheduled for right foot wound debridement tomorrow morning. Objective - Vital Signs Vital signs: Vital Signs Temp 99.8 F H 12/09/24 00:14 Pulse 75 12/09/24 06:48 Resp 17 12/09/24 00:14 BP 153/60 12/09/24 06:48 Pulse Ox 100 12/09/24 00:14 FiO2 Intake & Output 12/08/24 12/09/24 12/09/24 18:59 06:59 18:59 Weight 67.132 kg Other: Voiding Method Urinal # Voids 1 - Exam General appearance: The patient is alert, oriented, appears in no acute distress. HET: Head is normocephalic and atraumatic. Neck: Supple. Heart: Regular. Lungs: Equal expansion, normal respiratory effort. Abdomen: Soft, nontender, nondistended. Extremities: Right osczi-vdi-utno amputation healed. Left foot with dressing clean dry and intact. Neurological: No focal deficits. - Labs CBC & Chem 7: 12/09/24 04:04 12/09/24 04:04 Labs: Abnormal Lab Results - Last 24 Hours (Table) 12/08/24 12/08/24 12/08/24 Range/Units 12:17 12:17 14:44 WBC 15.5 H (3.8-10.6) k/uL RBC 3.12 L (4.30-5.90) m/uL Hgb 8.3 L (13.0-17.5) gm/dL Hct 25.9 L (39.0-53.0) % Plt Count 585 H (150-450) k/uL Neutrophils # 13.0 H (1.3-7.7) k/uL Sodium 130 L (137-145) mmol/L Chloride 93 L (98-107) mmol/L BUN 25 H (9-20) mg/dL Glucose 212 H (74-99) mg/dL POC Glucose (mg/dL) 207 H (70-110) mg/dL C-Reactive Protein 23.4 H (<1.0) mg/dL Albumin 3.2 L (3.5-5.0) g/dL 12/08/24 12/08/24 12/09/24 Range/Units 17:05 20:36 04:04 WBC (3.8-10.6) k/uL RBC (4.30-5.90) m/uL Hgb (13.0-17.5) gm/dL Hct (39.0-53.0) % Plt Count (150-450) k/uL Neutrophils # (1.3-7.7) k/uL Sodium 130 L (137-145) mmol/L Chloride 95 L (98-107) mmol/L BUN (9-20) mg/dL Glucose 144 H (74-99) mg/dL POC Glucose (mg/dL) 194 H 153 H (70-110) mg/dL C-Reactive Protein 22.3 H (<1.0) mg/dL Albumin (3.5-5.0) g/dL 12/09/24 Range/Units 06:17 WBC (3.8-10.6) k/uL RBC (4.30-5.90) m/uL Hgb (13.0-17.5) gm/dL Hct (39.0-53.0) % Plt Count (150-450) k/uL Neutrophils # (1.3-7.7) k/uL Sodium (137-145) mmol/L Chloride (98-107) mmol/L BUN (9-20) mg/dL Glucose (74-99) mg/dL POC Glucose (mg/dL) 156 H (70-110) mg/dL C-Reactive Protein (<1.0) mg/dL Albumin (3.5-5.0) g/dL Microbiology - Last 24 Hours (Table) 12/08/24 12:38 Gram Stain - Preliminary Foot - Left Assessment and Plan Assessment: 1. Diabetic left foot wounds, concern for infection 2. Possible osteomyelitis 3. Recent left femoral to posterior tibial vein bypass graft with left common femoral thromboendarterectomy 11/14/2024 4. Diabetes mellitus 5. History of atrial fibrillation 6. History of DVT 7. Peripheral arterial disease with previous right vyzba-mro-myfo amputation 8. Coronary artery disease Plan: 1. Infectious disease on consultation, appreciate recommendations for antibiotic therapy 2. Local wound cultures collected and pending 3. Will plan for left foot wound debridement on Thursday 4. N.p.o. after midnight 5. Rest of medical management per primary medical team Thank you for this consultation, we will continue to follow. The impression and plan of care has been dictated as directed. Dr. Hess I performed a history and examination of this patient, discussed the same with the dictator. I agree with the dictator's note ,documented as a scribe. Any additional findings or plans will be noted.
[2024-12-09] MEDS: SENNOSIDES 8.6 MG TAB PO SCH (09:07)
[2024-12-09] MEDS: SENNOSIDES-DOCUSATE SODIUM 1 EACH TAB PO SCH (09:07)
[2024-12-09] MEDS: MAGNESIUM OXIDE 400 MG TAB PO SCH (09:07)
[2024-12-09] MEDS: LOSARTAN 25 MG TAB PO SCH (09:07)
[2024-12-09 09:44] LABS: Erythrocyte Sedimentation Rate 74 mm/Hr (0-20)
[2024-12-09] MEDS: VANCOMYCIN 1,250 MG in SODIUM CHLORIDE 0.9% 250 ML IVPB SCH (10:16)
[2024-12-09 11:25] LABS: Glucose,Whole Blood 177 mg/dL (70-110)
--- NOTE | 2024-12-09 11:32 | CDI ---
Documentation Clarification Form Date: 12/09/2024 11:20:13 AM From: Helga Pérez RN CCDS Phone: [phone] Admit Date: 12/08/2024 12:10:00 PM Patient Name: Benny Ladd Visit Number: [id number] Discharge Date: ATTENTION: The Clinical Documentation Specialists (CDI) and [facility] Coding Staff appreciate your assistance in clarifying documentation. Please respond to the clarification below the line at the bottom and electronically sign. The CDI & [facility] Coding staff will review the response and follow-up if needed. Please note: Queries are made part of the Legal Health Record. If you have any questions, please contact the author of this message via ITS. Doctor: Ruben Rios Your patient has the documented diagnosis of unspecified CHF 12/08, HP. Additional information regarding the type, acuity of CHF is requested. History/Risk Factors:59 year old male presents to the ED for severe left foot infection from [facility]. Medical History: CAD, Atrial fibrillation, CAD and CHF. 12/08, HP. Clinical Indicators: VS/Pulse OX, 12/08: VSS 148/77, HR 66, Temp 98.6F Oral, RR 18, SpO2 98% ra BMI 28.0kg Echocardiogram Results: 11/11/2024 Low normal LV systolic function with EF 50%, Mildly thickened mitral valve apparatus. Treatment: 12/08 Coreg po bid In your professional opinion, can you please clarify the acuity and type of CHF if known? [ ] Chronic Diastolic Heart Failure (preserved EF) [ ] Other, please specify [ ] Unable to determine (Template Last Revised: October 2020) Chronic Diastolic Heart Failure (preserved EF) MTDD
--- NOTE | 2024-12-09 14:20 | XR ---
EXAMINATION TYPE: XR chest 1V portable DATE OF EXAM: 12/09/2024 2:03 PM COMPARISON: 07/08/2022 CLINICAL INDICATION: Male, 59 years old with history of shortness of breath, TECHNIQUE: XR chest 1V portable views of the chest are obtained. FINDINGS: Demonstrated are scattered senescent parenchymal change. Patchy density right medial lung base may reflect developing infiltrate. The heart is stable. Hilar and mediastinal structures are within normal limits. Degenerative changes are seen of the dorsal spine. IMPRESSION: 1. Patchy density right medial lung base may reflect developing infiltrate. [facility], , 12/09/2024 2:18 PM
--- NOTE | 2024-12-09 15:11 | P.PN ---
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 On today's evaluation that is 12/09/2024, the patient did have a low-grade fever of 99.8 F at midnight patient has been afebrile since then, the patient is on room air and breathing comfortably, the Pt denies having any chest pain or cough, the patient denies having any abdominal pain no vomiting or any diarrhea. Patient white count is down to 13.23 creatinine 0.90 local culture growing gram- negative Objective - Vital Signs Vital signs: Vital Signs Temp 97.7 F 12/09/24 08:19 Pulse 63 12/09/24 08:19 Resp 18 12/09/24 08:19 BP 127/72 12/09/24 08:19 Pulse Ox 98 12/09/24 08:19 FiO2 Intake & Output 12/08/24 12/09/24 12/09/24 18:59 06:59 18:59 Weight 67.132 kg Other: Voiding Method Urinal # Voids 1 - Exam GENERAL DESCRIPTION: Middle-age male lying in bed in no distress RESPIRATORY SYSTEM: Unlabored breathing , decreased breath sounds at bases HEART: S1 S2 regular rate and rhythm , ABDOMEN: Soft , no tenderness EXTREMITIES: Left foot is currently dressed no drainage - Labs CBC & Chem 7: 12/09/24 04:04 12/09/24 04:04 Labs: Abnormal Lab Results - Last 24 Hours (Table) 12/08/24 12/08/24 12/08/24 Range/Units 14:44 17:05 20:36 WBC (4.50-10.00) X 10*3/uL RBC (4.40-5.60) X 10*6/uL Hgb (13.0-17.0) g/dL Hct (39.6-50.0) % MCHC (32.0-37.0) g/dL Plt Count (140-440) X 10*3/uL MPV (9.5-12.2) FL Immature Gran # (0.00-0.04) X 10*3/uL Neutrophils # (1.80-7.70) X 10*3/uL Monocytes # (0.20-1.00) X 10*3/uL ESR (0-20) mm/Hr Sodium (137-145) mmol/L Chloride (98-107) mmol/L Glucose (74-99) mg/dL POC Glucose (mg/dL) 207 H 194 H 153 H (70-110) mg/dL Hemoglobin A1c (<=6.0) % C-Reactive Protein (<1.0) mg/dL 12/09/24 12/09/24 12/09/24 Range/Units 04:04 04:04 04:04 WBC 13.23 H (4.50-10.00) X 10*3/uL RBC 2.92 L (4.40-5.60) X 10*6/uL Hgb 7.9 L (13.0-17.0) g/dL Hct 25.0 L (39.6-50.0) % MCHC 31.6 L (32.0-37.0) g/dL Plt Count 535 H (140-440) X 10*3/uL MPV 9.3 L (9.5-12.2) FL Immature Gran # 0.07 H (0.00-0.04) X 10*3/uL Neutrophils # 10.09 H (1.80-7.70) X 10*3/uL Monocytes # 1.01 H (0.20-1.00) X 10*3/uL ESR 74 H (0-20) mm/Hr Sodium 130 L (137-145) mmol/L Chloride 95 L (98-107) mmol/L Glucose 144 H (74-99) mg/dL POC Glucose (mg/dL) (70-110) mg/dL Hemoglobin A1c 10.5 H (<=6.0) % C-Reactive Protein 22.3 H (<1.0) mg/dL 12/09/24 12/09/24 Range/Units 06:17 11:23 WBC (4.50-10.00) X 10*3/uL RBC (4.40-5.60) X 10*6/uL Hgb (13.0-17.0) g/dL Hct (39.6-50.0) % MCHC (32.0-37.0) g/dL Plt Count (140-440) X 10*3/uL MPV (9.5-12.2) FL Immature Gran # (0.00-0.04) X 10*3/uL Neutrophils # (1.80-7.70) X 10*3/uL Monocytes # (0.20-1.00) X 10*3/uL ESR (0-20) mm/Hr Sodium (137-145) mmol/L Chloride (98-107) mmol/L Glucose (74-99) mg/dL POC Glucose (mg/dL) 156 H 177 H (70-110) mg/dL Hemoglobin A1c (<=6.0) % C-Reactive Protein (<1.0) mg/dL Microbiology - Last 24 Hours (Table) 12/08/24 12:38 Gram Stain - Preliminary Foot - Left Wound Culture - Preliminary Gram Neg Bacilli Gram Neg Bacilli#2 Assessment and Plan (1) Diabetic infection of left foot Current Visit: Yes Status: Acute Code(s): E11.628 - TYPE 2 DIABETES MELLITUS WITH OTHER SKIN COMPLICATIONS; L08.9 - LOCAL INFECTION OF THE SKIN AND SUBCUTANEOUS TISSUE, UNSP SNOMED Code(s): 381350049 (2) Cellulitis of left foot Current Visit: Yes Status: Acute Code(s): L03.116 - CELLULITIS OF LEFT LOWER LIMB SNOMED Code(s): 81517815011256575 (3) Diabetic ulcer of left foot Current Visit: Yes Status: Acute Code(s): E11.621 - TYPE 2 DIABETES MELLITUS WITH FOOT ULCER; L97.529 - NON-PRESSURE CHRONIC ULCER OTH PRT LEFT FOOT W UNSP SEVERITY SNOMED Code(s): 774408810 Plan: 1patient with complicated history with multiple comorbidities with a nonhealing ulcer to the left lower extremity along with a PAD with recent extensive vas cular surgery and also have debridement of the wound with a culture done on 11/14/2024 positive for ESBL Klebsiella Pseudomonas and MRSA 2patient local culture currently growing gram-negative bacilli x 2 patient is covered with meropenem as well as vancomycin while waiting for the culture to finalize Dictation was produced using [employer] dictation software. please excuse any grammatical, word or spelling errors.
[2024-12-09] MEDS ORDERED: VANCOMYCIN 1,250 MG in SODIUM CHLORIDE 0.9% 250 ML IVPB SCH (17:00)
[2024-12-09 17:09] LABS: Glucose,Whole Blood 143 mg/dL (70-110)
[2024-12-09 20:57] LABS: Glucose,Whole Blood 194 mg/dL (70-110)
[2024-12-09] MEDS: EZETIMIBE 10 MG TAB PO SCH (21:24)
--- NOTE | 2024-12-10 02:48 | PN ---
PROGRESS NOTE DATE OF SERVICE: 12/09/2024 SUBJECTIVE: This is a 59-year-old gentleman admitted with left foot diabetic infection, failure of outpatient treatment, is on IV antibiotics. The patient is scheduled for left foot debridement at this time. No chest pain. No palpitation. OBJECTIVE: VITAL SIGNS: Pulse is 75, blood pressure 120/64, respirations 17. CHEST: Clear to auscultation. CARDIOVASCULAR: S1, S2. ABDOMEN: Soft. EXTREMITIES: Left foot infection present. LABORATORY DATA: WBC 13.23, hemoglobin 7.9. ASSESSMENT: 1. Acute left foot diabetic foot infection with failure of outpatient treatment, severe with possible sepsis present on admission. 2. History of atrial fibrillation. 3. Anemia. 4. Coronary artery disease. 5. History of congestive heart failure. 6. Diabetes mellitus, type 2. 7. History of deep venous thrombosis. 8. Multiple complex medical issues. RECOMMENDATIONS: Recommend to continue current management and continue symptomatic treatment. Continue with antibiotics. Pain management. Hemoglobin 7.9. I would follow the cultures and repeat labs also. Closely follow with Vascular Surgery for possible debridement. The patient might require a PICC line and IV antibiotic treatment. MMODL / IJN: [id number] /
[2024-12-10 04:26] LABS: African American GFR (CKD) 88 (>60 ml/min/1.73 sqM); Anion Gap 6 mmol/L; Blood Urea Nitrogen 16 mg/dL (9-20); Calcium 8.5 mg/dL (8.4-10.2); Carbon Dioxide 27 mmol/L (22-30); Chloride 98 mmol/L (98-107); Glucose 110 mg/dL (74-99); Non-African American GFR(CKD) 76 (>60 ml/min/1.73 sqM); Potassium 4.4 mmol/L (3.5-5.1); Sodium 131 mmol/L (137-145)
[2024-12-10 06:33] LABS: Glucose,Whole Blood 93 mg/dL (70-110)
[2024-12-10] MEDS: ASPIRIN 81 MG PO SCH (06:44)
[2024-12-10] MEDS ORDERED: PROPOFOL 10 MG/ML 20 ML VIAL IV ONE (08:02)
[2024-12-10] MEDS ORDERED: KETAMINE HCL IN 0.9 % NACL 50 MG/5 ML SYRINGE ONE (08:02)
[2024-12-10] MEDS ORDERED: MIDAZOLAM 2 MG/2 ML VIAL ONE (08:02)
[2024-12-10] MEDS ORDERED: fentaNYL (PF) 50 MCG/ML 2 ML AMP ONE (08:02)
[2024-12-10] MEDS: LACTATED RINGERS 1,000 ML IV ONE (08:07)
[2024-12-10 09:30] LABS: Glucose,Whole Blood 114 mg/dL (70-110)
--- NOTE | 2024-12-10 09:37 | P.OP ---
Date of Procedure: 12/10/24 Description of Procedure: Preoperative diagnosis: Nonhealing left lower extremity wound, eschar and gangrene Postoperative diagnosis: Same Procedure: Sharp excisional debridement left lower extremity wound Dorsal 10.5 x 6 x 0.7 cm to bone Second toe amputation site 2 x 1 x 1 cm to subcutaneous tissues Lateral foot 11 x 6 x 0.4 cm to bone Surgeon: Estela Hess D.O. EBL: 5 cc IV fluids: See records Urine output: Not measured Drains: None Complications none immediately apparent Condition: Stable to recovery Operative indication and findings: Patient is a 59-year-old male with longstanding peripheral arterial disease and tobacco abuse who has recently been revascularized and reportedly on occasions has been turning off his wound VAC at his facility, with uncertain reason. He has had multiple debridements of this wound of his foot with attempts at healing, he was seen in the office by Dr. Garnett and sent over for debridement due to the appearance and foul smell. He has been on antibiotics. Risks and benefits were discussed. He seemingly understood and was willing to proceed.] Procedure in detail: He was brought to the operative suite and placed in supine position. The left lower extremity was prepped and draped in usual sterile fashion. A preprocedural timeout was performed, all parties were in agreement. Starting with the dorsum of the foot, the eschar was removed. This exposed tendon and bone of the midfoot. There was a small amount of purulent and fibrinous fluid which was cultured. Measurements are as above. Attention was then turned towards the second toe amputation site. There was an amount of callus that was initially removed due to abnormal appearance, this was then further debrided down and again there was a little small amount of fibrinous purulent drainage. Once irrigated this was more healthy appearing with decent bleeding along with the dorsum of the foot. There is minimal granulation tissue on the dorsum. On the lateral portion of the foot, similarly scalpel was utilized for sharp excisional debridement. This was done and did involve the layer of bone of the fifth metatarsal. The tissue was cultured. There is no significant bleeding on his lateral portion nor any significant healthy appearing granulation tissue. This is debrided back to a level of improved appearing tissue but again was minimal bleeding points. The areas were then copiously irrigated. Dakin's wet-to-dry dressings were placed.
[2024-12-10 09:50] LABS: Basophils # (A) 0.04 X 10*3/uL (0.00-0.10); Basophils % (A) 0.3 %; Eosinophils # (A) 0.23 X 10*3/uL (0.04-0.35); Eosinophils % (A) 1.7 %; HCT 23.6 % (39.6-50.0); HGB 7.2 g/dL (13.0-17.0); Lymphocytes # (A) 1.69 X 10*3/uL (0.90-5.00); Lymphocytes % (A) 12.6 %; MCH 26.4 pg (27.0-32.0); MCHC 30.5 g/dL (32.0-37.0); MCV 86.4 FL (80.0-97.0); Mean Platelet Volume 9.3 FL (9.5-12.2); Monocytes # (A) 1.06 X 10*3/uL (0.20-1.00); Monocytes % (A) 7.9 %; NRBC Per 100 WBC 0 X 10*3/uL (0.00-0.01); Neutrophils # (A) 10.32 X 10*3/uL (1.80-7.70); Neutrophils % (A) 77.1 %; Platelet Count 514 X 10*3/uL (140-440); RBC 2.73 X 10*6/uL (4.40-5.60); RDW 13.7 % (11.5-14.5)
[2024-12-10 11:56] LABS: Glucose,Whole Blood 197 mg/dL (70-110)
[2024-12-10 12:36] VITALS: BMI 27.9
--- NOTE | 2024-12-10 15:04 | P.PN ---
Subjective Progress Note Date: 12/10/24 Principal diagnosis: Reason for follow-up is left diabetic foot infection Patient is a 59-year-old -[place] male with a past medical history significant for Atrial Fibrillation, Asthma, Coronary Artery Disease (CAD), Heart Failure, Diabetes Mellitus, Deep Vein Thrombosis (DVT), Eye Disorder, Hyperlipidemia, Hypertension, Myocardial Infarction ([place]), Pneumonia, Renal Dis ease, Vascular Disorder did have right iphbk-xev-jagf amputation and recently underwent left femoral to posterior tibial vein bypass grafting along with left common femoral thromboendarterectomy along with debridement of his wound culture data was positive for multiple pathogen including MRSA Pseudomonas and ESBL Klebsiella and now admitted to hospital with a wound infection. Patient did have a sharp excisional debridement of the left lower extremity wound completed by vascular surgery on 12/10/2024. On today's evaluation that is 12/10/2024, patient did not have any fever and denies any chills, patient is breathing comfortably on room air, patient with no chest pain or cough patient did not have any abdominal pain nausea vomiting or any loose stools pain to the left foot is currently controlled. Patient white count is 13.40, creatinine 1.06 left foot culture growing Pseudomonas and gram-negative bacilli Objective - Vital Signs Vital signs: Vital Signs Temp 98.0 F 12/10/24 14:14 Pulse 72 12/10/24 14:14 Resp 14 12/10/24 14:14 BP 151/67 12/10/24 14:14 Pulse Ox 97 12/10/24 14:14 FiO2 Intake & Output 12/09/24 12/10/24 12/10/24 18:59 06:59 18:59 Intake Total 590 1730 400 Output Total 900 700 705 Balance -310 1030 -305 Weight 67.132 kg Intake: IV 400 Intake, IV Titration 350 Amount Meropenem 1 gm In Sodium 100 Chloride 0.9% 100 ml @ 33 .3 mls/hr IVPB Q8HR DENNISE Rx#:[id number] Vancomycin 1,250 mg In 250 Sodium Chloride 0.9% 250 ml @ 125 mls/hr IVPB Q16H DENNISE Rx#:[id number] Oral 240 1730 Output: Urine 900 700 700 Estimated Blood Loss 5 Other: Voiding Method Urinal # Voids 2 2 - Exam GENERAL DESCRIPTION: Middle-age male lying in bed in no distress RESPIRATORY SYSTEM: Unlabored breathing , decreased breath sounds at bases HEART: S1 S2 regular rate and rhythm , ABDOMEN: Soft , no tenderness EXTREMITIES: Left foot is currently dressed no drainage - Labs CBC & Chem 7: 12/10/24 02:40 12/10/24 02:40 Labs: Abnormal Lab Results - Last 24 Hours (Table) 12/09/24 12/09/24 12/10/24 Range/Units 17:08 20:55 02:40 WBC (4.50-10.00) X 10*3/uL RBC (4.40-5.60) X 10*6/uL Hgb (13.0-17.0) g/dL Hct (39.6-50.0) % MCH (27.0-32.0) pg MCHC (32.0-37.0) g/dL Plt Count (140-440) X 10*3/uL MPV (9.5-12.2) FL Immature Gran # (0.00-0.04) X 10*3/uL Neutrophils # (1.80-7.70) X 10*3/uL Monocytes # (0.20-1.00) X 10*3/uL Sodium 131 L (137-145) mmol/L Glucose 110 H (74-99) mg/dL POC Glucose (mg/dL) 143 H 194 H (70-110) mg/dL 12/10/24 12/10/24 12/10/24 Range/Units 02:40 09:29 11:54 WBC 13.40 H (4.50-10.00) X 10*3/uL RBC 2.73 L (4.40-5.60) X 10*6/uL Hgb 7.2 L (13.0-17.0) g/dL Hct 23.6 L (39.6-50.0) % MCH 26.4 L (27.0-32.0) pg MCHC 30.5 L (32.0-37.0) g/dL Plt Count 514 H (140-440) X 10*3/uL MPV 9.3 L (9.5-12.2) FL Immature Gran # 0.06 H (0.00-0.04) X 10*3/uL Neutrophils # 10.32 H (1.80-7.70) X 10*3/uL Monocytes # 1.06 H (0.20-1.00) X 10*3/uL Sodium (137-145) mmol/L Glucose (74-99) mg/dL POC Glucose (mg/dL) 114 H 197 H (70-110) mg/dL Microbiology - Last 24 Hours (Table) 12/08/24 12:38 Gram Stain - Preliminary Foot - Left Wound Culture - Preliminary Gram Neg Bacilli Pseudomonas aeruginosa 12/08/24 12:17 Blood Culture - Preliminary Blood Assessment and Plan (1) Diabetic infection of left foot Current Visit: Yes Status: Acute Code(s): E11.628 - TYPE 2 DIABETES MELLITUS WITH OTHER SKIN COMPLICATIONS; L08.9 - LOCAL INFECTION OF THE SKIN AND SUBCUTANEOUS TISSUE, UNSP SNOMED Code(s): 645917866 (2) Cellulitis of left foot Current Visit: Yes Status: Acute Code(s): L03.116 - CELLULITIS OF LEFT LOWER LIMB SNOMED Code(s): 37399639308294741 (3) Diabetic ulcer of left foot Current Visit: Yes Status: Acute Code(s): E11.621 - TYPE 2 DIABETES MELLITUS WITH FOOT ULCER; L97.529 - NON-PRESSURE CHRONIC ULCER OTH PRT LEFT FOOT W UNSP SEVERITY SNOMED Code(s): 041565095 Plan: 1patient with complicated history with multiple comorbidities with a nonhealing ulcer to the left lower extremity along with a PAD with recent extensive vascular surgery and also have debridement of the wound with a culture done on 11/14/2024 positive for ESBL Klebsiella Pseudomonas and MRSA 2patient local culture currently growing gram-negative bacilli and a Pseudomonas which is a sensitive pathogen patient is currently covered with meropenem vancomycin while waiting for the culture to finalize Dictation was produced using [employer] dictation software. please excuse any grammatical, word or spelling errors. Time with Patient: Less than 30
[2024-12-10 16:51] LABS: Glucose,Whole Blood 213 mg/dL (70-110)
--- NOTE | 2024-12-10 17:53 | PN ---
PROGRESS NOTE DATE OF SERVICE: 12/08/2024 SUBJECTIVE: This is a 59-year-old gentleman who was admitted after left foot diabetic infection, had surgery. No chest pain. No palpitation. Cultures are showing Pseudomonas aeruginosa. OBJECTIVE: VITAL SIGNS: Pulse 72, blood pressure n, respirations 14. CHEST: Clear to auscultation. CARDIOVASCULAR: S1 and S2. ABDOMEN: Soft. LEGS: Status post surgery. LABORATORY DATA: Hemoglobin 7.2. Rest of the labs are noted. ASSESSMENT: 1. Left foot diabetic ulcer with failure of outpatient treatment, status post surgery with Pseudomonas aeruginosa. 2. Anemia. 3. Atrial fibrillation. 4. Multiple complex medical issues. RECOMMENDATIONS: Recommend to continue current management previous notes. Repeat labs. The patient is on meropenem and vancomycin. Guarded prognosis. Further recommendations to follow. MMODL / IJN: [id number] / MTDD
[2024-12-11 06:29] LABS: Glucose,Whole Blood 304 mg/dL (70-110)
[2024-12-11] MEDS: VANCOMYCIN TROUGH DUE 1 EACH MISC MISCELLANE ONE (08:38)
[2024-12-11 09:42] LABS: BUN/Creat Ratio 15.64 Ratio (12.00-20.00); Blood Urea Nitrogen 17.2 mg/dL (9.0-27.0); Calcium 8.2 mg/dL (8.7-10.3); Carbon Dioxide 21.3 mmol/L (21.6-31.8); Chloride 99 mmol/L (96-109); Glucose 257 mg/dL (70-110); Potassium 4.8 mmol/L (3.5-5.5); Sodium 133 mmol/L (135-145)
[2024-12-11 10:06] LABS: Basophils # (A) 0.06 X 10*3/uL (0.00-0.10); Basophils % (A) 0.3 %; Eosinophils # (A) 0.09 X 10*3/uL (0.04-0.35); Eosinophils % (A) 0.5 %; HCT 22.3 % (39.6-50.0); HGB 6.8 g/dL (13.0-17.0); Lymphocytes # (A) 1.63 X 10*3/uL (0.90-5.00); Lymphocytes % (A) 8.9 %; MCH 26.5 pg (27.0-32.0); MCHC 30.5 g/dL (32.0-37.0); MCV 86.8 FL (80.0-97.0); Mean Platelet Volume 9.3 FL (9.5-12.2); Monocytes # (A) 1.39 X 10*3/uL (0.20-1.00); Monocytes % (A) 7.6 %; NRBC Per 100 WBC 0 X 10*3/uL (0.00-0.01); Neutrophils # (A) 15.01 X 10*3/uL (1.80-7.70); Neutrophils % (A) 82.2 %; Platelet Count 503 X 10*3/uL (140-440); RBC 2.57 X 10*6/uL (4.40-5.60); RBC Morphology Normal (Normal); RDW 13.8 % (11.5-14.5); WBC 18.28 X 10*3/uL (4.50-10.00)
[2024-12-11 10:25] LABS: African American GFR (CKD) >90 (>60 ml/min/1.73 sqM); Non-African American GFR(CKD) 89 (>60 ml/min/1.73 sqM)
[2024-12-11 11:43] LABS: Basophils % (A) 0 %; Eosinophils # (A) 0.2 k/uL (0-0.7); Eosinophils % (A) 1 %; HCT 23.5 % (39.0-53.0); HGB 7.4 gm/dL (13.0-17.5); Hypochromasia Marked; Lymphocytes # (A) 1.2 k/uL (1.0-4.8); Lymphocytes % (A) 7 %; MCH 26.8 pg (25.0-35.0); MCHC 31.5 g/dL (31.0-37.0); MCV 85.1 fL (80.0-100.0); Mean Platelet Volume 6.7; Monocytes # (A) 0.9 k/uL (0-1.0); Monocytes % (A) 5 %; Neutrophils # (A) 14.6 k/uL (1.3-7.7); Neutrophils % (A) 86 %; Platelet Count 543 k/uL (150-450); RBC 2.76 m/uL (4.30-5.90); RDW 13.6 % (11.5-15.5); WBC 17.1 k/uL (3.8-10.6)
[2024-12-11 12:15] LABS: Glucose,Whole Blood 328 mg/dL (70-110)
--- NOTE | 2024-12-11 15:39 | P.PN ---
Subjective Progress Note Date: 12/11/24 Principal diagnosis: Reason for follow-up is left diabetic foot infection Patient is a 59-year-old -[place] male with a past medical history significant for Atrial Fibrillation, Asthma, Coronary Artery Disease (CAD), Heart Failure, Diabetes Mellitus, Deep Vein Thrombosis (DVT), Eye Disorder, Hyperlipidemia, Hypertension, Myocardial Infarction ([place]), Pneumonia, Renal Dis ease, Vascular Disorder did have right qoipn-toc-agas amputation and recently underwent left femoral to posterior tibial vein bypass grafting along with left common femoral thromboendarterectomy along with debridement of his wound culture data was positive for multiple pathogen including MRSA Pseudomonas and ESBL Klebsiella and now admitted to hospital with a wound infection. Patient did have a sharp excisional debridement of the left lower extremity wound completed by vascular surgery on 12/10/2024. On today's evaluation that is 12/11/2024, Patient is afebrile patient is currently on room air and denies having any shortness of breath, the patient denies any chest pain or cough, the patient denies any nausea vomiting did not have any abdominal pain and no diarrhea still complaining of pain to the left foot area especially with dressing changes. Patient white count 17.1, creatinine 0.93 Vanco trough low at 7.2 culture growing Pseudomonas and providencia Objective - Vital Signs Vital signs: Vital Signs Temp 99.7 F H 12/11/24 08:12 Pulse 65 12/11/24 08:12 Resp 20 12/11/24 11:15 BP 150/66 12/11/24 08:12 Pulse Ox 99 12/11/24 08:12 FiO2 Intake & Output 12/10/24 12/11/24 12/11/24 18:59 06:59 18:59 Intake Total 400 1620 1000 Output Total 1105 300 Balance -705 1620 700 Weight 67.132 kg Intake: IV 400 Oral 1620 1000 Output: Urine 1100 300 Estimated Blood Loss 5 Other: Voiding Method Urinal Urinal # Voids 2 4 - Exam GENERAL DESCRIPTION: Middle-age male lying in bed in no distress RESPIRATORY SYSTEM: Unlabored breathing , decreased breath sounds at bases HEART: S1 S2 regular rate and rhythm , ABDOMEN: Soft , no tenderness EXTREMITIES: Left foot wound is deep with some slough tissue some foul-smelling - Labs CBC & Chem 7: 12/11/24 11:20 12/11/24 09:48 Labs: Abnormal Lab Results - Last 24 Hours (Table) 12/10/24 12/11/24 12/11/24 Range/Units 16:50 03:45 03:45 WBC 18.28 H (4.50-10.00) X 10*3/uL RBC 2.57 L (4.40-5.60) X 10*6/uL Hgb 6.8 A* (13.0-17.0) g/dL Hct 22.3 L (39.6-50.0) % MCH 26.5 L (27.0-32.0) pg MCHC 30.5 L (32.0-37.0) g/dL Plt Count 503 H (140-440) X 10*3/uL MPV 9.3 L (9.5-12.2) FL Immature Gran # 0.10 H (0.00-0.04) X 10*3/uL Neutrophils # 15.01 H (1.80-7.70) X 10*3/uL Monocytes # 1.39 H (0.20-1.00) X 10*3/uL Sodium 133 L (135-145) mmol/L Carbon Dioxide 21.3 L (21.6-31.8) mmol/L Anion Gap 12.70 H (4.00-12.00) mmol/L Glucose 257 H (70-110) mg/dL POC Glucose (mg/dL) 213 H (70-110) mg/dL Calcium 8.2 L (8.7-10.3) mg/dL 12/11/24 12/11/24 12/11/24 Range/Units 06:28 11:20 12:11 WBC 17.1 H (4.50-10.00) X 10*3/uL RBC 2.76 L (4.40-5.60) X 10*6/uL Hgb 7.4 L (13.0-17.0) g/dL Hct 23.5 L (39.6-50.0) % MCH (27.0-32.0) pg MCHC (32.0-37.0) g/dL Plt Count 543 H (140-440) X 10*3/uL MPV (9.5-12.2) FL Immature Gran # (0.00-0.04) X 10*3/uL Neutrophils # 14.6 H (1.80-7.70) X 10*3/uL Monocytes # (0.20-1.00) X 10*3/uL Sodium (135-145) mmol/L Carbon Dioxide (21.6-31.8) mmol/L Anion Gap (4.00-12.00) mmol/L Glucose (70-110) mg/dL POC Glucose (mg/dL) 304 H 328 H (70-110) mg/dL Calcium (8.7-10.3) mg/dL Microbiology - Last 24 Hours (Table) 12/10/24 08:45 Gram Stain - Preliminary Foot - Left Wound Culture - Preliminary 12/10/24 08:45 Gram Stain - Preliminary Foot - Left Wound Culture - Preliminary Klebsiella pneum subsp pneum 12/08/24 12:38 Gram Stain - Final Foot - Left Wound Culture - Final Providencia stuartii Pseudomonas aeruginosa 12/08/24 22:44 Anaerobic Culture - Preliminary Foot - Left 12/08/24 12:17 Blood Culture - Preliminary Blood Assessment and Plan (1) Diabetic infection of left foot Current Visit: Yes Status: Acute Code(s): E11.628 - TYPE 2 DIABETES MELLITUS WITH OTHER SKIN COMPLICATIONS; L08.9 - LOCAL INFECTION OF THE SKIN AND SUBCUTANEOUS TISSUE, UNSP SNOMED Code(s): 741857637 (2) Cellulitis of left foot Current Visit: Yes Status: Acute Code(s): L03.116 - CELLULITIS OF LEFT LOWER LIMB SNOMED Code(s): 65007562429553251 (3) Diabetic ulcer of left foot Current Visit: Yes Status: Acute Code(s): E11.621 - TYPE 2 DIABETES MELLITUS WITH FOOT ULCER; L97.529 - NON-PRESSURE CHRONIC ULCER OTH PRT LEFT FOOT W UNSP SEVERITY SNOMED Code(s): 950527711 Plan: 1patient with complicated history with multiple comorbidities with a nonhealing ulcer to the left lower extremity along with a PAD with recent extensive vascular surgery and also have debridement of the wound with a culture done on 11/14/2024 positive for ESBL Klebsiella Pseudomonas and MRSA 2patient local culture currently providencia and Pseudomonas which is a sensitive pathogen with the cultures obtained yesterday growing Klebsiella sensitivities pending we will continue patient on meropenem with no MRSA discontinue daptomycin will order PICC line for outpatient antibiotic Dictation was produced using [employer] dictation software. please excuse any grammatical, word or spelling errors. Time with Patient: Less than 30
[2024-12-11 16:59] LABS: Glucose,Whole Blood 267 mg/dL (70-110)
[2024-12-11] MEDS: ACETAMINOPHEN TAB 325 MG TAB PO PRN (20:29)
[2024-12-11] MEDS ORDERED: VANCOMYCIN 1,250 MG in SODIUM CHLORIDE 0.9% 250 ML IVPB SCH (21:00)
[2024-12-11 21:17] LABS: Glucose,Whole Blood 268 mg/dL (70-110)
--- NOTE | 2024-12-11 22:45 | PN ---
PROGRESS NOTE DATE OF SERVICE: 12/11/2024 SUBJECTIVE: This 59-year-old gentleman admitted after left diabetic foot ulcer, had surgery. Cultures are showing Klebsiella as well as Providencia and Pseudomonas. PHYSICAL EXAMINATION: VITAL SIGNS: Pulse is 65, blood pressure 150/66. HEENT: Conjunctivae normal. CARDIOVASCULAR: S1, S2. RESPIRATIONS: Few scattered rhonchi. ABDOMEN: Soft and nontender. LEGS: Status post surgery. LABORATORY DATA: WBC 17.1. ASSESSMENT: 1. Left foot diabetic ulcer with failure of outpatient treatment, status post surgery with Pseudomonas aeruginosa, Klebsiella and assess Providencia stuartii. 2. Anemia. 3. Continued fever. 4. Atrial fibrillation. 5. Multiple complex medical issues. Please refer to previous chart. RECOMMENDATIONS AND DISCUSSION: This 59-year-old gentleman, presented with multiple complex medical issues. Recommend to continue the current medications, continue symptomatic treatment. The patient is on IV meropenem. I would recommend repeat labs. Await final ID of the organisms. Guarded prognosis. Further recommendations to follow. Recommend repeat blood cultures. MMODL / IJN: [id number] /
[2024-12-12 06:09] LABS: Glucose,Whole Blood 221 mg/dL (70-110)
[2024-12-12 08:45] LABS: Basophils # (A) 0.05 X 10*3/uL (0.00-0.10); Basophils % (A) 0.3 %; Eosinophils # (A) 0.32 X 10*3/uL (0.04-0.35); HCT 21.4 % (39.6-50.0); HGB 6.6 g/dL (13.0-17.0); Lymphocytes # (A) 1.59 X 10*3/uL (0.90-5.00); Lymphocytes % (A) 9.8 %; MCH 26.7 pg (27.0-32.0); MCHC 30.8 g/dL (32.0-37.0); MCV 86.6 FL (80.0-97.0); Mean Platelet Volume 9.4 FL (9.5-12.2); Monocytes # (A) 1.04 X 10*3/uL (0.20-1.00); Monocytes % (A) 6.4 %; NRBC Per 100 WBC 0 X 10*3/uL (0.00-0.01); Neutrophils # (A) 13.13 X 10*3/uL (1.80-7.70); Neutrophils % (A) 80.8 %; Platelet Count 481 X 10*3/uL (140-440); RBC 2.47 X 10*6/uL (4.40-5.60); RDW 13.9 % (11.5-14.5); WBC 16.24 X 10*3/uL (4.50-10.00)
[2024-12-12 09:57] LABS: Blood Urea Nitrogen 18.8 mg/dL (9.0-27.0); Carbon Dioxide 22.8 mmol/L (21.6-31.8); Chloride 100 mmol/L (96-109); Glucose 210 mg/dL (70-110); Potassium 4.8 mmol/L (3.5-5.5); Sodium 135 mmol/L (135-145)
[2024-12-12 09:58] LABS: Calcium 8.2 mg/dL (8.7-10.3)
[2024-12-12 12:10] LABS: Glucose,Whole Blood 214 mg/dL (70-110)
--- NOTE | 2024-12-12 15:18 | P.PN ---
Subjective Progress Note Date: 12/12/24 Patient doing well today. Had PICC line placed and currently being transfused 1 unit for Hgb of 6 Objective - Vital Signs Vital signs: Vital Signs Temp 99.9 F H 12/12/24 15:06 Pulse 72 12/12/24 15:06 Resp 14 12/12/24 15:06 BP 147/72 12/12/24 15:06 Pulse Ox 96 12/12/24 14:25 FiO2 Intake & Output 12/11/24 12/12/24 12/12/24 18:59 06:59 18:59 Intake Total 1200 300 Output Total 700 275 550 Balance 500 -275 -250 Intake: Oral 1200 Tube Feeding 300 Blood Product 0 Unit 0 Output: Urine 700 275 550 Other: Voiding Method Urinal # Voids 1 - Labs CBC & Chem 7: 12/12/24 03:45 12/12/24 03:45 Labs: Abnormal Lab Results - Last 24 Hours (Table) 12/11/24 12/11/24 12/12/24 Range/Units 16:55 21:15 03:45 WBC 16.24 H (4.50-10.00) X 10*3/uL RBC 2.47 L (4.40-5.60) X 10*6/uL Hgb 6.6 A* (13.0-17.0) g/dL Hct 21.4 L (39.6-50.0) % MCH 26.7 L (27.0-32.0) pg MCHC 30.8 L (32.0-37.0) g/dL Plt Count 481 H (140-440) X 10*3/uL MPV 9.4 L (9.5-12.2) FL Immature Gran # 0.11 H (0.00-0.04) X 10*3/uL Neutrophils # 13.13 H (1.80-7.70) X 10*3/uL Monocytes # 1.04 H (0.20-1.00) X 10*3/uL Anion Gap (4.00-12.00) mmol/L Glucose (70-110) mg/dL POC Glucose (mg/dL) 267 H 268 H (70-110) mg/dL Calcium (8.7-10.3) mg/dL Crossmatch 12/12/24 12/12/24 12/12/24 Range/Units 03:45 06:07 11:16 WBC (4.50-10.00) X 10*3/uL RBC (4.40-5.60) X 10*6/uL Hgb (13.0-17.0) g/dL Hct (39.6-50.0) % MCH (27.0-32.0) pg MCHC (32.0-37.0) g/dL Plt Count (140-440) X 10*3/uL MPV (9.5-12.2) FL Immature Gran # (0.00-0.04) X 10*3/uL Neutrophils # (1.80-7.70) X 10*3/uL Monocytes # (0.20-1.00) X 10*3/uL Anion Gap 12.20 H (4.00-12.00) mmol/L Glucose 210 H (70-110) mg/dL POC Glucose (mg/dL) 221 H (70-110) mg/dL Calcium 8.2 L (8.7-10.3) mg/dL Crossmatch See Detail 12/12/24 Range/Units 12:06 WBC (4.50-10.00) X 10*3/uL RBC (4.40-5.60) X 10*6/uL Hgb (13.0-17.0) g/dL Hct (39.6-50.0) % MCH (27.0-32.0) pg MCHC (32.0-37.0) g/dL Plt Count (140-440) X 10*3/uL MPV (9.5-12.2) FL Immature Gran # (0.00-0.04) X 10*3/uL Neutrophils # (1.80-7.70) X 10*3/uL Monocytes # (0.20-1.00) X 10*3/uL Anion Gap (4.00-12.00) mmol/L Glucose (70-110) mg/dL POC Glucose (mg/dL) 214 H (70-110) mg/dL Calcium (8.7-10.3) mg/dL Crossmatch Microbiology - Last 24 Hours (Table) 12/10/24 08:45 Anaerobic Culture - Preliminary Foot - Left 12/10/24 08:45 Anaerobic Culture - Preliminary Foot - Left 12/10/24 08:45 Gram Stain - Preliminary Foot - Left Wound Culture - Preliminary Pseudomonas aeruginosa 12/10/24 08:45 Gram Stain - Final Foot - Left Wound Culture - Final Klebsiella pneum subsp pneum Burkholderia cepacia complex 12/08/24 12:17 Blood Culture - Preliminary Blood Assessment and Plan Assessment: 1. Diabetic left foot wounds s/p debridement and toe amputation 2. Possible osteomyelitis 3. Recent left femoral to posterior tibial vein bypass graft with left common femoral thromboendarterectomy 11/14/2024 4. Diabetes mellitus 5. History of atrial fibrillation 6. History of DVT 7. Peripheral arterial disease with previous right cprfu-bwx-iver amputation 8. Coronary artery disease Plan: Agree with blood transfusion Continue antibiotics per ID Continue Local wound care
[2024-12-12 16:48] LABS: Glucose,Whole Blood 313 mg/dL (70-110)
--- NOTE | 2024-12-12 17:01 | P.PN ---
Subjective Progress Note Date: 12/12/24 Principal diagnosis: Reason for follow-up is left diabetic foot infection Patient is a 59-year-old -[place] male with a past medical history significant for Atrial Fibrillation, Asthma, Coronary Artery Disease (CAD), Heart Failure, Diabetes Mellitus, Deep Vein Thrombosis (DVT), Eye Disorder, Hyperlipidemia, Hypertension, Myocardial Infarction ([place]), Pneumonia, Renal Dis ease, Vascular Disorder did have right kkgmp-umj-ctfc amputation and recently underwent left femoral to posterior tibial vein bypass grafting along with left common femoral thromboendarterectomy along with debridement of his wound culture data was positive for multiple pathogen including MRSA Pseudomonas and ESBL Klebsiella and now admitted to hospital with a wound infection. Patient did have a sharp excisional debridement of the left lower extremity wound completed by vascular surgery on 12/10/2024. On today's evaluation that is 12/12/2024, patient running low-grade fever of 100 F this afternoon patient been upset because getting poked multiple times for the IV no chest pain shortness with a cough and abdominal pain or worsening pain to the foot. Patient white count is 16.24 hemoglobin is 6.6 creatinine is 1.0 culture with ESBL Klebsiella Burkholderia and Pseudomonas Objective - Vital Signs Vital signs: Vital Signs Temp 98.6 F 12/12/24 07:43 Pulse 67 12/12/24 07:43 Resp 18 12/12/24 07:43 BP 125/56 12/12/24 07:43 Pulse Ox 96 12/12/24 07:43 FiO2 Intake & Output 12/11/24 12/12/24 12/12/24 18:59 06:59 18:59 Intake Total 1200 300 Output Total 700 275 550 Balance 500 -275 -250 Intake: Oral 1200 Tube Feeding 300 Output: Urine 700 275 550 Other: Voiding Method Urinal # Voids 1 - Exam GENERAL DESCRIPTION: Middle-age male lying in bed in no distress RESPIRATORY SYSTEM: Unlabored breathing , decreased breath sounds at bases HEART: S1 S2 regular rate and rhythm , ABDOMEN: Soft , no tenderness EXTREMITIES: Left foot wound is currently dressed - Labs CBC & Chem 7: 12/12/24 03:45 12/12/24 03:45 Labs: Abnormal Lab Results - Last 24 Hours (Table) 12/11/24 12/11/24 12/12/24 Range/Units 16:55 21:15 03:45 WBC 16.24 H (4.50-10.00) X 10*3/uL RBC 2.47 L (4.40-5.60) X 10*6/uL Hgb 6.6 A* (13.0-17.0) g/dL Hct 21.4 L (39.6-50.0) % MCH 26.7 L (27.0-32.0) pg MCHC 30.8 L (32.0-37.0) g/dL Plt Count 481 H (140-440) X 10*3/uL MPV 9.4 L (9.5-12.2) FL Immature Gran # 0.11 H (0.00-0.04) X 10*3/uL Neutrophils # 13.13 H (1.80-7.70) X 10*3/uL Monocytes # 1.04 H (0.20-1.00) X 10*3/uL Anion Gap (4.00-12.00) mmol/L Glucose (70-110) mg/dL POC Glucose (mg/dL) 267 H 268 H (70-110) mg/dL Calcium (8.7-10.3) mg/dL Crossmatch 12/12/24 12/12/24 12/12/24 Range/Units 03:45 06:07 11:16 WBC (4.50-10.00) X 10*3/uL RBC (4.40-5.60) X 10*6/uL Hgb (13.0-17.0) g/dL Hct (39.6-50.0) % MCH (27.0-32.0) pg MCHC (32.0-37.0) g/dL Plt Count (140-440) X 10*3/uL MPV (9.5-12.2) FL Immature Gran # (0.00-0.04) X 10*3/uL Neutrophils # (1.80-7.70) X 10*3/uL Monocytes # (0.20-1.00) X 10*3/uL Anion Gap 12.20 H (4.00-12.00) mmol/L Glucose 210 H (70-110) mg/dL POC Glucose (mg/dL) 221 H (70-110) mg/dL Calcium 8.2 L (8.7-10.3) mg/dL Crossmatch See Detail 12/12/24 Range/Units 12:06 WBC (4.50-10.00) X 10*3/uL RBC (4.40-5.60) X 10*6/uL Hgb (13.0-17.0) g/dL Hct (39.6-50.0) % MCH (27.0-32.0) pg MCHC (32.0-37.0) g/dL Plt Count (140-440) X 10*3/uL MPV (9.5-12.2) FL Immature Gran # (0.00-0.04) X 10*3/uL Neutrophils # (1.80-7.70) X 10*3/uL Monocytes # (0.20-1.00) X 10*3/uL Anion Gap (4.00-12.00) mmol/L Glucose (70-110) mg/dL POC Glucose (mg/dL) 214 H (70-110) mg/dL Calcium (8.7-10.3) mg/dL Crossmatch Microbiology - Last 24 Hours (Table) 12/10/24 08:45 Gram Stain - Preliminary Foot - Left Wound Culture - Preliminary Pseudomonas aeruginosa 12/10/24 08:45 Gram Stain - Final Foot - Left Wound Culture - Final Klebsiella pneum subsp pneum Burkholderia cepacia complex 12/08/24 12:17 Blood Culture - Preliminary Blood Assessment and Plan (1) Diabetic infection of left foot Current Visit: Yes Status: Acute Code(s): E11.628 - TYPE 2 DIABETES MELLITUS WITH OTHER SKIN COMPLICATIONS; L08.9 - LOCAL INFECTION OF THE SKIN AND SUBCUTANEOUS TISSUE, UNSP SNOMED Code(s): 783536978 (2) Cellulitis of left foot Current Visit: Yes Status: Acute Code(s): L03.116 - CELLULITIS OF LEFT LOWER LIMB SNOMED Code(s): 89100657239765881 (3) Diabetic ulcer of left foot Current Visit: Yes Status: Acute Code(s): E11.621 - TYPE 2 DIABETES MELLITUS WITH FOOT ULCER; L97.529 - NON-PRESSURE CHRONIC ULCER OTH PRT LEFT FOOT W UNSP SEVERITY SNOMED Code(s): 734515450 Plan: 1patient with complicated history with multiple comorbidities with a nonhealing ulcer to the left lower extremity along with a PAD with recent extensive vascular surgery and also have debridement of the wound with a culture done on 11/14/2024 positive for ESBL Klebsiella Pseudomonas and MRSA 2patient local culture currently growing ESBL Klebsiella Burkholderia and Pseudomonas with the patient is covered with the meropenem currently waiting for PICC line placement 3did have significant drop in hemoglobin will benefit from GI evaluation Dictation was produced using [email or web address] dictation software. please excuse any grammatical, word or spelling errors.
[2024-12-12 20:57] LABS: Glucose,Whole Blood 337 mg/dL (70-110)
--- NOTE | 2024-12-12 23:04 | P.PN ---
Subjective Progress Note Date: 12/12/24 Principal diagnosis: Non healing Left foot wound Mr. Ladd is a 59-year-old gentleman with a past medical history of poorly controlled diabetes, atrial fibrillation, CHF, hypertension, hyperlipidemia, [place], CKD, peripheral vascular disease right dtxbi-lfy-yaxm amputation, coming in with nonhealing wound and drainage. The patient's cultures are showing Pseudomonas and Klebsiella. Today the patient is lying in bed appears to be not acute distress. He complains of pain in the left lower extremity. He denies any fevers chills or rigors. He denies having any chest pain or difficulty in breathing. Patient's vital signs are reviewed low-grade fever with heart rate around 72 blood pressure 1 4581 saturating at 97% on room air. Labs have been reviewed hemoglobin of 6.6 albumin of 3 point Objective - Vital Signs Vital signs: Vital Signs Temp 101.4 F H 12/12/24 19:35 Pulse 71 12/12/24 19:35 Resp 18 12/12/24 19:35 BP 119/55 12/12/24 19:35 Pulse Ox 93 L 12/12/24 19:35 FiO2 Intake & Output 12/12/24 12/12/24 12/13/24 06:59 18:59 06:59 Intake Total 1120 Output Total 275 550 Balance -275 570 Intake: Intake, IV Titration 200 Amount Meropenem 1 gm In Sodium 200 Chloride 0.9% 100 ml @ 33 .3 mls/hr IVPB Q8HR [facility] Rx#:[id number] Tube Feeding 300 Blood Product 620 Rc Irr As1 Unit 310 [id number] Output: Urine 275 550 Other: Voiding Method Urinal # Voids 1 1 - Exam General Impression: Alert and oriented x3, not in acute distress HEENT: pupils equal and reactive to light bilaterally, mucous membranes moist. Cardiovascular: Heart regular rate and rhythm Lungs - Bilateral Breath sounds normal Abdomen: abdomen soft, non-tender, non-distended, no organomegaly Neurological: no focal motor or sensory deficits noted Left lower extremity in crepe bandages soiled with discharge Psych: Normal affect and mood - Labs CBC & Chem 7: 12/12/24 03:45 12/12/24 03:45 Labs: Abnormal Lab Results - Last 24 Hours (Table) 03/24/25 03/24/25 03/24/25 Range/Units 03:45 03:45 06:07 WBC 16.24 H (4.50-10.00) X 10*3/uL RBC 2.47 L (4.40-5.60) X 10*6/uL Hgb 6.6 A* (13.0-17.0) g/dL Hct 21.4 L (39.6-50.0) % MCH 26.7 L (27.0-32.0) pg MCHC 30.8 L (32.0-37.0) g/dL Plt Count 481 H (140-440) X 10*3/uL MPV 9.4 L (9.5-12.2) FL Immature Gran # 0.11 H (0.00-0.04) X 10*3/uL Neutrophils # 13.13 H (1.80-7.70) X 10*3/uL Monocytes # 1.04 H (0.20-1.00) X 10*3/uL Anion Gap 12.20 H (4.00-12.00) mmol/L Glucose 210 H (70-110) mg/dL POC Glucose (mg/dL) 221 H (70-110) mg/dL Calcium 8.2 L (8.7-10.3) mg/dL Crossmatch 12/12/24 12/12/24 12/12/24 Range/Units 11:16 12:06 16:46 WBC (4.50-10.00) X 10*3/uL RBC (4.40-5.60) X 10*6/uL Hgb (13.0-17.0) g/dL Hct (39.6-50.0) % MCH (27.0-32.0) pg MCHC (32.0-37.0) g/dL Plt Count (140-440) X 10*3/uL MPV (9.5-12.2) FL Immature Gran # (0.00-0.04) X 10*3/uL Neutrophils # (1.80-7.70) X 10*3/uL Monocytes # (0.20-1.00) X 10*3/uL Anion Gap (4.00-12.00) mmol/L Glucose (70-110) mg/dL POC Glucose (mg/dL) 214 H 313 H (70-110) mg/dL Calcium (8.7-10.3) mg/dL Crossmatch See Detail 12/12/24 Range/Units 20:55 WBC (4.50-10.00) X 10*3/uL RBC (4.40-5.60) X 10*6/uL Hgb (13.0-17.0) g/dL Hct (39.6-50.0) % MCH (27.0-32.0) pg MCHC (32.0-37.0) g/dL Plt Count (140-440) X 10*3/uL MPV (9.5-12.2) FL Immature Gran # (0.00-0.04) X 10*3/uL Neutrophils # (1.80-7.70) X 10*3/uL Monocytes # (0.20-1.00) X 10*3/uL Anion Gap (4.00-12.00) mmol/L Glucose (70-110) mg/dL POC Glucose (mg/dL) 337 H (70-110) mg/dL Calcium (8.7-10.3) mg/dL Crossmatch Microbiology - Last 24 Hours (Table) 12/08/24 22:44 Anaerobic Culture - Final Foot - Left 12/10/24 08:45 Anaerobic Culture - Preliminary Foot - Left 12/10/24 08:45 Anaerobic Culture - Preliminary Foot - Left 12/10/24 08:45 Gram Stain - Preliminary Foot - Left Wound Culture - Preliminary Pseudomonas aeruginosa 12/10/24 08:45 Gram Stain - Final Foot - Left Wound Culture - Final Klebsiella pneum subsp pneum Burkholderia cepacia complex Assessment and Plan Assessment: ASSESSMENT Nonhealing wound of left fooot Poorly controlled diabetes Acute blood loss anemia status post surgical debridement of the wound Hypertension Atrial fibrillation Hyperlipidemia CKD Severe peripheral vascular disease Congestive heart failure ejection fraction of 50% with global hypokinesia Mild protein calorie malnutrition Hyponatremia resolved PLAN Patient received 1 unit of PRBC this morning due to low hemoglobin of 6.6 Continue antibiotics in the form of meropenem as per ID recommendation Vascular surgery on board for debridement Continue with his poorly controlled diabetes continue with the rest of his medication regimen Further recommendations to follow depending on the progress Overall prognosis guarded secondary to noncompliance issues
[2024-12-13 00:15] LABS: Basophils % (A) 0 %; Eosinophils # (A) 0.3 k/uL (0-0.7); Eosinophils % (A) 2 %; HCT 24.3 % (39.0-53.0); HGB 7.7 gm/dL (13.0-17.5); Hypochromasia Moderate; Lymphocytes # (A) 1.5 k/uL (1.0-4.8); Lymphocytes % (A) 10 %; MCH 26.6 pg (25.0-35.0); MCHC 31.5 g/dL (31.0-37.0); MCV 84.4 fL (80.0-100.0); Monocytes # (A) 0.6 k/uL (0-1.0); Monocytes % (A) 4 %; Neutrophils # (A) 12.8 k/uL (1.3-7.7); Neutrophils % (A) 83 %; Platelet Count 508 k/uL (150-450); RBC 2.88 m/uL (4.30-5.90); RDW 14.1 % (11.5-15.5); WBC 15.4 k/uL (3.8-10.6)
[2024-12-13 00:42] LABS: African American GFR (CKD) >90 (>60 ml/min/1.73 sqM); Anion Gap 9 mmol/L; Blood Urea Nitrogen 20 mg/dL (9-20); Calcium 8.4 mg/dL (8.4-10.2); Carbon Dioxide 25 mmol/L (22-30); Chloride 97 mmol/L (98-107); Glucose 266 mg/dL (74-99); Non-African American GFR(CKD) >90 (>60 ml/min/1.73 sqM); Potassium 4.6 mmol/L (3.5-5.1); Sodium 131 mmol/L (137-145)
[2024-12-13 06:08] LABS: Glucose,Whole Blood 267 mg/dL (70-110)
[2024-12-13 11:08] LABS: Glucose,Whole Blood 200 mg/dL (70-110)
--- NOTE | 2024-12-13 15:05 | P.PN ---
Subjective Progress Note Date: 12/13/24 Principal diagnosis: Reason for follow-up is left diabetic foot infection Patient is a 59-year-old -[place] male with a past medical history significant for Atrial Fibrillation, Asthma, Coronary Artery Disease (CAD), Heart Failure, Diabetes Mellitus, Deep Vein Thrombosis (DVT), Eye Disorder, Hyperlipidemia, Hypertension, Myocardial Infarction ([place]), Pneumonia, Renal Dis ease, Vascular Disorder did have right ddhhc-qah-wvum amputation and recently underwent left femoral to posterior tibial vein bypass grafting along with left common femoral thromboendarterectomy along with debridement of his wound culture data was positive for multiple pathogen including MRSA Pseudomonas and ESBL Klebsiella and now admitted to hospital with a wound infection. Patient did have a sharp excisional debridement of the left lower extremity wound completed by vascular surgery on 12/10/2024. On today's evaluation that is 12/13/2024, Patient did spike a fever of 101.4 F last night however is afebrile this morning patient is currently breathing comfortably room air feeling better no chest pain or cough or any worsening pain to the foot. Patient white count is 15.4 creatinine 0.91 blood culture has been negative so far Objective - Vital Signs Vital signs: Vital Signs Temp 99.0 F 12/13/24 14:13 Pulse 65 12/13/24 14:13 Resp 18 12/13/24 14:13 BP 135/55 12/13/24 14:13 Pulse Ox 95 12/13/24 14:13 FiO2 Intake & Output 12/12/24 12/13/24 12/13/24 18:59 06:59 18:59 Intake Total 1120 Output Total 550 Balance 570 Intake: Intake, IV Titration 200 Amount Meropenem 1 gm In Sodium 200 Chloride 0.9% 100 ml @ 33 .3 mls/hr IVPB Q8HR [facility] Rx#:[id number] Tube Feeding 300 Blood Product 620 Rc Irr As1 Unit 310 [id number] Output: Urine 550 Other: Voiding Method Urinal External Catheter # Voids 1 1 - Exam GENERAL DESCRIPTION: Middle-age male lying in bed in no distress RESPIRATORY SYSTEM: Unlabored breathing , decreased breath sounds at bases HEART: S1 S2 regular rate and rhythm , ABDOMEN: Soft , no tenderness EXTREMITIES: Left foot wound is currently dressed - Labs CBC & Chem 7: 12/13/24 00:05 12/13/24 00:05 Labs: Abnormal Lab Results - Last 24 Hours (Table) 12/12/24 12/12/24 12/12/24 Range/Units 11:16 16:46 20:55 WBC (3.8-10.6) k/uL RBC (4.30-5.90) m/uL Hgb (13.0-17.5) gm/dL Hct (39.0-53.0) % Plt Count (150-450) k/uL Neutrophils # (1.3-7.7) k/uL Sodium (137-145) mmol/L Chloride (98-107) mmol/L Glucose (74-99) mg/dL POC Glucose (mg/dL) 313 H 337 H (70-110) mg/dL Crossmatch See Detail 12/13/24 12/13/24 12/13/24 Range/Units 00:05 00:05 06:06 WBC 15.4 H (3.8-10.6) k/uL RBC 2.88 L (4.30-5.90) m/uL Hgb 7.7 L (13.0-17.5) gm/dL Hct 24.3 L (39.0-53.0) % Plt Count 508 H (150-450) k/uL Neutrophils # 12.8 H (1.3-7.7) k/uL Sodium 131 L (137-145) mmol/L Chloride 97 L (98-107) mmol/L Glucose 266 H (74-99) mg/dL POC Glucose (mg/dL) 267 H (70-110) mg/dL Crossmatch 12/13/24 Range/Units 11:03 WBC (3.8-10.6) k/uL RBC (4.30-5.90) m/uL Hgb (13.0-17.5) gm/dL Hct (39.0-53.0) % Plt Count (150-450) k/uL Neutrophils # (1.3-7.7) k/uL Sodium (137-145) mmol/L Chloride (98-107) mmol/L Glucose (74-99) mg/dL POC Glucose (mg/dL) 200 H (70-110) mg/dL Crossmatch Microbiology - Last 24 Hours (Table) 12/10/24 08:45 Anaerobic Culture - Final Foot - Left 12/10/24 08:45 Anaerobic Culture - Final Foot - Left 12/10/24 08:45 Gram Stain - Final Foot - Left Wound Culture - Final Pseudomonas aeruginosa 12/11/24 16:43 Blood Culture - Preliminary Blood 12/08/24 22:44 Anaerobic Culture - Final Foot - Left Assessment and Plan (1) Diabetic infection of left foot Current Visit: Yes Status: Acute Code(s): E11.628 - TYPE 2 DIABETES MELLITUS WITH OTHER SKIN COMPLICATIONS; L08.9 - LOCAL INFECTION OF THE SKIN AND SUBCUTANEOUS TISSUE, UNSP SNOMED Code(s): 617056179 (2) Cellulitis of left foot Current Visit: Yes Status: Acute Code(s): L03.116 - CELLULITIS OF LEFT LOWER LIMB SNOMED Code(s): 08075247165998298 (3) Diabetic ulcer of left foot Current Visit: Yes Status: Acute Code(s): E11.621 - TYPE 2 DIABETES MELLITUS WITH FOOT ULCER; L97.529 - NON-PRESSURE CHRONIC ULCER OTH PRT LEFT FOOT W UNSP SEVERITY SNOMED Code(s): 681888111 Plan: 1patient with complicated history with multiple comorbidities with a nonhealing ulcer to the left lower extremity along with a PAD with recent extensive vascular surgery and also have debridement of the wound with a culture done on 11/14/2024 positive for ESBL Klebsiella Pseudomonas and MRSA 2patient local culture currently growing ESBL Klebsiella Burkholderia and Pseudomonas with the patient is covered with the meropenem 3patient did have PICC line placement plan will be for 6-week course of IV meropenem on discharge Dictation was produced using [employer] dictation software. please excuse any grammatical, word or spelling errors. Time with Patient: Less than 30
[2024-12-13 16:40] LABS: Glucose,Whole Blood 206 mg/dL (70-110)
[2024-12-13 20:33] LABS: Glucose,Whole Blood 237 mg/dL (70-110)
[2024-12-14 06:08] LABS: Glucose,Whole Blood 274 mg/dL (70-110)
[2024-12-14 11:45] LABS: Glucose,Whole Blood 329 mg/dL (70-110)
[2024-12-14 17:08] LABS: Glucose,Whole Blood 241 mg/dL (70-110)
--- NOTE | 2024-12-14 17:13 | P.PN ---
Subjective Progress Note Date: 12/14/24 Principal diagnosis: Reason for follow-up is left diabetic foot infection Patient is a 59-year-old -[place] male with a past medical history significant for Atrial Fibrillation, Asthma, Coronary Artery Disease (CAD), Heart Failure, Diabetes Mellitus, Deep Vein Thrombosis (DVT), Eye Disorder, Hyperlipidemia, Hypertension, Myocardial Infarction ([place]), Pneumonia, Renal Dis ease, Vascular Disorder did have right fjdwi-kla-uztb amputation and recently underwent left femoral to posterior tibial vein bypass grafting along with left common femoral thromboendarterectomy along with debridement of his wound culture data was positive for multiple pathogen including MRSA Pseudomonas and ESBL Klebsiella and now admitted to hospital with a wound infection. Patient did have a sharp excisional debridement of the left lower extremity wound completed by vascular surgery on 12/10/2024. On today's evaluation that is 12/14/2024,the patient did have a low-grade fever 100.7 at midnight however denies any fever or any chills this morning, patient is breathing comfortably on room air, the patient denies chest pain shortness of breath and no significant cough, patient denies abdominal pain, no nausea vomiting or diarrhea, pain to the left foot is controlled [facility]. No new lab has been obtained today blood culture repeat has been negative. Objective - Vital Signs Vital signs: Vital Signs Temp 98.3 F 12/14/24 09:14 Pulse 75 12/14/24 09:14 Resp 16 12/14/24 09:14 BP 171/81 12/14/24 09:14 Pulse Ox 98 12/14/24 09:14 FiO2 Intake & Output 12/13/24 12/14/24 12/14/24 18:59 06:59 18:59 Intake Total 240 Output Total 500 400 650 Balance -500 160 -650 Intake: Oral 240 Output: Urine 500 400 650 Other: Voiding Method External Catheter External Catheter External Catheter # Voids 2 - Exam GENERAL DESCRIPTION: Middle-age male lying in bed in no distress RESPIRATORY SYSTEM: Unlabored breathing , decreased breath sounds at bases HEART: S1 S2 regular rate and rhythm , ABDOMEN: Soft , no tenderness EXTREMITIES: Left foot wound is currently dressed - Labs CBC & Chem 7: 12/13/24 00:05 12/13/24 00:05 Labs: Abnormal Lab Results - Last 24 Hours (Table) 12/13/24 12/13/24 12/14/24 Range/Units 16:38 20:32 06:06 POC Glucose (mg/dL) 206 H 237 H 274 H (70-110) mg/dL 12/14/24 Range/Units 11:40 POC Glucose (mg/dL) 329 H (70-110) mg/dL Microbiology - Last 24 Hours (Table) 12/11/24 16:43 Blood Culture - Preliminary Blood 12/08/24 12:17 Blood Culture - Final Blood 12/10/24 08:45 Anaerobic Culture - Final Foot - Left 12/10/24 08:45 Anaerobic Culture - Final Foot - Left 12/10/24 08:45 Gram Stain - Final Foot - Left Wound Culture - Final Pseudomonas aeruginosa Assessment and Plan (1) Diabetic infection of left foot Current Visit: Yes Status: Acute Code(s): E11.628 - TYPE 2 DIABETES MELLITUS WITH OTHER SKIN COMPLICATIONS; L08.9 - LOCAL INFECTION OF THE SKIN AND SUBCUTANEOUS TISSUE, UNSP SNOMED Code(s): 936957504 (2) Cellulitis of left foot Current Visit: Yes Status: Acute Code(s): L03.116 - CELLULITIS OF LEFT LOWER LIMB SNOMED Code(s): 66026269097618544 (3) Diabetic ulcer of left foot Current Visit: Yes Status: Acute Code(s): E11.621 - TYPE 2 DIABETES MELLITUS WITH FOOT ULCER; L97.529 - NON-PRESSURE CHRONIC ULCER OTH PRT LEFT FOOT W UNSP SEVERITY SNOMED Code(s): 439098876 Plan: 1patient with complicated history with multiple comorbidities with a nonhealing ulcer to the left lower extremity along with a PAD with recent extensive vascular surgery and also have debridement of the wound with a culture done on 11/14/2024 positive for ESBL Klebsiella Pseudomonas and MRSA 2patient local culture currently growing ESBL Klebsiella Burkholderia and Pseudomonas with the patient is covered with the meropenem 3patient did have PICC line placement and is currently being treated with the meropenem plan is for total 6-week course of therapy and a close outpatient follow-up Dictation was produced using [employer] dictation software. please excuse any grammatical, word or spelling errors. Time with Patient: Less than 30
[2024-12-14 20:12] LABS: Glucose,Whole Blood 250 mg/dL (70-110)
--- NOTE | 2024-12-14 20:31 | P.PN ---
Subjective Progress Note Date: 12/13/24 59-year-old gentleman with a past medical history of poorly controlled diabetes, atrial fibrillation, CHF, hypertension, hyperlipidemia, [place], CKD, peripheral vascular disease right [id number] amputation, coming in with nonhealing wound and drainage. The patient's cultures are showing Pseudomonas and K lebsiella. Objective - Vital Signs Vital signs: Vital Signs Temp 98.8 F 12/13/24 08:04 Pulse 74 12/13/24 08:04 Resp 17 12/13/24 08:04 BP 116/57 12/13/24 08:04 Pulse Ox 92 L 12/13/24 08:04 FiO2 Intake & Output 12/12/24 12/13/24 12/13/24 18:59 06:59 18:59 Intake Total 1120 Output Total 550 Balance 570 Intake: Intake, IV Titration 200 Amount Meropenem 1 gm In Sodium 200 Chloride 0.9% 100 ml @ 33 .3 mls/hr IVPB Q8HR DENNISE Rx#:[id number] Tube Feeding 300 Blood Product 620 Rc Irr As1 Unit 310 [id number] Output: Urine 550 Other: Voiding Method Urinal External Catheter # Voids 1 1 - Exam General Impression: Alert and oriented x3, not in acute distress HEENT: pupils equal and reactive to light bilaterally, mucous membranes moist. Cardiovascular: Heart regular rate and rhythm Lungs - Bilateral Breath sounds normal Abdomen: abdomen soft, non-tender, non-distended, no organomegaly Neurological: no focal motor or sensory deficits noted Left lower extremity in crepe bandages soiled with discharge Psych: Normal affect and mood - Labs CBC & Chem 7: 12/13/24 00:05 12/13/24 00:05 Labs: Abnormal Lab Results - Last 24 Hours (Table) 12/12/24 12/12/24 12/12/24 Range/Units 11:16 16:46 20:55 WBC (3.8-10.6) k/uL RBC (4.30-5.90) m/uL Hgb (13.0-17.5) gm/dL Hct (39.0-53.0) % Plt Count (150-450) k/uL Neutrophils # (1.3-7.7) k/uL Sodium (137-145) mmol/L Chloride (98-107) mmol/L Glucose (74-99) mg/dL POC Glucose (mg/dL) 313 H 337 H (70-110) mg/dL Crossmatch See Detail 12/13/24 12/13/24 12/13/24 Range/Units 00:05 00:05 06:06 WBC 15.4 H (3.8-10.6) k/uL RBC 2.88 L (4.30-5.90) m/uL Hgb 7.7 L (13.0-17.5) gm/dL Hct 24.3 L (39.0-53.0) % Plt Count 508 H (150-450) k/uL Neutrophils # 12.8 H (1.3-7.7) k/uL Sodium 131 L (137-145) mmol/L Chloride 97 L (98-107) mmol/L Glucose 266 H (74-99) mg/dL POC Glucose (mg/dL) 267 H (70-110) mg/dL Crossmatch 12/13/24 Range/Units 11:03 WBC (3.8-10.6) k/uL RBC (4.30-5.90) m/uL Hgb (13.0-17.5) gm/dL Hct (39.0-53.0) % Plt Count (150-450) k/uL Neutrophils # (1.3-7.7) k/uL Sodium (137-145) mmol/L Chloride (98-107) mmol/L Glucose (74-99) mg/dL POC Glucose (mg/dL) 200 H (70-110) mg/dL Crossmatch Microbiology - Last 24 Hours (Table) 12/10/24 08:45 Gram Stain - Final Foot - Left Wound Culture - Final Pseudomonas aeruginosa 12/11/24 16:43 Blood Culture - Preliminary Blood 12/08/24 22:44 Anaerobic Culture - Final Foot - Left 12/10/24 08:45 Anaerobic Culture - Preliminary Foot - Left 12/10/24 08:45 Anaerobic Culture - Preliminary Foot - Left 12/10/24 08:45 Gram Stain - Final Foot - Left Wound Culture - Final Klebsiella pneum subsp pneum Burkholderia cepacia complex Assessment and Plan Assessment: Nonhealing wound of left fooot Poorly controlled diabetes Acute blood loss anemia status post surgical debridement of the wound Hypertension Atrial fibrillation Hyperlipidemia CKD Severe peripheral vascular disease Congestive heart failure ejection fraction of 50% with global hypokinesia Mild protein calorie malnutrition Hyponatremia resolved PLAN Patient received 1 unit of PRBC this morning due to low hemoglobin of 6.6 Continue antibiotics in the form of meropenem as per ID recommendation Vascular surgery on board for debridement Continue with his poorly controlled diabetes continue with the rest of his medication regimen Further recommendations to follow depending on the progress Overall prognosis guarded secondary to noncompliance issues
--- NOTE | 2024-12-14 20:34 | P.PN ---
Subjective Progress Note Date: 12/14/24 59-year-old gentleman with a past medical history of poorly controlled diabetes, atrial fibrillation, CHF, hypertension, hyperlipidemia, [place], CKD, peripheral vascular disease right [id number]-[id number] amputation, coming in with nonhealing wound and drainage. The patient's cultures are showing Pseudomonas and K lebsiella. 12/14/2024 the patient did have a low-grade fever 100.7 at midnight however denies any fever or any chills this morning, patient is breathing comfortably on room air, the patient denies chest pain shortness of breath and no significant cough, patient denies abdominal pain, no nausea vomiting or diarrhea, pain to the left foot is controlled [facility] to go back [facility] the [facility]. No new lab has been obtained today blood culture repeat has been negative. patient with complicated history with multiple comorbidities with a nonhealing ulcer to the left lower extremity along with a PAD with recent extensive vascular surgery and also have debridement of the wound with a culture done on 11/14/2024 positive for ESBL Klebsiella Pseudomonas and MRSA patient local culture currently growing ESBL Klebsiella Burkholderia and Pseudomonas with the patient is covered with the meropenem patient did have PICC line placement and is currently being treated with the meropenem plan is for total 6-week course of therapy and a close outpatient follow-up Objective - Vital Signs Vital signs: Vital Signs Temp 98.6 F 12/14/24 14:20 Pulse 60 12/14/24 14:20 Resp 17 12/14/24 14:20 BP 177/73 12/14/24 14:20 Pulse Ox 100 12/14/24 14:20 FiO2 Intake & Output 12/14/24 12/14/24 12/15/24 06:59 18:59 06:59 Intake Total 240 Output Total 400 1200 Balance -160 -1200 Weight 67.132 kg Intake: Oral 240 Output: Urine 400 1200 Other: Voiding Method External Catheter External Catheter # Voids 2 - Exam General Impression: Alert and oriented x3, not in acute distress HEENT: pupils equal and reactive to light bilaterally, mucous membranes moist. Cardiovascular: Heart regular rate and rhythm Lungs - Bilateral Breath sounds normal Abdomen: abdomen soft, non-tender, non-distended, no organomegaly Neurological: no focal motor or sensory deficits noted Left lower extremity in crepe bandages soiled with discharge Psych: Normal affect and mood - Labs CBC & Chem 7: 12/13/24 00:05 12/13/24 00:05 Labs: Abnormal Lab Results - Last 24 Hours (Table) 12/13/24 12/14/24 12/14/24 Range/Units 20:32 06:06 11:40 POC Glucose (mg/dL) 237 H 274 H 329 H (70-110) mg/dL 12/14/24 12/14/24 Range/Units 17:06 20:10 POC Glucose (mg/dL) 241 H 250 H (70-110) mg/dL Microbiology - Last 24 Hours (Table) 12/11/24 16:43 Blood Culture - Preliminary Blood 12/08/24 12:17 Blood Culture - Final Blood Assessment and Plan Assessment: Nonhealing wound of left fooot Poorly controlled diabetes Acute blood loss anemia status post surgical debridement of the wound Hypertension Atrial fibrillation Hyperlipidemia CKD Severe peripheral vascular disease Congestive heart failure ejection fraction of 50% with global hypokinesia Mild protein calorie malnutrition Hyponatremia resolved PLAN Patient received 1 unit of PRBC this morning due to low hemoglobin of 6.6 Continue antibiotics in the form of meropenem as per ID recommendation Vascular surgery on board for debridement Continue with his poorly controlled diabetes continue with the rest of his medication regimen Further recommendations to follow depending on the progress Overall prognosis guarded secondary to noncompliance issues
[2024-12-15 06:19] LABS: Glucose,Whole Blood 323 mg/dL (70-110)
[2024-12-15 08:39] LABS: BUN/Creat Ratio 15.56 Ratio (12.00-20.00); Chloride 99 mmol/L (96-109); Glucose 292 mg/dL (70-110); Potassium 5.5 mmol/L (3.5-5.5); Sodium 132 mmol/L (135-145)
[2024-12-15 08:40] LABS: Calcium 8.8 mg/dL (8.7-10.3); Carbon Dioxide 22.8 mmol/L (21.6-31.8)
[2024-12-15 08:51] LABS: Basophils # (A) 0.06 X 10*3/uL (0.00-0.10); Basophils % (A) 0.4 %; Eosinophils # (A) 0.36 X 10*3/uL (0.04-0.35); Eosinophils % (A) 2.5 %; HCT 26.9 % (39.6-50.0); HGB 8.4 g/dL (13.0-17.0); Lymphocytes # (A) 1.78 X 10*3/uL (0.90-5.00); Lymphocytes % (A) 12.5 %; MCH 27.1 pg (27.0-32.0); MCHC 31.2 g/dL (32.0-37.0); MCV 86.8 FL (80.0-97.0); Mean Platelet Volume 9.4 FL (9.5-12.2); Monocytes # (A) 0.91 X 10*3/uL (0.20-1.00); Monocytes % (A) 6.4 %; NRBC Per 100 WBC 0 X 10*3/uL (0.00-0.01); Neutrophils # (A) 10.99 X 10*3/uL (1.80-7.70); Neutrophils % (A) 77.4 %; Platelet Count 549 X 10*3/uL (140-440); RDW 14.5 % (11.5-14.5); WBC 14.21 X 10*3/uL (4.50-10.00)
[2024-12-15 11:10] LABS: Glucose,Whole Blood 293 mg/dL (70-110)
--- NOTE | 2024-12-15 12:01 | P.DS ---
Providers Date of admission: 12/08/24 12:10 Expected date of discharge: 12/15/24 Attending physician: Ruben Rios Consults: 12/08/24 12:40 Consult Physician Routine Consulting Provider: Stephen Dennison Consult Reason/Comments: chronic non-healing wounds Do you want consulting provider notified?: Yes 12/08/24 13:17 Consult Physician Routine Consulting Provider: Tee Batista Consult Reason/Comments: Foot infection, antibiotic recommendations Do you want consulting provider notified?: Yes Primary care physician: Jade Schroeder DO Hospital Course: 59-year-old gentleman with a past medical history of poorly controlled diabetes, atrial fibrillation, CHF, hypertension, hyperlipidemia, [place], CKD, peripheral vascular disease right [id number] amputation, coming in with nonhealing wound and drainage. The patient's cultures are showing Pseudomonas and Klebsiella. Nonhealing wound of left fooot Poorly controlled diabetes Acute blood loss anemia status post surgical debridement of the wound Hypertension Atrial fibrillation Hyperlipidemia CKD Severe peripheral vascular disease Congestive heart failure ejection fraction of 50% with global hypokinesia Mild protein calorie malnutrition Hyponatremia resolved Patient received 1 unit of PRBC this morning due to low hemoglobin of 6.6 Continue antibiotics in the form of meropenem as per ID recommendation Vascular surgery on board for debridement Continue with his poorly controlled diabetes continue with the rest of his medication regimen 12/14/2024 the patient did have a low-grade fever 100.7 at midnight however denies any fever or any chills this morning, patient is breathing comfortably on room air, the patient denies chest pain shortness of breath and no significant cough, patient denies abdominal pain, no nausea vomiting or diarrhea, pain to the left foot is controlled wants to go back to the skilled nursing. No new lab has been obtained today blood culture repeat has been negative. patient with complicated history with multiple comorbidities with a nonhealing ulcer to the left lower extremity along with a PAD with recent extensive vascular surgery and also have debridement of the wound with a culture done on 11/14/2024 positive for ESBL Klebsiella Pseudomonas and MRSA patient local culture currently growing ESBL Klebsiella Burkholderia and Pseudomonas with the patient is covered with the meropenem patient did have PICC line placement and is currently being treated with the meropenem plan is for total 6-week course of therapy and a close outpatient follow-up 12/15/2024; patient has been cleared for discharge by infectious disease with recommendations to continue with IV cefepime to complete a 6-week therapy; discharge patient to skilled rehab Patient Condition at Discharge: Fair Plan - Discharge Summary Discharge Rx Participant: Yes New Discharge Prescriptions: New Meropenem [Merrem] 1 gm IVPB Q8H #120 each Meropenem [Merrem] 1 gm IVPB Q8HR each Continue Sennosides-Docusate Sodium [Senokot-S] 1 tab PO BID@799,1999 Acetaminophen Tab [Tylenol] 650 mg PO Q4H PRN PRN Reason: Pain NIFEdipine XL [Procardia XL] 60 mg PO BID@799,1999 Chlorthalidone [Hygroton] 25 mg PO DAILY@599 Amino Acids/Protein Hydrolys [Pro-Stat Awc Liquid] 30 ml PO BID@799,1999 Insulin Glargine (Lantus) [Lantus Vial] 14 unit SQ HS@1999 Insulin Lispro [humaLOG Kwikpen] See Protocol SQ AC-TID@,, polyethylene glycoL 3350 [Miralax] 17 gm PO DAILY PRN 7 Days #7 packet PRN Reason: Constipation House Supplement 120 ml PO TID@,, cloNIDine HCL [Catapres] 0.1 mg PO TID@0600,1400,2200 Losartan [Cozaar] 25 mg PO DAILY@0800 HYDROcodone/APAP 10-325MG [Baskin 10-325] 1 tab PO Q4HR PRN 3 Days #10 tab PRN Reason: pain 6-10 Gabapentin [Neurontin] 300 mg PO TID@0600,1400,2200 Aspirin EC [Ecotrin Low Dose] 81 mg PO DAILY@0800 Ezetimibe [Zetia] 10 mg PO HS@1999 Magnesium Oxide [Mag-Ox] 400 mg PO DAILY@0800 carvediloL [Coreg] 25 mg PO BID@799,1999 Sennosides [Senokot] 8.6 mg PO BID@799,1999 Discharge Medication List Acetaminophen Tab [Tylenol] 650 mg PO Q4H PRN 05/25/24 [History] Aspirin EC [Ecotrin Low Dose] 81 mg PO DAILY@0800 05/25/24 [History] Gabapentin [Neurontin] 300 mg PO TID@0600,1400,2200 05/25/24 [History] Sennosides-Docusate Sodium [Senokot-S] 1 tab PO BID@08,199905/25/24 [History] Amino Acids/Protein Hydrolys [Pro-Stat Awc Liquid] 30 ml PO BID@0800,199911/04/24 [History] Chlorthalidone [Hygroton] 25 mg PO DAILY@0600 11/04/24 [History] Ezetimibe [Zetia] 10 mg PO HS@199911/04/24 [History] Insulin Glargine (Lantus) [Lantus Vial] 14 unit SQ HS@199911/04/24 [History] Magnesium Oxide [Mag-Ox] 400 mg PO DAILY@79911/04/24 [History] NIFEdipine XL [Procardia XL] 60 mg PO BID@08,199911/04/24 [History] Insulin Lispro [humaLOG Kwikpen] See Protocol SQ AC-TID@,,11/08/24 [History] polyethylene glycoL 3350 [Miralax] 17 gm PO DAILY PRN 7 Days #7 packet 11/16/24 [Rx] House Supplement 120 ml PO TID@08,12,18 12/08/24 [History] Losartan [Cozaar] 25 mg PO DAILY@0812/08/24 [History] Sennosides [Senokot] 8.6 mg PO BID@08,199912/08/24 [History] carvediloL [Coreg] 25 mg PO BID@08,199912/08/24 [History] cloNIDine HCL [Catapres] 0.1 mg PO TID@0600,1400,2200 12/08/24 [History] Meropenem [Merrem] 1 gm IVPB Q8H #120 each 12/14/24 [Rx] HYDROcodone/APAP 10-325MG [Baskin 10-325] 1 tab PO Q4HR PRN 3 Days #10 tab [Rx] Meropenem [Merrem] 1 gm IVPB Q8HR each 12/15/24 [Rx] Follow up Appointment(s)/Referral(s): Jade Schroeder DO [Primary Care Provider] - 1-2 days Estela Marques DO [STAFF PHYSICIAN] - 2 Weeks Tee Batista MD [STAFF PHYSICIAN] - 1 Week Ambulatory/Diagnostic Orders: Basic Metabolic Panel [LAB.AMB] Location: None Selected C Reactive Protein [LAB.AMB] Location: None Selected Complete Blood Count w/diff [LAB.AMB] Location: None Selected Erythrocyte Sedimentation Rate [LAB.AMB] Location: None Selected Activity/Diet/Wound Care/Special Instructions: wet to dry dressing change daily. Discharge Disposition: TRANSFER TO SNF/ECF
[2024-12-15 13:21] VITALS: BP 162/72; PULSE 62; RESP 17; TEMP 98
--- NOTE | 2024-12-15 13:49 | P.PN ---
Subjective Progress Note Date: 12/15/24 Principal diagnosis: Reason for follow-up is left diabetic foot infection Patient is a 59-year-old -[place] male with a past medical history significant for Atrial Fibrillation, Asthma, Coronary Artery Disease (CAD), Heart Failure, Diabetes Mellitus, Deep Vein Thrombosis (DVT), Eye Disorder, Hyperlipidemia, Hypertension, Myocardial Infarction ([place]), Pneumonia, Renal Dis ease, Vascular Disorder did have right jwbnl-[id number] amputation and recently underwent left femoral to posterior tibial vein bypass grafting along with left common femoral thromboendarterectomy along with debridement of his wound culture data was positive for multiple pathogen including MRSA Pseudomonas and ESBL Klebsiella and now admitted to hospital with a wound infection. Patient did have a sharp excisional debridement of the left lower extremity wound completed by vascular surgery on 12/10/2024. On today's evaluation that is 12/15/2024,the patient remains to be afebrile, patient is on room air not requiring supplemental oxygen and denies any shortness of breath no chest pain or cough.Patient denies having any nausea or vomiting, no abdominal pain and no diarrhea and pain to the left foot is currently controlled. Patient white count is 14.1, creatinine 0.9 blood culture has been negative Objective - Vital Signs Vital signs: Vital Signs Temp 98.3 F 12/15/24 07:08 Pulse 68 12/15/24 07:40 Resp 15 12/15/24 07:40 BP 150/71 12/15/24 07:08 Pulse Ox 98 12/15/24 07:08 FiO2 Intake & Output 12/14/24 12/15/24 12/15/24 18:59 06:59 18:59 Intake Total 360 Output Total 1200 Balance -1200 360 Weight 67.132 kg Intake: Oral 360 Output: Urine 1200 Other: Voiding Method External Catheter External Catheter External Catheter # Voids 2 3 - Exam GENERAL DESCRIPTION: Middle-age male lying in bed in no distress RESPIRATORY SYSTEM: Unlabored breathing , decreased breath sounds at bases HEART: S1 S2 regular rate and rhythm , ABDOMEN: Soft , no tenderness EXTREMITIES: Left foot wound is currently dressed - Labs CBC & Chem 7: 12/15/24 05:49 12/15/24 05:49 Labs: Abnormal Lab Results - Last 24 Hours (Table) 12/14/24 12/14/24 12/15/24 Range/Units 17:06 20:10 05:49 WBC 14.21 H (4.50-10.00) X 10*3/uL RBC 3.10 L (4.40-5.60) X 10*6/uL Hgb 8.4 L (13.0-17.0) g/dL Hct 26.9 L (39.6-50.0) % MCHC 31.2 L (32.0-37.0) g/dL Plt Count 549 H (140-440) X 10*3/uL MPV 9.4 L (9.5-12.2) FL Immature Gran # 0.11 H (0.00-0.04) X 10*3/uL Neutrophils # 10.99 H (1.80-7.70) X 10*3/uL Eosinophils # 0.36 H (0.04-0.35) X 10*3/uL Sodium (135-145) mmol/L Glucose (70-110) mg/dL POC Glucose (mg/dL) 241 H 250 H (70-110) mg/dL 12/15/24 12/15/24 12/15/24 Range/Units 05:49 06:17 11:06 WBC (4.50-10.00) X 10*3/uL RBC (4.40-5.60) X 10*6/uL Hgb (13.0-17.0) g/dL Hct (39.6-50.0) % MCHC (32.0-37.0) g/dL Plt Count (140-440) X 10*3/uL MPV (9.5-12.2) FL Immature Gran # (0.00-0.04) X 10*3/uL Neutrophils # (1.80-7.70) X 10*3/uL Eosinophils # (0.04-0.35) X 10*3/uL Sodium 132 L (135-145) mmol/L Glucose 292 H (70-110) mg/dL POC Glucose (mg/dL) 323 H 293 H (70-110) mg/dL Microbiology - Last 24 Hours (Table) 12/11/24 16:43 Blood Culture - Preliminary Blood Assessment and Plan (1) Diabetic infection of left foot Current Visit: Yes Status: Acute Code(s): E11.628 - TYPE 2 DIABETES MELLITUS WITH OTHER SKIN COMPLICATIONS; L08.9 - LOCAL INFECTION OF THE SKIN AND SUBCUTANEOUS TISSUE, UNSP SNOMED Code(s): 719451808 (2) Cellulitis of left foot Current Visit: Yes Status: Acute Code(s): L03.116 - CELLULITIS OF LEFT LOWER LIMB SNOMED Code(s): 61687684954547856 (3) Diabetic ulcer of left foot Current Visit: Yes Status: Acute Code(s): E11.621 - TYPE 2 DIABETES MELLITUS WITH FOOT ULCER; L97.529 - NON-PRESSURE CHRONIC ULCER OTH PRT LEFT FOOT W UNSP SEVERITY SNOMED Code(s): 996605995 Plan: 1patient with complicated history with multiple comorbidities with a nonhealing ulcer to the left lower extremity along with a PAD with recent extensive vascular surgery and also have debridement of the wound with a culture done on 11/14/2024 positive for ESBL Klebsiella Pseudomonas and MRSA 2patient local culture currently growing ESBL Klebsiella Burkholderia and Pseudomonas with the patient is covered with the meropenem 3patient to continue with meropenem to finish total 6-week course of therapy and a close outpatient follow-up, question concern answered Dictation was produced using [employer] software. please excuse any grammatical, word or spelling errors. Time with Patient: Less than 30
--- NOTE | 2024-12-18 21:42 | CDI ---
Documentation Clarification Form Date: 12/18/2024 09:31:14 PM From: Peg Erickson Phone: Admit Date: 12/08/2024 12:10:00 PM Patient Name: Benny Ladd Visit Number: [id number] Discharge Date: 12/15/2024 04:59:00 PM ATTENTION: The Clinical Documentation Specialists (CDI) and [facility] Coding Staff appreciate your assistance in clarifying documentation. Please respond to the clarification below the line at the bottom and electronically sign. The CDI & [facility] Coding staff will review the response and follow-up if needed. Please note: Queries are made part of the Legal Health Record. If you have any questions, please contact the author of this message via ITS. Doctor/Provider: Preston Zaidi Unspecified CKD is documented Progress Note 12/12-12/14 and DC Summary. Additional clarification regarding the stage of CKD is requested. History/Risk Factors: 59yo M, IDDMII Poorly controlled w nonhealingwoundof left foot, ABLA sp amputation, HTN, A Fib, HLD, CKD, PDA, CDHF, mild PCM, hyponatremia Clinical Indicators: BUN: 12/09 19 12/10 16 12/11 17.2 12/12 18.8 12/13 20 12/15 14 CR: 12/09 0.90 12/10 1.06 12/11 1.1 12/12 1.0 12/13 0.91 12/15 0.9 GFR: 12/11 76 12/12 86 12/15 97 Treatment: monitored Please clarify the stage of the CKD, if known: [ ] CKD Stage 1 [ @@@ ] CKD Stage 2 [ ] Other, please specify [ ] Unable to determine Reference: [employer] Stage 1 eGFR = 90 and kidney damage for =3 months Stage 2 eGFR 60-89 and kidney damage for =3 months Stage 3a eGFR 45-59 and kidney damage for =3 months Stage 3b eGFR 30-44 and kidney damage for =3 months Stage 4 eGFR 15-29 r and kidney damage for =3 months Stage 5 eGFR <15 and kidney damage for =3 months (Template last revised: September 2023) MTDD
== END 2024-12-15 16:59 | DRG 617 ==
LOC: EC 11:48 → 4SSUR 12:10
PROVIDERS: ADMIT Hospitalist; ATTEND Hospitalist
PROC: 02HV33Z Insertion of Infusion Device into Superior Vena Cava, Percutaneous Approach (ICD-10-PCS; 2024-12-08)
PROC: 0JBR0ZZ Excision of Left Foot Subcutaneous Tissue and Fascia, Open Approach (ICD-10-PCS; principal; 2024-12-10 08:00)
PROC: 0Y6S0Z0 Detachment at Left 2nd Toe, Complete, Open Approach (ICD-10-PCS; principal; 2024-12-10 08:00)
PROC: 30233N1 Transfusion of Nonautologous Red Blood Cells into Peripheral Vein, Percutaneous Approach (ICD-10-PCS; 2024-12-12)
DX: E11.621 Type 2 diabetes mellitus with foot ulcer (principal); D62 Acute posthemorrhagic anemia; I70.262 Atherosclerosis of native arteries of extremities with gangrene, left leg; E44.1 Mild protein-calorie malnutrition; E87.1 Hypo-osmolality and hyponatremia; E11.52 Type 2 diabetes mellitus with diabetic peripheral angiopathy with gangrene; B96.5 Pseudomonas (aeruginosa) (mallei) (pseudomallei) as the cause of diseases classified elsewhere; B96.1 Klebsiella pneumoniae [K. pneumoniae] as the cause of diseases classified elsewhere; I50.32 Chronic diastolic (congestive) heart failure; I13.0 Hypertensive heart and chronic kidney disease with heart failure and stage 1 through stage 4 chronic kidney disease, or unspecified chronic kidney disease; L97.423 Non-pressure chronic ulcer of left heel and midfoot with necrosis of muscle; M86.8X7 Other osteomyelitis, ankle and foot; Z16.12 Extended spectrum beta lactamase (ESBL) resistance; L03.116 Cellulitis of left lower limb; Z89.611 Acquired absence of right leg above knee; E11.65 Type 2 diabetes mellitus with hyperglycemia; E11.628 Type 2 diabetes mellitus with other skin complications; E11.22 Type 2 diabetes mellitus with diabetic chronic kidney disease; E11.69 Type 2 diabetes mellitus with other specified complication; I48.91 Unspecified atrial fibrillation; Z79.4 Long term (current) use of insulin; N18.2 Chronic kidney disease, stage 2 (mild); I25.10 Atherosclerotic heart disease of native coronary artery without angina pectoris; B96.89 Other specified bacterial agents as the cause of diseases classified elsewhere; E78.5 Hyperlipidemia, unspecified; Z95.820 Peripheral vascular angioplasty status with implants and grafts; Z91.199 Patient's noncompliance with other medical treatment and regimen due to unspecified reason; Z79.82 Long term (current) use of aspirin; Z68.28 Body mass index [BMI] 28.0-28.9, adult; Z87.891 Personal history of nicotine dependence; Z86.718 Personal history of other venous thrombosis and embolism; I25.2 Old myocardial infarction; Z86.14 Personal history of Methicillin resistant Staphylococcus aureus infection; Z79.899 Other long term (current) drug therapy
CPT/HCPCS: 36415; 36573; 71045; 80048; 80053; 80202; 82565; 83036; 83605; 85025; 85652; 86140; 86850; 86900; 86901; 86920; 87040; 87070; 87075; 87077; 87186; 87205; 96365; 96366; 96375; 99285

== ENCOUNTER 2025-01-05 10:57 | Inpatient (IN) | payer MEDICARE, OTHER ==
[2025-01-04 09:45] VITALS: BMI 26.2
[~2025-01-05 10:57] MED LIST changes: -DEXAMETHASONE SOD PHOSPHATE 4 MG/ML 1 ML VIAL IV ONE; -GLYCOPYRROLATE 0.2 MG/ML 2 ML VIAL ONE; -HYDROmorphone 0.5 MG/0.5 ML SYRINGE IVP PRN; -LIDOCAINE 1% (10MG/ML) FOR IV START INTRADERMA PRN; -LIDOCAINE 1% INJ 10MG/ML (20 ML MDV) ONE; -MIDAZOLAM 2 MG/2 ML VIAL IV PRN; -MIDAZOLAM 2 MG/2 ML VIAL ONE; -PROPOFOL 10 MG/ML 20 ML VIAL IV ONE; -Pre Op ABX Message 1 EACH MISC MISCELLANE ONE; -ceFAZolin 1 GM/50 ML BAG (PMX) ONE; +ceFAZolin 2 GM in DEXTROSE 5% IN WATER 50 ML IVPB PRN; -ePHEDrine 50 MG/ML 1 ML VIAL ONE; -fentaNYL (PF) 50 MCG/ML 2 ML AMP IVP PRN; -fentaNYL (PF) 50 MCG/ML 2 ML AMP ONE
[2025-01-05] MEDS: IV FLUID CONTINUATION 1,000 ML IV ONE (12:01)
[2025-01-05] MEDS: ONDANSETRON 4 MG/2 ML VIAL IVP ONE (12:11)
[2025-01-05] MEDS: LACTATED RINGERS 1,000 ML IV SCH (12:12)
[2025-01-05 12:17] LABS: Glucose,Whole Blood 190 mg/dL (70-110)
--- NOTE | 2025-01-05 12:53 | P.HPIHPCON ---
History of Present Illness H&P Date: 01/05/25 Chief Complaint: Irreversible ischemia of left lower extremity Patient is a 59-year-old male with a longstanding history of tobacco abuse and diabetes mellitus status post right izqlp-szl-ipgc amputation who presents for left below the knee amputation secondary to nonhealing ulceration of the lateral aspect of the left foot. The patient has undergone multiple lower extremity revascularizations in the past including a femoral-popliteal bypass graft utilizing PTFE in the distant past as well as a more recent femoral to tibial bypass graft which did result in improvement in the arterial perfusion however the wound on the lateral aspect of his foot showed no signs of healing and in fact increased in size. The wound on the dorsum of his foot showed excellent wound healing characteristics. Because of the lateral foot wound being thought not to be healable the patient is offered a below the knee amputation. The procedure, risk and benefits have been discussed with the patient. All questions were answered to patient satisfaction. Consent for Procedure: I have explained the operation/procedure to the patient, including the risks, benefits, side effects, alternative therapies (including not receiving the proposed treatment or service), the likelihood of the patient achieving his/her goals, and potential recuperation problems for the procedure/sedation/analgesia, as well as any blood products, if indicated. I also explained to the patient the risks, benefits and side effects of the alternatives, as well as the risks related to not receiving the proposed procedure, care, treatment, or services. 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 Wounds L foot lateral & dorsum-wound care wet to dry dressing per [facility] [place]. PICC line L upper arm. NWB L foot-able to stand/pivot transfers, obtaining therapy at [facility] and learning to walk with prosthesis on R AKA, hx uvitis glaucoma rt eye, PVD, dvt to lower left leg, anemia,acute kidney failure in past, paroxysmal afib Last Myocardial Infarction Date:: unknown History of Any Multi-Drug Resistant Organisms: ESBL, MRSA Date of last positivie culture/infection: 11/14/24 MDRO Source:: Left leg/foot Past Surgical History: Hernia Repair, Orthopedic Surgery Additional Past Surgical History / Comment(s): L fem-pop bypass X2-most recent 11/14/24. L foot wound debridement 11/07/24, 11/14/24, 12/10/24. Aortogram w/ runnoff, eye surg, B/L knee SX, left vein stripping in 02/2020 x2, vein graft and toe amputation R AKA 05/2024, amputation 1st & 2nd digits L foot. Past Anesthesia/Blood Transfusion Reactions: No Reported Reaction Additional Past Anesthesia/Blood Transfusion Reaction / Comment(s): no problems with prior blood transfusion Smoking Status: Former smoker - Past Family History Mother History Unknown: Yes Brother(s) Family Medical History: COPD Additional Family Medical History / Comment(s): passed from COPD Father Family Medical History: Myocardial Infarction (DC) Additional Family Medical History / Comment(s): passed from DC Medications and Allergies Home Medications Medication Instructions Recorded Confirmed Type Acetaminophen Tab [Tylenol] 650 mg PO Q4H PRN 05/25/24 01/05/25 History Aspirin EC [Ecotrin Low Dose] 81 mg PO DAILY@0800 05/25/24 01/05/25 History Gabapentin [Neurontin] 300 mg PO TID@0600,1400,2200 05/25/24 01/05/25 History Sennosides-Docusate Sodium 1 tab PO BID@0800,199905/25/24 01/05/25 History [Senokot-S] Amino Acids/Protein Hydrolys 30 ml PO BID@0800,199911/04/24 01/05/25 History [Pro-Stat Awc Liquid] Chlorthalidone [Hygroton] 25 mg PO DAILY@0600 11/04/24 01/05/25 History Ezetimibe [Zetia] 10 mg PO HS@199911/04/24 01/05/25 History Insulin Glargine (Lantus) [Lantus 14 unit SQ HS@199911/04/24 01/05/25 History Vial] Magnesium Oxide [Mag-Ox] 400 mg PO DAILY@0800 11/04/24 01/05/25 History NIFEdipine XL [Procardia XL] 60 mg PO BID@0800,199911/04/24 01/05/25 History Insulin Lispro [humaLOG Kwikpen] See Protocol SQ AC-TID@07,,11/08/24 01/05/25 History polyethylene glycoL 3350 [Miralax] 17 gm PO DAILY PRN 7 Days #7 packet 11/16/24 01/05/25 Rx House Supplement 120 ml PO TID@08,12,18 12/08/24 01/05/25 History Losartan [Cozaar] 25 mg PO DAILY@0800 12/08/24 01/05/25 History Sennosides [Senokot] 8.6 mg PO BID@0800,199912/08/24 01/05/25 History carvediloL [Coreg] 25 mg PO BID@0800,199912/08/24 01/05/25 History cloNIDine HCL [Catapres] 0.1 mg PO TID@0600,1400,2200 12/08/24 01/05/25 History HYDROcodone/APAP 10-325MG [[place] 1 tab PO Q4HR PRN 3 Days #10 tab 12/15/24 01/05/25 Rx 10-325] 0.9 % Sodium Chloride [Sodium 10 ml IV Q12H 01/04/25 01/05/25 History Chloride Flush] Meropenem [Merrem] 1 gm IVPB TID 01/04/25 01/05/25 History Allergies Allergy/AdvReac Type Severity Reaction Status Date / Time atorvastatin [From Lipitor] Allergy Swelling Verified 01/05/25 11:34 ibuprofen Allergy Swelling Verified 01/05/25 11:34 pregabalin [From Lyrica] Allergy Swelling Verified 01/05/25 11:34 Surgical - Exam Osteopathic Statement: *. No significant issues noted on an osteopathic structural exam other than those noted in the History and Physical/Consult. Vital Signs Temp Pulse Resp BP Pulse Ox 97.1 F L 57 L 18 112/55 97 01/05/25 11:24 01/05/25 11:24 01/05/25 11:24 01/05/25 11:24 01/05/25 11:24 Patient Seen Date: 01/05/25 Patient Seen Time: 12:50 - General well developed - Neck no masses, no bruits - Respiratory normal expansion, normal respiratory effort, clear to auscultation - Cardiovascular Rhythm: regular - Abdomen Abdomen: soft, non tender - Genitourinary normal penis with no external lesions - Integumentary no rash (The patient's left foot demonstrates a nonhealing wound on the lateral aspect which demonstrates no granular tissue and measures 10 x 5.5 cm in length and width and approximately 6 mm in depth.) - Neurologic normal coordination Patient's left foot demonstrates 2 wounds 1 on the dorsum of the foot and one laterally. The wound on the dorsal surface measures 9 x 6 cm and demonstrates excellent granulation tissue however the wound on the lateral aspect which measures 10 x 5.5 cm in length and width and approximately 5 to 6 mm in depth demonstrates no evidence of healing. Malodor is also noted from this area. Results - Labs Abnormal Lab Results - Last 24 Hours (Table) 01/05/25 Range/Units 12:01 POC Glucose (mg/dL) 190 H (70-110) mg/dL Assessment and Plan Assessment: 1: Nonhealing ulceration lateral aspect of the left foot status post revascularization. 2: Poorly controlled diabetes mellitus. 3: Atrial fibrillation. 4: Hypertension. 5: Hyperlipidemia. 6: Coronary artery disease with history of myocardial infarction. 7: Chronic kidney disease. Plan: Left below the knee amputation. Time with Patient: Less than 30
[2025-01-05] MEDS ORDERED: PROPOFOL 10 MG/ML 20 ML VIAL IV ONE (12:54)
[2025-01-05] MEDS ORDERED: LIDOCAINE 1% INJ 10MG/ML (20 ML MDV) ONE (12:54)
[2025-01-05] MEDS ORDERED: ePHEDrine 50 MG/ML 1 ML VIAL ONE (12:54)
[2025-01-05] MEDS ORDERED: fentaNYL (PF) 50 MCG/ML 2 ML AMP ONE (12:54)
[2025-01-05] MEDS: ceFAZolin 2,000 MG in SODIUM CHLORIDE 0.9% 500 ML IRRIGATION ONE (13:22)
[2025-01-05] MEDS: HYDROmorphone 0.5 MG/0.5 ML SYRINGE IVP PRN (14:39)
[2025-01-05 14:44] LABS: Glucose,Whole Blood 170 mg/dL (70-110)
--- NOTE | 2025-01-05 14:57 | P.OP ---
Date of Procedure: 01/05/25 Preoperative Diagnosis: Irreversible ischemia left foot/nonhealing wound left foot. Postoperative Diagnosis: Same. Procedure(s) Performed: Left below the knee amputation. Anesthesia: MERLEA Surgeon: Stephen Dennison Estimated Blood Loss (ml): 100 Pathology: other (Amputated portion left lower extremity.) Condition: stable Disposition: floor Indications for Procedure: Patient is a 59-year-old male with multiple medical problems including longstanding history of diabetes mellitus, tobacco abuse as well as peripheral vascular disease. The patient developed a wounds of his left foot for which he eventually underwent bypass. The wound on the dorsum of his foot was healing well however the wound on the lateral aspect of the wound was irreversibly ischemic and eroded down to the level of the metatarsal and phalangeal level. No further intervention was thought possible the patient was offered a left below the knee amputation. The procedure, risk and benefits were discussed. All questions were answered patient's satisfaction. Consent form was signed. Description of Procedure: Patient was brought to the operating placed in the supine position administered general endotracheal anesthesia delivered by the department of anesthesiology. Patient received intravenously administered prophylactic antibiotics in the perioperative phase. The left lower extremity was sterilely prepped and draped in the usual manner after a pneumatic tourniquet was placed at the upper thigh level. A transverse incision was made 10 cm below the tibial tuberosity and extended through the subcutaneous tissues. Hemostasis was achieved using electrocautery. The muscle groups of both the anterior and lateral compartments were divided with electrocautery. The incision was extended both medially and laterally in a linear fashion distally and then teed off posteriorly. Incision was deepened through the subcutaneous tissues. Periosteal elevator was utilized to elevate the periosteum of the tibia and a power saw was utilized to transect the tibia. The fibula was then similarly skeletonized and transected with a power saw blade. The neuro vascular bundle was identified and clamped and divided and ligated with Vicryl suture. The amputation was then completed along the posterior aspect of the tibia and fibula. The specimen was sent to pathology. The nerve was dissected free of investing tissues and transected as far proximally as possible after being ligated. The arterial and venous structures were also ligated with Vicryl suture. The wound was irrigated. The anterior border of the tibia was beveled with the power saw. Hemostasis was judged to be adequate. The posterior flap was brought anteriorly and the wound was closed at the fascial level with 2-0 Vicryl suture. Skin edges were reapproximated skin jason. Adaptic, fluffs, Kerlix and an David wrap were applied followed by a knee immobilizer. Patient awoke without apparent complication was transferred to recovery in satisfactory and stable condition.
[2025-01-05] MEDS: MEPERIDINE 25 MG/ML SYRINGE IVP STA (15:27)
[2025-01-05] MEDS ORDERED: polyethylene glycoL 3350 17 GM POWD.PACK PO PRN (15:45)
[2025-01-05] MEDS ORDERED: fentaNYL (PF) 50 MCG/ML 2 ML AMP IVP PRN (15:45)
[2025-01-05] MEDS ORDERED: ACETAMINOPHEN TAB 325 MG TAB PO PRN (15:45)
[2025-01-05] MEDS ORDERED: MEROPENEM 1 GM VIAL IVPB SCH (16:00)
[2025-01-05 16:58] LABS: Glucose,Whole Blood 165 mg/dL (70-110)
[2025-01-05] MEDS: DEXAMETHASONE SOD PHOSPHATE 4 MG/ML 1 ML VIAL IV ONE (18:27)
[2025-01-05] MEDS: MEROPENEM 1 GM in SODIUM CHLORIDE 0.9% 100 ML IVPB SCH (18:32)
[2025-01-05] MEDS: HYDROcodone/APAP 10-325MG 1 EACH TAB PO PRN (18:32)
[2025-01-05] MEDS: ceFAZolin 2 GM in DEXTROSE 5% IN WATER 50 ML IVPB SCH (18:32)
[2025-01-05] MEDS: INSULIN LISPRO (HumaLOG) 100 UNIT/ML 10 mL VL SQ SCH (18:40)
[2025-01-05 19:55] LABS: Glucose,Whole Blood 228 mg/dL (70-110)
[2025-01-05] MEDS ORDERED: NON FORMULARY DRUG (Amino Acids/Protein Hydrolys [Pro-Stat Awc Liquid] 887 ML Liquid) PO SCH (20:00)
[2025-01-05] MEDS: carvediloL 12.5 MG TAB PO SCH (21:37)
[2025-01-05] MEDS: GABAPENTIN 300 MG CAP PO SCH (21:38)
[2025-01-05] MEDS: cloNIDine HCL 0.1 MG TAB PO SCH (21:38)
[2025-01-05] MEDS: EZETIMIBE 10 MG TAB PO SCH (21:38)
[2025-01-05] MEDS: SENNOSIDES 8.6 MG TAB PO SCH (21:38)
[2025-01-05] MEDS: SENNOSIDES-DOCUSATE SODIUM 1 EACH TAB PO SCH (21:38)
[2025-01-05] MEDS: INSULIN GLARGINE (LANTUS) 100 UNIT/ML SYR SQ SCH (21:38)
[2025-01-05] MEDS: MORPHINE SULFATE 2 MG/ML SYRINGE IVP PRN (21:39)
[2025-01-06] MEDS: CHLORTHALIDONE 25 MG TAB PO SCH (05:47)
[2025-01-06 06:01] LABS: Glucose,Whole Blood 127 mg/dL (70-110)
[2025-01-06 08:36] LABS: HCT 25.6 % (39.6-50.0); HGB 8.1 g/dL (13.0-17.0); MCH 26.4 pg (27.0-32.0); MCHC 31.6 g/dL (32.0-37.0); MCV 83.4 fL (80.0-97.0); Mean Platelet Volume 8.9 fL (9.5-12.2); Platelet Count 385 10*3/uL (140-440); RBC 3.07 10*6/uL (4.40-5.60); RDW 14.9 % (11.5-14.5)
[2025-01-06] MEDS: ASPIRIN 81 MG PO SCH (08:49)
[2025-01-06] MEDS: MAGNESIUM OXIDE 400 MG TAB PO SCH (08:49)
[2025-01-06] MEDS: LOSARTAN 25 MG TAB PO SCH (08:49)
[2025-01-06 08:51] LABS: African American GFR (CKD) >90 (>60 ml/min/1.73 sqM); Anion Gap 7 mmol/L; Blood Urea Nitrogen 21 mg/dL (9-20); Calcium 8.5 mg/dL (8.4-10.2); Carbon Dioxide 26 mmol/L (22-30); Chloride 100 mmol/L (98-107); Glucose 154 mg/dL (74-99); Non-African American GFR(CKD) >90 (>60 ml/min/1.73 sqM); Potassium 4.6 mmol/L (3.5-5.1); Sodium 133 mmol/L (137-145)
[2025-01-06 11:16] LABS: Glucose,Whole Blood 189 mg/dL (70-110)
--- NOTE | 2025-01-06 13:04 | P.PN ---
Subjective Progress Note Date: 01/06/25 Principal diagnosis: Irreversible ischemia left lower extremity Patient is seen and examined today as a follow-up. He is postop day #1 for left below the knee amputation. Currently has dressing in place with David wrap and knee immobilizer. Patient states he does have quite a bit of pain but pain medication has been improving the pain. Patient is afebrile. WBC 9.9 hemoglobi n 8.1 platelet count 385,000 sodium 133 potassium 4.6 BUN 21 creatinine 0.7 glucose 154. Primary medical team consulted for medical management on patient. Objective - Vital Signs Vital signs: Vital Signs Temp 98.6 F 01/06/25 06:36 Pulse 64 01/06/25 06:36 Resp 18 01/06/25 06:36 BP 146/81 01/06/25 06:36 Pulse Ox 100 01/06/25 06:36 FiO2 Intake & Output 01/05/25 01/06/25 01/06/25 18:59 06:59 18:59 Intake Total 1001 Output Total 100 720 Balance 901 -720 Weight 67.13 kg Intake: IV 901 Oral 100 Output: Urine 720 Estimated Blood Loss 100 Other: Voiding Method Urinal # Voids 1 - Exam General appearance: The patient is alert, oriented, appears in no acute distress. HET: Head is normocephalic and atraumatic. Pupils are equal and reactive. Neck: Supple. Heart: Regular. Lungs: Equal expansion, normal respiratory effort. Abdomen: Soft, nondistended. Extremities: Right aavwh-oey-skhy amputation well-healed. Left below the knee amputation with dressing clean dry and intact and knee immobilizer in place. Neurological: No focal deficits. Alert and oriented. - Labs CBC & Chem 7: 01/06/25 08:25 01/06/25 08:25 Labs: Abnormal Lab Results - Last 24 Hours (Table) 01/05/25 01/05/25 01/05/25 Range/Units 12:01 14:42 16:56 RBC (4.40-5.60) 10*6/uL Hgb (13.0-17.0) g/dL Hct (39.6-50.0) % MCH (27.0-32.0) pg MCHC (32.0-37.0) g/dL RDW (11.5-14.5) % MPV (9.5-12.2) fL Sodium (137-145) mmol/L BUN (9-20) mg/dL Glucose (74-99) mg/dL POC Glucose (mg/dL) 190 H 170 H 165 H (70-110) mg/dL 01/05/25 01/06/25 01/06/25 Range/Units 19:53 06:00 08:25 RBC 3.07 L (4.40-5.60) 10*6/uL Hgb 8.1 L (13.0-17.0) g/dL Hct 25.6 L (39.6-50.0) % MCH 26.4 L (27.0-32.0) pg MCHC 31.6 L (32.0-37.0) g/dL RDW 14.9 H (11.5-14.5) % MPV 8.9 L (9.5-12.2) fL Sodium (137-145) mmol/L BUN (9-20) mg/dL Glucose (74-99) mg/dL POC Glucose (mg/dL) 228 H 127 H (70-110) mg/dL 01/06/25 Range/Units 08:25 RBC (4.40-5.60) 10*6/uL Hgb (13.0-17.0) g/dL Hct (39.6-50.0) % MCH (27.0-32.0) pg MCHC (32.0-37.0) g/dL RDW (11.5-14.5) % MPV (9.5-12.2) fL Sodium 133 L (137-145) mmol/L BUN 21 H (9-20) mg/dL Glucose 154 H (74-99) mg/dL POC Glucose (mg/dL) (70-110) mg/dL Assessment and Plan Assessment: 1. Postop day #1 for left below the knee amputation 2. Irreversible ischemia of left lower extremity despite prior revascularization 3. Nonhealing ulceration left foot 4. Diabetes mellitus Plan: 1. Keep knee immobilizer in place 2. Change dressing to left below the knee amputation daily or as needed starting 01/07/2025 with Adaptic, 4 x 4 and Kerlix 3. Referral to [facility] for [facility] youth care specialist and rigid dressing. Prescription given to case management. 4. Consult to physical therapy 5. Continue with pain management 6. Discontinue meropenem 7. Plan is for patient to be discharged back to [facility] 8. Medical team consulted for medical management The impression and plan of care has been dictated as directed. I performed a history and examination of this patient, discussed the same with the dictator. I agree with the dictator's note ,documented as a scribe. Any additional findings or plans will be noted.
--- NOTE | 2025-01-06 14:40 | P.CONS ---
History of Present Illness - History of Present Illness Patient is admitted for left below-knee amputation patient has David wrap and knee immobilizer at this time. Patient is afebrile denies any fever chills nausea vomitings complaining of significant pain in the right leg and the surgical stump area patient has a right-sided above-knee amputation. Patient serum sodium is slightly low vitals are stable at this time REVIEW OF SYSTEMS: All other systems are negative except those mentioned in the HPI PHYSICAL EXAMINATION: GENERAL: The patient is alert and oriented x3, not in any acute distress. Well developed, well nourished. HEENT: Pupils are round and equally reacting to light. EOMI. No scleral icterus. No conjunctival pallor. Normocephalic, atraumatic. No pharyngeal erythema. No thyromegaly. CARDIOVASCULAR: S1 and S2 present. No murmurs, rubs, or gallops. PULMONARY: Chest is clear to auscultation, no wheezing or crackles. ABDOMEN: Soft, nontender, nondistended, normoactive bowel sounds. No palpable organomegaly. MUSCULOSKELETAL: No joint swelling or deformity. Amputations as mentioned above EXTREMITIES: No cyanosis, clubbing, or pedal edema. NEUROLOGICAL: Gross neurological examination did not reveal any focal deficits. SKIN: No rashes. Assessment and plan -Left below-knee amputation: Postoperative management as per primary service - Type 2 diabetes mellitus patient is on long-acting insulin which will be continued along with sliding scale insulin - Hypertension blood pressure is fairly well-controlled with his home regimen of chlorthalidone which may be contributing to his mild hyponatremia Coreg, losartan, nifedipine 3 times a day - Diabetic peripheral neuropathy for which patient is on gabapentin -Coronary artery disease - Peripheral vascular disease DVT prophylaxis: As per primary service Past Medical History Past Medical History: Atrial Fibrillation, Asthma, Coronary Artery Disease (CAD), Heart Failure, Diabetes Mellitus, Deep Vein Thrombosis (DVT), Eye Disorder, Hyperlipidemia, Hypertension, Myocardial Infarction (OR), Pneumonia, Renal Disease, Vascular Disorder Additional Past Medical History / Comment(s): MRSA-in contact isolation. Wounds L foot lateral & dorsum-wound care wet to dry dressing per [facility]. PICC line L upper arm. NWB L foot-able to stand/pivot transfers, obtaining therapy at [facility] and learning to walk with prosthesis on R AKA, hx uvitis glaucoma rt eye, PVD, dvt to lower left leg, anemia,acute kidney failure in past, paroxysmal afib Last Myocardial Infarction Date:: unknown History of Any Multi-Drug Resistant Organisms: ESBL, MRSA Year Discovered:: 11/14/24 MDRO Source:: Left leg/foot Past Surgical History: Hernia Repair, Orthopedic Surgery Additional Past Surgical History / Comment(s): L fem-pop bypass X2-most recent 11/14/24. L foot wound debridement 11/07/24, 11/14/24, 12/10/24. Aortogram w/ runnoff, eye surg, B/L knee SX, left vein stripping in 02/2020 x2, vein graft and toe amputation R AKA 05/2024, amputation 1st & 2nd digits L foot. Past Anesthesia/Blood Transfusion Reactions: No Reported Reaction Additional Past Anesthesia/Blood Transfusion Reaction / Comm: no problems with prior blood transfusion Smoking Status: Former smoker - Past Family History Mother History Unknown: Yes Brother(s) Family Medical History: COPD Additional Family Medical History / Comment(s): passed from COPD Father Family Medical History: Myocardial Infarction (OR) Additional Family Medical History / Comment(s): passed from [place] Medications and Allergies Home Medications Medication Instructions Recorded Confirmed Type Acetaminophen Tab [Tylenol] 650 mg PO Q4H PRN 05/25/24 01/05/25 History Aspirin EC [Ecotrin Low Dose] 81 mg PO DAILY@0800 05/25/24 01/05/25 History Gabapentin [Neurontin] 300 mg PO TID@0600,1400,2200 05/25/24 01/05/25 History Sennosides-Docusate Sodium 1 tab PO BID@08,199905/25/24 01/05/25 History [Senokot-S] Amino Acids/Protein Hydrolys 30 ml PO BID@0800,199911/04/24 01/05/25 History [Pro-Stat Awc Liquid] Chlorthalidone [Hygroton] 25 mg PO DAILY@0600 11/04/24 01/05/25 History Ezetimibe [Zetia] 10 mg PO HS@199911/04/24 01/05/25 History Insulin Glargine (Lantus) [Lantus 14 unit SQ HS@199911/04/24 01/05/25 History Vial] Magnesium Oxide [Mag-Ox] 400 mg PO DAILY@0800 11/04/24 01/05/25 History NIFEdipine XL [Procardia XL] 60 mg PO BID@799,199911/04/24 01/05/25 History Insulin Lispro [humaLOG Kwikpen] See Protocol SQ AC-TID@,,11/08/24 01/05/25 History polyethylene glycoL 3350 [Miralax] 17 gm PO DAILY PRN 7 Days #7 packet 11/16/24 01/05/25 Rx House Supplement 120 ml PO TID@08,,12/08/24 01/05/25 History Losartan [Cozaar] 25 mg PO DAILY@0800 12/08/24 01/05/25 History Sennosides [Senokot] 8.6 mg PO BID@0800,199912/08/24 01/05/25 History carvediloL [Coreg] 25 mg PO BID@08,199912/08/24 01/05/25 History cloNIDine HCL [Catapres] 0.1 mg PO TID@0600,1400,2200 12/08/24 01/05/25 History HYDROcodone/APAP 10-325MG [[place] 1 tab PO Q4HR PRN 3 Days #10 tab 12/15/24 01/05/25 Rx 10-325] 0.9 % Sodium Chloride [Sodium 10 ml IV Q12H 01/04/25 01/05/25 History Chloride Flush] Meropenem [Merrem] 1 gm IVPB TID 01/04/25 01/05/25 History Allergies Allergy/AdvReac Type Severity Reaction Status Date / Time atorvastatin [From Lipitor] Allergy Swelling Verified 01/05/25 11:34 ibuprofen Allergy Swelling Verified 01/05/25 11:34 pregabalin [From Lyrica] Allergy Swelling Verified 01/05/25 11:34 Physical Exam Vitals: Vital Signs Temp Pulse Pulse Resp BP Pulse Ox 01/06/25 14:00 98.8 F 78 17 122/72 100 01/06/25 07:55 18 01/06/25 06:36 98.6 F 64 18 146/81 100 01/06/25 01:11 98.8 F 62 17 165/71 98 01/05/25 18:59 98.0 F 72 17 175/70 100 01/05/25 15:45 62 16 147/65 100 01/05/25 15:30 64 16 156/90 97 01/05/25 15:15 61 16 153/67 97 01/05/25 15:00 64 14 151/60 97 01/05/25 14:42 62 14 145/63 100 Intake and Output 01/05/25 01/06/25 01/06/25 22:59 06:59 14:59 Intake Total 100 Output Total 420 300 Balance -320 -300 Intake: Oral 100 Output: Urine 420 300 Other: Voiding Method Urinal Urinal # Voids 1 Weight 67.13 kg Results CBC & Chem 7: 01/06/25 08:25 01/06/25 08:25 Labs: Abnormal Lab Results - Last 24 Hours (Table) 01/05/25 01/05/25 01/05/25 Range/Units 14:42 16:56 19:53 RBC (4.40-5.60) 10*6/uL Hgb (13.0-17.0) g/dL Hct (39.6-50.0) % MCH (27.0-32.0) pg MCHC (32.0-37.0) g/dL RDW (11.5-14.5) % MPV (9.5-12.2) fL Sodium (137-145) mmol/L BUN (9-20) mg/dL Glucose (74-99) mg/dL POC Glucose (mg/dL) 170 H 165 H 228 H (70-110) mg/dL 01/06/25 01/06/25 01/06/25 Range/Units 06:00 08:25 08:25 RBC 3.07 L (4.40-5.60) 10*6/uL Hgb 8.1 L (13.0-17.0) g/dL Hct 25.6 L (39.6-50.0) % MCH 26.4 L (27.0-32.0) pg MCHC 31.6 L (32.0-37.0) g/dL RDW 14.9 H (11.5-14.5) % MPV 8.9 L (9.5-12.2) fL Sodium 133 L (137-145) mmol/L BUN 21 H (9-20) mg/dL Glucose 154 H (74-99) mg/dL POC Glucose (mg/dL) 127 H (70-110) mg/dL 01/06/25 Range/Units 11:14 RBC (4.40-5.60) 10*6/uL Hgb (13.0-17.0) g/dL Hct (39.6-50.0) % MCH (27.0-32.0) pg MCHC (32.0-37.0) g/dL RDW (11.5-14.5) % MPV (9.5-12.2) fL Sodium (137-145) mmol/L BUN (9-20) mg/dL Glucose (74-99) mg/dL POC Glucose (mg/dL) 189 H (70-110) mg/dL
[2025-01-06 16:20] LABS: Glucose,Whole Blood 254 mg/dL (70-110)
[2025-01-06 20:32] LABS: Glucose,Whole Blood 183 mg/dL (70-110)
[2025-01-07 06:21] LABS: Glucose,Whole Blood 173 mg/dL (70-110)
[2025-01-07 12:11] LABS: Glucose,Whole Blood 277 mg/dL (70-110)
--- NOTE | 2025-01-07 13:25 | P.PN ---
Subjective Progress Note Date: 01/07/25 Patient is admitted for left below-knee amputation patient has David wrap and knee immobilizer at this time. Patient is afebrile denies any fever chills nausea vomitings complaining of significant pain in the right leg and the surgical stump area patient has a right-sided above-knee amputation. Patient serum sodium is slightly low vitals are stable at this time 01/07. Patient seen and examined. No acute issue overnight. Vital signs stable. Pain is under control. REVIEW OF SYSTEMS: CONSTITUTIONAL: No fever, no malaise,. CARDIOVASCULAR: No chest pain, no palpitations, no syncope. PULMONARY: No shortness of breath, no cough, GASTROINTESTINAL: No diarrhea, no nausea, no vomiting, no abdominal pain. NEUROLOGICAL: No headaches, no weakness, PHYSICAL EXAMINATION: GENERAL: The patient is alert and oriented x3, not in any acute distress. Well developed, well nourished. HEENT: Pupils are round and equally reacting to light. EOMI. No scleral icterus. No conjunctival pallor. Normocephalic, atraumatic. No pharyngeal erythema. No thyromegaly. CARDIOVASCULAR: S1 and S2 present. No murmurs, rubs, or gallops. PULMONARY: Chest is clear to auscultation, no wheezing or crackles. ABDOMEN: Soft, nontender, nondistended, normoactive bowel sounds. No palpable organomegaly. MUSCULOSKELETAL: Left BKA EXTREMITIES: No cyanosis, clubbing, or pedal edema. NEUROLOGICAL: Gross neurological examination did not reveal any focal deficits. SKIN: No rashes. Assessment and plan -Left below-knee amputation: Postoperative management as per primary service - Type 2 diabetes mellitus patient is on long-acting insulin which will be continued along with sliding scale insulin - Hypertension continue Coreg, losartan, nifedipine 3 times a day - Diabetic peripheral neuropathy for which patient is on gabapentin -Coronary artery disease - Peripheral vascular disease Labs and medication were reviewed.. Continue same treatment. Continue with symptomatic treatment. Resume home medication. Monitor labs and vitals. DVT and GI prophylaxis. Further recommendations as per clinical course of the patient Dictation was produced using [employer] dictation software. please excuse any grammatical, word or spelling errors. Objective - Vital Signs Vital signs: Vital Signs Temp 98.6 F 01/07/25 07:50 Pulse 70 01/07/25 07:50 Resp 18 01/07/25 07:50 BP 146/72 01/07/25 07:50 Pulse Ox 99 01/07/25 07:50 FiO2 Intake & Output 01/06/25 01/07/25 01/07/25 18:59 06:59 18:59 Output Total 1600 600 Balance -1600 -600 Output: Urine 1600 600 Other: Voiding Method Urinal Urinal # Voids 2 - Labs CBC & Chem 7: 01/06/25 08:25 01/06/25 08:25 Labs: Abnormal Lab Results - Last 24 Hours (Table) 01/06/25 01/06/25 01/06/25 Range/Units 11:14 16:18 20:31 POC Glucose (mg/dL) 189 H 254 H 183 H (70-110) mg/dL 01/07/25 Range/Units 06:20 POC Glucose (mg/dL) 173 H (70-110) mg/dL
[2025-01-07] MEDS: MORPHINE SULFATE 2 MG/ML SYRINGE IVP PRN (15:44)
[2025-01-07 16:48] LABS: Glucose,Whole Blood 129 mg/dL (70-110)
[2025-01-07 20:50] LABS: Glucose,Whole Blood 279 mg/dL (70-110)
[2025-01-08 06:14] LABS: Glucose,Whole Blood 253 mg/dL (70-110)
[2025-01-08 10:54] LABS: Glucose,Whole Blood 193 mg/dL (70-110)
--- NOTE | 2025-01-08 14:12 | P.PN ---
Subjective Progress Note Date: 01/08/25 Patient is admitted for left below-knee amputation patient has David wrap and knee immobilizer at this time. Patient is afebrile denies any fever chills nausea vomitings complaining of significant pain in the right leg and the surgical stump area patient has a right-sided above-knee amputation. Patient serum sodium is slightly low vitals are stable at this time 01/07. Patient seen and examined. No acute issue overnight. Vital signs stable. Pain is under control. 01/08. Patient seen and examined. Pain is under control, denies any chest pain or shortness of breath. No nausea or vomiting. Vital signs REVIEW OF SYSTEMS: CONSTITUTIONAL: No fever, no malaise,. CARDIOVASCULAR: No chest pain, no palpitations, no syncope. PULMONARY: No shortness of breath, no cough, GASTROINTESTINAL: No diarrhea, no nausea, no vomiting, no abdominal pain. NEUROLOGICAL: No headaches, no weakness, PHYSICAL EXAMINATION: GENERAL: The patient is alert and oriented x3, not in any acute distress. Well developed, well nourished. HEENT: Pupils are round and equally reacting to light. EOMI. No scleral icterus. No conjunctival pallor. Normocephalic, atraumatic. No pharyngeal erythema. No thyromegaly. CARDIOVASCULAR: S1 and S2 present. No murmurs, rubs, or gallops. PULMONARY: Chest is clear to auscultation, no wheezing or crackles. ABDOMEN: Soft, nontender, nondistended, normoactive bowel sounds. No palpable organomegaly. MUSCULOSKELETAL: Right AKA, left BKA EXTREMITIES: No cyanosis, clubbing, or pedal edema. NEUROLOGICAL: Gross neurological examination did not reveal any focal deficits. SKIN: No rashes. Assessment and plan -Left below-knee amputation: Postoperative management as per primary service - Type 2 diabetes mellitus patient is on long-acting insulin which will be continued along with sliding scale insulin - Hypertension continue Coreg, losartan, nifedipine 3 times a day - Diabetic peripheral neuropathy for which patient is on gabapentin -Coronary artery disease - Peripheral vascular disease Labs and medication were reviewed.. Continue same treatment. Continue with symptomatic treatment. Resume home medication. Monitor labs and vitals. DVT and GI prophylaxis. Further recommendations as per clinical course of the patient Dictation was produced using [employer] software. please excuse any grammatical, word or spelling errors. Objective - Vital Signs Vital signs: Vital Signs Temp 98.1 F 01/08/25 07:15 Pulse 62 01/08/25 07:15 Resp 18 01/08/25 07:15 BP 132/60 01/08/25 07:15 Pulse Ox 97 01/08/25 07:15 FiO2 Intake & Output 01/07/25 01/08/25 01/08/25 18:59 06:59 18:59 Output Total 500 850 Balance -500 -850 Output: Urine 500 850 Other: Voiding Method Urinal - Labs CBC & Chem 7: 01/06/25 08:25 01/06/25 08:25 Labs: Abnormal Lab Results - Last 24 Hours (Table) 01/07/25 01/07/25 01/08/25 Range/Units 16:46 20:48 06:13 POC Glucose (mg/dL) 129 H 279 H 253 H (70-110) mg/dL 01/08/25 Range/Units 10:41 POC Glucose (mg/dL) 193 H (70-110) mg/dL
[2025-01-08 16:38] LABS: Glucose,Whole Blood 131 mg/dL (70-110)
[2025-01-08 20:36] LABS: Glucose,Whole Blood 358 mg/dL (70-110)
[2025-01-09 06:33] LABS: Glucose,Whole Blood 291 mg/dL (70-110)
[2025-01-09 09:24] VITALS: RESP 18
--- NOTE | 2025-01-09 10:08 | P.DS ---
Providers Date of admission: 01/05/25 10:57 Expected date of discharge: 01/09/25 Attending physician: Stephen Dennison DO Consults: 01/05/25 14:31 Consult Physician Routine Consulting Provider: Ruben Rios Consult Reason/Comments: medical management Do you want consulting provider notified?: Yes Primary care physician: Jade Schroeder DO Hospital Course: 59-year-old male with longstanding history of tobacco abuse and diabetes mellitus status post right cuvxz-rxu-[id number] amputation who was scheduled for left below the knee amputation secondary to nonhealing ulceration of the lateral aspect of the left foot. Patient had undergone multiple lower extremity revascularizations including a femoralpopliteal bypass graft utilizing PTFE in the distant past as well as more recent femoral to tibial bypass graft which did result in improvement in the arterial perfusion however wound on the lateral side foot showed no signs of healing despite wound care. Patient was scheduled for left below the knee amputation. He is postop day #4. Vital signs have been stable. He has been afebrile. He has been seen by physical therapy and is a two-person assist. Referral placed and order sent to [facility] for prostatic care placed. He was seen on Thursday and fitted for a stump cemetery vault installer and rigid dressing. Patient currently not wearing stump cemetery vault installer or rigid dress ing. States he does not want to wear it at this time. He does have a knee immobilizer in place. Incision is well-approximated with jason. No drainage noted. Exam General appearance: The patient is alert, oriented, appears in no acute distress. HET: Head is normocephalic and atraumatic. Pupils are equal and reactive. Neck: Supple. Heart: Regular. Lungs: Equal expansion, normal respiratory effort. Abdomen: Soft, nondistended. Extremities: Right vosrp-ozi-keua amputation well-healed. Left below the knee amputation incision site well-approximated with jason, without any drainage. There is an abrasion distal to the knee midline that patient states has been there prior to stump cemetery vault installer rigid dressing. Neurological: No focal deficits. Alert and oriented. Assessment 1. Left below the knee amputation 2. Nonhealing ulceration lateral aspect of left foot status post revascularization 3. Poorly controlled diabetes mellitus 4. Atrial fibrillation 5. Hypertension 6. Hyperlipidemia 7. Coronary artery disease with history of myocardial infarction 7. Chronic kidney disease 8. Anemia of chronic disease 9. History of tobacco use Plan Discharge to [facility]. Discussed with patient importance of compliance with stump cemetery vault installer and rigid dressing. [facility] to follow for prostatic care. Patient verbalizes understanding however still declines use at this time. Dressing changes as needed. Follow-up in 2 weeks with vascular surgery. PICC line can be removed. No further need for antibiotics at this time. The impression and plan of care has been dictated as directed. I performed a history and examination of this patient, discussed the same with the dictator. I agree with the dictator's note ,documented as a scribe. Any additional findings or plans will be noted. Procedures: Left below the knee amputation Patient Condition at Discharge: Stable Plan - Discharge Summary Discharge Rx Participant: No New Discharge Prescriptions: Continue Acetaminophen Tab [Tylenol] 650 mg PO Q4H PRN PRN Reason: Pain NIFEdipine XL [Procardia XL] 60 mg PO BID@08,1999 cloNIDine HCL [Catapres] 0.1 mg PO TID@0600,1400,2200 Losartan [Cozaar] 25 mg PO DAILY@0800 HYDROcodone/APAP 10-325MG [Ripley 10-325] 1 tab PO Q4HR PRN 3 Days #18 tab PRN Reason: pain 6-10 Gabapentin [Neurontin] 300 mg PO TID@0600,1400,2200 Aspirin EC [Ecotrin Low Dose] 81 mg PO DAILY@0800 Ezetimibe [Zetia] 10 mg PO HS@1999 carvediloL [Coreg] 25 mg PO BID@799,1999 Discontinued Meropenem [Merrem] 1 gm IVPB TID No Action Sennosides-Docusate Sodium [Senokot-S] 1 tab PO BID@799,1999 Chlorthalidone [Hygroton] 25 mg PO DAILY@0600 Amino Acids/Protein Hydrolys [Pro-Stat Awc Liquid] 30 ml PO BID@08,1999 Insulin Glargine (Lantus) [Lantus Vial] 14 unit SQ HS@1999 Insulin Lispro [humaLOG Kwikpen] See Protocol SQ AC-TID@,, polyethylene glycoL 3350 [Miralax] 17 gm PO DAILY PRN 7 Days #7 packet PRN Reason: Constipation House Supplement 120 ml PO TID@,,18 0.9 % Sodium Chloride [Sodium Chloride Flush] 10 ml IV Q12H Magnesium Oxide [Mag-Ox] 400 mg PO DAILY@0800 Sennosides [Senokot] 8.6 mg PO BID@799,1999 Discharge Medication List Acetaminophen Tab [Tylenol] 650 mg PO Q4H PRN 05/25/24 [History] Aspirin EC [Ecotrin Low Dose] 81 mg PO DAILY@0800 05/25/24 [History] Gabapentin [Neurontin] 300 mg PO TID@0600,1400,219905/25/24 [History] Sennosides-Docusate Sodium [Senokot-S] 1 tab PO BID@799,199905/25/24 [History] Amino Acids/Protein Hydrolys [Pro-Stat Awc Liquid] 30 ml PO BID@799,199911/04/24 [History] Chlorthalidone [Hygroton] 25 mg PO DAILY@0611/04/24 [History] Ezetimibe [Zetia] 10 mg PO HS@199911/04/24 [History] Insulin Glargine (Lantus) [Lantus Vial] 14 unit SQ HS@199911/04/24 [History] Magnesium Oxide [Mag-Ox] 400 mg PO DAILY@79911/04/24 [History] NIFEdipine XL [Procardia XL] 60 mg PO BID@799,199911/04/24 [History] Insulin Lispro [humaLOG Kwikpen] See Protocol SQ AC-TID@,,11/08/24 [History] polyethylene glycoL 3350 [Miralax] 17 gm PO DAILY PRN 7 Days #7 packet 11/16/24 [Rx] House Supplement 120 ml PO TID@08,,12/08/24 [History] Losartan [Cozaar] 25 mg PO DAILY@79912/08/24 [History] Sennosides [Senokot] 8.6 mg PO BID@799,199912/08/24 [History] carvediloL [Coreg] 25 mg PO BID@08,199912/08/24 [History] cloNIDine HCL [Catapres] 0.1 mg PO TID@0600,1400,2200 12/08/24 [History] 0.9 % Sodium Chloride [Sodium Chloride Flush] 10 ml IV Q12H 01/04/25 [History] HYDROcodone/APAP 10-325MG [Ripley 10-325] 1 tab PO Q4HR PRN 3 Days #18 tab 01/09/25 [Rx] Follow up Appointment(s)/Referral(s): Stephen Dennison DO [Doctor of Osteopathic Medicine] - 2 Weeks Activity/Diet/Wound Care/Special Instructions: Stump cemetery vault installer and rigid dressing to left BKA, use as directed per prosthetic company [employer] Dressing change as needed with 4 x 4, Kerlix then apply stump cemetery vault installer and rigid dressing ok to shower but no baths, pools, soaking in tubs for until cleared by surgeon to avoid risk of infection. signs of infection ie: fever, rash, drainage from surgical site, swelling contact doctor or return to ER immediately. Heavy bleeding from incision site apply firm direct pressure and return to ER. Do not attempt to drive self. Heart healthy, consistent carbohydrate diet Discharge Disposition: TRANSFER TO SNF/ECF
[2025-01-09 11:20] LABS: Glucose,Whole Blood 198 mg/dL (70-110)
[2025-01-09 14:54] VITALS: BP 124/67; PULSE 64; TEMP 97.7
[2025-01-09 17:01] LABS: Glucose,Whole Blood 289 mg/dL (70-110)
== END 2025-01-09 18:34 | DRG 617 ==
LOC: 2ORMAIN 10:57 → 4SSUR 15:18
PROVIDERS: ADMIT Surgery; ATTEND Surgery
PROC: 0Y6J0Z1 Detachment at Left Lower Leg, High, Open Approach (ICD-10-PCS; principal; 2025-01-05 13:00)
DX: E11.621 Type 2 diabetes mellitus with foot ulcer (principal); E11.52 Type 2 diabetes mellitus with diabetic peripheral angiopathy with gangrene; I13.0 Hypertensive heart and chronic kidney disease with heart failure and stage 1 through stage 4 chronic kidney disease, or unspecified chronic kidney disease; D63.1 Anemia in chronic kidney disease; J45.909 Unspecified asthma, uncomplicated; N18.9 Chronic kidney disease, unspecified; E87.1 Hypo-osmolality and hyponatremia; L97.522 Non-pressure chronic ulcer of other part of left foot with fat layer exposed; E11.22 Type 2 diabetes mellitus with diabetic chronic kidney disease; Z89.611 Acquired absence of right leg above knee; E11.42 Type 2 diabetes mellitus with diabetic polyneuropathy; I48.0 Paroxysmal atrial fibrillation; E11.65 Type 2 diabetes mellitus with hyperglycemia; Z79.4 Long term (current) use of insulin; I50.9 Heart failure, unspecified; I99.8 Other disorder of circulatory system; E78.5 Hyperlipidemia, unspecified; Z79.890 Hormone replacement therapy; I25.2 Old myocardial infarction; I25.10 Atherosclerotic heart disease of native coronary artery without angina pectoris; Z79.82 Long term (current) use of aspirin; Z79.899 Other long term (current) drug therapy; Z82.49 Family history of ischemic heart disease and other diseases of the circulatory system; Z87.891 Personal history of nicotine dependence; Z88.8 Allergy status to other drugs, medicaments and biological substances
CPT/HCPCS: 80048; 85027; 86850; 86900; 86901